=== PATIENT | male | born 1955 | race Caucasian/White ===

== ENCOUNTER 2018-01-20 01:32 | Inpatient (IN) | payer MEDICARE, OTHER ==
[2018-01-20 02:47] LABS: Basophils # (A) 0.1 k/uL (0-0.2); Basophils % (A) 1 %; Eosinophils # (A) 0.3 k/uL (0-0.7); Eosinophils % (A) 3 %; HCT 46.8 % (39.0-53.0); HGB 16.6 gm/dL (13.0-17.5); Lymphocytes # (A) 3.4 k/uL (1.0-4.8); Lymphocytes % (A) 37 %; MCH 31.5 pg (25.0-35.0); MCHC 35.4 g/dL (31.0-37.0); MCV 89.1 fL (80.0-100.0); Mean Platelet Volume 8.8; Monocytes # (A) 0.6 k/uL (0-1.0); Monocytes % (A) 6 %; Neutrophils # (A) 4.7 k/uL (1.3-7.7); Neutrophils % (A) 52 %; Platelet Count 170 k/uL (150-450); RBC 5.25 m/uL (4.30-5.90); RDW 13.1 % (11.5-15.5); WBC 9.1 k/uL (3.8-10.6)
[2018-01-20 02:55] LABS: D-Dimer 0.4 mg/L FEU (<0.60)
[2018-01-20 03:03] LABS: Partial Thromboplastin Time 25.6 sec (22.0-30.0); Prothrombin Time 10.3 sec (9.0-12.0)
[2018-01-20 03:05] LABS: Albumin 4.2 g/dL (3.5-5.0); Calcium 9.5 mg/dL (8.4-10.2); Total Bilirubin 0.8 mg/dL (0.2-1.3); Total Protein 7.7 g/dL (6.3-8.2)
[2018-01-20 03:12] LABS: Potassium 4.3 mmol/L (3.5-5.1)
[2018-01-20 03:23] LABS: Creatine Kinase MB 1.8 ng/mL (0.0-2.4)
[2018-01-20 03:27] LABS: Troponin I 0.04 ng/mL (0.000-0.034)
[2018-01-20] MEDS ORDERED: HEPARIN SODIUM,PORCINE 5,000 UNIT/ML 1 ML VIAL IV PRN (03:34)
[2018-01-20] MEDS ORDERED: HEPARIN SODIUM,PORCINE 5,000 UNIT/ML 1 ML VIAL IV ONE (03:34)
[2018-01-20] MEDS: HEPARIN SOD,PORK IN 0.45% NACL 25,000 UNIT in 0.45% NACL 1 500ML.BAG IV SCH ×2 (03:54→23:29)
[2018-01-20] MEDS ORDERED: NITROGLYCERIN SL TABS 0.4 MG TAB SUBLINGUAL PRN (05:33)
[2018-01-20] MEDS ORDERED: ERGOCALCIFEROL 50,000 UNIT CAP PO SCH (05:45)
[2018-01-20] MEDS ORDERED: HYDROcodone/APAP 10-325MG 1 EACH TAB PO ONE (06:32)
--- NOTE | 2018-01-20 07:23 | ED ---
Chest Pain HPI - General Chief Complaint: Shortness of Breath Stated Complaint: SOB Time Seen by Provider: 01/20/18 01:38 Source: patient, EMS Mode of arrival: EMS Limitations: no limitations - History of Present Illness Initial Comments: This patient is a 62-year-old man who is transferred here from [facility]. He had gone there tonight to be evaluated for chest pain. He indicates the pain had been going on for 2-3 days but did become worse tonight after some exertion. He indicates it across the bilateral upper chest, and it does radiate to his left arm. It is a tight or pressure feeling, constant, and earlier tonight it was moderate to severe, but currently the pain is gone. He had not noted relieving factors until he had some medication at the other hospital. The patient denied associated symptoms but he had been having some episodic shortness of breath for the past week or so. MD Complaint: chest pain Onset/Timin -: days(s) Onset: during rest Pain Location: left chest, right chest Pain Radiation: LUE Severity: moderate Quality: tightness Consistency: constant Improves With: nothing Worsens With: exertion Anginal Symptoms: dyspnea - Related Data Home Medications Medication Instructions Recorded Confirmed HYDROcodone/APAP 10-325MG [[place] 1 tab PO QID PRN 02/22/15 01/20/18 10-325] ALPRAZolam [Xanax] 2 mg PO TID PRN 02/23/15 01/20/18 Ergocalciferol (Vitamin D2) 50,000 unit PO Q30D 07/29/16 01/20/18 [Drisdol] Esomeprazole Magnesium [NexIUM] 20 mg PO DAILY 09/29/17 01/20/18 Gabapentin 600 mg PO BID 09/29/17 01/20/18 rOPINIRole HCL [Requip] 0.25 mg PO HS 09/29/17 01/20/18 Aspirin EC [Ecotrin] 325 mg PO DAILY 01/20/18 01/20/18 Metoprolol Tartrate [Lopressor] 25 mg PO BID 01/20/18 01/20/18 Naproxen [Naprosyn] 500 mg PO Q12HR 01/20/18 01/20/18 Previous Rx's Medication Instructions Recorded Clopidogrel [Plavix] 75 mg PO DAILY #30 tab 08/11/16 Allergies Allergy/AdvReac Type Severity Reaction Status Date / Time latex Allergy Swelling Verified 01/20/18 10:45 Review of Systems ROS Statement: Those systems with pertinent positive or pertinent negative responses have been documented in the HPI. ROS Other: All systems not noted in ROS Statement are negative. Constitutional: Denies: fever, chills Respiratory: Reports: as per HPI, dyspnea. Denies: cough, wheezes Cardiovascular: Reports: as per HPI, chest pain, dyspnea on exertion. Denies: palpitations, orthopnea, edema, syncope Gastrointestinal: Denies: abdominal pain, nausea, vomiting Genitourinary: Denies: dysuria, hematuria Musculoskeletal: Denies: back pain Skin: Denies: rash Neurological: Denies: headache, weakness, numbness Psychiatric: Reports: anxiety EKG Findings - EKG Results: EKG: interpreted by RYANNE, sinus rhythm (Rate proximally 63 bpm), normal axis - Blocks, [place], Hypertrophy, ST Abn: Repolarization changes or abnormalities: ST or T wave suggestive of ischemia (T inversions across the anterior leads V2 through V6, as well as lateral leads.) - MD, Pacemaker, Normal: Myocardial infarction: inferior MD (old age indeterminate) Past Medical History Past Medical History: Coronary Artery Disease (CAD), Chest Pain / Angina, COPD, GERD/Reflux, Hyperlipidemia, Hypertension, Musculoskeletal Disorder, Sleep Apnea /CPAP/BIPAP Additional Past Medical History / Comment(s): CHRONIC BACK PAIN, PAINFUL LT HIP W/ DROP FOOT. BRUISES EASILY. NO CPAP CURRENTLY. HEART STENTS X5, BUT NOT TAKING CV/HTN RX, RESUMED SMOKING - "IT LOWERS MY BLOOD PRESSURE." Last Myocardial Infarction Date:: UNKNOWN History of Any Multi-Drug Resistant Organisms: None Reported Past Surgical History: Back Surgery, Cholecystectomy, Coronary Bypass/CABG, Heart Catheterization With Stent, Orthopedic Surgery Additional Past Surgical History / Comment(s): Back surg x 2 with cage. Tennis elbow surg. HEART STENTS X5. Past Anesthesia/Blood Transfusion Reactions: No Reported Reaction Additional Past Anesthesia/Blood Transfusion Reaction / Comment(s): Pt received blood during CABG without reaction. Date of Last Stent Placement:: 02/24/15 Past Psychological History: Anxiety, Depression, PTSD Smoking Status: Current every day smoker Past Alcohol Use History: None Reported Past Drug Use History: None Reported - Past Family History Father Family Medical History: Coronary Artery Disease (CAD), Deep Vein Thrombosis (DVT ), GERD/Reflux, Hyperlipidemia Additional Family Medical History / Comment(s): Father of a MD in his 80's Mother Family Medical History: Coronary Artery Disease (CAD) Additional Family Medical History / Comment(s): Mother of a MD at the age of 76yrs. Sister(s) Family Medical History: Cancer General Exam Limitations: no limitations General appearance: alert, obese Head exam: Present: atraumatic, normocephalic Eye exam: Present: normal appearance. Absent: scleral icterus, conjunctival injection ENT exam: Present: normal oropharynx Neck exam: Present: normal inspection Respiratory exam: Present: normal lung sounds bilaterally. Absent: respiratory distress, wheezes, rales, rhonchi, stridor Cardiovascular Exam: Present: regular rate, normal rhythm, normal heart sounds. Absent: systolic murmur, diastolic murmur, rubs, gallop GI/Abdominal exam: Present: soft. Absent: distended, tenderness, guarding, rebound, mass Extremities exam: Present: normal inspection, normal capillary refill. Absent: pedal edema, calf tenderness Back exam: Present: normal inspection. Absent: CVA tenderness (R), CVA tenderness (L) Neurological exam: Present: alert Skin exam: Present: warm, dry, intact, normal color. Absent: rash Course Vital Signs 01/20/18 01/20/18 01/20/18 01:34 01:42 03:57 Temperature 97.0 F L Pulse Rate 66 65 Respiratory 16 18 16 Rate Blood Pressure 145/73 135/59 O2 Sat by Pulse 98 96 Oximetry 01/20/18 01/20/18 01/20/18 04:45 06:35 07:28 Temperature Pulse Rate 78 74 68 Respiratory 19 18 Rate Blood Pressure 148/82 135/74 O2 Sat by Pulse 97 98 97 Oximetry 01/20/18 01/20/18 01/20/18 10:09 12:53 15:30 Temperature 98.7 F Pulse Rate 69 80 80 Respiratory 18 16 Rate Blood Pressure 129/60 152/81 O2 Sat by Pulse 97 95 Oximetry 01/20/18 01/20/18 01/20/18 15:40 15:46 16:35 Temperature 97.1 F L Pulse Rate 85 84 97 Respiratory 18 16 Rate Blood Pressure 141/65 142/70 O2 Sat by Pulse 98 95 Oximetry Chest Pain MDM - MDM Patient is 62-year-old man transferred here for the etiology evaluation after he was seen at [facility]. The patient's repeat troponin is elevated at 0.4, and he started on heparin Critical Care Time Critical Care Time: Yes (30 minutes) Disposition Clinical Impression: Acute coronary syndrome Disposition: ADMITTED IP TO THIS HOSP Condition: Fair
[2018-01-20] MEDS: PANTOPRAZOLE 40 MG TABLET PO SCH (10:02)
[2018-01-20] MEDS: CLOPIDOGREL 75 MG TAB PO SCH (10:02)
[2018-01-20] MEDS: GABAPENTIN 300 MG CAP PO SCH ×3 (10:03→21:06)
[2018-01-20] MEDS: ASPIRIN 325 MG TAB PO SCH (10:03)
[2018-01-20] MEDS: ALPRAZolam 1 MG TAB PO PRN ×2 (10:03→21:05)
[2018-01-20] MEDS: ATORVASTATIN 80 MG TAB PO SCH ×2 (10:03→10:07)
[2018-01-20] MEDS: buPROPion SR 150 MG TABLET.ER PO SCH ×2 (10:03→20:57)
[2018-01-20] MEDS: FLUTICASONE 50MCG/SPRAY NASAL 16GM EA NOSTRIL SCH (10:04)
[2018-01-20] MEDS: NITROGLYCERIN OINT 1 INCH/GM PACKET TOPICAL SCH ×2 (10:04→21:05)
--- NOTE | 2018-01-20 10:15 | CONS ---
CONSULTATION CHIEF COMPLAINT: Chest pain. HISTORY OF PRESENT ILLNESS: Israel is a 62-year-old gentleman with history of coronary artery disease, status post CABG, status post multivessel angioplasty, who comes to the hospital complaining of interscapular discomfort that he describes it as a pressure-like sensation. The patient had a cardiac catheterization in the past that showed severe triple-vessel disease with moderate in-stent restenosis of the venous graft to LAD and occluded venous graft to the RCA and the patient went on to have venous graft thrombectomy with stent placement. This was in July of 2016. The patient was admitted to the hospital on October 15 with chest pain and ruled out for myocardial infarction and did not have any further stress test or anything. He had an echo done in 2016 that showed normal LV function. The patient at the time of my evaluation, appears chest pain-free and is hemodynamically stable. EKG shows T-wave inversions in the precordial leads. One set of troponin is slightly elevated at 0.04. PAST MEDICAL HISTORY: Significant for coronary artery disease, status post coronary artery bypass grafting. MEDICATIONS: At home include Thomas, Flonase, Nexium, Drisdol, Plavix, Lipitor Xanax, and aspirin. ALLERGIES: ALLERGIC TO LATEX. FAMILY HISTORY: Negative for premature coronary artery disease. SOCIAL HISTORY: Negative for current smoking and history of drug abuse. REVIEW OF SYSTEMS: HEENT is unremarkable. Cardiac as described above. Respiratory negative. GI negative. Genitourinary negative. Allergy/Immunology: Negative. Skin negative. Musculoskeletal negative. Derm negative. Endocrine: Negative. Constitutional: Negative. Oncological negative. Rest of the system review is not relevant. LABS: Show that the troponin is 0.04. PHYSICAL EXAM: Comfortable at rest. Vital signs are stable. There is no jugular venous distention. Carotid upstroke is normal. There is no bruit. Chest exam revealed good air entry bilaterally. Heart exam reveals first and second heart sounds. No gallop. Abdomen is soft, nontender. Exam extremities did not reveal any edema. Peripheral pulses are felt. LABORATORY DATA: Labs showed that the troponin is 0.04. Hemoglobin is 16.6. Potassium is 4.3, creatinine is 1.2. ASSESSMENT: 1. Non ST-segment elevation myocardial infarction. 2. Coronary artery disease status post coronary artery bypass grafting. 3. Status post multivessel angioplasty. 4. Hypertension. 5. Dyslipidemia. 6. Chronic back pain. PLAN: I will continue the patient on IV heparin, aspirin, statins, Plavix, nitrates. We will review his records to see why he is not on a beta dorinda and if there are no contraindications start him on a beta dorinda. The patient will undergo cardiac catheterization probably on Monday with Dr. Wiggins, his primary usability engineer unless there is change in his symptoms and if we have to do it over the weekend, we will. MMDEYANIRA / CALLI: [id number] /
[2018-01-20 10:30] LABS: Creatine Kinase MB 1.8 ng/mL (0.0-2.4); Troponin I 0.023 ng/mL (0.000-0.034)
--- NOTE | 2018-01-20 10:59 | HP ---
HISTORY AND PHYSICAL HISTORY OF PRESENT ILLNESS: This is another of many admissions for this 62-year-old white male with coronary artery disease. He developed substernal chest discomfort, but it was not associated with diaphoresis, shortness of breath, or nausea. He went to the emergency room in [facility] and was transferred here. Patient's troponin was slightly elevated. REVIEW OF SYSTEMS: He has had no syncope, palpitations, orthopnea, PND, fever, chills, cough, hemoptysis, etc. He has had no abdominal pain, nausea, vomiting, indigestion, reflux, melena, hematochezia, renal disease, etc. Past medical history, family history and personal and social histories reveal that he cannot take statins. PREVIOUS MEDICATIONS INCLUDE: 1. Naprosyn. 2. Cyclobenzaprine. 3. Vitamin D. 4. Lasix 40 once a day. 5. Plavix 75 once a day. 6. Nexium 20 mg once a day. 7. Ropinirole 0.25 at bedtime. 8. Ventolin HFA. 9. 81 mg of aspirin. 10.Fluticasone. 11.Vicodin 10 t.i.d. p.r.n. 12.Gabapentin 600 mg 4 times a day. 13.Toprol 25 mg twice a day. 14.Xanax 2 mg t.i.d. p.r.n. He has been treated in the past for hypertension, congestive heart failure, coronary artery disease, COPD and reflux. He has had a CABG and he has had 6 stents placed in July of 2016. He does continue to smoke. PHYSICAL EXAM: Blood pressure is 140/80. The pulse 60, respirations 16. He is afebrile. In general, he appeared to be well developed, well nourished, in no acute distress. Skin color is normal, skin is warm, dry. Lymph nodes are not enlarged. Head, ears, eyes, nose, mouth, and throat were normal. Neck veins are not distended. Thyroid is not enlarged. Chest is clear. Cardiac exam is normal in sinus rhythm and no murmurs or extra sounds. The abdomen is soft, nontender without any visceromegaly or masses and extremities normal. Neurologically he is intact. IMPRESSION: 1. Unstable angina pectoris. 2. History of coronary artery disease, status post coronary artery bypass grafting and numerous stents. 3. Nicotine abuse. 4. History of chronic obstructive pulmonary disease. 5. Hyperlipidemia. PLAN: 1. Bed rest. 2. IV fluids. 3. Serial EKGs and enzymes. 4. Cardiology consult. REYNALDO / CALLI: [id number] /
[2018-01-20] MEDS: HYDROcodone/APAP 10-325MG 1 EACH TAB PO SCH ×2 (11:32→18:44)
--- NOTE | 2018-01-20 13:38 | ECHOF ---
Referral Reason:ACS MEASUREMENTS -------- HEIGHT: 175.3 cm WEIGHT: 108.9 kg BP: 125/67 IVSd: 1.4 cm (0.6 - 1.1) LVIDd: 5.1 cm (3.9 - 5.3) LVPWd: 1.2 cm (0.6 - 1.1) IVSs: 1.7 cm LVIDs: 4.4 cm LVPWs: 1.2 cm LA Diam: 3.7 cm (2.7 - 3.8) LAESV Index (A-L): 31.17 ml/m Ao Diam: 3.9 cm (2.0 - 3.7) AV Cusp: 1.4 cm (1.5 - 2.6) LA Diam: 4.5 cm (2.7 - 3.8) MV EXCURSION: 13.644 mm (> 18.000) MV EF SLOPE: 45 mm/s (70 - 150) EPSS: 0.7 cm MV E Daniel: 0.44 m/s MV DecT: 208 ms MV A Daniel: 0.61 m/s MV E/A Ratio: 0.73 AR PHT: 462 ms RAP: 5.00 mmHg RVSP: 23.67 mmHg FINDINGS -------- Sinus rhythm. This was a technically adequate study. The left ventricular size is normal. There is moderate concentric left ventricular hypertrophy. O verall left ventricular systolic function is normal with, an EF between 55 - 60 %. The right ventricle is normal in size. The left atrial size is normal. LA is midly dilated 29-33ml/m2. The right atrial size is normal. The aortic valve is trileaflet, and appears structurally normal. No aortic stenosis or regurgitation. Mild mitral regurgitation is present. Mild tricuspid regurgitation present. There is no evidence of pulmonary hypertension. The right v entricular systolic pressure, as measured by Doppler, is 23.67mmHg. There is no pulmonic regurgitation present. The aortic root size is normal. There is no pericardial effusion. CONCLUSIONS -------- 1. The left ventricular size is normal. 2. There is moderate concentric left ventricular hypertrophy. 3. Overall left ventricular systolic function is normal with, an EF between 55 - 60 %. 4. LA is midly dilated 29-33ml/m2. 5. The aortic valve is trileaflet, and appears structurally normal. No aortic stenosis or regurgitati on. 6. Mild mitral regurgitation is present. 7. Mild tricuspid regurgitation present. 8. There is no evidence of pulmonary hypertension. 9. The right ventricular systolic pressure, as measured by Doppler, is 23.67mmHg. 10. There is no pulmonic regurgitation present. 11. The aortic root size is normal. 12. There is no pericardial effusion. SUPERVISOR AUDIT CLERKS: Maegan Kim RDCS
[2018-01-20 15:16] LABS: Creatine Kinase MB 1.6 ng/mL (0.0-2.4); Troponin I 0.019 ng/mL (0.000-0.034)
[2018-01-20] MEDS: ALBUTEROL NEBULIZED 2.5 MG/3 ML INHALATION PRN ×2 (15:30→21:20)
[2018-01-20] MEDS: KETOROLAC 30 MG/ML 1 ML VIAL IVP PRN (16:42)
[2018-01-20] MEDS: METOPROLOL TARTRATE 25 MG TAB PO SCH (20:58)
[2018-01-20] MEDS: NAPROXEN 250 MG TAB PO SCH (20:58)
[2018-01-20] MEDS ORDERED: NICOTINE 21MG/24HR PATCH TRANSDERM STA (21:09)
[2018-01-21] MEDS: HYDROcodone/APAP 10-325MG 1 EACH TAB PO SCH ×6 (03:13→21:20)
[2018-01-21] MEDS: NITROGLYCERIN OINT 1 INCH/GM PACKET TOPICAL SCH ×4 (03:13→23:59)
[2018-01-21] MEDS: ALBUTEROL NEBULIZED 2.5 MG/3 ML INHALATION PRN ×4 (06:14→20:03)
[2018-01-21 06:55] LABS: Basophils # (A) 0.1 k/uL (0-0.2); Basophils % (A) 1 %; Eosinophils # (A) 0.2 k/uL (0-0.7); Eosinophils % (A) 3 %; HGB 14.5 gm/dL (13.0-17.5); Lymphocytes # (A) 2.6 k/uL (1.0-4.8); Lymphocytes % (A) 39 %; MCH 29.4 pg (25.0-35.0); MCHC 32.2 g/dL (31.0-37.0); MCV 91.2 fL (80.0-100.0); Mean Platelet Volume 9.3; Monocytes # (A) 0.6 k/uL (0-1.0); Monocytes % (A) 9 %; Neutrophils # (A) 3.1 k/uL (1.3-7.7); Neutrophils % (A) 46 %; Platelet Count 149 k/uL (150-450); RBC 4.93 m/uL (4.30-5.90); RDW 13.2 % (11.5-15.5); WBC 6.8 k/uL (3.8-10.6)
[2018-01-21 07:12] LABS: Cholesterol 200 mg/dL (<200); HDL Cholesterol 33 mg/dL (40-60); Triglycerides 482 mg/dL (<150)
[2018-01-21] MEDS: KETOROLAC 30 MG/ML 1 ML VIAL IVP PRN ×2 (07:58→15:50)
[2018-01-21] MEDS: PANTOPRAZOLE 40 MG TABLET PO SCH (08:04)
[2018-01-21] MEDS: NAPROXEN 250 MG TAB PO SCH ×2 (08:04→21:21)
[2018-01-21] MEDS: METOPROLOL TARTRATE 25 MG TAB PO SCH ×2 (08:04→21:20)
[2018-01-21] MEDS: CLOPIDOGREL 75 MG TAB PO SCH (08:04)
[2018-01-21] MEDS: ATORVASTATIN 80 MG TAB PO SCH (08:05)
[2018-01-21] MEDS: buPROPion SR 150 MG TABLET.ER PO SCH ×2 (08:05→21:20)
[2018-01-21] MEDS: GABAPENTIN 300 MG CAP PO SCH ×4 (08:08→21:21)
[2018-01-21] MEDS: ALPRAZolam 1 MG TAB PO PRN ×2 (08:12→21:19)
[2018-01-21] MEDS: FLUTICASONE 50MCG/SPRAY NASAL 16GM EA NOSTRIL SCH (08:12)
[2018-01-21] MEDS ORDERED: NON-FORMULARY DRUG (Aspirin Ec 325 MG) PO SCH (09:00)
--- NOTE | 2018-01-21 13:31 | PN ---
PROGRESS NOTE 62-year-old gentleman with known CAD status post CABG is admitted to hospital with non ST-segment elevation WA and will undergo cardiac catheterization tomorrow with Dr. Wiggins. He is doing well, ambulating in the hallways without any problems. Denies chest pain or difficulty in breathing. On exam, vital signs are stable. There is no jugular venous distention. Carotid upstroke is normal. There is no bruit. Chest exam reveals good air entry bilaterally. Heart exam reveals first and second heart sounds. No gallop. No murmur. Abdomen is soft, nontender. Exam of the extremities did not reveal any edema. Peripheral pulses are felt. LABS: Show that the hemoglobin is 14.5. Potassium is 4.3, troponin is normal at 1. ASSESSMENT: Non ST-segment elevation myocardial infarction. PLAN: Patient is stable clinically. We will continue the aspirin, Lipitor, Plavix, heparin and Lopressor and cardiac cath tomorrow with Dr. Wiggins. MMODL / IJN: [id number] /
[2018-01-21] MEDS: HEPARIN SOD,PORK IN 0.45% NACL 25,000 UNIT in 0.45% NACL 1 500ML.BAG IV SCH (22:59)
[2018-01-22] MEDS: KETOROLAC 30 MG/ML 1 ML VIAL IVP PRN ×2 (04:00→15:17)
[2018-01-22] MEDS: ALPRAZolam 1 MG TAB PO PRN ×2 (05:48→18:40)
[2018-01-22] MEDS: ALBUTEROL NEBULIZED 2.5 MG/3 ML INHALATION PRN (06:08)
[2018-01-22 06:44] LABS: Basophils % (A) 1 %; Eosinophils # (A) 0.2 k/uL (0-0.7); Eosinophils % (A) 3 %; HCT 44.2 % (39.0-53.0); HGB 15.1 gm/dL (13.0-17.5); Lymphocytes # (A) 2.4 k/uL (1.0-4.8); Lymphocytes % (A) 33 %; MCHC 34.3 g/dL (31.0-37.0); MCV 90.4 fL (80.0-100.0); Mean Platelet Volume 9.2; Monocytes # (A) 0.4 k/uL (0-1.0); Monocytes % (A) 5 %; Neutrophils # (A) 4.3 k/uL (1.3-7.7); Neutrophils % (A) 57 %; Platelet Count 155 k/uL (150-450); RBC 4.89 m/uL (4.30-5.90); RDW 13.2 % (11.5-15.5); WBC 7.5 k/uL (3.8-10.6)
[2018-01-22] MEDS ORDERED: ATORVASTATIN 80 MG TAB PO STA ×2 (07:56→07:57)
[2018-01-22] MEDS ORDERED: SODIUM CHLORIDE 0.9% 1,000 ML in EMPTY BAG 1 BAG IV ONE ×2 (07:56→07:57)
[2018-01-22] MEDS ORDERED: NITROGLYCERIN SL TABS 0.4 MG TAB SUBLINGUAL PRN ×2 (07:56→07:57)
[2018-01-22] MEDS ORDERED: ASPIRIN 325 MG TAB PO STA ×2 (07:56→07:57)
[2018-01-22] MEDS ORDERED: ALPRAZolam 0.25 MG TAB PO PRN ×2 (07:56→07:57)
[2018-01-22] MEDS ORDERED: ALPRAZolam 0.5 MG TAB PO PRN ×2 (07:56→07:57)
[2018-01-22 08:43] LABS: Glucose,Whole Blood 105 mg/dL (75-99)
[2018-01-22] MEDS: NITROGLYCERIN OINT 1 INCH/GM PACKET TOPICAL SCH ×2 (08:48→21:19)
[2018-01-22] MEDS: GABAPENTIN 300 MG CAP PO SCH ×4 (09:25→21:37)
[2018-01-22] MEDS: CLOPIDOGREL 75 MG TAB PO SCH (09:25)
[2018-01-22] MEDS: buPROPion SR 150 MG TABLET.ER PO SCH ×2 (09:25→21:34)
[2018-01-22] MEDS: FLUTICASONE 50MCG/SPRAY NASAL 16GM EA NOSTRIL SCH (09:25)
[2018-01-22] MEDS: NAPROXEN 250 MG TAB PO SCH ×2 (09:26→21:34)
[2018-01-22] MEDS: METOPROLOL TARTRATE 25 MG TAB PO SCH ×2 (09:26→21:37)
[2018-01-22] MEDS: PANTOPRAZOLE 40 MG TABLET PO SCH (09:26)
[2018-01-22] MEDS: HYDROcodone/APAP 10-325MG 1 EACH TAB PO SCH ×4 (09:28→21:34)
[2018-01-22] MEDS ORDERED: LIDOCAINE 2% INJ 20 MG/ML (20 ML MDV) ONE (12:26)
[2018-01-22] MEDS ORDERED: MIDAZOLAM 2 MG/2 ML VIAL ONE (12:26)
[2018-01-22] MEDS ORDERED: IV FLUID CONTINUATION 1,000 ML IV ONE (12:33)
[2018-01-22] MEDS: MIDAZOLAM 2 MG/2 ML VIAL IV ONE ×2 (12:43→12:45)
[2018-01-22] MEDS ORDERED: LIDOCAINE 2% INJ 20 MG/ML SQ ONE (12:46)
[2018-01-22] MEDS ORDERED: fentaNYL (PF) 50 MCG/ML 2 ML AMP ONE (13:10)
[2018-01-22] MEDS: fentaNYL (PF) 50 MCG/ML 2 ML AMP IV ONE ×2 (13:12→13:41)
[2018-01-22] MEDS ORDERED: BIVALIRUDIN BOLUS 250 MG/50 ML IV ONE (13:16)
[2018-01-22] MEDS ORDERED: BIVALIRUDIN 250 MG in SODIUM CHLORIDE 0.9% 50 ML IV ONE ×2 (13:17→13:46)
[2018-01-22] MEDS ORDERED: niCARdipine 25 MG/10 ML VIAL ONE (13:24)
[2018-01-22] MEDS: NITROGLYCERIN 1000MCG/10ML SYRINGE INTRACORON ONE ×2 (13:26→13:39)
[2018-01-22] MEDS ORDERED: NITROGLYCERIN 1000MCG/10ML SYRINGE INTRAARTER ONE (13:26)
[2018-01-22] MEDS ORDERED: IOHEXOL 350 MG/ML 125ML BOTTLE INJ ONE (13:35)
[2018-01-22] MEDS ORDERED: CLOPIDOGREL 75 MG TAB ONE (13:37)
[2018-01-22] MEDS ORDERED: niCARdipine Syringe (1,000 mcg/10 mL) INTRACORON ONE (13:38)
[2018-01-22] MEDS ORDERED: ATROPINE SULFATE 0.1 MG/ML 10ML SYRINGE IV PRN (14:02)
[2018-01-22] MEDS ORDERED: RX INFO: IV CONTRAST WAS GIVEN 1 EACH MISC MISCELLANE PRN (14:02)
[2018-01-22] MEDS ORDERED: ZOLPIDEM 5 MG TAB PO PRN (14:02)
[2018-01-22] MEDS ORDERED: MAG HYDROX/AL HYDROX/SIMETH 30 ML CUP PO PRN (14:02)
[2018-01-22] MEDS ORDERED: IOPAMIDOL-370 100ML BTL INJ ONE (14:27)
[2018-01-22] MEDS ORDERED: CLOPIDOGREL 75 MG TAB PO ONE (14:27)
--- NOTE | 2018-01-22 16:56 | PN ---
PROGRESS NOTE DATE OF SERVICE: 01/21/2018. CHIEF COMPLAINT: Chest pain. HISTORY OF PRESENT ILLNESS: This gentleman is stable and awaits decision as to whether not he is to have a cardiac cath. PHYSICAL EXAM: CHEST: Clear. Cardiac exam is normal. Abdomen is soft, nontender. IMPRESSION: Chest pain with elevated troponin. PLAN: Await the recommendations from Cardiology. If he is to have a catheterization, it will be tomorrow. MMODL / IJN: [id number] /
--- NOTE | 2018-01-22 17:05 | PN ---
PROGRESS NOTE DATE OF SERVICE: 01/22/18 CHIEF COMPLAINT: Chest pain. HISTORY OF PRESENT ILLNESS: This gentleman is going today for cardiac cath and he has had no pain. PHYSICAL EXAM: CHEST: Clear. Cardiac exam is normal. The abdomen is soft, nontender. Extremities are normal. IMPRESSION: 1. Chest pain. 2. Coronary artery disease. PLAN: Cardiac cath today. MMODL / IJN: [id number] /
[2018-01-22] MEDS: ATORVASTATIN 80 MG TAB PO SCH (21:19)
[2018-01-22] MEDS: ASPIRIN 325 MG TAB PO SCH (21:19)
[2018-01-22] MEDS: SODIUM CHLORIDE 0.9% 1,000 ML IV SCH (21:19)
--- NOTE | 2018-01-23 00:11 | CC ---
CARDIAC CATHETERIZATION REPORT DATE OF SERVICE: January 22, 2018 PERFORMING PHYSICIAN: Frank Wiggins MD, intellectual property counsel. PROCEDURE PERFORMED: 1. Selective left and right coronary angiogram. 2. SVG to RCA angiogram. 3. SVG to LAD angiogram. 4. Successful stenting of the distal anastomosis of the SVG to LAD using 2.75 x 15 mm drug-eluting stent with good angiographic results. 5. Successful stenting of the mid SVG to LAD using the 3 x 5 x 15 mm Promus Premier drug-eluting stent with good angiographic results. INDICATION: This is a pleasant 62-year-old gentleman with known history of coronary artery disease and prior coronary artery bypass grafting as well as coronary artery stenting, presented to the hospital with chest discomfort and was ruled in for acute non ST elevation myocardial infarction. The last heart catheterization was performed about 3 years ago and at that point, he was found to have severe triple-vessel coronary artery disease with patent SVG to RCA and severe disease involving the SVG to LAD. At that point, the patient underwent successful stenting of the SVG to LAD with good angiographic results. He presented back to the hospital with chest discomfort and was ruled in for acute non ST elevation myocardial infarction. He was seen and evaluated by Dr. Flood, who recommended proceeding with a heart catheterization. APPROACH: Left common femoral artery. COMPLICATION: None. LEVEL OF SEDATION: Moderate with sedation length of 165 minutes. PROCEDURE DESCRIPTION: After obtaining an informed consent, the patient was brought to the cardiac laboratory scientist. The left common femoral artery was cannulated using micropuncture technique and a micropuncture wire passed easily, then I placed a 6-Uzbek sheath in the left common femoral artery. After that I did selective left and right coronary angiogram using JL4 and JR4 catheter. I did engage the SVG to RCA using multipurpose catheter. I did engage the SVG to LAD using the JR4 catheter. After that I did decide to intervene on the SVG to LAD. Please see a separate paragraph for that. SELECTIVE CORONARY ANGIOGRAM: 1. The left main is a large caliber vessel with mild disease only. 2. The left circumflex system appeared to have mild to moderate disease only. 3. The LAD is totally occluded in the proximal portion. 4. The RCA is also totally occluded in the proximal portion. CORONARY ARTERY BYPASS ANGIOGRAM: 1. The SVG to RCA is diffusely diseased up to about 80% to 90% in the proximal to midportion and then is 100% occluded in the mid to distal portion. 2. The SVG to LAD has intermediate disease in the proximal to midportion and then has a critical lesion at the distal anastomosis. 3. PCI of the SVG to LAD. Anticoagulation was initiated using Angiomax. Subsequently I did engage that 2 grafts using JR4 catheter. After using JR4 catheter. After that, I did wire the graft using a whisper wire. I did balloon angioplasty using 2.5 x 12 mm balloon and subsequently I was able to advance 2.75 x 15 mm drug- eluting stent where the stent was positioned under fluoroscopy guidance and then it was deployed under its nominal pressure was deployed under 14 atmospheres and the following angiogram showed good angiographic results. After that I did balloon angioplasty of the mid portion of the graft using 4.0 mm NC balloon. The following angiogram showed good angiographic results and after I pulled the wire down, I noticed there was haziness involving the midportion of the graft quite suspicious for dissection. I readvanced my Whisper wire across that area to the distal LAD. I tried to advance a 30 mm stent. I was unable. I was unable in spite of using a gloria wire and using a run-through wire. And also I tried to advance the stent over the gloria wire which was a run-through and I was unable. I changed the stent into a PROMUS Premier stent and in spite of that, I was unable. After that, I did re-wire the graft using a BMW wire and with a BMW wire, I was able to advance a small balloon which was 1 5 mm balloon subsequently 3 0 mm balloon. After that, I was able to deployed a 3.5 x 15 mm Promus Premier drug-eluting stent where the stent was positioned under fluoroscopy guidance and deployed under its nominal pressure with the following angiogram showing good angiographic results and the procedure was completed without any complication. CONCLUSION: 1. Severe 2 vessel coronary artery disease with occluded LAD and RCA and mild to moderate disease involving the left circumflex. 2. Subtotally occluded and diffuse disease involving the SVG to RCA. 3. Critical disease involving the SVG to LAD. 4. Successful stenting of the SVG to LAD as described above. POSTPROCEDURE MANAGEMENT: 1. Maximize medical treatment. 2. Follow up with the patient. MMODL / IJN: [id number] /
[2018-01-23] MEDS: NITROGLYCERIN OINT 1 INCH/GM PACKET TOPICAL SCH ×3 (02:14→15:48)
[2018-01-23] MEDS: SODIUM CHLORIDE 0.9% 1,000 ML IV SCH (03:57)
[2018-01-23] MEDS: HEPARIN SOD,PORK IN 0.45% NACL 25,000 UNIT in 0.45% NACL 1 500ML.BAG IV SCH (03:57)
[2018-01-23] MEDS: KETOROLAC 30 MG/ML 1 ML VIAL IVP PRN ×2 (04:19→15:49)
[2018-01-23] MEDS: ALBUTEROL NEBULIZED 2.5 MG/3 ML INHALATION PRN ×3 (04:55→13:06)
[2018-01-23 06:47] LABS: Calcium 9.2 mg/dL (8.4-10.2); Potassium 4.7 mmol/L (3.5-5.1)
[2018-01-23 07:05] LABS: Basophils % (A) 1 %; Eosinophils # (A) 0.2 k/uL (0-0.7); Eosinophils % (A) 3 %; HCT 40.8 % (39.0-53.0); HGB 13.8 gm/dL (13.0-17.5); Lymphocytes # (A) 2.4 k/uL (1.0-4.8); Lymphocytes % (A) 32 %; MCH 30.8 pg (25.0-35.0); MCHC 33.8 g/dL (31.0-37.0); MCV 91.1 fL (80.0-100.0); Mean Platelet Volume 8.6; Monocytes # (A) 0.5 k/uL (0-1.0); Monocytes % (A) 7 %; Neutrophils # (A) 4.1 k/uL (1.3-7.7); Neutrophils % (A) 54 %; Platelet Count 149 k/uL (150-450); RBC 4.48 m/uL (4.30-5.90); RDW 13.4 % (11.5-15.5); WBC 7.5 k/uL (3.8-10.6)
[2018-01-23 07:51] VITALS: RESP 16
[2018-01-23] MEDS: HYDROcodone/APAP 10-325MG 1 EACH TAB PO SCH ×2 (08:04→12:07)
[2018-01-23] MEDS: ASPIRIN 325 MG TAB PO SCH (08:06)
[2018-01-23] MEDS: FLUTICASONE 50MCG/SPRAY NASAL 16GM EA NOSTRIL SCH (08:06)
[2018-01-23] MEDS: buPROPion SR 150 MG TABLET.ER PO SCH (08:06)
[2018-01-23] MEDS: ATORVASTATIN 80 MG TAB PO SCH (08:06)
[2018-01-23] MEDS: GABAPENTIN 300 MG CAP PO SCH ×2 (08:07→12:06)
[2018-01-23] MEDS: CLOPIDOGREL 75 MG TAB PO SCH (08:07)
[2018-01-23] MEDS: METOPROLOL TARTRATE 25 MG TAB PO SCH (08:07)
[2018-01-23] MEDS: NAPROXEN 250 MG TAB PO SCH (08:07)
[2018-01-23] MEDS: PANTOPRAZOLE 40 MG TABLET PO SCH (08:08)
[2018-01-23 11:12] VITALS: BMI 38.5
[2018-01-23 15:25] VITALS: BP 126/68; PULSE 96; TEMP 97.6
--- NOTE | 2018-01-23 15:34 | P.PN ---
Subjective Progress Note Date: 01/23/18 This is a pleasant 62-year-old gentleman with known history of CAD, prior coronary artery bypass grafting as well as coronary artery stenting. Presented to the hospital with chest discomfort and was ruled in for an acute non-ST elevation FL. He subsequently underwent heart catheterization by Dr. Wiggins and was found to have totally occluded and diffuse disease involving the SVG to the R the CA as well as critical disease involving the SVG to the LAD. He subsequently underwent successful stenting of SVG to LAD 2. Upon examination, patient is resting comfortably in bed. He is feeling well. He denies complaints of chest discomfort, back discomfort, shortness of breath, dizziness or lightheadedness. His vital signs are stable and laboratory values show stable renal function. Objective - Vital Signs Vital signs: Vital Signs Temp 97.6 F 01/23/18 15:23 Pulse 96 01/23/18 15:23 Resp 16 01/23/18 15:23 BP 126/68 01/23/18 15:23 Pulse Ox 97 01/23/18 15:23 Intake & Output 01/22/18 01/23/18 01/23/18 18:59 06:59 18:59 Intake Total 343 480 480 Output Total 600 Balance 343 -120 480 Weight 118.2 kg 118.2 kg Intake: IV 343 Oral 480 480 Output: Urine 600 Other: Voiding Method Toilet Urinal # Voids 1 2 # Bowel Movements 0 - Exam PHYSICAL EXAMINATION: HEENT: Head is atraumatic, normocephalic. Pupils equal, round. Neck is supple. There is no elevated jugular venous pressure. HEART EXAMINATION: Heart sounds regular, S1 and S2 normal. No murmur or gallop heard. CHEST EXAMINATION: Lungs are clear to auscultation and precussion. No chest wall tenderness is noted on palpation or with deep breathing. ABDOMEN: Soft, nontender. Bowel sounds are heard. No organomegaly noted. EXTREMITIES: 2+ peripheral pulses with no evidence of peripheral edema and no calf tenderness noted. Left femoral puncture site soft without ecchymosis or hematoma. NEUROLOGIC patient is awake, alert and oriented x3. . - Labs CBC & Chem 7: 01/23/18 06:48 01/23/18 05:46 Labs: Abnormal Lab Results - Last 24 Hours (Table) 03/27/18 03/27/18 Range/Units 05:46 06:48 Plt Count 149 L (150-450) k/uL Sodium 135 L (137-145) mmol/L BUN 21 H (9-20) mg/dL Glucose 107 H (74-99) mg/dL Assessment and Plan Assessment: #1 non-ST segment elevation FL, status post stenting of the SVG to the LAD #2 known CAD with prior CABG #3 hypertension #4 dyslipidemia #5 chronic back pain Plan: From cardiology's perspective, patient may be discharged home and follow up with Dr. Ni in the office in about a week. Continue aspirin, Lipitor, Plavix and Lopressor. The above dictated assessment and findings were discussed with signing physician. The impression and plan of care have been directed as dictated. La Padron, Nurse Practitioner, acting as scribe for signing physician.
--- NOTE | 2018-01-23 19:40 | DS ---
DISCHARGE SUMMARY CHIEF COMPLAINT: Chest pain. HISTORY OF PRESENT ILLNESS AND PHYSICAL EXAMINATION: Details of this man's history and physical can be found in the initial workup. LABORATORY STUDIES: While he was in the hospital he had laboratory studies, details of which can be found in the laboratory section of his chart. COURSE IN THE HOSPITAL: After admission he was placed on bedrest, started on intravenous fluids and he was seen by Cardiology. He was ultimately taken for a cardiac catheterization, where 3 stents were placed. Postoperatively he did well. It was felt that he could go home, and he will follow up in the office in several days. FINAL DIAGNOSES: 1. Acute myocardial infarction. 2. Unstable angina pectoris. 3. Coronary artery disease. OPERATIONS: Cardiac catheterization and stent placement. CONSULTATION: Cardiology. He is improved. REYNALDO / NATHALYN: [id number] /
== END 2018-01-23 16:40 | disposition home or self-care (01) | DRG 247 ==
LOC: EC 01:32 → 6SEL 05:33
PROVIDERS: ADMIT Family Medicine; ATTEND Family Medicine
PROC: B2131ZZ Fluoroscopy of Multiple Coronary Artery Bypass Grafts using Low Osmolar Contrast (ICD-10-PCS; 2018-01-22)
PROC: 027035Z Dilation of Coronary Artery, One Artery with Two Drug-eluting Intraluminal Devices, Percutaneous Approach (ICD-10-PCS; principal; 2018-01-22 08:30)
PROC: B2111ZZ Fluoroscopy of Multiple Coronary Arteries using Low Osmolar Contrast (ICD-10-PCS; 2018-01-22 08:30)
DX: I21.4 Non-ST elevation (NSTEMI) myocardial infarction (principal); T82.855A Stenosis of coronary artery stent, initial encounter; I25.82 Chronic total occlusion of coronary artery; Z95.1 Presence of aortocoronary bypass graft; E78.5 Hyperlipidemia, unspecified; K21.9 Gastro-esophageal reflux disease without esophagitis; I25.110 Atherosclerotic heart disease of native coronary artery with unstable angina pectoris; I10 Essential (primary) hypertension; J44.9 Chronic obstructive pulmonary disease, unspecified; G47.30 Sleep apnea, unspecified; F17.200 Nicotine dependence, unspecified, uncomplicated; F41.9 Anxiety disorder, unspecified; F32.9 Major depressive disorder, single episode, unspecified; F43.10 Post-traumatic stress disorder, unspecified; G89.29 Other chronic pain; M21.372 Foot drop, left foot; M54.9 Dorsalgia, unspecified; M25.552 Pain in left hip; Z79.02 Long term (current) use of antithrombotics/antiplatelets; Z79.82 Long term (current) use of aspirin; Z79.899 Other long term (current) drug therapy; Z79.1 Long term (current) use of non-steroidal anti-inflammatories (NSAID); Z95.5 Presence of coronary angioplasty implant and graft; Z90.49 Acquired absence of other specified parts of digestive tract; Z98.1 Arthrodesis status; Z71.6 Tobacco abuse counseling; Z91.040 Latex allergy status; Z82.49 Family history of ischemic heart disease and other diseases of the circulatory system; Y84.0 Cardiac catheterization as the cause of abnormal reaction of the patient, or of later complication, without mention of misadventure at the time of the procedure
CPT/HCPCS: 36415; 80048; 80053; 80061; 82550; 82553; 83880; 84484; 85025; 85379; 85610; 85730; 93005; 93306; 93458; 94640; 96365; 96366; 96376; 99291

== ENCOUNTER 2018-06-10 23:47 | Observation (INO) | payer MEDICARE, OTHER ==
--- NOTE | 2018-06-10 23:50 | ED ---
General Adult HPI - General Stated complaint: Chest Pain Time Seen by Provider: 06/10/18 23:50 - History of Present Illness Initial comments: Israel Simmons is a 63-year-old male with a significant history of coronary artery disease with stenting 7 times in the past he presents the emergency department today as a transfer from an outside facility for evaluation of chest pain. Patient reports that he is having a stabbing right-sided chest pain that radiates to his right shoulder and down his right arm, he states that this pain is identical in nature to previous episodes of acute coronary syndrome. Does report that he underwent a chemical stress test last week, he states that during the stress test he was given medication which made his heart race and had caused some chest pain. He reports that he has not felt well since having the stress test. The patient denies any injury to the right shoulder or any recent heavy lifting or strenuous activity that would've precipitated any musculoskeletal chest pain. - Related Data Home Medications Medication Instructions Recorded Confirmed HYDROcodone/APAP 10-325MG [[place] 1 tab PO TID 02/22/15 06/11/18 10-325] ALPRAZolam [Xanax] 2 mg PO TID PRN 02/23/15 06/11/18 Ergocalciferol (Vitamin D2) 50,000 unit PO Q30D 07/29/16 06/11/18 [Drisdol] Esomeprazole Magnesium [NexIUM] 20 mg PO DAILY 09/29/17 06/11/18 Gabapentin 600 mg PO QID 09/29/17 06/11/18 rOPINIRole HCL [Requip] 0.25 mg PO HS 09/29/17 06/11/18 Aspirin EC [Ecotrin] 325 mg PO DAILY 01/20/18 06/11/18 Metoprolol Tartrate [Lopressor] 25 mg PO BID 01/20/18 06/11/18 Naproxen [Naprosyn] 500 mg PO Q12HR PRN 01/20/18 06/11/18 Albuterol Inhaler [Ventolin Hfa 90 mcg INHALATION QID PRN 06/11/18 06/11/18 Inhaler] Cyclobenzaprine HCl 10 mg PO TID 06/11/18 06/11/18 Diclofenac Sodium [Voltaren Gel] 2 gram TOPICAL DAILY PRN 08/13/18 08/13/18 Fenofibrate Nanocrystallized 48 mg PO DAILY 06/11/18 06/11/18 [Fenofibrate] Fluticasone Nasal [place] [Flonase 50 mcg NASAL DAILY 06/11/18 06/11/18 Nasal [place]] Fluticasone Nasal [place] [Flonase 50 mcg NASAL DAILY 06/11/18 06/11/18 Nasal [place]] Furosemide [Lasix] 40 mg PO DAILY 06/11/18 06/11/18 Pravastatin Sodium [Pravachol] 20 mg PO DAILY 06/11/18 06/11/18 Previous Rx's Medication Instructions Recorded Clopidogrel [Plavix] 75 mg PO DAILY #30 tab 08/11/16 Allergies Allergy/AdvReac Type Severity Reaction Status Date / Time latex Allergy Swelling Verified 01/20/18 10:45 Review of Systems ROS Statement: Those systems with pertinent positive or pertinent negative responses have been documented in the HPI. ROS Other: All systems not noted in ROS Statement are negative. Past Medical History Past Medical History: Coronary Artery Disease (CAD), Chest Pain / Angina, COPD, GERD/Reflux, Hyperlipidemia, Hypertension, Musculoskeletal Disorder, Sleep Apnea /CPAP/BIPAP Additional Past Medical History / Comment(s): CHRONIC BACK PAIN, PAINFUL LT HIP W/ DROP FOOT. BRUISES EASILY. NO CPAP CURRENTLY. HEART STENTS X5, BUT NOT TAKING CV/HTN RX, RESUMED SMOKING - "IT LOWERS MY BLOOD PRESSURE." Last Myocardial Infarction Date:: UNKNOWN History of Any Multi-Drug Resistant Organisms: None Reported Past Surgical History: Back Surgery, Cholecystectomy, Coronary Bypass/CABG, Heart Catheterization With Stent, Orthopedic Surgery Additional Past Surgical History / Comment(s): Back surg x 2 with cage. Tennis elbow surg. HEART STENTS X5. Past Anesthesia/Blood Transfusion Reactions: No Reported Reaction Additional Past Anesthesia/Blood Transfusion Reaction / Comment(s): Pt received blood during CABG without reaction. Date of Last Stent Placement:: 02/24/15 Past Psychological History: Anxiety, Depression, PTSD Smoking Status: Current every day smoker Past Alcohol Use History: None Reported Past Drug Use History: None Reported - Past Family History Father Family Medical History: Coronary Artery Disease (CAD), Deep Vein Thrombosis (DVT ), GERD/Reflux, Hyperlipidemia Additional Family Medical History / Comment(s): Father of a MN in his 80's Mother Family Medical History: Coronary Artery Disease (CAD) Additional Family Medical History / Comment(s): Mother of a MN at the age of 76yrs. Sister(s) Family Medical History: Cancer General Exam General appearance: alert, in no apparent distress Head exam: Present: atraumatic, normocephalic Eye exam: Present: normal appearance, PERRL ENT exam: Present: normal exam Neck exam: Present: normal inspection Respiratory exam: Absent: respiratory distress Cardiovascular Exam: Present: regular rate, normal rhythm GI/Abdominal exam: Present: soft. Absent: distended Rectal exam: Present: deferred Extremities exam: Present: full ROM. Absent: pedal edema Neurological exam: Present: alert, oriented X3 Psychiatric exam: Present: normal affect, normal mood Skin exam: Present: warm, dry, intact Course Vital Signs 06/10/18 23:49 Pulse Rate 64 Respiratory 16 Rate Blood Pressure 159/80 O2 Sat by Pulse 98 Oximetry Medical Decision Making - Medical Decision Making Patient was seen and evaluated, history was obtained from the patient and review of medical record from outside hospital With right-sided chest pain which she describes as similar to previous episodes of ACS Patient with significant coronary artery disease history Received aspirin prior to arrival Chest pain-free upon arrival Labs and EKG were ordered upon arrival Patient is sinus bradycardia with a rate of 56, normal axis, normal intervals, IA is 162, QRS is 94, QTC is 457 there are no acute ST elevations or depressions. Patient care was discussed with patient's primary care physician Dr. Gee who accepts the patient to his service with consult to cardiology for chest pain Orders were placed Disposition Clinical Impression: Chest pain Disposition: ADMITTED IP TO THIS HOSP Decision Time: 00:02
[2018-06-10 23:53] VITALS: RESP 16
[2018-06-11] MEDS ORDERED: NALOXONE 0.4 MG/ML 1 ML VIAL IV PRN (00:03)
[2018-06-11 00:33] LABS: Partial Thromboplastin Time 50.4 sec (22.0-30.0); Prothrombin Time 10.3 sec (9.0-12.0)
[2018-06-11] MEDS: METOPROLOL TARTRATE 25 MG TAB PO SCH ×2 (03:19→10:01)
[2018-06-11 08:15] VITALS: BP 118/56; PULSE 60; TEMP 97.9
--- NOTE | 2018-06-11 08:52 | P.CRDCN ---
History of Present Illness Consult date: 06/11/18 Chief complaint: Right back pain History of present illness: This is a pleasant 63 year old male patient was seen in the office as an outpatient with history of coronary artery disease and prior coronary artery that was grafting as well as coronary artery stenting presented to the hospital complaining of chest discomfort. The patient was in his usual state of health yesterday when he developed discomfort mainly on the right side of the back. No chest pain or chest discomfort. No shortness of breath. No dizziness or lightheadedness and no nausea or vomiting and no syncope. He presented initially to the emergency room at [facility] and he was transferred to [facility] emergency room. The patient continues to be pain-free. The cardiac enzymes were checked and came in to be unremarkable. The chest x-ray did not show any acute abnormalities. The patient expressed the feeling that he was to go home. I would get the patient up and around and if he is pain free he might be able to be discharged home and I'll follow-up on the office as an outpatient. Past Medical History Past Medical History: Coronary Artery Disease (CAD), Chest Pain / Angina, COPD, GERD/Reflux, Hyperlipidemia, Hypertension, Musculoskeletal Disorder, Sleep Apnea /CPAP/BIPAP Additional Past Medical History / Comment(s): CHRONIC BACK PAIN, PAINFUL LT HIP W/ DROP FOOT. BRUISES EASILY. NO CPAP CURRENTLY. HEART STENTS X5, BUT NOT TAKING CV/HTN RX, RESUMED SMOKING - "IT LOWERS MY BLOOD PRESSURE." Last Myocardial Infarction Date:: UNKNOWN History of Any Multi-Drug Resistant Organisms: None Reported Past Surgical History: Back Surgery, Cholecystectomy, Coronary Bypass/CABG, Heart Catheterization With Stent, Orthopedic Surgery Additional Past Surgical History / Comment(s): Back surg x 2 with cage. Tennis elbow surg. HEART STENTS X5. Past Anesthesia/Blood Transfusion Reactions: No Reported Reaction Additional Past Anesthesia/Blood Transfusion Reaction / Comment(s): Pt received blood during CABG without reaction. Date of Last Stent Placement:: 02/24/15 Past Psychological History: Anxiety, Depression, PTSD Smoking Status: Current every day smoker Past Alcohol Use History: None Reported Past Drug Use History: None Reported - Past Family History Father Family Medical History: Coronary Artery Disease (CAD), Deep Vein Thrombosis (DVT ), GERD/Reflux, Hyperlipidemia Additional Family Medical History / Comment(s): Father of a MS in his 80's Mother Family Medical History: Coronary Artery Disease (CAD) Additional Family Medical History / Comment(s): Mother of a MS at the age of 76yrs. Sister(s) Family Medical History: Cancer Medications and Allergies Home Medications Medication Instructions Recorded Confirmed Type HYDROcodone/APAP 10-325MG [[place] 1 tab PO TID PRN 02/22/15 06/11/18 History 10-325] ALPRAZolam [Xanax] 2 mg PO BID PRN 02/23/15 06/11/18 History Ergocalciferol (Vitamin D2) 50,000 unit PO Q30D 07/29/16 06/11/18 History [Drisdol] Clopidogrel [Plavix] 75 mg PO DAILY #30 tab 08/11/16 06/11/18 Rx Esomeprazole Magnesium [NexIUM] 20 mg PO DAILY 09/29/17 06/11/18 History Gabapentin 600 mg PO QID 09/29/17 06/11/18 History rOPINIRole HCL [Requip] 0.25 mg PO HS 09/29/17 06/11/18 History Aspirin EC [Ecotrin] 325 mg PO DAILY 01/20/18 06/11/18 History Metoprolol Tartrate [Lopressor] 25 mg PO BID 01/20/18 06/11/18 History Naproxen [Naprosyn] 500 mg PO Q12HR PRN 01/20/18 06/11/18 History ALPRAZolam [Xanax] 2 mg PO HS 06/11/18 06/11/18 History Albuterol Inhaler [Ventolin Hfa 1 - 2 puff INHALATION RT-QID PRN 06/11/18 History Inhaler] Cyclobenzaprine HCl 10 mg PO TID PRN 06/11/18 06/11/18 History Diclofenac Sodium [Voltaren Gel] 2 gram TOPICAL DAILY PRN 06/11/18 06/11/18 History Fenofibrate Nanocrystallized 48 mg PO DAILY 06/11/18 06/11/18 History [Fenofibrate] Fluticasone Nasal [place] [Flonase 1 spray EA NOSTRIL DAILY 06/11/18 06/11/18 History Nasal [place]] Furosemide [Lasix] 40 mg PO DAILY 06/11/18 06/11/18 History Pravastatin Sodium [Pravachol] 20 mg PO HS 06/11/18 06/11/18 History Allergies Allergy/AdvReac Type Severity Reaction Status Date / Time latex Allergy Swelling Verified 06/11/18 08:05 atorvastatin [From Lipitor] AdvReac JOINT PAIN Verified 06/11/18 08:05 Physical Exam Vitals: Vital Signs Temp Pulse Resp BP Pulse Ox 06/11/18 08:12 97.9 F 60 16 118/56 97 06/11/18 07:09 68 16 140/66 95 06/11/18 03:21 63 16 142/65 98 06/10/18 23:49 64 16 159/80 98 Intake and Output 06/10/18 06/11/18 06/11/18 22:59 06:59 14:59 Other: Weight 106.141 kg - Constitutional General appearance: no acute distress - Respiratory Respiratory: bilateral: CTA - Cardiovascular Rhythm: regular Heart sounds: normal: S1, S2 Results Cardiac Enzymes 06/11/18 Range/Units 00:06 Troponin I <0.012 (0.000-0.034) ng/mL Coagulation 06/11/18 Range/Units 00:06 PT 10.3 (9.0-12.0) sec APTT 50.4 H (22.0-30.0) sec Current Medications Generic Name Dose Route Start Last Admin Trade Name Freq PRN Reason Stop Dose Admin Clopidogrel Bisulfate 75 mg 06/11/18 09:00 Plavix PO DAILY ELIANA Metoprolol Tartrate 25 mg 06/11/18 01:17 06/11/18 03:19 Lopressor PO 25 mg BID ELIANA Administration Naloxone HCl 0.2 mg 06/11/18 00:03 Narcan IV Q2M PRN Opioid Reversal Intake and Output 06/10/18 06/11/18 06/11/18 22:59 06:59 14:59 Other: Weight 106.141 kg Assessment and Plan Assessment: Assessment #1 atypical chest discomfort #2 known CAD and prior CABG and stenting #3 hypertension #4 dyslipidemia Plan #1 the patient was ruled out for acute coronary event #2 he expressed the wishes he wants to go home. I feel that the patient can be discharged home. #3 I will follow-up with the patient as an outpatient. Thank you for allowing us participate in his care.
[2018-06-11] MEDS ORDERED: CLOPIDOGREL 75 MG TAB PO SCH (09:00)
[2018-06-11] MEDS ORDERED: HYDROcodone/APAP 10-325MG 1 EACH TAB PO ONE (10:15)
--- NOTE | 2018-06-11 18:57 | HP ---
HISTORY AND PHYSICAL CHIEF COMPLAINT: Chest pain. HISTORY OF PRESENT ILLNESS: This is another of many admissions for this 63-year-old white male with severe coronary artery disease, hypertension, nicotine abuse, who was transferred in from an outside hospital where he presented with angina. He came to the emergency room here with no EKG changes or elevation of his troponin. He was admitted for observation. REVIEW OF SYSTEMS: He had slight diaphoresis and shortness of breath. Review of systems was otherwise unremarkable, with no syncope, focal neurologic problems, cough, hemoptysis, orthopnea, PND, syncope, abdominal pain, nausea, vomiting, GI or complaints, etc. Past medical history, family history, and personal and social histories are otherwise unremarkable. He cannot take Pravachol or Lipitor. He is on aspirin, Flexeril, gabapentin, Voltaren, naproxen, Ventolin, fluticasone, fenofibrate, vitamin D, Lasix, Plavix, Nexium, Ropinirole, Glenvil, Toprol and Xanax. He has had a long history of atherosclerotic cardiovascular problems, including hypertension and congestive heart failure. He continues to smoke. PHYSICAL EXAMINATION: Blood pressure is 140/90 with pulse of 88, respirations of 16. He is afebrile. In general he appeared to be well developed, well nourished, in no acute distress. Skin color is normal. Skin is warm and dry. Lymph nodes are not enlarged. Head, ears, eyes, nose, mouth and throat are normal. Neck veins are not distended. Thyroid is not enlarged. Chest is clear. Cardiac exam is normal. The abdomen is soft, nontender. EXTREMITIES: Normal. Neurologically he is intact. IMPRESSION: 1. Unstable angina pectoris. 2. Coronary artery disease. 3. Hypertension. 4. Chronic obstructive pulmonary disease. 5. Atherosclerotic cardiovascular disease. PLAN: 1. Bed rest. 2. IV fluids. 3. Serial EKGs and enzymes. 4. MMODL / IJN: [id number] /
--- NOTE | 2018-06-11 20:24 | DS ---
DISCHARGE SUMMARY CHIEF COMPLAINT: Chest pain. HISTORY OF PRESENT ILLNESS AND PHYSICAL EXAM: Details of this man's history and physical can be found in the initial workup. LABORATORY STUDIES: Laboratories studies can be found in the laboratory section of his record. Cardiac enzymes and EKGs remained stable. COURSE IN HOSPITAL: After admission, he was placed in bedrest in the emergency room as an observation. Enzymes were normal and it was felt he could go home. He will go home on his usual diet and medication, activity and be seen in the office in 24 hours. FINAL DIAGNOSES: 1. Unstable angina pectoris. 2. Hypertension. 3. Coronary artery disease. 4. Chronic obstructive pulmonary disease. OPERATIONS: None. CONSULTATIONS: None. She is improved. MMODL / IJN: [id number] /
== END 2018-06-11 10:46 | disposition home or self-care (01) ==
LOC: EC 23:47 → 3OBS 06-11 00:02
PROVIDERS: ADMIT Family Medicine; ATTEND Family Medicine
DX: I25.110 Atherosclerotic heart disease of native coronary artery with unstable angina pectoris (principal); I11.0 Hypertensive heart disease with heart failure; I50.9 Heart failure, unspecified; J44.9 Chronic obstructive pulmonary disease, unspecified; K21.9 Gastro-esophageal reflux disease without esophagitis; G47.30 Sleep apnea, unspecified; Z99.89 Dependence on other enabling machines and devices; E78.5 Hyperlipidemia, unspecified; F17.200 Nicotine dependence, unspecified, uncomplicated; G89.29 Other chronic pain; M54.9 Dorsalgia, unspecified; M25.552 Pain in left hip; M21.379 Foot drop, unspecified foot; F43.10 Post-traumatic stress disorder, unspecified; F41.9 Anxiety disorder, unspecified; F32.9 Major depressive disorder, single episode, unspecified; Z79.82 Long term (current) use of aspirin; Z79.02 Long term (current) use of antithrombotics/antiplatelets; Z79.891 Long term (current) use of opiate analgesic; Z79.51 Long term (current) use of inhaled steroids; Z79.899 Other long term (current) drug therapy; Z91.040 Latex allergy status; Z88.8 Allergy status to other drugs, medicaments and biological substances; Z95.5 Presence of coronary angioplasty implant and graft; Z90.49 Acquired absence of other specified parts of digestive tract; Z95.1 Presence of aortocoronary bypass graft; Z82.49 Family history of ischemic heart disease and other diseases of the circulatory system; Z83.2 Family history of diseases of the blood and blood-forming organs and certain disorders involving the immune mechanism; Z83.79 Family history of other diseases of the digestive system; Z83.49 Family history of other endocrine, nutritional and metabolic diseases; Z80.9 Family history of malignant neoplasm, unspecified
CPT/HCPCS: 99285 ×2; 93005; 84484; 85610; 85730; G0378

== ENCOUNTER → 2018-12-18 | Day surgery (SDC) | payer MEDICARE, OTHER ==
[2018-12-14 15:20] VITALS: BMI 34.0
[~2018-12-18] MED LIST: ALPRAZolam 0.25 MG TAB PO PRN; ALPRAZolam 0.5 MG TAB PO PRN; ASPIRIN 325 MG TAB PO ONE; HYDROcodone/APAP 10-325MG 1 EACH TAB ONE; HYDROcodone/APAP 10-325MG 1 EACH TAB PO ONE; HYDROcodone/APAP 10-325MG 1 EACH TAB PO PRN; IOPAMIDOL-370 150ML BTL INJ ONE; LIDOCAINE 1% INJ 10MG/ML (20 ML MDV) SQ ONE; MIDAZOLAM 2 MG/2 ML VIAL IVP ONE; NITROGLYCERIN SL TABS 0.4 MG TAB SUBLINGUAL PRN; RX INFO: IV CONTRAST WAS GIVEN 1 EACH MISC MISCELLANE PRN; SODIUM CHLORIDE 0.9% 1,000 ML IV SCH; SODIUM CHLORIDE 0.9% 1,000 ML in EMPTY BAG 1 BAG IV ONE; fentaNYL (PF) 50 MCG/ML 2 ML AMP ONE
[2018-12-18 08:38] LABS: Basophils # (A) 0.1 k/uL (0-0.2); Basophils % (A) 1 %; Eosinophils # (A) 0.2 k/uL (0-0.7); Eosinophils % (A) 2 %; HCT 48.9 % (39.0-53.0); HGB 16.1 gm/dL (13.0-17.5); Lymphocytes # (A) 3.3 k/uL (1.0-4.8); Lymphocytes % (A) 44 %; MCH 30.5 pg (25.0-35.0); MCHC 32.9 g/dL (31.0-37.0); MCV 92.9 fL (80.0-100.0); Mean Platelet Volume 7.7; Monocytes # (A) 0.4 k/uL (0-1.0); Monocytes % (A) 5 %; Neutrophils # (A) 3.5 k/uL (1.3-7.7); Neutrophils % (A) 46 %; Platelet Count 206 k/uL (150-450); RBC 5.26 m/uL (4.30-5.90); RDW 13.5 % (11.5-15.5); WBC 7.6 k/uL (3.8-10.6)
[2018-12-18 08:44] LABS: Calcium 9.5 mg/dL (8.4-10.2)
[2018-12-18] MEDS: fentaNYL (PF) 50 MCG/ML 2 ML AMP IVP ONE ×3 (09:56→10:50)
--- NOTE | 2018-12-18 11:22 | CC ---
CARDIAC CATHETERIZATION REPORT DATE OF SERVICE: December 18, 2018. PERFORMING PHYSICIAN: Frank Wiggins MD, gas pump attendant. PROCEDURE PERFORMED: 1. Selective left and right coronary angiogram. 2. SVG to LAD angiogram. 3. SVG to RCA angiogram. 4. Left heart catheterization. INDICATION: This is a pleasant 63-year-old gentleman who I follow in the office as an outpatient with known history of coronary artery disease with the last heart catheterization was performed on December of 2017 in the setting of unstable angina. At that point, the patient was found to have severe triple-vessel coronary artery disease with severe disease involving the SVG to LAD, which was stented at that point, and diffuse disease involving the SVG to right coronary artery. At that point, the patient underwent stenting of the SVG to LAD with good angiographic results. Lately, he has been experiencing intermittent episodes of chest discomfort concerning for angina. A heart catheterization was advised. APPROACH: Left common femoral artery. COMPLICATION: None. LEVEL OF SEDATION: Moderate with sedation length of 22 minutes. PROCEDURE DESCRIPTION: After obtaining an informed consent, the patient was brought to the cardiac stores laborer. The left common femoral artery was cannulated using micropuncture technique, the micropuncture wire passed easily then I placed a 6-Portuguese sheath in the left common femoral artery. After that, I did selective left and right coronary angiogram using JL4 and JR4 catheters. The SVG to LAD angiogram was performed using the JR4 catheter. The SVG to RCA was performed using multipurpose catheter. Left heart catheterization was performed using 6-Portuguese pigtail catheter. The procedure was completed without any complication. SELECTIVE CORONARY ANGIOGRAM: 1. The left main appeared to be angiographically normal. It bifurcates into left circumflex, ramus intermedius, and left anterior descending artery. 2. The left circumflex is a large caliber vessel and it is a nondominant vessel. The ostial left circumflex appeared to have a tight lesion in the range of 70%. This is involving the first obtuse marginal branch which is a high OM branch which appeared to have an ostial lesion appeared to be in the range of 70% to 80%. 3. The ramus intermedius appeared to be a medium caliber vessel with an ostial lesion appeared to be in the range of 70% to 80%. 4. The LAD is 100% occluded by the ostium. 5. The right coronary artery is 100% occluded by the ostium as well. CORONARY BYPASSES ANGIOGRAM: 1. The SVG to LAD has lesion, which seems to be in-stent restenosis appeared to be in the range of 60% to 70%. 2. The SVG to right coronary artery is diffusely diseased up to 100% . HEMODYNAMICS: The left ventricular end-diastolic pressure was 27 mmHg without significant gradient across the aortic valve. CONCLUSION: 1. Severe triple-vessel coronary artery disease. 2. Intermediate to severe disease involving the SVG to LAD. The disease is in-stent restenosis with multiple layers of stent at that segment. 3. Occluded SVG to right coronary artery. 4. The left circumflex and ramus intermedius are unprotected. Both have severe disease. POSTPROCEDURE MANAGEMENT: 1. At this point, I did recommend maximized medical treatment and add oral nitrate as well as Ranexa to the current medical regimen. 2. If the patient continues to have chest discomfort, I am going to refer the patient for evaluation of coronary artery bypass grafting, which is going to be redo CABG. 3. If the patient turned to be high risk for the surgery and continues to be symptomatic I will consider doing a PCI of the patient. MMODL / IJN: [id number] /
[2018-12-18 14:31] VITALS: RESP 16
[2018-12-18 16:51] VITALS: BP 152/76; PULSE 69
== END ==
LOC: CATHCVL 07:24
PROVIDERS: ATTEND Internal Medicine Interventional Cardiology
DX: I25.110 Atherosclerotic heart disease of native coronary artery with unstable angina pectoris (principal); I25.700 Atherosclerosis of coronary artery bypass graft(s), unspecified, with unstable angina pectoris; I25.82 Chronic total occlusion of coronary artery; T82.855A Stenosis of coronary artery stent, initial encounter; Z95.5 Presence of coronary angioplasty implant and graft; Z95.1 Presence of aortocoronary bypass graft; I10 Essential (primary) hypertension; E78.5 Hyperlipidemia, unspecified; E78.1 Pure hyperglyceridemia; E78.00 Pure hypercholesterolemia, unspecified; I73.9 Peripheral vascular disease, unspecified; F17.210 Nicotine dependence, cigarettes, uncomplicated; Z82.49 Family history of ischemic heart disease and other diseases of the circulatory system; Z79.1 Long term (current) use of non-steroidal anti-inflammatories (NSAID); Z79.82 Long term (current) use of aspirin; Z79.899 Other long term (current) drug therapy
CPT/HCPCS: 93459; 80048; 85025; C1769 ×3; C1894; J2250; J2001; J3010; Q9967

== ENCOUNTER 2019-05-13 02:36 | Observation (INO) | payer MEDICARE, OTHER ==
[2019-05-13] MEDS ORDERED: HEPARIN SOD,PORK IN 0.45% NACL 25,000 UNIT in 0.45% NACL 1 250ML.BAG IV SCH (02:45)
[2019-05-13 03:07] LABS: Basophils % (A) 0 %; Eosinophils # (A) 0.1 k/uL (0-0.7); Eosinophils % (A) 1 %; HCT 42.5 % (39.0-53.0); Lymphocytes # (A) 2.7 k/uL (1.0-4.8); Lymphocytes % (A) 29 %; MCH 30.2 pg (25.0-35.0); MCV 91.6 fL (80.0-100.0); Monocytes # (A) 0.4 k/uL (0-1.0); Monocytes % (A) 4 %; Neutrophils # (A) 5.8 k/uL (1.3-7.7); Neutrophils % (A) 64 %; Platelet Count 147 k/uL (150-450); RBC 4.64 m/uL (4.30-5.90); RDW 13.4 % (11.5-15.5); WBC 9.1 k/uL (3.8-10.6)
[2019-05-13 03:14] LABS: Prothrombin Time 10.7 sec (9.0-12.0)
--- NOTE | 2019-05-13 03:27 | ED ---
Chest Pain HPI - General Stated Complaint: Chest Pain Time Seen by Provider: 05/13/19 02:41 Source: patient Mode of arrival: EMS Limitations: no limitations - History of Present Illness Initial Comments: Israel is a 64-year-old gentleman with a known history of coronary artery disease for which she has had 7 stents in the past. Patient reports that he was scheduled to have a cardiac catheterization 2-3 months ago with plan for nonemergent stenting however he decided to postpone it. Patient reports that today he was sitting in his chair when he developed sudden stabbing pain in his central chest. Patient reports that usually when he has cardiac pain it is in his left upper chest radiating to his collarbone. This pain was different. Patient reports he took a nitro home which improved his pain he then sought care in an outside facility where he was evaluated, due to the high risk nature of the patient's chest pain decision was made to transfer him to our facility for further evaluation by his station supervisor Dr. Ni. - Related Data Home Medications Medication Instructions Recorded Confirmed HYDROcodone/APAP 10-325MG [[place] 1 tab PO TID PRN 02/22/15 05/13/19 10-325] ALPRAZolam [Xanax] 2 mg PO BID PRN 02/23/15 05/13/19 Ergocalciferol (Vitamin D2) 50,000 unit PO Q30D 07/29/16 05/13/19 [Drisdol] Esomeprazole Magnesium [NexIUM] 20 mg PO DAILY 09/29/17 05/13/19 Gabapentin 600 mg PO QID PRN 09/29/17 05/13/19 rOPINIRole HCL [Requip] 0.25 mg PO HS 09/29/17 05/13/19 Aspirin EC [Ecotrin] 81 mg PO DAILY 01/20/18 05/13/19 Metoprolol Tartrate [Lopressor] 25 mg PO HS 01/20/18 05/13/19 Naproxen [Naprosyn] 500 mg PO Q12HR PRN 01/20/18 05/13/19 Albuterol Inhaler [Ventolin Hfa 1 - 2 puff INHALATION RT-QID PRN 06/11/18 05/13/19 Inhaler] Cyclobenzaprine HCl 10 mg PO TID PRN 06/11/18 05/13/19 Diclofenac Sodium [Voltaren Gel] 2 gram TOPICAL DAILY PRN 06/11/18 05/13/19 Fenofibrate Nanocrystallized 48 mg PO DAILY 06/11/18 05/13/19 [Fenofibrate] Fluticasone Nasal [place] [Flonase 1 spray EA NOSTRIL DAILY 06/11/18 05/13/19 Nasal [place]] Clopidogrel [Plavix] 75 mg PO HS 12/18/18 05/13/19 Previous Rx's Medication Instructions Recorded Isosorbide Mononitrate ER [Imdur] 30 mg PO DAILY #30 tab 12/18/18 Ranolazine [Ranexa] 500 mg PO BID #60 tab 12/18/18 Allergies Allergy/AdvReac Type Severity Reaction Status Date / Time latex Allergy Swelling Verified 12/18/18 07:40 atorvastatin [From Lipitor] AdvReac JOINT PAIN Verified 12/18/18 07:40 Review of Systems ROS Statement: Those systems with pertinent positive or pertinent negative responses have been documented in the HPI. ROS Other: All systems not noted in ROS Statement are negative. EKG Findings - EKG Comments: EKG Findings:: EKG was obtained due to complaint of chest pain, EKG was obtained at 2:43 AM, rate is 64 rhythm is sinus there is normal axis there is normal intervals, MT 160, QRS 114, QTC is 466 there are no acute ST elevations or depressions there is no evidence of acute ischemia or infarction. Past Medical History Past Medical History: Coronary Artery Disease (CAD), Chest Pain / Angina, COPD, GERD/Reflux, Hyperlipidemia, Hypertension, Myocardial Infarction (AR), Osteoarthritis (OA), Sleep Apnea/CPAP/BIPAP Additional Past Medical History / Comment(s): hiatal hernia, chronic back pain, L foot drop, numbness/tingling bilateral legs, HUSAM without device, CHF once per pt, pt denies ever having AR, had some chest pain 3-4 days ago, taken to [facility], left AMA Last Myocardial Infarction Date:: ?01/20/18 History of Any Multi-Drug Resistant Organisms: None Reported Past Surgical History: Back Surgery, Cholecystectomy, Coronary Bypass/CABG, Heart Catheterization With Stent, Orthopedic Surgery Additional Past Surgical History / Comment(s): Back surg x 2 with cage. L tennis elbow surg. HEART STENTS X7. Colonoscopy. Lasik eye surgery bilaterally. Past Anesthesia/Blood Transfusion Reactions: No Reported Reaction Additional Past Anesthesia/Blood Transfusion Reaction / Comment(s): Pt received blood during CABG without reaction. Date of Last Stent Placement:: May 2018 Past Psychological History: Anxiety, Depression, PTSD Smoking Status: Current every day smoker - Past Family History Father Family Medical History: Coronary Artery Disease (CAD), Deep Vein Thrombosis (DVT), GERD/Reflux, Hyperlipidemia Additional Family Medical History / Comment(s): Father of a AR in his 80's Mother Family Medical History: Coronary Artery Disease (CAD) Additional Family Medical History / Comment(s): Mother of a AR at the age of 76yrs. Sister(s) Family Medical History: Cancer Additional Family Medical History / Comment(s): Lung cancer. General Exam - General Exam Comments Initial Comments: Physical Exam GENERAL: Patient is well-developed and well-nourished. Patient is nontoxic and well- hydrated and is in no distress. HENT: Normocephalic, Atraumatic. EYES: PERRL, EOMI PULMONARY: Unlabored respirations. No audible rales rhonchi or wheezing was noted. CARDIOVASCULAR: There is a regular rate and rhythm without any murmurs gallops or rubs. ABDOMEN: Soft and nontender with normal bowel sounds. SKIN: Skin is clear with no lesions or rashes and otherwise unremarkable. : Deferred NEUROLOGIC: Patient is alert and oriented x3. Moving all extremities spontaneously MUSCULOSKELETAL: Normal extremities with adequate strength and full range of motion. No lower extremity swelling or edema. No calf tenderness. PSYCHIATRIC: Normal psychiatric evaluation Limitations: no limitations Course Vital Signs 05/13/19 05/13/19 05/13/19 02:38 02:57 03:16 Temperature 97.7 F 97.5 F L Pulse Rate 64 62 Respiratory 20 20 16 Rate Blood Pressure 122/67 O2 Sat by Pulse 97 98 Oximetry Chest Pain MDM - [facility] Patient care was discussed with transferring physician prior to patient arrival, this is a high risk cardiac patient presenting with chest pain Initial EKG was nonischemic outside facility Labs were obtained patient was started on heparin drip and Nitrol paste was applied Patient arrived to our emergency department hemodynamically stable he reported improvement in his chest pain after the nitro, he is currently chest pain-free, repeat EKG is nonischemic Patient was admitted to the hospital under the care of his primary care physician. Dr. Gee who agrees with plan for admission and consult cardiology. Disposition Clinical Impression: Unstable angina pectoris Disposition: ADMITTED IP TO THIS HOSP Condition: Serious Is patient prescribed a controlled substance at d/c from ED?: No Referrals: Alexx Gee MD [Primary Care Provider] - 1-2 days
[2019-05-13 03:28] LABS: Partial Thromboplastin Time 79.6 sec (22.0-30.0)
[2019-05-13 03:33] LABS: Albumin 4.4 g/dL (3.5-5.0); Calcium 9.7 mg/dL (8.4-10.2); Magnesium 1.9 mg/dL (1.6-2.3); Potassium 4.9 mmol/L (3.5-5.1); Total Bilirubin 0.7 mg/dL (0.2-1.3); Total Protein 7.5 g/dL (6.3-8.2)
[2019-05-13] MEDS: HYDROcodone/APAP 10-325MG 1 EACH TAB PO PRN ×2 (03:47→12:37)
[2019-05-13 07:12] VITALS: RESP 18
[2019-05-13] MEDS ORDERED: ALBUTEROL NEBULIZED 2.5 MG/3 ML INHALATION PRN (08:00)
[2019-05-13] MEDS ORDERED: ASPIRIN 81 MG PO SCH (09:00)
[2019-05-13] MEDS ORDERED: GABAPENTIN 300 MG CAP PO PRN (09:00)
[2019-05-13] MEDS ORDERED: RANOLAZINE 500 MG TAB.ER.12H PO SCH ×2 (09:00)
[2019-05-13] MEDS ORDERED: DICLOFENAC SODIUM GEL 100 GM TUBE TOPICAL PRN (09:00)
[2019-05-13] MEDS ORDERED: FLUTICASONE 50MCG/SPRAY NASAL 16GM EA NOSTRIL SCH (09:00)
[2019-05-13] MEDS ORDERED: PANTOPRAZOLE 40 MG TABLET PO SCH (09:00)
--- NOTE | 2019-05-13 10:46 | P.CRDCN ---
History of Present Illness History of present illness: This is a pleasant 64-year-old male past medical history significant for coronary artery disease s/p bypass grafting with progression of CAD and graft stenosis per recent cath from 11/2018. He also has COPD, hypertension, dyslipidemia, obstructive sleep apnea, chronic nicotine dependence and chronic back pain. He follows in the office with Dr. Ni. We have been asked to see him in consultation secondary to chest discomfort. He states yesterday sitting down watching a movie with his grandson he felt a sharp pain in mid-sternal region like a knife stabbing him. This was very brief lasting only a few seconds and subsiding on its own. Later in the evening when he laid down for the night he again had a pain similar in nature in the mid-sternal region. There was no radiation to the arm, back, neck or jaw. The second episode of chest discomfort was associated with mild nausea. He states this feels different from previous cardiac events. Typically in the past his symptoms of angina and left back and shoulder discomfort. At the time of my exam he is seen resting comfortably in bed in no acute distress. He has had no further episodes of chest discomfort. Cardiac catheterization from November revealed the left main was angiographically normal with no evidence of significant stenosis, ostial circumflex with a tight lesion in the range of 70%, ostial lesion of the first OM and range of 70-80%, ostial lesion of the ramus 70-80%, 100% occluded LAD at the ostium, 100% occluded RCA at the ostium. Previously stented SVG to LAD with in-stent restenosis in the range of 60-70%, SVG to RCA is diffusely diseased. At that time maximum medical therapy was recommended and ranexa was added to his daily regimen. Discussed with the patient of possible consultation with CT surgery if he had reoccurrence of chest pain. He states overall he has been chest pain free since that time until yesterday. He is compliant with his medications daily. EKG reveals sinus mechanism heart rate of 64, inferior Q waves noted, T-wave inversions anteriorly and nonspecific changes in the precordial leads. with no acute ST or T-wave abnormalities. Changes from previous. Laboratory data reviewed, WBC 9.1, hemoglobin 14, platelets 147, sodium 139, potassium 4.9, creatinine 1.22 with a GFR of 63, magnesium 1.9 and cardiac enzymes negative 1. Current cardiac medications include Ranexa 500 mg twice a day, Lopressor 25 mg at bedtime, Imdur 30 mg daily, enough I agree 40 mg daily, Plavix 75 mg daily and aspirin 81 mg daily. Most recent echocardiogram obtained December 2017 reveals preserved LV systolic function with ejection fraction 55-60%, mild MR and mild TR noted. At the time of my exam: CONSTITUTIONAL: Denies fever. Denies chills. EYES: Denies blurred vision. Denies vision changes. Denies eye pain. EARS, NOSE, MOUTH & THROAT: Denies headache. Denies sore throat. Denies ear pain. CARDIOVASCULAR: Denies chest pain. Denies shortness of breath. Denies orthopnea. Denies PND. Denies palpitations. RESPIRATORY: Denies cough. GASTROINTESTINAL: Denies abdominal pain. Denies diarrhea. Denies constipation. Denies nausea. Denies vomiting. MUSCULOSKELETAL: Denies myalgias. INTEGUMENTARY: Denies pruitis. Denies rash. NEUROLOGIC: Denies numbness. Denies tingling. Denies weakness. PSYCHIATRIC: Denies anxiety. Denies depression. ENDOCRINE: Denies fatigue. Denies weight change. Denies polydipsia. Denies polyurina. GENITOURINARY: Denies burning, hematuria or urgency with micturation. HEMATOLOGIC: Denies history of anemia. Denies bleeding. Blood pressure 116/61, heart rate 64 afebrile maintaining oxygen saturation on room air GENERAL: This is a 64-year-old male in no apparent distress at the time of my examination. HEENT: Head is atraumatic, normocephalic. Pupils are equal, round. Sclerae anicteric. Conjunctivae are clear. Mucous membranes of the mouth are moist. Neck is supple. There is no jugular venous distention. No carotid bruit is heard. LUNGS: Clear to auscultation no wheezes, rales or rhonchi. No chest wall tenderness is noted on palpation or with deep breathing. HEART: Regular rate and rhythm without murmurs, rubs or gallops. S1 and S2 hear d. ABDOMEN: Soft, nontender. Bowel sounds are heard. No organomegaly noted. EXTREMITIES: No evidence of peripheral edema and no calf tenderness noted. VASCULAR: Radial and dorsalis pedis pulses palpated, no evidence of clubbing. NEUROLOGIC: Patient is awake, alert and oriented x3. ASSESSMENT Chest pain, known coronary artery disease on maximum medical therapy status post bypass grafting and subsequent stent placement with occluded grafts. Hypertension Dyslipidemia COPD Obstructive sleep apnea Chronic nicotine dependence PLAN Continue to obtain serial cardiac enzymes to rule out an acute event. We'll request evaluation by cardiothoracic surgery for the possibility of redo bypass grafting. Repeat echocardiogram and doppler study to assess cardiac structure and function. Increase ranexa to 1,000 mg BID. Further recommendations to follow based on clinical course. Thank you kindly for this consultation. Nurse Practitioner note has been reviewed, I agree with a documented findings and plan of care. Patient was seen and examined. Past Medical History Past Medical History: Coronary Artery Disease (CAD), Chest Pain / Angina, COPD, GERD/Reflux, Hyperlipidemia, Hypertension, Myocardial Infarction (IA), Osteoarthritis (OA), Sleep Apnea/CPAP/BIPAP Additional Past Medical History / Comment(s): hiatal hernia, chronic back pain, L foot drop, numbness/tingling bilateral legs, HUSAM without device, CHF once per pt, pt denies ever having IA, had some chest pain 3-4 days ago, taken to [facility], left AMA Last Myocardial Infarction Date:: ?01/20/18 History of Any Multi-Drug Resistant Organisms: None Reported Past Surgical History: Back Surgery, Cholecystectomy, Coronary Bypass/CABG, Heart Catheterization With Stent, Orthopedic Surgery Additional Past Surgical History / Comment(s): Back surg x 2 with cage. L tennis elbow surg. HEART STENTS X7. Colonoscopy. Lasik eye surgery bilaterally. Past Anesthesia/Blood Transfusion Reactions: No Reported Reaction Additional Past Anesthesia/Blood Transfusion Reaction / Comment(s): Pt received blood during CABG without reaction. Date of Last Stent Placement:: May 2018 Past Psychological History: Anxiety, Depression, PTSD Additional Psychological History / Comment(s): Pt resides alone. He ambulates with a cane. He drives. Smoking Status: Former smoker Past Alcohol Use History: None Reported Past Drug Use History: Cocaine - Past Family History Father Family Medical History: Coronary Artery Disease (CAD), Deep Vein Thrombosis (DVT), GERD/Reflux, Hyperlipidemia Additional Family Medical History / Comment(s): Father of a IA in his 80's Mother Family Medical History: Coronary Artery Disease (CAD) Additional Family Medical History / Comment(s): Mother of a IA at the age of 76yrs. Sister(s) Family Medical History: Cancer Additional Family Medical History / Comment(s): Lung cancer. Medications and Allergies Home Medications Medication Instructions Recorded Confirmed Type HYDROcodone/APAP 10-325MG [[place] 1 tab PO TID PRN 02/22/15 05/13/19 History 10-325] ALPRAZolam [Xanax] 2 mg PO BID PRN 02/23/15 05/13/19 History Ergocalciferol (Vitamin D2) 50,000 unit PO Q30D 07/29/16 05/13/19 History [Drisdol] Esomeprazole Magnesium [NexIUM] 20 mg PO DAILY 09/29/17 05/13/19 History Gabapentin 600 mg PO QID PRN 09/29/17 05/13/19 History rOPINIRole HCL [Requip] 0.25 mg PO HS 09/29/17 05/13/19 History Aspirin EC [Ecotrin] 81 mg PO DAILY 01/20/18 05/13/19 History Metoprolol Tartrate [Lopressor] 25 mg PO HS 01/20/18 05/13/19 History Naproxen [Naprosyn] 500 mg PO Q12HR PRN 01/20/18 05/13/19 History Albuterol Inhaler [Ventolin Hfa 1 - 2 puff INHALATION RT-QID PRN 06/11/18 History Inhaler] Cyclobenzaprine HCl 10 mg PO TID PRN 06/11/18 05/13/19 History Diclofenac Sodium [Voltaren Gel] 2 gram TOPICAL DAILY PRN 06/11/18 05/13/19 History Fenofibrate Nanocrystallized 48 mg PO DAILY 06/11/18 05/13/19 History [Fenofibrate] Fluticasone Nasal [place] [Flonase 1 spray EA NOSTRIL DAILY 06/11/18 05/13/19 History Nasal [place]] Clopidogrel [Plavix] 75 mg PO HS 12/18/18 05/13/19 History Isosorbide Mononitrate ER [Imdur] 30 mg PO DAILY #30 tab 12/18/18 05/13/19 Rx Ranolazine [Ranexa] 500 mg PO BID #60 tab 12/18/18 05/13/19 Rx Allergies Allergy/AdvReac Type Severity Reaction Status Date / Time latex Allergy Swelling Verified 05/13/19 07:07 atorvastatin [From Lipitor] AdvReac JOINT PAIN Verified 05/13/19 07:07 Physical Exam Vitals: Vital Signs Temp Pulse Pulse Resp BP BP Pulse Ox 05/13/19 07:38 98 05/13/19 07:11 97.4 F L 64 18 116/61 98 05/13/19 04:45 97.9 F 61 16 120/69 97 05/13/19 04:16 97.7 F 62 18 102/64 96 05/13/19 03:16 97.5 F L 62 16 98 05/13/19 02:57 20 05/13/19 02:38 97.7 F 64 20 122/67 97 Intake and Output 05/12/19 05/13/19 05/13/19 22:59 06:59 14:59 Intake Total 4.671 Balance 4.671 Intake: Intake, IV Titration 4.671 Amount Heparin Sod,Pork in 0.45% 4.671 NaCl 25,000 unit In 0.45 % NaCl 1 250ml.bag @ 9.47 UNITS/KG/HR 10.009 mls/ hr IV .Q24H [facility] Rx#: [id number] Other: # Voids 1 Weight 105.687 kg Results 05/13/19 02:44 05/13/19 02:44 Cardiac Enzymes 05/13/19 05/13/19 Range/Units 02:44 02:44 AST 45 (17-59) U/L Troponin I <0.012 (0.000-0.034) ng/mL Coagulation 05/13/19 Range/Units 02:44 PT 10.7 (9.0-12.0) sec APTT 79.6 H (22.0-30.0) sec CBC 05/13/19 Range/Units 02:44 WBC 9.1 (3.8-10.6) k/uL RBC 4.64 (4.30-5.90) m/uL Hgb 14.0 (13.0-17.5) gm/dL Hct 42.5 (39.0-53.0) % Plt Count 147 L (150-450) k/uL Comprehensive Metabolic Panel 05/13/19 Range/Units 02:44 Sodium 139 (137-145) mmol/L Potassium 4.9 (3.5-5.1) mmol/L Chloride 105 (98-107) mmol/L Carbon Dioxide 24 (22-30) mmol/L BUN 24 H (9-20) mg/dL Creatinine 1.22 (0.66-1.25) mg/dL Glucose 117 H (74-99) mg/dL Calcium 9.7 (8.4-10.2) mg/dL AST 45 (17-59) U/L ALT 21 (21-72) U/L Alkaline Phosphatase 104 (38-126) U/L Total Protein 7.5 (6.3-8.2) g/dL Albumin 4.4 (3.5-5.0) g/dL Current Medications Generic Name Dose Route Start Last Admin Trade Name Freq PRN Reason Stop Dose Admin Hydrocodone Bitart/Acetaminophen 1 each 05/13/19 04:00 05/13/19 03:47 [place] 10 PO 1 each TID PRN Administration Pain Albuterol Sulfate 1 - 2 mg 05/13/19 08:00 Ventolin Nebulized INHALATION RT-QID PRN Shortness Of Breath Aspirin 325 mg 05/14/19 09:00 Aspirin PO DAILY ELIANA Aspirin 81 mg 05/13/19 09:00 Aspirin PO DAILY [facility] Diclofenac Sodium 2 gm 05/13/19 09:00 Voltaren Gel TOPICAL DAILY PRN Pain Fluticasone Propionate 1 spray 05/13/19 09:00 Flonase Nasal [place] EA NOSTRIL DAILY [facility] Gabapentin 600 mg 05/13/19 09:00 Neurontin PO QID PRN Pain Heparin Sodium/Sodium Chloride 250 mls @ 10.009 mls/hr 05/13/19 02:45 05/13/19 03:37 25,000 unit/ Sodium Chloride IV 7.47 units/kg/hr .Q24H ELIANA 7.895 mls/hr Titration Protocol 9.47 UNITS/KG/HR Metoprolol Tartrate 25 mg 05/13/19 21:00 Lopressor PO HS ELIANA Pantoprazole Sodium 40 mg 05/13/19 09:00 Protonix PO DAILY ELIANA Ranolazine 500 mg 05/13/19 09:00 Ranexa PO BID ELIANA Ropinirole HCl 0.25 mg 05/13/19 21:00 Requip PO HS ELIANA Intake and Output 05/12/19 05/13/19 05/13/19 22:59 06:59 14:59 Intake Total 4.671 Balance 4.671 Intake: Intake, IV Titration 4.671 Amount Heparin Sod,Pork in 0.45% 4.671 NaCl 25,000 unit In 0.45 % NaCl 1 250ml.bag @ 9.47 UNITS/KG/HR 10.009 mls/ hr IV .Q24H [facility] Rx#: [id number] Other: # Voids 1 Weight 105.687 kg 05/13/19 02:44 05/13/19 02:44
[2019-05-13 11:28] VITALS: BP 100/59; PULSE 60; TEMP 97.5
--- NOTE | 2019-05-13 12:55 | P.GSCN ---
History of Present Illness Consult date: 05/13/19 Reason for Consult: History of CABG, possible redo versus PCI Requesting physician: Reshma Wells History of present illness: This is an active 64-year-old gentleman who follows on an outpatient basis with Dr. Gee. In addition he follows with Dr. Wiggins for cardiology. He has a previous medical history of coronary artery disease with multiple stents, the last in December 2017, as well as coronary artery bypass graft surgery approximated 20 years ago, hypertension, hyperlipidemia, current E-cigarette use, COPD, obstructive sleep apnea, chronic back pain with history of back surgery, and family history of heart disease. He did have heart catheterization here at [facility] on December 18 of this year which demonstrated severe triple- vessel coronary artery disease with intermediate to severe disease involving the saphenous vein graft to the left anterior descending artery with re-in-stent stenosis and multiple layers of stent at that segment, occluded saphenous vein graft to the right coronary artery, and 70% lesion in the left circumflex, and 70-80% ostial stenosis in the ramus intermedius. The patient was recommended to maintain medical management at that time with addition of Ranexa and oral nitrates to his medication regimen. Apparently yesterday he was sitting watching TV when he developed a sharp stabbing pain in the center of his chest without radiation, it was associated with nausea but no shortness of breath or any other symptoms. He presented to [facility] where he was treated with sublingual nitro and IV heparin. The sublingual nitro did relieve his symptoms and the patient was transferred to [facility] for further evaluation and treatment. EKG demonstrated no ischemic changes, troponins were negative 2. He is currently chest pain free and resting comfortably in bed in no distress. Due to the history of his coronary artery disease consultation was placed to Dr. Martinez from cardiothoracic surgery for recommendations regarding redo coronary artery bypass graft surgery versus stenting. Review of Systems Review of systems was completed and was negative except as noted. - Cardiovascular Reports as per HPI, Reports chest pain - Gastrointestinal Reports as per HPI, Reports nausea Past Medical History Past Medical History: Coronary Artery Disease (CAD), Chest Pain / Angina, COPD, GERD/Reflux, Hyperlipidemia, Hypertension, Myocardial Infarction ([place]), Osteoarthritis ([place]), Sleep Apnea/CPAP/BIPAP Additional Past Medical History / Comment(s): hiatal hernia, chronic back pain, L foot drop, numbness/tingling bilateral legs, HUSAM without device, CHF once per pt, pt denies ever having [place], had some chest pain 3-4 days ago, taken to [facility], left AMA Last Myocardial Infarction Date:: ?01/20/18 History of Any Multi-Drug Resistant Organisms: None Reported Past Surgical History: Back Surgery, Cholecystectomy, Coronary Bypass/CABG, Heart Catheterization With Stent, Orthopedic Surgery Additional Past Surgical History / Comment(s): Back surg x 2 with cage. L tennis elbow surg. HEART STENTS X7. Colonoscopy. Lasik eye surgery bilaterally. Past Anesthesia/Blood Transfusion Reactions: No Reported Reaction Additional Past Anesthesia/Blood Transfusion Reaction / Comm: Pt received blood during CABG without reaction. Date of Last Stent Placement:: May 2018 Past Psychological History: Anxiety, Depression, PTSD Additional Psychological History / Comment(s): Pt resides alone. He ambulates with a cane. He drives. Smoking Status: Current every day smoker Past Alcohol Use History: None Reported Past Drug Use History: Cocaine - Past Family History Father Family Medical History: Coronary Artery Disease (CAD), Deep Vein Thrombosis (DVT), GERD/Reflux, Hyperlipidemia Additional Family Medical History / Comment(s): Father of a [place] in his 80's Mother Family Medical History: Coronary Artery Disease (CAD) Additional Family Medical History / Comment(s): Mother of a [place] at the age of 76yrs. Sister(s) Family Medical History: Cancer Additional Family Medical History / Comment(s): Lung cancer. Medications and Allergies Home Medications Medication Instructions Recorded Confirmed Type HYDROcodone/APAP 10-325MG [[place] 1 tab PO QID PRN 02/22/15 05/13/19 History 10-325] ALPRAZolam [Xanax] 2 mg PO BID PRN 02/23/15 05/13/19 History Ergocalciferol (Vitamin D2) 100,000 unit PO Q30D 07/29/16 05/13/19 History [Drisdol] Esomeprazole Magnesium [NexIUM] 20 mg PO DAILY 09/29/17 05/13/19 History rOPINIRole HCL [Requip] 0.25 mg PO HS 09/29/17 05/13/19 History Aspirin EC [Ecotrin] 325 mg PO DAILY 01/20/18 05/13/19 History Albuterol Inhaler [Ventolin Hfa 1 - 2 puff INHALATION RT-QID PRN 06/11/18 05/13/19 History Inhaler] Cyclobenzaprine HCl 10 mg PO TID PRN 06/11/18 05/13/19 History Diclofenac Sodium [Voltaren Gel] 2 gram TOPICAL QID PRN 06/11/18 05/13/19 History Fenofibrate Nanocrystallized 48 mg PO HS 06/11/18 05/13/19 History [Fenofibrate] Fluticasone Nasal [place] [Flonase 1 spray EA NOSTRIL DAILY 06/11/18 05/13/19 History Nasal [place]] Clopidogrel [Plavix] 75 mg PO HS 12/18/18 05/13/19 History Isosorbide Mononitrate ER [Imdur] 30 mg PO DAILY #30 tab 12/18/18 05/13/19 Rx Ranolazine [Ranexa] 500 mg PO BID #60 tab 12/18/18 05/13/19 Rx Furosemide [Lasix] 40 mg PO DAILY 05/13/19 05/13/19 History Lisinopril 40 mg PO DAILY 05/13/19 05/13/19 History Metoprolol Tartrate [Lopressor] 50 mg PO BID 05/13/19 05/13/19 History Nitroglycerin Sl Tabs [Nitrostat] 0.4 mg SUBLINGUAL Q5M PRN 05/13/19 05/13/19 History Pravastatin Sodium [Pravachol] 20 mg PO HS 05/13/19 05/13/19 History buPROPion SR [Wellbutrin Sr] 150 mg PO BID 05/13/19 05/13/19 History Allergies Allergy/AdvReac Type Severity Reaction Status Date / Time latex Allergy Swelling Verified 05/13/19 07:07 atorvastatin [From Lipitor] AdvReac JOINT PAIN Verified 05/13/19 07:07 Surgical - Exam Vital Signs Temp Pulse Resp BP Pulse Ox 97.7 F 64 20 122/67 97 05/13/19 02:38 05/13/19 02:38 05/13/19 02:38 05/13/19 02:38 05/13/19 02:38 - General well developed, well nourished, no distress, no pain, obese - Eyes PERRL, normal ocular movement - ENT no hearing loss - Neck no masses, no bruits, trachea midline - Respiratory Lungs sounds diminished bilaterally. Respirations even, nonlabored. Currently on room air with oxygen saturation 97%. Strong cough. - Cardiovascular S1, S2 present. Regular rate and rhythm, sinus rhythm on telemetry. Palpable peripheral pulses bilaterally. No edema present. No calf pain or tenderness noted. - Abdomen Abdomen: soft, non tender, bowel sounds - Genitourinary Deferred - Rectum Deferred - Integumentary Well-healed anterior chest wall surgical scar no rash, no growths - Neurologic normal coordination, normal sensation - Musculoskeletal normal posture - Psychiatric oriented to time, oriented to person, oriented to place, speech is normal, memory intact Results - Labs 05/13/19 02:44 05/13/19 02:44 Abnormal Lab Results - Last 24 Hours (Table) 05/13/19 05/13/19 05/13/19 Range/Units 02:44 02:44 02:44 Plt Count 147 L (150-450) k/uL APTT 79.6 H (22.0-30.0) sec BUN 24 H (9-20) mg/dL Glucose 117 H (74-99) mg/dL 05/13/19 Range/Units 09:33 Plt Count (150-450) k/uL APTT 32.9 H (22.0-30.0) sec BUN (9-20) mg/dL Glucose (74-99) mg/dL Diabetes panel 05/13/19 Range/Units 02:44 Sodium 139 (137-145) mmol/L Potassium 4.9 (3.5-5.1) mmol/L Chloride 105 (98-107) mmol/L Carbon Dioxide 24 (22-30) mmol/L BUN 24 H (9-20) mg/dL Creatinine 1.22 (0.66-1.25) mg/dL Glucose 117 H (74-99) mg/dL Calcium 9.7 (8.4-10.2) mg/dL AST 45 (17-59) U/L ALT 21 (21-72) U/L Alkaline Phosphatase 104 (38-126) U/L Total Protein 7.5 (6.3-8.2) g/dL Albumin 4.4 (3.5-5.0) g/dL Calcium panel 05/13/19 Range/Units 02:44 Calcium 9.7 (8.4-10.2) mg/dL Albumin 4.4 (3.5-5.0) g/dL Pituitary panel 05/13/19 Range/Units 02:44 Sodium 139 (137-145) mmol/L Potassium 4.9 (3.5-5.1) mmol/L Chloride 105 (98-107) mmol/L Carbon Dioxide 24 (22-30) mmol/L BUN 24 H (9-20) mg/dL Creatinine 1.22 (0.66-1.25) mg/dL Glucose 117 H (74-99) mg/dL Calcium 9.7 (8.4-10.2) mg/dL Adrenal panel 05/13/19 Range/Units 02:44 Sodium 139 (137-145) mmol/L Potassium 4.9 (3.5-5.1) mmol/L Chloride 105 (98-107) mmol/L Carbon Dioxide 24 (22-30) mmol/L BUN 24 H (9-20) mg/dL Creatinine 1.22 (0.66-1.25) mg/dL Glucose 117 H (74-99) mg/dL Calcium 9.7 (8.4-10.2) mg/dL Total Bilirubin 0.7 (0.2-1.3) mg/dL AST 45 (17-59) U/L ALT 21 (21-72) U/L Alkaline Phosphatase 104 (38-126) U/L Total Protein 7.5 (6.3-8.2) g/dL Albumin 4.4 (3.5-5.0) g/dL - Imaging EKG: image reviewed Assessment and Plan Assessment: 1. Coronary artery disease, status post multiple stents with most recent in December 2017, status post CABG 20 years ago, most recent heart cath in November 2018 demonstrating continued progression of coronary artery disease 2. Hypertension 3. Hyperlipidemia 4. Current e-cigarette use 5. COPD 6. Obstructive sleep apnea 7. Chronic back pain with history of back surgery 8. Family history of heart disease Plan: The patient was seen and examined at the bedside on the observation unit. Jonna rt/diagnostics were reviewed. The usual perioperative course of coronary artery bypass graft surgery was discussed with the patient. At this time the patient adamantly insists he does not want surgery even if it means his disease process will hasten his own mortality. He is well aware of the risks, appears fully competent make his own decisions, and is very clear on his decision. He states he has discussed this with Dr. Wiggins. Our recommendation would be to continue medical therapy plus/minus PCI if felt appropriate by Dr. Wiggins. If the patient changes his mind and decides he would like to explore the option of re-do open heart surgery, he may contact us at any time. Thank you Dr. Wells's for this consult. Please call us with any further questions. Time with Patient: Greater than 30
--- NOTE | 2019-05-13 15:59 | HP ---
HISTORY AND PHYSICAL CHIEF COMPLAINT: Chest pain. HISTORY OF PRESENT ILLNESS: This is another of many admissions for this 64-year-old white male with extensive history of coronary artery disease, hypertension, COPD, hyperlipidemia. He developed a series of sharp, aching anterior chest pain which persisted and grew worse, and he went to the emergency room at [place] and was transferred here. He had no associated nausea, diaphoresis, shortness of breath, etc. He has been seen by a savings teller here and apparently it was recommended that he undergo cardiac catheterization some time ago, but this has not been done. REVIEW OF SYSTEMS: He has had no syncope, neurologic deficits, change in vision or hearing, cough, hemoptysis, fever, chills, pleurisy, murmurs, orthopnea, PND, abdominal pain, vomiting, hematemesis, indigestion, dysphagia, melena, hematochezia, jaundice, hematuria, frequency, urgency, renal failure, etc. Past medical history, family history, and personal and social histories reveal that he is ALLERGIC TO ALL STATINS. He takes: 1. Ventolin HFA. 2. Aspirin once a day. 3. Fenofibrate 48 mg once a day. 4. Alprazolam 2 mg twice a day p.r.n. 5. Lisinopril 40 mg daily. 6. Clopidogrel 75 mg once a day. 7. Omeprazole 20 mg once a day. 8. Fluticasone nasal spray. 9. Furosemide 40 mg once a day. 10.Ropinirole 0.25 mg at bedtime for cramps. 11.Gabapentin 600 mg 4 times a day. 12.Bupropion 150 mg twice a day. 13.Vitamin D3 50,000 units a month. 14. mg twice a day. 15.Vicodin 10 q.4 p.r.n. Family history and personal and social histories are unremarkable and noncontributory. He used to smoke but he has currently stopped. PHYSICAL EXAMINATION: Blood pressure is 126/80 with a pulse 78 and regular, respiratory rate 16. He is afebrile. In general he appeared to be well developed, well nourished, in no acute distress. Skin color is normal. Skin is warm and dry. Lymph nodes are not enlarged. Head, ears, eyes, nose, mouth and throat were normal. Neck veins were not distended. Thyroid is not enlarged. Chest is clear. Cardiac exam is normal. No murmurs or extra sounds. Abdomen is soft and slightly protuberant. There are no masses or visceromegaly. There is no tenderness. Bowel sounds were present. Extremities are normal. Neurologically he is intact. IMPRESSION: 1. Atypical chest pain. 2. History of coronary artery disease. 3. Chronic obstructive pulmonary disease. 4. Hypertension. 5. Hyperlipidemia. PLAN: 1. Bed rest. 2. IV fluids. 3. Serial EKGs and enzymes. 4. Consult Cardiology. MMODL / IJN: [id number] /
[2019-05-13] MEDS ORDERED: METOPROLOL TARTRATE 25 MG TAB PO SCH (21:00)
[2019-05-14] MEDS ORDERED: ASPIRIN 325 MG TAB PO SCH (09:00)
--- NOTE | 2019-05-14 14:58 | DS ---
DISCHARGE SUMMARY CHIEF COMPLAINT: Chest pain. HISTORY OF PRESENT ILLNESS AND PHYSICAL EXAM: Details of this man's history and physical can be found in the initial workup. LABORATORY STUDIES: While he was in a hospital, he had laboratory studies, details of which can be found in the laboratory section of his chart. COURSE IN HOSPITAL: After admission, he was placed on bedrest, started on intravenous fluids and he had serial EKGs and enzymes. He was seen by Cardiology. They felt that he may be a candidate for another coronary artery bypass graft. He was referred to Vascular Surgery. They discussed this possible treatment option with him, and he refused steadfastly. It was felt he could be discharged. He will go home on his usual activity, diet, and medication and follow up in the office with us in several days. FINAL DIAGNOSES: 1. Unstable angina pectoris. 2. Coronary artery disease. 3. Chronic obstructive pulmonary disease. 4. Hypertension. OPERATIONS: None. CONSULTATION: Cardiology and Cardiovascular surgery. He is improved. MMODL / NATHALYN: [id number] /
== END 2019-05-13 16:01 | disposition home or self-care (01) ==
LOC: EC 02:36 → 1SOBS 03:29
PROVIDERS: ADMIT Family Medicine; ATTEND Family Medicine
DX: I25.710 Atherosclerosis of autologous vein coronary artery bypass graft(s) with unstable angina pectoris (principal); T82.855A Stenosis of coronary artery stent, initial encounter; J44.9 Chronic obstructive pulmonary disease, unspecified; I11.0 Hypertensive heart disease with heart failure; I50.9 Heart failure, unspecified; K21.9 Gastro-esophageal reflux disease without esophagitis; G47.33 Obstructive sleep apnea (adult) (pediatric); E78.5 Hyperlipidemia, unspecified; M19.90 Unspecified osteoarthritis, unspecified site; G89.29 Other chronic pain; M54.9 Dorsalgia, unspecified; M21.372 Foot drop, left foot; K44.9 Diaphragmatic hernia without obstruction or gangrene; Z99.89 Dependence on other enabling machines and devices; F43.10 Post-traumatic stress disorder, unspecified; F41.9 Anxiety disorder, unspecified; F32.9 Major depressive disorder, single episode, unspecified; F17.290 Nicotine dependence, other tobacco product, uncomplicated; R20.2 Paresthesia of skin; R20.0 Anesthesia of skin; Z79.82 Long term (current) use of aspirin; Z79.02 Long term (current) use of antithrombotics/antiplatelets; Z79.1 Long term (current) use of non-steroidal anti-inflammatories (NSAID); Z79.891 Long term (current) use of opiate analgesic; Z79.899 Other long term (current) drug therapy; Z88.8 Allergy status to other drugs, medicaments and biological substances; Z91.040 Latex allergy status; Z90.49 Acquired absence of other specified parts of digestive tract; Z95.1 Presence of aortocoronary bypass graft; I25.2 Old myocardial infarction; Z95.5 Presence of coronary angioplasty implant and graft; Z82.49 Family history of ischemic heart disease and other diseases of the circulatory system; Z83.49 Family history of other endocrine, nutritional and metabolic diseases; Z80.1 Family history of malignant neoplasm of trachea, bronchus and lung; Z83.79 Family history of other diseases of the digestive system
CPT/HCPCS: 96366 ×2; 96365; 99285; 36415; 94760; 93005; 80053; 83735; 84484; 85025; 85610; 85730; G0378; J1644

== ENCOUNTER → 2019-08-06 | Outpatient (CLI) | payer MEDICARE, OTHER ==
--- NOTE | 2019-08-07 02:16 | MR ---
EXAMINATION TYPE: MR lumbar spine wo/w con DATE OF EXAM: 08/06/2019 COMPARISON: 11/16/2015 HISTORY: Low back pain TECHNIQUE: Multiplanar, multisequence images of the lumbar spine were acquired utilizing 12 mL intravenous Gadav ist gadolinium contrast. Lumbar vertebra have normal alignment. There is degenerative disc space narrowing throughout the lumb ar spine. There is posterior fusion surgery at L5-S1 with posterior rods and screws. The neuroforamin a are fairly well-maintained. There is small posterior disc bulging at L2-3 L3-4. There is no signifi cant spinal stenosis. There is no lumbar paraspinal mass. There is no compression fracture. There is no pathologic enhancement. IMPRESSION: Posterior fusion surgery. Multilevel spondylotic changes. There are small posterior disc bulges and herniation at L2-3 and L3-4 that appear new compared to old exam. No significant narrowing of the spinal canal.
== END | disposition home or self-care (01) ==
LOC: RADMRIMAIN 14:40
PROVIDERS: ATTEND Orthopaedic Surgery Orthopaedic Surgery of the Spine
DX: M51.16 Intervertebral disc disorders with radiculopathy, lumbar region (principal); M47.26 Other spondylosis with radiculopathy, lumbar region; Z98.1 Arthrodesis status
CPT/HCPCS: 72158; A9585

== ENCOUNTER → 2019-12-12 | Outpatient (CLI) | payer MEDICARE, OTHER | END | disposition home or self-care (01) | LOC: CPPFTMAIN 13:49 | PROVIDERS: ATTEND Internal Medicine Interventional Cardiology | DX: Z01.818 Encounter for other preprocedural examination (principal); J84.9 Interstitial pulmonary disease, unspecified; R94.2 Abnormal results of pulmonary function studies | CPT/HCPCS: 94060; 94726; 94729 ==

== ENCOUNTER 2020-05-25 21:01 | Observation (INO) | payer MEDICARE, OTHER ==
[2020-05-25] MEDS ORDERED: NITROGLYCERIN SL TABS 0.4 MG TAB SUBLINGUAL STA (21:22)
[2020-05-25] MEDS ORDERED: ASPIRIN 81 MG PO STA (21:22)
[2020-05-25] MEDS ORDERED: SODIUM CHLORIDE 0.9% 1,000 ML IV STA ×2 (21:22)
--- NOTE | 2020-05-25 21:29 | ED ---
Chest Pain HPI - General Chief Complaint: Chest Pain Stated Complaint: Chest Pains Time Seen by Provider: 05/25/20 21:09 Source: patient, RN notes reviewed, old records reviewed Mode of arrival: ambulatory Limitations: no limitations - History of Present Illness Initial Comments: 65-year-old male presents emergency department today with complaints of chest pain for the past few days also complaining of labile blood pressures. He was seen in [facility] yesterday and was sent home. He is extensive cardiac history with coronary artery bypass and multiple stents. Patient states the pain seems to be deep in the chest not reproducible with movement. He denies any significant coughing. Patient is a smoker. He also complains of increased fatigue feeling lightheaded. Patient denies any recent fever, chills, abdominal pain, nausea vomiting, numbness or tingling, dysuria or hematuria, constipation or diarrhea, headaches or visual changes, or any other current symptoms - Related Data Home Medications Medication Instructions Recorded Confirmed HYDROcodone/APAP 10-325MG [[place] 1 tab PO QID PRN 02/22/15 05/13/19 10-325] ALPRAZolam [Xanax] 2 mg PO BID PRN 02/23/15 05/13/19 Ergocalciferol (Vitamin D2) 100,000 unit PO Q30D 07/29/16 05/13/19 [Drisdol] Esomeprazole Magnesium [NexIUM] 20 mg PO DAILY 09/29/17 05/13/19 rOPINIRole HCL [Requip] 0.25 mg PO HS 09/29/17 05/13/19 Aspirin EC [Ecotrin] 325 mg PO DAILY 01/20/18 05/13/19 Albuterol Inhaler (Mhu) [Ventolin 1 - 2 puff INHALATION RT-QID PRN 06/11/18 05/13/19 Hfa Inhaler (Mhu)] Cyclobenzaprine HCl 10 mg PO TID PRN 06/11/18 05/13/19 Diclofenac Sodium [Voltaren Gel] 2 gram TOPICAL QID PRN 06/11/18 05/13/19 Fenofibrate Nanocrystallized 48 mg PO HS 06/11/18 05/13/19 [Fenofibrate] Fluticasone Nasal [place] [Flonase 1 spray EA NOSTRIL DAILY 06/11/18 05/13/19 Nasal [place]] Clopidogrel [Plavix] 75 mg PO HS 12/18/18 05/13/19 Furosemide [Lasix] 40 mg PO DAILY 05/13/19 05/13/19 Metoprolol Tartrate [Lopressor] 50 mg PO BID 05/13/19 05/13/19 Nitroglycerin Sl Tabs [Nitrostat] 0.4 mg SUBLINGUAL Q5M PRN 05/13/19 05/13/19 Pravastatin Sodium [Pravachol] 20 mg PO HS 05/13/19 05/13/19 buPROPion SR [Wellbutrin SR] 150 mg PO BID 05/13/19 05/13/19 lisinopriL 40 mg PO DAILY 05/13/19 05/13/19 Previous Rx's Medication Instructions Recorded Isosorbide Mononitrate ER [Imdur] 30 mg PO DAILY #30 tab 12/18/18 Aspirin 325 mg PO DAILY #100 tab 05/13/19 Gabapentin [Neurontin] 600 mg PO QID PRN #60 cap 05/13/19 Ranolazine [Ranexa] 1,000 mg PO Q12HR #60 tab.er.12h 05/13/19 Allergies Allergy/AdvReac Type Severity Reaction Status Date / Time latex Allergy Swelling Verified 05/25/20 21:07 atorvastatin [From Lipitor] AdvReac JOINT PAIN Verified 05/25/20 21:07 Review of Systems ROS Statement: Those systems with pertinent positive or pertinent negative responses have been documented in the HPI. ROS Other: All systems not noted in ROS Statement are negative. EKG Findings - EKG Comments: EKG Findings:: EKG performed at 2114 shows normal sinus rhythm with sinus arrhythmia. At normal EKG. Ventricular rate of 61 beats were minute. Was 156 ms. QRS duration is 100 ms. QT QTc is 416/471. Past Medical History Past Medical History: Coronary Artery Disease (CAD), Chest Pain / Angina, COPD, GERD/Reflux, Hyperlipidemia, Hypertension, Myocardial Infarction ([place]), Osteoarthritis (OA), Sleep Apnea/CPAP/BIPAP Additional Past Medical History / Comment(s): hiatal hernia, chronic back pain, L foot drop, numbness/tingling bilateral legs, HUSAM without device, CHF once per pt, pt denies ever having [place], had some chest pain 3-4 days ago, taken to [facility], left AMA Last Myocardial Infarction Date:: ?01/20/18 History of Any Multi-Drug Resistant Organisms: None Reported Past Surgical History: Back Surgery, Cholecystectomy, Coronary Bypass/CABG, Heart Catheterization With Stent, Orthopedic Surgery Additional Past Surgical History / Comment(s): Back surg x 2 with cage. L tennis elbow surg. HEART STENTS X7. Colonoscopy. Lasik eye surgery bilaterally. Past Anesthesia/Blood Transfusion Reactions: No Reported Reaction Additional Past Anesthesia/Blood Transfusion Reaction / Comment(s): Pt received blood during CABG without reaction. Date of Last Stent Placement:: May 2018 Past Psychological History: Anxiety, Depression, PTSD Past Alcohol Use History: None Reported Past Drug Use History: Cocaine - Past Family History Father Family Medical History: Coronary Artery Disease (CAD), Deep Vein Thrombosis (DVT), GERD/Reflux, Hyperlipidemia Additional Family Medical History / Comment(s): Father of a [place] in his 80's Mother Family Medical History: Coronary Artery Disease (CAD) Additional Family Medical History / Comment(s): Mother of a [place] at the age of 76yrs. Sister(s) Family Medical History: Cancer Additional Family Medical History / Comment(s): Lung cancer. General Exam - General Exam Comments Initial Comments: 65-year-old male. Alert and oriented 3. No significant distress. Limitations: no limitations General appearance: alert, in no apparent distress Head exam: Present: atraumatic, normocephalic, normal inspection Eye exam: Present: normal appearance, PERRL, EOMI. Absent: scleral icterus, conjunctival injection, periorbital swelling ENT exam: Present: normal exam, mucous membranes moist Neck exam: Present: normal inspection. Absent: tenderness, meningismus, lymphadenopathy Respiratory exam: Present: normal lung sounds bilaterally, other (scar mid chest). Absent: respiratory distress, wheezes, rales, rhonchi, stridor Cardiovascular Exam: Present: regular rate, normal rhythm, normal heart sounds. Absent: systolic murmur, diastolic murmur, rubs, gallop, clicks GI/Abdominal exam: Present: soft, normal bowel sounds. Absent: distended, tenderness, guarding, rebound, rigid Extremities exam: Present: normal inspection, full ROM, normal capillary refill. Absent: tenderness, pedal edema, joint swelling, calf tenderness Back exam: Present: normal inspection Neurological exam: Present: alert, oriented X3, CN II-XII intact Course Vital Signs 05/25/20 21:02 Temperature 98.1 F Pulse Rate 118 H Respiratory 18 Rate Blood Pressure 156/68 O2 Sat by Pulse 98 Oximetry Chest Pain MDM - MDM 65-year-old male with extensive cardiac history presents emergency department today with increased fatigue, chest pain and labile blood pressures for the past few days.Patient reports that his chest pain felt better after receiving nitro tablet. Patient EKG was reviewed and shows no significant change. Troponin is negative. The patient's extensive cardiac history in reviewing patient's cardiac cath from last year I discussed with his risk factors concern for admission. Labs did show slightly elevated BUN and creatinine. I discussed the case with Dr. SUTTON whom discussed with Dr. Jenkins. We'll consult Dr. Wiggins his fire hose curer. Disposition Clinical Impression: Unstable angina Disposition: ADMITTED IP TO THIS HOSP Condition: Stable Is patient prescribed a controlled substance at d/c from ED?: No Referrals: Alexx Gee MD [Primary Care Provider] - 1-2 days Time of Disposition: 22:33
[2020-05-25 21:42] LABS: Basophils # (A) 0.1 k/uL (0-0.2); Basophils % (A) 1 %; Eosinophils # (A) 0.2 k/uL (0-0.7); Eosinophils % (A) 2 %; HCT 42.7 % (39.0-53.0); Lymphocytes # (A) 3.6 k/uL (1.0-4.8); Lymphocytes % (A) 42 %; MCH 31.8 pg (25.0-35.0); MCHC 32.7 g/dL (31.0-37.0); Mean Platelet Volume 9.5; Monocytes # (A) 0.4 k/uL (0-1.0); Monocytes % (A) 5 %; Neutrophils # (A) 4.3 k/uL (1.3-7.7); Neutrophils % (A) 50 %; Platelet Count 171 k/uL (150-450); RBC 4.41 m/uL (4.30-5.90); WBC 8.6 k/uL (3.8-10.6)
[2020-05-25 21:50] LABS: Albumin 4.3 g/dL (3.5-5.0); Magnesium 2.1 mg/dL (1.6-2.3); Potassium 4.7 mmol/L (3.5-5.1); Total Bilirubin 0.6 mg/dL (0.2-1.3); Total Protein 7.2 g/dL (6.3-8.2)
[2020-05-25 21:59] LABS: Partial Thromboplastin Time 23.9 sec (22.0-30.0); Prothrombin Time 10.2 sec (9.0-12.0)
--- NOTE | 2020-05-25 22:30 | XR ---
EXAM: XR Chest, 2 Views CLINICAL HISTORY: Chest Pain TECHNIQUE: Frontal and lateral views of the chest. COMPARISON: 08/09/16 FINDINGS: Lungs: No significant abnormality. No consolidation. Pleural space: No significant abnormality. No pneumothorax. Heart: Stable cardiomediastinal silhouette. Mediastinum: Stable postoperative mediastinum. Bones/joints: No acute osseous abnormality. Tubes, lines and devices: Telemetry leads overlie the patient. IMPRESSION: No acute cardiopulmonary process.
[2020-05-25] MEDS ORDERED: NITROGLYCERIN SL TABS 0.4 MG TAB SUBLINGUAL PRN (22:34)
[2020-05-25] MEDS ORDERED: CYCLOBENZAPRINE 10 MG TAB PO PRN (22:36)
[2020-05-25] MEDS ORDERED: ALPRAZolam 1 MG TAB PO PRN (22:36)
[2020-05-25] MEDS ORDERED: GABAPENTIN 300 MG CAP PO PRN (22:36)
[2020-05-25] MEDS: HYDROcodone/APAP 10-325MG 1 EACH TAB PO PRN (22:59)
[2020-05-26 04:13] LABS: Cholesterol 147 mg/dL (<200); HDL Cholesterol 25 mg/dL (40-60); LDL Cholesterol,Calculated 48 mg/dL (0-99); Triglycerides 370 mg/dL (<150)
[2020-05-26] MEDS ORDERED: METOPROLOL TARTRATE 50 MG TAB PO SCH (09:00)
[2020-05-26] MEDS ORDERED: ASPIRIN 325 MG TAB PO SCH (09:00)
[2020-05-26] MEDS ORDERED: lisinopriL 20 MG TAB PO SCH (09:00)
[2020-05-26 09:34] LABS: Calcium 8.7 mg/dL (8.4-10.2); Potassium 4.6 mmol/L (3.5-5.1)
--- NOTE | 2020-05-26 09:43 | US ---
EXAMINATION TYPE: US kidneys/renal and bladder DATE OF EXAM: 05/26/2020 COMPARISON: Ultrasound dated 03/03/2016 CLINICAL HISTORY: flank pain. Bilateral flank pain, back pain x years; microscopic hematuria per patient EXAM MEASUREMENTS: Right Kidney: 10.6 x 5.7 x 5.6 cm Left Kidney: 11.0 x 5.7 x 6.7 cm Post Void Residual Volume: not assessed on EC patient Right Kidney: No hydronephrosis or masses seen Left Kidney: No hydronephrosis or masses seen Bladder: wnl Bilateral Jets seen: not seen after 3 minute observation There is no evidence for hydronephrosis at this point in time. No nephrolithiasis is seen. No jackson s are identified. The urinary bladder is anechoic and contracted, kidneys show normal cortical medul celso differentiation. IMPRESSION: No evident hydronephrosis or renal calculus
[2020-05-26] MEDS: ISOSORBIDE MONONITRATE ER 30 MG TAB.ER.24H PO SCH (09:57)
[2020-05-26] MEDS: buPROPion SR 150 MG TABLET.ER PO SCH ×2 (09:57→21:01)
[2020-05-26] MEDS: ASPIRIN 81 MG PO SCH (09:57)
[2020-05-26] MEDS: HYDROcodone/APAP 10-325MG 1 EACH TAB PO PRN ×3 (09:58→23:49)
[2020-05-26] MEDS: FLUTICASONE 50MCG/SPRAY NASAL 16GM EA NOSTRIL SCH (09:58)
[2020-05-26] MEDS: SODIUM CHLORIDE 0.9% 1,000 ML IV SCH ×2 (09:59→12:09)
[2020-05-26] MEDS: METOPROLOL TARTRATE 25 MG TAB PO SCH ×2 (10:01→20:27)
--- NOTE | 2020-05-26 10:19 | P.CRDCN ---
History of Present Illness History of present illness: This is a pleasant 65-year-old male past medical history significant for coronary artery disease s/p bypass grafting with progression of CAD and graft stenosis per recent cath from 11/2018. He also has COPD, hypertension, dyslipidemia, obstructive sleep apnea, chronic nicotine dependence and chronic back pain. He follows in the office with Dr. Ni. We have been asked to see him in consultation secondary to chest discomfort. He states for the previous couple of days he has been experiencing problems with his blood pressure. He states it has been running on the high side at home. He also has having discomfort in the right flank region. Yesterday he had a discomfort in his chest that was described as a pressure-like sensation. There was no radiation to the arm, back, neck or jaw. Last year at this time he had a lengthy discussion and workup with Dr. Wiggins and cardiothoracic surgery and he declined having a redo bypass grafting. He opted for medical therapy. He states from a cardiac perspective for the previous one year he has been averaging quite well. He has had no chest pain, shortness of breath, dizziness or palpitations up until the last 2 days. He is seen and examined resting comfortably in no acute distress. He does have significant discomfort in the right flank region with movement. He denies burning with urination. EKG reveals sinus mechanism with sinus arrhythmia heart rate of 61 with inferior Q waves. Chest x-ray is negative for an acute cardiopulmonary process. Laboratory data reviewed, CBC unremarkable, sodium 138, potassium 4.6, creatinine on admission 1.82 and repeat this morning after some fluid hydration is 1.72, magnesium 2.1, cardiac enzymes negative 3, and Cipro BNP 1270, LDL 48, HDL 25 and triglycerides 370. Current cardiac medications include Ranexa 1000 mg twice a day, pravastatin 80 mg at bedtime, fenofibrate 48 mg at bedtime, Lopressor 50 mg twice a day, Lasix 40 mg daily, Plavix 75 mg daily, lisinopril 40 mg daily and aspirin 325 mg daily. Most recent echocardiogram obtained December 2017 reveals preserved LV systolic function with ejection fraction 55-60%, mild MR and mild TR noted. Cardiac catheterization from November revealed the left main was angiographically normal with no evidence of significant stenosis, ostial circumflex with a tight lesion in the range of 70%, ostial lesion of the first OM and range of 70-80%, ostial lesion of the ramus 70-80%, 100% occluded LAD at the ostium, 100% occluded RCA at the ostium. Previously stented SVG to LAD with in-stent restenosis in the range of 60-70%, SVG to RCA is diffusely diseased At the time of my exam: CONSTITUTIONAL: Denies fever. Denies chills. EYES: Denies blurred vision. Denies vision changes. Denies eye pain. EARS, NOSE, MOUTH & THROAT: Denies headache. Denies sore throat. Denies ear pain. CARDIOVASCULAR: Denies chest pain. Denies shortness of breath. Denies orthopnea. Denies PND. Denies palpitations. RESPIRATORY: Denies cough. GASTROINTESTINAL: Complains of right flank pain. Denies abdominal pain. Denies diarrhea. Denies constipation. Denies nausea. Denies vomiting. MUSCULOSKELETAL: Denies myalgias. INTEGUMENTARY: Denies pruitis. Denies rash. NEUROLOGIC: Denies numbness. Denies tingling. Denies weakness. PSYCHIATRIC: Denies anxiety. Denies depression. ENDOCRINE: Denies fatigue. Denies weight change. Denies polydipsia. Denies polyurina. GENITOURINARY: Denies burning, hematuria or urgency with micturation. HEMATOLOGIC: Denies history of anemia. Denies bleeding. Blood pressure 120/66 heart rate 48 afebrile maintaining oxygen saturation on room air. GENERAL: This is a 65-year-old male in no apparent distress at the time of my examination. HEENT: Head is atraumatic, normocephalic. Pupils are equal, round. Sclerae anicteric. Conjunctivae are clear. Mucous membranes of the mouth are moist. Neck is supple. There is no jugular venous distention. No carotid bruit is heard. LUNGS: Clear to auscultation no wheezes, rales or rhonchi. No chest wall tenderness is noted on palpation or with deep breathing. HEART: Regular rate and rhythm without murmurs, rubs or gallops. S1 and S2 heard. ABDOMEN: Soft, nontender. Bowel sounds are heard. No organomegaly noted. EXTREMITIES: No evidence of peripheral edema and no calf tenderness noted. VASCULAR: Radial and dorsalis pedis pulses palpated, no evidence of clubbing. NEUROLOGIC: Patient is awake, alert and oriented x3. ASSESSMENT Chest pain, known coronary artery disease on maximum medical therapy status post bypass grafting and subsequent stent placement with occluded grafts. An acute coronary event has been ruled out. Right flank pain Acute kidney injury Hypertension Dyslipidemia COPD Obstructive sleep apnea Chronic nicotine dependence PLAN Request an ultrasound of the kidneys. Obtain urinalysis. Request nephrology consultation. Repeat BMP in the morning. Cautiously hydrate with 0.9 normal saline at 100 mL per hour. Decrease Lopressor to 25 mg twice a day and aspirin to 81 mg daily. Repeat 2-D echocardiogram and Doppler study to assess cardiac structure and function. Further recommendations to follow based on clinical course. Thank you kindly for this consultation. Nurse Practitioner note has been reviewed, I agree with a documented findings and plan of care. Patient was seen and examined. Past Medical History Past Medical History: Coronary Artery Disease (CAD), Chest Pain / Angina, COPD, GERD/Reflux, Hyperlipidemia, Hypertension, Myocardial Infarction (HI), Osteoarthritis (OA), Sleep Apnea/CPAP/BIPAP Additional Past Medical History / Comment(s): hiatal hernia, chronic back pain, L foot drop, numbness/tingling bilateral legs, HUSAM without device, CHF once per pt, pt denies ever having HI, had some chest pain 3-4 days ago, taken to [facility], left AMA Last Myocardial Infarction Date:: ?01/20/18 History of Any Multi-Drug Resistant Organisms: None Reported Past Surgical History: Back Surgery, Cholecystectomy, Coronary Bypass/CABG, Heart Catheterization With Stent, Orthopedic Surgery Additional Past Surgical History / Comment(s): Back surg x 2 with cage. L tennis elbow surg. HEART STENTS X7. Colonoscopy. Lasik eye surgery bilaterally. Past Anesthesia/Blood Transfusion Reactions: No Reported Reaction Additional Past Anesthesia/Blood Transfusion Reaction / Comment(s): Pt received blood during CABG without reaction. Date of Last Stent Placement:: May 2018 Past Psychological History: Anxiety, Depression, PTSD Past Alcohol Use History: None Reported Past Drug Use History: Cocaine - Past Family History Father Family Medical History: Coronary Artery Disease (CAD), Deep Vein Thrombosis (DVT), GERD/Reflux, Hyperlipidemia Additional Family Medical History / Comment(s): Father of a HI in his 80's Mother Family Medical History: Coronary Artery Disease (CAD) Additional Family Medical History / Comment(s): Mother of a HI at the age of 76yrs. Sister(s) Family Medical History: Cancer Additional Family Medical History / Comment(s): Lung cancer. Medications and Allergies Home Medications Medication Instructions Recorded Confirmed Type HYDROcodone/APAP 10-325MG [[place] 1 tab PO QID PRN 02/22/15 05/25/20 History 10-325] ALPRAZolam [Xanax] 2 mg PO BID PRN 02/23/15 05/25/20 History Esomeprazole Magnesium [NexIUM] 20 mg PO DAILY 09/29/17 05/25/20 History rOPINIRole HCL [Requip] 0.25 mg PO HS 09/29/17 05/25/20 History Cyclobenzaprine HCl 10 mg PO TID PRN 06/11/18 05/25/20 History Fenofibrate Nanocrystallized 48 mg PO HS 06/11/18 05/25/20 History [Fenofibrate] Fluticasone Nasal [place] [Flonase 1 spray EA NOSTRIL DAILY 06/11/18 05/25/20 History Nasal [place]] Clopidogrel [Plavix] 75 mg PO HS 12/18/18 05/25/20 History Aspirin 325 mg PO DAILY #100 tab 05/13/19 05/25/20 Rx Furosemide [Lasix] 40 mg PO DAILY 05/13/19 05/25/20 History Metoprolol Tartrate [Lopressor] 50 mg PO BID 05/13/19 05/25/20 History Nitroglycerin Sl Tabs [Nitrostat] 0.4 mg SUBLINGUAL Q5M PRN 05/13/19 05/25/20 History Ranolazine [Ranexa] 1,000 mg PO Q12HR #60 tab.er.12h 05/13/19 05/25/20 Rx buPROPion SR [Wellbutrin SR] 150 mg PO BID 05/13/19 05/25/20 History lisinopriL 40 mg PO DAILY 05/13/19 05/25/20 History Albuterol Sulfate [Ventolin HFA] 2 puff INHALATION RT-Q4H PRN 05/25/20 05/25/20 History DULoxetine HCL [Cymbalta] 60 mg PO DAILY 05/25/20 05/25/20 History Pravastatin Sodium 80 mg PO HS 05/25/20 05/25/20 History traZODone HCL [Desyrel] 100 mg PO HS PRN 05/25/20 05/25/20 History Allergies Allergy/AdvReac Type Severity Reaction Status Date / Time latex Allergy Swelling Verified 05/25/20 22:47 atorvastatin [From Lipitor] AdvReac JOINT PAIN Verified 05/25/20 22:47 Physical Exam Vitals: Vital Signs Temp Pulse Pulse Resp BP Pulse Ox 05/26/20 09:52 48 L 18 120/66 99 05/26/20 08:41 51 L 05/26/20 08:29 50 L 18 117/68 99 05/26/20 05:56 51 L 16 108/54 97 05/26/20 01:56 52 L 18 105/82 98 05/25/20 22:57 55 L 16 107/55 96 05/25/20 21:02 98.1 F 118 H 18 156/68 98 Intake and Output 05/25/20 05/26/20 05/26/20 22:59 06:59 14:59 Other: Weight 114.759 kg Results 05/25/20 21:32 05/26/20 03:34 Cardiac Enzymes 05/25/20 05/25/20 05/26/20 Range/Units 21:32 21:32 00:57 AST 31 (17-59) U/L Troponin I <0.012 <0.012 (0.000-0.034) ng/mL 05/26/20 Range/Units 03:34 AST (17-59) U/L Troponin I <0.012 (0.000-0.034) ng/mL Coagulation 05/25/20 Range/Units 21:32 PT 10.2 (9.0-12.0) sec APTT 23.9 (22.0-30.0) sec Lipids 05/26/20 Range/Units 03:34 Triglycerides 370 H (<150) mg/dL Cholesterol 147 (<200) mg/dL HDL Cholesterol 25 L (40-60) mg/dL CBC 05/25/20 Range/Units 21:32 WBC 8.6 (3.8-10.6) k/uL RBC 4.41 (4.30-5.90) m/uL Hgb 14.0 (13.0-17.5) gm/dL Hct 42.7 (39.0-53.0) % Plt Count 171 (150-450) k/uL Comprehensive Metabolic Panel 05/25/20 05/26/20 Range/Units 21:32 03:34 Sodium 137 138 (137-145) mmol/L Potassium 4.7 4.6 (3.5-5.1) mmol/L Chloride 107 109 H (98-107) mmol/L Carbon Dioxide 22 22 (22-30) mmol/L BUN 27 H 27 H (9-20) mg/dL Creatinine 1.82 H 1.72 H (0.66-1.25) mg/dL Glucose 121 H 94 (74-99) mg/dL Calcium 9.0 8.7 (8.4-10.2) mg/dL AST 31 (17-59) U/L ALT 17 (4-49) U/L Alkaline Phosphatase 76 (38-126) U/L Total Protein 7.2 (6.3-8.2) g/dL Albumin 4.3 (3.5-5.0) g/dL Current Medications Generic Name Dose Route Start Last Admin Trade Name Freq PRN Reason Stop Dose Admin Hydrocodone Bitart/Acetaminophen 1 each 05/25/20 22:36 05/26/20 09:58 [place] 10 PO 1 each QID PRN Administration Pain Alprazolam 2 mg 05/25/20 22:36 Xanax PO BID PRN Anxiety Aspirin 81 mg 05/26/20 09:00 05/26/20 09:57 Aspirin PO 81 mg DAILY ELIANA Administration Bupropion HCl 150 mg 05/26/20 09:00 05/26/20 09:57 Wellbutrin Sr PO 150 mg BID ELIANA Administration Clopidogrel Bisulfate 75 mg 05/26/20 21:00 Plavix PO HS [facility] Cyclobenzaprine HCl 10 mg 05/25/20 22:36 Flexeril PO TID PRN Muscle Spasm Fenofibrate 54 mg 05/26/20 21:00 Lofibra PO HS [facility] Fluticasone Propionate 1 spray 05/26/20 09:00 05/26/20 09:58 Flonase Nasal [place] EA NOSTRIL 1 spray DAILY ELIANA Administration Gabapentin 600 mg 05/25/20 22:36 Neurontin PO QID PRN Pain Sodium Chloride 1,000 mls @ 100 mls/hr 05/26/20 09:00 05/26/20 09:59 Saline 0.9% IV 100 mls/hr .Q10H ELIANA Administration Isosorbide Mononitrate 30 mg 05/26/20 09:00 05/26/20 09:57 Imdur PO 30 mg DAILY ELIANA Administration Lisinopril 40 mg 05/26/20 09:00 05/26/20 09:57 Zestril PO 40 mg DAILY ELIANA Administration Metoprolol Tartrate 25 mg 05/26/20 09:00 05/26/20 10:01 Lopressor PO Not Given BID ELIANA Nitroglycerin 0.4 mg 05/25/20 22:34 Nitrostat SUBLINGUAL Q5M PRN Chest Pain Pravastatin Sodium 20 mg 05/26/20 21:00 Pravachol PO HS ELIANA Ranolazine 1,000 mg 05/26/20 09:00 Ranexa PO Q12HR ELIANA Ropinirole HCl 0.25 mg 05/26/20 21:00 Requip PO HS ELIANA Intake and Output 05/25/20 05/26/20 05/26/20 22:59 06:59 14:59 Other: Weight 114.759 kg 05/25/20 21:32 05/26/20 03:34
--- NOTE | 2020-05-26 10:40 | P.NPCON ---
History of Present Illness - Reason for Consult acute renal failure, chronic renal failure - History of Present Illness Reason for consultation: Acute kidney injury on chronic kidney disease History of present illness: Patient is a 65-year-old male seen in renal consultation for acute kidney injury on chronic kidney disease. Patient has chronic kidney disease stage III with creatinine near 1.2 in April 2019. This admission was 1.82 yesterday and is 1.72 today. He is maintained on normal saline at 100 mL an hour. Patient presented to the hospital with chest pain going on for about 3-4 days. He describes the pain as sharp on the left side of his chest. He also had pain in his left shoulder. Patient states it did improve with nitroglycerin which he got this morning. He denies any vomiting or diarrhea. Oral intake is good. He has been voiding. Denies gross hematuria or dysuria. Denies use of nonsteroidals. No history of diabetes. Denies family history of renal disease. He does have extensive cardiac history and states he's had CABG in the past and also has 6 stents. Chest x-ray was not suggestive of fluid overload. Denies edema in his lower extremities. No hydronephrosis noted on kidney ultrasound. Blood pressure stable. Vital signs are stable. General: The patient appeared well nourished and normally developed. HEENT: Head exam is unremarkable. Neck is without jugular venous distension. LUNGS: Breath sounds decreased. HEART: Rate and Rhythm are regular. ABDOMEN: Soft, nontender. EXTREMITITES: No clubbing, cyanosis, or edema. Past Medical History Past Medical History: Coronary Artery Disease (CAD), Chest Pain / Angina, COPD, GERD/Reflux, Hyperlipidemia, Hypertension, Myocardial Infarction (IA), Osteoarthritis (OA), Sleep Apnea/CPAP/BIPAP Additional Past Medical History / Comment(s): hiatal hernia, chronic back pain, L foot drop, numbness/tingling bilateral legs, HUSAM without device, CHF once per pt, pt denies ever having IA, had some chest pain 3-4 days ago, taken to [facility], left AMA Last Myocardial Infarction Date:: ?01/20/18 History of Any Multi-Drug Resistant Organisms: None Reported Past Surgical History: Back Surgery, Cholecystectomy, Coronary Bypass/CABG, Heart Catheterization With Stent, Orthopedic Surgery Additional Past Surgical History / Comment(s): Back surg x 2 with cage. L tennis elbow surg. HEART STENTS X7. Colonoscopy. Lasik eye surgery bilaterally. Past Anesthesia/Blood Transfusion Reactions: No Reported Reaction Additional Past Anesthesia/Blood Transfusion Reaction / Comment(s): Pt received blood during CABG without reaction. Date of Last Stent Placement:: May 2018 Past Psychological History: Anxiety, Depression, PTSD Past Alcohol Use History: None Reported Past Drug Use History: Cocaine - Past Family History Father Family Medical History: Coronary Artery Disease (CAD), Deep Vein Thrombosis (DVT), GERD/Reflux, Hyperlipidemia Additional Family Medical History / Comment(s): Father of a IA in his 80's Mother Family Medical History: Coronary Artery Disease (CAD) Additional Family Medical History / Comment(s): Mother of a IA at the age of 76yrs. Sister(s) Family Medical History: Cancer Additional Family Medical History / Comment(s): Lung cancer. Medications and Allergies Home Medications Medication Instructions Recorded Confirmed Type HYDROcodone/APAP 10-325MG [[place] 1 tab PO QID PRN 02/22/15 05/25/20 History 10-325] ALPRAZolam [Xanax] 2 mg PO BID PRN 02/23/15 05/25/20 History Esomeprazole Magnesium [NexIUM] 20 mg PO DAILY 09/29/17 05/25/20 History rOPINIRole HCL [Requip] 0.25 mg PO HS 09/29/17 05/25/20 History Cyclobenzaprine HCl 10 mg PO TID PRN 06/11/18 05/25/20 History Fenofibrate Nanocrystallized 48 mg PO HS 06/11/18 05/25/20 History [Fenofibrate] Fluticasone Nasal [place] [Flonase 1 spray EA NOSTRIL DAILY 06/11/18 05/25/20 History Nasal [place]] Clopidogrel [Plavix] 75 mg PO HS 12/18/18 05/25/20 History Aspirin 325 mg PO DAILY #100 tab 05/13/19 05/25/20 Rx Furosemide [Lasix] 40 mg PO DAILY 05/13/19 05/25/20 History Metoprolol Tartrate [Lopressor] 50 mg PO BID 05/13/19 05/25/20 History Nitroglycerin Sl Tabs [Nitrostat] 0.4 mg SUBLINGUAL Q5M PRN 05/13/19 05/25/20 History Ranolazine [Ranexa] 1,000 mg PO Q12HR #60 tab.er.12h 05/13/19 05/25/20 Rx buPROPion SR [Wellbutrin SR] 150 mg PO BID 05/13/19 05/25/20 History lisinopriL 40 mg PO DAILY 05/13/19 05/25/20 History Albuterol Sulfate [Ventolin HFA] 2 puff INHALATION RT-Q4H PRN 05/25/20 05/25/20 History DULoxetine HCL [Cymbalta] 60 mg PO DAILY 05/25/20 05/25/20 History Pravastatin Sodium 80 mg PO HS 05/25/20 05/25/20 History traZODone HCL [Desyrel] 100 mg PO HS PRN 05/25/20 05/25/20 History Allergies Allergy/AdvReac Type Severity Reaction Status Date / Time latex Allergy Swelling Verified 05/25/20 22:47 atorvastatin [From Lipitor] AdvReac JOINT PAIN Verified 05/25/20 22:47 Physical Exam Vitals: Vital Signs Temp Pulse Pulse Resp BP Pulse Ox 05/26/20 09:52 48 L 18 120/66 99 05/26/20 08:41 51 L 05/26/20 08:29 50 L 18 117/68 99 05/26/20 05:56 51 L 16 108/54 97 05/26/20 01:56 52 L 18 105/82 98 05/25/20 22:57 55 L 16 107/55 96 05/25/20 21:02 98.1 F 118 H 18 156/68 98 Intake and Output 05/25/20 05/26/20 05/26/20 22:59 06:59 14:59 Other: Weight 114.759 kg Results - Lab Results Most recent lab results Calcium 8.7 mg/dL (8.4-10.2) 05/26/20 03:34 Magnesium 2.1 mg/dL (1.6-2.3) 05/25/20 21:32 05/25/20 21:32 05/26/20 03:34 Assessment and Plan Plan: Assessment: 1. Acute kidney injury mostly prerenal improving with IV hydration. Creatinine 1.82 admission and is 1.72 today. No hydronephrosis noted on kidney ultrasound. 2. Chronic kidney disease stage III secondary to nephrosclerosis. Creatinine 1.2 in April 2019. 3. Chest pain. Troponins negative. Cardiology following. 4. History of coronary artery disease status post CABG and also has multiple stents. 5. Hypertension with chronic kidney disease. Controlled. Plan: Maintain IV fluids for now but I will decrease the rate. Check urinalysis. Decrease lisinopril to 20 mg daily. Avoid nephrotoxins. Follow-up echocardiogram. Thank you for the consultation. I will continue to follow the patient with you during his hospital stay.
[2020-05-26] MEDS: RANOLAZINE 500 MG TAB.ER.12H PO SCH ×2 (11:28→20:27)
--- NOTE | 2020-05-26 11:43 | ECHOF ---
Referral Reason:cp MEASUREMENTS -------- HEIGHT: 175.3 cm WEIGHT: 114.8 kg BP: 117/68 RVIDd: 3.3 cm (< 3.3) IVSd: 1.5 cm (0.6 - 1.1) LVIDd: 5.2 cm (3.9 - 5.3) LVPWd: 1.4 cm (0.6 - 1.1) IVSs: 1.9 cm LVIDs: 3.8 cm LVPWs: 1.6 cm LA Diam: 3.8 cm (2.7 - 3.8) LAESV Index (A-L): 27.23 ml/m Ao Diam: 3.7 cm (2.0 - 3.7) AV Cusp: 2.1 cm (1.5 - 2.6) MV EXCURSION: 18.069 mm (> 18.000) MV EF SLOPE: 75 mm/s (70 - 150) EPSS: 1.1 cm MV E Daniel: 1.05 m/s MV DecT: 155 ms MV A Daniel: 0.56 m/s MV E/A Ratio: 1.87 AR PHT: 1350 ms RAP: 5.00 mmHg RVSP: 25.55 mmHg FINDINGS -------- Sinus rhythm. This was a technically adequate study. The left ventricular size is normal. There is moderate concentric left ventricular hypertrophy. O verall left ventricular systolic function is normal with, an EF between 55 - 60 %. The right ventricle is mildly enlarged. Normal LA size by volume 22+/-6 ml/m2. The right atrium is normal in size. Interatrial and interventricular septum intact. There is mild aortic valve sclerosis. There is mild aortic regurgitation. The mitral valve is normal. Mild tricuspid regurgitation present. Right ventricular systolic pressure is normal at < 35 mmHg. Trace/mild (physiologic) pulmonic regurgitation. The aortic root size is normal. The inferior vena cava is mildly dilated. There is no pericardial effusion. CONCLUSIONS -------- 1. The left ventricular size is normal. 2. There is moderate concentric left ventricular hypertrophy. 3. The right ventricle is mildly enlarged. 4. There is mild aortic valve sclerosis. 5. There is mild aortic regurgitation. 6. Mild tricuspid regurgitation present. 7. Trace/mild (physiologic) pulmonic regurgitation. 8. The aortic root size is normal. 9. The inferior vena cava is mildly dilated. 10. There is no pericardial effusion. RELATIONSHIP SPECIALIST: Maria R Melo RDCS
[2020-05-26 14:29] LABS: Appearance,Urine Clear (Clear); Bilirubin,Urine Negative (Negative); Blood,Urine Negative (Negative); Color,Urine Yellow; Glucose,Urine (UA) Negative (Negative); Ketones,Urine Negative (Negative); Leukocyte Esterase,Urine Negative (Negative); Nitrite,Urine Negative (Negative); PH, Urine 5.5 (5.0-8.0); Protein,Urine Negative (Negative); Specific Gravity,Urine 1.021 (1.001-1.035); Urobilinogen,Urine <2.0 mg/dL (<2.0)
--- NOTE | 2020-05-26 18:11 | HP ---
HISTORY AND PHYSICAL CHIEF COMPLAINT: Weakness, lethargy, hypotension. HISTORY OF PRESENT ILLNESS: This is another admission for this 65-year-old white male who has severe and advanced coronary artery disease. He has been referred out to a [facility] hospital for a coronary artery bypass graft, but it is currently felt to be too risky. He has been doing fairly well but started to feel lightheaded and dizzy and was hypotensive. He went to [facility], where they treated him and then released him. He reports that his blood pressure was in the 80s, but the report from the hospital revealed that it was around 102 to 110. He denies any chest pain, diaphoresis, nausea, vomiting, fever, chills, myalgias, etc. Because of his symptoms, he was directed to the emergency room. Evaluation in the emergency room demonstrated no elevation of troponin. However, there was a question regarding his renal status and if it had deteriorated. He does have CKD. He apparently also demonstrated some hematuria. He denied any flank pain, dysuria, nocturia, incontinence, etc. REVIEW OF SYSTEMS: He has had no focal neurologic deficits, change in vision or hearing, cough, hemoptysis, pleurisy, palpitations, syncope, abdominal pain, nausea, vomiting, hematemesis, melena, hematochezia, jaundice, nocturia, dysuria, history of stones, etc. He is not diabetic. Past medical history, family history, and personal and social histories reveal that he has had a prior CABG. He was treated for hypertension and congestive heart failure. He has peripheral neuropathy affecting the lower extremities. He has issues also with peripheral vascular occlusive disease. He continues to smoke and states that he is a nondrinker. Laboratory studies when last obtained in the office were in September of 2019 where he had a cholesterol of 216, HDL of 32 and an LDL of 143. Triglycerides were 268. His BUN was 30 with a creatinine of 1.4, and his GFR was 52, making him in stage 2. PHYSICAL EXAMINATION: Blood pressure is 105/64 with a pulse of 69, respirations of 34, and he is afebrile. In general he appears to be overweight and in no acute distress. Skin is dry and lymph nodes are not enlarged. Head, ears, eyes, nose, mouth and throat are normal and neck veins are not distended. Carotids seem to be normal. Chest is clear to auscultation. Cardiac exam demonstrates sinus rhythm with no murmurs or extra sounds. The abdomen is protuberant, soft and nontender without any masses or visceromegaly. Bowel sounds are present. Extremities are normal. Neurologically he is intact. He is admitted to the hospital with the diagnoses: 1. Generalized weakness. 2. Episodes of hypotension. 3. Coronary artery disease, status post coronary artery bypass grafting. 4. History of congestive heart failure. 5. Peripheral vascular occlusive disease. 6. Chronic obstructive pulmonary disease. 7. Obesity. 8. Depression. 9. Hypotension. PLAN: 1. Bed rest. 2. IV fluids. 3. Serial EKGs and enzymes. 4. Cardiology consult. 5. Echocardiogram. 6. Watch renal function. 7. Evaluate for hematuria. MMODL / IJN: [id number] /
--- NOTE | 2020-05-26 18:16 | PN ---
PROGRESS NOTE DATE OF SERVICE: 05/26/2020. CHIEF COMPLAINT: Weakness, hypotension, coronary artery disease and CHF with renal failure and possible hematuria. HISTORY OF PRESENT ILLNESS: This gentleman is comfortable and does not have any chest pain or shortness of breath at this time. Vital signs are normal with the blood pressure running around 110 to115. PHYSICAL EXAMINATION: His chest is clear. Cardiac exam is normal sinus rhythm. The abdomen is protuberant, soft, nontender. Extremities are normal and flanks are nontender. IMPRESSION: 1. Weakness. 2. History of hypotension. 3. History of coronary artery disease, status post coronary artery bypass grafting. 4. Renal failure. 5. Hematuria. PLAN: Continue workup. He is being seen by Cardiology. MMODL / IJN: [id number] /
[2020-05-26] MEDS ORDERED: PRAVASTATIN SODIUM 20 MG TAB PO SCH (21:00)
[2020-05-26] MEDS ORDERED: CLOPIDOGREL 75 MG TAB PO SCH (21:00)
[2020-05-26] MEDS ORDERED: FENOFIBRATE 54 MG TAB PO SCH (21:00)
[2020-05-27 07:24] LABS: Basophils % (A) 1 %; Eosinophils # (A) 0.2 k/uL (0-0.7); Eosinophils % (A) 2 %; HCT 40.1 % (39.0-53.0); HGB 12.8 gm/dL (13.0-17.5); Lymphocytes # (A) 2.7 k/uL (1.0-4.8); Lymphocytes % (A) 39 %; MCH 31.4 pg (25.0-35.0); MCHC 31.9 g/dL (31.0-37.0); MCV 98.3 fL (80.0-100.0); Mean Platelet Volume 9.6; Monocytes # (A) 0.3 k/uL (0-1.0); Monocytes % (A) 5 %; Neutrophils # (A) 3.6 k/uL (1.3-7.7); Neutrophils % (A) 52 %; Platelet Count 123 k/uL (150-450); RBC 4.08 m/uL (4.30-5.90); RDW 13.2 % (11.5-15.5)
[2020-05-27 07:37] LABS: Calcium 8.8 mg/dL (8.4-10.2); Potassium 4.8 mmol/L (3.5-5.1)
[2020-05-27] MEDS: ISOSORBIDE MONONITRATE ER 30 MG TAB.ER.24H PO SCH (08:27)
[2020-05-27] MEDS: ASPIRIN 81 MG PO SCH (08:27)
[2020-05-27] MEDS: RANOLAZINE 500 MG TAB.ER.12H PO SCH (08:27)
[2020-05-27] MEDS: METOPROLOL TARTRATE 25 MG TAB PO SCH (08:28)
[2020-05-27] MEDS: buPROPion SR 150 MG TABLET.ER PO SCH (08:28)
[2020-05-27] MEDS: FLUTICASONE 50MCG/SPRAY NASAL 16GM EA NOSTRIL SCH (08:29)
[2020-05-27 08:43] VITALS: BP 106/63; PULSE 53; RESP 16; TEMP 98.1
[2020-05-27] MEDS ORDERED: lisinopriL 20 MG TAB PO SCH (09:00)
--- NOTE | 2020-05-27 09:07 | P.PN ---
Subjective Patient is seen in follow-up for acute kidney injury on chronic kidney disease. Patient has chronic kidney disease stage IIIB creatinine near 1.2 in April 2019. Creatinine was 1.82 on admission and is 1.58 today. He is maintained on normal saline. Denies chest pain or shortness of breath. Blood pressure on the lower side. Oral intake good. No edema. Vital signs are stable. General: The patient appeared well nourished and normally developed. HEENT: Head exam is unremarkable. Neck is without jugular venous distension. LUNGS: Lungs are clear to auscultation and percussion. Breath sounds decreased. HEART: Rate and Rhythm are regular. ABDOMEN: Soft, nontender. EXTREMITITES: No clubbing, cyanosis, or edema. Objective - Vital Signs Vital signs: Vital Signs Temp 98.1 F 05/27/20 08:41 Pulse 53 L 05/27/20 08:41 Resp 16 05/27/20 08:41 BP 106/63 05/27/20 08:41 Pulse Ox 97 05/27/20 08:41 Intake & Output 05/26/20 05/27/20 05/27/20 18:59 06:59 18:59 Intake Total 700 Output Total 550 Balance 150 Weight 114.759 kg Intake: IV 600 Sodium Chloride 0.9% 1, 200 000 ml @ 100 mls/hr IV . Q10H STA Rx#:[id number] Sodium Chloride 0.9% 1, 400 000 ml @ 50 mls/hr IV . Q20H ELIANA Rx#:[id number] Oral 100 Output: Urine 550 Other: # Voids 1 2 # Bowel Movements 1 - Labs CBC & Chem 7: 05/27/20 06:34 05/27/20 06:34 Labs: Abnormal Lab Results - Last 24 Hours (Table) 05/26/20 05/27/20 05/27/20 Range/Units 03:34 06:34 06:34 RBC 4.08 L (4.30-5.90) m/uL Hgb 12.8 L (13.0-17.5) gm/dL Plt Count 123 L (150-450) k/uL Sodium 136 L (137-145) mmol/L Chloride 109 H (98-107) mmol/L BUN 27 H 23 H (9-20) mg/dL Creatinine 1.72 H 1.58 H (0.66-1.25) mg/dL Assessment and Plan Plan: Assessment: 1. Acute kidney injury mostly prerenal improving with IV hydration. Creatinine 1.82 admission and is 1.58 today. No hydronephrosis noted on kidney ultrasound. UA benign. 2. Chronic kidney disease stage III secondary to nephrosclerosis. Creatinine 1.2 in April 2019. 3. Chest pain. Troponins negative. Cardiology following. 4. History of coronary artery disease status post CABG and also has multiple stents. 5. Hypertension with chronic kidney disease. Blood pressure on the lower side. Plan: Maintain normal saline. Decrease lisinopril to 5 mg once daily. Avoid hypotension. Continue to monitor renal function and urine output.
--- NOTE | 2020-05-27 09:39 | P.PN ---
Subjective This is a pleasant 65-year-old male past medical history significant for coronary artery disease s/p bypass grafting with progression of CAD and graft stenosis per recent cath from 11/2018. He also has COPD, hypertension, dyslipidemia, obstructive sleep apnea, chronic nicotine dependence and chronic back pain. He follows in the office with Dr. Wiggins. He is seen and examined sitting up in bed in no acute distress. He denies having any further symptoms of chest pain. Breathing is stable. No dizziness or palpitations. Blood pressure 106/63 heart rate 53 afebrile and maintaining oxygen saturation on room air. Laboratory data reviewed, WBC 7.0, hemoglobin 12.8, platelets 123, sodium 136, potassium 4.8, creatinine 1.5. Echocardiogram obtained reveals preserved LV systolic function with ejection fraction 55-60%, mild TR noted. He has been seen in consultation by nephrology and his lisinopril has been decreased to 5 mg daily. GENERAL: This is a 65-year-old male in no apparent distress at the time of my examination. HEENT: Head is atraumatic, normocephalic. Pupils are equal, round. Sclerae anicteric. Conjunctivae are clear. Mucous membranes of the mouth are moist. Neck is supple. There is no jugular venous distention. No carotid bruit is heard. LUNGS: Clear to auscultation no wheezes, rales or rhonchi. No chest wall tenderness is noted on palpation or with deep breathing. HEART: Regular rate and rhythm without murmurs, rubs or gallops. S1 and S2 heard. VASCULAR: Radial and dorsalis pedis pulses palpated, no evidence of clubbing. ASSESSMENT Chest pain, known coronary artery disease on maximum medical therapy status post bypass grafting and subsequent stent placement with occluded grafts. An acute coronary event has been ruled out. Right flank pain Acute kidney injury Hypertension Dyslipidemia COPD Obstructive sleep apnea Chronic nicotine dependence PLAN Stable from a cardiac perspective on current regimen. Following the office with Dr. Wiggins in one to 2 weeks. Nurse Practitioner note has been reviewed, I agree with a documented findings and plan of care. Patient was seen and examined. Objective - Vital Signs Vital signs: Vital Signs Temp 98.1 F 05/27/20 08:41 Pulse 53 L 05/27/20 08:41 Resp 16 05/27/20 08:41 BP 106/63 05/27/20 08:41 Pulse Ox 97 07/29/20 08:41 Intake & Output 05/26/20 05/27/20 05/27/20 18:59 06:59 18:59 Intake Total 700 Output Total 550 Balance 150 Weight 114.759 kg Intake: IV 600 Sodium Chloride 0.9% 1, 200 000 ml @ 100 mls/hr IV . Q10H STA Rx#:[id number] Sodium Chloride 0.9% 1, 400 000 ml @ 50 mls/hr IV . Q20H ELIANA Rx#:[id number] Oral 100 Output: Urine 550 Other: # Voids 1 2 # Bowel Movements 1 - Labs CBC & Chem 7: 05/27/20 06:34 05/27/20 06:34 Labs: Abnormal Lab Results - Last 24 Hours (Table) 05/27/20 05/27/20 Range/Units 06:34 06:34 RBC 4.08 L (4.30-5.90) m/uL Hgb 12.8 L (13.0-17.5) gm/dL Plt Count 123 L (150-450) k/uL Sodium 136 L (137-145) mmol/L BUN 23 H (9-20) mg/dL Creatinine 1.58 H (0.66-1.25) mg/dL
--- NOTE | 2020-05-27 17:47 | DS ---
DISCHARGE SUMMARY CHIEF COMPLAINT: Lightheadedness and hypotension. HISTORY OF PRESENT ILLNESS AND PHYSICAL EXAMINATION: Details of this man's history and physical can be found in the initial workup. LABORATORY STUDIES: While he was in the hospital he had laboratory studies, details of which can be found in the laboratory section of his chart. COURSE IN THE HOSPITAL: After admission he was placed on bedrest and started on intravenous fluids and seen by Cardiology. Cardiac enzymes remained normal. Renal function was not changed from what it has been. He had no neurologic episodes, chest pain or other abnormality to explain his weakness and hypotension. It was felt that he could go home on his usual usual activity, diet and medications, and he will be followed up in the office in a few days. FINAL DIAGNOSES: 1. Weakness, etiology unknown. 2. Hypotension, etiology unknown. 3. Coronary artery disease. 4. Congestive heart failure. 5. Renal failure. CONSULTATION: Cardiology. He is improved. MMODL / IJN: [id number] /
[2020-05-28] MEDS ORDERED: lisinopriL 5 MG TAB PO SCH (09:00)
== END 2020-05-27 14:27 | disposition home or self-care (01) ==
LOC: EC 21:01 → 3NCARDOBS 22:25 → INTOOBSV 05-27 10:01 → OBSVTOIN 05-27 10:01
PROVIDERS: ADMIT Family Medicine; ATTEND Family Medicine
DX: R07.89 Other chest pain (principal); I95.9 Hypotension, unspecified; R53.1 Weakness; N17.9 Acute kidney failure, unspecified; I25.810 Atherosclerosis of coronary artery bypass graft(s) without angina pectoris; I13.0 Hypertensive heart and chronic kidney disease with heart failure and stage 1 through stage 4 chronic kidney disease, or unspecified chronic kidney disease; N18.3 Chronic kidney disease, stage 3 (moderate); I50.9 Heart failure, unspecified; I49.8 Other specified cardiac arrhythmias; T82.855A Stenosis of coronary artery stent, initial encounter; I25.82 Chronic total occlusion of coronary artery; Z20.828 Contact with and (suspected) exposure to other viral communicable diseases; M19.90 Unspecified osteoarthritis, unspecified site; E78.5 Hyperlipidemia, unspecified; K21.9 Gastro-esophageal reflux disease without esophagitis; G47.33 Obstructive sleep apnea (adult) (pediatric); G89.29 Other chronic pain; M54.9 Dorsalgia, unspecified; J44.9 Chronic obstructive pulmonary disease, unspecified; M21.372 Foot drop, left foot; K44.9 Diaphragmatic hernia without obstruction or gangrene; F43.10 Post-traumatic stress disorder, unspecified; F41.9 Anxiety disorder, unspecified; F32.9 Major depressive disorder, single episode, unspecified; M25.512 Pain in left shoulder; R31.9 Hematuria, unspecified; G62.9 Polyneuropathy, unspecified; I99.8 Other disorder of circulatory system; E66.9 Obesity, unspecified; Z68.37 Body mass index [BMI] 37.0-37.9, adult; F17.200 Nicotine dependence, unspecified, uncomplicated; Z79.02 Long term (current) use of antithrombotics/antiplatelets; Z79.82 Long term (current) use of aspirin; Z79.891 Long term (current) use of opiate analgesic; Z79.899 Other long term (current) drug therapy; Z91.040 Latex allergy status; Z88.8 Allergy status to other drugs, medicaments and biological substances; I25.2 Old myocardial infarction; Z90.49 Acquired absence of other specified parts of digestive tract; Z95.1 Presence of aortocoronary bypass graft; Z99.89 Dependence on other enabling machines and devices; Z98.890 Other specified postprocedural states; Z95.5 Presence of coronary angioplasty implant and graft; Z82.49 Family history of ischemic heart disease and other diseases of the circulatory system; Z83.438 Family history of other disorder of lipoprotein metabolism and other lipidemia; Z83.79 Family history of other diseases of the digestive system; Z80.1 Family history of malignant neoplasm of trachea, bronchus and lung
CPT/HCPCS: 96361 ×3; 96360; 99285; 36415; 93005 ×2; 93306; 83880; 80061; 80053; 80048 ×2; 82150; 83690; 83735; 84484 ×2; 85025 ×2; 85610; 85730; 81003; 71046; 76770; G0378 ×3; U0003; S0106 ×2

== ENCOUNTER 2021-10-03 23:48 | Inpatient (IN) | payer MEDICARE, OTHER ==
[2021-10-04] MEDS ORDERED: SODIUM CHLORIDE 0.9% 1,000 ML IV STA (00:07)
--- NOTE | 2021-10-04 00:28 | ED ---
Chest Pain HPI - General Chief Complaint: Chest Pain Stated Complaint: Abnormal lab Time Seen by Provider: 10/04/21 00:01 Source: patient Mode of arrival: wheelchair Limitations: no limitations - Related Data Home Medications Medication Instructions Recorded Confirmed HYDROcodone/APAP 10-325MG [[place] 1 tab PO QID PRN 02/22/15 05/25/20 10-325] ALPRAZolam [Xanax] 2 mg PO BID PRN 02/23/15 05/25/20 Esomeprazole Magnesium [NexIUM] 20 mg PO DAILY 09/29/17 05/25/20 rOPINIRole HCL [Requip] 0.25 mg PO HS 09/29/17 05/25/20 Cyclobenzaprine HCl 10 mg PO TID PRN 06/11/18 05/25/20 Fenofibrate Nanocrystallized 48 mg PO HS 06/11/18 05/25/20 [Fenofibrate] Fluticasone Nasal [place] [Flonase 1 spray EA NOSTRIL DAILY 06/11/18 05/25/20 Nasal [place]] Clopidogrel [Plavix] 75 mg PO HS 12/18/18 05/25/20 Furosemide [Lasix] 40 mg PO DAILY 05/13/19 05/25/20 Metoprolol Tartrate [Lopressor] 50 mg PO BID 05/13/19 05/25/20 Nitroglycerin Sl Tabs [Nitrostat] 0.4 mg SUBLINGUAL Q5M PRN 05/13/19 05/25/20 buPROPion SR [Wellbutrin SR] 150 mg PO BID 05/13/19 05/25/20 lisinopriL 40 mg PO DAILY 05/13/19 05/25/20 Albuterol Sulfate [Ventolin HFA] 2 puff INHALATION RT-Q4H PRN 05/25/20 05/25/20 DULoxetine HCL [Cymbalta] 60 mg PO DAILY 05/25/20 05/25/20 Pravastatin Sodium 80 mg PO HS 05/25/20 05/25/20 traZODone HCL [Desyrel] 100 mg PO HS PRN 05/25/20 05/25/20 Previous Rx's Medication Instructions Recorded Aspirin 325 mg PO DAILY #100 tab 05/13/19 Ranolazine [Ranexa] 1,000 mg PO Q12HR #60 tab.er.12h 05/13/19 Allergies Allergy/AdvReac Type Severity Reaction Status Date / Time latex Allergy Swelling Verified 10/03/21 23:59 atorvastatin [From Lipitor] AdvReac JOINT PAIN Verified 10/03/21 23:59 Review of Systems ROS Statement: Those systems with pertinent positive or pertinent negative responses have been documented in the HPI. ROS Other: All systems not noted in ROS Statement are negative. EKG Findings - EKG Comments: EKG Findings:: EKG shows sinus rhythm 66 UT 132 QRS 98 QTc 457 Past Medical History Past Medical History: Coronary Artery Disease (CAD), Chest Pain / Angina, COPD, GERD/Reflux, Hyperlipidemia, Hypertension, Myocardial Infarction ([place]), Osteoarthritis (OA), Sleep Apnea/CPAP/BIPAP Additional Past Medical History / Comment(s): hiatal hernia, chronic back pain, L foot drop, numbness/tingling bilateral legs, HUSAM without device, CHF once per pt, pt denies ever having WA, states stents x7 Last Myocardial Infarction Date:: ?01/20/18 History of Any Multi-Drug Resistant Organisms: None Reported Past Surgical History: Back Surgery, Cholecystectomy, Coronary Bypass/CABG, Heart Catheterization With Stent, Orthopedic Surgery Additional Past Surgical History / Comment(s): Back surg x 2 with cage. L tennis elbow surg. HEART STENTS X7. Colonoscopy. Lasik eye surgery bilaterally. Emergency Cabg [facility] Past Anesthesia/Blood Transfusion Reactions: No Reported Reaction Additional Past Anesthesia/Blood Transfusion Reaction / Comment(s): Pt received blood during CABG without reaction. Date of Last Stent Placement:: May 2018 Past Psychological History: Anxiety, Depression, PTSD Smoking Status: Current every day smoker Past Alcohol Use History: None Reported Past Drug Use History: Cocaine - Past Family History Father Family Medical History: Coronary Artery Disease (CAD), Deep Vein Thrombosis (DVT), GERD/Reflux, Hyperlipidemia Additional Family Medical History / Comment(s): Father of a WA in his 80's Mother Family Medical History: Coronary Artery Disease (CAD) Additional Family Medical History / Comment(s): Mother of a WA at the age of 76yrs. Sister(s) Family Medical History: Cancer Additional Family Medical History / Comment(s): Lung cancer. General Exam Limitations: no limitations General appearance: alert, in no apparent distress Head exam: Present: atraumatic, normocephalic, normal inspection Eye exam: Present: normal appearance, PERRL, EOMI. Absent: scleral icterus, conjunctival injection, periorbital swelling ENT exam: Present: normal exam, mucous membranes moist Neck exam: Present: normal inspection. Absent: tenderness, meningismus, lymphadenopathy Respiratory exam: Present: normal lung sounds bilaterally. Absent: respiratory distress, wheezes, rales, rhonchi, stridor Cardiovascular Exam: Present: regular rate, normal rhythm, normal heart sounds. Absent: systolic murmur, diastolic murmur, rubs, gallop, clicks GI/Abdominal exam: Present: soft, normal bowel sounds. Absent: distended, tenderness, guarding, rebound, rigid Extremities exam: Present: normal inspection, full ROM, normal capillary refill. Absent: tenderness, pedal edema, joint swelling, calf tenderness Back exam: Present: normal inspection Neurological exam: Present: alert, oriented X3, CN II-XII intact Psychiatric exam: Present: normal affect, normal mood Skin exam: Present: warm, dry, intact, normal color. Absent: rash Course Vital Signs 10/03/21 23:55 Temperature 98.9 F Pulse Rate 72 Respiratory 22 Rate Blood Pressure 165/78 O2 Sat by Pulse 99 Oximetry Disposition Clinical Impression: Unstable angina pectoris, NSTEMI (non-ST elevated myocardial infarction), Acute coronary syndrome, Chest pain Disposition: ADMITTED IP TO THIS HOSP Condition: Fair Is patient prescribed a controlled substance at d/c from ED?: No Referrals: Alexx Gee MD [Primary Care Provider] - 1-2 days
[2021-10-04 00:31] LABS: Basophils % (A) 0 %; Eosinophils # (A) 0.1 k/uL (0-0.7); Eosinophils % (A) 0 %; HCT 45.3 % (39.0-53.0); HGB 15.4 gm/dL (13.0-17.5); Lymphocytes # (A) 2.9 k/uL (1.0-4.8); Lymphocytes % (A) 19 %; MCV 91.3 fL (80.0-100.0); Mean Platelet Volume 9.3; Monocytes # (A) 0.7 k/uL (0-1.0); Monocytes % (A) 4 %; Neutrophils # (A) 11.7 k/uL (1.3-7.7); Neutrophils % (A) 76 %; Platelet Count 183 k/uL (150-450); RBC 4.96 m/uL (4.30-5.90); RDW 13.2 % (11.5-15.5); WBC 15.5 k/uL (3.8-10.6)
[2021-10-04] MEDS ORDERED: NITROGLYCERIN SL TABS 0.4 MG TAB SUBLINGUAL PRN ×2 (00:32→11:00)
[2021-10-04] MEDS: HEPARIN SOD,PORK IN 0.45% NACL 25,000 UNIT in 0.45% NACL 1 250ML.BAG IV SCH ×2 (00:41→20:06)
[2021-10-04 00:43] LABS: Albumin 4.4 g/dL (3.5-5.0); Calcium 9.4 mg/dL (8.4-10.2); Magnesium 1.9 mg/dL (1.6-2.3); Potassium 4.5 mmol/L (3.5-5.1); Total Bilirubin 0.7 mg/dL (0.2-1.3); Total Protein 7.9 g/dL (6.3-8.2)
[2021-10-04 01:01] LABS: Partial Thromboplastin Time 29.9 sec (22.0-30.0); Prothrombin Time 10.9 sec (9.0-12.0)
--- NOTE | 2021-10-04 01:22 | XR ---
EXAMINATION TYPE: XR chest 2V DATE OF EXAM: 10/04/2021 COMPARISON: 05/25/2020 HISTORY: Chest pain TECHNIQUE: FINDINGS: Heart and mediastinum are normal. Lungs are clear of infiltrate. There is no heart failure. There are no hilar masses. There are sternal wires. There are chest leads. Costophrenic angles are c lear. IMPRESSION: No active cardiopulmonary disease. Normal heart. No change.
[2021-10-04] MEDS: MORPHINE SULFATE 4 MG/ML SYRINGE IV PRN ×2 (06:18→12:06)
[2021-10-04] MEDS ORDERED: METOPROLOL TARTRATE 25 MG TAB PO SCH (09:00)
[2021-10-04] MEDS ORDERED: ALPRAZolam 1 MG TAB PO PRN (11:00)
[2021-10-04] MEDS: HYDROcodone/APAP 10-325MG 1 EACH TAB PO PRN ×3 (12:05→23:26)
[2021-10-04] MEDS: RANOLAZINE 500 MG TAB.ER.12H PO SCH ×2 (12:07→20:06)
[2021-10-04] MEDS: amLODIPine 5 MG TAB PO SCH (12:07)
[2021-10-04] MEDS: SYMBICORT 160-4.5 MCG INHALER INHALATION SCH ×2 (13:49→19:35)
--- NOTE | 2021-10-04 14:22 | P.CRDCN ---
History of Present Illness Consult date: 10/04/21 History of present illness: HISTORY OF PRESENT ILLNESS: This is a 66-year-old male with a past medical history significant for coronary artery disease, hypertension, hyperlipidemia, peripheral vascular disease, and nicotine dependence. Patient follows in the office with Dr. Wiggins. We have been asked to see the patient in consultation for chest pain. Patient examined at the bedside. Patient states he was in a junk yard looking for a part to his car. He states he was leaning up against a cid of a car for about 30 minutes trying to remove a part from the vehicle. He states afterwards he began to have chest discomfort. He currently denies shortness of breath. She denies chest pain or pressure at rest. He does report having chest pain with palpation of his chest wall. EKG reveals sinus mechanism with no signs of acute ischemia Chest xray no active cardiac pulmonary disease Laboratory data: WBC 15.5. Hemoglobin 15.4. Platelet count 183. D-dimer 0.68. Sodium 134. Potassium 4.5. BUN 31. Creatinine 1.29. ProBNP 1960. Troponin 0.341. 0.346. 0.259. Most recent echocardiogram obtained in July 2020 revealed ejection fraction 55-60%, mild aortic regurgitation, mild tricuspid regurgitation Cardiac catheterization history: November 2018 revealing severe triple vessel coronary artery disease, intermediate to severe disease involving the SVG to LAD. The disease is in-stent restenosis with multiple layers of stent at that s egment. Occluded SVG to right coronary artery. The left circumflex and ramus intermedius are unprotected. Both have severe disease. REVIEW OF SYSTEMS: At the time of my exam: CONSTITUTIONAL: Denies fever or chills. HEENT: Denies blurred vision, vision changes, or eye pain. Denies hemoptysis CARDIOVASCULAR: Denies chest pain. Denies orthopnea. Denies PND. Denies palpitations RESPIRATORY: Denies shortness of breath. GASTROINTESTINAL: Denies abdominal pain. Denies nausea or vomiting. HEMATOLOGIC: Denies bleeding disorders. GENITOURINARY: Denies any blood in urine. SKIN: Denies pruitis. Denies rash. PHYSICAL EXAM: VITAL SIGNS: Reviewed. GENERAL: Well-developed in no acute distress. HEENT: Head is normocephalic. Pupils are equal, round. Sclerae anicteric. Mucous membranes of the mouth are moist. Neck supple. No JVD or thyromegaly LUNGS: Respirations even and unlabored. Lungs essentially clear to auscultation bilaterally. HEART: Regular rate and rhythm. S1 and S2 heard. ABDOMEN: Soft. Nondistended. Nontender. EXTREMITIES: Normal range of motion. No clubbing or cyanosis. Peripheral pulses intact. No lower extremity edema NEUROLOGIC: Awake and alert. Oriented x 3. ASSESSMENT: Chest pain, reproducible Coronary artery disease with previous CABG Acute kidney injury Abnormal troponins, may be secondary to CKD Hypertension Hyperlipidemia Peripheral vascular disease Nicotine dependence PLAN: Trend troponin levels Continue IV heparin Obtain 2-D echo to assess cardiac structure and function Add Imdur 30 mg daily Continue additional home cardiac medications Nothing by mouth at midnight Will reevaluate patient in the morning. Possible stress test tomorrow Further recommendations pending patient's course Nurse practitioner note has been reviewed by physician. Signing provider agrees with the documented findings, assessment, and plan of care. Past Medical History Past Medical History: Coronary Artery Disease (CAD), Chest Pain / Angina, COPD, GERD/Reflux, Hyperlipidemia, Hypertension, Myocardial Infarction ([place]), Osteoarthritis (OA), Sleep Apnea/CPAP/BIPAP Additional Past Medical History / Comment(s): hiatal hernia, chronic back pain, L foot drop, numbness/tingling bilateral legs, HUSAM without device, CHF once per pt, pt denies ever having PA, states stents x7 Last Myocardial Infarction Date:: ?01/20/18 History of Any Multi-Drug Resistant Organisms: None Reported Past Surgical History: Back Surgery, Cholecystectomy, Coronary Bypass/CABG, Heart Catheterization With Stent, Orthopedic Surgery Additional Past Surgical History / Comment(s): Back surg x 2 with cage. L tennis elbow surg. HEART STENTS X7. Colonoscopy. Lasik eye surgery bilaterally. Emergency Cabg [facility] Past Anesthesia/Blood Transfusion Reactions: No Reported Reaction Additional Past Anesthesia/Blood Transfusion Reaction / Comment(s): Pt received blood during CABG without reaction. Date of Last Stent Placement:: May 2018 Past Psychological History: Anxiety, Depression, PTSD Additional Psychological History / Comment(s): Pt takes care of sister living with him. He ambulates with a cane. He drives. Smoking Status: Current every day smoker Past Alcohol Use History: None Reported Additional Past Alcohol Use History / Comment(s): Pt states he started smoking in 1972 and used to smoke 3ppd down to maybe 6-8 cigarettes a day. Past Drug Use History: Cocaine Additional Drug Use History / Comment(s): states does not use cocaine anymore. - Past Family History Father Family Medical History: Coronary Artery Disease (CAD), Deep Vein Thrombosis (DVT), GERD/Reflux, Hyperlipidemia Additional Family Medical History / Comment(s): Father of a PA in his 80's Mother Family Medical History: Coronary Artery Disease (CAD) Additional Family Medical History / Comment(s): Mother of a PA at the age of 76yrs. Sister(s) Family Medical History: Cancer Additional Family Medical History / Comment(s): Lung cancer. Medications and Allergies Home Medications Medication Instructions Recorded Confirmed Type HYDROcodone/APAP 10-325MG [[place] 1 tab PO QID PRN 02/22/15 10/04/21 History 10-325] ALPRAZolam [Xanax] 2 mg PO BID PRN 02/23/15 10/04/21 History Esomeprazole Magnesium [NexIUM] 20 mg PO DAILY 09/29/17 10/04/21 History rOPINIRole HCL [Requip] 0.25 mg PO HS 09/29/17 10/04/21 History Cyclobenzaprine HCl 10 mg PO TID PRN 06/11/18 10/04/21 History Fenofibrate Nanocrystallized 48 mg PO HS 06/11/18 10/04/21 History [Fenofibrate] Fluticasone Nasal [place] [Flonase 1 spray EA NOSTRIL DAILY 06/11/18 10/04/21 History Nasal [place]] Clopidogrel [Plavix] 75 mg PO HS 12/18/18 10/04/21 History Aspirin 325 mg PO DAILY #100 tab 05/13/19 10/04/21 Rx Furosemide [Lasix] 40 mg PO DAILY 05/13/19 10/04/21 History Metoprolol Tartrate [Lopressor] 50 mg PO BID 05/13/19 10/04/21 History Nitroglycerin Sl Tabs [Nitrostat] 0.4 mg SUBLINGUAL Q5M PRN 05/13/19 10/04/21 History lisinopriL 40 mg PO DAILY 05/13/19 10/04/21 History Albuterol Sulfate [Ventolin HFA] 1 - 2 puff INHALATION RT-Q4H PRN 05/25/20 10/04/21 History DULoxetine HCL [Cymbalta] 60 mg PO DAILY 05/25/20 10/04/21 History Pravastatin Sodium 80 mg PO HS 05/25/20 10/04/21 History Budesonide-Formot 160-4.5 Mcg 2 puff INHALATION RT-BID 10/04/21 10/04/21 History [Symbicort 160-4.5 Mcg Inhaler] Diclofenac Sodium Gel [Voltaren 1 applic TOPICAL QID PRN 10/04/21 10/04/21 History Gel] Hydrocortisone Oint 1 applic TOPICAL QID PRN 10/04/21 10/04/21 History [Hydrocortisone 1% Oint] Lidocaine/Menthol 1 - 3 patch TOPICAL DAILY PRN 10/04/21 10/04/21 History [Lidocaine-Menthol 4%-1% Patch] Ranolazine [Ranexa] 500 mg PO BID 10/04/21 10/04/21 History amLODIPine [Norvasc] 5 mg PO DAILY 10/04/21 10/04/21 History predniSONE [Deltasone] 20 mg PO BID 10/04/21 10/04/21 History Allergies Allergy/AdvReac Type Severity Reaction Status Date / Time latex Allergy Swelling Verified 10/04/21 07:06 atorvastatin [From Lipitor] AdvReac JOINT PAIN Verified 10/04/21 07:06 Physical Exam Vitals: Vital Signs Temp Pulse Pulse Resp BP BP Pulse Ox 10/04/21 11:57 97.9 F 58 L 18 129/75 95 10/04/21 11:20 61 10/04/21 08:00 97.7 F 61 18 133/71 97 10/04/21 06:14 97.3 F L 51 L 18 117/52 97 10/04/21 04:31 54 L 18 114/59 96 10/04/21 02:25 57 L 18 112/67 96 10/04/21 00:54 56 L 18 132/69 96 10/04/21 00:10 62 10/03/21 23:55 98.9 F 72 22 165/78 99 Intake and Output 10/03/21 10/04/21 10/04/21 22:59 06:59 14:59 Other: Weight 113.398 kg 113.398 kg Results 10/04/21 00:19 10/04/21 00:19 Cardiac Enzymes 10/04/21 10/04/21 10/04/21 Range/Units 00:19 00:19 02:56 AST 37 (17-59) U/L Troponin I 0.341 H* 0.346 H* (0.000-0.034) ng/mL Coagulation 10/04/21 Range/Units 00:19 PT 10.9 (9.0-12.0) sec APTT 29.9 (22.0-30.0) sec CBC 10/04/21 Range/Units 00:19 WBC 15.5 H (3.8-10.6) k/uL RBC 4.96 (4.30-5.90) m/uL Hgb 15.4 (13.0-17.5) gm/dL Hct 45.3 (39.0-53.0) % Plt Count 183 (150-450) k/uL Comprehensive Metabolic Panel 10/04/21 Range/Units 00:19 Sodium 134 L (137-145) mmol/L Potassium 4.5 (3.5-5.1) mmol/L Chloride 105 (98-107) mmol/L Carbon Dioxide 18 L (22-30) mmol/L BUN 31 H (9-20) mg/dL Creatinine 1.29 H (0.66-1.25) mg/dL Glucose 141 H (74-99) mg/dL Calcium 9.4 (8.4-10.2) mg/dL AST 37 (17-59) U/L ALT 24 (4-49) U/L Alkaline Phosphatase 104 (38-126) U/L Total Protein 7.9 (6.3-8.2) g/dL Albumin 4.4 (3.5-5.0) g/dL Current Medications Generic Name Dose Route Start Last Admin Trade Name Freq PRN Reason Stop Dose Admin Hydrocodone Bitart/Acetaminophen 1 each 10/04/21 11:00 10/04/21 12:05 Hydrocodone/Apap 10-325mg 1 Each Tab PO 1 each QID PRN Administration Pain Alprazolam 2 mg 10/04/21 11:00 Alprazolam 1 Mg Tab PO BID PRN Anxiety Amlodipine Besylate 5 mg 10/04/21 11:00 10/04/21 12:07 Amlodipine 5 Mg Tab PO 5 mg DAILY ELIANA Administration Aspirin 325 mg 12/07/21 09:00 Aspirin 325 Mg Tab PO DAILY [facility] Aspirin 325 mg 10/05/21 09:00 Aspirin 325 Mg Tab PO DAILY [facility] Budesonide/Formoterol Fumarate 2 puff 10/04/21 11:00 Symbicort 160-4.5 Mcg Inhaler INHALATION RT-BID [facility] Clopidogrel Bisulfate 75 mg 10/04/21 21:00 Clopidogrel 75 Mg Tab PO HS [facility] Duloxetine HCl 60 mg 10/05/21 09:00 Duloxetine Hcl 60 Mg Capsule.Dr PO DAILY [facility] Fenofibrate 54 mg 10/04/21 21:00 Fenofibrate 54 Mg Tab PO HS [facility] Fluticasone Propionate 1 spray 10/05/21 09:00 Fluticasone 50mcg/[place] Nasal 16gm EA NOSTRIL DAILY [facility] Furosemide 40 mg 10/05/21 09:00 Furosemide 40 Mg Tab PO DAILY [facility] Sodium Chloride 1,000 mls @ 20 mls/hr 10/04/21 00:07 10/04/21 00:46 Saline 0.9% IV 10/05/21 00:06 20 mls/hr .Q24H STA Administration Heparin Sodium/Sodium Chloride 250 mls @ 10 mls/hr 10/04/21 00:45 10/04/21 00:41 25,000 unit/ Sodium Chloride IV 12 units/kg/hr .Q24H ELIANA 13.608 mls/hr Administration Protocol 8.8185 UNITS/KG/HR Lisinopril 40 mg 10/05/21 09:00 Lisinopril 20 Mg Tab PO DAILY [facility] Metoprolol Tartrate 25 mg 10/04/21 09:00 10/04/21 12:07 Metoprolol Tartrate 25 Mg Tab PO 25 mg BID [facility] Administration Metoprolol Tartrate 50 mg 10/04/21 21:00 Metoprolol Tartrate 50 Mg Tab PO BID [facility] Morphine Sulfate 4 mg 10/04/21 00:32 10/04/21 12:06 Morphine Sulfate 4 Mg/Ml Syringe IV 4 mg Q4HR PRN Administration Chest Pain Nitroglycerin 0.4 mg 10/04/21 00:32 Nitroglycerin Sl Tabs 0.4 Mg Tab SUBLINGUAL Q5M PRN Chest Pain Nitroglycerin 0.4 mg 10/04/21 11:00 Nitroglycerin Sl Tabs 0.4 Mg Tab SUBLINGUAL Q5M PRN Chest Pain Pantoprazole Sodium 40 mg 10/05/21 06:30 Pantoprazole 40 Mg Tablet PO DAILY@0630 [facility] Pravastatin Sodium 80 mg 10/04/21 21:00 Pravastatin Sodium 80 Mg Tab PO HS [facility] Prednisone 20 mg 10/04/21 21:00 Prednisone 20 Mg Tab PO BID [facility] Ranolazine 500 mg 10/04/21 11:00 10/04/21 12:07 Ranolazine 500 Mg Tab.Er.12h PO 500 mg BID [facility]IA[facility] Administration Ropinirole HCl 0.25 mg 10/04/21 21:00 Ropinirole Hcl 0.25 Mg Tab PO HS [facility] Intake and Output 10/03/21 10/04/21 10/04/21 22:59 06:59 14:59 Other: Weight 113.398 kg 113.398 kg Patient Weight 10/05/21 06:59 Weight 113.398 kg 10/04/21 00:19 10/04/21 00:19
[2021-10-04] MEDS: ISOSORBIDE MONONITRATE ER 30 MG TAB.ER.24H PO SCH (14:29)
--- NOTE | 2021-10-04 16:30 | ECHOF ---
Referral Reason:elevTrop MEASUREMENTS -------- HEIGHT: 175.3 cm WEIGHT: 113.4 kg BP: 117/52 IVSd: 1.6 cm (0.6 - 1.1) LVIDd: 4.7 cm (3.9 - 5.3) LVPWd: 1.5 cm (0.6 - 1.1) EDV(Teich): 101 ml IVSs: 2.3 cm LVIDs: 2.8 cm LVPWs: 1.9 cm %IVS Thck: 41 % ESV(Teich): 31 ml EF(Teich): 70 % %FS: 39 % SV(Teich): 70 ml RVIDd: 3.9 cm (< 3.3) LALs A4C: 5.5 cm LAAs A4C: 21.4 cm LAESV A-L A4C: 71 ml LAESV MOD A4C: 68 ml LALs A2C: 5.7 cm LAAs A2C: 20.1 cm LAESV A-L A2C: 60 ml LAESV MOD A2C: 58 ml LAESV(A-L): 66 ml LAESV Index (A-L): 29.25 ml/m Ao Diam: 3.0 cm (2.0 - 3.7) LA Diam: 4.9 cm (2.7 - 3.8) AV Cusp: 2.1 cm (1.5 - 2.6) EPSS: 0.6 cm LVOT Vmax: 0.80 m/s LVOT maxP.53 mmHg AV Vmax: 0.84 m/s AV maxP.83 mmHg AR Vmax: 3.16 m/s AR maxP.87 mmHg AR PHT: 417 ms AR Dec Time: 1439 ms AR Dec Bent: 2.2 m/s TR Vmax: 2.41 m/s TR maxP.20 mmHg RAP: 5.00 mmHg RVSP: 28.20 mmHg MV EF SLOPE: 71.76 mm/s (70 - 150) MV EXCURSION: 18.16 mm (> 18.000) FINDINGS -------- Sinus rhythm. This was a technically adequate study. The left ventricular size is normal. There is moderate concentric left ventricular hypertrophy. O verall left ventricular systolic function is low-normal with, an EF between 50 - 55 %. Septal wall motion is delayed and consistent with prior cardiac surgery. The right ventricle is mild to moderately enlarged. LA is midly dilated 29-33ml/m2. The right atrial size is normal. Interatrial and interventricular septum intact. There is mild aortic regurgitation. There is no evidence of aortic stenosis. Mild mitral regurgitation is present. Mild tricuspid regurgitation present. There is no evidence of pulmonary hypertension. The right v entricular systolic pressure, as measured by Doppler, is 28.20mmHg. There is no pulmonic regurgitation present. The aortic root size is normal. IVC Not well visulized. There is no pericardial effusion. CONCLUSIONS -------- 1. The left ventricular size is normal. 2. There is moderate concentric left ventricular hypertrophy. 3. Overall left ventricular systolic function is low-normal with, an EF between 50 - 55 %. 4. The right ventricle is mild to moderately enlarged. 5. LA is midly dilated 29-33ml/m2. 6. There is mild aortic regurgitation. 7. Mild mitral regurgitation is present. 8. Mild tricuspid regurgitation present. OBIEE ARCHITECT: Rafaela Vicente RDCS
--- NOTE | 2021-10-04 17:35 | HP ---
HISTORY AND PHYSICAL CHIEF COMPLAINT: Chest pain with elevated troponin. HISTORY OF PRESENT ILLNESS: This is another admission of many for this 66-year-old white male with a history of coronary artery disease. He continues to smoke. Apparently he developed some chest pain and went to a hospital in the [facility] area, where he had an elevated troponin and was told that he may have an IA. They wanted to transfer him by ambulance, but he drove himself down to the hospital. In the emergency room his EKG was normal, but troponin was elevated. He denies any diaphoresis or shortness of breath. REVIEW OF SYSTEMS: He has had no focal neurologic problems, cough, hemoptysis, chest pain, abdominal pain, nausea, vomiting, melena, hematochezia, diarrhea, dysuria, incontinence, hematuria, etc. Past medical history, family history, and personal and social histories reveal that he has numerous problems, including hypertension, COPD, CAD, sleep apnea, peripheral vascular occlusive disease, GERD and depression. Medications currently include Xanax, Flexeril, amlodipine, rosuvastatin, lisinopril, Symbicort, ranolazine, Lasix, metoprolol, Ropinirole, duloxetine, fenofibrate, vitamin D and clopidogrel. He is ALLERGIC TO LASIX. He has had numerous procedures in the past surgically. He continues to smoke. PHYSICAL EXAMINATION: Blood pressure 142/92 with a pulse of 89, respirations of 33 and he is afebrile. In general he appeared to be well developed, well nourished, in no acute distress. Skin color is normal. Skin is warm and dry. Lymph nodes are not enlarged. Head, ears, eyes, nose, mouth and throat are normal. Neck veins are not distended. Carotids are normal. Chest is clear. Cardiac exam demonstrates normal sinus rhythm and no murmurs or extra sounds. The abdomen is soft and non tender and slightly protuberant. Extremities are normal. Neurologically he is intact. IMPRESSION: 1. Chest pain with elevated troponin and normal EKG. 2. History of coronary artery disease. 3. History of hypertension. 4. Chronic obstructive pulmonary disease. PLAN: 1. Bedrest. 2. IV fluids. 3. Serial EKGs and enzymes. 4. Cardiology consult. MMODL / IJN: [id number] /
[2021-10-04] MEDS: predniSONE 20 MG TAB PO SCH (20:06)
[2021-10-04] MEDS: METOPROLOL TARTRATE 50 MG TAB PO SCH (20:21)
[2021-10-04] MEDS: NICOTINE 14MG/24HR PATCH TRANSDERM SCH (20:21)
[2021-10-04] MEDS ORDERED: CLOPIDOGREL 75 MG TAB PO SCH (21:00)
[2021-10-04] MEDS ORDERED: FENOFIBRATE 54 MG TAB PO SCH (21:00)
[2021-10-04] MEDS ORDERED: PRAVASTATIN SODIUM 80 MG TAB PO SCH (21:00)
[2021-10-05 00:22] VITALS: RESP 18
[2021-10-05 04:32] VITALS: PULSE 58
[2021-10-05] MEDS ORDERED: PANTOPRAZOLE 40 MG TABLET PO SCH (06:30)
[2021-10-05] MEDS ORDERED: DULoxetine HCL 60 MG CAPSULE.DR PO SCH (09:00)
[2021-10-05] MEDS ORDERED: lisinopriL 20 MG TAB PO SCH (09:00)
[2021-10-05] MEDS ORDERED: ASPIRIN 325 MG TAB PO SCH ×2 (09:00)
[2021-10-05] MEDS ORDERED: FUROSEMIDE 40 MG TAB PO SCH (09:00)
[2021-10-05] MEDS ORDERED: FLUTICASONE 50MCG/SPRAY NASAL 16GM EA NOSTRIL SCH (09:00)
[2021-10-05] MEDS ORDERED: ASPIRIN 81 MG PO SCH (09:00)
[2021-10-05] MEDS: SYMBICORT 160-4.5 MCG INHALER INHALATION SCH (09:30)
[2021-10-05] MEDS: HYDROcodone/APAP 10-325MG 1 EACH TAB PO PRN (09:33)
[2021-10-05] MEDS: METOPROLOL TARTRATE 50 MG TAB PO SCH (09:34)
[2021-10-05] MEDS: RANOLAZINE 500 MG TAB.ER.12H PO SCH (09:34)
[2021-10-05] MEDS: ISOSORBIDE MONONITRATE ER 30 MG TAB.ER.24H PO SCH (09:34)
[2021-10-05] MEDS: predniSONE 20 MG TAB PO SCH (09:34)
[2021-10-05] MEDS: amLODIPine 5 MG TAB PO SCH (09:34)
[2021-10-05] MEDS: NICOTINE 14MG/24HR PATCH TRANSDERM SCH (09:35)
[2021-10-05 10:39] VITALS: BP 135/78; TEMP 97.4
[2021-10-05 12:02] LABS: Chol/HDL Ratio 3.05 Ratio; LDL Cholesterol,Calculated 73.6 mg/dL (0.0-131.0)
--- NOTE | 2021-10-05 12:30 | P.PN ---
Subjective Progress Note Date: 10/05/21 HISTORY OF PRESENT ILLNESS: This is a 66-year-old male with a past medical history significant for coronary artery disease, hypertension, hyperlipidemia, peripheral vascular disease, and nicotine dependence. Patient follows in the office with Dr. Wiggins. We have been asked to see the patient in consultation for chest pain. Patient examined at the bedside. Patient states he was in a junk yard looking for a part to his car. He states he was leaning up against a cid of a car for about 30 minutes trying to remove a part from the vehicle. He states afterwards he began to have chest discomfort. He currently denies shortness of breath. She denies chest pain or pressure at rest. He does report having chest pain with palpation of his chest wall. EKG reveals sinus mechanism with no signs of acute ischemia Chest xray no active cardiac pulmonary disease Laboratory data: WBC 15.5. Hemoglobin 15.4. Platelet count 183. D-dimer 0.68. Sodium 134. Potassium 4.5. BUN 31. Creatinine 1.29. ProBNP 1960. Troponin 0.341. 0.346. 0.259. Most recent echocardiogram obtained in July 2020 revealed ejection fraction 55-60%, mild aortic regurgitation, mild tricuspid regurgitation Cardiac catheterization history: November 2018 revealing severe triple vessel coronary artery disease, intermediate to severe disease involving the SVG to LAD. The disease is in-stent restenosis with multiple layers of stent at that segment. Occluded SVG to right coronary artery. The left circumflex and ramus intermedius are unprotected. Both have severe disease. 10/05/2021 Patient examined this morning the bedside. Patient denies chest pain or pressure. He denies shortness of breath. He has been up ambulate in the hallway without difficulty. Vital signs remain stable. Echocardiogram completed revealing ejection fraction 50-55%, mild aortic regurgitation, mild mitral regurgitation, and mild tricuspid regurgitation. PHYSICAL EXAM: VITAL SIGNS: Reviewed. GENERAL: Well-developed in no acute distress. HEENT: Head is normocephalic. Pupils are equal, round. Sclerae anicteric. Mucous membranes of the mouth are moist. Neck supple. No JVD or thyromegaly LUNGS: Respirations even and unlabored. Lungs essentially clear to auscultation bilaterally. HEART: Regular rate and rhythm. S1 and S2 heard. ABDOMEN: Soft. Nondistended. Nontender. EXTREMITIES: Normal range of motion. No clubbing or cyanosis. Peripheral pulses intact. No lower extremity edema NEUROLOGIC: Awake and alert. Oriented x 3. ASSESSMENT: Chest pain, reproducible Coronary artery disease with previous CABG Acute kidney injury Abnormal troponins, may be secondary to CKD Hypertension Hyperlipidemia Peripheral vascular disease Nicotine dependence PLAN: Continue current cardiac medications Discontinue IV heparin Patient is anxious to be discharged home today. Patient may be discharged home today from a cardiac standpoint and follow up on an outpatient basis with Dr. Ni. Likely outpatient stress test to be performed. Nurse practitioner note has been reviewed by physician. Signing provider agrees with the documented findings, assessment, and plan of care. Objective - Vital Signs Vital signs: Vital Signs Temp 97.4 F L 10/05/21 08:00 Pulse 58 L 10/05/21 08:00 Resp 18 10/05/21 08:00 BP 135/78 10/05/21 08:00 Pulse Ox 97 10/05/21 08:00 Intake & Output 10/04/21 10/05/21 10/05/21 18:59 06:59 18:59 Intake Total 250.00 780 Balance 250.00 780 Weight 113.398 kg 114.4 kg Intake: Intake, IV Titration 250.00 Amount Heparin Sod,Pork in 0.45% 250.00 NaCl 25,000 unit In 0.45 % NaCl 1 250ml.bag @ 8. 8185 UNITS/KG/HR 10 mls/ hr IV .Q24H [facility] Rx#: [id number] Oral 780 Other: Voiding Method Toilet # Voids 1 - Labs CBC & Chem 7: 10/04/21 00:19 10/04/21 00:19 Labs: Abnormal Lab Results - Last 24 Hours (Table) 10/04/21 10/04/21 10/04/21 Range/Units 12:02 12:02 15:55 APTT 32.1 H (22.0-30.0) sec Troponin I 0.259 H* 0.263 H* (0.000-0.034) ng/mL 10/04/21 10/04/21 10/05/21 Range/Units 19:13 19:13 05:56 APTT 48.8 H 50.2 H (22.0-30.0) sec Troponin I 0.304 H* (0.000-0.034) ng/mL
--- NOTE | 2021-10-06 14:43 | DS ---
DISCHARGE SUMMARY CHIEF COMPLAINT: Chest pain. HISTORY OF PRESENT ILLNESS AND PHYSICAL EXAMINATION: Details of this man's history and physical can be found in the initial workup. LABORATORY STUDIES: While he was in the hospital, he had laboratory studies, details of which can be found in the laboratory section of his chart. COURSE IN THE HOSPITAL: After admission, he was placed on bedrest and started on intravenous fluids and had serial EKGs and enzymes. Troponins are up slightly, but he was seen by Cardiology and felt that he could be safely released and this likely was due to acute coronary syndrome. He will be followed up in the office in a day or 2. He will go home on his usual activity and medication. FINAL DIAGNOSES: 1. Chest pain. 2. History of coronary artery disease. 3. Chronic obstructive pulmonary disease. OPERATIONS: None. CONSULTATION: Cardiology. He is improved. MMDEYANIRA / CALLI: [id number] /
== END 2021-10-05 12:37 | disposition home or self-care (01) | DRG 303 ==
LOC: EC 23:48 → 3SCARD 10-04 00:32
PROVIDERS: ADMIT Family Medicine; ATTEND Family Medicine
DX: I25.110 Atherosclerotic heart disease of native coronary artery with unstable angina pectoris (principal); N17.9 Acute kidney failure, unspecified; R79.89 Other specified abnormal findings of blood chemistry; E78.5 Hyperlipidemia, unspecified; M21.372 Foot drop, left foot; I73.9 Peripheral vascular disease, unspecified; I10 Essential (primary) hypertension; F17.210 Nicotine dependence, cigarettes, uncomplicated; J44.9 Chronic obstructive pulmonary disease, unspecified; I08.2 Rheumatic disorders of both aortic and tricuspid valves; Z88.8 Allergy status to other drugs, medicaments and biological substances; F43.10 Post-traumatic stress disorder, unspecified; I25.2 Old myocardial infarction; Z79.51 Long term (current) use of inhaled steroids; Z79.82 Long term (current) use of aspirin; Z79.899 Other long term (current) drug therapy; Z95.1 Presence of aortocoronary bypass graft; Z95.5 Presence of coronary angioplasty implant and graft; Z91.040 Latex allergy status; Z87.19 Personal history of other diseases of the digestive system
CPT/HCPCS: 36415; 71046; 80053; 80061; 83690; 83735; 83880; 84484; 85025; 85379; 85610; 85730; 93005; 93306; 94640

== ENCOUNTER 2022-09-09 15:12 | Emergency (ER) | payer MEDICARE, OTHER ==
[2022-09-09 15:29] VITALS: TEMP 98.4
[2022-09-09] MEDS ORDERED: MORPHINE SULFATE 4 MG/ML SYRINGE IV STA (16:02)
[2022-09-09] MEDS ORDERED: SODIUM CHLORIDE 0.9% 1,000 ML IV STA (16:02)
[2022-09-09] MEDS ORDERED: MAG HYDROX/AL HYDROX/SIMETH 30 ML, HYOSCYAMINE ELIXIR 10 ML, LIDOCAINE VISCOUS 2% 10 ML PO STA ×3 (16:13)
--- NOTE | 2022-09-09 16:13 | ED ---
General Adult HPI - General Chief complaint: Chest Pain Stated complaint: Chest pain Time Seen by Provider: 09/09/22 15:31 Source: patient Mode of arrival: ambulatory Limitations: no limitations - History of Present Illness Initial comments: Dictation was produced using [employer] dictation software. please excuse any grammatical, word or spelling errors. Chief Complaint: 67-year-old male presents emergency department for epigastric abdominal pain and black stools History of Present Illness: 67-year-old male he has had black stools for the last several days. Today started having epigastric pain. Patient states that his pain is severe and rated as a 9 out of 10 on the severity scale. Patient states that he has associated nausea. No vomiting. He states his pain is worsened with oral intake. States that the pain occurs after several minutes as opposed to while eating. Denies any fever. No chills or night sweats. The ROS documented in this emergency department record has been reviewed and confirmed by me. Those systems with pertinent positive or negative responses have been documented in the HPI. All other systems are other negative and/or noncontributory. PHYSICAL EXAM: General Impression: Alert and oriented x3, not in acute distress HEENT: Normocephalic atraumatic, extra-ocular movements intact, pupils equal and reactive to light bilaterally, mucous membranes moist. Cardiovascular: Heart regular rate and rhythm Chest: Able to complete full sentences, no retractions, no tachypnea Abdomen: abdomen soft, palpatory tenderness to the epigastric area, not tympanitic to percussion, non-distended, no organomegaly Musculoskeletal: Pulses present and equal in all extremities, no peripheral edema Motor: no focal deficits noted Neurological: CN II-XII grossly intact, no focal motor or sensory deficits noted Skin: Intact with no visualized rashes Psych: Normal affect and mood ED course: 67-year-old male presents emergency department for epigastric pain and alleged black stools. Signs upon arrival shows heart rate of 105, rest of vital signs within acceptable limits. Laboratory evaluation obtained. Mild leukocytosis of 15.9 likely secondary to stress. Patient does not have any localizing symptoms. Metabolic panel is unremarkable. Lactic acid mildly elevated at 2.2. Rest of labs unremarkable. Hemoglobin stable. Lars blood is positive. Computed tomography scan abdomen and pelvis shows no acute processes. Patient observed in the emergency department for approximately 5 hours. Reevaluated at bedside at 8:15 PM found to be in stable medical condition. This point there is no obvious cause for his abdominal pain. Hemoglobin appears to be stable and he's been having GI bleed for several weeks that is being worked up by his primary care doctor. Disposition options were discussed. Patient's real for discharge with strict return precautions. - Related Data Home Medications Medication Instructions Recorded Confirmed HYDROcodone/APAP 10-325MG [[place] 1 tab PO QID PRN 02/22/15 09/09/22 10-325] ALPRAZolam [Xanax] 2 mg PO TID PRN 02/23/15 09/09/22 rOPINIRole HCL [Requip] 0.25 mg PO HS 09/29/17 09/09/22 Fenofibrate Nanocrystallized 48 mg PO HS 06/11/18 09/09/22 [Fenofibrate] Fluticasone Nasal Roundup [Flonase 1 spray EA NOSTRIL DAILY 06/11/18 09/09/22 Nasal Roundup] Clopidogrel [Plavix] 75 mg PO HS 12/18/18 09/09/22 Metoprolol Tartrate [Lopressor] 50 mg PO BID 05/13/19 09/09/22 Nitroglycerin Sl Tabs [Nitrostat] 0.4 mg SUBLINGUAL Q5M PRN 05/13/19 09/09/22 Albuterol Sulfate [Ventolin HFA] 1 - 2 puff INHALATION RT-Q4H PRN 05/25/20 09/09/22 DULoxetine HCL [Cymbalta] 60 mg PO DAILY 05/25/20 09/09/22 Budesonide-Formot 160-4.5 Mcg 2 puff INHALATION RT-BID 10/04/21 09/09/22 [Symbicort 160-4.5 Mcg Inhaler] amLODIPine [Norvasc] 5 mg PO HS 10/04/21 09/09/22 Ergocalciferol [Vitamin D2 (1250 1,250 mcg PO Q14D 09/09/22 09/09/22 Mcg = 13875 Iu)] Evolocumab [Repatha Sureclick] 140 mg SQ Q14D 09/09/22 09/09/22 Previous Rx's Medication Instructions Recorded Aspirin 325 mg PO DAILY #100 tab 05/13/19 Isosorbide Mononitrate ER [Imdur] 30 mg PO DAILY #90 tab 10/05/21 Allergies Allergy/AdvReac Type Severity Reaction Status Date / Time latex Allergy Swelling Verified 09/09/22 17:29 atorvastatin [From Lipitor] AdvReac JOINT PAIN Verified 09/09/22 17:29 Review of Systems ROS Statement: Those systems with pertinent positive or pertinent negative responses have been documented in the HPI. ROS Other: All systems not noted in ROS Statement are negative. Past Medical History Past Medical History: Coronary Artery Disease (CAD), Chest Pain / Angina, COPD, GERD/Reflux, Hyperlipidemia, Hypertension, Myocardial Infarction (MT), Osteoarthritis (OA), Sleep Apnea/CPAP/BIPAP Additional Past Medical History / Comment(s): hiatal hernia, chronic back pain, L foot drop, numbness/tingling bilateral legs, HUSAM without device, CHF once per pt, pt denies ever having MT, states stents x7 Last Myocardial Infarction Date:: ?01/20/18 History of Any Multi-Drug Resistant Organisms: None Reported Past Surgical History: Back Surgery, Cholecystectomy, Coronary Bypass/CABG, Heart Catheterization With Stent, Orthopedic Surgery Additional Past Surgical History / Comment(s): Back surg x 2 with cage. L tennis elbow surg. HEART STENTS X7. Colonoscopy. Lasik eye surgery bilaterally. Emergency Cabg [facility] Past Anesthesia/Blood Transfusion Reactions: No Reported Reaction Additional Past Anesthesia/Blood Transfusion Reaction / Comment(s): Pt received blood during CABG without reaction. Date of Last Stent Placement:: May 2018 Past Psychological History: Anxiety, Depression, PTSD Smoking Status: Vaper Past Alcohol Use History: None Reported Past Drug Use History: Cocaine - Past Family History Father Family Medical History: Coronary Artery Disease (CAD), Deep Vein Thrombosis (DVT), GERD/Reflux, Hyperlipidemia Additional Family Medical History / Comment(s): Father of a MT in his 80's Mother Family Medical History: Coronary Artery Disease (CAD) Additional Family Medical History / Comment(s): Mother of a MT at the age of 76yrs. Sister(s) Family Medical History: Cancer Additional Family Medical History / Comment(s): Lung cancer. General Exam Limitations: no limitations Course Vital Signs 09/09/22 09/09/22 09/09/22 15:26 16:00 16:30 Temperature 98.4 F Pulse Rate 105 H 93 84 Respiratory 20 20 20 Rate Blood Pressure 147/75 141/68 162/96 O2 Sat by Pulse 99 97 97 Oximetry 09/09/22 09/09/22 09/09/22 17:00 17:30 18:00 Temperature Pulse Rate 86 77 80 Respiratory 20 19 20 Rate Blood Pressure 139/74 137/64 139/72 O2 Sat by Pulse 96 97 97 Oximetry 09/09/22 09/09/22 09/09/22 18:30 19:00 19:30 Temperature Pulse Rate 86 86 82 Respiratory 18 18 21 Rate Blood Pressure 153/68 139/72 152/86 O2 Sat by Pulse 98 98 98 Oximetry Medical Decision Making - Lab Data Result diagrams: 09/09/22 16:20 09/09/22 16:20 Lab Results 09/09/22 09/09/22 09/09/22 Range/Units 16:20 16:20 16:20 WBC 15.9 H (3.8-10.6) k/uL RBC 4.94 (4.30-5.90) m/uL Hgb 15.5 (13.0-17.5) gm/dL Hct 46.4 (39.0-53.0) % MCV 94.0 (80.0-100.0) fL MCH 31.5 (25.0-35.0) pg MCHC 33.5 (31.0-37.0) g/dL RDW 13.0 (11.5-15.5) % Plt Count 184 (150-450) k/uL MPV 10.6 Neutrophils % 90 % Lymphocytes % 8 % Monocytes % 2 % Eosinophils % 0 % Basophils % 0 % Neutrophils # 14.4 H (1.3-7.7) k/uL Lymphocytes # 1.3 (1.0-4.8) k/uL Monocytes # 0.3 (0-1.0) k/uL Eosinophils # 0.0 (0-0.7) k/uL Basophils # 0.0 (0-0.2) k/uL Sodium 137 (137-145) mmol/L Potassium 4.5 (3.5-5.1) mmol/L Chloride 106 (98-107) mmol/L Carbon Dioxide 21 L (22-30) mmol/L Anion Gap 10 mmol/L BUN 27 H (9-20) mg/dL Creatinine 0.98 (0.66-1.25) mg/dL Est GFR (CKD-EPI)AfAm >90 (>60 ml/min/1.73 sqM) Est GFR (CKD-EPI)NonAf 81 (>60 ml/min/1.73 sqM) Glucose 138 H (74-99) mg/dL Lactic Ac Sepsis Rflx Plasma Lactic Acid Tomy (0.7-2.0) mmol/L Calcium 9.4 (8.4-10.2) mg/dL Magnesium 1.9 (1.6-2.3) mg/dL Total Bilirubin 0.6 (0.2-1.3) mg/dL AST 37 (17-59) U/L ALT 26 (4-49) U/L Alkaline Phosphatase 87 (38-126) U/L Total Protein 7.2 (6.3-8.2) g/dL Albumin 4.4 (3.5-5.0) g/dL Lipase 28 (23-300) U/L Stool Occult Blood Positive (Negative) 09/09/22 09/09/22 Range/Units 16:20 17:22 WBC (3.8-10.6) k/uL RBC (4.30-5.90) m/uL Hgb (13.0-17.5) gm/dL Hct (39.0-53.0) % MCV (80.0-100.0) fL MCH (25.0-35.0) pg MCHC (31.0-37.0) g/dL RDW (11.5-15.5) % Plt Count (150-450) k/uL MPV Neutrophils % % Lymphocytes % % Monocytes % % Eosinophils % % Basophils % % Neutrophils # (1.3-7.7) k/uL Lymphocytes # (1.0-4.8) k/uL Monocytes # (0-1.0) k/uL Eosinophils # (0-0.7) k/uL Basophils # (0-0.2) k/uL Sodium (137-145) mmol/L Potassium (3.5-5.1) mmol/L Chloride (98-107) mmol/L Carbon Dioxide (22-30) mmol/L Anion Gap mmol/L BUN (9-20) mg/dL Creatinine (0.66-1.25) mg/dL Est GFR (CKD-EPI)AfAm (>60 ml/min/1.73 sqM) Est GFR (CKD-EPI)NonAf (>60 ml/min/1.73 sqM) Glucose (74-99) mg/dL Lactic Ac Sepsis Rflx Y Plasma Lactic Acid Tomy 2.2 H* (0.7-2.0) mmol/L Calcium (8.4-10.2) mg/dL Magnesium (1.6-2.3) mg/dL Total Bilirubin (0.2-1.3) mg/dL AST (17-59) U/L ALT (4-49) U/L Alkaline Phosphatase (38-126) U/L Total Protein (6.3-8.2) g/dL Albumin (3.5-5.0) g/dL Lipase (23-300) U/L Stool Occult Blood (Negative) Disposition Clinical Impression: Abdominal pain Disposition: HOME SELF-CARE Condition: Fair Instructions (If sedation given, give patient instructions): Abdominal Pain (ED), Gastrointestinal Bleeding (ED) Is patient prescribed a controlled substance at d/c from ED?: No Referrals: Alexx Gee MD [Primary Care Provider] - 1-2 days Time of Disposition: 20:12
[2022-09-09 16:29] LABS: Basophils % (A) 0 %; Eosinophils % (A) 0 %; HCT 46.4 % (39.0-53.0); HGB 15.5 gm/dL (13.0-17.5); Lymphocytes # (A) 1.3 k/uL (1.0-4.8); Lymphocytes % (A) 8 %; MCH 31.5 pg (25.0-35.0); MCHC 33.5 g/dL (31.0-37.0); Mean Platelet Volume 10.6; Monocytes # (A) 0.3 k/uL (0-1.0); Monocytes % (A) 2 %; Neutrophils # (A) 14.4 k/uL (1.3-7.7); Neutrophils % (A) 90 %; Platelet Count 184 k/uL (150-450); RBC 4.94 m/uL (4.30-5.90); WBC 15.9 k/uL (3.8-10.6)
[2022-09-09 16:43] LABS: ALT 26 U/L (4-49); AST 37 U/L (17-59); African American GFR (CKD) >90 (>60 ml/min/1.73 sqM); Albumin 4.4 g/dL (3.5-5.0); Alkaline Phosphatase 87 U/L (38-126); Anion Gap 10 mmol/L; Blood Urea Nitrogen 27 mg/dL (9-20); Calcium 9.4 mg/dL (8.4-10.2); Carbon Dioxide 21 mmol/L (22-30); Chloride 106 mmol/L (98-107); Glucose 138 mg/dL (74-99); Lipase 28 U/L (23-300); Magnesium 1.9 mg/dL (1.6-2.3); Non-African American GFR(CKD) 81 (>60 ml/min/1.73 sqM); Sodium 137 mmol/L (137-145); Total Bilirubin 0.6 mg/dL (0.2-1.3); Total Protein 7.2 g/dL (6.3-8.2)
[2022-09-09 17:04] LABS: Potassium 4.5 mmol/L (3.5-5.1)
[2022-09-09] MEDS ORDERED: PANTOPRAZOLE 40 MG/10 ML VIAL IVP STA (18:12)
--- NOTE | 2022-09-09 19:00 | CT ---
EXAMINATION TYPE: CT abdomen pelvis w con DATE OF EXAM: 09/09/2022 COMPARISON: 05/14/2015 HISTORY: Severe epigastric pain CT DLP: 1457.9 mGycm Automated exposure control for dose reduction was used. CONTRAST: Performed with IV Contrast, patient injected with 100 mL of Isovue 300. Images obtained from the diaphragm to the floor the pelvis with the IV contrast. The lung bases are clear. No pleural effusion. Heart size is normal. No pericardial effusion. There are clips from cholecystectomy. Liver spleen and stomach pancreas appear intact. The bile ducts are not dilated. There is no adrenal mass. Kidneys show satisfactory contrast opacification. No hydronephrosis. Ureter s are not dilated. No retroperitoneal adenopathy. The bladder distends smoothly. No pelvic mass. No f ree fluid in the pelvis. No inguinal hernia. Appendix is posterior and appears normal.. There is no mesenteric edema. No ascites. No free air. No bowel obstruction. There is posterior fusion surgery at L5-S1 with metal artifact. The lumbar vertebrae have normal alig nment. There is some narrowing of the L3-4 and L5-S1 disc spaces. No compression fracture. The bony p garo is intact. The hip joints are intact. Delayed images show normal renal excretion. IMPRESSION: Negative CT scan of the abdomen pelvis. No adverse change.
[2022-09-09 19:55] VITALS: BP 152/86; PULSE 82; RESP 21
== END 2022-09-09 20:23 | disposition home or self-care (01) ==
LOC: EC 15:12
DX: K21.00 Gastro-esophageal reflux disease with esophagitis, without bleeding (principal); I25.10 Atherosclerotic heart disease of native coronary artery without angina pectoris; J44.9 Chronic obstructive pulmonary disease, unspecified; I10 Essential (primary) hypertension; I25.2 Old myocardial infarction; M19.90 Unspecified osteoarthritis, unspecified site; Z91.040 Latex allergy status; Z88.8 Allergy status to other drugs, medicaments and biological substances; Z79.82 Long term (current) use of aspirin; Z79.899 Other long term (current) drug therapy
CPT/HCPCS: 36415; 80053; 83605; 83690; 83735; 85025; 82272; 74177; 99285; 96374; 96361; J2270; Q9967

== ENCOUNTER 2022-11-11 11:01 | Inpatient (IN) | payer MEDICARE, OTHER ==
[~2022-11-11 11:01] MED LIST changes: -ALPRAZolam 0.25 MG TAB PO PRN; -ALPRAZolam 0.5 MG TAB PO PRN; -ASPIRIN 325 MG TAB PO ONE; -HYDROcodone/APAP 10-325MG 1 EACH TAB ONE; -HYDROcodone/APAP 10-325MG 1 EACH TAB PO ONE; -HYDROcodone/APAP 10-325MG 1 EACH TAB PO PRN; -IOPAMIDOL-370 150ML BTL INJ ONE; -LIDOCAINE 1% INJ 10MG/ML (20 ML MDV) SQ ONE; +MIDAZOLAM 2 MG/2 ML VIAL IV ONE; -MIDAZOLAM 2 MG/2 ML VIAL IVP ONE; -NITROGLYCERIN SL TABS 0.4 MG TAB SUBLINGUAL PRN; -RX INFO: IV CONTRAST WAS GIVEN 1 EACH MISC MISCELLANE PRN; -SODIUM CHLORIDE 0.9% 1,000 ML IV SCH; -SODIUM CHLORIDE 0.9% 1,000 ML in EMPTY BAG 1 BAG IV ONE; -fentaNYL (PF) 50 MCG/ML 2 ML AMP ONE
[2022-11-11] MEDS ORDERED: HYDROmorphone 1 MG/ML 1 ML SYRINGE IVP STA (11:11)
--- NOTE | 2022-11-11 11:14 | ED ---
Chest Pain HPI - General Stated Complaint: stemi Time Seen by Provider: 11/11/22 11:05 - History of Present Illness Initial Comments: 67-year-old male with past medical history of coronary artery disease status post CABG who presents to the emergency department from [facility]. Patient began having chest pain, nausea, vomiting this morning and took an ambulance into their facility. EKG was performed which demonstrated positive sgarbossa criteria with greater than [address] elevation in the anterior leads. He was given aspirin, tnkase and started on a heparin and nitro drip. Transferred to our facility as he is a patient of Dr. house. Reports that he thinks he does have 3 stents that were placed after his bypass surgery which was greater than 20 years ago. Patient arrives to us still complaining of crushing chest pressure. He states that the radiation is to bilateral arms into the back. Pain is unrelieved with nitro. He denies any abdominal pain. No numbness, tingle or weakness in his extremity. No alleviating, Perceptin or modifying factors MD Complaint: chest pain - Related Data Home Medications Medication Instructions Recorded Confirmed HYDROcodone/APAP 10-325MG [[place] 1 tab PO QID PRN 02/22/15 11/11/22 10-325] ALPRAZolam [Xanax] 2 mg PO TID PRN 02/23/15 11/11/22 rOPINIRole HCL [Requip] 0.25 mg PO HS 09/29/17 11/11/22 Fenofibrate Nanocrystallized 48 mg PO HS 06/11/18 11/11/22 [Fenofibrate] Fluticasone Nasal [place] [Flonase 1 spray EA NOSTRIL DAILY 06/11/18 11/11/22 Nasal [place]] Clopidogrel [Plavix] 75 mg PO HS 12/18/18 11/11/22 Metoprolol Tartrate [Lopressor] 50 mg PO BID 05/13/19 11/11/22 DULoxetine HCL [Cymbalta] 60 mg PO DAILY 05/25/20 11/11/22 Budesonide-Formot 160-4.5 Mcg 2 puff INHALATION RT-BID 10/04/21 11/11/22 [Symbicort 160-4.5 Mcg Inhaler] amLODIPine [Norvasc] 5 mg PO HS 10/04/21 11/11/22 Ergocalciferol [Vitamin D2 (1250 1,250 mcg PO Q14D 09/09/22 11/11/22 Mcg = 17643 Iu)] Evolocumab [Repatha Sureclick] 140 mg SQ Q14D 09/09/22 11/11/22 Diclofenac Sodium Gel [Voltaren 1 applic TOPICAL DAILY PRN 11/11/22 11/11/22 Gel] traZODone HCL [Desyrel] 50 - 100 mg PO HS 11/11/22 11/11/22 Previous Rx's Medication Instructions Recorded Aspirin 325 mg PO DAILY #100 tab 05/13/19 Isosorbide Mononitrate ER [Imdur] 30 mg PO DAILY #90 tab 10/05/21 Allergies Allergy/AdvReac Type Severity Reaction Status Date / Time latex Allergy Swelling Verified 11/11/22 14:50 atorvastatin [From Lipitor] AdvReac JOINT PAIN Verified 11/11/22 14:50 Review of Systems ROS Statement: Those systems with pertinent positive or pertinent negative responses have been documented in the HPI. ROS Other: All systems not noted in ROS Statement are negative. EKG Findings - EKG Comments: EKG Findings:: EKG done at 11 AM demonstrates heart rate of 69. VT interval 173. QRS 105. QTC of 439. There is a left bundle-branch block. ST elevation V2 through V4. Morphology appears improved from a previous EKG done at [facility] which did meet sgarbossa criteria Past Medical History Past Medical History: Coronary Artery Disease (CAD), Chest Pain / Angina, COPD, GERD/Reflux, Hyperlipidemia, Hypertension, Myocardial Infarction ([place]), Osteoarthritis (OA), Sleep Apnea/CPAP/BIPAP Additional Past Medical History / Comment(s): hiatal hernia, chronic back pain, L foot drop, numbness/tingling bilateral legs, HUSAM without device, CHF once per pt, pt denies ever having [place], states stents x7 Last Myocardial Infarction Date:: ?01/20/18 History of Any Multi-Drug Resistant Organisms: None Reported Past Surgical History: Back Surgery, Cholecystectomy, Coronary Bypass/CABG, Hear t Catheterization With Stent, Orthopedic Surgery Additional Past Surgical History / Comment(s): Back surg x 2 with cage. L tennis elbow surg. HEART STENTS X7. Colonoscopy. Lasik eye surgery bilaterally. Emergency Cabg [facility] Past Anesthesia/Blood Transfusion Reactions: No Reported Reaction Additional Past Anesthesia/Blood Transfusion Reaction / Comment(s): Pt received blood during CABG without reaction. Date of Last Stent Placement:: May 2018 Past Psychological History: Anxiety, Depression, PTSD Smoking Status: Vaper Past Alcohol Use History: None Reported Past Drug Use History: Cocaine - Past Family History Father Family Medical History: Coronary Artery Disease (CAD), Deep Vein Thrombosis (DVT), GERD/Reflux, Hyperlipidemia Additional Family Medical History / Comment(s): Father of a [place] in his 80's Mother Family Medical History: Coronary Artery Disease (CAD) Additional Family Medical History / Comment(s): Mother of a [place] at the age of 76yrs. Sister(s) Family Medical History: Cancer Additional Family Medical History / Comment(s): Lung cancer. General Exam General appearance: alert, in no apparent distress Head exam: Present: atraumatic, normocephalic, normal inspection Eye exam: Present: normal appearance, PERRL, EOMI. Absent: scleral icterus, conjunctival injection, periorbital swelling ENT exam: Present: normal exam, mucous membranes moist Neck exam: Present: normal inspection. Absent: tenderness, meningismus, lympha denopathy Respiratory exam: Present: normal lung sounds bilaterally. Absent: respiratory distress, wheezes, rales, rhonchi, stridor Cardiovascular Exam: Present: regular rate, normal rhythm, normal heart sounds. Absent: systolic murmur, diastolic murmur, rubs, gallop, clicks GI/Abdominal exam: Present: soft, normal bowel sounds. Absent: distended, tenderness, guarding, rebound, rigid Extremities exam: Present: normal inspection, full ROM, normal capillary refill. Absent: tenderness, pedal edema, joint swelling, calf tenderness Back exam: Present: normal inspection Neurological exam: Present: alert, oriented X3, CN II-XII intact Psychiatric exam: Present: normal affect, normal mood Skin exam: Present: warm, intact, normal color, diaphoretic. Absent: rash Course Vital Signs 11/11/22 11:03 Pulse Rate 76 Respiratory 18 Rate Blood Pressure 114/68 O2 Sat by Pulse 96 Oximetry Chest Pain MDM - MDM Was pt. sent in by a medical professional or institution? [facility]lette Did you speak to anyone other than the patient for history? no Did you review nursing and triage notes? yes and I agree Were old charts reviewed? bolt records Differential Diagnosis? STEMI, NSTEMI, dissection, PE, pleural effusion, heart failure, heart block EKG interpreted by me (3pts min.)? yes X-rays interpreted by me (1pt min.)? no CT interpreted by me (1pt min.)? no U/S interpreted by me (1pt. min.)? no What testing was considered but not performed? (CT, X-rays, U/S, labs)? Why? none What meds were considered but not given? Why? none Did you discuss the management of the patient with other professionals? dr encarnacion, Dr. Flood x 3 Did you reconcile home meds? yes Was smoking cessation discussed for >3mins.? no Was critical care preformed (if so, how long)? yes, 35 minutes Were there social determinants of health that impacted care today? How? (Homelessness, low income, unemployed, alcoholism, drug addiction, transportati on, low edu. Level, literacy, decrease access to med. care, group home, rehab)? no Was there de-escalation of care discussed even if they declined? (Discuss DNR or withdrawal of care, Hospice)? no What co-morbidities impacted this encounter? (DM, HTN, Smoking, COPD, CAD, Cancer, CVA, Hep., AIDS, mental health diagnosis, sleep apnea, morbid obesity)? htn, hld, CAD, GERD Was patient admitted / discharged? Upon arrival patient was probably placed in a trauma 2. I reviewed the transfer packet for [facility]. Patient continues to have 8 out of 10 crushing chest pain. EKG is improved however still does have some ST segment elevation. I discontinue the nitro drip. Continue heparin drip. 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 Spoke with Dr. Flood. Patient is taken to [facility] in stable condition with a guarded prognosis Undiagnosed new problem with uncertain prognosis? yes Drug Therapy requiring intensive monitoring for toxicity (Heparin, Nitro, Insulin, Cardizem)? herparin, nitro Were any procedures done? no Diagnosis/symptom? STEMI Acute, or Chronic, or Acute on Chronic? acute Uncomplicated (without systemic symptoms) or Complicated (systemic symptoms)? complicated Side effects of treatment? cardiac arrest Exacerbation, Progression, or Severe Exacerbation] no Poses a threat to life or bodily function? yes Critical Care Time Critical Care Time: Yes Critical Care Time: 35 minutes Disposition Clinical Impression: Chest pain, STEMI (ST elevation myocardial infarction) Disposition: ADMITTED IP TO THIS [facility] Condition: Serious Is patient prescribed a controlled substance at d/c from ED?: No Time of Disposition: 11:20 Decision to Admit Reason: Admit from EC Decision Date: 11/11/22 Decision Time: 11:19
[2022-11-11] MEDS ORDERED: NALOXONE 0.4 MG/ML 1 ML VIAL IV PRN (11:22)
[2022-11-11] MEDS ORDERED: LIDOCAINE 1% INJ 10MG/ML (30 ML VIAL-PF) SQ ONE (11:36)
[2022-11-11 11:37] LABS: Basophils # (A) 0.1 k/uL (0-0.2); Basophils % (A) 0 %; Eosinophils # (A) 0.1 k/uL (0-0.7); Eosinophils % (A) 1 %; Lymphocytes # (A) 2.3 k/uL (1.0-4.8); Lymphocytes % (A) 15 %; MCH 30.1 pg (25.0-35.0); MCV 93.8 fL (80.0-100.0); Mean Platelet Volume 10.7; Monocytes # (A) 0.5 k/uL (0-1.0); Monocytes % (A) 3 %; Neutrophils # (A) 11.7 k/uL (1.3-7.7); Neutrophils % (A) 79 %; Platelet Count 185 k/uL (150-450); RDW 13.3 % (11.5-15.5); WBC 14.8 k/uL (3.8-10.6)
--- NOTE | 2022-11-11 11:38 | P.CRDCN ---
History of Present Illness Consult date: 11/11/22 History of present illness: HISTORY OF PRESENT ILLNESS: This is a 67-year-old male with a past medical history significant for coronary artery disease with previous CABG and stenting, hypertension, and hyperlipidemia. Patient follows in the office with Dr. Wiggins. We have been asked to see the patient in consultation for STEMI. Patient examined at the bedside. Patient presented to [facility] with a chief complaint of chest pain. Patient was found to have ST elevation in leads V2-V4 and also ST elevation in inferolateral leads. Patient was given aspirin and thrombolytics. He was started on IV heparin and IV nitro and transferred to [facility] for further evaluation. Upon evaluation in the emergency room, the patient is continuing to have significant chest pain in the middle of his chest with radiation down both of his arms and into his back. He reports feeling short of breath as well. * Repeat EKG performed reveals continued ST elevation in V2-V4 with resolution of ST elevation in inferolateral leads. * Chest xray: not available at the time of this dictation * Laboratory data: not available at the time of this dictation * Current home cardiac medications include: not available at the time of this dictation * Most recent echocardiogram obtained in November 2019 revealed ejection fraction 55%, mild tricuspid regurgitation, mild atrial regurgitation, moderate aortic regurgitation * Cardiac catheterization history: November 2018 revealing severe triple vessel coronary artery disease, intermediate to severe disease involving the SVG to LAD. The disease is in-stent restenosis with multiple layers of stent that segment. Occluded SVG to right coronary artery. The left circumflex and ramus intermedius are unprotected. Both have severe disease. Maximal medical treatment was recommended. Possibility of redo CABG if patient continues to have discomfort versus PCI. REVIEW OF SYSTEMS: At the time of my exam: CONSTITUTIONAL: Denies fever or chills. HEENT: Denies blurred vision, vision changes, or eye pain. Denies hemoptysis CARDIOVASCULAR: + chest pain. Denies orthopnea. Denies PND. Denies palpitations RESPIRATORY: + shortness of breath. GASTROINTESTINAL: Denies abdominal pain. Denies nausea or vomiting. HEMATOLOGIC: Denies bleeding disorders. GENITOURINARY: Denies any blood in urine. SKIN: Denies pruitis. Denies rash. PHYSICAL EXAM: VITAL SIGNS: Reviewed. GENERAL: Well-developed in no acute distress. HEENT: Head is normocephalic. Pupils are equal, round. Sclerae anicteric. Mucous membranes of the mouth are moist. Neck supple. No JVD or thyromegaly LUNGS: Respirations even and unlabored. Lungs essentially clear to auscultation bilaterally. HEART: Regular rate and rhythm. S1 and S2 heard. ABDOMEN: Soft. Nondistended. Nontender. EXTREMITIES: Normal range of motion. No clubbing or cyanosis. Peripheral pulses intact. No lower extremity edema NEUROLOGIC: Awake and alert. Oriented x 3. ASSESSMENT: Chest pain STEMI Coronary artery disease with previous CABG and PCI Hypertension Hyperlipidemia, ALLERGIC to statins, on Repatha PLAN: Patient evaluated in the ER. Recommend urgent cardiac cath due to persistent chest pain. Patient agreeable. 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 Signing provider agrees with the documented findings, assessment, and plan of care. Past Medical History Past Medical History: Coronary Artery Disease (CAD), Chest Pain / Angina, COPD, GERD/Reflux, Hyperlipidemia, Hypertension, Myocardial Infarction ([place]), Osteoarthritis (OA), Sleep Apnea/CPAP/BIPAP Additional Past Medical History / Comment(s): hiatal hernia, chronic back pain, L foot drop, numbness/tingling bilateral legs, HUSAM without device, CHF once per pt, pt denies ever having [place], states stents x7 Last Myocardial Infarction Date:: ?01/20/18 History of Any Multi-Drug Resistant Organisms: None Reported Past Surgical History: Back Surgery, Cholecystectomy, Coronary Bypass/CABG, Heart Catheterization With Stent, Orthopedic Surgery Additional Past Surgical History / Comment(s): Back surg x 2 with cage. L tennis elbow surg. HEART STENTS X7. Colonoscopy. Lasik eye surgery bilaterally. Emergency Cabg [facility] Past Anesthesia/Blood Transfusion Reactions: No Reported Reaction Additional Past Anesthesia/Blood Transfusion Reaction / Comment(s): Pt received blood during CABG without reaction. Date of Last Stent Placement:: May 2018 Past Psychological History: Anxiety, Depression, PTSD Smoking Status: Vaper Past Alcohol Use History: None Reported Past Drug Use History: Cocaine - Past Family History Father Family Medical History: Coronary Artery Disease (CAD), Deep Vein Thrombosis (DVT), GERD/Reflux, Hyperlipidemia Additional Family Medical History / Comment(s): Father of a [place] in his 80's Mother Family Medical History: Coronary Artery Disease (CAD) Additional Family Medical History / Comment(s): Mother of a [place] at the age of 76yrs. Sister(s) Family Medical History: Cancer Additional Family Medical History / Comment(s): Lung cancer. Medications and Allergies Home Medications Medication Instructions Recorded Confirmed Type HYDROcodone/APAP 10-325MG [[place] 1 tab PO QID PRN 02/22/15 09/09/22 History 10-325] ALPRAZolam [Xanax] 2 mg PO TID PRN 02/23/15 09/09/22 History rOPINIRole HCL [Requip] 0.25 mg PO HS 09/29/17 09/09/22 History Fenofibrate Nanocrystallized 48 mg PO HS 06/11/18 09/09/22 History [Fenofibrate] Fluticasone Nasal [place] [Flonase 1 spray EA NOSTRIL DAILY 06/11/18 09/09/22 History Nasal [place]] Clopidogrel [Plavix] 75 mg PO HS 12/18/18 09/09/22 History Aspirin 325 mg PO DAILY #100 tab 05/13/19 09/09/22 Rx Metoprolol Tartrate [Lopressor] 50 mg PO BID 05/13/19 09/09/22 History Nitroglycerin Sl Tabs [Nitrostat] 0.4 mg SUBLINGUAL Q5M PRN 05/13/19 09/09/22 History Albuterol Sulfate [Ventolin HFA] 1 - 2 puff INHALATION RT-Q4H PRN 05/25/20 09/09/22 History DULoxetine HCL [Cymbalta] 60 mg PO DAILY 05/25/20 09/09/22 History Budesonide-Formot 160-4.5 Mcg 2 puff INHALATION RT-BID 10/04/21 09/09/22 History [Symbicort 160-4.5 Mcg Inhaler] amLODIPine [Norvasc] 5 mg PO HS 10/04/21 09/09/22 History Isosorbide Mononitrate ER [Imdur] 30 mg PO DAILY #90 tab 10/05/21 09/09/22 Rx Ergocalciferol [Vitamin D2 (1250 1,250 mcg PO Q14D 09/09/22 09/09/22 History Mcg = 58767 Iu)] Evolocumab [Repatha Sureclick] 140 mg SQ Q14D 09/09/22 09/09/22 History Allergies Allergy/AdvReac Type Severity Reaction Status Date / Time latex Allergy Swelling Verified 11/11/22 11:14 atorvastatin [From Lipitor] AdvReac JOINT PAIN Verified 11/11/22 11:14 Physical Exam Vitals: Vital Signs Pulse Pulse Resp BP Pulse Ox 11/11/22 11:18 74 11/11/22 11:03 76 18 114/68 96 Intake and Output 11/10/22 11/11/22 11/11/22 22:59 06:59 14:59 Other: Weight 102.512 kg Results 11/11/22 11:14 Current Medications Generic Name Dose Route Start Last Admin Trade Name Freq PRN Reason Stop Dose Admin Naloxone HCl 0.2 mg 11/11/22 11:22 Naloxone 0.4 Mg/Ml 1 Ml Vial IV Q2M PRN Opioid Reversal Intake and Output 11/10/22 11/11/22 11/11/22 22:59 06:59 14:59 Other: Weight 102.512 kg Patient Weight 11/12/22 06:59 Weight 102.512 kg
[2022-11-11] MEDS ORDERED: niCARdipine 25 MG/10 ML VIAL ONE (11:47)
[2022-11-11 11:48] LABS: Partial Thromboplastin Time 44.7 sec (22.0-30.0); Prothrombin Time 10.9 sec (9.0-12.0)
[2022-11-11 11:50] LABS: Albumin 4.3 g/dL (3.5-5.0); Calcium 8.6 mg/dL (8.4-10.2); Potassium 4.9 mmol/L (3.5-5.1); Total Bilirubin 0.6 mg/dL (0.2-1.3); Total Protein 7.6 g/dL (6.3-8.2)
[2022-11-11] MEDS: HEPARIN SODIUM 1,000 UN/ML (10ML VL) IV ONE ×3 (11:52→12:31)
[2022-11-11] MEDS ORDERED: fentaNYL (PF) 50 MCG/ML 2 ML AMP ONE (11:54)
[2022-11-11] MEDS ORDERED: fentaNYL (PF) 50 MCG/ML 2 ML AMP IV ONE ×2 (11:57)
[2022-11-11] MEDS ORDERED: SODIUM CHLORIDE 0.9% 1,000 ML IV ONE ×2 (11:58→13:08)
[2022-11-11] MEDS: niCARdipine Syringe (1,000 mcg/10 mL) INTRAARTER ONE ×4 (12:04→12:51)
[2022-11-11] MEDS ORDERED: HEPARIN SODIUM 1,000 UN/ML (10ML VL) ONE (12:48)
[2022-11-11] MEDS ORDERED: NITROGLYCERIN 1000MCG/10ML SYRINGE INTRACORON ONE (12:52)
[2022-11-11] MEDS ORDERED: PHENYLEPHRINE-0.9% NACL SYG 1,000 MCG/10 ML SYRINGE IV ONE (12:54)
[2022-11-11] MEDS ORDERED: LIDOCAINE 2% SYG (PF) 100 MG/5 ML IV ONE (13:03)
[2022-11-11] MEDS ORDERED: IOPAMIDOL-370 100ML BTL INJ ONE (13:06)
[2022-11-11] MEDS ORDERED: IOPAMIDOL-370 125ML BTL INJ ONE (13:06)
[2022-11-11] MEDS ORDERED: MAG HYDROX/AL HYDROX/SIMETH 30 ML CUP PO PRN (13:42)
[2022-11-11] MEDS ORDERED: ATROPINE SULFATE 0.1 MG/ML 10ML SYRINGE IV PRN (13:42)
[2022-11-11] MEDS ORDERED: ZOLPIDEM 5 MG TAB PO PRN (13:42)
[2022-11-11] MEDS ORDERED: NITROGLYCERIN SL TABS 0.4 MG TAB SUBLINGUAL PRN (13:42)
[2022-11-11] MEDS ORDERED: RX INFO: IV CONTRAST WAS GIVEN 1 EACH MISC MISCELLANE PRN (13:42)
[2022-11-11] MEDS ORDERED: SODIUM CHLORIDE 0.9% 1,000 ML in EMPTY BAG 1 BAG IV SCH (13:45)
[2022-11-11 13:55] LABS: Glucose,Whole Blood 133 mg/dL (70-110)
[2022-11-11 14:31] VITALS: BMI 33.3
[2022-11-11] MEDS: HYDROcodone/APAP 10-325MG 1 EACH TAB PO PRN ×2 (16:01→22:08)
[2022-11-11] MEDS: ALPRAZolam 1 MG TAB PO PRN ×2 (16:01→20:08)
[2022-11-11] MEDS ORDERED: FUROSEMIDE 10 MG/ML 4 ML VIAL IV STA (17:25)
--- NOTE | 2022-11-11 17:35 | XR ---
EXAMINATION TYPE: XR chest 1V portable DATE OF EXAM: 11/11/2022 COMPARISON: Today HISTORY: Short of breath TECHNIQUE: FINDINGS: There is pulmonary interstitial and airspace edema. There are sternal wires. There are ches t leads. Bony thorax is intact IMPRESSION: There is pulmonary edema which is slightly worse than earlier today and consistent with a cute heart failure or developing RDS.
[2022-11-11] MEDS: MAGNESIUM SULFATE-D5W PMX 1 GM in DEXTROSE/WATER 1 100ML.BAG IVPB SCH ×2 (18:24→19:47)
--- NOTE | 2022-11-11 18:36 | P.PCN ---
Date of Procedure: 11/11/22 Operative Findings: Heart catheterization and percutaneous coronary intervention Performing physician Frank Wiggins MD Procedure performed: 1. Selective left and right coronary angiogram 2. SVG to LAD angiogram 3. Manual and mechanical aspiration thrombectomy from the SVG to LAD 4. Successful stenting of the left anterior descending artery 5. Successful stenting of the SVG to LAD using 3.5 x 38 mm Xience HAYDEN 6. Left heart catheterization 7. Selective left common femoral artery angiogram 8. Ultrasound-guided access of the left common femoral artery Indication: This is a 67-year-old gentleman with CAD and prior revascularization internum of CABG and stenting with the last heart catheterization showing severe triple- vessel CAD with only graft was SVG to LAD which has in-stent restenosis as well as hypertension and dyslipidemia was a transfer from another hospital after he presented with chest discomfort and EKG showing an acute anterior ST elevation myocardial infarction. The decision was made toward an emergent heart catheterization. Approach: Left common femoral artery Complications: None Level of sedation: Moderate with sedation length of 90 minutes Procedure description: After obtaining an informed consent the patient was brought to the cardiac laboratory chemical assistant. The left common femoral artery was cannulated using micropuncture technique under ultrasound guidance, the micropuncture wire passed easily then I placed a 6 [place] feet at the left common femoral artery. I did go immediately and engaged the SVG to LAD using initially an LCB guide but the guide was not giving me any good support and for that reason I decided to change the guide into an AL-1. Please see the full report of the intervention on the SVG to LAD. Subsequently after the intervention was performed and after restoring flow to the LAD I did selective left and right coronary angiogram. Selective left coronary angiogram was performed using JL4 catheter and selective right coronary angiogram was performed using JR4 catheter. Depending doing left heart catheterization after the 035 wire across the aortic valve was performed but subsequently the patient went into ventricular fibrillation and we had to shock the patient to bring him back to normal sinus mechanism. After that I did selective left common femoral artery angiogram. The procedure was completed. Selective coronary angiogram: The left main: The left main is a large caliber vessel with distal disease at least appeared to be in the range of 50%. Bifurcates into an LCx and ramus intermedius and left anterior descending artery The LAD: Is occluded in the proximal portion The ramus intermedius: Has ostial lesion at least in the range of 70-80% The LCx: The ostial LCx has also an ostial lesion appeared to be at least in the range of 70-80% The RCA: Is occluded by the ostium. Left heart catheterization: Upon crossing the aortic valve and upon trying to obtain LVEDP the patient went into ventricular fibrillation and we shocked the patient will brought him back to normal sinus mechanism and he was started on lidocaine and also he was given magnesium. PCI of the SVG to LAD: Anticoagulation was initiated using heparin with continuous ACT monitoring throughout the procedure. Please note that before the patient was given any heparin we checked the ACT because the patient received streptokinase at the other hospital. After the ACT was checked and came in to be below 175 we did give the patient heparin IV with continuous ACT monitoring. Initially I engaged the SVG to LAD using an LCB guide. I did wired using a run-through wire. I cou ld not cross the distal part of the graft to the left anterior descending artery and the wire distally went into a branch. I did attempt doing balloon angioplasty of the SVG to LAD using 3.5 mm balloon but unfortunately the guide was not giving me any support and for that reason I decided to change my guide. I pulled the wire out and also I pulled the guide out. I did exchange my guide from LCB into an AL-1 guiding catheter. The AL-1 was more coaxial to the ostial of the graft than the LCB. I did wire the graft this time using a whisper wire. I advanced the wire distal to the distal anastomosis. The wire was advanced all the way to the apex of the LV. Balloon angioplasty was initially performed using 3.5 mm balloon and I was unable to restore any flow in the graft. I gave the patient intracoronary nicardipine and intracoronary nitroglycerin with no success in restoring the flow. Please note that during that time the patient was experiencing chest discomfort and significant ST segment changes. At that point I decided to do manual aspiration thrombectomy from the SVG to LAD. I performed that using an aspiration catheter but I was unsuccessful in restoring flow. At that point I decided to do balloon angioplasty of the distal anastomosis where the graft needs the LAD. That was performed using 2.5 mm balloon and also I did balloon angioplasty distal to the distal anastomosis. With that I was unable to restore the flow in the graft. At that point I decided to perform mechanical aspiration thrombectomy. That was performed overall is 0.14 wire. After that I gave the patient nicardipine again and nitroglycerin again. No flow was restored. At that point I decided to place a stent at the distal anastomosis and stent the rest of the graft. For the distal anastomosis I placed 2.5 x 18 mm stent. For the mid-portion of the graft I placed 3.5 x 38 and for the very proximal portion I placed 3.5 x 38 as well millimeters stents. The following angiogram showed that the proximal portion of the stent has in-stent restenosis appears to be in the range of 50-60%. Attempting doing balloon angioplasty again using 3.5 mm noncompliant balloon was performed but was unsuccessful in achieving 0% restenosis. There was KATE III flow and the patient's symptoms were improved as well as the EKG changes and for that reason we decided to stop Conclusion: 1. Acute anterior ST elevation myocardial infarction 2. Acute total occlusion of the SVG to LAD with a large thrombus burden 3. Status post PCI of the SVG to LAD with adjunctive use of aspiration thrombectomy 4. The procedure was complicated with ventricular fibrillation upon crossing the aortic Plan: ICU admission An echocardiogram with Doppler Lidocaine drip Dual antiplatelet therapy Possible anticoagulation as well in addition to dual antiplatelet therapy, triple therapy Follow-up with the
[2022-11-11] MEDS: METOPROLOL TARTRATE 50 MG TAB PO SCH (20:08)
[2022-11-11] MEDS: FENOFIBRATE 54 MG TAB PO SCH (20:09)
[2022-11-11] MEDS ORDERED: CLOPIDOGREL 75 MG TAB PO SCH (21:00)
[2022-11-11] MEDS: SYMBICORT 160-4.5 MCG INHALER INHALATION SCH (21:35)
[2022-11-11] MEDS: amLODIPine 5 MG TAB PO SCH (22:10)
[2022-11-12] MEDS: HYDROcodone/APAP 10-325MG 1 EACH TAB PO PRN ×3 (04:41→21:12)
[2022-11-12 06:20] LABS: Basophils # (A) 0.1 k/uL (0-0.2); Basophils % (A) 0 %; Eosinophils # (A) 0.1 k/uL (0-0.7); Eosinophils % (A) 0 %; HCT 50.8 % (39.0-53.0); HGB 16.2 gm/dL (13.0-17.5); Lymphocytes # (A) 2.7 k/uL (1.0-4.8); Lymphocytes % (A) 11 %; MCH 29.7 pg (25.0-35.0); MCV 92.8 fL (80.0-100.0); Mean Platelet Volume 10.4; Monocytes # (A) 1.1 k/uL (0-1.0); Monocytes % (A) 5 %; Neutrophils # (A) 19.3 k/uL (1.3-7.7); Neutrophils % (A) 83 %; Platelet Count 208 k/uL (150-450); RBC 5.48 m/uL (4.30-5.90); WBC 23.3 k/uL (3.8-10.6)
[2022-11-12 06:34] LABS: Potassium 4.8 mmol/L (3.5-5.1)
[2022-11-12 06:35] LABS: Calcium 8.8 mg/dL (8.4-10.2)
[2022-11-12] MEDS ORDERED: FUROSEMIDE 10 MG/ML 4 ML VIAL IV STA (08:20)
[2022-11-12] MEDS: SYMBICORT 160-4.5 MCG INHALER INHALATION SCH ×2 (08:22→20:33)
[2022-11-12] MEDS: METOPROLOL TARTRATE 50 MG TAB PO SCH ×2 (08:45→20:08)
[2022-11-12] MEDS: ISOSORBIDE MONONITRATE ER 30 MG TAB.ER.24H PO SCH (08:45)
[2022-11-12] MEDS: DULoxetine HCL 60 MG CAPSULE.DR PO SCH (08:45)
[2022-11-12] MEDS: ASPIRIN 81 MG PO SCH (08:45)
[2022-11-12] MEDS: ALPRAZolam 1 MG TAB PO PRN ×2 (08:45→20:08)
[2022-11-12] MEDS: FLUTICASONE 50MCG/SPRAY NASAL 16GM EA NOSTRIL SCH (08:47)
[2022-11-12] MEDS: PRASUGREL 10 MG TAB PO SCH (08:47)
[2022-11-12] MEDS ORDERED: ASPIRIN 325 MG TAB PO SCH (09:00)
--- NOTE | 2022-11-12 12:09 | PN ---
PROGRESS NOTE SUBJECTIVE: Mr. Simmons is a 67-year-old gentleman with history of coronary artery disease status post prior bypass surgery, who presented to hospital with acute anterior wall myocardial infarction, underwent cardiac catheterization by my associate, Dr. Wiggins, who regularly follows him in the office and had mechanical aspiration thrombectomy of the SVG to LAD, and successful stenting of the LAD and the SVG was also stented. The patient had ventricular fibrillation on the table and had to be resuscitated. This morning, the patient appears comfortable at rest. He is on aspirin, Norvasc, nebulizers, Imdur, Lopressor, and Effient. I have given Lasix and I am starting him on Lasix 40 b.i.d. he is short of breath, and white cell count was elevated. His troponins were high. Creatinine is 1.3. Potassium is 4.8. OBJECTIVE: VITAL SIGNS: Afebrile, heart rate is 88 beats per minute, blood pressure is 122/78, respiratory rate is 30, O2 saturation is 91% on 9 L of high-flow. NECK: There is no jugular venous distention. CHEST: Reveals bilateral crackles. HEART: Reveals first and second heart sounds. No gallop. Has a systolic murmur at the left lower sternal border. ABDOMEN: Soft. EXTREMITIES: Did not reveal any edema. ASSESSMENT: Acute anterior wall myocardial infarction, status post cath and angioplasty of the venous graft to the LAD. PLAN: The patient will continue current medications including aspirin, Norvasc, Lofibra, Imdur, Lopressor, and Effient. Obtain a 2D echo to evaluate his LV function. Give him IV Lasix. Continue the nebulizers. The patient has elevated white cell count. Management is per primary. MMODL / IJN: [id number] /
--- NOTE | 2022-11-12 13:29 | CA ---
Transthoracic Echo Report Name: Israel Simmons Age: 67 Gender: M : 1955 Exam Date: 11/12/2022 07:48 Exam Location: [facility] Ht (in): 69 Wt (lb): 236 Ordering Physician: Serina Card Attending/Referring Phys: [id number], [employer] Leticia Silva RDCS Procedure CPT: Indications: LV function, STEMI Cardiac Hx: Technical Quality: Contrast 1: Total Dose (mL): Contrast 2: Total Dose (mL): MEASUREMENTS (Male / Female) Normal Values 2D ECHO LV Diastolic Diameter PLAX 5.4 cm 4.2 - 5.9 / 3.9 - 5.3 cm LV Systolic Diameter PLAX 4.4 cm IVS Diastolic Thickness 1.2 cm 0.6 - 1.0 / 0.6 - 0.9 cm LVPW Diastolic Thickness 1.5 cm 0.6 - 1.0 / 0.6 - 0.9 cm LV Relative Wall Thickness 0.5 RV Internal Dim ED PLAX 4.0 cm LV Diastolic Volume MOD BP 100.9 cm??? 67 - 155 / 56 - 104 cm??? LV Systolic Volume MOD BP 80.1 cm??? 22 - 58 / 19 - 49 cm??? LV Ejection Fraction MOD BP 20.6 % >= 55 % LV Diastolic Volume MOD 4C 102.5 cm??? LV Systolic Volume MOD 4C 67.5 cm??? LV Ejection Fraction MOD 4C 34.1 % LV Diastolic Length 4C 7.9 cm LV Systolic Length 4C 8.2 cm LV Diastolic Volume MOD 2C 95.3 cm??? LV Systolic Volume MOD 2C 96.6 cm??? LV Ejection Fraction MOD 2C -1.3 % LV Diastolic Length 2C 7.6 cm LV Systolic Length 2C 8.2 cm LA Volume 64.3 cm??? 18 - 58 / 22 - 52 cm??? M-MODE Aortic Root Diameter MM 3.1 cm LA Systolic Diameter MM 3.9 cm LA Ao Ratio MM 1.2 MV E Point Septal Separation 2.1 cm AV Cusp Separation MM 1.6 cm DOPPLER MV Area PHT 5.8 cm??? Mitral E Point Velocity 41.7 cm/s Mitral A Point Velocity 51.5 cm/s Mitral E to A Ratio 0.8 MV Deceleration Time 129.9 ms MV E' Velocity 3.9 cm/s Mitral E to MV E' Ratio 10.7 FINDINGS Left Ventricle Mildly increased septal wall thickness. Moderately increased left ventricular systolic volume. Severely decreased left ventricular ejection fraction. Anterseptal, Apical, Inferior Hypokinesis. Left ventricular ejection fraction is estimated at 35%. Right Ventricle Normal right ventricular size and function. Right ventricular systolic pressure within normal limits. Right Atrium Normal right atrial size. Left Atrium Mildly increased left atrial volume. Normal left atrial size. Mitral Valve Structurally normal mitral valve. Aortic Valve Trileaflet aortic valve. Tricuspid Valve Structurally normal tricuspid valve. Mild tricuspid regurgitation. Pulmonic Valve Pulmonic valve not well visualized. Pericardium Normal pericardium. Aorta Normal size aortic root and proximal ascending aorta. CONCLUSIONS Ischemic cardiomyopathy with an ejection fraction of 35% with evidence of prior myocardial infarction in the involving anteroseptal apex and inferior wall Previewed by: Dr. Joao Flood MD (Electronically Signed) Final Date: 12 November 2022 13:29
[2022-11-12] MEDS: FUROSEMIDE 10 MG/ML 4 ML VIAL IV SCH ×2 (15:57→23:29)
--- NOTE | 2022-11-12 16:39 | HP ---
HISTORY AND PHYSICAL CHIEF COMPLAINT: Chest pain. HISTORY OF PRESENT ILLNESS: This is another of many admissions for this 67-year-old white male with an extensive history of coronary artery disease. He has had bypass surgery in the past and previous stenting as well. He has continued to smoke. He has had fairly good control of his blood pressure, but continues to be a high risk for disease. He came in with chest pain and was found to have an acute ST-segment elevation [place], and he ws taken to the [facility]. REVIEW OF SYSTEMS: Not obtained at this time. Past medical history, family history, and personal and social history reveal he is allergic to: 1. Pravachol. 2. Lipitor. 3. Latex. He takes: 1. Xanax. 2. Aspirin. 3. Nicotine patch. 4. Fenofibrate. 5. Metoprolol. 6. Ropinirole. 7. Duloxetine. 8. Repatha. 9. Symbicort. 10.Diclofenac. 11.Sildenafil. 12.Lisinopril. 13.Cyclobenzaprine. 14.Amlodipine. 15.Ranolazine. 16.Clopidogrel. 17.Lasix. History is otherwise unremarkable except he continues to smoke. PHYSICAL EXAMINATION: VITAL SIGNS: Blood pressure is 130/42 with a pulse of 80 and regular, respirations 18, he is afebrile. GENERAL: Appeared to be well developed and in some acute distress. SKIN: Dry. HEAD, EARS, EYES, NOSE, MOUTH, AND THROAT: Normal. NECK: Neck veins are not distended. Thyroid is not enlarged. CHEST: Clear. CARDIAC: Demonstrates normal sinus rhythm with no murmurs or extra sounds. ABDOMEN: Soft and nontender. There are no masses. EXTREMITIES: Normal. NEUROLOGIC: He is intact. IMPRESSION: He is admitted to the hospital with diagnoses of: 1. Acute ST-segment elevation myocardial infarction. 2. Longstanding history of coronary artery disease. 3. Atherosclerotic cardiovascular disease. 4. Chronic obstructive pulmonary disease. 5. Nicotine abuse. 6. Hyperlipidemia. PLAN: The patient is going to [facility] for angiogram. MMODL / IJN: [id number] /
--- NOTE | 2022-11-12 19:29 | PN ---
PROGRESS NOTE DATE OF SERVICE: 11/12/2022 CHIEF COMPLAINT: Status post OK. HISTORY OF PRESENT ILLNESS: This gentleman is doing fairly stable. Vital signs are normal. He is quite lethargic and seems a little bit confused. PHYSICAL EXAMINATION: CHEST: Clear. CARDIAC: Unremarkable. ABDOMEN: Soft, nontender. EXTREMITIES: Normal. IMPRESSION: 1. Status post myocardial infarction with stent placement. 2. Delirium. PLAN: Continue current ICU management and reassess his neurologic status in 24 hours. MMODL / IJN: [id number] /
[2022-11-12] MEDS: APIXABAN 2.5 MG TABLET PO SCH (20:08)
[2022-11-12] MEDS: FENOFIBRATE 54 MG TAB PO SCH (20:09)
[2022-11-12] MEDS: amLODIPine 5 MG TAB PO SCH (21:06)
[2022-11-13 06:11] LABS: Calcium 8.5 mg/dL (8.4-10.2); Potassium 3.8 mmol/L (3.5-5.1)
[2022-11-13] MEDS: SYMBICORT 160-4.5 MCG INHALER INHALATION SCH ×2 (08:06→19:44)
[2022-11-13] MEDS: ASPIRIN 81 MG PO SCH (09:49)
[2022-11-13] MEDS: METOPROLOL TARTRATE 50 MG TAB PO SCH ×2 (09:49→20:01)
[2022-11-13] MEDS: ISOSORBIDE MONONITRATE ER 30 MG TAB.ER.24H PO SCH (09:49)
[2022-11-13] MEDS: APIXABAN 2.5 MG TABLET PO SCH ×2 (09:49→20:01)
[2022-11-13] MEDS: DULoxetine HCL 60 MG CAPSULE.DR PO SCH (09:49)
[2022-11-13] MEDS: FUROSEMIDE 10 MG/ML 4 ML VIAL IV SCH ×2 (09:50→16:49)
[2022-11-13] MEDS: PRASUGREL 10 MG TAB PO SCH (09:50)
[2022-11-13] MEDS: FLUTICASONE 50MCG/SPRAY NASAL 16GM EA NOSTRIL SCH (09:55)
[2022-11-13] MEDS: HYDROcodone/APAP 10-325MG 1 EACH TAB PO PRN ×2 (10:02→17:52)
--- NOTE | 2022-11-13 10:13 | XR ---
EXAMINATION TYPE: XR chest 1V portable DATE OF EXAM: 11/13/2022 10:07 AM COMPARISON: Chest radiographs from 11/11/2022 TECHNIQUE: XR chest 1V portable Portable AP radiograph of the chest. CLINICAL INDICATION:Male, 67 years old with history of chf; FINDINGS: Lungs/Pleura: The right costophrenic angle There is no evidence of focal consolidation, or pneumothor ax. Pulmonary vascularity: Mild pulmonary vascular congestion. Heart/mediastinum: Cardiomediastinal silhouette is enlarged and stable. Musculoskeletal: No acute osseous pathology. Midline sternotomy wires are noted. IMPRESSION: Cardiomegaly, pulmonary vascular congestion and right pleural effusions.
--- NOTE | 2022-11-13 14:01 | PN ---
PROGRESS NOTE SUBJECTIVE: Israel is a 67-year-old gentleman, who presented to hospital with acute myocardial infarction. He was initially treated with thrombolytic because of lack of reperfusion, underwent cardiac catheterization and rescue angioplasty of the venous graft to the LAD. He was in respiratory failure yesterday that has been improved to some extent. OBJECTIVE: VITAL SIGNS: He is afebrile, heart rate is 84 beats per minute, blood pressure is 95/59. CHEST: Reveals good air entry bilaterally. I do not hear any crackles or rhonchi. HEART: Reveals first and second heart sounds. No gallop. No murmur. EXTREMITIES: Did not reveal any edema. MEDICATIONS: He is currently on: 1. Norvasc. 2. Aspirin. 3. Imdur. 4. Lopressor. 5. Lasix 40 q.8. 6. Effient. 7. I added Eliquis yesterday. LABORATORY DATA: Labs showed a potassium of 3.8, BUN is 30, creatinine is 1.2. An echocardiogram on this admission revealed ischemic cardiomyopathy with an ejection fraction of 35%. ASSESSMENT: 1. Anterior wall myocardial infarction, status post catheterization and rescue angioplasty. 2. Ischemic cardiomyopathy. 3. Acute onset systolic heart failure. PLAN: I will continue the intravenous diuretics, beta blockers, and nitrates. Continue the Effient. Continue the Eliquis at this time. MMODL / IJN: [id number] /
[2022-11-13] MEDS: FENOFIBRATE 54 MG TAB PO SCH (20:01)
[2022-11-13] MEDS: ALPRAZolam 1 MG TAB PO PRN (20:04)
[2022-11-13] MEDS: amLODIPine 5 MG TAB PO SCH (20:04)
[2022-11-14] MEDS: FUROSEMIDE 10 MG/ML 4 ML VIAL IV SCH ×4 (00:12→23:19)
[2022-11-14 06:26] LABS: Calcium 8.1 mg/dL (8.4-10.2); Potassium 3.3 mmol/L (3.5-5.1)
--- NOTE | 2022-11-14 07:55 | P.PN ---
Subjective Progress Note Date: 11/14/22 Principal diagnosis: Acute coronary syndrome The patient is a pleasant 67-year-old gentleman who was transferred from another facility after he presented with chest discomfort and was diagnosed with acute anterior C patient myocardial infarction. He underwent successful stenting of the SVG to LAD with extremely complex procedure. The echo showed impaired LV function was EF around 35% November 142022 He was seen this morning. He continues to have mid back pain but no chest pain. That is chronic pain. Hemodynamically he is stable. He continues to be in failure. Currently he is on Lasix IV. Objective - Vital Signs Vital signs: Vital Signs Temp 99.5 F 11/14/22 04:00 Pulse 75 11/14/22 04:00 Resp 29 H 11/14/22 04:00 BP 101/59 11/14/22 04:00 Pulse Ox 92 L 11/14/22 04:00 FiO2 Intake & Output 11/13/22 11/14/22 11/14/22 18:59 06:59 18:59 Intake Total 1070 480 Output Total 1150 500 Balance -80 -20 Weight 106.6 kg Intake: Oral 1070 480 Output: Urine 1150 500 Other: Voiding Method Urinal Urinal # Voids 2 1 ABP, PAP, CO, CI - Last Documented Arterial Blood Pressure 131/64 - Constitutional General appearance: Present: no acute distress - Respiratory Respiratory: bilateral: diminished - Cardiovascular Rhythm: regular - Labs CBC & Chem 7: 11/12/22 05:46 11/14/22 05:26 Labs: Abnormal Lab Results - Last 24 Hours (Table) 11/14/22 Range/Units 05:26 Sodium 132 L (137-145) mmol/L Potassium 3.3 L (3.5-5.1) mmol/L Chloride 96 L (98-107) mmol/L Carbon Dioxide 31 H (22-30) mmol/L BUN 34 H (9-20) mg/dL Creatinine 1.29 H (0.66-1.25) mg/dL Glucose 104 H (74-99) mg/dL Calcium 8.1 L (8.4-10.2) mg/dL Assessment and Plan Assessment: Assessment Acute anterior ST elevation myocardial infarction Severe ischemic cardiomyopathy Heart failure related to heart failure with reduced ejection fraction Plan Continue the current medical regimen Continue triple therapy Continue Lasix for additional 24 hours Continue monitor the kidney function and electrolytes
[2022-11-14] MEDS: ASPIRIN 81 MG PO SCH (08:36)
[2022-11-14] MEDS: METOPROLOL TARTRATE 50 MG TAB PO SCH ×2 (08:36→19:55)
[2022-11-14] MEDS: FLUTICASONE 50MCG/SPRAY NASAL 16GM EA NOSTRIL SCH (08:37)
[2022-11-14] MEDS: APIXABAN 2.5 MG TABLET PO SCH ×2 (08:37→19:55)
[2022-11-14] MEDS: DULoxetine HCL 60 MG CAPSULE.DR PO SCH (08:37)
[2022-11-14] MEDS: HYDROcodone/APAP 10-325MG 1 EACH TAB PO PRN ×3 (08:37→19:55)
[2022-11-14] MEDS: ISOSORBIDE MONONITRATE ER 30 MG TAB.ER.24H PO SCH (08:37)
[2022-11-14] MEDS: SYMBICORT 160-4.5 MCG INHALER INHALATION SCH ×2 (08:39→19:36)
[2022-11-14] MEDS: PRASUGREL 10 MG TAB PO SCH (09:34)
[2022-11-14] MEDS: POTASSIUM CHLORIDE ER 20 MEQ TAB.ER PO SCH (11:19)
[2022-11-14 11:25] LABS: Basophils # (A) 0.1 k/uL (0-0.2); Basophils % (A) 0 %; Eosinophils # (A) 0.1 k/uL (0-0.7); Eosinophils % (A) 0 %; HCT 42.7 % (39.0-53.0); Lymphocytes % (A) 17 %; MCH 29.5 pg (25.0-35.0); MCHC 32.7 g/dL (31.0-37.0); MCV 90.2 fL (80.0-100.0); Mean Platelet Volume 12.2; Monocytes % (A) 8 %; Neutrophils # (A) 8.3 k/uL (1.3-7.7); Neutrophils % (A) 72 %; Platelet Count 137 k/uL (150-450); RBC 4.73 m/uL (4.30-5.90); RDW 13.1 % (11.5-15.5); WBC 11.6 k/uL (3.8-10.6)
[2022-11-14 11:32] LABS: Glucose,Whole Blood 125 mg/dL (70-110)
[2022-11-14 11:54] LABS: Albumin 3.5 g/dL (3.5-5.0); Total Bilirubin 1.4 mg/dL (0.2-1.3); Total Protein 6.2 g/dL (6.3-8.2)
[2022-11-14 12:03] LABS: Appearance,Urine Clear (Clear); Bilirubin,Urine Negative (Negative); Blood,Urine Negative (Negative); Color,Urine Yellow; Glucose,Urine (UA) Negative (Negative); Ketones,Urine Negative (Negative); Leukocyte Esterase,Urine Negative (Negative); Nitrite,Urine Negative (Negative); Protein,Urine Negative (Negative); Specific Gravity,Urine 1.008 (1.001-1.035)
--- NOTE | 2022-11-14 14:11 | XR ---
EXAMINATION TYPE: XR chest 2V DATE OF EXAM: 11/14/2022 2:02 PM COMPARISON: Chest radiographs from 11/13/2022 TECHNIQUE: XR chest 2V Frontal and lateral views of the chest. CLINICAL INDICATION:Male, 67 years old with history of elev. WBC; FINDINGS: Lungs/Pleura: No pleural effusions or pneumothorax. Coarsened interstitial lung markings. Blunting of the right costophrenic angle. Heart/mediastinum: Cardiomediastinal silhouette is prominent stable in size. Musculoskeletal: No acute osseous pathology. Midline sternotomy wires are noted and stable. IMPRESSION: Coarsened interstitial lung markings with mild prominence of the heart, and small right pleural effus ion. This can be seen with CHF exacerbation or developing RDS.
[2022-11-14] MEDS: ALPRAZolam 1 MG TAB PO PRN (19:55)
[2022-11-14] MEDS: amLODIPine 5 MG TAB PO SCH (19:55)
[2022-11-14] MEDS: FENOFIBRATE 54 MG TAB PO SCH (19:56)
--- NOTE | 2022-11-14 22:01 | PN ---
PROGRESS NOTE DATE OF SERVICE: 11/14/2022 CHIEF COMPLAINT: Status post STEMI. HISTORY OF PRESENT ILLNESS: This gentleman remains quite weak and still. At times, he seems to be slightly confused. PHYSICAL EXAMINATION: VITAL SIGNS: Normal. CHEST: Demonstrates good breath sounds with no rales or rhonchi. CARDIAC: Seems normal sinus rhythm. ABDOMEN: Soft, nontender. IMPRESSION: 1. Status post ST-elevation myocardial infarction and stent placement. 2. History of atherosclerotic cardiomyopathy. 3. Chronic obstructive pulmonary disease. 4. Elevated WBC. PLAN: Continue to follow with Cardiology as he slowly begins to increase his activity. MMODL / IJN: [id number] /
[2022-11-15] MEDS ORDERED: IPRATROPIUM-ALBUTEROL 3 ML NEB INHALATION PRN (02:48)
[2022-11-15] MEDS ORDERED: FUROSEMIDE 10 MG/ML 4 ML VIAL IV STA (02:49)
[2022-11-15 07:34] LABS: Calcium 8.2 mg/dL (8.4-10.2)
[2022-11-15 07:40] LABS: Potassium 3.5 mmol/L (3.5-5.1)
[2022-11-15] MEDS: SYMBICORT 160-4.5 MCG INHALER INHALATION SCH ×2 (08:05→19:51)
[2022-11-15] MEDS: IPRATROPIUM-ALBUTEROL 3 ML NEB INHALATION SCH ×4 (08:05→19:51)
[2022-11-15] MEDS ORDERED: Potassium Replacement Protocol 1 EACH MISC MISCELLANE PRN (08:13)
[2022-11-15] MEDS: HYDROcodone/APAP 10-325MG 1 EACH TAB PO PRN ×3 (08:56→19:46)
[2022-11-15] MEDS: FUROSEMIDE 10 MG/ML 4 ML VIAL IV SCH ×3 (08:57→23:19)
[2022-11-15] MEDS: FLUTICASONE 50MCG/SPRAY NASAL 16GM EA NOSTRIL SCH (08:57)
[2022-11-15] MEDS: ASPIRIN 81 MG PO SCH (08:58)
[2022-11-15] MEDS: POTASSIUM CHLORIDE ER 20 MEQ TAB.ER PO SCH ×2 (08:58→11:34)
[2022-11-15] MEDS: APIXABAN 2.5 MG TABLET PO SCH ×2 (08:58→19:47)
[2022-11-15] MEDS: DULoxetine HCL 60 MG CAPSULE.DR PO SCH (08:58)
[2022-11-15] MEDS: ISOSORBIDE MONONITRATE ER 30 MG TAB.ER.24H PO SCH (08:59)
[2022-11-15] MEDS: METOPROLOL TARTRATE 50 MG TAB PO SCH ×2 (08:59→19:47)
[2022-11-15] MEDS: PRASUGREL 10 MG TAB PO SCH (09:00)
--- NOTE | 2022-11-15 12:00 | P.PN ---
Subjective Progress Note Date: 11/15/22 The patient is a pleasant 67-year-old gentleman who was transferred from another facility after he presented with chest discomfort and was diagnosed with acute anterior C patient myocardial infarction. He underwent successful stenting of the SVG to LAD with extremely complex procedure. The echo showed impaired LV function was EF around 35% November 142022 He was seen this morning. He continues to have mid back pain but no chest pain. That is chronic pain. Hemodynamically he is stable. He continues to be in failure. Currently he is on Lasix IV. 11/15 Patient's blood pressure is on the low side this morning. He is on 10 L nasal cannula with pulse ox is 94%. Repeat chest x-ray revealed coarsened interstitial lung markings with mild prominence of the heart and small right pleural effusion. This can be seen with CHF exacerbation or developing ARDS. Patient has been continued on IV Lasix 40 mg every 8 hours. Patient denies having any chest pain and feels that he is better from yesterday. He does complain of some back pain discomfort. PHYSICAL EXAM: VITAL SIGNS: Reviewed. GENERAL: Well-developed in no acute distress. HEENT: Head is normocephalic. Pupils are equal, round. Sclerae anicteric. Mucous membranes of the mouth are moist. Neck supple. No JVD LUNGS: Respirations even and unlabored. Lungs essentially clear to auscultation bilaterally. HEART: Regular rate and rhythm. S1 and S2 heard. ABDOMEN: Soft. Nondistended. Nontender. EXTREMITIES: Normal range of motion. No clubbing or cyanosis. Peripheral pulses intact. No lower extremity edema NEUROLOGIC: Awake and alert. Oriented x 3. Assessment Acute anterior ST elevation myocardial infarction Severe ischemic cardiomyopathy Heart failure related to heart failure with reduced ejection fraction Plan Continue the current medical regimen Continue triple therapy Continue Lasix for additional 24 hours Continue monitor the kidney function and electrolytes Increase activity. Nurse practitioner note has been reviewed by physician. Signing provider agrees with the documented findings, assessment, and plan of care. Objective - Vital Signs Vital signs: Vital Signs Temp 98.2 F 11/15/22 08:00 Pulse 72 11/15/22 08:00 Resp 20 11/15/22 08:00 BP 93/61 11/15/22 08:00 Pulse Ox 94 L 11/15/22 08:00 FiO2 Intake & Output 11/14/22 11/15/22 11/15/22 18:59 06:59 18:59 Intake Total 476 600 Output Total 200 1450 Balance 276 -850 Weight 105.5 kg Intake: Oral 476 600 Output: Urine 200 1450 Other: Voiding Method Urinal Urinal External Catheter External Catheter # Voids 1 ABP, PAP, CO, CI - Last Documented Arterial Blood Pressure 131/64 - Labs CBC & Chem 7: 11/14/22 05:26 11/15/22 06:53 Labs: Abnormal Lab Results - Last 24 Hours (Table) 11/14/22 11/14/22 11/14/22 Range/Units 05:26 05:26 11:28 WBC 11.6 H (3.8-10.6) k/uL Plt Count 137 L (150-450) k/uL Neutrophils # 8.3 H (1.3-7.7) k/uL D-Dimer (<0.60) mg/L FEU Sodium 132 L (137-145) mmol/L Potassium 3.3 L (3.5-5.1) mmol/L Chloride 96 L (98-107) mmol/L Carbon Dioxide 31 H (22-30) mmol/L BUN 34 H (9-20) mg/dL Creatinine 1.29 H (0.66-1.25) mg/dL Glucose 104 H (74-99) mg/dL POC Glucose (mg/dL) 125 H (70-110) mg/dL Calcium 8.1 L (8.4-10.2) mg/dL Total Bilirubin 1.4 H (0.2-1.3) mg/dL AST 174 H (17-59) U/L ALT 51 H (4-49) U/L Total Protein 6.2 L (6.3-8.2) g/dL 11/15/22 11/15/22 Range/Units 06:53 06:53 WBC (3.8-10.6) k/uL Plt Count (150-450) k/uL Neutrophils # (1.3-7.7) k/uL D-Dimer 1.19 H (<0.60) mg/L FEU Sodium 131 L (137-145) mmol/L Potassium (3.5-5.1) mmol/L Chloride 96 L (98-107) mmol/L Carbon Dioxide (22-30) mmol/L BUN 37 H (9-20) mg/dL Creatinine (0.66-1.25) mg/dL Glucose 166 H (74-99) mg/dL POC Glucose (mg/dL) (70-110) mg/dL Calcium 8.2 L (8.4-10.2) mg/dL Total Bilirubin (0.2-1.3) mg/dL AST (17-59) U/L ALT (4-49) U/L Total Protein (6.3-8.2) g/dL
[2022-11-15] MEDS: ALPRAZolam 1 MG TAB PO PRN ×2 (15:46→19:47)
[2022-11-15] MEDS: amLODIPine 5 MG TAB PO SCH (19:46)
[2022-11-15] MEDS: FENOFIBRATE 54 MG TAB PO SCH (19:47)
--- NOTE | 2022-11-15 20:49 | PN ---
PROGRESS NOTE CHIEF COMPLAINT: Status post STEMI with shortness of breath. HISTORY OF PRESENT ILLNESS: This gentleman is still having some difficulty. He is having some shortness of breath. He has had no fever or chills. During the night, he became quite short of breath and congested. Lasix was administered. D-dimer was obtained and it was normal. REVIEW OF SYSTEMS: He is doing a little bit better. He is less short of breath. He has had no chest pain. PHYSICAL EXAMINATION: CHEST: Breath sounds are diminished, but this has been more due to his COPD. There are only scattered rales. CARDIAC: Unchanged. ABDOMEN: Soft, nontender. IMPRESSION: 1. Status post ST elevation myocardial infarction. 2. Coronary artery disease. 3. Chronic obstructive pulmonary disease. 4. Exacerbation of chronic obstructive pulmonary disease. PLAN: Continue to follow with Cardiology. Once he is stable enough, he will be able to be discharged. MMODL / IJN: [id number] /
--- NOTE | 2022-11-16 00:01 | PN ---
PROGRESS NOTE DATE OF SERVICE: 11/13/2022 CHIEF COMPLAINT: Status post STEMI with stents. HISTORY OF PRESENT ILLNESS: This gentleman seems to be a little bit lethargic. He is quite weak. He denies chest pain or shortness of breath. PHYSICAL EXAMINATION: VITAL SIGNS: Normal. CHEST: Demonstrates occasional rales. Breath sounds are somewhat shallow. CARDIAC: Demonstrates sinus rhythm. ABDOMEN: Slightly protuberant, soft and nontender. EXTREMITIES: Normal. IMPRESSION: 1. Status post ST elevation myocardial infarction with stenting. 2. Chronic obstructive pulmonary disease. 3. Coronary artery disease. 4. Cardiomyopathy. 5. Congestive heart failure. PLAN: Slowly progress activity and diet. He seems to be recovering slowly so far. MMODL / IJN: [id number] /
[2022-11-16] MEDS: ALPRAZolam 1 MG TAB PO PRN ×3 (07:10→20:00)
[2022-11-16] MEDS: HYDROcodone/APAP 10-325MG 1 EACH TAB PO PRN ×3 (07:10→20:00)
[2022-11-16] MEDS: IPRATROPIUM-ALBUTEROL 3 ML NEB INHALATION SCH ×4 (08:24→21:13)
[2022-11-16] MEDS: SYMBICORT 160-4.5 MCG INHALER INHALATION SCH ×2 (08:24→21:13)
[2022-11-16] MEDS: ASPIRIN 81 MG PO SCH (08:39)
[2022-11-16] MEDS: ISOSORBIDE MONONITRATE ER 30 MG TAB.ER.24H PO SCH (08:40)
[2022-11-16] MEDS: FLUTICASONE 50MCG/SPRAY NASAL 16GM EA NOSTRIL SCH (08:40)
[2022-11-16] MEDS: METOPROLOL TARTRATE 50 MG TAB PO SCH ×2 (08:40→19:59)
[2022-11-16] MEDS: APIXABAN 2.5 MG TABLET PO SCH ×2 (08:40→19:59)
[2022-11-16] MEDS: DULoxetine HCL 60 MG CAPSULE.DR PO SCH (08:40)
[2022-11-16] MEDS: FUROSEMIDE 10 MG/ML 4 ML VIAL IV SCH ×2 (08:40→16:44)
[2022-11-16] MEDS: CLOPIDOGREL 75 MG TAB PO SCH (08:44)
[2022-11-16] MEDS: POTASSIUM CHLORIDE ER 20 MEQ TAB.ER PO SCH ×2 (10:41→13:06)
--- NOTE | 2022-11-16 13:45 | P.PN ---
Subjective Progress Note Date: 11/16/22 The patient is a pleasant 67-year-old gentleman who was transferred from another facility after he presented with chest discomfort and was diagnosed with acute anterior C patient myocardial infarction. He underwent successful stenting of the SVG to LAD with extremely complex procedure. The echo showed impaired LV function was EF around 35% November 142022 He was seen this morning. He continues to have mid back pain but no chest pain. That is chronic pain. Hemodynamically he is stable. He continues to be in failure. Currently he is on Lasix IV. 11/15 Patient's blood pressure is on the low side this morning. He is on 10 L nasal cannula with pulse ox is 94%. Repeat chest x-ray revealed coarsened interstitial lung markings with mild prominence of the heart and small right pleural effusion. This can be seen with CHF exacerbation or developing ARDS. Patient has been continued on IV Lasix 40 mg every 8 hours. Patient denies having any chest pain and feels that he is better from yesterday. He does complain of some back pain discomfort. 11/16 Patient is currently on O2 at 8 L nasal cannula. regional cra is a sinus rhythm. He is urinating significantly and continued on Lasix 40 mg IV every 8 hours. Heart rate is in the 70s and blood pressure 91/55. He feels his breathing is better. No lower extremity edema. PHYSICAL EXAM: VITAL SIGNS: Reviewed. GENERAL: Well-developed in no acute distress. HEENT: Head is normocephalic. Pupils are equal, round. Sclerae anicteric. Mucous membranes of the mouth are moist. Neck supple. No JVD LUNGS: Respirations even and unlabored. Lungs essentially clear to auscultation bilaterally. HEART: Regular rate and rhythm. S1 and S2 heard. ABDOMEN: Soft. Nondistended. Nontender. EXTREMITIES: Normal range of motion. No clubbing or cyanosis. Peripheral pulses intact. No lower extremity edema NEUROLOGIC: Awake and alert. Oriented x 3. Assessment Acute anterior ST elevation myocardial infarction status post aspiration thrombectomy of the CVG to LAD, stenting of the LAD, stenting of the SVG to LAD Severe ischemic cardiomyopathy Heart failure related to heart failure with reduced ejection fraction Plan Continue the current medical regimen Continue triple therapy Continue Lasix for additional 24 hours Continue monitor the kidney function and electrolytes Increase activity. Nurse practitioner note has been reviewed by physician. Signing provider agrees with the documented findings, assessment, and plan of care. Objective - Vital Signs Vital signs: Vital Signs Temp 97.8 F 11/16/22 08:00 Pulse 74 11/16/22 08:00 Resp 18 11/16/22 08:00 BP 109/67 11/16/22 08:00 Pulse Ox 99 11/16/22 08:00 FiO2 Intake & Output 11/15/22 11/16/22 11/16/22 18:59 06:59 18:59 Intake Total 1860 360 Output Total 750 Balance 1860 -390 Weight 103 kg Intake: Oral 1860 360 Output: Urine 750 Other: Voiding Method Urinal Urinal External Catheter External Catheter ABP, PAP, CO, CI - Last Documented Arterial Blood Pressure 131/64 - Labs CBC & Chem 7: 11/14/22 05:26 11/16/22 08:19 Labs: Microbiology - Last 24 Hours (Table) 11/14/22 11:25 Blood Culture - Preliminary Blood No Growth after 24 hours
[2022-11-16] MEDS: FENOFIBRATE 54 MG TAB PO SCH (19:59)
[2022-11-16] MEDS: amLODIPine 5 MG TAB PO SCH (19:59)
--- NOTE | 2022-11-16 23:35 | PN ---
PROGRESS NOTE DATE OF SERVICE: 11/16/2022 CHIEF COMPLAINT: Status post STEMI. HISTORY OF PRESENT ILLNESS: This gentleman seems to be doing well, but the patient does not seem to be quite normal. He denies headaches. He is very weak. PHYSICAL EXAMINATION: VITAL SIGNS: Normal. CHEST: Clear. CARDIAC: Normal. ABDOMEN: Soft, nontender. IMPRESSION: 1. Status post ST elevation myocardial infarction. 2. Coronary artery disease. 3. Chronic obstructive pulmonary disease. PLAN: Assess activity and rehab efforts. It is not clear if he will be going home or to rehab at this point. MMODL / IJN: [id number] /
[2022-11-17] MEDS: FUROSEMIDE 10 MG/ML 4 ML VIAL IV SCH ×5 (00:11→22:58)
[2022-11-17] MEDS: HYDROcodone/APAP 10-325MG 1 EACH TAB PO PRN ×4 (03:26→22:58)
[2022-11-17 07:30] LABS: Calcium 8.4 mg/dL (8.4-10.2); Potassium 3.3 mmol/L (3.5-5.1)
[2022-11-17] MEDS: DULoxetine HCL 60 MG CAPSULE.DR PO SCH (08:58)
[2022-11-17] MEDS: ASPIRIN 81 MG PO SCH (08:58)
[2022-11-17] MEDS: CLOPIDOGREL 75 MG TAB PO SCH (08:58)
[2022-11-17] MEDS: APIXABAN 2.5 MG TABLET PO SCH ×2 (08:58→20:19)
[2022-11-17] MEDS: METOPROLOL TARTRATE 50 MG TAB PO SCH ×2 (08:58→20:19)
[2022-11-17] MEDS: ISOSORBIDE MONONITRATE ER 30 MG TAB.ER.24H PO SCH (08:58)
[2022-11-17] MEDS: ALPRAZolam 1 MG TAB PO PRN ×2 (09:02→17:33)
[2022-11-17] MEDS: SYMBICORT 160-4.5 MCG INHALER INHALATION SCH ×2 (09:02→21:03)
[2022-11-17] MEDS: IPRATROPIUM-ALBUTEROL 3 ML NEB INHALATION SCH ×4 (09:02→21:02)
[2022-11-17] MEDS: FLUTICASONE 50MCG/SPRAY NASAL 16GM EA NOSTRIL SCH (09:36)
[2022-11-17] MEDS ORDERED: POTASSIUM CHLORIDE ER 20 MEQ TAB.ER PO STA (11:10)
--- NOTE | 2022-11-17 11:12 | P.PN ---
Subjective Progress Note Date: 11/17/22 The patient is a pleasant 67-year-old gentleman who was transferred from another facility after he presented with chest discomfort and was diagnosed with acute anterior C patient myocardial infarction. He underwent successful stenting of the SVG to LAD with extremely complex procedure. The echo showed impaired LV function was EF around 35% November 142022 He was seen this morning. He continues to have mid back pain but no chest pain. That is chronic pain. Hemodynamically he is stable. He continues to be in failure. Currently he is on Lasix IV. 11/15 Patient's blood pressure is on the low side this morning. He is on 10 L nasal cannula with pulse ox is 94%. Repeat chest x-ray revealed coarsened interstitial lung markings with mild prominence of the heart and small right pleural effusion. This can be seen with CHF exacerbation or developing ARDS. Patient has been continued on IV Lasix 40 mg every 8 hours. Patient denies having any chest pain and feels that he is better from yesterday. He does complain of some back pain discomfort. 11/16 Patient is currently on O2 at 8 L nasal cannula. 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 He is urinating significantly and continued on Lasix 40 mg IV every 8 hours. Heart rate is in the 70s and blood pressure 91/55. He feels his breathing is better. No lower extremity edema. 11/17 Patient states that he is feeling better today and really wants to go home. He also states he has been ambulating. He continues to have a cough. He is on IV Lasix 40 mg every 8 hours. Heart rate is running in the 70s and 80s, blood pressure 115/70, pulse ox 94% on 5 L nasal cannula. Sodium 131, potassium 3.3 and will be replaced, BUN 32 and creatinine 1.11. PHYSICAL EXAM: VITAL SIGNS: Reviewed. GENERAL: Well-developed in no acute distress. HEENT: Head is normocephalic. Pupils are equal, round. Sclerae anicteric. Mucous membranes of the mouth are moist. Neck supple. No JVD LUNGS: Respirations even and unlabored. Lungs essentially clear to auscultation bilaterally. HEART: Regular rate and rhythm. S1 and S2 heard. ABDOMEN: Soft. Nondistended. Nontender. EXTREMITIES: Normal range of motion. No clubbing or cyanosis. Peripheral pulses intact. No lower extremity edema NEUROLOGIC: Awake and alert. Oriented x 3. Assessment Acute anterior ST elevation myocardial infarction status post aspiration thrombectomy of the CVG to LAD, stenting of the LAD, stenting of the SVG to LAD Severe ischemic cardiomyopathy Heart failure related to heart failure with reduced ejection fraction Plan Continue the current medical regimen Continue triple therapy Brilinta discontinued and patient started on Plavix due to hemoptysis Continue Lasix for additional 24 hours Continue monitor the kidney function and electrolytes Increase activity. Nurse practitioner note has been reviewed by physician. Signing provider agrees with the documented findings, assessment, and plan of care. Objective - Vital Signs Vital signs: Vital Signs Temp 97.8 F 11/17/22 03:59 Pulse 80 11/17/22 03:59 Resp 18 11/17/22 03:59 BP 103/64 11/17/22 03:59 Pulse Ox 94 L 11/17/22 03:59 FiO2 Intake & Output 11/16/22 11/17/22 11/17/22 18:59 06:59 18:59 Intake Total 720 Output Total 200 400 Balance 520 -400 Weight 103 kg Intake: Oral 720 Output: Urine 200 400 Other: Voiding Method Urinal Toilet # Voids 1 ABP, PAP, CO, CI - Last Documented Arterial Blood Pressure 131/64 - Labs CBC & Chem 7: 11/14/22 05:26 11/17/22 06:52 Labs: Abnormal Lab Results - Last 24 Hours (Table) 11/16/22 11/17/22 Range/Units 08:19 06:52 Sodium 131 L (137-145) mmol/L Potassium 3.2 L 3.3 L (3.5-5.1) mmol/L Chloride 93 L (98-107) mmol/L BUN 32 H (9-20) mg/dL Glucose 111 H (74-99) mg/dL Microbiology - Last 24 Hours (Table) 11/14/22 11:25 Blood Culture - Preliminary Blood No Growth after 48 hours
[2022-11-17] MEDS: amLODIPine 5 MG TAB PO SCH (20:19)
[2022-11-17] MEDS: FENOFIBRATE 54 MG TAB PO SCH (20:19)
[2022-11-17 21:00] LABS: Glucose,Whole Blood 126 mg/dL (70-110)
--- NOTE | 2022-11-17 22:06 | PN ---
PROGRESS NOTE DATE OF SERVICE: 11/17/2022 CHIEF COMPLAINT: Status post STEMI and stent placement. HISTORY OF PRESENT ILLNESS: Hemodynamically, this patient is doing fairly well. Cardiology was going to send him home today, but his mentation is not normal. He does have delirium. He also fell in the bathroom tonight. REVIEW OF SYSTEMS: He denies chest pain, headache, confusion, neurologic deficits, visual changes, etc. PHYSICAL EXAMINATION: VITAL SIGNS: Normal. CHEST: Clear. CARDIAC: Normal. ABDOMEN: Soft, nontender. IMPRESSION: 1. Status post ST-segment myocardial infarction. 2. Delirium. 3. Chronic obstructive pulmonary disease. 4. History of low back pain. PLAN: He will not go home today. Rehab was discussed with him, but he refuses. He states he has somebody who will, "look in on him." MMODL / IJN: [id number] /
[2022-11-18 07:57] LABS: Calcium 8.5 mg/dL (8.4-10.2); Potassium 3.4 mmol/L (3.5-5.1)
[2022-11-18] MEDS: IPRATROPIUM-ALBUTEROL 3 ML NEB INHALATION SCH ×3 (08:15→16:26)
[2022-11-18] MEDS: SYMBICORT 160-4.5 MCG INHALER INHALATION SCH (08:16)
[2022-11-18] MEDS ORDERED: amLODIPine 2.5 MG TAB PO SCH (09:00)
[2022-11-18] MEDS: ASPIRIN 81 MG PO SCH (09:24)
[2022-11-18] MEDS: FUROSEMIDE 10 MG/ML 4 ML VIAL IV SCH (09:24)
[2022-11-18] MEDS: ISOSORBIDE MONONITRATE ER 30 MG TAB.ER.24H PO SCH (09:25)
[2022-11-18] MEDS: APIXABAN 2.5 MG TABLET PO SCH (09:25)
[2022-11-18] MEDS: METOPROLOL TARTRATE 50 MG TAB PO SCH (09:25)
[2022-11-18] MEDS: DULoxetine HCL 60 MG CAPSULE.DR PO SCH (09:25)
[2022-11-18] MEDS: CLOPIDOGREL 75 MG TAB PO SCH (09:25)
[2022-11-18] MEDS: FLUTICASONE 50MCG/SPRAY NASAL 16GM EA NOSTRIL SCH (09:26)
[2022-11-18] MEDS: HYDROcodone/APAP 10-325MG 1 EACH TAB PO PRN (09:33)
[2022-11-18] MEDS ORDERED: POTASSIUM CHLORIDE ER 20 MEQ TAB.ER PO STA (10:43)
--- NOTE | 2022-11-18 10:44 | P.PN ---
Subjective Progress Note Date: 11/18/22 The patient is a pleasant 67-year-old gentleman who was transferred from another facility after he presented with chest discomfort and was diagnosed with acute anterior C patient myocardial infarction. He underwent successful stenting of the SVG to LAD with extremely complex procedure. The echo showed impaired LV function was EF around 35% November 142022 He was seen this morning. He continues to have mid back pain but no chest pain. That is chronic pain. Hemodynamically he is stable. He continues to be in failure. Currently he is on Lasix IV. 11/15 Patient's blood pressure is on the low side this morning. He is on 10 L nasal cannula with pulse ox is 94%. Repeat chest x-ray revealed coarsened interstitial lung markings with mild prominence of the heart and small right pleural effusion. This can be seen with CHF exacerbation or developing ARDS. Patient has been continued on IV Lasix 40 mg every 8 hours. Patient denies having any chest pain and feels that he is better from yesterday. He does complain of some back pain discomfort. 11/16 Patient is currently on O2 at 8 L nasal cannula. 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 He is urinating significantly and continued on Lasix 40 mg IV every 8 hours. Heart rate is in the 70s and blood pressure 91/55. He feels his breathing is better. No lower extremity edema. 11/17 Patient states that he is feeling better today and really wants to go home. He also states he has been ambulating. He continues to have a cough. He is on IV Lasix 40 mg every 8 hours. Heart rate is running in the 70s and 80s, blood pressure 115/70, pulse ox 94% on 5 L nasal cannula. Sodium 131, potassium 3.3 and will be replaced, BUN 32 and creatinine 1.11. 11/18 Patient is currently off oxygen and denies chest pain or shortness of breath. Patient denies any hemoptysis. His blood pressure is marginal and amlodipine will be decreased to 0.5 mg. He has been on IV Lasix and was transitioned to o ral at 40 mg twice daily. Heart rate is in the 70s and 80s, blood pressure 102/58 and 96/59, pulse ox 94% on room air. Sodium 133, potassium 3.4, chloride 91, CO2 33, BUN 31 creatinine 1.2. PHYSICAL EXAM: VITAL SIGNS: Reviewed. GENERAL: Well-developed in no acute distress. HEENT: Head is normocephalic. Pupils are equal, round. Sclerae anicteric. Mucous membranes of the mouth are moist. Neck supple. No JVD LUNGS: Respirations even and unlabored. Lungs essentially clear to auscultation bilaterally. HEART: Regular rate and rhythm. S1 and S2 heard. ABDOMEN: Soft. Nondistended. Nontender. EXTREMITIES: Normal range of motion. No clubbing or cyanosis. Peripheral pulses intact. No lower extremity edema NEUROLOGIC: Awake and alert. Oriented x 3. Assessment Acute anterior ST elevation myocardial infarction status post aspiration thrombectomy of the CVG to LAD, stenting of the LAD, stenting of the SVG to LAD Severe ischemic cardiomyopathy Heart failure related to heart failure with reduced ejection fraction Plan Continue the current medical regimen Continue triple therapy Brilinta discontinued and patient started on Plavix due to hemoptysis Continue Lasix transitioned to oral Patient is cleared for discharge home by cardiology. Patient will follow-up in the office with Dr. Wiggins in one week. Nurse practitioner note has been reviewed by physician. Signing provider agrees with the documented findings, assessment, and plan of care. Objective - Vital Signs Vital signs: Vital Signs Temp 98.3 F 11/18/22 03:09 Pulse 80 11/18/22 08:31 Resp 20 11/18/22 03:09 BP 96/59 11/18/22 03:09 Pulse Ox 91 L 11/18/22 08:16 FiO2 21 11/17/22 15:02 Intake & Output 11/17/22 11/18/22 11/18/22 18:59 06:59 18:59 Intake Total 360 Output Total 600 Balance -240 Weight 100 kg Intake: Oral 360 Output: Urine 600 Other: Voiding Method Toilet Toilet ABP, PAP, CO, CI - Last Documented Arterial Blood Pressure 131/64 - Labs CBC & Chem 7: 11/14/22 05:26 11/18/22 06:56 Labs: Abnormal Lab Results - Last 24 Hours (Table) 11/17/22 11/18/22 Range/Units 20:48 06:56 Sodium 133 L (137-145) mmol/L Potassium 3.4 L (3.5-5.1) mmol/L Chloride 91 L (98-107) mmol/L Carbon Dioxide 33 H (22-30) mmol/L BUN 31 H (9-20) mg/dL Creatinine 1.27 H (0.66-1.25) mg/dL POC Glucose (mg/dL) 126 H (70-110) mg/dL Microbiology - Last 24 Hours (Table) 11/14/22 11:25 Blood Culture - Preliminary Blood No Growth after 72 hours
[2022-11-18] MEDS: ALPRAZolam 1 MG TAB PO PRN (10:50)
[2022-11-18 15:49] VITALS: BP 111/67; PULSE 70; RESP 18; TEMP 97.4
--- NOTE | 2022-11-18 21:55 | DS ---
DISCHARGE SUMMARY CHIEF COMPLAINT: Chest pain. HISTORY OF PRESENT ILLNESS AND PHYSICAL EXAMINATION: Details of this man's history and physical can be found in the initial workup. LABORATORY STUDIES: While he was in the hospital, he had laboratory studies including initial troponins which were elevated. COURSE IN THE HOSPITAL: He was taken to the cathead worker for cardiac cath, where several stents were placed with difficulty. Postoperatively, he had no cardiac issues. He had no significant arrhythmias, chest pain, etc. However, he seemed to have some diminution of cognitive function and delirium. He was slightly weakened and somewhat unsteady. He gradually improved and it was felt that he was able to be discharged on the . He will be at light activity at home. He will follow up in the office in a day or 2. FINAL DIAGNOSES: 1. Acute ST elevation myocardial infarction. 2. Longstanding history of coronary artery disease. 3. Chronic obstructive pulmonary disease. 4. Delirium. 5. L-spine arthritis. OPERATIONS: Cardiac cath with stenting. CONSULTATION: Cardiology. He is improved. MMODL / IJN: [id number] /
[2022-11-19] MEDS ORDERED: EZETIMIBE 10 MG TAB PO SCH (09:00)
== END 2022-11-18 16:38 | disposition home or self-care (01) | DRG 246 ==
LOC: EC 11:01 → 2SICU 11:22 → 3SCARD 11-14 08:20
PROVIDERS: ADMIT Family Medicine; ATTEND Family Medicine
PROC: B2111ZZ Fluoroscopy of Multiple Coronary Arteries using Low Osmolar Contrast (ICD-10-PCS; 2022-11-11)
PROC: B41G1ZZ Fluoroscopy of Left Lower Extremity Arteries using Low Osmolar Contrast (ICD-10-PCS; 2022-11-11)
PROC: 5A2204Z Restoration of Cardiac Rhythm, Single (ICD-10-PCS; 2022-11-11)
PROC: 027035Z Dilation of Coronary Artery, One Artery with Two Drug-eluting Intraluminal Devices, Percutaneous Approach (ICD-10-PCS; 2022-11-11)
PROC: 02C03ZZ Extirpation of Matter from Coronary Artery, One Artery, Percutaneous Approach (ICD-10-PCS; principal; 2022-11-11 11:22)
PROC: 4A023N7 Measurement of Cardiac Sampling and Pressure, Left Heart, Percutaneous Approach (ICD-10-PCS; 2022-11-11 11:22)
PROC: B2131ZZ Fluoroscopy of Multiple Coronary Artery Bypass Grafts using Low Osmolar Contrast (ICD-10-PCS; 2022-11-11 11:22)
DX: T82.855A Stenosis of coronary artery stent, initial encounter (principal); I21.09 ST elevation (STEMI) myocardial infarction involving other coronary artery of anterior wall; J96.90 Respiratory failure, unspecified, unspecified whether with hypoxia or hypercapnia; I49.01 Ventricular fibrillation; I50.23 Acute on chronic systolic (congestive) heart failure; F05 Delirium due to known physiological condition; I25.810 Atherosclerosis of coronary artery bypass graft(s) without angina pectoris; R04.2 Hemoptysis; I11.0 Hypertensive heart disease with heart failure; J44.9 Chronic obstructive pulmonary disease, unspecified; I07.1 Rheumatic tricuspid insufficiency; M47.816 Spondylosis without myelopathy or radiculopathy, lumbar region; I25.5 Ischemic cardiomyopathy; I25.10 Atherosclerotic heart disease of native coronary artery without angina pectoris; E78.5 Hyperlipidemia, unspecified; F17.210 Nicotine dependence, cigarettes, uncomplicated; G47.33 Obstructive sleep apnea (adult) (pediatric); G89.29 Other chronic pain; M21.372 Foot drop, left foot; I45.9 Conduction disorder, unspecified; M54.50 Low back pain, unspecified; W18.30XA Fall on same level, unspecified, initial encounter; Y92.230 Patient room in hospital as the place of occurrence of the external cause; Z82.49 Family history of ischemic heart disease and other diseases of the circulatory system; Z88.8 Allergy status to other drugs, medicaments and biological substances; Z91.040 Latex allergy status; Z79.899 Other long term (current) drug therapy; Z79.82 Long term (current) use of aspirin; Z79.51 Long term (current) use of inhaled steroids; Z95.1 Presence of aortocoronary bypass graft; I25.2 Old myocardial infarction
CPT/HCPCS: 71045; 71046; 80048; 80053; 81003; 84132; 84484; 85025; 85379; 85610; 85730; 87040; 92973; 93005; 93306; 93459; 94640; 94760; 96374; 96375; 99291

== ENCOUNTER 2023-01-10 00:31 | Inpatient (IN) | payer MEDICARE, OTHER ==
--- NOTE | 2023-01-10 00:57 | ED ---
General Adult HPI - General Chief complaint: Chest Pain Stated complaint: NSTEMI Time Seen by Provider: 01/10/23 00:40 Source: patient, EMS Mode of arrival: EMS - History of Present Illness Initial comments: This is a 67-year-old male with a past medical history including previous CABG, cardiac stenting as recently as 3 weeks ago, COPD, hypertension and CHF presents emergency Department as a transfer patient. The patient was initially seen at [facility] and was transferred here for further workup and evaluation for continued chest pain. The patient stated that his initial chest pain was on the right side of his chest and was on Monday. The patient stated continued pain as well as shortness of breath with exertion so he came to the emergency department. Workup at the outside facility was obtained that showed a steady troponin however the patient's blood pressure was mildly low so they started the patient on peripheral levophed intervention the patient for further workup and evaluation. On arrival, the patient stated that he had some mild shortness of breath denied any current chest pain. The patient was resting in bed comfortably. - Related Data Home Medications Medication Instructions Recorded Confirmed HYDROcodone/APAP 10-325MG [[place] 1 tab PO QID PRN 02/22/15 12/18/22 10-325] ALPRAZolam [Xanax] 2 mg PO TID PRN 02/23/15 12/18/22 rOPINIRole HCL [Requip] 0.25 mg PO HS 09/29/17 12/18/22 Fluticasone Nasal [place] [Flonase 1 spr EA NOSTRIL DAILY 06/11/18 12/18/22 Nasal [place]] DULoxetine HCL [Cymbalta] 60 mg PO DAILY 05/25/20 12/18/22 Budesonide-Formot 160-4.5 Mcg 2 puff INHALATION RT-BID 10/04/21 12/18/22 [Symbicort 160-4.5 Mcg Inhaler] Ergocalciferol [Vitamin D2 (1250 1,250 mcg PO Q14D 09/09/22 12/18/22 Mcg = [id number] Iu)] Evolocumab [Repatha Sureclick] 140 mg SQ Q14D 09/09/22 12/18/22 Diclofenac Sodium Gel [Voltaren 1 applic TOPICAL QID PRN 11/11/22 12/18/22 Gel] Potassium Chloride ER [K-Dur 20] 20 meq PO BID 12/18/22 12/18/22 Rosuvastatin [Crestor] 20 mg PO DAILY 12/18/22 12/18/22 amLODIPine [Norvasc] 2.5 mg PO DAILY 12/18/22 12/18/22 lisinopriL [Zestril] 2.5 mg PO DAILY 12/18/22 12/18/22 Previous Rx's Medication Instructions Recorded Isosorbide Mononitrate ER [Imdur] 30 mg PO DAILY #90 tab 10/05/21 Apixaban [Eliquis] 2.5 mg PO BID #60 tab 11/18/22 Aspirin 81 mg PO DAILY tab 11/18/22 Clopidogrel [Plavix] 75 mg PO HS #30 tab 11/18/22 Ezetimibe [Zetia] 10 mg PO DAILY #90 tab 11/18/22 Nitroglycerin Sl Tabs [Nitrostat] 0.4 mg SUBLINGUAL Q5M PRN #25 tab 11/18/22 Fenofibrate [Lofibra] 160 mg PO DAILY #30 tab 12/01/22 Furosemide [Lasix] 80 mg PO BID #180 tablet 12/01/22 Metoprolol Succinate (ER) [Toprol 50 mg PO DAILY #30 tab 12/01/22 XL] Allergies Allergy/AdvReac Type Severity Reaction Status Date / Time latex Allergy Swelling Verified 12/18/22 11:33 atorvastatin [From Lipitor] AdvReac JOINT PAIN Verified 12/18/22 11:33 Review of Systems ROS Statement: Those systems with pertinent positive or pertinent negative responses have been documented in the HPI. ROS Other: All systems not noted in ROS Statement are negative. Past Medical History Past Medical History: Coronary Artery Disease (CAD), Chest Pain / Angina, COPD, GERD/Reflux, Hyperlipidemia, Hypertension, Myocardial Infarction (LA), Osteoarthritis (OA), Sleep Apnea/CPAP/BIPAP Additional Past Medical History / Comment(s): hiatal hernia, chronic back pain, L foot drop, numbness/tingling bilateral legs, HUSAM without device, states stents x7 Last Myocardial Infarction Date:: 11/11/22 History of Any Multi-Drug Resistant Organisms: None Reported Past Surgical History: Back Surgery, Cholecystectomy, Coronary Bypass/CABG, Heart Catheterization With Stent, Orthopedic Surgery Additional Past Surgical History / Comment(s): Back surg x 2 with cage. L tennis elbow surg. HEART STENTS X7. Colonoscopy. Lasik eye surgery bilaterally. Emergency Cabg [facility] Past Anesthesia/Blood Transfusion Reactions: No Reported Reaction Additional Past Anesthesia/Blood Transfusion Reaction / Comment(s): Pt received blood during CABG without reaction. Date of Last Stent Placement:: Oct 2022 Past Psychological History: Anxiety, Depression, PTSD Smoking Status: Former smoker Past Alcohol Use History: None Reported Past Drug Use History: None Reported - Past Family History Father Family Medical History: Coronary Artery Disease (CAD), Deep Vein Thrombosis (DVT), GERD/Reflux, Hyperlipidemia Additional Family Medical History / Comment(s): Father of a LA in his 80's Mother Family Medical History: Coronary Artery Disease (CAD) Additional Family Medical History / Comment(s): Mother of a LA at the age of 76yrs. Sister(s) Family Medical History: Cancer Additional Family Medical History / Comment(s): Lung cancer. General Exam Limitations: no limitations General appearance: alert, in no apparent distress Head exam: Present: atraumatic, normocephalic, normal inspection Eye exam: Present: normal appearance, PERRL Pupils: Present: normal accommodation ENT exam: Present: normal exam, normal oropharynx, mucous membranes moist Neck exam: Present: normal inspection, full ROM Respiratory exam: Present: rhonchi (Mild rhonchi heard in the left lung field) Cardiovascular Exam: Present: regular rate, normal rhythm, normal heart sounds GI/Abdominal exam: Present: soft, normal bowel sounds Extremities exam: Present: normal inspection, full ROM Back exam: Present: normal inspection, full ROM Neurological exam: Present: alert, oriented X3, CN II-XII intact Psychiatric exam: Present: normal affect, normal mood Skin exam: Present: warm, dry Course Vital Signs 01/10/23 01/10/23 00:32 01:45 Temperature 98 F Pulse Rate 84 77 Respiratory 17 18 Rate Blood Pressure 104/67 94/51 O2 Sat by Pulse 97 94 L Oximetry EKG Findings - EKG Comments: EKG Findings:: An EKG was obtained and was interpreted by myself showing a rate of 82, NM interval 134, QRS duration of 98 and QTC of 430. This EKG showed a normal sinus rhythm with ST segment elevation noted in V2 and V3. Old EKG on 12/18/2022 was reviewed and the current EKG was significantly improved from that old EKG. Medical Decision Making - Medical Decision Making Was pt. sent in by a medical professional or institution (ROBERT Zelaya, INCLUSION SPECIAL EDUCATION TEACHER, urgent care, hospital, or long term...) When possible be specific @ -Yes, Clear ER Did you speak to anyone other than the patient for history (EMS, parent, family, police, friend...)? What history was obtained from this source @ -Yes, EMS Did you review nursing and triage notes (agree or disagree)? Why? @ -I reviewed and agree with nursing and triage notes Were old charts reviewed (outside hosp., previous admission, EMS record, old EKG, old radiological studies, urgent care reports/EKG's, long term records)? Report findings @ -No old charts were reviewed Differential Diagnosis (chest pain, altered mental status, abdominal pain women, abdominal pain men, vaginal bleeding, weakness, fever, dyspnea, syncope, headache, dizziness, GI bleed, back pain, seizure, CVA, palpatations, mental health)? @ -ACS, CHF exacerbation, pneumonia EKG interpreted by me (3pts min.). @ -As above X-rays interpreted by me (1pt min.). @ -Chest x-ray was obtained and was interpreted by myself showing evidence for congestive heart failure and right pleural effusion which is increased compared to yesterday. CT interpreted by me (1pt min.). @ -None done U/S interpreted by me (1pt. min.). @ -None done What testing was considered but not performed or refused? (CT, X-rays, U/S, la bs)? Why? @ -None What meds were considered but not given or refused? Why? @ -None Did you discuss the management of the patient with other professionals (professionals i.e. ROBERT Zelaya, INCLUSION SPECIAL EDUCATION TEACHER, lab, RT, psych nurse, social worker delinquency prevention, gas mask inspector, teacher, classification officer, pillowcase sewer)? Give summary @ -Yes, admitting physician Was smoking cessation discussed for >3mins.? @ -No Was critical care preformed (if so, how long)? @ -No Were there social determinants of health that impacted care today? How? (Homelessness, low income, unemployed, alcoholism, drug addiction, transportation, low edu. Level, literacy, decrease access to med. care, usp, rehab)? @ -No Was there de-escalation of care discussed even if they declined (Discuss DNR or withdrawal of care, Hospice)? DNR status @ -No What co-morbidities impacted this encounter? (DM, HTN, Smoking, COPD, CAD, Cancer, CVA, ARF, Chemo, Hep., AIDS, mental health diagnosis, sleep apnea, morbid obesity)? @ -Congestive heart failure, hypertension, previous CABG and previous cardiac stents Was patient admitted / discharged? Hospital course, mention meds given and route, prescriptions, significant lab abnormalities, going to OR and other pertinent info. @ -The patient was seen and evaluated emergency department. On evaluation, the patient was seen as a transfer patient where Levophed was initiated for the transfer as the patient had lower blood pressures. On arrival, the medication was stopped and the blood pressures remain stable. The patient himself stated that he denied of any worsening shortness of breath and was stable on evaluation with normal vital signs. Workup showed a CHF exacerbation and due to the patient's chest pain in the setting of congestive heart failure and significant cardiac history, the patient will be admitted for evaluation by cardiology. The patient will not receive Lasix at this time as the patient's blood pressure remained low were with a reading of 100 systolic. The patient was told of this plan and was agreeable. The patient was admitted to his primary care physician with cardiology on consult. Undiagnosed new problem with uncertain prognosis? @ -No Drug Therapy requiring intensive monitoring for toxicity (Heparin, Nitro, Ins ulin, Cardizem)? @ -No Were any procedures done? @ -No Diagnosis/symptom? @ -CHF exacerbation, chest pain Acute, or Chronic, or Acute on Chronic? @ -Acute on chronic Uncomplicated (without systemic symptoms) or Complicated (systemic symptoms)? @ -Complicated Side effects of treatment? @ -No Exacerbation, Progression, or Severe Exacerbation? @ -No Poses a threat to life or bodily function? How? (Chest pain, [place], LA, pneumonia, PE, COPD, DKA, ARF, appy, cholecystitis, CVA, Diverticulitis, Homicidal, Suicidal, threat to staff... and all critical care pts) @ -Yes, continued CHF exacerbation and shortness of breath as well as chest pain can lead to continued cardiac damage and possible . - Lab Data Result diagrams: 01/10/23 00:34 01/10/23 00:34 Lab Results 01/10/23 01/10/23 01/10/23 Range/Units 00:34 00:34 00:34 WBC 7.2 (3.8-10.6) k/uL RBC 3.31 L (4.30-5.90) m/uL Hgb 9.5 L (13.0-17.5) gm/dL Hct 29.1 L (39.0-53.0) % MCV 88.0 D (80.0-100.0) fL MCH 28.7 (25.0-35.0) pg MCHC 32.6 (31.0-37.0) g/dL RDW 14.5 (11.5-15.5) % Plt Count 147 L (150-450) k/uL MPV 10.1 Neutrophils % 64 % Lymphocytes % 28 % Monocytes % 6 % Eosinophils % 1 % Basophils % 1 % Neutrophils # 4.6 (1.3-7.7) k/uL Lymphocytes # 2.0 (1.0-4.8) k/uL Monocytes # 0.4 (0-1.0) k/uL Eosinophils # 0.1 (0-0.7) k/uL Basophils # 0.0 (0-0.2) k/uL PT 10.8 (9.0-12.0) sec INR 1.0 (<1.2) APTT 25.1 (22.0-30.0) sec Sodium 134 L (137-145) mmol/L Potassium 4.3 (3.5-5.1) mmol/L Chloride 99 (98-107) mmol/L Carbon Dioxide 24 (22-30) mmol/L Anion Gap 11 mmol/L BUN 24 H (9-20) mg/dL Creatinine 1.69 H (0.66-1.25) mg/dL Est GFR (CKD-EPI)AfAm 48 (>60 ml/min/1.73 sqM) Est GFR (CKD-EPI)NonAf 42 (>60 ml/min/1.73 sqM) Glucose 83 (74-99) mg/dL Calcium 8.9 (8.4-10.2) mg/dL Magnesium 2.1 (1.6-2.3) mg/dL Total Bilirubin 0.6 (0.2-1.3) mg/dL AST 33 (17-59) U/L ALT 18 (4-49) U/L Alkaline Phosphatase 64 (38-126) U/L Troponin I (0.000-0.034) ng/mL NT-Pro-B Natriuret Pep pg/mL Total Protein 7.4 (6.3-8.2) g/dL Albumin 4.3 (3.5-5.0) g/dL 01/10/23 01/10/23 Range/Units 00:34 00:34 WBC (3.8-10.6) k/uL RBC (4.30-5.90) m/uL Hgb (13.0-17.5) gm/dL Hct (39.0-53.0) % MCV (80.0-100.0) fL MCH (25.0-35.0) pg MCHC (31.0-37.0) g/dL RDW (11.5-15.5) % Plt Count (150-450) k/uL MPV Neutrophils % % Lymphocytes % % Monocytes % % Eosinophils % % Basophils % % Neutrophils # (1.3-7.7) k/uL Lymphocytes # (1.0-4.8) k/uL Monocytes # (0-1.0) k/uL Eosinophils # (0-0.7) k/uL Basophils # (0-0.2) k/uL PT (9.0-12.0) sec INR (<1.2) APTT (22.0-30.0) sec Sodium (137-145) mmol/L Potassium (3.5-5.1) mmol/L Chloride (98-107) mmol/L Carbon Dioxide (22-30) mmol/L Anion Gap mmol/L BUN (9-20) mg/dL Creatinine (0.66-1.25) mg/dL Est GFR (CKD-EPI)AfAm (>60 ml/min/1.73 sqM) Est GFR (CKD-EPI)NonAf (>60 ml/min/1.73 sqM) Glucose (74-99) mg/dL Calcium (8.4-10.2) mg/dL Magnesium (1.6-2.3) mg/dL Total Bilirubin (0.2-1.3) mg/dL AST (17-59) U/L ALT (4-49) U/L Alkaline Phosphatase (38-126) U/L Troponin I 0.193 H* (0.000-0.034) ng/mL NT-Pro-B Natriuret Pep 4960 pg/mL Total Protein (6.3-8.2) g/dL Albumin (3.5-5.0) g/dL Disposition Clinical Impression: CHF exacerbation, Chest pain Disposition: ADMITTED IP TO THIS HOSP Condition: Stable Is patient prescribed a controlled substance at d/c from ED?: No Referrals: Alexx Gee MD [Primary Care Provider] - 1-2 days Time of Disposition: 02:30 Decision to Admit Reason: Admit from EC Decision Date: 01/10/23 Decision Time: 02:30
[2023-01-10 01:07] LABS: Basophils % (A) 1 %; Eosinophils # (A) 0.1 k/uL (0-0.7); Eosinophils % (A) 1 %; HCT 29.1 % (39.0-53.0); HGB 9.5 gm/dL (13.0-17.5); Lymphocytes % (A) 28 %; MCH 28.7 pg (25.0-35.0); MCHC 32.6 g/dL (31.0-37.0); Mean Platelet Volume 10.1; Monocytes # (A) 0.4 k/uL (0-1.0); Monocytes % (A) 6 %; Neutrophils # (A) 4.6 k/uL (1.3-7.7); Neutrophils % (A) 64 %; Platelet Count 147 k/uL (150-450); RBC 3.31 m/uL (4.30-5.90); RDW 14.5 % (11.5-15.5); WBC 7.2 k/uL (3.8-10.6)
[2023-01-10 01:12] LABS: Partial Thromboplastin Time 25.1 sec (22.0-30.0); Prothrombin Time 10.8 sec (9.0-12.0)
[2023-01-10 01:13] LABS: Albumin 4.3 g/dL (3.5-5.0); Calcium 8.9 mg/dL (8.4-10.2); Magnesium 2.1 mg/dL (1.6-2.3); Potassium 4.3 mmol/L (3.5-5.1); Total Bilirubin 0.6 mg/dL (0.2-1.3); Total Protein 7.4 g/dL (6.3-8.2)
--- NOTE | 2023-01-10 01:20 | XR ---
EXAMINATION TYPE: XR chest 1V portable DATE OF EXAM: 01/10/2023 COMPARISON: Yesterday HISTORY: Short of breath TECHNIQUE: . FINDINGS: There is pulmonary interstitial edema. Heart is slightly enlarged. There are sternal wires. There is slight blunting right costophrenic angle. Bony thorax is intact. Trachea is midline. IMPRESSION: There is evidence for congestive heart failure and right pleural effusion which is increa sed compared to yesterday.
[2023-01-10] MEDS ORDERED: NALOXONE 0.4 MG/ML 1 ML VIAL IV PRN (02:58)
[2023-01-10] MEDS: HEPARIN SOD,PORK IN 0.45% NACL 25,000 UNIT in 0.45% NACL 1 250ML.BAG IV SCH (11:23)
[2023-01-10] MEDS: SODIUM CHLORIDE 0.9% 1,000 ML IV SCH (11:24)
[2023-01-10] MEDS: ASPIRIN 81 MG PO SCH (11:24)
[2023-01-10] MEDS: HYDROcodone/APAP 10-325MG 1 EACH TAB PO PRN ×2 (13:03→20:13)
[2023-01-10] MEDS: FUROSEMIDE 10 MG/ML 10 ML VIAL IV SCH ×2 (13:03→20:14)
--- NOTE | 2023-01-10 15:23 | CONS ---
CONSULTATION HISTORY OF PRESENT ILLNESS: Israel Smart is a 67-year-old gentleman with a known history of CAD, prior bypass surgery, and as recently as November 21, he presented with a [id number] FL and underwent a cardiac catheterization and PCI of a very complex SVG to LAD with mechanical and manual aspiration thrombectomy. This patient went to [facility] with 3 to 4 days of shortness of breath, but no clear-cut angina. His troponin was 0.2. Now, it is down to 0.193. He is complaining of shortness of breath, but no chest discomfort. EKG revealed mild precordial ST elevation, but compared to the previous EKG, these are not considered significant. He also had a chest x-ray, which reveals mild congestive heart failure and right pleural effusion. The patient's ejection fraction is in the 30% to 35% range. His creatinine is elevated. Clinical picture is that of more shortness of breath, probably related to ischemic cardiomyopathy. I am not sure if there is any significant additional myocardial injury. We will see how he does, and if he continues to have symptoms of chest pain, we will consider coronary angiography. Otherwise, we will optimize medical therapy. The patient is more comfortable now than when he arrived. PAST MEDICAL HISTORY: 1. CAD with a prior bypass surgery, and late October, he had stenting of SVG to LAD and within the unga LAD as well. 2. Ischemic cardiomyopathy. 3. The patient was started on Eliquis because of high thrombus burden. 4. Hyperlipidemia. 5. History of cholecystectomy and back surgeries and some orthopedic surgery in the past. MEDICATIONS AT HOME: Include: 1. Crestor 20 mg daily. 2. Plavix 75 mg daily. 3. Eliquis 2.5 mg b.i.d. 4. Zestril 2.5 mg daily. 5. Metoprolol succinate 50 mg daily. 6. Lasix 80 mg b.i.d. 7. Zetia 10 mg daily. PHYSICAL EXAMINATION: VITAL SIGNS: Blood pressure is about 100/60, pulse rate is about 70. HEENT: Unremarkable. Fundus was not examined by me. NECK: JVD is elevated. HEART: Reveals S1 and S2 with a short systolic murmur. LUNGS: Reveal fine basal rales bilaterally. ABDOMEN: Soft and nontender. EXTREMITIES: Lower extremities reveal diminished pulses. CENTRAL NERVOUS SYSTEM: Normal. IMPRESSION: 1. Exacerbation of congestive heart failure. 2. Ischemic cardiomyopathy. 3. History of prior bypass surgery and recent percutaneous coronary intervention of a vein graft to the left anterior descending and unga left anterior descending. 4. Hypertension. 5. Hyperlipidemia. RECOMMENDATIONS: I am recommending that we will resume his medications, put him on a combination of aspirin and Plavix at this time. We will discontinue Eliquis, place him on a low-dose IV heparin. He took his Eliquis yesterday evening. If he has any chest discomfort, we will consider cardiac catheterization, and I will cautiously diurese him. Discussed my thoughts in detail with the patient. Thank you very much for the consult. REYNALDO / CALLI: [id number] /
[2023-01-10] MEDS: METOPROLOL TARTRATE 12.5 MG TAB PO SCH ×2 (16:19→20:14)
[2023-01-10] MEDS: ALPRAZolam 1 MG TAB PO PRN (16:19)
[2023-01-10] MEDS: ATORVASTATIN 40 MG TAB PO SCH (20:13)
[2023-01-10] MEDS: CLOPIDOGREL 75 MG TAB PO SCH (20:14)
[2023-01-11] MEDS: ALPRAZolam 1 MG TAB PO PRN ×3 (00:18→20:55)
[2023-01-11] MEDS: HYDROcodone/APAP 10-325MG 1 EACH TAB PO PRN ×2 (04:45→13:04)
[2023-01-11 07:34] LABS: Basophils % (A) 1 %; Eosinophils # (A) 0.1 k/uL (0-0.7); Eosinophils % (A) 1 %; HCT 25.6 % (39.0-53.0); HGB 8.3 gm/dL (13.0-17.5); Lymphocytes # (A) 1.8 k/uL (1.0-4.8); Lymphocytes % (A) 34 %; MCH 28.4 pg (25.0-35.0); MCHC 32.2 g/dL (31.0-37.0); MCV 88.3 fL (80.0-100.0); Mean Platelet Volume 10.6; Monocytes # (A) 0.4 k/uL (0-1.0); Monocytes % (A) 7 %; Neutrophils % (A) 56 %; Platelet Count 116 k/uL (150-450); RDW 14.6 % (11.5-15.5); WBC 5.4 k/uL (3.8-10.6)
[2023-01-11] MEDS: SODIUM CHLORIDE 0.9% 1,000 ML IV SCH (08:40)
[2023-01-11] MEDS: ASPIRIN 81 MG PO SCH (08:48)
[2023-01-11] MEDS: METOPROLOL TARTRATE 12.5 MG TAB PO SCH ×3 (08:48→20:56)
[2023-01-11] MEDS: FUROSEMIDE 10 MG/ML 10 ML VIAL IV SCH ×2 (08:48→20:55)
[2023-01-11] MEDS: HEPARIN SOD,PORK IN 0.45% NACL 25,000 UNIT in 0.45% NACL 1 250ML.BAG IV SCH (08:49)
--- NOTE | 2023-01-11 11:57 | PN ---
PROGRESS NOTE SUBJECTIVE: Mr. Simmons had episode of shortness of breath, heart failure exacerbation with elevated troponin. He is more comfortable today, has no chest pain, breathing is easier. OBJECTIVE: VITALS: Stable. HEART: S1, S2 heard normally, short systolic murmur. LUNGS: Clear. ABDOMEN: Unchanged. LOWER EXTREMITIES: Unchanged. PLAN: To continue current medication. Discontinue IV heparin, place him on subcu heparin, increase activity, and possible discharge tomorrow and see Dr. Wiggins as an outpatient. MMODL / IJN: [id number] /
[2023-01-11 12:07] LABS: Calcium 8.7 mg/dL (8.4-10.2); Potassium 3.7 mmol/L (3.5-5.1)
[2023-01-11] MEDS: FERROUS SULFATE 325 MG TAB PO SCH (12:20)
--- NOTE | 2023-01-11 15:29 | CDI ---
Documentation Clarification Form Date: 01/12/2023 3:19:41 PM From: Sheryl Renee Phone: [phone] Admit Date: 01/10/2023 2:58:00 AM Patient Name: Israel Simmons Visit Number: [id number] Discharge Date: ATTENTION: The Clinical Documentation Specialists (CDI) and [facility] Coding Staff appreciate your assistance in clarifying documentation. Please respond to the clarification below the line at the bottom and electronically sign. The CDI & [facility] Coding staff will review the response and follow-up if needed. Please note: Queries are made part of the Legal Health Record. If you have any questions, please contact the author of this message via ITS. Dr. Denisha Edwards Your patient has troponin level(s) of: 0.193 & 0.187, 01/10. Please clarify if there is an additional diagnosis and/or clinical significance related to this value. Patient history/risk factors: 67 y/o male presents to the ED as a transfer from [place] for continued chest pain sob on exertion. 3 weeks ago cardiac stenting and previous CABG. Medical History: HTN, HLD, CABG and Recent stents. Cardiology consult, 01/10. Clinical indicators: CXR, 01/10: Sinus rhythm. Possible left Atrial enlargement. Right axis deviation. Moderate Twave abnormality, consider anterolateral ischemia. Moderate T wave abnormality, consider inferior ischemia Troponins, 01/10: 0.193; 0.187. P-BNP, 01/10: 4960 Cardiology note, 01/11: Mr. Simmons had episode of shortness of breath, heart failure exacerbation with elevated troponin. Treatment: 01/10 01/11 Heparin IV 12 units kg/ hr; 01/10 Lasix IV Q12H; 01/10 Lopressor PO TID; Is there an additional diagnosis and/or clinical significance related to the above lab result/information: [ ] NSTEMI type 1 [ ] Type 2 NJ due to Heart Failure [ ] Non-ischemic myocardial injury [ ] No additional diagnosis/Not clinically significant [ ] Other, please specify [ ] Unable to determine (Template Last Reviewed: July 2021) MTDD
--- NOTE | 2023-01-11 15:50 | CDI ---
Documentation Clarification Form Date: 01/11/2023 3:34:43 PM From: Sheryl Renee Phone: [phone] Admit Date: 01/10/2023 2:58:00 AM Patient Name: Israel Simmons Visit Number: [id number] Discharge Date: ATTENTION: The Clinical Documentation Specialists (CDI) and [facility] Coding Staff appreciate your assistance in clarifying documentation. Please respond to the clarification below the line at the bottom and electronically sign. The CDI & [facility] Coding staff will review the response and follow-up if needed. Please note: Queries are made part of the Legal Health Record. If you have any questions, please contact the author of this message via ITS. Dr. Denisha Edwards Your patient has the documented diagnosis of unspecified CHF 01/10, Cardiology consult. Additional information regarding the type, acuity of CHF is requested. Patient history/risk factors: 67 y/o male presents to the ED as a transfer from [place] for continued chest pain sob on exertion. 3 weeks ago cardiac stenting and previous CABG. Medical History: HTN, HLD, CABG and Recent stents. Cardiology consult, 01/10. Clinical Indicators: VS/Pulse OX, 01/10: B/P 104/67; HR 84; Temp 98 F Oral; RR 17; SpO2 97% ra BNP, 01/10: 4960 Echocardiogram Results, 12/19: Left Ventricular EF 30-35%, Mild mitral regurgitation, mild aortic regurgitation. Chest X Ray, 01/10: There is evidence for congestive heart failure and right pleural effusion which is increased compared to yesterday. Treatment: 01/10 Lasix 60mg IV Q12HR, 01/10 Lopressor PO TID. In your professional opinion, can you please clarify the acuity and type of CHF if known? [ ] Acute on Chronic Systolic Heart Failure (reduced EF) [ ] Other, please specify [ ] Unable to determine (Template Last Revised: November 2020) Answered in 01/11 Heart failure exacerbation. 01/12 progress note systolic heart failure. by Dr. Jesse Edwards MTDD
[2023-01-11] MEDS: ATORVASTATIN 40 MG TAB PO SCH (20:56)
[2023-01-11] MEDS: HEPARIN SODIUM,PORCINE/PF 5,000 UNIT/0.5 ML SYRINGE SQ SCH (20:56)
[2023-01-11] MEDS: CLOPIDOGREL 75 MG TAB PO SCH (20:56)
[2023-01-12] MEDS: HYDROcodone/APAP 10-325MG 1 EACH TAB PO PRN (04:15)
[2023-01-12] MEDS: SODIUM CHLORIDE 0.9% 1,000 ML IV SCH (05:17)
[2023-01-12] MEDS: FUROSEMIDE 10 MG/ML 10 ML VIAL IV SCH (08:49)
[2023-01-12] MEDS: HEPARIN SODIUM,PORCINE/PF 5,000 UNIT/0.5 ML SYRINGE SQ SCH (08:49)
[2023-01-12] MEDS: ASPIRIN 81 MG PO SCH (08:49)
[2023-01-12] MEDS: METOPROLOL TARTRATE 12.5 MG TAB PO SCH (08:49)
[2023-01-12 08:55] VITALS: TEMP 98.4
[2023-01-12 10:13] LABS: HCT 27.5 % (39.0-53.0); HGB 8.9 gm/dL (13.0-17.5); Hypochromasia Slight; MCH 29.1 pg (25.0-35.0); MCHC 32.5 g/dL (31.0-37.0); MCV 89.5 fL (80.0-100.0); Mean Platelet Volume 10.7; Platelet Count 132 k/uL (150-450); RBC 3.07 m/uL (4.30-5.90); RDW 14.7 % (11.5-15.5); WBC 5.6 k/uL (3.8-10.6)
[2023-01-12 10:33] LABS: Calcium 9.1 mg/dL (8.4-10.2); Potassium 3.8 mmol/L (3.5-5.1)
[2023-01-12] MEDS: FERROUS SULFATE 325 MG TAB PO SCH (12:10)
[2023-01-12 12:14] VITALS: BP 87/50; PULSE 73; RESP 17
[2023-01-12] MEDS ORDERED: APIXABAN 2.5 MG TABLET PO SCH (12:30)
--- NOTE | 2023-01-12 12:51 | P.PN ---
Subjective Progress Note Date: 01/12/23 HPI: Patient is a 67-year-old male with significant past medical history of CAD, CABG, cardiac stents 7 with most recent being in October 2022, ischemic cardiomyopathy, hyperlipidemia, Eliquis use for high thrombus burden who was admitted for worsening shortness of breath. He sees Dr. Wiggins in the office. His troponins were elevated at 0.193, 0.187. He was initially started on a heparin drip which was discontinued yesterday 01/11/23. BNP was 4960. Echo 12/19/22 with EF 3035 percent, mild mitral regurgitation, mild aortic regurgitation. 01/12/23: Patient sitting up at bedside, states that his breathing is better, improved when he has his oxygen on. He has been ambulatory in the hallway and states that he is ready to go home. He denies any chest pain. He does confirm that he was on aspirin, Plavix, Eliquis 2.5mg at home. Creatinine improved to 1.62. PHYSICAL EXAMINATION: no apparent distress at the time of my examination. HEENT: Head is atraumatic, normocephalic. Pupils are equal, round. Sclerae anicteric. Conjunctivae are clear. Mucous membranes of the mouth are moist. Neck is supple. There is no jugular venous distention. No carotid bruit is heard. CHEST EXAMINATION: Lungs are clear to auscultation. No chest wall tenderness is noted on palpation or with deep breathing. HEART EXAMINATION: Heart regular rate and rhythm. S1, S2 heard. Short systolic murmur. No gallops or rub. ABDOMEN: Soft, nontender. Bowel sounds are heard. No organomegaly noted. EXTREMITIES: 2+ peripheral pulses, trace peripheral edema BLE and no calf tenderness noted. NEUROLOGIC EXAMINATION: Patient is awake, alert and oriented x3. RESULTS: Hemoglobin 8.9 Creatinine 1.62 Echo results pending IMPRESSION AND PLAN: [Systolic heart failure Ischemic cardiomyopathy CAD status post stenting, recently October 2022 Hypertension Hyperlipidemia Shortness of breath ] PLAN: ECHO was completed, report is PENDING. Discussed avoiding salt in foods. Will continue home medications with aspirin, plavix, and Eliquis 2.5mg BID. Will change Lasix to 60mg PO daily, continue at discharge. OK to discharge home from cardiology standpoint. Follow up in clinic in [address] Wiggins. I am dictating on behalf of Dr. tK Smart's history/physical and assessment/plan. Objective - Vital Signs Vital signs: Vital Signs Temp 98.4 F 01/12/23 08:55 Pulse 73 01/12/23 12:14 Resp 17 01/12/23 12:14 BP 87/50 01/12/23 12:14 Pulse Ox 98 01/12/23 12:14 FiO2 Intake & Output 01/11/23 01/12/23 01/12/23 18:59 06:59 18:59 Intake Total 488.393 118 Output Total 700 900 Balance 488.393 -700 782 Weight 104.4 kg Intake: Intake, IV Titration 130.393 Amount Heparin Sod,Pork in 0.45% 130.393 NaCl 25,000 unit In 0.45 % NaCl 1 250ml.bag @ 12 UNITS/KG/HR 9.48 mls/hr IV .Q24H ELIANA Rx#: [id number] Oral 358 118 Output: Urine 700 900 Other: Voiding Method Urinal Urinal Urinal # Voids 2 1 - Labs CBC & Chem 7: 01/12/23 09:18 01/12/23 09:18 Labs: Abnormal Lab Results - Last 24 Hours (Table) 01/12/23 01/12/23 Range/Units 09:18 09:18 RBC 3.07 L (4.30-5.90) m/uL Hgb 8.9 L (13.0-17.5) gm/dL Hct 27.5 L (39.0-53.0) % Plt Count 132 L (150-450) k/uL Sodium 135 L (137-145) mmol/L BUN 26 H (9-20) mg/dL Creatinine 1.62 H (0.66-1.25) mg/dL
--- NOTE | 2023-01-12 21:48 | DS ---
DISCHARGE SUMMARY CHIEF COMPLAINT: Difficulty breathing. HISTORY OF PRESENT ILLNESS AND PHYSICAL EXAM: Details of this man's history and physical can be found in the initial workup. LABORATORY STUDIES: While he was in the hospital, he had laboratory studies, details of which can be found in the laboratory section of his chart. COURSE IN THE HOSPITAL: After admission, he was placed on bedrest and started on intravenous fluids and diuretic management. His breathing improved as his congestive heart failure was treated. He was seen and followed by Cardiology, and it was felt that he was able to be discharged on the . He will be seen in the office in several days. FINAL DIAGNOSES: 1. Acute congestive heart failure. 2. Chronic congestive heart failure. 3. Coronary artery disease. 4. Atherosclerotic cardiomyopathy. 5. Chronic obstructive pulmonary disease. 6. Hyperlipidemia. OPERATIONS: None. CONSULTATION: Cardiology. CONDITION: He is improved. REYNALDO / CALLI: [id number] /
--- NOTE | 2023-01-13 00:18 | PN ---
PROGRESS NOTE DATE OF SERVICE: 01/11/2023 CHIEF COMPLAINT: Acute congestive heart failure. HISTORY OF PRESENT ILLNESS: This gentleman is feeling better. He is not having any chest pain or lightheadedness. He has diuresed well. PHYSICAL EXAMINATION: VITAL SIGNS: Blood pressure is low at 98/59, pulse is 75, respirations are 30, and he is afebrile. GENERAL: Appeared to be slightly overweight and less short of breath than yesterday. CHEST: Quite clear. There are only occasional rales in the bases. CARDIAC: Normal. ABDOMEN: Protuberant, soft. IMPRESSION: 1. Acute congestive heart failure. 2. Chronic congestive heart failure. 3. Coronary artery disease. 4. Chronic obstructive pulmonary disease. 5. Hyperlipidemia. PLAN: Continue with diuresis for another day and then he will probably be able to be discharged. MMCECILL / NATHALYN: [id number] /
--- NOTE | 2023-01-13 00:51 | HP ---
HISTORY AND PHYSICAL CHIEF COMPLAINT: Shortness of breath. HISTORY OF PRESENT ILLNESS: Another recent admission for this 67-year-old white male who recently had myocardial infarction. He has a long history of coronary artery disease and has had CABG in the past. He has been doing fairly well at home and then he called on the day of admission, he was having trouble breathing. He was to have been sent straight to [facility], but apparently went to [place] and then was transferred here. He was in acute congestive heart failure. He was not having any pain. REVIEW OF SYSTEMS: Otherwise unremarkable. PHYSICAL EXAMINATION: VITAL SIGNS: Blood pressure is 142/90 with a pulse of 93 and regular, respirations were 44. GENERAL: He appeared to be acutely dyspneic. SKIN: Pale. HEENT: Head, ears, eyes, nose, mouth and throat were normal. NECK: Veins cannot be assessed. CHEST: Demonstrated decreased breath sounds with scattered rales throughout. CARDIAC: Demonstrated what sounded like sinus rhythm with an S4. ABDOMEN: Slightly protuberant, soft, and nontender without any visceromegaly or masses. Bowel sounds present. EXTREMITIES: Normal. NEUROLOGIC: Intact. DIAGNOSES: He is admitted to the hospital with diagnoses: 1. Acute congestive heart failure. 2. Coronary artery disease. 3. Recent myocardial infarction. 4. Atherosclerotic cardiomyopathy. 5. Chronic obstructive pulmonary disease. 6. Hyperlipidemia. PLAN: 1. Bedrest. 2. IV fluids. 3. Serial EKGs and enzymes. 4. Consult Cardiology. 5. Diuresis. MMODL / IJN: [id number] /
[2023-01-13] MEDS ORDERED: FUROSEMIDE 20 MG TAB PO SCH (09:00)
--- NOTE | 2023-01-13 10:33 | CA ---
Transthoracic Echo Report Name: Israel Simmons Age: 67 Gender: M : 1955 Exam Date: 01/12/2023 07:08 Exam Location: [place] Echo Ht (in): 70 Wt (lb): 230 Ordering Physician: Alexx Gee MD Attending/Referring Phys: Gerard LAYNE Tray Filler Schuyler Allen, RDCS Procedure CPT: Indications: chf, hx stemi, outpt scheduled monday Cardiac Hx: CABG x 20 yrs Technical Quality: Fair Contrast 1: Total Dose (mL): Contrast 2: Total Dose (mL): MEASUREMENTS (Male / Female) Normal Values 2D ECHO LV Diastolic Diameter PLAX 5.8 cm 4.2 - 5.9 / 3.9 - 5.3 cm LV Systolic Diameter PLAX 4.8 cm IVS Diastolic Thickness 1.1 cm 0.6 - 1.0 / 0.6 - 0.9 cm LVPW Diastolic Thickness 0.8 cm 0.6 - 1.0 / 0.6 - 0.9 cm LV Relative Wall Thickness 0.3 LV Diastolic Volume MOD 4C 71.7 cm??? LV Systolic Volume MOD 4C 50.5 cm??? LV Ejection Fraction MOD 4C 29.6 % LV Diastolic Length 4C 7.6 cm LV Systolic Length 4C 7.2 cm DOPPLER AV Peak Velocity 99.8 cm/s AV Peak Gradient 4.0 mmHg AI Peak Velocity 258.4 cm/s AI Peak Gradient 26.7 mmHg AI Pressure Half Time 312.8 ms MV Area PHT 6.6 cm??? Mitral E Point Velocity 95.1 cm/s Mitral A Point Velocity 35.5 cm/s Mitral E to A Ratio 2.7 MV Deceleration Time 114.3 ms TR Peak Velocity 317.9 cm/s TR Peak Gradient 40.4 mmHg FINDINGS Left Ventricle Left ventricular ejection fraction is estimated at 30-35 %. Severe diastolic dysfunction. Left ventricular wall thickness at upper limits of normal. Left ventricular cavity size at the upper limits of normal. Right Ventricle Right Atrium Left Atrium Mitral Valve Mitral valve thickened. Moderate mitral regurgitation. Aortic Valve Trileaflet aortic valve. Thickened aortic valve without stenosis. Moderate aortic regurgitation. Tricuspid Valve Moderate tricuspid regurgitation. Pulmonic Valve Pericardium Aorta CONCLUSIONS Limited echocardiogram The EF between 30-35% with mid ventricle and apical akinesia Moderate mitral regurgitation Moderate aortic insufficiency Previewed by: Dr. Frank Wiggins MD (Electronically Signed) Final Date: 13 January 2023 10:32
--- NOTE | 2023-01-16 11:32 | CDI ---
Documentation Clarification Form Date: 01/12/2023 3:19:00 PM From: Sheryl Renee Phone: [phone] Admit Date: 01/10/2023 2:58:00 AM Patient Name: Israel Simmons Visit Number: [id number] Discharge Date: 01/12/2023 4:13:00 PM ATTENTION: The Clinical Documentation Specialists (CDI) and [facility] Coding Staff appreciate your assistance in clarifying documentation. Please respond to the clarification below the line at the bottom and electronically sign. The CDI & [facility] Coding staff will review the response and follow-up if needed. Please note: Queries are made part of the Legal Health Record. If you have any questions, please contact the author of this message via ITS. Dr. Denisha Edwards Your patient has troponin level(s) of: 0.193 & 0.187, 01/10. Please clarify if there is an additional diagnosis and/or clinical significance related to this value. Patient history/risk factors: 67 y/o male presents to the ED as a transfer from [place] for continued chest pain sob on exertion. 3 weeks ago cardiac stenting and previous CABG. Medical History: HTN, HLD, CABG and Recent stents Clinical indicators: CXR, 01/10: Sinus rhythm. Possible left Atrial enlargement. Right axis deviation. Moderate Twave abnormality, consider anterolateral ischemia. Moderate T wave abnormality, consider inferior ischemia Troponins, 01/10: 0.193; 0.187. P-BNP, 01/10: [id number] Cardiology note, 01/11: Mr. Simmons had episode of shortness of breath, heart failure exacerbation with elevated troponin. Treatment: 01/10 01/11 Heparin IV 12 units kg/ hr; 01/10 Lasix IV Q12H; 01/10 Lopressor PO TID; Is there an additional diagnosis and/or clinical significance related to the above lab result/information: [ ] NSTEMI type 1 [ ] Type 2 MD due to Heart Failure [ ] Non-ischemic myocardial injury [ ] No additional diagnosis/Not clinically significant [ ] Other, please specify [ ] Unable to determine (Template Last Reviewed: July 2021) Type 2 MD due to Heart Failure MTDD
== END 2023-01-12 16:13 | disposition home health service (06) | DRG 280 ==
LOC: EC 00:31 → 3SCARD 02:58
PROVIDERS: ADMIT Family Medicine; ATTEND Family Medicine
DX: I11.0 Hypertensive heart disease with heart failure (principal); I50.23 Acute on chronic systolic (congestive) heart failure; I21.A1 Myocardial infarction type 2; I25.10 Atherosclerotic heart disease of native coronary artery without angina pectoris; Z28.311 Partially vaccinated for COVID-19; I42.8 Other cardiomyopathies; J44.9 Chronic obstructive pulmonary disease, unspecified; E78.5 Hyperlipidemia, unspecified; G47.33 Obstructive sleep apnea (adult) (pediatric); Z88.8 Allergy status to other drugs, medicaments and biological substances; Z91.040 Latex allergy status; G89.29 Other chronic pain; M54.9 Dorsalgia, unspecified; K21.9 Gastro-esophageal reflux disease without esophagitis; K44.9 Diaphragmatic hernia without obstruction or gangrene; M21.372 Foot drop, left foot; F43.10 Post-traumatic stress disorder, unspecified; F41.9 Anxiety disorder, unspecified; F32.A Depression, unspecified; I25.2 Old myocardial infarction; I25.5 Ischemic cardiomyopathy; Z95.1 Presence of aortocoronary bypass graft; Z79.01 Long term (current) use of anticoagulants; Z79.02 Long term (current) use of antithrombotics/antiplatelets; Z79.51 Long term (current) use of inhaled steroids; Z79.82 Long term (current) use of aspirin; Z79.899 Other long term (current) drug therapy; Z82.49 Family history of ischemic heart disease and other diseases of the circulatory system; Z95.5 Presence of coronary angioplasty implant and graft
CPT/HCPCS: 36415; 71045; 80048; 80053; 83735; 83880; 84484; 85025; 85027; 85610; 85730; 93005; 93308; 96374; 99285

== ENCOUNTER 2023-01-15 19:57 | Inpatient (IN) | payer MEDICARE, OTHER ==
--- NOTE | 2023-01-15 20:16 | ED ---
Weakness HPI - General Chief complaint: Weakness Stated complaint: Hypotension Time Seen by Provider: 01/15/23 20:15 Source: patient, EMS Mode of arrival: EMS - History of Present Illness Initial comments: 67-year-old male presents emergency room and as a transfer from [facility]. Had a syncopal episode at home and fell onto his left side. He was taken into room hospital where he was found to have hypotension. He was recently discharged from our facility. He has a history of congestive heart failure was placed on 80 mg of Lasix daily. He has been taking his medications as directed. [place] completed laboratory studies and found that the patient had a significant PARISH likely due to the Lasix. They gave him a liter of lactated Ringer's however he remained persistently hypotensive and therefore they transferred him on some peripheral Levophed. Patient sustained an abrasion to his left arm but denies any pain has full normal range of motion. No headaches or visual changes. No chest pain. Denies any shortness of breath. Has not urinated today. Rectal exam was performed which was negative. Chest x- ray demonstrates congestive heart failure. He was transferred to our facility for further evaluation - Related Data Home Medications Medication Instructions Recorded Confirmed HYDROcodone/APAP 10-325MG [[place] 1 tab PO QID PRN 02/22/15 01/15/23 10-325] ALPRAZolam [Xanax] 2 mg PO TID PRN 02/23/15 01/15/23 rOPINIRole HCL [Requip] 0.25 mg PO HS 09/29/17 01/15/23 Fluticasone Nasal [place] [Flonase 1 spr EA NOSTRIL DAILY 06/11/18 01/15/23 Nasal [place]] Budesonide-Formot 160-4.5 Mcg 2 puff INHALATION RT-BID 10/04/21 01/15/23 [Symbicort 160-4.5 Mcg Inhaler] Ergocalciferol [Vitamin D2 (1250 1,250 mcg PO QMONTHLY 09/09/22 01/15/23 Mcg = 47580 Iu)] Diclofenac Sodium Gel [Voltaren 1 applic TOPICAL QID PRN 11/11/22 01/15/23 Gel] Potassium Chloride ER [K-Dur 20] 20 meq PO BID 12/18/22 01/15/23 Rosuvastatin [Crestor] 20 mg PO HS 12/18/22 01/15/23 lisinopriL [Zestril] 2.5 mg PO DAILY 12/18/22 01/15/23 Previous Rx's Medication Instructions Recorded Isosorbide Mononitrate ER [Imdur] 30 mg PO DAILY #90 tab 10/05/21 Apixaban [Eliquis] 2.5 mg PO BID #60 tab 11/18/22 Aspirin 81 mg PO DAILY tab 11/18/22 Clopidogrel [Plavix] 75 mg PO HS #30 tab 11/18/22 Ezetimibe [Zetia] 10 mg PO DAILY #90 tab 11/18/22 Nitroglycerin Sl Tabs [Nitrostat] 0.4 mg SUBLINGUAL Q5M PRN #25 tab 11/18/22 Fenofibrate [Lofibra] 160 mg PO DAILY #30 tab 12/01/22 Metoprolol Succinate (ER) [Toprol 50 mg PO DAILY #30 tab 12/01/22 XL] Cephalexin [Keflex] 500 mg PO QID #30 cap 01/23/23 Furosemide [Lasix] 40 mg PO DAILY #180 tablet 01/23/23 Allergies Allergy/AdvReac Type Severity Reaction Status Date / Time latex Allergy Swelling Verified 01/15/23 20:25 atorvastatin [From Lipitor] AdvReac JOINT PAIN Verified 01/15/23 20:25 Review of Systems ROS Statement: Those systems with pertinent positive or pertinent negative responses have been documented in the HPI. ROS Other: All systems not noted in ROS Statement are negative. Past Medical History Past Medical History: Coronary Artery Disease (CAD), Chest Pain / Angina, COPD, GERD/Reflux, Hyperlipidemia, Hypertension, Myocardial Infarction (MO), Osteoarth ritis (OA), Sleep Apnea/CPAP/BIPAP Additional Past Medical History / Comment(s): hiatal hernia, chronic back pain, L foot drop, numbness/tingling bilateral legs, HUSAM without device, states stents x7 Last Myocardial Infarction Date:: 11/11/22 History of Any Multi-Drug Resistant Organisms: None Reported Past Surgical History: Back Surgery, Cholecystectomy, Coronary Bypass/CABG, Heart Catheterization With Stent, Orthopedic Surgery Additional Past Surgical History / Comment(s): Back surg x 2 with cage. L tennis elbow surg. HEART STENTS X7. Colonoscopy. Lasik eye surgery bilaterally. Emergency Cabg [facility] [place] Past Anesthesia/Blood Transfusion Reactions: No Reported Reaction Additional Past Anesthesia/Blood Transfusion Reaction / Comment(s): Pt received blood during CABG without reaction. Date of Last Stent Placement:: Oct 2022 Past Psychological History: Anxiety, Depression, PTSD Smoking Status: Former smoker Past Alcohol Use History: None Reported Past Drug Use History: None Reported - Past Family History Father Family Medical History: Coronary Artery Disease (CAD), Deep Vein Thrombosis (DVT), GERD/Reflux, Hyperlipidemia Additional Family Medical History / Comment(s): Father of a MO in his 80's Mother Family Medical History: Coronary Artery Disease (CAD) Additional Family Medical History / Comment(s): Mother of a MO at the age of 76yrs. Sister(s) Family Medical History: Cancer Additional Family Medical History / Comment(s): Lung cancer. General Exam General appearance: alert, in no apparent distress Head exam: Present: atraumatic, normocephalic, normal inspection Eye exam: Present: normal appearance, PERRL, EOMI. Absent: scleral icterus, conjunctival injection, periorbital swelling ENT exam: Present: normal exam, mucous membranes moist Neck exam: Present: normal inspection. Absent: tenderness, meningismus, lymphadenopathy Respiratory exam: Present: normal lung sounds bilaterally. Absent: respiratory distress, wheezes, rales, rhonchi, stridor Cardiovascular Exam: Present: regular rate, normal rhythm, normal heart sounds. Absent: systolic murmur, diastolic murmur, rubs, gallop, clicks GI/Abdominal exam: Present: soft, normal bowel sounds. Absent: distended, tenderness, guarding, rebound, rigid Extremities exam: Present: normal inspection, full ROM, normal capillary refill. Absent: tenderness, pedal edema, joint swelling, calf tenderness Back exam: Present: normal inspection Neurological exam: Present: alert, oriented X3, CN II-XII intact Psychiatric exam: Present: normal affect, normal mood Skin exam: Present: warm, dry, intact, normal color. Absent: rash Course Vital Signs 01/15/23 01/15/23 01/15/23 19:59 21:43 22:43 Temperature 97.9 F Pulse Rate 65 71 71 Respiratory 18 18 20 Rate Blood Pressure 88/46 88/61 93/76 O2 Sat by Pulse 95 97 96 Oximetry 01/15/23 01/16/23 01/16/23 22:55 00:20 01:04 Temperature Pulse Rate 68 65 63 Respiratory 20 16 22 Rate Blood Pressure 102/53 82/51 92/50 O2 Sat by Pulse 96 95 97 Oximetry 01/16/23 01/16/23 01/16/23 01:27 01:44 02:10 Temperature Pulse Rate 57 L 63 64 Respiratory 18 22 16 Rate Blood Pressure 71/38 80/46 87/40 O2 Sat by Pulse 96 95 96 Oximetry 01/16/23 01/16/23 01/16/23 02:20 02:30 03:05 Temperature Pulse Rate 65 63 69 Respiratory 19 20 15 Rate Blood Pressure 81/50 89/42 98/55 O2 Sat by Pulse 96 95 94 L Oximetry 01/16/23 01/16/23 01/16/23 03:45 04:03 05:06 Temperature Pulse Rate 71 70 71 Respiratory 16 19 15 Rate Blood Pressure 108/57 105/58 110/53 O2 Sat by Pulse 95 94 L 94 L Oximetry 01/16/23 01/16/23 01/16/23 05:54 06:09 06:25 Temperature Pulse Rate 70 73 71 Respiratory 15 17 15 Rate Blood Pressure 97/45 100/52 107/54 O2 Sat by Pulse 94 L 94 L 93 L Oximetry 01/16/23 01/16/23 01/16/23 07:42 08:57 10:13 Temperature Pulse Rate 71 80 Respiratory 16 16 18 Rate Blood Pressure 75/27 99/62 98/55 O2 Sat by Pulse 93 L 99 91 L Oximetry 01/16/23 01/16/23 01/16/23 10:49 12:03 12:29 Temperature Pulse Rate 73 77 76 Respiratory 18 18 16 Rate Blood Pressure 100/46 97/45 O2 Sat by Pulse 97 95 Oximetry 01/16/23 01/16/23 01/16/23 12:32 12:38 13:06 Temperature Pulse Rate 76 76 Respiratory 18 17 Rate Blood Pressure 104/55 O2 Sat by Pulse 99 95 Oximetry 01/16/23 01/16/23 01/16/23 14:10 15:01 15:34 Temperature Pulse Rate 78 84 79 Respiratory 18 18 15 Rate Blood Pressure 105/50 131/73 111/60 O2 Sat by Pulse 91 L 94 L 96 Oximetry 01/16/23 01/16/23 01/16/23 16:06 17:15 18:11 Temperature Pulse Rate 80 86 80 Respiratory 17 17 18 Rate Blood Pressure 108/53 103/51 114/64 O2 Sat by Pulse 95 94 L 93 L Oximetry 01/16/23 01/16/23 01/16/23 19:49 20:02 20:19 Temperature Pulse Rate 87 88 94 Respiratory 18 18 18 Rate Blood Pressure 122/73 O2 Sat by Pulse 95 Oximetry 01/16/23 01/16/23 01/16/23 21:02 22:06 22:37 Temperature Pulse Rate 86 89 Respiratory 15 18 Rate Blood Pressure 119/78 97/48 96/52 O2 Sat by Pulse 91 L 93 L Oximetry 01/16/23 01/16/23 01/17/23 23:14 23:45 00:53 Temperature Pulse Rate 87 90 86 Respiratory 18 18 24 Rate Blood Pressure 94/47 92/55 133/77 O2 Sat by Pulse 91 L 91 L 93 L Oximetry 01/17/23 01/17/23 01/17/23 01:11 02:47 03:47 Temperature Pulse Rate 86 84 78 Respiratory 23 24 24 Rate Blood Pressure 118/70 108/64 117/70 O2 Sat by Pulse 92 L 94 L 92 L Oximetry 01/17/23 01/17/23 01/17/23 04:43 05:25 05:42 Temperature Pulse Rate 78 76 80 Respiratory 22 20 26 H Rate Blood Pressure 106/67 80/40 96/68 O2 Sat by Pulse 94 L 93 L 92 L Oximetry 01/17/23 01/17/23 01/17/23 06:19 06:35 07:40 Temperature Pulse Rate 79 78 77 Respiratory 21 24 Rate Blood Pressure 93/49 98/51 O2 Sat by Pulse 95 92 L Oximetry 01/17/23 01/17/23 01/17/23 07:41 08:03 11:52 Temperature Pulse Rate 81 84 Respiratory Rate Blood Pressure O2 Sat by Pulse 99 Oximetry 01/17/23 01/17/23 01/17/23 12:13 13:03 13:32 Temperature Pulse Rate 86 82 85 Respiratory 18 19 Rate Blood Pressure 102/47 111/60 O2 Sat by Pulse 97 96 Oximetry 01/17/23 01/17/23 01/17/23 14:00 15:38 16:17 Temperature 98.2 F Pulse Rate 79 80 91 Respiratory 20 18 20 Rate Blood Pressure 106/60 105/60 103/63 O2 Sat by Pulse 96 94 L 94 L Oximetry 01/17/23 01/17/23 01/17/23 17:43 18:29 22:12 Temperature Pulse Rate 79 86 84 Respiratory 18 20 Rate Blood Pressure 79/30 106/79 O2 Sat by Pulse 94 L Oximetry 01/17/23 01/17/23 01/18/23 22:28 23:23 01:00 Temperature 97.8 F 97.3 F L Pulse Rate 86 86 83 Respiratory 18 20 Rate Blood Pressure 95/50 108/92 O2 Sat by Pulse 96 96 Oximetry 01/18/23 01:08 Temperature Pulse Rate 86 Respiratory 17 Rate Blood Pressure 113/52 O2 Sat by Pulse 96 Oximetry EKG Findings - EKG Comments: EKG Findings:: EKG demonstrates sinus rhythm with a rate of 68. DC interval 140. QRS 107. QTC 453. No acute ST segment elevations. Biphasic T-wave in lead 3 Procedures - Central Line Placement Right Femoral Consent Obtained: written consent Patient Placed on Monitor/Pulse Ox: Yes MD Prep: mask, gown, gloves Central Line Prep: Chlorhexidine scrub Local Anesthesia Used: Lidocaine 1% Amount of Anesthesia Used (mls): 5 Ultrasound Used for Placement: Yes Central Line Lumen Inserted: triple Bloods Obtained for Lab: Yes Central Line Position: good blood return, all ports aspirated, flushed, capped, sutured in place with nylon Dressing Applied: Tegaderm Patient Tolerated Procedure: well, no complications Medical Decision Making - Medical Decision Making Was pt. sent in by a medical professional or institution (, PA, OPERATIONS MANAGER/COORDINATOR, urgent care, hospital, or jail...) When possible be specific @ -[facility] Did you speak to anyone other than the patient for history (EMS, parent, family, police, friend...)? What history was obtained from this source @ -EMS, dr. cruz from [place] Did you review nursing and triage notes (agree or disagree)? Why? @ -I reviewed and agree with nursing and triage notes Were old charts reviewed (outside hosp., previous admission, EMS record, old EKG, old radiological studies, urgent care reports/EKG's, jail records)? Report findings @ -Records from [facility] as well as recent hospitalization reviewed Differential Diagnosis (chest pain, altered mental status, abdominal pain women, abdominal pain men, vaginal bleeding, weakness, fever, dyspnea, syncope, headache, dizziness, GI bleed, back pain, seizure, CVA, palpatations, mental health, musculoskeletal)? @ -COPD exacerbation, pulmonary fibrosis, chf exacerbation, pe, cardiogenic shock EKG interpreted by me (3pts min.). @ -yes X-rays interpreted by me (1pt min.). @ -None done CT interpreted by me (1pt min.). @ -None done U/S interpreted by me (1pt. min.). @ -None done What testing was considered but not performed or refused? (CT, X-rays, U/S, labs)? Why? @ -None What meds were considered but not given or refused? Why? @ -None Did you discuss the management of the patient with other professionals (professionals i.e. , PA, OPERATIONS MANAGER/COORDINATOR, lab, RT, psych nurse, marriage and family social worker, top lift trimmer, teacher, staff nuclear weapons officer, mental health case manager)? Give summary @ -Admitting physician Was smoking cessation discussed for >3mins.? @ -No Was critical care preformed (if so, how long)? @ -Yes, 35 minutes Were there social determinants of health that impacted care today? How? (Homelessness, low income, unemployed, alcoholism, drug addiction, transportation, low edu. Level, literacy, decrease access to med. care, senior living, rehab)? @ -No Was there de-escalation of care discussed even if they declined (Discuss DNR or withdrawal of care, Hospice)? DNR status @ -Yes What co-morbidities impacted this encounter? (DM, HTN, Smoking, COPD, CAD, Cancer, CVA, ARF, Chemo, Hep., AIDS, mental health diagnosis, sleep apnea, morbid obesity)? @ -chf Was patient admitted / discharged? Hospital course, mention meds given and route, prescriptions, significant lab abnormalities, going to OR and other pertinent info. @ -Upon arrival patient was placed in room 5. History and physical exam is performed. I did review his packet from outside facility. He remains hypotensive and on peripheral pressors. Did discuss placing a central line for which the patient was agreeable to one in his groin. Right femoral central line was placed without difficulty. Quad strength Levophed was ordered. He was given an additional 500 mL of normal saline however continues to have hypotension therefore Levophed was started. Patient will be admitted for nephrology and cardiology consultation. Spoke with Dr. Merritt and Dr. Gee for the admission. Undiagnosed new problem with uncertain prognosis? @ -yes Drug Therapy requiring intensive monitoring for toxicity (Heparin, Nitro, Insulin, Cardizem)? @ -No Were any procedures done? @ -Yes, central line placement Diagnosis/symptom? @ -acute/chronic resp insuff, hypotension, parish/ckd, chf exacerbation Acute, or Chronic, or Acute on Chronic? @ -acute on chronic Uncomplicated (without systemic symptoms) or Complicated (systemic symptoms)? @ -complicated Side effects of treatment? @ -No Exacerbation, Progression, or Severe Exacerbation? @ -yes Poses a threat to life or bodily function? How? (Chest pain, USA, MO, pneumonia, PE, COPD, DKA, ARF, appy, cholecystitis, CVA, Diverticulitis, Homicidal, Suicidal, threat to staff... and all critical care pts) @ -yes - Lab Data Result diagrams: 01/20/23 07:46 01/23/23 11:52 Lab Results 01/15/23 01/15/23 01/15/23 Range/Units 21:11 21:11 21:11 WBC 7.3 (3.8-10.6) k/uL RBC 2.99 L (4.30-5.90) m/uL Hgb 8.5 L (13.0-17.5) gm/dL Hct 26.6 L (39.0-53.0) % MCV 88.7 (80.0-100.0) fL MCH 28.4 (25.0-35.0) pg MCHC 32.1 (31.0-37.0) g/dL RDW 15.8 H (11.5-15.5) % Plt Count 160 (150-450) k/uL MPV 11.5 Neutrophils % 55 % Lymphocytes % 32 % Monocytes % 8 % Eosinophils % 1 % Basophils % 0 % Neutrophils # 4.0 (1.3-7.7) k/uL Lymphocytes # 2.3 (1.0-4.8) k/uL Monocytes # 0.6 (0-1.0) k/uL Eosinophils # 0.1 (0-0.7) k/uL Basophils # 0.0 (0-0.2) k/uL Sodium 131 L (137-145) mmol/L Potassium 4.9 (3.5-5.1) mmol/L Chloride 98 (98-107) mmol/L Carbon Dioxide 20 L (22-30) mmol/L Anion Gap 13 mmol/L BUN 40 H (9-20) mg/dL Creatinine 3.96 H (0.66-1.25) mg/dL Est GFR (CKD-EPI)AfAm 17 (>60 ml/min/1.73 sqM) Est GFR (CKD-EPI)NonAf 15 (>60 ml/min/1.73 sqM) Glucose 89 (74-99) mg/dL Calcium 8.7 (8.4-10.2) mg/dL Total Bilirubin 0.6 (0.2-1.3) mg/dL AST 26 (17-59) U/L ALT 13 (4-49) U/L Alkaline Phosphatase 55 (38-126) U/L Troponin I 1.060 H* (0.000-0.034) ng/mL NT-Pro-B Natriuret Pep pg/mL Total Protein 6.5 (6.3-8.2) g/dL Albumin 3.8 (3.5-5.0) g/dL 01/15/23 Range/Units 21:11 WBC (3.8-10.6) k/uL RBC (4.30-5.90) m/uL Hgb (13.0-17.5) gm/dL Hct (39.0-53.0) % MCV (80.0-100.0) fL MCH (25.0-35.0) pg MCHC (31.0-37.0) g/dL RDW (11.5-15.5) % Plt Count (150-450) k/uL MPV Neutrophils % % Lymphocytes % % Monocytes % % Eosinophils % % Basophils % % Neutrophils # (1.3-7.7) k/uL Lymphocytes # (1.0-4.8) k/uL Monocytes # (0-1.0) k/uL Eosinophils # (0-0.7) k/uL Basophils # (0-0.2) k/uL Sodium (137-145) mmol/L Potassium (3.5-5.1) mmol/L Chloride (98-107) mmol/L Carbon Dioxide (22-30) mmol/L Anion Gap mmol/L BUN (9-20) mg/dL Creatinine (0.66-1.25) mg/dL Est GFR (CKD-EPI)AfAm (>60 ml/min/1.73 sqM) Est GFR (CKD-EPI)NonAf (>60 ml/min/1.73 sqM) Glucose (74-99) mg/dL Calcium (8.4-10.2) mg/dL Total Bilirubin (0.2-1.3) mg/dL AST (17-59) U/L ALT (4-49) U/L Alkaline Phosphatase (38-126) U/L Troponin I (0.000-0.034) ng/mL NT-Pro-B Natriuret Pep 88615 pg/mL Total Protein (6.3-8.2) g/dL Albumin (3.5-5.0) g/dL Critical Care Time Critical Care Time: Yes Critical Care Time: 35 minutes Disposition Clinical Impression: CHF exacerbation, Hypotension, Syncope, PARISH (acute kidney injury) Disposition: ADMITTED IP TO [facility] Condition: Serious Is patient prescribed a controlled substance at d/c from ED?: No Time of Disposition: 22:33 Decision to Admit Reason: Admit from EC Decision Date: 01/15/23 Decision Time: 22:33
[2023-01-15] MEDS ORDERED: SODIUM CHLORIDE 0.9% 500 ML 500 ML IV ONE (20:40)
[2023-01-15] MEDS: NOREPINEPHRINE 32 MG in SODIUM CHLORIDE 0.9% 218 ML IV SCH (21:12)
[2023-01-15 21:33] LABS: Basophils % (A) 0 %; Eosinophils # (A) 0.1 k/uL (0-0.7); Eosinophils % (A) 1 %; HCT 26.6 % (39.0-53.0); HGB 8.5 gm/dL (13.0-17.5); Lymphocytes # (A) 2.3 k/uL (1.0-4.8); Lymphocytes % (A) 32 %; MCH 28.4 pg (25.0-35.0); MCHC 32.1 g/dL (31.0-37.0); MCV 88.7 fL (80.0-100.0); Mean Platelet Volume 11.5; Monocytes # (A) 0.6 k/uL (0-1.0); Monocytes % (A) 8 %; Neutrophils % (A) 55 %; Platelet Count 160 k/uL (150-450); RBC 2.99 m/uL (4.30-5.90); RDW 15.8 % (11.5-15.5); WBC 7.3 k/uL (3.8-10.6)
[2023-01-15] MEDS ORDERED: HYDROmorphone 1 MG/ML 1 ML SYRINGE IVP STA (21:33)
[2023-01-15 22:06] LABS: Albumin 3.8 g/dL (3.5-5.0); Calcium 8.7 mg/dL (8.4-10.2); Potassium 4.9 mmol/L (3.5-5.1); Total Bilirubin 0.6 mg/dL (0.2-1.3); Total Protein 6.5 g/dL (6.3-8.2)
[2023-01-15] MEDS ORDERED: NALOXONE 0.4 MG/ML 1 ML VIAL IV PRN (22:33)
[2023-01-16] MEDS: ATORVASTATIN 40 MG TAB PO SCH ×2 (00:22→20:17)
[2023-01-16] MEDS: APIXABAN 2.5 MG TABLET PO SCH ×3 (00:22→20:17)
[2023-01-16] MEDS: CLOPIDOGREL 75 MG TAB PO SCH ×2 (00:22→20:17)
[2023-01-16] MEDS: HYDROcodone/APAP 10-325MG 1 EACH TAB PO PRN ×5 (00:22→20:17)
[2023-01-16] MEDS: ALPRAZolam 1 MG TAB PO PRN (00:23)
[2023-01-16 01:45] LABS: INR 1.1 (<1.2); Partial Thromboplastin Time 24.5 sec (22.0-30.0); Prothrombin Time 11.1 sec (9.0-12.0)
[2023-01-16] MEDS: SODIUM CHLORIDE 0.9% 1,000 ML IV SCH ×2 (01:46→23:19)
[2023-01-16 06:23] LABS: Basophils % (A) 0 %; Eosinophils # (A) 0.2 k/uL (0-0.7); Eosinophils % (A) 2 %; HCT 27.9 % (39.0-53.0); HGB 8.9 gm/dL (13.0-17.5); Lymphocytes # (A) 3.3 k/uL (1.0-4.8); Lymphocytes % (A) 31 %; MCH 28.3 pg (25.0-35.0); MCV 88.3 fL (80.0-100.0); Monocytes # (A) 0.7 k/uL (0-1.0); Monocytes % (A) 7 %; Neutrophils # (A) 5.9 k/uL (1.3-7.7); Neutrophils % (A) 56 %; Platelet Count 232 k/uL (150-450); RBC 3.16 m/uL (4.30-5.90); RDW 15.9 % (11.5-15.5); WBC 10.5 k/uL (3.8-10.6)
[2023-01-16 07:46] LABS: Calcium 8.8 mg/dL (8.4-10.2); Potassium 4.3 mmol/L (3.5-5.1)
[2023-01-16] MEDS: EZETIMIBE 10 MG TAB PO SCH (08:35)
[2023-01-16] MEDS: ASPIRIN 81 MG PO SCH (08:36)
[2023-01-16] MEDS: SYMBICORT 160-4.5 MCG INHALER INHALATION SCH ×2 (08:42→19:49)
[2023-01-16] MEDS ORDERED: FENOFIBRATE 160 MG TAB PO SCH (09:00)
--- NOTE | 2023-01-16 10:12 | P.CNPUL ---
History of Present Illness Consult date: 01/16/23 Requesting physician: Alexx Gee Reason for consult: other Chief complaint: Hypotension, shortness of breath. History of present illness: Pulmonary/critical care consult dated 01/16/2023. 67-year-old male seen in the emergency room, room 5. The patient has been in the hospital now for the third time be getting from the first of the year. Hospitalized in October, had a PCI done with stent placements, he was hospitalized twice before in December. Currently, he's on 4 L of oxygen. Is getting saline at 50 mL an hour. He is getting norepinephrine at about 26 mcg/m. He came into the emergency room on January 15 complaining of weakness and a low blood pressure. He was transferred in from [facility]. The patient had been taking Lasix, from his prior admission, and apparently was found to have acute kidney injury as well. Currently, he is resting comfortably in the intensive care unit. His primary care physician is Dr. Luis Gee. White count 10.5, hemoglobin 8.9, hematocrit 27.9, within normal platelet count. Coagulation studies were normal. Sodium 134, potassium 4.3, chlorides 98, CO2 24, BUN 42, and creatinine 3.72. His anion gap is normal. His troponin was 1.060, and his N-terminal proBNP was 13,400. Review of Systems REVIEW OF SYSTEMS: CONSTITUTIONAL: Weakness. NEUROLOGIC: [ Negative.] HEENT: [ Negative.] CARDIAC: Hypotension. PULMONARY: Shortness of breath. GI: [Negative.] : [Negative.] RHEUMATOLOGIC: [ Negative.] IMMUNOLOGIC: [ Negative.] ENDOCRINE: [Negative. ] DERMATOLOGIC: [Negative.] Past Medical History Past Medical History: Coronary Artery Disease (CAD), Chest Pain / Angina, COPD, GERD/Reflux, Hyperlipidemia, Hypertension, Myocardial Infarction ([place]), Oste oarthritis (OA), Sleep Apnea/CPAP/BIPAP Additional Past Medical History / Comment(s): hiatal hernia, chronic back pain, L foot drop, numbness/tingling bilateral legs, HUSAM without device, states stents x7 Last Myocardial Infarction Date:: 11/11/22 History of Any Multi-Drug Resistant Organisms: None Reported Past Surgical History: Back Surgery, Cholecystectomy, Coronary Bypass/CABG, Heart Catheterization With Stent, Orthopedic Surgery Additional Past Surgical History / Comment(s): Back surg x 2 with cage. L tennis elbow surg. HEART STENTS X7. Colonoscopy. Lasik eye surgery bilaterally. Emergency Cabg [facility], [place] Past Anesthesia/Blood Transfusion Reactions: No Reported Reaction Additional Past Anesthesia/Blood Transfusion Reaction / Comment(s): Pt received blood during CABG without reaction. Date of Last Stent Placement:: Oct 2022 Past Psychological History: Anxiety, Depression, PTSD Smoking Status: Former smoker Past Alcohol Use History: None Reported Past Drug Use History: None Reported - Past Family History Father Family Medical History: Coronary Artery Disease (CAD), Deep Vein Thrombosis (DVT), GERD/Reflux, Hyperlipidemia Additional Family Medical History / Comment(s): Father of a AL in his 80's Mother Family Medical History: Coronary Artery Disease (CAD) Additional Family Medical History / Comment(s): Mother of a AL at the age of 76yrs. Sister(s) Family Medical History: Cancer Additional Family Medical History / Comment(s): Lung cancer. Medications and Allergies Home Medications Medication Instructions Recorded Confirmed Type HYDROcodone/APAP 10-325MG [[place] 1 tab PO QID PRN 02/22/15 01/15/23 History 10-325] ALPRAZolam [Xanax] 2 mg PO TID PRN 02/23/15 01/15/23 History rOPINIRole HCL [Requip] 0.25 mg PO HS 09/29/17 01/15/23 History Fluticasone Nasal [place] [Flonase 1 spr EA NOSTRIL DAILY 06/11/18 01/15/23 History Nasal [place]] Budesonide-Formot 160-4.5 Mcg 2 puff INHALATION RT-BID 10/04/21 01/15/23 History [Symbicort 160-4.5 Mcg Inhaler] Isosorbide Mononitrate ER [Imdur] 30 mg PO DAILY #90 tab 10/05/21 01/15/23 Rx Ergocalciferol [Vitamin D2 (1250 1,250 mcg PO QMONTHLY 09/09/22 01/15/23 History Mcg = 44719 Iu)] Diclofenac Sodium Gel [Voltaren 1 applic TOPICAL QID PRN 11/11/22 01/15/23 History Gel] Apixaban [Eliquis] 2.5 mg PO BID #60 tab 11/18/22 01/15/23 Rx Aspirin 81 mg PO DAILY tab 11/18/22 01/15/23 Rx Clopidogrel [Plavix] 75 mg PO HS #30 tab 11/18/22 01/15/23 Rx Ezetimibe [Zetia] 10 mg PO DAILY #90 tab 11/18/22 01/15/23 Rx Nitroglycerin Sl Tabs [Nitrostat] 0.4 mg SUBLINGUAL Q5M PRN #25 tab 11/18/22 01/15/23 Rx Fenofibrate [Lofibra] 160 mg PO DAILY #30 tab 12/01/22 01/15/23 Rx Furosemide [Lasix] 80 mg PO BID #180 tablet 12/01/22 01/15/23 Rx Metoprolol Succinate (ER) [Toprol 50 mg PO DAILY #30 tab 12/01/22 01/15/23 Rx XL] Potassium Chloride ER [K-Dur 20] 20 meq PO BID 12/18/22 01/15/23 History Rosuvastatin [Crestor] 20 mg PO HS 12/18/22 01/15/23 History amLODIPine [Norvasc] 2.5 mg PO DAILY 12/18/22 01/15/23 History lisinopriL [Zestril] 2.5 mg PO DAILY 12/18/22 01/15/23 History Allergies Allergy/AdvReac Type Severity Reaction Status Date / Time latex Allergy Swelling Verified 01/15/23 20:25 atorvastatin [From Lipitor] AdvReac JOINT PAIN Verified 01/15/23 20:25 Physical Exam Osteopathic Statement: *. No significant issues noted on an osteopathic structural exam other than those noted in the History and Physical/Consult. Vitals: Vital Signs Temp Pulse Resp BP Pulse Ox 01/16/23 08:57 80 16 99/62 99 01/16/23 07:42 71 16 75/27 93 L 01/16/23 06:25 71 15 107/54 93 L 01/16/23 06:09 73 17 100/52 94 L 01/16/23 05:54 70 15 97/45 94 L 01/16/23 05:06 71 15 110/53 94 L 01/16/23 04:03 70 19 105/58 94 L 01/16/23 03:45 71 16 108/57 95 01/16/23 03:05 69 15 98/55 94 L 01/16/23 02:30 63 20 89/42 95 01/16/23 02:20 65 19 81/50 96 01/16/23 02:10 64 16 87/40 96 01/16/23 01:44 63 22 80/46 95 01/16/23 01:27 57 L 18 71/38 96 01/16/23 01:04 63 22 92/50 97 01/16/23 00:20 65 16 82/51 95 01/15/23 22:55 68 20 102/53 96 01/15/23 22:43 71 20 93/76 96 01/15/23 21:43 71 18 88/61 97 01/15/23 19:59 97.9 F 65 18 88/46 95 Intake and Output 01/15/23 01/16/23 01/16/23 22:59 06:59 14:59 Intake Total 22.535 51.401 Output Total 475 Balance 22.535 -423.599 Intake: Intake, IV Titration 22.535 51.401 Amount Norepinephrine 32 mg In 22.535 51.401 Sodium Chloride 0.9% 218 ml @ 0.03 MCG/KG/MIN 1.34 mls/hr IV .Q24H [facility] Rx#: [id number] Output: Urine 475 Other: Weight 95.254 kg No acute distress, oriented 3. Currently on 4 L of oxygen. No audible wheezing, use of accessory muscles. HEENT examination is grossly unremarkable. Neck supple. Full range of motion. No adenopathy thyromegaly or neck vein distention. Cardiovascular examination reveals regular rhythm rate. S1-S2 normal. No S3 or S4. No discernible murmur noted. Heart rate 80 bpm. Lungs reveal scattered bilateral rhonchi. No wheezes. No crackles. Saturations 99% on 4 L. Abdomen soft bowel sounds are heard. No masses or tenderness. Extremities are intact. No cyanosis or clubbing. Trace edema. Skin is without rash or lesion. Neurologic examination is brief but nonfocal. Results - Laboratory Findings CBC and BMP: 01/16/23 06:06 01/16/23 06:06 PT/INR, D-dimer PT 11.1 sec (9.0-12.0) 01/15/23 23:18 INR 1.1 (<1.2) 01/15/23 23:18 Abnormal lab findings: Abnormal Labs 01/15/23 01/15/23 01/15/23 21:11 21:11 21:11 RBC 2.99 L Hgb 8.5 L Hct 26.6 L RDW 15.8 H Sodium 131 L Carbon Dioxide 20 L BUN 40 H Creatinine 3.96 H Glucose Troponin I 1.060 H* 01/16/23 01/16/23 06:06 06:06 RBC 3.16 L Hgb 8.9 L Hct 27.9 L RDW 15.9 H Sodium 134 L Carbon Dioxide BUN 42 H Creatinine 3.72 H Glucose 125 H Troponin I Assessment and Plan Assessment: Weakness, hypotension, and acute kidney injury, possibly related to Lasix administration. Recent admission to the hospital for congestive heart failure. October admission to the hospital for PCI/stent placement. History of CAD, S/P myocardial infarction. History of CABG. History of COPD. Gastroesophageal reflux disease. History of hyperlipidemia. History of hypertension. History of sleep apnea syndrome. Osteoarthritis. Prior history of tobacco use. History/depression, PTSD. Plan: Plan dated 01/16/2023. The patient is going to be transferred to the intensive care unit. There is no bed available as yet. Clinically, he appears stable. Labs, x-rays, and medications are reviewed. We will continue to follow make recommendations along the way. We will also add some updrafts to his regimen. Prognosis is guarded. Time with Patient: Greater than 30
--- NOTE | 2023-01-16 10:39 | P.NPCON ---
History of Present Illness - Reason for Consult acute renal failure, chronic renal failure - History of Present Illness Reason for consult patient: Acute kidney injury on chronic kidney disease History of present illness: Patient is a 67-year-old male seen in renal consultation for acute kidney injury on chronic kidney disease. Patient states he was recently discharged from this facility and at that time was placed on Lasix. Patient states he's been taking his medications as prescribed. Patient states he's been feeling weak and dizzy and had a syncopal episode. Patient states he lost consciousness when he got up from his bed to walk towards the door. He admits to feeling hot but denies checking his temperature at home. Denies nausea vomiting or diarrhea. No history of diabetes. He does have history of CABG as well as multiple cardiac stents. Most recent stents were placed last month. Denies family history of renal disease. Denies use of nonsteroidals. He does not follow with nephrology outpatient. Patient has chronic kidney disease stage IIIa with baseline creatinine in the range of 1.1-1.3. Creatinine this admission was 3.96 and is 3.72 today. Patient has received 1 L of normal saline bolus and is currently maintained on normal saline at 50 mL an hour. Patient has history of systolic CHF with ejection fraction of 30-35% and moderate mitral, tricuspid and aortic regurgitation. Denies edema. Denies hematuria. Currently on Levophed. Vital signs are stable. On vasopressor support. General: No acute distress. HEENT: Head exam is unremarkable. LUNGS: No audible rhonchi or wheezes. HEART: Rate and Rhythm are regular. ABDOMEN: Soft, no distention. Nontender. EXTREMITITES: No edema. Past Medical History Past Medical History: Coronary Artery Disease (CAD), Chest Pain / Angina, COPD, GERD/Reflux, Hyperlipidemia, Hypertension, Myocardial Infarction ([place]), Osteoarthritis (OA), Sleep Apnea/CPAP/BIPAP Additional Past Medical History / Comment(s): hiatal hernia, chronic back pain, L foot drop, numbness/tingling bilateral legs, HUSAM without device, states stents x7 Last Myocardial Infarction Date:: 11/11/22 History of Any Multi-Drug Resistant Organisms: None Reported Past Surgical History: Back Surgery, Cholecystectomy, Coronary Bypass/CABG, Heart Catheterization With Stent, Orthopedic Surgery Additional Past Surgical History / Comment(s): Back surg x 2 with cage. L tennis elbow surg. HEART STENTS X7. Colonoscopy. Lasik eye surgery bilaterally. Emergency Cabg [facility] Past Anesthesia/Blood Transfusion Reactions: No Reported Reaction Additional Past Anesthesia/Blood Transfusion Reaction / Comment(s): Pt received blood during CABG without reaction. Date of Last Stent Placement:: Oct 2022 Past Psychological History: Anxiety, Depression, PTSD Smoking Status: Former smoker Past Alcohol Use History: None Reported Past Drug Use History: None Reported - Past Family History Father Family Medical History: Coronary Artery Disease (CAD), Deep Vein Thrombosis (DVT), GERD/Reflux, Hyperlipidemia Additional Family Medical History / Comment(s): Father of a [place] in his 80's Mother Family Medical History: Coronary Artery Disease (CAD) Additional Family Medical History / Comment(s): Mother of a IL at the age of 76yrs. Sister(s) Family Medical History: Cancer Additional Family Medical History / Comment(s): Lung cancer. Medications and Allergies Home Medications Medication Instructions Recorded Confirmed Type HYDROcodone/APAP 10-325MG [[place] 1 tab PO QID PRN 02/22/15 01/15/23 History 10-325] ALPRAZolam [Xanax] 2 mg PO TID PRN 02/23/15 01/15/23 History rOPINIRole HCL [Requip] 0.25 mg PO HS 09/29/17 01/15/23 History Fluticasone Nasal [place] [Flonase 1 spr EA NOSTRIL DAILY 06/11/18 01/15/23 History Nasal [place]] Budesonide-Formot 160-4.5 Mcg 2 puff INHALATION RT-BID 10/04/21 01/15/23 History [Symbicort 160-4.5 Mcg Inhaler] Isosorbide Mononitrate ER [Imdur] 30 mg PO DAILY #90 tab 10/05/21 01/15/23 Rx Ergocalciferol [Vitamin D2 (1250 1,250 mcg PO QMONTHLY 09/09/22 01/15/23 History Mcg = 77075 Iu)] Diclofenac Sodium Gel [Voltaren 1 applic TOPICAL QID PRN 11/11/22 01/15/23 History Gel] Apixaban [Eliquis] 2.5 mg PO BID #60 tab 11/18/22 01/15/23 Rx Aspirin 81 mg PO DAILY tab 11/18/22 01/15/23 Rx Clopidogrel [Plavix] 75 mg PO HS #30 tab 11/18/22 01/15/23 Rx Ezetimibe [Zetia] 10 mg PO DAILY #90 tab 11/18/22 01/15/23 Rx Nitroglycerin Sl Tabs [Nitrostat] 0.4 mg SUBLINGUAL Q5M PRN #25 tab 11/18/22 01/15/23 Rx Fenofibrate [Lofibra] 160 mg PO DAILY #30 tab 12/01/22 01/15/23 Rx Furosemide [Lasix] 80 mg PO BID #180 tablet 12/01/22 01/15/23 Rx Metoprolol Succinate (ER) [Toprol 50 mg PO DAILY #30 tab 12/01/22 01/15/23 Rx XL] Potassium Chloride ER [K-Dur 20] 20 meq PO BID 12/18/22 01/15/23 History Rosuvastatin [Crestor] 20 mg PO HS 12/18/22 01/15/23 History amLODIPine [Norvasc] 2.5 mg PO DAILY 12/18/22 01/15/23 History lisinopriL [Zestril] 2.5 mg PO DAILY 12/18/22 01/15/23 History Allergies Allergy/AdvReac Type Severity Reaction Status Date / Time latex Allergy Swelling Verified 01/15/23 20:25 atorvastatin [From Lipitor] AdvReac JOINT PAIN Verified 01/15/23 20:25 Physical Exam Vitals: Vital Signs Temp Pulse Resp BP Pulse Ox 01/16/23 10:13 18 98/55 91 L 01/16/23 08:57 80 16 99/62 99 01/16/23 07:42 71 16 75/27 93 L 01/16/23 06:25 71 15 107/54 93 L 01/16/23 06:09 73 17 100/52 94 L 01/16/23 05:54 70 15 97/45 94 L 01/16/23 05:06 71 15 110/53 94 L 01/16/23 04:03 70 19 105/58 94 L 01/16/23 03:45 71 16 108/57 95 01/16/23 03:05 69 15 98/55 94 L 01/16/23 02:30 63 20 89/42 95 01/16/23 02:20 65 19 81/50 96 01/16/23 02:10 64 16 87/40 96 01/16/23 01:44 63 22 80/46 95 01/16/23 01:27 57 L 18 71/38 96 01/16/23 01:04 63 22 92/50 97 01/16/23 00:20 65 16 82/51 95 01/15/23 22:55 68 20 102/53 96 01/15/23 22:43 71 20 93/76 96 01/15/23 21:43 71 18 88/61 97 01/15/23 19:59 97.9 F 65 18 88/46 95 Intake and Output 01/15/23 01/16/23 01/16/23 22:59 06:59 14:59 Intake Total 22.535 51.401 Output Total 475 Balance 22.535 -423.599 Intake: Intake, IV Titration 22.535 51.401 Amount Norepinephrine 32 mg In 22.535 51.401 Sodium Chloride 0.9% 218 ml @ 0.03 MCG/KG/MIN 1.34 mls/hr IV .Q24H [facility] Rx#: [id number] Output: Urine 475 Other: Weight 95.254 kg Results - Lab Results Most recent lab results Calcium 8.8 mg/dL (8.4-10.2) 01/16/23 06:06 01/16/23 06:06 01/16/23 06:06 Assessment and Plan Plan: Assessment: 1. Acute kidney injury secondary to hemodynamic ATN. Creatinine was 3.96 on admission and is 3.72 today. Rule out urinary retention. 2. Chronic systolic CHF with ejection fraction of 30-35% and moderate mitral, tricuspid and aortic regurgitation. 3. Hypovolemic hyponatremia improved with IV hydration. 4. Metabolic acidosis secondary to acute kidney injury. Improved. 5. Chronic kidney disease stage IIIa with baseline creatinine 1.1-1.3 secondary to nephrosclerosis. 6. Anemia of chronic kidney disease. Rule out iron deficiency. 7. Hypotension secondary to antihypertensive meds and diuretics. Plan: Maintain gentle IV hydration. Wean Levophed. Continue to hold antihypertensives and diuretics. Encouraged oral intake. Check urinalysis. Check renal ultrasound. Check bladder scan to rule out urinary retention. Check iron studies. Check morning cortisol level. Continue to monitor renal function and urine output. Thank you for the consultation. I will continue to follow the patient with you during his hospital stay.
--- NOTE | 2023-01-16 11:26 | US ---
EXAMINATION TYPE: US kidneys/renal and bladder DATE OF EXAM: 01/16/2023 COMPARISON: CT a/p 09/09/2022. CLINICAL HISTORY: shayna. Abnormal labs. Inpatient. EXAM MEASUREMENTS: Right Kidney: 11.1 x 5.1 x 6.2 cm Left Kidney: 11.7 x 5.0 x 5.7 cm Right Kidney: No hydronephrosis or masses seen. Slightly echogenic. Limited visualization of lower po le due to bowel gas Left Kidney: No hydronephrosis or masses seen Bladder: distended, anechoic Bilateral Jets not seen Incidental finding: Ascites visualized adjacent to liver and pelvis adjacent to bladder Incidental finding: Right pleural effusion There is no evidence for hydronephrosis at this point in time. No nephrolithiasis is seen. No jackson s are identified. Cortical medullary differentiation is maintained. The urinary bladder is adequatel y distended. Bilateral ureteral jets are not seen. Small amount of Intraperitoneal ascites is presen t on current study in the pelvis and adjacent to liver. Visualized liver is heterogeneously hyperecho ic suggesting underlying hepatocellular disease. IMPRESSION: No hydronephrosis is seen bilaterally.
--- NOTE | 2023-01-16 12:13 | P.CRDCN ---
History of Present Illness Consult date: 01/16/23 History of present illness: HISTORY OF PRESENT ILLNESS: This is a 67 year old male with a past medical history significant for coronary artery disease with previous CABG and stenting, hypertension, and hyperlipidemia. Patient follows in the office with Dr. Wiggins. We have been asked to see the patient in consultation for syncope. Patient was admitted to the hospital in October 2022 secondary to STEMI and underwent SVG to LAD and aspiration thrombectomy. His procedure was complicated with ventricle fibrillation upon crossing the aortic valve. The patient was also recently hospitalized for exacerbation of congestive heart failure. The patient initially presented to [facility] after having a syncopal episode. He was found to have acute kidney injury and was transferred to [facility] for further evaluation. Patient was also hypotensive and given IV fluids and started on Levophed. Patient currently denies chest pain or pressure. Denies SOB. SBP currently 110s. * EKG reveals sinus mechanism with no signs of acute ischemia * Laboratory data: WBC 10.5. Hemoglobin 8.9. Platelet count 232. Sodium 134. Potassium 4.3. BUN 42. Creatinine 3.72. Troponin 1.060. ProBNP 13,400. * Current home cardiac medications include Eliquis 5mg BID, aspirin 81 mg daily, Plavix 75 mg at night, Zetia 10 mg daily, Lasix 80 mg twice a day, Imdur 30 mg daily, metoprolol succinate 50 mg daily, amlodipine 2.5 mg daily, lisinopril 2.5 mg daily, and Crestor 20 mg at night * Most recent echocardiogram obtained in October 2022 revealed Ejection fraction 35%, anterior septal, apical, and inferior hypokinesis. Mild tricuspid regurgitation. * limited echocardiogram obtained in December 2022 revealed ejection fraction 30- 35% with moderate mitral regurgitation and moderate aortic insufficiency * Cardiac catheterization: 11/11/2022 revealed acute total occlusion of the SVG to LAD with large thrombus burden, status post PCI of the SVG to LAD with aspiration thrombectomy. Procedure was complicated with ventricular fibrillation upon crossing the aortic valve. REVIEW OF SYSTEMS: At the time of my exam: CONSTITUTIONAL: Denies fever or chills. HEENT: Denies blurred vision, vision changes, or eye pain. Denies hemoptysis CARDIOVASCULAR: Denies chest pain. Denies orthopnea. Denies PND. Denies palpitations RESPIRATORY: Denies shortness of breath. GASTROINTESTINAL: Denies abdominal pain. Denies nausea or vomiting. HEMATOLOGIC: Denies bleeding disorders. GENITOURINARY: Denies any blood in urine. SKIN: Denies pruitis. Denies rash. PHYSICAL EXAM: VITAL SIGNS: Reviewed. GENERAL: Well-developed in no acute distress. HEENT: Head is normocephalic. Pupils are equal, round. Sclerae anicteric. Mucous membranes of the mouth are moist. Neck supple. No JVD or thyromegaly LUNGS: Respirations even and unlabored. Lungs essentially clear to auscultation bilaterally. HEART: Regular rate and rhythm. S1 and S2 heard. + systolic murmur. ABDOMEN: Soft. Nondistended. Nontender. EXTREMITIES: Normal range of motion. No clubbing or cyanosis. Peripheral pulses intact. No lower extremity edema NEUROLOGIC: Awake and alert. Oriented x 3. ASSESSMENT: Syncope Hypotension requiring vasopressor support Acute kidney injury Chronic kidney disease History of anterior STEMI status post PCI of the SVG to LAD and aspiration thrombectomy, complicated by ventricular fibrillation, October 2022 Coronary artery disease with previous CABG and PCI Chronic congestive heart failure with reduced EF, EF 30-35 Ischemic cardiomyopathy Hypertension Hyperlipidemia PLAN: No need to repeat echocardiogram as this was performed earlier this month Continue to monitor blood pressure Wean vasopressors as tolerated Continue IVF at 50cc/hr. Will defer fluid management to nephrology Hold antihypertensive medications Continue Eliquis, aspirin, plavix, and lipitor Further recommendations pending patient course Nurse practitioner note has been reviewed by physician. Signing provider agrees with the documented findings, assessment, and plan of care. Past Medical History Past Medical History: Coronary Artery Disease (CAD), Chest Pain / Angina, COPD, GERD/Reflux, Hyperlipidemia, Hypertension, Myocardial Infarction ([place]), Osteoarthritis (OA), Sleep Apnea/CPAP/BIPAP Additional Past Medical History / Comment(s): hiatal hernia, chronic back pain, L foot drop, numbness/tingling bilateral legs, HUSAM without device, states stents x7 Last Myocardial Infarction Date:: 11/11/22 History of Any Multi-Drug Resistant Organisms: None Reported Past Surgical History: Back Surgery, Cholecystectomy, Coronary Bypass/CABG, Heart Catheterization With Stent, Orthopedic Surgery Additional Past Surgical History / Comment(s): Back surg x 2 with cage. L tennis elbow surg. HEART STENTS X7. Colonoscopy. Lasik eye surgery bilaterally. Emergency Cabg [facility] Past Anesthesia/Blood Transfusion Reactions: No Reported Reaction Additional Past Anesthesia/Blood Transfusion Reaction / Comment(s): Pt received blood during CABG without reaction. Date of Last Stent Placement:: Oct 2022 Past Psychological History: Anxiety, Depression, PTSD Smoking Status: Former smoker Past Alcohol Use History: None Reported Past Drug Use History: None Reported - Past Family History Father Family Medical History: Coronary Artery Disease (CAD), Deep Vein Thrombosis (DVT), GERD/Reflux, Hyperlipidemia Additional Family Medical History / Comment(s): Father of a [place] in his 80's Mother Family Medical History: Coronary Artery Disease (CAD) Additional Family Medical History / Comment(s): Mother of a [place] at the age of 76yrs. Sister(s) Family Medical History: Cancer Additional Family Medical History / Comment(s): Lung cancer. Medications and Allergies Home Medications Medication Instructions Recorded Confirmed Type HYDROcodone/APAP 10-325MG [[place] 1 tab PO QID PRN 02/22/15 01/15/23 History 10-325] ALPRAZolam [Xanax] 2 mg PO TID PRN 02/23/15 01/15/23 History rOPINIRole HCL [Requip] 0.25 mg PO HS 09/29/17 01/15/23 History Fluticasone Nasal [place] [Flonase 1 spr EA NOSTRIL DAILY 06/11/18 01/15/23 History Nasal [place]] Budesonide-Formot 160-4.5 Mcg 2 puff INHALATION RT-BID 10/04/21 01/15/23 History [Symbicort 160-4.5 Mcg Inhaler] Isosorbide Mononitrate ER [Imdur] 30 mg PO DAILY #90 tab 10/05/21 01/15/23 Rx Ergocalciferol [Vitamin D2 (1250 1,250 mcg PO QMONTHLY 09/09/22 01/15/23 History Mcg = 68946 Iu)] Diclofenac Sodium Gel [Voltaren 1 applic TOPICAL QID PRN 11/11/22 01/15/23 History Gel] Apixaban [Eliquis] 2.5 mg PO BID #60 tab 11/18/22 01/15/23 Rx Aspirin 81 mg PO DAILY tab 11/18/22 01/15/23 Rx Clopidogrel [Plavix] 75 mg PO HS #30 tab 11/18/22 01/15/23 Rx Ezetimibe [Zetia] 10 mg PO DAILY #90 tab 11/18/22 01/15/23 Rx Nitroglycerin Sl Tabs [Nitrostat] 0.4 mg SUBLINGUAL Q5M PRN #25 tab 11/18/22 01/15/23 Rx Fenofibrate [Lofibra] 160 mg PO DAILY #30 tab 12/01/22 01/15/23 Rx Furosemide [Lasix] 80 mg PO BID #180 tablet 12/01/22 01/15/23 Rx Metoprolol Succinate (ER) [Toprol 50 mg PO DAILY #30 tab 12/01/22 01/15/23 Rx XL] Potassium Chloride ER [K-Dur 20] 20 meq PO BID 12/18/22 01/15/23 History Rosuvastatin [Crestor] 20 mg PO HS 12/18/22 01/15/23 History amLODIPine [Norvasc] 2.5 mg PO DAILY 12/18/22 01/15/23 History lisinopriL [Zestril] 2.5 mg PO DAILY 12/18/22 01/15/23 History Allergies Allergy/AdvReac Type Severity Reaction Status Date / Time latex Allergy Swelling Verified 01/15/23 20:25 atorvastatin [From Lipitor] AdvReac JOINT PAIN Verified 01/15/23 20:25 Physical Exam Vitals: Vital Signs Temp Pulse Resp BP Pulse Ox 01/16/23 10:49 73 18 100/46 97 01/16/23 10:13 18 98/55 91 L 01/16/23 08:57 80 16 99/62 99 01/16/23 07:42 71 16 75/27 93 L 01/16/23 06:25 71 15 107/54 93 L 01/16/23 06:09 73 17 100/52 94 L 01/16/23 05:54 70 15 97/45 94 L 01/16/23 05:06 71 15 110/53 94 L 01/16/23 04:03 70 19 105/58 94 L 01/16/23 03:45 71 16 108/57 95 01/16/23 03:05 69 15 98/55 94 L 01/16/23 02:30 63 20 89/42 95 01/16/23 02:20 65 19 81/50 96 01/16/23 02:10 64 16 87/40 96 01/16/23 01:44 63 22 80/46 95 01/16/23 01:27 57 L 18 71/38 96 01/16/23 01:04 63 22 92/50 97 01/16/23 00:20 65 16 82/51 95 01/15/23 22:55 68 20 102/53 96 01/15/23 22:43 71 20 93/76 96 01/15/23 21:43 71 18 88/61 97 01/15/23 19:59 97.9 F 65 18 88/46 95 Intake and Output 01/15/23 01/16/23 01/16/23 22:59 06:59 14:59 Intake Total 22.535 100.510 Output Total 475 Balance 22.535 -374.490 Intake: Intake, IV Titration 22.535 100.510 Amount Norepinephrine 32 mg In 22.535 100.510 Sodium Chloride 0.9% 218 ml @ 0.03 MCG/KG/MIN 1.34 mls/hr IV .Q24H [facility] Rx#: [id number] Output: Urine 475 Other: Weight 95.254 kg Results 01/16/23 06:06 01/16/23 06:06 Cardiac Enzymes 01/15/23 01/15/23 Range/Units 21:11 21:11 AST 26 (17-59) U/L Troponin I 1.060 H* (0.000-0.034) ng/mL Coagulation 01/15/23 Range/Units 23:18 PT 11.1 (9.0-12.0) sec APTT 24.5 (22.0-30.0) sec CBC 01/15/23 01/16/23 Range/Units 21:11 06:06 WBC 7.3 10.5 (3.8-10.6) k/uL RBC 2.99 L 3.16 L (4.30-5.90) m/uL Hgb 8.5 L 8.9 L (13.0-17.5) gm/dL Hct 26.6 L 27.9 L (39.0-53.0) % Plt Count 160 232 (150-450) k/uL Comprehensive Metabolic Panel 01/15/23 01/16/23 Range/Units 21:11 06:06 Sodium 131 L 134 L (137-145) mmol/L Potassium 4.9 4.3 (3.5-5.1) mmol/L Chloride 98 98 (98-107) mmol/L Carbon Dioxide 20 L 24 (22-30) mmol/L BUN 40 H 42 H (9-20) mg/dL Creatinine 3.96 H 3.72 H (0.66-1.25) mg/dL Glucose 89 125 H (74-99) mg/dL Calcium 8.7 8.8 (8.4-10.2) mg/dL AST 26 (17-59) U/L ALT 13 (4-49) U/L Alkaline Phosphatase 55 (38-126) U/L Total Protein 6.5 (6.3-8.2) g/dL Albumin 3.8 (3.5-5.0) g/dL Current Medications Generic Name Dose Route Start Last Admin Trade Name Freq PRN Reason Stop Dose Admin Hydrocodone Bitart/Acetaminophen 1 each 01/16/23 01:00 01/16/23 09:45 Hydrocodone/Apap 10-325mg 1 Each Tab PO 1 each QID PRN Administration Pain Albuterol Sulfate 2.5 mg 01/16/23 13:00 Albuterol Nebulized 2.5 Mg/3 Ml INHALATION RT-TID [facility]IANA Alprazolam 2 mg 01/16/23 01:00 01/16/23 00:23 Alprazolam 1 Mg Tab PO 2 mg TID PRN Administration Anxiety Apixaban 2.5 mg 01/16/23 01:00 01/16/23 08:36 Apixaban 2.5 Mg Tablet PO 2.5 mg BID ELIANA Administration Protocol Aspirin 81 mg 01/16/23 09:00 01/16/23 08:36 Aspirin 81 Mg PO 81 mg DAILY ELIANA Administration Atorvastatin Calcium 40 mg 01/16/23 01:00 01/16/23 00:22 Atorvastatin 40 Mg Tab PO 40 mg HS ELIANA Administration Budesonide/Formoterol Fumarate 2 puff 01/16/23 08:00 01/16/23 08:42 Symbicort 160-4.5 Mcg Inhaler INHALATION 2 puff RT-BID ELIANA Administration Clopidogrel Bisulfate 75 mg 01/16/23 00:00 01/16/23 00:22 Clopidogrel 75 Mg Tab PO 75 mg HS ELIANA Administration Ezetimibe 10 mg 01/16/23 09:00 01/16/23 08:35 Ezetimibe 10 Mg Tab PO 10 mg DAILY ELIANA Administration Norepinephrine Bitartrate 32 250 mls @ 1.34 mls/hr 01/15/23 21:15 01/16/23 11:55 mg/ Sodium Chloride IV 0.27 mcg/kg/min .Q24H [facility] 12.056 mls/hr Titration Protocol 0.03 MCG/KG/MIN Sodium Chloride 1,000 mls @ 50 mls/hr 01/16/23 01:45 01/16/23 01:46 Saline 0.9% IV 50 mls/hr .Q20H [facility] Administration Ipratropium [place] 0.5 mg 01/16/23 13:00 Ipratropium 0.5 Mg/2.5 Ml Nebu INHALATION RT-TID [facility]IANA Naloxone HCl 0.2 mg 01/15/23 22:33 Naloxone 0.4 Mg/Ml 1 Ml Vial IV Q2M PRN Opioid Reversal Ropinirole HCl 0.25 mg 01/16/23 01:00 01/16/23 00:22 Ropinirole Hcl 0.25 Mg Tab PO 0.25 mg HS ELIANA Administration Intake and Output 01/15/23 01/16/23 01/16/23 22:59 06:59 14:59 Intake Total 22.535 100.510 Output Total 475 Balance 22.535 -374.490 Intake: Intake, IV Titration 22.535 100.510 Amount Norepinephrine 32 mg In 22.535 100.510 Sodium Chloride 0.9% 218 ml @ 0.03 MCG/KG/MIN 1.34 mls/hr IV .Q24H [facility] Rx#: [id number] Output: Urine 475 Other: Weight 95.254 kg 01/16/23 06:06 01/16/23 06:06
[2023-01-16] MEDS: ALBUTEROL NEBULIZED 2.5 MG/3 ML INHALATION SCH ×2 (12:29→19:48)
[2023-01-16] MEDS: IPRATROPIUM 0.5 MG/2.5 ML NEBU INHALATION SCH ×2 (12:29→19:48)
[2023-01-16] MEDS ORDERED: IPRATROPIUM-ALBUTEROL 3 ML NEB INHALATION SCH (13:00)
[2023-01-16 13:36] LABS: Appearance,Urine Clear (Clear); Bilirubin,Urine Negative (Negative); Blood,Urine Negative (Negative); Color,Urine Yellow; Glucose,Urine (UA) Negative (Negative); Ketones,Urine Negative (Negative); Leukocyte Esterase,Urine Negative (Negative); Nitrite,Urine Negative (Negative); Protein,Urine Trace (Negative); Specific Gravity,Urine 1.012 (1.001-1.035); Urobilinogen,Urine <2.0 mg/dL (<2.0)
[2023-01-16] MEDS ORDERED: PANTOPRAZOLE 40 MG TABLET PO STA (17:17)
[2023-01-16 18:40] LABS: % Iron Saturation 5.9 (15.00-50.00); Ferritin 41.7 ng/mL (22.0-322.0)
[2023-01-16] MEDS: NOREPINEPHRINE 32 MG in SODIUM CHLORIDE 0.9% 218 ML IV SCH (21:08)
[2023-01-17] MEDS: ALPRAZolam 1 MG TAB PO PRN ×3 (00:23→21:16)
[2023-01-17] MEDS: HYDROcodone/APAP 10-325MG 1 EACH TAB PO PRN ×3 (02:12→18:16)
[2023-01-17] MEDS: ALBUTEROL NEBULIZED 2.5 MG/3 ML INHALATION SCH ×3 (07:38→22:10)
[2023-01-17] MEDS: IPRATROPIUM 0.5 MG/2.5 ML NEBU INHALATION SCH ×3 (07:38→22:10)
[2023-01-17] MEDS: SYMBICORT 160-4.5 MCG INHALER INHALATION SCH ×2 (07:40→22:10)
--- NOTE | 2023-01-17 09:42 | PN ---
PROGRESS NOTE SUBJECTIVE: Mr. Simmons is in a sinus rhythm. Breathing much better. Has no chest pain. His shortness of breath has improved. He feels stronger. His Levophed dose is lower. I am recommending that we wean off the Levophed hopefully today. Continue current medications, and check his renal function, which is still pending at this time. OBJECTIVE: VITAL SIGNS: Stable. Blood pressure is about 106/70, pulse rate is 70 per minute. HEART: S1, S2 with a short systolic murmur. LUNGS: Revealed decent air entry. ABDOMEN: Soft. EXTREMITIES: Lower extremities revealed diminished pulses. CENTRAL NERVOUS SYSTEM: Normal. PLAN: Continue current medications, increase oral intake. Check renal function. Same medical regimen. Prognosis remains guarded. MMODL / IJN: [id number] /
[2023-01-17] MEDS: EZETIMIBE 10 MG TAB PO SCH (09:51)
[2023-01-17] MEDS: ASPIRIN 81 MG PO SCH (09:51)
[2023-01-17] MEDS: APIXABAN 2.5 MG TABLET PO SCH ×2 (09:51→21:18)
[2023-01-17] MEDS: NOREPINEPHRINE 32 MG in SODIUM CHLORIDE 0.9% 218 ML IV SCH (09:57)
[2023-01-17] MEDS: HYDROCORTISONE SUCCINATE 100 MG/2 ML VIAL IV SCH ×4 (09:59→23:25)
--- NOTE | 2023-01-17 10:00 | P.PN ---
Subjective Patient is seen in follow-up for acute kidney injury on chronic kidney disease. Receiving IV fluids. Creatinine 3.72 today. Denies chest pain or shortness of breath. On 5 L nasal cannula. Blood pressure stable. Vital signs are stable. General: No acute distress. HEENT: Head exam is unremarkable. On nasal cannula. LUNGS: No audible rhonchi or wheezes. HEART: Rate and Rhythm are regular. ABDOMEN: Obese. No distention. EXTREMITITES: 1+ edema. Objective - Vital Signs Vital signs: Vital Signs Temp 97.9 F 01/15/23 19:59 Pulse 81 01/17/23 08:03 Resp 24 01/17/23 06:35 BP 98/51 01/17/23 06:35 Pulse Ox 99 01/17/23 07:41 FiO2 Intake & Output 01/16/23 01/17/23 01/17/23 18:59 06:59 18:59 Intake Total 644.510 328.351 152.765 Output Total 1225 850 550 Balance -580.490 -521.649 -397.235 Intake: Intake, IV Titration 100.510 208.351 152.765 Amount Norepinephrine 32 mg In 100.510 208.351 152.765 Sodium Chloride 0.9% 218 ml @ 0.03 MCG/KG/MIN 1.34 mls/hr IV .Q24H [facility] Rx#: [id number] Oral 544 120 Output: Urine 1225 850 550 - Labs CBC & Chem 7: 01/16/23 06:06 01/16/23 06:06 Labs: Abnormal Lab Results - Last 24 Hours (Table) 01/16/23 01/16/23 Range/Units 06:07 12:45 Iron 33 L (65-175) ug/dL TIBC 557 H (228-460) ug/dL % Saturation 5.90 L (15.00-50.00) Transferrin 398.0 H (204.0-354.0) mg/dL Urine Protein Trace H (Negative) Assessment and Plan Plan: Assessment: 1. Acute kidney injury secondary to hemodynamic ATN. Creatinine was 3.96 on admission and 3.72 yesterday. No evidence of urinary retention. No hydronephrosis noted on kidney ultrasound. UA fairly benign. 2. Chronic systolic CHF with ejection fraction of 30-35% and moderate mitral, tricuspid and aortic regurgitation. 3. Hypovolemic hyponatremia improved with IV hydration. Now hypervolemic. 4. Metabolic acidosis secondary to acute kidney injury. Improved. 5. Chronic kidney disease stage IIIa with baseline creatinine 1.1-1.3 secondary to nephrosclerosis. 6. Anemia of chronic kidney disease. Iron deficiency noted. 7. Hypotension secondary to antihypertensive meds and diuretics. Cortisol level in the low end of normal. Plan: Hep-Lock IV fluids. Wean Levophed. Add IV Lasix 40 mg once daily. Encouraged oral intake. Add IV iron. Continue to monitor renal function and urine output. Add midodrine. Check chest x-ray.
[2023-01-17 10:17] LABS: Calcium 8.8 mg/dL (8.4-10.2); Magnesium 2.2 mg/dL (1.6-2.3); Potassium 4.5 mmol/L (3.5-5.1)
--- NOTE | 2023-01-17 10:32 | XR ---
EXAMINATION TYPE: XR chest 1V DATE OF EXAM: 01/17/2023 COMPARISON: 01/10/2023 INDICATION: Short of breath TECHNIQUE: Single frontal view of the chest is obtained. FINDINGS: The heart size is upper limits of normal. The pulmonary vasculature is dominant. Mild increased central lung markings are present. Correlate for volume overload. A small right pleural effusion appears to be increasing. Sternotomy wires are in midline. IMPRESSION: 1. Clinical correlation recommended for volume overload. Follow-up is recommended. 2. Small right pleural effusion, increasing.
[2023-01-17] MEDS: FUROSEMIDE 10 MG/ML 4 ML VIAL IV SCH (10:39)
[2023-01-17] MEDS: SODIUM FERRIC GLUCONAT-SUCROSE 125 MG in SODIUM CHLORIDE 0.9% 100 ML IVPB SCH (11:03)
--- NOTE | 2023-01-17 12:43 | P.PN ---
Subjective Progress Note Date: 01/17/23 Principal diagnosis: Hypotension. Pulmonary/critical care consult dated 01/16/2023. 67-year-old male seen in the emergency room, room 5. The patient has been in the hospital now for the third time be getting from the first of the year. Hospitalized in October, had a PCI done with stent placements, he was hospitalized twice before in December. Currently, he's on 4 L of oxygen. Is getting saline at 50 mL an hour. He is getting norepinephrine at about 26 mcg/m. He came into the emergency room on January 15 complaining of weakness and a low blood pressure. He was transferred in from [facility]. The patient had been taking Lasix, from his prior admission, and apparently was found to have acute kidney injury as well. Currently, he is resting comfortably in the intensive care unit. His primary care physician is Dr. Luis Gee. White count 10.5, hemoglobin 8.9, hematocrit 27.9, within normal platelet count. Coagulation studies were normal. Sodium 134, potassium 4.3, chlorides 98, CO2 24, BUN 42, and creatinine 3.72. His anion gap is normal. His troponin was 1.060, and his N-terminal proBNP was 13,400. Pulmonary progress note dated 01/17/2023. The patient is seen today again in the emergency room, room 5. The patient is currently on 5 L nasal cannula. He is getting saline at 50 mL an hour. He does feel better today. He remains on norepinephrine. It's currently running at 0.15 mcg/kg/m which is right around 14.25 mcg/m. Yesterday, he was on a much higher dose. As mentioned before, he is feeling better. His cortisol level was only 6. He was started on hydrocortisone 50 mg IV push, every 6 hours. Labs today include a sodium 136, potassium 4.5, chlorides 101, CO2 22, anion gap 13, BUN 29, creatinine 2.13. His kidney functions a bit improved. Chest x-ray shows mild fluid overload. Objective - Vital Signs Vital signs: Vital Signs Temp 97.9 F 01/15/23 19:59 Pulse 86 01/17/23 12:13 Resp 24 01/17/23 06:35 BP 98/51 01/17/23 06:35 Pulse Ox 99 01/17/23 07:41 FiO2 Intake & Output 01/16/23 01/17/23 01/17/23 18:59 06:59 18:59 Intake Total 644.510 328.351 159.344 Output Total 1225 850 550 Balance -580.490 -521.649 -390.656 Intake: Intake, IV Titration 100.510 208.351 159.344 Amount Norepinephrine 32 mg In 100.510 208.351 152.765 Sodium Chloride 0.9% 218 ml @ 0.03 MCG/KG/MIN 1.34 mls/hr IV .Q24H [facility] Rx#: [id number] Norepinephrine 32 mg In 6.579 Sodium Chloride 0.9% 218 ml @ 0.03 MCG/KG/MIN 1.34 mls/hr IV .Q24H [facility] Rx#: [id number] Oral 544 120 Output: Urine 1225 850 550 - Exam No acute distress, oriented 3. Currently on 5 L of oxygen. No audible wheezi ng, use of accessory muscles. HEENT examination is grossly unremarkable. Neck supple. Full range of motion. No adenopathy thyromegaly or neck vein distention. Cardiovascular examination reveals regular rhythm rate. S1-S2 normal. No S3 or S4. No discernible murmur noted. Heart rate 86 bpm. Lungs reveal scattered bilateral rhonchi. No wheezes. No crackles. Saturations 99% on 5 L. Abdomen soft bowel sounds are heard. No masses or tenderness. Extremities are intact. No cyanosis or clubbing. Trace edema. Skin is without rash or lesion. Neurologic examination is brief but nonfocal. - Labs CBC & Chem 7: 01/16/23 06:06 01/17/23 08:57 Labs: Abnormal Lab Results - Last 24 Hours (Table) 01/16/23 01/16/23 01/17/23 Range/Units 06:07 12:45 08:57 Sodium 136 L (137-145) mmol/L BUN 29 H (9-20) mg/dL Creatinine 2.13 H (0.66-1.25) mg/dL Glucose 106 H (74-99) mg/dL Iron 33 L (65-175) ug/dL TIBC 557 H (228-460) ug/dL % Saturation 5.90 L (15.00-50.00) Transferrin 398.0 H (204.0-354.0) mg/dL Urine Protein Trace H (Negative) Assessment and Plan Assessment: Weakness, hypotension, and acute kidney injury, possibly related to Lasix administration. Possible relative adrenal insufficiency. Recent admission to the hospital for congestive heart failure. October admission to the hospital for PCI/stent placement. History of CAD, S/P myocardial infarction. History of CABG. History of COPD. Gastroesophageal reflux disease. History of hyperlipidemia. History of hypertension. History of sleep apnea syndrome. Osteoarthritis. Prior history of tobacco use. History/depression, PTSD. Plan: Plan dated 01/16/2023. The patient is going to be transferred to the intensive care unit. There is no bed available as yet. Clinically, he appears stable. Labs, x-rays, and medications are reviewed. We will continue to follow make recommendations along the way. We will also add some updrafts to his regimen. Prognosis is guarded. Plan dated 01/17/2023. The patient is again seen in the emergency department. His oxygen requirements are bit higher today. He is on 5 L by nasal cannula. He also norepinephrine requirement has come down significantly, but he still on 14.25 mcg/m. The patient's cortisol level was only 6. He was started on hydrocortisone 50 mg IV push, every 6 hours clinically, he feels much better. Labs, x-rays, and medications reviewed. Overall prognosis remains guarded. We will continue to follow make recommendations along the way. Time with Patient: Greater than 30
[2023-01-17] MEDS: MIDODRINE 5 MG TAB PO SCH ×2 (12:46→18:14)
[2023-01-17] MEDS: ATORVASTATIN 40 MG TAB PO SCH (21:16)
[2023-01-17] MEDS: CLOPIDOGREL 75 MG TAB PO SCH (21:16)
--- NOTE | 2023-01-17 23:11 | PN ---
PROGRESS NOTE DATE OF SERVICE: 01/17/2023 CHIEF COMPLAINT: Congestive heart failure. HISTORY OF PRESENT ILLNESS: This gentleman is doing a little bit better. Breathing is improved, and his blood pressure has come up some. PHYSICAL EXAMINATION: CHEST: Demonstrates occasional rales and rhonchi. CARDIAC: Unchanged with atrial fibrillation. ABDOMEN: Soft and nontender. IMPRESSION: 1. Hypotension. 2. Prerenal azotemia. 3. Coronary artery disease. 4. Chronic obstructive pulmonary disease. PLAN: Continue with IV fluids and rehydrating and monitoring his renal function. MMODL / IJN: [id number] /
--- NOTE | 2023-01-17 23:35 | PN ---
PROGRESS NOTE DATE OF SERVICE: 01/16/2023 CHIEF COMPLAINT: Hypotension. HISTORY OF PRESENT ILLNESS: This gentleman is feeling a little bit better since he has been rehydrated. He is having absolutely no chest pain. PHYSICAL EXAMINATION: CHEST: Clear. CARDIAC: Normal. ABDOMEN: Soft and nontender. IMPRESSION: 1. Hypotension. 2. Dehydration. 3. Prerenal azotemia. 4. Chronic obstructive pulmonary disease. 5. Coronary artery disease. PLAN: Continue with slow rehydration. MMODL / IJN: [id number] /
--- NOTE | 2023-01-17 23:41 | HP ---
HISTORY AND PHYSICAL CHIEF COMPLAINT: Weakness, shortness of breath, and hypotension. HISTORY OF PRESENT ILLNESS: This is another recent admission for this 67-year-old white male. He has had a longstanding history of coronary artery problems and it was recently in a week or 2 ago with some acute and unstable angina pectoris and while going to the catheterization lab and receiving 3 stents. He went home and then went into heart failure and had to come back into the hospital. He was sent home once again on an increased diuretic management program. He then apparently became weak, lightheaded, and fell and was taken to [facility], where he was found to be hypotensive and in renal failure. He was transferred here. REVIEW OF SYSTEMS: He is awake and alert. He denies any headaches, chest pain, cough, hemoptysis, shortness of breath, abdominal pain, melena, hematochezia, hematemesis, dysuria, frequency, urgency, incontinence, etc. Past medical history, family history, and personal and social histories are all otherwise unremarkable and unchanged from his recent admitting and discharge summaries. In the emergency room, his BUN and creatinine were elevated. It was clear that he was dehydrated and had developed prerenal azotemia. PHYSICAL EXAMINATION: VITAL SIGNS: Blood pressure is 92/64 with a pulse of 83 and irregularly irregular. Respirations were 40. He is afebrile. GENERAL: He appeared to be pale and weak. HEAD, EARS, EYES, NOSE, MOUTH, AND THROAT: Normal. CHEST: Clear with good breath sounds. CARDIAC: Demonstrated what sounds like atrial fibrillation. ABDOMEN: Soft and nontender without any masses or visceromegaly. EXTREMITIES: Normal. NEUROLOGIC: He is intact. DIAGNOSES: He is admitted to the hospital with diagnoses of: 1. Hypotension. 2. Dehydration. 3. Prerenal azotemia. 4. Congestive heart failure. 5. Coronary artery disease. 6. Atherosclerotic cardiomyopathy. 7. Chronic obstructive pulmonary disease. PLAN: 1. Bed rest. 2. IV fluids. 3. Withhold antihypertensives. 4. Rehydrate. 5. Consult with Cardiology and Nephrology. MMODL / NATHALYN: [id number] /
[2023-01-18] MEDS: HYDROcodone/APAP 10-325MG 1 EACH TAB PO PRN ×3 (01:10→18:11)
[2023-01-18 01:39] LABS: Glucose,Whole Blood 113 mg/dL (70-110)
[2023-01-18] MEDS ORDERED: SODIUM CHLORIDE 0.9% 1,000 ML IV SCH (02:30)
[2023-01-18] MEDS: ALPRAZolam 1 MG TAB PO PRN ×2 (02:38→21:03)
[2023-01-18 04:31] LABS: Basophils % (A) 0 %; Eosinophils % (A) 0 %; HGB 8.6 gm/dL (13.0-17.5); Hypochromasia Slight; Lymphocytes # (A) 1.1 k/uL (1.0-4.8); Lymphocytes % (A) 18 %; MCH 28.4 pg (25.0-35.0); MCHC 31.7 g/dL (31.0-37.0); MCV 89.8 fL (80.0-100.0); Mean Platelet Volume 10.1; Monocytes # (A) 0.2 k/uL (0-1.0); Monocytes % (A) 3 %; Neutrophils % (A) 78 %; Platelet Count 196 k/uL (150-450); RBC 3.01 m/uL (4.30-5.90); RDW 15.7 % (11.5-15.5); WBC 6.4 k/uL (3.8-10.6)
[2023-01-18 04:46] LABS: Calcium 9.1 mg/dL (8.4-10.2); Magnesium 2.2 mg/dL (1.6-2.3); Potassium 5.4 mmol/L (3.5-5.1)
[2023-01-18] MEDS: HYDROCORTISONE SUCCINATE 100 MG/2 ML VIAL IV SCH ×3 (07:00→17:47)
[2023-01-18] MEDS: MIDODRINE 5 MG TAB PO SCH ×3 (07:02→17:47)
[2023-01-18] MEDS: ALBUTEROL NEBULIZED 2.5 MG/3 ML INHALATION SCH ×3 (08:28→20:19)
[2023-01-18] MEDS: SYMBICORT 160-4.5 MCG INHALER INHALATION SCH ×2 (08:28→20:19)
[2023-01-18] MEDS: IPRATROPIUM 0.5 MG/2.5 ML NEBU INHALATION SCH ×3 (08:28→20:19)
[2023-01-18] MEDS: FUROSEMIDE 10 MG/ML 4 ML VIAL IV SCH (08:42)
[2023-01-18] MEDS: EZETIMIBE 10 MG TAB PO SCH (08:42)
[2023-01-18] MEDS: ASPIRIN 81 MG PO SCH (08:42)
[2023-01-18] MEDS: APIXABAN 2.5 MG TABLET PO SCH ×2 (08:42→21:04)
[2023-01-18] MEDS: SODIUM FERRIC GLUCONAT-SUCROSE 125 MG in SODIUM CHLORIDE 0.9% 100 ML IVPB SCH (08:43)
[2023-01-18] MEDS: NOREPINEPHRINE 32 MG in SODIUM CHLORIDE 0.9% 218 ML IV SCH (09:44)
--- NOTE | 2023-01-18 10:06 | PN ---
PROGRESS NOTE SUBJECTIVE: This gentleman has ischemic cardiomyopathy, previous bypass surgery, and PCI. He came with acute renal injury. He is doing much better. Creatinine is down to 1.83. He is eating better. He is on 40 mg of Lasix in the morning. I am recommending that we continue current medication, but once he is off the Levophed, we can start him on a small dose of beta dorinad as well. OBJECTIVE: VITAL SIGNS: Stable on a small dose of Levophed. NECK: JVD is not evident. HEART: S1, S2 heard normally. Short systolic murmur. LUNGS: Revealed decent air entry. ABDOMEN: Soft. EXTREMITIES: Lower extremity edema is very mild. We will continue current medical regimen and hopefully once he is off Levophed, resume beta dorinda. MMODL / IJN: [id number] /
--- NOTE | 2023-01-18 11:21 | P.PN ---
Subjective Progress Note Date: 01/18/23 Principal diagnosis: Hypotension. Pulmonary/critical care consult dated 01/16/2023. 67-year-old male seen in the emergency room, room 5. The patient has been in the hospital now for the third time be getting from the first of the year. Hospitalized in October, had a PCI done with stent placements, he was hospitalized twice before in December. Currently, he's on 4 L of oxygen. Is getting saline at 50 mL an hour. He is getting norepinephrine at about 26 mcg/m. He came into the emergency room on January 15 complaining of weakness and a low blood pressure. He was transferred in from [facility]. The patient had been taking Lasix, from his prior admission, and apparently was found to have acute kidney injury as well. Currently, he is resting comfortably in the intensive care unit. His primary care physician is Dr. Luis Gee. White count 10.5, hemoglobin 8.9, hematocrit 27.9, within normal platelet count. Coagulation studies were normal. Sodium 134, potassium 4.3, chlorides 98, CO2 24, BUN 42, and creatinine 3.72. His anion gap is normal. His troponin was 1.060, and his N-terminal proBNP was 13,400. Pulmonary progress note dated 01/17/2023. The patient is seen today again in the emergency room, room 5. The patient is currently on 5 L nasal cannula. He is getting saline at 50 mL an hour. He does feel better today. He remains on norepinephrine. It's currently running at 0.15 mcg/kg/m which is right around 14.25 mcg/m. Yesterday, he was on a much higher dose. As mentioned before, he is feeling better. His cortisol level was only 6. He was started on hydrocortisone 50 mg IV push, every 6 hours. Labs today include a sodium 136, potassium 4.5, chlorides 101, CO2 22, anion gap 13, BUN 29, creatinine 2.13. His kidney functions a bit improved. Chest x-ray shows mild fluid overload. Progress note dated 01/18/2023. 67-year-old male who seen today in room 261. Over the last couple of days, he was seen in the emergency department, as there were no beds available in the intensive care unit. The patient has been weaned off and norepinephrine. He is getting oxygen at 3 L. He is getting saline at 50 mL an hour. He feels much improved. He came in with hypotension, and congestive heart failure. White count 6.4, hemoglobin 8.6, hematocrit 27, platelet count 296,000. Sodium 136, potassium 5.4, chlorides 100, CO2 24, BUN 28, and creatinine 1.83. No chest x- ray today. Blood cultures are showing gram-positive bacilli, yet to be identified. Objective - Vital Signs Vital signs: Vital Signs Temp 97.5 F L 01/18/23 08:00 Pulse 67 01/18/23 11:13 Resp 15 01/18/23 11:13 BP 94/53 01/18/23 10:30 Pulse Ox 93 L 01/18/23 11:13 FiO2 Intake & Output 01/17/23 01/18/23 01/18/23 18:59 06:59 18:59 Intake Total 668.041 247.219 413.695 Output Total 1400 500 250 Balance -731.959 -252.781 163.695 Weight 112 kg Intake: IV 200 300 Sodium Chloride 0.9% 1, 200 200 000 ml @ 50 mls/hr IV . Q20H [facility] Rx#:[id number] Sodium Ferric Gluconat- 100 Sucrose 125 mg In Sodium Chloride 0.9% 100 ml @ 100 mls/hr IVPB DAILY [facility] Rx#:[id number] Intake, IV Titration 593.041 47.219 13.695 Amount Norepinephrine 32 mg In 152.765 Sodium Chloride 0.9% 218 ml @ 0.03 MCG/KG/MIN 1.34 mls/hr IV .Q24H [facility] Rx#: [id number] Norepinephrine 32 mg In 40.276 47.219 13.695 Sodium Chloride 0.9% 218 ml @ 0.03 MCG/KG/MIN 1.34 mls/hr IV .Q24H [facility] Rx#: [id number] Sodium Chloride 0.9% 1, 300 000 ml @ 50 mls/hr IV . Q20H [facility] Rx#:[id number] Sodium Ferric Gluconat- 100 Sucrose 125 mg In Sodium Chloride 0.9% 100 ml @ 100 mls/hr IVPB DAILY [facility] Rx#:[id number] Oral 75 100 Output: Urine 1400 500 250 Other: Voiding Method Bedside Commode # Voids 1 1 - Exam No acute distress, oriented 3. Currently on 3 L of oxygen. No audible wheezing, use of accessory muscles. HEENT examination is grossly unremarkable. Neck supple. Full range of motion. No adenopathy thyromegaly or neck vein distention. Cardiovascular examination reveals regular rhythm rate. S1-S2 normal. No S3 or S4. No discernible murmur noted. Heart rate 67 bpm. Lungs reveal scattered bilateral rhonchi. No wheezes. No crackles. Saturations 93 on 3 L. Abdomen soft bowel sounds are heard. No masses or tenderness. Extremities are intact. No cyanosis or clubbing. Trace edema. Skin is without rash or lesion. Neurologic examination is brief but nonfocal. - Labs CBC & Chem 7: 01/18/23 04:20 01/18/23 04:20 Labs: Abnormal Lab Results - Last 24 Hours (Table) 01/18/23 01/18/23 01/18/23 Range/Units 01:38 04:20 04:20 RBC 3.01 L (4.30-5.90) m/uL Hgb 8.6 L (13.0-17.5) gm/dL Hct 27.0 L (39.0-53.0) % RDW 15.7 H (11.5-15.5) % Sodium 136 L (137-145) mmol/L Potassium 5.4 H (3.5-5.1) mmol/L BUN 28 H (9-20) mg/dL Creatinine 1.83 H (0.66-1.25) mg/dL Glucose 138 H (74-99) mg/dL POC Glucose (mg/dL) 113 H (70-110) mg/dL Microbiology - Last 24 Hours (Table) 01/17/23 08:57 Blood Culture Gram Stain - Preliminary Blood 01/17/23 08:57 Blood Culture - Final Blood Assessment and Plan Assessment: Weakness, hypotension, and acute kidney injury, possibly related to Lasix administration. Possible relative adrenal insufficiency. Recent admission to the hospital for congestive heart failure. October admission to the hospital for PCI/stent placement. History of CAD, S/P myocardial infarction. History of CABG. History of COPD. Gastroesophageal reflux disease. History of hyperlipidemia. History of hypertension. History of sleep apnea syndrome. Osteoarthritis. Prior history of tobacco use. History/depression, PTSD. Plan: Plan dated 01/16/2023. The patient is going to be transferred to the intensive care unit. There is no bed available as yet. Clinically, he appears stable. Labs, x-rays, and m edications are reviewed. We will continue to follow make recommendations along the way. We will also add some updrafts to his regimen. Prognosis is guarded. Plan dated 01/17/2023. The patient is again seen in the emergency department. His oxygen requirements are bit higher today. He is on 5 L by nasal cannula. He also norepinephrine requirement has come down significantly, but he still on 14.25 mcg/m. The patient's cortisol level was only 6. He was started on hydrocortisone 50 mg IV push, every 6 hours clinically, he feels much better. Labs, x-rays, and medications reviewed. Overall prognosis remains guarded. We will continue to follow make recommendations along the way. Plan dated 01/18/2023. The patient appears to be doing much better. Between him off the norepinephrine for now. The patient will stay in the ICU no. He is on 3 L. He is getting saline at 50 mL an hour. Blood cultures were positive for gram-positive bacilli, which may be a contaminant. We will await identification. Labs, x- rays, and medications are reviewed. Clinically, he appears to be doing much better. Yesterday he was on 5 L, which is been weaned down to 3 L. 3 days ago, he was on epinephrine at 26 mcg/m, yesterday, at 14 mcg/m, and now he's been weaned off. Time with Patient: Greater than 30
--- NOTE | 2023-01-18 13:57 | P.PN ---
Subjective Patient is seen in follow-up for acute kidney injury on chronic kidney disease. Renal function improving. Nonoliguric. Denies chest pain or shortness of breath. On 3 L nasal cannula. Blood pressure stable. Currently eating lunch. Vital signs are stable. General: No acute distress. HEENT: Head exam is unremarkable. On nasal cannula. LUNGS: No audible rhonchi or wheezes. HEART: Rate and Rhythm are regular. ABDOMEN: Obese. No distention. EXTREMITITES: 1+ edema. Objective - Vital Signs Vital signs: Vital Signs Temp 97.5 F L 01/18/23 08:00 Pulse 67 01/18/23 11:33 Resp 15 01/18/23 11:33 BP 94/53 01/18/23 10:30 Pulse Ox 93 L 01/18/23 11:13 FiO2 Intake & Output 01/17/23 01/18/23 01/18/23 18:59 06:59 18:59 Intake Total 668.041 247.219 613.695 Output Total 1400 500 250 Balance -731.959 -252.781 363.695 Weight 112 kg Intake: IV 200 500 Sodium Chloride 0.9% 1, 200 200 000 ml @ 50 mls/hr IV . Q20H [facility] Rx#:[id number] Sodium Ferric Gluconat- 300 Sucrose 125 mg In Sodium Chloride 0.9% 100 ml @ 100 mls/hr IVPB DAILY [facility] Rx#:[id number] Intake, IV Titration 593.041 47.219 13.695 Amount Norepinephrine 32 mg In 152.765 Sodium Chloride 0.9% 218 ml @ 0.03 MCG/KG/MIN 1.34 mls/hr IV .Q24H [facility] Rx#: [id number] Norepinephrine 32 mg In 40.276 47.219 13.695 Sodium Chloride 0.9% 218 ml @ 0.03 MCG/KG/MIN 1.34 mls/hr IV .Q24H [facility] Rx#: [id number] Sodium Chloride 0.9% 1, 300 000 ml @ 50 mls/hr IV . Q20H [facility] Rx#:[id number] Sodium Ferric Gluconat- 100 Sucrose 125 mg In Sodium Chloride 0.9% 100 ml @ 100 mls/hr IVPB DAILY [facility] Rx#:[id number] Oral 75 100 Output: Urine 1400 500 250 Other: Voiding Method Bedside Commode # Voids 1 1 - Labs CBC & Chem 7: 01/18/23 04:20 01/18/23 04:20 Labs: Abnormal Lab Results - Last 24 Hours (Table) 01/18/23 01/18/23 01/18/23 Range/Units 01:38 04:20 04:20 RBC 3.01 L (4.30-5.90) m/uL Hgb 8.6 L (13.0-17.5) gm/dL Hct 27.0 L (39.0-53.0) % RDW 15.7 H (11.5-15.5) % Sodium 136 L (137-145) mmol/L Potassium 5.4 H (3.5-5.1) mmol/L BUN 28 H (9-20) mg/dL Creatinine 1.83 H (0.66-1.25) mg/dL Glucose 138 H (74-99) mg/dL POC Glucose (mg/dL) 113 H (70-110) mg/dL Microbiology - Last 24 Hours (Table) 01/17/23 08:57 Blood Culture Gram Stain - Preliminary Blood Blood Culture - Preliminary Streptococcus species 01/17/23 08:57 Blood Culture - Final Blood 01/17/23 08:57 Blood Culture - Preliminary Blood No Growth after 24 hours Assessment and Plan Plan: Assessment: 1. Acute kidney injury secondary to hemodynamic ATN. Creatinine was 3.96 on admission and is down to 1.83 today. No evidence of urinary retention. No hydronephrosis noted on kidney ultrasound. UA fairly benign. 2. Chronic systolic CHF with ejection fraction of 30-35% and moderate mitral, tricuspid and aortic regurgitation. 3. Hypovolemic hyponatremia improved with IV hydration. Now hypervolemic. 4. Metabolic acidosis secondary to acute kidney injury. Improved. 5. Chronic kidney disease stage IIIa with baseline creatinine 1.1-1.3 secondary to nephrosclerosis. 6. Anemia of chronic kidney disease. Iron deficiency noted. 7. Hypotension secondary to antihypertensive meds and diuretics. Cortisol level in the low end of normal. On IV steroids. 8. Strep bacteremia. On antibiotics. Plan: Maintain IV Lasix. Encouraged oral intake. Maintain IV iron. Continue to monitor renal function and urine output. Maintain midodrine. Hold for systolic blood pressure greater than 115. Avoid nephrotoxins.
[2023-01-18] MEDS: ATORVASTATIN 40 MG TAB PO SCH (21:03)
[2023-01-18] MEDS: CLOPIDOGREL 75 MG TAB PO SCH (21:04)
[2023-01-19] MEDS: HYDROcodone/APAP 10-325MG 1 EACH TAB PO PRN ×4 (00:01→18:34)
[2023-01-19] MEDS: HYDROCORTISONE SUCCINATE 100 MG/2 ML VIAL IV SCH ×3 (00:02→12:21)
[2023-01-19] MEDS: MIDODRINE 5 MG TAB PO SCH ×3 (06:34→15:56)
[2023-01-19] MEDS: APIXABAN 2.5 MG TABLET PO SCH ×2 (08:20→21:26)
[2023-01-19] MEDS: EZETIMIBE 10 MG TAB PO SCH (08:20)
[2023-01-19] MEDS: ASPIRIN 81 MG PO SCH (08:20)
[2023-01-19] MEDS: FUROSEMIDE 10 MG/ML 4 ML VIAL IV SCH (08:21)
[2023-01-19] MEDS: ALBUTEROL NEBULIZED 2.5 MG/3 ML INHALATION SCH ×3 (08:33→20:59)
[2023-01-19] MEDS: SYMBICORT 160-4.5 MCG INHALER INHALATION SCH ×2 (08:33→20:59)
[2023-01-19] MEDS: IPRATROPIUM 0.5 MG/2.5 ML NEBU INHALATION SCH ×3 (08:35→20:59)
[2023-01-19] MEDS: SODIUM FERRIC GLUCONAT-SUCROSE 125 MG in SODIUM CHLORIDE 0.9% 100 ML IVPB SCH (09:42)
[2023-01-19 11:46] LABS: Albumin 3.9 g/dL (3.5-5.0); Calcium 9.1 mg/dL (8.4-10.2); Potassium 5.5 mmol/L (3.5-5.1); Total Bilirubin 0.5 mg/dL (0.2-1.3); Total Protein 6.7 g/dL (6.3-8.2)
--- NOTE | 2023-01-19 12:22 | P.PN ---
Subjective Progress Note Date: 01/19/23 HISTORY OF PRESENT ILLNESS: This is a 67 year old male with a past medical history significant for coronary artery disease with previous CABG and stenting, hypertension, and hyperlip idemia. Patient follows in the office with Dr. Wiggins. We have been asked to see the patient in consultation for syncope. Patient was admitted to the hospital in October 2022 secondary to STEMI and underwent SVG to LAD and aspiration thrombectomy. His procedure was complicated with ventricle fibrillation upon crossing the aortic valve. The patient was also recently hospitalized for exacerbation of congestive heart failure. The patient initially presented to [facility] after having a syncopal episode. He was found to have acute kidney injury and was transferred to [facility] for further evaluation. Patient was also hypotensive and given IV fluids and started on Levophed. Patient currently denies chest pain or pressure. Denies SOB. SBP currently 110s. * EKG reveals sinus mechanism with no signs of acute ischemia * Laboratory data: WBC 10.5. Hemoglobin 8.9. Platelet count 232. Sodium 134. Potassium 4.3. BUN 42. Creatinine 3.72. Troponin 1.060. ProBNP 13,400. * Current home cardiac medications include Eliquis 5mg BID, aspirin 81 mg daily, Plavix 75 mg at night, Zetia 10 mg daily, Lasix 80 mg twice a day, Imdur 30 mg daily, metoprolol succinate 50 mg daily, amlodipine 2.5 mg daily, lisinopril 2.5 mg daily, and Crestor 20 mg at night * Most recent echocardiogram obtained in October 2022 revealed Ejection fraction 35%, anterior septal, apical, and inferior hypokinesis. Mild tricuspid regurgitation. * limited echocardiogram obtained in December 2022 revealed ejection fraction 30- 35% with moderate mitral regurgitation and moderate aortic insufficiency * Cardiac catheterization: 11/11/2022 revealed acute total occlusion of the SVG to LAD with large thrombus burden, status post PCI of the SVG to LAD with aspiration thrombectomy. Procedure was complicated with ventricular fibril lation upon crossing the aortic valve. 01/19/2023 Patient examined this morning at the bedside. Patient denies chest pain or pressure. He currently denies shortness of breath. He remains on IV Lasix 40 mg IV daily. Vital signs are stable. PHYSICAL EXAM: VITAL SIGNS: Reviewed. GENERAL: Well-developed in no acute distress. HEENT: Head is normocephalic. Pupils are equal, round. Sclerae anicteric. Mucous membranes of the mouth are moist. Neck supple. No JVD or thyromegaly LUNGS: Respirations even and unlabored. Lungs essentially clear to auscultation bilaterally. HEART: Regular rate and rhythm. S1 and S2 heard. + systolic murmur. ABDOMEN: Soft. Nondistended. Nontender. EXTREMITIES: Normal range of motion. No clubbing or cyanosis. Peripheral p ulses intact. No lower extremity edema NEUROLOGIC: Awake and alert. Oriented x 3. ASSESSMENT: Syncope Hypotension requiring vasopressor support Acute kidney injury Chronic kidney disease History of anterior STEMI status post PCI of the SVG to LAD and aspiration thrombectomy, complicated by ventricular fibrillation, October 2022 Coronary artery disease with previous CABG and PCI Chronic congestive heart failure with reduced EF, EF 30-35 Ischemic cardiomyopathy Hypertension Hyperlipidemia PLAN: Discontinue IV Lasix. Begin oral Lasix 40 mg daily Continue additional cardiac medications Continue to monitor blood pressure Further recommendations pending patient course Nurse practitioner note has been reviewed by physician. Signing provider agrees with the documented findings, assessment, and plan of care. Objective - Vital Signs Vital signs: Vital Signs Temp 97.3 F L 01/19/23 08:26 Pulse 76 01/19/23 08:26 Resp 18 01/19/23 08:26 BP 105/69 01/19/23 08:26 Pulse Ox 97 01/19/23 08:51 FiO2 Intake & Output 01/18/23 01/19/23 01/19/23 18:59 06:59 18:59 Intake Total 573.695 120 Output Total 720 350 100 Balance -146.305 -350 20 Weight 110.1 kg Intake: IV 460 0.9 160 Sodium Chloride 0.9% 1, 200 000 ml @ 50 mls/hr IV . Q20H [facility] Rx#:[id number] Sodium Ferric Gluconat- 100 Sucrose 125 mg In Sodium Chloride 0.9% 100 ml @ 100 mls/hr IVPB DAILY [facility] Rx#:[id number] Intake, IV Titration 13.695 Amount Norepinephrine 32 mg In 13.695 Sodium Chloride 0.9% 218 ml @ 0.03 MCG/KG/MIN 1.34 mls/hr IV .Q24H [facility] Rx#: [id number] Oral 100 120 Output: Urine 720 350 100 Stool 0 Urine/Stool Mix 0 Emesis 0 Other: Voiding Method Bedside Commode Bedside Commode Bedside Commode # Voids 1 0 # Bowel Movements 0 - Labs CBC & Chem 7: 01/18/23 04:20 01/19/23 10:46 Labs: Abnormal Lab Results - Last 24 Hours (Table) 01/18/23 01/19/23 Range/Units 04:20 10:46 Sodium 136 L (137-145) mmol/L Potassium 5.5 H (3.5-5.1) mmol/L BUN 38 H (9-20) mg/dL Creatinine 2.04 H (0.66-1.25) mg/dL Glucose 127 H (74-99) mg/dL Procalcitonin 0.19 H (0.02-0.09) ng/mL Microbiology - Last 24 Hours (Table) 01/17/23 08:57 Blood Culture - Preliminary Blood No Growth after 48 hours 01/17/23 08:57 Blood Culture Gram Stain - Preliminary Blood Blood Culture - Preliminary Alpha Hemolytic Streptococcus 01/17/23 08:57 Blood Culture - Final Blood
[2023-01-19] MEDS ORDERED: SODIUM ZIRCONIUM CYCLOSILICATE 10 GM PACKET PO ONE (12:43)
--- NOTE | 2023-01-19 12:44 | P.PN ---
Subjective Patient is seen in follow-up for acute kidney injury on chronic kidney disease. Renal function improved from admission. On oral Lasix. Nonoliguric. Denies chest pain or shortness of breath. On 3 L nasal cannula. Blood pressure stable. Vital signs are stable. General: No acute distress. HEENT: Head exam is unremarkable. On nasal cannula. LUNGS: No audible rhonchi or wheezes. HEART: Rate and Rhythm are regular. ABDOMEN: Obese. No distention. EXTREMITITES: 1+ edema. Objective - Vital Signs Vital signs: Vital Signs Temp 97.3 F L 01/19/23 08:26 Pulse 76 01/19/23 08:26 Resp 18 01/19/23 08:26 BP 105/69 01/19/23 08:26 Pulse Ox 97 01/19/23 08:51 FiO2 Intake & Output 01/18/23 01/19/23 01/19/23 18:59 06:59 18:59 Intake Total 573.695 120 Output Total 720 350 100 Balance -146.305 -350 20 Weight 110.1 kg Intake: IV 460 0.9 160 Sodium Chloride 0.9% 1, 200 000 ml @ 50 mls/hr IV . Q20H [facility] Rx#:[id number] Sodium Ferric Gluconat- 100 Sucrose 125 mg In Sodium Chloride 0.9% 100 ml @ 100 mls/hr IVPB DAILY [facility] Rx#:[id number] Intake, IV Titration 13.695 Amount Norepinephrine 32 mg In 13.695 Sodium Chloride 0.9% 218 ml @ 0.03 MCG/KG/MIN 1.34 mls/hr IV .Q24H [facility] Rx#: [id number] Oral 100 120 Output: Urine 720 350 100 Stool 0 Urine/Stool Mix 0 Emesis 0 Other: Voiding Method Bedside Commode Bedside Commode Bedside Commode # Voids 1 0 # Bowel Movements 0 - Labs CBC & Chem 7: 01/18/23 04:20 01/19/23 10:46 Labs: Abnormal Lab Results - Last 24 Hours (Table) 01/18/23 01/19/23 Range/Units 04:20 10:46 Sodium 136 L (137-145) mmol/L Potassium 5.5 H (3.5-5.1) mmol/L BUN 38 H (9-20) mg/dL Creatinine 2.04 H (0.66-1.25) mg/dL Glucose 127 H (74-99) mg/dL Procalcitonin 0.19 H (0.02-0.09) ng/mL Microbiology - Last 24 Hours (Table) 01/17/23 08:57 Blood Culture - Preliminary Blood No Growth after 48 hours 01/17/23 08:57 Blood Culture Gram Stain - Preliminary Blood Blood Culture - Preliminary Alpha Hemolytic Streptococcus 01/17/23 08:57 Blood Culture - Final Blood Assessment and Plan Plan: Assessment: 1. Acute kidney injury secondary to hemodynamic ATN. Creatinine was 3.96 on admission and is down to 2.04 today. No evidence of urinary retention. No hydronephrosis noted on kidney ultrasound. UA fairly benign. 2. Chronic systolic CHF with ejection fraction of 30-35% and moderate mitral, tricuspid and aortic regurgitation. 3. Hypovolemic hyponatremia improved with IV hydration. Now hypervolemic. 4. Metabolic acidosis secondary to acute kidney injury. Improved. 5. Chronic kidney disease stage IIIa with baseline creatinine 1.1-1.3 secondary to nephrosclerosis. 6. Anemia of chronic kidney disease. Iron deficiency noted. 7. Hypotension secondary to antihypertensive meds and diuretics. Cortisol level in the low end of normal. On IV steroids. 8. Strep bacteremia. On antibiotics. 9. Mild hyperkalemia secondary to acute kidney injury. Plan: Maintain Lasix. Encouraged oral intake. Maintain IV iron. Continue to monitor renal function and urine output. Maintain midodrine. Hold for systolic blood pressure greater than 115. Avoid nephrotoxins. Lokelma 10 g once today.
--- NOTE | 2023-01-19 13:50 | P.PN ---
Subjective Progress Note Date: 01/19/23 Principal diagnosis: Hypotension. Pulmonary/critical care consult dated 01/16/2023. 67-year-old male seen in the emergency room, room 5. The patient has been in the hospital now for the third time be getting from the first of the year. Hospitalized in October, had a PCI done with stent placements, he was hospitalized twice before in December. Currently, he's on 4 L of oxygen. Is getting saline at 50 mL an hour. He is getting norepinephrine at about 26 mcg/m. He came into the emergency room on January 15 complaining of weakness and a low blood pressure. He was transferred in from [facility]. The patient had been taking Lasix, from his prior admission, and apparently was found to have acute kidney injury as well. Currently, he is resting comfortably in the intensive care unit. His primary care physician is Dr. Luis Gee. White count 10.5, hemoglobin 8.9, hematocrit 27.9, within normal platelet count. Coagulation studies were normal. Sodium 134, potassium 4.3, chlorides 98, CO2 24, BUN 42, and creatinine 3.72. His anion gap is normal. His troponin was 1.060, and his N-terminal proBNP was 13,400. Pulmonary progress note dated 01/17/2023. The patient is seen today again in the emergency room, room 5. The patient is currently on 5 L nasal cannula. He is getting saline at 50 mL an hour. He does feel better today. He remains on norepinephrine. It's currently running at 0.15 mcg/kg/m which is right around 14.25 mcg/m. Yesterday, he was on a much higher dose. As mentioned before, he is feeling better. His cortisol level was only 6. He was started on hydrocortisone 50 mg IV push, every 6 hours. Labs today include a sodium 136, potassium 4.5, chlorides 101, CO2 22, anion gap 13, BUN 29, creatinine 2.13. His kidney functions a bit improved. Chest x-ray shows mild fluid overload. Progress note dated 01/18/2023. 67-year-old male who seen today in room 261. Over the last couple of days, he was seen in the emergency department, as there were no beds available in the intensive care unit. The patient has been weaned off and norepinephrine. He is getting oxygen at 3 L. He is getting saline at 50 mL an hour. He feels much improved. He came in with hypotension, and congestive heart failure. White count 6.4, hemoglobin 8.6, hematocrit 27, platelet count 296,000. Sodium 136, potassium 5.4, chlorides 100, CO2 24, BUN 28, and creatinine 1.83. No chest x- ray today. Blood cultures are showing gram-positive bacilli, yet to be identified. Progress note dated 01/19/2023. 67-year-old male, seen today in room 364. He's currently on 3 L of oxygen. He is getting saline at 10 mL an hour. The patient was in the intensive care unit, for a period of time, with hypotension, on norepinephrine. Clinically he is doing much better. Labs today include a sodium 136, potassium 5.5, chlorides 101, CO2 23, anion gap 12, BUN 38, and creatinine 2.04. Pro-calcitonin level is 0.19. Blood cultures were positive for alpha hemolytic streptococci. Currently, the patient is on Rocephin. Objective - Vital Signs Vital signs: Vital Signs Temp 97.3 F L 01/19/23 12:00 Pulse 66 01/19/23 12:00 Resp 17 01/19/23 12:00 BP 106/60 01/19/23 12:00 Pulse Ox 99 01/19/23 12:00 FiO2 Intake & Output 01/18/23 01/19/23 01/19/23 18:59 06:59 18:59 Intake Total 573.695 120 Output Total 720 350 325 Balance -146.305 -350 -205 Weight 110.1 kg Intake: IV 460 0.9 160 Sodium Chloride 0.9% 1, 200 000 ml @ 50 mls/hr IV . Q20H ELIANA Rx#:[id number] Sodium Ferric Gluconat- 100 Sucrose 125 mg In Sodium Chloride 0.9% 100 ml @ 100 mls/hr IVPB DAILY ELIANA Rx#:[id number] Intake, IV Titration 13.695 Amount Norepinephrine 32 mg In 13.695 Sodium Chloride 0.9% 218 ml @ 0.03 MCG/KG/MIN 1.34 mls/hr IV .Q24H ELIANA Rx#: [id number] Oral 100 120 Output: Urine 720 350 325 Stool 0 Urine/Stool Mix 0 Emesis 0 Other: Voiding Method Bedside Commode Bedside Commode Bedside Commode # Voids 1 0 # Bowel Movements 0 - Exam No acute distress, oriented 3. Currently on 3 L of oxygen. No audible wheezing, use of accessory muscles. HEENT examination is grossly unremarkable. Neck supple. Full range of motion. No adenopathy thyromegaly or neck vein distention. Cardiovascular examination reveals regular rhythm rate. S1-S2 normal. No S3 or S4. No discernible murmur noted. Heart rate 66 bpm. Lungs reveal scattered bilateral rhonchi. No wheezes. No crackles. Saturations are 99% on 3 L. Abdomen soft bowel sounds are heard. No masses or tenderness. Extremities are intact. No cyanosis or clubbing. Trace edema. Skin is without rash or lesion. Neurologic examination is brief but nonfocal. - Labs CBC & Chem 7: 01/18/23 04:20 01/19/23 10:46 Labs: Abnormal Lab Results - Last 24 Hours (Table) 01/18/23 01/19/23 Range/Units 04:20 10:46 Sodium 136 L (137-145) mmol/L Potassium 5.5 H (3.5-5.1) mmol/L BUN 38 H (9-20) mg/dL Creatinine 2.04 H (0.66-1.25) mg/dL Glucose 127 H (74-99) mg/dL Procalcitonin 0.19 H (0.02-0.09) ng/mL Microbiology - Last 24 Hours (Table) 01/17/23 08:57 Blood Culture - Preliminary Blood No Growth after 48 hours 01/17/23 08:57 Blood Culture Gram Stain - Preliminary Blood Blood Culture - Preliminary Alpha Hemolytic Streptococcus 01/17/23 08:57 Blood Culture - Final Blood Assessment and Plan Assessment: Weakness, hypotension, and acute kidney injury, possibly related to Lasix administration. Possible relative adrenal insufficiency. Recent admission to the hospital for congestive heart failure. October admission to the hospital for PCI/stent placement. History of CAD, S/P myocardial infarction. History of CABG. History of COPD. Gastroesophageal reflux disease. History of hyperlipidemia. History of hypertension. History of sleep apnea syndrome. Osteoarthritis. Prior history of tobacco use. History/depression, PTSD. Plan: Plan dated 01/16/2023. The patient is going to be transferred to the intensive care unit. There is no bed available as yet. Clinically, he appears stable. Labs, x-rays, and medi cations are reviewed. We will continue to follow make recommendations along the way. We will also add some updrafts to his regimen. Prognosis is guarded. Plan dated 01/17/2023. The patient is again seen in the emergency department. His oxygen requirements are bit higher today. He is on 5 L by nasal cannula. He also norepinephrine requirement has come down significantly, but he still on 14.25 mcg/m. The patient's cortisol level was only 6. He was started on hydrocortisone 50 mg IV push, every 6 hours clinically, he feels much better. Labs, x-rays, and medications reviewed. Overall prognosis remains guarded. We will continue to follow make recommendations along the way. Plan dated 01/18/2023. The patient appears to be doing much better. Between him off the norepinephrine for now. The patient will stay in the ICU no. He is on 3 L. He is getting saline at 50 mL an hour. Blood cultures were positive for gram-positive bacilli, which may be a contaminant. We will await identification. Labs, x- rays, and medications are reviewed. Clinically, he appears to be doing much better. Yesterday he was on 5 L, which is been weaned down to 3 L. 3 days ago, he was on epinephrine at 26 mcg/m, yesterday, at 14 mcg/m, and now he's been weaned off. Plan dated 01/19/2023. Currently, the patient is on Rocephin. Other medications appear to be appropriate. We are going to discontinue the hydrocortisone. We will continue to follow the patient and make recommendations along the way. Labs, x-rays, and medications are all reviewed. Prognosis is guarded. This is the patient's third admission in the last 2 and half to 3 months. Time with Patient: Less than 30
--- NOTE | 2023-01-19 14:58 | CDI ---
Documentation Clarification Form Date: 01/19/2023 2:49:50 PM From: Sheryl Renee RN CCDS Phone: [phone] Admit Date: 01/15/2023 10:33:00 PM Patient Name: Israel Simmons Visit Number: [id number] Discharge Date: ATTENTION: The Clinical Documentation Specialists (CDI) and [facility] Coding Staff appreciate your assistance in clarifying documentation. Please respond to the clarification below the line at the bottom and electronically sign. The CDI & [facility] Coding staff will review the response and follow-up if needed. Please note: Queries are made part of the Legal Health Record. If you have any questions, please contact the author of this message via ITS. Dr. Alexx Gee There is documentation of Strep bacteremia, 01/18, Nephrology note. Bacteremia is considered a lab finding. Additional clarification regarding bacteremia is requested. Patient history/risk factors: 67-year-old male presents to the ED from [place] with weakness, lightheaded and a fall. Medical History: CHF, Unstable angina pectoris, 3 stents, COPD and CAD. 01/17, H&P. Clinical Indicators: VSS: 01/17 B/P 88/46; HR 65; Temp 97.9 F Oral; RR 18; SpO2 95% room air Labs: 01/17 Wbc 7.3; Neutrophils 4.0; Blood Culture: 01/17 Alpha Hemolytic Streptococcus Treatment: 01/15 0.9ns 500cc IV Bolus x 1, 01/15 01/18 Norepinephrine IV Antibiotics: 01/18 Ceftriaxone IVPB Q24H. Please provide additional clarification regarding the etiology/cause and/or clinical significance of the bacteremia: [ ] Bacteremia is related to sepsis [ ] Bacteremia is due to infectious process, please specify: [ ] Bacteremia is not clinically significant [ ] Other, please specify [ ] Unable to determine (Template Last Revised: December 2020) MTDD
[2023-01-19] MEDS: ALPRAZolam 1 MG TAB PO PRN (21:25)
[2023-01-19] MEDS: CLOPIDOGREL 75 MG TAB PO SCH (21:26)
[2023-01-19] MEDS: ATORVASTATIN 40 MG TAB PO SCH (21:26)
[2023-01-20] MEDS: HYDROcodone/APAP 10-325MG 1 EACH TAB PO PRN ×4 (00:27→22:59)
--- NOTE | 2023-01-20 03:04 | PN ---
PROGRESS NOTE DATE OF SERVICE: 01/18/2023 CHIEF COMPLAINT: Syncope, hypotension, dehydration, CAD, and prerenal azotemia. HISTORY OF PRESENT ILLNESS: This gentleman is not having any pain. He is a little bit lethargic. His blood pressure has come up with rehydration. He is not short of breath. PHYSICAL EXAMINATION: GENERAL: He is slightly pale. He is still dehydrated. CHEST: Clear. CARDIAC: Normal. Blood pressure is 96/62. ABDOMEN: Soft and protuberant. IMPRESSION: 1. Syncope. 2. Dehydration. 3. Prerenal azotemia. 4. Coronary artery disease. 5. Congestive heart failure. PLAN: Continue with rehydration. MMODL / IJN: [id number] /
--- NOTE | 2023-01-20 04:13 | PN ---
PROGRESS NOTE DATE OF SERVICE: 01/19/2023 CHIEF COMPLAINT: Syncope and dehydration. HISTORY OF PRESENT ILLNESS: This gentleman is doing a little bit better. He is still very weak. He denies chest pain. PHYSICAL EXAMINATION: CHEST: Quite clear. There are no significant rales. CARDIAC: Unremarkable. ABDOMEN: Soft, nontender. IMPRESSION: 1. Syncope secondary to dehydration. 2. Congestive heart failure. 3. Coronary artery disease. 4. Cardiomyopathy. PLAN: Continue with gradual rehydration with increased activity. MMODL / IJN: [id number] /
--- NOTE | 2023-01-20 08:46 | CDI ---
Documentation Clarification Form Date: 01/20/2023 7:58:29 AM From: Sheryl Renee RN CCDS Phone: [phone] Admit Date: 01/15/2023 10:33:00 PM Patient Name: Israel Simmons Visit Number: [id number] Discharge Date: ATTENTION: The Clinical Documentation Specialists (CDI) and [facility] Coding Staff appreciate your assistance in clarifying documentation. Please respond to the clarification below the line at the bottom and electronically sign. The CDI & [facility] Coding staff will review the response and follow-up if needed. Please note: Queries are made part of the Legal Health Record. If you have any questions, please contact the author of this message via ITS. Dr. Alexx Gee Conflicting documentation has been found in the medical record. As attending physician, please provide clarification. Chronic systolic CHF, Nephrology consult, 01/16 He came in with hypotension, and congestive heart failure, pulmonary note 01/18. History/Risk Factors: 67-year-old male presents to the ED with weakness and a low blood pressure transferred from [facility] with low blood pressure and kidney injury. Medical History: Oct 2022 Anterior STEMI s/p PCI with stent placements, HTN, HLD and Ischemic cardiomyopathy. Clinical Indicators: VSS: Temp 97.9 F Oral; HR 65; RR 18, B/P 88/46; SpO2 95% room air Labs: 01/15 NT Pro B Natriuret Pep [id number] CXR: 01/17 Pulmonary vasculature is dominant. Mild increased 01/17, H&P: He is admitted to the hospital with diagnoses of: Congestive Heart Failure. ECHO: 11/12/22 Ischemic cardiomyopathy with an EF 35% with evidence of prior myocardial in the involving anteroseptal apex and inferior wall. Treatment: 01/15 0.9NS 500cc bolus x 1; 11/17 11/19 Norepinephrine IV; 01/17 01/19 Lasix 40mg IV daily; 01/20 Lasix 40mg po daily Please clarify which diagnosis is most appropriate: [ ] Acute on Chronic Systolic Heart Failure POA [ ] Acute on Chronic Systolic Heart Failure not POA [ ] Chronic Heart Failure [ ] Other (please specify) [ ] Unable to determine Documented 01/[address] Gee: Acute on Chronic congestive heart failure (Template Last Revised: December 2020) MTDD
[2023-01-20 08:58] LABS: Anisocytosis Slight; HCT 29.3 % (39.0-53.0); HGB 9.1 gm/dL (13.0-17.5); Hypochromasia Moderate; MCH 28.5 pg (25.0-35.0); MCHC 31.1 g/dL (31.0-37.0); MCV 91.9 fL (80.0-100.0); Mean Platelet Volume 10.2; Platelet Count 231 k/uL (150-450); RBC 3.19 m/uL (4.30-5.90); WBC 9.5 k/uL (3.8-10.6)
[2023-01-20] MEDS: APIXABAN 2.5 MG TABLET PO SCH ×2 (09:08→20:26)
[2023-01-20] MEDS: SODIUM FERRIC GLUCONAT-SUCROSE 125 MG in SODIUM CHLORIDE 0.9% 100 ML IVPB SCH (09:08)
[2023-01-20] MEDS: FUROSEMIDE 40 MG TAB PO SCH ×2 (09:08→10:49)
[2023-01-20] MEDS: ASPIRIN 81 MG PO SCH (09:08)
[2023-01-20] MEDS: MIDODRINE 5 MG TAB PO SCH ×3 (09:08→17:13)
[2023-01-20] MEDS: EZETIMIBE 10 MG TAB PO SCH (09:08)
[2023-01-20] MEDS ORDERED: hydroCHLOROthiazide 25 MG TAB PO SCH (09:15)
[2023-01-20 09:21] LABS: Calcium 9.2 mg/dL (8.4-10.2); Magnesium 2.4 mg/dL (1.6-2.3); Potassium 4.9 mmol/L (3.5-5.1)
[2023-01-20] MEDS: ALBUTEROL NEBULIZED 2.5 MG/3 ML INHALATION SCH ×3 (09:32→21:47)
[2023-01-20] MEDS: SYMBICORT 160-4.5 MCG INHALER INHALATION SCH ×2 (09:32→21:47)
[2023-01-20] MEDS: IPRATROPIUM 0.5 MG/2.5 ML NEBU INHALATION SCH ×3 (09:32→21:47)
--- NOTE | 2023-01-20 10:31 | P.PN ---
Subjective Progress Note Date: 01/20/23 HISTORY OF PRESENT ILLNESS: This is a 67 year old male with a past medical history significant for coronary artery disease with previous CABG and stenting, hypertension, and hyperlip idemia. Patient follows in the office with Dr. Wiggins. We have been asked to see the patient in consultation for syncope. Patient was admitted to the hospital in October 2022 secondary to STEMI and underwent SVG to LAD and aspiration thrombectomy. His procedure was complicated with ventricle fibrillation upon crossing the aortic valve. The patient was also recently hospitalized for exacerbation of congestive heart failure. The patient initially presented to [facility] after having a syncopal episode. He was found to have acute kidney injury and was transferred to [facility] for further evaluation. Patient was also hypotensive and given IV fluids and started on Levophed. Patient currently denies chest pain or pressure. Denies SOB. SBP currently 110s. * EKG reveals sinus mechanism with no signs of acute ischemia * Laboratory data: WBC 10.5. Hemoglobin 8.9. Platelet count 232. Sodium 134. Potassium 4.3. BUN 42. Creatinine 3.72. Troponin 1.060. ProBNP 13,400. * Current home cardiac medications include Eliquis 5mg BID, aspirin 81 mg daily, Plavix 75 mg at night, Zetia 10 mg daily, Lasix 80 mg twice a day, Imdur 30 mg daily, metoprolol succinate 50 mg daily, amlodipine 2.5 mg daily, lisinopril 2.5 mg daily, and Crestor 20 mg at night * Most recent echocardiogram obtained in October 2022 revealed Ejection fraction 35%, anterior septal, apical, and inferior hypokinesis. Mild tricuspid regurgitation. * limited echocardiogram obtained in December 2022 revealed ejection fraction 30- 35% with moderate mitral regurgitation and moderate aortic insufficiency * Cardiac catheterization: 11/11/2022 revealed acute total occlusion of the SVG to LAD with large thrombus burden, status post PCI of the SVG to LAD with aspiration thrombectomy. Procedure was complicated with ventricular fibril lation upon crossing the aortic valve. 01/19/2023 Patient examined this morning at the bedside. Patient denies chest pain or pressure. He currently denies shortness of breath. He remains on IV Lasix 40 mg IV daily. Vital signs are stable. 01/20/2023 Patient examined this morning. Patient denies chest pain or pressure. He currently denies shortness of breath. Patient currently is on Lasix 40 mg by mouth daily. Potassium 4.9. BUN 43. Creatinine 2.10. PHYSICAL EXAM: VITAL SIGNS: Reviewed. GENERAL: Well-developed in no acute distress. HEENT: Head is normocephalic. Pupils are equal, round. Sclerae anicteric. Mucous membranes of the mouth are moist. Neck supple. No JVD or thyromegaly LUNGS: Respirations even and unlabored. Lungs essentially clear to auscultation bilaterally. HEART: Regular rate and rhythm. S1 and S2 heard. + systolic murmur. ABDOMEN: Soft. Nondistended. Nontender. EXTREMITIES: Normal range of motion. No clubbing or cyanosis. Peripheral pulses intact. No lower extremity edema NEUROLOGIC: Awake and alert. Oriented x 3. ASSESSMENT: Syncope Hypotension requiring vasopressor support Acute kidney injury Chronic kidney disease History of anterior STEMI status post PCI of the SVG to LAD and aspiration thrombectomy, complicated by ventricular fibrillation, October 2022 Coronary artery disease with previous CABG and PCI Chronic congestive heart failure with reduced EF, EF 30-35 Ischemic cardiomyopathy Hypertension Hyperlipidemia PLAN: Decrease Lasix to 20 mg daily. Add hydrochlorothiazide 25 mg daily Continue to monitor kidney function Continue additional cardiac medications Continue to monitor blood pressure Further recommendations pending patient course Nurse practitioner note has been reviewed by physician. Signing provider agrees with the documented findings, assessment, and plan of care. Objective - Vital Signs Vital signs: Vital Signs Temp 98.1 F 01/20/23 09:01 Pulse 65 01/20/23 09:01 Resp 23 01/20/23 09:01 BP 121/80 01/20/23 09:01 Pulse Ox 95 01/20/23 09:34 FiO2 55 01/20/23 09:01 Intake & Output 01/19/23 01/20/23 01/20/23 18:59 06:59 18:59 Intake Total 360 480 Output Total 425 225 Balance -65 -225 480 Weight 116.5 kg Intake: Oral 360 480 Output: Urine 425 225 Stool 0 0 Urine/Stool Mix 0 Emesis 0 Other: Voiding Method Bedside Commode Bedside Commode Bedside Commode # Voids 0 100 # Bowel Movements 0 - Labs CBC & Chem 7: 01/20/23 07:46 01/20/23 07:46 Labs: Abnormal Lab Results - Last 24 Hours (Table) 03/01/20/23 01/20/23 Range/Units 10:46 07:46 07:46 RBC 3.19 L (4.30-5.90) m/uL Hgb 9.1 L (13.0-17.5) gm/dL Hct 29.3 L (39.0-53.0) % RDW 17.0 H (11.5-15.5) % Sodium 136 L 136 L (137-145) mmol/L Potassium 5.5 H (3.5-5.1) mmol/L BUN 38 H 43 H (9-20) mg/dL Creatinine 2.04 H 2.10 H (0.66-1.25) mg/dL Glucose 127 H (74-99) mg/dL Magnesium 2.4 H (1.6-2.3) mg/dL Microbiology - Last 24 Hours (Table) 01/17/23 08:57 Blood Culture - Preliminary Blood No Growth after 48 hours 01/17/23 08:57 Blood Culture Gram Stain - Preliminary Blood Blood Culture - Preliminary Alpha Hemolytic Streptococcus
--- NOTE | 2023-01-20 11:20 | P.PN ---
Subjective Progress Note Date: 01/20/23 Principal diagnosis: Hypotension. Pulmonary/critical care consult dated 01/16/2023. 67-year-old male seen in the emergency room, room 5. The patient has been in the hospital now for the third time be getting from the first of the year. Hospitalized in October, had a PCI done with stent placements, he was hospitalized twice before in December. Currently, he's on 4 L of oxygen. Is getting saline at 50 mL an hour. He is getting norepinephrine at about 26 mcg/m. He came into the emergency room on January 15 complaining of weakness and a low blood pressure. He was transferred in from [facility]. The patient had been taking Lasix, from his prior admission, and apparently was found to have acute kidney injury as well. Currently, he is resting comfortably in the intensive care unit. His primary care physician is Dr. Luis Gee. White count 10.5, hemoglobin 8.9, hematocrit 27.9, within normal platelet count. Coagulation studies were normal. Sodium 134, potassium 4.3, chlorides 98, CO2 24, BUN 42, and creatinine 3.72. His anion gap is normal. His troponin was 1.060, and his N-terminal proBNP was 13,400. Pulmonary progress note dated 01/17/2023. The patient is seen today again in the emergency room, room 5. The patient is currently on 5 L nasal cannula. He is getting saline at 50 mL an hour. He does feel better today. He remains on norepinephrine. It's currently running at 0.15 mcg/kg/m which is right around 14.25 mcg/m. Yesterday, he was on a much higher dose. As mentioned before, he is feeling better. His cortisol level was only 6. He was started on hydrocortisone 50 mg IV push, every 6 hours. Labs today include a sodium 136, potassium 4.5, chlorides 101, CO2 22, anion gap 13, BUN 29, creatinine 2.13. His kidney functions a bit improved. Chest x-ray shows mild fluid overload. Progress note dated 01/18/2023. 67-year-old male who seen today in room 261. Over the last couple of days, he was seen in the emergency department, as there were no beds available in the intensive care unit. The patient has been weaned off and norepinephrine. He is getting oxygen at 3 L. He is getting saline at 50 mL an hour. He feels much improved. He came in with hypotension, and congestive heart failure. White count 6.4, hemoglobin 8.6, hematocrit 27, platelet count 296,000. Sodium 136, potassium 5.4, chlorides 100, CO2 24, BUN 28, and creatinine 1.83. No chest x- ray today. Blood cultures are showing gram-positive bacilli, yet to be identified. Progress note dated 01/19/2023. 67-year-old male, seen today in room 364. He's currently on 3 L of oxygen. He is getting saline at 10 mL an hour. The patient was in the intensive care unit, for a period of time, with hypotension, on norepinephrine. Clinically he is doing much better. Labs today include a sodium 136, potassium 5.5, chlorides 101, CO2 23, anion gap 12, BUN 38, and creatinine 2.04. Pro-calcitonin level is 0.19. Blood cultures were positive for alpha hemolytic streptococci. Currently, the patient is on Rocephin. Progress note dated 01/20/2023. 67-year-old male, seen in room 364. He seems to be doing relatively well. He is on 3 L of oxygen. He's not receiving any IV fluids. He is receiving an infusion of iron. He states he had a pretty uneventful night. White count 9.5, hemoglobin 9.1, hematocrit 29.3, within a normal platelet count. Sodium 136, potassium 4.9, chlorides 101, CO2 22, anion gap 13, BUN 43, and creatinine 2.10. Blood cultures are positive for alpha hemolytic streptococci. Objective - Vital Signs Vital signs: Vital Signs Temp 98.4 F 01/20/23 09:01 Pulse 75 01/20/23 11:16 Resp 16 01/20/23 11:16 BP 123/70 01/20/23 11:16 Pulse Ox 98 01/20/23 11:16 FiO2 Intake & Output 01/19/23 01/20/23 01/20/23 18:59 06:59 18:59 Intake Total 360 480 Output Total 425 225 Balance -65 -225 480 Weight 116.5 kg Intake: Oral 360 480 Output: Urine 425 225 Stool 0 0 Urine/Stool Mix 0 Emesis 0 Other: Voiding Method Bedside Commode Bedside Commode Bedside Commode # Voids 0 100 # Bowel Movements 0 - Exam No acute distress, oriented 3. Currently on 3 L of oxygen. No audible wheezing, use of accessory muscles. HEENT examination is grossly unremarkable. Neck supple. Full range of motion. No adenopathy thyromegaly or neck vein distention. Cardiovascular examination reveals regular rhythm rate. S1-S2 normal. No S3 or S4. No discernible murmur noted. Heart rate 75 bpm. Lungs reveal scattered bilateral rhonchi. No wheezes. No crackles. Saturations are 99% on 3 L. Abdomen soft bowel sounds are heard. No masses or tenderness. Extremities are intact. No cyanosis or clubbing. Trace edema. Skin is without rash or lesion. Neurologic examination is brief but nonfocal. - Labs CBC & Chem 7: 01/20/23 07:46 01/20/23 07:46 Labs: Abnormal Lab Results - Last 24 Hours (Table) 01/19/23 01/20/23 01/20/23 Range/Units 10:46 07:46 07:46 RBC 3.19 L (4.30-5.90) m/uL Hgb 9.1 L (13.0-17.5) gm/dL Hct 29.3 L (39.0-53.0) % RDW 17.0 H (11.5-15.5) % Sodium 136 L 136 L (137-145) mmol/L Potassium 5.5 H (3.5-5.1) mmol/L BUN 38 H 43 H (9-20) mg/dL Creatinine 2.04 H 2.10 H (0.66-1.25) mg/dL Glucose 127 H (74-99) mg/dL Magnesium 2.4 H (1.6-2.3) mg/dL Microbiology - Last 24 Hours (Table) 01/17/23 08:57 Blood Culture - Preliminary Blood No Growth after 48 hours 01/17/23 08:57 Blood Culture Gram Stain - Preliminary Blood Blood Culture - Preliminary Alpha Hemolytic Streptococcus Assessment and Plan Assessment: Weakness, hypotension, and acute kidney injury, possibly related to Lasix administration. Bacteremia, secondary to alpha-hemolytic streptococcus infection. Possible relative adrenal insufficiency. Recent admission to the hospital for congestive heart failure. October admission to the hospital for PCI/stent placement. History of CAD, S/P myocardial infarction. History of CABG. History of COPD. Gastroesophageal reflux disease. History of hyperlipidemia. History of hypertension. History of sleep apnea syndrome. Osteoarthritis. Prior history of tobacco use. History/depression, PTSD. Plan: Plan dated 01/16/2023. The patient is going to be transferred to the intensive care unit. There is no bed available as yet. Clinically, he appears stable. Labs, x-rays, and medications are reviewed. We will continue to follow make recommendations along the way. We will also add some updrafts to his regimen. Prognosis is guarded. Plan dated 01/17/2023. The patient is again seen in the emergency department. His oxygen requirements are bit higher today. He is on 5 L by nasal cannula. He also norepinephrine requirement has come down significantly, but he still on 14.25 mcg/m. The patient's cortisol level was only 6. He was started on hydrocortisone 50 mg IV push, every 6 hours clinically, he feels much better. Labs, x-rays, and medications reviewed. Overall prognosis remains guarded. We will continue to follow make recommendations along the way. Plan dated 01/18/2023. The patient appears to be doing much better. Between him off the norepinephrine for now. The patient will stay in the ICU no. He is on 3 L. He is getting saline at 50 mL an hour. Blood cultures were positive for gram-positive bacilli, which may be a contaminant. We will await identification. Labs, x-ray s, and medications are reviewed. Clinically, he appears to be doing much better. Yesterday he was on 5 L, which is been weaned down to 3 L. 3 days ago, he was on epinephrine at 26 mcg/m, yesterday, at 14 mcg/m, and now he's been weaned off. Plan dated 01/19/2023. Currently, the patient is on Rocephin. Other medications appear to be appropriate. We are going to discontinue the hydrocortisone. We will continue to follow the patient and make recommendations along the way. Labs, x-rays, and medications are all reviewed. Prognosis is guarded. This is the patient's third admission in the last 2 and half to 3 months. Plan dated 01/20/2023. The patient appears to be doing well clinically. He's currently on 3 L, and is denying any significant respiratory issues. Labs, x-rays, and medications are all reviewed. Blood cultures were positive for alpha-hemolytic streptococci. He remains on Rocephin. We will continue to follow and make recommendations along the way. Prognosis is thought to be guarded. Time with Patient: Less than 30
--- NOTE | 2023-01-20 11:51 | P.PN ---
Subjective Patient is seen in follow-up for acute kidney injury on chronic kidney disease. Renal function fairly stable. Dose of Lasix decreased and hydrochlorothiazide added by cardiology. Patient still complaining of edema in lower extremities. Nonoliguric. Denies chest pain or shortness of breath. Vital signs are stable. General: No acute distress. HEENT: Head exam is unremarkable. On nasal cannula. LUNGS: No audible rhonchi or wheezes. HEART: Rate and Rhythm are regular. ABDOMEN: Obese. No distention. EXTREMITITES: 1+ edema. Objective - Vital Signs Vital signs: Vital Signs Temp 98.4 F 01/20/23 09:01 Pulse 75 01/20/23 11:16 Resp 16 01/20/23 11:16 BP 123/70 01/20/23 11:16 Pulse Ox 98 01/20/23 11:16 FiO2 Intake & Output 01/19/23 01/20/23 01/20/23 18:59 06:59 18:59 Intake Total 360 480 Output Total 425 225 Balance -65 -225 480 Weight 116.5 kg Intake: Oral 360 480 Output: Urine 425 225 Stool 0 0 Urine/Stool Mix 0 Emesis 0 Other: Voiding Method Bedside Commode Bedside Commode Bedside Commode # Voids 0 100 # Bowel Movements 0 - Labs CBC & Chem 7: 01/20/23 07:46 01/20/23 07:46 Labs: Abnormal Lab Results - Last 24 Hours (Table) 01/19/23 01/20/23 01/20/23 Range/Units 10:46 07:46 07:46 RBC 3.19 L (4.30-5.90) m/uL Hgb 9.1 L (13.0-17.5) gm/dL Hct 29.3 L (39.0-53.0) % RDW 17.0 H (11.5-15.5) % Sodium 136 L 136 L (137-145) mmol/L Potassium 5.5 H (3.5-5.1) mmol/L BUN 38 H 43 H (9-20) mg/dL Creatinine 2.04 H 2.10 H (0.66-1.25) mg/dL Glucose 127 H (74-99) mg/dL Magnesium 2.4 H (1.6-2.3) mg/dL Microbiology - Last 24 Hours (Table) 01/17/23 08:57 Blood Culture - Preliminary Blood No Growth after 72 hours 01/17/23 08:57 Blood Culture Gram Stain - Preliminary Blood Blood Culture - Preliminary Alpha Hemolytic Streptococcus Assessment and Plan Plan: Assessment: 1. Acute kidney injury secondary to hemodynamic ATN. Creatinine was 3.96 on admission and is stable at 2.1 today. No evidence of urinary retention. No hydronephrosis noted on kidney ultrasound. UA fairly benign. 2. Chronic systolic CHF with ejection fraction of 30-35% and moderate mitral, tricuspid and aortic regurgitation. 3. Hypovolemic hyponatremia improved with IV hydration. Now hypervolemic. 4. Metabolic acidosis secondary to acute kidney injury. Improved. 5. Chronic kidney disease stage IIIa with baseline creatinine 1.1-1.3 secondary to nephrosclerosis. 6. Anemia of chronic kidney disease. Iron deficiency noted. 7. Hypotension secondary to antihypertensive meds and diuretics. Cortisol level in the low end of normal. s/p IV steroids. 8. Strep bacteremia. On antibiotics. 9. Mild hyperkalemia secondary to acute kidney injury. Improved. Plan: Resume IV Lasix 40 mg once daily. Transition to oral Lasix 40 mg once daily upon discharge. Stop hctz. Encouraged oral intake. Maintain IV iron. Continue to monitor renal function and urine output. Maintain midodrine. Hold for systolic blood pressure greater than 115. Avoid nephrotoxins.
[2023-01-20 12:52] VITALS: BMI 37.9
[2023-01-20] MEDS ORDERED: FUROSEMIDE 10 MG/ML 4 ML VIAL IV ONE (16:00)
[2023-01-20] MEDS: CLOPIDOGREL 75 MG TAB PO SCH (20:26)
[2023-01-20] MEDS: ATORVASTATIN 40 MG TAB PO SCH (20:26)
[2023-01-20] MEDS: ALPRAZolam 1 MG TAB PO PRN (20:29)
[2023-01-21] MEDS: ALBUTEROL NEBULIZED 2.5 MG/3 ML INHALATION SCH ×4 (00:27→21:11)
[2023-01-21] MEDS: IPRATROPIUM 0.5 MG/2.5 ML NEBU INHALATION SCH ×4 (00:27→21:11)
[2023-01-21] MEDS: HYDROcodone/APAP 10-325MG 1 EACH TAB PO PRN ×4 (05:57→23:23)
[2023-01-21] MEDS: MIDODRINE 5 MG TAB PO SCH ×3 (05:58→17:24)
--- NOTE | 2023-01-21 06:21 | P.PN ---
Subjective Progress Note Date: 01/21/23 Principal diagnosis: CAD/ CHF The patient is a pleasant 67-year-old gentleman who is known to our service from before with CAD and status post angioplasty of the SVG to LAD in the setting of acute coronary syndrome as well as ischemic cardiomyopathy as well as hypertension and dyslipidemia and chronic kidney disease was admitted to the hospital with presyncope and he was found to be hypotensive. He also was diagnosed with acute renal failure. His cardio myopathy medications all are on hold at this point. He is on midodrine. He is on Lasix IV was started by the nephrology service. January [id number] He was seen and evaluated this morning. He continues to be maintaining normal sinus mechanism. No arrhythmia noted. He reports no pain in the chest and no shortness of breath. He does have 1+ bilateral pedal edema noted. The pressure remains within normal limits on the current medical regimen including midodrine. He is still on Lasix IV at this point. And that has been managed by the nephrology service. He is also on triple therapy. Assessment CAD Ischemic cardiomyopathy Presyncope Acute on chronic renal failure Multiple comorbid conditions Plan Continue the current medical regimen Consider switching the patient to Lasix by mouth, we will discuss with the nephrology service Restart the patient back on the cardiomyopathy medication once the pressure i mproved Consider discussed with the patient and AICD for primary prevention Follow-up with the patient Objective - Vital Signs Vital signs: Vital Signs Temp 97.9 F 01/21/23 04:00 Pulse 78 01/21/23 04:00 Resp 18 01/21/23 04:00 BP 106/60 01/21/23 05:56 Pulse Ox 97 01/21/23 04:00 FiO2 Intake & Output 01/20/23 01/20/23 01/21/23 06:59 18:59 06:59 Intake Total 716 Output Total 912 835 0013 Balance -225 116 -1450 Weight 116.5 kg 116.5 kg 113 kg Intake: Oral 716 Output: Urine 933 563 9923 Stool 0 Other: Voiding Method Bedside Commode Bedside Commode Bedside Commode # Voids 100 2 - Labs CBC & Chem 7: 01/20/23 07:46 01/20/23 07:46 Labs: Abnormal Lab Results - Last 24 Hours (Table) 01/20/23 01/20/23 Range/Units 07:46 07:46 RBC 3.19 L (4.30-5.90) m/uL Hgb 9.1 L (13.0-17.5) gm/dL Hct 29.3 L (39.0-53.0) % RDW 17.0 H (11.5-15.5) % Sodium 136 L (137-145) mmol/L BUN 43 H (9-20) mg/dL Creatinine 2.10 H (0.66-1.25) mg/dL Magnesium 2.4 H (1.6-2.3) mg/dL Microbiology - Last 24 Hours (Table) 01/17/23 08:57 Blood Culture Gram Stain - Final Blood Blood Culture - Final Alpha Hemolytic Streptococcus 01/17/23 08:57 Blood Culture - Preliminary Blood No Growth after 72 hours
[2023-01-21] MEDS: SYMBICORT 160-4.5 MCG INHALER INHALATION SCH ×2 (08:38→21:11)
[2023-01-21] MEDS: EZETIMIBE 10 MG TAB PO SCH (08:47)
[2023-01-21] MEDS: APIXABAN 2.5 MG TABLET PO SCH ×2 (08:47→20:36)
[2023-01-21] MEDS: ASPIRIN 81 MG PO SCH (08:47)
[2023-01-21] MEDS: FUROSEMIDE 10 MG/ML 4 ML VIAL IV SCH (08:47)
[2023-01-21] MEDS ORDERED: FUROSEMIDE 20 MG TAB PO SCH (09:00)
[2023-01-21 09:02] LABS: Calcium 8.7 mg/dL (8.4-10.2); Magnesium 2.1 mg/dL (1.6-2.3); Potassium 3.6 mmol/L (3.5-5.1)
--- NOTE | 2023-01-21 12:00 | P.PN ---
Subjective Progress Note Date: 01/21/23 Principal diagnosis: Hypotension. Pulmonary/critical care consult dated 01/16/2023. 67-year-old male seen in the emergency room, room 5. The patient has been in the hospital now for the third time be getting from the first of the year. Hospitalized in October, had a PCI done with stent placements, he was hospitalized twice before in December. Currently, he's on 4 L of oxygen. Is getting saline at 50 mL an hour. He is getting norepinephrine at about 26 mcg/m. He came into the emergency room on January 15 complaining of weakness and a low blood pressure. He was transferred in from [facility]. The patient had been taking Lasix, from his prior admission, and apparently was found to have acute kidney injury as well. Currently, he is resting comfortably in the intensive care unit. His primary care physician is Dr. Luis Gee. White count 10.5, hemoglobin 8.9, hematocrit 27.9, within normal platelet count. Coagulation studies were normal. Sodium 134, potassium 4.3, chlorides 98, CO2 24, BUN 42, and creatinine 3.72. His anion gap is normal. His troponin was 1.060, and his N-terminal proBNP was 13,400. Pulmonary progress note dated 01/17/2023. The patient is seen today again in the emergency room, room 5. The patient is currently on 5 L nasal cannula. He is getting saline at 50 mL an hour. He does feel better today. He remains on norepinephrine. It's currently running at 0.15 mcg/kg/m which is right around 14.25 mcg/m. Yesterday, he was on a much higher dose. As mentioned before, he is feeling better. His cortisol level was only 6. He was started on hydrocortisone 50 mg IV push, every 6 hours. Labs today include a sodium 136, potassium 4.5, chlorides 101, CO2 22, anion gap 13, BUN 29, creatinine 2.13. His kidney functions a bit improved. Chest x-ray shows mild fluid overload. Progress note dated 01/18/2023. 67-year-old male who seen today in room 261. Over the last couple of days, he was seen in the emergency department, as there were no beds available in the intensive care unit. The patient has been weaned off and norepinephrine. He is getting oxygen at 3 L. He is getting saline at 50 mL an hour. He feels much improved. He came in with hypotension, and congestive heart failure. White count 6.4, hemoglobin 8.6, hematocrit 27, platelet count 296,000. Sodium 136, potassium 5.4, chlorides 100, CO2 24, BUN 28, and creatinine 1.83. No chest x- ray today. Blood cultures are showing gram-positive bacilli, yet to be identified. Progress note dated 01/19/2023. 67-year-old male, seen today in room 364. He's currently on 3 L of oxygen. He is getting saline at 10 mL an hour. The patient was in the intensive care unit, for a period of time, with hypotension, on norepinephrine. Clinically he is doing much better. Labs today include a sodium 136, potassium 5.5, chlorides 101, CO2 23, anion gap 12, BUN 38, and creatinine 2.04. Pro-calcitonin level is 0.19. Blood cultures were positive for alpha hemolytic streptococci. Currently, the patient is on Rocephin. Progress note dated 01/20/2023. 67-year-old male, seen in room 364. He seems to be doing relatively well. He is on 3 L of oxygen. He's not receiving any IV fluids. He is receiving an infusion of iron. He states he had a pretty uneventful night. White count 9.5, hemoglobin 9.1, hematocrit 29.3, within a normal platelet count. Sodium 136, potassium 4.9, chlorides 101, CO2 22, anion gap 13, BUN 43, and creatinine 2.10. Blood cultures are positive for alpha hemolytic streptococci. Progress note dated 01/21/2023. 67-year-old male seen again in room 364. He is currently doing very well, and is currently on 3 L of oxygen. He is not receiving any IV fluids. His breathing is much improved. He denies any significant shortness of breath, cough, wheezing, phlegm production, chest pain, or phlegm production. No fever or chills. Labs today include a sodium 138, potassium 3.6, chlorides 99, CO2 27, anion gap 12, BUN 40, creatinine 1.82. His most recent pro-calcitonin level was 0.19, back on January 18. Objective - Vital Signs Vital signs: Vital Signs Temp 97.9 F 03/25/23 04:00 Pulse 83 01/21/23 11:41 Resp 17 01/21/23 11:41 BP 117/65 01/21/23 11:41 Pulse Ox 95 01/21/23 11:41 FiO2 21 01/21/23 08:38 Intake & Output 01/20/23 01/21/23 01/21/23 18:59 06:59 18:59 Intake Total 716 240 Output Total 600 1450 1050 Balance 116 -1450 -810 Weight 116.5 kg 113 kg Intake: Oral 716 240 Output: Urine 600 1450 1050 Other: Voiding Method Bedside Commode Bedside Commode Bedside Commode Urinal # Voids 2 2 - Exam No acute distress, oriented 3. Currently on 3 L of oxygen. No audible wheezing, use of accessory muscles. HEENT examination is grossly unremarkable. Neck supple. Full range of motion. No adenopathy thyromegaly or neck vein distention. Cardiovascular examination reveals regular rhythm rate. S1-S2 normal. No S3 or S4. No discernible murmur noted. Heart rate 83 bpm. Lungs reveal scattered bilateral rhonchi. No wheezes. No crackles. Saturations are 97 % on 3 L. Breath sounds are much improved. Abdomen soft bowel sounds are heard. No masses or tenderness. Extremities are intact. No cyanosis or clubbing. Trace edema. Skin is without rash or lesion. Neurologic examination is brief but nonfocal. - Labs CBC & Chem 7: 01/20/23 07:46 01/21/23 08:18 Labs: Abnormal Lab Results - Last 24 Hours (Table) 01/21/23 Range/Units 08:18 BUN 40 H (9-20) mg/dL Creatinine 1.82 H (0.66-1.25) mg/dL Glucose 130 H (74-99) mg/dL Microbiology - Last 24 Hours (Table) 01/17/23 08:57 Blood Culture - Preliminary Blood No Growth after 96 hours 01/17/23 08:57 Blood Culture Gram Stain - Final Blood Blood Culture - Final Alpha Hemolytic Streptococcus Assessment and Plan Assessment: Weakness, hypotension, and acute kidney injury, possibly related to Lasix administration. Bacteremia, secondary to alpha-hemolytic streptococcus infection. Possible relative adrenal insufficiency. Recent admission to the hospital for congestive heart failure. October admission to the hospital for PCI/stent placement. History of CAD, S/P myocardial infarction. History of CABG. History of COPD. Gastroesophageal reflux disease. History of hyperlipidemia. History of hypertension. History of sleep apnea syndrome. Osteoarthritis. Prior history of tobacco use. History/depression, PTSD. Plan: Plan dated 01/16/2023. The patient is going to be transferred to the intensive care unit. There is no bed available as yet. Clinically, he appears stable. Labs, x-rays, and medications are reviewed. We will continue to follow make recommendations along the way. We will also add some updrafts to his regimen. Prognosis is guarded. Plan dated 01/17/2023. The patient is again seen in the emergency department. His oxygen requirements are bit higher today. He is on 5 L by nasal cannula. He also norepinephrine requirement has come down significantly, but he still on 14.25 mcg/m. The pat ient's cortisol level was only 6. He was started on hydrocortisone 50 mg IV push, every 6 hours clinically, he feels much better. Labs, x-rays, and medications reviewed. Overall prognosis remains guarded. We will continue to follow make recommendations along the way. Plan dated 01/18/2023. The patient appears to be doing much better. Between him off the norepinephrine for now. The patient will stay in the ICU no. He is on 3 L. He is getting saline at 50 mL an hour. Blood cultures were positive for gram-positive bacilli, which may be a contaminant. We will await identification. Labs, x- rays, and medications are reviewed. Clinically, he appears to be doing much better. Yesterday he was on 5 L, which is been weaned down to 3 L. 3 days ago, he was on epinephrine at 26 mcg/m, yesterday, at 14 mcg/m, and now he's been weaned off. Plan dated 01/19/2023. Currently, the patient is on Rocephin. Other medications appear to be appropriate. We are going to discontinue the hydrocortisone. We will continue to follow the patient and make recommendations along the way. Labs, x-rays, and medications are all reviewed. Prognosis is guarded. This is the patient's third admission in the last 2 and half to 3 months. Plan dated 01/20/2023. The patient appears to be doing well clinically. He's currently on 3 L, and is denying any significant respiratory issues. Labs, x-rays, and medications are all reviewed. Blood cultures were positive for alpha-hemolytic streptococci. He remains on Rocephin. We will continue to follow and make recommendations along the way. Prognosis is thought to be guarded. Plan dated 01/21/2023. Patient appears to be doing relatively well. He's been weaned down to 3 L of oxygen. Clinically, he's feeling better. Labs, x-rays, and medications are reviewed. The patient is hoping to be discharged soon. Blood cultures were positive for alpha-hemolytic streptococci. He remains on ceftriaxone. We will continue to follow make recommendations along the way. Prognosis is guarded. Time with Patient: Less than 30
[2023-01-21 12:12] LABS: Glucose,Whole Blood 75 mg/dL (70-110)
--- NOTE | 2023-01-21 12:15 | P.PN ---
Subjective Patient is seen for follow-up for acute kidney injury and top of chronic kidney disease. No significant complaints today Lasix was restarted yesterday. No complaints of chest pains or shortness of breath. Serum creatinine 1.8 from 2.1 yesterday Objective - Vital Signs Vital signs: Vital Signs Temp 97.9 F 01/21/23 04:00 Pulse 83 01/21/23 11:41 Resp 17 01/21/23 11:41 BP 117/65 01/21/23 11:41 Pulse Ox 95 01/21/23 11:41 FiO2 21 01/21/23 08:38 Intake & Output 01/20/23 01/21/23 01/21/23 18:59 06:59 18:59 Intake Total 716 240 Output Total 600 1450 1050 Balance 116 -1450 -810 Weight 116.5 kg 113 kg Intake: Oral 716 240 Output: Urine 600 1450 1050 Other: Voiding Method Bedside Commode Bedside Commode Bedside Commode Urinal # Voids 2 2 - Exam Awake, comfortable, no acute distress Examination of the heart S1 and S2 Examination lungs bilateral breath sounds are heard Abdomen is soft nontender Examination lower extremities shows 1+ edema bilaterally 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 Acute kidney injury secondary to hemodynamic ATN. Creatinine was 3.96 on admission and is stable at 2.1 today. No evidence of urinary retention. No hydronephrosis noted on kidney ultrasound. UA fairly benign. 2. Chronic systolic CHF with ejection fraction of 30-35% and moderate mitral, tricuspid and aortic regurgitation. 3. Hypovolemic hyponatremia improved with IV hydration. Now hypervolemic. 4. Metabolic acidosis secondary to acute kidney injury. Improved. 5. Chronic kidney disease stage IIIa with baseline creatinine 1.1-1.3 secondary to nephrosclerosis. 6. Anemia of chronic kidney disease. Iron deficiency noted. 7. Hypotension secondary to antihypertensive meds and diuretics. Cortisol level in the low end of normal. s/p IV steroids. 8. Strep bacteremia. On antibiotics. 9. Mild hyperkalemia secondary to acute kidney injury. Improved Plan: May continue with the IV Lasix Repeat labs in a.m. Continue with midodrine Encourage increased oral intake
[2023-01-21] MEDS: ALPRAZolam 1 MG TAB PO PRN (17:27)
[2023-01-21] MEDS: ATORVASTATIN 40 MG TAB PO SCH (20:36)
[2023-01-21] MEDS: CLOPIDOGREL 75 MG TAB PO SCH (20:36)
--- NOTE | 2023-01-21 21:24 | PN ---
PROGRESS NOTE DATE OF SERVICE: 01/20/2023 CHIEF COMPLAINT: Congestive heart failure with hypotension due to dehydration. HISTORY OF PRESENT ILLNESS: This gentleman is doing fairly well, but when his oxygen is taken off, his PO2 drops into the 80s. He states that he feels fine. He has had no chest pain. PHYSICAL EXAMINATION: CHEST: Fairly clear. CARDIAC: Normal. ABDOMEN: Soft, nontender. IMPRESSION: 1. Acute on chronic congestive heart failure. 2. Dehydration with hypotension. 3. Coronary artery disease. 4. Atherosclerotic cardiomyopathy. 5. Hyperlipidemia. PLAN: Continue to try to increase his activity and, hopefully, wean him off oxygen. MMODL / IJN: [id number] /
--- NOTE | 2023-01-21 21:53 | PN ---
PROGRESS NOTE DATE OF SERVICE: 01/21/2023 CHIEF COMPLAINT: Syncope due to dehydration. HISTORY OF PRESENT ILLNESS: This gentleman states he is doing well. He still is requiring oxygen. When he takes his oxygen off, he drops down into the 80s and he gets quite dyspneic when he is up walking. REVIEW OF SYSTEMS: He denies any chest pain, focal neurologic issues, etc. PHYSICAL EXAMINATION: CHEST: Quite clear. CARDIAC: Normal. ABDOMEN: Soft and nontender. IMPRESSION: 1. Dehydration and syncope secondary to diuretic use. 2. Acute on chronic congestive heart failure. 3. Coronary artery disease. 4. COPD. 5. Hyperlipidemia. PLAN: Continue to try to increase activity and move about without oxygen as much as possible. MMODL / IJN: [id number] /
[2023-01-22] MEDS: HYDROcodone/APAP 10-325MG 1 EACH TAB PO PRN ×3 (06:27→21:36)
[2023-01-22] MEDS: MIDODRINE 5 MG TAB PO SCH ×3 (06:27→16:36)
--- NOTE | 2023-01-22 08:17 | P.PN ---
Subjective Progress Note Date: 01/22/23 Principal diagnosis: CAD/ CHF The patient is a pleasant 67-year-old gentleman who is known to our service from before with CAD and status post angioplasty of the SVG to LAD in the setting of acute coronary syndrome as well as ischemic cardiomyopathy as well as hypertension and dyslipidemia and chronic kidney disease was admitted to the hospital with presyncope and he was found to be hypotensive. He also was diagnosed with acute renal failure. His cardio myopathy medications all are on hold at this point. He is on midodrine. He is on Lasix IV was started by the nephrology service. January [id number] He was seen and evaluated this morning. He continues to be maintaining normal sinus mechanism. No arrhythmia noted. He reports no pain in the chest and no shortness of breath. He does have 1+ bilateral pedal edema noted. The pressure remains within normal limits on the current medical regimen including midodrine. He is still on Lasix IV at this point. And that has been managed by the nephrology service. He is also on triple therapy. January [id number]. The patient was seen and evaluated this morning. He stated that he is feeling better. His kidney function is improved compared to yesterday. Currently he is not on any medications for the cardiomyopathy because of the margin a low blood pressure but the pressure has been somewhat better. He is on triple therapy with antiplatelet and anticoagulation which we are going to continue. We will check with the nephrology service if his safe to start the patient on a small dose of beta dorinda for cardiomyopathy. The urine output has been good. He continues to be on Lasix IV. The creatinine is better this morning. On examination he does not look in any pain or distress with stable vital signs including soft blood pressure and regular rhythm was diminished breathing sounds bilaterally and mild bilateral lower extremities Assessment CAD, extensive with revascularization surgically and percutaneous Ischemic cardiomyopathy Presyncope related to low blood pressure Acute on chronic renal failure Congestive heart failure exacerbation secondary to heart failure with reduced ejection fraction Plan Continue the current medical regimen The IV Lasix to be managed by the nephrology service Consider starting the patient on small dose of beta dorinda for cardiomyopathy Continue triple therapy including anticoagulation and antiplatelet Continue monitor the kidney function and electrolytes and hemoglobin Follow-up with the patient Objective - Vital Signs Vital signs: Vital Signs Temp 97.8 F 01/22/23 07:47 Pulse 88 01/22/23 07:48 Resp 17 01/22/23 07:47 BP 109/54 01/22/23 07:47 Pulse Ox 97 01/22/23 07:47 FiO2 21 01/21/23 08:38 Intake & Output 01/21/23 01/22/23 01/22/23 18:59 06:59 18:59 Intake Total 477 540 Output Total 1600 750 Balance -1123 -210 Weight 113.5 kg Intake: Oral 477 540 Output: Urine 1600 750 Other: Voiding Method Bedside Commode Bedside Commode Bedside Commode Urinal Urinal Urinal # Voids 1 - Labs CBC & Chem 7: 01/20/23 07:46 01/21/23 08:18 Labs: Abnormal Lab Results - Last 24 Hours (Table) 01/21/23 Range/Units 08:18 BUN 40 H (9-20) mg/dL Creatinine 1.82 H (0.66-1.25) mg/dL Glucose 130 H (74-99) mg/dL Microbiology - Last 24 Hours (Table) 01/17/23 08:57 Blood Culture - Preliminary Blood No Growth after 96 hours
[2023-01-22] MEDS: IPRATROPIUM 0.5 MG/2.5 ML NEBU INHALATION SCH ×3 (08:24→20:09)
[2023-01-22] MEDS: SYMBICORT 160-4.5 MCG INHALER INHALATION SCH ×2 (08:24→20:08)
[2023-01-22] MEDS: ALBUTEROL NEBULIZED 2.5 MG/3 ML INHALATION SCH ×3 (08:24→20:08)
[2023-01-22] MEDS: APIXABAN 2.5 MG TABLET PO SCH ×2 (09:32→21:37)
[2023-01-22] MEDS: ASPIRIN 81 MG PO SCH (09:32)
[2023-01-22] MEDS: FUROSEMIDE 10 MG/ML 4 ML VIAL IV SCH (09:32)
[2023-01-22] MEDS: EZETIMIBE 10 MG TAB PO SCH (09:32)
--- NOTE | 2023-01-22 11:36 | P.PN ---
Subjective Progress Note Date: 01/22/23 Principal diagnosis: Hypotension. Pulmonary/critical care consult dated 01/16/2023. 67-year-old male seen in the emergency room, room 5. The patient has been in the hospital now for the third time be getting from the first of the year. Hospitalized in October, had a PCI done with stent placements, he was hospitalized twice before in December. Currently, he's on 4 L of oxygen. Is getting saline at 50 mL an hour. He is getting norepinephrine at about 26 mcg/m. He came into the emergency room on January 15 complaining of weakness and a low blood pressure. He was transferred in from [facility]. The patient had been taking Lasix, from his prior admission, and apparently was found to have acute kidney injury as well. Currently, he is resting comfortably in the intensive care unit. His primary care physician is Dr. Luis Gee. White count 10.5, hemoglobin 8.9, hematocrit 27.9, within normal platelet count. Coagulation studies were normal. Sodium 134, potassium 4.3, chlorides 98, CO2 24, BUN 42, and creatinine 3.72. His anion gap is normal. His troponin was 1.060, and his N-terminal proBNP was 13,400. Pulmonary progress note dated 01/17/2023. The patient is seen today again in the emergency room, room 5. The patient is currently on 5 L nasal cannula. He is getting saline at 50 mL an hour. He does feel better today. He remains on norepinephrine. It's currently running at 0.15 mcg/kg/m which is right around 14.25 mcg/m. Yesterday, he was on a much higher dose. As mentioned before, he is feeling better. His cortisol level was only 6. He was started on hydrocortisone 50 mg IV push, every 6 hours. Labs today include a sodium 136, potassium 4.5, chlorides 101, CO2 22, anion gap 13, BUN 29, creatinine 2.13. His kidney functions a bit improved. Chest x-ray shows mild fluid overload. Progress note dated 01/18/2023. 67-year-old male who seen today in room 261. Over the last couple of days, he was seen in the emergency department, as there were no beds available in the intensive care unit. The patient has been weaned off and norepinephrine. He is getting oxygen at 3 L. He is getting saline at 50 mL an hour. He feels much improved. He came in with hypotension, and congestive heart failure. White count 6.4, hemoglobin 8.6, hematocrit 27, platelet count 296,000. Sodium 136, potassium 5.4, chlorides 100, CO2 24, BUN 28, and creatinine 1.83. No chest x- ray today. Blood cultures are showing gram-positive bacilli, yet to be identified. Progress note dated 01/19/2023. 67-year-old male, seen today in room 364. He's currently on 3 L of oxygen. He is getting saline at 10 mL an hour. The patient was in the intensive care unit, for a period of time, with hypotension, on norepinephrine. Clinically he is doing much better. Labs today include a sodium 136, potassium 5.5, chlorides 101, CO2 23, anion gap 12, BUN 38, and creatinine 2.04. Pro-calcitonin level is 0.19. Blood cultures were positive for alpha hemolytic streptococci. Currently, the patient is on Rocephin. Progress note dated 01/20/2023. 67-year-old male, seen in room 364. He seems to be doing relatively well. He is on 3 L of oxygen. He's not receiving any IV fluids. He is receiving an infusion of iron. He states he had a pretty uneventful night. White count 9.5, hemoglobin 9.1, hematocrit 29.3, within a normal platelet count. Sodium 136, potassium 4.9, chlorides 101, CO2 22, anion gap 13, BUN 43, and creatinine 2.10. Blood cultures are positive for alpha hemolytic streptococci. Progress note dated 01/21/2023. 67-year-old male seen again in room 364. He is currently doing very well, and is currently on 3 L of oxygen. He is not receiving any IV fluids. His breathing is much improved. He denies any significant shortness of breath, cough, wheezing, phlegm production, chest pain, or phlegm production. No fever or chills. Labs today include a sodium 138, potassium 3.6, chlorides 99, CO2 27, anion gap 12, BUN 40, creatinine 1.82. His most recent pro-calcitonin level was 0.19, back on January 18. Progress note dated 01/22/2023. The patient is seen today in room 364. This is a 67-year-old male, who was admitted with a diagnosis of hypotension. The patient was initially in the emergency room, on norepinephrine for 2 days. Currently, he's not receiving any IV fluids. He remains on oxygen at 3 L. He is hoping to be discharged on Monday. There are no new labs today. Blood cultures from January 17 showed a lpha-hemolytic streptococcus. Objective - Vital Signs Vital signs: Vital Signs Temp 97.8 F 01/22/23 07:47 Pulse 88 01/22/23 08:40 Resp 17 01/22/23 07:47 BP 109/54 01/22/23 07:47 Pulse Ox 97 01/22/23 07:47 FiO2 01/21/23 08:38 Intake & Output 01/21/23 01/22/23 01/22/23 18:59 06:59 18:59 Intake Total 477 540 480 Output Total 1600 750 600 Balance -1123 -210 -120 Weight 113.5 kg Intake: Oral 477 540 480 Output: Urine 1600 750 600 Other: Voiding Method Bedside Commode Bedside Commode Bedside Commode Urinal Urinal Urinal # Voids 1 1 - Exam No acute distress, oriented 3. Currently on 3 L of oxygen. No audible wheezing, use of accessory muscles. HEENT examination is grossly unremarkable. Neck supple. Full range of motion. No adenopathy thyromegaly or neck vein distention. Cardiovascular examination reveals regular rhythm rate. S1-S2 normal. No S3 or S4. No discernible murmur noted. Heart rate 88 bpm. heart sounds are distant. Lungs reveal scattered bilateral rhonchi. No wheezes. No crackles. Saturations are 97 % on 3 L. Breath sounds are much improved. Abdomen soft bowel sounds are heard. No masses or tenderness. Extremities are intact. No cyanosis or clubbing. Trace edema. Skin is without rash or lesion. Neurologic examination is brief but nonfocal. - Labs CBC & Chem 7: 01/20/23 07:46 01/21/23 08:18 Labs: Microbiology - Last 24 Hours (Table) 01/17/23 08:57 Blood Culture - Preliminary Blood No Growth after 120 hours Assessment and Plan Assessment: Weakness, hypotension, and acute kidney injury, possibly related to Lasix administration. Bacteremia, secondary to alpha-hemolytic streptococcus infection. Possible relative adrenal insufficiency. Recent admission to the hospital for congestive heart failure. October admission to the hospital for PCI/stent placement. History of CAD, S/P myocardial infarction. History of CABG. History of COPD. Gastroesophageal reflux disease. History of hyperlipidemia. History of hypertension. History of sleep apnea syndrome. Osteoarthritis. Prior history of tobacco use. History/depression, PTSD. Plan: Plan dated 01/16/2023. The patient is going to be transferred to the intensive care unit. There is no bed available as yet. Clinically, he appears stable. Labs, x-rays, and medications are reviewed. We will continue to follow make recommendations along the way. We will also add some updrafts to his regimen. Prognosis is guarded. Plan dated 01/17/2023. The patient is again seen in the emergency department. His oxygen requirements are bit higher today. He is on 5 L by nasal cannula. He also norepinephrine requirement has come down significantly, but he still on 14.25 mcg/m. The patient's cortisol level was only 6. He was started on hydrocortisone 50 mg IV push, every 6 hours clinically, he feels much better. Labs, x-rays, and medications reviewed. Overall prognosis remains guarded. We will continue to follow make recommendations along the way. Plan dated 01/18/2023. The patient appears to be doing much better. Between him off the norepinephrine for now. The patient will stay in the ICU no. He is on 3 L. He is getting saline at 50 mL an hour. Blood cultures were positive for gram-positive bacilli, which may be a contaminant. We will await identification. Labs, x- rays, and medications are reviewed. Clinically, he appears to be doing much better. Yesterday he was on 5 L, which is been weaned down to 3 L. 3 days ago, he was on epinephrine at 26 mcg/m, yesterday, at 14 mcg/m, and now he's been weaned off. Plan dated 01/19/2023. Currently, the patient is on Rocephin. Other medications appear to be appropriate. We are going to discontinue the hydrocortisone. We will continue to follow the patient and make recommendations along the way. Labs, x-rays, and medications are all reviewed. Prognosis is guarded. This is the patient's third admission in the last 2 and half to 3 months. Plan dated 01/20/2023. The patient appears to be doing well clinically. He's currently on 3 L, and is denying any significant respiratory issues. Labs, x-rays, and medications are all reviewed. Blood cultures were positive for alpha-hemolytic streptococci. He remains on Rocephin. We will continue to follow and make recommendations along the way. Prognosis is thought to be guarded. Plan dated 01/21/2023. Patient appears to be doing relatively well. He's been weaned down to 3 L of oxygen. Clinically, he's feeling better. Labs, x-rays, and medications are reviewed. The patient is hoping to be discharged soon. Blood cultures were positive for alpha-hemolytic streptococci. He remains on ceftriaxone. We will continue to follow make recommendations along the way. Prognosis is guarded. Plan dated 01/22/2023. The patient appears to be doing relatively well. He's feeling much improved. He mentions today that he will likely be discharged in the morning. He remains on 3 L of oxygen. Saturations are between 97 and 98%. Labs, x-rays, and medications are all reviewed. The patient remains on Rocephin for his bacteremia, with alpha-hemolytic streptococci. We will continue to follow make recommendations along the way. Prognosis is guarded. Time with Patient: Less than 30
--- NOTE | 2023-01-22 12:06 | P.PN ---
Subjective Patient is seen for follow-up for acute kidney injury and top of chronic kidney disease. No significant complaints today Maintained on IV Lasix daily No complaints of chest pains or shortness of breath. Serum creatinine 1.8 from 2.1. No labs today Objective - Vital Signs Vital signs: Vital Signs Temp 97.8 F 01/22/23 07:47 Pulse 88 01/22/23 08:40 Resp 17 01/22/23 07:47 BP 109/54 01/22/23 07:47 Pulse Ox 97 01/22/23 07:47 FiO2 21 01/21/23 08:38 Intake & Output 01/21/23 01/22/23 01/22/23 18:59 06:59 18:59 Intake Total 477 540 480 Output Total 1600 750 600 Balance -1123 -210 -120 Weight 113.5 kg Intake: Oral 477 540 480 Output: Urine 1600 750 600 Other: Voiding Method Bedside Commode Bedside Commode Bedside Commode Urinal Urinal Urinal # Voids 1 1 - Exam Awake, comfortable, no acute distress Examination of the heart S1 and S2 Examination lungs bilateral breath sounds are heard Abdomen is soft nontender Examination lower extremities shows 2+ edema bilaterally 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 Acute kidney injury secondary to hemodynamic ATN. Creatinine was 3.96 on admission and decreased to 1.8. No evidence of urinary retention. No hydronephrosis noted on kidney ultrasound. UA fairly benign. 2. Chronic systolic CHF with ejection fraction of 30-35% and moderate mitral, tricuspid and aortic regurgitation. 3. Hypovolemic hyponatremia improved with IV hydration. Now hypervolemic. 4. Metabolic acidosis secondary to acute kidney injury. Improved. 5. Chronic kidney disease stage IIIa with baseline creatinine 1.1-1.3 secondary to nephrosclerosis. 6. Anemia of chronic kidney disease. Iron deficiency noted. 7. Hypotension secondary to antihypertensive meds and diuretics. Cortisol level in the low end of normal. s/p IV steroids. 8. Strep bacteremia. On antibiotics. 9. Mild hyperkalemia secondary to acute kidney injury. Improved Plan: May continue with the IV Lasix Repeat labs in a.m. Continue with midodrine Encourage increased oral intake
[2023-01-22] MEDS: ALPRAZolam 1 MG TAB PO PRN (16:01)
[2023-01-22] MEDS: CLOPIDOGREL 75 MG TAB PO SCH (21:36)
[2023-01-22] MEDS: ATORVASTATIN 40 MG TAB PO SCH (21:37)
[2023-01-23] MEDS: ALPRAZolam 1 MG TAB PO PRN ×2 (00:14→09:20)
--- NOTE | 2023-01-23 04:21 | PN ---
PROGRESS NOTE DATE OF SERVICE: 01/22/2023 CHIEF COMPLAINT: Coronary artery disease and congestive heart failure. HISTORY OF PRESENT ILLNESS: This gentleman is doing fairly well, but he is still reliant on oxygen. It turns out he does have oxygen at home, which I did not remember. PHYSICAL EXAMINATION: CHEST: Fairly clear. CARDIAC: Normal. ABDOMEN: Soft, nontender. He is able to move without oxygen. He drops down in the mid 80s. IMPRESSION: 1. Acute on chronic congestive heart failure. 2. Coronary artery disease. 3. Chronic obstructive pulmonary disease. PLAN: Try to see if the patient can be oxygen independent. If not, he can probably go home in the next day or 2. MMODL / IJN: [id number] /
[2023-01-23] MEDS: HYDROcodone/APAP 10-325MG 1 EACH TAB PO PRN (06:35)
[2023-01-23] MEDS: MIDODRINE 5 MG TAB PO SCH ×2 (06:36→12:23)
[2023-01-23] MEDS: ALBUTEROL NEBULIZED 2.5 MG/3 ML INHALATION SCH ×2 (08:16→11:50)
[2023-01-23] MEDS: SYMBICORT 160-4.5 MCG INHALER INHALATION SCH (08:16)
[2023-01-23] MEDS: IPRATROPIUM 0.5 MG/2.5 ML NEBU INHALATION SCH ×2 (08:16→12:10)
[2023-01-23] MEDS: EZETIMIBE 10 MG TAB PO SCH (09:18)
[2023-01-23] MEDS: ASPIRIN 81 MG PO SCH (09:18)
[2023-01-23] MEDS: FUROSEMIDE 10 MG/ML 4 ML VIAL IV SCH (09:18)
[2023-01-23] MEDS: APIXABAN 2.5 MG TABLET PO SCH (09:18)
[2023-01-23 11:17] VITALS: BP 110/64; PULSE 78; RESP 20; TEMP 98
[2023-01-23 12:28] LABS: Potassium 3.4 mmol/L (3.5-5.1)
--- NOTE | 2023-01-23 12:57 | XR ---
EXAMINATION TYPE: XR chest 1V DATE OF EXAM: 01/23/2023 HISTORY: Shortness of breath. COMPARISON: 01/17/2023 TECHNIQUE: Single view of the chest is submitted. FINDINGS: Demonstrated are scattered senescent parenchymal change. Cardiomegaly with pulmonary venous congestion and interstitial edema with a right-sided effusion. Ove rall stable chest. Hilar and mediastinal structures are within normal limits. Degenerative changes are seen of the dorsal spine. IMPRESSION: 1. Findings felt to reflect congestive failure. Infiltrates of other etiology not excluded. Correlat e clinically.
[2023-01-23] MEDS ORDERED: CEPHALEXIN 500 MG CAP PO SCH (13:00)
[2023-01-23] MEDS ORDERED: POTASSIUM CHLORIDE ER 20 MEQ TAB.ER PO STA (13:12)
--- NOTE | 2023-01-23 13:15 | P.PN ---
Subjective Progress Note Date: 01/23/23 CAD/ CHF The patient is a pleasant 67-year-old gentleman who is known to our service from before with CAD and status post angioplasty of the SVG to LAD in the setting of acute coronary syndrome as well as ischemic cardiomyopathy as well as hypertension and dyslipidemia and chronic kidney disease was admitted to the hospital with presyncope and he was found to be hypotensive. He also was diagnosed with acute renal failure. His cardio myopathy medications all are on hold at this point. He is on midodrine. He is on Lasix IV was started by the nephrology service. January [id number] He was seen and evaluated this morning. He continues to be maintaining normal sinus mechanism. No arrhythmia noted. He reports no pain in the chest and no shortness of breath. He does have 1+ bilateral pedal edema noted. The pressure remains within normal limits on the current medical regimen including midodrine. He is still on Lasix IV at this point. And that has been managed by the nephrology service. He is also on triple therapy. January [id number]. The patient was seen and evaluated this morning. He stated that he is feeling better. His kidney function is improved compared to yesterday. Currently he is not on any medications for the cardiomyopathy because of the margin a low blood pressure but the pressure has been somewhat better. He is on triple therapy with antiplatelet and anticoagulation which we are going to continue. We will check with the nephrology service if his safe to start the patient on a small dose of beta dorinda for cardiomyopathy. The urine output has been good. He c ontinues to be on Lasix IV. The creatinine is better this morning. On examination he does not look in any pain or distress with stable vital signs including soft blood pressure and regular rhythm was diminished breathing sounds bilaterally and mild bilateral lower extremities 01/23 Heart rate and blood pressure are stable. health care analyst is sinus rhythm. Repeat blood work reveals potassium of 3.4, BUN 25 creatinine 1.21. Potassium will be replaced. Physical Examination Gen: This is a 67-year-old obese male. He is resting comfortably in bed, no acute distress. HEENT: Head is atraumatic, normocephalic. Pupils equal, round. Sclerae is anicteric. NECK: Supple. No JVD. LUNGS: Diminished breath sounds bilaterally. No intercostal retractions. HEART: Regular rate and rhythm. No murmur. ABDOMEN: Soft. Bowel sounds are present. No masses. No tenderness. EXTREMITIES: Mild pedal edema. No calf tenderness. NEUROLOGICAL: Patient is awake, alert and oriented x3. Assessment CAD, extensive with revascularization surgically and percutaneous Ischemic cardiomyopathy Presyncope related to low blood pressure Acute on chronic renal failure Chronic systolic heart failure exacerbation secondary to heart failure with reduced ejection fraction Plan Continue the current medical regimen The IV Lasix to be managed by the nephrology service Continue triple therapy including anticoagulation and antiplatelet Cardiology will follow on an as-needed basis. Please reconsult for any new concerns. Nurse practitioner note has been reviewed, I agree with the documented findings and plan of care. Patient was seen and examined. Objective - Vital Signs Vital signs: Vital Signs Temp 98.1 F 01/23/23 04:00 Pulse 76 01/23/23 08:20 Resp 16 01/23/23 04:00 BP 106/59 01/23/23 04:00 Pulse Ox 96 01/23/23 08:20 FiO2 21 01/21/23 08:38 Intake & Output 01/22/23 01/23/23 01/23/23 18:59 06:59 18:59 Intake Total 600 480 Output Total 1470 200 Balance -870 -200 480 Weight 111.5 kg Intake: Oral 600 480 Output: Urine 1470 200 Other: Voiding Method Bedside Commode Urinal Urinal # Voids 1 - Labs CBC & Chem 7: 01/20/23 07:46 01/23/23 11:52 Labs: Microbiology - Last 24 Hours (Table) 01/17/23 08:57 Blood Culture - Preliminary Blood No Growth after 120 hours
--- NOTE | 2023-01-23 13:17 | P.PN ---
Subjective Progress Note Date: 01/23/23 67-year-old male seen in the emergency room, room 5. The patient has been in the hospital now for the third time be getting from the first of the year. Hospitalized in October, had a PCI done with stent placements, he was hospitalized twice before in December. Currently, he's on 4 L of oxygen. Is getting saline at 50 mL an hour. He is getting norepinephrine at about 26 mcg/m. He came into the emergency room on January 15 complaining of weakness and a low blood pressure. He was transferred in from [facility]. The patient had been taking Lasix, from his prior admission, and apparently was f ound to have acute kidney injury as well. Currently, he is resting comfortably in the intensive care unit. His primary care physician is Dr. Luis Gee. White count 10.5, hemoglobin 8.9, hematocrit 27.9, within normal platelet count. Coagulation studies were normal. Sodium 134, potassium 4.3, chlorides 98, CO2 24, BUN 42, and creatinine 3.72. His anion gap is normal. His troponin was 1.060, and his N-terminal proBNP was 13,400. Pulmonary progress note dated 01/17/2023. The patient is seen today again in the emergency room, room 5. The patient is currently on 5 L nasal cannula. He is getting saline at 50 mL an hour. He does feel better today. He remains on norepinephrine. It's currently running at 0.15 mcg/kg/m which is right around 14.25 mcg/m. Yesterday, he was on a much higher dose. As mentioned before, he is feeling better. His cortisol level was only 6. He was started on hydrocortisone 50 mg IV push, every 6 hours. Labs today include a sodium 136, potassium 4.5, chlorides 101, CO2 22, anion gap 13, BUN 29, creatinine 2.13. His kidney functions a bit improved. Chest x-ray shows mild fluid overload. Progress note dated 01/18/2023. 67-year-old male who seen today in room 261. Over the last couple of days, he was seen in the emergency department, as there were no beds available in the intensive care unit. The patient has been weaned off and norepinephrine. He is getting oxygen at 3 L. He is getting saline at 50 mL an hour. He feels much improved. He came in with hypotension, and congestive heart failure. White count 6.4, hemoglobin 8.6, hematocrit 27, platelet count 296,000. Sodium 136, potassium 5.4, chlorides 100, CO2 24, BUN 28, and creatinine 1.83. No chest x- ray today. Blood cultures are showing gram-positive bacilli, yet to be id entified. Progress note dated 01/19/2023. 67-year-old male, seen today in room 364. He's currently on 3 L of oxygen. He is getting saline at 10 mL an hour. The patient was in the intensive care unit, for a period of time, with hypotension, on norepinephrine. Clinically he is doing much better. Labs today include a sodium 136, potassium 5.5, chlorides 101, CO2 23, anion gap 12, BUN 38, and creatinine 2.04. Pro-calcitonin level is 0.19. Blood cultures were positive for alpha hemolytic streptococci. Currently, the patient is on Rocephin. Progress note dated 01/20/2023. 67-year-old male, seen in room 364. He seems to be doing relatively well. He is on 3 L of oxygen. He's not receiving any IV fluids. He is receiving an infusion of iron. He states he had a pretty uneventful night. White count 9.5, hemoglobin 9.1, hematocrit 29.3, within a normal platelet count. Sodium 136, p otassium 4.9, chlorides 101, CO2 22, anion gap 13, BUN 43, and creatinine 2.10. Blood cultures are positive for alpha hemolytic streptococci. Progress note dated 01/21/2023. 67-year-old male seen again in room 364. He is currently doing very well, and is currently on 3 L of oxygen. He is not receiving any IV fluids. His breathing is much improved. He denies any significant shortness of breath, cough, wheezing, phlegm production, chest pain, or phlegm production. No fever or chills. Labs today include a sodium 138, potassium 3.6, chlorides 99, CO2 27, anion gap 12, BUN 40, creatinine 1.82. His most recent pro-calcitonin level was 0.19, back on January 18. Progress note dated 01/22/2023. The patient is seen today in room 364. This is a 67-year-old male, who was admitted with a diagnosis of hypotension. The patient was initially in the emergency room, on norepinephrine for 2 days. Currently, he's not receiving any IV fluids. He remains on oxygen at 3 L. He is hoping to be discharged on Monday. There are no new labs today. Blood cultures from January 17 showed alpha-hemolytic streptococcus. On 01/23/2023, the patient is being seen for a follow-up. Patient is doing well . No specific complaints. The patient is ambulating. He is feeling well. He is 100 stable. His hypotension is recovered. The patient was found to be septic related alpha-hemolytic strep and the source is most likely an underlying pneumonia. Noted. The left lung pulmonary infiltrate time of admission the patient was profoundly weak and hypotensive at time of admission. He was also taking diuretics. He was investigated, placed on antibiotics and is much improved at this point in time. His, with conditions include CAD, bypass, COPD, hypertension hyperlipidemia and obstructive sleep apnea. He has also history of depression and PTSD. In terms of his labs, BUN is 25 with a creatinine of 1.21, and acute kidney injury is essentially recovered. The repeat chest x-ray shows some limited CHF findings. There is increased pulmonary vessel markings and a small right-sided pleural effusion. Overall findings are essentially stable. Objective - Vital Signs Vital signs: Vital Signs Temp 98.1 F 01/23/23 04:00 Pulse 84 01/23/23 08:30 Resp 16 01/23/23 04:00 BP 106/59 01/23/23 04:00 Pulse Ox 96 01/23/23 08:20 FiO2 21 01/21/23 08:38 Intake & Output 01/22/23 01/23/23 01/23/23 18:59 06:59 18:59 Intake Total 600 480 Output Total 1470 200 Balance -870 -200 480 Weight 111.5 kg Intake: Oral 600 480 Output: Urine 1470 200 Other: Voiding Method Bedside Commode Urinal Urinal # Voids 1 - Exam No acute distress, oriented 3. Currently on 3 L of oxygen. No audible wheezing, use of accessory muscles. Calm and comfortable and is able to communicate. No signs of any respiratory distress Head exam was generally normal. There was no scleral icterus or corneal arcus. Mucous membranes were moist. HEENT examination is grossly unremarkable. Neck supple. Full range of motion. No adenopathy thyromegaly or neck vein distention. Cardiovascular examination reveals regular rhythm rate. S1-S2 normal. No S3 or S4. No discernible murmur noted. . heart sounds are distant. Lungs reveal scattered bilateral rhonchi. No wheezes. No crackles. Abdomen soft bowel sounds are heard. No masses or tenderness. Extremities are intact. No cyanosis or clubbing. Trace edema. Skin is without rash or lesion. Neurologic examination is brief but nonfocal. - Labs CBC & Chem 7: 01/20/23 07:46 01/23/23 11:52 Labs: Microbiology - Last 24 Hours (Table) 01/17/23 08:57 Blood Culture - Preliminary Blood No Growth after 120 hours Assessment and Plan Plan: Sepsis secondary to alpha hemolytic strep, hoarseness being most likely a respiratory source/pneumonia. The patient was treated with IV antibiotics and the patient is currently on IV Rocephin every 24 hours. Hypotension, recovered and the patient has been adequately resuscitated Acute kidney injury, recovered Weakness, hypotension, and acute kidney injury, recovered Recent admission to the hospital for congestive heart failure. October admission to the hospital for PCI/stent placement. History of CAD, S/P myocardial infarction. History of CABG. History of COPD. Gastroesophageal reflux disease. History of hyperlipidemia. History of hypertension. History of sleep apnea syndrome. Osteoarthritis. Prior history of tobacco use. History/depression, PTSD. Plan: Patient is doing well. The patient has no specific complaints. The patient is to be discharged home. I think it's possible as long as the patient can be switched to oral antibiotics and the patient can be treated on outpatient basis to complete to complete a two-week course of antibiotics. Diuretics can be gradually resume. They have function is improving. Patient is alert and long- term and coagulation with Eliquis. Patient is on Symbicort as maintenance. Discharge planning is in progress. Should be able to switch to oral antibiotics and go home today to be followed up on outpatient basis and completed two-week course of antibiotics.
--- NOTE | 2023-01-23 13:29 | P.PN ---
Subjective Patient is seen for follow-up for acute kidney injury and top of chronic kidney disease. No significant complaints today Maintained on IV Lasix daily No complaints of chest pains or shortness of breath. Serum creatinine down to 1.2 Objective - Vital Signs Vital signs: Vital Signs Temp 98.0 F 01/23/23 08:00 Pulse 84 01/23/23 08:30 Resp 20 01/23/23 08:00 BP 110/64 01/23/23 08:00 Pulse Ox 96 01/23/23 08:20 FiO2 21 01/21/23 08:38 Intake & Output 01/22/23 01/23/23 01/23/23 18:59 06:59 18:59 Intake Total 600 480 Output Total 1470 200 0 Balance -870 -200 480 Weight 111.5 kg Intake: Oral 600 480 Output: Urine 1470 200 Stool 0 Other: Voiding Method Bedside Commode Urinal Urinal Urinal # Voids 1 - Exam Awake, comfortable, no acute distress Examination of the heart S1 and S2 Examination lungs bilateral breath sounds are heard Abdomen is soft nontender Examination lower extremities shows 2+ edema bilaterally VALET MANAGER exam grossly intact - Labs CBC & Chem 7: 01/20/23 07:46 01/23/23 11:52 Labs: Abnormal Lab Results - Last 24 Hours (Table) 01/23/23 Range/Units 11:52 Potassium 3.4 L (3.5-5.1) mmol/L Chloride 95 L (98-107) mmol/L Carbon Dioxide 34 H (22-30) mmol/L BUN 25 H (9-20) mg/dL Microbiology - Last 24 Hours (Table) 01/17/23 08:57 Blood Culture - Final Blood No Growth after 144 hours Assessment and Plan Assessment: 1. Acute kidney injury secondary to hemodynamic ATN. Creatinine was 3.96 on admission and decreased to 1.8. No evidence of urinary retention. No hyd ronephrosis noted on kidney ultrasound. UA fairly benign. 2. Chronic systolic CHF with ejection fraction of 30-35% and moderate mitral, tricuspid and aortic regurgitation. 3. Hypovolemic hyponatremia improved with IV hydration. Now hypervolemic. 4. Metabolic acidosis secondary to acute kidney injury. Improved. 5. Chronic kidney disease stage IIIa with baseline creatinine 1.1-1.3 secondary to nephrosclerosis. 6. Anemia of chronic kidney disease. Iron deficiency noted. 7. Hypotension secondary to antihypertensive meds and diuretics. Cortisol level in the low end of normal. s/p IV steroids. 8. Strep bacteremia. On antibiotics. 9. Mild hyperkalemia secondary to acute kidney injury. Improved Plan: Patient can be discharged from nephrology standpoint on oral Lasix 40 mg twice a day and potassium supplementation. Follow-up in the office in about 2 weeks
--- NOTE | 2023-01-24 07:06 | DS ---
DISCHARGE SUMMARY CHIEF COMPLAINT: Syncope and dehydration. HISTORY OF PRESENT ILLNESS AND PHYSICAL EXAMINATION: Details of this man's history and physical can be found in the initial workup. LABORATORY STUDIES: While he was in the hospital, he had laboratory studies, details of which can be found in the laboratory section of his chart. COURSE IN THE HOSPITAL: After admission, he was placed on bedrest, started on intravenous fluids, and he was rehydrated. He did not have any difficulty with heart failure. He did have trouble maintaining good pulse ox, but eventually this improved and it was felt that he could be discharged on the . He has oxygen available at home. He will go home on his usual activity, diet, and most of the same medications, but Lasix will be added back in again at a lower dose. FINAL DIAGNOSES: 1. Syncopal episode. 2. Dehydration. 3. Congestive heart failure. 4. Chronic kidney disease. 5. Chronic obstructive pulmonary disease. 6. Hyperlipidemia. OPERATIONS: None. CONSULTATIONS: Cardiology. He is improved. REYNALDO / CALLI: [id number] /
--- NOTE | 2023-02-01 06:45 | MISC ---
MISCELLANOUS REPORT Bacteremia, not clinically significant. MMODL / IJN: [id number] /
--- NOTE | 2023-02-01 09:56 | CDI ---
Documentation Clarification Form Date: 02/01/2023 9:29:47 AM From: Sheryl Renee RN CCDS Phone: [phone] Admit Date: 01/15/2023 10:33:00 PM Patient Name: Israel Simmons Visit Number: [id number] Discharge Date: 01/23/2023 1:59:00 PM ATTENTION: The Clinical Documentation Specialists (CDI) and [facility] Coding Staff appreciate your assistance in clarifying documentation. Please respond to the clarification below the line at the bottom and electronically sign. The CDI & [facility] Coding staff will review the response and follow-up if needed. Please note: Queries are made part of the Legal Health Record. If you have any questions, please contact the author of this message via ITS. Dr. Alexx Gee There is documentation of renal failure, 01/17, H&P. Additional clarification of the acuity of the condition is requested. History/Risk Factors: 67-year-old male presented to [facility] after feeling weak, dizzy and syncopal episode and transferred to [facility] for hypotension and renal failure. Medical History: CHF, CKD IIIa, CAD and HTN. 01/16, H&P. Clinical Indicators: 01/15, VVS: B/P 88/46; HR 65, Temp 97.9F Oral; RR 18, SpO2 95% room air Labs: 01/15 3.96; 01/16 3.72; 01/17 2.13; 01/18 1.83 01/17, H&P: He apparently became weak, lightheaded and fell and was taken to [facility], where he was found to be hypotensive and in renal failure. 01/16, Nephrology consult: Acute kidney injury secondary to hemodynamic ATN. Creatinine was 3.96 on admission and is 3.72 today. CKD stage IIIa with baseline creatinine in the range of 1.1-1.3. Treatment: maintain gentle IV hydration continue to hold antihypertensive and diuretics. 01/15 0.9 NS 500cc bolus x 1; 01/16 0.9ns 20cc/hr Nephrology consult above Can you please clarify the acuity of Kidney Injury? [ ] Acute Kidney Injury [ ] Other, please specify [ ] Unable to determine (Template Last Revised: December 2020) MTDD
--- NOTE | 2023-02-03 03:31 | MISC ---
MISCELLANOUS REPORT CKD due to cardiorenal syndrome. MMODL / IJN: [id number] /
== END 2023-01-23 13:59 | disposition home health service (06) | DRG 291 ==
LOC: EC 19:57 → 2SICU 22:33 → 3SCARD 01-18 18:43
PROVIDERS: ADMIT Family Medicine; ATTEND Family Medicine
PROC: 3E043XZ Introduction of Vasopressor into Central Vein, Percutaneous Approach (ICD-10-PCS; principal; 2023-01-15)
PROC: 06HM33Z Insertion of Infusion Device into Right Femoral Vein, Percutaneous Approach (ICD-10-PCS; 2023-01-15)
PROC: 05HC33Z Insertion of Infusion Device into Left Basilic Vein, Percutaneous Approach (ICD-10-PCS; 2023-01-19)
DX: I13.0 Hypertensive heart and chronic kidney disease with heart failure and stage 1 through stage 4 chronic kidney disease, or unspecified chronic kidney disease (principal); I50.23 Acute on chronic systolic (congestive) heart failure; N17.0 Acute kidney failure with tubular necrosis; J18.9 Pneumonia, unspecified organism; E87.1 Hypo-osmolality and hyponatremia; J44.0 Chronic obstructive pulmonary disease with (acute) lower respiratory infection; I95.2 Hypotension due to drugs; I25.110 Atherosclerotic heart disease of native coronary artery with unstable angina pectoris; Z99.81 Dependence on supplemental oxygen; D63.1 Anemia in chronic kidney disease; N18.31 Chronic kidney disease, stage 3a; I08.3 Combined rheumatic disorders of mitral, aortic and tricuspid valves; Z87.891 Personal history of nicotine dependence; D50.9 Iron deficiency anemia, unspecified; E78.5 Hyperlipidemia, unspecified; E86.0 Dehydration; E86.1 Hypovolemia; E87.5 Hyperkalemia; F43.10 Post-traumatic stress disorder, unspecified; G47.33 Obstructive sleep apnea (adult) (pediatric); I25.2 Old myocardial infarction; I25.5 Ischemic cardiomyopathy; K21.9 Gastro-esophageal reflux disease without esophagitis; M19.90 Unspecified osteoarthritis, unspecified site; T46.5X5A Adverse effect of other antihypertensive drugs, initial encounter; M21.372 Foot drop, left foot; S40.812A Abrasion of left upper arm, initial encounter; T50.2X5A Adverse effect of carbonic-anhydrase inhibitors, benzothiadiazides and other diuretics, initial encounter; W19.XXXA Unspecified fall, initial encounter; Y92.009 Unspecified place in unspecified non-institutional (private) residence as the place of occurrence of the external cause; Z28.311 Partially vaccinated for COVID-19; Z79.01 Long term (current) use of anticoagulants; Z79.51 Long term (current) use of inhaled steroids; Z79.82 Long term (current) use of aspirin; Z79.899 Other long term (current) drug therapy; Z82.49 Family history of ischemic heart disease and other diseases of the circulatory system; Z95.1 Presence of aortocoronary bypass graft; Z95.5 Presence of coronary angioplasty implant and graft; Z71.3 Dietary counseling and surveillance; Z88.5 Allergy status to narcotic agent; Z88.8 Allergy status to other drugs, medicaments and biological substances; Z91.040 Latex allergy status
CPT/HCPCS: 36410; 36415; 36556; 51798; 71045; 76770; 76937; 80048; 80053; 81003; 82533; 82728; 83540; 83550; 83735; 83880; 84145; 84443; 84484; 85025; 85027; 85610; 85730; 87040; 87077; 87186; 93005; 94640; 94760; 96361; 96365; 96366; 96367; 96375; 96376; 99291

== ENCOUNTER 2023-01-27 13:00 | Inpatient (IN) | payer MEDICARE, OTHER ==
[2023-01-27] MEDS ORDERED: NITROGLYCERIN OINT 1 INCH/GM PACKET TOPICAL STA (13:39)
[2023-01-27] MEDS ORDERED: ASPIRIN 81 MG PO STA (13:39)
[2023-01-27] MEDS ORDERED: FUROSEMIDE 10 MG/ML 4 ML VIAL IV STA (13:41)
--- NOTE | 2023-01-27 13:44 | ED ---
General Adult HPI - General Chief complaint: Chest Pain Stated complaint: CHF Time Seen by Provider: 01/27/23 13:30 Source: patient, RN notes reviewed, old records reviewed Mode of arrival: EMS Limitations: no limitations - History of Present Illness Initial comments: This a 67-year-old male who presents emergency Department complaining of difficulty breathing and some chest pain. Patient states he had a DE in October he's been back multiple times since with the last time having fluid on his lungs. Patient states shortness of breath starting it worse today and he also noticed left-sided chest pain with no radiation. Patient denies any nausea. Patient denies any diaphoretic episodes. Patient denies headache patient denies numbness weakness per patient denies any abdominal pain patient denies any vomiting or diarrhea. Patient denies any recent fever chills or cough per patient states he has noticed increased swelling to bilateral legs. - Related Data Home Medications Medication Instructions Recorded Confirmed HYDROcodone/APAP 10-325MG [[place] 1 tab PO QID PRN 02/22/15 01/27/23 10-325] rOPINIRole HCL [Requip] 0.25 mg PO HS 09/29/17 01/27/23 Potassium Chloride ER [K-Dur 20] 20 meq PO BID 12/18/22 01/27/23 Rosuvastatin [Crestor] 20 mg PO HS 12/18/22 01/27/23 ALPRAZolam [Xanax] 1 mg PO TID PRN 01/27/23 01/27/23 Fluticasone Nasal Apollo [Flonase 1 spray EA NOSTRIL BID 01/27/23 01/27/23 Nasal Apollo] Fluticasone Propionate 110 Mcg 2 puff INHALATION RT-BID 01/27/23 01/27/23 [Flovent 110 Mcg Inhaler] Sacubitril/Valsartan [Entresto 24 1 tab PO BID 01/27/23 01/27/23 mg-26 mg Tablet] Previous Rx's Medication Instructions Recorded Apixaban [Eliquis] 2.5 mg PO BID #60 tab 11/18/22 Aspirin 81 mg PO DAILY tab 11/18/22 Clopidogrel [Plavix] 75 mg PO HS #30 tab 11/18/22 Ezetimibe [Zetia] 10 mg PO DAILY #90 tab 11/18/22 Nitroglycerin Sl Tabs [Nitrostat] 0.4 mg SUBLINGUAL Q5M PRN #25 tab 11/18/22 Fenofibrate [Lofibra] 160 mg PO DAILY #30 tab 12/01/22 Metoprolol Succinate (ER) [Toprol 50 mg PO DAILY #30 tab 12/01/22 XL] Cephalexin [Keflex] 500 mg PO QID #30 cap 01/23/23 Furosemide [Lasix] 40 mg PO DAILY #180 tablet 01/23/23 Allergies Allergy/AdvReac Type Severity Reaction Status Date / Time latex Allergy Swelling Verified 01/27/23 15:38 atorvastatin [From Lipitor] AdvReac JOINT PAIN Verified 01/27/23 15:38 Review of Systems ROS Statement: Those systems with pertinent positive or pertinent negative responses have been documented in the HPI. ROS Other: All systems not noted in ROS Statement are negative. Past Medical History Past Medical History: Coronary Artery Disease (CAD), Chest Pain / Angina, COPD, GERD/Reflux, Hyperlipidemia, Hypertension, Myocardial Infarction (DE), Osteoarthritis (OA), Sleep Apnea/CPAP/BIPAP Additional Past Medical History / Comment(s): hiatal hernia, chronic back pain, L foot drop, numbness/tingling bilateral legs, HUSAM without device, states stents x7 Last Myocardial Infarction Date:: 11/11/22 History of Any Multi-Drug Resistant Organisms: None Reported Past Surgical History: Back Surgery, Cholecystectomy, Coronary Bypass/CABG, Heart Catheterization With Stent, Orthopedic Surgery Additional Past Surgical History / Comment(s): Back surg x 2 with cage. L tennis elbow surg. HEART STENTS X7. Colonoscopy. Lasik eye surgery bilaterally. Emergency Cabg [facility] Past Anesthesia/Blood Transfusion Reactions: No Reported Reaction Additional Past Anesthesia/Blood Transfusion Reaction / Comment(s): Pt received blood during CABG without reaction. Date of Last Stent Placement:: Oct 2022 Past Psychological History: Anxiety, Depression, PTSD Smoking Status: Former smoker Past Alcohol Use History: None Reported Past Drug Use History: None Reported - Past Family History Father Family Medical History: Coronary Artery Disease (CAD), Deep Vein Thrombosis (DVT), GERD/Reflux, Hyperlipidemia Additional Family Medical History / Comment(s): Father of a DE in his 80's Mother Family Medical History: Coronary Artery Disease (CAD) Additional Family Medical History / Comment(s): Mother of a DE at the age of 76yrs. Sister(s) Family Medical History: Cancer Additional Family Medical History / Comment(s): Lung cancer. General Exam - General Exam Comments Initial Comments: GENERAL: Patient is well-developed and well-nourished. Patient is nontoxic and well- hydrated and is in mild distress. ENT: Neck is soft and supple. No significant lymphadenopathy is noted. Oropharynx is clear. Moist mucous membranes. Neck has full range of motion without eliciting any pain. EYES: The sclera were anicteric and conjunctiva were pink and moist. Extraocular mo vements were intact and pupils were equal round and reactive to light. Eyelids were unremarkable. PULMONARY: Patient has diminished breath sounds on the right CARDIOVASCULAR: There is a regular rate and rhythm without any murmurs gallops or rubs. ABDOMEN: Soft and nontender with normal bowel sounds. SKIN: Skin is clear with no lesions or rashes and otherwise unremarkable. NEUROLOGIC: Patient is alert and oriented x3. Cranial nerves II through XII are grossly intact. Motor and sensory are also intact. Normal speech, volume and content. Symmetrical smile. MUSCULOSKELETAL: Normal extremities with adequate strength and full range of motion. 2+ edema bilateral LYMPHATICS: No significant lymphadenopathy is noted PSYCHIATRIC: Normal psychiatric evaluation. Limitations: no limitations Course Vital Signs 01/27/23 01/27/23 01/27/23 13:28 15:11 16:03 Temperature 98.2 F Pulse Rate 78 72 76 Respiratory 20 18 16 Rate Blood Pressure 116/55 98/62 115/83 O2 Sat by Pulse 97 100 95 Oximetry Medical Decision Making - Medical Decision Making EKG was interpreted by myself. EKG shows sinus rhythm at 72 bpm NJ interval 230 QRS is 100 QT interval 414 QTC is 438. Patient's EKG shows a little ST segment elevation V1 and V2 with T wave inversion in V3 through V6 which were also seen on previous EKGs. Was pt. sent in by a medical professional or institution (, PA, ECONOMIC DEVELOPMENT COORDINATOR, urgent care, hospital, or jail...) When possible be specific @ -Patient's visiting nurse saw him today and sent him to the hospital because he seemed to become more dyspneic Did you speak to anyone other than the patient for history (EMS, parent, family, police, friend...)? What history was obtained from this source @ -No Did you review nursing and triage notes (agree or disagree)? Why? @ -I reviewed and agree with nursing and triage notes Were old charts reviewed (outside hosp., previous admission, EMS record, old EKG, old radiological studies, urgent care reports/EKG's, jail records)? Report findings @ -I reviewed prior radiological studies prior lab work on this patient compared today's results. Differential Diagnosis (chest pain, altered mental status, abdominal pain women, abdominal pain men, vaginal bleeding, weakness, fever, dyspnea, syncope, headache, dizziness, GI bleed, back pain, seizure, CVA, palpatations, mental health, musculoskeletal)? @ -Differential Dyspnea: Coronary syndrome, arrhythmia, tamponade, asthma, COPD, pulmonary embolism, pneumonia, pneumothorax, pulmonary effusion, anaphylaxis, diabetic ketoacidosis, flailed chest, pulmonary contusion, diaphragmatic rupture, anemia, neuromuscular, this is not meant to be an all-inclusive list. EKG interpreted by me (3pts min.). @ -As above X-rays interpreted by me (1pt min.). @ -Chest x-ray was interpreted by myself it shows an increasing pleural effusion the right base. CT interpreted by me (1pt min.). @ -None done U/S interpreted by me (1pt. min.). @ -None done What testing was considered but not performed or refused? (CT, X-rays, U/S, labs)? Why? @ -None What meds were considered but not given or refused? Why? @ -None Did you discuss the management of the patient with other professionals (professionals i.e. , PA, ECONOMIC DEVELOPMENT COORDINATOR, lab, RT, psych nurse, social group worker, fine grader, teacher, commercial credit officer, watch caser)? Give summary @ -I discussed the case with [facility] hospitalist and they agreed to admit the patient Was smoking cessation discussed for >3mins.? @ -No Was critical care preformed (if so, how long)? @ -No Were there social determinants of health that impacted care today? How? (Home lessness, low income, unemployed, alcoholism, drug addiction, transportation, low edu. Level, literacy, decrease access to med. care, [place] [facility], rehab)? @ -No Was there de-escalation of care discussed even if they declined (Discuss DNR or withdrawal of care, Hospice)? DNR status @ -No What co-morbidities impacted this encounter? (DM, HTN, Smoking, COPD, CAD, Cancer, CVA, ARF, Chemo, Hep., AIDS, mental health diagnosis, sleep apnea, morbid obesity)? @ -Coronary artery disease Was patient admitted / discharged? Hospital course, mention meds given and route, prescriptions, significant lab abnormalities, going to OR and other pertinent info. @ -Patient came in complaining of difficulty breathing chest pain. Patient's chest x-ray showed increasing pleural effusion on the right troponin was still mildly elevated considerably lower than it was on his prior visit. I spoke with [facility] agreed to admit the patient admitted the patient I consult cardiology. Patient did receive Toradol for pain nitroglycerin for pain and morphine for pain. Undiagnosed new problem with uncertain prognosis? @ -No Drug Therapy requiring intensive monitoring for toxicity (Heparin, Nitro, Insulin, Cardizem)? @ -No Were any procedures done? @ -No Diagnosis/symptom? @ -Chest pain Acute, or Chronic, or Acute on Chronic? @ -Acute Uncomplicated (without systemic symptoms) or Complicated (systemic symptoms)? @ -Complicated Side effects of treatment? @ -No Exacerbation, Progression, or Severe Exacerbation? @ -No Poses a threat to life or bodily function? How? (Chest pain, [place], DE, pneumonia, PE, COPD, DKA, ARF, appy, cholecystitis, CVA, Diverticulitis, Homicidal, Suicidal, threat to staff... and all critical care pts) @ -Yes this could lead to potential DE in the superior end organ dysfunction Diagnosis/symptom? @ -Pleural effusion Acute, or Chronic, or Acute on Chronic? @ -Acute on chronic Uncomplicated (without systemic symptoms) or Complicated (systemic symptoms)? @ -Complicated Side effects of treatment? @ -none Exacerbation, Progression, or Severe Exacerbation] @ -no Poses a threat to life or bodily function? @ -no Diagnosis/symptom? @ -Elevated troponin Acute, or Chronic, or Acute on Chronic? @ -default Uncomplicated (without systemic symptoms) or Complicated (systemic symptoms)? @ -default Side effects of treatment? @ -none Exacerbation, Progression, or Severe Exacerbation] @ -no Poses a threat to life or bodily function? @ -no - Lab Data Result diagrams: 01/27/23 13:47 01/27/23 13:47 Lab Results 01/27/23 01/27/23 01/27/23 Range/Units 13:47 13:47 13:47 WBC 7.6 (3.8-10.6) k/uL RBC 3.34 L (4.30-5.90) m/uL Hgb 9.5 L (13.0-17.5) gm/dL Hct 30.2 L (39.0-53.0) % MCV 90.4 (80.0-100.0) fL MCH 28.6 (25.0-35.0) pg MCHC 31.6 (31.0-37.0) g/dL RDW 18.2 H (11.5-15.5) % Plt Count 149 L (150-450) k/uL MPV 10.7 Neutrophils % 70 % Lymphocytes % 23 % Monocytes % 5 % Eosinophils % 1 % Basophils % 0 % Neutrophils # 5.3 (1.3-7.7) k/uL Lymphocytes # 1.8 (1.0-4.8) k/uL Monocytes # 0.4 (0-1.0) k/uL Eosinophils # 0.1 (0-0.7) k/uL Basophils # 0.0 (0-0.2) k/uL Hypochromasia Slight Anisocytosis Slight PT 11.6 (9.0-12.0) sec INR 1.1 (<1.2) APTT 24.9 (22.0-30.0) sec Sodium 139 (137-145) mmol/L Potassium 3.9 (3.5-5.1) mmol/L Chloride 98 (98-107) mmol/L Carbon Dioxide 29 (22-30) mmol/L Anion Gap 12 mmol/L BUN 30 H (9-20) mg/dL Creatinine 1.68 H (0.66-1.25) mg/dL Est GFR (CKD-EPI)AfAm 49 (>60 ml/min/1.73 sqM) Est GFR (CKD-EPI)NonAf 42 (>60 ml/min/1.73 sqM) Glucose 109 H (74-99) mg/dL Calcium 8.9 (8.4-10.2) mg/dL Magnesium 1.9 (1.6-2.3) mg/dL Total Bilirubin 0.8 (0.2-1.3) mg/dL AST 29 (17-59) U/L ALT 17 (4-49) U/L Alkaline Phosphatase 76 (38-126) U/L Troponin I (0.000-0.034) ng/mL NT-Pro-B Natriuret Pep pg/mL Total Protein 7.1 (6.3-8.2) g/dL Albumin 4.0 (3.5-5.0) g/dL 01/27/23 01/27/23 Range/Units 13:47 13:47 WBC (3.8-10.6) k/uL RBC (4.30-5.90) m/uL Hgb (13.0-17.5) gm/dL Hct (39.0-53.0) % MCV (80.0-100.0) fL MCH (25.0-35.0) pg MCHC (31.0-37.0) g/dL RDW (11.5-15.5) % Plt Count (150-450) k/uL MPV Neutrophils % % Lymphocytes % % Monocytes % % Eosinophils % % Basophils % % Neutrophils # (1.3-7.7) k/uL Lymphocytes # (1.0-4.8) k/uL Monocytes # (0-1.0) k/uL Eosinophils # (0-0.7) k/uL Basophils # (0-0.2) k/uL Hypochromasia Anisocytosis PT (9.0-12.0) sec INR (<1.2) APTT (22.0-30.0) sec Sodium (137-145) mmol/L Potassium (3.5-5.1) mmol/L Chloride (98-107) mmol/L Carbon Dioxide (22-30) mmol/L Anion Gap mmol/L BUN (9-20) mg/dL Creatinine (0.66-1.25) mg/dL Est GFR (CKD-EPI)AfAm (>60 ml/min/1.73 sqM) Est GFR (CKD-EPI)NonAf (>60 ml/min/1.73 sqM) Glucose (74-99) mg/dL Calcium (8.4-10.2) mg/dL Magnesium (1.6-2.3) mg/dL Total Bilirubin (0.2-1.3) mg/dL AST (17-59) U/L ALT (4-49) U/L Alkaline Phosphatase (38-126) U/L Troponin I 0.115 H* (0.000-0.034) ng/mL NT-Pro-B Natriuret Pep 8770 pg/mL Total Protein (6.3-8.2) g/dL Albumin (3.5-5.0) g/dL Disposition Clinical Impression: Chest pain, Pleural effusion Disposition: ADMITTED IP TO THIS HOSP Referrals: Alexx Gee MD [Primary Care Provider] - 1-2 days Time of Disposition: 16:33
[2023-01-27 15:04] LABS: Anisocytosis Slight; Basophils % (A) 0 %; Eosinophils # (A) 0.1 k/uL (0-0.7); Eosinophils % (A) 1 %; HCT 30.2 % (39.0-53.0); HGB 9.5 gm/dL (13.0-17.5); Hypochromasia Slight; Lymphocytes # (A) 1.8 k/uL (1.0-4.8); Lymphocytes % (A) 23 %; MCH 28.6 pg (25.0-35.0); MCHC 31.6 g/dL (31.0-37.0); MCV 90.4 fL (80.0-100.0); Mean Platelet Volume 10.7; Monocytes # (A) 0.4 k/uL (0-1.0); Monocytes % (A) 5 %; Neutrophils # (A) 5.3 k/uL (1.3-7.7); Neutrophils % (A) 70 %; Platelet Count 149 k/uL (150-450); RBC 3.34 m/uL (4.30-5.90); RDW 18.2 % (11.5-15.5); WBC 7.6 k/uL (3.8-10.6)
[2023-01-27 15:10] LABS: Calcium 8.9 mg/dL (8.4-10.2); Magnesium 1.9 mg/dL (1.6-2.3); Potassium 3.9 mmol/L (3.5-5.1); Total Bilirubin 0.8 mg/dL (0.2-1.3); Total Protein 7.1 g/dL (6.3-8.2)
[2023-01-27 15:12] LABS: INR 1.1 (<1.2); Partial Thromboplastin Time 24.9 sec (22.0-30.0); Prothrombin Time 11.6 sec (9.0-12.0)
--- NOTE | 2023-01-27 15:21 | XR ---
EXAMINATION TYPE: XR chest 2V DATE OF EXAM: 01/27/2023 COMPARISON: 01/23/2023 HISTORY: Shortness of breath TECHNIQUE: Frontal and lateral views of the chest are obtained. FINDINGS: Scattered senescent parenchymal changes noted. Hyperinflation compatible with COPD. Increasing right basilar effusion and/or atelectasis with infiltrate difficult to exclude. Heart size is stable. Mediastinal structures are stable and grossly unremarkable. No evidence for hilar prominence. Degenerative changes dorsal spine. IMPRESSION: 1. Increasing right basilar effusion and/or atelectasis with infiltrate difficult to exclude.
[2023-01-27] MEDS ORDERED: KETOROLAC 15 MG/ML 1 ML VIAL IVP STA (15:43)
[2023-01-27] MEDS ORDERED: MORPHINE SULFATE 4 MG/ML SYRINGE IVP STA (16:25)
[2023-01-27] MEDS ORDERED: NITROGLYCERIN SL TABS 0.4 MG TAB SUBLINGUAL PRN (16:33)
[2023-01-27] MEDS: NITROGLYCERIN OINT 1 INCH/GM PACKET TOPICAL SCH ×2 (18:38→23:05)
[2023-01-27] MEDS: ALPRAZolam 1 MG TAB PO PRN (18:38)
[2023-01-27] MEDS ORDERED: HEPARIN SODIUM 1,000 UN/ML (10ML VL) IV ONE (22:21)
[2023-01-27] MEDS ORDERED: HEPARIN SODIUM 1,000 UN/ML (10ML VL) IV PRN (22:21)
[2023-01-27] MEDS: HEPARIN SOD,PORK IN 0.45% NACL 25,000 UNIT in 0.45% NACL 1 250ML.BAG IV SCH (22:41)
[2023-01-28] MEDS: HYDROcodone/APAP 10-325MG 1 EACH TAB PO PRN ×3 (00:58→21:42)
[2023-01-28] MEDS: ALPRAZolam 1 MG TAB PO PRN ×3 (00:58→21:43)
[2023-01-28] MEDS: NITROGLYCERIN OINT 1 INCH/GM PACKET TOPICAL SCH ×3 (05:37→17:06)
[2023-01-28 07:18] LABS: African American GFR (CKD) 47 (>60 ml/min/1.73 sqM); Anion Gap 10 mmol/L; Blood Urea Nitrogen 34 mg/dL (9-20); Calcium 8.7 mg/dL (8.4-10.2); Carbon Dioxide 28 mmol/L (22-30); Chloride 100 mmol/L (98-107); Glucose 81 mg/dL (74-99); Non-African American GFR(CKD) 41 (>60 ml/min/1.73 sqM); Potassium 3.8 mmol/L (3.5-5.1); Sodium 138 mmol/L (137-145)
[2023-01-28 07:23] LABS: INR 1.1 (<1.2); Partial Thromboplastin Time 32.8 sec (22.0-30.0); Prothrombin Time 11.7 sec (9.0-12.0)
[2023-01-28 07:36] LABS: Anisocytosis Slight; Basophils % (A) 1 %; Eosinophils # (A) 0.1 k/uL (0-0.7); Eosinophils % (A) 2 %; HCT 28.1 % (39.0-53.0); HGB 8.9 gm/dL (13.0-17.5); Hypochromasia Moderate; Lymphocytes # (A) 2.5 k/uL (1.0-4.8); Lymphocytes % (A) 38 %; MCH 28.8 pg (25.0-35.0); MCHC 31.7 g/dL (31.0-37.0); MCV 90.9 fL (80.0-100.0); Mean Platelet Volume 10.7; Monocytes # (A) 0.5 k/uL (0-1.0); Monocytes % (A) 8 %; Neutrophils # (A) 3.2 k/uL (1.3-7.7); Neutrophils % (A) 49 %; Platelet Count 125 k/uL (150-450); RBC 3.09 m/uL (4.30-5.90); RDW 17.8 % (11.5-15.5); WBC 6.6 k/uL (3.8-10.6)
[2023-01-28] MEDS: ASPIRIN 325 MG TAB PO SCH (07:50)
[2023-01-28] MEDS ORDERED: ALPRAZolam 1 MG TAB PO PRN (08:34)
[2023-01-28] MEDS ORDERED: NITROGLYCERIN SL TABS 0.4 MG TAB SUBLINGUAL PRN (08:34)
[2023-01-28] MEDS ORDERED: FUROSEMIDE 80 MG TAB PO SCH (09:00)
[2023-01-28] MEDS: FENOFIBRATE 160 MG TAB PO SCH (09:45)
[2023-01-28] MEDS: POTASSIUM CHLORIDE ER 20 MEQ TAB.ER PO SCH ×2 (09:45→21:43)
[2023-01-28] MEDS: EZETIMIBE 10 MG TAB PO SCH (09:45)
[2023-01-28] MEDS: METOPROLOL SUCCINATE (ER) 50 MG TAB.ER.24H PO SCH (09:45)
[2023-01-28] MEDS: ASPIRIN 81 MG PO SCH (09:46)
[2023-01-28] MEDS: FUROSEMIDE 10 MG/ML 4 ML VIAL IV SCH ×2 (09:46→21:43)
[2023-01-28] MEDS: SACUBITRIL/VALSARTAN 24 MG-26 MG TABLET PO SCH ×2 (09:46→22:19)
--- NOTE | 2023-01-28 11:15 | P.CRDCN ---
History of Present Illness Consult date: 01/28/23 Consult reason: chest pain (pleura effusion) History of present illness: HISTORY OF PRESENT ILLNESS: This is a 67-year-old male with a past medical history significant for coronary artery disease with previous CABG and stenting, hypertension, and hyperlipidemia, chronic hypoxic respiratory failure on home O2 at 4 L nasal cannula. Patient follows in the office with Dr. Wiggins. We have been asked to see the patient in consultation for chest pain, pleural effusion. Patient was admitted to the hospital in October 2022 secondary to STEMI and underwent SVG to LAD and aspiration thrombectomy. His procedure was complicated with ventricle fibrillation upon crossing the aortic valve. In addition, patient has had at least 3 hospitalizations since October treated for coronary artery disease, ischemic cardiomyopathy, presyncope with low blood pressures. Patient was just discharged from the hospital on January 23. He gives history that his home care nurse was at his home and his lips were purple. He states he's had shortness of breath ever since his ST elevated MD. He has noticed increased lower extremity edema. He states he is taking all of his medications asked her acted. His shortness of breath seemed to get worse while he was sitting in a chair yesterday but he had no chest pain. Because the nurse noted his lips were purple, she contacted EMS and patient was brought into the hospital. * EKG reveals sinus mechanism with ST abnormalities consistent with old MD * Laboratory data: WBC 6.6, hemoglobin 8.9, platelet count 125. INR 1.1. Troponin 0.115, 0.113, 0.141. ProBNP 7880. BUN 34 creatinine 1.72. * Current home cardiac medications include Eliquis 5mg BID, aspirin 81 mg daily, Plavix 75 mg at night, Zetia 10 mg daily, Lasix 40 mg daily, Imdur 30 mg daily, metoprolol succinate 50 mg daily, potassium chloride 20 mEq twice daily and Crestor 20 mg at night, Nitrostat as needed * limited echocardiogram obtained in December 2022 revealed ejection fraction 30- 35% with moderate mitral regurgitation and moderate aortic insufficiency * Cardiac catheterization: 11/11/2022 revealed acute total occlusion of the SVG to LAD with large thrombus burden, status post PCI of the SVG to LAD with aspiration thrombectomy. Procedure was complicated with ventricular fibrillation upon crossing the aortic valve. REVIEW OF SYSTEMS: At the time of my exam: CONSTITUTIONAL: Denies fever or chills. HEENT: Denies blurred vision, vision changes, or eye pain. Denies hemoptysis CARDIOVASCULAR: Denies chest pain. Denies orthopnea. Denies PND. Denies palpitations reports lower extremity edema RESPIRATORY: Reports shortness of breath. GASTROINTESTINAL: Denies abdominal pain. Denies nausea or vomiting. HEMATOLOGIC: Denies bleeding disorders. GENITOURINARY: Denies any blood in urine. SKIN: Denies pruitis. Denies rash. PHYSICAL EXAM: VITAL SIGNS: Reviewed. GENERAL: Well-developed in no acute distress. HEENT: Head is normocephalic. Pupils are equal, round. Sclerae anicteric. Mucous membranes of the mouth are moist. Neck supple. No JVD or thyromegaly LUNGS: Respirations even and unlabored. Lungs diminished bilaterally. HEART: Regular rate and rhythm. S1 and S2 heard. + systolic murmur. ABDOMEN: Soft. Nondistended. Nontender. EXTREMITIES: Normal range of motion. No clubbing or cyanosis. Peripheral pulses intact. 3+ lower extremity edema NEUROLOGIC: Awake and alert. Oriented x 3. ASSESSMENT: Acute on chronic systolic heart failure with EF of 30-35% Ischemic cardiomyopathy Chronic kidney disease History of anterior STEMI status post PCI of the SVG to LAD and aspiration thrombectomy, complicated by ventricular fibrillation, October 2022 Coronary artery disease with previous CABG and PCI Hypertension Hyperlipidemia PLAN: No need to repeat echocardiogram Resume patient's home cardiac medications Continue heparin drip for another 24 hours and hold eliquis Continue Lasix 40 mg IV every 12 hours, monitor I&O, daily weights, electrolytes and renal function Further recommendations pending patient course Nurse practitioner note has been reviewed by physician. Signing provider agrees with the documented findings, assessment, and plan of care. Past Medical History Past Medical History: Coronary Artery Disease (CAD), Chest Pain / Angina, COPD, GERD/Reflux, Hyperlipidemia, Hypertension, Myocardial Infarction (MD), Osteoarthritis (OA), Sleep Apnea/CPAP/BIPAP Additional Past Medical History / Comment(s): hiatal hernia, chronic back pain, L foot drop, numbness/tingling bilateral legs, HUSAM without device, states stents x7 Last Myocardial Infarction Date:: 11/11/22 History of Any Multi-Drug Resistant Organisms: None Reported Past Surgical History: Back Surgery, Cholecystectomy, Coronary Bypass/CABG, Heart Catheterization With Stent, Orthopedic Surgery Additional Past Surgical History / Comment(s): Back surg x 2 with cage. L tennis elbow surg. HEART STENTS X7. Colonoscopy. Lasik eye surgery bilaterally. Emergency Cabg [facility] Past Anesthesia/Blood Transfusion Reactions: No Reported Reaction Additional Past Anesthesia/Blood Transfusion Reaction / Comment(s): Pt received blood during CABG without reaction. Date of Last Stent Placement:: Oct 2022 Past Psychological History: Anxiety, Depression, PTSD Smoking Status: Former smoker Past Alcohol Use History: None Reported Past Drug Use History: None Reported - Past Family History Father Family Medical History: Coronary Artery Disease (CAD), Deep Vein Thrombosis (DVT), GERD/Reflux, Hyperlipidemia Additional Family Medical History / Comment(s): Father of a MD in his 80's Mother Family Medical History: Coronary Artery Disease (CAD) Additional Family Medical History / Comment(s): Mother of a MD at the age of 76yrs. Sister(s) Family Medical History: Cancer Additional Family Medical History / Comment(s): Lung cancer. Medications and Allergies Home Medications Medication Instructions Recorded Confirmed Type HYDROcodone/APAP 10-325MG [[place] 1 tab PO QID PRN 02/22/15 01/27/23 History 10-325] rOPINIRole HCL [Requip] 0.25 mg PO HS 09/29/17 01/27/23 History Apixaban [Eliquis] 2.5 mg PO BID #60 tab 11/18/22 01/27/23 Rx Aspirin 81 mg PO DAILY tab 11/18/22 01/27/23 Rx Clopidogrel [Plavix] 75 mg PO HS #30 tab 11/18/22 01/27/23 Rx Ezetimibe [Zetia] 10 mg PO DAILY #90 tab 11/18/22 01/27/23 Rx Nitroglycerin Sl Tabs [Nitrostat] 0.4 mg SUBLINGUAL Q5M PRN #25 tab 11/18/22 01/27/23 Rx Fenofibrate [Lofibra] 160 mg PO DAILY #30 tab 12/01/22 01/27/23 Rx Metoprolol Succinate (ER) [Toprol 50 mg PO DAILY #30 tab 12/01/22 01/27/23 Rx XL] Potassium Chloride ER [K-Dur 20] 20 meq PO BID 12/18/22 01/27/23 History Rosuvastatin [Crestor] 20 mg PO HS 12/18/22 01/27/23 History Cephalexin [Keflex] 500 mg PO QID #30 cap 01/23/23 01/27/23 Rx Furosemide [Lasix] 40 mg PO DAILY #180 tablet 01/23/23 01/27/23 Rx ALPRAZolam [Xanax] 1 mg PO TID PRN 01/27/23 01/27/23 History Fluticasone Nasal [place] [Flonase 1 spray EA NOSTRIL BID 01/27/23 01/27/23 History Nasal [place]] Fluticasone Propionate 110 Mcg 2 puff INHALATION RT-BID 01/27/23 01/27/23 History [Flovent 110 Mcg Inhaler] Sacubitril/Valsartan [Entresto 24 1 tab PO BID 01/27/23 01/27/23 History mg-26 mg Tablet] Allergies Allergy/AdvReac Type Severity Reaction Status Date / Time latex Allergy Swelling Verified 01/27/23 15:38 atorvastatin [From Lipitor] AdvReac JOINT PAIN Verified 01/27/23 15:38 Physical Exam Vitals: Vital Signs Temp Pulse Pulse Resp BP BP Pulse Ox 01/28/23 07:35 77 18 114/65 97 01/28/23 06:36 98 F 73 18 120/62 95 01/28/23 02:00 66 18 122/66 01/27/23 22:55 79 22 107/61 95 01/27/23 19:35 70 17 107/61 93 L 01/27/23 16:03 76 16 115/83 95 01/27/23 15:11 72 18 98/62 100 01/27/23 13:28 98.2 F 78 20 116/55 97 Intake and Output 01/27/23 01/28/23 01/28/23 22:59 06:59 14:59 Intake Total 90.009 Balance 90.009 Intake: Intake, IV Titration 90.009 Amount Heparin Sod,Pork in 0.45% 90.009 NaCl 25,000 unit In 0.45 % NaCl 1 250ml.bag @ 10. 45 UNITS/KG/HR 10.001 mls /hr IV .Q24H [facility] Rx#: [id number] Results 01/28/23 06:02 01/28/23 06:02 Cardiac Enzymes 01/27/23 01/27/23 01/27/23 Range/Units 13:47 13:47 16:58 AST 29 (17-59) U/L Troponin I 0.115 H* 0.133 H* (0.000-0.034) ng/mL 01/27/23 Range/Units 19:49 AST (17-59) U/L Troponin I 0.141 H* (0.000-0.034) ng/mL Coagulation 01/27/23 01/28/23 Range/Units 13:47 06:02 PT 11.6 11.7 (9.0-12.0) sec APTT 24.9 32.8 H (22.0-30.0) sec CBC 01/27/23 01/28/23 Range/Units 13:47 06:02 WBC 7.6 6.6 (3.8-10.6) k/uL RBC 3.34 L 3.09 L (4.30-5.90) m/uL Hgb 9.5 L 8.9 L (13.0-17.5) gm/dL Hct 30.2 L 28.1 L (39.0-53.0) % Plt Count 149 L 125 L (150-450) k/uL Comprehensive Metabolic Panel 01/27/23 01/28/23 Range/Units 13:47 06:02 Sodium 139 138 (137-145) mmol/L Potassium 3.9 3.8 (3.5-5.1) mmol/L Chloride 98 100 (98-107) mmol/L Carbon Dioxide 29 28 (22-30) mmol/L BUN 30 H 34 H (9-20) mg/dL Creatinine 1.68 H 1.72 H (0.66-1.25) mg/dL Glucose 109 H 81 (74-99) mg/dL Calcium 8.9 8.7 (8.4-10.2) mg/dL AST 29 (17-59) U/L ALT 17 (4-49) U/L Alkaline Phosphatase 76 (38-126) U/L Total Protein 7.1 (6.3-8.2) g/dL Albumin 4.0 (3.5-5.0) g/dL Current Medications Generic Name Dose Route Start Last Admin Trade Name Freq PRN Reason Stop Dose Admin Hydrocodone Bitart/Acetaminophen 1 each 04/01/23 00:47 01/28/23 07:50 Hydrocodone/Apap 10-325mg 1 Each Tab PO 1 each Q6HR PRN Administration Pain Alprazolam 1 mg 01/27/23 18:30 01/28/23 00:58 Alprazolam 1 Mg Tab PO 1 mg TID PRN Administration Anxiety Aspirin 325 mg 01/28/23 09:00 01/28/23 07:50 Aspirin 325 Mg Tab PO 325 mg DAILY ELIANA Administration Heparin Sodium (Porcine) 0 unit 01/27/23 22:21 01/28/23 07:51 Heparin Sodium 1,000 Un/Ml (10ml Vl) IV 4,000 unit PER PROTOCOL PRN Administration Low PTT Protocol Heparin Sodium/Sodium Chloride 250 mls @ 10.001 mls/hr 01/27/23 22:30 01/28/23 07:41 25,000 unit/ Sodium Chloride IV 13.45 units/kg/hr .Q24H ELIANA 12.873 mls/hr Titration Protocol 10.45 UNITS/KG/HR Nitroglycerin 0.4 mg 01/27/23 16:33 Nitroglycerin Sl Tabs 0.4 Mg Tab SUBLINGUAL Q5M PRN Chest Pain Nitroglycerin 1 inch 01/27/23 18:00 01/28/23 05:37 Nitroglycerin Oint 1 Inch/Gm Packet TOPICAL Not Given Q6HR [facility] Intake and Output 01/27/23 01/28/23 01/28/23 22:59 06:59 14:59 Intake Total 90.009 Balance 90.009 Intake: Intake, IV Titration 90.009 Amount Heparin Sod,Pork in 0.45% 90.009 NaCl 25,000 unit In 0.45 % NaCl 1 250ml.bag @ 10. 45 UNITS/KG/HR 10.001 mls /hr IV .Q24H [facility] Rx#: [id number] 01/28/23 06:02 01/28/23 06:02
[2023-01-28 11:24] LABS: Chol/HDL Ratio 2.57 Ratio; LDL Cholesterol,Calculated 29.6 mg/dL (0.0-131.0)
[2023-01-28 11:24] LABS: Appearance,Urine Clear (Clear); Bilirubin,Urine Negative (Negative); Blood,Urine Negative (Negative); Color,Urine Yellow; Glucose,Urine (UA) Negative (Negative); Hyaline Casts,Urine 11 /lpf (0-2); Ketones,Urine Negative (Negative); Leukocyte Esterase,Urine Negative (Negative); Mucus,Urine Rare /hpf; Nitrite,Urine Negative (Negative); Protein,Urine 1+ (Negative); RBC,Urine <1 /hpf (0-5); Specific Gravity,Urine 1.017 (1.001-1.035); Urobilinogen,Urine <2.0 mg/dL (<2.0); WBC,Urine 1 /hpf (0-5)
--- NOTE | 2023-01-28 13:54 | P.HPIM ---
History of Present Illness H&P Date: 01/27/23 Chief Complaint: Chest pain/shortness of breath 67-year-old male who presents emergency Department complaining of difficulty breathing and some chest pain. Patient states he had a AK in October he's been back multiple times since with the last time having fluid on his lungs. Patient states shortness of breath starting it worse today and he also noticed left- sided chest pain with no radiation. Patient denies any nausea. Patient denies any diaphoretic episodes. Patient denies headache patient denies numbness weakness per patient denies any abdominal pain patient denies any vomiting or diarrhea. Patient denies any recent fever chills or cough per patient states he has noticed increased swelling to bilateral legs. Workup completed in ED including a chest x-ray reveals increasing pleural effusion; mild elevation of troponin which is in fact lower than agents levels on the last visit, at 0.115, BNP is elevated at 8770, sodium of 139, potassium 3.9, BUN/creatinine of 30/1.68; WBC of 7.6, hemoglobin 8.5 and platelet count of 149 Review of Systems REVIEW OF SYSTEMS: CONSTITUTIONAL: No fever, no malaise, no fatigue. HEENT: No recent visual problems or hearing problems. Denied any sore throat. CARDIOVASCULAR: No chest pain, orthopnea, PND, no palpitations, no syncope. PULMONARY: No shortness of breath, no cough, no hemoptysis. GASTROINTESTINAL: No diarrhea, no nausea, no vomiting, no abdominal pain. NEUROLOGICAL: No headaches, no weakness, no numbness. HEMATOLOGICAL: Denies any bleeding or petechiae. GENITOURINARY: Denies any burning micturition, frequency, or urgency. MUSCULOSKELETAL/RHEUMATOLOGICAL: Denies any joint pain, swelling, or any muscle pain. ENDOCRINE: Denies any polyuria or polydipsia. The rest of the 14-point review of systems is negative. Past Medical History Past Medical History: Coronary Artery Disease (CAD), Chest Pain / Angina, COPD, GERD/Reflux, Hyperlipidemia, Hypertension, Myocardial Infarction (AK), Osteoarthritis (OA), Sleep Apnea/CPAP/BIPAP Additional Past Medical History / Comment(s): hiatal hernia, chronic back pain, L foot drop, numbness/tingling bilateral legs, HUSAM without device, states stents x7 Last Myocardial Infarction Date:: 11/11/22 History of Any Multi-Drug Resistant Organisms: None Reported Past Surgical History: Back Surgery, Cholecystectomy, Coronary Bypass/CABG, Heart Catheterization With Stent, Orthopedic Surgery Additional Past Surgical History / Comment(s): Back surg x 2 with cage. L tennis elbow surg. HEART STENTS X7. Colonoscopy. Lasik eye surgery bilaterally. Emergency Cabg [facility] [place] Past Anesthesia/Blood Transfusion Reactions: No Reported Reaction Additional Past Anesthesia/Blood Transfusion Reaction / Comment(s): Pt received blood during CABG without reaction. Date of Last Stent Placement:: Oct 2022 Past Psychological History: Anxiety, Depression, PTSD Smoking Status: Former smoker Past Alcohol Use History: None Reported Past Drug Use History: None Reported - Past Family History Father Family Medical History: Coronary Artery Disease (CAD), Deep Vein Thrombosis (DVT), GERD/Reflux, Hyperlipidemia Additional Family Medical History / Comment(s): Father of a AK in his 80's Mother Family Medical History: Coronary Artery Disease (CAD) Additional Family Medical History / Comment(s): Mother of a AK at the age o f 76yrs. Sister(s) Family Medical History: Cancer Additional Family Medical History / Comment(s): Lung cancer. Medications and Allergies Home Medications Medication Instructions Recorded Confirmed Type HYDROcodone/APAP 10-325MG [[place] 1 tab PO QID PRN 02/22/15 01/27/23 History 10-325] rOPINIRole HCL [Requip] 0.25 mg PO HS 09/29/17 01/27/23 History Apixaban [Eliquis] 2.5 mg PO BID #60 tab 11/18/22 01/27/23 Rx Aspirin 81 mg PO DAILY tab 11/18/22 01/27/23 Rx Clopidogrel [Plavix] 75 mg PO HS #30 tab 11/18/22 01/27/23 Rx Ezetimibe [Zetia] 10 mg PO DAILY #90 tab 11/18/22 01/27/23 Rx Nitroglycerin Sl Tabs [Nitrostat] 0.4 mg SUBLINGUAL Q5M PRN #25 tab 11/18/22 01/27/23 Rx Fenofibrate [Lofibra] 160 mg PO DAILY #30 tab 12/01/22 01/27/23 Rx Metoprolol Succinate (ER) [Toprol 50 mg PO DAILY #30 tab 12/01/22 01/27/23 Rx XL] Potassium Chloride ER [K-Dur 20] 20 meq PO BID 12/18/22 01/27/23 History Rosuvastatin [Crestor] 20 mg PO HS 12/18/22 01/27/23 History Cephalexin [Keflex] 500 mg PO QID #30 cap 01/23/23 01/27/23 Rx Furosemide [Lasix] 40 mg PO DAILY #180 tablet 01/23/23 01/27/23 Rx ALPRAZolam [Xanax] 1 mg PO TID PRN 01/27/23 01/27/23 History Fluticasone Nasal [place] [Flonase 1 spray EA NOSTRIL BID 01/27/23 01/27/23 History Nasal [place]] Fluticasone Propionate 110 Mcg 2 puff INHALATION RT-BID 01/27/23 01/27/23 History [Flovent 110 Mcg Inhaler] Sacubitril/Valsartan [Entresto 24 1 tab PO BID 01/27/23 01/27/23 History mg-26 mg Tablet] Allergies Allergy/AdvReac Type Severity Reaction Status Date / Time latex Allergy Swelling Verified 01/27/23 15:38 atorvastatin [From Lipitor] AdvReac JOINT PAIN Verified 01/27/23 15:38 Physical Exam Vitals: Vital Signs Temp Pulse Resp BP Pulse Ox 01/27/23 16:03 76 16 115/83 95 01/27/23 15:11 72 18 98/62 100 01/27/23 13:28 98.2 F 78 20 116/55 97 Intake and Output 01/27/23 01/27/23 01/27/23 06:59 14:59 22:59 Other: Weight 95.708 kg CONSTITUTIONAL: Denies fever or chills. HEENT: Denies blurred vision, vision changes, or eye pain. Denies hemoptysis CARDIOVASCULAR: Denies chest pain. Denies orthopnea. Denies PND. Denies palpitations reports lower extremity edema RESPIRATORY: Reports shortness of breath. GASTROINTESTINAL: Denies abdominal pain. Denies nausea or vomiting. HEMATOLOGIC: Denies bleeding disorders. GENITOURINARY: Denies any blood in urine. SKIN: Denies pruitis. Denies rash. Results CBC & Chem 7: 01/28/23 06:02 01/28/23 06:02 Labs: Abnormal Lab Results - Last 24 Hours (Table) 01/27/23 01/27/23 01/27/23 Range/Units 13:47 13:47 13:47 RBC 3.34 L (4.30-5.90) m/uL Hgb 9.5 L (13.0-17.5) gm/dL Hct 30.2 L (39.0-53.0) % RDW 18.2 H (11.5-15.5) % Plt Count 149 L (150-450) k/uL BUN 30 H (9-20) mg/dL Creatinine 1.68 H (0.66-1.25) mg/dL Glucose 109 H (74-99) mg/dL Troponin I 0.115 H* (0.000-0.034) ng/mL Assessment and Plan Assessment: 1. Acute on chronic systolic CHF; patient had an echocardiogram completed December 2022 which revealed an EF of 30-35% with moderate mitral regurgitation and moderate aortic insufficiency - Patient is currently placed on Lasix 40 mg IV every 12 hours; we will monitor strict HANS's, daily weights, low salt and fluid restricted diet - Cardiology is consulted for further recommendations 2. Elevated troponin, ischemic cardiomyopathy; patient has history of recent anterior STEMI and is status post PCI of SVG to LAD and aspiration thrombectomy in October 2022 - Patient is currently on IV heparin per protocol; we will monitor EKG and trend troponin -We will resume home medications in form of Eliquis 5 mg twice a day, aspirin 81 mg daily, Plavix 75 mg daily and Zetia 10 mg daily along with Crestor 20 mg daily at bedtime and metoprolol 50 mg daily and Imdur 30 mg daily - Cardiology to evaluate patient and make recommendations 3. Hypertension; metoprolol 50 mg daily, Imdur 30 mg daily 4. Hyperlipidemia; Crestor 20 mg by mouth daily at bedtime along with Zetia 10 mg daily 5. Chronic kidney disease stage III; seems to be at baseline; we will monitor strict HANS's, daily weights, renal function and electrolytes; avoid nephrotoxins and hypotension 6. End-stage COPD/chronic hypoxic respiratory failure; patient uses 4 L O2 per nasal cannula; currently at baseline; we will continue with home inhaler therapy DVT prophylaxis; SCDs/systemic anticoagulation CODE STATUS; full code
[2023-01-28] MEDS: CLOPIDOGREL 75 MG TAB PO SCH (21:43)
[2023-01-28] MEDS: NON FORMULARY DRUG (Rosuvastatin 20 MG Tablet) PO SCH (22:19)
[2023-01-28] MEDS: HEPARIN SOD,PORK IN 0.45% NACL 25,000 UNIT in 0.45% NACL 1 250ML.BAG IV SCH (22:19)
[2023-01-29] MEDS: NITROGLYCERIN OINT 1 INCH/GM PACKET TOPICAL SCH ×3 (02:17→12:59)
[2023-01-29] MEDS: HYDROcodone/APAP 10-325MG 1 EACH TAB PO PRN ×3 (04:38→20:29)
[2023-01-29 09:31] LABS: Calcium 8.4 mg/dL (8.4-10.2)
[2023-01-29] MEDS: ASPIRIN 81 MG PO SCH (09:46)
[2023-01-29] MEDS: SACUBITRIL/VALSARTAN 24 MG-26 MG TABLET PO SCH (09:46)
[2023-01-29] MEDS: POTASSIUM CHLORIDE ER 20 MEQ TAB.ER PO SCH ×2 (09:47→20:29)
[2023-01-29] MEDS: METOPROLOL SUCCINATE (ER) 50 MG TAB.ER.24H PO SCH (09:47)
[2023-01-29] MEDS: FENOFIBRATE 160 MG TAB PO SCH (09:47)
[2023-01-29] MEDS: EZETIMIBE 10 MG TAB PO SCH (09:47)
[2023-01-29] MEDS: FUROSEMIDE 10 MG/ML 4 ML VIAL IV SCH (09:47)
[2023-01-29] MEDS: ASPIRIN 325 MG TAB PO SCH (10:13)
--- NOTE | 2023-01-29 10:42 | XR ---
EXAMINATION TYPE: XR chest 2V DATE OF EXAM: 01/29/2023 COMPARISON: Chest x-ray 2 days ago HISTORY: Pleural effusion. TECHNIQUE: Frontal and lateral views of the chest are obtained. FINDINGS: There is persistent cardiomegaly with mild central vascular congestion and small to modera te-sized right pleural effusion and associated right basilar opacity favoring compressive atelectasis . Left lung remains clear. Overlying sternal wires and mediastinal clips are redemonstrated. The oss eous structures are intact. IMPRESSION: Cardiomegaly with mild central vascular congestion and small to moderate-sized right ple ural effusion redemonstrated. No significant change from most recent x-ray.
--- NOTE | 2023-01-29 10:46 | P.PN ---
Subjective Progress Note Date: 01/28/23 67-year-old male who presents emergency Department complaining of difficulty breathing and some chest pain. Patient states he had a CO in October he's been back multiple times since with the last time having fluid on his lungs. Patient states shortness of breath starting it worse today and he also noticed left- sided chest pain with no radiation. Patient denies any nausea. Patient denies any diaphoretic episodes. Patient denies headache patient denies numbness weakness per patient denies any abdominal pain patient denies any vomiting or diarrhea. Patient denies any recent fever chills or cough per patient states he has noticed increased swelling to bilateral legs. Workup completed in ED including a chest x-ray reveals increasing pleural effusion; mild elevation of troponin which is in fact lower than agents levels on the last visit, at 0.115, BNP is elevated at 8770, sodium of 139, potassium 3.9, BUN/creatinine of 30/1.68; WBC of 7.6, hemoglobin 8.5 and platelet count of 149 -- Patient with recent history of anterior STEMI with PCI of the SVG to LAD and aspiration thrombectomy - Patient has been evaluated by cardiology and is recommended to continue the IV heparin infusion for another 24 hours and hold oral anticoagulation therapy - Patient will remain on Lasix 40 mg IV every 12 hours Objective - Vital Signs Vital signs: Vital Signs Temp 98 F 01/28/23 06:36 Pulse 68 01/28/23 12:47 Resp 16 01/28/23 12:47 BP 100/62 01/28/23 12:47 Pulse Ox 98 01/28/23 12:47 FiO2 Intake & Output 01/27/23 01/28/23 01/28/23 18:59 06:59 18:59 Intake Total 570.009 Balance 570.009 Weight 95.708 kg Intake: Intake, IV Titration 90.009 Amount Heparin Sod,Pork in 0.45% 90.009 NaCl 25,000 unit In 0.45 % NaCl 1 250ml.bag @ 10. 45 UNITS/KG/HR 10.001 mls /hr IV .Q24H [facility] Rx#: [id number] Oral 480 - Exam PHYSICAL EXAMINATION: GENERAL: The patient is alert and oriented x3, not in any acute distress. Well developed, well nourished. HEENT: Pupils are round and equally reacting to light. EOMI. No scleral icterus. No conjunctival pallor. Normocephalic, atraumatic. No pharyngeal erythema. No thyromegaly. CARDIOVASCULAR: S1 and S2 present. No murmurs, rubs, or gallops. PULMONARY: Chest is clear to auscultation, no wheezing or crackles. ABDOMEN: Soft, nontender, nondistended, normoactive bowel sounds. No palpable organomegaly. MUSCULOSKELETAL: No joint swelling or deformity. EXTREMITIES: No cyanosis, clubbing, or pedal edema. NEUROLOGICAL: Gross neurological examination did not reveal any focal deficits. SKIN: No rashes. - Labs CBC & Chem 7: 01/28/23 06:02 01/29/23 08:37 Labs: Abnormal Lab Results - Last 24 Hours (Table) 01/27/23 01/27/23 01/27/23 Range/Units 13:47 13:47 13:47 RBC 3.34 L (4.30-5.90) m/uL Hgb 9.5 L (13.0-17.5) gm/dL Hct 30.2 L (39.0-53.0) % RDW 18.2 H (11.5-15.5) % Plt Count 149 L (150-450) k/uL APTT (22.0-30.0) sec BUN 30 H (9-20) mg/dL Creatinine 1.68 H (0.66-1.25) mg/dL Glucose 109 H (74-99) mg/dL Troponin I 0.115 H* (0.000-0.034) ng/mL HDL Cholesterol (40.00-60.00) mg/dL Procalcitonin (0.02-0.09) ng/mL Urine Protein (Negative) Hyaline Casts (0-2) /lpf Urine Mucus (None) /hpf 01/27/23 01/27/23 01/28/23 Range/Units 16:58 19:49 06:02 RBC (4.30-5.90) m/uL Hgb (13.0-17.5) gm/dL Hct (39.0-53.0) % RDW (11.5-15.5) % Plt Count (150-450) k/uL APTT (22.0-30.0) sec BUN 34 H (9-20) mg/dL Creatinine 1.72 H (0.66-1.25) mg/dL Glucose (74-99) mg/dL Troponin I 0.133 H* 0.141 H* (0.000-0.034) ng/mL HDL Cholesterol 28.00 L (40.00-60.00) mg/dL Procalcitonin (0.02-0.09) ng/mL Urine Protein (Negative) Hyaline Casts (0-2) /lpf Urine Mucus (None) /hpf 01/28/23 01/28/23 01/28/23 Range/Units 06:02 06:02 06:02 RBC 3.09 L (4.30-5.90) m/uL Hgb 8.9 L (13.0-17.5) gm/dL Hct 28.1 L (39.0-53.0) % RDW 17.8 H (11.5-15.5) % Plt Count 125 L (150-450) k/uL APTT 32.8 H (22.0-30.0) sec BUN (9-20) mg/dL Creatinine (0.66-1.25) mg/dL Glucose (74-99) mg/dL Troponin I (0.000-0.034) ng/mL HDL Cholesterol (40.00-60.00) mg/dL Procalcitonin 0.10 H (0.02-0.09) ng/mL Urine Protein (Negative) Hyaline Casts (0-2) /lpf Urine Mucus (None) /hpf 01/28/23 Range/Units 08:58 RBC (4.30-5.90) m/uL Hgb (13.0-17.5) gm/dL Hct (39.0-53.0) % RDW (11.5-15.5) % Plt Count (150-450) k/uL APTT (22.0-30.0) sec BUN (9-20) mg/dL Creatinine (0.66-1.25) mg/dL Glucose (74-99) mg/dL Troponin I (0.000-0.034) ng/mL HDL Cholesterol (40.00-60.00) mg/dL Procalcitonin (0.02-0.09) ng/mL Urine Protein 1+ H (Negative) Hyaline Casts 11 H (0-2) /lpf Urine Mucus Rare H (None) /hpf Assessment and Plan Assessment: 1. Acute on chronic systolic CHF; patient had an echocardiogram completed December 2022 which revealed an EF of 30-35% with moderate mitral regurgitation and moderate aortic insufficiency - Patient is currently placed on Lasix 40 mg IV every 12 hours; we will monitor strict HANS's, daily weights, low salt and fluid restricted diet - Cardiology is consulted for further recommendations 2. Elevated troponin, ischemic cardiomyopathy; patient has history of recent anterior STEMI and is status post PCI of SVG to LAD and aspiration thrombectomy in October 2022 - Patient is currently on IV heparin per protocol; we will monitor EKG and trend troponin -We will resume home medications in form of Eliquis 5 mg twice a day, aspirin 81 mg daily, Plavix 75 mg daily and Zetia 10 mg daily along with Crestor 20 mg daily at bedtime and metoprolol 50 mg daily and Imdur 30 mg daily - Cardiology to evaluate patient and make recommendations 3. Hypertension; metoprolol 50 mg daily, Imdur 30 mg daily 4. Hyperlipidemia; Crestor 20 mg by mouth daily at bedtime along with Zetia 10 mg daily 5. Chronic kidney disease stage III; seems to be at baseline; we will monitor strict HANS's, daily weights, renal function and electrolytes; avoid nephrotoxins and hypotension 6. End-stage COPD/chronic hypoxic respiratory failure; patient uses 4 L O2 per nasal cannula; currently at baseline; we will continue with home inhaler therapy DVT prophylaxis; SCDs/systemic anticoagulation CODE STATUS; full code
--- NOTE | 2023-01-29 12:06 | P.PN ---
Subjective Progress Note Date: 01/29/23 The patient's 67-year-old male who is admitted to the hospital with worsening shortness of breath. He has a known ejection fraction of 30-35% and congestive heart failure. On arrival he had increased oxygen requirements as well as vascular congestion and pleural effusion noted on chest x-ray. He's been diuresed with IV furosemide over the last 24 hours, which we'll transition to oral tomorrow. Kidney function has been climbing. Consideration for third spacing with his right-sided pleural effusion as well as significant lower extremity edema. GENERAL: Well-appearing, well-nourished and in no acute distress. NECK: Supple without JVD or thyromegaly. LUNGS: Breath sounds severely diminished to auscultation in the right lower lobe. Respiration equal and unlabored. No wheezes, rales or rhonchi. HEART: Regular rate and rhythm without murmurs, rubs or gallops. S1 and S2 heard. EXTREMITIES: Normal range of motion, +3 to +4 pitting edema. No clubbing or cyanosis. TELEMETRY: Sinus rhythm overnight LABS: Sodium 135, potassium 4.0, BUN 36, creatinine 2.34 IMPRESSION: Acute on chronic systolic heart failure, EF 30-35% Mild to moderate sized right pleural effusion Ischemic cardiomyopathy Chronic kidney disease, worsening renal function History of anterior wall ST elevated myocardial infarction History of V. fib arrest Hypertension Hyperlipidemia PLAN: Switch to oral furosemide tomorrow Encourage aggressive pulmonary hygiene If creatinine remains high or elevates further, hold Entresto temporarily Discontinue heparin drip and resume novel anticoagulation Further recommendations based on clinical course I am dictating on behalf of Dr Andrew Chacon's history/physical and assessment/ plan. Objective - Vital Signs Vital signs: Vital Signs Temp 98 F 01/29/23 04:00 Pulse 78 01/29/23 07:44 Resp 18 01/29/23 07:44 BP 102/55 01/29/23 09:39 Pulse Ox 94 L 01/29/23 09:49 FiO2 Intake & Output 01/28/23 01/29/23 01/29/23 18:59 06:59 18:59 Intake Total 1024.986 63.014 628.898 Output Total 175 400 Balance 849.986 -336.986 628.898 Weight 116.5 kg Intake: Intake, IV Titration 186.986 63.014 148.898 Amount Heparin Sod,Pork in 0.45% 186.986 63.014 148.898 NaCl 25,000 unit In 0.45 % NaCl 1 250ml.bag @ 10. 45 UNITS/KG/HR 10.001 mls /hr IV .Q24H [facility] Rx#: [id number] Oral 838 480 Output: Urine 175 400 Other: Voiding Method Urinal - Labs CBC & Chem 7: 01/28/23 06:02 01/29/23 08:37 Labs: Abnormal Lab Results - Last 24 Hours (Table) 01/28/23 01/29/23 01/29/23 Range/Units 14:08 08:37 08:37 APTT 50.6 H 31.2 H (22.0-30.0) sec Sodium 135 L (137-145) mmol/L BUN 36 H (9-20) mg/dL Creatinine 2.34 H (0.66-1.25) mg/dL Glucose 100 H (74-99) mg/dL
--- NOTE | 2023-01-29 16:00 | P.NPCON ---
History of Present Illness - Reason for Consult Consult date: 01/29/23 acute renal failure - Chief Complaint Hypoxia - History of Present Illness 67-year-old gentleman coming to the hospital with the above complaints. He normally wears 4 L of oxygen at home. When the home care nurse arrived, he was hypoxic appearing blue. He was shipped to the hospital. History of CHF with systolic dysfunction, takes Lasix and entresto. BNP was 8770. While in the hospital hypotensive episodes. Baseline creatinine 1.2 MG per DL. Multiple episodes of AK I's in the past. Chest x-ray showed pleural effusion. He was started on Lasix 80 mg IV daily. Review of Systems Constitutional: Reports as per HPI Past Medical History Past Medical History: Coronary Artery Disease (CAD), Chest Pain / Angina, COPD, GERD/Reflux, Hyperlipidemia, Hypertension, Myocardial Infarction (LA), Osteoarthritis (OA), Sleep Apnea/CPAP/BIPAP Additional Past Medical History / Comment(s): hiatal hernia, chronic back pain, L foot drop, numbness/tingling bilateral legs, HUSAM without device, states stents x7 Last Myocardial Infarction Date:: 11/11/22 History of Any Multi-Drug Resistant Organisms: None Reported Past Surgical History: Back Surgery, Cholecystectomy, Coronary Bypass/CABG, Heart Catheterization With Stent, Orthopedic Surgery Additional Past Surgical History / Comment(s): Back surg x 2 with cage. L tennis elbow surg. HEART STENTS X7. Colonoscopy. Lasik eye surgery bilaterally. Emergency Cabg [facility] Past Anesthesia/Blood Transfusion Reactions: No Reported Reaction Additional Past Anesthesia/Blood Transfusion Reaction / Comment(s): Pt received blood during CABG without reaction. Date of Last Stent Placement:: Oct 2022 Past Psychological History: Anxiety, Depression, PTSD Smoking Status: Former smoker Past Alcohol Use History: None Reported Past Drug Use History: None Reported - Past Family History Father Family Medical History: Coronary Artery Disease (CAD), Deep Vein Thrombosis (DVT), GERD/Reflux, Hyperlipidemia Additional Family Medical History / Comment(s): Father of a LA in his 80's Mother Family Medical History: Coronary Artery Disease (CAD) Additional Family Medical History / Comment(s): Mother of a LA at the age of 76yrs. Sister(s) Family Medical History: Cancer Additional Family Medical History / Comment(s): Lung cancer. Medications and Allergies Home Medications Medication Instructions Recorded Confirmed Type HYDROcodone/APAP 10-325MG [[place] 1 tab PO QID PRN 02/22/15 01/27/23 History 10-325] rOPINIRole HCL [Requip] 0.25 mg PO HS 09/29/17 01/27/23 History Apixaban [Eliquis] 2.5 mg PO BID #60 tab 11/18/22 01/27/23 Rx Aspirin 81 mg PO DAILY tab 11/18/22 01/27/23 Rx Clopidogrel [Plavix] 75 mg PO HS #30 tab 11/18/22 01/27/23 Rx Ezetimibe [Zetia] 10 mg PO DAILY #90 tab 11/18/22 01/27/23 Rx Nitroglycerin Sl Tabs [Nitrostat] 0.4 mg SUBLINGUAL Q5M PRN #25 tab 11/18/22 01/27/23 Rx Fenofibrate [Lofibra] 160 mg PO DAILY #30 tab 12/01/22 01/27/23 Rx Metoprolol Succinate (ER) [Toprol 50 mg PO DAILY #30 tab 12/01/22 01/27/23 Rx XL] Potassium Chloride ER [K-Dur 20] 20 meq PO BID 12/18/22 01/27/23 History Rosuvastatin [Crestor] 20 mg PO HS 12/18/22 01/27/23 History Cephalexin [Keflex] 500 mg PO QID #30 cap 01/23/23 01/27/23 Rx Furosemide [Lasix] 40 mg PO DAILY #180 tablet 01/23/23 01/27/23 Rx ALPRAZolam [Xanax] 1 mg PO TID PRN 01/27/23 01/27/23 History Fluticasone Nasal [place] [Flonase 1 spray EA NOSTRIL BID 01/27/23 01/27/23 History Nasal [place]] Fluticasone Propionate 110 Mcg 2 puff INHALATION RT-BID 01/27/23 01/27/23 History [Flovent 110 Mcg Inhaler] Sacubitril/Valsartan [Entresto 24 1 tab PO BID 01/27/23 01/27/23 History mg-26 mg Tablet] Allergies Allergy/AdvReac Type Severity Reaction Status Date / Time latex Allergy Swelling Verified 01/27/23 15:38 atorvastatin [From Lipitor] AdvReac JOINT PAIN Verified 01/27/23 15:38 Physical Exam Vitals: Vital Signs Temp Pulse Resp BP BP Pulse Ox 01/29/23 12:57 74 20 100/62 91 L 01/29/23 09:49 94 L 01/29/23 09:39 102/55 01/29/23 07:44 78 18 90/60 97 01/29/23 04:00 98 F 74 20 100/66 95 01/29/23 00:00 110/62 01/28/23 20:00 98.2 F 70 20 100/58 95 01/28/23 17:05 74 22 84/54 96 Intake and Output 01/29/23 01/29/23 01/29/23 06:59 14:59 22:59 Intake Total 1168.898 Output Total 400 Balance -400 1168.898 Intake: Intake, IV Titration 148.898 Amount Heparin Sod,Pork in 0.45% 148.898 NaCl 25,000 unit In 0.45 % NaCl 1 250ml.bag @ 10. 45 UNITS/KG/HR 10.001 mls /hr IV .Q24H [facility] Rx#: [id number] Oral 1020 Output: Urine 400 Other: Voiding Method Urinal Weight 116.5 kg No acute distress S1-S2 heard Decreased breath sounds Abdomen distended Edema Results - Lab Results Most recent lab results Calcium 8.4 mg/dL (8.4-10.2) 01/29/23 08:37 Magnesium 1.9 mg/dL (1.6-2.3) 01/27/23 13:47 01/28/23 06:02 01/29/23 08:37 Assessment and Plan Assessment: #1 acute kidney injury multifactorial. -Cardiorenal syndrome with volume overload -Hemodynamic ATN with low blood pressures. -Baseline creatinine 1.2 MG per DL. #2 CKD3a suspected nephrosclerosis #3 CHF with systolic dysfunction #4 volume overload #5 hypotensive episodes Plan: #1 increase Lasix to 80 mg IV twice a day #2 discontinue entresto, with acute kidney injury and hypotensive episodes #3 admitted to drain for hemodynamic support #4 labs in the morning
[2023-01-29] MEDS: FUROSEMIDE 80 MG TAB PO SCH (16:14)
--- NOTE | 2023-01-29 16:44 | P.PN ---
Subjective Progress Note Date: 01/29/23 Principal diagnosis: Acute on chronic systolic CHF Mild to moderate right-sided pleural effusion Ischemic cardiomyopathy Acute on chronic kidney disease 67-year-old male who presents emergency Department complaining of difficulty breathing and some chest pain. Patient states he had a [place] in October he's been back multiple times since with the last time having fluid on his lungs. Patient states shortness of breath starting it worse today and he also noticed left- sided chest pain with no radiation. Patient denies any nausea. Patient denies any diaphoretic episodes. Patient denies headache patient denies numbness weakness per patient denies any abdominal pain patient denies any vomiting or diarrhea. Patient denies any recent fever chills or cough per patient states he has noticed increased swelling to bilateral legs. Workup completed in ED including a chest x-ray reveals increasing pleural effusion; mild elevation of troponin which is in fact lower than agents levels on the last visit, at 0.115, BNP is elevated at 8770, sodium of 139, potassium 3.9, BUN/creatinine of 30/1.68; WBC of 7.6, hemoglobin 8.5 and platelet count of 149 -- Patient with recent history of anterior STEMI with PCI of the SVG to LAD and aspiration thrombectomy - Patient has been evaluated by cardiology and is recommended to continue the IV heparin infusion for another 24 hours and hold oral anticoagulation therapy - Patient will remain on Lasix 40 mg IV every 12 hours 01/29/2023 Patient is seen and evaluated in room at bedside; denies any complaints of chest pain or shortness of breath Vital signs are reviewed and remained stable Blood work reveals worsening renal function; patient has been evaluated by nephrology and is recommended to increase Lasix up to 80 mg IV every 12 hours; cardiology recommending to make switch to oral Lasix tomorrow morning -- IV heparin is discontinued and patient is to resume oral anticoagulation Objective - Vital Signs Vital signs: Vital Signs Temp 98 F 01/29/23 04:00 Pulse 78 01/29/23 07:44 Resp 18 01/29/23 07:44 BP 102/55 01/29/23 09:39 Pulse Ox 94 L 01/29/23 09:49 FiO2 Intake & Output 01/28/23 01/29/23 01/29/23 18:59 06:59 18:59 Intake Total 1024.986 63.014 628.898 Output Total 175 400 Balance 849.986 -336.986 628.898 Weight 116.5 kg Intake: Intake, IV Titration 186.986 63.014 148.898 Amount Heparin Sod,Pork in 0.45% 186.986 63.014 148.898 NaCl 25,000 unit In 0.45 % NaCl 1 250ml.bag @ 10. 45 UNITS/KG/HR 10.001 mls /hr IV .Q24H [facility] Rx#: [id number] Oral 838 480 Output: Urine 175 400 Other: Voiding Method Urinal - Exam PHYSICAL EXAMINATION: GENERAL: The patient is alert and oriented x3, not in any acute distress. Well developed, well nourished. HEENT: Pupils are round and equally reacting to light. EOMI. No scleral icterus. No conjunctival pallor. Normocephalic, atraumatic. No pharyngeal erythema. No thyromegaly. CARDIOVASCULAR: S1 and S2 present. No murmurs, rubs, or gallops. PULMONARY: Chest is clear to auscultation, no wheezing or crackles. ABDOMEN: Soft, nontender, nondistended, normoactive bowel sounds. No palpable organomegaly. MUSCULOSKELETAL: No joint swelling or deformity. EXTREMITIES: No cyanosis, clubbing, or pedal edema. NEUROLOGICAL: Gross neurological examination did not reveal any focal deficits. SKIN: No rashes. - Labs CBC & Chem 7: 01/28/23 06:02 01/29/23 08:37 Labs: Abnormal Lab Results - Last 24 Hours (Table) 01/28/23 01/28/23 01/28/23 Range/Units 06:02 06:02 08:58 APTT (22.0-30.0) sec Sodium (137-145) mmol/L BUN (9-20) mg/dL Creatinine (0.66-1.25) mg/dL Glucose (74-99) mg/dL HDL Cholesterol 28.00 L (40.00-60.00) mg/dL Procalcitonin 0.10 H (0.02-0.09) ng/mL Urine Protein 1+ H (Negative) Hyaline Casts 11 H (0-2) /lpf Urine Mucus Rare H (None) /hpf 01/28/23 01/29/23 01/29/23 Range/Units 14:08 08:37 08:37 APTT 50.6 H 31.2 H (22.0-30.0) sec Sodium 135 L (137-145) mmol/L BUN 36 H (9-20) mg/dL Creatinine 2.34 H (0.66-1.25) mg/dL Glucose 100 H (74-99) mg/dL HDL Cholesterol (40.00-60.00) mg/dL Procalcitonin (0.02-0.09) ng/mL Urine Protein (Negative) Hyaline Casts (0-2) /lpf Urine Mucus (None) /hpf Assessment and Plan Assessment: 1. Acute on chronic systolic CHF; patient had an echocardiogram completed December 2022 which revealed an EF of 30-35% with moderate mitral regurgitation and moderate aortic insufficiency - Patient is currently placed on Lasix 40 mg IV every 12 hours; we will monitor strict HANS's, daily weights, low salt and fluid restricted diet - Cardiology is consulted for further recommendations 2. Elevated troponin, ischemic cardiomyopathy; patient has history of recent anterior STEMI and is status post PCI of SVG to LAD and aspiration thrombectomy in October 2022 - Patient is currently on IV heparin per protocol; we will monitor EKG and trend troponin -We will resume home medications in form of Eliquis 5 mg twice a day, aspirin 81 mg daily, Plavix 75 mg daily and Zetia 10 mg daily along with Crestor 20 mg daily at bedtime and metoprolol 50 mg daily and Imdur 30 mg daily - Cardiology to evaluate patient and make recommendations 3. Hypertension; metoprolol 50 mg daily, Imdur 30 mg daily 4. Hyperlipidemia; Crestor 20 mg by mouth daily at bedtime along with Zetia 10 mg daily 5. Chronic kidney disease stage III; seems to be at baseline; we will monitor strict HANS's, daily weights, renal function and electrolytes; avoid nephrotoxins and hypotension 6. End-stage COPD/chronic hypoxic respiratory failure; patient uses 4 L O2 per nasal cannula; currently at baseline; we will continue with home inhaler therapy DVT prophylaxis; SCDs/systemic anticoagulation CODE STATUS; full code
[2023-01-29] MEDS: MIDODRINE 5 MG TAB PO SCH (17:44)
[2023-01-29] MEDS: NON FORMULARY DRUG (Rosuvastatin 20 MG Tablet) PO SCH (20:12)
[2023-01-29] MEDS: CLOPIDOGREL 75 MG TAB PO SCH (20:29)
[2023-01-29] MEDS: APIXABAN 5 MG TAB PO SCH (20:30)
[2023-01-29] MEDS: ALPRAZolam 1 MG TAB PO PRN (20:33)
[2023-01-30] MEDS: HYDROcodone/APAP 10-325MG 1 EACH TAB PO PRN ×3 (03:56→16:27)
[2023-01-30] MEDS: MIDODRINE 5 MG TAB PO SCH ×3 (06:43→16:26)
[2023-01-30] MEDS ORDERED: FUROSEMIDE 80 MG TAB PO SCH (09:00)
[2023-01-30 09:15] LABS: Calcium 8.9 mg/dL (8.4-10.2); Potassium 4.5 mmol/L (3.5-5.1)
[2023-01-30] MEDS: POTASSIUM CHLORIDE ER 20 MEQ TAB.ER PO SCH ×2 (09:48→19:47)
[2023-01-30] MEDS: FENOFIBRATE 160 MG TAB PO SCH (09:48)
[2023-01-30] MEDS: EZETIMIBE 10 MG TAB PO SCH (09:48)
[2023-01-30] MEDS: METOPROLOL SUCCINATE (ER) 50 MG TAB.ER.24H PO SCH (09:48)
[2023-01-30] MEDS: ASPIRIN 81 MG PO SCH (09:48)
[2023-01-30] MEDS: FUROSEMIDE 80 MG TAB PO SCH ×2 (09:48→16:26)
[2023-01-30] MEDS: APIXABAN 5 MG TAB PO SCH ×2 (09:48→19:47)
[2023-01-30] MEDS: ALPRAZolam 1 MG TAB PO PRN ×2 (09:59→19:47)
--- NOTE | 2023-01-30 10:55 | P.PN ---
Subjective Patient is seen in follow-up for acute kidney injury on chronic kidney disease. Renal function stable. Now on oral Lasix. Edema improved. Nonoliguric. Denies chest pain or shortness of breath. Vital signs are stable. General: No acute distress. HEENT: Head exam is unremarkable. LUNGS: No audible rhonchi or wheezes. HEART: Rate and Rhythm are regular. ABDOMEN: Nontender, obese. EXTREMITITES: 1+ edema. Objective - Vital Signs Vital signs: Vital Signs Temp 98 F 01/30/23 09:45 Pulse 81 01/30/23 09:45 Resp 18 01/30/23 09:45 BP 94/59 01/30/23 09:45 Pulse Ox 96 01/30/23 09:45 FiO2 Intake & Output 01/29/23 01/30/23 01/30/23 18:59 06:59 18:59 Intake Total 1168.898 480 118 Output Total 500 Balance 1168.898 -20 118 Intake: Intake, IV Titration 148.898 Amount Heparin Sod,Pork in 0.45% 148.898 NaCl 25,000 unit In 0.45 % NaCl 1 250ml.bag @ 10. 45 UNITS/KG/HR 10.001 mls /hr IV .Q24H [facility] Rx#: [id number] Oral 1020 480 118 Output: Urine 500 Other: Voiding Method Urinal Urinal # Voids 1 - Labs CBC & Chem 7: 01/28/23 06:02 01/30/23 08:27 Labs: Abnormal Lab Results - Last 24 Hours (Table) 01/30/23 Range/Units 08:27 Sodium 135 L (137-145) mmol/L Chloride 97 L (98-107) mmol/L BUN 37 H (9-20) mg/dL Creatinine 2.29 H (0.66-1.25) mg/dL Assessment and Plan Plan: Assessment: 1. Acute kidney injury secondary to ATN secondary to cardiorenal syndrome. Renal function stable. Creatinine 2.26 today. No hydronephrosis noted on recent ultrasound. 2. Chronic kidney disease stage IIIa baseline creatinine near 1.2. Suspect nephrosclerosis. 3. Volume overload. 4. Acute on chronic systolic CHF with ejection fraction of 35%. Plan: Maintain Lasix. Repeat BMP and magnesium level 2-3 days postdischarge. Follow up outpatient in 1 week. Advised patient to follow low salt diet and to maintain fluid restriction of less than 40-45 ounces per day. He was also advised to monitor his weight closely at home and to notify physician if develops worsening edema or gains more than 3 pounds in 1 week duration.
--- NOTE | 2023-01-30 12:51 | P.PN ---
Subjective Progress Note Date: 01/30/23 HISTORY OF PRESENT ILLNESS: This is a 67-year-old male with a past medical history significant for coronary artery disease with previous CABG and stenting, hypertension, and hyperli pidemia, chronic hypoxic respiratory failure on home O2 at 4 L nasal cannula. Patient follows in the office with Dr. Wiggins. We have been asked to see the patient in consultation for chest pain, pleural effusion. Patient was admitted to the hospital in October 2022 secondary to STEMI and underwent SVG to LAD and aspiration thrombectomy. His procedure was complicated with ventricle fibrillation upon crossing the aortic valve. In addition, patient has had at least 3 hospitalizations since October treated for coronary artery disease, ischemic cardiomyopathy, presyncope with low blood pressures. Patient was just discharged from the hospital on January 23. He gives history that his home care nurse was at his home and his lips were purple. He states he's had shortness of breath ever since his ST elevated [place]. He has noticed increased lower extremity edema. He states he is taking all of his medications asked her acted. His shortness of breath seemed to get worse while he was sitting in a chair yesterday but he had no chest pain. Because the nurse noted his lips were purple, she contacted EMS and patient was brought into the hospital. * EKG reveals sinus mechanism with ST abnormalities consistent with old [place] * Laboratory data: WBC 6.6, hemoglobin 8.9, platelet count 125. INR 1.1. T roponin 0.115, 0.113, 0.141. ProBNP 7880. BUN 34 creatinine 1.72. * Current home cardiac medications include Eliquis 5mg BID, aspirin 81 mg daily, Plavix 75 mg at night, Zetia 10 mg daily, Lasix 40 mg daily, Imdur 30 mg daily, metoprolol succinate 50 mg daily, potassium chloride 20 mEq twice daily and Crestor 20 mg at night, Nitrostat as needed * limited echocardiogram obtained in December 2022 revealed ejection fraction 30- 35% with moderate mitral regurgitation and moderate aortic insufficiency * Cardiac catheterization: 11/11/2022 revealed acute total occlusion of the SVG to LAD with large thrombus burden, status post PCI of the SVG to LAD with aspiration thrombectomy. Procedure was complicated with ventricular fibrillation upon crossing the aortic valve. 01/29/2023 The patient's 67-year-old male who is admitted to the hospital with worsening shortness of breath. He has a known ejection fraction of 30-35% and congestive heart failure. On arrival he had increased oxygen requirements as well as vascular congestion and pleural effusion noted on chest x-ray. He's been diuresed with IV furosemide over the last 24 hours, which we'll transition to oral tomorrow. Kidney function has been climbing. Consideration for third spacing with his right-sided pleural effusion as well as significant lower extremity edema. 01/30/2023 Patient examined this morning at the bedside. Patient denies chest pain or pressure. He currently denies shortness of breath. The patient continues to have lower extremity edema although he states it is improved. He has been transitioned to oral Lasix 80 mg twice a day. He is hoping to be discharged home today. PHYSICAL EXAM: VITAL SIGNS: Reviewed. GENERAL: Well-developed in no acute distress. NECK: Supple. No JVD or thyromegaly LUNGS: Respirations even and unlabored. Lungs essentially clear to auscultation bilaterally. HEART: Regular rate and rhythm. S1 and S2 heard. EXTREMITIES: Normal range of motion. No clubbing or cyanosis. Peripheral pulses intact. 1-2+ bilateral lower extremity edema ASSESSMENT: Acute on chronic systolic heart failure with EF of 30-35% Ischemic cardiomyopathy Chronic kidney disease History of anterior STEMI status post PCI of the SVG to LAD and aspiration thrombectomy, complicated by ventricular fibrillation, October 2022 Coronary artery disease with previous CABG and PCI Hypertension Hyperlipidemia PLAN: Continue current cardiac medications Continue oral lasix 80mg BID Patient instructed on low sodium diet Patient may be discharged home today from a cardiac standpoint Entresto remains on hold secondary to kidney function He is to follow up on an outpatient basis with Dr. Wiggins Nurse practitioner note has been reviewed by physician. Signing provider agrees with the documented findings, assessment, and plan of care. Objective - Vital Signs Vital signs: Vital Signs Temp 98 F 01/30/23 09:45 Pulse 81 01/30/23 09:45 Resp 18 01/30/23 09:45 BP 94/59 01/30/23 09:45 Pulse Ox 96 01/30/23 09:45 FiO2 Intake & Output 01/29/23 01/30/23 01/30/23 18:59 06:59 18:59 Intake Total 1168.898 480 118 Output Total 500 Balance 1168.898 -20 118 Intake: Intake, IV Titration 148.898 Amount Heparin Sod,Pork in 0.45% 148.898 NaCl 25,000 unit In 0.45 % NaCl 1 250ml.bag @ 10. 45 UNITS/KG/HR 10.001 mls /hr IV .Q24H [facility] Rx#: [id number] Oral 1020 480 118 Output: Urine 500 Other: Voiding Method Urinal Urinal # Voids 1 - Labs CBC & Chem 7: 01/28/23 06:02 01/30/23 08:27 Labs: Abnormal Lab Results - Last 24 Hours (Table) 01/30/23 Range/Units 08:27 Sodium 135 L (137-145) mmol/L Chloride 97 L (98-107) mmol/L BUN 37 H (9-20) mg/dL Creatinine 2.29 H (0.66-1.25) mg/dL
--- NOTE | 2023-01-30 15:44 | P.PN ---
Progress Note - Text Progress Note Date: 01/30/23 Patient sleeping and requested I return later to talk. Palliative care pamphlet left on table. Will return to see patient tomorrow. Paulette Voss [facility] Palliative Care/Urology [place] [id number] Email: [email or web address]
[2023-01-30] MEDS: NON FORMULARY DRUG (Rosuvastatin 20 MG Tablet) PO SCH (19:47)
[2023-01-30] MEDS: CLOPIDOGREL 75 MG TAB PO SCH (19:47)
[2023-01-31] MEDS: HYDROcodone/APAP 10-325MG 1 EACH TAB PO PRN ×3 (03:53→21:14)
[2023-01-31] MEDS: ALPRAZolam 1 MG TAB PO PRN ×2 (03:53→21:14)
[2023-01-31] MEDS: MIDODRINE 5 MG TAB PO SCH ×3 (06:37→16:47)
--- NOTE | 2023-01-31 11:36 | P.PN ---
Subjective Progress Note Date: 01/31/23 HISTORY OF PRESENT ILLNESS: This is a 67-year-old male with a past medical history significant for coronary artery disease with previous CABG and stenting, hypertension, and hyperli pidemia, chronic hypoxic respiratory failure on home O2 at 4 L nasal cannula. Patient follows in the office with Dr. Wiggins. We have been asked to see the patient in consultation for chest pain, pleural effusion. Patient was admitted to the hospital in October 2022 secondary to STEMI and underwent SVG to LAD and aspiration thrombectomy. His procedure was complicated with ventricle fibrillation upon crossing the aortic valve. In addition, patient has had at least 3 hospitalizations since October treated for coronary artery disease, ischemic cardiomyopathy, presyncope with low blood pressures. Patient was just discharged from the hospital on January 23. He gives history that his home care nurse was at his home and his lips were purple. He states he's had shortness of breath ever since his ST elevated [place]. He has noticed increased lower extremity edema. He states he is taking all of his medications asked her acted. His shortness of breath seemed to get worse while he was sitting in a chair yesterday but he had no chest pain. Because the nurse noted his lips were purple, she contacted EMS and patient was brought into the hospital. * EKG reveals sinus mechanism with ST abnormalities consistent with old [place] * Laboratory data: WBC 6.6, hemoglobin 8.9, platelet count 125. INR 1.1. T roponin 0.115, 0.113, 0.141. ProBNP 7880. BUN 34 creatinine 1.72. * Current home cardiac medications include Eliquis 5mg BID, aspirin 81 mg daily, Plavix 75 mg at night, Zetia 10 mg daily, Lasix 40 mg daily, Imdur 30 mg daily, metoprolol succinate 50 mg daily, potassium chloride 20 mEq twice daily and Crestor 20 mg at night, Nitrostat as needed * limited echocardiogram obtained in December 2022 revealed ejection fraction 30- 35% with moderate mitral regurgitation and moderate aortic insufficiency * Cardiac catheterization: 11/11/2022 revealed acute total occlusion of the SVG to LAD with large thrombus burden, status post PCI of the SVG to LAD with aspiration thrombectomy. Procedure was complicated with ventricular fibrillation upon crossing the aortic valve. 01/29/2023 The patient's 67-year-old male who is admitted to the hospital with worsening shortness of breath. He has a known ejection fraction of 30-35% and congestive heart failure. On arrival he had increased oxygen requirements as well as vascular congestion and pleural effusion noted on chest x-ray. He's been diuresed with IV furosemide over the last 24 hours, which we'll transition to oral tomorrow. Kidney function has been climbing. Consideration for third spacing with his right-sided pleural effusion as well as significant lower extremity edema. 01/30/2023 Patient examined this morning at the bedside. Patient denies chest pain or pressure. He currently denies shortness of breath. The patient continues to have lower extremity edema although he states it is improved. He has been transitioned to oral Lasix 80 mg twice a day. He is hoping to be discharged home today. 01/31/2023 Patient examined this morning at the bedside. No complain of chest pain or pressure. No complaints of shortness of breath. Vital signs are stable. PHYSICAL EXAM: VITAL SIGNS: Reviewed. GENERAL: Well-developed in no acute distress. NECK: Supple. No JVD or thyromegaly LUNGS: Respirations even and unlabored. Lungs essentially clear to auscultation bilaterally. HEART: Regular rate and rhythm. S1 and S2 heard. EXTREMITIES: Normal range of motion. No clubbing or cyanosis. Peripheral pu lses intact. 1-2+ bilateral lower extremity edema ASSESSMENT: Acute on chronic systolic heart failure with EF of 30-35% Ischemic cardiomyopathy Chronic kidney disease History of anterior STEMI status post PCI of the SVG to LAD and aspiration thrombectomy, complicated by ventricular fibrillation, October 2022 Coronary artery disease with previous CABG and PCI Hypertension Hyperlipidemia PLAN: Continue current cardiac medications Continue oral lasix 80mg BID Patient may be discharged home today from a cardiac standpoint Entresto remains on hold secondary to kidney function He is to follow up on an outpatient basis with Dr. Wiggins Nurse practitioner note has been reviewed by physician. Signing provider agrees with the documented findings, assessment, and plan of care. Objective - Vital Signs Vital signs: Vital Signs Temp 98.3 F 01/31/23 08:00 Pulse 70 01/31/23 08:00 Resp 20 01/31/23 08:00 BP 95/53 01/31/23 08:00 Pulse Ox 96 01/31/23 08:00 FiO2 Intake & Output 01/30/23 01/31/23 01/31/23 18:59 06:59 18:59 Intake Total 476 0 Output Total 450 825 Balance 26 -825 0 Weight 115.8 kg Intake: Oral 476 0 Output: Urine 450 825 Other: Voiding Method Urinal Urinal Urinal # Voids 1 - Labs CBC & Chem 7: 01/28/23 06:02 01/30/23 08:27
--- NOTE | 2023-01-31 12:01 | P.CONS ---
History of Present Illness - Reason for Consult Consult date: 01/31/23 Goals of care Requesting physician: Kristian Cornejo - Chief Complaint Shortness of breath - History of Present Illness The patient is a 67-year-old male with a past medical history of systolic heart failure EF 30-35%, chronic kidney disease stage III, COPD on 4 L home O2, ischemic cardiomyopathy, recent STEMI in 10/2022 s/p PCI. HE presented emergency department on 01/27/23 with complaints of of difficulty breathing and some chest pain. Patient states his shortness of breath was worsening and he also noticed left-sided chest pain with no radiation. Patient denied any nausea. Patient denied any diaphoretic episodes. Patient denied headache, numbness,or weakness. He denied any abdominal pain, nausea, vomiting, or diarrhea. No recent fever, chills, or cough per patient. He reports some increased swelling to bilateral legs. Workup completed in ED including a chest x-ray reveals increasing pleural effusion; mild elevation of troponin which is in fact lower than agents levels on the last visit, at 0.115, BNP is elevated at 8770, sodium of 139, potassium 3.9, BUN/creatinine of 30/1.68; WBC of 7.6, hemoglobin 8.5 and platelet count of 149. Cardiology was consulted. The patient was diuresed and started on heparin. The patient then developed an PARISH for which nephrology was consulted. Entresto put on hold. Review of Systems Constitutional: Reports as per HPI Past Medical History Past Medical History: Coronary Artery Disease (CAD), Chest Pain / Angina, COPD, GERD/Reflux, Hyperlipidemia, Hypertension, Myocardial Infarction (NV), Osteoarthritis (OA), Sleep Apnea/CPAP/BIPAP Additional Past Medical History / Comment(s): hiatal hernia, chronic back pain, L foot drop, numbness/tingling bilateral legs, HUSAM without device, states stents x7 Last Myocardial Infarction Date:: 11/11/22 History of Any Multi-Drug Resistant Organisms: None Reported Past Surgical History: Back Surgery, Cholecystectomy, Coronary Bypass/CABG, Heart Catheterization With Stent, Orthopedic Surgery Additional Past Surgical History / Comment(s): Back surg x 2 with cage. L tennis elbow surg. HEART STENTS X7. Colonoscopy. Lasik eye surgery bilaterally. Emergency Cabg [facility] Past Anesthesia/Blood Transfusion Reactions: No Reported Reaction Additional Past Anesthesia/Blood Transfusion Reaction / Comm: Pt received blood during CABG without reaction. Date of Last Stent Placement:: Oct 2022 Past Psychological History: Anxiety, Depression, PTSD Smoking Status: Former smoker Past Alcohol Use History: None Reported Past Drug Use History: None Reported - Past Family History Father Family Medical History: Coronary Artery Disease (CAD), Deep Vein Thrombosis (DVT), GERD/Reflux, Hyperlipidemia Additional Family Medical History / Comment(s): Father of a NV in his 80's Mother Family Medical History: Coronary Artery Disease (CAD) Additional Family Medical History / Comment(s): Mother of a NV at the age of 76yrs. Sister(s) Family Medical History: Cancer Additional Family Medical History / Comment(s): Lung cancer. Medications and Allergies Home Medications Medication Instructions Recorded Confirmed Type HYDROcodone/APAP 10-325MG [[place] 1 tab PO QID PRN 02/22/15 01/27/23 History 10-325] rOPINIRole HCL [Requip] 0.25 mg PO HS 09/29/17 01/27/23 History Apixaban [Eliquis] 2.5 mg PO BID #60 tab 11/18/22 01/27/23 Rx Aspirin 81 mg PO DAILY tab 11/18/22 01/27/23 Rx Clopidogrel [Plavix] 75 mg PO HS #30 tab 11/18/22 01/27/23 Rx Ezetimibe [Zetia] 10 mg PO DAILY #90 tab 11/18/22 01/27/23 Rx Nitroglycerin Sl Tabs [Nitrostat] 0.4 mg SUBLINGUAL Q5M PRN #25 tab 11/18/22 01/27/23 Rx Fenofibrate [Lofibra] 160 mg PO DAILY #30 tab 12/01/22 01/27/23 Rx Metoprolol Succinate (ER) [Toprol 50 mg PO DAILY #30 tab 12/01/22 01/27/23 Rx XL] Potassium Chloride ER [K-Dur 20] 20 meq PO BID 12/18/22 01/27/23 History Rosuvastatin [Crestor] 20 mg PO HS 12/18/22 01/27/23 History Cephalexin [Keflex] 500 mg PO QID #30 cap 01/23/23 01/27/23 Rx Furosemide [Lasix] 40 mg PO DAILY #180 tablet 01/23/23 01/27/23 Rx ALPRAZolam [Xanax] 1 mg PO TID PRN 01/27/23 01/27/23 History Fluticasone Nasal Gomer [Flonase 1 spray EA NOSTRIL BID 01/27/23 01/27/23 History Nasal Gomer] Fluticasone Propionate 110 Mcg 2 puff INHALATION RT-BID 01/27/23 01/27/23 History [Flovent 110 Mcg Inhaler] Sacubitril/Valsartan [Entresto 24 1 tab PO BID 01/27/23 01/27/23 History mg-26 mg Tablet] Allergies Allergy/AdvReac Type Severity Reaction Status Date / Time latex Allergy Swelling Verified 01/27/23 15:38 atorvastatin [From Lipitor] AdvReac JOINT PAIN Verified 01/27/23 15:38 Physical Exam Vitals: Vital Signs Temp Pulse Resp BP BP Pulse Ox 01/31/23 08:00 98.3 F 70 20 95/53 96 01/31/23 03:50 97.5 F L 69 18 94/58 95 01/30/23 23:04 97.8 F 80 18 106/73 95 01/30/23 21:03 96 01/30/23 19:46 97.9 F 76 20 93/57 98 01/30/23 16:25 67 16 91/54 94 L 01/30/23 12:40 98.1 F 72 18 96/55 99 Intake and Output 01/30/23 01/31/23 01/31/23 22:59 06:59 14:59 Intake Total 0 Output Total 250 575 Balance -250 -575 0 Intake: Oral 0 Output: Urine 250 575 Other: Voiding Method Urinal Urinal Urinal # Voids 1 Weight 115.8 kg General: Well developed, well nourished. No acute distress. Chronically ill appearing HEENT: Head is atraumatic, normocephalic. CV: Heart regular in rate and rhythm. + 1 lower extremity edema Lungs: Respirations even and nonlabored. On 5L NC. Abdomen/GI: Soft, obese, nondistended, nontender. Musculoskeletal/ Extremities: No joint deformity or swelling. No contractures or gross atrophy. + generalized weakness Skin: Warm and dry Neurologic: Awake, alert and oriented times 3. CN II-XII grossly intact. No focal deficits. Results CBC & Chem 7: 01/28/23 06:02 01/30/23 08:27 Chest x-ray: report reviewed Assessment and Plan Plan: Summary/Goals - The patient is resting in bed with his eye closed. Approached the patient and asked if I could speak with him today. He agreed. Information regarding palliative care philosophies and services provided. The patient kept closing his eyes, but stated he was awake when asked. He was fully dressed and stated he was anxious to go home. Dr. Gee entered the room and assessed the patient. He seemed to get upset stating that Dr. Gee killed his sister by p utting her in hospice. It was again clarified that I am with palliative care and not hospice and explained the difference between the two. He was informed that i am just an extra layer of support for him and can help determine his goals of care and manage his symptoms. The patient clearly made up answers to any of my questions and did not want to continue the conversation. Therefore, I stopped the assessment and asked him if he wanted a palliative care CLERICAL ADJUDICATOR to come visit him at home to help manage his symptoms. He agreed. Recommendations - Home with palliative care when medically stable Advanced Directives - None on file Code Status - Full code Thank you for this consultation Paulette Voss [facility] Palliative Care [facility] [id number] Email: [email or web address]
[2023-01-31] MEDS: FUROSEMIDE 80 MG TAB PO SCH ×2 (12:36→16:47)
[2023-01-31] MEDS: ASPIRIN 81 MG PO SCH (12:37)
[2023-01-31] MEDS: APIXABAN 5 MG TAB PO SCH ×2 (12:37→21:14)
[2023-01-31] MEDS: FENOFIBRATE 160 MG TAB PO SCH (12:37)
[2023-01-31] MEDS: POTASSIUM CHLORIDE ER 20 MEQ TAB.ER PO SCH ×2 (12:37→21:14)
[2023-01-31] MEDS: EZETIMIBE 10 MG TAB PO SCH (12:37)
[2023-01-31] MEDS: METOPROLOL SUCCINATE (ER) 50 MG TAB.ER.24H PO SCH (12:38)
--- NOTE | 2023-01-31 15:12 | P.PN ---
Subjective Patient is seen in follow-up for acute kidney injury on chronic kidney disease. Renal function stable as of yesterday. On oral Lasix. Edema improved. Nonoliguric. Denies chest pain or shortness of breath. Vital signs are stable. General: No acute distress. HEENT: Head exam is unremarkable. LUNGS: No audible rhonchi or wheezes. HEART: Rate and Rhythm are regular. ABDOMEN: Nontender, obese. EXTREMITITES: 1+ edema. Objective - Vital Signs Vital signs: Vital Signs Temp 97.6 F 01/31/23 12:35 Pulse 74 01/31/23 12:35 Resp 20 01/31/23 12:35 BP 91/50 01/31/23 12:35 Pulse Ox 97 01/31/23 12:35 FiO2 Intake & Output 01/30/23 01/31/23 01/31/23 18:59 06:59 18:59 Intake Total 476 118 Output Total 450 825 Balance 26 -825 118 Weight 115.8 kg Intake: Oral 476 118 Output: Urine 450 825 Other: Voiding Method Urinal Urinal Urinal # Voids 1 - Labs CBC & Chem 7: 01/28/23 06:02 01/30/23 08:27 Assessment and Plan Plan: Assessment: 1. Acute kidney injury secondary to ATN secondary to cardiorenal syndrome. Renal function stable. Creatinine 2.29 yesterday. No hydronephrosis noted on recent ultrasound. 2. Chronic kidney disease stage IIIa baseline creatinine near 1.2. Suspect nephrosclerosis. 3. Volume overload. Improved with diuresis. 4. Acute on chronic systolic CHF with ejection fraction of 35%. Plan: Maintain Lasix. Repeat BMP and magnesium level 2-3 days postdischarge. Follow up outpatient in 1 week. Advised patient to follow low salt diet and to maintain fluid restriction of less than 40-45 ounces per day. He was also advised to monitor his weight closely at home and to notify physi stevenson if develops worsening edema or gains more than 3 pounds in 1 week duration.
[2023-01-31 16:52] VITALS: RESP 18
[2023-01-31] MEDS: NON FORMULARY DRUG (Rosuvastatin 20 MG Tablet) PO SCH (20:59)
[2023-01-31] MEDS: CLOPIDOGREL 75 MG TAB PO SCH (21:14)
[2023-02-01] MEDS: HYDROcodone/APAP 10-325MG 1 EACH TAB PO PRN ×3 (02:22→15:17)
[2023-02-01] MEDS: MIDODRINE 5 MG TAB PO SCH ×2 (06:40→12:30)
[2023-02-01 08:16] LABS: Calcium 9.2 mg/dL (8.4-10.2); Potassium 4.6 mmol/L (3.5-5.1)
[2023-02-01] MEDS: METOPROLOL SUCCINATE (ER) 50 MG TAB.ER.24H PO SCH (09:22)
[2023-02-01] MEDS: FENOFIBRATE 160 MG TAB PO SCH (09:22)
[2023-02-01] MEDS: APIXABAN 5 MG TAB PO SCH (09:22)
[2023-02-01] MEDS: EZETIMIBE 10 MG TAB PO SCH (09:22)
[2023-02-01] MEDS: POTASSIUM CHLORIDE ER 20 MEQ TAB.ER PO SCH (09:22)
[2023-02-01] MEDS: FUROSEMIDE 80 MG TAB PO SCH ×2 (09:22→15:16)
[2023-02-01] MEDS: ASPIRIN 81 MG PO SCH (09:22)
--- NOTE | 2023-02-01 10:54 | P.PN ---
Subjective Patient is seen in follow-up for acute kidney injury on chronic kidney disease. Renal function is fairly stable. On oral Lasix. Edema improved. Nonoliguric. Denies chest pain or shortness of breath. Wants to go home. Vital signs are stable. General: No acute distress. HEENT: Head exam is unremarkable. LUNGS: No audible rhonchi or wheezes. HEART: Rate and Rhythm are regular. ABDOMEN: Nontender, obese. EXTREMITITES: 1+ edema. Objective - Vital Signs Vital signs: Vital Signs Temp 98.0 F 02/01/23 08:00 Pulse 77 02/01/23 08:00 Resp 18 02/01/23 08:00 BP 104/65 02/01/23 08:00 Pulse Ox 97 02/01/23 08:00 FiO2 Intake & Output 01/31/23 02/01/23 02/01/23 18:59 06:59 18:59 Intake Total 838 240 Output Total 525 Balance 838 -525 240 Intake: Oral 838 240 Output: Urine 525 Other: Voiding Method Urinal Urinal # Voids 2 - Labs CBC & Chem 7: 01/28/23 06:02 02/01/23 06:46 Labs: Abnormal Lab Results - Last 24 Hours (Table) 02/01/23 Range/Units 06:46 BUN 41 H (9-20) mg/dL Creatinine 2.59 H (0.66-1.25) mg/dL Assessment and Plan Plan: Assessment: 1. Acute kidney injury secondary to ATN secondary to cardiorenal syndrome. Renal function stable. Creatinine 2.59 today. No hydronephrosis noted on recent ultrasound. 2. Chronic kidney disease stage IIIa baseline creatinine near 1.2. Suspect nephrosclerosis. 3. Volume overload. Improved with diuresis. 4. Acute on chronic systolic CHF with ejection fraction of 35%. Plan: Maintain Lasix. Repeat BMP and magnesium level 2-3 days postdischarge. Follow up outpatient in 1 week. Advised patient to follow low salt diet and to maintain fluid restriction of less than 40-45 ounces per day. He was also advised to monitor his weight closely at home and to notify physician if develops worsening edema or gains more than 3 pounds in 1 week duration.
--- NOTE | 2023-02-01 12:09 | P.PN ---
Subjective Progress Note Date: 02/01/23 HISTORY OF PRESENT ILLNESS: This is a 67-year-old male with a past medical history significant for coronary artery disease with previous CABG and stenting, hypertension, and hyperli pidemia, chronic hypoxic respiratory failure on home O2 at 4 L nasal cannula. Patient follows in the office with Dr. Wiggins. We have been asked to see the patient in consultation for chest pain, pleural effusion. Patient was admitted to the hospital in October 2022 secondary to STEMI and underwent SVG to LAD and aspiration thrombectomy. His procedure was complicated with ventricle fibrillation upon crossing the aortic valve. In addition, patient has had at least 3 hospitalizations since October treated for coronary artery disease, ischemic cardiomyopathy, presyncope with low blood pressures. Patient was just discharged from the hospital on January 23. He gives history that his home care nurse was at his home and his lips were purple. He states he's had shortness of breath ever since his ST elevated OK. He has noticed increased lower extremity edema. He states he is taking all of his medications asked her acted. His shortness of breath seemed to get worse while he was sitting in a chair yesterday but he had no chest pain. Because the nurse noted his lips were purple, she contacted EMS and patient was brought into the hospital. * EKG reveals sinus mechanism with ST abnormalities consistent with old OK * Laboratory data: WBC 6.6, hemoglobin 8.9, platelet count 125. INR 1.1. T roponin 0.115, 0.113, 0.141. ProBNP 7880. BUN 34 creatinine 1.72. * Current home cardiac medications include Eliquis 5mg BID, aspirin 81 mg daily, Plavix 75 mg at night, Zetia 10 mg daily, Lasix 40 mg daily, Imdur 30 mg daily, metoprolol succinate 50 mg daily, potassium chloride 20 mEq twice daily and Crestor 20 mg at night, Nitrostat as needed * limited echocardiogram obtained in December 2022 revealed ejection fraction 30- 35% with moderate mitral regurgitation and moderate aortic insufficiency * Cardiac catheterization: 11/11/2022 revealed acute total occlusion of the SVG to LAD with large thrombus burden, status post PCI of the SVG to LAD with aspiration thrombectomy. Procedure was complicated with ventricular fibrillation upon crossing the aortic valve. 01/29/2023 The patient's 67-year-old male who is admitted to the hospital with worsening shortness of breath. He has a known ejection fraction of 30-35% and congestive heart failure. On arrival he had increased oxygen requirements as well as vascular congestion and pleural effusion noted on chest x-ray. He's been diuresed with IV furosemide over the last 24 hours, which we'll transition to oral tomorrow. Kidney function has been climbing. Consideration for third spacing with his right-sided pleural effusion as well as significant lower extremity edema. 01/30/2023 Patient examined this morning at the bedside. Patient denies chest pain or pressure. He currently denies shortness of breath. The patient continues to have lower extremity edema although he states it is improved. He has been transitioned to oral Lasix 80 mg twice a day. He is hoping to be discharged home today. 01/31/2023 Patient examined this morning at the bedside. No complain of chest pain or pressure. No complaints of shortness of breath. Vital signs are stable. 02/01/2023 Patient examined this morning at the bedside. No complain of chest pain or pressure. No complaints of shortness of breath. Vital signs are stable. PHYSICAL EXAM: VITAL SIGNS: Reviewed. GENERAL: Well-developed in no acute distress. NECK: Supple. No JVD or thyromegaly LUNGS: Respirations even and unlabored. Lungs essentially clear to auscultation bilaterally. HEART: Regular rate and rhythm. S1 and S2 heard. EXTREMITIES: Normal range of motion. No clubbing or cyanosis. Peripheral pulses intact. 1-2+ bilateral lower extremity edema ASSESSMENT: Acute on chronic systolic heart failure with EF of 30-35% Ischemic cardiomyopathy Chronic kidney disease History of anterior STEMI status post PCI of the SVG to LAD and aspiration thrombectomy, complicated by ventricular fibrillation, October 2022 Coronary artery disease with previous CABG and PCI Hypertension Hyperlipidemia PLAN: Continue current cardiac medications Continue oral lasix 80mg BID Patient may be discharged home today from a cardiac standpoint Entresto remains on hold secondary to kidney function He is to follow up on an outpatient basis with Dr. Wiggins Nurse practitioner note has been reviewed by physician. Signing provider agrees with the documented findings, assessment, and plan of care. Objective - Vital Signs Vital signs: Vital Signs Temp 98.0 F 02/01/23 08:00 Pulse 77 02/01/23 08:00 Resp 18 02/01/23 08:00 BP 104/65 02/01/23 08:00 Pulse Ox 97 02/01/23 08:00 FiO2 Intake & Output 01/31/23 02/01/23 02/01/23 18:59 06:59 18:59 Intake Total 838 240 Output Total 525 Balance 838 -525 240 Intake: Oral 838 240 Output: Urine 525 Other: Voiding Method Urinal Urinal # Voids 2 - Labs CBC & Chem 7: 01/28/23 06:02 02/01/23 06:46 Labs: Abnormal Lab Results - Last 24 Hours (Table) 02/01/23 Range/Units 06:46 BUN 41 H (9-20) mg/dL Creatinine 2.59 H (0.66-1.25) mg/dL
--- NOTE | 2023-02-01 13:50 | P.CN ---
Psychiatric Consult - . Consult date: 02/01/23 Consult:: 02/01/23 13:48 IDENTIFYING DATA: This patient is a single, on disability 67 year old male with a significant history of CAD, [place], Sleep apnea on CPAP/BIPAP who presented to our hospital on 01/27/2023 with a chief complaint of chest pain and SOB. HISTORY OF PRESENT ILLNESS: The patient presented to the hospital on 01/27/2023 with a chief complaint of chest pain and SOB. Patient was seen and evaluated by medical, cardiology, and nephrology. Psychiatry was consulted for depression. No reported depression in chart review. As per discussion with patient nurse, the patient did not endorse any significant symptoms of depression however this provider was informed that the patient had to be seen by psychiatry in order for discharge to go forward. Upon evaluation by this psychiatrist, the patient is not endorsing any significant signs or symptoms of depression. He does report that he is upset with Dr. Gee in regards to the previous care of his family, however he vehemently denies any suicidal or homicidal ideation, intention, and/or plan. He reports no access to firearms or other weapons. He reports no auditory or visual hallucinations. He denies any paranoia or other delusions. The patient denies any access to firearms or weapons. He reports strong desire to live for himself and for his family. He does report a history of suicide attempts in the past however states he last attempted suicide more than 20 years ago. He reports no issues regarding his sleep or his appetite. He denies any feelings of hopelessness, helplessness, or anhedonia. PAST PSYCHIATRIC HISTORY: Patient reports a history of depression. Patient is prescribed Xanax. He reports 1 previous psychiatric hospitals patient more than 20 years ago. Patient denies any psychiatric outpatient follow-up. Reports one prior suicide attempt more than 20 years ago. PAST MEDICAL HISTORY: Past Medical History: Coronary Artery Disease (CAD), Chest Pain / Angina, COPD, GERD/Reflux, Hyperlipidemia, Hypertension, Myocardial Infarction ([place]), Osteoarthritis (OA), Sleep Apnea/CPAP/BIPAP Additional Past Medical History / Comment(s): hiatal hernia, chronic back pain, L foot drop, numbness/tingling bilateral legs, HUSAM without device, states stents x7 Last Myocardial Infarction Date:: 1/13/23 History of Any Multi-Drug Resistant Organisms: None Reported Past Surgical History: Back Surgery, Cholecystectomy, Coronary Bypass/CABG, Heart Catheterization With Stent, Orthopedic Surgery Additional Past Surgical History / Comment(s): Back surg x 2 with cage. L tennis elbow surg. HEART STENTS X7. Colonoscopy. Lasik eye surgery bilaterally. Emergency Cabg [facility] Past Anesthesia/Blood Transfusion Reactions: No Reported Reaction Additional Past Anesthesia/Blood Transfusion Reaction / Comment(s): Pt received blood during CABG without reaction. Date of Last Stent Placement:: Oct 2022 Past Psychological History: Anxiety, Depression, PTSD Smoking Status: Former smoker Past Alcohol Use History: None Reported Past Drug Use History: None Reported ALLERGIES: Latex, atorvastatin CHEMICAL DEPENDENCY HISTORY: Patient denies any tobacco, alcohol, marijuana, or illicit drug use FAMILY PSYCHIATRIC/SUBSTANCE USE HISTORY: No reported family psychiatric history SOCIAL HISTORY: Patient reports that he is single, has a daughter. MENTAL STATUS EXAM: General Appearance: Patient appears to be stated age is alert, pleasant, and cooperative. Patient appears to have fair hygiene and grooming wearing hospital gown with fair eye contact. Behavior: Patient is calmly lying in bed without any agitated behavior. Speech: Patient's speech is fluent and nonpressured. Mood/Affect: Patient reports their mood is "ready to get out of here", affect is congruent and mildly irritable Suicidality/Homicidality: Patient denies having any suicidal or homicidal ideation intent or plan. Perceptions: Patient denies any visual hallucinations and denies any auditory hallucinations Though content/process: There is no evidence of any delusional thought content and thought process is linear and goal-directed. Memory and concentration: AOX3, grossly intact for the purposes of this session. Can spell "WORLD" backwards Judgment and insight: Fair IMPRESSIONS: Acute on chronic systolic heart failure with EF of 30-35% Ischemic cardiomyopathy Chronic kidney disease History of anterior STEMI status post PCI of the SVG to LAD and aspiration thrombectomy, complicated by ventricular fibrillation, October 2022 Coronary artery disease with previous CABG and PCI Hypertension Hyperlipidemia As per history - depression, anxiety, PTSD PLAN: -At this time patient DOES NOT meet criteria for inpatient psychiatric admission. The patient is not presenting with any imminent risk of harm to self or others. He is not overtly psychotic or manic. -Would recommend the following medication changes/additions: No medication recommendations made at this time -Recommend outpatient follow-up for mental health and for primary care. -Psychiatry will sign off at this point, please contact with any questions. 02/01/23 13:48
[2023-02-01 17:13] VITALS: BP 112/60; PULSE 72; TEMP 98.6
--- NOTE | 2023-02-01 20:52 | PN ---
PROGRESS NOTE DATE OF SERVICE: 01/31/2023 CHIEF COMPLAINT: Acute and chronic congestive heart failure. HISTORY OF PRESENT ILLNESS: This gentleman is still having difficulty. He is still short of breath. He is on 5 L of nasal O2. He denies chest pain at this time. PHYSICAL EXAMINATION: CHEST: Breath sounds are diminished and he has scattered rales. CARDIAC: Unremarkable. ABDOMEN: Soft. IMPRESSION: 1. Acute on chronic congestive heart failure. 2. Chronic congestive heart failure with reduced ejection fraction. 3. Atherosclerotic cardiomyopathy. 4. Chronic obstructive pulmonary disease. 5. Hyperlipidemia. PLAN: The patient's situation is deteriorating. Palliative care has been suggested and with which I concurs, but he refuses. Start to look for a reliable discharge plan. MMDEYANIRA / IJN: [id number] /
[2023-02-01] MEDS ORDERED: SACUBITRIL/VALSARTAN 24 MG-26 MG TABLET PO SCH (21:00)
--- NOTE | 2023-02-04 11:56 | DS ---
DISCHARGE SUMMARY CHIEF COMPLAINT: Shortness of breath. HISTORY OF PRESENT ILLNESS AND PHYSICAL EXAMINATION: Details of this man's history and physical can be found in the initial workup. LABORATORY STUDIES: While he was in the hospital, he had laboratory studies, details of which can be found in the laboratory section of his chart. COURSE IN THE HOSPITAL: After admission, he was placed on bedrest, started on intravenous fluids. He was seen by Cardiology. Medications were adjusted. While in the hospital, he remained very short of breath and on as much as 5 L of nasal O2 chronically to keep his pulse ox above 90%. He had no chest pain. There was concern about him going home and palliative care was discussed, but he refused. I then talked to him about hospice and he refused that. He understood his situation and that his prognosis was extremely poor, and he wanted go home anyway. He will be discharged and followed up as an outpatient. He does have home care at home. FINAL DIAGNOSES: 1. Acute on chronic congestive heart failure. 2. Recent myocardial infarction. 3. Coronary artery disease. 4. Previous coronary artery bypass graft. 5. Cardiorenal syndrome. 6. Atherosclerotic cardiomyopathy. 7. Hyperlipidemia. 8. Chronic obstructive pulmonary disease. OPERATIONS: None. CONSULTATIONS: Cardiology. CONDITION ON DISCHARGE: He is improved, but very little. MMODL / IJN: [id number] /
== END 2023-02-01 17:00 | disposition home health service (06) | DRG 291 ==
LOC: EC 13:00 → OBSVTOIN 16:38 → 3SCARD 16:38
PROVIDERS: ADMIT Family Medicine; ATTEND Family Medicine
DX: I13.0 Hypertensive heart and chronic kidney disease with heart failure and stage 1 through stage 4 chronic kidney disease, or unspecified chronic kidney disease (principal); I50.23 Acute on chronic systolic (congestive) heart failure; N17.0 Acute kidney failure with tubular necrosis; J96.11 Chronic respiratory failure with hypoxia; I95.9 Hypotension, unspecified; E78.5 Hyperlipidemia, unspecified; I25.10 Atherosclerotic heart disease of native coronary artery without angina pectoris; I25.5 Ischemic cardiomyopathy; I25.2 Old myocardial infarction; J44.9 Chronic obstructive pulmonary disease, unspecified; N18.31 Chronic kidney disease, stage 3a; F32.A Depression, unspecified; F43.10 Post-traumatic stress disorder, unspecified; I08.0 Rheumatic disorders of both mitral and aortic valves; D64.9 Anemia, unspecified; G47.33 Obstructive sleep apnea (adult) (pediatric); K21.9 Gastro-esophageal reflux disease without esophagitis; K44.9 Diaphragmatic hernia without obstruction or gangrene; M19.90 Unspecified osteoarthritis, unspecified site; G89.29 Other chronic pain; M54.9 Dorsalgia, unspecified; M21.372 Foot drop, left foot; Z99.81 Dependence on supplemental oxygen; Z51.5 Encounter for palliative care; Z79.01 Long term (current) use of anticoagulants; Z79.82 Long term (current) use of aspirin; Z79.02 Long term (current) use of antithrombotics/antiplatelets; Z79.899 Other long term (current) drug therapy; Z86.74 Personal history of sudden cardiac arrest; Z95.1 Presence of aortocoronary bypass graft; Z95.5 Presence of coronary angioplasty implant and graft; Z87.891 Personal history of nicotine dependence; Z91.51 Personal history of suicidal behavior; Z88.8 Allergy status to other drugs, medicaments and biological substances; Z91.040 Latex allergy status; Z82.49 Family history of ischemic heart disease and other diseases of the circulatory system
CPT/HCPCS: 36415; 71046; 80048; 80053; 80061; 81001; 83735; 83880; 84145; 84484; 85025; 85610; 85730; 93005; 94760; 96365; 96366; 96375; 99285

== ENCOUNTER 2023-03-15 19:00 | Inpatient (IN) | payer MEDICARE, OTHER ==
[2023-03-15 19:47] LABS: Anisocytosis Slight; Basophils % (A) 0 %; Eosinophils # (A) 0.1 k/uL (0-0.7); Eosinophils % (A) 1 %; HCT 25.5 % (39.0-53.0); HGB 8.2 gm/dL (13.0-17.5); Hypochromasia Slight; Lymphocytes # (A) 1.4 k/uL (1.0-4.8); Lymphocytes % (A) 24 %; MCH 27.9 pg (25.0-35.0); MCHC 32.2 g/dL (31.0-37.0); MCV 86.6 fL (80.0-100.0); Mean Platelet Volume 11.4; Monocytes # (A) 0.5 k/uL (0-1.0); Monocytes % (A) 9 %; Neutrophils # (A) 3.6 k/uL (1.3-7.7); Neutrophils % (A) 63 %; Platelet Count 174 k/uL (150-450); RBC 2.94 m/uL (4.30-5.90); WBC 5.7 k/uL (3.8-10.6)
[2023-03-15 19:53] LABS: INR 1.2 (<1.2); Partial Thromboplastin Time 26.4 sec (22.0-30.0); Prothrombin Time 11.9 sec (9.0-12.0)
[2023-03-15] MEDS ORDERED: SODIUM CHLORIDE 0.9% 500 ML 500 ML IV STA (20:01)
--- NOTE | 2023-03-15 20:01 | XR ---
EXAMINATION TYPE: XR chest 2V DATE OF EXAM: 03/15/2023 COMPARISON: Chest x-ray January 29, 2023 HISTORY: Chest pain. TECHNIQUE: Frontal and lateral views of the chest are obtained. FINDINGS: There is cardiomegaly with small right pleural effusion redemonstrated. Mild to moderate central vascular congestion redemonstrated. Overlying sternal wires again seen along with mediastinal clips and suspected coronary stent or significant calcification The osseous structures are intact. IMPRESSION: Chronic changes and cardiomegaly with small right pleural effusion and mild to moderate central vascular congestion redemonstrated. Correlate for CHF exacerbation. No significant change fro m prior.
[2023-03-15 20:06] LABS: Albumin 3.7 g/dL (3.5-5.0); Calcium 8.8 mg/dL (8.4-10.2); Magnesium 2.5 mg/dL (1.6-2.3); Potassium 5.7 mmol/L (3.5-5.1); Total Bilirubin 0.6 mg/dL (0.2-1.3); Total Protein 6.9 g/dL (6.3-8.2)
[2023-03-15] MEDS ORDERED: MORPHINE SULFATE 4 MG/ML SYRINGE IV STA (22:29)
[2023-03-15] MEDS: NOREPINEPHRINE 32 MG in SODIUM CHLORIDE 0.9% 218 ML IV SCH (22:46)
[2023-03-15] MEDS ORDERED: Magnesium Replacement Protocol 1 EACH MISC MISCELLANE PRN (22:55)
[2023-03-15] MEDS ORDERED: NALOXONE 0.4 MG/ML 1 ML VIAL IV PRN (22:55)
[2023-03-15] MEDS ORDERED: Phosphorus Replacement Protoco 1 EACH MISC MISCELLANE PRN (22:55)
[2023-03-15] MEDS ORDERED: LORazepam 2 MG/ML INJ IV PRN (22:55)
[2023-03-15] MEDS ORDERED: Potassium Replacement Protocol 1 EACH MISC MISCELLANE PRN (22:55)
[2023-03-15 23:55] LABS: Glucose,Whole Blood 80 mg/dL (70-110)
[2023-03-16] MEDS: SODIUM CHLORIDE 0.9% 1,000 ML IV SCH ×3 (00:40→14:31)
--- NOTE | 2023-03-16 02:27 | ED ---
Dizziness HPI - General Chief Complaint: Dizziness Stated Complaint: cardiac issues Time Seen by Provider: 03/15/23 19:05 Source: EMS Mode of arrival: ambulatory - History of Present Illness Initial Comments: This patient is a 67-year-old man who presents with complaint that he is feeling lightheaded and very weak when he stands. He is finding it difficult to walk and has had recent fall. Patient had gone to [facility] after a fall yesterday. The patient reportedly left before having all the imaging done that they had suggested. The patient here is denying pain other than some chronic back pain. No headache or neck pain. No chest pain or dyspnea. Patient was noted to be hypotensive when EMS picked him up. MD Complaint: dizziness, lightheadedness -: days(s) Timing: gradual onset Description: lightheadedness, off-balance, difficulty walking History of Same: Yes History of Trauma: No Severity: moderate Improves With: rest Worsens With: movement Associated Symptoms: shortness of breath - Related Data Home Medications Medication Instructions Recorded Confirmed HYDROcodone/APAP 10-325MG [[place] 1 tab PO QID PRN 02/22/15 03/15/23 10-325] rOPINIRole HCL [Requip] 0.25 mg PO HS 09/29/17 03/15/23 Potassium Chloride ER [K-Dur 20] 20 meq PO BID 12/18/22 03/15/23 Rosuvastatin [Crestor] 20 mg PO HS 12/18/22 03/15/23 Fluticasone Nasal [place] [Flonase 1 spray EA NOSTRIL BID 01/27/23 03/15/23 Nasal [place]] Fluticasone Propionate 110 Mcg 2 puff INHALATION RT-BID 01/27/23 03/15/23 [Flovent 110 Mcg Inhaler] ALPRAZolam [Xanax] 2 mg PO DAILY PRN 03/15/23 03/15/23 Previous Rx's Medication Instructions Recorded Apixaban [Eliquis] 2.5 mg PO BID #60 tab 11/18/22 Aspirin 81 mg PO DAILY tab 11/18/22 Clopidogrel [Plavix] 75 mg PO HS #30 tab 11/18/22 Ezetimibe [Zetia] 10 mg PO DAILY #90 tab 11/18/22 Nitroglycerin Sl Tabs [Nitrostat] 0.4 mg SUBLINGUAL Q5M PRN #25 tab 11/18/22 Fenofibrate [Lofibra] 160 mg PO DAILY #30 tab 12/01/22 Metoprolol Succinate (ER) [Toprol 50 mg PO DAILY #30 tab 02/01/23 XL] Midodrine [ProAmatine] 5 mg PO AC-TID #30 tab 02/01/23 Furosemide [Lasix] 20 mg PO DAILY #20 tab 03/20/23 Allergies Allergy/AdvReac Type Severity Reaction Status Date / Time latex Allergy Swelling Verified 03/15/23 19:13 atorvastatin [From Lipitor] AdvReac JOINT PAIN Verified 03/15/23 19:13 Review of Systems ROS Statement: Those systems with pertinent positive or pertinent negative responses have been documented in the HPI. ROS Other: All systems not noted in ROS Statement are negative. Constitutional: Denies: fever, chills Respiratory: Denies: cough, dyspnea, wheezes Cardiovascular: Reports: dyspnea on exertion, syncope (Near-syncope). Denies: chest pain, palpitations, orthopnea, edema Gastrointestinal: Denies: abdominal pain, vomiting, diarrhea, melena, hematochezia Genitourinary: Denies: dysuria, hematuria Musculoskeletal: Denies: back pain Skin: Denies: rash Neurological: Denies: headache, weakness, numbness Past Medical History Past Medical History: Coronary Artery Disease (CAD), Chest Pain / Angina, COPD, GERD/Reflux, Hyperlipidemia, Hypertension, Myocardial Infarction (PA), Osteoarthritis (OA), Sleep Apnea/CPAP/BIPAP Additional Past Medical History / Comment(s): hiatal hernia, chronic back pain, L foot drop, numbness/tingling bilateral legs, HUSAM without device, states stents x7 Last Myocardial Infarction Date:: 11/11/22 History of Any Multi-Drug Resistant Organisms: None Reported Past Surgical History: Back Surgery, Cholecystectomy, Coronary Bypass/CABG, Heart Catheterization With Stent, Orthopedic Surgery Additional Past Surgical History / Comment(s): Back surg x 2 with cage. L tennis elbow surg. HEART STENTS X7. Colonoscopy. Lasik eye surgery bilaterally. Emergency Cabg [facility] Past Anesthesia/Blood Transfusion Reactions: No Reported Reaction Additional Past Anesthesia/Blood Transfusion Reaction / Comment(s): Pt received blood during CABG without reaction. Date of Last Stent Placement:: Oct 2022 Past Psychological History: Anxiety, Depression, PTSD Additional Psychological History / Comment(s): He ambulates with a cane. He drives. Smoking Status: Former smoker Past Alcohol Use History: None Reported Additional Past Alcohol Use History / Comment(s): Pt states he started smoking in 1967 and used to smoke 3ppd down to maybe 6-8 cigarettes a day. quit smoking 01/28/2022 Past Drug Use History: None Reported Additional Drug Use History / Comment(s): states does not use cocaine anymore. - Past Family History Father Family Medical History: Coronary Artery Disease (CAD), Deep Vein Thrombosis (DVT), GERD/Reflux, Hyperlipidemia Additional Family Medical History / Comment(s): Father of a PA in his 80's Mother Family Medical History: Coronary Artery Disease (CAD) Additional Family Medical History / Comment(s): Mother of a PA at the age of 76yrs. Sister(s) Family Medical History: Cancer Additional Family Medical History / Comment(s): Lung cancer. General Exam General appearance: alert, in no apparent distress Head exam: Present: atraumatic, normocephalic Eye exam: Present: normal appearance. Absent: scleral icterus, conjunctival injection Neck exam: Present: normal inspection Respiratory exam: Present: normal lung sounds bilaterally. Absent: respiratory distress, wheezes, rales, rhonchi, stridor, accessory muscle use Cardiovascular Exam: Present: regular rate, normal rhythm, normal heart sounds. Absent: systolic murmur, diastolic murmur, rubs, gallop GI/Abdominal exam: Present: soft. Absent: distended, tenderness, guarding, rebound, rigid, mass Extremities exam: Present: normal inspection, normal capillary refill. Absent: pedal edema, calf tenderness Back exam: Present: normal inspection. Absent: CVA tenderness (R), CVA tenderness (L) Neurological exam: Present: alert Skin exam: Present: warm, dry, intact, normal color. Absent: rash Course Vital Signs 03/15/23 03/15/23 03/15/23 19:09 19:16 19:34 Temperature 97.4 F L Pulse Rate 64 62 61 Respiratory 16 18 18 Rate Blood Pressure 90/49 72/60 70/48 O2 Sat by Pulse 97 99 100 Oximetry 03/15/23 03/15/23 03/15/23 19:53 20:08 20:27 Temperature Pulse Rate 60 59 L 59 L Respiratory 18 18 18 Rate Blood Pressure 86/52 76/59 78/54 O2 Sat by Pulse 100 Oximetry 03/15/23 03/15/23 03/15/23 20:45 22:03 22:26 Temperature Pulse Rate 58 L 67 67 Respiratory 18 18 18 Rate Blood Pressure 72/37 83/44 86/61 O2 Sat by Pulse 90 L 94 L Oximetry 03/15/23 03/15/23 03/15/23 22:41 22:47 23:00 Temperature 98.8 F Pulse Rate 67 65 Respiratory 18 18 Rate Blood Pressure 78/53 87/73 80/51 O2 Sat by Pulse 94 L 93 L Oximetry EKG Findings - EKG Comments: EKG Findings:: Possible old inferior infarct. - EKG Results: EKG: interpreted by ERMD, sinus rhythm (Rate 61 bpm) - Blocks, [place], Hypertrophy, ST Abn: Repolarization changes or abnormalities: ST or T wave suggestive of ischemia Procedures - [place] Protocol (Time Out) Procedure Performed:: insertion of triple lumen central line Performing Provider: Israel Leblanc Nurse: Radha Beal Patient Identification (2 identifiers required): Chart, Verbal, Arm Band, Name, Birthdate, Medical Record Number Patient/Legal Fashion Consultant Selling has Confirmed: Identity, Site, Procedure, Consent Medical Decision Making - Medical Decision Making This patient is 67-year-old man presenting with complaints suggestive of hypovolemia and found to be hypotensive. The patient does have history of previous PA and previous congestive heart failure. The patient has ejection fraction 30-35%. From the physical exam he does appear to be mildly hypovolemic. The workup includes chest x-ray which I interpreted as showing cardiomegaly but no pulmonary edema. No infiltrate or pneumothorax. The lab studies do show a BNP which is the highest that we had on record, however the patient's creatinine is also higher than his baseline. Suspect that the patient does need a small amount of fluid and he is given 500 mL bolus and then continued on IV fluid. The pressure only marginally improved. Patient also has elevated troponin but this appears to be chronic finding for him. Patient is given antibiotics as empiric treatment for possible sepsis though no infection identified at this point. Case is discussed with cardiology, Dr. Smart is on-call. As the patient has now had approximately 1 L of IV fluids total and blood pressure not improving and given his previous congestive heart failure will add levo fed at this point the case is also discussed with Dr. Merritt. Was pt. sent in by a medical professional or institution (ROBERT Zelaya, CHAIN SAW OPERATOR, urgent care, hospital, or group home...) When possible be specific @ -[No] Did you speak to anyone other than the patient for history (EMS, parent, family, police, friend...)? What history was obtained from this source @ -[No] Did you review nursing and triage notes (agree or disagree)? Why? @ -[I reviewed and agree with nursing and triage notes] Were old charts reviewed (outside hosp., previous admission, EMS record, old EKG, old radiological studies, urgent care reports/EKG's, group home records)? Report findings @ -[old charts were reviewed Differential Diagnosis (chest pain, altered mental status, abdominal pain women, abdominal pain men, vaginal bleeding, weakness, fever, dyspnea, syncope, headache, dizziness, GI bleed, back pain, seizure, CVA, palpatations, mental he alth, musculoskeletal)? @ -[not applicable] EKG interpreted by me (3pts min.). @ -[As above, interpreted by me X-rays interpreted by me (1pt min.). @ -[Chest x-ray interpreted by me as above CT interpreted by me (1pt min.). @ -[None done] U/S interpreted by me (1pt. min.). @ -[None done] What testing was considered but not performed or refused? (CT, X-rays, U/S, labs)? Why? @ -[None] What meds were considered but not given or refused? Why? @ -[None] Did you discuss the management of the patient with other professionals (carolin serrano i.e. ROBERT Zelaya, CHAIN SAW OPERATOR, lab, RT, psych nurse, social service assistant, access services assistant, teacher, chief accounting officer, rehabilitation case coordinator)? Give summary @ -[The case is discussed with the admitting physician, with the child care cook and with core inserter. Their treatment recommendations are incorporated Was smoking cessation discussed for >3mins.? @ -[No] Was critical care preformed (if so, how long)? @ -[yes, 30 minutes Were there social determinants of health that impacted care today? How? (Homelessness, low income, unemployed, alcoholism, drug addiction, transportation, low edu. Level, literacy, decrease access to med. care, [place] [facility], rehab)? @ -[No] Was there de-escalation of care discussed even if they declined (Discuss DNR or withdrawal of care, Hospice)? DNR status @ -[No] What co-morbidities impacted this encounter? (DM, HTN, Smoking, COPD, CAD, Cancer, CVA, ARF, Chemo, Hep., AIDS, mental health diagnosis, sleep apnea, mor bid obesity)? @ -[CAD/cardiomyopathy Was patient admitted / discharged? Hospital course, mention meds given and route, prescriptions, significant lab abnormalities, going to OR and other pertinent info. @ -[Patient is admitted Undiagnosed new problem with uncertain prognosis? @ -[No] Drug Therapy requiring intensive monitoring for toxicity (Heparin, Nitro, Insulin, Cardizem)? @ -[No] Were any procedures done? @ -[No] Diagnosis/symptom? @ -[Acute hypotension Acute kidney injury Acute hyperkalemia Anemia Acute, or Chronic, or Acute on Chronic? @ -[default] Uncomplicated (without systemic symptoms) or Complicated (systemic symptoms)? @ -[Complicated Side effects of treatment? @ -[No] Exacerbation, Progression, or Severe Exacerbation? @ -[No] Poses a threat to life or bodily function? How? (Chest pain, [place], PA, pneumonia, PE, COPD, DKA, ARF, appy, cholecystitis, CVA, Diverticulitis, Homicidal, Suicidal, threat to staff... and all critical care pts) @ -[Yes, hypotension may lead to hypoperfusion of multiple organ cyber systems engineer to organ system failure and . - Lab Data Result diagrams: 03/18/23 05:57 03/20/23 05:12 Lab Results 03/15/23 03/15/23 03/15/23 Range/Units 19:28 19:28 19:28 WBC 5.7 (3.8-10.6) k/uL RBC 2.94 L (4.30-5.90) m/uL Hgb 8.2 L (13.0-17.5) gm/dL Hct 25.5 L (39.0-53.0) % MCV 86.6 (80.0-100.0) fL MCH 27.9 (25.0-35.0) pg MCHC 32.2 (31.0-37.0) g/dL RDW 18.0 H (11.5-15.5) % Plt Count 174 (150-450) k/uL MPV 11.4 Neutrophils % 63 % Lymphocytes % 24 % Monocytes % 9 % Eosinophils % 1 % Basophils % 0 % Neutrophils # 3.6 (1.3-7.7) k/uL Lymphocytes # 1.4 (1.0-4.8) k/uL Monocytes # 0.5 (0-1.0) k/uL Eosinophils # 0.1 (0-0.7) k/uL Basophils # 0.0 (0-0.2) k/uL Hypochromasia Slight Anisocytosis Slight PT 11.9 (9.0-12.0) sec INR 1.2 H (<1.2) APTT 26.4 (22.0-30.0) sec Sodium 132 L (137-145) mmol/L Potassium 5.7 H (3.5-5.1) mmol/L Chloride 98 (98-107) mmol/L Carbon Dioxide 21 L (22-30) mmol/L Anion Gap 13 mmol/L BUN 58 H (9-20) mg/dL Creatinine 4.07 H (0.66-1.25) mg/dL Est GFR (CKD-EPI)AfAm 17 (>60 ml/min/1.73 sqM) Est GFR (CKD-EPI)NonAf 14 (>60 ml/min/1.73 sqM) Glucose 105 H (74-99) mg/dL Plasma Lactic Acid Tomy (0.7-2.0) mmol/L Calcium 8.8 (8.4-10.2) mg/dL Magnesium 2.5 H (1.6-2.3) mg/dL Total Bilirubin 0.6 (0.2-1.3) mg/dL AST 29 (17-59) U/L ALT 15 (4-49) U/L Alkaline Phosphatase 48 (38-126) U/L Troponin I (0.000-0.034) ng/mL NT-Pro-B Natriuret Pep pg/mL Total Protein 6.9 (6.3-8.2) g/dL Albumin 3.7 (3.5-5.0) g/dL 03/15/23 03/15/23 03/15/23 Range/Units 19:28 19:28 22:22 WBC (3.8-10.6) k/uL RBC (4.30-5.90) m/uL Hgb (13.0-17.5) gm/dL Hct (39.0-53.0) % MCV (80.0-100.0) fL MCH (25.0-35.0) pg MCHC (31.0-37.0) g/dL RDW (11.5-15.5) % Plt Count (150-450) k/uL MPV Neutrophils % % Lymphocytes % % Monocytes % % Eosinophils % % Basophils % % Neutrophils # (1.3-7.7) k/uL Lymphocytes # (1.0-4.8) k/uL Monocytes # (0-1.0) k/uL Eosinophils # (0-0.7) k/uL Basophils # (0-0.2) k/uL Hypochromasia Anisocytosis PT (9.0-12.0) sec INR (<1.2) APTT (22.0-30.0) sec Sodium (137-145) mmol/L Potassium (3.5-5.1) mmol/L Chloride (98-107) mmol/L Carbon Dioxide (22-30) mmol/L Anion Gap mmol/L BUN (9-20) mg/dL Creatinine (0.66-1.25) mg/dL Est GFR (CKD-EPI)AfAm (>60 ml/min/1.73 sqM) Est GFR (CKD-EPI)NonAf (>60 ml/min/1.73 sqM) Glucose (74-99) mg/dL Plasma Lactic Acid Tomy 1.0 (0.7-2.0) mmol/L Calcium (8.4-10.2) mg/dL Magnesium (1.6-2.3) mg/dL Total Bilirubin (0.2-1.3) mg/dL AST (17-59) U/L ALT (4-49) U/L Alkaline Phosphatase (38-126) U/L Troponin I 0.102 H* (0.000-0.034) ng/mL NT-Pro-B Natriuret Pep 69603 pg/mL Total Protein (6.3-8.2) g/dL Albumin (3.5-5.0) g/dL 03/15/23 Range/Units 22:22 WBC (3.8-10.6) k/uL RBC (4.30-5.90) m/uL Hgb (13.0-17.5) gm/dL Hct (39.0-53.0) % MCV (80.0-100.0) fL MCH (25.0-35.0) pg MCHC (31.0-37.0) g/dL RDW (11.5-15.5) % Plt Count (150-450) k/uL MPV Neutrophils % % Lymphocytes % % Monocytes % % Eosinophils % % Basophils % % Neutrophils # (1.3-7.7) k/uL Lymphocytes # (1.0-4.8) k/uL Monocytes # (0-1.0) k/uL Eosinophils # (0-0.7) k/uL Basophils # (0-0.2) k/uL Hypochromasia Anisocytosis PT (9.0-12.0) sec INR (<1.2) APTT (22.0-30.0) sec Sodium (137-145) mmol/L Potassium (3.5-5.1) mmol/L Chloride (98-107) mmol/L Carbon Dioxide (22-30) mmol/L Anion Gap mmol/L BUN (9-20) mg/dL Creatinine (0.66-1.25) mg/dL Est GFR (CKD-EPI)AfAm (>60 ml/min/1.73 sqM) Est GFR (CKD-EPI)NonAf (>60 ml/min/1.73 sqM) Glucose (74-99) mg/dL Plasma Lactic Acid Tomy (0.7-2.0) mmol/L Calcium (8.4-10.2) mg/dL Magnesium (1.6-2.3) mg/dL Total Bilirubin (0.2-1.3) mg/dL AST (17-59) U/L ALT (4-49) U/L Alkaline Phosphatase (38-126) U/L Troponin I 0.087 H* (0.000-0.034) ng/mL NT-Pro-B Natriuret Pep pg/mL Total Protein (6.3-8.2) g/dL Albumin (3.5-5.0) g/dL Critical Care Time Critical Care Time: Yes (30 minutes) Disposition Clinical Impression: Hypotension, [place] (acute kidney injury), Hyperkalemia, Anemia Disposition: ADMITTED IP TO THIS HOSP Condition: Fair
[2023-03-16] MEDS ORDERED: IPRATROPIUM-ALBUTEROL 3 ML NEB INHALATION PRN (02:52)
--- NOTE | 2023-03-16 03:02 | P.CNPUL ---
History of Present Illness Consult date: 03/16/23 Requesting physician: Israel Leblanc Reason for consult: other (ICU management) Chief complaint: Dizziness History of present illness: I am seeing this patient in new consultation today 03/16/2023 in the intensive care unit for hypotension. Patient is a 67-year-old white male with past medical history significant for coronary artery disease with past coronary artery bypass graft and subsequent PCI, ischemic cardiomyopathy with a baseline ejection fraction of 30-35%, hypertension, hyperlipidemia, osteoarthritis, mild COPD, obstructive sleep apnea without device, and is an ex-smoker. The patient is a poor historian despite being fully oriented. He has had multiple hospital readmissions since his most recent cardiac catheterization in October,. Apparently, the patient went to [facility] 2 days ago with symptoms of dizziness. He did reportedly have a syncopal event while in the emergency room, and left AGAINST MEDICAL ADVICE. He does not have an obvious signs of head t rauma. He then came to [facility]'s emergency room yesterday evening. He was found to be hypotensive and was fluid resuscitated with 1 L normal saline bolus and started on norepinephrine currently at 0.04 mics per kilogram per minute. Chest x-ray on arrival showed cardiomegaly, with mild to moderate pulmonary vascular congestion, and a small right pleural effusion. He was initially placed on 4 L nasal cannula in the emergency room. He is currently resting in bed, on 2L nasal cannula, in no acute distress. He denies any chest pain, heart palpitations, weight gain, lower extremity edema, orthopnea. He reports dizziness especially when standing. He has been taking multiple antihype rtensives and Lasix on an outpatient basis. Denies any infectious symptoms. There is component of acute kidney injury on patient's BMP showing a creatinine of 4.07 and a BUN of 58. Normal saline is infusing at 100 ML's per hour. NT proBNP was elevated at 12,700. Troponins were also elevated and are trending down at 0.1 and 0.087 respectively. EKG on arrival shows no obvious acute ischemic changes. CBC on arrival showed a WBC count of 5.7, hemoglobin 8.2, hematocrit 25.5, platelets 174. BMP shows sodium 132, potassium 5.7, chloride 90, serum CO2 21, he went 58, creatinine 4.07, glucose 105. Patient will be monitored in the intensive care unit at least overnight. Review of Systems REVIEW OF SYSTEMS: CONSTITUTIONAL: Denies any recent significant weight loss or weight gain. EYES: Denies change in vision. EARS, NOSE, MOUTH, THROAT: Denies headaches, denies sore throat. CARDIOVASCULAR: Denies chest pain, palpitations or syncopal episodes. RESPIRATORY: Denies shortness of breath, cough, congestion or hemoptysis. GASTROINTESTINAL: Denies change in appetite, abdominal pain, nausea and vomiting, or diarrhea GENITOURINARY: Denies hematuria, denies infections. MUSKULOSKELETAL: Denies pain, denies swelling. INTEGUMENTARY: Denies rash, denies eczema. NEUROLOGICAL: Denies recent memory loss, no recent seizure activity. PSYCHIATRIC: Denies anxiety, denies depression. HEMATOLOGIC/LYMPHATIC: Denies anemia, denies enlarged lymph node Past Medical History Past Medical History: Coronary Artery Disease (CAD), Chest Pain / Angina, COPD, GERD/Reflux, Hyperlipidemia, Hypertension, Myocardial Infarction ([place]), Osteoarthritis (OA), Sleep Apnea/CPAP/BIPAP Additional Past Medical History / Comment(s): hiatal hernia, chronic back pain, L foot drop, numbness/tingling bilateral legs, HUSAM without device, states stents x7 Last Myocardial Infarction Date:: 11/11/22 History of Any Multi-Drug Resistant Organisms: None Reported Past Surgical History: Back Surgery, Cholecystectomy, Coronary Bypass/CABG, Heart Catheterization With Stent, Orthopedic Surgery Additional Past Surgical History / Comment(s): Back surg x 2 with cage. L tennis elbow surg. HEART STENTS X7. Colonoscopy. Lasik eye surgery bilaterally. Emergency Cabg [facility] Past Anesthesia/Blood Transfusion Reactions: No Reported Reaction Additional Past Anesthesia/Blood Transfusion Reaction / Comment(s): Pt received blood during CABG without reaction. Date of Last Stent Placement:: Oct 2022 Past Psychological History: Anxiety, Depression, PTSD Additional Psychological History / Comment(s): He ambulates with a cane. He drives. Smoking Status: Former smoker Past Alcohol Use History: None Reported Additional Past Alcohol Use History / Comment(s): Pt states he started smoking in 1967 and used to smoke 3ppd down to maybe 6-8 cigarettes a day. quit smoking 01/28/2022 Past Drug Use History: None Reported Additional Drug Use History / Comment(s): states does not use cocaine anymore. - Past Family History Father Family Medical History: Coronary Artery Disease (CAD), Deep Vein Thrombosis (DVT), GERD/Reflux, Hyperlipidemia Additional Family Medical History / Comment(s): Father of a [place] in his 80's Mother Family Medical History: Coronary Artery Disease (CAD) Additional Family Medical History / Comment(s): Mother of a [place] at the age of 76yrs. Sister(s) Family Medical History: Cancer Additional Family Medical History / Comment(s): Lung cancer. Medications and Allergies Home Medications Medication Instructions Recorded Confirmed Type HYDROcodone/APAP 10-325MG [[place] 1 tab PO QID PRN 02/22/15 03/15/23 History 10-325] rOPINIRole HCL [Requip] 0.25 mg PO HS 09/29/17 03/15/23 History Apixaban [Eliquis] 2.5 mg PO BID #60 tab 11/18/22 03/15/23 Rx Aspirin 81 mg PO DAILY tab 11/18/22 03/15/23 Rx Clopidogrel [Plavix] 75 mg PO HS #30 tab 11/18/22 03/15/23 Rx Ezetimibe [Zetia] 10 mg PO DAILY #90 tab 11/18/22 03/15/23 Rx Nitroglycerin Sl Tabs [Nitrostat] 0.4 mg SUBLINGUAL Q5M PRN #25 tab 11/18/22 03/15/23 Rx Fenofibrate [Lofibra] 160 mg PO DAILY #30 tab 12/01/22 03/15/23 Rx Potassium Chloride ER [K-Dur 20] 20 meq PO BID 12/18/22 03/15/23 History Rosuvastatin [Crestor] 20 mg PO HS 12/18/22 03/15/23 History Fluticasone Nasal [place] [Flonase 1 spray EA NOSTRIL BID 01/27/23 03/15/23 History Nasal [place]] Fluticasone Propionate 110 Mcg 2 puff INHALATION RT-BID 01/27/23 03/15/23 History [Flovent 110 Mcg Inhaler] Furosemide [Lasix] 80 mg PO BID@0900,1600 #60 tab 02/01/23 03/15/23 Rx Metoprolol Succinate (ER) [Toprol 50 mg PO DAILY #30 tab 02/01/23 03/15/23 Rx XL] Midodrine [ProAmatine] 5 mg PO AC-TID #30 tab 02/01/23 03/15/23 Rx ALPRAZolam [Xanax] 2 mg PO DAILY PRN 03/15/23 03/15/23 History Allergies Allergy/AdvReac Type Severity Reaction Status Date / Time latex Allergy Swelling Verified 03/15/23 19:13 atorvastatin [From Lipitor] AdvReac JOINT PAIN Verified 03/15/23 19:13 Physical Exam Vitals: Vital Signs Temp Pulse Resp BP Pulse Ox 03/16/23 01:30 67 4 L 93/53 99 03/16/23 01:20 70 15 93/53 96 03/16/23 01:10 71 25 H 95/52 96 03/16/23 01:00 67 22 101/56 96 03/16/23 00:50 69 12 101/56 100 03/16/23 00:40 68 13 91/50 99 03/16/23 00:30 67 21 107/59 97 03/16/23 00:20 68 23 107/59 99 03/16/23 00:10 67 14 98/53 100 03/16/23 00:00 70 23 106/67 99 03/15/23 23:53 27 H 94 L 03/15/23 23:00 98.8 F 65 18 80/51 93 L 03/15/23 22:47 87/73 03/15/23 22:41 67 18 78/53 94 L 03/15/23 22:26 67 18 86/61 94 L 03/15/23 22:03 67 18 83/44 03/15/23 20:45 58 L 18 72/37 90 L 03/15/23 20:27 59 L 18 78/54 03/15/23 20:08 59 L 18 76/59 03/15/23 19:53 60 18 86/52 100 03/15/23 19:34 61 18 70/48 100 03/15/23 19:16 62 18 72/60 99 03/15/23 19:09 97.4 F L 64 16 90/49 97 Intake and Output 03/15/23 03/15/23 03/16/23 14:59 22:59 06:59 Intake Total 200.585 Output Total 335 Balance -134.415 Intake: IV 200 Sodium Chloride 0.9% 1, 200 000 ml @ 100 mls/hr IV . Q10H ELIANA Rx#:[id number] Intake, IV Titration 0.585 Amount Norepinephrine 32 mg In 0.585 Sodium Chloride 0.9% 218 ml @ 0.03 MCG/KG/MIN 1. 403 mls/hr IV .Q24H ELIANA Rx#:[id number] Output: Urine 335 Other: Weight 99.79 kg 100 kg GENERAL EXAM: Alert, 67-year-old white male, comfortable in no apparent distress. HEAD: Normocephalic and atraumatic EYES: Normal reaction of pupils, equal size. NOSE: Clear with pink turbinates. THROAT: No erythema or exudates. NECK: No masses, no JVD. CHEST: No chest wall deformity. There is old sternotomy incisional scar LUNGS: Equal air entry with no crackles, wheeze, rhonchi or dullness. On room air. No conversational dyspnea or accessory muscle use.. CVS: S1 and S2 normal with no audible murmur, regular rhythm. No extra heart sounds ABDOMEN: No hepatosplenomegaly, active bowel sounds, no guarding or rigidity. SPINE: No scoliosis or deformity SKIN: No rashes CENTRAL NERVOUS SYSTEM: No focal deficits, tone is normal in all 4 extremities. EXTREMITIES: There is no peripheral edema, clubbing, or cyanosis. Peripheral pulses are intact. Results - Laboratory Findings CBC and BMP: 03/15/23 19:28 03/15/23 19:28 PT/INR, D-dimer PT 11.9 sec (9.0-12.0) 03/15/23 19:28 INR 1.2 (<1.2) H 03/15/23 19:28 Abnormal lab findings: Abnormal Labs 03/15/23 03/15/23 03/15/23 19:28 19:28 19:28 RBC 2.94 L Hgb 8.2 L Hct 25.5 L RDW 18.0 H INR 1.2 H Sodium 132 L Potassium 5.7 H Carbon Dioxide 21 L BUN 58 H Creatinine 4.07 H Glucose 105 H Magnesium 2.5 H Troponin I 03/15/23 03/15/23 19:28 22:22 RBC Hgb Hct RDW INR Sodium Potassium Carbon Dioxide BUN Creatinine Glucose Magnesium Troponin I 0.102 H* 0.087 H* - Diagnostic Findings Chest x-ray: image reviewed Assessment and Plan Assessment: Acute on chronic hypoxemic respiratory failure likely related to a mild exacerbation of the patient's known congestive heart failure with reduced ejection fraction. Currently, on 2 L nasal cannula. Chest x-ray on arrival shows cardiomegaly with mild to moderate pulmonary vascular congestion. NT proBNP was elevated at 12,700 Hypotension, requiring vasopressors, probably related to hypovolemia. Patient has been on Lasix 80 mg twice a day on an outpatient basis. dizziness Acute on chronic kidney injury with a creatinine of 4.07 Elevated troponins, ECG on arrival showed no obvious evidence of acute ischemic event Chronic anemia Ischemic cardiomyopathy with a baseline ejection fraction of 30-35% Coronary artery disease status post coronary artery bypass graft and subsequent PCI in October 2022. Hyperlipidemia Osteoarthritis Chronic obstructive pulmonary disease, stable Obstructive sleep apnea Ex-smoker Plan: Patient's medications, labs, chest x-ray reviewed Continue supplemental oxygen to maintain oxygen saturation 92% or greater continue norepinephrine infusion continue gentle hydration with normal saline at 100 ML's per hour Trend troponins Cardiology was consulted Nephrology was consulted We will continue monitoring the patient in the intensive care unit at least overnight. I have personally seen and examined the patient, performed the documentation and the assessment and plan as written. Number of minutes spent on the visit:20 Time with Patient: Greater than 30
[2023-03-16] MEDS ORDERED: ALPRAZolam 0.25 MG TAB PO STA (03:14)
[2023-03-16 06:31] LABS: Anisocytosis Slight; Basophils % (A) 1 %; Eosinophils # (A) 0.1 k/uL (0-0.7); Eosinophils % (A) 2 %; HCT 27.6 % (39.0-53.0); HGB 8.7 gm/dL (13.0-17.5); Hypochromasia Moderate; Lymphocytes # (A) 2.4 k/uL (1.0-4.8); Lymphocytes % (A) 30 %; MCH 27.9 pg (25.0-35.0); MCHC 31.5 g/dL (31.0-37.0); MCV 88.4 fL (80.0-100.0); Mean Platelet Volume 10.5; Monocytes # (A) 0.5 k/uL (0-1.0); Monocytes % (A) 7 %; Neutrophils # (A) 4.6 k/uL (1.3-7.7); Neutrophils % (A) 58 %; Platelet Count 208 k/uL (150-450); RBC 3.12 m/uL (4.30-5.90); WBC 7.9 k/uL (3.8-10.6)
[2023-03-16 06:41] LABS: Albumin 3.9 g/dL (3.5-5.0); Magnesium 2.5 mg/dL (1.6-2.3); Potassium 4.8 mmol/L (3.5-5.1); Total Bilirubin 0.7 mg/dL (0.2-1.3); Total Protein 7.1 g/dL (6.3-8.2)
[2023-03-16] MEDS: MORPHINE SULFATE 4 MG/ML SYRINGE IV PRN ×2 (09:13→12:52)
[2023-03-16] MEDS: FAMOTIDINE 20 MG TAB PO SCH (09:15)
[2023-03-16] MEDS: FLUTICASONE 110 MCG INHALER INHALATION SCH ×3 (09:23→20:55)
[2023-03-16] MEDS ORDERED: NITROGLYCERIN SL TABS 0.4 MG TAB SUBLINGUAL PRN (10:38)
[2023-03-16] MEDS: HYDROcodone/APAP 10-325MG 1 EACH TAB PO PRN ×3 (11:12→23:42)
[2023-03-16] MEDS: MIDODRINE 5 MG TAB PO SCH ×2 (11:13→17:01)
--- NOTE | 2023-03-16 11:42 | P.NPCON ---
History of Present Illness - Reason for Consult acute renal failure, chronic renal failure - History of Present Illness Reason for consultation: Acute kidney injury on chronic kidney disease History of present illness: Patient is a 67-year-old male seen in consultation for acute kidney injury on chronic kidney disease. Patient's had multiple episodes of acute kidney injury in the past. Creatinine is low as 1.2 one dated 01/23/2023. Creatinine this admission was 4.07 is 3.73 today. Patient came to the hospital due to dizziness. Patient states initially came to the hospital on Monday but left AMA . He didn't feel well and returned to the hospital. He did fall and hit his head. He admits to good urine output. No vomiting or diarrhea. No abdominal pain. No fever or chills. He denies use of nonsteroidals. Denies history of diabetes. He does have history of coronary artery disease with history of CABG and multiple cardiac stents. Patient states he's been on diuretics and has lost over 50 pounds in the last month or so. He is currently receiving normal saline at 50 mL an hour. Patient has a history of CHF with ejection fraction of 30- 35%. Blood pressure is in the lower side in the systolic 80s and 90s. He is currently on Levophed. Vital signs are stable. On Levophed. General: No acute distress. HEENT: Head exam is unremarkable. LUNGS: No audible rhonchi or wheezes. HEART: Rate and Rhythm are regular. ABDOMEN: Nontender. Obese. EXTREMITITES: No edema. Past Medical History Past Medical History: Coronary Artery Disease (CAD), Chest Pain / Angina, COPD, GERD/Reflux, Hyperlipidemia, Hypertension, Myocardial Infarction ([place]), Osteo arthritis (OA), Sleep Apnea/CPAP/BIPAP Additional Past Medical History / Comment(s): hiatal hernia, chronic back pain, L foot drop, numbness/tingling bilateral legs, HUSAM without device, states stents x7 Last Myocardial Infarction Date:: 11/11/22 History of Any Multi-Drug Resistant Organisms: None Reported Past Surgical History: Back Surgery, Cholecystectomy, Coronary Bypass/CABG, Heart Catheterization With Stent, Orthopedic Surgery Additional Past Surgical History / Comment(s): Back surg x 2 with cage. L tennis elbow surg. HEART STENTS X7. Colonoscopy. Lasik eye surgery bilaterally. Emergency Cabg [facility] Past Anesthesia/Blood Transfusion Reactions: No Reported Reaction Additional Past Anesthesia/Blood Transfusion Reaction / Comment(s): Pt received blood during CABG without reaction. Date of Last Stent Placement:: Oct 2022 Past Psychological History: Anxiety, Depression, PTSD Additional Psychological History / Comment(s): He ambulates with a cane. He drives. Smoking Status: Former smoker Past Alcohol Use History: None Reported Additional Past Alcohol Use History / Comment(s): Pt states he started smoking in 1967 and used to smoke 3ppd down to maybe 6-8 cigarettes a day. quit smoking 01/28/2022 Past Drug Use History: None Reported Additional Drug Use History / Comment(s): states does not use cocaine anymore. - Past Family History Father Family Medical History: Coronary Artery Disease (CAD), Deep Vein Thrombosis (DVT), GERD/Reflux, Hyperlipidemia Additional Family Medical History / Comment(s): Father of a [place] in his 80's Mother Family Medical History: Coronary Artery Disease (CAD) Additional Family Medical History / Comment(s): Mother of a [place] at the age of 76yrs. Sister(s) Family Medical History: Cancer Additional Family Medical History / Comment(s): Lung cancer. Medications and Allergies Home Medications Medication Instructions Recorded Confirmed Type HYDROcodone/APAP 10-325MG [[place] 1 tab PO QID PRN 02/22/15 03/15/23 History 10-325] rOPINIRole HCL [Requip] 0.25 mg PO HS 09/29/17 03/15/23 History Apixaban [Eliquis] 2.5 mg PO BID #60 tab 11/18/22 03/15/23 Rx Aspirin 81 mg PO DAILY tab 11/18/22 03/15/23 Rx Clopidogrel [Plavix] 75 mg PO HS #30 tab 11/18/22 03/15/23 Rx Ezetimibe [Zetia] 10 mg PO DAILY #90 tab 11/18/22 03/15/23 Rx Nitroglycerin Sl Tabs [Nitrostat] 0.4 mg SUBLINGUAL Q5M PRN #25 tab 11/18/22 03/15/23 Rx Fenofibrate [Lofibra] 160 mg PO DAILY #30 tab 12/01/22 03/15/23 Rx Potassium Chloride ER [K-Dur 20] 20 meq PO BID 12/18/22 03/15/23 History Rosuvastatin [Crestor] 20 mg PO HS 12/18/22 03/15/23 History Fluticasone Nasal [place] [Flonase 1 spray EA NOSTRIL BID 01/27/23 03/15/23 Histo ry Nasal [place]] Fluticasone Propionate 110 Mcg 2 puff INHALATION RT-BID 01/27/23 03/15/23 His tory [Flovent 110 Mcg Inhaler] Furosemide [Lasix] 80 mg PO BID@0900,1600 #60 tab 02/01/23 03/15/23 Rx Metoprolol Succinate (ER) [Toprol 50 mg PO DAILY #30 tab 02/01/23 03/15/23 Rx XL] Midodrine [ProAmatine] 5 mg PO AC-TID #30 tab 02/01/23 03/15/23 Rx ALPRAZolam [Xanax] 2 mg PO DAILY PRN 03/15/23 03/15/23 History Allergies Allergy/AdvReac Type Severity Reaction Status Date / Time latex Allergy Swelling Verified 03/15/23 19:13 atorvastatin [From Lipitor] AdvReac JOINT PAIN Verified 03/15/23 19:13 Physical Exam Vitals: Vital Signs Temp Pulse Resp BP Pulse Ox 03/16/23 11:00 80 10 L 87/53 95 03/16/23 10:50 80 12 87/53 95 03/16/23 10:40 78 22 87/53 89 L 03/16/23 10:30 79 14 95/55 88 L 03/16/23 10:20 81 0 L 95/55 89 L 03/16/23 10:10 79 23 95/55 93 L 03/16/23 10:00 80 13 107/54 95 03/16/23 09:50 80 33 H 107/54 93 L 03/16/23 09:40 82 28 H 90/49 96 03/16/23 09:30 80 22 87/55 93 L 03/16/23 09:20 80 23 87/55 94 L 03/16/23 09:10 79 14 99/57 85 L 03/16/23 09:00 75 23 93/52 92 L 03/16/23 08:50 75 23 93/52 92 L 03/16/23 08:40 76 25 H 78/49 95 03/16/23 08:30 73 12 82/45 93 L 03/16/23 08:20 73 15 82/45 91 L 03/16/23 08:10 70 7 L 87/49 92 L 03/16/23 08:00 99 F 73 12 89/51 88 L 03/16/23 07:50 74 24 89/51 03/16/23 07:40 74 21 96/53 89 L 03/16/23 07:30 72 0 L 90/51 95 03/16/23 07:20 73 23 90/51 90 L 03/16/23 07:10 71 8 L 90/52 91 L 03/16/23 07:00 71 12 84/50 92 L 03/16/23 06:50 70 9 L 84/50 92 L 03/16/23 06:40 71 12 87/54 90 L 03/16/23 06:30 71 9 L 101/57 89 L 03/16/23 06:20 73 9 L 101/57 91 L 03/16/23 06:10 73 5 L 114/69 97 03/16/23 06:00 79 29 H 81/51 97 03/16/23 05:50 70 19 81/51 03/16/23 05:40 70 19 75/41 94 L 03/16/23 05:30 69 17 75/48 93 L 03/16/23 05:20 68 18 75/48 93 L 03/16/23 05:10 67 16 82/45 93 L 03/16/23 05:00 68 20 67/34 96 03/16/23 04:50 66 24 67/34 91 L 03/16/23 04:40 66 21 64/38 94 L 03/16/23 04:30 67 21 82/55 88 L 03/16/23 04:20 69 21 82/55 93 L 03/16/23 04:10 68 22 82/45 94 L 03/16/23 04:00 98.2 F 70 12 82/45 92 L 03/16/23 03:50 70 22 82/45 94 L 03/16/23 03:40 69 15 88/49 93 L 03/16/23 03:30 70 10 L 99/60 94 L 03/16/23 03:20 71 18 70/38 90 L 03/16/23 03:10 70 18 91 L 03/16/23 03:00 70 20 74/40 89 L 03/16/23 02:50 70 22 91 L 03/16/23 02:40 71 24 89 L 03/16/23 02:30 70 21 90/49 85 L 03/16/23 02:23 71 23 90/49 90 L 03/16/23 02:00 70 23 106/56 89 L 03/16/23 01:50 72 21 106/56 92 L 03/16/23 01:40 71 14 75/44 98 03/16/23 01:30 67 4 L 93/53 99 03/16/23 01:20 70 15 93/53 96 03/16/23 01:10 71 25 H 95/52 96 03/16/23 01:00 67 22 101/56 96 03/16/23 00:50 69 12 101/56 100 03/16/23 00:40 68 13 91/50 99 03/16/23 00:30 67 21 107/59 97 03/16/23 00:20 68 23 107/59 99 03/16/23 00:10 67 14 98/53 100 03/16/23 00:00 98.4 F 70 23 106/67 99 03/15/23 23:53 27 H 94 L 03/15/23 23:00 98.8 F 65 18 80/51 93 L 03/15/23 22:47 87/73 03/15/23 22:41 67 18 78/53 94 L 03/15/23 22:26 67 18 86/61 94 L 03/15/23 22:03 67 18 83/44 03/15/23 20:45 58 L 18 72/37 90 L 03/15/23 20:27 59 L 18 78/54 03/15/23 20:08 59 L 18 76/59 03/15/23 19:53 60 18 86/52 100 03/15/23 19:34 61 18 70/48 100 03/15/23 19:16 62 18 72/60 99 03/15/23 19:09 97.4 F L 64 16 90/49 97 Intake and Output 03/15/23 03/16/23 03/16/23 22:59 06:59 14:59 Intake Total 700.585 600 Output Total 455 500 Balance 245.585 100 Intake: IV 700 100 Sodium Chloride 0.9% 1, 700 100 000 ml @ 50 mls/hr IV . Q20H [facility] Rx#:[id number] Intake, IV Titration 0.585 200 Amount Norepinephrine 32 mg In 0.585 Sodium Chloride 0.9% 218 ml @ 0.03 MCG/KG/MIN 1. 403 mls/hr IV .Q24H [facility]IANA Rx#:[id number] Sodium Chloride 0.9% 1, 200 000 ml @ 50 mls/hr IV . Q20H [facility]IANA Rx#:[id number] Oral 300 Output: Urine 455 500 Other: Voiding Method Indwelling Catheter # Voids 1 0 Weight 99.79 kg 100 kg Results - Lab Results Most recent lab results Calcium 9.0 mg/dL (8.4-10.2) 03/16/23 06:01 Magnesium 2.5 mg/dL (1.6-2.3) H 03/16/23 06:01 03/16/23 06:01 03/16/23 06:01 Assessment and Plan Plan: Assessment: 1. Acute kidney injury secondary to ATN secondary to hypotension. Creatinine 4.07 on admission and is 3.73 today. Kidney ultrasound from December 2022 showed no evidence of hydronephrosis. 2. Chronic kidney disease stage IIIa with creatinine as low as 1.2 one dated 01/23/2023. 3. Dizziness and fall possibly related to hypotension. 4. Chronic systolic CHF with ejection fraction of 30-35% with moderate mitral a nd tricuspid regurgitation. 5. Hyperkalemia secondary to acute kidney injury and potassium supplementation. Improved. 6. Hypovolemic hyponatremia. Hydration. 7. Anemia of chronic kidney disease. Rule out iron deficiency. Plan: Maintain gentle IV hydration. Check a.m. cortisol level. Continue to hold diuretics. Check UA. Avoid nephrotoxins. Continue to monitor renal function and urine output. Wean Levophed. Thank you for the consultation. I will continue to follow the patient with you during his hospital stay.
--- NOTE | 2023-03-16 13:29 | NM ---
EXAMINATION TYPE: NM pul vent and perfuse DATE OF EXAM: 03/16/2023 CLINICAL INDICATION: Male, 67 years old with history of R/O PE; TECHNIQUE: Utilizing inhalation of 65.5 mCi Tc 99m DTPA aerosol and intravenous injection of 4.5 mCi of Tc 99m MAA, ventilation and perfusion images are acquired post injection in multiple projections. FINDINGS: Normal radiotracer distribution is noted in the lungs. No mismatch perfusion defects. There is some c lumping of tracer within the central airways that may be seen with COPD. IMPRESSION: 1. Very low probability for pulmonary embolus. 2. Some clumping of tracer within the central airways may be seen in the setting of COPD.
[2023-03-16] MEDS: ALPRAZolam 1 MG TAB PO PRN (14:31)
[2023-03-16] MEDS: APIXABAN 2.5 MG TABLET PO SCH (20:08)
[2023-03-16] MEDS: ACETAMINOPHEN TAB 325 MG TAB PO PRN (20:08)
[2023-03-16] MEDS: CLOPIDOGREL 75 MG TAB PO SCH (20:08)
[2023-03-16] MEDS: ALPRAZolam 0.25 MG TAB PO SCH (20:08)
[2023-03-16] MEDS: FLUTICASONE 50MCG/SPRAY NASAL 16GM EA NOSTRIL SCH (20:09)
[2023-03-16] MEDS: PATIENT'S OWN (Rosuvastatin 20 MG Tablet) PO SCH (20:09)
--- NOTE | 2023-03-16 22:08 | CONS ---
CONSULTATION HISTORY OF PRESENT ILLNESS: This is a 67-year-old gentleman with complex and multiple cardiac problems including coronary artery disease, status post bypass surgery, status post acute occlusion of the venous graft to the LAD, CAD, and aspiration thrombectomy complicated by ventricular fibrillation in October, ischemic cardiomyopathy with severe LV dysfunction, chronic systolic heart failure with intravascular volume depletion and worsening renal failure, presented to hospital secondary to hypotension with dizziness, lightheadedness, and fall. He was found to be severely hypotensive and is currently in ICU, receiving Levophed. The patient denies chest pain or difficulty in breathing. He has leg edema. Labs showed that the hemoglobin is 8.7, BUN is 52, creatinine is 3.7, which has improved compared to what it was at initial hospitalization. His Lasix is currently on hold. PAST MEDICAL HISTORY: Significant for coronary artery disease, ischemic cardiomyopathy, chronic systolic heart failure, chronic renal failure. MEDICATIONS AT HOME: 1. Plavix 75 mg daily. 2. Crestor 20 mg daily. 3. Toprol-XL 50 mg daily. 4. Lasix 80 b.i.d. 5. Lofibra. 6. Zetia. 7. Aspirin. 8. Eliquis. 9. Xanax. ALLERGIES: To Lipitor and latex. FAMILY HISTORY: Negative for premature coronary artery disease. SOCIAL HISTORY: Negative for current smoking, EtOH abuse or drug abuse. REVIEW OF SYSTEMS: A review of systems has been performed, pertinence are as documented. PHYSICAL EXAMINATION: VITAL SIGNS: Heart rate is 80 beats per minute, blood pressure is 87/50, respiratory rate is 12, and O2 saturation is 95%. NECK: There is no jugular venous distention. Carotid upstroke is normal. There is no bruit. CHEST: Reveals good air entry bilaterally. HEART: First and second heart sounds. No gallop, no murmur. ABDOMEN: Soft. EXTREMITIES: Reveals 1+ pitting edema bilaterally. Troponins are mildly elevated at 0.1 and 0.8[place] [address]. ASSESSMENT: 1. Ischemic cardiomyopathy. 2. Elevated troponin secondary to renal failure. 3. Severe symptomatic hypotension secondary to volume depletion. 4. Chronic systolic heart failure. PLAN: Continue the Levophed. Supportive care. MMODL / IJN: [id number] /
[2023-03-16 22:29] LABS: % Iron Saturation 5.88 (15.00-50.00); Ferritin 32.9 ng/mL (22.0-322.0)
[2023-03-16] MEDS: NOREPINEPHRINE 32 MG in SODIUM CHLORIDE 0.9% 218 ML IV SCH (23:43)
[2023-03-17] MEDS: ACETAMINOPHEN TAB 325 MG TAB PO PRN ×2 (02:30→20:10)
--- NOTE | 2023-03-17 04:05 | HP ---
HISTORY AND PHYSICAL CHIEF COMPLAINT: Dizziness and hypotension. HISTORY OF PRESENT ILLNESS: This is another admission for this 67-year-old white male with coronary artery disease. He had a CABG many years ago. More recently, he has been having increasing difficulty with infarctions, atherosclerotic cardiomyopathy, congestive heart failure, and hypotension. He has been home for a few weeks and doing fairly well and then he became quite dizzy and lightheaded and presented to the emergency room with a blood pressure in the 70s. He denied chest pain. In the emergency room, his troponin was elevated and he had a marked elevation of his BNP. REVIEW OF SYSTEMS: He has had no confusion, focal neurologic deficits, difficulty with vision or hearing, cough, hemoptysis, fever, chills, abdominal pain, nausea, vomiting, diarrhea, or urinary complaints, etc. PAST MEDICAL HISTORY, FAMILY HISTORY, PERSONAL AND SOCIAL HISTORIES: Unchanged from his recent admitting discharge summaries. ALLERGIES: He is allergic to latex, Pravachol, Lipitor. MEDICATIONS: He is on, 1. Xanax. 2. Flexeril. 3. Omeprazole. 4. Lisinopril. 5. Metoprolol. 6. Lasix. 7. Aspirin. 8. [place]. 9. Ezetimibe. 10.Potassium. 11.Crestor. 12.Fenofibrate. 13.Clopidogrel. 14.Eliquis. 15.Ropinirole. 16.Symbicort. 17.Isosorbide dinitrate. He has been on Repatha in the past. Remainder of his history is unremarkable. SOCIAL HISTORY: He used to smoke, but states he does not any longer. States he is not drinking. PHYSICAL EXAMINATION: VITAL SIGNS: Blood pressure is 70/40 with a pulse of 63, respirations of 40, and he is afebrile. GENERAL: He appeared to be slightly pale. HEENT: Head, ears, eyes, nose, mouth, and throat were otherwise normal. NECK: Veins were not distended. CHEST: Demonstrated decreased breath sounds throughout. CARDIAC: Demonstrated what sounded like sinus rhythm. ABDOMEN: Soft and nontender. EXTREMITIES: Normal. NEUROLOGICAL: He is intact. DIAGNOSES: He is admitted to the hospital with diagnoses: 1. Hypotension. 2. Advanced coronary artery disease. 3. Recent myocardial infarction. 4. Acute on chronic congestive heart failure (HFrEF). 5. Chronic obstructive pulmonary disease. 6. Chronic kidney disease. PLAN: 1. Bedrest. 2. IV fluids. 3. Serial EKGs and enzymes. 4. Cardiology consult. 5. Work up his anemia with a hemoglobin of 8.2. 6. Follow GFR of 17. REYNALDO / NATHALYN: [id number] /
--- NOTE | 2023-03-17 04:19 | PN ---
PROGRESS NOTE DATE OF SERVICE: 03/16/2023 CHIEF COMPLAINT: Hypotension, congestive heart failure, and elevated troponin. HISTORY OF PRESENT ILLNESS: This gentleman is feeling well. He denies any shortness of breath or chest pain. PHYSICAL EXAMINATION: CHEST: Demonstrates decreased breath sounds posteriorly. CARDIAC: Sounds slightly irregular. ABDOMEN: Soft and nontender. IMPRESSION: 1. Hypotension. 2. Coronary artery disease. 3. HFrEF. 4. Chronic obstructive pulmonary disease. 5. Arthritis of LS spine. PLAN: Continue to follow with Cardiology. His condition is concerning considering his hypotension, elevated troponin, hemoglobin of 8.2, and GFR of 17. MMODL / IJN: [id number] /
[2023-03-17] MEDS: HYDROcodone/APAP 10-325MG 1 EACH TAB PO PRN ×4 (05:22→23:19)
--- NOTE | 2023-03-17 06:14 | XR ---
EXAMINATION TYPE: XR chest 1V portable DATE OF EXAM: 03/17/2023 CLINICAL HISTORY: Difficulty breathing progress study. TECHNIQUE: Single AP portable semiupright view of the chest is obtained. COMPARISON: Chest x-ray from 2 days earlier FINDINGS: Overlying sternal wires and mediastinal clips are redemonstrated. Persistent cardiomegaly with small right pleural effusion. Coronary artery stents are redemonstrated. Mild interstitial edema again seen. Osseous structures are intact. IMPRESSION: Cardiomegaly with small right pleural effusion and mild central vascular congestion redem onstrated. No significant change from most recent x-ray.
[2023-03-17 06:35] LABS: Anisocytosis Slight; Hypochromasia Moderate; MCH 27.9 pg (25.0-35.0); MCHC 31.9 g/dL (31.0-37.0); MCV 87.6 fL (80.0-100.0); Platelet Count 176 k/uL (150-450); RBC 2.85 m/uL (4.30-5.90); WBC 5.9 k/uL (3.8-10.6)
[2023-03-17] MEDS: MIDODRINE 5 MG TAB PO SCH ×3 (06:56→17:09)
[2023-03-17 06:58] LABS: Calcium 8.6 mg/dL (8.4-10.2); Potassium 4.3 mmol/L (3.5-5.1)
[2023-03-17 07:39] LABS: Appearance,Urine Clear (Clear); Bilirubin,Urine Negative (Negative); Blood,Urine Negative (Negative); Color,Urine Yellow; Glucose,Urine (UA) Negative (Negative); Ketones,Urine Negative (Negative); Leukocyte Esterase,Urine Negative (Negative); Nitrite,Urine Negative (Negative); Protein,Urine Negative (Negative); Specific Gravity,Urine 1.012 (1.001-1.035); Urobilinogen,Urine <2.0 mg/dL (<2.0)
[2023-03-17] MEDS: FENOFIBRATE 160 MG TAB PO SCH (08:22)
[2023-03-17] MEDS: ALPRAZolam 1 MG TAB PO PRN (08:22)
[2023-03-17] MEDS: EZETIMIBE 10 MG TAB PO SCH (08:22)
[2023-03-17] MEDS: ASPIRIN 81 MG PO SCH (08:22)
[2023-03-17] MEDS: POTASSIUM CHLORIDE ER 20 MEQ TAB.ER PO SCH ×2 (08:23→20:10)
[2023-03-17] MEDS: FLUTICASONE 50MCG/SPRAY NASAL 16GM EA NOSTRIL SCH ×2 (08:23→20:09)
[2023-03-17] MEDS: FAMOTIDINE 20 MG TAB PO SCH (08:23)
[2023-03-17] MEDS: APIXABAN 2.5 MG TABLET PO SCH ×2 (08:23→20:10)
[2023-03-17] MEDS: FLUTICASONE 110 MCG INHALER INHALATION SCH ×3 (08:24→20:52)
[2023-03-17] MEDS ORDERED: FUROSEMIDE 10 MG/ML 2 ML VIAL IV STA (09:52)
--- NOTE | 2023-03-17 11:28 | P.PN ---
Subjective Patient is seen in follow-up for acute kidney injury. Renal function improving. Creatinine 2.23 today. Nonoliguric. Denies chest pain or shortness of breath. Blood pressure stable. Off vasopressors. Vital signs are stable. General: No acute distress. HEENT: Head exam is unremarkable. LUNGS: No audible rhonchi or wheezes. HEART: Rate and Rhythm are regular. ABDOMEN: Nontender, obese. EXTREMITITES: 1+ edema. Objective - Vital Signs Vital signs: Vital Signs Temp 98.4 F 03/17/23 08:00 Pulse 84 03/17/23 10:00 Resp 20 03/17/23 10:00 BP 102/84 03/17/23 10:00 Pulse Ox 89 L 03/17/23 10:00 FiO2 Intake & Output 03/16/23 03/17/23 03/17/23 18:59 06:59 18:59 Intake Total 2150 834.751 200 Output Total 2250 750 0 Balance -100 84.751 200 Weight 106.7 kg Intake: IV 100 550 200 Sodium Chloride 0.9% 1, 100 550 200 000 ml @ 50 mls/hr IV . Q20H [facility] Rx#:[id number] Intake, IV Titration 600 44.751 Amount Norepinephrine 32 mg In 44.751 Sodium Chloride 0.9% 218 ml @ 0.03 MCG/KG/MIN 1. 403 mls/hr IV .Q24H [facility] Rx#:[id number] Sodium Chloride 0.9% 1, 600 000 ml @ 50 mls/hr IV . Q20H [facility] Rx#:[id number] Oral 1450 120 Blood Product 120 Output: Urine 2250 750 0 Other: Voiding Method Urinal # Voids 0 1 - Labs CBC & Chem 7: 03/17/23 06:15 03/17/23 06:15 Labs: Abnormal Lab Results - Last 24 Hours (Table) 03/16/23 03/17/23 03/17/23 Range/Units 06:01 06:15 06:15 RBC 2.85 L (4.30-5.90) m/uL Hgb 8.0 L (13.0-17.5) gm/dL Hct 25.0 L (39.0-53.0) % RDW 18.0 H (11.5-15.5) % Sodium 136 L (137-145) mmol/L Carbon Dioxide 21 L (22-30) mmol/L BUN 33 H (9-20) mg/dL Creatinine 2.23 H (0.66-1.25) mg/dL Glucose 111 H (74-99) mg/dL Iron 35 L (65-175) ug/dL TIBC 601 H (228-460) ug/dL % Saturation 5.88 L (15.00-50.00) Transferrin 429.0 H (204.0-354.0) mg/dL Microbiology - Last 24 Hours (Table) 03/15/23 22:05 Blood Culture - Preliminary Blood 03/15/23 22:20 Blood Culture - Preliminary Blood Assessment and Plan Plan: Assessment: 1. Acute kidney injury secondary to ATN secondary to hypotension. Creatinine 4.07 on admission and is 2.23 today. Kidney ultrasound from December 2022 showed no evidence of hydronephrosis. UA benign. 2. Chronic kidney disease stage IIIa with creatinine as low as 1.2 one dated 01/23/2023. Etiology is nephrosclerosis. 3. Dizziness and fall possibly related to hypotension. 4. Chronic systolic CHF with ejection fraction of 30-35% with moderate mitral and tricuspid regurgitation. 5. Hyperkalemia secondary to acute kidney injury and potassium supplementation. Improved. 6. Hypovolemic hyponatremia, improved with IV hydration. 7. Anemia of chronic kidney disease. Iron deficiency noted. 8. Volume overload. Plan: Hep-Lock IV fluids. Lasix 20 mg IV once today. Cortisol level not low. Avoid nephrotoxins. Continue to monitor renal function and urine output. 1500 mL fluid restriction. Add IV iron. Maintain midodrine. Hold for systolic blood pressure greater than 110.
[2023-03-17] MEDS: SODIUM FERRIC GLUCONAT-SUCROSE 125 MG in SODIUM CHLORIDE 0.9% 100 ML IVPB SCH (12:16)
--- NOTE | 2023-03-17 12:55 | P.PN ---
Subjective Progress Note Date: 03/17/23 Principal diagnosis: Acute on chronic hypoxic respiratory failure secondary to acute systolic congestive heart failure, ejection fraction of 30-35 per I am seeing this patient in new consultation today 03/16/2023 in the intensive care unit for hypotension. Patient is a 67-year-old white male with past medical history significant for coronary artery disease with past coronary artery bypass graft and subsequent PCI, ischemic cardiomyopathy with a baseline ejection fraction of 30-35%, hypertension, hyperlipidemia, osteoarthritis, mild COPD, obstructive sleep apnea without device, and is an ex-smoker. The patient is a poor historian despite being fully oriented. He has had multiple hospital readmissions since his most recent cardiac catheterization in October,. Ap parently, the patient went to [facility] 2 days ago with symptoms of dizziness. He did reportedly have a syncopal event while in the emergency room, and left AGAINST MEDICAL ADVICE. He does not have an obvious signs of head trauma. He then came to [facility]'s emergency room yesterday evening. He was found to be hypotensive and was fluid resuscitated with 1 L normal saline bolus and started on norepinephrine currently at 0.04 mics per kilogram per minute. Chest x-ray on arrival showed cardiomegaly, with mild to moderate pulmonary vascular congestion, and a small right pleural effusion. He was initially placed on 4 L nasal cannula in the emergency room. He is currently resting in bed, on 2L nasal cannula, in no acute distress. He denies any chest pain, heart palpitations, weight gain, lower extremity edema, orthopnea. He reports dizziness especially when standing. He has been taking multiple antihypertensives and Lasix on an outpatient basis. Denies any infectious symptoms. There is component of acute kidney injury on patient's BMP showing a creatinine of 4.07 and a BUN of 58. Normal saline is infusing at 100 ML's per hour. NT proBNP was elevated at 12,700. Troponins were also elevated and are trending down at 0.1 and 0.087 respectively. EKG on arrival shows no obvious acute ischemic changes. CBC on arrival showed a WBC count of 5.7, hemoglobin 8.2, hematocrit 25.5, platelets 174. BMP shows sodium 132, potassium 5.7, chloride 90, serum CO2 21, he went 58, creatinine 4.07, glucose 105. Patient will be monitored in the intensive care unit at least overnight. Reevaluated today on 03/17/2023, patient is feeling much better today, he is on 3 L nasal cannula, his renal functioning is improving, creatinine is down to 2.23 from 3.73 yesterday. Continues to have fair urine output, patient clinically feeling better his WBC count is 5.9 hemoglobin is 8 hematocrit is 25. Serum cortisol was 9 troponins 0.087, chest x-ray is showing small right-sided pleural effusion and mild congestive changes. Patient will receive 1 dose of Lasix 20 mg IV push 1, remains on fluid restriction at 1500 mL in 24 hours IV iron was added for his low hemoglobin and iron deficiency anemia Objective - Vital Signs Vital signs: Vital Signs Temp 98.4 F 03/17/23 12:00 Pulse 77 03/17/23 12:00 Resp 21 03/17/23 12:00 BP 100/60 03/17/23 12:00 Pulse Ox 89 L 03/17/23 10:00 FiO2 Intake & Output 03/16/23 03/17/23 03/17/23 18:59 06:59 18:59 Intake Total 2150 834.751 220 Output Total 2250 750 350 Balance -100 84.751 -130 Weight 106.7 kg Intake: IV 100 550 220 Sodium Chloride 0.9% 1, 100 550 220 000 ml @ 50 mls/hr IV . Q20H [facility] Rx#:[id number] Intake, IV Titration 600 44.751 Amount Norepinephrine 32 mg In 44.751 Sodium Chloride 0.9% 218 ml @ 0.03 MCG/KG/MIN 1. 403 mls/hr IV .Q24H [facility] Rx#:[id number] Sodium Chloride 0.9% 1, 600 000 ml @ 50 mls/hr IV . Q20H [facility] Rx#:[id number] Oral 1450 120 Blood Product 120 Output: Urine 2250 750 350 Other: Voiding Method Urinal # Voids 0 1 - Exam Physical Exam: Revealed a 67-year-old white male pleasant in no distress on 3 L nasal cannula. Head: Atraumatic normocephalic. HEENT:: [No neck masses.] [No thyromegaly.] [No JVD.] Chest: Slightly diminished breath sounds at the right base with dullness. Left side is clear] Cardiac Exam: [Normal S1 and S2, no S3 gallop, no murmur.] Abdomen: [Soft, nontender, no megaly, no rebound, no guarding, normal bowel sounds.] Extremities: [No clubbing, 1+ bipedal edema, no cyanosis.] Neurological Exam: [No focal neurologic deficit.] Alert and oriented 3. Psychiatric: Normal mood affect and normal mental status examination. Skin: No rashes. - Labs CBC & Chem 7: 03/17/23 06:15 03/17/23 06:15 Labs: Abnormal Lab Results - Last 24 Hours (Table) 03/16/23 03/17/23 03/17/23 Range/Units 06:01 06:15 06:15 RBC 2.85 L (4.30-5.90) m/uL Hgb 8.0 L (13.0-17.5) gm/dL Hct 25.0 L (39.0-53.0) % RDW 18.0 H (11.5-15.5) % Sodium 136 L (137-145) mmol/L Carbon Dioxide 21 L (22-30) mmol/L BUN 33 H (9-20) mg/dL Creatinine 2.23 H (0.66-1.25) mg/dL Glucose 111 H (74-99) mg/dL Iron 35 L (65-175) ug/dL TIBC 601 H (228-460) ug/dL % Saturation 5.88 L (15.00-50.00) Transferrin 429.0 H (204.0-354.0) mg/dL Microbiology - Last 24 Hours (Table) 03/15/23 22:05 Blood Culture - Preliminary Blood 03/15/23 22:20 Blood Culture - Preliminary Blood Assessment and Plan Assessment: Impression: Acute on chronic hypoxic respiratory failure secondary to acute systolic conge stive heart failure, ejection fraction 30-35%. Right-sided pleural effusion, cardiogenic in nature. Hypotension, requiring pressors upon presentation felt to be cardiogenic in nature possible hypovolemia/intravascular depletion, patient has been receiving Lasix prior to admission at 80 mg twice a day and his Lasix was placed on hold up on his initial admission hence his blood pressure responded well and pressors were discontinued and the patient remains off pressors today Acute on chronic kidney injury, improving with improvement in blood pressure. This was felt to be acute tubular necrosis related. Secondary to hypotension Chronic anemia, suspect chronic iron deficiency anemia patient will receive iron infusions 6 ischemic cardiomyopathy and LV dysfunction with ejection fraction of 50-55% Underlying coronary artery disease and previous CABG with subsequent PCI in October 31 023 History of underlying COPD presently inactive Obstructive sleep apnea syndrome, on CPAP Ex-smoker. Recommendation: Continue present supportive care measures Will give the patient a small dose of Lasix 20 mg IV push 1 today. Continue oxygen and titrate accordingly Resume cardiac meds, including eliquis, and Plavix. Continue bronchodilators Transfer patient out of the ICU to a monitor bed on selective today. Continue to monitor renal status We'll continue to follow Time with Patient: Less than 30
--- NOTE | 2023-03-17 13:49 | P.PN ---
Subjective Progress Note Date: 03/17/23 History of present illness: This is a 67 year old male with past medical history of coronary artery disease status post bypass surgery, status post acute occlusion of the venous graft to the LAD, and aspiration thrombectomy, complicated by ventricular fibrillation in October, ischemic cardiomyopathy with severe LV dysfunction, chronic systolic heart failure with intravascular volume depletion and worsening renal failure. Patient presented due to hypotension dizziness lightheadedness and a fall. Josiane ent was found to be severely hypotensive. He is currently in the intensive care unit he is now off the Levophed and blood pressure is stable. He complains that he does not have any appetite. Lasix is on hold. Chest x-ray reveals scarring mainly with small right pleural effusion and mild central vascular congestion redemonstrated. Hemoglobin is 8, BUN 33 creatinine 2.23, sodium 136 and potassi um 4.3. Cortisol level IX. Blood pressure 100/60, heart rate in the 70s to 90s. Telemetry is sinus rhythm. Physical examination: Gen: This is a 67-year-old male. He is resting in ICU and appears to be comfortable and in no acute distress VS: reviewed HEENT: Head is atraumatic, normocephalic. Pupils equal, round. Sclerae is anicteric. LUNGS: Good air entry bilaterally. No intercostal retractions. HEART: Regular rate and rhythm. No murmur. ABDOMEN: Soft No tenderness. EXTREMITIES: 1+ pedal edema. NEUROLOGICAL: Patient is awake, alert and oriented x3. Assessment: Ischemic cardiomyopathy Elevated troponin secondary to renal failure Severe symptomatic hypotension secondary to volume depletion Chronic systolic heart failure Plan: Patient is off the Levophed, continue to monitor blood pressure closely Continue current medications Further recommendations to follow based upon clinical course Nurse practitioner note has been reviewed, I agree with documented findings and plan of care. Patient was seen and examined. Objective - Vital Signs Vital signs: Vital Signs Temp 98.4 F 03/17/23 12:00 Pulse 77 03/17/23 12:00 Resp 21 03/17/23 12:00 BP 100/60 03/17/23 12:00 Pulse Ox 89 L 03/17/23 10:00 FiO2 Intake & Output 03/16/23 03/17/23 03/17/23 18:59 06:59 18:59 Intake Total 2150 834.751 220 Output Total 2250 750 350 Balance -100 84.751 -130 Weight 106.7 kg Intake: IV 100 550 220 Sodium Chloride 0.9% 1, 100 550 220 000 ml @ 50 mls/hr IV . Q20H [facility] Rx#:[id number] Intake, IV Titration 600 44.751 Amount Norepinephrine 32 mg In 44.751 Sodium Chloride 0.9% 218 ml @ 0.03 MCG/KG/MIN 1. 403 mls/hr IV .Q24H [facility] Rx#:[id number] Sodium Chloride 0.9% 1, 600 000 ml @ 50 mls/hr IV . Q20H [facility] Rx#:[id number] Oral 1450 120 Blood Product 120 Output: Urine 2250 750 350 Other: Voiding Method Urinal # Voids 0 1 - Labs CBC & Chem 7: 03/17/23 06:15 03/17/23 06:15 Labs: Abnormal Lab Results - Last 24 Hours (Table) 03/16/23 03/17/23 03/17/23 Range/Units 06:01 06:15 06:15 RBC 2.85 L (4.30-5.90) m/uL Hgb 8.0 L (13.0-17.5) gm/dL Hct 25.0 L (39.0-53.0) % RDW 18.0 H (11.5-15.5) % Sodium 136 L (137-145) mmol/L Carbon Dioxide 21 L (22-30) mmol/L BUN 33 H (9-20) mg/dL Creatinine 2.23 H (0.66-1.25) mg/dL Glucose 111 H (74-99) mg/dL Iron 35 L (65-175) ug/dL TIBC 601 H (228-460) ug/dL % Saturation 5.88 L (15.00-50.00) Transferrin 429.0 H (204.0-354.0) mg/dL Microbiology - Last 24 Hours (Table) 03/15/23 22:05 Blood Culture - Preliminary Blood 03/15/23 22:20 Blood Culture - Preliminary Blood
[2023-03-17] MEDS: MORPHINE SULFATE 4 MG/ML SYRINGE IV PRN (15:01)
[2023-03-17] MEDS: NOREPINEPHRINE 32 MG in SODIUM CHLORIDE 0.9% 218 ML IV SCH (20:10)
[2023-03-17] MEDS: PATIENT'S OWN (Rosuvastatin 20 MG Tablet) PO SCH (20:10)
[2023-03-17] MEDS: CLOPIDOGREL 75 MG TAB PO SCH (20:10)
[2023-03-17] MEDS: ALPRAZolam 0.25 MG TAB PO SCH (20:10)
[2023-03-18 06:05] LABS: Anisocytosis Slight; HCT 26.7 % (39.0-53.0); HGB 8.4 gm/dL (13.0-17.5); Hypochromasia Marked; MCHC 31.5 g/dL (31.0-37.0); MCV 89.1 fL (80.0-100.0); Mean Platelet Volume 9.4; Platelet Count 180 k/uL (150-450); RBC 2.99 m/uL (4.30-5.90); WBC 6.5 k/uL (3.8-10.6)
[2023-03-18] MEDS: MORPHINE SULFATE 4 MG/ML SYRINGE IV PRN (06:10)
[2023-03-18 06:14] LABS: Calcium 9.2 mg/dL (8.4-10.2); Potassium 4.5 mmol/L (3.5-5.1)
[2023-03-18] MEDS: MIDODRINE 5 MG TAB PO SCH ×3 (06:40→16:28)
[2023-03-18] MEDS: FLUTICASONE 110 MCG INHALER INHALATION SCH ×2 (07:57→19:55)
[2023-03-18] MEDS: POTASSIUM CHLORIDE ER 20 MEQ TAB.ER PO SCH ×2 (08:47→20:13)
[2023-03-18] MEDS: SODIUM FERRIC GLUCONAT-SUCROSE 125 MG in SODIUM CHLORIDE 0.9% 100 ML IVPB SCH (08:51)
[2023-03-18] MEDS: APIXABAN 2.5 MG TABLET PO SCH ×2 (08:52→20:11)
[2023-03-18] MEDS: FAMOTIDINE 20 MG TAB PO SCH (08:52)
[2023-03-18] MEDS: EZETIMIBE 10 MG TAB PO SCH (08:52)
[2023-03-18] MEDS: ASPIRIN 81 MG PO SCH (08:52)
[2023-03-18] MEDS: FENOFIBRATE 160 MG TAB PO SCH (08:53)
[2023-03-18] MEDS: HYDROcodone/APAP 10-325MG 1 EACH TAB PO PRN ×3 (09:00→20:11)
[2023-03-18] MEDS: FLUTICASONE 50MCG/SPRAY NASAL 16GM EA NOSTRIL SCH ×2 (09:01→21:47)
[2023-03-18] MEDS ORDERED: FUROSEMIDE 10 MG/ML 2 ML VIAL IV STA (10:09)
--- NOTE | 2023-03-18 10:12 | P.PN ---
Subjective Patient is seen in follow-up for acute kidney injury. Renal function improving. Creatinine 1.54 today. Nonoliguric. Denies chest pain or shortness of breath. Blood pressure stable. Off vasopressors. Vital signs are stable. General: No acute distress. HEENT: Head exam is unremarkable. LUNGS: No audible rhonchi or wheezes. HEART: Rate and Rhythm are regular. ABDOMEN: Nontender, obese. EXTREMITITES: Trace edema. Objective - Vital Signs Vital signs: Vital Signs Temp 98.2 F 03/18/23 00:00 Pulse 98 03/18/23 08:00 Resp 28 H 03/18/23 08:00 BP 129/82 03/18/23 08:00 Pulse Ox 89 L 03/18/23 08:00 FiO2 Intake & Output 03/17/23 03/18/23 03/18/23 18:59 06:59 18:59 Intake Total 390 590 Output Total 1175 500 Balance -785 90 Weight 108 kg Intake: IV 390 0 Sodium Chloride 0.9% 1, 290 0 000 ml @ 50 mls/hr IV . Q20H [facility] Rx#:[id number] Sodium Ferric Gluconat- 100 Sucrose 125 mg In Sodium Chloride 0.9% 100 ml @ 100 mls/hr IVPB DAILY [facility] Rx#:[id number] Oral 590 Output: Urine 1175 500 Other: Voiding Method Urinal Bedside Commode Urinal # Voids 1 - Labs CBC & Chem 7: 03/18/23 05:57 03/18/23 05:57 Labs: Abnormal Lab Results - Last 24 Hours (Table) 03/18/23 03/18/23 Range/Units 05:57 05:57 RBC 2.99 L (4.30-5.90) m/uL Hgb 8.4 L (13.0-17.5) gm/dL Hct 26.7 L (39.0-53.0) % RDW 18.0 H (11.5-15.5) % BUN 21 H (9-20) mg/dL Creatinine 1.54 H (0.66-1.25) mg/dL Glucose 101 H (74-99) mg/dL Microbiology - Last 24 Hours (Table) 03/15/23 22:05 Blood Culture - Preliminary Blood 03/15/23 22:20 Blood Culture - Preliminary Blood Assessment and Plan Plan: Assessment: 1. Acute kidney injury secondary to ATN secondary to hypotension. Creatinine 4.07 on admission and is 1.54 today. Kidney ultrasound from December 2022 showed no evidence of hydronephrosis. UA benign. 2. Chronic kidney disease stage IIIa with creatinine as low as 1.2 one dated 01/23/2023. Etiology is nephrosclerosis. 3. Dizziness and fall possibly related to hypotension. 4. Chronic systolic CHF with ejection fraction of 30-35% with moderate mitral and tricuspid regurgitation. 5. Hyperkalemia secondary to acute kidney injury and potassium supplementation. Improved. 6. Hypovolemic hyponatremia, improved with IV hydration. 7. Anemia of chronic kidney disease. Iron deficiency noted. 8. Volume overload. Improved with lasix. Plan: Encourage oral intake. Received another dose of IV Lasix this morning. Cortisol level not low. Avoid nephrotoxins. Continue to monitor renal function and urine output. 1500 mL fluid restriction. Maintain IV iron. Maintain midodrine. Hold for systolic blood pressure greater than 110.
--- NOTE | 2023-03-18 11:13 | PN ---
PROGRESS NOTE SUBJECTIVE: Israel is a 67-year-old gentleman that is admitted to the hospital secondary to severe hypotension. He has multiple cardiac issues including CAD status post CABG, ventricular fibrillation and ischemic cardiomyopathy. He is feeling much better, hypertension had resolved, free of cardiac symptoms. OBJECTIVE: VITAL SIGNS: Heart rate is 90 beats per minute, blood pressure is 130/82, respiratory rate is 20, O2 saturation is 96% on 3 L. CHEST: Reveals good air entry bilaterally. HEART: Reveals first and second heart sounds. No gallop. ABDOMEN: Soft. MUSCULOSKELETAL: Exam of extremities reveals mild edema. Peripheral pulses are felt. LABORATORY DATA: Labs show a hemoglobin of 8.4, platelet count is 180, potassium is 4.5, creatinine is 1.5 that has improved compared to where we were on admission at 4. CURRENT MEDICATIONS: Include Eliquis 2.5 b.i.d., aspirin, Plavix 75 mg daily, Lofibra, Zetia and midodrine. I will restart the Toprol if the blood pressure remains stable. MMODL / IJN: [id number] /
--- NOTE | 2023-03-18 12:20 | P.PN ---
Subjective Progress Note Date: 03/18/23 Principal diagnosis: Acute on chronic hypoxic respiratory failure secondary to acute systolic congestive heart failure, ejection fraction of 30-35 per I am seeing this patient in new consultation today 03/16/2023 in the intensive care unit for hypotension. Patient is a 67-year-old white male with past medical history significant for coronary artery disease with past coronary artery bypass graft and subsequent PCI, ischemic cardiomyopathy with a baseline ejection fraction of 30-35%, hypertension, hyperlipidemia, osteoarthritis, mild COPD, obstructive sleep apnea without device, and is an ex-smoker. The patient is a poor historian despite being fully oriented. He has had multiple hospital readmissions since his most recent cardiac catheterization in October,. Ap parently, the patient went to [facility] 2 days ago with symptoms of dizziness. He did reportedly have a syncopal event while in the emergency room, and left AGAINST MEDICAL ADVICE. He does not have an obvious signs of head trauma. He then came to [facility]'s emergency room yesterday evening. He was found to be hypotensive and was fluid resuscitated with 1 L normal saline bolus and started on norepinephrine currently at 0.04 mics per kilogram per minute. Chest x-ray on arrival showed cardiomegaly, with mild to moderate pulmonary vascular congestion, and a small right pleural effusion. He was initially placed on 4 L nasal cannula in the emergency room. He is currently resting in bed, on 2L nasal cannula, in no acute distress. He denies any chest pain, heart palpitations, weight gain, lower extremity edema, orthopnea. He reports dizziness especially when standing. He has been taking multiple antihypertensives and Lasix on an outpatient basis. Denies any infectious symptoms. There is component of acute kidney injury on patient's BMP showing a creatinine of 4.07 and a BUN of 58. Normal saline is infusing at 100 ML's per hour. NT proBNP was elevated at 12,700. Troponins were also elevated and are trending down at 0.1 and 0.087 respectively. EKG on arrival shows no obvious acute ischemic changes. CBC on arrival showed a WBC count of 5.7, hemoglobin 8.2, hematocrit 25.5, platelets 174. BMP shows sodium 132, potassium 5.7, chloride 90, serum CO2 21, he went 58, creatinine 4.07, glucose 105. Patient will be monitored in the intensive care unit at least overnight. Reevaluated today on 03/17/2023, patient is feeling much better today, he is on 3 L nasal cannula, his renal functioning is improving, creatinine is down to 2.23 from 3.73 yesterday. Continues to have fair urine output, patient clinically feeling better his WBC count is 5.9 hemoglobin is 8 hematocrit is 25. Serum cortisol was 9 troponins 0.087, chest x-ray is showing small right-sided pleural effusion and mild congestive changes. Patient will receive 1 dose of Lasix 20 mg IV push 1, remains on fluid restriction at 1500 mL in 24 hours IV iron was added for his low hemoglobin and iron deficiency anemia Reevaluated today on 03/18/2023, patient is doing much better today, hardly any pulmonary symptoms still requiring few liters nasal cannula to maintain adequate O2 saturation creatinine is down to 1.54 today, patient is improving and not requiring any pressors blood pressure is stable urine output seems to be borderline, patient will be given a dose of Lasix today. WBC count is 6.5 hemoglobin is 8.4 electrolytes are normal BUN is 21 creatinine 1.54 Objective - Vital Signs Vital signs: Vital Signs Temp 98.4 F 03/18/23 11:18 Pulse 88 03/18/23 11:18 Resp 18 03/18/23 11:18 BP 111/56 03/18/23 11:18 Pulse Ox 93 L 03/18/23 11:18 FiO2 Intake & Output 03/17/23 03/18/23 03/18/23 18:59 06:59 18:59 Intake Total 390 590 Output Total 1175 500 775 Balance -785 90 -775 Weight 108 kg Intake: IV 390 0 Sodium Chloride 0.9% 1, 290 0 000 ml @ 50 mls/hr IV . Q20H ELIANA Rx#:[id number] Sodium Ferric Gluconat- 100 Sucrose 125 mg In Sodium Chloride 0.9% 100 ml @ 100 mls/hr IVPB DAILY ELIANA Rx#:[id number] Oral 590 Output: Urine 1175 500 775 Other: Voiding Method Urinal Bedside Commode Bedside Commode Urinal Urinal # Voids 1 - Exam Physical Exam: Revealed a 67-year-old white male pleasant in no distress on 4 L nasal cannula. Head: Atraumatic normocephalic. HEENT:: [No neck masses.] [No thyromegaly.] [No JVD.] Chest: Slightly diminished breath sounds at the right base with dullness. Left side is clear] Cardiac Exam: [Normal S1 and S2, no S3 gallop, no murmur.] Abdomen: [Soft, nontender, no megaly, no rebound, no guarding, normal bowel sounds.] Extremities: [No clubbing, 1+ bipedal edema, no cyanosis.] Neurological Exam: [No focal neurologic deficit.] Alert and oriented 3. Psychiatric: Normal mood affect and normal mental status examination. Skin: No rashes. - Labs CBC & Chem 7: 03/18/23 05:57 03/18/23 05:57 Labs: Abnormal Lab Results - Last 24 Hours (Table) 03/18/23 03/18/23 Range/Units 05:57 05:57 RBC 2.99 L (4.30-5.90) m/uL Hgb 8.4 L (13.0-17.5) gm/dL Hct 26.7 L (39.0-53.0) % RDW 18.0 H (11.5-15.5) % BUN 21 H (9-20) mg/dL Creatinine 1.54 H (0.66-1.25) mg/dL Glucose 101 H (74-99) mg/dL Microbiology - Last 24 Hours (Table) 03/15/23 22:05 Blood Culture - Preliminary Blood 03/15/23 22:20 Blood Culture - Preliminary Blood Assessment and Plan Assessment: Impression: Acute on chronic hypoxic respiratory failure secondary to acute systolic congestive heart failure, ejection fraction 30-35%. Right-sided pleural effusion, cardiogenic in nature. Hypotension, requiring pressors upon presentation felt to be cardiogenic in nature possible hypovolemia/intravascular depletion, patient has been receiving Lasix prior to admission at 80 mg twice a day and his Lasix was placed on hold up on his initial admission hence his blood pressure responded well and pressors were discontinued and the patient remains off pressors today Acute on chronic kidney injury, improving with improvement in blood pressure. T his was felt to be acute tubular necrosis related. Secondary to hypotension Chronic anemia, suspect chronic iron deficiency anemia patient will receive iron infusions 6 ischemic cardiomyopathy and LV dysfunction with ejection fraction of 50-55% Underlying coronary artery disease and previous CABG with subsequent PCI in October 31 023 History of underlying COPD presently inactive Obstructive sleep apnea syndrome, on CPAP Ex-smoker. Recommendation: Will transfer patient out of the ICU to a monitor bed on the floor. Continue present supportive care measures Another dose of Lasix 20 mg IV push will be given today. Continue oxygen and titrate accordingly Resume cardiac meds, including eliquis, and Plavix. Continue bronchodilators Continue to monitor renal status We'll continue to follow Time with Patient: Less than 30
[2023-03-18] MEDS: ALPRAZolam 0.25 MG TAB PO SCH (20:11)
[2023-03-18] MEDS: CLOPIDOGREL 75 MG TAB PO SCH (20:11)
[2023-03-18] MEDS: PATIENT'S OWN (Rosuvastatin 20 MG Tablet) PO SCH (20:13)
[2023-03-19] MEDS: HYDROcodone/APAP 10-325MG 1 EACH TAB PO PRN ×4 (05:16→21:47)
[2023-03-19] MEDS: ALPRAZolam 1 MG TAB PO PRN (06:54)
[2023-03-19] MEDS: FAMOTIDINE 20 MG TAB PO SCH (07:58)
[2023-03-19] MEDS: APIXABAN 2.5 MG TABLET PO SCH ×2 (07:58→20:22)
[2023-03-19] MEDS: FENOFIBRATE 160 MG TAB PO SCH (07:58)
[2023-03-19] MEDS: ASPIRIN 81 MG PO SCH (07:58)
[2023-03-19] MEDS: EZETIMIBE 10 MG TAB PO SCH (07:58)
[2023-03-19] MEDS: MIDODRINE 5 MG TAB PO SCH ×3 (08:00→16:35)
[2023-03-19] MEDS: FLUTICASONE 50MCG/SPRAY NASAL 16GM EA NOSTRIL SCH ×2 (08:01→20:22)
[2023-03-19] MEDS: SODIUM FERRIC GLUCONAT-SUCROSE 125 MG in SODIUM CHLORIDE 0.9% 100 ML IVPB SCH (08:59)
[2023-03-19] MEDS: FLUTICASONE 110 MCG INHALER INHALATION SCH ×2 (09:04→20:38)
--- NOTE | 2023-03-19 11:02 | P.PN ---
Subjective Progress Note Date: 03/19/23 I am seeing this patient in new consultation today 03/16/2023 in the intensive care unit for hypotension. Patient is a 67-year-old white male with past medical history significant for coronary artery disease with past coronary artery bypass graft and subsequent PCI, ischemic cardiomyopathy with a baseline ejection fraction of 30-35%, hypertension, hyperlipidemia, osteoarthritis, mild COPD, obstructive sleep apnea without device, and is an ex-smoker. The patient is a poor historian despite being fully oriented. He has had multiple hospital readmissions since his most recent cardiac catheterization in October,. Apparently, the patient went to [facility] [place] 2 days ago with symptoms of di zziness. He did reportedly have a syncopal event while in the emergency room, and left AGAINST MEDICAL ADVICE. He does not have an obvious signs of head trauma. He then came to [facility]'s emergency room yesterday evening. He was found to be hypotensive and was fluid resuscitated with 1 L normal saline bolus and started on norepinephrine currently at 0.04 mics per kilogram per minute. Chest x-ray on arrival showed cardiomegaly, with mild to moderate pulmonary vascular congestion, and a small right pleural effusion. He was initially placed on 4 L nasal cannula in the emergency room. He is currently resting in bed, on 2L nasal cannula, in no acute distress. He denies any chest pain, heart palpitations, weight gain, lower extremity edema, orthopnea. He reports dizziness especially when standing. He has been taking multiple antihypertensives and Lasix on an outpatient basis. Denies any infectious symptoms. There is component of acute kidney injury on patient's BMP showing a creatinine of 4.07 and a BUN of 58. Normal saline is infusing at 100 ML's per hour. NT proBNP was elevated at 12,700. Troponins were also elevated and are trending down at 0.1 and 0.087 respectively. EKG on arrival shows no obvious acute ischemic changes. CBC on arrival showed a WBC count of 5.7, hemoglobin 8.2, hematocrit 25.5, platelets 174. BMP shows sodium 132, potassium 5.7, chloride 90, serum CO2 21, he went 58, creatinine 4.07, glucose 105. Patient will be monitored in the intensive care unit at least overnight. Reevaluated today on 03/17/2023, patient is feeling much better today, he is on 3 L nasal cannula, his renal functioning is improving, creatinine is down to 2.23 from 3.73 yesterday. Continues to have fair urine output, patient clinically feeling better his WBC count is 5.9 hemoglobin is 8 hematocrit is 25. Serum cortisol was 9 troponins 0.087, chest x-ray is showing small right-sided pleural effusion and mild congestive changes. Patient will receive 1 dose of Lasix 20 mg IV push 1, remains on fluid restriction at 1500 mL in 24 hours IV iron was added for his low hemoglobin and iron deficiency anemia Reevaluated today on 03/18/2023, patient is doing much better today, hardly any pulmonary symptoms still requiring few liters nasal cannula to maintain adequate O2 saturation creatinine is down to 1.54 today, patient is improving and not requiring any pressors blood pressure is stable urine output seems to be borderline, patient will be given a dose of Lasix today. WBC count is 6.5 hemoglobin is 8.4 electrolytes are normal BUN is 21 creatinine 1.54. The patient is seen today 03/19/2023 in follow-up on the regular medical floor. He is currently resting quite comfortably in bed. Awake and alert in no acute distress. Denies any worsening shortness of breath, cough or congestion. Maintaining good O2 saturations in the mid 90s on 4 L nasal cannula which is his home level. He is afebrile. Hemodynamically stable. Blood cultures revealed no growth. No new labs today. He remains on DuoNeb inhalations, Flovent. Objective - Vital Signs Vital signs: Vital Signs Temp 98.1 F 03/19/23 01:48 Pulse 90 03/19/23 07:13 Resp 18 03/19/23 07:13 BP 92/55 03/19/23 07:13 Pulse Ox 96 03/19/23 09:02 FiO2 Intake & Output 03/18/23 03/19/23 03/19/23 18:59 06:59 18:59 Intake Total 240 Output Total 1075 400 Balance -1075 -160 Intake: Oral 240 Output: Urine 1075 400 Other: Voiding Method Bedside Commode Bedside Commode Urinal Urinal - Exam GENERAL EXAM: Alert, active 67-year-old male patient, on 4 L nasal cannula, comfortable in no apparent distress. HEAD: Normocephalic. EYES: Normal reaction of pupils, equal size. NOSE: Clear with pink turbinates. THROAT: No erythema or exudates. NECK: No masses, no JVD. CHEST: No chest wall deformity. LUNGS: Equal air entry with crackles in the right lung base. CVS: S1 and S2 normal with no audible murmur, regular rhythm. ABDOMEN: No hepatosplenomegaly, normal bowel sounds, no guarding or rigidity. SPINE: No scoliosis or deformity SKIN: No rashes CENTRAL NERVOUS SYSTEM: No focal deficits, tone is normal in all 4 extremities. EXTREMITIES: There is 1+ peripheral edema. No clubbing, no cyanosis. Peripheral pulses are intact. - Labs CBC & Chem 7: 03/18/23 05:57 03/18/23 05:57 Labs: Microbiology - Last 24 Hours (Table) 03/15/23 22:20 Blood Culture - Preliminary Blood 03/15/23 22:05 Blood Culture - Preliminary Blood Assessment and Plan Assessment: Acute on chronic hypoxic respiratory failure secondary to acute systolic congestive heart failure, ejection fraction 30-35%. Right-sided pleural effusion, cardiogenic in nature. Hypotension, requiring pressors upon presentation felt to be cardiogenic in nature possible hypovolemia/intravascular depletion, patient has been receiving Lasix prior to admission at 80 mg twice a day and his Lasix was placed on hold up on his initial admission hence his blood pressure responded well and pressors were discontinued and the patient remains off pressors Acute on chronic kidney injury, improving with improvement in blood pressure. This was felt to be acute tubular necrosis related. Secondary to hypotension Chronic anemia, suspect chronic iron deficiency anemia patient will receive iron infusions Ischemic cardiomyopathy and LV dysfunction with ejection fraction of 50-55% Underlying coronary artery disease and previous CABG with subsequent PCI in October 2022 History of underlying COPD presently inactive Obstructive sleep apnea syndrome, on CPAP Former smoker Thank you: The patient was seen and evaluated Medications are reviewed Stable from the pulmonary standpoint Home once cleared by cardiology Continue his home pulmonary medications Continue his home oxygen Follow-up in the office in 1 week I have personally seen and examined the patient, performed the documentation and the assessment and plan as written. Number of minutes spent on the visit: 10.
[2023-03-19] MEDS: POTASSIUM CHLORIDE ER 20 MEQ TAB.ER PO SCH ×2 (11:37→20:25)
--- NOTE | 2023-03-19 12:04 | P.PN ---
Subjective Patient is seen in follow-up for acute kidney injury. Renal function improving. Creatinine 1.54 yesterday. Nonoliguric. Denies chest pain or shortness of breath. Blood pressure stable. No active complaints. Vital signs are stable. General: No acute distress. HEENT: Head exam is unremarkable. LUNGS: No audible rhonchi or wheezes. HEART: Rate and Rhythm are regular. ABDOMEN: Nontender, obese. EXTREMITITES: Trace edema. Objective - Vital Signs Vital signs: Vital Signs Temp 98.1 F 03/19/23 01:48 Pulse 90 03/19/23 07:13 Resp 18 03/19/23 07:13 BP 92/55 03/19/23 07:13 Pulse Ox 96 03/19/23 09:02 FiO2 Intake & Output 03/18/23 03/19/23 03/19/23 18:59 06:59 18:59 Intake Total 240 Output Total 1075 400 Balance -1075 -160 Intake: Oral 240 Output: Urine 1075 400 Other: Voiding Method Bedside Commode Bedside Commode Urinal Urinal - Labs CBC & Chem 7: 03/18/23 05:57 03/18/23 05:57 Labs: Microbiology - Last 24 Hours (Table) 03/15/23 22:20 Blood Culture - Preliminary Blood 03/15/23 22:05 Blood Culture - Preliminary Blood Assessment and Plan Plan: Assessment: 1. Acute kidney injury secondary to ATN secondary to hypotension. Creatinine 4.07 on admission - 1.54 yesterday. Kidney ultrasound from December 2022 showed no evidence of hydronephrosis. UA benign. 2. Chronic kidney disease stage IIIa with creatinine as low as 1.2 one dated 01/23/2023. Etiology is nephrosclerosis. 3. Dizziness and fall possibly related to hypotension. 4. Chronic systolic CHF with ejection fraction of 30-35% with moderate mitral and tricuspid regurgitation. 5. Hyperkalemia secondary to acute kidney injury and potassium supplementation. Improved. 6. Hypovolemic hyponatremia, improved with IV hydration. 7. Anemia of chronic kidney disease. Iron deficiency noted. 8. Volume overload. Improved with lasix. Plan: Encourage oral intake. Add oral Lasix 20 mg once daily. Cortisol level not low. Avoid nephrotoxins. Continue to monitor renal function and urine output. Maintain IV iron. Maintain midodrine. Hold for systolic blood pressure greater than 110. I advised patient to maintain fluid restriction of less than 50 ounces per day.
[2023-03-19] MEDS: FUROSEMIDE 20 MG TAB PO SCH (13:09)
--- NOTE | 2023-03-19 13:34 | PN ---
PROGRESS NOTE SUBJECTIVE: [place] is a 67-year-old gentleman who has admitted to hospital with symptomatic hypotension and has complex cardiac history including coronary artery disease, ischemic cardiomyopathy, and bypass surgery. He is doing much better now. OBJECTIVE: VITAL SIGNS: Hypotension had resolved. Blood pressures are around 90 to 110 mmHg over 55 to 69. NECK: There is no jugular venous distention. CHEST: Reveals good air entry bilaterally. HEART: Reveals first and second heart sounds. No gallop. MUSCULOSKELETAL: Exam of extremities reveals mild edema. LABORATORY DATA: The patient's hemoglobin is 8.4, platelet count is 180. BUN is 21 and creatinine is 1.5. There is an improvement from 52 and 3.7 three days ago. ASSESSMENT: Ischemic cardiomyopathy, coronary artery disease status post coronary artery bypass grafting, symptomatic hypotension with renal insufficiency. PLAN: From cardiac standpoint, the patient is stable for discharge. Continue the midodrine. Continue rest of his medications. Resume Lasix after the patient is re-evaluated in the outpatient setting over the next several days. MMODL / IJN: [id number] /
[2023-03-19 14:03] LABS: African American GFR (CKD) 63 (>60 ml/min/1.73 sqM); Anion Gap 10 mmol/L; Blood Urea Nitrogen 14 mg/dL (9-20); Calcium 9.2 mg/dL (8.4-10.2); Carbon Dioxide 24 mmol/L (22-30); Chloride 104 mmol/L (98-107); Glucose 95 mg/dL (74-99); Magnesium 2.1 mg/dL (1.6-2.3); Non-African American GFR(CKD) 55 (>60 ml/min/1.73 sqM); Potassium 4.2 mmol/L (3.5-5.1); Sodium 138 mmol/L (137-145)
[2023-03-19] MEDS: CLOPIDOGREL 75 MG TAB PO SCH (20:22)
[2023-03-19] MEDS: ALPRAZolam 0.25 MG TAB PO SCH (20:22)
[2023-03-19] MEDS: PATIENT'S OWN (Rosuvastatin 20 MG Tablet) PO SCH (20:26)
[2023-03-20] MEDS: HYDROcodone/APAP 10-325MG 1 EACH TAB PO PRN ×2 (03:17→12:25)
[2023-03-20] MEDS: ALPRAZolam 1 MG TAB PO PRN (03:19)
[2023-03-20] MEDS: MIDODRINE 5 MG TAB PO SCH ×2 (08:09→12:26)
[2023-03-20] MEDS: APIXABAN 2.5 MG TABLET PO SCH (08:09)
[2023-03-20] MEDS: FENOFIBRATE 160 MG TAB PO SCH (08:10)
[2023-03-20] MEDS: POTASSIUM CHLORIDE ER 20 MEQ TAB.ER PO SCH (08:10)
[2023-03-20] MEDS: ASPIRIN 81 MG PO SCH (08:10)
[2023-03-20] MEDS: EZETIMIBE 10 MG TAB PO SCH (08:10)
[2023-03-20] MEDS: SODIUM FERRIC GLUCONAT-SUCROSE 125 MG in SODIUM CHLORIDE 0.9% 100 ML IVPB SCH (08:10)
[2023-03-20] MEDS: FUROSEMIDE 20 MG TAB PO SCH (08:10)
[2023-03-20] MEDS: FAMOTIDINE 20 MG TAB PO SCH (08:10)
[2023-03-20] MEDS: FLUTICASONE 50MCG/SPRAY NASAL 16GM EA NOSTRIL SCH (08:11)
[2023-03-20] MEDS: FLUTICASONE 110 MCG INHALER INHALATION SCH (09:05)
[2023-03-20 09:15] LABS: African American GFR (CKD) 60.7 (60.0-200.0); Anion Gap 12.3 mmol/L (10.00-18.00); BUN/Creat Ratio 9.5 Ratio (12.00-20.00); Blood Urea Nitrogen 13.3 mg/dL (9.0-27.0); Calcium 9.4 mg/dL (8.7-10.3); Carbon Dioxide 21.7 mmol/L (20.0-27.5); Magnesium 2.1 mg/dL (1.5-2.4); Non-African American GFR(CKD) 52.4 (60.0-200.0); Potassium 4.1 mmol/L (3.5-5.5)
--- NOTE | 2023-03-20 11:56 | P.PN ---
Subjective Progress Note Date: 03/20/23 I am seeing this patient in new consultation today 03/16/2023 in the intensive care unit for hypotension. Patient is a 67-year-old white male with past medical history significant for coronary artery disease with past coronary artery bypass graft and subsequent PCI, ischemic cardiomyopathy with a baseline ejection fraction of 30-35%, hypertension, hyperlipidemia, osteoarthritis, mild COPD, obstructive sleep apnea without device, and is an ex-smoker. The patient is a poor historian despite being fully oriented. He has had multiple hospital readmissions since his most recent cardiac catheterization in October,. Apparently, the patient went to [facility] 2 days ago with symptoms of di zziness. He did reportedly have a syncopal event while in the emergency room, and left AGAINST MEDICAL ADVICE. He does not have an obvious signs of head trauma. He then came to [facility]'s emergency room yesterday evening. He was found to be hypotensive and was fluid resuscitated with 1 L normal saline bolus and started on norepinephrine currently at 0.04 mics per kilogram per minute. Chest x-ray on arrival showed cardiomegaly, with mild to moderate pulmonary vascular congestion, and a small right pleural effusion. He was initially placed on 4 L nasal cannula in the emergency room. He is currently resting in bed, on 2L nasal cannula, in no acute distress. He denies any chest pain, heart palpitations, weight gain, lower extremity edema, orthopnea. He reports dizziness especially when standing. He has been taking multiple antihypertensives and Lasix on an outpatient basis. Denies any infectious symptoms. There is component of acute kidney injury on patient's BMP showing a creatinine of 4.07 and a BUN of 58. Normal saline is infusing at 100 ML's per hour. NT proBNP was elevated at 12,700. Troponins were also elevated and are trending down at 0.1 and 0.087 respectively. EKG on arrival shows no obvious acute ischemic changes. CBC on arrival showed a WBC count of 5.7, hemoglobin 8.2, hematocrit 25.5, platelets 174. BMP shows sodium 132, potassium 5.7, chloride 90, serum CO2 21, he went 58, creatinine 4.07, glucose 105. Patient will be monitored in the intensive care unit at least overnight. Reevaluated today on 03/17/2023, patient is feeling much better today, he is on 3 L nasal cannula, his renal functioning is improving, creatinine is down to 2.23 from 3.73 yesterday. Continues to have fair urine output, patient clinically feeling better his WBC count is 5.9 hemoglobin is 8 hematocrit is 25. Serum cortisol was 9 troponins 0.087, chest x-ray is showing small right-sided pleural effusion and mild congestive changes. Patient will receive 1 dose of Lasix 20 mg IV push 1, remains on fluid restriction at 1500 mL in 24 hours IV iron was added for his low hemoglobin and iron deficiency anemia Reevaluated today on 03/18/2023, patient is doing much better today, hardly any pulmonary symptoms still requiring few liters nasal cannula to maintain adequate O2 saturation creatinine is down to 1.54 today, patient is improving and not requiring any pressors blood pressure is stable urine output seems to be borderline, patient will be given a dose of Lasix today. WBC count is 6.5 hemoglobin is 8.4 electrolytes are normal BUN is 21 creatinine 1.54. The patient is seen today 03/19/2023 in follow-up on the regular medical floor. He is currently resting quite comfortably in bed. Awake and alert in no acute distress. Denies any worsening shortness of breath, cough or congestion. Maintaining good O2 saturations in the mid 90s on 4 L nasal cannula which is his home level. He is afebrile. Hemodynamically stable. Blood cultures revealed no growth. No new labs today. He remains on DuoNeb inhalations, Flovent. The patient is seen today 03/20/2023 in follow-up on the regular medical floor. He is currently resting comfortably in bed. No acute distress. Maintaining O2 saturations in the mid 90s on 3 L/m per nasal cannula. Afebrile. H emodynamically stable. Blood cultures revealed no growth. Sodium 136. Potassium 4.1. Bicarb 22. BUN 13. Creatinine 1.4. Glucose 84. He remains anticoagulated with Eliquis. Continued on bronchodilators. Objective - Vital Signs Vital signs: Vital Signs Temp 98.0 F 03/20/23 07:35 Pulse 82 03/20/23 07:35 Resp 19 03/20/23 07:35 BP 96/55 03/20/23 07:35 Pulse Ox 95 03/20/23 08:52 FiO2 Intake & Output 03/19/23 03/20/23 03/20/23 18:59 06:59 18:59 Intake Total 1260 Balance 1260 Weight 104.5 kg Intake: Oral 1260 Other: Voiding Method Toilet Toilet Urinal Urinal # Voids 6 1 - Exam GENERAL EXAM: Alert, pleasant 67-year-old male patient, on 3 L nasal cannula, comfortable in no apparent distress. HEAD: Normocephalic. EYES: Normal reaction of pupils, equal size. NOSE: Clear with pink turbinates. THROAT: No erythema or exudates. NECK: No masses, no JVD. CHEST: No chest wall deformity. LUNGS: Equal air entry with crackles in the right lung base. CVS: S1 and S2 normal with no audible murmur, regular rhythm. ABDOMEN: No hepatosplenomegaly, normal bowel sounds, no guarding or rigidity. SPINE: No scoliosis or deformity SKIN: No rashes CENTRAL NERVOUS SYSTEM: No focal deficits, tone is normal in all 4 extremities. EXTREMITIES: There is 1+ peripheral edema. No clubbing, no cyanosis. Peripheral pulses are intact. - Labs CBC & Chem 7: 03/18/23 05:57 03/20/23 05:12 Labs: Abnormal Lab Results - Last 24 Hours (Table) 03/19/23 03/20/23 Range/Units 13:24 05:12 Creatinine 1.35 H (0.66-1.25) mg/dL Est GFR (CKD-EPI)NonAf 52.4 L (60.0-200.0) BUN/Creatinine Ratio 9.50 L (12.00-20.00) Ratio Microbiology - Last 24 Hours (Table) 03/15/23 22:20 Blood Culture - Preliminary Blood 03/15/23 22:05 Blood Culture - Preliminary Blood Assessment and Plan Assessment: Acute on chronic hypoxic respiratory failure secondary to acute systolic c ongestive heart failure, ejection fraction 30-35%. Stable and on 3 L nasal cannula. Remains in a negative balance Right-sided pleural effusion, cardiogenic in nature. Small, no need for thoracentesis Hypotension, requiring pressors upon presentation felt to be cardiogenic in nature possible hypovolemia/intravascular depletion, patient has been receiving Lasix prior to admission at 80 mg twice a day and his Lasix was placed on hold up on his initial admission hence his blood pressure responded well and pressors were discontinued and the patient remains off pressors Acute on chronic kidney injury, improving with improvement in blood pressure. This was felt to be acute tubular necrosis related. Secondary to hypotension Chronic anemia, suspect chronic iron deficiency anemia patient will receive iron infusions Ischemic cardiomyopathy and LV dysfunction with ejection fraction of 50-55% Underlying coronary artery disease and previous CABG with subsequent PCI in October 2022 History of underlying COPD presently inactive Obstructive sleep apnea syndrome, on CPAP Former smoker Plan: The patient was seen and evaluated Medications and labs are reviewed Stable from the pulmonary standpoint Continue his home pulmonary medications Continue his home oxygen Follow-up in the office in 1 week I have personally seen and examined the patient, performed the documentation and the assessment and plan as written. Number of minutes spent on the visit: 10.
--- NOTE | 2023-03-20 12:40 | P.PN ---
Subjective Patient is seen in follow-up for acute kidney injury. Renal function improving. Creatinine 1.4 today. Nonoliguric. Denies chest pain or shortness of breath. Blood pressure stable. No active complaints. Maintained on low-dose oral loop diuretics Objective - Vital Signs Vital signs: Vital Signs Temp 98.0 F 03/20/23 07:35 Pulse 82 03/20/23 07:35 Resp 19 03/20/23 07:35 BP 96/55 03/20/23 07:35 Pulse Ox 95 03/20/23 08:52 FiO2 Intake & Output 03/19/23 03/20/23 03/20/23 18:59 06:59 18:59 Intake Total 1260 Balance 1260 Weight 104.5 kg Intake: Oral 1260 Other: Voiding Method Toilet Toilet Urinal Urinal # Voids 6 1 - Exam Patient is awake, comfortable, no acute distress Examination of the heart S1 and S2 Examination of the lungs bilateral breath sounds are heard Abdomen is soft nontender Examination of the lower extremities shows 1+ edema bilaterally MENTAL HEALTH SPECIALIST exam grossly intact - Labs CBC & Chem 7: 03/18/23 05:57 03/20/23 05:12 Labs: Abnormal Lab Results - Last 24 Hours (Table) 03/19/23 03/20/23 Range/Units 13:24 05:12 Creatinine 1.35 H (0.66-1.25) mg/dL Est GFR (CKD-EPI)NonAf 52.4 L (60.0-200.0) BUN/Creatinine Ratio 9.50 L (12.00-20.00) Ratio Microbiology - Last 24 Hours (Table) 03/15/23 22:20 Blood Culture - Preliminary Blood 03/15/23 22:05 Blood Culture - Preliminary Blood Assessment and Plan Assessment: 1. Acute kidney injury secondary to ATN secondary to hypotension. Creatinine 4.07 on admission - 1.4 today. Kidney ultrasound from December 2022 showed no evidence of hydronephrosis. UA benign. 2. Chronic kidney disease stage IIIa with creatinine as low as 1.2 one dated 01/23/2023. Etiology is nephrosclerosis. 3. Dizziness and fall possibly related to hypotension. 4. Chronic systolic CHF with ejection fraction of 30-35% with moderate mitral and tricuspid regurgitation. 5. Hyperkalemia secondary to acute kidney injury and potassium supplementation. Improved. 6. Hypovolemic hyponatremia, improved with IV hydration. 7. Anemia of chronic kidney disease. Iron deficiency noted. 8. Volume overload. Improved, maintained on lasix. Plan: Continue with low-dose loop diuretics To monitor labs as outpatient Maintain salt and fluid restriction
[2023-03-20 15:55] VITALS: BP 117/72; PULSE 85; RESP 18; TEMP 97.9
--- NOTE | 2023-03-20 20:50 | DS ---
DISCHARGE SUMMARY CHIEF COMPLAINT: Hypotension. HISTORY OF PRESENT ILLNESS AND PHYSICAL EXAM: Details of this man's history and physical can be found in the initial workup. LABORATORY STUDIES: While he was in the hospital, he had laboratory studies, details of which can be found in the laboratory section of his chart. COURSE IN THE HOSPITAL: After admission, he was placed on bedrest, started on intravenous fluids and he was rehydrated. He was seen by Cardiology. No further intervention was indicated. He had no further problems with angina or symptoms of heart failure. His medications were adjusted and it was felt he could go home on the and he will be followed up in several days. FINAL DIAGNOSES: 1. Hypotension. 2. Advanced coronary artery disease. 3. Atherosclerotic cardiomyopathy. 4. Heart failure with reduced ejection fraction. 5. Chronic kidney disease. 6. Dehydration. 7. Chronic obstructive pulmonary disease. 8. Hyperlipidemia. OPERATIONS: None. CONSULTATIONS: Cardiology. He is improved. MMDEYANIRA / NATHALYN: [id number] /
--- NOTE | 2023-03-20 22:53 | PN ---
PROGRESS NOTE DATE OF SERVICE: 03/18/2023 CHIEF COMPLAINT: Hypotension and heart failure. HISTORY OF PRESENT ILLNESS: This gentleman is feeling a little bit better. He is not having any shortness of breath or chest pain. Renal function has deteriorated with a BUN of 52 and a creatinine of 3.73. PHYSICAL EXAMINATION: VITAL SIGNS: Normal. CHEST: Clear. CARDIAC: Normal. ABDOMEN: Soft and nontender. IMPRESSION: 1. Hypotension. 2. Coronary artery disease. 3. Congestive heart failure. 4. Chronic kidney disease with prerenal component. PLAN: Continue with IV fluids and increase activity. MMODL / IJN: [id number] /
--- NOTE | 2023-03-21 06:29 | PN ---
PROGRESS NOTE DATE OF SERVICE: 03/19/2023 CHIEF COMPLAINT: Hypotension, congestive heart failure, CAD and cardiomyopathy. HISTORY OF PRESENT ILLNESS: This gentleman seems to be doing a little bit better. His blood pressure is improved. He has been having no further problems with chest pain or shortness of breath. PHYSICAL EXAMINATION: CHEST: Demonstrates rales at the bases posteriorly. CARDIAC: Normal. ABDOMEN: Soft and nontender. IMPRESSION: 1. Congestive heart failure, acute and chronic. 2. Cardiomyopathy. 3. Hypotension. 4. Chronic obstructive pulmonary disease. PLAN: Increase activity. He can probably go home in the next day or 2 if he remains stable. MMODL / IJN: [id number] /
--- NOTE | 2023-03-21 07:22 | PN ---
PROGRESS NOTE DATE OF SERVICE: 03/17/2023 CHIEF COMPLAINT: Dizziness, hypotension, congestive heart failure and CAD. HISTORY OF PRESENT ILLNESS: This gentleman's blood pressure has improved. He is not nearly as dizzy and he has not experienced any chest pain. He has had no shortness of breath. PHYSICAL EXAMINATION: GENERAL: Color is good. VITAL SIGNS: Normal. His systolic blood pressure is over 100. CHEST: Demonstrates scattered rales. CARDIAC: Unchanged with an S3 and S4. ABDOMEN: Soft, nontender. IMPRESSION: 1. Hypotension. 2. Dehydration. 3. HFpEF. 4. Atherosclerotic cardiomyopathy. 5. Chronic obstructive pulmonary disease. PLAN: Continue with IV fluids and rehydration. MMODL / IJN: [id number] /
== END 2023-03-20 16:25 | disposition home health service (06) | DRG 314 ==
LOC: EC 19:00 → 2SICU 23:00 → 4SSUR 03-18 11:48
PROVIDERS: ADMIT Family Medicine; ATTEND Family Medicine
PROC: 3E043XZ Introduction of Vasopressor into Central Vein, Percutaneous Approach (ICD-10-PCS; principal; 2023-03-15)
PROC: 02HV33Z Insertion of Infusion Device into Superior Vena Cava, Percutaneous Approach (ICD-10-PCS; principal; 2023-03-15)
DX: I95.9 Hypotension, unspecified (principal); I50.23 Acute on chronic systolic (congestive) heart failure; N17.0 Acute kidney failure with tubular necrosis; J96.21 Acute and chronic respiratory failure with hypoxia; I13.0 Hypertensive heart and chronic kidney disease with heart failure and stage 1 through stage 4 chronic kidney disease, or unspecified chronic kidney disease; E87.1 Hypo-osmolality and hyponatremia; D63.1 Anemia in chronic kidney disease; N18.31 Chronic kidney disease, stage 3a; J44.9 Chronic obstructive pulmonary disease, unspecified; M19.90 Unspecified osteoarthritis, unspecified site; I25.5 Ischemic cardiomyopathy; E87.5 Hyperkalemia; E86.1 Hypovolemia; E86.0 Dehydration; E78.5 Hyperlipidemia, unspecified; D50.9 Iron deficiency anemia, unspecified; I25.10 Atherosclerotic heart disease of native coronary artery without angina pectoris; G89.29 Other chronic pain; M54.9 Dorsalgia, unspecified; I25.2 Old myocardial infarction; I08.1 Rheumatic disorders of both mitral and tricuspid valves; G47.33 Obstructive sleep apnea (adult) (pediatric); F41.9 Anxiety disorder, unspecified; F32.A Depression, unspecified; K21.9 Gastro-esophageal reflux disease without esophagitis; K44.9 Diaphragmatic hernia without obstruction or gangrene; M21.372 Foot drop, left foot; R26.2 Difficulty in walking, not elsewhere classified; F43.10 Post-traumatic stress disorder, unspecified; R77.8 Other specified abnormalities of plasma proteins; Z79.01 Long term (current) use of anticoagulants; Z79.02 Long term (current) use of antithrombotics/antiplatelets; Z79.82 Long term (current) use of aspirin; Z79.899 Other long term (current) drug therapy; Z87.891 Personal history of nicotine dependence; Z95.1 Presence of aortocoronary bypass graft; Z95.5 Presence of coronary angioplasty implant and graft; W19.XXXA Unspecified fall, initial encounter; Z88.8 Allergy status to other drugs, medicaments and biological substances; Z91.040 Latex allergy status; Z82.49 Family history of ischemic heart disease and other diseases of the circulatory system
CPT/HCPCS: 36415; 71045; 71046; 78582; 80048; 80053; 81003; 82533; 82728; 83540; 83550; 83605; 83735; 83880; 84484; 85025; 85027; 85610; 85730; 87040; 93005; 94640; 94760; 96361; 96365; 96368; 99285

== ENCOUNTER 2023-05-11 16:13 | Emergency (ER) | payer MEDICARE, OTHER ==
[2023-05-11 16:31] VITALS: PULSE 86; RESP 18
--- NOTE | 2023-05-11 17:45 | ED ---
General Adult HPI - General Chief complaint: Extremity Injury, Lower Stated complaint: Lt knee pain Time Seen by Provider: 05/11/23 17:05 Source: patient, RN notes reviewed Mode of arrival: ambulatory Limitations: no limitations - History of Present Illness Initial comments: 68-year-old male presents emergency department chief complaint of left knee pain and swelling x2 days. The pain is above his left kneecap according to the patient. Patient states that the pain is worse with movement but he is able to walk on it. He states that he has had bursitis in the past which needed to be drained by Dr. Hoff his orthopedist. He had a scope of his knee about 3 months ago and states that his orthopedic physician who recommends replacement but he is not able to at this time. Patient denies fever, chills, nausea, vomiting, redness to the knee. - Related Data Home Medications Medication Instructions Recorded Confirmed HYDROcodone/APAP 10-325MG [[place] 1 tab PO QID PRN 02/22/15 03/15/23 10-325] rOPINIRole HCL [Requip] 0.25 mg PO HS 09/29/17 03/15/23 Potassium Chloride ER [K-Dur 20] 20 meq PO BID 12/18/22 03/15/23 Rosuvastatin [Crestor] 20 mg PO HS 12/18/22 03/15/23 Fluticasone Nasal [place] [Flonase 1 spray EA NOSTRIL BID 01/27/23 03/15/23 Nasal [place]] Fluticasone Propionate 110 Mcg 2 puff INHALATION RT-BID 01/27/23 03/15/23 [Flovent 110 Mcg Inhaler] ALPRAZolam [Xanax] 2 mg PO DAILY PRN 03/15/23 03/15/23 Previous Rx's Medication Instructions Recorded Apixaban [Eliquis] 2.5 mg PO BID #60 tab 11/18/22 Aspirin 81 mg PO DAILY tab 11/18/22 Clopidogrel [Plavix] 75 mg PO HS #30 tab 11/18/22 Ezetimibe [Zetia] 10 mg PO DAILY #90 tab 11/18/22 Nitroglycerin Sl Tabs [Nitrostat] 0.4 mg SUBLINGUAL Q5M PRN #25 tab 11/18/22 Fenofibrate [Lofibra] 160 mg PO DAILY #30 tab 12/01/22 Metoprolol Succinate (ER) [Toprol 50 mg PO DAILY #30 tab 02/01/23 XL] Midodrine [ProAmatine] 5 mg PO AC-TID #30 tab 02/01/23 Furosemide [Lasix] 20 mg PO DAILY #20 tab 03/20/23 Allergies Allergy/AdvReac Type Severity Reaction Status Date / Time latex Allergy Swelling Verified 05/11/23 16:31 atorvastatin [From Lipitor] AdvReac JOINT PAIN Verified 05/11/23 16:31 Review of Systems ROS Statement: Those systems with pertinent positive or pertinent negative responses have been documented in the HPI. ROS Other: All systems not noted in ROS Statement are negative. Past Medical History Past Medical History: Coronary Artery Disease (CAD), Chest Pain / Angina, COPD, GERD/Reflux, Hyperlipidemia, Hypertension, Myocardial Infarction ([place]), Osteoarthritis (OA), Sleep Apnea/CPAP/BIPAP Additional Past Medical History / Comment(s): hiatal hernia, chronic back pain, L foot drop, numbness/tingling bilateral legs, HUSAM without device, states stents x7 Last Myocardial Infarction Date:: 11/11/22 History of Any Multi-Drug Resistant Organisms: None Reported Past Surgical History: Back Surgery, Cholecystectomy, Coronary Bypass/CABG, Heart Catheterization With Stent, Orthopedic Surgery Additional Past Surgical History / Comment(s): Back surg x 2 with cage. L tennis elbow surg. HEART STENTS X7. Colonoscopy. Lasik eye surgery bilaterally. Emergency Cabg [facility] Past Anesthesia/Blood Transfusion Reactions: No Reported Reaction Additional Past Anesthesia/Blood Transfusion Reaction / Comment(s): Pt received blood during CABG without reaction. Date of Last Stent Placement:: Oct 2022 Past Psychological History: Anxiety, Depression, PTSD Smoking Status: Former smoker Past Alcohol Use History: None Reported Past Drug Use History: None Reported - Past Family History Father Family Medical History: Coronary Artery Disease (CAD), Deep Vein Thrombosis (DV T), GERD/Reflux, Hyperlipidemia Additional Family Medical History / Comment(s): Father of a [place] in his 80's Mother Family Medical History: Coronary Artery Disease (CAD) Additional Family Medical History / Comment(s): Mother of a [place] at the age of 76yrs. Sister(s) Family Medical History: Cancer Additional Family Medical History / Comment(s): Lung cancer. General Exam Limitations: no limitations General appearance: alert, in no apparent distress Head exam: Present: atraumatic, normocephalic, normal inspection Eye exam: Present: normal appearance ENT exam: Present: normal exam, mucous membranes moist Neck exam: Present: normal inspection. Absent: tenderness, meningismus, lymphadenopathy Respiratory exam: Present: normal lung sounds bilaterally. Absent: respiratory distress, wheezes, rales, rhonchi, stridor Cardiovascular Exam: Present: regular rate, normal rhythm, normal heart sounds. Absent: systolic murmur, diastolic murmur, rubs, gallop, clicks GI/Abdominal exam: Present: soft, normal bowel sounds. Absent: distended, tenderness, guarding, rebound, rigid Extremities exam: Present: tenderness (Left knee), normal capillary refill, joint swelling (Swelling to the left knee above the patella), other (DP, PT pulses 2+). Absent: full ROM (Decreased range of motion due to pain w/ flexion), calf tenderness Back exam: Present: normal inspection Neurological exam: Present: alert, oriented X3 Psychiatric exam: Present: normal affect, normal mood Skin exam: Present: warm, dry, intact, normal color. Absent: rash Course Vital Signs 05/11/23 05/11/23 16:30 19:50 Temperature 98 F 98.3 F Pulse Rate 86 86 Respiratory 18 18 Rate Blood Pressure 100/60 111/66 O2 Sat by Pulse 98 98 Oximetry Medical Decision Making - Medical Decision Making Was pt. sent in by a medical professional or institution (ROBERT Zelaya, C UNIX DEVELOPER, urgent care, hospital, or fpc...) When possible be specific @ -No Did you speak to anyone other than the patient for history (EMS, parent, family, police, friend...)? What history was obtained from this source @ -No Did you review nursing and triage notes (agree or disagree)? Why? @ -I reviewed and agree with nursing and triage notes Were old charts reviewed (outside hosp., previous admission, EMS record, old EKG, old radiological studies, urgent care reports/EKG's, fpc records)? Report findings @ -Prior laboratory studies reviewed including hemoglobin and creatinine Differential Diagnosis (chest pain, altered mental status, abdominal pain women, abdominal pain men, vaginal bleeding, weakness, fever, dyspnea, syncope, headache, dizziness, GI bleed, back pain, seizure, CVA, palpatations, mental health, musculoskeletal)? @ -Differential Musculoskeletal Muscular strain, contusion, ligament sprain, fracture, arthritis, septic arthritis, bursitis, cellulitis, muscle spasm, nerve compression, DVT, arterial occlusion, herpes zoster, electrolyte abnormality, tumor.... This is not meant to be in all inclusive list EKG interpreted by me (3pts min.). @ -none X-rays interpreted by me (1pt min.). @ -X-ray left knee showed joint effusion and soft tissue swelling, degenerative joint changes CT interpreted by me (1pt min.). @ -None done U/S interpreted by me (1pt. min.). @ -None done What testing was considered but not performed or refused? (CT, X-rays, U/S, labs)? Why? @ -None What meds were considered but not given or refused? Why? @ -None Did you discuss the management of the patient with other professionals (professionals i.e. , PA, C UNIX DEVELOPER, lab, RT, psych nurse, social media analyst, customer service assistant, teacher, project control officer, case maker)? Give summary @ -No Was smoking cessation discussed for >3mins.? @ -No Was critical care preformed (if so, how long)? @ -No Were there social determinants of health that impacted care today? How? (Homelessness, low income, unemployed, alcoholism, drug addiction, transportation, low edu. Level, literacy, decrease access to med. care, retirement, rehab)? @ -No Was there de-escalation of care discussed even if they declined (Discuss DNR or withdrawal of care, Hospice)? DNR status @ -No What co-morbidities impacted this encounter? (DM, HTN, Smoking, COPD, CAD, Cancer, CVA, ARF, Chemo, Hep., AIDS, mental health diagnosis, sleep apnea, morbid obesity)? @ -None Was patient admitted / discharged? Hospital course, mention meds given and route, prescriptions, significant lab abnormalities, going to OR and other pertinent info. @ -Discharged. Patient presented to emergency department chief complaint of left knee pain and swelling 2 days. Chest x-ray obtained which showed joint effusion and swelling. CBC obtained which showed normal white count, CRP 4.0. Patient given dose of morphine and lidocaine patch which he states improved his pain and he felt he would be able to walk better following this. Patient instructed to follow up with his orthopedic provider tomorrow or next week. Patient agreeable with plan. Patient discharged in stable condition. Case discussed my attending, Dr. Valero Undiagnosed new problem with uncertain prognosis? @ -No Drug Therapy requiring intensive monitoring for toxicity (Heparin, Nitro, Insulin, Cardizem)? @ -No Were any procedures done? @ -No Diagnosis/symptom? @ -Left knee pain and swelling Acute, or Chronic, or Acute on Chronic? @ -Acute Uncomplicated (without systemic symptoms) or Complicated (systemic symptoms)? @ -Uncomplicated Side effects of treatment? @ -No Exacerbation, Progression, or Severe Exacerbation? @ -No Poses a threat to life or bodily function? How? (Chest pain, [place], [place], pneumonia, PE, COPD, DKA, ARF, appy, cholecystitis, CVA, Diverticulitis, Homicidal, Suicidal, threat to staff... and all critical care pts) @ -No - Lab Data Result diagrams: 05/11/23 18:31 05/11/23 18:31 Lab Results 05/11/23 05/11/23 Range/Units 18:31 18:31 WBC 7.3 (3.8-10.6) k/uL RBC 3.48 L (4.30-5.90) m/uL Hgb 9.9 L D (13.0-17.5) gm/dL Hct 30.4 L (39.0-53.0) % MCV 87.3 (80.0-100.0) fL MCH 28.6 (25.0-35.0) pg MCHC 32.7 (31.0-37.0) g/dL RDW 17.3 H (11.5-15.5) % Plt Count 173 (150-450) k/uL MPV 9.8 Neutrophils % 58 % Lymphocytes % 26 % Monocytes % 12 % Eosinophils % 0 % Basophils % 1 % Neutrophils # 4.3 (1.3-7.7) k/uL Lymphocytes # 1.9 (1.0-4.8) k/uL Monocytes # 0.9 (0-1.0) k/uL Eosinophils # 0.0 (0-0.7) k/uL Basophils # 0.0 (0-0.2) k/uL Anisocytosis Slight Sodium 133 L (137-145) mmol/L Potassium 3.8 (3.5-5.1) mmol/L Chloride 96 L (98-107) mmol/L Carbon Dioxide 25 (22-30) mmol/L Anion Gap 12 mmol/L BUN 24 H (9-20) mg/dL Creatinine 1.63 H (0.66-1.25) mg/dL Est GFR (CKD-EPI)AfAm 50 (>60 ml/min/1.73 sqM) Est GFR (CKD-EPI)NonAf 43 (>60 ml/min/1.73 sqM) Glucose 89 (74-99) mg/dL Calcium 9.0 (8.4-10.2) mg/dL C-Reactive Protein 4.0 H (<1.0) mg/dL Disposition Clinical Impression: Pain and swelling of left knee Disposition: HOME SELF-CARE Condition: Stable Instructions (If sedation given, give patient instructions): Knee Pain (ED) Additional Instructions: Follow up with Dr. Luis Eduardo kennedy. Please return to the emergency department for new or worsening symptoms. Is patient prescribed a controlled substance at d/c from ED?: No Referrals: Alexx Gee MD [Primary Care Provider] - 1-2 days Time of Disposition: 19:28
[2023-05-11] MEDS ORDERED: MORPHINE SULFATE 4 MG/ML SYRINGE IVP STA (17:47)
[2023-05-11] MEDS ORDERED: LIDOCAINE 5% PATCH TOPICAL STA (17:54)
--- NOTE | 2023-05-11 18:43 | XR ---
PROCEDURE: XR knee complete LT - 3V DATE AND TIME: 05/11/2023 6:16 PM CLINICAL INDICATION: PHH; pain TECHNIQUE: Department protocol COMPARISON: None FINDINGS: There is no fracture or malalignment. No focal skeletal lesions. There are advanced anterior compartm ent osteoarthrosis changes, moderate lateral compartment osteoarthrosis changes, and at least mild me dial compartment osteoarthrosis changes. There is a joint effusion present. There is also prominent soft tissue swelling, particularly medially IMPRESSION: Joint effusion and soft tissue swelling. Tricompartmental degenerative joint changes.
[2023-05-11 18:51] LABS: Anisocytosis Slight; Basophils % (A) 1 %; Eosinophils % (A) 0 %; HCT 30.4 % (39.0-53.0); Lymphocytes # (A) 1.9 k/uL (1.0-4.8); Lymphocytes % (A) 26 %; MCH 28.6 pg (25.0-35.0); MCHC 32.7 g/dL (31.0-37.0); MCV 87.3 fL (80.0-100.0); Mean Platelet Volume 9.8; Monocytes # (A) 0.9 k/uL (0-1.0); Monocytes % (A) 12 %; Neutrophils # (A) 4.3 k/uL (1.3-7.7); Neutrophils % (A) 58 %; Platelet Count 173 k/uL (150-450); RBC 3.48 m/uL (4.30-5.90); RDW 17.3 % (11.5-15.5); WBC 7.3 k/uL (3.8-10.6)
[2023-05-11 18:57] LABS: HGB 9.9 gm/dL (13.0-17.5)
[2023-05-11 19:08] LABS: African American GFR (CKD) 50 (>60 ml/min/1.73 sqM); Anion Gap 12 mmol/L; Blood Urea Nitrogen 24 mg/dL (9-20); Carbon Dioxide 25 mmol/L (22-30); Chloride 96 mmol/L (98-107); Glucose 89 mg/dL (74-99); Non-African American GFR(CKD) 43 (>60 ml/min/1.73 sqM); Potassium 3.8 mmol/L (3.5-5.1); Sodium 133 mmol/L (137-145)
[2023-05-11 19:51] VITALS: BP 111/66; TEMP 98.3
== END 2023-05-11 19:51 | disposition home or self-care (01) ==
LOC: EC 16:13
DX: M25.562 Pain in left knee (principal); I25.10 Atherosclerotic heart disease of native coronary artery without angina pectoris; J44.9 Chronic obstructive pulmonary disease, unspecified; I10 Essential (primary) hypertension; I25.2 Old myocardial infarction; G47.30 Sleep apnea, unspecified; E78.5 Hyperlipidemia, unspecified; F41.9 Anxiety disorder, unspecified; F32.A Depression, unspecified; Z79.899 Other long term (current) drug therapy; Z87.891 Personal history of nicotine dependence; Z88.8 Allergy status to other drugs, medicaments and biological substances; Z91.040 Latex allergy status
CPT/HCPCS: 36415; 80048; 85025; 86140; 73562; 99284; 96374; J2270

== ENCOUNTER 2023-08-21 01:30 | Observation (INO) | payer MEDICARE, OTHER ==
--- NOTE | 2023-08-21 02:03 | ED ---
Chest Pain HPI - General Chief Complaint: Chest Pain Stated Complaint: chest pain Time Seen by Provider: 08/21/23 01:35 Source: patient, EMS Mode of arrival: EMS Limitations: no limitations - History of Present Illness Initial Comments: Patient is a 68-year-old male who presents to the emergency department from [facility]. Patient transferred for cardiac evaluation. He went and [facility] with report of chest pain associated with 2 episodes of syncope yesterday. The episode was witnessed by a friend who helped him onto the couch. He denies any injuries. He has associated shortness of breath. Patient recently admitted to [facility] on August 12 for congestive heart failure. Echo was completed which demonstrated an EF of 20-30%. He has been using nitro at home which has temporarily improved his symptoms. He does have chronic respiratory insufficiency and wears 2 L of oxygen. Patient had an EKG performed which was unchanged. He was given Nitropaste and morphine. Patient is on Eliquis. Troponin was negative. Chest x-ray demonstrates small right pleural effusion. Due to persistent chest pain is recommended the patient be transferred for cardiac evaluation. - Related Data Home Medications Medication Instructions Recorded Confirmed HYDROcodone/APAP 10-325MG [[place] 1 tab PO QID PRN 02/22/15 03/15/23 10-325] rOPINIRole HCL [Requip] 0.25 mg PO HS 09/29/17 03/15/23 Potassium Chloride ER [K-Dur 20] 20 meq PO BID 12/18/22 03/15/23 Rosuvastatin [Crestor] 20 mg PO HS 12/18/22 03/15/23 Fluticasone Nasal [place] [Flonase 1 spray EA NOSTRIL BID 01/27/23 03/15/23 Nasal [place]] Fluticasone Propionate 110 Mcg 2 puff INHALATION RT-BID 01/27/23 03/15/23 [Flovent 110 Mcg Inhaler] ALPRAZolam [Xanax] 2 mg PO DAILY PRN 03/15/23 03/15/23 Previous Rx's Medication Instructions Recorded Apixaban [Eliquis] 2.5 mg PO BID #60 tab 11/18/22 Aspirin 81 mg PO DAILY tab 11/18/22 Clopidogrel [Plavix] 75 mg PO HS #30 tab 11/18/22 Ezetimibe [Zetia] 10 mg PO DAILY #90 tab 11/18/22 Nitroglycerin Sl Tabs [Nitrostat] 0.4 mg SUBLINGUAL Q5M PRN #25 tab 11/18/22 Fenofibrate [Lofibra] 160 mg PO DAILY #30 tab 12/01/22 Metoprolol Succinate (ER) [Toprol 50 mg PO DAILY #30 tab 02/01/23 XL] Midodrine [ProAmatine] 5 mg PO AC-TID #30 tab 02/01/23 Furosemide [Lasix] 20 mg PO DAILY #20 tab 03/20/23 Allergies Allergy/AdvReac Type Severity Reaction Status Date / Time latex Allergy Swelling Verified 08/21/23 01:34 atorvastatin [From Lipitor] AdvReac JOINT PAIN Verified 08/21/23 01:34 Review of Systems ROS Statement: Those systems with pertinent positive or pertinent negative responses have been documented in the HPI. ROS Other: All systems not noted in ROS Statement are negative. Past Medical History Past Medical History: Coronary Artery Disease (CAD), Chest Pain / Angina, COPD, GERD/Reflux, Hyperlipidemia, Hypertension, Myocardial Infarction ([place]), Osteoarthritis (OA), Sleep Apnea/CPAP/BIPAP Additional Past Medical History / Comment(s): hiatal hernia, chronic back pain, L foot drop, numbness/tingling bilateral legs, HUSAM without device, states stents x7 Last Myocardial Infarction Date:: 11/11/22 History of Any Multi-Drug Resistant Organisms: None Reported Past Surgical History: Back Surgery, Cholecystectomy, Coronary Bypass/CABG, Heart Catheterization With Stent, Orthopedic Surgery Additional Past Surgical History / Comment(s): Back surg x 2 with cage. L tennis elbow surg. HEART STENTS X7. Colonoscopy. Lasik eye surgery bilaterally. Emergency Cabg [facility] Past Anesthesia/Blood Transfusion Reactions: No Reported Reaction Additional Past Anesthesia/Blood Transfusion Reaction / Comment(s): Pt received blood during CABG without reaction. Date of Last Stent Placement:: Oct 2022 Past Psychological History: Anxiety, Depression, PTSD Smoking Status: Current every day smoker Past Alcohol Use History: None Reported Past Drug Use History: None Reported - Past Family History Father Family Medical History: Coronary Artery Disease (CAD), Deep Vein Thrombosis (DVT), GERD/Reflux, Hyperlipidemia Additional Family Medical History / Comment(s): Father of a OK in his 80's Mother Family Medical History: Coronary Artery Disease (CAD) Additional Family Medical History / Comment(s): Mother of a OK at the age of 76yrs. Sister(s) Family Medical History: Cancer Additional Family Medical History / Comment(s): Lung cancer. General Exam Limitations: no limitations General appearance: alert, in no apparent distress Head exam: Present: atraumatic, normocephalic, normal inspection Eye exam: Present: normal appearance, PERRL, EOMI. Absent: scleral icterus, conjunctival injection, periorbital swelling ENT exam: Present: normal exam, mucous membranes moist Neck exam: Present: normal inspection. Absent: tenderness, meningismus, lymphadenopathy Respiratory exam: Present: normal lung sounds bilaterally. Absent: respiratory distress, wheezes, rales, rhonchi, stridor Cardiovascular Exam: Present: regular rate, normal rhythm, normal heart sounds. Absent: systolic murmur, diastolic murmur, rubs, gallop, clicks GI/Abdominal exam: Present: soft, normal bowel sounds. Absent: distended, tenderness, guarding, rebound, rigid Extremities exam: Present: normal inspection, full ROM, normal capillary refill. Absent: tenderness, pedal edema, joint swelling, calf tenderness Back exam: Present: normal inspection Neurological exam: Present: alert, oriented X3, CN II-XII intact Psychiatric exam: Present: normal affect, normal mood Skin exam: Present: warm, dry, intact, normal color. Absent: rash Course Vital Signs 08/21/23 08/21/23 08/21/23 01:31 03:20 04:23 Temperature 97.6 F Pulse Rate 84 82 78 Respiratory 18 18 16 Rate Blood Pressure 119/65 103/62 108/70 O2 Sat by Pulse 98 94 L 98 Oximetry 08/21/23 05:27 Temperature 97.8 F Pulse Rate 84 Respiratory 18 Rate Blood Pressure 107/65 O2 Sat by Pulse 95 Oximetry Chest Pain MDM - MDM Was pt. sent in by a medical professional or institution (, PA, PEDIATRICS PHYSICIAN, urgent care, hospital, or jail...) When possible be specific @ -Patient was sent by [facility] Did you speak to anyone other than the patient for history (EMS, parent, family, police, friend...)? What history was obtained from this source @ -I spoke with Dr. Alexis at [facility] Did you review nursing and triage notes (agree or disagree)? Why? @ -I reviewed and agree with nursing and triage notes Were old charts reviewed (outside hosp., previous admission, EMS record, old EKG, old radiological studies, urgent care reports/EKG's, jail records)? Report findings @ -I reviewed patient's chart from [place] Differential Diagnosis (chest pain, altered mental status, abdominal pain women, abdominal pain men, vaginal bleeding, weakness, fever, dyspnea, syncope, headache, dizziness, GI bleed, back pain, seizure, CVA, palpatations, mental health, musculoskeletal)? @ -Differential Chest Pain: Stable Angina, Unstable Angina, STEMI, NSTEMI Aortic Dissection, Pneumothorax, Musculoskeletal, Esophageal Spasm GERD, Cholecystitis, Pancreatitis, Zoster, this is not meant to be an all-inclusive list. EKG interpreted by me (3pts min.). @ -EKG demonstrates sinus rhythm rate of 80. GA 135. QRS 102. QTC 441. There is biphasic T-wave in lead 3. Morphology is similar to old. No acute ST segment elevation Repeat EKG is performed which demonstrates sinus rhythm with rate of 86. GA interval 144. QRS 102. QTC of 436. He does have some ST depression in V4 thro ugh V6 X-rays interpreted by me (1pt min.). @ -None done CT interpreted by me (1pt min.). @ -None done U/S interpreted by me (1pt. min.). @ -None done What testing was considered but not performed or refused? (CT, X-rays, U/S, labs)? Why? @ -None What meds were considered but not given or refused? Why? @ -None Did you discuss the management of the patient with other professionals (snow dodson i.e. , PA, PEDIATRICS PHYSICIAN, lab, RT, psych nurse, social services director, workers' compensation claims supervisor, teacher, jailer/training officer, rn case manager)? Give summary @ -Spoke with Dr. Gee for admission Was smoking cessation discussed for >3mins.? @ -No Was critical care preformed (if so, how long)? @ -No Were there social determinants of health that impacted care today? How? (Homelessness, low income, unemployed, alcoholism, drug addiction, transportation, low edu. Level, literacy, decrease access to med. care, senior living, rehab)? @ -No Was there de-escalation of care discussed even if they declined (Discuss DNR or withdrawal of care, Hospice)? DNR status @ -No What co-morbidities impacted this encounter? (DM, HTN, Smoking, COPD, CAD, Cancer, CVA, ARF, Chemo, Hep., AIDS, mental health diagnosis, sleep apnea, morbid obesity)? @ -Atherosclerotic coronary artery disease, heart failure with reduced ejection fraction Was patient admitted / discharged? Hospital course, mention meds given and route, prescriptions, significant lab abnormalities, going to OR and other pertinent info. @ -Upon arrival patient was placed into room 3. Thorough history and physical exam was performed. I did review the transfer packet. I did repeat laboratory studies. Patient will be admitted to Dr. Gee with cardiology to consult Undiagnosed new problem with uncertain prognosis? @ -No Drug Therapy requiring intensive monitoring for toxicity (Heparin, Nitro, Insulin, Cardizem)? @ -No Were any procedures done? @ -No Diagnosis/symptom? @ -Acute chest pain, possible ACS, history of atherosclerotic coronary artery disease status post bypass Acute, or Chronic, or Acute on Chronic? @ -Acute Uncomplicated (without systemic symptoms) or Complicated (systemic symptoms)? @ -Complicated Side effects of treatment? @ -No Exacerbation, Progression, or Severe Exacerbation? @ -No Poses a threat to life or bodily function? How? (Chest pain, [place], [place], pneumonia, PE, COPD, DKA, ARF, appy, cholecystitis, CVA, Diverticulitis, Homicidal, Suicidal, threat to staff... and all critical care pts) @ -No Disposition Clinical Impression: Chest pain Disposition: ADMITTED IP TO THIS HOSP Condition: Stable Is patient prescribed a controlled substance at d/c from ED?: No Time of Disposition: 02:40 Decision to Admit Reason: Admit from EC Decision Date: 08/21/23 Decision Time: 02:40
[2023-08-21 02:18] LABS: Basophils % (A) 0 %; Eosinophils # (A) 0.1 k/uL (0-0.7); Eosinophils % (A) 1 %; HCT 37.4 % (39.0-53.0); HGB 11.6 gm/dL (13.0-17.5); Hypochromasia Moderate; Lymphocytes # (A) 1.7 k/uL (1.0-4.8); Lymphocytes % (A) 29 %; MCV 90.6 fL (80.0-100.0); Mean Platelet Volume 10.2; Monocytes # (A) 0.3 k/uL (0-1.0); Monocytes % (A) 6 %; Neutrophils # (A) 3.6 k/uL (1.3-7.7); Neutrophils % (A) 62 %; Platelet Count 126 k/uL (150-450); RBC 4.13 m/uL (4.30-5.90); RDW 15.2 % (11.5-15.5); WBC 5.8 k/uL (3.8-10.6)
[2023-08-21 02:21] LABS: ALT 15 U/L (4-49); AST 39 U/L (17-59); African American GFR (CKD) 84 (>60 ml/min/1.73 sqM); Albumin 3.9 g/dL (3.5-5.0); Alkaline Phosphatase 107 U/L (38-126); Anion Gap 11 mmol/L; Blood Urea Nitrogen 22 mg/dL (9-20); Calcium 9.1 mg/dL (8.4-10.2); Carbon Dioxide 26 mmol/L (22-30); Chloride 104 mmol/L (98-107); Glucose 93 mg/dL (74-99); Magnesium 1.8 mg/dL (1.6-2.3); Non-African American GFR(CKD) 73 (>60 ml/min/1.73 sqM); Potassium 3.8 mmol/L (3.5-5.1); Sodium 141 mmol/L (137-145); Total Bilirubin 0.6 mg/dL (0.2-1.3); Total Protein 7.1 g/dL (6.3-8.2)
[2023-08-21] MEDS ORDERED: NALOXONE 0.4 MG/ML 1 ML VIAL IV PRN (02:40)
[2023-08-21] MEDS ORDERED: HYDROmorphone 1 MG/ML 1 ML SYRINGE IVP PRN (02:40)
[2023-08-21] MEDS ORDERED: CYCLOBENZAPRINE 10 MG TAB PO PRN (08:38)
[2023-08-21] MEDS ORDERED: HYDROcodone/APAP 10-325MG 1 EACH TAB PO PRN (08:38)
[2023-08-21] MEDS ORDERED: ALPRAZolam 1 MG TAB PO PRN (08:38)
[2023-08-21] MEDS ORDERED: NITROGLYCERIN SL TABS 0.4 MG TAB SUBLINGUAL PRN (08:38)
[2023-08-21] MEDS ORDERED: FLUTICASONE 50MCG/SPRAY NASAL 16GM EA NOSTRIL PRN (08:38)
[2023-08-21] MEDS ORDERED: amLODIPine 2.5 MG TAB PO SCH (09:00)
[2023-08-21] MEDS ORDERED: EZETIMIBE 10 MG TAB PO SCH (09:00)
[2023-08-21] MEDS ORDERED: APIXABAN 2.5 MG TABLET PO SCH (09:00)
[2023-08-21] MEDS ORDERED: allopurinoL 100 MG TAB PO SCH (09:00)
[2023-08-21] MEDS ORDERED: METOPROLOL SUCCINATE (ER) 50 MG TAB.ER.24H PO SCH (09:00)
[2023-08-21] MEDS ORDERED: POTASSIUM CHLORIDE ER 20 MEQ TAB.ER PO SCH (09:00)
[2023-08-21] MEDS ORDERED: CLOPIDOGREL 75 MG TAB PO SCH (09:00)
[2023-08-21] MEDS ORDERED: FENOFIBRATE 160 MG TAB PO SCH (09:00)
[2023-08-21] MEDS ORDERED: FUROSEMIDE 80 MG TAB PO SCH (09:00)
[2023-08-21] MEDS ORDERED: AMINOPHYLLINE 500 MG/20 ML VIAL IV PRN (09:27)
[2023-08-21] MEDS ORDERED: REGADENOSON 0.4 MG/5 ML SYRINGE IV PRN (09:27)
[2023-08-21] MEDS ORDERED: CAFFEINE CITRATE 60 MG/3 ML VIAL IV PRN (09:27)
[2023-08-21] MEDS ORDERED: RANOLAZINE 500 MG TAB.ER.12H PO SCH (09:30)
[2023-08-21] MEDS ORDERED: DAPAGLIFLOZIN PROPANEDIOL 5 MG TABLET PO SCH (09:30)
--- NOTE | 2023-08-21 10:04 | P.CRDCN ---
History of Present Illness History of present illness: HISTORY OF PRESENT ILLNESS: This is a 68-year-old male with a past medical history significant for coronary artery disease with previous CABG and stenting, severe ischemic cardiomyopathy, hypertension, hyperlipidemia, chronic kidney disease, and valvular heart disea se. Patient follows in the office with Dr. Wiggins. We have been asked to see the patient in consultation for chest pain. Patient examined at the bedside. patient states he began having chest pain yesterday when he was watching TV. He states that his neighbor made him some goulash which he ate and then approximately one hour later he began to have chest discomfort. The patient does point to his epi gastric region when describing where the pain was located. He also reports having some mild shortness of breath. He states that he took 2 nitro with relief of his chest pain. He states that he has had no further episodes of chest pain or pressure since coming to the hospital. The patient does report having some chest pain and shortness of breath with exertion which has been unchanged over the past couple months. * EKG reveals sinus mechanism with no signs of acute ischemia. Q waves inferiorl y and T-wave inversions in lateral leads, seen on previous EKG in February 2023 * Laboratory data: WBC 5.8. Hemoglobin 11.6. Platelet count 126. Sodium 141. Potassium 3.8. BUN 22. Creatinine 1.07. Magnesium 1.8. Troponin negative 2. * Current home cardiac medications include Eliquis 2.5mg BID, lisinopril 2.5 mg daily, Zetia 10 mg daily, Lasix 80 mg daily, fenofibrate 160 mg daily, Imdur 30 mg daily, metoprolol succinate 50 mg daily, amlodipine 2.5 mg daily, Plavix 75 mg daily, rosuvastatin 20 mg at night * Most recent echocardiogram obtained in April 2023 revealing ejection fraction 35%, moderate MR, and moderate AR * Cardiac catheterization history: October 2022 with thrombectomy of the SVG to LAD and stenting of the SVG to LAD REVIEW OF SYSTEMS: At the time of my exam: CONSTITUTIONAL: Denies fever or chills. HEENT: Denies blurred vision, vision changes, or eye pain. Denies hemoptysis CARDIOVASCULAR: Denies chest pain. Denies orthopnea. Denies PND. Denies palpitations RESPIRATORY: Denies shortness of breath. GASTROINTESTINAL: Denies abdominal pain. Denies nausea or vomiting. HEMATOLOGIC: Denies bleeding disorders. GENITOURINARY: Denies any blood in urine. SKIN: Denies pruitis. Denies rash. PHYSICAL EXAM: VITAL SIGNS: Reviewed. GENERAL: Well-developed in no acute distress. HEENT: Head is normocephalic. Pupils are equal, round. Sclerae anicteric. Mucous membranes of the mouth are moist. Neck supple. positive JVD LUNGS: Respirations even and unlabored. Lungs essentially clear to auscultation bilaterally. HEART: Regular rate and rhythm. S1 and S2 heard. + systolic murmur noted. ABDOMEN: Soft. Nondistended. Nontender. EXTREMITIES: Normal range of motion. No clubbing or cyanosis. Peripheral pulses intact. No lower extremity edema NEUROLOGIC: Awake and alert. Oriented x 3. ASSESSMENT: Chest pain Coronary artery disease with previous CABG and PCI, most recently SVG to LAD in October 2022 History of thrombectomy of SVG to LAD, October 2022-recommended to be on anticoagulation per Dr. Wiggins at that time History of ventricular fibrillation; during cardiac catheterization October 2022 Ischemic cardiomyopathy Chronic heart failure with reduced ejection fraction Chronic kidney disease Hypertension Hyperlipidemia Valvular heart disease including moderate MR and moderate AR PLAN: An acute coronary event has been ruled out Resume home cardiac medications Continue Eliquis and Plavix. Discontinue aspirin. Discontinue amlodipine secondary to soft blood pressures Add Ranexa 500 mg twice a day Add Farxiga 5 mg daily Patient to undergo Lexiscan stress test today If negative, the patient may be discharged home from a cardiac standpoint Nurse practitioner note has been reviewed by physician. Signing provider agrees with the documented findings, assessment, and plan of care. Past Medical History Past Medical History: Coronary Artery Disease (CAD), Chest Pain / Angina, COPD, GERD/Reflux, Hyperlipidemia, Hypertension, Myocardial Infarction (NM), Osteoarthritis (OA), Sleep Apnea/CPAP/BIPAP Additional Past Medical History / Comment(s): hiatal hernia, chronic back pain, L foot drop, numbness/tingling bilateral legs, HUSAM without device, states stents x7 Last Myocardial Infarction Date:: 11/11/22 History of Any Multi-Drug Resistant Organisms: None Reported Past Surgical History: Back Surgery, Cholecystectomy, Coronary Bypass/CABG, Heart Catheterization With Stent, Orthopedic Surgery Additional Past Surgical History / Comment(s): Back surg x 2 with cage. Emily byers elbow surg. HEART STENTS X7. Colonoscopy. Lasik eye surgery bilaterally. Emergency Cabg [facility] Past Anesthesia/Blood Transfusion Reactions: No Reported Reaction Additional Past Anesthesia/Blood Transfusion Reaction / Comment(s): Pt received blood during CABG without reaction. Date of Last Stent Placement:: Oct 2022 Past Psychological History: Anxiety, Depression, PTSD Smoking Status: Current every day smoker Past Alcohol Use History: None Reported Past Drug Use History: None Reported - Past Family History Father Family Medical History: Coronary Artery Disease (CAD), Deep Vein Thrombosis (DVT), GERD/Reflux, Hyperlipidemia Additional Family Medical History / Comment(s): Father of a [place] in his 80's Mother Family Medical History: Coronary Artery Disease (CAD) Additional Family Medical History / Comment(s): Mother of a NM at the age of 76yrs. Sister(s) Family Medical History: Cancer Additional Family Medical History / Comment(s): Lung cancer. Medications and Allergies Home Medications Medication Instructions Recorded Confirmed Type HYDROcodone/APAP 10-325MG [[place] 1 tab PO TID PRN 02/22/15 08/21/23 History 10-325] rOPINIRole HCL [Requip] 0.25 mg PO HS 09/29/17 08/21/23 History Apixaban [Eliquis] 2.5 mg PO BID #60 tab 11/18/22 08/21/23 Rx Ezetimibe [Zetia] 10 mg PO DAILY #90 tab 11/18/22 08/21/23 Rx Nitroglycerin Sl Tabs [Nitrostat] 0.4 mg SUBLINGUAL Q5M PRN #25 tab 11/18/22 08/21/23 Rx Fenofibrate [Lofibra] 160 mg PO DAILY #30 tab 12/01/22 08/21/23 Rx Potassium Chloride ER [K-Dur 20] 20 meq PO BID 12/18/22 08/21/23 History Rosuvastatin [Crestor] 20 mg PO HS 12/18/22 08/21/23 History Fluticasone Nasal [place] [Flonase 1 spray EA NOSTRIL BID PRN 01/27/23 08/21/23 History Nasal [place]] Metoprolol Succinate (ER) [Toprol 50 mg PO DAILY #30 tab 02/01/23 08/21/23 Rx XL] ALPRAZolam [Xanax] 2 mg PO TID PRN 03/15/23 08/21/23 History Clopidogrel [Plavix] 75 mg PO DAILY 08/21/23 08/21/23 History Cyclobenzaprine [Flexeril] 10 mg PO TID PRN 08/21/23 08/21/23 History Diclofenac Sodium Gel [Voltaren 1% 1 applic TOPICAL QID PRN 08/21/23 08/21/23 History Gel] Furosemide [Lasix] 80 mg PO DAILY 08/21/23 08/21/23 History Isosorbide Mononitrate ER [Imdur] 30 mg PO DAILY 08/21/23 08/21/23 History Omeprazole [PriLOSEC] 20 mg PO AC-BID 08/21/23 08/21/23 History allopurinoL [Zyloprim] 100 mg PO DAILY 08/21/23 08/21/23 History amLODIPine [Norvasc] 2.5 mg PO DAILY 08/21/23 08/21/23 History lisinopriL [Zestril] 2.5 mg PO DAILY 08/21/23 08/21/23 History Allergies Allergy/AdvReac Type Severity Reaction Status Date / Time latex Allergy Swelling Verified 08/21/23 01:34 atorvastatin [From Lipitor] AdvReac JOINT PAIN Verified 08/21/23 01:34 Physical Exam Vitals: Vital Signs Temp Pulse Resp BP Pulse Ox 08/21/23 06:18 76 16 96 08/21/23 05:27 97.8 F 84 18 107/65 95 08/21/23 04:23 78 16 108/70 98 08/21/23 03:20 82 18 103/62 94 L 08/21/23 01:31 97.6 F 84 18 119/65 98 Intake and Output 08/20/23 08/21/23 08/21/23 22:59 06:59 14:59 Other: Weight 92.986 kg Results 08/21/23 01:37 08/21/23 01:37 Cardiac Enzymes 08/21/23 08/21/23 08/21/23 Range/Units 01:37 01:37 04:50 AST 39 (17-59) U/L Troponin I 0.026 0.023 (0.000-0.034) ng/mL CBC 08/21/23 Range/Units 01:37 WBC 5.8 (3.8-10.6) k/uL RBC 4.13 L (4.30-5.90) m/uL Hgb 11.6 L (13.0-17.5) gm/dL Hct 37.4 L (39.0-53.0) % Plt Count 126 L (150-450) k/uL Comprehensive Metabolic Panel 08/21/23 Range/Units 01:37 Sodium 141 (137-145) mmol/L Potassium 3.8 (3.5-5.1) mmol/L Chloride 104 (98-107) mmol/L Carbon Dioxide 26 (22-30) mmol/L BUN 22 H (9-20) mg/dL Creatinine 1.07 (0.66-1.25) mg/dL Glucose 93 (74-99) mg/dL Calcium 9.1 (8.4-10.2) mg/dL AST 39 (17-59) U/L ALT 15 (4-49) U/L Alkaline Phosphatase 107 (38-126) U/L Total Protein 7.1 (6.3-8.2) g/dL Albumin 3.9 (3.5-5.0) g/dL Current Medications Generic Name Dose Route Start Last Admin Trade Name Freq PRN Reason Stop Dose Admin Hydromorphone HCl 1 mg 08/21/23 02:40 08/21/23 05:30 Hydromorphone 1 Mg/Ml 1 Ml Syringe IVP 1 mg Q3HR PRN Administration Severe Pain (Scale 7 to 10) Naloxone HCl 0.2 mg 08/21/23 02:40 Naloxone 0.4 Mg/Ml 1 Ml Vial IV Q2M PRN Opioid Reversal Intake and Output 08/20/23 08/21/23 08/21/23 22:59 06:59 14:59 Other: Weight 92.986 kg 08/21/23 01:37 08/21/23 01:37
--- NOTE | 2023-08-21 14:12 | CA ---
Lexiscan Nuclear Stress Test Report Name: Israel Simmons Exam Date: 08/21/2023 12:54 Exam Location: [facility] Ht (in): 69 Wt (lb): 205 BSA: 2.09 Ordering Phys: Serina Card Referring Phys: Beto,, Technologist: David Cuevas Age: 68 Gender: M : 1955 Procedure CPT: Indications: Reflex order-Stress test ICD-10 Codes: Patient History: CP, MICKIE, PALP, ANGINA, HTN, FAMILY HX, TOB, CATH, PTCA X8, CABG Medications: Meds past 24 hrs: ATORVASTATIN, LATEX Pretest Chest Pain: STRESS TEST Lexiscan Protocol Exercise Duration (min:sec): 01:[address] Depressions (mm): Angina Score: Acevedo Score: Resting HR (bpm): 85 Peak HR (bpm): 96 Resting BP (mmHg): 117 / 78 Peak BP (mmHg): 123 / 64 MPHR: 154 Target HR: 131 % MPHR: 62 METS: 1.0 Total Dose: Peak Dose: Atropine: Double Product: 57331 BP Response: Stress Termination: DOSAGE COMPLETED Stress Symptoms: No chest pain or symptoms Stress Summary: ECG ANALYSIS Resting ECG: Stress ECG: CONCLUSIONS RESTING EKG: [Normal sinus rhythm, nonspecific T-wave inversions in lateral leads, Q waves in inferior leads] , Heart rate 85 BPM Patient recieved IV infusion of Lexiscan 0.4mg and at peak infusion STRESS EKG showed: No significant ST-T wave changes with Lexiscan infusion that are diagnostic for ischemia ARRYTHMIAS: Occasional monomorphic PVCs noticed. No sustained arrhythmias CONCLUSION: 1. Normal hemodynamic and heart response to Lexiscan infusion. 2. Non-ischemic EKG response to lexiscan infusion 3. Nuclear perfusion imaging is reported separately by the radiology team. Please refer to that report for complete interpretation of this study. Dr Jose J Pérez (Electronically Signed) Final Date: 21 August 2023 14:11
[2023-08-21] MEDS: ISOSORBIDE MONONITRATE ER 30 MG TAB.ER.24H PO SCH ×2 (14:35→14:39)
[2023-08-21 14:41] VITALS: BP 111/71; PULSE 86
--- NOTE | 2023-08-21 15:49 | NM ---
EXAMINATION TYPE: NM stress lexiscan cardiolite DATE OF EXAM: 08/21/2023 COMPARISON: NONE HISTORY: Chest pain TECHNIQUE: After the intravenous administration of 10.2 mCi Tc 99m Sestamibi - Cardiolite resting SP ECT images acquired 44 minutes post injection. At peak stress 25 mCi Tc 99m Sestamibi - Stress images obtained 30 minutes post injection The patient was stressed with 0.4mg Lexiscan. FINDINGS: There are large anterior wall defects on both resting and stress images. This appears fixed. There is a large defect along the posterior wall on both resting and stress images that appears fixed. There is loss of radiotracer at the cardiac apex and appears match between resting and stress images. Polar maps correlate with the findings. Ejection fraction is low at 28%. There is global hypokinesia. IMPRESSION: 1. Large fixed defects along the anterior posterior wall and at the cardiac apex compatible with prio r infarcts. 2. Global hypokinesia with a low ejection fraction of 28%.
[2023-08-21 16:01] VITALS: RESP 16; TEMP 97.7
[2023-08-21] MEDS ORDERED: PANTOPRAZOLE 40 MG TABLET PO SCH (17:30)
[2023-08-21] MEDS ORDERED: NON FORMULARY DRUG (Rosuvastatin 20 MG Tablet) PO SCH (21:00)
--- NOTE | 2023-08-24 07:02 | HP ---
HISTORY AND PHYSICAL CHIEF COMPLAINT: Chest pain and shortness of breath. HISTORY OF PRESENT ILLNESS: Another admission for this 68-year-old white male. He has advanced coronary artery disease and has had open-heart surgery as well as stenting in the past. He has been a heavy smoker and states that he has quit. He has congestive heart failure with reduced ejection fraction and he has been having difficulty over the last several months standing out of the hospital, started develops chest pain, shortness of breath and went to [facility] and then was transferred here. REVIEW OF SYSTEMS: He denies any syncope, cough, hemoptysis, abdominal pain, nausea, vomiting, diarrhea, etc. PAST MEDICAL HISTORY, FAMILY HISTORY AND PERSONAL AND SOCIAL HISTORIES: All otherwise unremarkable and unchanged from his recent admitting and discharge summaries. PHYSICAL EXAMINATION: VITAL SIGNS: Blood pressure is 104/55 with pulse of 94 and irregularly irregular. Respirations were 38. GENERAL: He appeared to be slightly pale. SKIN: Dry. HEAD, EARS, EYES, NOSE, MOUTH AND THROAT: Normal. NECK: Neck veins not distended. CHEST: Demonstrated decreased breath sounds throughout with scattered rales. CARDIAC: Demonstrated a rapid rate and it was a rate ABDOMEN: Soft, nontender. EXTREMITIES: Normal. NEUROLOGIC: Intact. DIAGNOSES: He is admitted to the hospital with diagnoses: 1. Acute coronary syndrome. 2. Advanced coronary artery disease. 3. Heart failure with reduced ejection fraction. 4. Acute congestive heart failure. 5. Chronic obstructive pulmonary disease. PLAN: 1. Bedrest. 2. IV fluids. 3. Serial EKGs and enzymes. 4. Cardiology consult. MMODL / IJN: [id number] /
--- NOTE | 2023-08-24 09:05 | DS ---
DISCHARGE SUMMARY CHIEF COMPLAINT: Chest pain and shortness of breath. HISTORY OF PRESENT ILLNESS AND PHYSICAL EXAMINATION: Details of this man's history and physical can be found in the initial workup. LABORATORY STUDIES: While he was in the hospital, he had laboratory studies, details of which can be found in the laboratory section of his chart. COURSE IN THE HOSPITAL: After admission, he was placed on bedrest, started on intravenous fluids, and we treated his acute coronary syndrome. Seen by Cardiology. They wanted to perform another cardiac cath, but the patient refused and signed out against medical advice. FINAL DIAGNOSES: 1. Acute coronary syndrome. 2. Advanced coronary artery disease with unstable angina and congestive heart failure with reduced ejection fraction. 3. Chronic obstructive pulmonary disease. 4. Depression. OPERATIONS: None. CONSULTATIONS: Cardiology. REYNALDO / CALLI: [id number] /
== END 2023-08-21 17:54 | disposition left against medical advice (07) ==
LOC: EC 01:30 → 6NMEDSUR 02:40
PROVIDERS: ADMIT Family Medicine; ATTEND Family Medicine
DX: I24.9 Acute ischemic heart disease, unspecified (principal); I25.110 Atherosclerotic heart disease of native coronary artery with unstable angina pectoris; I13.0 Hypertensive heart and chronic kidney disease with heart failure and stage 1 through stage 4 chronic kidney disease, or unspecified chronic kidney disease; I50.22 Chronic systolic (congestive) heart failure; N18.9 Chronic kidney disease, unspecified; J44.9 Chronic obstructive pulmonary disease, unspecified; F32.A Depression, unspecified; R06.89 Other abnormalities of breathing; K21.9 Gastro-esophageal reflux disease without esophagitis; E78.5 Hyperlipidemia, unspecified; F43.10 Post-traumatic stress disorder, unspecified; G89.29 Other chronic pain; M54.9 Dorsalgia, unspecified; G47.33 Obstructive sleep apnea (adult) (pediatric); I25.5 Ischemic cardiomyopathy; I25.2 Old myocardial infarction; F17.200 Nicotine dependence, unspecified, uncomplicated; Z95.5 Presence of coronary angioplasty implant and graft; Z79.01 Long term (current) use of anticoagulants; Z99.81 Dependence on supplemental oxygen; Z79.899 Other long term (current) drug therapy; Z79.82 Long term (current) use of aspirin; Z91.040 Latex allergy status; Z82.49 Family history of ischemic heart disease and other diseases of the circulatory system; Z53.20 Procedure and treatment not carried out because of patient's decision for unspecified reasons
CPT/HCPCS: 96374; 99285; 36415; 93005; 93017; 80053; 83735; 84484; 85025; 78452; G0378; A9500; J1170; J2785

== ENCOUNTER 2023-09-14 11:03 | Emergency (ER) | payer MEDICARE, OTHER ==
[2023-09-14 11:21] VITALS: TEMP 98
[2023-09-14] MEDS ORDERED: ONDANSETRON 4 MG/2 ML VIAL IVP STA (11:34)
[2023-09-14] MEDS ORDERED: SODIUM CHLORIDE 0.9% 1,000 ML IV STA (11:34)
[2023-09-14] MEDS ORDERED: MORPHINE SULFATE 4 MG/ML SYRINGE IVP STA (11:35)
--- NOTE | 2023-09-14 12:18 | ED ---
Abdominal Pain HPI - General Chief Complaint: GI Bleed Stated Complaint: MICKIE, blood in stool Time Seen by Provider: 09/14/23 11:13 Source: patient, RN notes reviewed Mode of arrival: ambulatory Limitations: no limitations - History of Present Illness Initial Comments: This is a 68-year-old male who presents to the emergency department for abdominal pain and blood in his stool. States that for the last 2 days he has had pain in his right lower back with radiation into the abdomen. He has also started to develop bright red blood mixed in with the stool. He is on Eliquis. Also reports nausea and vomiting. He does report that he has chronic back pain and arthritis, and states that he may have just moved wrong, causing the back pain. Additionally, he did have blood in his stool a few months ago and this resolved on its own. Denies any chest pain or shortness of breath. MD Complaint: abdominal pain - Related Data Home Medications Medication Instructions Recorded Confirmed HYDROcodone/APAP 10-325MG [[place] 1 tab PO TID PRN 02/22/15 09/14/23 10-325] rOPINIRole HCL [Requip] 0.25 mg PO HS 09/29/17 09/14/23 Potassium Chloride ER [K-Dur 20] 20 meq PO BID 12/18/22 09/14/23 Rosuvastatin [Crestor] 20 mg PO HS 12/18/22 09/14/23 Fluticasone Nasal [place] [Flonase 1 spray EA NOSTRIL BID PRN 01/27/23 09/14/23 Nasal [place]] ALPRAZolam [Xanax] 2 mg PO TID PRN 03/15/23 09/14/23 Clopidogrel [Plavix] 75 mg PO DAILY 08/21/23 09/14/23 Cyclobenzaprine [Flexeril] 10 mg PO TID PRN 08/21/23 09/14/23 Diclofenac Sodium Gel [Voltaren 1% 1 applic TOPICAL QID PRN 08/21/23 09/14/23 Gel] Furosemide [Lasix] 80 mg PO DAILY 08/21/23 09/14/23 Isosorbide Mononitrate ER [Imdur] 30 mg PO DAILY 08/21/23 09/14/23 Omeprazole [PriLOSEC] 20 mg PO AC-BID 08/21/23 09/14/23 allopurinoL [Zyloprim] 100 mg PO DAILY 08/21/23 09/14/23 amLODIPine [Norvasc] 2.5 mg PO DAILY 08/21/23 09/14/23 lisinopriL [Zestril] 2.5 mg PO DAILY 08/21/23 09/14/23 Previous Rx's Medication Instructions Recorded Apixaban [Eliquis] 2.5 mg PO BID #60 tab 11/18/22 Ezetimibe [Zetia] 10 mg PO DAILY #90 tab 11/18/22 Nitroglycerin Sl Tabs [Nitrostat] 0.4 mg SUBLINGUAL Q5M PRN #25 tab 11/18/22 Fenofibrate [Lofibra] 160 mg PO DAILY #30 tab 12/01/22 Metoprolol Succinate (ER) [Toprol 50 mg PO DAILY #30 tab 02/01/23 XL] Allergies Allergy/AdvReac Type Severity Reaction Status Date / Time latex Allergy Swelling Verified 09/14/23 11:11 atorvastatin [From Lipitor] AdvReac JOINT PAIN Verified 09/14/23 11:11 Review of Systems ROS Statement: Those systems with pertinent positive or pertinent negative responses have been documented in the HPI. ROS Other: All systems not noted in ROS Statement are negative. Past Medical History Past Medical History: Coronary Artery Disease (CAD), Chest Pain / Angina, COPD, GERD/Reflux, Hyperlipidemia, Hypertension, Myocardial Infarction ([place]), Osteoarthritis (OA), Sleep Apnea/CPAP/BIPAP Additional Past Medical History / Comment(s): hiatal hernia, chronic back pain, L foot drop, numbness/tingling bilateral legs, HUSAM without device, states stents x7 Last Myocardial Infarction Date:: 11/11/22 History of Any Multi-Drug Resistant Organisms: None Reported Past Surgical History: Back Surgery, Cholecystectomy, Coronary Bypass/CABG, Heart Catheterization With Stent, Orthopedic Surgery Additional Past Surgical History / Comment(s): Back surg x 2 with cage. L tennis elbow surg. HEART STENTS X7. Colonoscopy. Lasik eye surgery bilaterally. Emergency [facility] Past Anesthesia/Blood Transfusion Reactions: No Reported Reaction Additional Past Anesthesia/Blood Transfusion Reaction / Comment(s): Pt received blood during CABG without reaction. Date of Last Stent Placement:: Oct 2022 Past Psychological History: Anxiety, Depression, PTSD Smoking Status: Current every day smoker Past Alcohol Use History: None Reported Past Drug Use History: None Reported - Past Family History Father Family Medical History: Coronary Artery Disease (CAD), Deep Vein Thrombosis (DVT), GERD/Reflux, Hyperlipidemia Additional Family Medical History / Comment(s): Father of a [place] in his 80's Mother Family Medical History: Coronary Artery Disease (CAD) Additional Family Medical History / Comment(s): Mother of a [place] at the age of 76yrs. Sister(s) Family Medical History: Cancer Additional Family Medical History / Comment(s): Lung cancer. General Exam Limitations: no limitations General appearance: alert, in no apparent distress Head exam: Present: atraumatic, normocephalic, normal inspection Respiratory exam: Present: normal lung sounds bilaterally. Absent: respiratory distress, wheezes, rales, rhonchi, stridor Cardiovascular Exam: Present: regular rate, normal rhythm, normal heart sounds. Absent: systolic murmur, diastolic murmur, rubs, gallop, clicks GI/Abdominal exam: Present: soft, tenderness (RLQ and periumbilical), normal bowel sounds. Absent: distended Rectal exam: Present: normal inspection, other (No active bleeding) Back exam: Present: CVA tenderness (R) Neurological exam: Present: alert, oriented X3, CN II-XII intact Psychiatric exam: Present: normal affect, normal mood Skin exam: Present: warm, dry, intact, normal color. Absent: rash Course Vital Signs 09/14/23 09/14/23 09/14/23 11:08 11:11 12:11 Temperature 98 F Pulse Rate 82 75 80 Respiratory 18 20 20 Rate Blood Pressure 110/71 130/60 110/60 O2 Sat by Pulse 98 98 98 Oximetry 09/14/23 09/14/23 14:11 16:16 Temperature Pulse Rate 79 65 Respiratory 20 16 Rate Blood Pressure 96/47 130/65 O2 Sat by Pulse 98 98 Oximetry Medical Decision Making - Medical Decision Making This is a 68-year-old male who presents to the emergency department for abdominal pain and blood in his stool. Was pt. sent in by a medical professional or institution? @ -No Did you speak to anyone other than the patient for history? @ -No Did you review nursing and triage notes? @ -Yes, and I agree, it is accurate with regards to the patient's symptoms. Were old charts reviewed? @ -No Differential Diagnosis? @ -Differential Abdominal Pain Men: Appendicitis, cholecystitis, diverticulosis, ischemic bowel, pancreatitis, hepatitis, UTI, gastroenteritis, AAA, incarcerated hernia, bowel obstruction, constipation, inflammatory bowel, hepatitis, peptic ulcer disease, splenic infarction, perforated viscus, testicular torsion, this is not meant to be an all-inclusive list EKG interpreted by me (3pts min.)? @ -EKG interpreted by me demonstrating the following: Sinus rhythm. Ventricular rate 72 beats per minute, MO interval 138 ms, QRS duration 108 ms, QTC 501 ms. X-rays interpreted by me (1pt min.)? @ -Not obtained CT interpreted by me (1pt min.)? @ -Computed tomography scan of the abdomen and pelvis obtained. My interpretation identifies no evidence of bowel wall thickening or free air. U/S interpreted by me (1pt. min.)? @ -Not obtained What testing was considered but not performed? (CT, X-rays, U/S, labs)? Why? @ -None What meds were considered but not given? Why? @ -None Did you discuss the management of the patient with other professionals? @ -No Did you reconcile home meds? @ -No Was smoking cessation discussed for >3mins.? @ -No Was critical care preformed (if so, how long)? @ -No Were there social determinants of health that impacted care today? How? (Homelessness, low income, unemployed, alcoholism, drug addiction, transportation, low edu. Level, literacy, decrease access to med. care, [facility], rehab)? @ -No Was there de-escalation of care discussed even if they declined? (Discuss DNR or withdrawal of care, Hospice)? @ -No What co-morbidities impacted this encounter? (DM, HTN, Smoking, COPD, CAD, Cancer, CVA, Hep., AIDS, mental health diagnosis, sleep apnea, morbid obesity)? @ -CAD, osteoarthritis Was patient admitted / discharged? @ -Discharged. Lab work obtained and found to be unremarkable. Hemoglobin stable when compared with prior values. Urinalysis negative for signs of infection. Computed tomography scan of the abdomen and pelvis obtained revealing small bilateral pleural effusions without any other acute process to account for his symptoms. He did not have any active bleeding on exam and he did not exhibit any blood in his stool while in the emergency department. He did continue to have back pain which was eventually controlled. His nausea however was easily controlled with Zofran. I did offer admission for the GI bleed and intractable back pain, however the patient declined and states that he would rather go home and follow up with Dr. Gee in the office. States that he forgot that he had Zofran, Flexeril, and lidocaine patches at home and will plan on using those. He felt that the lidocaine patches in particular were very helpful. Patient discharged home in stable condition with strict return parameters and instructions to have close follow-up with his primary care provider. Undiagnosed new problem with uncertain prognosis? @ -None Drug Therapy requiring intensive monitoring for toxicity (Heparin, Nitro, Insulin, Cardizem)? @ -None Were any procedures done? @ -None Diagnosis/symptom? @ -GI bleed, abdominal pain, back pain Acute, or Chronic, or Acute on Chronic? @ -Acute Uncomplicated (without systemic symptoms) or Complicated (systemic symptoms)? @ -Uncomplicated Side effects of treatment? @ -None Exacerbation, Progression, or Severe Exacerbation] @ -Not applicable Poses a threat to life or bodily function? @ -This will depend on the progression of his symptoms. Return precautions reviewed in depth, the patient is instructed to return to the emergency department with any new, worsening, or concerning symptoms. Patient verbalized understanding. This case was discussed in detail with the attending ED physician, Dr. Corral. Presentation, findings, and treatment plan discussed in detail as well. - Lab Data Result diagrams: 09/14/23 11:34 09/14/23 11:34 Lab Results 09/14/23 09/14/23 09/14/23 Range/Units 11:34 11:34 11:34 WBC 5.4 (3.8-10.6) k/uL RBC 4.00 L (4.30-5.90) m/uL Hgb 11.5 L (13.0-17.5) gm/dL Hct 34.9 L (39.0-53.0) % MCV 87.2 (80.0-100.0) fL MCH 28.8 (25.0-35.0) pg MCHC 33.0 (31.0-37.0) g/dL RDW 15.7 H (11.5-15.5) % Plt Count 143 L (150-450) k/uL MPV 10.3 Neutrophils % 60 % Lymphocytes % 29 % Monocytes % 7 % Eosinophils % 1 % Basophils % 1 % Neutrophils # 3.2 (1.3-7.7) k/uL Lymphocytes # 1.5 (1.0-4.8) k/uL Monocytes # 0.4 (0-1.0) k/uL Eosinophils # 0.1 (0-0.7) k/uL Basophils # 0.0 (0-0.2) k/uL Hypochromasia Slight PT (10.0-12.5) sec INR (<1.2) APTT (22.0-30.0) sec Sodium 138 (137-145) mmol/L Potassium 4.2 (3.5-5.1) mmol/L Chloride 102 (98-107) mmol/L Carbon Dioxide 24 (22-30) mmol/L Anion Gap 12 mmol/L BUN 20 (9-20) mg/dL Creatinine 1.28 H (0.66-1.25) mg/dL Est GFR (CKD-EPI)AfAm 67 (>60 ml/min/1.73 sqM) Est GFR (CKD-EPI)NonAf 58 (>60 ml/min/1.73 sqM) Glucose 91 (74-99) mg/dL Plasma Lactic Acid Tomy 1.4 (0.7-2.0) mmol/L Calcium 9.3 (8.4-10.2) mg/dL Total Bilirubin 1.2 (0.2-1.3) mg/dL AST 39 (17-59) U/L ALT 18 (4-49) U/L Alkaline Phosphatase 125 (38-126) U/L Troponin I (0.000-0.034) ng/mL Total Protein 7.4 (6.3-8.2) g/dL Albumin 4.1 (3.5-5.0) g/dL Amylase 38 (30-110) U/L Lipase 69 (23-300) U/L Urine Color Urine Appearance (Clear) Urine pH (5.0-8.0) Ur Specific [place] (1.001-1.035) Urine Protein (Negative) Urine Glucose (UA) (Negative) Urine Ketones (Negative) Urine Blood (Negative) Urine Nitrite (Negative) Urine Bilirubin (Negative) Urine Urobilinogen (<2.0) mg/dL Ur Leukocyte Esterase (Negative) 09/14/23 09/14/23 09/14/23 Range/Units 11:34 11:35 11:35 WBC (3.8-10.6) k/uL RBC (4.30-5.90) m/uL Hgb (13.0-17.5) gm/dL Hct (39.0-53.0) % MCV (80.0-100.0) fL MCH (25.0-35.0) pg MCHC (31.0-37.0) g/dL RDW (11.5-15.5) % Plt Count (150-450) k/uL MPV Neutrophils % % Lymphocytes % % Monocytes % % Eosinophils % % Basophils % % Neutrophils # (1.3-7.7) k/uL Lymphocytes # (1.0-4.8) k/uL Monocytes # (0-1.0) k/uL Eosinophils # (0-0.7) k/uL Basophils # (0-0.2) k/uL Hypochromasia PT 11.1 (10.0-12.5) sec INR 1.0 (<1.2) APTT 27.1 (22.0-30.0) sec Sodium (137-145) mmol/L Potassium (3.5-5.1) mmol/L Chloride (98-107) mmol/L Carbon Dioxide (22-30) mmol/L Anion Gap mmol/L BUN (9-20) mg/dL Creatinine (0.66-1.25) mg/dL Est GFR (CKD-EPI)AfAm (>60 ml/min/1.73 sqM) Est GFR (CKD-EPI)NonAf (>60 ml/min/1.73 sqM) Glucose (74-99) mg/dL Plasma Lactic Acid Tomy (0.7-2.0) mmol/L Calcium (8.4-10.2) mg/dL Total Bilirubin (0.2-1.3) mg/dL AST (17-59) U/L ALT (4-49) U/L Alkaline Phosphatase (38-126) U/L Troponin I 0.012 (0.000-0.034) ng/mL Total Protein (6.3-8.2) g/dL Albumin (3.5-5.0) g/dL Amylase (30-110) U/L Lipase (23-300) U/L Urine Color Colorless Urine Appearance Clear (Clear) Urine pH 7.0 (5.0-8.0) Ur Specific [place] 1.006 (1.001-1.035) Urine Protein Negative (Negative) Urine Glucose (UA) Negative (Negative) Urine Ketones Negative (Negative) Urine Blood Negative (Negative) Urine Nitrite Negative (Negative) Urine Bilirubin Negative (Negative) Urine Urobilinogen <2.0 (<2.0) mg/dL Ur Leukocyte Esterase Negative (Negative) - Radiology Data Radiology results: report reviewed, image reviewed Disposition Clinical Impression: Blood in stool, Abdominal pain, Back pain Disposition: HOME SELF-CARE Instructions (If sedation given, give patient instructions): Gastrointestinal Bleeding (ED), Abdominal Pain (ED), Flank Pain (ED), Back Pain (ED) Additional Instructions: Return to the emergency department with any new, worsening, or concerning symptoms. Continue taking your [place] at home. Make sure you are taking the baclofen and Zofran as well for further management. You can also apply the li docaine patches daily. Follow up with your primary care provider in 1-2 days. Is patient prescribed a controlled substance at d/c from ED?: No Referrals: Alexx Gee MD [Primary Care Provider] - 1-2 days
[2023-09-14 12:32] LABS: Partial Thromboplastin Time 27.1 sec (22.0-30.0); Prothrombin Time 11.1 sec (10.0-12.5)
[2023-09-14 12:36] LABS: Appearance,Urine Clear (Clear); Bilirubin,Urine Negative (Negative); Blood,Urine Negative (Negative); Color,Urine Colorless; Glucose,Urine (UA) Negative (Negative); Ketones,Urine Negative (Negative); Leukocyte Esterase,Urine Negative (Negative); Nitrite,Urine Negative (Negative); Protein,Urine Negative (Negative); Specific Gravity,Urine 1.006 (1.001-1.035); Urobilinogen,Urine <2.0 mg/dL (<2.0)
[2023-09-14 12:37] LABS: ALT 18 U/L (4-49); AST 39 U/L (17-59); African American GFR (CKD) 67 (>60 ml/min/1.73 sqM); Albumin 4.1 g/dL (3.5-5.0); Alkaline Phosphatase 125 U/L (38-126); Amylase 38 U/L (30-110); Anion Gap 12 mmol/L; Blood Urea Nitrogen 20 mg/dL (9-20); Calcium 9.3 mg/dL (8.4-10.2); Carbon Dioxide 24 mmol/L (22-30); Chloride 102 mmol/L (98-107); Glucose 91 mg/dL (74-99); Lipase 69 U/L (23-300); Non-African American GFR(CKD) 58 (>60 ml/min/1.73 sqM); Potassium 4.2 mmol/L (3.5-5.1); Sodium 138 mmol/L (137-145); Total Bilirubin 1.2 mg/dL (0.2-1.3); Total Protein 7.4 g/dL (6.3-8.2)
[2023-09-14 12:53] LABS: Basophils % (A) 1 %; Eosinophils # (A) 0.1 k/uL (0-0.7); Eosinophils % (A) 1 %; HCT 34.9 % (39.0-53.0); HGB 11.5 gm/dL (13.0-17.5); Hypochromasia Slight; Lymphocytes # (A) 1.5 k/uL (1.0-4.8); Lymphocytes % (A) 29 %; MCH 28.8 pg (25.0-35.0); MCV 87.2 fL (80.0-100.0); Mean Platelet Volume 10.3; Monocytes # (A) 0.4 k/uL (0-1.0); Monocytes % (A) 7 %; Neutrophils # (A) 3.2 k/uL (1.3-7.7); Neutrophils % (A) 60 %; Platelet Count 143 k/uL (150-450); RDW 15.7 % (11.5-15.5); WBC 5.4 k/uL (3.8-10.6)
[2023-09-14] MEDS ORDERED: HYDROmorphone 1 MG/ML 1 ML SYRINGE IVP STA ×2 (12:53→14:31)
--- NOTE | 2023-09-14 13:22 | CT ---
EXAMINATION TYPE: CT abdomen pelvis w con DATE OF EXAM: 09/14/2023 COMPARISON: 06/25/2023 HISTORY: Back pain CT DLP: 1391.3 mGycm CONTRAST: CT scan of the abdomen and pelvis is performed without Oral Contrast and with IV Contrast, patient in jected with 100 mL of Isovue 300. FINDINGS: LUNG BASES-: No visible nodule. No infiltrate. Right basilar effusion with maximal AP dimension of 5 .3 cm. Trace left-sided pleural effusion seen. LIVER/GB: The gallbladder is surgically absent. No space occupying hepatic lesion. Biliary tree is of normal caliber. PANCREAS: No inflammation. No distinct mass. SPLEEN: No splenic enlargement. No lesion seen. ADRENALS: No nodule. No thickening. KIDNEYS/BLADDER: No hydronephrosis. No nephrolithiasis. No distinct renal mass. Urinary bladder g rossly unremarkable. BOWEL: Normal appendix. Normal bowel caliber. No inflammation. GENITAL ORGANS: No gross abnormality. LYMPH NODES: No greater than 1cm abdominal or pelvic lymph nodes are appreciated. AORTA: No significant abnormality. OSSEOUS STRUCTURES: Degenerative postoperative changes lumbar spine. OTHER: No significant additional abnormality is seen. IMPRESSION: 1. Bilateral pleural effusions right greater than left. 2. No acute intra-abdominal process seen with certainty.
[2023-09-14] MEDS ORDERED: LIDOCAINE 5% PATCH TOPICAL ONE (14:31)
[2023-09-14] MEDS ORDERED: KETOROLAC 15 MG/ML 1 ML VIAL IVP STA (14:31)
[2023-09-14 16:31] VITALS: BP 130/65; PULSE 65; RESP 16
== END 2023-09-14 16:18 | disposition home or self-care (01) ==
LOC: EC 11:03
DX: K92.1 Melena (principal); R10.9 Unspecified abdominal pain; M54.9 Dorsalgia, unspecified; I25.2 Old myocardial infarction; J90 Pleural effusion, not elsewhere classified; I25.10 Atherosclerotic heart disease of native coronary artery without angina pectoris; J44.9 Chronic obstructive pulmonary disease, unspecified; K21.9 Gastro-esophageal reflux disease without esophagitis; I10 Essential (primary) hypertension; G47.30 Sleep apnea, unspecified; M19.90 Unspecified osteoarthritis, unspecified site; E78.5 Hyperlipidemia, unspecified; F41.9 Anxiety disorder, unspecified; F32.A Depression, unspecified; F17.200 Nicotine dependence, unspecified, uncomplicated; Z79.1 Long term (current) use of non-steroidal anti-inflammatories (NSAID); Z79.51 Long term (current) use of inhaled steroids; Z79.01 Long term (current) use of anticoagulants; Z79.899 Other long term (current) drug therapy; Z91.040 Latex allergy status; Z88.6 Allergy status to analgesic agent; Z79.02 Long term (current) use of antithrombotics/antiplatelets; Z90.49 Acquired absence of other specified parts of digestive tract; Z95.5 Presence of coronary angioplasty implant and graft
CPT/HCPCS: 36415; 93005; 80053; 82150; 83605; 83690; 84484; 85025; 85610; 85730; 81003; 74177; 99285; 96374; 96375 ×3; 96376; 96361; J2270; J2405; J1170; J1885; Q9967

== ENCOUNTER 2023-11-23 23:30 | Observation (INO) | payer MEDICARE, OTHER ==
[2023-11-24] MEDS ORDERED: NITROGLYCERIN SL TABS 0.4 MG TAB SUBLINGUAL STA ×3 (00:11)
[2023-11-24] MEDS ORDERED: ASPIRIN 81 MG PO STA (00:11)
[2023-11-24] MEDS ORDERED: HEPARIN SODIUM 1,000 UN/ML (10ML VL) IV ONE (00:36)
[2023-11-24] MEDS ORDERED: HEPARIN SODIUM 1,000 UN/ML (10ML VL) IV PRN (00:36)
[2023-11-24 00:37] LABS: Anisocytosis Slight; Basophils % (A) 1 %; Eosinophils # (A) 0.1 k/uL (0-0.7); Eosinophils % (A) 1 %; HCT 30.9 % (39.0-53.0); Hypochromasia Marked; Lymphocytes # (A) 1.4 k/uL (1.0-4.8); Lymphocytes % (A) 27 %; MCH 26.4 pg (25.0-35.0); MCHC 32.3 g/dL (31.0-37.0); MCV 81.6 fL (80.0-100.0); Mean Platelet Volume 9.6; Monocytes # (A) 0.4 k/uL (0-1.0); Monocytes % (A) 8 %; Neutrophils % (A) 60 %; Platelet Count 156 k/uL (150-450); RBC 3.79 m/uL (4.30-5.90); RDW 16.1 % (11.5-15.5); WBC 5.1 k/uL (3.8-10.6)
[2023-11-24] MEDS ORDERED: HEPARIN SOD,PORK IN 0.45% NACL 25,000 UNIT in 0.45% NACL 1 250ML.BAG IV SCH (00:45)
[2023-11-24 00:46] LABS: ALT 12 U/L (4-49); AST 26 U/L (17-59); African American GFR (CKD) 48 (>60 ml/min/1.73 sqM); Albumin 4.3 g/dL (3.5-5.0); Alkaline Phosphatase 103 U/L (38-126); Anion Gap 12 mmol/L; Blood Urea Nitrogen 23 mg/dL (9-20); Calcium 9.3 mg/dL (8.4-10.2); Carbon Dioxide 24 mmol/L (22-30); Chloride 103 mmol/L (98-107); Glucose 101 mg/dL (74-99); Magnesium 1.9 mg/dL (1.6-2.3); Non-African American GFR(CKD) 42 (>60 ml/min/1.73 sqM); Potassium 3.5 mmol/L (3.5-5.1); Sodium 139 mmol/L (137-145); Total Bilirubin 1.1 mg/dL (0.2-1.3); Total Protein 7.6 g/dL (6.3-8.2)
--- NOTE | 2023-11-24 00:46 | ED ---
General Adult HPI - General Source: patient Mode of arrival: ambulatory Limitations: no limitations <Warren Rivera - Last Filed: 11/24/23 16:40> <Ava Field - Last Filed: 11/26/23 10:51> - General Chief complaint: Shortness of Breath Stated complaint: SOB Time Seen by Provider: 11/23/23 23:56 - History of Present Illness Initial comments: 68-year-old male with history of CAD, CABG, PCI, COPD, hyperlipidemia, hypertension, NV presenting with chief complaint of chest pain and difficulty breathing. This started around 7 PM tonight. Patient states that he could not find his nitro pills at home so he did not use them. This is a pressure-like pain in the center of the chest that radiates to the left shoulder and back. He admits to nausea. He admits to pleuritic chest pain. He states that he had some lower extremity swelling. No fever, cough, congestion, sore throat, abdominal pain. (Warren Rivera) - Related Data Home Medications Medication Instructions Recorded Confirmed HYDROcodone/APAP 10-325MG [Kinde 1 tab PO QID PRN 02/22/15 11/24/23 10-325] rOPINIRole HCL [Requip] 0.25 mg PO HS 09/29/17 11/24/23 Potassium Chloride ER [K-Dur 20] 20 meq PO BID 12/18/22 11/24/23 Fluticasone Nasal [place] [Flonase 1 spray EA NOSTRIL BID PRN 01/27/23 11/24/23 Nasal [place]] ALPRAZolam [Xanax] 2 mg PO TID PRN 03/15/23 11/24/23 Clopidogrel [Plavix] 75 mg PO DAILY 08/21/23 11/24/23 Cyclobenzaprine [Flexeril] 10 mg PO TID PRN 08/21/23 11/24/23 Diclofenac Sodium Gel [Voltaren 1% 1 applic TOPICAL QID PRN 08/21/23 11/24/23 Gel] Furosemide [Lasix] 80 mg PO DAILY 08/21/23 11/24/23 Isosorbide Mononitrate ER [Imdur] 30 mg PO DAILY 08/21/23 11/24/23 Omeprazole [PriLOSEC] 20 mg PO AC-BID 08/21/23 11/24/23 allopurinoL [Zyloprim] 100 mg PO DAILY 08/21/23 11/24/23 amLODIPine [Norvasc] 2.5 mg PO DAILY 08/21/23 11/24/23 lisinopriL [Zestril] 2.5 mg PO DAILY 08/21/23 11/24/23 Indomethacin [Indocin] 25 mg PO TID 11/24/23 11/24/23 Lidocaine 5% Patch [Lidoderm] 1 patch TOPICAL DAILY 11/24/23 11/24/23 Previous Rx's Medication Instructions Recorded Apixaban [Eliquis] 2.5 mg PO BID #60 tab 11/18/22 Ezetimibe [Zetia] 10 mg PO DAILY #90 tab 11/18/22 Nitroglycerin Sl Tabs [Nitrostat] 0.4 mg SUBLINGUAL Q5M PRN #25 tab 11/18/22 Fenofibrate [Lofibra] 160 mg PO DAILY #30 tab 12/01/22 Metoprolol Succinate (ER) [Toprol 50 mg PO DAILY #30 tab 02/01/23 XL] Allergies Allergy/AdvReac Type Severity Reaction Status Date / Time latex Allergy Swelling Verified 11/24/23 07:12 atorvastatin [From Lipitor] AdvReac JOINT PAIN Verified 11/24/23 07:12 Review of Systems ROS Other: All systems not noted in ROS Statement are negative. <Warren Rivera - Last Filed: 11/24/23 16:40> ROS Other: All systems not noted in ROS Statement are negative. <Ava Field - Last Filed: 11/26/23 10:51> ROS Statement: Those systems with pertinent positive or pertinent negative responses have been documented in the HPI. Past Medical History Past Medical History: Coronary Artery Disease (CAD), Chest Pain / Angina, COPD, GERD/Reflux, Hyperlipidemia, Hypertension, Myocardial Infarction (NV), O steoarthritis (OA), Sleep Apnea/CPAP/BIPAP Additional Past Medical History / Comment(s): hiatal hernia, chronic back pain, L foot drop, numbness/tingling bilateral legs, HUSAM without device, states stents x7 Last Myocardial Infarction Date:: 11/11/22 History of Any Multi-Drug Resistant Organisms: None Reported Past Surgical History: Back Surgery, Cholecystectomy, Coronary Bypass/CABG, Heart Catheterization With Stent, Orthopedic Surgery Additional Past Surgical History / Comment(s): Back surg x 2 with cage. L tennis elbow surg. HEART STENTS X7. Colonoscopy. Lasik eye surgery bilaterally. Emergency Cabg [facility] Past Anesthesia/Blood Transfusion Reactions: No Reported Reaction Additional Past Anesthesia/Blood Transfusion Reaction / Comment(s): Pt received blood during CABG without reaction. Date of Last Stent Placement:: Oct 2022 Past Psychological History: Anxiety, Depression, PTSD Smoking Status: Current every day smoker Past Alcohol Use History: None Reported Past Drug Use History: None Reported - Past Family History Father Family Medical History: Coronary Artery Disease (CAD), Deep Vein Thrombosis (DVT), GERD/Reflux, Hyperlipidemia Additional Family Medical History / Comment(s): Father of a NV in his 80's Mother Family Medical History: Coronary Artery Disease (CAD) Additional Family Medical History / Comment(s): Mother of a NV at the age of 76yrs. Sister(s) Family Medical History: Cancer Additional Family Medical History / Comment(s): Lung cancer. <Warren Rivera - Last Filed: 11/24/23 16:40> General Exam Limitations: no limitations General appearance: alert, in distress (in pain) Head exam: Present: atraumatic, normocephalic Eye exam: Present: normal appearance, EOMI Neck exam: Present: normal inspection Respiratory exam: Present: normal lung sounds bilaterally. Absent: respiratory distress, wheezes, rales, rhonchi, stridor Cardiovascular Exam: Present: normal rhythm, tachycardia, normal heart sounds. Absent: systolic murmur, diastolic murmur, rubs, gallop, clicks Extremities exam: Present: normal inspection Neurological exam: Present: alert, oriented X3 Psychiatric exam: Present: normal affect, normal mood Skin exam: Present: warm, dry <Warren Rivera - Last Filed: 11/24/23 16:40> Course Vital Signs 11/23/23 11/23/23 11/24/23 23:36 23:42 00:12 Temperature 97.8 F Pulse Rate 118 H Respiratory 20 Rate Blood Pressure 118/64 O2 Sat by Pulse 98 Oximetry 11/24/23 11/24/23 11/24/23 00:23 00:30 00:41 Temperature Pulse Rate 74 73 Respiratory 17 20 Rate Blood Pressure 104/62 99/69 O2 Sat by Pulse 96 97 98 Oximetry 11/24/23 11/24/23 11/24/23 01:00 01:30 02:00 Temperature Pulse Rate 73 71 73 Respiratory 20 18 16 Rate Blood Pressure 98/60 100/54 103/57 O2 Sat by Pulse 98 Oximetry 11/24/23 11/24/23 11/24/23 02:30 03:00 03:30 Temperature Pulse Rate 74 67 69 Respiratory 22 18 16 Rate Blood Pressure 91/49 105/66 102/59 O2 Sat by Pulse Oximetry 11/24/23 11/24/23 11/24/23 04:00 04:30 05:00 Temperature Pulse Rate 77 71 72 Respiratory 16 18 15 Rate Blood Pressure 100/59 112/62 100/66 O2 Sat by Pulse 93 L 92 L Oximetry 11/24/23 11/24/23 11/24/23 05:30 08:24 10:15 Temperature 98.3 F Pulse Rate 70 75 75 Respiratory 18 18 20 Rate Blood Pressure 105/65 111/66 109/64 O2 Sat by Pulse 95 97 Oximetry 11/24/23 12:22 Temperature 97.9 F Pulse Rate 70 Respiratory 20 Rate Blood Pressure 113/69 O2 Sat by Pulse 98 Oximetry Medical Decision Making - Lab Data Result diagrams: 11/24/23 00:11 11/24/23 00:11 <Warren Rivera - Last Filed: 11/24/23 16:40> - Lab Data Result diagrams: 11/24/23 00:11 11/24/23 00:11 <Ava Field - Last Filed: 11/26/23 10:51> - Medical Decision Making Was pt. sent in by a medical professional or institution (, PA, MUD GRINDER, urgent care, hospital, or half-way...) When possible be specific @ -No Did you speak to anyone other than the patient for history (EMS, parent, family, police, friend...)? What history was obtained from this source @ -No Did you review nursing and triage notes (agree or disagree)? Why? @ -I reviewed and agree with nursing and triage notes Were old charts reviewed (outside hosp., previous admission, EMS record, old EKG, old radiological studies, urgent care reports/EKG's, half-way records)? Report findings @ -Previous admissions are reviewed Differential Diagnosis (chest pain, altered mental status, abdominal pain women, abdominal pain men, vaginal bleeding, weakness, fever, dyspnea, syncope, headache, dizziness, GI bleed, back pain, seizure, CVA, palpatations, mental h ealth, musculoskeletal)? @ -MDM Differential Chest Pain: Stable Angina, Unstable Angina, STEMI, NSTEMI Aortic Dissection, Pneumothorax, Musculoskeletal, Esophageal Spasm GERD, Cholecystitis, Pancreatitis, Zoster This is not meant to be an all-inclusive list. EKG interpreted by me (3pts min.). @ -EKG shows sinus rhythm with marked sinus arrhythmia. Ventricular rate 78. AL interval 143. QRS 111. QT 409. QTc 442. Biphasic T waves present in leads V1, V2. X-rays interpreted by me (1pt min.). @ -Chest x-ray shows cardiomegaly with mild right pleural effusion CT interpreted by me (1pt min.). @ -None done U/S interpreted by me (1pt. min.). @ -None done What testing was considered but not performed or refused? (CT, X-rays, U/S, labs)? Why? @ -None What meds were considered but not given or refused? Why? @ -None Did you discuss the management of the patient with other professionals (professionals i.e. , PA, MUD GRINDER, lab, RT, psych nurse, high school social studies tutor, photographic artist, teacher, community services officer, disability case manager)? Give summary @ -My attending spoke with Dr. Gee for admission Was smoking cessation discussed for >3mins.? @ -No Was critical care preformed (if so, how long)? @ -No Were there social determinants of health that impacted care today? How? (Homelessness, low income, unemployed, alcoholism, drug addiction, transportation, low edu. Level, literacy, decrease access to med. care, care home, rehab)? @ -No Was there de-escalation of care discussed even if they declined (Discuss DNR or withdrawal of care, Hospice)? DNR status @ -No What co-morbidities impacted this encounter? (DM, HTN, Smoking, COPD, CAD, Cancer, CVA, ARF, Chemo, Hep., AIDS, mental health diagnosis, sleep apnea, morbid obesity)? @ -CAD, history of NV, CABG and PCI Was patient admitted / discharged? Hospital course, mention meds given and route, prescriptions, significant lab abnormalities, going to OR and other pertinent info. @ -68-year-old male presenting with chief complaint of chest pain. Radiation to the back. History and physical exam were conducted. Patient is given 1 nitro which she states did not relieve the pain, however he became somewhat hypotensive following this dose of nitro so second and third doses were not administered. Troponin is 0.029. BNP 3880, which is somewhat improved compared to his previous values. Chest x-ray shows cardiomegaly with right pleural effus ion. Patient was given Dilaudid which he states significantly improved his pain. The patient has positive Wellens criteria on EKG. Given the character of his pain and his medical history, my attending and I discussed treatment options. It was decided that the patient will be started on heparin after consulting with my attending Dr. Field. D-dimer 0.81. Results of CT angio are pending. Patient is signed out to my attending Dr. Field for any further management required pending CT results. Patient nonetheless requires admission. He is agreeable with this plan. I discussed this case in detail with my attending Dr. Wiley Undiagnosed new problem with uncertain prognosis? @ -No Drug Therapy requiring intensive monitoring for toxicity (Heparin, Nitro, Insulin, Cardizem)? @ -Heparin Were any procedures done? @ -No Diagnosis/symptom? @ -Chest pain Acute, or Chronic, or Acute on Chronic? @ -Acute Uncomplicated (without systemic symptoms) or Complicated (systemic symptoms)? @ -Complicated Side effects of treatment? @ -No Exacerbation, Progression, or Severe Exacerbation? @ -No Poses a threat to life or bodily function? How? (Chest pain, USA, NV, pneumonia, PE, COPD, DKA, ARF, appy, cholecystitis, CVA, Diverticulitis, Homicidal, Suicidal, threat to staff... and all critical care pts) @ -Yes (Warren Rivera) CT is negative for any PE. Patient is heparinized due to elevated troponin level. Critical care time of 35 minutes for heparinization. I did speak with Dr. Gee in regards to the admission. He was agreeable to the admission with cardiology to consult (Ava Field) - Lab Data Lab Results 11/24/23 11/24/23 11/24/23 Range/Units 00:11 00:11 00:11 WBC 5.1 (3.8-10.6) k/uL RBC 3.79 L (4.30-5.90) m/uL Hgb 10.0 L (13.0-17.5) gm/dL Hct 30.9 L (39.0-53.0) % MCV 81.6 (80.0-100.0) fL MCH 26.4 (25.0-35.0) pg MCHC 32.3 (31.0-37.0) g/dL RDW 16.1 H (11.5-15.5) % Plt Count 156 (150-450) k/uL MPV 9.6 Neutrophils % 60 % Lymphocytes % 27 % Monocytes % 8 % Eosinophils % 1 % Basophils % 1 % Neutrophils # 3.0 (1.3-7.7) k/uL Lymphocytes # 1.4 (1.0-4.8) k/uL Monocytes # 0.4 (0-1.0) k/uL Eosinophils # 0.1 (0-0.7) k/uL Basophils # 0.0 (0-0.2) k/uL Hypochromasia Marked Anisocytosis Slight PT 11.4 (10.0-12.5) sec INR 1.0 (<1.2) APTT 26.8 (22.0-30.0) sec D-Dimer 0.81 H (<0.60) mg/L FEU Sodium 139 (137-145) mmol/L Potassium 3.5 (3.5-5.1) mmol/L Chloride 103 (98-107) mmol/L Carbon Dioxide 24 (22-30) mmol/L Anion Gap 12 mmol/L BUN 23 H (9-20) mg/dL Creatinine 1.68 H (0.66-1.25) mg/dL Est GFR (CKD-EPI)AfAm 48 (>60 ml/min/1.73 sqM) Est GFR (CKD-EPI)NonAf 42 (>60 ml/min/1.73 sqM) Glucose 101 H (74-99) mg/dL Calcium 9.3 (8.4-10.2) mg/dL Magnesium 1.9 (1.6-2.3) mg/dL Total Bilirubin 1.1 (0.2-1.3) mg/dL AST 26 (17-59) U/L ALT 12 (4-49) U/L Alkaline Phosphatase 103 (38-126) U/L Troponin I (0.000-0.034) ng/mL NT-Pro-B Natriuret Pep 3880 pg/mL Total Protein 7.6 (6.3-8.2) g/dL Albumin 4.3 (3.5-5.0) g/dL 11/24/23 Range/Units 00:11 WBC (3.8-10.6) k/uL RBC (4.30-5.90) m/uL Hgb (13.0-17.5) gm/dL Hct (39.0-53.0) % MCV (80.0-100.0) fL MCH (25.0-35.0) pg MCHC (31.0-37.0) g/dL RDW (11.5-15.5) % Plt Count (150-450) k/uL MPV Neutrophils % % Lymphocytes % % Monocytes % % Eosinophils % % Basophils % % Neutrophils # (1.3-7.7) k/uL Lymphocytes # (1.0-4.8) k/uL Monocytes # (0-1.0) k/uL Eosinophils # (0-0.7) k/uL Basophils # (0-0.2) k/uL Hypochromasia Anisocytosis PT (10.0-12.5) sec INR (<1.2) APTT (22.0-30.0) sec D-Dimer (<0.60) mg/L FEU Sodium (137-145) mmol/L Potassium (3.5-5.1) mmol/L Chloride (98-107) mmol/L Carbon Dioxide (22-30) mmol/L Anion Gap mmol/L BUN (9-20) mg/dL Creatinine (0.66-1.25) mg/dL Est GFR (CKD-EPI)AfAm (>60 ml/min/1.73 sqM) Est GFR (CKD-EPI)NonAf (>60 ml/min/1.73 sqM) Glucose (74-99) mg/dL Calcium (8.4-10.2) mg/dL Magnesium (1.6-2.3) mg/dL Total Bilirubin (0.2-1.3) mg/dL AST (17-59) U/L ALT (4-49) U/L Alkaline Phosphatase (38-126) U/L Troponin I 0.029 (0.000-0.034) ng/mL NT-Pro-B Natriuret Pep pg/mL Total Protein (6.3-8.2) g/dL Albumin (3.5-5.0) g/dL Disposition Time of Disposition: 03:46 <Warren Rivera - Last Filed: 11/24/23 16:40> <Ava Field - Last Filed: 11/26/23 10:51> Clinical Impression: Chest pain Disposition: ADMITTED IP TO THIS HOSP Condition: Poor
[2023-11-24 00:53] LABS: Partial Thromboplastin Time 26.8 sec (22.0-30.0); Prothrombin Time 11.4 sec (10.0-12.5)
[2023-11-24 00:55] LABS: NT-Pro-B-Type Natriuretic Pept 3880 pg/mL
[2023-11-24] MEDS ORDERED: HYDROmorphone 0.5 MG/0.5 ML SYRINGE IVP STA (00:57)
[2023-11-24] MEDS ORDERED: SODIUM CHLORIDE 0.9% 500 ML 500 ML IV ONE (01:47)
--- NOTE | 2023-11-24 02:16 | XR ---
EXAM: XR Chest, 2 Views CLINICAL HISTORY: ITS.REASON XR Reason: Chest Pain TECHNIQUE: Frontal and lateral views of the chest. COMPARISON: No relevant prior studies available. IMPRESSION: Cardiomegaly. Mild right pleural effusion.
[2023-11-24] MEDS ORDERED: NALOXONE 0.4 MG/ML 1 ML VIAL IV PRN (03:29)
[2023-11-24] MEDS: MORPHINE SULFATE 4 MG/ML SYRINGE IV PRN ×4 (04:40→17:15)
--- NOTE | 2023-11-24 04:57 | CT ---
EXAM: CT Angiography Chest With Intravenous Contrast CLINICAL HISTORY: ITS.REASON CT Reason: chest pain, SOB TECHNIQUE: Axial computed tomographic angiography images of the chest with intravenous contrast. CTDI is 30.77 mGy and DLP is 661.4 mGy-cm. This CT exam was performed using one or more of the following dose reduction techniques: automated exposure control, adjustment of the mA and/or kV according to patient size, and/or use of iterative reconstruction technique. MIP reconstructed images were created and reviewed. COMPARISON: No relevant prior studies available. FINDINGS: Pulmonary arteries: Unremarkable. No pulmonary embolism. Aorta: Atherosclerotic disease. No thoracic aortic aneurysm. Lungs: See below. Pleural space: Moderate right pleural effusion with adjacent compressive atelectasis. No pneumothorax. Heart: Unremarkable. No cardiomegaly. No significant pericardial effusion. No evidence of RV dysfunction. Bones/joints: Degenerative changes in the spine. Sternotomy changes. No acute fracture. No dislocation. Soft tissues: Gynecomastia. Lymph nodes: Enlarged right hilar lymph nodes measure up to 1.5 cm in short axis. Findings may be infectious or inflammatory nature. Liver: Cirrhotic morphology of the liver. Gallbladder and bile ducts: Cholecystectomy changes. Other findings: Organomegaly. IMPRESSION: 1. No pulmonary was not detected. 2. Enlarged right hilar lymph nodes measure up to 1.5 cm in short axis. Findings may be infectious or inflammatory nature.
[2023-11-24] MEDS ORDERED: NITROGLYCERIN SL TABS 0.4 MG TAB SUBLINGUAL PRN (07:58)
[2023-11-24] MEDS: ASPIRIN 81 MG PO SCH (08:24)
[2023-11-24] MEDS: CLOPIDOGREL 75 MG TAB PO SCH (08:25)
[2023-11-24] MEDS: FUROSEMIDE 80 MG TAB PO SCH (08:25)
[2023-11-24] MEDS: METOPROLOL SUCCINATE (ER) 50 MG TAB.ER.24H PO SCH (08:25)
[2023-11-24] MEDS: FENOFIBRATE 160 MG TAB PO SCH (08:25)
[2023-11-24] MEDS: EZETIMIBE 10 MG TAB PO SCH (08:25)
[2023-11-24] MEDS: amLODIPine 2.5 MG TAB PO SCH (08:25)
[2023-11-24] MEDS: POTASSIUM CHLORIDE ER 20 MEQ TAB.ER PO SCH ×2 (08:26→20:27)
[2023-11-24] MEDS ORDERED: ISOSORBIDE MONONITRATE ER 30 MG TAB.ER.24H PO SCH (09:00)
--- NOTE | 2023-11-24 10:27 | P.CRDCN ---
History of Present Illness Consult date: 11/24/23 Consult reason: chest pain History of present illness: History of present illness: This is a 68-year-old male patient of Dr. Wiggins with past medical history of coronary artery disease status post PCI of the SVG to LAD as well as severe ischemic cardiomyopathy, hypertension, dyslipidemia, chronic kidney disease, valvular heart disease with aortic and mitral regurgitation. We have been asked to evaluate the patient for chest pain. Patient is seen today in the emergency center waiting for floor bed on the observation unit. Patient states that he was sitting on the side of his bed and getting his pajamas on when he developed shortness of breath he laid back on the pillow and he also had pain in the left side of his chest and went down his arm. He was feeling fine before this episode. He also had some lightheadedness when he gets up. He states he has been taking all of his medications as directed. He states he has gained 10 pounds since [place] time. He has minimal edema in the lower extremities. He states at the time of this evaluation that his breathing is better. No chest pain. Patient has been started on a heparin drip and Eliquis is on hold. Patient has an appointment with Dr. Chacon on December 13 to discuss AICD implantation. EKG sinus tachycardia with changes in V2 V3 compared to August is unchanged Chest x-ray: Cardiomegaly CTA of the chest revealed no pulmonary embolism. Enlarged right hilar lymph n ode up to 1.5 cm in short axis. WBC 5.1, hemoglobin 10, platelet count 156. D-dimer 0.81. Electrolytes are normal. BUN 23 creatinine 1.68. Troponin negative x 3. Home cardiac medications: Amlodipine 2.5 mg daily, Eliquis 2.5 mg twice daily, Plavix 75 mg daily, Zetia 10 mg daily, Lasix 80 mg daily, Imdur 30 mg daily, lisinopril 2.5 mg daily, Toprol-XL 50 mg daily, Nitrostat as needed, potassium chloride 20 mill equivalents twice daily. Cardiac catheterization history in October 2022 with thrombectomy of the SVG to LAD and stenting of the SVG to LAD. Lexiscan stress test performed 08/21/2023 revealed large fixed defects along the anterior posterior wall and at the cardiac apex compatible with prior infarcts. Global hypokinesia with low EF of 28%. Echocardiogram performed 05/09/2023 revealed EF of 35%, moderate MR, moderate AR. Review Of Systems: At the time of my evaluation: Constitutional: No fever, no chills. No weakness, fatigue or lethargy. EENT: No headache. No dizziness. Lungs: No shortness of breath, cough, no sputum production. No wheezing. Cardiovascular: No chest pain, no lower extremity edema. No palpitations. No paroxysmal nocturnal dyspnea. No orthopnea. No lightheadedness or dizziness. No syncopal episodes. Abdominal: No abdominal pain. No nausea, vomiting. No diarrhea. No constipation. No bloody or tarry stools. Musculoskeletal: No myalgias. No muscle weakness, no frequent falls. Integumentary: No wounds. No rash. No unusual bruising. Neurologic: No aphasia. No facial droop. No change in mentation. Physical examination: Gen: This is a 68-year-old male in no acute distress VS: reviewed HEENT: Head is atraumatic, normocephalic. Pupils equal, round. Sclerae is anicteric. NECK: Supple. No JVD. . LUNGS: Clear to auscultation. No wheezes or rhonchi. No intercostal retractions. HEART: Regular rate and rhythm. Systolic murmur at the right upper sternal border. ABDOMEN: Soft No tenderness. EXTREMITIES: No pedal edema. No calf tenderness. NEUROLOGICAL: Patient is awake, alert and oriented x3. Assessment: Chest pain, acute coronary syndrome ruled out by negative troponins Possible flash pulmonary edema resolved Hypotension History of coronary artery disease Severe ischemic cardiomyopathy Hypertension Dyslipidemia Chronic kidney disease Valvular heart disease with moderate MR and moderate AR Plan: Continue patient's home cardiac medications Discontinue heparin drip and resume patient on Eliquis Hold Imdur due to hypotension Obtain 2-D echocardiogram and Doppler study to assess cardiac structure and function Patient to follow-up as scheduled on December [address] Chacon regarding AICD Further recommendations to follow based upon clinical course Thank you kindly for this consultation. Nurse practitioner note has been reviewed, I agree with documented findings and plan of care. Patient was seen and examined. Past Medical History Past Medical History: Coronary Artery Disease (CAD), Chest Pain / Angina, COPD, GERD/Reflux, Hyperlipidemia, Hypertension, Myocardial Infarction (VA), Osteoarthritis (OA), Sleep Apnea/CPAP/BIPAP Additional Past Medical History / Comment(s): hiatal hernia, chronic back pain, L foot drop, numbness/tingling bilateral legs, HUSAM without device, states stents x7 Last Myocardial Infarction Date:: 11/11/22 History of Any Multi-Drug Resistant Organisms: None Reported Past Surgical History: Back Surgery, Cholecystectomy, Coronary Bypass/CABG, Heart Catheterization With Stent, Orthopedic Surgery Additional Past Surgical History / Comment(s): Back surg x 2 with cage. L tennis elbow surg. HEART STENTS X7. Colonoscopy. Lasik eye surgery bilaterally. Emergency Cabg [facility] Past Anesthesia/Blood Transfusion Reactions: No Reported Reaction Additional Past Anesthesia/Blood Transfusion Reaction / Comment(s): Pt received blood during CABG without reaction. Date of Last Stent Placement:: Oct 2022 Past Psychological History: Anxiety, Depression, PTSD Smoking Status: Current every day smoker Past Alcohol Use History: None Reported Past Drug Use History: None Reported - Past Family History Father Family Medical History: Coronary Artery Disease (CAD), Deep Vein Thrombosis ( DVT), GERD/Reflux, Hyperlipidemia Additional Family Medical History / Comment(s): Father of a VA in his 80's Mother Family Medical History: Coronary Artery Disease (CAD) Additional Family Medical History / Comment(s): Mother of a VA at the age of 76yrs. Sister(s) Family Medical History: Cancer Additional Family Medical History / Comment(s): Lung cancer. Medications and Allergies Home Medications Medication Instructions Recorded Confirmed Type HYDROcodone/APAP 10-325MG [[place] 1 tab PO QID PRN 02/22/15 11/24/23 History 10-325] rOPINIRole HCL [Requip] 0.25 mg PO HS 09/29/17 11/24/23 History Apixaban [Eliquis] 2.5 mg PO BID #60 tab 11/18/22 11/24/23 Rx Ezetimibe [Zetia] 10 mg PO DAILY #90 tab 11/18/22 11/24/23 Rx Nitroglycerin Sl Tabs [Nitrostat] 0.4 mg SUBLINGUAL Q5M PRN #25 tab 11/18/22 11/24/23 Rx Fenofibrate [Lofibra] 160 mg PO DAILY #30 tab 12/01/22 11/24/23 Rx Potassium Chloride ER [K-Dur 20] 20 meq PO BID 12/18/22 11/24/23 History Fluticasone Nasal [place] [Flonase 1 spray EA NOSTRIL BID PRN 01/27/23 11/24/23 History Nasal [place]] Metoprolol Succinate (ER) [Toprol 50 mg PO DAILY #30 tab 02/01/23 11/24/23 Rx XL] ALPRAZolam [Xanax] 2 mg PO TID PRN 03/15/23 11/24/23 History Clopidogrel [Plavix] 75 mg PO DAILY 08/21/23 11/24/23 History Cyclobenzaprine [Flexeril] 10 mg PO TID PRN 08/21/23 11/24/23 History Diclofenac Sodium Gel [Voltaren 1% 1 applic TOPICAL QID PRN 08/21/23 11/24/23 History Gel] Furosemide [Lasix] 80 mg PO DAILY 08/21/23 11/24/23 History Isosorbide Mononitrate ER [Imdur] 30 mg PO DAILY 08/21/23 11/24/23 History Omeprazole [PriLOSEC] 20 mg PO AC-BID 08/21/23 11/24/23 History allopurinoL [Zyloprim] 100 mg PO DAILY 08/21/23 11/24/23 History amLODIPine [Norvasc] 2.5 mg PO DAILY 08/21/23 11/24/23 History lisinopriL [Zestril] 2.5 mg PO DAILY 08/21/23 11/24/23 History Indomethacin [Indocin] 25 mg PO TID 11/24/23 11/24/23 History Lidocaine 5% Patch [Lidoderm] 1 patch TOPICAL DAILY 11/24/23 11/24/23 History Allergies Allergy/AdvReac Type Severity Reaction Status Date / Time latex Allergy Swelling Verified 11/24/23 07:12 atorvastatin [From Lipitor] AdvReac JOINT PAIN Verified 11/24/23 07:12 Physical Exam Vitals: Vital Signs Temp Pulse Resp BP Pulse Ox 11/24/23 05:30 70 18 105/65 11/24/23 05:00 72 15 100/66 11/24/23 04:30 71 18 112/62 92 L 11/24/23 04:00 77 16 100/59 93 L 11/24/23 03:30 69 16 102/59 11/24/23 03:00 67 18 105/66 11/24/23 02:30 74 22 91/49 11/24/23 02:00 73 16 103/57 11/24/23 01:30 71 18 100/54 11/24/23 01:00 73 20 98/60 98 11/24/23 00:41 98 11/24/23 00:30 73 20 99/69 97 11/24/23 00:23 74 17 104/62 96 11/24/23 00:12 20 11/23/23 23:42 98 11/23/23 23:36 97.8 F 118 H 118/64 Intake and Output 11/23/23 11/24/23 11/24/23 22:59 06:59 14:59 Other: Weight 102.058 kg Results 11/24/23 00:11 11/24/23 00:11 Cardiac Enzymes 11/24/23 11/24/23 Range/Units 00:11 00:11 AST 26 (17-59) U/L Troponin I 0.029 (0.000-0.034) ng/mL Coagulation 11/24/23 Range/Units 00:11 PT 11.4 (10.0-12.5) sec APTT 26.8 (22.0-30.0) sec CBC 11/24/23 Range/Units 00:11 WBC 5.1 (3.8-10.6) k/uL RBC 3.79 L (4.30-5.90) m/uL Hgb 10.0 L (13.0-17.5) gm/dL Hct 30.9 L (39.0-53.0) % Plt Count 156 (150-450) k/uL Comprehensive Metabolic Panel 11/24/23 Range/Units 00:11 Sodium 139 (137-145) mmol/L Potassium 3.5 (3.5-5.1) mmol/L Chloride 103 (98-107) mmol/L Carbon Dioxide 24 (22-30) mmol/L BUN 23 H (9-20) mg/dL Creatinine 1.68 H (0.66-1.25) mg/dL Glucose 101 H (74-99) mg/dL Calcium 9.3 (8.4-10.2) mg/dL AST 26 (17-59) U/L ALT 12 (4-49) U/L Alkaline Phosphatase 103 (38-126) U/L Total Protein 7.6 (6.3-8.2) g/dL Albumin 4.3 (3.5-5.0) g/dL Current Medications Generic Name Dose Route Start Last Admin Trade Name Freq PRN Reason Stop Dose Admin Heparin Sodium (Porcine) 0 unit 11/24/23 00:36 Heparin Sodium 1,000 Un/Ml (10ml Vl) IV PER PROTOCOL PRN Low PTT Protocol Heparin Sodium/Sodium Chloride 250 mls @ 10 mls/hr 11/24/23 00:45 11/24/23 01:11 25,000 unit/ Sodium Chloride IV 9.7983 units/kg/hr .Q24H ELIANA 10 mls/hr Administration Protocol 9.7983 UNITS/KG/HR Morphine Sulfate 4 mg 11/24/23 03:29 11/24/23 04:40 Morphine Sulfate 4 Mg/Ml Syringe IV 4 mg Q4HR PRN Administration Severe Pain (Scale 7 to 10) Naloxone HCl 0.2 mg 11/24/23 03:29 Naloxone 0.4 Mg/Ml 1 Ml Vial IV Q2M PRN Opioid Reversal Intake and Output 11/23/23 11/24/23 11/24/23 22:59 06:59 14:59 Other: Weight 102.058 kg 11/24/23 00:11 11/24/23 00:11
[2023-11-24] MEDS: APIXABAN 2.5 MG TABLET PO SCH ×2 (10:37→20:27)
--- NOTE | 2023-11-24 12:35 | CA ---
Transthoracic Echo Report Name: Israel Simmons Age: 68 Gender: M : 1955 Exam Date: 11/24/2023 09:56 Exam Location: [place] [facility] Ht (in): 69 Wt (lb): 225 Ordering Physician: Nati Bird Attending/Referring Phys: [id number], [employer] Instructor Tiffany Montero RD Procedure CPT: Indications: LVF Cardiac Hx: Technical Quality: Technically difficult study Contrast 1: Definity Total Dose (mL): 2 Contrast 2: Total Dose (mL): MEASUREMENTS (Male / Female) Normal Values 2D ECHO LV Diastolic Diameter PLAX 5.5 cm 4.2 - 5.9 / 3.9 - 5.3 cm LV Systolic Diameter PLAX 3.6 cm IVS Diastolic Thickness 1.3 cm 0.6 - 1.0 / 0.6 - 0.9 cm LVPW Diastolic Thickness 1.3 cm 0.6 - 1.0 / 0.6 - 0.9 cm LV Relative Wall Thickness 0.5 RV Internal Dim ED PLAX 3.0 cm LVOT Diameter 1.9 cm Aortic Root Diameter 2.9 cm LA Systolic Diameter LX 2.2 cm 3.0 - 4.0 / 2.7 - 3.8 cm LV Diastolic Volume MOD BP 40.4 cm??? 67 - 155 / 56 - 104 cm??? LV Systolic Volume MOD BP 24.1 cm??? 22 - 58 / 19 - 49 cm??? LV Ejection Fraction MOD BP 40.5 % >= 55 % LV Cardiac Index MOD BP 549.1 cm???/min???m??? LV Diastolic Volume MOD 4C 59.3 cm??? LV Systolic Volume MOD 4C 35.2 cm??? LV Ejection Fraction MOD 4C 40.8 % LV Cardiac Index MOD 4C 812.1 cm???/min???m??? LV Diastolic Length 4C 6.6 cm LV Systolic Length 4C 6.0 cm LV Diastolic Volume MOD 2C 25.8 cm??? LV Systolic Volume MOD 2C 16.2 cm??? LV Ejection Fraction MOD 2C 37.2 % LV Cardiac Index MOD 2C 322.0 cm???/min???m??? LV Diastolic Length 2C 6.1 cm LV Systolic Length 2C 6.1 cm LA Volume 45.3 cm??? 18 - 58 / 22 - 52 cm??? LA Volume Index 20.0 cm???/m??? 16 - 28 cm???/m??? DOPPLER AV Peak Velocity 96.1 cm/s AV Peak Gradient 3.7 mmHg AI Peak Velocity 311.9 cm/s AI Peak Gradient 38.9 mmHg AI Pressure Half Time 308.3 ms LVOT Peak Velocity 89.6 cm/s LVOT Peak Gradient 3.2 mmHg LVOT Velocity Time Integral 18.5 cm LVOT Stroke Volume 53.7 cm??? LVOT Stroke Volume Index 24.7 ml/m??? LVOT Cardiac Index 1803.5 cm???/min???m??? AV Area Cont Eq pk 2.7 cm??? MR Peak Velocity 408.6 cm/s MR Peak Gradient 66.8 mmHg Mitral E Point Velocity 123.8 cm/s Mitral A Point Velocity 54.7 cm/s Mitral E to A Ratio 2.3 MV Deceleration Time 169.8 ms TR Peak Velocity 272.6 cm/s TR Peak Gradient 29.7 mmHg Right Ventricular Systolic Press 34.7 mmHg PV Peak Velocity 68.0 cm/s PV Peak Gradient 1.8 mmHg FINDINGS Left Ventricle LV diameter is at upper limits of normal. Mild concentric LVH. Left ventricular ejection fraction is estimated at 30-35 %. Apical Akinesis. Septal hypokenesis. Right Ventricle Normal right ventricular size. RVSP= 35mmHg. Right Atrium Normal right atrial size. Left Atrium Normal left atrial size. Mitral Valve Structurally normal mitral valve. Aortic Valve Mild AV calcification. Moderate AI. No aortic stenosis. Tricuspid Valve Tricuspid valve not well visualized. Mild TR. Pulmonic Valve Pulmonic valve not well visualized. No pulmonic regurgitation. Pericardium Not well visualized. Aorta Normal size aortic root. CONCLUSIONS Dilated LV. Impaired LV systolic function. The EF is 3035% Moderate aortic insufficiency Technically difficult study for interpretation Previewed by: Dr. Frank Wiggins MD (Electronically Signed) Final Date: 24 November 2023 12:35
[2023-11-24 20:00] VITALS: RESP 16
[2023-11-24] MEDS: HYDROcodone/APAP 10-325MG 1 EACH TAB PO PRN (20:34)
[2023-11-24] MEDS: ALPRAZolam 1 MG TAB PO PRN (21:45)
[2023-11-25] MEDS: FUROSEMIDE 80 MG TAB PO SCH (08:08)
[2023-11-25] MEDS: FENOFIBRATE 160 MG TAB PO SCH (08:08)
[2023-11-25] MEDS: amLODIPine 2.5 MG TAB PO SCH (08:09)
[2023-11-25] MEDS: ASPIRIN 81 MG PO SCH (08:09)
[2023-11-25] MEDS: CLOPIDOGREL 75 MG TAB PO SCH (08:09)
[2023-11-25] MEDS: POTASSIUM CHLORIDE ER 20 MEQ TAB.ER PO SCH (08:09)
[2023-11-25] MEDS: METOPROLOL SUCCINATE (ER) 50 MG TAB.ER.24H PO SCH (08:10)
[2023-11-25] MEDS: EZETIMIBE 10 MG TAB PO SCH (08:10)
[2023-11-25] MEDS: HYDROcodone/APAP 10-325MG 1 EACH TAB PO PRN ×2 (08:10→14:33)
[2023-11-25 08:36] VITALS: BP 123/71; PULSE 73; TEMP 98.2
[2023-11-25] MEDS ORDERED: LIDOCAINE 4% PATCH TOPICAL SCH (09:00)
[2023-11-25] MEDS: ALPRAZolam 1 MG TAB PO PRN (10:40)
[2023-11-25] MEDS: APIXABAN 2.5 MG TABLET PO SCH (10:41)
--- NOTE | 2023-11-25 11:16 | P.PN ---
Subjective Progress Note Date: 11/25/23 Consult reason: chest pain History of present illness: History of present illness: This is a 68-year-old male patient of Dr. Wiggins with past medical history of coronary artery disease status post PCI of the SVG to LAD as well as severe ischemic cardiomyopathy, hypertension, dyslipidemia, chronic kidney disease, valvular heart disease with aortic and mitral regurgitation. We have been asked to evaluate the patient for chest pain. Patient is seen today in the emergency center waiting for floor bed on the observation unit. Patient states that he was sitting on the side of his bed and getting his pajamas on when he developed shortness of breath he laid back on the pillow and he also had pain in the left side of his chest and went down his arm. He was feeling fine before this episode. He also had some lightheadedness when he gets up. He states he has been taking all of his medications as directed. He states he has gained 10 pounds since [place] time. He has minimal edema in the lower extremities. He states at the time of this evaluation that his breathing is better. No chest pain. Patient has been started on a heparin drip and Eliquis is on hold. Patient has an appointment with Dr. Chacon on December 13 to discuss AICD implantation. EKG sinus tachycardia with changes in V2 V3 compared to August is unchanged Chest x-ray: Cardiomegaly CTA of the chest revealed no pulmonary embolism. Enlarged right hilar lymph node up to 1.5 cm in short axis. WBC 5.1, hemoglobin 10, platelet count 156. D-dimer 0.81. Electrolytes are normal. BUN 23 creatinine 1.68. Troponin negative x 3. Home cardiac medications: Amlodipine 2.5 mg daily, Eliquis 2.5 mg twice daily, Plavix 75 mg daily, Zetia 10 mg daily, Lasix 80 mg daily, Imdur 30 mg daily, lisinopril 2.5 mg daily, Toprol-XL 50 mg daily, Nitrostat as needed, potassium chloride 20 mill equivalents twice daily. Cardiac catheterization history in October 2022 with thrombectomy of the SVG to LAD and stenting of the SVG to LAD. Lexiscan stress test performed 08/21/2023 revealed large fixed defects along the anterior posterior wall and at the cardiac apex compatible with prior infarcts. Global hypokinesia with low EF of 28%. Echocardiogram performed 05/09/2023 revealed EF of 35%, moderate MR, moderate AR. 11/25 Patient states that he is feeling very well this morning. Blood pressure 123/71, heart rate in the 70s. Yesterday, Imdur was held due to low blood pressure readings which seem to be improved. Echocardiogram reveals EF of 30 to 35%, moderate aortic insufficiency, technically difficult study for interpretation. Physical examination: Gen: This is a 68-year-old male in no acute distress VS: reviewed HEENT: Head is atraumatic, normocephalic. Pupils equal, round. Sclerae is anicteric. LUNGS: Clear to auscultation. No wheezes or rhonchi. No intercostal ret ractions. HEART: Regular rate and rhythm. Systolic murmur at the right upper sternal border. Hide standing 362 follow-up CAT scan of the right till she is on that side yes EXTREMITIES: No pedal edema. No calf tenderness. NEUROLOGICAL: Patient is awake, alert and oriented x3. Assessment: Chest pain, acute coronary syndrome ruled out by negative troponins Possible flash pulmonary edema resolved Hypotension History of coronary artery disease Severe ischemic cardiomyopathy Hypertension Dyslipidemia Chronic kidney disease Valvular heart disease with moderate MR and moderate AR Plan: Continue patient's home cardiac medications Hold Imdur due to hypotension Patient is cleared for discharge and may follow-up with Dr. Wiggins in 1 week. Patient to follow-up as scheduled on December [address] Chacon regarding AICD Nurse practitioner note has been reviewed, I agree with documented findings and plan of care. Patient was seen and examined. Objective - Vital Signs Vital signs: Vital Signs Temp 98.2 F 11/25/23 07:00 Pulse 73 11/25/23 07:00 Resp 16 11/25/23 07:00 BP 123/71 11/25/23 07:00 Pulse Ox 95 11/25/23 07:00 FiO2 Intake & Output 11/24/23 11/25/23 11/25/23 18:59 06:59 18:59 Intake Total 90.167 Balance 90.167 Weight 106.2 kg Intake: Intake, IV Titration 90.167 Amount Heparin Sod,Pork in 0.45% 90.167 NaCl 25,000 unit In 0.45 % NaCl 1 250ml.bag @ 9. 7983 UNITS/KG/HR 10 mls/ hr IV .Q24H ELIANA Rx#: [id number] Oral 0 Other: # Voids 2 - Labs CBC & Chem 7: 11/24/23 00:11 11/24/23 00:11
--- NOTE | 2023-11-28 22:22 | HP ---
HISTORY AND PHYSICAL CHIEF COMPLAINT: Chest pain. HISTORY OF PRESENT ILLNESS: This is another admission for this 68-year-old white male with severe triple-vessel coronary artery disease and congestive heart failure. He is barely able to maintain at home. He developed chest pain, he came in to the emergency room. Vital signs were normal as were his troponins. REVIEW OF SYSTEMS: He denies syncope, current chest pain, palpitations, orthopnea, PND, etc. PAST MEDICAL HISTORY, FAMILY HISTORY AND PERSONAL AND SOCIAL HISTORY: All otherwise unchanged and unremarkable. MEDICATIONS: He is on numerous medications. PHYSICAL EXAMINATION: VITAL SIGNS: Blood pressure is 114/74 with a pulse of 79, respirations of 32, and he is afebrile. GENERAL: Appeared to be in no acute distress. SKIN: Dry and lymph nodes not enlarged. HEENT: Head, ears, eyes, nose, mouth, and throat were normal. NECK: Veins are not distended. Thyroid is not enlarged. CHEST: Clear. CARDIAC: Normal except for atrial fibrillation. ABDOMEN: Soft, nontender. EXTREMITIES: Normal. NEUROLOGICAL: He is intact. IMPRESSION: 1. Chest pain. 2. Unstable angina. 3. Coronary artery disease. 4. COPD. 5. Chronic congestive heart failure. PLAN: 1. Bed rest. 2. IV fluids. 3. Serial EKGs and enzymes. 4. Cardiology consult. MMODL / IJN: [id number] /
== END 2023-11-25 15:08 | disposition home or self-care (01) ==
LOC: EC 23:30 → 6NMEDSUR 11-24 03:24
PROVIDERS: ADMIT Family Medicine; ATTEND Family Medicine
DX: R07.9 Chest pain, unspecified (principal); I95.9 Hypotension, unspecified; I25.10 Atherosclerotic heart disease of native coronary artery without angina pectoris; J44.9 Chronic obstructive pulmonary disease, unspecified; E78.5 Hyperlipidemia, unspecified; K21.9 Gastro-esophageal reflux disease without esophagitis; G47.33 Obstructive sleep apnea (adult) (pediatric); F32.A Depression, unspecified; F41.9 Anxiety disorder, unspecified; I25.5 Ischemic cardiomyopathy; I12.9 Hypertensive chronic kidney disease with stage 1 through stage 4 chronic kidney disease, or unspecified chronic kidney disease; N18.9 Chronic kidney disease, unspecified; I08.0 Rheumatic disorders of both mitral and aortic valves; I25.2 Old myocardial infarction; F17.200 Nicotine dependence, unspecified, uncomplicated; Z95.5 Presence of coronary angioplasty implant and graft; Z79.01 Long term (current) use of anticoagulants; Z79.02 Long term (current) use of antithrombotics/antiplatelets; Z79.899 Other long term (current) drug therapy; Z91.040 Latex allergy status; Z82.49 Family history of ischemic heart disease and other diseases of the circulatory system
CPT/HCPCS: 96376 ×2; 96365; 96366; 96375; 99291; 36415; 93005; 85379; 83880; 80053; 83735; 84484; 85025; 85610; 85730; 71046; 71275; G0378 ×2; C8929; J2270; J1644 ×2; J1170; Q9967; 93306

== ENCOUNTER 2023-12-22 15:43 | Inpatient (IN) | payer MEDICARE, OTHER ==
[2023-12-22 16:33] LABS: Anisocytosis Slight; Basophils # (A) 0.1 k/uL (0-0.2); Basophils % (A) 1 %; Eosinophils # (A) 0.1 k/uL (0-0.7); Eosinophils % (A) 1 %; HCT 30.5 % (39.0-53.0); HGB 9.4 gm/dL (13.0-17.5); Hypochromasia Marked; Lymphocytes # (A) 1.6 k/uL (1.0-4.8); Lymphocytes % (A) 23 %; MCH 25.6 pg (25.0-35.0); MCHC 30.9 g/dL (31.0-37.0); MCV 82.9 fL (80.0-100.0); Mean Platelet Volume 10.1; Monocytes # (A) 0.5 k/uL (0-1.0); Monocytes % (A) 7 %; Neutrophils # (A) 4.6 k/uL (1.3-7.7); Neutrophils % (A) 65 %; Platelet Count 176 k/uL (150-450); RBC 3.68 m/uL (4.30-5.90); RDW 17.7 % (11.5-15.5)
[2023-12-22] MEDS ORDERED: MORPHINE SULFATE 4 MG/ML SYRINGE IV STA (16:40)
[2023-12-22 16:43] LABS: ALT 12 U/L (4-49); AST 33 U/L (17-59); African American GFR (CKD) 43 (>60 ml/min/1.73 sqM); Albumin 4.5 g/dL (3.5-5.0); Alkaline Phosphatase 121 U/L (38-126); Anion Gap 12 mmol/L; Blood Urea Nitrogen 27 mg/dL (9-20); Calcium 9.1 mg/dL (8.4-10.2); Carbon Dioxide 25 mmol/L (22-30); Chloride 102 mmol/L (98-107); Glucose 89 mg/dL (74-99); Non-African American GFR(CKD) 37 (>60 ml/min/1.73 sqM); Potassium 3.9 mmol/L (3.5-5.1); Sodium 139 mmol/L (137-145); Total Protein 7.9 g/dL (6.3-8.2)
[2023-12-22 16:51] LABS: NT-Pro-B-Type Natriuretic Pept 6310 pg/mL
[2023-12-22 16:54] LABS: INR 1.1 (<1.2); Partial Thromboplastin Time 25.9 sec (22.0-30.0); Prothrombin Time 11.4 sec (10.0-12.5)
--- NOTE | 2023-12-22 16:57 | XR ---
EXAMINATION TYPE: XR chest 2V DATE OF EXAM: 12/22/2023 4:18 PM CLINICAL INDICATION:Male, 68 years old with history of Chest Pain; [facility] COMPARISON: Chest radiographs from 11/24/2023 TECHNIQUE: XR chest 2V Frontal and lateral views of the chest. FINDINGS: Lungs/Pleura: Blunting of the right costophrenic angle. There is no evidence of pleural effusion, foc al consolidation, or pneumothorax. Pulmonary vascularity: Pulmonary vascular congestion. Heart/mediastinum: Cardiomediastinal silhouette is enlarged and stable. Musculoskeletal: Degenerative changes of the shoulder joints. IMPRESSION: Cardiomegaly, pulmonary vascular congestion and right pleural effusions. Correlate with BNP for conge stive heart failure.
[2023-12-22] MEDS: MORPHINE SULFATE 4 MG/ML SYRINGE IV STA ×2 (17:10→20:58)
[2023-12-22] MEDS: FUROSEMIDE 10 MG/ML 4 ML VIAL IV STA (17:15)
--- NOTE | 2023-12-22 17:18 | ED ---
Chest Pain HPI - General Chief Complaint: Chest Pain Stated Complaint: SOB,Chest Pain-hx of Heart Attack Time Seen by Provider: 12/22/23 16:14 Source: patient Mode of arrival: wheelchair Limitations: no limitations - History of Present Illness Initial Comments: Patient is a 68-year-old man with history of CAD, status post CABG and multiple stents. He states that he is getting pain similar to previous coronary pains. Patient states last night he developed pain around his left scapula which is where he often has pain related to his heart. The pain has been constant since that time. He has had associated dyspnea. He states that he gets that when he is developing congestive heart failure. When he was not improving by today he comes to have evaluation. MD Complaint: chest pain Onset/Timin -: hour(s) Onset: during rest Pain Location: other Pain Radiation: none Severity: moderate Quality: aching Consistency: constant Improves With: nothing Worsens With: nothing Anginal Symptoms: nausea, dyspnea Treatments Prior to Arrival: aspirin - Related Data Home Medications Medication Instructions Recorded Confirmed HYDROcodone/APAP 10-325MG [[place] 1 tab PO QID PRN 02/22/15 12/22/23 10-325] rOPINIRole HCL [Requip] 0.25 mg PO HS 09/29/17 12/22/23 Potassium Chloride ER [K-Dur 20] 20 meq PO BID 12/18/22 12/22/23 Fluticasone Nasal [place] [Flonase 1 spray EA NOSTRIL BID PRN 01/27/23 12/22/23 Nasal [place]] ALPRAZolam [Xanax] 2 mg PO TID PRN 03/15/23 12/22/23 Clopidogrel [Plavix] 75 mg PO DAILY 08/21/23 12/22/23 Cyclobenzaprine [Flexeril] 10 mg PO TID PRN 08/21/23 12/22/23 Diclofenac Sodium Gel [Voltaren 1% 1 applic TOPICAL QID PRN 08/21/23 12/22/23 Gel] Furosemide [Lasix] 80 mg PO DAILY 08/21/23 12/22/23 Isosorbide Mononitrate ER [Imdur] 30 mg PO DAILY 08/21/23 12/22/23 Omeprazole [PriLOSEC] 20 mg PO AC-BID 08/21/23 12/22/23 allopurinoL [Zyloprim] 100 mg PO DAILY 08/21/23 12/22/23 amLODIPine [Norvasc] 2.5 mg PO DAILY 08/21/23 12/22/23 lisinopriL [Zestril] 2.5 mg PO DAILY 08/21/23 12/22/23 Indomethacin [Indocin] 25 mg PO TID 11/24/23 12/22/23 Lidocaine 5% Patch [Lidoderm 5% 1 patch TOPICAL DAILY 11/24/23 12/22/23 Patch] Albuterol Inhaler [Ventolin Hfa 1 - 2 puff INHALATION RT-Q6H PRN 12/22/23 12/22/23 Inhaler] Previous Rx's Medication Instructions Recorded Apixaban [Eliquis] 2.5 mg PO BID #60 tab 11/18/22 Ezetimibe [Zetia] 10 mg PO DAILY #90 tab 11/18/22 Nitroglycerin Sl Tabs [Nitrostat] 0.4 mg SUBLINGUAL Q5M PRN #25 tab 11/18/22 Fenofibrate [Lofibra] 160 mg PO DAILY #30 tab 12/01/22 Metoprolol Succinate (ER) [Toprol 50 mg PO DAILY #30 tab 02/01/23 XL] Aspirin 81 mg PO DAILY #100 tab 12/24/23 Dapagliflozin Propanediol [Farxiga] 5 mg PO DAILY #30 tab 12/24/23 Spironolactone [Aldactone] 50 mg PO DAILY #30 tab 12/24/23 Allergies Allergy/AdvReac Type Severity Reaction Status Date / Time latex Allergy Swelling Verified 12/22/23 18:34 atorvastatin [From Lipitor] AdvReac JOINT PAIN Verified 12/22/23 18:34 Review of Systems ROS Statement: Those systems with pertinent positive or pertinent negative responses have been documented in the HPI. ROS Other: All systems not noted in ROS Statement are negative. Constitutional: Denies: fever, chills Respiratory: Reports: dyspnea. Denies: cough, wheezes, hemoptysis Cardiovascular: Reports: chest pain, orthopnea. Denies: palpitations, edema, syncope Gastrointestinal: Reports: nausea. Denies: abdominal pain, vomiting, diarrhea Genitourinary: Denies: dysuria, hematuria Musculoskeletal: Denies: back pain Skin: Denies: rash Neurological: Denies: headache, weakness, numbness EKG Findings - EKG Results: EKG: interpreted by ERMD, sinus rhythm (Rate 75 bpm) - Blocks, Lee, Hypertrophy, ST Abn: QRS axis and voltage: right axis deviation (+90 to +180) Repolarization changes or abnormalities: ST or T wave suggestive of ischemia - DC, Pacemaker, Normal: Myocardial infarction: lateral DC (old age or indeterminate) Past Medical History Past Medical History: Coronary Artery Disease (CAD), Chest Pain / Angina, COPD, GERD/Reflux, Hyperlipidemia, Hypertension, Myocardial Infarction (DC), Osteoarthritis (OA), Sleep Apnea/CPAP/BIPAP Additional Past Medical History / Comment(s): hiatal hernia, chronic back pain, L foot drop, numbness/tingling bilateral legs, HUSAM without device, states stents x7 Last Myocardial Infarction Date:: 11/11/22 History of Any Multi-Drug Resistant Organisms: None Reported Past Surgical History: Back Surgery, Cholecystectomy, Coronary Bypass/CABG, Heart Catheterization With Stent, Orthopedic Surgery Additional Past Surgical History / Comment(s): Back surg x 2 with cage. L tennis elbow surg. HEART STENTS X7. Colonoscopy. Lasik eye surgery bilaterally. Emergency Cabg [facility] Past Anesthesia/Blood Transfusion Reactions: No Reported Reaction Additional Past Anesthesia/Blood Transfusion Reaction / Comment(s): Pt received blood during CABG without reaction. Date of Last Stent Placement:: Oct 2022 Past Psychological History: Anxiety, Depression, PTSD Smoking Status: Current every day smoker Past Alcohol Use History: None Reported Past Drug Use History: None Reported - Past Family History Father Family Medical History: Coronary Artery Disease (CAD), Deep Vein Thrombosis (DVT), GERD/Reflux, Hyperlipidemia Additional Family Medical History / Comment(s): Father of a DC in his 80's Mother Family Medical History: Coronary Artery Disease (CAD) Additional Family Medical History / Comment(s): Mother of a DC at the age of 76yrs. Sister(s) Family Medical History: Cancer Additional Family Medical History / Comment(s): Lung cancer. General Exam Limitations: no limitations General appearance: alert, in no apparent distress Head exam: Present: atraumatic, normocephalic Eye exam: Present: normal appearance. Absent: scleral icterus, conjunctival injection ENT exam: Present: normal oropharynx Neck exam: Present: normal inspection Respiratory exam: Present: normal lung sounds bilaterally, rales (Bilateral bases). Absent: respiratory distress, wheezes, rhonchi, stridor, chest wall tenderness, accessory muscle use Cardiovascular Exam: Present: regular rate, normal rhythm, normal heart sounds. Absent: systolic murmur, diastolic murmur, rubs, gallop GI/Abdominal exam: Present: soft. Absent: distended, tenderness, guarding, rebound, rigid, mass Extremities exam: Present: normal inspection, normal capillary refill. Absent: pedal edema, calf tenderness Back exam: Present: normal inspection. Absent: CVA tenderness (R), CVA tenderness (L) Neurological exam: Present: alert Skin exam: Present: warm, dry, intact, normal color. Absent: rash Course Vital Signs 12/22/23 12/22/23 12/22/23 15:44 18:01 19:38 Temperature 98.7 F 97.8 F Pulse Rate 79 72 73 Respiratory 18 18 18 Rate Blood Pressure 120/73 114/82 106/77 O2 Sat by Pulse 96 94 L 97 Oximetry 12/22/23 12/22/23 12/22/23 20:00 21:03 22:00 Temperature Pulse Rate 70 78 81 Respiratory 23 24 16 Rate Blood Pressure 106/77 134/63 109/57 O2 Sat by Pulse 97 95 97 Oximetry Chest Pain MDM - MDM The patient had chest x-ray that I interpreted as negative for acute infiltrate or pneumothorax. There is vascular congestion consistent with CHF Was pt. sent in by a medical professional or institution (, PA, SR. DIRECTOR, urgent care, hospital, or fpc...) When possible be specific @ -[No] Did you speak to anyone other than the patient for history (EMS, parent, family, police, friend...)? What history was obtained from this source @ -[No] Did you review nursing and triage notes (agree or disagree)? Why? @ -[I reviewed and agree with nursing and triage notes] Were old charts reviewed (outside hosp., previous admission, EMS record, old EKG, old radiological studies, urgent care reports/EKG's, fpc records)? Report findings @ -[No old charts were reviewed] Differential Diagnosis (chest pain, altered mental status, abdominal pain women, abdominal pain men, vaginal bleeding, weakness, fever, dyspnea, syncope, headache, dizziness, GI bleed, back pain, seizure, CVA, palpatations, mental health, musculoskeletal)? @ -[Differential Chest Pain: Stable Angina, Unstable Angina, STEMI, NSTEMI Aortic Dissection, Pneumothorax, Musculoskeletal, Esophageal Spasm GERD, Cholecystitis, Pancreatitis, Zoster, this is not meant to be an all-inclusive list. EKG interpreted by me (3pts min.). @ -[I interpreted as above] X-rays interpreted by me (1pt min.). @ -I interpreted as above CT interpreted by me (1pt min.). @ -[None done] U/S interpreted by me (1pt. min.). @ -[None done] What testing was considered but not performed or refused? (CT, X-rays, U/S, labs)? Why? @ -[None] What meds were considered but not given or refused? Why? @ -[None] Did you discuss the management of the patient with other professionals (professionals i.e. , PA, SR. DIRECTOR, lab, RT, psych nurse, social science analyst, ball worker, teacher, recreation officer, case making machine operator)? Give summary @ -[Case discussed with Dr. Gee will admit the patient to have further treatment for exacerbation of CHF. Was smoking cessation discussed for >3mins.? @ -[No] Was critical care preformed (if so, how long)? @ -[No] Were there social determinants of health that impacted care today? How? (Homelessness, low income, unemployed, alcoholism, drug addiction, transportation, low edu. Level, literacy, decrease access to med. care, nursing home, rehab)? @ -[No] Was there de-escalation of care discussed even if they declined (Discuss DNR or withdrawal of care, Hospice)? DNR status @ -[No] What co-morbidities impacted this encounter? (DM, HTN, Smoking, COPD, CAD, Cancer, CVA, ARF, Chemo, Hep., AIDS, mental health diagnosis, sleep apnea, morbid obesity)? @ -[Hypertension, coronary artery disease, underlying congestive heart failure Was patient admitted / discharged? Hospital course, mention meds given and route, prescriptions, significant lab abnormalities, going to OR and other pertinent info. @ -[Patient is admitted the patient has medical treatment with nitrates, antihypertensives, diuretics, will have serial cardiac enzymes and telemetry monitoring with cardiology consultation Undiagnosed new problem with uncertain prognosis? @ -[No] Drug Therapy requiring intensive monitoring for toxicity (Heparin, Nitro, Insulin, Cardizem)? @ -[No] Were any procedures done? @ -[No] Diagnosis/symptom? @ -[Acute exacerbation of congestive heart failure Acute chest pain Acute, or Chronic, or Acute on Chronic? @ -[acute Uncomplicated (without systemic symptoms) or Complicated (systemic symptoms)? @ -[uncomplicated Side effects of treatment? @ -[No] Exacerbation, Progression, or Severe Exacerbation? @ -[No] Poses a threat to life or bodily function? How? (Chest pain, [place], DC, pneumonia, PE, COPD, DKA, ARF, appy, cholecystitis, CVA, Diverticulitis, Homicidal, Suicidal, threat to staff... and all critical care pts) @ -[Yes untreated congestive heart failure may progress to respiratory failure Disposition Clinical Impression: CHF exacerbation, Chest pain Disposition: ADMITTED IP TO THIS HOSP Condition: Fair Is patient prescribed a controlled substance at d/c from ED?: No
[2023-12-22] MEDS: HYDROcodone/APAP 10-325MG 1 EACH TAB PO ONE (19:52)
[2023-12-22] MEDS ORDERED: NITROGLYCERIN SL TABS 0.4 MG TAB SUBLINGUAL PRN (20:08)
[2023-12-22] MEDS: APIXABAN 2.5 MG TABLET PO SCH (20:56)
[2023-12-22] MEDS: POTASSIUM CHLORIDE ER 20 MEQ TAB.ER PO SCH (20:57)
[2023-12-22 22:28] VITALS: RESP 16
[2023-12-22] MEDS: ALPRAZolam 1 MG TAB PO PRN (23:24)
[2023-12-23] MEDS: HYDROcodone/APAP 10-325MG 1 EACH TAB PO PRN (02:19)
[2023-12-23] MEDS: PANTOPRAZOLE 40 MG TABLET PO SCH (06:21)
[2023-12-23] MEDS ORDERED: ASPIRIN 325 MG TAB PO SCH (09:00)
[2023-12-23] MEDS ORDERED: amLODIPine 2.5 MG TAB PO SCH (09:00)
[2023-12-23] MEDS: FUROSEMIDE 10 MG/ML 10 ML VIAL IV SCH (09:57)
[2023-12-23] MEDS: ISOSORBIDE MONONITRATE ER 30 MG TAB.ER.24H PO SCH (09:58)
[2023-12-23] MEDS: FENOFIBRATE 160 MG TAB PO SCH (09:58)
[2023-12-23] MEDS: CLOPIDOGREL 75 MG TAB PO SCH (09:58)
[2023-12-23] MEDS: SPIRONOLACTONE 25 MG TAB PO SCH (09:58)
[2023-12-23] MEDS: ASPIRIN 81 MG PO SCH (09:58)
[2023-12-23] MEDS: METOPROLOL SUCCINATE (ER) 50 MG TAB.ER.24H PO SCH (09:58)
[2023-12-23] MEDS: EZETIMIBE 10 MG TAB PO SCH (09:58)
--- NOTE | 2023-12-23 11:15 | HP ---
HISTORY AND PHYSICAL HISTORY OF PRESENT ILLNESS: This is another admission for this 68-year-old white male with severe and advanced coronary artery disease and chronic congestive heart failure. He goes in and out of heart failure. He started to become short of breath once again and started to drive to [facility] and had to stop. He called an ambulance and they would not take him to the hospital. He then drove himself here. In the emergency room, he was diagnosed with recurrent acute congestive heart failure. REVIEW OF SYSTEMS: He denies any fever or chills, hemoptysis, etc. Past medical history, family history, personal and social histories are all otherwise unremarkable or unchanged from all of his other recent admitting and discharge summaries. PHYSICAL EXAMINATION: VITAL SIGNS: Normal. HEENT: Head, ears, eyes, nose, mouth and throat are normal. CHEST: Demonstrated demonstrates poor breath sounds with scattered rales. CARDIAC: Demonstrates what sounds like a normal sinus rhythm. ABDOMEN: Soft, nontender. EXTREMITIES: Normal. NEUROLOGICAL: Intact. DIAGNOSES: Admitted to the hospital with diagnoses, 1. Acute on chronic congestive heart failure. 2. Coronary artery disease artery disease. 3. History of chronic obstructive pulmonary disease. 4. History of hypertension. PLAN: 1. Bedrest. 2. IV fluids. 3. Serial EKGs and enzymes. 4. Cardiology consult. MMODL / IJN: [id number] /
[2023-12-23 11:16] LABS: Chol/HDL Ratio 4.19 Ratio; LDL Cholesterol,Calculated 62.2 mg/dL (0.0-131.0)
--- NOTE | 2023-12-23 12:51 | PN ---
PROGRESS NOTE DATE OF SERVICE: 12/23/2023 CHIEF COMPLAINT: Acute on chronic congestive heart failure. HISTORY OF PRESENT ILLNESS: This gentleman is feeling a little bit better and less short of breath. He has been seen by Cardiology and he indicates that they are planning a procedure. REVIEW OF SYSTEMS: He is not as short of breath and he has had no chest pain. PHYSICAL EXAMINATION: CHEST: Quite clear now. There are only occasional rales. CARDIAC: Normal. ABDOMEN: Soft, nontender. IMPRESSION: Acute on chronic congestive heart failure. PLAN: 1. Continue with diuresis. 2. Await further guidelines from Cardiology. MMODL / IJN: [id number] /
--- NOTE | 2023-12-23 14:21 | P.CRDCN ---
History of Present Illness Consult date: 12/23/23 Consult reason: chest pain History of present illness: This is Sergo Olivares NP, I'm dictating on behalf of Dr. Chacon's H&P and A&P The patient was interviewed and examined. HPI: Patient is a pleasant 68-year-old male with a past medical history that includes CAD, COPD, GERD, hyperlipidemia, hypertension, HI, osteoarthritis, sleep apnea, and congestive heart failure who presents to the hospital with complaints of shortness of breath and chest discomfort yesterday. Patient reports that he had onset of pain and shortness of breath yesterday afternoon, and presented to the hospital because it felt similar to previous HI that the patient has had in the past. In the emergency department the patient had an EKG done which was negative for any obvious ST elevation, depression, or T wave changes. Patient's troponins have been negative, however chest x-ray was indicative of possible congestive heart failure. A BNP was checked and found to be greater than 6000. Patient was subsequently admitted for further evaluation from cardiology and treatment of congestive heart failure. Patient this morning reports that he is improved and his overall work of breathing, and states that his shortness of breath is better. Patient does not demonstrate any swelling in his bilateral lower extremities. Patient does have obvious JVD. ROS: [No fever, chills, or rigors] [no cough, phlegm, or expectoration] [no nausea, vomiting, or diarrhea] [no hematuria, dysuria] [no musculoskelatal complaints] [no strokes or seizures] [no skin lesions] EXAMINATION: GENERAL: Well-appearing, well-nourished and in no acute distress. NECK: Supple, JVD noted, no thyromegaly. LUNGS: Breath sounds clear to auscultation bilaterally. Respiration equal and unlabored. No wheezes, rales or rhonchi. HEART: Regular rate and rhythm without murmurs, rubs or gallops. S1 and S2 heard. EXTREMITIES: Normal range of motion, no edema. No clubbing or cyanosis. P eripheral pulses intact and strong. REVIEW OF LABS, ECG & MEDICAL DATA: LABS: White count 7, hemoglobin 9.4, platelets 176, sodium 139, potassium 3.9, BUN 27, creatinine 1.87, calcium 9.1, magnesium 2, troponin x 3-0.025, 0.027, 0.021, BNP 6310, triglycerides 119, cholesterol 113, LDL 62.2, HDL 27 EKG: Normal sinus rhythm with right axis deviation IMAGING: Chest x-ray dated 12/22/2023 shows cardiomegaly, pulmonary vascular congestion and right pleural effusions, correlate with BNP for congestive heart failure. VITALS: Temp 98.2, pulse 75, respirations 16, blood pressure 93/52, O2 saturation 95% on room air IMPRESSION: 1. Acute exacerbation congestive heart failure 2. Hypertension 3. Hyperlipidemia 4. COPD PLAN: Discontinue amlodipine. Discontinue potassium. Start spironolactone 50 mg daily. Start aspirin 81 mg daily. Will consider Jardiance starting tomorrow, will monitor patient's response to current medication changes. Continue metoprolol 50 mg daily, lisinopril 2.5 mg daily, Imdur 30 mg daily, Lasix 80 mg twice daily IV. Further recommendations based on patient's clinical course. Thank you for the consult and allowing us to participate in the care of this patient. Past Medical History Past Medical History: Coronary Artery Disease (CAD), Chest Pain / Angina, COPD, GERD/Reflux, Hyperlipidemia, Hypertension, Myocardial Infarction (HI), Osteoarthritis (OA), Sleep Apnea/CPAP/BIPAP Additional Past Medical History / Comment(s): hiatal hernia, chronic back pain, L foot drop, numbness/tingling bilateral legs, HUSAM without device, states stents x7 Last Myocardial Infarction Date:: 11/11/22 History of Any Multi-Drug Resistant Organisms: None Reported Past Surgical History: Back Surgery, Cholecystectomy, Coronary Bypass/CABG, Heart Catheterization With Stent, Orthopedic Surgery Additional Past Surgical History / Comment(s): Back surg x 2 with cage. L tennis elbow surg. HEART STENTS X7. Colonoscopy. Lasik eye surgery bilaterally. Emergency Cabg [facility] Past Anesthesia/Blood Transfusion Reactions: No Reported Reaction Additional Past Anesthesia/Blood Transfusion Reaction / Comment(s): Pt received blood during CABG without reaction. Date of Last Stent Placement:: Oct 2022 Past Psychological History: Anxiety, Depression, PTSD Smoking Status: Current every day smoker Past Alcohol Use History: None Reported Past Drug Use History: None Reported - Past Family History Father Family Medical History: Coronary Artery Disease (CAD), Deep Vein Thrombosis (DVT), GERD/Reflux, Hyperlipidemia Additional Family Medical History / Comment(s): Father of a HI in his 80's Mother Family Medical History: Coronary Artery Disease (CAD) Additional Family Medical History / Comment(s): Mother of a HI at the age of 76yrs. Sister(s) Family Medical History: Cancer Additional Family Medical History / Comment(s): Lung cancer. Medications and Allergies Home Medications Medication Instructions Recorded Confirmed Type HYDROcodone/APAP 10-325MG [[place] 1 tab PO QID PRN 02/22/15 12/22/23 History 10-325] rOPINIRole HCL [Requip] 0.25 mg PO HS 09/29/17 12/22/23 History Apixaban [Eliquis] 2.5 mg PO BID #60 tab 11/18/22 12/22/23 Rx Ezetimibe [Zetia] 10 mg PO DAILY #90 tab 11/18/22 12/22/23 Rx Nitroglycerin Sl Tabs [Nitrostat] 0.4 mg SUBLINGUAL Q5M PRN #25 tab 11/18/22 12/22/23 Rx Fenofibrate [Lofibra] 160 mg PO DAILY #30 tab 12/01/22 12/22/23 Rx Potassium Chloride ER [K-Dur 20] 20 meq PO BID 12/18/22 12/22/23 History Fluticasone Nasal [place] [Flonase 1 spray EA NOSTRIL BID PRN 01/27/23 12/22/23 History Nasal [place]] Metoprolol Succinate (ER) [Toprol 50 mg PO DAILY #30 tab 02/01/23 12/22/23 Rx XL] ALPRAZolam [Xanax] 2 mg PO TID PRN 03/15/23 12/22/23 History Clopidogrel [Plavix] 75 mg PO DAILY 08/21/23 12/22/23 History Cyclobenzaprine [Flexeril] 10 mg PO TID PRN 08/21/23 12/22/23 History Diclofenac Sodium Gel [Voltaren 1% 1 applic TOPICAL QID PRN 08/21/23 12/22/23 History Gel] Furosemide [Lasix] 80 mg PO DAILY 08/21/23 12/22/23 History Isosorbide Mononitrate ER [Imdur] 30 mg PO DAILY 08/21/23 12/22/23 History Omeprazole [PriLOSEC] 20 mg PO AC-BID 08/21/23 12/22/23 History allopurinoL [Zyloprim] 100 mg PO DAILY 08/21/23 12/22/23 History amLODIPine [Norvasc] 2.5 mg PO DAILY 08/21/23 12/22/23 History lisinopriL [Zestril] 2.5 mg PO DAILY 08/21/23 12/22/23 History Indomethacin [Indocin] 25 mg PO TID 11/24/23 12/22/23 History Lidocaine 5% Patch [Lidoderm] 1 patch TOPICAL DAILY 11/24/23 12/22/23 History Albuterol Inhaler [Ventolin Hfa 1 - 2 puff INHALATION RT-Q6H PRN 12/22/23 12/22/23 History Inhaler] Allergies Allergy/AdvReac Type Severity Reaction Status Date / Time latex Allergy Swelling Verified 12/22/23 18:34 atorvastatin [From Lipitor] AdvReac JOINT PAIN Verified 12/22/23 18:34 Physical Exam Vitals: Vital Signs Temp Pulse Pulse Resp BP BP BP 12/23/23 09:36 12/23/23 08:38 98.2 F 75 16 93/52 12/23/23 08:31 92/55 12/23/23 01:56 98.1 F 73 16 109/67 12/22/23 22:30 98.7 F 72 16 105/59 12/22/23 22:00 81 16 109/57 12/22/23 21:03 78 24 134/63 12/22/23 20:00 70 23 106/77 12/22/23 19:38 73 18 106/77 12/22/23 18:01 97.8 F 72 18 114/82 12/22/23 15:44 98.7 F 79 18 120/73 Pulse Ox 12/23/23 09:36 95 12/23/23 08:38 95 12/23/23 08:31 12/23/23 01:56 92 L 12/22/23 22:30 93 L 12/22/23 22:00 97 12/22/23 21:03 95 12/22/23 20:00 97 12/22/23 19:38 97 12/22/23 18:01 94 L 12/22/23 15:44 96 Intake and Output 12/22/23 12/23/23 12/23/23 22:59 06:59 14:59 Intake Total 240 Balance 240 Intake: Oral 240 Other: # Voids 3 Weight 99.79 kg 98.7 kg Results 12/22/23 16:23 12/22/23 16:23 Cardiac Enzymes 12/22/23 12/22/23 12/22/23 Range/Units 16:23 16:23 20:21 AST 33 (17-59) U/L Troponin I 0.025 0.027 (0.000-0.034) ng/mL 12/22/23 Range/Units 23:12 AST (17-59) U/L Troponin I 0.021 (0.000-0.034) ng/mL Coagulation 12/22/23 Range/Units 16:23 PT 11.4 (10.0-12.5) sec APTT 25.9 (22.0-30.0) sec Lipids 12/22/23 Range/Units 16:43 Triglycerides 119.00 (0.00-149.00) mg/dL Cholesterol 113.00 (0.00-200.00) mg/dL HDL Cholesterol 27.00 L (40.00-60.00) mg/dL Cholesterol/HDL Ratio 4.19 Ratio CBC 12/22/23 Range/Units 16:23 WBC 7.0 (3.8-10.6) k/uL RBC 3.68 L (4.30-5.90) m/uL Hgb 9.4 L (13.0-17.5) gm/dL Hct 30.5 L (39.0-53.0) % Plt Count 176 (150-450) k/uL Comprehensive Metabolic Panel 12/22/23 Range/Units 16:23 Sodium 139 (137-145) mmol/L Potassium 3.9 (3.5-5.1) mmol/L Chloride 102 (98-107) mmol/L Carbon Dioxide 25 (22-30) mmol/L BUN 27 H (9-20) mg/dL Creatinine 1.87 H (0.66-1.25) mg/dL Glucose 89 (74-99) mg/dL Calcium 9.1 (8.4-10.2) mg/dL AST 33 (17-59) U/L ALT 12 (4-49) U/L Alkaline Phosphatase 121 (38-126) U/L Total Protein 7.9 (6.3-8.2) g/dL Albumin 4.5 (3.5-5.0) g/dL Current Medications Generic Name Dose Route Start Last Admin Trade Name Freq PRN Reason Stop Dose Admin Hydrocodone Bitart/Acetaminophen 1 each 12/22/23 22:10 12/23/23 09:17 Hydrocodone/Apap 10-325mg 1 Each Tab PO 1 each Q6HR PRN Administration Pain Alprazolam 2 mg 12/22/23 20:35 12/23/23 09:59 Alprazolam 1 Mg Tab PO 2 mg TID PRN Administration Anxiety Apixaban 2.5 mg 12/22/23 21:00 12/23/23 09:58 Apixaban 2.5 Mg Tablet PO 2.5 mg BID ELIANA Administration Protocol Aspirin 81 mg 12/23/23 09:00 12/23/23 09:58 Aspirin 81 Mg PO 81 mg DAILY ELIANA Administration Clopidogrel Bisulfate 75 mg 12/23/23 09:00 12/23/23 09:58 Clopidogrel 75 Mg Tab PO 75 mg DAILY ELIANA Administration Ezetimibe 10 mg 12/23/23 09:00 12/23/23 09:58 Ezetimibe 10 Mg Tab PO 10 mg DAILY ELIANA Administration Fenofibrate 160 mg 12/23/23 09:00 12/23/23 09:58 Fenofibrate 160 Mg Tab PO 160 mg DAILY ELIANA Administration Furosemide 80 mg 12/23/23 09:00 12/23/23 09:57 Furosemide 10 Mg/Ml 10 Ml Vial IV 80 mg BID ELIANA Administration Isosorbide Mononitrate 30 mg 12/23/23 09:00 12/23/23 09:58 Isosorbide Mononitrate Er 30 Mg Tab.Er.24h PO 30 mg DAILY [facility] Administration Lidocaine 1 patch 12/23/23 09:00 Lidocaine 4% Patch TOPICAL DAILY [facility] Lisinopril 2.5 mg 12/23/23 09:00 12/23/23 09:58 Lisinopril 2.5 Mg Tab PO 2.5 mg DAILY ELIANA Administration Metoprolol Succinate 50 mg 12/23/23 09:00 12/23/23 09:58 Metoprolol Succinate (Er) 50 Mg Tab.Er.24h PO 50 mg DAILY ELIANA Administration Nitroglycerin 0.4 mg 12/22/23 20:08 Nitroglycerin Sl Tabs 0.4 Mg Tab SUBLINGUAL Q5M PRN Chest Pain Pantoprazole Sodium 40 mg 12/23/23 07:30 12/23/23 06:21 Pantoprazole 40 Mg Tablet PO 40 mg AC-[id number] ELIANA Administration Ropinirole HCl 0.25 mg 12/22/23 21:00 12/22/23 20:56 Ropinirole Hcl 0.25 Mg Tab PO 0.25 mg HS ELIANA Administration Spironolactone 50 mg 12/23/23 09:00 12/23/23 09:58 Spironolactone 25 Mg Tab PO 50 mg DAILY ELIANA Administration Intake and Output 12/22/23 12/23/23 12/23/23 22:59 06:59 14:59 Intake Total 240 Balance 240 Intake: Oral 240 Other: # Voids 3 Weight 99.79 kg 98.7 kg 12/22/23 16:23 12/22/23 16:23
[2023-12-23] MEDS: LIDOCAINE 4% PATCH TOPICAL SCH (15:48)
[2023-12-23] MEDS ORDERED: ONDANSETRON 4 MG/2 ML VIAL IVP PRN (18:33)
[2023-12-24 08:09] VITALS: BP 104/69; PULSE 78; TEMP 98.2
--- NOTE | 2023-12-24 08:26 | P.PN ---
Subjective Progress Note Date: 12/24/23 This is Sergo Olivares NP, I'm dictating on behalf of Dr. Chacon's H&P and A&P. Patient was interviewed and examined. Patient is a pleasant 68-year-old male who presented to the hospital with congestive heart failure exacerbation. Patient is morning states that he is feeling much better. He states he is not having any further chest pain, and is not feeling short of breath anymore. Patient is examined sitting up at the bedside eating breakfast. Nursing reports the patient had a good night and has tolerated the addition of spironolactone to his current medication regimen. GENERAL: Well-appearing, well-nourished and in no acute distress. NECK: Supple without JVD or thyromegaly. LUNGS: Breath sounds clear to auscultation bilaterally. Respiration equal and unlabored. No wheezes, rales or rhonchi. HEART: Regular rate and rhythm without murmurs, rubs or gallops. S1 and S2 heard. EXTREMITIES: Normal range of motion, no edema. No clubbing or cyanosis. Peripheral pulses intact and strong. VITALS: Temp 98.2, pulse 78, respirations 16, blood pressure 104/69, O2 saturation 98% on room air TELEMETRY: Normal sinus rhythm LABS: No new labs since 12/22/2023 IMPRESSION: 1. Acute exacerbation congestive heart failure 2. Hypertension 3. Hyperlipidemia 4. COPD PLAN: Discontinue IV Lasix. Start Lasix 80 mg p.o. daily. Start Jardiance 5 mg daily. Monitor patient through the morning, if he continues to do well by lunchtime, may be discharged from a cardiology standpoint. Thank you for allowing us to participate in the care of this patient. Objective - Vital Signs Vital signs: Vital Signs Temp 98.2 F 12/24/23 07:48 Pulse 78 12/24/23 07:48 Resp 16 12/24/23 07:48 BP 104/69 12/24/23 07:48 Pulse Ox 98 12/24/23 07:48 FiO2 Intake & Output 12/23/23 12/24/23 12/24/23 18:59 06:59 18:59 Intake Total 740 Balance 740 Weight 102 kg Intake: Oral 740 Other: # Voids 1 1 - Labs CBC & Chem 7: 12/22/23 16:23 12/22/23 16:23 Labs: Abnormal Lab Results - Last 24 Hours (Table) 12/22/23 Range/Units 16:43 HDL Cholesterol 27.00 L (40.00-60.00) mg/dL
[2023-12-24] MEDS ORDERED: HYDROcodone/APAP 10-325MG 1 EACH TAB PO PRN (09:49)
[2023-12-24] MEDS: DAPAGLIFLOZIN PROPANEDIOL 5 MG TABLET PO SCH (11:17)
[2023-12-24] MEDS: FUROSEMIDE 80 MG TAB PO SCH (11:17)
[2023-12-24 12:02] LABS: Anisocytosis Slight; Basophils # (A) 0.1 k/uL (0-0.2); Basophils % (A) 1 %; Eosinophils # (A) 0.1 k/uL (0-0.7); Eosinophils % (A) 1 %; HCT 31.2 % (39.0-53.0); HGB 9.4 gm/dL (13.0-17.5); Hypochromasia Marked; Lymphocytes # (A) 1.5 k/uL (1.0-4.8); Lymphocytes % (A) 25 %; MCH 25.2 pg (25.0-35.0); MCHC 30.1 g/dL (31.0-37.0); MCV 83.6 fL (80.0-100.0); Mean Platelet Volume 10.1; Monocytes # (A) 0.4 k/uL (0-1.0); Monocytes % (A) 7 %; Neutrophils # (A) 3.8 k/uL (1.3-7.7); Neutrophils % (A) 63 %; Platelet Count 168 k/uL (150-450); RBC 3.73 m/uL (4.30-5.90); RDW 17.8 % (11.5-15.5); WBC 6.1 k/uL (3.8-10.6)
[2023-12-24 12:21] LABS: ALT 11 U/L (4-49); AST 31 U/L (17-59); African American GFR (CKD) 45 (>60 ml/min/1.73 sqM); Albumin 4.4 g/dL (3.5-5.0); Albumin/Globulin Ratio 1.3; Alkaline Phosphatase 96 U/L (38-126); Anion Gap 10 mmol/L; Blood Urea Nitrogen 34 mg/dL (9-20); Calcium 9.3 mg/dL (8.4-10.2); Carbon Dioxide 27 mmol/L (22-30); Chloride 100 mmol/L (98-107); Globulin 3.4 g/dL; Glucose 100 mg/dL (74-99); Non-African American GFR(CKD) 39 (>60 ml/min/1.73 sqM); Potassium 4.2 mmol/L (3.5-5.1); Sodium 137 mmol/L (137-145); Total Bilirubin 1.5 mg/dL (0.2-1.3); Total Protein 7.8 g/dL (6.3-8.2)
--- NOTE | 2023-12-25 07:48 | DS ---
DISCHARGE SUMMARY CHIEF COMPLAINT: Acute congestive heart failure. HISTORY OF PRESENT ILLNESS AND PHYSICAL EXAM: Details of this man's history and physical can be found in the initial workup. LABORATORY STUDIES: While he is in the hospital, he had laboratory studies, details of which can be found in the laboratory section of his chart. COURSE IN THE HOSPITAL: After admission, he was placed on bedrest and started on intravenous fluids and diuresis. He was seen by Cardiology. They felt that they had nothing further to offer. It was noted the patient's hemoglobin was low at 9.4, and his GFR was down to 37, and it was planned that he would undergo further evaluation, but he requested to be discharged due to a personal family matter. FINAL DIAGNOSES: 1. Acute congestive heart failure. 2. Chronic congestive heart failure. 3. Chronic obstructive pulmonary disease. 4. Coronary artery disease. 5. Anemia. 6. Renal failure. OPERATIONS: None. CONSULTATION: Cardiology. He is improved. MMDEYANIRA / CALLI: [id number] /
[2023-12-25] MEDS ORDERED: FUROSEMIDE 80 MG TAB PO SCH (09:00)
[2023-12-25] MEDS ORDERED: allopurinoL 100 MG TAB PO SCH (09:00)
== END 2023-12-24 11:25 | disposition home or self-care (01) | DRG 293 ==
LOC: EC 15:43 → 6NMEDSUR 20:10
PROVIDERS: ADMIT Family Medicine; ATTEND Family Medicine
DX: I11.0 Hypertensive heart disease with heart failure (principal); I25.10 Atherosclerotic heart disease of native coronary artery without angina pectoris; F43.10 Post-traumatic stress disorder, unspecified; I50.9 Heart failure, unspecified; F17.210 Nicotine dependence, cigarettes, uncomplicated; D64.9 Anemia, unspecified; E78.5 Hyperlipidemia, unspecified; I25.2 Old myocardial infarction; G89.29 Other chronic pain; G47.33 Obstructive sleep apnea (adult) (pediatric); M21.372 Foot drop, left foot; N19 Unspecified kidney failure; J44.9 Chronic obstructive pulmonary disease, unspecified; Z79.01 Long term (current) use of anticoagulants; Z79.02 Long term (current) use of antithrombotics/antiplatelets; Z79.899 Other long term (current) drug therapy; Z82.49 Family history of ischemic heart disease and other diseases of the circulatory system; Z95.1 Presence of aortocoronary bypass graft; Z95.5 Presence of coronary angioplasty implant and graft; Z91.040 Latex allergy status; Z88.8 Allergy status to other drugs, medicaments and biological substances; I25.110 Atherosclerotic heart disease of native coronary artery with unstable angina pectoris; K21.9 Gastro-esophageal reflux disease without esophagitis; G47.30 Sleep apnea, unspecified; Z79.82 Long term (current) use of aspirin; Z79.84 Long term (current) use of oral hypoglycemic drugs; K44.9 Diaphragmatic hernia without obstruction or gangrene; Z90.49 Acquired absence of other specified parts of digestive tract; M54.9 Dorsalgia, unspecified
CPT/HCPCS: 36415; 71046; 80053; 80061; 83735; 83880; 84484; 85025; 85610; 85730; 93005; 94760; 96374; 96375; 96376; 99285

== ENCOUNTER 2024-01-13 05:09 | Inpatient (IN) | payer MEDICARE, OTHER ==
--- NOTE | 2024-01-13 05:48 | ED ---
Chest Pain HPI - General Chief Complaint: Chest Pain Stated Complaint: Difficulty Breathing, Chest Pain Time Seen by Provider: 01/13/24 05:15 Source: patient Mode of arrival: wheelchair Limitations: no limitations - History of Present Illness Initial Comments: This patient is a 68-year-old male with history of CHF and CAD who states he has been having symptoms similar to his previous anginal pains. He indicates the chest and pain radiating to the back into the neck. I states pain has been going on for 2 days, has been intermittent, and has been associated with dyspnea. MD Complaint: chest pain Onset/Timin -: hour(s) Onset: during rest Pain Location: left chest Pain Radiation: back, neck Severity scale (1-10): 7 Quality: aching Consistency: constant Improves With: nothing Worsens With: nothing Anginal Symptoms: dyspnea Treatments Prior to Arrival: none - Related Data Home Medications Medication Instructions Recorded Confirmed HYDROcodone/APAP 10-325MG [[place] 1 tab PO QID PRN 02/22/15 01/13/24 10-325] rOPINIRole HCL [Requip] 0.25 mg PO HS 09/29/17 01/13/24 Potassium Chloride ER [K-Dur 20] 20 meq PO BID 12/18/22 01/13/24 Fluticasone Nasal [place] [Flonase 1 spray EA NOSTRIL BID PRN 01/27/23 01/13/24 Nasal [place]] ALPRAZolam [Xanax] 2 mg PO TID PRN 03/15/23 01/13/24 Clopidogrel [Plavix] 75 mg PO DAILY 08/21/23 01/13/24 Cyclobenzaprine [Flexeril] 10 mg PO TID PRN 08/21/23 01/13/24 Diclofenac Sodium Gel [Voltaren 1% 1 applic TOPICAL QID PRN 08/21/23 01/13/24 Gel] Furosemide [Lasix] 80 mg PO DAILY 08/21/23 01/13/24 Isosorbide Mononitrate ER [Imdur] 30 mg PO DAILY 08/21/23 01/13/24 Omeprazole [PriLOSEC] 20 mg PO AC-BID 08/21/23 01/13/24 allopurinoL [Zyloprim] 100 mg PO DAILY 08/21/23 01/13/24 amLODIPine [Norvasc] 2.5 mg PO DAILY 08/21/23 01/13/24 lisinopriL [Zestril] 2.5 mg PO DAILY 08/21/23 01/13/24 Lidocaine 5% Patch [Lidoderm 5% 1 patch TRANSDERM DAILY 11/24/23 01/13/24 Patch] Albuterol Inhaler [Ventolin Hfa 1 - 2 puff INHALATION RT-Q6H PRN 12/22/23 01/13/24 Inhaler] Nitroglycerin Sl Tabs [Nitrostat] 0.4 mg SL Q5M PRN 01/13/24 01/13/24 Previous Rx's Medication Instructions Recorded Apixaban [Eliquis] 2.5 mg PO BID #60 tab 11/18/22 Ezetimibe [Zetia] 10 mg PO DAILY #90 tab 11/18/22 Fenofibrate [Lofibra] 160 mg PO DAILY #30 tab 12/01/22 Metoprolol Succinate (ER) [Toprol 50 mg PO DAILY #30 tab 02/01/23 XL] Aspirin 81 mg PO DAILY #100 tab 12/24/23 Dapagliflozin Propanediol [Farxiga] 5 mg PO DAILY #30 tab 12/24/23 Spironolactone [Aldactone] 50 mg PO DAILY #30 tab 12/24/23 Allergies Allergy/AdvReac Type Severity Reaction Status Date / Time latex Allergy Swelling Verified 12/22/23 18:34 atorvastatin [From Lipitor] AdvReac JOINT PAIN Verified 12/22/23 18:34 Review of Systems ROS Statement: Those systems with pertinent positive or pertinent negative responses have been documented in the HPI. ROS Other: All systems not noted in ROS Statement are negative. Constitutional: Denies: fever, chills Respiratory: Denies: cough, dyspnea Cardiovascular: Reports: chest pain. Denies: palpitations Gastrointestinal: Denies: abdominal pain, nausea, vomiting, diarrhea Musculoskeletal: Denies: back pain Skin: Denies: rash Neurological: Denies: headache, weakness EKG Findings - EKG Results: EKG: interpreted by RYANNE, sinus rhythm (Rate 82 bpm) - OK, Pacemaker, Normal: Myocardial infarction: inferior OK (old age indeterminate), anterior OK (old age or indeterminate) Past Medical History Past Medical History: Coronary Artery Disease (CAD), Chest Pain / Angina, COPD, GERD/Reflux, Hyperlipidemia, Hypertension, Myocardial Infarction (OK), Osteoarthritis (OA), Sleep Apnea/CPAP/BIPAP Additional Past Medical History / Comment(s): hiatal hernia, chronic back pain, L foot drop, numbness/tingling bilateral legs, HUSAM without device, states stents x7 Last Myocardial Infarction Date:: 11/11/22 History of Any Multi-Drug Resistant Organisms: None Reported Past Surgical History: Back Surgery, Cholecystectomy, Coronary Bypass/CABG, Heart Catheterization With Stent, Orthopedic Surgery Additional Past Surgical History / Comment(s): Back surg x 2 with cage. L tennis elbow surg. HEART STENTS X7. Colonoscopy. Lasik eye surgery bilaterally. Emergency Cabg [facility] Past Anesthesia/Blood Transfusion Reactions: No Reported Reaction Additional Past Anesthesia/Blood Transfusion Reaction / Comment(s): Pt received blood during CABG without reaction. Date of Last Stent Placement:: Oct 2022 Past Psychological History: Anxiety, Depression, PTSD Smoking Status: Current every day smoker Past Alcohol Use History: None Reported Past Drug Use History: None Reported - Past Family History Father Family Medical History: Coronary Artery Disease (CAD), Deep Vein Thrombosis (DVT), GERD/Reflux, Hyperlipidemia Additional Family Medical History / Comment(s): Father of a OK in his 80's Mother Family Medical History: Coronary Artery Disease (CAD) Additional Family Medical History / Comment(s): Mother of a OK at the age of 76yrs. Sister(s) Family Medical History: Cancer Additional Family Medical History / Comment(s): Lung cancer. General Exam Limitations: no limitations General appearance: alert, in no apparent distress Head exam: Present: atraumatic, normocephalic Eye exam: Present: normal appearance. Absent: scleral icterus, conjunctival injection Neck exam: Present: normal inspection Respiratory exam: Present: normal lung sounds bilaterally. Absent: respiratory distress, wheezes, rales, rhonchi, stridor, accessory muscle use Cardiovascular Exam: Present: regular rate, normal rhythm, normal heart sounds. Absent: systolic murmur, diastolic murmur, rubs, gallop GI/Abdominal exam: Present: soft. Absent: distended, tenderness, guarding, rebound, rigid, mass Extremities exam: Present: normal inspection, normal capillary refill. Absent: pedal edema, calf tenderness Back exam: Present: normal inspection. Absent: CVA tenderness (R), CVA tenderness (L) Neurological exam: Present: alert Skin exam: Present: warm, dry, intact, normal color. Absent: rash Course Vital Signs 01/13/24 01/13/24 01/13/24 05:10 06:26 08:00 Temperature 98 F 97.9 F Pulse Rate 91 72 74 Respiratory 20 19 18 Rate Blood Pressure 127/77 116/72 113/72 O2 Sat by Pulse 94 L 98 99 Oximetry Chest Pain MDM - MDM The patient had chest x-ray that I interpreted as showing cardiomegaly without overt congestive heart failure, no pneumothorax, no infiltrate Was pt. sent in by a medical professional or institution (, PA, [employer]CTOR, urgent care, hospital, or intermediate...) When possible be specific @ -[No] Did you speak to anyone other than the patient for history (EMS, parent, family, police, friend...)? What history was obtained from this source @ -[No] Did you review nursing and triage notes (agree or disagree)? Why? @ -[I reviewed and agree with nursing and triage notes] Were old charts reviewed (outside hosp., previous admission, EMS record, old EKG, old radiological studies, urgent care reports/EKG's, intermediate records)? Report findings @ -' Yes, old charts were reviewed] Differential Diagnosis (chest pain, altered mental status, abdominal pain women, abdominal pain men, vaginal bleeding, weakness, fever, dyspnea, syncope, headache, dizziness, GI bleed, back pain, seizure, CVA, palpatations, mental health, musculoskeletal)? @ -[Differential Chest Pain: Stable Angina, Unstable Angina, STEMI, NSTEMI Aortic Dissection, Pneumothorax, Musculoskeletal, Esophageal Spasm GERD, Cholecystitis, Pancreatitis, Zoster, this is not meant to be an all-inclusive list. EKG interpreted by me (3pts min.). @ -[I interpreted as above] X-rays interpreted by me (1pt min.). @ -[I interpreted as above CT interpreted by me (1pt min.). @ -[None done] U/S interpreted by me (1pt. min.). @ -[None done] What testing was considered but not performed or refused? (CT, X-rays, U/S, labs)? Why? @ -[None] What meds were considered but not given or refused? Why? @ -[None] Did you discuss the management of the patient with other professionals (professionals i.e. , PA, [employer], lab, RT, psych nurse, social services coordinator, bill checker, teacher, senior administrative services officer, correctional counselor/case manager)? Give summary @ -[Case discussed with admitting physician and treatment recommendations incorporated Was smoking cessation discussed for >3mins.? @ -[No] Was critical care preformed (if so, how long)? @ -[No] Were there social determinants of health that impacted care today? How? (Homelessness, low income, unemployed, alcoholism, drug addiction, transportation, low edu. Level, literacy, decrease access to med. care, senior care, rehab)? @ -[No] Was there de-escalation of care discussed even if they declined (Discuss DNR or withdrawal of care, Hospice)? DNR status @ -[No] What co-morbidities impacted this encounter? (DM, HTN, Smoking, COPD, CAD, Cancer, CVA, ARF, Chemo, Hep., AIDS, mental health diagnosis, sleep apnea, morbid obesity)? @ -[Underlying coronary artery disease, hypertension, previous bypass surgery Was patient admitted / discharged? Hospital course, mention meds given and route, prescriptions, significant lab abnormalities, going to OR and other pertinent info. @ -[The patient is admitted to have further telemetry monitoring, cardiac enzymes, cardiology consultation Undiagnosed new problem with uncertain prognosis? @ -[No] Drug Therapy requiring intensive monitoring for toxicity (Heparin, Nitro, Insulin, Cardizem)? @ -[No] Were any procedures done? @ -[No] Diagnosis/symptom? @ -[Acute chest pain Acute exacerbation of congestive heart failure Acute, or Chronic, or Acute on Chronic? @ -[As above Uncomplicated (without systemic symptoms) or Complicated (systemic symptoms)? @ -[Uncomplicated Side effects of treatment? @ -[No] Exacerbation, Progression, or Severe Exacerbation? @ -[Exacerbation Poses a threat to life or bodily function? How? (Chest pain, [place], OK, pneumonia, PE, COPD, DKA, ARF, appy, cholecystitis, CVA, Diverticulitis, Homicidal, Suicidal, threat to staff... and all critical care pts) @ -[Yes Disposition Clinical Impression: NSTEMI (non-ST elevated myocardial infarction), CHF exacerbation, Chest pain Disposition: ADMITTED IP TO THIS HOSP Condition: Fair Is patient prescribed a controlled substance at d/c from ED?: No
[2024-01-13] MEDS: ASPIRIN 81 MG PO STA (05:51)
[2024-01-13] MEDS: MORPHINE SULFATE 4 MG/ML SYRINGE IV STA (05:52)
[2024-01-13] MEDS: NITROGLYCERIN SL TABS 0.4 MG TAB SUBLINGUAL STA (05:52)
[2024-01-13 06:09] LABS: Anisocytosis Slight; Basophils % (A) 1 %; Eosinophils # (A) 0.1 k/uL (0-0.7); Eosinophils % (A) 1 %; HCT 28.2 % (39.0-53.0); HGB 8.6 gm/dL (13.0-17.5); Hypochromasia Marked; INR 1.1 (<1.2); Lymphocytes # (A) 1.2 k/uL (1.0-4.8); Lymphocytes % (A) 23 %; MCH 24.6 pg (25.0-35.0); MCHC 30.4 g/dL (31.0-37.0); MCV 81.1 fL (80.0-100.0); Microcytosis Slight; Monocytes # (A) 0.4 k/uL (0-1.0); Monocytes % (A) 9 %; Neutrophils # (A) 3.3 k/uL (1.3-7.7); Neutrophils % (A) 64 %; Partial Thromboplastin Time 24.8 sec (22.0-30.0); Platelet Count 145 k/uL (150-450); Prothrombin Time 11.6 sec (10.0-12.5); RBC 3.48 m/uL (4.30-5.90); RDW 18.1 % (11.5-15.5); WBC 5.1 k/uL (3.8-10.6)
[2024-01-13 06:10] LABS: ALT 15 U/L (4-49); AST 36 U/L (17-59); African American GFR (CKD) 50 (>60 ml/min/1.73 sqM); Albumin 4.5 g/dL (3.5-5.0); Alkaline Phosphatase 117 U/L (38-126); Anion Gap 12 mmol/L; Blood Urea Nitrogen 19 mg/dL (9-20); Calcium 9.4 mg/dL (8.4-10.2); Carbon Dioxide 23 mmol/L (22-30); Chloride 100 mmol/L (98-107); Glucose 104 mg/dL (74-99); Magnesium 2.1 mg/dL (1.6-2.3); Non-African American GFR(CKD) 43 (>60 ml/min/1.73 sqM); Potassium 3.4 mmol/L (3.5-5.1); Sodium 135 mmol/L (137-145); Total Bilirubin 1.4 mg/dL (0.2-1.3)
[2024-01-13] MEDS: FUROSEMIDE 10 MG/ML 4 ML VIAL IV STA (06:24)
[2024-01-13] MEDS ORDERED: NITROGLYCERIN SL TABS 0.4 MG TAB SUBLINGUAL PRN ×2 (07:17→16:58)
[2024-01-13] MEDS: HEPARIN SODIUM 1,000 UN/ML (10ML VL) IV ONE (07:50)
[2024-01-13] MEDS: HEPARIN SOD,PORK IN 0.45% NACL 25,000 UNIT in 0.45% NACL 1 250ML.BAG IV SCH (07:55)
[2024-01-13] MEDS: FUROSEMIDE 10 MG/ML 10 ML VIAL IV SCH ×2 (08:05→20:03)
--- NOTE | 2024-01-13 08:15 | XR ---
EXAMINATION TYPE: XR chest 2V DATE OF EXAM: 01/13/2024 5:46 AM CLINICAL INDICATION:Male, 68 years old with history of Chest Pain; [facility] COMPARISON: 12/22/2023 TECHNIQUE: XR chest 2V. Frontal and lateral views of the chest.. FINDINGS: Exam is limited by patient body habitus. Lines/Tubes/Devices: No indwelling lines are seen. Monitor leads. Heart/mediastinum: Cardiac silhouette appears mildly to moderately enlarged. Mildly tortuous aorta. Mediastinal contours appear normal. Hilar regions grossly stable. Pulmonary vascularity: Not increased, Lungs/Pleura: Small to moderate right pleural effusion persists, perhaps slightly increased. Likely a telectasis adjacent to the effusion, lungs otherwise appear stable. Left costophrenic angle is sharp. No visible pneumothorax. Musculoskeletal: No acute osseous abnormality demonstrated in the limits of the exam. Degenerative c hanges. Sternal wires and mediastinal clips redemonstrated suggesting CABG. Other findings: None. IMPRESSION: 1. Cardiomegaly with postoperative changes, likely from CABG. 2. Small to moderate right pleural effusion, similar to slightly increased from previous.
--- NOTE | 2024-01-13 11:19 | P.CRDCN ---
History of Present Illness Consult date: 01/13/24 History of present illness: History of Present Illness: The patient is a 68-year-old male with a known history of CAD, status post CABG over 20 years ago, severe ischemic cardiomyopathy with only 1 open graft who underwent stenting of the SVG to the LAD in October 2022, followed by Dr. Wiggins who presented with progressive dyspnea and chest discomfort. He has been compl aining of discomfort with physical activity, worse yesterday at rest associated with worsening dyspnea. He had peripheral edema. He has symptoms of orthopnea. He did not have any dizziness or palpitations, no syncope. His activity is limited because of his back discomfort. After underwent cardiac catheterization in 2018 at that time recommendations were made regarding redo surgery but the patient declined at that time. He underwent a nuclear scan in July 2023 that showed a fixed anterior and posterior as well as apical defect with an ejection fraction of 28%, there was no reported inducible ischemia. His echocardiogram in October of this year showed an ejection fraction of 30 to 35% with moderate aortic regurgitation. On presentation he had mild troponin elevation. There was no acute ST segment changes. The patient has a known history of chronic kidney disease. He has stopped smoking 6 to 8 months ago and according to him he has been compliant with his medications. Medications: Zestril 2.5 mg daily, Norvasc 2.5 mg daily, spironolactone 50 mg daily, metoprolol succinate 50 mg daily, isosorbide 30 mg daily, Lasix 80 mg daily, ezetimibe 10 mg daily, fenofibrate, Plavix 75 mg daily, aspirin, Eliquis 2.5 mg twice a day, record, Farxiga 5 mg daily, Flexeril Review of Systems: Respiratory: He has chronic dyspnea on exertion with cough GI: No nausea or vomiting . No history of peptic ulcer disease. No recent GI bleed. : No hematuria or dysuria. Nervous System: No stroke or seizure. Physical Examination: 68-year-old male, alert oriented no apparent distress,Blood pressure 120/80, Heart rate 70 Head: Normocephalic. Eyes: Sclerae nonicteric. Neck: Good carotid upstroke, no bruit, no jugular venous distention. Lungs: Bibasilar rales Heart: Regular rate and rhythm, S1-S2, no S3, no rub. Systolic ejection murmur. Abdomen: Soft nontender, positive bowel sounds no organomegaly. Extremities: +1 edema, intact distal pulses. Labs: Hemoglobin 8.6, platelets 145, potassium 3.4, BUN 19, creatinine 1.64. Troponin 0.15 and 0.178. Chest x-ray with right pleural effusion, noted in the past EKG: Sinus mechanism with evidence of inferior wall myocardial infarction and nonspecific T wave inversion anteriorly Impression: 1. Non-STEMI 2. CHF with a history of severe cardiomyopathy 3. Status post CABG and prior stenting with single patent graft 4. History of hyperlipidemia 5. History of hypertension 6. Chronic kidney disease 7. Chronic anemia 8. History of smoking Plan: 1. Continue aspirin and Plavix 2. Continue beta-dorinda and add Zestril 3. IV diuretics 4. The patient will require repeat cardiac catheterization, we will await until his lung status and heart failure improve unless he has further symptoms of chest discomfort 5. Depending on his progress further recommendations will be made. The prognosis is guarded 6. Thank you for this consult we will follow with you. Past Medical History Past Medical History: Coronary Artery Disease (CAD), Chest Pain / Angina, COPD, GERD/Reflux, Hyperlipidemia, Hypertension, Myocardial Infarction (HI), Osteoarthritis (OA), Sleep Apnea/CPAP/BIPAP Additional Past Medical History / Comment(s): hiatal hernia, chronic back pain, L foot drop, numbness/tingling bilateral legs, HUSAM without device, states stents x7 Last Myocardial Infarction Date:: 11/11/22 History of Any Multi-Drug Resistant Organisms: None Reported Past Surgical History: Back Surgery, Cholecystectomy, Coronary Bypass/CABG, Heart Catheterization With Stent, Orthopedic Surgery Additional Past Surgical History / Comment(s): Back surg x 2 with cage. L tennis elbow surg. HEART STENTS X7. Colonoscopy. Lasik eye surgery bilaterally. Emergency Cabg [facility] Past Anesthesia/Blood Transfusion Reactions: No Reported Reaction Additional Past Anesthesia/Blood Transfusion Reaction / Comment(s): Pt received blood during CABG without reaction. Date of Last Stent Placement:: Oct 2022 Past Psychological History: Anxiety, Depression, PTSD Additional Psychological History / Comment(s): He ambulates with a cane. He drives. Smoking Status: Current every day smoker Past Alcohol Use History: None Reported Additional Past Alcohol Use History / Comment(s): Pt states he started smoking in 1967 and used to smoke 3ppd down to maybe less than 1 pack every 4-5 days Past Drug Use History: None Reported Additional Drug Use History / Comment(s): states does not use cocaine anymore. - Past Family History Father Family Medical History: Coronary Artery Disease (CAD), Deep Vein Thrombosis (DVT), GERD/Reflux, Hyperlipidemia Additional Family Medical History / Comment(s): Father of a HI in his 80's Mother Family Medical History: Coronary Artery Disease (CAD) Additional Family Medical History / Comment(s): Mother of a HI at the age of 76yrs. Sister(s) Family Medical History: Cancer Additional Family Medical History / Comment(s): Lung cancer. Medications and Allergies Home Medications Medication Instructions Recorded Confirmed Type HYDROcodone/APAP 10-325MG [[place] 1 tab PO QID PRN 02/22/15 12/22/23 History 10-325] rOPINIRole HCL [Requip] 0.25 mg PO HS 09/29/17 12/22/23 History Apixaban [Eliquis] 2.5 mg PO BID #60 tab 11/18/22 12/22/23 Rx Ezetimibe [Zetia] 10 mg PO DAILY #90 tab 11/18/22 12/22/23 Rx Nitroglycerin Sl Tabs [Nitrostat] 0.4 mg SUBLINGUAL Q5M PRN #25 tab 11/18/22 12/22/23 Rx Fenofibrate [Lofibra] 160 mg PO DAILY #30 tab 12/01/22 12/22/23 Rx Potassium Chloride ER [K-Dur 20] 20 meq PO BID 12/18/22 12/22/23 History Fluticasone Nasal [place] [Flonase 1 spray EA NOSTRIL BID PRN 01/27/23 12/22/23 History Nasal [place]] Metoprolol Succinate (ER) [Toprol 50 mg PO DAILY #30 tab 02/01/23 12/22/23 Rx XL] ALPRAZolam [Xanax] 2 mg PO TID PRN 03/15/23 12/22/23 History Clopidogrel [Plavix] 75 mg PO DAILY 08/21/23 12/22/23 History Cyclobenzaprine [Flexeril] 10 mg PO TID PRN 08/21/23 12/22/23 History Diclofenac Sodium Gel [Voltaren 1% 1 applic TOPICAL QID PRN 08/21/23 12/22/23 History Gel] Furosemide [Lasix] 80 mg PO DAILY 08/21/23 12/22/23 History Isosorbide Mononitrate ER [Imdur] 30 mg PO DAILY 08/21/23 12/22/23 History Omeprazole [PriLOSEC] 20 mg PO AC-BID 08/21/23 12/22/23 History allopurinoL [Zyloprim] 100 mg PO DAILY 08/21/23 12/22/23 History amLODIPine [Norvasc] 2.5 mg PO DAILY 08/21/23 12/22/23 History lisinopriL [Zestril] 2.5 mg PO DAILY 08/21/23 12/22/23 History Indomethacin [Indocin] 25 mg PO TID 11/24/23 12/22/23 History Lidocaine 5% Patch [Lidoderm 5% 1 patch TOPICAL DAILY 11/24/23 12/22/23 History Patch] Albuterol Inhaler [Ventolin Hfa 1 - 2 puff INHALATION RT-Q6H PRN 12/22/23 12/22/23 History Inhaler] Aspirin 81 mg PO DAILY #100 tab 12/24/23 Rx Dapagliflozin Propanediol [Farxiga] 5 mg PO DAILY #30 tab 12/24/23 Rx Spironolactone [Aldactone] 50 mg PO DAILY #30 tab 12/24/23 Rx Allergies Allergy/AdvReac Type Severity Reaction Status Date / Time latex Allergy Swelling Verified 12/22/23 18:34 atorvastatin [From Lipitor] AdvReac JOINT PAIN Verified 12/22/23 18:34 Physical Exam Vitals: Vital Signs Temp Pulse Pulse Resp BP BP Pulse Ox 01/13/24 09:43 97.6 F 72 17 120/81 100 01/13/24 08:37 100 01/13/24 08:30 18 01/13/24 08:21 97.6 F 72 17 120/81 100 01/13/24 08:00 97.9 F 74 18 113/72 99 01/13/24 06:26 72 19 116/72 98 01/13/24 05:10 98 F 91 20 127/77 94 L Intake and Output 01/12/24 01/13/24 01/13/24 22:59 06:59 14:59 Output Total 300 Balance -300 Output: Urine 300 Other: Voiding Method Urinal # Voids 1 Weight 104.326 kg 105.5 kg Results 01/13/24 05:41 01/13/24 05:41 Cardiac Enzymes 01/13/24 01/13/24 01/13/24 Range/Units 05:41 05:41 08:29 AST 36 (17-59) U/L Troponin I 0.150 H* 0.178 H* (0.000-0.034) ng/mL Coagulation 01/13/24 Range/Units 05:41 PT 11.6 (10.0-12.5) sec APTT 24.8 (22.0-30.0) sec CBC 01/13/24 Range/Units 05:41 WBC 5.1 (3.8-10.6) k/uL RBC 3.48 L (4.30-5.90) m/uL Hgb 8.6 L (13.0-17.5) gm/dL Hct 28.2 L (39.0-53.0) % Plt Count 145 L (150-450) k/uL Comprehensive Metabolic Panel 01/13/24 Range/Units 05:41 Sodium 135 L (137-145) mmol/L Potassium 3.4 L (3.5-5.1) mmol/L Chloride 100 (98-107) mmol/L Carbon Dioxide 23 (22-30) mmol/L BUN 19 (9-20) mg/dL Creatinine 1.64 H (0.66-1.25) mg/dL Glucose 104 H (74-99) mg/dL Calcium 9.4 (8.4-10.2) mg/dL AST 36 (17-59) U/L ALT 15 (4-49) U/L Alkaline Phosphatase 117 (38-126) U/L Total Protein 8.0 (6.3-8.2) g/dL Albumin 4.5 (3.5-5.0) g/dL Current Medications Generic Name Dose Route Start Last Admin Trade Name Freq PRN Reason Stop Dose Admin Aspirin 81 mg 01/14/24 09:00 Aspirin 81 Mg PO DAILY ELIANA Furosemide 80 mg 01/13/24 09:00 01/13/24 08:05 Furosemide 10 Mg/Ml 10 Ml Vial IV Not Given BID ELIANA Heparin Sodium/Sodium Chloride 250 mls @ 12.519 mls/hr 01/13/24 07:30 01/13/24 07:55 25,000 unit/ Sodium Chloride IV 9.59 units/kg/hr .[id number] ELIANA 10 mls/hr Administration Protocol 12 UNITS/KG/HR Nitroglycerin 0.4 mg 01/13/24 07:17 Nitroglycerin Sl Tabs 0.4 Mg Tab SUBLINGUAL Q5M PRN Chest Pain Sodium Chloride 10 ml 01/13/24 09:00 01/13/24 08:05 Sodium Chloride 0.9% Flush 10 Ml Syringe IV Not Given BID ELIANA Intake and Output 01/12/24 01/13/24 01/13/24 22:59 06:59 14:59 Output Total 300 Balance -300 Output: Urine 300 Other: Voiding Method Urinal # Voids 1 Weight 104.326 kg 105.5 kg Patient Weight 01/14/24 06:59 Weight 105.5 kg 01/13/24 05:41 01/13/24 05:41
[2024-01-13] MEDS: METOPROLOL TARTRATE 25 MG TAB PO SCH (11:49)
[2024-01-13] MEDS: DAPAGLIFLOZIN PROPANEDIOL 10 MG TABLET PO SCH (11:49)
[2024-01-13] MEDS: NITROGLYCERIN OINT 1 INCH/GM PACKET TOPICAL SCH (11:49)
[2024-01-13] MEDS: SPIRONOLACTONE 25 MG TAB PO SCH (11:49)
[2024-01-13] MEDS: ATORVASTATIN 40 MG TAB PO SCH (11:50)
[2024-01-13] MEDS: HYDROcodone/APAP 10-325MG 1 EACH TAB PO PRN (17:27)
[2024-01-13] MEDS: PANTOPRAZOLE 40 MG TABLET PO SCH (17:28)
[2024-01-13] MEDS: CYCLOBENZAPRINE 10 MG TAB PO PRN (20:03)
[2024-01-13] MEDS: POTASSIUM CHLORIDE ER 20 MEQ TAB.ER PO SCH (20:03)
[2024-01-13] MEDS: ALPRAZolam 1 MG TAB PO PRN (20:03)
[2024-01-13] MEDS: MORPHINE SULFATE 2 MG/ML SYRINGE IVP STA (20:37)
[2024-01-13] MEDS ORDERED: POTASSIUM CHLORIDE ER 20 MEQ TAB.ER PO SCH (21:00)
[2024-01-13] MEDS ORDERED: APIXABAN 2.5 MG TABLET PO SCH (21:00)
[2024-01-14 05:53] LABS: African American GFR (CKD) 49 (>60 ml/min/1.73 sqM); Anion Gap 9 mmol/L; Blood Urea Nitrogen 22 mg/dL (9-20); Calcium 8.7 mg/dL (8.4-10.2); Carbon Dioxide 24 mmol/L (22-30); Chloride 101 mmol/L (98-107); Glucose 98 mg/dL (74-99); Non-African American GFR(CKD) 42 (>60 ml/min/1.73 sqM); Potassium 3.9 mmol/L (3.5-5.1); Sodium 134 mmol/L (137-145)
[2024-01-14] MEDS: ASPIRIN 81 MG PO SCH (08:59)
[2024-01-14] MEDS ORDERED: METOPROLOL SUCCINATE (ER) 50 MG TAB.ER.24H PO SCH (09:00)
[2024-01-14] MEDS ORDERED: DAPAGLIFLOZIN PROPANEDIOL 5 MG TABLET PO SCH (09:00)
[2024-01-14] MEDS: ISOSORBIDE MONONITRATE ER 30 MG TAB.ER.24H PO SCH (09:00)
[2024-01-14] MEDS ORDERED: SPIRONOLACTONE 25 MG TAB PO SCH (09:00)
[2024-01-14] MEDS ORDERED: ASPIRIN 325 MG TAB PO SCH (09:00)
[2024-01-14] MEDS: EZETIMIBE 10 MG TAB PO SCH (09:00)
[2024-01-14] MEDS: FENOFIBRATE 160 MG TAB PO SCH (09:00)
[2024-01-14] MEDS: allopurinoL 100 MG TAB PO SCH (09:00)
[2024-01-14] MEDS ORDERED: FUROSEMIDE 80 MG TAB PO SCH (09:00)
[2024-01-14] MEDS ORDERED: ASPIRIN 81 MG PO SCH (09:00)
[2024-01-14] MEDS: CLOPIDOGREL 75 MG TAB PO SCH (09:00)
[2024-01-14] MEDS: amLODIPine 2.5 MG TAB PO SCH (09:03)
[2024-01-14 10:22] LABS: Chol/HDL Ratio 5.14 Ratio; LDL Cholesterol,Calculated 84.5 mg/dL (0.0-131.0)
[2024-01-14] MEDS ORDERED: ALPRAZolam 0.5 MG TAB PO PRN (11:03)
[2024-01-14] MEDS ORDERED: ALPRAZolam 0.25 MG TAB PO PRN (11:03)
[2024-01-14] MEDS ORDERED: NITROGLYCERIN SL TABS 0.4 MG TAB SUBLINGUAL PRN (11:03)
[2024-01-14 11:20] LABS: Anisocytosis Slight; HCT 26.8 % (39.0-53.0); Hypochromasia Marked; MCH 24.8 pg (25.0-35.0); MCHC 29.7 g/dL (31.0-37.0); MCV 83.4 fL (80.0-100.0); Mean Platelet Volume 8.8; Platelet Count 128 k/uL (150-450); RBC 3.21 m/uL (4.30-5.90); RDW 18.1 % (11.5-15.5); WBC 5.7 k/uL (3.8-10.6)
--- NOTE | 2024-01-14 12:43 | P.PN ---
Subjective Progress Note Date: 01/14/24 The patient is a 68-year-old male with a known history of CAD, status post CABG over 20 years ago, severe ischemic cardiomyopathy with only 1 open graft who underwent stenting of the SVG to the LAD in October 2022, followed by Dr. Wiggins who presented with progressive dyspnea and chest discomfort. He has been complaining of discomfort with physical activity, worse yesterday at rest associated with worsening dyspnea. He had peripheral edema. He has symptoms of orthopnea. He did not have any dizziness or palpitations, no syncope. His activity is limited because of his back discomfort. After underwent cardiac catheterization in 2018 at that time recommendations were made regarding redo surgery but the patient declined at that time. He underwent a nuclear scan in July 2023 that showed a fixed anterior and posterior as well as apical defect with an ejection fraction of 28%, there was no reported inducible ischemia. His echocardiogram in October of this year showed an ejection fraction of 30 to 35% with moderate aortic regurgitation. On presentation he had mild troponin elevation. There was no acute ST segment changes. The patient has a known history of chronic kidney disease. He has stopped smoking 6 to 8 months ago and according to him he has been compliant with his medications. 01/14/2024 The patient was seen and examined resting comfortably in bed. He does not feel his breathing or chest feel much different. He has improvement in his edema. Renal function is stable. Hemoglobin 8.0, previously 8.6. Objective - Vital Signs Vital signs: Vital Signs Temp 97.6 F 01/14/24 08:57 Pulse 60 01/14/24 11:22 Resp 17 01/14/24 11:22 BP 92/52 01/14/24 11:22 Pulse Ox 95 01/14/24 11:22 FiO2 Intake & Output 01/13/24 01/14/24 01/14/24 18:59 06:59 18:59 Intake Total 622.5 167.500 240 Output Total 1050 900 250 Balance -427.5 -732.500 -10 Weight 105.5 kg Intake: Intake, IV Titration 82.5 167.500 Amount Heparin Sod,Pork in 0.45% 82.5 167.500 NaCl 25,000 unit In 0.45 % NaCl 1 250ml.bag @ 12 UNITS/KG/HR 12.519 mls/hr IV .[id number] [facility] Rx#: [id number] Oral 540 240 Output: Urine 1050 900 250 Other: Voiding Method Urinal Urinal Urinal # Voids 2 1 - Exam Head: Normocephalic. Eyes: Sclerae nonicteric. Neck: Good carotid upstroke, no bruit, no jugular venous distention. Lungs: Bibasilar rales Heart: Regular rate and rhythm, S1-S2, no S3, no rub. Systolic ejection murmur. Abdomen: Soft nontender, positive bowel sounds no organomegaly. Extremities: +1 edema, intact distal pulses. - Labs CBC & Chem 7: 01/14/24 10:52 01/14/24 05:06 Labs: Abnormal Lab Results - Last 24 Hours (Table) 01/13/24 01/13/24 01/14/24 Range/Units 14:31 21:25 05:06 RBC (4.30-5.90) m/uL Hgb (13.0-17.5) gm/dL Hct (39.0-53.0) % MCH (25.0-35.0) pg MCHC (31.0-37.0) g/dL RDW (11.5-15.5) % Plt Count (150-450) k/uL APTT 33.9 H 37.9 H (22.0-30.0) sec Sodium 134 L (137-145) mmol/L BUN 22 H (9-20) mg/dL Creatinine 1.67 H (0.66-1.25) mg/dL HDL Cholesterol 25.70 L (40.00-60.00) mg/dL 01/14/24 01/14/24 Range/Units 05:06 10:52 RBC 3.21 L (4.30-5.90) m/uL Hgb 8.0 L (13.0-17.5) gm/dL Hct 26.8 L (39.0-53.0) % MCH 24.8 L (25.0-35.0) pg MCHC 29.7 L (31.0-37.0) g/dL RDW 18.1 H (11.5-15.5) % Plt Count 128 L (150-450) k/uL APTT 47.7 H (22.0-30.0) sec Sodium (137-145) mmol/L BUN (9-20) mg/dL Creatinine (0.66-1.25) mg/dL HDL Cholesterol (40.00-60.00) mg/dL Assessment and Plan Assessment: 1. Non-STEMI 2. CHF with a history of severe cardiomyopathy 3. Status post CABG and prior stenting with single patent graft 4. History of hyperlipidemia 5. History of hypertension 6. Chronic kidney disease 7. Chronic anemia 8. History of smoking Plan: At this time we will discontinue IV Lasix and switch to oral Lasix 40 mg p.o. twice daily. We will check renal function and hemoglobin in the morning. Patient will be tentatively scheduled to undergo cardiac catheterization with Dr. Ni tomorrow. Further recommendations to follow DOCKETING SPECIALIST note has been reviewed, I agree with a documented findings and plan of care. Patient was seen and examined.
[2024-01-14] MEDS: FUROSEMIDE 40 MG TAB PO SCH (15:36)
--- NOTE | 2024-01-14 23:04 | HP ---
HISTORY AND PHYSICAL CHIEF COMPLAINT: Chest pain and shortness of breath. HISTORY OF PRESENT ILLNESS: Another admission for this 68-year-old white male with advanced coronary artery disease. He has had a CABG and multiple stentings. He has been extremely noncompliant in the past and not taking his medications and continue to smoke. Over the last year or so, he has become more of a "believer" and has been taking better care of himself. Unfortunately, he continues to have difficulty coming in and out with episodes of unstable angina and congestive heart failure. He has started to have chest pain and shortness of breath again and drove himself to the hospital. Troponins are elevated. REVIEW OF SYSTEMS: Otherwise unremarkable. He has had no fever, chills, abdominal pain, etc. Past medical history, family history, and personal and social histories are all otherwise unchanged from his recent admitting and discharge summaries. PHYSICAL EXAMINATION: VITAL SIGNS: Normal. HEAD, EYES, NOSE, MOUTH, AND THROAT: Normal. CHEST: Clear. CARDIAC: Normal with sinus rhythm. ASSESSMENT: 1. Acute [id number] myocardial infarction. 2. Extensive history of coronary artery disease. 3. Status post coronary artery bypass graft. 4. Status post multiple stentings. 5. History of hypertension. 6. Atherosclerotic cardiovascular disease. 7. Hyperlipidemia. PLAN: 1. Bed rest. 2. Cardiology consult. 3. Manage chest pain. MMODL / IJN: [id number] /
[2024-01-15] MEDS: MORPHINE SULFATE 2 MG/ML SYRINGE IVP PRN (00:18)
--- NOTE | 2024-01-15 06:04 | PN ---
PROGRESS NOTE DATE OF SERVICE: 01/14/2024 CHIEF COMPLAINT: NSTEMI and congestive heart failure. HISTORY OF PRESENT ILLNESS: This gentleman is stable and there has been no change. He is going for cardiac cath tomorrow. PHYSICAL EXAMINATION: VITAL SIGNS: Normal. CHEST: Clear. CARDIAC: Unremarkable. IMPRESSION: 1. Non ST elevation myocardial infarction. 2. Coronary artery disease. 3. Congestive heart failure. 4. Chronic obstructive pulmonary disease. 5. Hyperlipidemia. PLAN: Cardiac cath tomorrow. MMODL / IJN: [id number] /
[2024-01-15] MEDS: ASPIRIN 325 MG TAB PO ONE (06:21)
[2024-01-15] MEDS: ATORVASTATIN 80 MG TAB PO ONE (06:23)
[2024-01-15] MEDS ORDERED: HEPARIN SODIUM,PORCINE 10,000 UNIT in SODIUM CHLORIDE 0.9% 1,000 ML IRRIGATION PRN (07:00)
[2024-01-15] MEDS ORDERED: HEPARIN SODIUM,PORCINE (1 ML) 2,500 UNIT in SODIUM CHLORIDE 0.9% 250 ML IRRIGATION PRN (07:00)
[2024-01-15 08:03] LABS: Anisocytosis Slight; HCT 25.6 % (39.0-53.0); HGB 7.6 gm/dL (13.0-17.5); Hypochromasia Marked; MCH 24.8 pg (25.0-35.0); MCHC 29.9 g/dL (31.0-37.0); MCV 82.9 fL (80.0-100.0); Mean Platelet Volume 10.9; Platelet Count 129 k/uL (150-450); RBC 3.09 m/uL (4.30-5.90); WBC 5.8 k/uL (3.8-10.6)
[2024-01-15 08:25] LABS: African American GFR (CKD) 46 (>60 ml/min/1.73 sqM); Anion Gap 10 mmol/L; Blood Urea Nitrogen 27 mg/dL (9-20); Calcium 8.8 mg/dL (8.4-10.2); Carbon Dioxide 23 mmol/L (22-30); Chloride 101 mmol/L (98-107); Glucose 100 mg/dL (74-99); Non-African American GFR(CKD) 40 (>60 ml/min/1.73 sqM); Potassium 4.1 mmol/L (3.5-5.1); Sodium 134 mmol/L (137-145)
--- NOTE | 2024-01-15 11:59 | P.PN ---
Subjective HISTORY OF PRESENT ILLNESS: The patient is a 68-year-old male with a known history of CAD, status post CABG over 20 years ago, severe ischemic cardiomyopathy with only 1 open graft who underwent stenting of the SVG to the LAD in October 2022, followed by Dr. Wiggins who presented with progressive dyspnea and chest discomfort. He has been complaining of discomfort with physical activity, worse yesterday at rest associated with worsening dyspnea. He had peripheral edema. He has symptoms of orthopnea. He did not have any dizziness or palpitations, no syncope. His activity is limited because of his back discomfort. After underwent cardiac catheterization in 2018 at that time recommendations were made regarding redo surgery but the patient declined at that time. He underwent a nuclear scan in July 2023 that showed a fixed anterior and posterior as well as apical defect with an ejection fraction of 28%, there was no reported inducible ischemia. His echocardiogram in October of this year showed an ejection fraction of 30 to 35% with moderate aortic regurgitation. On presentation he had mild troponin elevation. There was no acute ST segment changes. The patient has a known history of chronic kidney disease. He has stopped smoking 6 to 8 months ago and according to him he has been compliant with his medications. Medications: Zestril 2.5 mg daily, Norvasc 2.5 mg daily, spironolactone 50 mg daily, metoprolol succinate 50 mg daily, isosorbide 30 mg daily, Lasix 80 mg daily, ezetimibe 10 mg daily, fenofibrate, Plavix 75 mg daily, aspirin, Eliquis 2.5 mg twice a day, record, Farxiga 5 mg daily, Flexeril 01/14/2024 The patient was seen and examined resting comfortably in bed. He does not feel his breathing or chest feel much different. He has improvement in his edema. Renal function is stable. Hemoglobin 8.0, previously 8.6. 01/15/2024 Patient examined this morning at the bedside. Patient currently denies any c hest pain or pressure. He denies any shortness of breath. Vital signs are stable. PHYSICAL EXAM: VITAL SIGNS: Reviewed. GENERAL: Well-developed in no acute distress. NECK: Supple. No JVD or thyromegaly LUNGS: Respirations even and unlabored. Lungs essentially clear to auscultation bilaterally. HEART: Regular rate and rhythm. S1 and S2 heard. Systolic murmur noted EXTREMITIES: Normal range of motion. No clubbing or cyanosis. Peripheral pulses intact. No lower extremity edema ASSESSMENT: Non-STEMI Coronary artery disease with previous CABG and PCI, most recently SVG to LAD, October 2022 History of thrombectomy of SVG to LAD, TAVR 2022, recommended to be on anticoagulation for Dr. Wiggins at that time History of ventricular fibrillation, during cardiac catheterization, 10/2022 Ischemic cardiomyopathy, 30 to 35% Moderate aortic regurgitation Chronic heart failure with reduced EF, currently euvolemic Hypertension Hyperlipidemia Chronic kidney disease Chronic anemia History of nicotine dependence PLAN: Continue IV heparin. Eliquis remains on hold. Will resume post cardiac kimbelree terization Continue current cardiac medications Patient to undergo cardiac catheterization today with Dr. Wiggins Further recommendations pending patient course Nurse practitioner note has been reviewed by physician. Signing provider agrees with the documented findings, assessment, and plan of care documented by TOOL OR DIE DRAWING CHECKER as a scribe. Objective - Vital Signs Vital signs: Vital Signs Temp 97.9 F 01/15/24 08:40 Pulse 60 01/15/24 08:40 Resp 18 01/15/24 08:40 BP 103/60 01/15/24 08:40 Pulse Ox 95 01/15/24 08:40 FiO2 Intake & Output 01/14/24 01/15/24 01/15/24 18:59 06:59 18:59 Intake Total 358 250 Output Total 550 200 220 Balance -192 -200 30 Weight 102.5 kg Intake: Intake, IV Titration 250 Amount Heparin Sod,Pork in 0.45% 250 NaCl 25,000 unit In 0.45 % NaCl 1 250ml.bag @ 12 UNITS/KG/HR 12.519 mls/hr IV .[id number] [facility] Rx#: [id number] Oral 358 Output: Urine 550 200 220 Other: Voiding Method Urinal Urinal Urinal # Voids 1 - Labs CBC & Chem 7: 01/15/24 07:25 01/15/24 07:25 Labs: Abnormal Lab Results - Last 24 Hours (Table) 01/15/24 01/15/24 01/15/24 Range/Units 07:25 07:25 07:25 RBC 3.09 L (4.30-5.90) m/uL Hgb 7.6 L (13.0-17.5) gm/dL Hct 25.6 L (39.0-53.0) % MCH 24.8 L (25.0-35.0) pg MCHC 29.9 L (31.0-37.0) g/dL RDW 18.0 H (11.5-15.5) % Plt Count 129 L (150-450) k/uL APTT 40.1 H (22.0-30.0) sec Sodium 134 L (137-145) mmol/L BUN 27 H (9-20) mg/dL Creatinine 1.76 H (0.66-1.25) mg/dL Glucose 100 H (74-99) mg/dL
[2024-01-15] MEDS ORDERED: LIDOCAINE 1% INJ 10MG/ML (20 ML MDV) ONE (12:28)
[2024-01-15] MEDS ORDERED: VERAPAMIL 2.5 MG/ML 2 ML AMP ONE (12:36)
[2024-01-15] MEDS ORDERED: fentaNYL (PF) 50 MCG/ML 2 ML AMP ONE (12:36)
[2024-01-15] MEDS ORDERED: HEPARIN SODIUM 1,000 UN/ML (10ML VL) ONE (12:37)
[2024-01-15] MEDS: VERAPAMIL SYRINGE (5 MG/10 ML) INTRAARTER ONE (12:44)
[2024-01-15] MEDS: MIDAZOLAM 2 MG/2 ML VIAL IVP ONE (12:44)
[2024-01-15] MEDS: LIDOCAINE 1% INJ 10MG/ML (10 ML MDV) SQ ONE (12:44)
[2024-01-15] MEDS: SODIUM CHLORIDE 0.9% 1,000 ML IV ONE (12:45)
[2024-01-15] MEDS: fentaNYL (PF) 50 MCG/1 ML VIAL IVP ONE (12:45)
[2024-01-15] MEDS ORDERED: MORPHINE SULFATE 4 MG/ML SYRINGE ONE (12:46)
[2024-01-15] MEDS: MORPHINE SULFATE 4 MG/ML SYRINGE IVP ONE (12:52)
[2024-01-15] MEDS: HEPARIN SODIUM 1,000 UN/ML (10ML VL) IVP ONE (12:55)
[2024-01-15] MEDS: IOPAMIDOL-370 100ML BTL INJ ONE (13:01)
[2024-01-15] MEDS ORDERED: RX INFO: IV CONTRAST WAS GIVEN 1 EACH MISC MISCELLANE PRN (13:02)
--- NOTE | 2024-01-15 13:07 | P.PCN ---
Date of Procedure: 01/15/24 Operative Findings: CARDIAC CATHETERIZATION PERFORMING PHYSICIAN: Frank Wiggins MD, RPVI PROCEDURE PERFORMED: 1. Selective right and left coronary angiogram 2. Left heart catheterization 3. SVG to LAD angiogram 4. Ultrasound-guided access of the right radial artery INDICATION: Acute non-ST elevation myocardial infarction COMPLICATION: None APPROACH: Right radial artery LEVEL OF SEDATION: Moderate with a sedation length of 20 minutes minutes PROCEDURE DESCRIPTION: After obtaining an informed consent, the patient was brought to cardiac terrazzo laborer. Local anesthesia was performed using lidocaine subcutaneously. The right radial artery was cannulated using Seldinger technique, the guidewire passed easily, following that we advanced a 5-Arabic sheath dilator assembly, the wire and dilator were removed and sheath was flushed. Following that, 2 mg of verapamil along with 3000 unit heparin were given. Selective right and left coronary angiogram using a 6-Arabic JR4 and JL 3.5 catheters. The SVG to LAD angiogram was performed using the JL 3.5 catheter. Following that we did left heart catheterization using 6-Arabic pigtail catheter. The procedure was completed there was no complication. SELECTIVE CORONARY ANGIOGRAM: The right coronary artery: Is occluded chronically and this is known from before Left main: Calcified with mild to moderate disease The left circumflex: Large-caliber vessel nondominant vessel. Gives rise into OM1 which works as a ramus intermedius which has an ostial lesion appears to be in the range of 50% The ramus intermedius: Moderate caliber vessel with also ostial disease appears to be in the range of 50 to 60% The left anterior descending artery: Is chronically occluded The SVG to LAD has intermediate in-stent restenosis appears to be the same as before HEMODYNAMICS: LVEDP was 25 mmHg with no significant gradient across aortic valve CONCLUSION: 1. Patent SVG to LAD with intermediate in-stent restenosis with multiple layers of stents. 2. Intermediate to severe disease involving the first obtuse marginal branch and ramus intermedius 3. Chronically occluded right coronary artery POSTPROCEDURE MANAGEMENT: Continue maximize medical treatment Consider surgical evaluation Follow-up with the patient
--- NOTE | 2024-01-15 14:43 | P.GSCN ---
History of Present Illness Consult date: 01/15/24 Reason for Consult: Coronary artery disease Requesting physician: Frank Wiggins History of present illness: This is a 68-year-old gentleman who follows outpatient with Dr. Gee for primary care and Dr. Wiggins for cardiology. He has a previous medical history of coronary artery disease with multiple stents as well as thrombectomy, most recent PCI was to the SVG in 10/2022, as well as coronary artery bypass graft surgery approximated 20 years ago, ischemic cardiomyopathy, chronic heart failure with reduced EF, hypertension, hyperlipidemia, chronic kidney disease, current tobacco use, COPD, obstructive sleep apnea, chronic back pain with history of back surgery, and family history of heart disease. He presented to [facility] with complaints of significant chest pain which woke him from sleep associated with shortness of breath and diaphoresis. Labs completed in the ER revealed, WBC 5.1, hemoglobin 8.6, platelet count 1 45,000, creatinine 1.64, BNP 5640, troponin 0.15 which did elevate to 0.178. EKG demonstrated sinus rhythm with inferior wall myocardial infarction although possibly old, nonspecific T wave inversion anteriorly. Chest x-ray revealed cardiomegaly. The patient was ruled in for non-STEMI and was admitted for evaluation and treatment with consultation placed to cardiology. The gentleman underwent heart catheterization today by Dr. Ni which revealed patent SVG to the LAD with intermediate in-stent restenosis with multiple layers of stents, intermediate to severe disease involving the first obtuse marginal branch and ramus intermedius, as well as chronically occluded right coronary artery. Due to these findings consultation was placed to cardiothoracic surgery for recommendations regarding surgical revascularization. The most recent echocardiogram completed in this hospital was done November 24, 2023 which revealed impaired LV systolic function with EF 30-35% and moderate aortic insufficiency. Review of Systems Review of systems was completed and was negative except as noted - Cardiovascular Reports as per HPI, Reports chest pain, Reports dyspnea on exertion, Reports shortness of breath Past Medical History Past Medical History: Coronary Artery Disease (CAD), Chest Pain / Angina, COPD, GERD/Reflux, Hyperlipidemia, Hypertension, Myocardial Infarction ([place]), Oste oarthritis (OA), Sleep Apnea/CPAP/BIPAP Additional Past Medical History / Comment(s): hiatal hernia, chronic back pain, L foot drop, numbness/tingling bilateral legs, HUSAM without device, states stents x7 Last Myocardial Infarction Date:: 11/11/22 History of Any Multi-Drug Resistant Organisms: None Reported Past Surgical History: Back Surgery, Cholecystectomy, Coronary Bypass/CABG, Heart Catheterization With Stent, Orthopedic Surgery Additional Past Surgical History / Comment(s): Back surg x 2 with cage. L tennis elbow surg. HEART STENTS X7. Colonoscopy. Lasik eye surgery bilaterally. Emergency Cabg [facility] Past Anesthesia/Blood Transfusion Reactions: No Reported Reaction Additional Past Anesthesia/Blood Transfusion Reaction / Comm: Pt received blood during CABG without reaction. Date of Last Stent Placement:: Oct 2022 Past Psychological History: Anxiety, Depression, PTSD Additional Psychological History / Comment(s): He ambulates with a cane. He drives. Smoking Status: Current every day smoker Past Alcohol Use History: None Reported Additional Past Alcohol Use History / Comment(s): Pt states he started smoking in 1967 and used to smoke 3ppd down to maybe less than 1 pack every 4-5 days Past Drug Use History: None Reported Additional Drug Use History / Comment(s): states does not use cocaine anymore. - Past Family History Father Family Medical History: Coronary Artery Disease (CAD), Deep Vein Thrombosis (DVT), GERD/Reflux, Hyperlipidemia Additional Family Medical History / Comment(s): Father of a [facility] in his 80's Mother Family Medical History: Coronary Artery Disease (CAD) Additional Family Medical History / Comment(s): Mother of a [facility] at the age of 76yrs. Sister(s) Family Medical History: Cancer Additional Family Medical History / Comment(s): Lung cancer. Medications and Allergies Home Medications Medication Instructions Recorded Confirmed Type HYDROcodone/APAP 10-325MG [Le[place]ring 1 tab PO QID PRN 02/22/15 01/13/24 History 10-325] rOPINIRole HCL [Requip] 0.25 mg PO HS 09/29/17 01/13/24 History Apixaban [Eliquis] 2.5 mg PO BID #60 tab 11/18/22 01/13/24 Rx Ezetimibe [Zetia] 10 mg PO DAILY #90 tab 11/18/22 01/13/24 Rx Fenofibrate [Lofibra] 160 mg PO DAILY #30 tab 12/01/22 01/13/24 Rx Potassium Chloride ER [K-Dur 20] 20 meq PO BID 12/18/22 01/13/24 History Fluticasone Nasal [place] [Flonase 1 spray EA NOSTRIL BID PRN 01/27/23 01/13/24 History Nasal [place]] Metoprolol Succinate (ER) [Toprol 50 mg PO DAILY #30 tab 02/01/23 01/13/24 Rx XL] ALPRAZolam [Xanax] 2 mg PO TID PRN 03/15/23 01/13/24 History Clopidogrel [Plavix] 75 mg PO DAILY 08/21/23 01/13/24 History Cyclobenzaprine [Flexeril] 10 mg PO TID PRN 08/21/23 01/13/24 History Diclofenac Sodium Gel [Voltaren 1% 1 applic TOPICAL QID PRN 08/21/23 01/13/24 History Gel] Furosemide [Lasix] 80 mg PO DAILY 08/21/23 01/13/24 History Isosorbide Mononitrate ER [Imdur] 30 mg PO DAILY 08/21/23 01/13/24 History Omeprazole [PriLOSEC] 20 mg PO AC-BID 08/21/23 01/13/24 History allopurinoL [Zyloprim] 100 mg PO DAILY 08/21/23 01/13/24 History amLODIPine [Norvasc] 2.5 mg PO DAILY 08/21/23 01/13/24 History lisinopriL [Zestril] 2.5 mg PO DAILY 08/21/23 01/13/24 History Lidocaine 5% Patch [Lidoderm 5% 1 patch TRANSDERM DAILY 11/24/23 01/13/24 History Patch] Albuterol Inhaler [Ventolin Hfa 1 - 2 puff INHALATION RT-Q6H PRN 12/22/23 01/13/24 History Inhaler] Aspirin 81 mg PO DAILY #100 tab 12/24/23 01/13/24 Rx Dapagliflozin Propanediol [Farxiga] 5 mg PO DAILY #30 tab 12/24/23 01/13/24 Rx Spironolactone [Aldactone] 50 mg PO DAILY #30 tab 12/24/23 01/13/24 Rx Nitroglycerin Sl Tabs [Nitrostat] 0.4 mg SL Q5M PRN 01/13/24 01/13/24 History Allergies Allergy/AdvReac Type Severity Reaction Status Date / Time latex Allergy Swelling Verified 12/22/23 18:34 atorvastatin [From Lipitor] AdvReac JOINT PAIN Verified 12/22/23 18:34 Surgical - Exam Vital Signs Temp Pulse Resp BP Pulse Ox 98 F 91 20 127/77 94 L 01/13/24 05:10 01/13/24 05:10 01/13/24 05:10 01/13/24 05:10 01/13/24 05:10 CONSTITUTIONAL: Awake and alert, appears comfortable, cooperative, well- developed, well-nourished, no pain, no acute distress EYES: Pupils equal, round, reactive to light, normal ocular movement ENT: Moist mucous membranes without oral lesions present NECK: No masses, no bruits, trachea midline RESPIRATORY: Lungs sounds clear to auscultation bilaterally. Respirations even, nonlabored. Currently on 3 L nasal cannula with oxygen saturation 99%. Strong cough. No clubbing or cyanosis present CARDIOVASCULAR: S1, S2 present. Regular rate and rhythm, sinus rhythm on telemetry. Sternum stable. Palpable peripheral pulses bilaterally. Right lower extremity edema present. No calf pain or tenderness noted. No sig nificant lower extremity varicosities noted. Left radial Gulshan's test less than 8 seconds. GASTROINTESTINAL: Abdomen soft, nontender, nondistended without masses or organomegaly noted. There is no rebound or guarding present. Active bowel sounds present 4 quadrants. GENITOURINARY: Deferred INTEGUMENTARY: Skin is warm and dry with evidence of good perfusion. Well- healed open heart surgery scar present NEUROLOGIC: Cranial nerves II through XII intact, normal coordination, no obvious motor or sensory deficits, speech is normal MUSKULOSKELETAL: Able to move all extremities, strength equal bilaterally, normal posture PSYCHIATRIC: Alert and oriented to person place and time, appropriate affect, intact judgment and insight Results - Labs 01/15/24 07:25 01/17/24 09:12 Abnormal Lab Results - Last 24 Hours (Table) 01/15/24 01/15/24 01/15/24 Range/Units 07:25 07:25 07:25 RBC 3.09 L (4.30-5.90) m/uL Hgb 7.6 L (13.0-17.5) gm/dL Hct 25.6 L (39.0-53.0) % MCH 24.8 L (25.0-35.0) pg MCHC 29.9 L (31.0-37.0) g/dL RDW 18.0 H (11.5-15.5) % Plt Count 129 L (150-450) k/uL APTT 40.1 H (22.0-30.0) sec Sodium 134 L (137-145) mmol/L BUN 27 H (9-20) mg/dL Creatinine 1.76 H (0.66-1.25) mg/dL Glucose 100 H (74-99) mg/dL Diabetes panel 01/15/24 Range/Units 07:25 Sodium 134 L (137-145) mmol/L Potassium 4.1 (3.5-5.1) mmol/L Chloride 101 (98-107) mmol/L Carbon Dioxide 23 (22-30) mmol/L BUN 27 H (9-20) mg/dL Creatinine 1.76 H (0.66-1.25) mg/dL Glucose 100 H (74-99) mg/dL Calcium 8.8 (8.4-10.2) mg/dL Calcium panel 01/15/24 Range/Units 07:25 Calcium 8.8 (8.4-10.2) mg/dL Pituitary panel 01/15/24 Range/Units 07:25 Sodium 134 L (137-145) mmol/L Potassium 4.1 (3.5-5.1) mmol/L Chloride 101 (98-107) mmol/L Carbon Dioxide 23 (22-30) mmol/L BUN 27 H (9-20) mg/dL Creatinine 1.76 H (0.66-1.25) mg/dL Glucose 100 H (74-99) mg/dL Calcium 8.8 (8.4-10.2) mg/dL Adrenal panel 01/15/24 Range/Units 07:25 Sodium 134 L (137-145) mmol/L Potassium 4.1 (3.5-5.1) mmol/L Chloride 101 (98-107) mmol/L Carbon Dioxide 23 (22-30) mmol/L BUN 27 H (9-20) mg/dL Creatinine 1.76 H (0.66-1.25) mg/dL Glucose 100 H (74-99) mg/dL Calcium 8.8 (8.4-10.2) mg/dL - Imaging Chest x-ray: report reviewed, image reviewed EKG: image reviewed Additional studies: Heart catheterization and echocardiogram films reviewed Assessment and Plan Assessment: Coronary artery disease with multiple stents as well as thrombectomy, most recent PCI was to the SVG in 10/2022, as well as coronary artery bypass graft surgery approximated 20 years ago, NSTEMI this admission Ischemic cardiomyopathy, EF 30-35% Acute on chronic heart failure with reduced EF Moderate aortic insuffiency Chest pain, SOB secondary to above Hypertension Hyperlipidemia, treated, cholesterol 132, LDL 84.5 Chronic kidney disease Current tobacco use COPD Obstructive sleep apnea Chronic back pain with history of back surgery Family history of heart disease Plan: The patient was seen and examined laying in bed on the cardiac stepdown unit in no acute distress. Does complain of back pain for which he just received pain pill, denies chest pain or shortness of breath at this time. The usual perioperative course of redo open-heart surgery has been discussed with the patient, risks and benefits reviewed, all questions were answered, and the patient is willing to consider redo open heart surgery. Preoperative testing was initiated. Once completed we will calculate STS risk score and discuss with the patient. He did receive Plavix this morning, would need to be off of Plavix for 7 days prior to any surgical intervention. Smoking cessation counseling and education provided, patient is strongly encouraged to quit smoking completely. Recommend continuing to maximize medical therapy with aspirin, statin, beta- dorinda, diuretics. Increase activity as tolerated. Wean O2 as tolerated. More recommendations to follow once preoperative testing completed and surgeon has had the opportunity to review the patient's case. Thank you Dr. Wiggins for this consult. I have personally seen and examined the patient, performed the documentation and the assessment and plan as written. Number of minutes spent on the visit: 30. TASHA Ibrahim Attending Addendum: Pt seen and evaluated with ACTIVITIES MANAGER above. Agree with her assessment and plan. This is a 68 year-old M s/p previous cardiac surgery who presents with progression of disease. He is potentially a surgical candidate for a redo. I spent 35 minutes reviewing the data and discussing care with team. Time with Patient: Greater than 30
--- NOTE | 2024-01-15 14:59 | P.CN ---
Psychiatric Consult - . Consult date: 01/15/24 Consult:: 01/15/24 13:20 IDENTIFYING DATA: This patient is a 68-year-old male, , currently lives alone in apartment, is , he allegedly has 17 kids REASON FOR REFERRAL: Psychiatry was consulted for "threatening staff" HISTORY OF PRESENT ILLNESS: The patient presented to the hospital complaining of chest pain intermittent, patient has a history of CHF, coronary artery disease. Patient was found to have an NSTEMI, was seen by cardiology, taken to cardiac [place]. Patient apparently was making threatening statements to staff members including doctors. Nurse informed police who came to speak with patient at the bedside and did a report and also a verbal warning. Patient was seen today laying in bed watching television. He was initially cooperative however was fairly vague and evasive. He claims that the cardiac cath went "all right" and states that he had an incident with the nurse earlier. He was fairly vague about his comments and states that "I was not going to shoot her or anybody". He states that he does not have access to guns or weapons. States that he understand that it is wrong however believes that it was a joke and wanted to move on from the conversation. He claims that it was not a threat and he states that he is willing to apologize to the nurse. States that he does not have any depression or anxiety, denies any problems with sleep or appetite at this time. At this time patient denies any suicidal or homical ideations, intent or plan. Patient denies any auditory, visual hallucinations and denies any paranoia or delusions. Patients admits to using cigarettes, denies any other recreational drug use PAST PSYCHIATRIC HISTORY: Patient has a a history of apparently going to the [facility] in [place] for mental health services and also was admitted there when he was 17 years old however did not share why he was admitted. He claims that he is not on any psychiatric medications and does not need any. Patient denies any psychiatric outpatient follow-up. Patient denies any history of suicide attempts in the past. Past Medical History: Coronary Artery Disease (CAD), Chest Pain / Angina, COPD, GERD/Reflux, Hyperlipidemia, Hypertension, Myocardial Infarction ([place]), Osteoarthritis (OA), Sleep Apnea/CPAP/BIPAP Additional Past Medical History / Comment(s): hiatal hernia, chronic back pain, L foot drop, numbness/tingling bilateral legs, HUSAM without device, states stents x7 Last Myocardial Infarction Date:: 11/11/22 History of Any Multi-Drug Resistant Organisms: None Reported Past Surgical History: Back Surgery, Cholecystectomy, Coronary Bypass/CABG, Heart Catheterization With Stent, Orthopedic Surgery Additional Past Surgical History / Comment(s): Back surg x 2 with cage. L tennis elbow surg. HEART STENTS X7. Colonoscopy. Lasik eye surgery bilaterally. Emergency Cabg [facility] Past Anesthesia/Blood Transfusion Reactions: No Reported Reaction Additional Past Anesthesia/Blood Transfusion Reaction / Comment(s): Pt received blood during CABG without reaction. Date of Last Stent Placement:: Oct 2022 Past Psychological History: Anxiety, Depression, PTSD Smoking Status: Current every day smoker Past Alcohol Use History: None Reported Past Drug Use History: None Reported ALLERGIES: as per EMR. CHEMICAL DEPENDENCY HISTORY: as per HPI. FAMILY PSYCHIATRIC/SUBSTANCE USE HISTORY: Denies SOCIAL HISTORY: Patient was born and raised in [facility]. 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 He currently lives alone in apartment, he is . He allegedly has 17 kids. He claims that he did go to [facility] in the [facility] due to 2 counts of "attempted murder".. MENTAL STATUS EXAM: General Appearance: Patient appears to be overweight, callaway/white hair, stated age is alert, manipulative at times, evasive. Patient appears to have fair hygiene and grooming wearing hospital gown with fair eye contact. Behavior: Patient is calmly lying in bed without any agitated behavior. Manipulative. Speech: Patient's speech is fluent and nonpressured. Mood/Affect: Patient reports their mood is "ok", affect is congruent Suicidality/Homicidality: Patient denies having any suicidal or homicidal ideation intent or plan. Perceptions: Patient denies any visual hallucinations and denies any auditory hallucinations Though content/process: There is no evidence of any delusional thought content and thought process is linear and goal-directed. Apologetic. Memory and concentration: AOX3, grossly intact for the purposes of this session. Can spell "WORLD" backwards Judgment and insight: Poor IMPRESSIONS: Adjustment disorder with disturbances and conduct antisocial personality disorder Nicotine dependence PLAN: -At this time patient DOES NOT meet criteria for inpatient psychiatric admission. -Would recommend the following medication changes/additions: Fly Tier attempted to offer patient medication to help with irritability/impulsivity or depression/anxiety however patient adamantly refused. -day worker to provide patient with outpatient mental health/psychiatry resources for appropriate follow up upon discharge -Fly Tier spoke with patient's nurse who states that she informed the 2 physicians involved of the threat of harm to them. She also called police to make them aware of the threat, police spoke with patient at the bedside earlier, unsure if charges will be brought on. -Patient is adamantly denying any access to guns or weapons and is apologizing for making those threats and claims that he did not mean them. -Communicated plan to patient's nurse -Psychiatry will sign off at this time -Please contact with any questions. 01/15/24 14:51
[2024-01-15] MEDS: SODIUM CHLORIDE 0.9% 1,000 ML IV SCH (15:58)
--- NOTE | 2024-01-15 16:08 | US ---
EXAMINATION TYPE: US carotid duplex BILAT DATE OF EXAM: 01/15/2024 COMPARISON: NONE CLINICAL INDICATION: Male, 68 years old with history of preop cardiac surgery; open heart TECHNIQUE: Carotid duplex ultrasound examination. Indirect Doppler criteria was utilized. FINDINGS: EXAM MEASUREMENTS: RIGHT: Peak Systolic Velocity (PSV) cm/sec ----- Right CCA: 93.8 ----- Right ICA: 119.4 ----- Right ECA: 161.4 ICA/CCA ratio: 1.3 RIGHT: End Diastole cm/sec ----- Right CCA: 12.9 ----- Right ICA: 17.6 ----- Right ECA: 7.7 LEFT: Peak Systolic Velocity (PSV) cm/sec ----- Left CCA: 108.1 ----- Left ICA: 162.4 ----- Left ECA: 109 ICA/CCA ratio: 1.5 LEFT: End Diastole cm/sec ----- Left CCA: 9.6 ----- Left ICA: 25.3 ----- Left ECA: 9.1 VERTEBRALS (direction of flow): Right Vertebral: Antegrade Left Vertebral: Antegrade Rhythm: Normal TOP SPOTTER NOTES: Bilateral plaque visualized. IMPRESSION: 1. 50-69% stenosis of the left carotid bifurcation. 2. Less than 50% stenosis of the right carotid bifurcation. Criteria for Assigning % of Stenosis / Diameter reduction (Estimation based on the indirect measurements of the internal carotid artery velocities (ICA PSV). 1. Normal (no stenosis)=ICA PSV < 125 cm/s: ratio < 2.0: ICA EDV<40 cm/s. 2. Less than 50% stenosis=ICA PSV < 125 cm/s: ratio < 2.0: ICA EDV<40 cm/s. 3. 50 to 69% stenosis=ICA PSV of 125 to 230 cm/s: ration 2.0 ? 4.0: ICA EDV 40-100 cm/s. 4. Greater than 70% stenosis to near occlusion= ICA PSV > 230 cm/s: ratio > 4.0: ICA EDV > 100 cm/s. 5. Near occlusion= ICA PSV velocities may be low or undetectable: variable ratio and ICA EDV. 6. Total occlusion=unable to detect flow.
--- NOTE | 2024-01-15 16:09 | US ---
EXAMINATION TYPE: US vein mapping BILAT DATE OF EXAM: 01/15/2024 3:48 PM COMPARISON: NONE CLINICAL INDICATION: Male, 68 years old with history of preop cardiac surgery; open heart left leg st ripped when he was 42 per patient. SIDE PERFORMED: Bilateral TECHNIQUE: Lower extremity saphenous vein is examined and measured utilizing real time linear array sonography. Patient History: Smoker: Yes Heart Disease: yes Previous DVT: no Vascular Surgery: yes Discoloration: no Hypertension: no Diabetes: no Paralysis: no Varicosities: no Edema: no DUPLEX FINDINGS: Greater Saphenous: Color flow seen Lesser Saphenous: Color flow seen Measurements in mm: Right Greater Saphenous: Groin: 7.8 x 6.6 mm High Thigh: 6.2 x 4.0 mm Mid Thigh: 3.8 x 3.5 mm Above Knee: 4.0 x 2.5 mm Knee: 4.2 x 2.8 mm Below Knee: 4.1 x 2.4 mm Mid Calf: 3.5 x 2.0 mm At Ankle: 3.9 x 2.5 mm Left Greater Saphenous: Groin: 8.9 x 9.1 mm IMPRESSION: 1. Bilateral GSV measurements listed above. 2. Performing surgeon to determine viability as conduit.
--- NOTE | 2024-01-15 16:10 | US ---
EXAMINATION TYPE: Pre-Operative Non-Invasive Evaluation of the hand for Potential Radial Artery [place] , Measurements only DATE OF EXAM: 01/15/2024 3:44 PM CLINICAL INDICATION: Male, 68 years old with history of measurements only; Left measurements only SIDE PERFORMED: Left TECHNIQUE: Radial artery is measured utilizing real time linear array sonography. Dominant hand: right Duplex Findings: Radial Artery: Color flow seen Measurements in mm, transverse view: Left Radial: Proximal: 5.7 x 4.7 mm Mid: 4.5 x 3.9 mm Distal: 3.2 x 3.2 mm IMPRESSION: 1. Left radial artery measurements listed above. 2. Performing surgeon to determine viability as conduit.
[2024-01-15 21:41] LABS: Hepatitis A Antibody IgM Nonreactive; Hepatitis B Core IgM Nonreactive; Hepatitis B Surface Antigen Nonreactive; Hepatitis C IgG Antibody Nonreactive
--- NOTE | 2024-01-16 00:25 | PN ---
PROGRESS NOTE CHIEF COMPLAINT: Acute NSTEMI. HISTORY OF PRESENT ILLNESS: This gentleman is doing fairly well and it is planned that he is going to go for cardiac cath today. Unfortunately, this morning, he made a comment to a nurse that he would shoot somebody if his cardiac cath did not go well today. This was reported to me and I recommended that his room be searched for weapons, which he denies he has. They also requested a psych consult and made the administration aware of this. When I confronted the patient, he said "joke." He was explained that was not funny. PHYSICAL EXAMINATION: LUNGS: He has occasional rales at the bases. CARDIAC: Normal. ABDOMEN: Soft, nontender. IMPRESSION: 1. Acute non ST segment elevation myocardial infarction. 2. Previous coronary artery bypass grafting. 3. Previous stenting. 4. Chronic obstructive pulmonary disease. 5. Depression. 6. Hyperlipidemia. PLAN: Await for results of cardiac cath. MMODL / IJN: [id number] /
[2024-01-16] MEDS: ATORVASTATIN 40 MG TAB PO SCH (08:37)
[2024-01-16] MEDS: ASPIRIN 81 MG PO SCH (08:37)
[2024-01-16 10:32] LABS: African American GFR (CKD) 33 (>60 ml/min/1.73 sqM); Anion Gap 10 mmol/L; Blood Urea Nitrogen 31 mg/dL (9-20); Calcium 9.3 mg/dL (8.4-10.2); Carbon Dioxide 23 mmol/L (22-30); Chloride 99 mmol/L (98-107); Glucose 115 mg/dL (74-99); Non-African American GFR(CKD) 28 (>60 ml/min/1.73 sqM); Potassium 5.1 mmol/L (3.5-5.1); Sodium 132 mmol/L (137-145)
--- NOTE | 2024-01-16 13:20 | P.PN ---
Subjective HISTORY OF PRESENT ILLNESS: The patient is a 68-year-old male with a known history of CAD, status post CABG over 20 years ago, severe ischemic cardiomyopathy with only 1 open graft who underwent stenting of the SVG to the LAD in October 2022, followed by Dr. Wiggins who presented with progressive dyspnea and chest discomfort. He has been complaining of discomfort with physical activity, worse yesterday at rest associated with worsening dyspnea. He had peripheral edema. He has symptoms of orthopnea. He did not have any dizziness or palpitations, no syncope. His activity is limited because of his back discomfort. After underwent cardiac catheterization in 2018 at that time recommendations were made regarding redo surgery but the patient declined at that time. He underwent a nuclear scan in July 2023 that showed a fixed anterior and posterior as well as apical defect with an ejection fraction of 28%, there was no reported inducible ischemia. His echocardiogram in October of this year showed an ejection fraction of 30 to 35% with moderate aortic regurgitation. On presentation he had mild troponin elevation. There was no acute ST segment changes. The patient has a known history of chronic kidney disease. He has stopped smoking 6 to 8 months ago and according to him he has been compliant with his medications. Medications: Zestril 2.5 mg daily, Norvasc 2.5 mg daily, spironolactone 50 mg daily, metoprolol succinate 50 mg daily, isosorbide 30 mg daily, Lasix 80 mg daily, ezetimibe 10 mg daily, fenofibrate, Plavix 75 mg daily, aspirin, Eliquis 2.5 mg twice a day, record, Farxiga 5 mg daily, Flexeril 01/14/2024 The patient was seen and examined resting comfortably in bed. He does not feel his breathing or chest feel much different. He has improvement in his edema. Renal function is stable. Hemoglobin 8.0, previously 8.6. 01/15/2024 Patient examined this morning at the bedside. Patient currently denies any c hest pain or pressure. He denies any shortness of breath. Vital signs are stable. 01/16/2024 Patient is s/p cardiac cath with Dr. Wiggins revealing patent SVG to LAD with intermediate in-stent restenosis with multiple layers of stents, intermediate to severe disease involving the first obtuse marginal branch and ramus intermedius, and chronically occluded RCA. CT surgery was consulted for evaluation for possible CABG. Patient remains on IV heparin. Patient denies any chest pain or pressure. He denies any shortness of breath. Vital signs are stable. Patient's hemoglobin is 7.6 today, down from 8.0 yesterday. Patient's kidney function is also worsened today with a creatinine of 2.31, up from 1.76 yesterday. PHYSICAL EXAM: VITAL SIGNS: Reviewed. GENERAL: Well-developed in no acute distress. NECK: Supple. No JVD or thyromegaly LUNGS: Respirations even and unlabored. Lungs essentially clear to auscultation bilaterally. HEART: Regular rate and rhythm. S1 and S2 heard. Systolic murmur noted EXTREMITIES: Normal range of motion. No clubbing or cyanosis. Peripheral pulses intact. No lower extremity edema ASSESSMENT: Non-STEMI Coronary artery disease with previous CABG and PCI, most recently SVG to LAD, October 2022 History of thrombectomy of SVG to LAD, TAVR 2022, recommended to be on anticoagulation for Dr. Wiggins at that time History of ventricular fibrillation, during cardiac catheterization, 10/2022 Ischemic cardiomyopathy, 30 to 35% Moderate aortic regurgitation Chronic heart failure with reduced EF, currently euvolemic Hypertension Hyperlipidemia Acute kidney injury Chronic kidney disease Acute on chronic anemia History of nicotine dependence PLAN: Continue IV heparin. Eliquis remains on hold. Will resume when cleared by CT surgery Continue additional current cardiac medications Await further recommendations from CT surgery Check Ferritin levels. If less than 50, will start ferous sulfate 325 TID Recheck kidney function in AM Further recommendations pending patient course Nurse practitioner note has been reviewed by physician. Signing provider agrees with the documented findings, assessment, and plan of care documented by [employer] as a scribe. Objective - Vital Signs Vital signs: Vital Signs Temp 98.2 F 01/16/24 03:06 Pulse 58 L 01/16/24 03:06 Resp 22 01/16/24 03:06 BP 92/54 01/16/24 03:06 Pulse Ox 98 01/16/24 03:06 FiO2 Intake & Output 01/15/24 01/16/24 01/16/24 18:59 06:59 18:59 Intake Total 510 225 Output Total 580 300 Balance -70 -300 225 Intake: IV 150 Intake, IV Titration 250 Amount Heparin Sod,Pork in 0.45% 250 NaCl 25,000 unit In 0.45 % NaCl 1 250ml.bag @ 12 UNITS/KG/HR 12.519 mls/hr IV .[id number] [facility] Rx#: [id number] Oral 110 225 Output: Urine 580 300 Other: Voiding Method Urinal Toilet Urinal - Labs CBC & Chem 7: 01/15/24 07:25 01/16/24 09:31 Labs: Abnormal Lab Results - Last 24 Hours (Table) 01/15/24 01/16/24 Range/Units 07:25 00:30 APTT 40.1 H 59.6 H (22.0-30.0) sec
--- NOTE | 2024-01-16 17:05 | P.PN ---
Subjective Progress Note Date: 01/16/24 Principal diagnosis: This is a 68-year-old gentleman who follows outpatient with Dr. Gee for primary care and Dr. Wiggins for cardiology. He has a past medical history significant for coronary artery disease with multiple stents as well as thrombectomy, most recent PCI was to the SVG in 10/2022, as well as coronary artery bypass graft surgery approximated 20 years ago, ischemic cardiomyopathy, chronic heart failure with reduced EF, hypertension, hyperlipidemia, chronic kidney disease, current tobacco use, COPD, obstructive sleep apnea, chronic back pain with history of back surgery, and family history of heart disease. He presented to [facility] with complaints of significant chest pain which woke him from sleep associated with shortness of breath and diaphoresis. Labs completed in the ER revealed, WBC 5.1, hemoglobin 8.6, platelet count 1 45,000, creatinine 1.64, BNP 5640, troponin 0.15 which did elevate to 0.178. EKG demonstrated sinus rhythm with inferior wall myocardial infarction although possibly old, nonspecific T wave inversion anteriorly. Chest x-ray revealed cardiomegaly. The patient was ruled in for non-STEMI and was admitted for evaluation and treatment with consultation placed to cardiology. The gentleman underwent heart catheterization today by Dr. Ni which revealed patent SVG to the LAD with intermediate in-stent restenosis with multiple layers of stents, intermediate to severe disease involving the first obtuse marginal branch and ramus intermedius, as well as chronically occluded right coronary artery. Due to these findings consultation was placed to cardiothoracic surgery for recommendations regarding surgical revascularization. The most recent echocardiogram completed in this hospital was done November 24, 2023 which revealed impaired LV systolic function with EF 30-35% and moderate aortic insufficiency. Patient was seen and examined in follow-up today January 16, 2024 at his bedside on the third floor cardiac stepdown unit. The patient is laying in bed, is awake, alert, oriented x 3 and is in no acute apparent distress. Heparin drip remains infusing per protocol. The patient denies any further complaints of shortness of breath chest pain, or chest pressure. Remote telemetry is showing normal sinus rhythm heart rate 64 bpm. Oxygen saturations are 98% on 2 L nasal cannula and he is achieving 2000 mL on his incentive spirometry with encouragement. As part of his preoperative testing a 5 m walk test was completed with the patient today, he tolerated the 5 m walk test without complaints with time 1: 5.83 seconds, time 2: 6.28 seconds, time 3: 8.45 seconds. The patient has a walker present at his bedside, although denies use of needing a walker. As part of his preoperative workup a carotid Doppler study was completed yesterday January 15, 2024 which demonstrated a 50 to 69% stenosis of the left carotid bifurcation and a less than 50% stenosis of the right carotid bifurcation. A bedside FEV1 was completed which showed a predicted value of 43% with a base volume of 1.41 L. Laboratory results were reviewed. Objective - Vital Signs Vital signs: Vital Signs Temp 97.7 F 01/16/24 08:40 Pulse 67 01/16/24 11:30 Resp 19 01/16/24 11:30 BP 86/51 01/16/24 11:30 Pulse Ox 97 01/16/24 11:30 FiO2 Intake & Output 01/15/24 01/16/24 01/16/24 18:59 06:59 18:59 Intake Total 510 475 Output Total 580 300 240 Balance -70 -300 235 Intake: IV 150 Intake, IV Titration 250 250 Amount Heparin Sod,Pork in 0.45% 250 250 NaCl 25,000 unit In 0.45 % NaCl 1 250ml.bag @ 12 UNITS/KG/HR 12.519 mls/hr IV .[id number] [facility] Rx#: [id number] Oral 110 225 Output: Urine 580 300 240 Other: Voiding Method Urinal Toilet Toilet Urinal Urinal - Exam CONSTITUTIONAL: Laying in bed on the cardiac stepdown unit, appears comfortable, cooperative, no apparent acute distress. HEENT: Neck is supple, no JVD, no lymphadenopathy. RESPIRATORY: Lungs sounds essentially clear throughout, diminished to his bilateral bases. Respirations are symmetrical and nonlabored. Currently on 2 L nasal cannula with oxygen saturations 98%. Able to achieve 2000 mL on his incentive spirometry. Strong cough. CARDIOVASCULAR: Regular rhythm and rate. S1 and S2 present, negative for S3, or gallop with soft systolic murmur. GASTROINTESTINAL: Abdomen soft, nontender, nondistended. Active bowel sounds present 4 quadrants. Tolerating diet. Passing flatus. No guarding or rigidity. GENITOURINARY: Continues to void. INTEGUMENTARY: Skin is warm and dry with no evidence of clubbing or cyanosis. NEUROLOGIC: Cranial nerves II through XII intact. No focal deficits. MUSKULOSKELETAL: Able to move all extremities, strength equal bilaterally, generalized weakness. PSYCHIATRIC: Alert and oriented to person place and time, appropriate affect, intact judgment and insight. - Allied health notes Allied health notes reviewed: nursing - Labs CBC & Chem 7: 01/15/24 07:25 01/16/24 09:31 Labs: Abnormal Lab Results - Last 24 Hours (Table) 01/16/24 01/16/24 Range/Units 00:30 09:31 APTT 59.6 H (22.0-30.0) sec Sodium 132 L (137-145) mmol/L BUN 31 H (9-20) mg/dL Creatinine 2.31 H (0.66-1.25) mg/dL Glucose 115 H (74-99) mg/dL Assessment and Plan Assessment: Coronary artery disease with multiple stents as well as thrombectomy, most recent PCI was to the SVG in 10/2022, as well as coronary artery bypass graft surgery approximated 20 years ago, NSTEMI this admission Ischemic cardiomyopathy, EF 30-35% Acute on chronic heart failure with reduced EF Moderate aortic insuffiency Chest pain, SOB secondary to above Hypertension Hyperlipidemia, treated, cholesterol 132, LDL 84.5 Chronic kidney disease Current tobacco use COPD Obstructive sleep apnea Chronic back pain with history of back surgery Family history of heart disease Plan: Preoperative testing remains in progress, once preoperative testing has been obtained further recommendations to follow regarding treatment recommendations. A 5 m walk test was completed with the patient, tolerated well. Will need to be off Plavix for at least 7 days prior to any surgical intervention. Heparin drip management recommendations per cardiology service. Consult pulmonary/critical care medicine, FEV1 43% of predicted value with a ba se volume of 1.41 liters. Medical management other comorbidities per primary care service. Continue to maximize medical management with aspirin, statin and beta-dorinda. Reinforced the importance of smoking cessation. A clinical frailty score score was calculated with the result of 5 mildly frail. More recommendations to follow based on patient's clinical course and as his preoperative testing has been obtained. Time with Patient: Greater than 30
[2024-01-16 19:54] LABS: Glucose,Whole Blood 91 mg/dL (70-110)
--- NOTE | 2024-01-16 21:37 | PN ---
PROGRESS NOTE DATE OF SERVICE: 01/16/2024 CHIEF COMPLAINT: NSTEMI and coronary artery disease. HISTORY OF PRESENT ILLNESS: This gentleman is doing fairly well and he is not having any pain. He is being evaluated by Cardiac Surgery for possible repeat CABG. PHYSICAL EXAMINATION: CHEST: Clear. CARDIAC: Normal. ABDOMEN: Soft, nontender. IMPRESSION: 1. Acute non ST segment elevation myocardial infarction. 2. Chronic atherosclerotic heart disease. 3. Atherosclerotic cardiomyopathy. 4. Chronic obstructive pulmonary disease. PLAN: He is being worked up to see if he is a candidate for another coronary artery bypass graft. MMODL / IJN: [id number] /
[2024-01-17 03:45] VITALS: TEMP 98.4
[2024-01-17] MEDS: SYMBICORT 160-4.5 MCG INHALER INHALATION SCH (08:03)
[2024-01-17] MEDS: IPRATROPIUM-ALBUTEROL 3 ML NEB INHALATION SCH (08:03)
--- NOTE | 2024-01-17 08:44 | P.CNPUL ---
History of Present Illness Consult date: 01/17/24 Requesting physician: Phillip Anthony Reason for consult: COPD Chief complaint: Chest pain History of present illness: I am seeing this patient in new consultation today 01/17/2024 for pulmonary cl earance and routine postoperative pulmonary management for tentative cardiac surgical revascularization. Patient is a 68-year-old white male with past medical history significant for coronary artery disease status post CABG over 20 years ago in [place] followed by subsequent PCI/stenting, ischemic cardiomyopathy, hyperlipidemia, hypertension, chronic kidney disease, chronic ongoing tobacco dependence, COPD, obstructive sleep apnea, among other things. Patient presented to [facility] emergency department on 01/13/2024 complaining of significant chest pain and associated shortness of breath/diaphoresis, and he was admitted with a non-ST elevation IN. He states that he first noticed this chest pain after locking his keys in his car, and attempting to open the door 3 days prior to admission. Following this event, he was still having intermittent chest pain and associated dyspnea. On 01/15/2024, he underwent heart catheterization which indicated a patent SVG to LAD with intermediate in-stent restenosis, intermediate to severe disease involving the first OM branch and ramus intermedius, and a chronically occluded RCA. The cardiothoracic team was then asked to evaluate this patient. He is in the process of a preoperative workup. We are asked to see this patient for preop erative pulmonary clearance and postoperative pulmonary management. A bedside FEV1 was performed which was 43% of predicted or 1.41 L indicating a severe degree of obstruction. Patient does continue to smoke approximately 4 cigarettes/day. He does wear home oxygen, 3 L/min, as needed at home. 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 Chest x-ray shows cardiomegaly, prior surgical changes, and a small to moderate size right-sided pleural effusion, which appears chronic. He is currently sitting up in bed, on 3 L/min nasal cannula, in no acute distress. He is on a heparin infusion per protocol, which is currently therapeutic. Apparently, earlier in the patient's admission he expressed some homicidal ideation towards physicians, currently denies any homicidal or suicidal ideation. He states that this was a misunderstanding. CBC includes a WBC count of 5.8, hemoglobin 7.6, hematocrit 25.6, platelets 129. BMP from yesterday includes a sodium 132, potassium 5.1, chloride 99, serum bicarb 23, BUN 31, creatinine 2.31, glucose 115. Patient's creatinine is on the rise, likely a component of contrast-induced nephropathy. Vital signs are stable. Review of Systems REVIEW OF SYSTEMS: CONSTITUTIONAL: Denies any recent significant weight loss or weight gain. EYES: Denies change in vision. EARS, NOSE, MOUTH, THROAT: Denies headaches, denies sore throat. CARDIOVASCULAR: Denies palpitations or syncopal episodes. Admits intermittent, substernal, chest pain starting 2 to 3 days prior to admission. Currently no chest pain. Denies any lower extremity swelling. Denies any heart palpitations, lightheadedness, or syncopal events. RESPIRATORY: Admits associated shortness of breath. Denies cough, wheezing, chest congestion. GASTROINTESTINAL: Denies change in appetite, abdominal pain, nausea and vomitin g, or diarrhea GENITOURINARY: Denies hematuria, denies infections. MUSKULOSKELETAL: Denies pain, denies swelling. INTEGUMENTARY: Denies rash, denies eczema. NEUROLOGICAL: Denies recent memory loss, no recent seizure activity. PSYCHIATRIC: Denies anxiety, denies depression. Denies any further homicidal ideations. No suicidal ideations. HEMATOLOGIC/LYMPHATIC: Denies anemia, denies enlarged lymph node Past Medical History Past Medical History: Coronary Artery Disease (CAD), Chest Pain / Angina, COPD, GERD/Reflux, Hyperlipidemia, Hypertension, Myocardial Infarction (IN), Osteoarthritis (OA), Sleep Apnea/CPAP/BIPAP Additional Past Medical History / Comment(s): hiatal hernia, chronic back pain, L foot drop, numbness/tingling bilateral legs, HUSAM without device, states stents x7 Last Myocardial Infarction Date:: 11/11/22 History of Any Multi-Drug Resistant Organisms: None Reported Past Surgical History: Back Surgery, Cholecystectomy, Coronary Bypass/CABG, Heart Catheterization With Stent, Orthopedic Surgery Additional Past Surgical History / Comment(s): Back surg x 2 with cage. L tennis elbow surg. HEART STENTS X7. Colonoscopy. Lasik eye surgery bilaterally. Emergency Cabg [facility] Past Anesthesia/Blood Transfusion Reactions: No Reported Reaction Additional Past Anesthesia/Blood Transfusion Reaction / Comment(s): Pt received blood during CABG without reaction. Date of Last Stent Placement:: Oct 2022 Past Psychological History: Anxiety, Depression, PTSD Additional Psychological History / Comment(s): He ambulates with a cane. He drives. Smoking Status: Current every day smoker Past Alcohol Use History: None Reported Additional Past Alcohol Use History / Comment(s): Pt states he started smoking in 1967 and used to smoke 3ppd down to maybe less than 1 pack every 4-5 days Past Drug Use History: None Reported Additional Drug Use History / Comment(s): states does not use cocaine anymore. - Past Family History Father Family Medical History: Coronary Artery Disease (CAD), Deep Vein Thrombosis (DV T), GERD/Reflux, Hyperlipidemia Additional Family Medical History / Comment(s): Father of a IN in his 80's Mother Family Medical History: Coronary Artery Disease (CAD) Additional Family Medical History / Comment(s): Mother of a IN at the age of 76yrs. Sister(s) Family Medical History: Cancer Additional Family Medical History / Comment(s): Lung cancer. Medications and Allergies Home Medications Medication Instructions Recorded Confirmed Type HYDROcodone/APAP 10-325MG [[place] 1 tab PO QID PRN 02/22/15 01/13/24 History 10-325] rOPINIRole HCL [Requip] 0.25 mg PO HS 09/29/17 01/13/24 History Apixaban [Eliquis] 2.5 mg PO BID #60 tab 11/18/22 01/13/24 Rx Ezetimibe [Zetia] 10 mg PO DAILY #90 tab 11/18/22 01/13/24 Rx Fenofibrate [Lofibra] 160 mg PO DAILY #30 tab 12/01/22 01/13/24 Rx Potassium Chloride ER [K-Dur 20] 20 meq PO BID 12/18/22 01/13/24 History Fluticasone Nasal [place] [Flonase 1 spray EA NOSTRIL BID PRN 01/27/23 01/13/24 History Nasal [place]] Metoprolol Succinate (ER) [Toprol 50 mg PO DAILY #30 tab 02/01/23 01/13/24 Rx XL] ALPRAZolam [Xanax] 2 mg PO TID PRN 03/15/23 01/13/24 History Clopidogrel [Plavix] 75 mg PO DAILY 08/21/23 01/13/24 History Cyclobenzaprine [Flexeril] 10 mg PO TID PRN 08/21/23 01/13/24 History Diclofenac Sodium Gel [Voltaren 1% 1 applic TOPICAL QID PRN 08/21/23 01/13/24 History Gel] Furosemide [Lasix] 80 mg PO DAILY 08/21/23 01/13/24 History Isosorbide Mononitrate ER [Imdur] 30 mg PO DAILY 08/21/23 01/13/24 History Omeprazole [PriLOSEC] 20 mg PO AC-BID 08/21/23 01/13/24 History allopurinoL [Zyloprim] 100 mg PO DAILY 08/21/23 01/13/24 History amLODIPine [Norvasc] 2.5 mg PO DAILY 08/21/23 01/13/24 History lisinopriL [Zestril] 2.5 mg PO DAILY 08/21/23 01/13/24 History Lidocaine 5% Patch [Lidoderm 5% 1 patch TRANSDERM DAILY 11/24/23 01/13/24 History Patch] Albuterol Inhaler [Ventolin Hfa 1 - 2 puff INHALATION RT-Q6H PRN 12/22/23 01/13/24 History Inhaler] Aspirin 81 mg PO DAILY #100 tab 12/24/23 01/13/24 Rx Dapagliflozin Propanediol [Farxiga] 5 mg PO DAILY #30 tab 12/24/23 01/13/24 Rx Spironolactone [Aldactone] 50 mg PO DAILY #30 tab 12/24/23 01/13/24 Rx Nitroglycerin Sl Tabs [Nitrostat] 0.4 mg SL Q5M PRN 01/13/24 01/13/24 History Allergies Allergy/AdvReac Type Severity Reaction Status Date / Time latex Allergy Swelling Verified 12/22/23 18:34 atorvastatin [From Lipitor] AdvReac JOINT PAIN Verified 12/22/23 18:34 Physical Exam Vitals: Vital Signs Temp Pulse Resp BP Pulse Ox 01/17/24 00:00 52 L 16 96/58 96 01/16/24 20:00 98.2 F 70 18 104/60 97 01/16/24 16:05 63 17 99/59 98 01/16/24 11:30 67 19 86/51 97 01/16/24 08:40 97.7 F 61 20 104/64 100 01/16/24 03:06 98.2 F 58 L 22 92/54 98 01/16/24 03:00 58 L 22 Intake and Output 01/16/24 01/16/24 01/17/24 14:59 22:59 06:59 Intake Total 475 480 227.815 Output Total 240 350 Balance 235 130 227.815 Intake: Intake, IV Titration 250 227.815 Amount Heparin Sod,Pork in 0.45% 250 227.815 NaCl 25,000 unit In 0.45 % NaCl 1 250ml.bag @ 12 UNITS/KG/HR 12.519 mls/hr IV .[id number] [facility] Rx#: [id number] Oral 225 480 Output: Urine 240 350 Other: Voiding Method Toilet Toilet Urinal Urinal GENERAL EXAM: Alert, 68-year-old white male, sitting at the edge of the bed, comfortable in no apparent distress. HEAD: Normocephalic and atraumatic EYES: Normal reaction of pupils, equal size. NOSE: Clear with pink turbinates. THROAT: No erythema or exudates. NECK: No masses, no JVD. CHEST: No chest wall deformity. LUNGS: Equal air entry with no crackles, wheeze, rhonchi or dullness. On 3 L/min nasal cannula. No conversational dyspnea or accessory muscle use.. CVS: S1 and S2 normal with no audible murmur, regular rhythm. No extra heart sounds ABDOMEN: No hepatosplenomegaly, active bowel sounds, no guarding or rigidity. SPINE: No scoliosis or deformity SKIN: No rashes CENTRAL NERVOUS SYSTEM: No focal deficits, tone is normal in all 4 extremities. EXTREMITIES: There is no peripheral edema, clubbing, or cyanosis. Peripheral pulses are intact. Results - Laboratory Findings CBC and BMP: 01/15/24 07:25 01/17/24 09:12 PT/INR, D-dimer PT 11.6 sec (10.0-12.5) 01/13/24 05:41 INR 1.1 (<1.2) 01/13/24 05:41 Abnormal lab findings: Abnormal Labs 01/13/24 01/13/24 01/13/24 05:41 05:41 05:41 RBC 3.48 L Hgb 8.6 L Hct 28.2 L MCH 24.6 L MCHC 30.4 L RDW 18.1 H Plt Count 145 L APTT Sodium 135 L Potassium 3.4 L BUN Creatinine 1.64 H Glucose 104 H Ferritin Total Bilirubin 1.4 H Troponin I 0.150 H* HDL Cholesterol 01/13/24 01/13/24 01/13/24 08:29 10:28 14:31 RBC Hgb Hct MCH MCHC RDW Plt Count APTT 33.9 H Sodium Potassium BUN Creatinine Glucose Ferritin Total Bilirubin Troponin I 0.178 H* 0.161 H* HDL Cholesterol 01/13/24 01/14/24 01/14/24 21:25 05:06 05:06 RBC Hgb Hct MCH MCHC RDW Plt Count APTT 37.9 H 47.7 H Sodium 134 L Potassium BUN 22 H Creatinine 1.67 H Glucose Ferritin Total Bilirubin Troponin I HDL Cholesterol 25.70 L 01/14/24 01/15/24 01/15/24 10:52 07:25 07:25 RBC 3.21 L Hgb 8.0 L Hct 26.8 L MCH 24.8 L MCHC 29.7 L RDW 18.1 H Plt Count 128 L APTT 40.1 H Sodium 134 L Potassium BUN 27 H Creatinine 1.76 H Glucose 100 H Ferritin Total Bilirubin Troponin I HDL Cholesterol 01/15/24 01/16/24 01/16/24 07:25 00:30 09:31 RBC 3.09 L Hgb 7.6 L Hct 25.6 L MCH 24.8 L MCHC 29.9 L RDW 18.0 H Plt Count 129 L APTT 59.6 H Sodium 132 L Potassium BUN 31 H Creatinine 2.31 H Glucose 115 H Ferritin Total Bilirubin Troponin I HDL Cholesterol 01/16/24 01/17/24 09:31 00:21 RBC Hgb Hct MCH MCHC RDW Plt Count APTT 80.2 H Sodium Potassium BUN Creatinine Glucose Ferritin 20.7 L Total Bilirubin Troponin I HDL Cholesterol - Diagnostic Findings Chest x-ray: image reviewed Assessment and Plan Assessment: Acute non-ST elevation IN Coronary artery disease, with history of previous CABG and subsequent PCI/stents. Most recent PCI/stent was of the SVG to LAD on 11/11/2022. Follow- up heart catheterization this admission demonstrated a patent SVG to LAD with intermediate in-stent restenosis, intermediate to severe disease involving the first OM branch and ramus intermedius, and a chronically occluded RCA. Surgical revascularization is being proposed Ischemic cardiomyopathy, with an ejection fraction of 30 to 35% Moderate aortic insufficiency Left-sided carotid artery stenosis, carotid artery Doppler estimates 50 to 69% stenosis of the left carotid bifurcation Hyperlipidemia Hypertension Chronic obstructive pulmonary disease, stable Chronic hypoxemic respiratory failure, utilizes 3 L/min as needed at home Current ongoing tobacco dependence Obstructive sleep apnea Chronic right-sided pleural effusion History of asbestos exposure Acute on chronic kidney disease Chronic anemia Plan: Patient's medications, labs, chest x-ray reviewed Bedside FEV1 indicates an FEV1 43% of predicted or 1.41 L Technically, the patient is at high risk for postoperative pulmonary compli cations including prolonged ventilation/respiratory failure, pulmonary infections, atelectasis, exacerbation of his COPD, etc. Would like to optimize the patient's respiratory status with a combination of bronchodilators and Symbicort inhaler Patient currently on a heparin infusion per protocol. Denies any further chest pain. Plan is for tentative surgical revascularization redo. Currently, co ntinuing his preoperative workup. STS score being calculated. We will continue to follow this patient during his postoperative recovery and assist him in liberation from the mechanical ventilator. I have personally seen and examined the patient, performed the documentation and the assessment and plan as written. Number of minutes spent on the visit:20 This is a joint with the nurse practitioner. I met the patient for a preoperative pulmonary evaluation. The patient's has extensive history of coronary artery disease and the patient has undergone previous coronary artery bypass surgery and previous PCI and stenting of the SVG to LAD and follow-up cardiac catheterization that was done during this current admission showed patent SVG to LAD and intermediate in-stent restenosis and intermediate to severe disease involving the first OM branch and ramus intermedius and chronically occluded RCA. The patient is being considered for redo bypass surgery. Noted the patient has ischemic cardiomyopathy with impaired LV function. Patient also has small bilateral pleural effusion right more than left and is currently in hypoxic respiratory failure at 3 L and the patient lives at home O2 on a as needed basis. He has hypertension, hyperlipidemia and history of obstructive sleep apnea and is lateralizing CPAP therapy. He also has a component of an acute kidney injury and the creatinine is at the rise of 3.25. Based on the overall picture, this patient obviously carries a higher risk of developing postoperative pulmonary complications. This will include increased risk of prolonged respiratory failure, pneumonias, atelectasis, prolonged intubation mechanical ventilation. Would like to discuss this further with the cardiac team. His baseline FEV1 has measured during this current hospitalization is in order of 1.4 L which is 43% of predicted. The priority for now is to optimize his overall cardiac condition, monitor renal function as the patient has sustained acute kidney injury postcardiac catheterization. He remains on IV heparin. Remains on Symbicort as maintenance and DuoNeb updrafts and he was also provided incentive spirometer. Remains on Lasix 40 mg p.o. twice a day and is also on EDER inhibitor's. Recommend nephrology consultation. Will calculate his postoperative respiratory risk. Based on my opinion, the patient has and carries an increased risk of developing postoperative pulmonary complications based on the current condition and comorbidities. This evaluation was done more than 30 minutes. Time with Patient: Greater than 30
[2024-01-17 09:53] LABS: African American GFR (CKD) 22 (>60 ml/min/1.73 sqM); Anion Gap 13 mmol/L; Blood Urea Nitrogen 43 mg/dL (9-20); Calcium 8.8 mg/dL (8.4-10.2); Carbon Dioxide 19 mmol/L (22-30); Chloride 98 mmol/L (98-107); Glucose 103 mg/dL (74-99); Non-African American GFR(CKD) 19 (>60 ml/min/1.73 sqM); Potassium 5.2 mmol/L (3.5-5.1); Sodium 130 mmol/L (137-145)
[2024-01-17 11:38] VITALS: BP 89/46; RESP 16
[2024-01-17 11:39] VITALS: PULSE 60
[2024-01-17] MEDS ORDERED: SODIUM CHLORIDE 0.9% 1,000 ML IV SCH (12:30)
[2024-01-17] MEDS ORDERED: FERROUS SULFATE 325 MG TAB PO SCH (12:30)
--- NOTE | 2024-01-17 12:57 | P.PN ---
Progress Note - Text Patient left AMA prior to being seen by cardiology today
--- NOTE | 2024-01-17 23:25 | DS ---
DISCHARGE SUMMARY CHIEF COMPLAINT: Chest pain, shortness of breath. HISTORY OF PRESENT ILLNESS AND PHYSICAL EXAMINATION: Details of this man's history and physical can be found in the initial workup. LABORATORY STUDIES: While he was in the hospital, he had laboratory studies, details of which can be found in the laboratory section of his chart. COURSE IN THE HOSPITAL: After admission, he was placed on bedrest, started on intravenous fluids, and was found to have elevated troponins. It was determined that he would have an NSTEMI. [facility] was taken to [facility], where after his procedure, it was felt that he may best benefit from a repeat coronary artery bypass graft. He was being evaluated by Cardiac Surgery for the procedure when he suddenly signed out against medical advice on the . FINAL DIAGNOSES: 1. Acute non ST elevation myocardial infarction. 2. Advanced coronary artery disease, status post coronary artery bypass graft and multiple stents. 3. Hyperlipidemia. 4. Chronic obstructive pulmonary disease. 5. Congestive heart failure. OPERATIONS: Cardiac cath. CONSULTATIONS: Cardiology and Cardiac Surgery. He is improved. MMDEYANIRA / CALLI: [id number] /
--- NOTE | 2024-01-18 19:12 | CDI ---
Documentation Clarification Form Date: 01/18/2024 06:42:57 PM From: Ewa Black Phone: Admit Date: 01/13/2024 07:20:00 AM Patient Name: Israel Simmons Visit Number: [id number] Discharge Date: 01/17/2024 12:57:00 PM ATTENTION: The Clinical Documentation Specialists (CDI) and [facility] Coding Staff appreciate your assistance in clarifying documentation. Please respond to the clarification below the line at the bottom and electronically sign. The CDI & [facility] Coding staff will review the response and follow-up if needed. Please note: Queries are made part of the Legal Health Record. If you have any questions, please contact the author of this message via ITS. Dr. Alexx Gee Hypoxic respiratory failure per Consult 01/16. Based on this information and the findings below, is there an additional diagnosis that is clinically appropriate for this patient? History/Risk Factors: 68yo M, NSTEMI, CAD sp stent/CABG, ICM, COPD, PARISH on CKD, HTN w ACSHF, CHRF, HUSAM, Jean carotid artery stenosis Tobacco use: yes Home oxygen: utilizes 3 L/min as needed at home Clinical Indicators: Vital signs: 01/16/24 T 97.7 P 67 R 19BP 86/51 POx 97 Treatment: Bedside FEV1 indicates an FEV1 43% of predicted or 1.41 L. Technically, the patient is at high risk forpostoperativepulmonary complications includingprolongedventilation/respiratory failure, pulmonary infections,atelectasis,exacerbation of his COPD, etc. Would like to optimize the patient's respiratory status with a combination of bronchodilators and Symbicort inhaler. Pt left AMA Is there an additional diagnosis that is clinically appropriate for this patient? [ ] Acute on Chronic Hypoxic Respiratory Failure [ ] Chronic Hypoxic Respiratory Failure [ ] Other Diagnosis, please specify [ ] Unable to determine (Template Last Revised: October 2023) MTDD
--- NOTE | 2024-01-18 19:18 | CDI ---
Documentation Clarification Form Date: 01/18/2024 07:12:00 PM From: Ewa Black Phone: Admit Date: 01/13/2024 07:20:00 AM Patient Name: Israel Simmons Visit Number: [id number] Discharge Date: 01/17/2024 12:57:00 PM ATTENTION: The Clinical Documentation Specialists (CDI) and [facility] Coding Staff appreciate your assistance in clarifying documentation. Please respond to the clarification below the line at the bottom and electronically sign. The CDI & [facility] Coding staff will review the response and follow-up if needed. Please note: Queries are made part of the Legal Health Record. If you have any questions, please contact the author of this message via ITS. Dr. Alexx Gee Unspecified CKD is documented Consult 01/12 and following Progress Notes. Additional clarification regarding the stage of CKD is requested. History/Risk Factors: 68yo M, NSTEMI, CAD sp stent/CABG, ICM, COPD, PARISH w contrast-induced nephropathy, CKD, HTN w ACSHF, CHRF, HUSAM, Jean carotid artery stenosis Clinical Indicators: BUN: 19 Cr: 1.64 GFR: 19-49 Treatment: monitored Please clarify the stage of the CKD, if known: [ ] CKD Stage 3a [ ] CKD Stage 3b [ ] CKD Stage 4 [ ] Other, please specify [ ] Unable to determine Reference: National Kid[employer] Stage 1 eGFR = 90 and kidney damage for =3 months Stage 2 eGFR 60-89 and kidney damage for =3 months Stage 3a eGFR 45-59 and kidney damage for =3 months Stage 3b eGFR 30-44 and kidney damage for =3 months Stage 4 eGFR 15-29 r and kidney damage for =3 months Stage 5 eGFR <15 and kidney damage for =3 months (Template last revised: October 2023) MTDD
--- NOTE | 2024-01-27 05:35 | MISC ---
MISCELLANOUS REPORT Asked about his GFR, unable to answer. Brother believed he was stage IV. MMODL / IJN: [id number] /
== END 2024-01-17 12:57 | disposition left against medical advice (07) | DRG 280 ==
LOC: EC 05:09 → 3SCARD 07:20
PROVIDERS: ADMIT Family Medicine; ATTEND Family Medicine
PROC: B2111ZZ Fluoroscopy of Multiple Coronary Arteries using Low Osmolar Contrast (ICD-10-PCS; 2024-01-15)
PROC: B2121ZZ Fluoroscopy of Single Coronary Artery Bypass Graft using Low Osmolar Contrast (ICD-10-PCS; 2024-01-15)
PROC: 4A023N7 Measurement of Cardiac Sampling and Pressure, Left Heart, Percutaneous Approach (ICD-10-PCS; principal; 2024-01-15 10:40)
DX: T82.855A Stenosis of coronary artery stent, initial encounter (principal); I21.4 Non-ST elevation (NSTEMI) myocardial infarction; I50.23 Acute on chronic systolic (congestive) heart failure; N17.9 Acute kidney failure, unspecified; I13.0 Hypertensive heart and chronic kidney disease with heart failure and stage 1 through stage 4 chronic kidney disease, or unspecified chronic kidney disease; J96.11 Chronic respiratory failure with hypoxia; I25.110 Atherosclerotic heart disease of native coronary artery with unstable angina pectoris; N18.4 Chronic kidney disease, stage 4 (severe); J44.9 Chronic obstructive pulmonary disease, unspecified; F60.2 Antisocial personality disorder; I35.1 Nonrheumatic aortic (valve) insufficiency; D63.1 Anemia in chronic kidney disease; Z99.81 Dependence on supplemental oxygen; N14.11 Contrast-induced nephropathy; I65.23 Occlusion and stenosis of bilateral carotid arteries; R45.850 Homicidal ideations; F32.A Depression, unspecified; E78.5 Hyperlipidemia, unspecified; G47.33 Obstructive sleep apnea (adult) (pediatric); G89.29 Other chronic pain; M21.372 Foot drop, left foot; F43.25 Adjustment disorder with mixed disturbance of emotions and conduct; T50.916A Underdosing of multiple unspecified drugs, medicaments and biological substances, initial encounter; Z53.29 Procedure and treatment not carried out because of patient's decision for other reasons; I25.2 Old myocardial infarction; I25.5 Ischemic cardiomyopathy; Z77.090 Contact with and (suspected) exposure to asbestos; T50.8X5A Adverse effect of diagnostic agents, initial encounter; Y83.1 Surgical operation with implant of artificial internal device as the cause of abnormal reaction of the patient, or of later complication, without mention of misadventure at the time of the procedure; Z79.02 Long term (current) use of antithrombotics/antiplatelets; Z79.899 Other long term (current) drug therapy; Z79.01 Long term (current) use of anticoagulants; Z79.82 Long term (current) use of aspirin; Z79.84 Long term (current) use of oral hypoglycemic drugs; Z91.040 Latex allergy status; Z95.1 Presence of aortocoronary bypass graft; Z82.49 Family history of ischemic heart disease and other diseases of the circulatory system; Z86.79 Personal history of other diseases of the circulatory system; Z87.891 Personal history of nicotine dependence
CPT/HCPCS: 36415; 71046; 80048; 80053; 80061; 80074; 82728; 83036; 83735; 83880; 84443; 84484; 85025; 85027; 85610; 85730; 87070; 93005; 93459; 93880; 93970; 94150; 94640; 94760; 96374; 96375; 99285

== ENCOUNTER 2024-01-17 22:54 | Inpatient (IN) | payer MEDICARE, OTHER ==
[2024-01-17 23:59] LABS: Anisocytosis Slight; Basophils % (A) 1 %; Eosinophils % (A) 1 %; HCT 26.9 % (39.0-53.0); HGB 8.2 gm/dL (13.0-17.5); Hypochromasia Marked; Lymphocytes % (A) 13 %; MCH 24.9 pg (25.0-35.0); MCHC 30.4 g/dL (31.0-37.0); Mean Platelet Volume 9.1; Monocytes # (A) 0.5 k/uL (0-1.0); Monocytes % (A) 7 %; Neutrophils # (A) 5.7 k/uL (1.3-7.7); Neutrophils % (A) 76 %; Platelet Count 139 k/uL (150-450); Poikilocytosis Slight; RBC 3.28 m/uL (4.30-5.90); RDW 18.4 % (11.5-15.5); WBC 7.5 k/uL (3.8-10.6)
[2024-01-18] MEDS ORDERED: NALOXONE 0.4 MG/ML 1 ML VIAL IV PRN (00:27)
--- NOTE | 2024-01-18 00:27 | ED ---
General Adult HPI - General Chief complaint: Shortness of Breath Stated complaint: MICKIE Time Seen by Provider: 01/17/24 23:09 Source: EMS Mode of arrival: EMS - History of Present Illness Initial comments: Israel is a 68 yo M with extensive past medical history and recent admission to the hospital for intractable chest pain with known CAD status post CABG and a cardiac cath that had evidence of severe CAD in the bypassed vessels. Patient was undergoing workup for need for possible repeat CABG however patient states that he got confused because he felt like 1 doctor told him he needed another surgery and another doctor told him he might not be having it patient became for frustrated with not knowing the plan and decided to leave AMA. Patient states he went home tonight took his normal nighttime meds including his Plavix got ready for bed but continued to have chest pain decided to come back to the hospital. - Related Data Home Medications Medication Instructions Recorded Confirmed HYDROcodone/APAP 10-325MG [[place] 1 tab PO QID PRN 02/22/15 01/13/24 10-325] rOPINIRole HCL [Requip] 0.25 mg PO HS 09/29/17 01/13/24 Potassium Chloride ER [K-Dur 20] 20 meq PO BID 12/18/22 01/13/24 Fluticasone Nasal [place] [Flonase 1 spray EA NOSTRIL BID PRN 01/27/23 01/13/24 Nasal [place]] ALPRAZolam [Xanax] 2 mg PO TID PRN 03/15/23 01/13/24 Clopidogrel [Plavix] 75 mg PO DAILY 08/21/23 01/13/24 Cyclobenzaprine [Flexeril] 10 mg PO TID PRN 08/21/23 01/13/24 Diclofenac Sodium Gel [Voltaren 1% 1 applic TOPICAL QID PRN 08/21/23 01/13/24 Gel] Furosemide [Lasix] 80 mg PO DAILY 08/21/23 01/13/24 Isosorbide Mononitrate ER [Imdur] 30 mg PO DAILY 08/21/23 01/13/24 Omeprazole [PriLOSEC] 20 mg PO AC-BID 08/21/23 01/13/24 allopurinoL [Zyloprim] 100 mg PO DAILY 08/21/23 01/13/24 amLODIPine [Norvasc] 2.5 mg PO DAILY 08/21/23 01/13/24 lisinopriL [Zestril] 2.5 mg PO DAILY 08/21/23 01/13/24 Lidocaine 5% Patch [Lidoderm 5% 1 patch TRANSDERM DAILY 11/24/23 01/13/24 Patch] Albuterol Inhaler [Ventolin Hfa 1 - 2 puff INHALATION RT-Q6H PRN 12/22/23 01/13/24 Inhaler] Nitroglycerin Sl Tabs [Nitrostat] 0.4 mg SL Q5M PRN 01/13/24 01/13/24 Previous Rx's Medication Instructions Recorded Apixaban [Eliquis] 2.5 mg PO BID #60 tab 11/18/22 Ezetimibe [Zetia] 10 mg PO DAILY #90 tab 11/18/22 Fenofibrate [Lofibra] 160 mg PO DAILY #30 tab 12/01/22 Metoprolol Succinate (ER) [Toprol 50 mg PO DAILY #30 tab 02/01/23 XL] Aspirin 81 mg PO DAILY #100 tab 12/24/23 Dapagliflozin Propanediol [Farxiga] 5 mg PO DAILY #30 tab 12/24/23 Spironolactone [Aldactone] 50 mg PO DAILY #30 tab 12/24/23 Allergies Allergy/AdvReac Type Severity Reaction Status Date / Time latex Allergy Swelling Verified 01/17/24 23:06 atorvastatin [From Lipitor] AdvReac JOINT PAIN Verified 01/17/24 23:06 Review of Systems ROS Statement: Those systems with pertinent positive or pertinent negative responses have been documented in the HPI. ROS Other: All systems not noted in ROS Statement are negative. Past Medical History Past Medical History: Coronary Artery Disease (CAD), Chest Pain / Angina, COPD, GERD/Reflux, Hyperlipidemia, Hypertension, Myocardial Infarction ([place]), Osteoarthritis (OA), Sleep Apnea/CPAP/BIPAP Additional Past Medical History / Comment(s): hiatal hernia, chronic back pain, L foot drop, numbness/tingling bilateral legs, HUSAM without device, states stents x7 Last Myocardial Infarction Date:: 11/11/22 History of Any Multi-Drug Resistant Organisms: None Reported Past Surgical History: Back Surgery, Cholecystectomy, Coronary Bypass/CABG, Heart Catheterization With Stent, Orthopedic Surgery Additional Past Surgical History / Comment(s): Back surg x 2 with cage. L tennis elbow surg. HEART STENTS X7. Colonoscopy. Lasik eye surgery bilaterally. Emergency Cabg [facility] Past Anesthesia/Blood Transfusion Reactions: No Reported Reaction Additional Past Anesthesia/Blood Transfusion Reaction / Comment(s): Pt received blood during CABG without reaction. Date of Last Stent Placement:: Oct 2022 Past Psychological History: Anxiety, Depression, PTSD Smoking Status: Current every day smoker Past Alcohol Use History: None Reported Past Drug Use History: None Reported - Past Family History Father Family Medical History: Coronary Artery Disease (CAD), Deep Vein Thrombosis (DVT), GERD/Reflux, Hyperlipidemia Additional Family Medical History / Comment(s): Father of a [place] in his 80's Mother Family Medical History: Coronary Artery Disease (CAD) Additional Family Medical History / Comment(s): Mother of a [place] at the age of 76yrs. Sister(s) Family Medical History: Cancer Additional Family Medical History / Comment(s): Lung cancer. Course Vital Signs 01/17/24 01/17/24 01/18/24 22:59 23:51 00:06 Pulse Rate 77 72 Respiratory 22 22 18 Rate Blood Pressure 110/51 104/50 O2 Sat by Pulse 96 98 Oximetry 01/18/24 01/18/24 03:30 05:04 Pulse Rate 68 71 Respiratory 18 20 Rate Blood Pressure 92/54 98/52 O2 Sat by Pulse 95 95 Oximetry EKG Findings - EKG Comments: EKG Findings:: EKG interpreted by me EKG obtained due to patient's complaint of chest pain EKG obtained at 12:44 AM, rate is 71 rhythm is sinus with diffuse Q waves. No acute ST elevations no evidence of acute ischemia or infarction. Medical Decision Making - Medical Decision Making Was pt. sent in by a medical professional or institution (, PA, LANDS RESOURCE MANAGER, urgent care, hospital, or shelter...) When possible be specific @ -No Did you speak to anyone other than the patient for history (EMS, parent, family, police, friend...)? What history was obtained from this source @ -EMS Did you review nursing and triage notes (agree or disagree)? Why? @ -I reviewed and agree with nursing and triage notes Were old charts reviewed (outside hosp., previous admission, EMS record, old EKG, old radiological studies, urgent care reports/EKG's, shelter records)? Report findings @ -Previous admission notes and consult notes were reviewed Differential Diagnosis (chest pain, altered mental status, abdominal pain women, abdominal pain men, vaginal bleeding, weakness, fever, dyspnea, syncope, headache, dizziness, GI bleed, back pain, seizure, CVA, palpatations, mental health)? @ -Differential Chest Pain: Stable Angina, Unstable Angina, STEMI, NSTEMI Aortic Dissection, Pneumothorax, Musculoskeletal, Esophageal Spasm GERD, Cholecystitis, Pancreatitis, Zoster, this is not meant to be an all-inclusive list. EKG interpreted by me (3pts min.). @ -As above X-rays interpreted by me (1pt min.). @ -None done CT interpreted by me (1pt min.). @ -None done U/S interpreted by me (1pt. min.). @ -None done What testing was considered but not performed or refused? (CT, X-rays, U/S, labs)? Why? @ -None What meds were considered but not given or refused? Why? @ -IV narcotics were considered but held due to hypotension Did you discuss the management of the patient with other professionals (professionals i.e. , PA, LANDS RESOURCE MANAGER, lab, RT, psych nurse, medical social worker, black oxide coating equipment tender, teacher, electrical engineering drafting officer, case repairer)? Give summary @ -No Was smoking cessation discussed for >3mins.? @ -No Was critical care preformed (if so, how long)? @ -No Were there social determinants of health that impacted care today? How? (Homelessness, low income, unemployed, alcoholism, drug addiction, transportation, low edu. Level, literacy, decrease access to med. care, [facility], rehab)? @ -No Was there de-escalation of care discussed even if they declined (Discuss DNR or withdrawal of care, Hospice)? DNR status @ -No What co-morbidities impacted this encounter? (DM, HTN, Smoking, COPD, CAD, Cancer, CVA, ARF, Chemo, Hep., AIDS, mental health diagnosis, sleep apnea, morbid obesity)? @ -Hypertension, smoking, COPD, CAD, CKD Was patient admitted / discharged? Hospital course, mention meds given and route, prescriptions, significant lab abnormalities, going to OR and other pertinent info. @ -Admit The patient was seen and evaluated. Patient with persistent left-sided chest pain. Previous admission notes were reviewed. Patient was admitted for chest pain had a cardiac cath with concerning occlusions and was being evaluated for a possible repeat CABG. Patient was on heparin during hospitalization Plavix was held in anticipation of surgery. Patient took his Plavix tonight. Repeat labs, heparin were ordered. Patient is readmitted to Dr. Gee with cardiothoracic and cardiology on consult. Undiagnosed new problem with uncertain prognosis? @ -No Drug Therapy requiring intensive monitoring for toxicity (Heparin, Nitro, Insulin, Cardizem)? @ -Heparin Were any procedures done? @ -No Diagnosis/symptom? @ -Unstable angina Acute, or Chronic, or Acute on Chronic? @ -Chronic Uncomplicated (without systemic symptoms) or Complicated (systemic symptoms)? @ -Placated Side effects of treatment? @ -No Exacerbation, Progression, or Severe Exacerbation? @ -No Poses a threat to life or bodily function? How? (Chest pain, [place], [place], pneumonia, PE, COPD, DKA, ARF, appy, cholecystitis, CVA, Diverticulitis, Homicidal, Suicidal, threat to staff... and all critical care pts) @ -Yes, high risk of myocardial infarction, arrhythmia and sudden cardiac - Lab Data Result diagrams: 01/17/24 23:18 01/17/24 23:18 Lab Results 01/17/24 01/17/24 01/17/24 Range/Units 23:18 23:18 23:18 WBC 7.5 (3.8-10.6) k/uL RBC 3.28 L (4.30-5.90) m/uL Hgb 8.2 L (13.0-17.5) gm/dL Hct 26.9 L (39.0-53.0) % MCV 82.0 (80.0-100.0) fL MCH 24.9 L (25.0-35.0) pg MCHC 30.4 L (31.0-37.0) g/dL RDW 18.4 H (11.5-15.5) % Plt Count 139 L (150-450) k/uL MPV 9.1 Neutrophils % 76 % Lymphocytes % 13 % Monocytes % 7 % Eosinophils % 1 % Basophils % 1 % Neutrophils # 5.7 (1.3-7.7) k/uL Lymphocytes # 1.0 (1.0-4.8) k/uL Monocytes # 0.5 (0-1.0) k/uL Eosinophils # 0.0 (0-0.7) k/uL Basophils # 0.0 (0-0.2) k/uL Hypochromasia Marked Poikilocytosis Slight Anisocytosis Slight Sodium 132 L (137-145) mmol/L Potassium 4.7 (3.5-5.1) mmol/L Chloride 100 (98-107) mmol/L Carbon Dioxide 17 L (22-30) mmol/L Anion Gap 15 mmol/L BUN 45 H (9-20) mg/dL Creatinine 3.27 H (0.66-1.25) mg/dL Est GFR (CKD-EPI)AfAm 22 (>60 ml/min/1.73 sqM) Est GFR (CKD-EPI)NonAf 19 (>60 ml/min/1.73 sqM) Glucose 93 (74-99) mg/dL Calcium 9.1 (8.4-10.2) mg/dL Total Bilirubin 1.4 H (0.2-1.3) mg/dL AST 31 (17-59) U/L ALT 14 (4-49) U/L Alkaline Phosphatase 113 (38-126) U/L Troponin I 0.098 H* (0.000-0.034) ng/mL NT-Pro-B Natriuret Pep 6180 pg/mL Total Protein 7.5 (6.3-8.2) g/dL Albumin 4.2 (3.5-5.0) g/dL Disposition Clinical Impression: CAD (coronary artery disease) of bypass graft, Unstable angina pectoris, CHF exacerbation, Anemia, Tobacco abuse Disposition: ADMITTED IP TO THIS HOSP Condition: Serious Is patient prescribed a controlled substance at d/c from ED?: No
[2024-01-18 00:30] LABS: ALT 14 U/L (4-49); AST 31 U/L (17-59); African American GFR (CKD) 22 (>60 ml/min/1.73 sqM); Albumin 4.2 g/dL (3.5-5.0); Alkaline Phosphatase 113 U/L (38-126); Anion Gap 15 mmol/L; Blood Urea Nitrogen 45 mg/dL (9-20); Calcium 9.1 mg/dL (8.4-10.2); Carbon Dioxide 17 mmol/L (22-30); Chloride 100 mmol/L (98-107); Glucose 93 mg/dL (74-99); Non-African American GFR(CKD) 19 (>60 ml/min/1.73 sqM); Potassium 4.7 mmol/L (3.5-5.1); Sodium 132 mmol/L (137-145); Total Bilirubin 1.4 mg/dL (0.2-1.3); Total Protein 7.5 g/dL (6.3-8.2)
[2024-01-18] MEDS ORDERED: ALBUTEROL NEBULIZED 2.5 MG/3 ML INHALATION PRN (00:31)
[2024-01-18 00:39] LABS: NT-Pro-B-Type Natriuretic Pept 6180 pg/mL
[2024-01-18] MEDS: HEPARIN SOD,PORK IN 0.45% NACL 25,000 UNIT in 0.45% NACL 1 250ML.BAG IV SCH (01:11)
[2024-01-18] MEDS: MORPHINE SULFATE 4 MG/ML SYRINGE IVP STA (01:13)
[2024-01-18 01:49] LABS: INR 1.1 (<1.2); Partial Thromboplastin Time 27.1 sec (22.0-30.0); Prothrombin Time 11.6 sec (10.0-12.5)
[2024-01-18] MEDS: HYDROcodone/APAP 10-325MG 1 EACH TAB PO PRN (06:08)
[2024-01-18] MEDS: PANTOPRAZOLE 40 MG TABLET PO SCH (06:08)
[2024-01-18] MEDS: SODIUM CHLORIDE 0.9% 1,000 ML IV SCH (08:57)
[2024-01-18] MEDS: METOPROLOL SUCCINATE (ER) 50 MG TAB.ER.24H PO SCH (08:57)
[2024-01-18] MEDS: POTASSIUM CHLORIDE ER 20 MEQ TAB.ER PO SCH (08:57)
[2024-01-18] MEDS: LIDOCAINE 4% PATCH TOPICAL SCH (08:57)
[2024-01-18] MEDS ORDERED: SPIRONOLACTONE 25 MG TAB PO SCH (09:00)
[2024-01-18] MEDS ORDERED: amLODIPine 2.5 MG TAB PO SCH (09:00)
[2024-01-18] MEDS: HEPARIN SODIUM 1,000 UN/ML (10ML VL) IV PRN (09:17)
[2024-01-18] MEDS ORDERED: NITROGLYCERIN SL TABS 0.4 MG TAB SUBLINGUAL PRN (10:28)
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
--- NOTE | 2024-01-18 13:01 | HP ---
HISTORY AND PHYSICAL CHIEF COMPLAINT: Chest pain. HISTORY OF PRESENT ILLNESS: This is another admission for this 68-year-old white male. He left AMA yesterday. He is being evaluated for a CABG. He developed chest pain. He came back to the emergency room. REVIEW OF SYSTEMS: He has been short of breath. He has had no nausea or vomiting. He has had no neurologic changes. Past medical history, family history, and personal and social histories are all otherwise unremarkable or unchanged. PHYSICAL EXAMINATION: VITAL SIGNS: Blood pressure is 126/90 with a pulse of 78. CHEST: Demonstrated scattered rales. CARDIAC: Demonstrated S4. ABDOMEN: Soft. Nontender. EXTREMITIES: Normal. IMPRESSION: 1. Advanced coronary artery disease. 2. Acute [id number] myocardial infarction. 3. Chronic obstructive pulmonary disease. 4. Hyperlipidemia. PLAN: Place back in bedrest with intravenous fluids and reconsult Cardiology and Vascular Surgery. MMODL / IJN: [id number] /
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
[2024-01-18] MEDS: ALPRAZolam 1 MG TAB PO PRN (15:54)
[2024-01-19 08:56] LABS: INR 1.1 (<1.2); Prothrombin Time 12.2 sec (10.0-12.5)
[2024-01-19 09:00] LABS: Anisocytosis Slight; Basophils % (A) 1 %; Eosinophils # (A) 0.1 k/uL (0-0.7); Eosinophils % (A) 1 %; HCT 25.8 % (39.0-53.0); HGB 7.7 gm/dL (13.0-17.5); Hypochromasia Marked; Lymphocytes # (A) 1.5 k/uL (1.0-4.8); Lymphocytes % (A) 25 %; MCH 24.8 pg (25.0-35.0); MCHC 29.8 g/dL (31.0-37.0); MCV 83.4 fL (80.0-100.0); Mean Platelet Volume 10.3; Monocytes # (A) 0.4 k/uL (0-1.0); Monocytes % (A) 7 %; Neutrophils # (A) 3.7 k/uL (1.3-7.7); Neutrophils % (A) 63 %; Platelet Count 145 k/uL (150-450); RBC 3.09 m/uL (4.30-5.90); RDW 18.1 % (11.5-15.5); WBC 5.9 k/uL (3.8-10.6)
[2024-01-19] MEDS ORDERED: ISOSORBIDE MONONITRATE ER 30 MG TAB.ER.24H PO SCH (09:00)
[2024-01-19] MEDS ORDERED: DAPAGLIFLOZIN PROPANEDIOL 5 MG TABLET PO SCH (09:00)
[2024-01-19] MEDS ORDERED: FUROSEMIDE 80 MG TAB PO SCH (09:00)
[2024-01-19] MEDS: EZETIMIBE 10 MG TAB PO SCH (09:26)
[2024-01-19] MEDS: FENOFIBRATE 160 MG TAB PO SCH (09:26)
[2024-01-19] MEDS: allopurinoL 100 MG TAB PO SCH (09:26)
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
--- NOTE | 2024-01-19 10:29 | P.CONS ---
History of Present Illness - Reason for Consult Consult date: 01/19/24 anemia, rule out GI bleed for cardiac clearance Requesting physician: Serina Card - Chief Complaint Chest pain - History of Present Illness This is a pleasant 68-year-old old male who came in with chest pain and elevated troponins. He has a significant history of coronary artery disease status post 7 stents and coronary artery bypass graft surgery. Past medical history also includes chronic systolic heart failure with reduced EF 30 to 35%, hypertension, hyperlipidemia, chronic kidney disease, chronic anemia, chronic ongoing tobacco use, COPD, obstructive sleep apnea, chronic back pain, and difficulty with urination and constipation. Patient was recently hospitalized and left AGAINST MEDICAL ADVICE and returned 2 days ago with continued chest pa in. Noted to have elevated troponin. Patient is been on aspirin 81 mg daily, Plavix 75 mg daily and Eliquis 5 mg twice daily. Those medications are currently on hold and he is on a heparin drip. Cardiothoracic surgery was consulted for possible myocardial revascularization surgery. Patient is noted to be anemic and has not had previous endoscopic evaluation including EGD or colonoscopy. Cardiothoracic surgery is requesting anemia workup including endoscopic evaluation. Gastroenterology was consulted for the above. Patient currently denies any abdominal pain, no nausea or vomiting. States he has some bladder discomfort difficulty with urination and chronic back pain. States he came in for chest pain. He denies any blood in his stool or black stool. States he has been started on Eliquis 16 months ago. He denies any history of peptic ulcer disease does state that he gets constipation. Patient has noted to be anemic since October 2022. Today's labs WBC 5.9 hemoglobin 7.7 hematocrit 25 platelet count 145,000 Review of Systems REVIEW OF SYSTEMS: CARDIOPULMONARY: No chest reports chest pain. No shortness of breath. Gastrointestinal: No abdominal pain. No nausea or vomiting. No hematemesis, coffee-ground emesis. No rectal bleeding, or melena. GENITOURINARY: No dysuria or hematuria. Patient states he has urinary hesitancy and difficulty with urination. MUSCULOSKELETAL: Reports normal range of motion. Reports chronic back pain, lower. SKIN: No rashes. No jaundice. ENDOCRINE: No chills, fevers. No excessive weight gain or loss. No polydipsia or polyuria. PSYCHIATRIC: Unremarkable. NEUROLOGY: No change in mental status. Denies dizziness, headache. ENT: Vision unremarkable. CONSTITUTIONAL: No recent weight loss. No fever, chills, night sweats. Past Medical History Past Medical History: Coronary Artery Disease (CAD), Chest Pain / Angina, COPD, GERD/Reflux, Hyperlipidemia, Hypertension, Myocardial Infarction (CT), Osteoarthritis (OA), Sleep Apnea/CPAP/BIPAP Additional Past Medical History / Comment(s): hiatal hernia, chronic back pain, L foot drop, numbness/tingling bilateral legs, HUSAM without device, states stents x7 Last Myocardial Infarction Date:: 11/11/22 History of Any Multi-Drug Resistant Organisms: None Reported Past Surgical History: Back Surgery, Cholecystectomy, Coronary Bypass/CABG, Heart Catheterization With Stent, Orthopedic Surgery Additional Past Surgical History / Comment(s): Back surg x 2 with cage. L tennis elbow surg. HEART STENTS X7. Colonoscopy. Lasik eye surgery bilaterally. Emergency Cabg [facility] Past Anesthesia/Blood Transfusion Reactions: No Reported Reaction Additional Past Anesthesia/Blood Transfusion Reaction / Comm: Pt received blood during CABG without reaction. Date of Last Stent Placement:: Oct 2022 Past Psychological History: Anxiety, Depression, PTSD Smoking Status: Current every day smoker Past Alcohol Use History: None Reported Past Drug Use History: None Reported - Past Family History Father Family Medical History: Coronary Artery Disease (CAD), Deep Vein Thrombosis (DVT), GERD/Reflux, Hyperlipidemia Additional Family Medical History / Comment(s): Father of a CT in his 80's Mother Family Medical History: Coronary Artery Disease (CAD) Additional Family Medical History / Comment(s): Mother of a CT at the age of 76yrs. Sister(s) Family Medical History: Cancer Additional Family Medical History / Comment(s): Lung cancer. Medications and Allergies Home Medications Medication Instructions Recorded Confirmed Type HYDROcodone/APAP 10-325MG [[place] 1 tab PO QID PRN 02/22/15 01/18/24 History 10-325] rOPINIRole HCL [Requip] 0.25 mg PO HS 09/29/17 01/18/24 History Apixaban [Eliquis] 2.5 mg PO BID #60 tab 11/18/22 01/18/24 Rx Ezetimibe [Zetia] 10 mg PO DAILY #90 tab 11/18/22 01/18/24 Rx Fenofibrate [Lofibra] 160 mg PO DAILY #30 tab 12/01/22 01/18/24 Rx Potassium Chloride ER [K-Dur 20] 20 meq PO BID 12/18/22 01/18/24 History Fluticasone Nasal [place] [Flonase 1 spray EA NOSTRIL BID PRN 01/27/23 01/18/24 History Nasal [place]] Metoprolol Succinate (ER) [Toprol 50 mg PO DAILY #30 tab 02/01/23 01/18/24 Rx XL] ALPRAZolam [Xanax] 2 mg PO TID PRN 03/15/23 01/18/24 History Clopidogrel [Plavix] 75 mg PO DAILY 08/21/23 01/18/24 History Cyclobenzaprine [Flexeril] 10 mg PO TID PRN 08/21/23 01/18/24 History Diclofenac Sodium Gel [Voltaren 1% 1 applic TOPICAL QID PRN 08/21/23 01/18/24 History Gel] Furosemide [Lasix] 80 mg PO DAILY 08/21/23 01/18/24 History Isosorbide Mononitrate ER [Imdur] 30 mg PO DAILY 08/21/23 01/18/24 History Omeprazole [PriLOSEC] 20 mg PO AC-BID 08/21/23 01/18/24 History allopurinoL [Zyloprim] 100 mg PO DAILY 08/21/23 01/18/24 History amLODIPine [Norvasc] 2.5 mg PO DAILY 08/21/23 01/18/24 History lisinopriL [Zestril] 2.5 mg PO DAILY 08/21/23 01/18/24 History Lidocaine 5% Patch [Lidoderm 5% 1 patch TRANSDERM DAILY 11/24/23 01/18/24 History Patch] Albuterol Inhaler [Ventolin Hfa 1 - 2 puff INHALATION RT-Q6H PRN 12/22/23 01/18/24 History Inhaler] Aspirin 81 mg PO DAILY #100 tab 12/24/23 01/18/24 Rx Dapagliflozin Propanediol [Farxiga] 5 mg PO DAILY #30 tab 12/24/23 01/18/24 Rx Spironolactone [Aldactone] 50 mg PO DAILY #30 tab 12/24/23 01/18/24 Rx Nitroglycerin Sl Tabs [Nitrostat] 0.4 mg SL Q5M PRN 01/13/24 01/18/24 History Allergies Allergy/AdvReac Type Severity Reaction Status Date / Time latex Allergy Swelling Verified 01/17/24 23:06 atorvastatin [From Lipitor] AdvReac JOINT PAIN Verified 01/17/24 23:06 Physical Exam Vitals: Vital Signs Temp Pulse Resp BP Pulse Ox 01/19/24 05:12 97.4 F L 62 20 104/63 92 L 01/19/24 02:20 59 L 18 94/51 98 01/18/24 23:30 58 L 20 88/49 98 01/18/24 22:02 58 L 20 96/58 98 01/18/24 20:30 60 20 74/42 98 01/18/24 15:52 98.1 F 59 L 20 103/48 98 01/18/24 13:06 67 01/18/24 11:12 67 22 117/68 100 01/18/24 08:46 97.9 F 74 20 106/70 95 Intake and Output 01/18/24 01/18/24 01/19/24 14:59 22:59 06:59 Intake Total 545.333 155.068 16.923 Output Total 650 Balance 545.333 155.068 -633.077 Intake: Intake, IV Titration 80.333 155.068 16.923 Amount Heparin Sod,Pork in 0.45% 80.333 155.068 16.923 NaCl 25,000 unit In 0.45 % NaCl 1 250ml.bag @ 10. 7543 UNITS/KG/HR 10 mls/ hr IV .Q24H [facility] Rx#: [id number] Oral 465 0 Output: Urine 650 Other: Voiding Method Toilet Toilet Toilet # Voids 1 General appearance: The patient is alert, oriented, appears in no acute distress. HET: Head is normocephalic and atraumatic. Conjunctiva pink. Sclera anicteric. Neck: Supple without lymphadenopathy. Trachea midline. Heart: Regular. Lungs: Equal expansion, normal respiratory effort. Abdomen: Soft, nontender, nondistended with bowel sounds. No guarding or rigidity. Skin: No rashes. No jaundice. Extremities: Normal skin color and turgor. No pedal edema. Neurological: No focal deficits. Alert and oriented x3. Results CBC & Chem 7: 01/19/24 07:34 01/17/24 23:18 Labs: Abnormal Lab Results - Last 24 Hours (Table) 01/18/24 01/18/24 01/18/24 Range/Units 07:42 14:56 22:17 APTT 37.0 H 39.9 H 33.1 H (22.0-30.0) sec Assessment and Plan (1) Anemia Current Visit: Yes Status: Acute Code(s): D64.9 - ANEMIA, UNSPECIFIED SNOMED Code(s): 389482418 (2) CAD (coronary artery disease) of bypass graft Current Visit: Yes Status: Acute Code(s): I25.810 - ATHEROSCLEROSIS OF CABG W/O ANGINA PECTORIS SNOMED Code(s): 961642819 (3) Tobacco abuse Current Visit: Yes Status: Acute Code(s): Z72.0 - TOBACCO USE SNOMED Code(s): 215603790 (4) [place] (acute kidney injury) Current Visit: No Status: Acute Code(s): N17.9 - ACUTE KIDNEY FAILURE, UNSPECIFIED SNOMED Code(s): 37858578 (5) Elevated troponin Current Visit: No Status: Acute Code(s): R77.8 - OTHER SPECIFIED ABNORM ALITIES OF PLASMA PROTEINS SNOMED Code(s): 227959931 Plan: 1. Continue symptomatic and supportive care 2. Continue recommendations from cardiology 3. Continue workup from cardiothoracic surgery 4. Continue with recommendations from nephrology 5. Obviously from a GI standpoint would recommend holding anticoagulation however due to patient's cardiac risk we will leave that to the discretion of cardiology 6. Avoid NSAIDs 7. Protonix 40 mg daily for GI prophylaxis 8. Daily CBC, transfuse for hemoglobin less than 7 9. Anemia profile ordered 10. Further recommendations forthcoming based on iron studies. Consider possible endoscopic evaluation next week. Thank you for this consultation, we will sign off at this time as there will be no further GI coverage through the weekend or next week in the hospital. Dr. Stoney Flood I agree with the dictator's note, documented as a scribe by Tonya Paz.
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
[2024-01-19 11:56] LABS: Appearance,Urine Clear (Clear); Bilirubin,Urine Negative (Negative); Blood,Urine Negative (Negative); Color,Urine Light Yellow; Glucose,Urine (UA) Negative (Negative); Ketones,Urine Negative (Negative); Leukocyte Esterase,Urine Negative (Negative); Nitrite,Urine Negative (Negative); Protein,Urine Negative (Negative); Specific Gravity,Urine 1.014 (1.001-1.035); Urobilinogen,Urine <2.0 mg/dL (<2.0)
[2024-01-19] MEDS: MIDODRINE 5 MG TAB PO SCH (12:00)
[2024-01-19 12:27] LABS: % Iron Saturation 4.37 (15.00-50.00)
--- NOTE | 2024-01-19 12:33 | US ---
EXAMINATION TYPE: US kidneys/renal and bladder DATE OF EXAM: 01/19/2024 COMPARISON: 09/14/2023. CLINICAL INDICATION: Male, 68 years old with history of shayna; Abnormal labs. EXAM MEASUREMENTS: Right Kidney: 10.8 x 4.3 x 5.1 cm Left Kidney: 11.4 x 4.7 x 6.2 cm Right Kidney: No hydronephrosis or masses seen Left Kidney: Lateral isoechoic lesion seen, possible masslike area measuring = 3.4 x 3.4 x 3.2 cm Bladder: distended, anechoic Bilateral Jets not seen Incidental finding: Free fluid seen adjacent to liver, spleen and bladder. Right pleural effusion IMPRESSION: Isoechoic masslike area in the lateral left kidney. Given this is new from prior a lobulated contour/ technique is favored. Further evaluation MRI renal mass protocol would help clarify.
[2024-01-19 12:52] LABS: Ferritin 26.4 ng/mL (22.0-322.0)
[2024-01-19 17:16] LABS: African American GFR (CKD) 24 (>60 ml/min/1.73 sqM); Anion Gap 16 mmol/L; Blood Urea Nitrogen 51 mg/dL (9-20); Calcium 9.3 mg/dL (8.4-10.2); Carbon Dioxide 18 mmol/L (22-30); Chloride 100 mmol/L (98-107); Glucose 113 mg/dL (74-99); Magnesium 2.5 mg/dL (1.6-2.3); Non-African American GFR(CKD) 21 (>60 ml/min/1.73 sqM); Potassium 4.8 mmol/L (3.5-5.1); Sodium 134 mmol/L (137-145)
[2024-01-20] MEDS ORDERED: FERROUS SULFATE 325 MG TAB PO SCH (09:45)
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
[2024-01-20 10:21] LABS: African American GFR (CKD) 26 (>60 ml/min/1.73 sqM); Anion Gap 12 mmol/L; Blood Urea Nitrogen 51 mg/dL (9-20); Calcium 9.2 mg/dL (8.4-10.2); Carbon Dioxide 20 mmol/L (22-30); Chloride 101 mmol/L (98-107); Glucose 103 mg/dL (74-99); Non-African American GFR(CKD) 22 (>60 ml/min/1.73 sqM); Potassium 5.2 mmol/L (3.5-5.1); Sodium 133 mmol/L (137-145)
--- NOTE | 2024-01-20 10:23 | P.PN ---
Subjective Patient is seen in follow-up for acute kidney injury on chronic kidney disease. Renal function little better. Has been voiding. Blood pressure stable. On midodrine. Vital signs are stable. General: No acute distress. HEENT: Head exam is unremarkable. On nasal cannula. LUNGS: No audible rhonchi or wheezes. HEART: Rate and Rhythm are regular. ABDOMEN: Nontender. EXTREMITITES: 1+ edema. Objective - Vital Signs Vital signs: Vital Signs Temp 97.5 F L 01/20/24 08:27 Pulse 64 01/20/24 08:27 Resp 18 01/20/24 08:27 BP 116/73 01/20/24 08:27 Pulse Ox 96 01/20/24 08:27 FiO2 Intake & Output 01/19/24 01/20/24 01/20/24 18:59 06:59 18:59 Intake Total 1193.077 540 Output Total 580 200 200 Balance 613.077 340 -200 Intake: Intake, IV Titration 233.077 Amount Heparin Sod,Pork in 0.45% 233.077 NaCl 25,000 unit In 0.45 % NaCl 1 250ml.bag @ 10. 7543 UNITS/KG/HR 10 mls/ hr IV .Q24H [facility] Rx#: [id number] Oral 960 540 Output: Urine 450 200 200 Post Void Residual 130 Other: Voiding Method Urinal Urinal Urinal - Labs CBC & Chem 7: 01/19/24 07:34 01/19/24 15:03 Labs: Abnormal Lab Results - Last 24 Hours (Table) 01/19/24 01/19/24 01/19/24 Range/Units 07:34 07:34 15:03 APTT 51.7 H (22.0-30.0) sec Sodium (137-145) mmol/L Carbon Dioxide (22-30) mmol/L BUN (9-20) mg/dL Creatinine (0.66-1.25) mg/dL Glucose (74-99) mg/dL Magnesium (1.6-2.3) mg/dL Iron 26 L (65-175) UG/DL TIBC 595 H (228-460) UG/DL % Saturation 4.37 L (15.00-50.00) Transferrin 425.0 H (204.0-354.0) mg/dL Folate 35.90 H (4.40-31.00) ng/mL 01/19/24 Range/Units 15:03 APTT (22.0-30.0) sec Sodium 134 L (137-145) mmol/L Carbon Dioxide 18 L (22-30) mmol/L BUN 51 H (9-20) mg/dL Creatinine 2.96 H (0.66-1.25) mg/dL Glucose 113 H (74-99) mg/dL Magnesium 2.5 H (1.6-2.3) mg/dL Iron (65-175) UG/DL TIBC (228-460) UG/DL % Saturation (15.00-50.00) Transferrin (204.0-354.0) mg/dL Folate (4.40-31.00) ng/mL Assessment and Plan Plan: Assessment: 1. Acute kidney injury secondary to ATN secondary to hypotension and contrast associated acute kidney injury. Creatinine 3.27 this admission and 2.96 yesterday. No hydronephrosis noted on kidney ultrasound. UA benign. 2. Chronic kidney disease stage IIIb with baseline creatinine 1.6-1.7. 3. Left kidney mass noted on ultrasound. 4. Acute on chronic systolic CHF with ejection fraction of 30 to 35%. 5. Coronary disease with history of CABG and PCI. Cardiology and cardiothoracic surgery following. 6. Anemia of chronic kidney disease. Scheduled for EGD next week. Iron deficiency noted. 7. Volume overload. 8. Metabolic acidosis secondary to acute kidney injury. Plan: Check bladder scan to rule out urinary retention. Add IV iron. Consult urology due to kidney mass. Lasix 40 mg IV once today. Avoid nephrotoxins. Continue to monitor renal function and urine output. Maintain midodrine. Add oral bicarb.
[2024-01-20] MEDS: SODIUM BICARBONATE TAB 650 MG TAB PO SCH (11:15)
[2024-01-20] MEDS: FUROSEMIDE 10 MG/ML 4 ML VIAL IV STA (11:15)
[2024-01-20] MEDS: SODIUM FERRIC GLUCONAT-SUCROSE 125 MG in SODIUM CHLORIDE 0.9% 100 ML IVPB ONE (11:15)
[2024-01-20] MEDS: FERROUS SULFATE 325 MG TAB PO SCH (11:15)
[2024-01-20] MEDS: SODIUM FERRIC GLUCONAT-SUCROSE 125 MG in SODIUM CHLORIDE 0.9% 100 ML IVPB SCH (11:16)
[2024-01-20 17:56] LABS: Anisocytosis Slight; Basophils % (A) 1 %; Eosinophils % (A) 1 %; HGB 7.9 gm/dL (13.0-17.5); Hypochromasia Marked; Lymphocytes # (A) 1.3 k/uL (1.0-4.8); Lymphocytes % (A) 23 %; MCH 25.1 pg (25.0-35.0); MCHC 29.2 g/dL (31.0-37.0); MCV 86.2 fL (80.0-100.0); Mean Platelet Volume 12.9; Monocytes # (A) 0.5 k/uL (0-1.0); Monocytes % (A) 9 %; Neutrophils # (A) 3.6 k/uL (1.3-7.7); Neutrophils % (A) 64 %; Platelet Count 150 k/uL (150-450); RBC 3.13 m/uL (4.30-5.90); RDW 17.8 % (11.5-15.5); WBC 5.5 k/uL (3.8-10.6)
[2024-01-20 19:49] LABS: Large Platelets Present
--- NOTE | 2024-01-20 20:28 | PN ---
PROGRESS NOTE DATE OF SERVICE: 01/19/2024 CHIEF COMPLAINT: Coronary artery disease, NSTEMI, and heart failure. HISTORY OF PRESENT ILLNESS: This gentleman is stable. He does have renal failure and this is being followed by Nephrology. Some of those could be related to his cardiac cath. He is also anemic and that has been investigated. The stool for occult blood has been ordered. PHYSICAL EXAMINATION: VITAL SIGNS: Normal. CHEST: Clear. CARDIAC: Normal. ABDOMEN: Soft. Nontender. IMPRESSION: 1. Advanced coronary artery disease. 2. Recent hpi-NM-[id number] myocardial infarction. 3. Congestive heart failure. 4. Hyperlipidemia. 5. Chronic kidney disease. 6. Anemia. PLAN: Continue workup. Looking forward to see if he will be a candidate for CABG. REYNALDO / CALLI: [phone] /
[2024-01-21 10:59] LABS: African American GFR (CKD) 27 (>60 ml/min/1.73 sqM); Anion Gap 17 mmol/L; Blood Urea Nitrogen 54 mg/dL (9-20); Calcium 9.2 mg/dL (8.4-10.2); Carbon Dioxide 14 mmol/L (22-30); Chloride 102 mmol/L (98-107); Glucose 96 mg/dL (74-99); Magnesium 2.6 mg/dL (1.6-2.3); Non-African American GFR(CKD) 23 (>60 ml/min/1.73 sqM); Potassium 5.3 mmol/L (3.5-5.1); Sodium 133 mmol/L (137-145)
--- NOTE | 2024-01-21 11:09 | P.PN ---
Subjective Patient is seen in follow-up for acute kidney injury on chronic kidney disease. Renal function fairly stable. Has been voiding. Blood pressure stable. On midodrine. Denies chest pain or shortness of breath. Vital signs are stable. General: No acute distress. HEENT: Head exam is unremarkable. On nasal cannula. LUNGS: No audible rhonchi or wheezes. HEART: Rate and Rhythm are regular. ABDOMEN: Nontender. EXTREMITITES: 1+ edema. Objective - Vital Signs Vital signs: Vital Signs Temp 97.8 F 01/21/24 08:09 Pulse 66 01/21/24 08:09 Resp 18 01/21/24 08:09 BP 113/64 01/21/24 08:09 Pulse Ox 98 01/21/24 08:09 FiO2 Intake & Output 01/20/24 01/21/24 01/21/24 18:59 06:59 18:59 Intake Total 480 787.809 Output Total 350 Balance 130 787.809 Intake: IV 20 Invasive Line 2 20 Intake, IV Titration 247.809 Amount Heparin Sod,Pork in 0.45% 247.809 NaCl 25,000 unit In 0.45 % NaCl 1 250ml.bag @ 10. 7543 UNITS/KG/HR 10 mls/ hr IV .Q24H [facility] Rx#: [id number] Oral 460 540 Output: Urine 350 Other: Voiding Method Urinal Urinal Toilet Bedside Commode Urinal # Voids 2 - Labs CBC & Chem 7: 01/20/24 07:34 01/21/24 10:13 Labs: Abnormal Lab Results - Last 24 Hours (Table) 01/20/24 01/21/24 Range/Units 07:34 10:13 RBC 3.13 L (4.30-5.90) m/uL Hgb 7.9 L (13.0-17.5) gm/dL Hct 27.0 L (39.0-53.0) % MCHC 29.2 L (31.0-37.0) g/dL RDW 17.8 H (11.5-15.5) % Sodium 133 L (137-145) mmol/L Potassium 5.3 H (3.5-5.1) mmol/L Carbon Dioxide 14 L (22-30) mmol/L BUN 54 H (9-20) mg/dL Creatinine 2.74 H (0.66-1.25) mg/dL Magnesium 2.6 H (1.6-2.3) mg/dL Microbiology - Last 24 Hours (Table) 01/19/24 15:10 Blood Culture - Preliminary Blood Assessment and Plan Plan: Assessment: 1. Acute kidney injury secondary to ATN secondary to hypotension and contrast associated acute kidney injury. Creatinine 3.27 this admission and is 2.74 today. No hydronephrosis noted on kidney ultrasound. UA benign. 2. Chronic kidney disease stage IIIb with baseline creatinine 1.6-1.7. 3. Left kidney mass noted on ultrasound. Urology consulted. 4. Acute on chronic systolic CHF with ejection fraction of 30 to 35%. 5. Coronary disease with history of CABG and PCI. Cardiology and cardiothoracic surgery following. 6. Anemia of chronic kidney disease. Scheduled for EGD next week. Iron deficiency noted. 7. Volume overload. 8. Metabolic acidosis secondary to acute kidney injury. Plan: Maintain IV iron. Repeat IV Lasix. Avoid nephrotoxins. Continue to monitor renal function and urine output. Maintain midodrine. Will give bicarb IV push. Also increase frequency of oral bicarb.
[2024-01-21] MEDS: SODIUM BICARB 8.4% 50 ML SYR (1 MEQ/ML) IV STA (11:47)
[2024-01-21] MEDS: FUROSEMIDE 10 MG/ML 4 ML VIAL IV STA (11:47)
[2024-01-21] MEDS: SODIUM ZIRCONIUM CYCLOSILICATE 10 GM PACKET PO ONE (11:48)
--- NOTE | 2024-01-21 12:30 | P.GSCN ---
History of Present Illness Consult date: 01/21/24 History of present illness: 68-year-old male in the hospital with chest pain. He has cardiac issues. He had an ultrasound of the abdomen identifying a possible mass in the left kidney. For this reason I was asked to see the patient. The chart is been reviewed. Old x-rays have been reviewed. The patient has been interviewed. The patient does not have any history of urinary tract problems. There is no history of hematuria stones or kidney disease. The patient did have a computed tomography scan of the abdomen with contrast 09/24/2023 that showed perfectly normal kidneys. The patient's urinalysis is clear. Review of Systems All systems: negative - Constitutional Denies fever, Denies weight loss - EENT Eyes: denies blurred vision Ears, nose, mouth and throat: Denies dysphagia - Cardiovascular Denies chest pain, Denies shortness of breath - Respiratory Denies cough, Denies 7 - Gastrointestinal Reports as per HPI - Genitourinary Denies dysuria, Denies hematuria - Integumentary Denies rash, Denies unusual bruising - Neurological Denies headaches, Denies syncope - Hematologic/Lymphatic Denies easy bleeding, Denies easy bruising Past Medical History Past Medical History: Coronary Artery Disease (CAD), Chest Pain / Angina, COPD, GERD/Reflux, Hyperlipidemia, Hypertension, Myocardial Infarction (RI), Osteoarthritis (OA), Sleep Apnea/CPAP/BIPAP Additional Past Medical History / Comment(s): hiatal hernia, chronic back pain, L foot drop, numbness/tingling bilateral legs, HUSAM without device, states stents x7 Last Myocardial Infarction Date:: 11/11/22 History of Any Multi-Drug Resistant Organisms: None Reported Past Surgical History: Back Surgery, Cholecystectomy, Coronary Bypass/CABG, Heart Catheterization With Stent, Orthopedic Surgery Additional Past Surgical History / Comment(s): Back surg x 2 with cage. L tennis elbow surg. HEART STENTS X7. Colonoscopy. Lasik eye surgery bilaterally. Emergency Cabg [facility] Past Anesthesia/Blood Transfusion Reactions: No Reported Reaction Additional Past Anesthesia/Blood Transfusion Reaction / Comm: Pt received blood during CABG without reaction. Date of Last Stent Placement:: Oct 2022 Past Psychological History: Anxiety, Depression, PTSD Smoking Status: Current every day smoker Past Alcohol Use History: None Reported Past Drug Use History: None Reported - Past Family History Father Family Medical History: Coronary Artery Disease (CAD), Deep Vein Thrombosis (DVT), GERD/Reflux, Hyperlipidemia Additional Family Medical History / Comment(s): Father of a RI in his 80's Mother Family Medical History: Coronary Artery Disease (CAD) Additional Family Medical History / Comment(s): Mother of a RI at the age of 76yrs. Sister(s) Family Medical History: Cancer Additional Family Medical History / Comment(s): Lung cancer. Medications and Allergies Home Medications Medication Instructions Recorded Confirmed Type HYDROcodone/APAP 10-325MG [Poyntelle 1 tab PO QID PRN 02/22/15 01/18/24 History 10-325] rOPINIRole HCL [Requip] 0.25 mg PO HS 09/29/17 01/18/24 History Apixaban [Eliquis] 2.5 mg PO BID #60 tab 11/18/22 01/18/24 Rx Ezetimibe [Zetia] 10 mg PO DAILY #90 tab 11/18/22 01/18/24 Rx Fenofibrate [Lofibra] 160 mg PO DAILY #30 tab 12/01/22 01/18/24 Rx Potassium Chloride ER [K-Dur 20] 20 meq PO BID 12/18/22 01/18/24 History Fluticasone Nasal [place] [Flonase 1 spray EA NOSTRIL BID PRN 01/27/23 01/18/24 History Nasal [place]] Metoprolol Succinate (ER) [Toprol 50 mg PO DAILY #30 tab 02/01/23 01/18/24 Rx XL] ALPRAZolam [Xanax] 2 mg PO TID PRN 03/15/23 01/18/24 History Clopidogrel [Plavix] 75 mg PO DAILY 08/21/23 01/18/24 History Cyclobenzaprine [Flexeril] 10 mg PO TID PRN 08/21/23 01/18/24 History Diclofenac Sodium Gel [Voltaren 1% 1 applic TOPICAL QID PRN 08/21/23 01/18/24 History Gel] Furosemide [Lasix] 80 mg PO DAILY 08/21/23 01/18/24 History Isosorbide Mononitrate ER [Imdur] 30 mg PO DAILY 08/21/23 01/18/24 History Omeprazole [PriLOSEC] 20 mg PO AC-BID 10/23/23 03/21/24 History allopurinoL [Zyloprim] 100 mg PO DAILY 08/21/23 01/18/24 History amLODIPine [Norvasc] 2.5 mg PO DAILY 08/21/23 01/18/24 History lisinopriL [Zestril] 2.5 mg PO DAILY 08/21/23 01/18/24 History Lidocaine 5% Patch [Lidoderm 5% 1 patch TRANSDERM DAILY 11/24/23 01/18/24 History Patch] Albuterol Inhaler [Ventolin Hfa 1 - 2 puff INHALATION RT-Q6H PRN 12/22/23 01/18/24 History Inhaler] Aspirin 81 mg PO DAILY #100 tab 12/24/23 01/18/24 Rx Dapagliflozin Propanediol [Farxiga] 5 mg PO DAILY #30 tab 12/24/23 01/18/24 Rx Spironolactone [Aldactone] 50 mg PO DAILY #30 tab 12/24/23 01/18/24 Rx Nitroglycerin Sl Tabs [Nitrostat] 0.4 mg SL Q5M PRN 01/13/24 01/18/24 History Allergies Allergy/AdvReac Type Severity Reaction Status Date / Time latex Allergy Swelling Verified 01/17/24 23:06 atorvastatin [From Lipitor] AdvReac JOINT PAIN Verified 01/17/24 23:06 Surgical - Exam Vital Signs Pulse Resp BP Pulse Ox 77 22 110/51 96 01/17/24 22:59 01/17/24 22:59 01/17/24 22:59 01/17/24 22:59 - General well developed, well nourished, no distress, obese - Eyes normal ocular movement, no icteric - ENT no hearing loss, no congestion - Neck no masses, trachea midline - Respiratory normal respiratory effort, clear to auscultation - Abdomen Abdomen: soft, non tender, no guarding, no rigid, no rebound - Integumentary no rash, no abnormal pigmentation - Neurologic no disoriented, no combative - Psychiatric oriented to time, oriented to person, oriented to place, speech is normal, memory intact Results - Labs 01/20/24 07:34 01/21/24 10:13 Abnormal Lab Results - Last 24 Hours (Table) 01/20/24 01/21/2424 Range/Units 07:34 10:13 10:13 RBC 3.13 L (4.30-5.90) m/uL Hgb 7.9 L (13.0-17.5) gm/dL Hct 27.0 L (39.0-53.0) % MCHC 29.2 L (31.0-37.0) g/dL RDW 17.8 H (11.5-15.5) % APTT 117.2 H* (22.0-30.0) sec Sodium 133 L (137-145) mmol/L Potassium 5.3 H (3.5-5.1) mmol/L Carbon Dioxide 14 L (22-30) mmol/L BUN 54 H (9-20) mg/dL Creatinine 2.74 H (0.66-1.25) mg/dL Magnesium 2.6 H (1.6-2.3) mg/dL Microbiology - Last 24 Hours (Table) 01/19/24 15:10 Blood Culture - Preliminary Blood Diabetes panel 01/21/24 Range/Units 10:13 Sodium 133 L (137-145) mmol/L Potassium 5.3 H (3.5-5.1) mmol/L Chloride 102 (98-107) mmol/L Carbon Dioxide 14 L (22-30) mmol/L BUN 54 H (9-20) mg/dL Creatinine 2.74 H (0.66-1.25) mg/dL Glucose 96 (74-99) mg/dL Calcium 9.2 (8.4-10.2) mg/dL Calcium panel 01/21/24 Range/Units 10:13 Calcium 9.2 (8.4-10.2) mg/dL Pituitary panel 01/21/24 Range/Units 10:13 Sodium 133 L (137-145) mmol/L Potassium 5.3 H (3.5-5.1) mmol/L Chloride 102 (98-107) mmol/L Carbon Dioxide 14 L (22-30) mmol/L BUN 54 H (9-20) mg/dL Creatinine 2.74 H (0.66-1.25) mg/dL Glucose 96 (74-99) mg/dL Calcium 9.2 (8.4-10.2) mg/dL Adrenal panel 01/21/24 Range/Units 10:13 Sodium 133 L (137-145) mmol/L Potassium 5.3 H (3.5-5.1) mmol/L Chloride 102 (98-107) mmol/L Carbon Dioxide 14 L (22-30) mmol/L BUN 54 H (9-20) mg/dL Creatinine 2.74 H (0.66-1.25) mg/dL Glucose 96 (74-99) mg/dL Calcium 9.2 (8.4-10.2) mg/dL - Imaging CT scan - abdomen: report reviewed, image reviewed CT scan - pelvis: report reviewed, image reviewed US - kidney/bladder: report reviewed, image reviewed Assessment and Plan Assessment: Impression: Cardiac issues being addressed by the medical service. Abnormal ultrasound by report. Normal computed tomography scan by report Recommendations: The CAT scan done in August 2023 was with contrast and showed a completely normal kidney. I reviewed the ultrasound myself and the abnormality seen is questionable. I do not think an MRI is necessary as the computed tomography scan was completely normal in 2022 eliminating malignant lesion growing in that period of time. On top of that the ultrasound truly is marginal as far as whether there is any significant abnormalities. That and with a clear urine I do not think further urologic intervention or x-ray as ne cessary.
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
[2024-01-21] MEDS: SODIUM BICARBONATE TAB 650 MG TAB PO SCH (16:47)
[2024-01-21 19:54] LABS: Glucose,Whole Blood 115 mg/dL (70-110)
--- NOTE | 2024-01-21 21:01 | PN ---
PROGRESS NOTE DATE OF SERVICE: 01/20/2024 CHIEF COMPLAINT: Coronary artery disease, renal failure, and anemia. HISTORY OF PRESENT ILLNESS: This gentleman is being worked up and his renal failure is being managed. He has anemia and this is also being looked into. The concern is whether or not he will be able to be a candidate for a CABG, for which he is already at an extremely high risk. PHYSICAL EXAMINATION: VITAL SIGNS: Normal. GENERAL: He seems a little bit lethargic. He is arousable and oriented. CHEST: Demonstrates rales at the bases. CARDIAC: Unchanged. ABDOMEN: Protuberant, soft. IMPRESSION: 1. Non-ST segment elevation myocardial infarction. 2. Severe coronary artery disease. 3. Chronic kidney disease. 4. Anemia. PLAN: 1. Stool occult blood. 2. Continue to follow his renal function with Nephrology. MMODL / IJN: [id number] /
[2024-01-21] MEDS: DEXTROSE 5%-0.45% NACL 1,000 ML IV SCH (21:04)
--- NOTE | 2024-01-21 21:25 | PN ---
PROGRESS NOTE DATE OF SERVICE: 01/21/2024 CHIEF COMPLAINT: CAD, renal failure, and anemia. HISTORY OF PRESENT ILLNESS: This gentleman seems more lethargic. He remains in renal failure. Anemia is also unexplained illnesses related to his renal failure. PHYSICAL EXAMINATION: VITAL SIGNS: Normal. CHEST: Quite clear. CARDIAC: Normal. ABDOMEN: Soft, nontender. IMPRESSION: 1. Acute non-ST segment elevation myocardial infarction. 2. Advanced coronary artery disease. 3. Chronic kidney disease. 4. Anemia. PLAN: Continued evaluation of his general medical state, pending the possible repeat CABG. This would seem very unlikely at this point. MMODL / IJN: [id number] /
[2024-01-22 09:59] LABS: Anisocytosis Slight; HCT 25.2 % (39.0-53.0); HGB 7.6 gm/dL (13.0-17.5); Hypochromasia Marked; MCH 24.8 pg (25.0-35.0); MCV 82.8 fL (80.0-100.0); Platelet Count 171 k/uL (150-450); Poikilocytosis Slight; RBC 3.04 m/uL (4.30-5.90); RDW 18.6 % (11.5-15.5); WBC 6.6 k/uL (3.8-10.6)
[2024-01-22 10:08] LABS: African American GFR (CKD) 28 (>60 ml/min/1.73 sqM); Anion Gap 13 mmol/L; Blood Urea Nitrogen 50 mg/dL (9-20); Calcium 9.4 mg/dL (8.4-10.2); Carbon Dioxide 22 mmol/L (22-30); Chloride 100 mmol/L (98-107); Glucose 117 mg/dL (74-99); Magnesium 2.5 mg/dL (1.6-2.3); Non-African American GFR(CKD) 24 (>60 ml/min/1.73 sqM); Potassium 4.2 mmol/L (3.5-5.1); Sodium 135 mmol/L (137-145)
--- NOTE | 2024-01-22 11:56 | P.PN ---
Subjective Patient is seen in follow-up for acute kidney injury on chronic kidney disease. Renal function fairly stable. Has been voiding. Blood pressure stable. On midodrine. Currently has a sitter at bedside. Vital signs are stable. General: No acute distress. HEENT: Head exam is unremarkable. On nasal cannula. LUNGS: No audible rhonchi or wheezes. HEART: Rate and Rhythm are regular. ABDOMEN: Nontender. EXTREMITITES: 1+ edema. Objective - Vital Signs Vital signs: Vital Signs Temp 97.6 F 01/22/24 08:00 Pulse 67 01/22/24 08:00 Resp 20 01/22/24 08:00 BP 106/58 01/22/24 08:00 Pulse Ox 95 01/22/24 08:00 FiO2 Intake & Output 01/21/24 01/22/24 01/22/24 18:59 06:59 18:59 Intake Total 1287.312 340 360 Output Total 600 600 Balance 687.312 -260 360 Intake: Intake, IV Titration 207.312 100 Amount Dextrose 5%-0.45% NaCl 1, 100 000 ml @ 100 mls/hr IV . Q10H [facility] Rx#:[id number] Heparin Sod,Pork in 0.45% 207.312 NaCl 25,000 unit In 0.45 % NaCl 1 250ml.bag @ 10. 7543 UNITS/KG/HR 10 mls/ hr IV .Q24H [facility] Rx#: [id number] Oral 1080 240 360 Output: Urine 600 600 Other: Voiding Method Toilet Toilet Toilet Bedside Commode Bedside Commode Bedside Commode Urinal Urinal Urinal # Voids 2 - Labs CBC & Chem 7: 01/22/24 09:14 01/22/24 09:14 Labs: Abnormal Lab Results - Last 24 Hours (Table) 01/21/24 01/21/24 01/22/24 Range/Units 19:04 19:52 09:14 RBC (4.30-5.90) m/uL Hgb (13.0-17.5) gm/dL Hct (39.0-53.0) % MCH (25.0-35.0) pg MCHC (31.0-37.0) g/dL RDW (11.5-15.5) % APTT 54.9 H (22.0-30.0) sec Sodium 135 L (137-145) mmol/L BUN 50 H (9-20) mg/dL Creatinine 2.61 H (0.66-1.25) mg/dL Glucose 117 H (74-99) mg/dL POC Glucose (mg/dL) 115 H (70-110) mg/dL Magnesium 2.5 H (1.6-2.3) mg/dL 01/22/24 01/22/24 Range/Units 09:14 09:14 RBC 3.04 L (4.30-5.90) m/uL Hgb 7.6 L (13.0-17.5) gm/dL Hct 25.2 L (39.0-53.0) % MCH 24.8 L (25.0-35.0) pg MCHC 30.0 L (31.0-37.0) g/dL RDW 18.6 H (11.5-15.5) % APTT 59.5 H (22.0-30.0) sec Sodium (137-145) mmol/L BUN (9-20) mg/dL Creatinine (0.66-1.25) mg/dL Glucose (74-99) mg/dL POC Glucose (mg/dL) (70-110) mg/dL Magnesium (1.6-2.3) mg/dL Microbiology - Last 24 Hours (Table) 01/19/24 15:10 Blood Culture - Preliminary Blood Assessment and Plan Plan: Assessment: 1. Acute kidney injury secondary to ATN secondary to hypotension and contrast associated acute kidney injury. Creatinine 3.27 this admission and is stable at 2.61 today. No hydronephrosis noted on kidney ultrasound. UA benign. 2. Chronic kidney disease stage IIIb with baseline creatinine 1.6-1.7. 3. Left kidney mass noted on ultrasound. Seen by urology. Prior CAT scan normal. No further interventions planned. 4. Acute on chronic systolic CHF with ejection fraction of 30 to 35%. 5. Coronary disease with history of CABG and PCI. Cardiology and cardiothoracic surgery following. 6. Anemia of chronic kidney disease. Scheduled for EGD this week. Iron deficiency noted. 7. Volume overload. 8. Metabolic acidosis secondary to acute kidney injury. Better. Plan: Maintain IV iron. Repeat IV Lasix today. Avoid nephrotoxins. Continue to monitor renal function and urine output. Maintain midodrine.
[2024-01-22] MEDS: FUROSEMIDE 10 MG/ML 4 ML VIAL IV STA (12:45)
[2024-01-22] MEDS: HALOPERIDOL LACTATE 5 MG/ML 1 ML VIAL IVP PRN (13:37)
[2024-01-22] MEDS ORDERED: LORazepam 2 MG/ML INJ IM PRN (13:39)
[2024-01-22] MEDS: LORazepam 2 MG/ML INJ IV PRN (17:59)
--- NOTE | 2024-01-22 20:13 | PN ---
PROGRESS NOTE DATE OF SERVICE: 01/22/2024 CHIEF COMPLAINT: Advanced coronary artery disease. HISTORY OF PRESENT ILLNESS: This gentleman is not doing well. He has become confused, delirious, and at times lethargic. There are definitely mental status problems at this point. PHYSICAL EXAMINATION: GENERAL: He is lethargic and confused. VITAL SIGNS: Unremarkable. CHEST: Clear. CARDIAC: Normal. IMPRESSION: 1. Coronary artery disease. 2. Recent non ST segment elevation myocardial infarction. 3. Renal failure. 4. Anemia. 5. Hyperlipidemia. 6. Chronic obstructive pulmonary disease. 7. Delirium. PLAN: Continue to follow and monitor. He is going to have to be sedated again. His prognosis is poor at this time and it is likely that he is undergoing some cerebrovascular insufficiency issues. MMODL / IJN: [id number] /
[2024-01-22] MEDS: PEG 3350 (236 GM/BTL) + LYTES 4,000 ML BOTTLE PO ONE (20:16)
--- NOTE | 2024-01-22 22:58 | PN ---
PROGRESS NOTE SUBJECTIVE: This is a 68-year-old gentleman with a history of prior bypass surgery and also had a recent cardiac cath, which revealed that he had only patent graft and this graft has moderate disease with multiple layers of stent and was advised aortocoronary bypass surgery. However, he has multiple issues in the form of anxiety, bipolar disorder, also seems to have some kind of irrational behavior. He has anemia, receiving iron transfusion and going for endoscopy. However, he is in sinus rhythm, hemodynamically stable. Denies any chest discomfort. His agitation seems to have worsened this morning. He has an SVG to LAD with an in-stent restenosis and multiple layers of stents. OBJECTIVE: VITAL SIGNS: Stable. CARDIAC: S1, S2 heard normally. Short systolic murmur noted. LUNGS: Revealed decent air entry. ABDOMEN: Soft. LOWER EXTREMITIES: Revealed diminished pulses. PLAN: Continue current medications and proceed with endoscopy tomorrow and same medical regimen. Prognosis remains guarded. MMODL / IJN: [id number] /
[2024-01-22] MEDS: DARBEPOETIN ALFA 40 MCG/0.4 ML SYRINGE SQ SCH (23:17)
[2024-01-23 08:38] LABS: African American GFR (CKD) 33 (>60 ml/min/1.73 sqM); Anion Gap 15 mmol/L; Blood Urea Nitrogen 42 mg/dL (9-20); Calcium 9.4 mg/dL (8.4-10.2); Carbon Dioxide 21 mmol/L (22-30); Chloride 99 mmol/L (98-107); Glucose 97 mg/dL (74-99); Magnesium 2.3 mg/dL (1.6-2.3); Non-African American GFR(CKD) 29 (>60 ml/min/1.73 sqM); Potassium 4.2 mmol/L (3.5-5.1); Sodium 135 mmol/L (137-145)
--- NOTE | 2024-01-23 09:31 | P.PN ---
Progress Note - Text Progress Note Date: 01/23/24 Patient was scheduled to undergo EGD and colonoscopy as part of the workup for iron deficiency anemia and plans for possible bypass surgery. Patient had refused drinking any of his bowel prep therefore refusing to procedd with procdures. Discussed with patient he may follow-up with gastroenterology as an outpatient and perhaps schedule upper endoscopy and colonoscopy at that time. This was also discussed with Johnny Anthony NP with cardiothoracic surgery. Dr. Stoney Flood I agree with the dictator's note, documented as a scribe by Tonya Paz.
--- NOTE | 2024-01-23 10:52 | P.PN ---
Subjective Patient is seen in follow-up for acute kidney injury on chronic kidney disease. Renal function better. Has been voiding. Blood pressure stable. On midodrine. Daughter present at bedside. Vital signs are stable. General: No acute distress. HEENT: Head exam is unremarkable. On nasal cannula. LUNGS: No audible rhonchi or wheezes. HEART: Rate and Rhythm are regular. ABDOMEN: Nontender. EXTREMITITES: 1+ edema. Objective - Vital Signs Vital signs: Vital Signs Temp 98 F 01/23/24 04:00 Pulse 62 01/23/24 08:00 Resp 16 01/23/24 08:00 BP 115/65 01/23/24 08:00 Pulse Ox 97 01/23/24 08:00 FiO2 Intake & Output 01/22/24 01/23/24 01/23/24 18:59 06:59 18:59 Intake Total 670 240 Output Total 1250 400 Balance -580 -160 Intake: Intake, IV Titration 310 Amount Dextrose 5%-0.45% NaCl 1, 60 000 ml @ 100 mls/hr IV . Q10H [facility] Rx#:[id number] Heparin Sod,Pork in 0.45% 250 NaCl 25,000 unit In 0.45 % NaCl 1 250ml.bag @ 10. 7543 UNITS/KG/HR 10 mls/ hr IV .Q24H [facility] Rx#: [id number] Oral 360 240 Output: Urine 1250 400 Other: Voiding Method Toilet Toilet Toilet Bedside Commode Bedside Commode Bedside Commode Urinal Urinal Urinal # Voids 4 - Labs CBC & Chem 7: 01/22/24 09:14 01/23/24 07:06 Labs: Abnormal Lab Results - Last 24 Hours (Table) 01/23/24 Range/Units 07:06 Sodium 135 L (137-145) mmol/L Carbon Dioxide 21 L (22-30) mmol/L BUN 42 H (9-20) mg/dL Creatinine 2.29 H (0.66-1.25) mg/dL Microbiology - Last 24 Hours (Table) 01/19/24 15:10 Blood Culture - Preliminary Blood Assessment and Plan Plan: Assessment: 1. Acute kidney injury secondary to ATN secondary to hypotension and contrast associated acute kidney injury. Creatinine 3.27 this admission and is stable at 2.29 today. No hydronephrosis noted on kidney ultrasound. UA benign. 2. Chronic kidney disease stage IIIb with baseline creatinine 1.6-1.7. 3. Left kidney mass noted on ultrasound. Seen by urology. Prior CAT scan normal. No further interventions planned. 4. Acute on chronic systolic CHF with ejection fraction of 30 to 35%. 5. Coronary disease with history of CABG and PCI. Cardiology and cardiothoracic surgery following. Unable to take prep for endoscopy. 6. Anemia of chronic kidney disease. Iron deficiency noted -status post IV iron. On Aranesp. 7. Volume overload. 8. Metabolic acidosis secondary to acute kidney injury. Improved. Plan: Add IV Lasix 40 mg twice daily. Avoid nephrotoxins. Continue to monitor renal function and urine output. Maintain midodrine.
[2024-01-23] MEDS: FUROSEMIDE 10 MG/ML 4 ML VIAL IV SCH (11:46)
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
[2024-01-23] MEDS: APIXABAN 2.5 MG TABLET PO SCH (19:35)
[2024-01-24] MEDS: LORazepam 1 MG TAB PO PRN (02:41)
--- NOTE | 2024-01-24 03:38 | PN ---
PROGRESS NOTE DATE OF SERVICE: 01/23/2024 CHIEF COMPLAINT: Delirium and agitation. HISTORY OF PRESENT ILLNESS: This gentleman has been quite belligerent and agitated. This is not appropriate behavior for him. He denies chest pain or abdominal pain. PHYSICAL EXAMINATION: VITAL SIGNS: Normal. His physical exam is unchanged and normal. IMPRESSION: 1. Delirium and agitation, etiology unknown. 2. Coronary artery disease. 3. Renal failure. 4. Anemia. PLAN: It is clear that he is not going to be a candidate for coronary artery bypass graft soon and we will start to look for a discharge plan. MMCECILL / IJN: [id number] /
[2024-01-24] MEDS: CLOPIDOGREL 75 MG TAB PO SCH (09:03)
[2024-01-24 09:57] LABS: African American GFR (CKD) 35 (>60 ml/min/1.73 sqM); Anion Gap 15 mmol/L; Blood Urea Nitrogen 37 mg/dL (9-20); Calcium 9.8 mg/dL (8.4-10.2); Carbon Dioxide 20 mmol/L (22-30); Chloride 100 mmol/L (98-107); Glucose 135 mg/dL (74-99); Magnesium 2.2 mg/dL (1.6-2.3); Non-African American GFR(CKD) 30 (>60 ml/min/1.73 sqM); Potassium 3.9 mmol/L (3.5-5.1); Sodium 135 mmol/L (137-145)
--- NOTE | 2024-01-24 11:02 | P.PN ---
Subjective Patient is seen in follow-up for acute kidney injury on chronic kidney disease. Renal function fairly stable. Has been voiding. Blood pressure stable. On midodrine. On IV Lasix. Vital signs are stable. General: No acute distress. HEENT: Head exam is unremarkable. On nasal cannula. LUNGS: No audible rhonchi or wheezes. HEART: Rate and Rhythm are regular. ABDOMEN: Nontender. EXTREMITITES: 1+ edema. Objective - Vital Signs Vital signs: Vital Signs Temp 97.9 F 01/24/24 08:00 Pulse 79 01/24/24 08:00 Resp 16 01/24/24 08:00 BP 115/66 01/24/24 08:00 Pulse Ox 92 L 01/24/24 08:00 FiO2 Intake & Output 01/23/24 01/24/24 01/24/24 18:59 06:59 18:59 Intake Total 100 120 Output Total 450 300 Balance -350 -180 Intake: Intake, IV Titration 100 Amount Sodium Ferric Gluconat- 100 Sucrose 125 mg In Sodium Chloride 0.9% 100 ml @ 100 mls/hr IVPB DAILY [facility] Rx#:[id number] Oral 120 Output: Urine 450 300 Other: Voiding Method Toilet Toilet Bedside Commode Bedside Commode Urinal Urinal - Labs CBC & Chem 7: 01/22/24 09:14 01/24/24 08:59 Labs: Abnormal Lab Results - Last 24 Hours (Table) 01/24/24 Range/Units 08:59 Sodium 135 L (137-145) mmol/L Carbon Dioxide 20 L (22-30) mmol/L BUN 37 H (9-20) mg/dL Creatinine 2.19 H (0.66-1.25) mg/dL Glucose 135 H (74-99) mg/dL Assessment and Plan Plan: Assessment: 1. Acute kidney injury secondary to ATN secondary to hypotension and contrast associated acute kidney injury. Creatinine 3.27 this admission and is stable at 2.19 today. No hydronephrosis noted on kidney ultrasound. UA benign. 2. Chronic kidney disease stage IIIb with baseline creatinine 1.6-1.7. 3. Left kidney mass noted on ultrasound. Seen by urology. Prior CAT scan normal. No further interventions planned. 4. Acute on chronic systolic CHF with ejection fraction of 30 to 35%. 5. Coronary disease with history of CABG and PCI. Cardiology and cardiothoracic surgery following. Unable to take prep for endoscopy. 6. Anemia of chronic kidney disease. Iron deficiency noted -status post IV iron. On Aranesp. 7. Volume overload. 8. Metabolic acidosis secondary to acute kidney injury. On oral bicarb. Plan: Maintain IV Lasix 40 mg twice daily. Avoid nephrotoxins. Continue to monitor renal function and urine output. Maintain midodrine.
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
[2024-01-24] MEDS: DICLOFENAC SODIUM GEL 100 GM TUBE TOPICAL PRN (20:57)
--- NOTE | 2024-01-25 01:27 | PN ---
PROGRESS NOTE DATE OF SERVICE: 01/24/2024 CHIEF COMPLAINT: Coronary artery disease, renal failure, anemia, and COPD. HISTORY OF PRESENT ILLNESS: This gentleman is unchanged. He is slightly lethargic, but fairly well oriented. Apparently, he is refusing to go to rehab. His renal function is basically stabilized. It is now time for him to go home. He will not be able to manage at home alone. Apparently, there is a daughter (Cherie), who is planning on taking him home to live with her. Nobody has been able to reach her, however. It is unknown if she is willing to handle this situation and/or whether or not she has necessary capabilities, [employer], aide, etc. to do it. He has been aggressive and combative and it is not likely he will be taken into a custodial. I had a discussion with him regarding hospice and end of life issues. He wants to be resuscitated even though he remains being put on a ventilator and he does not want hospice. PHYSICAL EXAMINATION: Unchanged. IMPRESSION: 1. Recent non ST elevation myocardial infarction. 2. Advanced coronary artery disease. 3. Atherosclerotic cardiomyopathy. 4. Chronic obstructive pulmonary disease. 5. Hyperlipidemia. 6. Chronic kidney disease. 7. Anemia. PLAN: Continue to work on a discharge plan with the family, hopefully, getting involved. REYNALDO / CALLI: [phone] /
[2024-01-25 04:29] VITALS: TEMP 98.1
[2024-01-25 09:19] VITALS: RESP 16
[2024-01-25 10:35] LABS: African American GFR (CKD) 35 (>60 ml/min/1.73 sqM); Anion Gap 13 mmol/L; Blood Urea Nitrogen 35 mg/dL (9-20); Calcium 9.6 mg/dL (8.4-10.2); Carbon Dioxide 23 mmol/L (22-30); Chloride 101 mmol/L (98-107); Glucose 96 mg/dL (74-99); Magnesium 2.1 mg/dL (1.6-2.3); Non-African American GFR(CKD) 30 (>60 ml/min/1.73 sqM); Potassium 3.9 mmol/L (3.5-5.1); Sodium 137 mmol/L (137-145)
--- NOTE | 2024-01-25 10:48 | P.PN ---
Subjective Patient is seen in follow-up for acute kidney injury on chronic kidney disease. Renal function fairly stable. Has been voiding. Blood pressure stable. On midodrine. On IV Lasix. Confused. Vital signs are stable. General: No acute distress. HEENT: Head exam is unremarkable. On nasal cannula. LUNGS: No audible rhonchi or wheezes. HEART: Rate and Rhythm are regular. ABDOMEN: Nontender. EXTREMITITES: 1+ edema. Objective - Vital Signs Vital signs: Vital Signs Temp 98.1 F 01/25/24 04:00 Pulse 71 01/25/24 08:00 Resp 16 01/25/24 08:00 BP 115/65 01/25/24 08:00 Pulse Ox 94 L 01/25/24 08:31 FiO2 Intake & Output 01/24/24 01/25/24 01/25/24 18:59 06:59 18:59 Intake Total 740 240 120 Output Total 1000 Balance 740 -760 120 Weight 92.986 kg 108 kg Intake: IV 500 0.9 500 Oral 240 240 120 Output: Urine 1000 Other: Voiding Method Toilet Toilet Bedside Commode Bedside Commode Urinal Urinal # Voids 1 # Bowel Movements 1 - Labs CBC & Chem 7: 01/22/24 09:14 01/25/24 09:13 Labs: Abnormal Lab Results - Last 24 Hours (Table) 01/25/24 Range/Units 09:13 BUN 35 H (9-20) mg/dL Creatinine 2.22 H (0.66-1.25) mg/dL Microbiology - Last 24 Hours (Table) 01/19/24 15:10 Blood Culture - Final Blood Assessment and Plan Plan: Assessment: 1. Acute kidney injury secondary to ATN secondary to hypotension and contrast associated acute kidney injury. Creatinine 3.27 this admission and is stable at 2.22 today. No hydronephrosis noted on kidney ultrasound. UA benign. 2. Chronic kidney disease stage IIIb with baseline creatinine 1.6-1.7. 3. Left kidney mass noted on ultrasound. Seen by urology. Prior CAT scan normal. No further interventions planned. 4. Acute on chronic systolic CHF with ejection fraction of 30 to 35%. 5. Coronary disease with history of CABG and PCI. Cardiology and cardiot horacic surgery following. Unable to take prep for endoscopy. 6. Anemia of chronic kidney disease. Iron deficiency noted - status post IV iron. On Aranesp. 7. Volume overload. On IV Lasix. 8. Metabolic acidosis secondary to acute kidney injury. On oral bicarb. Better. Plan: Maintain IV Lasix 40 mg twice daily. Avoid nephrotoxins. Continue to monitor renal function and urine output. Maintain midodrine. Hold for systolic blood pressure greater than 115.
[2024-01-25] MEDS: metOLazone 5 MG TAB PO ONE (12:45)
[2024-01-25 13:02] VITALS: BP 117/70; PULSE 77
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
[2024-01-25 14:52] VITALS: BMI 35.2
--- NOTE | 2024-01-26 02:54 | DS ---
DISCHARGE SUMMARY CHIEF COMPLAINT: Chest pain and shortness of breath. HISTORY OF PRESENT ILLNESS AND PHYSICAL EXAMINATION: Details of this man's history and physical can be found in the initial workup. LABORATORY STUDIES: While he was in the hospital, he had laboratory studies, details of which can be found in the laboratory section of his chart. COURSE IN THE HOSPITAL: After admission, he was placed on bedrest and treated for his acute NSTEMI. He was seen by Cardiology and taken for cardiac cath. After that, it was determined that the best plan of action was to have him evaluated for a repeat CABG. He was seen by Vascular Surgery and his workup continued. However, he then went into acute renal failure with secondary anemia. He was seen by Nephrology. His GFR dropped down into the 30s or high 20s and chandan only slightly. In addition to that, the patient became a little bit more lethargic and delirious. He also started to threaten staff and acted out aggressively. Because of his renal function and general deterioration in his overall health, it was decided that he was not a candidate for the surgery. After that, consideration had to be made as to where he could go, and it was finally decided that he would go home with a brother. He will be followed by [facility] and we will continue to manage his care. Prognosis is poor. FINAL DIAGNOSES: 1. Acute non ST elevation myocardial infarction. 2. Advanced coronary artery disease. 3. Atherosclerotic cardiomyopathy. 4. Chronic congestive heart failure. 5. Chronic obstructive pulmonary disease. 6. Hyperlipidemia. 7. Delirium. 8. Aggressive personality. OPERATIONS: Cardiac cath. CONSULTATIONS: Cardiology, Cardiac Surgery, and Nephrology. MMODL / NATHALYN: [id number] /
== END 2024-01-25 14:35 | disposition home health service (06) | DRG 280 ==
LOC: EC 22:54 → 3SCARD 01-18 00:27
PROVIDERS: ADMIT Family Medicine; ATTEND Family Medicine
DX: I25.700 Atherosclerosis of coronary artery bypass graft(s), unspecified, with unstable angina pectoris (principal); I50.23 Acute on chronic systolic (congestive) heart failure; I21.3 ST elevation (STEMI) myocardial infarction of unspecified site; N17.0 Acute kidney failure with tubular necrosis; I13.0 Hypertensive heart and chronic kidney disease with heart failure and stage 1 through stage 4 chronic kidney disease, or unspecified chronic kidney disease; J96.11 Chronic respiratory failure with hypoxia; T82.855A Stenosis of coronary artery stent, initial encounter; E87.1 Hypo-osmolality and hyponatremia; F05 Delirium due to known physiological condition; F43.10 Post-traumatic stress disorder, unspecified; F43.20 Adjustment disorder, unspecified; G47.33 Obstructive sleep apnea (adult) (pediatric); I25.5 Ischemic cardiomyopathy; D63.1 Anemia in chronic kidney disease; E61.1 Iron deficiency; F31.9 Bipolar disorder, unspecified; E11.22 Type 2 diabetes mellitus with diabetic chronic kidney disease; N18.32 Chronic kidney disease, stage 3b; Y84.8 Other medical procedures as the cause of abnormal reaction of the patient, or of later complication, without mention of misadventure at the time of the procedure; Z90.49 Acquired absence of other specified parts of digestive tract; I08.2 Rheumatic disorders of both aortic and tricuspid valves; G89.29 Other chronic pain; M54.9 Dorsalgia, unspecified; M19.90 Unspecified osteoarthritis, unspecified site; M21.372 Foot drop, left foot
CPT/HCPCS: 36415; 76770; 80048; 80053; 81003; 82607; 82728; 82746; 83540; 83550; 83735; 83880; 84484; 85025; 85027; 85610; 85730; 87040; 93005; 94760; 99285

== ENCOUNTER 2024-02-07 13:37 | Emergency (ER) | payer MEDICARE, OTHER ==
[2024-02-07 13:53] VITALS: TEMP 97.7
--- NOTE | 2024-02-07 14:02 | ED ---
General Adult HPI - General Source: patient, RN notes reviewed Mode of arrival: ambulatory Limitations: no limitations <Serena Burnham - Last Filed: 02/07/24 14:01> <Kristian Cornejo - Last Filed: 02/07/24 19:01> - General Chief complaint: Nausea/Vomiting/Diarrhea Stated complaint: L shoulder pain, Nausea Time Seen by Provider: 02/07/24 13:50 - History of Present Illness Initial comments: Quick Note- 68-year-old male presents the ED with chief complaint of chest pressure that radiates to his back associated with left-sided shoulder pain. Additional symptoms of nausea, vomiting, headache. Patient has history CABG. (Serena Burnham) This is a 68-year-old male who presents to the emergency department with a past medical history significant for open heart surgery. Patient states he also has kidney failure and he is being prepped to have dialysis as well as have open heart surgery again. Patient states over the last 3 days has been coughing quite a bit and he has been having some sharp pain in his shoulder blade area he states it radiates a little bit to the chest. Patient denies any fevers or chills. Patient denies any sputum production when he coughs. Patient has any palpitation. Patient denies any shortness of breath or difficulty breathing worse than normal. Patient denies any abdominal pain patient has nausea vomiting. Patient has any other symptoms at this time (Kristian Cornejo) - Related Data Home Medications Medication Instructions Recorded Confirmed HYDROcodone/APAP 10-325MG [Eastern 1 tab PO QID PRN 02/22/15 01/18/24 10-325] rOPINIRole HCL [Requip] 0.25 mg PO HS 09/29/17 01/18/24 Fluticasone Nasal [place] [Flonase 1 spray EA NOSTRIL BID PRN 01/27/23 01/18/24 Nasal [place]] ALPRAZolam [Xanax] 2 mg PO TID PRN 03/15/23 01/18/24 Clopidogrel [Plavix] 75 mg PO DAILY 08/21/23 01/18/24 Cyclobenzaprine [Flexeril] 10 mg PO TID PRN 08/21/23 01/18/24 Isosorbide Mononitrate ER [Imdur] 30 mg PO DAILY 08/21/23 01/18/24 Omeprazole [PriLOSEC] 20 mg PO AC-BID 08/21/23 01/18/24 allopurinoL [Zyloprim] 100 mg PO DAILY 08/21/23 01/18/24 amLODIPine [Norvasc] 2.5 mg PO DAILY 08/21/23 01/18/24 lisinopriL [Zestril] 2.5 mg PO DAILY 08/21/23 01/18/24 Lidocaine 5% Patch [Lidoderm 5% 1 patch TRANSDERM DAILY 11/24/23 01/18/24 Patch] Albuterol Inhaler [Ventolin Hfa 1 - 2 puff INHALATION RT-Q6H PRN 12/22/23 01/18/24 Inhaler] Nitroglycerin Sl Tabs [Nitrostat] 0.4 mg SL Q5M PRN 01/13/24 01/18/24 Previous Rx's Medication Instructions Recorded Apixaban [Eliquis] 2.5 mg PO BID #60 tab 11/18/22 Ezetimibe [Zetia] 10 mg PO DAILY #90 tab 11/18/22 Fenofibrate [Lofibra] 160 mg PO DAILY #30 tab 12/01/22 Metoprolol Succinate (ER) [Toprol 50 mg PO DAILY #30 tab 02/01/23 XL] Aspirin 81 mg PO DAILY #100 tab 12/24/23 Dapagliflozin Propanediol [Farxiga] 5 mg PO DAILY #30 tab 12/24/23 Epoetin [place] [Procrit] 4,000 unit SUBDERMAL WEEKLY #10 01/25/24 each Ferrous Sulfate [Iron (65 MG 325 mg PO TID-W/MEALS #100 tab 01/25/24 Elemental)] Furosemide [Lasix] 40 mg PO DAILY #100 tab 01/25/24 Sodium Bicarbonate Tab 650 mg PO TID #100 tab 01/25/24 Allergies Allergy/AdvReac Type Severity Reaction Status Date / Time latex Allergy Swelling Verified 02/07/24 13:50 atorvastatin [From Lipitor] AdvReac JOINT PAIN Verified 02/07/24 13:50 Review of Systems ROS Other: All systems not noted in ROS Statement are negative. <Serena Burnham - Last Filed: 02/07/24 14:01> ROS Other: All systems not noted in ROS Statement are negative. <Kristian Cornejo - Last Filed: 02/07/24 19:01> ROS Statement: Those systems with pertinent positive or pertinent negative responses have been documented in the HPI. Past Medical History Past Medical History: Coronary Artery Disease (CAD), Chest Pain / Angina, Heart Failure, COPD, GERD/Reflux, Hyperlipidemia, Hypertension, Myocardial Infarction ([place]), Osteoarthritis (OA), Sleep Apnea/CPAP/BIPAP Additional Past Medical History / Comment(s): hiatal hernia, chronic back pain, L foot drop, numbness/tingling bilateral legs, HUSAM without device, states stents x7 Last Myocardial Infarction Date:: 11/11/22 History of Any Multi-Drug Resistant Organisms: None Reported Past Surgical History: Back Surgery, Cholecystectomy, Coronary Bypass/CABG, Heart Catheterization With Stent, Orthopedic Surgery Additional Past Surgical History / Comment(s): Back surg x 2 with cage. L tennis elbow surg. HEART STENTS X7. Colonoscopy. Lasik eye surgery bilaterally. Emergency Cabg [facility] Past Anesthesia/Blood Transfusion Reactions: No Reported Reaction Additional Past Anesthesia/Blood Transfusion Reaction / Comment(s): Pt received blood during CABG without reaction. Date of Last Stent Placement:: Oct 2022 Past Psychological History: Anxiety, Depression, PTSD Smoking Status: Current every day smoker Past Alcohol Use History: None Reported Past Drug Use History: None Reported - Past Family History Father Family Medical History: Coronary Artery Disease (CAD), Deep Vein Thrombosis (DVT), GERD/Reflux, Hyperlipidemia Additional Family Medical History / Comment(s): Father of a [place] in his 80's Mother Family Medical History: Coronary Artery Disease (CAD) Additional Family Medical History / Comment(s): Mother of a [place] at the age of 76yrs. Sister(s) Family Medical History: Cancer Additional Family Medical History / Comment(s): Lung cancer. <Serena Burnham - Last Filed: 02/07/24 14:01> General Exam Limitations: no limitations <Serena Burnham - Last Filed: 02/07/24 14:01> <Kristian Cornejo - Last Filed: 02/07/24 19:01> - General Exam Comments Initial Comments: Visual Physical Exam Vital signs reviewed General: Well-appearing, nontoxic, no acute distress. Head: Normocephalic, atraumatic Eyes: PERRLA, EOMI ENT: Airway patent Chest: Nonlabored breathing Skin: No visual rash, normal skin tone Neuro: Alert and oriented 3 Musculoskeletal: No gross abnormalities (Serena Burnham) GENERAL: Patient is well-developed and well-nourished. Patient is nontoxic and well- hydrated and is in mild distress. ENT: Neck is soft and supple. No significant lymphadenopathy is noted. Oropharynx is clear. Moist mucous membranes. Neck has full range of motion without eliciting any pain. EYES: The sclera were anicteric and conjunctiva were pink and moist. Extraocular movements were intact and pupils were equal round and reactive to light. Eyel ids were unremarkable. PULMONARY: Unlabored respirations. Good breath sounds bilaterally. No audible rales rhonchi or wheezing was noted. CARDIOVASCULAR: There is a regular rate and rhythm without any murmurs gallops or rubs. Femoral pulses are equal bilaterally ABDOMEN: Soft and nontender with normal bowel sounds. SKIN: Skin is clear with no lesions or rashes and otherwise unremarkable. NEUROLOGIC: Patient is alert and oriented x3. Cranial nerves II through XII are grossly intact. Motor and sensory are also intact. Normal speech, volume and content. Symmetrical smile. MUSCULOSKELETAL: Normal extremities with adequate strength and full range of motion. No lower extremity swelling or edema. No calf tenderness. Pain over the shoulder blade was reproducible on palpation LYMPHATICS: No significant lymphadenopathy is noted PSYCHIATRIC: Normal psychiatric evaluation. (Kristian Cornejo) Course Vital Signs 02/07/24 02/07/24 13:46 17:19 Temperature 97.7 F Pulse Rate 76 73 Respiratory 18 18 Rate Blood Pressure 120/72 92/54 O2 Sat by Pulse 96 96 Oximetry Medical Decision Making <Serena Burnham - Last Filed: 02/07/24 14:01> - Lab Data Result diagrams: 02/07/24 15:05 02/07/24 15:05 <Kristian Cornejo - Last Filed: 02/07/24 19:01> - Medical Decision Making I completed the quick note portion of this chart signed Serena Burnham PA-C (Serena Burnham) EKG was interpreted by myself. EKG shows a sinus rhythm at 74 bpm parables 149 QRS is 110 QT interval is 430 QTc is 457. Patient's EKG shows Q waves in leads II, III and aVF there is no obvious ST segment elevation Was pt. sent in by a medical professional or institution (, ROBERT, ORGANIC CHEMISTRY PROFESSOR, urgent care, hospital, or care home...) When possible be specific @ -No Did you speak to anyone other than the patient for history (EMS, parent, family, police, friend...)? What history was obtained from this source @ -No Did you review nursing and triage notes (agree or disagree)? Why? @ -I reviewed and agree with nursing and triage notes Were old charts reviewed (outside hosp., previous admission, EMS record, old EKG, old radiological studies, urgent care reports/EKG's, care home records)? Report findings @ -I compared x-ray today from previous x-rays. I also compared today's lab work from previous lab work patient's creatinine got considerably better. Differential Diagnosis (chest pain, altered mental status, abdominal pain women, abdominal pain men, vaginal bleeding, weakness, fever, dyspnea, syncope, headache, dizziness, GI bleed, back pain, seizure, CVA, palpatations, mental health, musculoskeletal)? @ -Differential Back Pain: Strain, zoster, cauda equina syndrome, epidural abscess, vertebral osteomyelitis, discitis, fracture, subluxation, disc herniation, DJD, spinal stenosis, dissection, AAA, pancreatitis, peptic ulcer disease, pyelonephritis, k idney stone, this is not meant to be an all-inclusive list. Differential Chest Pain: Stable Angina, Unstable Angina, STEMI, NSTEMI Aortic Dissection, Pneumothorax, Musculoskeletal, Esophageal Spasm GERD, Cholecystitis, Pancreatitis, Zoster, this is not meant to be an all-inclusive list. EKG interpreted by me (3pts min.). @ -As above X-rays interpreted by me (1pt min.). @ -Chest x-ray shows no acute abnormality CT interpreted by me (1pt min.). @ -None done U/S interpreted by me (1pt. min.). @ -None done What testing was considered but not performed or refused? (CT, X-rays, U/S, labs)? Why? @ -None What meds were considered but not given or refused? Why? @ -None Did you discuss the management of the patient with other professionals (professionals i.e. , PA, ORGANIC CHEMISTRY PROFESSOR, lab, RT, psych nurse, social work professor, truss puller helper, teacher, state patrol officer, comp field case manager)? Give summary @ -I spoke with Dr. Yu and he agreed to admit the patient Was smoking cessation discussed for >3mins.? @ -No Was critical care preformed (if so, how long)? @ -No Were there social determinants of health that impacted care today? How? (Homelessness, low income, unemployed, alcoholism, drug addiction, transportation, low edu. Level, literacy, decrease access to med. care, skilled nursing, rehab)? @ -No Was there de-escalation of care discussed even if they declined (Discuss DNR or withdrawal of care, Hospice)? DNR status @ -No What co-morbidities impacted this encounter? (DM, HTN, Smoking, COPD, CAD, Cancer, CVA, ARF, Chemo, Hep., AIDS, mental health diagnosis, sleep apnea, morbid obesity)? @ -None Was patient admitted / discharged? Hospital course, mention meds given and route, prescriptions, significant lab abnormalities, going to OR and other pertinent info. @ -Patient's potassium was 2.6 I replaced that with IV and p.o. Patient's magnesium 1.5 to give the patient 1 g of magnesium sulfate. Patient's chest pain was much improved and went back into reevaluate the patient. Because of the patient's history I wanted to admit the patient I spoke with Dr. Yu and he was in agreement with admission. Patient did receive multiple shots for pain medication for his back and he did feel better. At a later time patient told the nurse he did not want to stay even though it risks were explained to him he decided to leave AMA Undiagnosed new problem with uncertain prognosis? @ -No Drug Therapy requiring intensive monitoring for toxicity (Heparin, Nitro, Insulin, Cardizem)? @ -No Were any procedures done? @ -No Diagnosis/symptom? @ -Default Acute, or Chronic, or Acute on Chronic? @ -Chest pain acute Uncomplicated (without systemic symptoms) or Complicated (systemic symptoms)? @ -Complicated Side effects of treatment? @ -No Exacerbation, Progression, or Severe Exacerbation? @ -No Poses a threat to life or bodily function? How? (Chest pain, [place], [place], pneumonia, PE, COPD, DKA, ARF, appy, cholecystitis, CVA, Diverticulitis, Homicidal, Suicidal, threat to staff... and all critical care pts) @ -Yes this could lead to an [place] and endorgan dysfunction Diagnosis/symptom? @ -Hypokalemia Acute, or Chronic, or Acute on Chronic? @ -Acute Uncomplicated (without systemic symptoms) or Complicated (systemic symptoms)? @ -Complicated Side effects of treatment? @ -None Exacerbation, Progression, or Severe Exacerbation] @ -No Poses a threat to life or bodily function? @ -No Diagnosis/symptom? @ -Hypomagnesemia Acute, or Chronic, or Acute on Chronic? @ -Acute Uncomplicated (without systemic symptoms) or Complicated (systemic symptoms)? @ -Uncomplicated Side effects of treatment? @ -None Exacerbation, Progression, or Severe Exacerbation] @ -No Poses a threat to life or bodily function? @ -No (Kristian Cornejo) - Lab Data Lab Results 02/07/24 02/07/24 02/07/24 Range/Units 15:05 15:05 15:05 WBC 6.7 (3.8-10.6) k/uL RBC 3.85 L (4.30-5.90) m/uL Hgb 10.2 L (13.0-17.5) gm/dL Hct 33.6 L (39.0-53.0) % MCV 87.3 (80.0-100.0) fL MCH 26.4 (25.0-35.0) pg MCHC 30.3 L (31.0-37.0) g/dL RDW 22.5 H (11.5-15.5) % Plt Count 159 (150-450) k/uL MPV 9.8 Neutrophils % 78 % Lymphocytes % 12 % Monocytes % 6 % Eosinophils % 1 % Basophils % 0 % Neutrophils # 5.3 (1.3-7.7) k/uL Lymphocytes # 0.8 L (1.0-4.8) k/uL Monocytes # 0.4 (0-1.0) k/uL Eosinophils # 0.1 (0-0.7) k/uL Basophils # 0.0 (0-0.2) k/uL Hypochromasia Marked Anisocytosis Moderate Microcytosis Slight PT 11.7 (10.0-12.5) sec INR 1.1 (<1.2) APTT 26.7 (22.0-30.0) sec Sodium 140 (137-145) mmol/L Potassium 2.6 L* (3.5-5.1) mmol/L Chloride 98 (98-107) mmol/L Carbon Dioxide 32 H (22-30) mmol/L Anion Gap 10 mmol/L BUN 19 (9-20) mg/dL Creatinine 1.56 H (0.66-1.25) mg/dL Est GFR (CKD-EPI)AfAm 53 (>60 ml/min/1.73 sqM) Est GFR (CKD-EPI)NonAf 46 (>60 ml/min/1.73 sqM) Glucose 106 H (74-99) mg/dL Calcium 9.3 (8.4-10.2) mg/dL Magnesium 1.5 L (1.6-2.3) mg/dL Total Bilirubin 1.8 H (0.2-1.3) mg/dL AST 36 (17-59) U/L ALT 14 (4-49) U/L Alkaline Phosphatase 127 H (38-126) U/L Troponin I (0.000-0.034) ng/mL NT-Pro-B Natriuret Pep 6170 pg/mL Total Protein 7.5 (6.3-8.2) g/dL Albumin 4.2 (3.5-5.0) g/dL Amylase 46 (30-110) U/L Lipase 65 (23-300) U/L Urine Color Urine Appearance (Clear) Urine pH (5.0-8.0) Ur Specific [place] (1.001-1.035) Urine Protein (Negative) Urine Glucose (UA) (Negative) Urine Ketones (Negative) Urine Blood (Negative) Urine Nitrite (Negative) Urine Bilirubin (Negative) Urine Urobilinogen (<2.0) mg/dL Ur Leukocyte Esterase (Negative) 02/07/24 02/07/24 Range/Units 15:05 16:29 WBC (3.8-10.6) k/uL RBC (4.30-5.90) m/uL Hgb (13.0-17.5) gm/dL Hct (39.0-53.0) % MCV (80.0-100.0) fL MCH (25.0-35.0) pg MCHC (31.0-37.0) g/dL RDW (11.5-15.5) % Plt Count (150-450) k/uL MPV Neutrophils % % Lymphocytes % % Monocytes % % Eosinophils % % Basophils % % Neutrophils # (1.3-7.7) k/uL Lymphocytes # (1.0-4.8) k/uL Monocytes # (0-1.0) k/uL Eosinophils # (0-0.7) k/uL Basophils # (0-0.2) k/uL Hypochromasia Anisocytosis Microcytosis PT (10.0-12.5) sec INR (<1.2) APTT (22.0-30.0) sec Sodium (137-145) mmol/L Potassium (3.5-5.1) mmol/L Chloride (98-107) mmol/L Carbon Dioxide (22-30) mmol/L Anion Gap mmol/L BUN (9-20) mg/dL Creatinine (0.66-1.25) mg/dL Est GFR (CKD-EPI)AfAm (>60 ml/min/1.73 sqM) Est GFR (CKD-EPI)NonAf (>60 ml/min/1.73 sqM) Glucose (74-99) mg/dL Calcium (8.4-10.2) mg/dL Magnesium (1.6-2.3) mg/dL Total Bilirubin (0.2-1.3) mg/dL AST (17-59) U/L ALT (4-49) U/L Alkaline Phosphatase (38-126) U/L Troponin I 0.030 (0.000-0.034) ng/mL NT-Pro-B Natriuret Pep pg/mL Total Protein (6.3-8.2) g/dL Albumin (3.5-5.0) g/dL Amylase (30-110) U/L Lipase (23-300) U/L Urine Color Yellow Urine Appearance Clear (Clear) Urine pH 6.0 (5.0-8.0) Ur Specific [place] 1.015 (1.001-1.035) Urine Protein Trace H (Negative) Urine Glucose (UA) Negative (Negative) Urine Ketones Negative (Negative) Urine Blood Negative (Negative) Urine Nitrite Negative (Negative) Urine Bilirubin Negative (Negative) Urine Urobilinogen 8.0 (<2.0) mg/dL Ur Leukocyte Esterase Negative (Negative) Disposition <Serena Burnham - Last Filed: 02/07/24 14:01> Time of Disposition: 18:58 <Kristian Cornejo - Last Filed: 02/07/24 19:01> Clinical Impression: Chest pain, Back pain Disposition: LEFT AGAINST MEDICAL ADVICE Referrals: Alexx Gee MD [Primary Care Provider] - 1-2 days
--- NOTE | 2024-02-07 14:20 | XR ---
EXAMINATION TYPE: XR chest 2V DATE OF EXAM: 02/07/2024 COMPARISON: 01/13/2024 HISTORY: Shortness of breath TECHNIQUE: Frontal and lateral views of the chest are obtained. FINDINGS: Scattered senescent parenchymal changes noted. Hyperinflation compatible with COPD. Right basilar pleural effusion is unchanged. Associated atelectasis or infiltrate is not excluded. Heart size is stable. Mediastinal structures are stable and grossly unremarkable. No evidence for hilar prominence. Degenerative changes dorsal spine. IMPRESSION: 1. Right basilar pleural effusion is unchanged. Associated atelectasis or infiltrate is not excluded.
[2024-02-07] MEDS: ONDANSETRON 4 MG/2 ML VIAL IVP STA (14:59)
[2024-02-07] MEDS: KETOROLAC 15 MG/ML 1 ML VIAL IVP STA (15:00)
[2024-02-07 15:40] LABS: INR 1.1 (<1.2); Partial Thromboplastin Time 26.7 sec (22.0-30.0); Prothrombin Time 11.7 sec (10.0-12.5)
[2024-02-07 15:54] LABS: Anisocytosis Moderate; Basophils % (A) 0 %; Eosinophils # (A) 0.1 k/uL (0-0.7); Eosinophils % (A) 1 %; HCT 33.6 % (39.0-53.0); HGB 10.2 gm/dL (13.0-17.5); Hypochromasia Marked; Lymphocytes # (A) 0.8 k/uL (1.0-4.8); Lymphocytes % (A) 12 %; MCH 26.4 pg (25.0-35.0); MCHC 30.3 g/dL (31.0-37.0); MCV 87.3 fL (80.0-100.0); Mean Platelet Volume 9.8; Microcytosis Slight; Monocytes # (A) 0.4 k/uL (0-1.0); Monocytes % (A) 6 %; Neutrophils # (A) 5.3 k/uL (1.3-7.7); Neutrophils % (A) 78 %; Platelet Count 159 k/uL (150-450); RBC 3.85 m/uL (4.30-5.90); RDW 22.5 % (11.5-15.5); WBC 6.7 k/uL (3.8-10.6)
[2024-02-07] MEDS: HYDROmorphone 0.5 MG/0.5 ML SYRINGE IVP STA ×2 (16:35→18:58)
[2024-02-07 17:34] LABS: Appearance,Urine Clear (Clear); Bilirubin,Urine Negative (Negative); Blood,Urine Negative (Negative); Color,Urine Yellow; Glucose,Urine (UA) Negative (Negative); Ketones,Urine Negative (Negative); Leukocyte Esterase,Urine Negative (Negative); Nitrite,Urine Negative (Negative); Protein,Urine Trace (Negative); Specific Gravity,Urine 1.015 (1.001-1.035)
[2024-02-07 17:34] LABS: ALT 14 U/L (4-49); AST 36 U/L (17-59); African American GFR (CKD) 53 (>60 ml/min/1.73 sqM); Albumin 4.2 g/dL (3.5-5.0); Alkaline Phosphatase 127 U/L (38-126); Amylase 46 U/L (30-110); Anion Gap 10 mmol/L; Blood Urea Nitrogen 19 mg/dL (9-20); Calcium 9.3 mg/dL (8.4-10.2); Carbon Dioxide 32 mmol/L (22-30); Chloride 98 mmol/L (98-107); Glucose 106 mg/dL (74-99); Lipase 65 U/L (23-300); Magnesium 1.5 mg/dL (1.6-2.3); Non-African American GFR(CKD) 46 (>60 ml/min/1.73 sqM); Sodium 140 mmol/L (137-145); Total Bilirubin 1.8 mg/dL (0.2-1.3); Total Protein 7.5 g/dL (6.3-8.2)
[2024-02-07 17:38] LABS: Potassium 2.6 mmol/L (3.5-5.1)
[2024-02-07 17:49] LABS: NT-Pro-B-Type Natriuretic Pept 6170 pg/mL
[2024-02-07] MEDS ORDERED: POTASSIUM CHLORIDE ER 20 MEQ TAB.ER PO STA (17:59)
[2024-02-07] MEDS ORDERED: MAGNESIUM SULFATE-D5W PMX 1 GM in DEXTROSE/WATER 1 100ML.BAG IVPB ONE (17:59)
[2024-02-07] MEDS ORDERED: POTASSIUM CHLORIDE 20 MEQ in WATER FOR INJECTION 1 100ML.BAG IVPB STA (18:00)
[2024-02-07 19:44] VITALS: BP 109/87; PULSE 75; RESP 16
--- NOTE | 2024-02-08 23:54 | HP ---
HISTORY AND PHYSICAL He was in the emergency room. CHIEF COMPLAINT: Back pain, CAD, CHF, and renal failure. HISTORY OF PRESENT ILLNESS: This is another visit for this gentleman, who has been in and out of the hospital lately with coronary artery disease, congestive heart failure, CKD, hyperlipidemia, and low back pain. He presented back to emergency room complaining largely of low back pain. He also stated that he was having some trouble with shortness of breath and chest discomfort. Renal function was about the same. It was planned that he would be admitted for further assessment of his back pain in addition to re-evaluating his renal function and congestive heart failure. REVIEW OF SYSTEMS: He denied diaphoresis, focal neurologic deficits, etc. Past medical history, family history, and personal and social histories were all otherwise unremarkable and noncontributory and unchanged from his recent visit to the hospital. PHYSICAL EXAMINATION: VITAL SIGNS: Blood pressure is 112/64 with a pulse of 89, respirations of 36, and he is afebrile. GENERAL: He appeared to be slightly pale. He is chronically ill in appearance. HEAD, EARS, EYES, NOSE, MOUTH AND THROAT: Normal. NECK: Neck veins were slightly distended. There were spontaneous venous pulsations. CHEST: Demonstrated scattered rales. CARDIAC: Demonstrated sinus tachycardia. ABDOMEN: Soft and nontender. EXTREMITIES: Normal. IMPRESSION: 1. Low back pain. 2. Shortness of breath. 3. Acute on chronic CHF. 4. Advanced coronary artery disease. 5. Atherosclerotic cardiomyopathy. 6. Hyperlipidemia. 7. Chronic obstructive pulmonary disease. 8. LS spine arthritis. PLAN: 1. Bedrest. 2. IV fluids. 3. Troponins and BNP. 4. Possible physical therapy. MMODL / IJN: [id number] /
--- NOTE | 2024-02-09 00:30 | DS ---
DISCHARGE SUMMARY CHIEF COMPLAINT: Back pain and shortness of breath. HISTORY OF PRESENT ILLNESS AND PHYSICAL EXAMINATION: Details of this man's history and physical can be found in the initial workup. COURSE IN THE HOSPITAL: After admission, he was placed on bedrest in the emergency room and was being prepared to be admitted for further assessment of his back pain, CHF, and renal failure. He then decided to sign himself out against medical advice. He left the hospital on his usual activity, diet, medications and will be followed up in the office. FINAL DIAGNOSES: 1. Low back pain. 2. Acute on chronic congestive heart failure. 3. Atherosclerotic cardiomyopathy. 4. Congestive heart failure. 5. Chronic kidney disease. 6. Chronic obstructive pulmonary disease. 7. Major depression. OPERATIONS: None. CONSULTATIONS: None. REYNALDO / CALLI: [id number] /
== END 2024-02-07 19:30 | disposition left against medical advice (07) ==
LOC: EC 13:37
DX: J90 Pleural effusion, not elsewhere classified (principal); M54.9 Dorsalgia, unspecified; F17.200 Nicotine dependence, unspecified, uncomplicated; Z91.040 Latex allergy status; Z88.8 Allergy status to other drugs, medicaments and biological substances; Z53.29 Procedure and treatment not carried out because of patient's decision for other reasons
CPT/HCPCS: 36415; 93005; 83880; 80053; 82150; 83690; 83735; 84484; 85025; 85610; 85730; 81003; 71046; 99285; 96374; 96375 ×2; 96376; J2405; J1885; J1170

== ENCOUNTER 2024-02-26 22:12 | Emergency (ER) | payer MEDICARE, OTHER ==
--- NOTE | 2024-02-26 22:26 | ED ---
Chest Pain HPI - General Source: patient, RN notes reviewed Mode of arrival: ambulatory Limitations: no limitations <Adams Luis - Last Filed: 02/26/24 22:26> <Ava Field - Last Filed: 03/01/24 23:33> - General Chief Complaint: Chest Pain Stated Complaint: Chest Pain,Sob Time Seen by Provider: 02/26/24 22:20 - History of Present Illness Initial Comments: 68-year-old male with a past medical history significant for coronary artery disease status post CABG and stenting presented to the ED with chief complaint of chest pain. Reports onset of right-sided chest pain a few hours ago on the right side of his chest going across his entire chest seeming to radiate to the left arm with some associated nausea and shortness of breath. (Adams Luis) 68-year-old man with past medical history of coronary artery disease status post CABG who presents emergency department reporting chest pain. States that the pain is located over the left side of his chest. It started a couple hours prior to hospital arrival. He did not take anything at home for his pain before coming into the hospital. The pain radiated to his left arm. He had associated nausea, diaphoresis and shortness of breath. Pain has subsided mostly and is graded as a 6 out of 10 at this time. He denies any fevers, chills or cough. No ripping or tearing station to his back. No other alleviating, precipitating or modifying factors (Ava Field) - Related Data Home Medications Medication Instructions Recorded Confirmed HYDROcodone/APAP 10-325MG [[place] 1 tab PO QID PRN 02/22/15 02/27/24 10-325] rOPINIRole HCL [Requip] 0.25 mg PO HS 09/29/17 02/27/24 Fluticasone Nasal [place] [Flonase 1 spray EA NOSTRIL BID PRN 01/27/23 02/27/24 Nasal [place]] ALPRAZolam [Xanax] 2 mg PO TID PRN 03/15/23 02/27/24 Clopidogrel [Plavix] 75 mg PO DAILY 08/21/23 02/27/24 Cyclobenzaprine [Flexeril] 10 mg PO TID PRN 08/21/23 02/27/24 Isosorbide Mononitrate ER [Imdur] 30 mg PO DAILY 08/21/23 02/27/24 Omeprazole [PriLOSEC] 20 mg PO AC-BID 08/21/23 02/27/24 allopurinoL [Zyloprim] 100 mg PO DAILY 08/21/23 02/27/24 amLODIPine [Norvasc] 2.5 mg PO DAILY 08/21/23 02/27/24 lisinopriL [Zestril] 2.5 mg PO DAILY 08/21/23 02/27/24 Lidocaine 5% Patch [Lidoderm 5% 1 patch TRANSDERM DAILY 11/24/23 02/27/24 Patch] Albuterol Inhaler [Ventolin Hfa 1 - 2 puff INHALATION RT-Q6H PRN 12/22/23 02/27/24 Inhaler] Nitroglycerin Sl Tabs [Nitrostat] 0.4 mg SL Q5M PRN 01/13/24 02/27/24 Potassium Chloride [Klor-Con M20] 20 meq PO DAILY 02/27/24 02/27/24 Previous Rx's Medication Instructions Recorded Apixaban [Eliquis] 2.5 mg PO BID #60 tab 11/18/22 Ezetimibe [Zetia] 10 mg PO DAILY #90 tab 11/18/22 Fenofibrate [Lofibra] 160 mg PO DAILY #30 tab 12/01/22 Metoprolol Succinate (ER) [Toprol 50 mg PO DAILY #30 tab 02/01/23 XL] Aspirin 81 mg PO DAILY #100 tab 12/24/23 Dapagliflozin Propanediol [Farxiga] 5 mg PO DAILY #30 tab 12/24/23 Epoetin [place] [Procrit] 4,000 unit SUBDERMAL WEEKLY #10 01/25/24 each Ferrous Sulfate [Iron (65 MG 325 mg PO TID-W/MEALS #100 tab 01/25/24 Elemental)] Furosemide [Lasix] 40 mg PO DAILY #100 tab 01/25/24 Sodium Bicarbonate Tab 650 mg PO TID #100 tab 01/25/24 Allergies Allergy/AdvReac Type Severity Reaction Status Date / Time latex Allergy Swelling Verified 02/27/24 08:05 atorvastatin [From Lipitor] AdvReac JOINT PAIN Verified 02/27/24 08:05 Review of Systems ROS Other: All systems not noted in ROS Statement are negative. <Adams Luis - Last Filed: 02/26/24 22:26> ROS Other: All systems not noted in ROS Statement are negative. <Ava Field Kavitha - Last Filed: 03/01/24 23:33> ROS Statement: Those systems with pertinent positive or pertinent negative responses have been documented in the HPI. Past Medical History Past Medical History: Coronary Artery Disease (CAD), Chest Pain / Angina, Heart Failure, COPD, GERD/Reflux, Hyperlipidemia, Hypertension, Myocardial Infarction (TX), Osteoarthritis (OA), Sleep Apnea/CPAP/BIPAP Additional Past Medical History / Comment(s): hiatal hernia, chronic back pain, L foot drop, numbness/tingling bilateral legs, HUSAM without device, states stents x7 Last Myocardial Infarction Date:: 11/11/22 History of Any Multi-Drug Resistant Organisms: None Reported Past Surgical History: Back Surgery, Cholecystectomy, Coronary Bypass/CABG, Heart Catheterization With Stent, Orthopedic Surgery Additional Past Surgical History / Comment(s): Back surg x 2 with cage. L tennis elbow surg. HEART STENTS X7. Colonoscopy. Lasik eye surgery bilaterally. Emergency Cabg [facility] Past Anesthesia/Blood Transfusion Reactions: No Reported Reaction Additional Past Anesthesia/Blood Transfusion Reaction / Comment(s): Pt received blood during CABG without reaction. Date of Last Stent Placement:: Oct 2022 Past Psychological History: Anxiety, Depression, PTSD Smoking Status: Current every day smoker Past Alcohol Use History: None Reported Past Drug Use History: None Reported - Past Family History Father Family Medical History: Coronary Artery Disease (CAD), Deep Vein Thrombosis (DVT), GERD/Reflux, Hyperlipidemia Additional Family Medical History / Comment(s): Father of a [place] in his 80's Mother Family Medical History: Coronary Artery Disease (CAD) Additional Family Medical History / Comment(s): Mother of a [place] at the age of 76yrs. Sister(s) Family Medical History: Cancer Additional Family Medical History / Comment(s): Lung cancer. <Adams Luis - Last Filed: 02/26/24 22:26> General Exam Limitations: no limitations <Adams Luis - Last Filed: 02/26/24 22:26> General appearance: alert, in no apparent distress Head exam: Present: atraumatic, normocephalic, normal inspection Eye exam: Present: normal appearance, PERRL, EOMI. Absent: scleral icterus, conjunctival injection, periorbital swelling ENT exam: Present: normal exam, mucous membranes moist Neck exam: Present: normal inspection. Absent: tenderness, meningismus, lymphadenopathy Respiratory exam: Present: normal lung sounds bilaterally. Absent: respiratory distress, wheezes, rales, rhonchi, stridor Cardiovascular Exam: Present: regular rate, normal rhythm, normal heart sounds. Absent: systolic murmur, diastolic murmur, rubs, gallop, clicks GI/Abdominal exam: Present: soft, normal bowel sounds. Absent: distended, tenderness, guarding, rebound, rigid Extremities exam: Present: normal inspection, full ROM, normal capillary refill. Absent: tenderness, pedal edema, joint swelling, calf tenderness Back exam: Present: normal inspection Neurological exam: Present: alert, oriented X3, CN II-XII intact Psychiatric exam: Present: normal affect, normal mood Skin exam: Present: warm, dry, intact, normal color. Absent: rash <Ava Field - Last Filed: 03/01/24 23:33> - General Exam Comments Initial Comments: Visual Physical Exam Vital signs reviewed General: Well-appearing, nontoxic, no acute distress. Head: Normocephalic, atraumatic Eyes: PERRLA, EOMI ENT: Airway patent Chest: Nonlabored breathing Skin: No visual rash, normal skin tone Neuro: Alert and oriented 3 Musculoskeletal: No gross abnormalities (Adams Luis) Course Vital Signs 02/26/24 02/27/24 02/27/24 22:17 01:30 02:29 Temperature 97.9 F Pulse Rate 92 78 87 Respiratory 18 18 18 Rate Blood Pressure 120/72 108/64 123/78 O2 Sat by Pulse 98 98 96 Oximetry 02/27/24 03:59 Temperature 98 F Pulse Rate 71 Respiratory 20 Rate Blood Pressure 126/76 O2 Sat by Pulse 98 Oximetry Chest Pain MDM <Adams Luis - Last Filed: 02/26/24 22:26> <Ava Field - Last Filed: 03/01/24 23:33> - MDM Quicknote portion performed. Signed Adams Luis Adams Dugan) Was pt. sent in by a medical professional or institution (ROBERT Zelaya, [employer]S [employer], urgent care, hospital, or senior living...) When possible be specific @ -No Did you speak to anyone other than the patient for history (EMS, parent, family, police, friend...)? What history was obtained from this source @ -No Did you review nursing and triage notes (agree or disagree)? Why? @ -I reviewed and agree with nursing and triage notes Were old charts reviewed (outside hosp., previous admission, EMS record, old EKG, old radiological studies, urgent care reports/EKG's, senior living records)? Report findings @ -I reviewed patient's discharge summary from January 24, 2014 Differential Diagnosis (chest pain, altered mental status, abdominal pain women, abdominal pain men, vaginal bleeding, weakness, fever, dyspnea, syncope, headache, dizziness, GI bleed, back pain, seizure, CVA, palpatations, mental health, musculoskeletal)? @ -Differential Chest Pain: Stable Angina, Unstable Angina, STEMI, NSTEMI Aortic Dissection, Pneumothorax, Musculoskeletal, Esophageal Spasm GERD, Cholecystitis, Pancreatitis, Zoster, this is not meant to be an all-inclusive list. EKG interpreted by me (3pts min.). @ -Yes and demonstrates sinus tachycardia with a rate of 100. OK interval 172. QRS 104. QTc of 431. Q waves in the inferior leads. No acute ST segment elevation X-rays interpreted by me (1pt min.). @ -Yes and demonstrates no acute process CT interpreted by me (1pt min.). @ -None done U/S interpreted by me (1pt. min.). @ -None done What testing was considered but not performed or refused? (CT, X-rays, U/S, labs)? Why? @ -None What meds were considered but not given or refused? Why? @ -None Did you discuss the management of the patient with other professionals (professionals i.e. ROBERT Zelaya, [employer], lab, RT, psych nurse, social service coordinator, diesel engineer, teacher, consumer loan officer, caseworker protective services)? Give summary @ -Spoke with Dr. Gee Was smoking cessation discussed for >3mins.? @ -No Was critical care preformed (if so, how long)? @ -No Were there social determinants of health that impacted care today? How? (Homelessness, low income, unemployed, alcoholism, drug addiction, transportation, low edu. Level, literacy, decrease access to med. care, [facility], rehab)? @ -No Was there de-escalation of care discussed even if they declined (Discuss DNR or withdrawal of care, Hospice)? DNR status @ -No What co-morbidities impacted this encounter? (DM, HTN, Smoking, COPD, CAD, Cancer, CVA, ARF, Chemo, Hep., AIDS, mental health diagnosis, sleep apnea, morbid obesity)? @ -Coronary artery disease with CABG Was patient admitted / discharged? Hospital course, mention meds given and route, prescriptions, significant lab abnormalities, going to OR and other pertinent info. @ -On arrival patient was seen and evaluated in room 15. Thorough history and physical exam was performed. IV was established. Laboratory studies are conducted. Chest x-ray was performed. Patient does have an elevated Trop. Recommended admission in order to trend his troponins for which the patient was agreeable to. I will continue the patient's Eliquis. Patient agreeable this plan and admitted to the floor in stable condition Undiagnosed new problem with uncertain prognosis? @ -No Drug Therapy requiring intensive monitoring for toxicity (Heparin, Nitro, Insulin, Cardizem)? @ -No Were any procedures done? @ -No Diagnosis/symptom? @ -Acute chest pain, elevated troponin, history of CABG Acute, or Chronic, or Acute on Chronic? @ -Acute on chronic Uncomplicated (without systemic symptoms) or Complicated (systemic symptoms)? @ -Complicated Side effects of treatment? @ -No Exacerbation, Progression, or Severe Exacerbation? @ -Yes Poses a threat to life or bodily function? How? (Chest pain, [place], [place], pneumonia, PE, COPD, DKA, ARF, appy, cholecystitis, CVA, Diverticulitis, Homicidal, Suicidal, threat to staff... and all critical care pts) @ -Yes as patient does have an elevated troponin (Ava Field) Disposition <Adams Luis - Last Filed: 02/26/24 22:26> Is patient prescribed a controlled substance at d/c from ED?: No Time of Disposition: 02:11 Decision to Admit Reason: Admit from EC Decision Date: 02/27/24 Decision Time: 02:11 <Ava Field - Last Filed: 03/01/24 23:33> Clinical Impression: Elevated troponin, Chest pain Disposition: LEFT AGAINST MEDICAL ADVICE Condition: Stable Referrals: Alexx Gee MD [Primary Care Provider] - 1-2 days
[2024-02-26 22:39] LABS: Anisocytosis Slight; Basophils # (A) 0.1 k/uL (0-0.2); Basophils % (A) 1 %; Eosinophils # (A) 0.1 k/uL (0-0.7); Eosinophils % (A) 1 %; HCT 40.1 % (39.0-53.0); HGB 12.4 gm/dL (13.0-17.5); Hypochromasia Slight; Lymphocytes # (A) 1.6 k/uL (1.0-4.8); Lymphocytes % (A) 25 %; MCH 26.4 pg (25.0-35.0); MCHC 30.8 g/dL (31.0-37.0); MCV 85.7 fL (80.0-100.0); Mean Platelet Volume 9.8; Microcytosis Slight; Monocytes # (A) 0.6 k/uL (0-1.0); Monocytes % (A) 9 %; Neutrophils # (A) 3.9 k/uL (1.3-7.7); Neutrophils % (A) 61 %; Platelet Count 149 k/uL (150-450); RBC 4.68 m/uL (4.30-5.90); WBC 6.4 k/uL (3.8-10.6)
[2024-02-26 22:48] LABS: ALT 15 U/L (4-49); AST 72 U/L (17-59); African American GFR (CKD) 85 (>60 ml/min/1.73 sqM); Albumin 4.9 g/dL (3.5-5.0); Alkaline Phosphatase 126 U/L (38-126); Anion Gap 11 mmol/L; Blood Urea Nitrogen 18 mg/dL (9-20); Calcium 9.1 mg/dL (8.4-10.2); Carbon Dioxide 26 mmol/L (22-30); Chloride 100 mmol/L (98-107); Glucose 114 mg/dL (74-99); Magnesium 1.9 mg/dL (1.6-2.3); Non-African American GFR(CKD) 73 (>60 ml/min/1.73 sqM); Sodium 137 mmol/L (137-145); Total Bilirubin 1.8 mg/dL (0.2-1.3); Total Protein 9.3 g/dL (6.3-8.2)
[2024-02-26 23:14] LABS: Partial Thromboplastin Time 27.4 sec (22.0-30.0); Prothrombin Time 10.9 sec (10.0-12.5)
--- NOTE | 2024-02-26 23:24 | XR ---
EXAM: XR Chest, 2 Views CLINICAL HISTORY: ITS.REASON XR Reason: Chest Pain TECHNIQUE: Frontal and lateral views of the chest. COMPARISON: 02/07/24 FINDINGS: Lungs: Right basilar airspace disease, atelectasis or infiltrate. Left lung appears clear. Pleural space: Small right pleural effusion, similar to prior. Trace left pleural effusion. Heart: Stable heart size. Bones/joints: No acute fracture. No dislocation. IMPRESSION: 1. Right basilar airspace disease, atelectasis or infiltrate. 2. Small right pleural effusion, similar to prior. 3. Trace left pleural effusion.
[2024-02-26 23:29] LABS: Potassium 5.7 mmol/L (3.5-5.1)
[2024-02-27] MEDS: ASPIRIN 81 MG PO STA (01:39)
[2024-02-27] MEDS ORDERED: NALOXONE 0.4 MG/ML 1 ML VIAL IV PRN (02:11)
[2024-02-27] MEDS: APIXABAN 5 MG TAB PO STA (02:29)
[2024-02-27] MEDS: MORPHINE SULFATE 4 MG/ML SYRINGE IVP STA ×2 (02:30→04:14)
[2024-02-27 04:24] VITALS: BP 126/76; PULSE 71; RESP 20; TEMP 98
[2024-02-27] MEDS ORDERED: APIXABAN 2.5 MG TABLET PO SCH (09:00)
--- NOTE | 2024-02-27 23:54 | DS ---
DISCHARGE SUMMARY CHIEF COMPLAINT: Chest pain. HISTORY OF PRESENT ILLNESS AND PHYSICAL EXAM: Details of this man's history and physical can be found in the initial workup. LABORATORY STUDIES: While he was in the hospital, he had laboratory studies, details of which can be found in the laboratory section of his chart. COURSE IN THE HOSPITAL: After admission, he was placed on bedrest, started on intravenous fluids and heparin and he was to be seen by Cardiology. Serial enzymes and EKGs were planned. Shortly after admission, he signed out AMA. FINAL DIAGNOSES: 1. Non ST segment elevation myocardial infarction. 2. Advanced coronary artery disease, status post coronary artery bypass graft. 3. Recent myocardial infarction and heart disease. 4. Chronic congestive heart failure. 5. Atherosclerotic cardiomyopathy. 6. Cardiac arrhythmia. 7. Chronic obstructive pulmonary disease. 8. Chronic kidney disease. OPERATIONS: None. CONSULTATIONS: None. He left AMA. MMDEYANIRA / NATHALYN: [id number] /
--- NOTE | 2024-02-28 06:18 | HP ---
HISTORY AND PHYSICAL CHIEF COMPLAINT: Chest pain. HISTORY OF PRESENT ILLNESS: Another admission for this 68-year-old white male with severe coronary artery disease. He has had a prior CABG. He has had numerous admissions to the hospital for chest pain, congestive heart failure, and renal failure. He recently was considered as a possible candidate for another CABG and was being evaluated by Cardiac Surgery when he signed out against medical advice. Since then, he has had intermittent problems with unstable angina and heart failure. He came to the emergency room at this time with chest pain once again and elevated troponin. REVIEW OF SYSTEMS: He has had no other new symptoms. He still get short of breath with exertion. He has had no syncope or palpitations. He has had no nausea or vomiting. Past medical history, family history, personal and social history are all otherwise unchanged from his recent admitting and discharge summaries. It is never certain that he is taking all of the medicines that he should be on. PHYSICAL EXAMINATION: VITAL SIGNS: Blood pressure is 126/75 with a pulse of 83, respirations of 29. He is afebrile. GENERAL: Appeared to be well developed, well nourished, and in no acute distress. Skin color is normal. Skin is warm, dry. LYMPHATICS: Lymph nodes are not enlarged. HEENT: Head, ears, eyes, nose, mouth and throat were normal. NECK: Veins not distended. Thyroid not enlarged. CHEST: Demonstrates scattered rales and occasional wheezing. CARDIAC: Demonstrates what sounds like atrial fibrillation. ABDOMEN: Soft and nontender. EXTREMITIES: Normal. IMPRESSION: 1. Acute coronary syndrome. 2. Possible recurrence non-ST elevated myocardial infarction. 3. Coronary artery disease. 4. Status post coronary artery bypass graft. 5. Atherosclerotic cardiomyopathy. 6. Chronic congestive heart failure. 7. Chronic kidney disease. 8. Chronic obstructive pulmonary disease. PLAN: 1. Bed rest. 2. IV fluids. 3. Serial EKGs and enzymes. 4. Consult Cardiology. MMODL / IJN: [id number] /
== END 2024-02-27 07:30 | disposition left against medical advice (07) ==
LOC: EC 22:12 → 2CATHESU 02-27 02:13 → UNDOADMOB 02-27 02:13 → 2CATHESU 02-27 02:32 → 1SOBS 02-27 02:32 → 3NCARDOBS 02-27 03:04 → 1SOBS 02-27 03:04 → 3SCARD 02-27 05:33 → 3NCARDOBS 02-27 05:33 → EC 02-27 07:30 → UNDODISOB 02-27 07:31
DX: R07.89 Other chest pain (principal); R79.89 Other specified abnormal findings of blood chemistry; Z53.29 Procedure and treatment not carried out because of patient's decision for other reasons; I49.9 Cardiac arrhythmia, unspecified; I25.10 Atherosclerotic heart disease of native coronary artery without angina pectoris; N18.9 Chronic kidney disease, unspecified; I50.9 Heart failure, unspecified; Z79.02 Long term (current) use of antithrombotics/antiplatelets; Z79.84 Long term (current) use of oral hypoglycemic drugs; Z79.82 Long term (current) use of aspirin; Z79.01 Long term (current) use of anticoagulants; Z79.899 Other long term (current) drug therapy; Z98.890 Other specified postprocedural states; Z88.8 Allergy status to other drugs, medicaments and biological substances; Z91.040 Latex allergy status; I25.2 Old myocardial infarction; Z95.1 Presence of aortocoronary bypass graft; Z95.5 Presence of coronary angioplasty implant and graft
CPT/HCPCS: 96376; 96374; 99285; 36415 ×2; 93005; 80053; 83735; 84484 ×2; 85025; 85610; 85730; 71046; G0378; J2270

== ENCOUNTER 2024-04-06 19:09 | Emergency (ER) | payer MEDICARE, OTHER ==
[2024-04-06 19:20] VITALS: TEMP 98.3
[2024-04-06] MEDS: NITROGLYCERIN SL TABS 0.4 MG TAB SUBLINGUAL PRN (19:43)
[2024-04-06 19:49] LABS: Anisocytosis Slight; Basophils % (A) 1 %; Eosinophils # (A) 0.1 k/uL (0-0.7); Eosinophils % (A) 3 %; HGB 12.4 gm/dL (13.0-17.5); Hypochromasia Moderate; Lymphocytes # (A) 1.6 k/uL (1.0-4.8); Lymphocytes % (A) 33 %; MCH 27.1 pg (25.0-35.0); MCHC 30.1 g/dL (31.0-37.0); MCV 89.9 fL (80.0-100.0); Mean Platelet Volume 11.3; Monocytes # (A) 0.4 k/uL (0-1.0); Monocytes % (A) 8 %; Neutrophils # (A) 2.7 k/uL (1.3-7.7); Neutrophils % (A) 54 %; Platelet Count 115 k/uL (150-450); RBC 4.56 m/uL (4.30-5.90); RDW 18.5 % (11.5-15.5)
[2024-04-06 19:59] LABS: ALT 14 U/L (4-49); AST 40 U/L (17-59); African American GFR (CKD) 88 (>60 ml/min/1.73 sqM); Albumin 4.3 g/dL (3.5-5.0); Alkaline Phosphatase 149 U/L (38-126); Anion Gap 6 mmol/L; Blood Urea Nitrogen 14 mg/dL (9-20); Calcium 8.7 mg/dL (8.4-10.2); Carbon Dioxide 20 mmol/L (22-30); Chloride 111 mmol/L (98-107); Glucose 80 mg/dL (74-99); Lipase 91 U/L (23-300); Magnesium 1.8 mg/dL (1.6-2.3); Non-African American GFR(CKD) 76 (>60 ml/min/1.73 sqM); Sodium 137 mmol/L (137-145); Total Bilirubin 1.3 mg/dL (0.2-1.3)
[2024-04-06] MEDS: MORPHINE SULFATE 4 MG/ML SYRINGE IVP STA (20:02)
[2024-04-06 20:03] VITALS: RESP 19
[2024-04-06 20:08] LABS: NT-Pro-B-Type Natriuretic Pept 5170 pg/mL
[2024-04-06 20:18] LABS: Potassium 4.9 mmol/L (3.5-5.1)
[2024-04-06 20:23] LABS: Partial Thromboplastin Time 22.2 sec (22.0-30.0); Prothrombin Time 10.8 sec (10.0-12.5)
[2024-04-06 20:35] VITALS: BP 110/66; PULSE 84
[2024-04-06] MEDS: NITROGLYCERIN OINT 1 INCH/GM PACKET TOPICAL STA (20:59)
[2024-04-06] MEDS ORDERED: ASPIRIN 81 MG PO STA (21:01)
[2024-04-06] MEDS ORDERED: HEPARIN SODIUM 1,000 UN/ML (10ML VL) IV ONE (21:07)
[2024-04-06] MEDS ORDERED: HEPARIN SODIUM 1,000 UN/ML (10ML VL) IV PRN (21:07)
--- NOTE | 2024-04-06 21:09 | ED ---
Chest Pain HPI - General Chief Complaint: Chest Pain Stated Complaint: Chest Pain, MICKIE Time Seen by Provider: 04/06/24 19:22 Source: patient Mode of arrival: ambulatory Limitations: no limitations - History of Present Illness Initial Comments: 69-year-old male with history of CAD, COPD, heart failure, hyperlipidemia, hypertension presenting with chief complaint of chest pain. This pain is a pressure like sensation in the center of his chest. Started at around 1 PM. He took 2 aspirin at home which did not alleviate the pain. He admits to shortness of breath and lower extremity swelling. He denies nausea, vomiting, diarrhea. No cough or fever. He also admits to back pain. - Related Data Home Medications Medication Instructions Recorded Confirmed HYDROcodone/APAP 10-325MG [[place] 1 tab PO QID PRN 02/22/15 02/27/24 10-325] rOPINIRole HCL [Requip] 0.25 mg PO HS 09/29/17 02/27/24 Fluticasone Nas[place] [Flonase 1 spray EA NOSTRIL BID PRN 01/27/23 02/27/24 Nasal [place]] ALPRAZolam [Xanax] 2 mg PO TID PRN 03/15/23 02/27/24 Clopidogrel [Plavix] 75 mg PO DAILY 08/21/23 02/27/24 Cyclobenzaprine [Flexeril] 10 mg PO TID PRN 08/21/23 02/27/24 Isosorbide Mononitrate ER [Imdur] 30 mg PO DAILY 08/21/23 02/27/24 Omeprazole [PriLOSEC] 20 mg PO AC-BID 08/21/23 02/27/24 allopurinoL [Zyloprim] 100 mg PO DAILY 08/21/23 02/27/24 amLODIPine [Norvasc] 2.5 mg PO DAILY 08/21/23 02/27/24 lisinopriL [Zestril] 2.5 mg PO DAILY 08/21/23 02/27/24 Lidocaine 5% Patch [Lidoderm 5% 1 patch TRANSDERM DAILY 11/24/23 02/27/24 Patch] Albuterol Inhaler [Ventolin Hfa 1 - 2 puff INHALATION RT-Q6H PRN 12/22/23 02/27/24 Inhaler] Nitroglycerin Sl Tabs [Nitrostat] 0.4 mg SL Q5M PRN 01/13/24 02/27/24 Potassium Chloride [Klor-Con M20] 20 meq PO DAILY 02/27/24 02/27/24 Previous Rx's Medication Instructions Recorded Apixaban [Eliquis] 2.5 mg PO BID #60 tab 11/18/22 Ezetimibe [Zetia] 10 mg PO DAILY #90 tab 11/18/22 Fenofibrate [Lofibra] 160 mg PO DAILY #30 tab 12/01/22 Metoprolol Succinate (ER) [Toprol 50 mg PO DAILY #30 tab 02/01/23 XL] Aspirin 81 mg PO DAILY #100 tab 12/24/23 Dapagliflozin Propanediol [Farxiga] 5 mg PO DAILY #30 tab 12/24/23 Epoetin [place] [Procrit] 4,000 unit SUBDERMAL WEEKLY #10 01/25/24 each Ferrous Sulfate [Iron (65 MG 325 mg PO TID-W/MEALS #100 tab 01/25/24 Elemental)] Furosemide [Lasix] 40 mg PO DAILY #100 tab 01/25/24 Sodium Bicarbonate Tab 650 mg PO TID #100 tab 01/25/24 Allergies Allergy/AdvReac Type Severity Reaction Status Date / Time latex Allergy Swelling Verified 04/06/24 19:15 atorvastatin [From Lipitor] AdvReac JOINT PAIN Verified 04/06/24 19:15 Review of Systems ROS Statement: Those systems with pertinent positive or pertinent negative responses have been documented in the HPI. ROS Other: All systems not noted in ROS Statement are negative. Past Medical History Past Medical History: Coronary Artery Disease (CAD), Chest Pain / Angina, Heart Failure, COPD, GERD/Reflux, Hyperlipidemia, Hypertension, Myocardial Infarction (NC), Osteoarthritis (OA), Sleep Apnea/CPAP/BIPAP Additional Past Medical History / Comment(s): hiatal hernia, chronic back pain, L foot drop, numbness/tingling bilateral legs, HUSAM without device, states stents x7 Last Myocardial Infarction Date:: 11/11/22 History of Any Multi-Drug Resistant Organisms: None Reported Past Surgical History: Back Surgery, Cholecystectomy, Coronary Bypass/CABG, Hea rt Catheterization With Stent, Orthopedic Surgery Additional Past Surgical History / Comment(s): Back surg x 2 with cage. L tennis elbow surg. HEART STENTS X7. Colonoscopy. Lasik eye surgery bilaterally. Emergency Cabg [facility] Past Anesthesia/Blood Transfusion Reactions: No Reported Reaction Additional Past Anesthesia/Blood Transfusion Reaction / Comment(s): Pt received blood during CABG without reaction. Date of Last Stent Placement:: Oct 2022 Past Psychological History: Anxiety, Depression, PTSD Smoking Status: Current every day smoker Past Alcohol Use History: None Reported Past Drug Use History: None Reported - Past Family History Father Family Medical History: Coronary Artery Disease (CAD), Deep Vein Thrombosis (DVT), GERD/Reflux, Hyperlipidemia Additional Family Medical History / Comment(s): Father of a NC in his 80's Mother Family Medical History: Coronary Artery Disease (CAD) Additional Family Medical History / Comment(s): Mother of a NC at the age of 76yrs. Sister(s) Family Medical History: Cancer Additional Family Medical History / Comment(s): Lung cancer. General Exam Limitations: no limitations General appearance: alert, in no apparent distress Head exam: Present: atraumatic, normocephalic Eye exam: Present: normal appearance, EOMI Neck exam: Present: normal inspection Respiratory exam: Present: normal lung sounds bilaterally. Absent: respiratory distress, wheezes, rales, rhonchi, stridor Cardiovascular Exam: Present: regular rate, normal rhythm, normal heart sounds. Absent: systolic murmur, diastolic murmur, rubs, gallop, clicks Extremities exam: Present: pedal edema Neurological exam: Present: alert, oriented X3 Psychiatric exam: Present: normal affect, normal mood Skin exam: Present: normal color Course Vital Signs 04/06/24 04/06/24 04/06/24 19:15 19:45 20:33 Temperature 98.3 F Pulse Rate 92 86 84 Respiratory 20 19 19 Rate Blood Pressure 126/72 117/72 110/66 O2 Sat by Pulse 97 97 Oximetry Chest Pain [facility] E[facility] shows sinus rhythm ventricular rate 91. RI interval 135. QRS 106. QT 371. QTc 420. Was pt. sent in by a medical professional or institution (, PA, INTEGRATION PROJECT MANAGER, urgent care, hospital, or senior care...) When possible be specific @ -No Did you speak to anyone other than the patient for history (EMS, parent, family, police, friend...)? What history was obtained from this source @ -No Did you review nursing and triage notes (agree or disagree)? Why? @ -I reviewed and agree with nursing and triage notes Were old charts reviewed (outside hosp., previous admission, EMS record, old EKG, old radiological studies, urgent care reports/EKG's, senior care records)? Report findings @ -Reviewed previous visits Differential Diagnosis (chest pain, altered mental status, abdominal pain women, abdominal pain men, vaginal bleeding, weakness, fever, dyspnea, syncope, headache, dizziness, GI bleed, back pain, seizure, CVA, palpatations, mental health, musculoskeletal)? @ -[facility] Differential Chest Pain: Stable Angina, Unstable Angina, STEMI, NSTEMI Aortic Dissection, Pneumothorax, Musculoskeletal, Esophageal Spasm GERD, Cholecystitis, Pancreatitis, Zoster This is not meant to be an all-inclusive list. EKG interpreted by me (3pts min.). @ -As above X-rays interpreted by me (1pt min.). @ -Chest x-ray shows cardiomegaly with postoperative changes. Mildly increased central vascular congestion. Larger right pleural effusion, now moderate in size. Adjacent opacities could represent atelectasis and/or infiltrate. Correlate for CHF versus pneumonia. CT interpreted by me (1pt min.). @ -None done U/S interpreted by me (1pt. min.). @ -None done What testing was considered but not performed or refused? (CT, X-rays, U/S, labs)? Why? @ -None What meds were considered but not given or refused? Why? @ -Heparin was ordered, however the patient signed out AGAINST MEDICAL ADVICE Did you discuss the management of the patient with other professionals (professionals i.e. , PA, INTEGRATION PROJECT MANAGER, lab, RT, psych nurse, outreach and education social worker, battery assembler, teacher, supply officer, transplant case manager)? Give summary @ -No Was smoking cessation discussed for >3mins.? @ -No Was critical care preformed (if so, how long)? @ -No Were there social determinants of health that impacted care today? How? (Homelessness, low income, unemployed, alcoholism, drug addiction, transportation, low edu. Level, literacy, decrease access to med. care, snf, rehab)? @ -No Was there de-escalation of care discussed even if they declined (Discuss DNR or withdrawal of care, Hospice)? DNR status @ -No What co-morbidities impacted this encounter? (DM, HTN, Smoking, COPD, CAD, Cancer, CVA, ARF, Chemo, Hep., AIDS, mental health diagnosis, sleep apnea, morbid obesity)? @ -CAD, hypertension, hyperlipidemia Was patient admitted / discharged? Hospital course, mention meds given and route, prescriptions, significant lab abnormalities, going to OR and other pertinent info. @ -69-year-old male presenting with chief complaint of chest pain. Pain started this afternoon. History and physical exam are conducted. EKG showed no significant change from previous. patient is found to have a troponin of 0.136, he has had previous elevated troponins however this is higher than his previous value of 0.045. Patient was given nitroglycerin sublingual tablets and an inch of Nitropaste for his pain as well as 4 mg of morphine. Patient was to be started on heparin and admitted. Patient refused stating "I just do not like hospitals". Myself as well as the nursing staff had multiple conversations with the patient regarding this matter and urging him to stay for further treatment and evaluation. His results and prognosis were explained to him. I emphasized that by leaving AGAINST MEDICAL ADVICE he may or suffer from permanent injury. Patient conveys his verbal understanding. Continues to refuse admission and signed out AGAINST MEDICAL ADVICE. He is of sound mind and able to make his own decisions. My attending is Dr. Moon Undiagnosed new problem with uncertain prognosis? @ -No Drug Therapy requiring intensive monitoring for toxicity (Heparin, Nitro, Insulin, Cardizem)? @ -No Were any procedures done? @ -No Diagnosis/symptom? @ -Chest pain Acute, or Chronic, or Acute on Chronic? @ -Acute Uncomplicated (without systemic symptoms) or Complicated (systemic symptoms)? @ -Complicated Side effects of treatment? @ -No Exacerbation, Progression, or Severe Exacerbation? @ -No Poses a threat to life or bodily function? How? (Chest pain, [place], NC, pneumonia, PE, COPD, DKA, ARF, appy, cholecystitis, CVA, Diverticulitis, Homicidal, Suicidal, threat to staff... and all critical care pts) @ -Yes Disposition Clinical Impression: NSTEMI (non-ST elevated myocardial infarction) Disposition: LEFT AGAINST MEDICAL ADVICE Condition: Serious Instructions (If sedation given, give patient instructions): Chest Pain (ED) Is patient prescribed a controlled substance at d/c from ED?: No Referrals: Alexx Gee MD [Primary Care Provider] - 1-2 days Time of Disposition: 21:20
[2024-04-06] MEDS ORDERED: HEPARIN SOD,PORK IN 0.45% NACL 25,000 UNIT in 0.45% NACL 1 250ML.BAG IV SCH (21:15)
--- NOTE | 2024-04-06 21:58 | XR ---
EXAMINATION TYPE: XR chest 2V DATE OF EXAM: 04/06/2024 8:20 PM CLINICAL INDICATION:Male, 69 years old with history of Chest Pain; [facility] COMPARISON: 02/26/2024 TECHNIQUE: XR chest 2V. Frontal and lateral views of the chest.. FINDINGS: EKG leads overlie the chest. No indwelling lines are seen. Likely post-CABG changes. Tubular cylindrical-appearing structure projecting over the left upper medi astinal shadow of uncertain etiology, possibly extrinsic Cardiomediastinal silhouette is unchanged. Heart appears mildly enlarged. Interval increase in size of right basilar pleural/parenchymal opacity. There is mildly increased carloz tral vascular congestion. No sizable left effusion. No pneumothorax is evident. Osseous structures are grossly unchanged. IMPRESSION: 1. Cardiomegaly with postoperative changes. 2. Mildly increased central vascular congestion. 3. Larger right pleural effusion, now moderate in size. Adjacent opacities could represent atelectas is and/or infiltrate. Correlate for CHF versus pneumonia.
== END 2024-04-06 21:28 | disposition left against medical advice (07) ==
LOC: EC 19:09
DX: I21.4 Non-ST elevation (NSTEMI) myocardial infarction (principal); I25.10 Atherosclerotic heart disease of native coronary artery without angina pectoris; I10 Essential (primary) hypertension; E78.5 Hyperlipidemia, unspecified; F17.200 Nicotine dependence, unspecified, uncomplicated; Z53.29 Procedure and treatment not carried out because of patient's decision for other reasons; Z79.02 Long term (current) use of antithrombotics/antiplatelets; Z79.899 Other long term (current) drug therapy; Z91.040 Latex allergy status; Z88.8 Allergy status to other drugs, medicaments and biological substances
CPT/HCPCS: 99285; 96374; 36415; 93005; 83880; 80053; 83690; 83735; 84484; 85025; 85610; 85730; 71046; J2270

== ENCOUNTER 2024-04-24 22:31 | Inpatient (IN) | payer MEDICARE, OTHER ==
[2024-04-24] MEDS: NITROGLYCERIN SL TABS 0.4 MG TAB SUBLINGUAL STA (23:02)
[2024-04-24] MEDS: ASPIRIN 81 MG PO STA (23:02)
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
[2024-04-24 23:26] LABS: Anisocytosis Slight; Basophils % (A) 0 %; Eosinophils # (A) 0.1 k/uL (0-0.7); Eosinophils % (A) 1 %; HCT 33.5 % (39.0-53.0); HGB 10.3 gm/dL (13.0-17.5); Hypochromasia Marked; Lymphocytes # (A) 0.8 k/uL (1.0-4.8); Lymphocytes % (A) 16 %; MCH 27.2 pg (25.0-35.0); MCHC 30.9 g/dL (31.0-37.0); MCV 88.2 fL (80.0-100.0); Mean Platelet Volume 11.1; Monocytes # (A) 0.4 k/uL (0-1.0); Monocytes % (A) 8 %; Neutrophils # (A) 3.7 k/uL (1.3-7.7); Neutrophils % (A) 73 %; Platelet Count 134 k/uL (150-450); RDW 16.7 % (11.5-15.5); WBC 5.1 k/uL (3.8-10.6)
[2024-04-24 23:36] LABS: ALT 10 U/L (4-49); AST 20 U/L (17-59); African American GFR (CKD) >90 (>60 ml/min/1.73 sqM); Albumin 3.8 g/dL (3.5-5.0); Alkaline Phosphatase 113 U/L (38-126); Anion Gap 9 mmol/L; Blood Urea Nitrogen 11 mg/dL (9-20); Calcium 9.1 mg/dL (8.4-10.2); Carbon Dioxide 19 mmol/L (22-30); Chloride 106 mmol/L (98-107); Glucose 103 mg/dL (74-99); Magnesium 1.8 mg/dL (1.6-2.3); Non-African American GFR(CKD) 80 (>60 ml/min/1.73 sqM); Potassium 4.1 mmol/L (3.5-5.1); Sodium 134 mmol/L (137-145); Total Bilirubin 1.5 mg/dL (0.2-1.3); Total Protein 7.1 g/dL (6.3-8.2)
[2024-04-24 23:45] LABS: NT-Pro-B-Type Natriuretic Pept 5260 pg/mL
[2024-04-24] MEDS: IPRATROPIUM-ALBUTEROL 3 ML NEB INHALATION STA (23:53)
[2024-04-25] MEDS: HYDROcodone/APAP 10-325MG 1 EACH TAB PO PRN (00:19)
[2024-04-25] MEDS ORDERED: NALOXONE 0.4 MG/ML 1 ML VIAL IV PRN (00:57)
[2024-04-25] MEDS ORDERED: ONDANSETRON 4 MG/2 ML VIAL IVP PRN (00:57)
[2024-04-25 01:09] LABS: Appearance,Urine Clear (Clear); Bilirubin,Urine Negative (Negative); Blood,Urine Negative (Negative); Color,Urine Light Yellow; Glucose,Urine (UA) Negative (Negative); Ketones,Urine Negative (Negative); Leukocyte Esterase,Urine Negative (Negative); Nitrite,Urine Negative (Negative); Protein,Urine Negative (Negative); Specific Gravity,Urine 1.014 (1.001-1.035)
[2024-04-25] MEDS: MORPHINE SULFATE 4 MG/ML SYRINGE IVP STA (01:15)
[2024-04-25] MEDS: NITROGLYCERIN OINT 1 INCH/GM PACKET TOPICAL SCH (01:15)
[2024-04-25 01:20] LABS: INR 1.1 (<1.2); Partial Thromboplastin Time 27.3 sec (22.0-30.0); Prothrombin Time 12.1 sec (10.0-12.5)
[2024-04-25] MEDS: FUROSEMIDE 10 MG/ML 4 ML VIAL IV STA (01:23)
[2024-04-25] MEDS: HEPARIN SODIUM 1,000 UN/ML (10ML VL) IV ONE (01:25)
[2024-04-25] MEDS: HEPARIN SOD,PORK IN 0.45% NACL 25,000 UNIT in 0.45% NACL 1 250ML.BAG IV SCH (01:26)
--- NOTE | 2024-04-25 01:58 | XR ---
EXAM: XR Chest, 2 Views CLINICAL HISTORY: ITS.REASON XR Reason: Chest Pain TECHNIQUE: Frontal and lateral views of the chest. COMPARISON: 04/06/2020 FINDINGS: Patient's body habitus and technical factors limits the exam. Cardiomegaly with postoperative changes. Interval increase in size of right pleural/parenchymal opacity. There is also increased in central vascular congestion. No sizable left pleural effusion. No acute osseous findings.. IMPRESSION: Moderately severe cardiomegaly, interval increase in mild/moderate pulmonary vascular congestion. Moderately large volume right pleural effusion with adjacent opacity, Correlate for a somewhat worsened CHF versus pneumonia. .
[2024-04-25] MEDS: MORPHINE SULFATE 2 MG/ML SYRINGE IVP STA (05:23)
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
[2024-04-25] MEDS: FUROSEMIDE 10 MG/ML 4 ML VIAL IV SCH (09:01)
[2024-04-25] MEDS ORDERED: NITROGLYCERIN SL TABS 0.4 MG TAB SUBLINGUAL PRN (13:13)
[2024-04-25] MEDS ORDERED: HYDROcodone/APAP 10-325MG 1 EACH TAB PO PRN (13:13)
[2024-04-25] MEDS: GABAPENTIN 100 MG CAP PO SCH (14:07)
[2024-04-25] MEDS: NICOTINE 21MG/24HR PATCH TRANSDERM SCH (16:04)
[2024-04-25] MEDS: SODIUM BICARBONATE TAB 650 MG TAB PO SCH (16:04)
[2024-04-25] MEDS: FERROUS SULFATE 325 MG TAB PO SCH (16:05)
[2024-04-25] MEDS: PANTOPRAZOLE 40 MG TABLET PO SCH (16:05)
[2024-04-25] MEDS: MORPHINE SULFATE 2 MG/ML SYRINGE IVP PRN (16:05)
[2024-04-25] MEDS: APIXABAN 5 MG TAB PO SCH (17:37)
--- NOTE | 2024-04-25 17:54 | CA ---
Transthoracic Echo Report Name: Israel Simmons Age: 69 Gender: M : 1955 Exam Date: 04/25/2024 15:58 Exam Location: [place] [facility] Ht (in): 69 Wt (lb): 220 Ordering Physician: Roberto Iniguez MD Attending/Referring Phys: Track Broom Operator Emilie Stuart RDCS Procedure CPT: Indications: nstemi, chf Cardiac Hx: Technical Quality: Technically difficult study Contrast 1: Definity Total Dose (mL): 2 Contrast 2: Total Dose (mL): MEASUREMENTS (Male / Female) Normal Values 2D ECHO LV Diastolic Volume MOD BP 226.0 cm??? 67 - 155 / 56 - 104 cm??? LV Systolic Volume MOD BP 160.0 cm??? 22 - 58 / 19 - 49 cm??? LV Ejection Fraction MOD BP 29.2 % >= 55 % LV Cardiac Index MOD BP 2243.3 cm???/min???m??? LV Diastolic Volume MOD 4C 215.0 cm??? LV Systolic Volume MOD 4C 164.0 cm??? LV Ejection Fraction MOD 4C 23.7 % LV Cardiac Index MOD 4C 1733.4 cm???/min???m??? LV Diastolic Length 4C 9.5 cm LV Systolic Length 4C 8.9 cm LV Cardiac Index 4C AL 1704.1 cm???/min???m??? LV Diastolic Volume MOD 2C 231.0 cm??? LV Systolic Volume MOD 2C 155.0 cm??? LV Ejection Fraction MOD 2C 32.9 % LV Cardiac Index MOD 2C 2583.1 cm???/min???m??? LV Diastolic Length 2C 9.7 cm LV Systolic Length 2C 8.9 cm LV Cardiac Index 2C AL 2576.8 cm???/min???m??? FINDINGS Left Ventricle Left ventricular ejection fraction is estimated at 20-25 %. Severely increased left ventricular diastolic volume. Severely increased left ventricular systolic volume. Severely decreased left ventricular ejection fraction. No evidence of LV thrombus on contrast image Right Ventricle Right ventricular dilatation with mild to moderately reduced function. Right Atrium Right atrial dilatation. Left Atrium Left atrial dilatation. Mitral Valve Mitral valve thickened. No evidence for mitral valve prolapse. No mitral stenosis. Moderate mitral regurgitation. Aortic Valve Trileaflet aortic valve. Aortic valve sclerosis. No aortic stenosis. No aortic regurgitation. Tricuspid Valve Structurally normal tricuspid valve. No tricuspid stenosis. Mild to moderate tricuspid regurgitation. Pulmonic Valve Pulmonic valve not well visualized. Pericardium No pericardial effusion. Aorta Aortic root and proximal ascending aorta not well visualized. CONCLUSIONS LVEF 20 to 25% Severely dilated LV cavity size Severely reduced global LV systolic function. Apical, periapical hypokinesia RV appears dilated with moderately reduced systolic function Moderate mitral regurgitation. Mild to moderate tricuspid regurgitation. Previewed by: Dr Jose J Pérez (Electronically Signed) Final Date: 25 April 2024 17:53
[2024-04-25] MEDS: ALPRAZolam 1 MG TAB PO PRN (23:15)
[2024-04-26 00:31] LABS: Glucose,Whole Blood 118 mg/dL (70-110)
[2024-04-26] MEDS: METOPROLOL SUCCINATE (ER) 50 MG TAB.ER.24H PO SCH (08:27)
[2024-04-26] MEDS: POTASSIUM CHLORIDE ER 20 MEQ TAB.ER PO SCH (08:27)
[2024-04-26] MEDS: ASPIRIN 81 MG PO SCH (08:27)
[2024-04-26] MEDS: allopurinoL 100 MG TAB PO SCH (08:27)
[2024-04-26] MEDS: FENOFIBRATE 160 MG TAB PO SCH (08:27)
[2024-04-26] MEDS: DAPAGLIFLOZIN PROPANEDIOL 5 MG TABLET PO SCH (08:27)
[2024-04-26] MEDS: CYCLOBENZAPRINE 10 MG TAB PO PRN (08:27)
[2024-04-26] MEDS: ISOSORBIDE DINITRATE 10 MG TAB PO SCH (08:27)
[2024-04-26] MEDS: CLOPIDOGREL 75 MG TAB PO SCH (08:27)
[2024-04-26] MEDS: EZETIMIBE 10 MG TAB PO SCH (08:28)
[2024-04-26] MEDS: FUROSEMIDE 40 MG TAB PO SCH (08:32)
[2024-04-26 08:51] LABS: ALT 8 U/L (4-49); AST 20 U/L (17-59); African American GFR (CKD) 78 (>60 ml/min/1.73 sqM); Albumin 3.7 g/dL (3.5-5.0); Alkaline Phosphatase 118 U/L (38-126); Anion Gap 6 mmol/L; Blood Urea Nitrogen 13 mg/dL (9-20); Calcium 8.9 mg/dL (8.4-10.2); Carbon Dioxide 29 mmol/L (22-30); Chloride 101 mmol/L (98-107); Glucose 96 mg/dL (74-99); Non-African American GFR(CKD) 68 (>60 ml/min/1.73 sqM); Potassium 3.7 mmol/L (3.5-5.1); Sodium 136 mmol/L (137-145); Total Bilirubin 1.9 mg/dL (0.2-1.3)
[2024-04-26 09:02] LABS: INR 1.1 (<1.2); Partial Thromboplastin Time 39.1 sec (22.0-30.0); Prothrombin Time 12.1 sec (10.0-12.5)
[2024-04-26 09:03] LABS: Anisocytosis Slight; Basophils % (A) 0 %; Eosinophils # (A) 0.1 k/uL (0-0.7); Eosinophils % (A) 1 %; HGB 10.8 gm/dL (13.0-17.5); Hypochromasia Marked; Lymphocytes # (A) 1.3 k/uL (1.0-4.8); Lymphocytes % (A) 20 %; MCH 27.3 pg (25.0-35.0); MCHC 30.8 g/dL (31.0-37.0); MCV 88.8 fL (80.0-100.0); Mean Platelet Volume 10.1; Monocytes # (A) 0.5 k/uL (0-1.0); Monocytes % (A) 8 %; Neutrophils # (A) 4.4 k/uL (1.3-7.7); Neutrophils % (A) 69 %; Platelet Count 146 k/uL (150-450); RBC 3.94 m/uL (4.30-5.90); RDW 16.8 % (11.5-15.5); WBC 6.5 k/uL (3.8-10.6)
[2024-04-26] MEDS: BENZOCAINE SPRAY 1 CAN TOPICAL ONE (10:09)
[2024-04-26] MEDS: MIDAZOLAM 2 MG/2 ML VIAL IVP ONE (10:15)
[2024-04-26] MEDS: fentaNYL (PF) 50 MCG/ML 2 ML AMP IVP ONE (10:15)
[2024-04-26] MEDS: fentaNYL (PF) 50 MCG/ML 2 ML AMP ONE (10:58)
[2024-04-26] MEDS: HEPARIN SODIUM 1,000 UN/ML (10ML VL) IV PRN (17:38)
--- NOTE | 2024-04-26 20:54 | P.TEE ---
Description of Procedure(s): Procedure performed: Transesophageal Echocardiogram with color flow doppler, pulsed wave doppler and continuous wave doppler, moderate conscious sedation Moderate conscious sedation: Moderate conscious sedation was supplied with direct supervision of myself using Versed and Fentanyl. Complications: none Indications: need for bypass and further valvular assessment PROCEDURE: After the risks, benefits and alternatives of the above mentioned procedure was explained in detail with the patient, informed consent was obtained. Patient was brought to the lab in a fasting state. Patient was given IV Versed and Fentanyl for sedation. The throat was sprayed with Hurricane to anesthetize the throat. A lubricated Omni probe was then introduced into the esophagus and stomach and multiple views were obtained. 2D echo with color flow doppler, pulsed wave doppler and continuous wave doppler was utilized. Agitated saline bubbles were injected to assess for any intra-atrial shunt. The probe was then removed. Patient tolerated the procedure well. Patient was transferred to the post procedure area in stable and satisfactory condition. FINDINGS: 1. The aortic valve is tricuspid and normal function with no aortic stenosis and mild aortic regurgitation 2. The mitral valve appears be normal with mild regurgitation. 3. Tricuspid valve appears to be normal with mild to moderate tricuspid regurgitation. 4. The interatrial septum is intact. No evidence of PFO. 5. Left atrial appendage is free of clot. 6. Left ventricular ejection fraction 25-30%
[2024-04-26] MEDS: ALPRAZolam 1 MG TAB PO PRN (21:10)
[2024-04-27 13:26] VITALS: BP 88/51; TEMP 98.4
[2024-04-27 13:31] VITALS: RESP 16
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
[2024-04-27 15:22] VITALS: PULSE 68
--- NOTE | 2024-04-27 23:12 | HP ---
HISTORY AND PHYSICAL CHIEF COMPLAINT: Chest pain. HISTORY OF PRESENT ILLNESS: This is another admission for this 69-year-old white male, who has an extensive and chcf history of cardiovascular disease. He has had a previous CABG and he has been in and out of the hospital over the last several years with myocardial infarctions, acute coronary syndrome, acute on chronic congestive heart failure, etc. He also continued to be a smoker. He has been very noncompliant and at times has been aggressive toward staff and caregivers. He came back into the emergency room this time with chest pain once again and elevated troponin. He is being considered for 2nd CABG. He is in congestive heart failure with ejection fraction of around 20-25%. REVIEW OF SYSTEMS: At present time, he is pain-free and not short of breath. Past medical history, family history, and personal and social histories can all be found in detail in his previous hospitalization reports in admitting and MAR. PHYSICAL EXAMINATION: VITAL SIGNS: Normal. HEAD, EARS, EYES, NOSE, MOUTH, AND THROAT: Normal. Neck veins are not distended. CHEST: Demonstrates rales at the bases. CARDIAC: Demonstrates an S4. ABDOMEN: Soft and slightly protuberant. He is nontender and there is no visceromegaly. Bowel sounds present. EXTREMITIES: Normal. IMPRESSION: 1. Acute coronary syndrome. 2. NSTEMI. 3. Advanced coronary artery disease. 4. Previous CABG. 5. Reduced ejection fraction. 6. Chronic obstructive pulmonary disease. 7. Chronic kidney disease. 8. Depression. PLAN: 1. Bedrest. 2. IV fluids. 3. Serial EKGs and enzymes. 4. Refer back to Cardiology. MMODL / IJN: [id number] /
--- NOTE | 2024-04-28 02:43 | PN ---
PROGRESS NOTE DATE OF SERVICE: 04/26/2024 CHIEF COMPLAINT: NSTEMI and congestive heart failure. HISTORY OF PRESENT ILLNESS: This gentleman is doing well and he has not had any chest pain or shortness of breath. He awaits a decision from Cardiology and Cardiac Surgery as to whether or not he will be a candidate for CABG for the 2nd time. REVIEW OF SYSTEMS: He is comfortable and has no complaints. PHYSICAL EXAMINATION: CHEST: Clear. CARDIAC: Normal except for an S4. ABDOMEN: Soft, nontender. IMPRESSION: 1. Acute [id number] myocardial infarction. 2. Coronary artery disease. 3. Heart failure with reduced ejection fraction (20% to 25%). 4. Chronic obstructive pulmonary disease. 5. Chronic kidney disease. 6. Depression. PLAN: Await Cardiology's recommendation. MMODL / NATHALYN: [id number] /
--- NOTE | 2024-04-28 03:04 | DS ---
DISCHARGE SUMMARY CHIEF COMPLAINT: Chest pain, shortness of breath. HISTORY OF PRESENT ILLNESS AND PHYSICAL EXAMINATION: Details of this man's History and Physical can be found in the initial workup. LABORATORY STUDIES: While he is in the hospital, he had laboratory studies, details of which can be found in the laboratory section of his chart. COURSE IN THE HOSPITAL: After admission, he was placed on bedrest and started on intravenous fluids. He was seen by Cardiology. He underwent a KATJA once again, determination had to be made as to whether or not he would be a candidate for a second coronary artery bypass graft procedure. Cardiology indicated that he was not a candidate, and he could be discharged home on his usual activity, medications, and diet. He will be seen in several days. FINAL DIAGNOSES: 1. [id number] myocardial infarction. 2. Acute coronary syndrome. 3. Severe coronary artery disease. 4. Heart failure with reduced ejection fraction. 5. Chronic kidney disease. 6. Chronic obstructive pulmonary disease. 7. Depression. OPERATIONS: None. CONSULTATION: Cardiology. MMDEYANIRA / NATHALYN: [id number] /
== END 2024-04-27 15:22 | disposition home or self-care (01) | DRG 280 ==
LOC: EC 22:31 → 3SCARD 04-25 00:57
PROVIDERS: ADMIT Family Medicine; ATTEND Family Medicine
PROC: B24BZZ4 Ultrasonography of Heart with Aorta, Transesophageal (ICD-10-PCS; principal; 2024-04-26 10:15)
DX: I21.4 Non-ST elevation (NSTEMI) myocardial infarction (principal); I50.23 Acute on chronic systolic (congestive) heart failure; J96.21 Acute and chronic respiratory failure with hypoxia; I13.0 Hypertensive heart and chronic kidney disease with heart failure and stage 1 through stage 4 chronic kidney disease, or unspecified chronic kidney disease; T82.855A Stenosis of coronary artery stent, initial encounter; N18.9 Chronic kidney disease, unspecified; I25.10 Atherosclerotic heart disease of native coronary artery without angina pectoris; F32.A Depression, unspecified; K21.9 Gastro-esophageal reflux disease without esophagitis; E78.5 Hyperlipidemia, unspecified; G47.30 Sleep apnea, unspecified; M19.90 Unspecified osteoarthritis, unspecified site; I25.5 Ischemic cardiomyopathy; I35.1 Nonrheumatic aortic (valve) insufficiency; D63.1 Anemia in chronic kidney disease; J44.89 Other specified chronic obstructive pulmonary disease; F43.24 Adjustment disorder with disturbance of conduct; F43.10 Post-traumatic stress disorder, unspecified; F41.9 Anxiety disorder, unspecified; F17.200 Nicotine dependence, unspecified, uncomplicated; I25.2 Old myocardial infarction; Z99.81 Dependence on supplemental oxygen; Z95.1 Presence of aortocoronary bypass graft; Z91.199 Patient's noncompliance with other medical treatment and regimen due to unspecified reason; Z82.49 Family history of ischemic heart disease and other diseases of the circulatory system; Z79.899 Other long term (current) drug therapy; Z79.84 Long term (current) use of oral hypoglycemic drugs; Z79.82 Long term (current) use of aspirin; Z79.02 Long term (current) use of antithrombotics/antiplatelets; Z79.01 Long term (current) use of anticoagulants; Z91.040 Latex allergy status; Z88.8 Allergy status to other drugs, medicaments and biological substances
CPT/HCPCS: 36415; 71046; 80053; 81003; 83735; 83880; 84484; 85025; 85610; 85730; 87636; 93005; 93308; 93312; 93320; 93325; 94640; 96365; 96366; 96375; 96376; 99291

== ENCOUNTER → 2024-05-13 | Outpatient (CLI) | payer MEDICARE, OTHER ==
[2024-05-13 11:55] LABS: INR 1.1 (<1.2); Partial Thromboplastin Time 30.5 sec (22.0-30.0); Prothrombin Time 11.6 sec (10.0-12.5)
[2024-05-13 15:42] LABS: BUN/Creat Ratio 12.07 Ratio (12.00-20.00); Blood Urea Nitrogen 16.9 mg/dL (9.0-27.0); Chol/HDL Ratio 3.71 Ratio; Glucose 83 mg/dL (70-110); Hepatitis A Antibody IgM Nonreactive (Nonreactive); Hepatitis B Core IgM Nonreactive (Nonreactive); Hepatitis B Surface Antigen Nonreactive (Nonreactive); Hepatitis C IgG Antibody Nonreactive (Nonreactive); LDL Cholesterol,Calculated 52.4 mg/dL (0.0-131.0)
[2024-05-13 15:43] LABS: ALT 9 U/L (10-49); AST 24 U/L (14-35); Albumin 4.3 g/dL (3.8-4.9); Alkaline Phosphatase 145 U/L (41-126); Calcium 9.4 mg/dL (8.7-10.3); Carbon Dioxide 24.9 mmol/L (21.6-31.8); Chloride 100 mmol/L (96-109); Globulin 3.9 g/dL (1.6-3.3); Potassium 3.9 mmol/L (3.5-5.5); Sodium 139 mmol/L (135-145); Total Bilirubin 1.1 mg/dL (0.3-1.2); Total Protein 8.2 g/dL (6.2-8.2)
[2024-05-13 16:08] LABS: Appearance,Urine Clear (Clear); Bilirubin,Urine Negative (Negative); Blood,Urine Negative (Negative); Color,Urine Yellow (Yellow); Ketones,Urine Negative (Negative); Nitrite,Urine Negative (Negative); PH, Urine 7.5
[2024-05-13 16:58] LABS: HCT 39.6 % (39.6-50.0); HGB 11.7 g/dL (13.0-17.0); MCH 25.8 pg (27.0-32.0); MCHC 29.5 g/dL (32.0-37.0); MCV 87.2 FL (80.0-97.0); Mean Platelet Volume 12.5 FL (9.5-12.2); NRBC Per 100 WBC 0 X 10*3/uL (0.00-0.01); Platelet Count 208 X 10*3/uL (140-440); RBC 4.54 X 10*6/uL (4.40-5.60); RDW 16.7 % (11.5-14.5); WBC 5.36 X 10*3/uL (4.50-10.00)
== END ==
LOC: LABPAT 11:15
PROVIDERS: ATTEND Thoracic Surgery (Cardiothoracic Vascular Surgery)
DX: Z01.810 Encounter for preprocedural cardiovascular examination (principal)
CPT/HCPCS: 36415; 80053; 80061; 80074; 81003; 83036; 83735; 84443; 85027; 85610; 85730; 86850; 86900; 86901; 86920; 87070; 87086

== ENCOUNTER 2024-05-15 06:27 | Inpatient (IN) | payer MEDICARE, OTHER ==
[2024-05-15] MEDS: ATORVASTATIN 10 MG TAB PO ONE (07:24)
[2024-05-15] MEDS: ASPIRIN 325 MG TAB PO ONE (07:24)
[2024-05-15] MEDS: METOPROLOL TARTRATE 12.5 MG TAB PO ONE (07:25)
[2024-05-15] MEDS: IV FLUID CONTINUATION 1,000 ML IV ONE (07:57)
[2024-05-15] MEDS ORDERED: CALCIUM CHLORIDE 100 MG/ML 10 ML SYRINGE ONE (08:05)
[2024-05-15] MEDS ORDERED: PHENYLEPHRINE 10 MG/ML VIAL ONE (08:05)
[2024-05-15] MEDS ORDERED: GLYCOPYRROLATE 0.2 MG/ML 2 ML VIAL ONE (08:05)
[2024-05-15] MEDS ORDERED: ALBUMIN HUMAN 5% (25gm) 500 ML VIAL IVPB ONE (08:05)
[2024-05-15] MEDS ORDERED: SODIUM BICARB 8.4% 50 ML SYR (1 MEQ/ML) ONE (08:05)
[2024-05-15] MEDS ORDERED: HEPARIN SODIUM,PORCINE 5,000 UNIT/ML 1 ML VIAL ONE (08:05)
[2024-05-15] MEDS ORDERED: WATER FOR INJECTION, STERILE 10 ML VIAL IV ONE (08:05)
[2024-05-15] MEDS ORDERED: PROTAMINE SULFATE 10 MG/ML 25 ML VIAL IV ONE (08:05)
[2024-05-15] MEDS ORDERED: MIDAZOLAM HCL 10 MG/10 ML VIAL ONE (08:05)
[2024-05-15] MEDS ORDERED: ROCURONIUM 10 MG/ML (5 ML VIAL) IV ONE (08:05)
[2024-05-15] MEDS ORDERED: VECURONIUM 10 MG VIAL IV ONE (08:05)
[2024-05-15] MEDS ORDERED: ALBUTEROL HFA INHALER INHALATION ONE (08:05)
[2024-05-15] MEDS ORDERED: INSULIN REGULAR 100 UNIT/ML VIAL (IV) ONE (08:05)
[2024-05-15] MEDS ORDERED: fentaNYL (PF) 50 MCG/ML 50 ML VIAL ONE (08:05)
[2024-05-15] MEDS ORDERED: PROPOFOL 10 MG/ML 20 ML VIAL IV ONE (08:05)
[2024-05-15] MEDS ORDERED: HEPARIN SODIUM,PORCINE 10,000 UNIT/ML 1 ML VIAL ONE (08:05)
[2024-05-15] MEDS ORDERED: LIDOCAINE 2% SYG (PF) 100 MG/5 ML ONE (08:05)
[2024-05-15] MEDS ORDERED: ETOMIDATE 2 MG/ML 10 ML VIAL ONE (08:05)
[2024-05-15 09:25] LABS: ABG Base Excess -2.4 mmol/L; ABG Glucose Whole Blood 109 mg/dL (75-99); ABG HCO3 23 mmol/L (21-25); ABG Hematocrit 34 % (34.0-46.0); ABG Ionized Calcium 4.8 mg/dL (4.5-5.3); ABG Lactic Acid Whole Blood 1.5 mmol/L (0.5-1.6); ABG Oxygen Saturation 99.1 % (94-97); ABG PCO2 44 mmHg (35-45); ABG PH 7.34 (7.35-7.45); ABG PO2 296 mmHg (83-108); ABG Potassium Whole Blood 4.3 mmol/L (3.4-4.5); ABG Sodium Whole Blood 136 mmol/L (135-146); ABG TCO2 22 mmol/L (19-24)
[2024-05-15] MEDS: DILTIAZEM 125 MG in SODIUM CHLORIDE 0.9% 100 ML IV ONE (10:07)
[2024-05-15] MEDS: ceFAZolin 1,000 MG in SODIUM CHLORIDE 0.9% 1,000 ML IRRIGATION ONE (10:08)
[2024-05-15] MEDS: SODIUM CHLORIDE 0.9% 500 ML 500 ML with HEPARIN SODIUM,PORCINE (1 ML) 5,000 UNIT IV ONE (10:08)
[2024-05-15 10:15] LABS: ABG Base Excess -3.5 mmol/L; ABG Glucose Whole Blood 119 mg/dL (75-99); ABG HCO3 24 mmol/L (21-25); ABG Hematocrit 33 % (34.0-46.0); ABG Lactic Acid Whole Blood 1.8 mmol/L (0.5-1.6); ABG Oxygen Saturation 86.7 % (94-97); ABG PCO2 54 mmHg (35-45); ABG PH 7.26 (7.35-7.45); ABG PO2 63 mmHg (83-108); ABG Potassium Whole Blood 4.7 mmol/L (3.4-4.5); ABG Sodium Whole Blood 136 mmol/L (135-146); ABG TCO2 23 mmol/L (19-24)
[2024-05-15 11:36] LABS: ABG Base Excess -0.8 mmol/L; ABG Glucose Whole Blood 118 mg/dL (75-99); ABG HCO3 26 mmol/L (21-25); ABG Hematocrit 30 % (34.0-46.0); ABG Ionized Calcium 4.7 mg/dL (4.5-5.3); ABG Lactic Acid Whole Blood 1.4 mmol/L (0.5-1.6); ABG Oxygen Saturation 92.9 % (94-97); ABG PCO2 50 mmHg (35-45); ABG PH 7.32 (7.35-7.45); ABG PO2 74 mmHg (83-108); ABG Potassium Whole Blood 4.3 mmol/L (3.4-4.5); ABG Sodium Whole Blood 137 mmol/L (135-146); ABG TCO2 24 mmol/L (19-24)
[2024-05-15 12:27] LABS: ABG Base Excess -1.6 mmol/L; ABG Glucose Whole Blood 123 mg/dL (75-99); ABG HCO3 25 mmol/L (21-25); ABG Hematocrit 27 % (34.0-46.0); ABG Ionized Calcium 4.6 mg/dL (4.5-5.3); ABG Lactic Acid Whole Blood 1.6 mmol/L (0.5-1.6); ABG Oxygen Saturation 97.5 % (94-97); ABG PCO2 52 mmHg (35-45); ABG PH 7.29 (7.35-7.45); ABG PO2 99 mmHg (83-108); ABG Potassium Whole Blood 4.4 mmol/L (3.4-4.5); ABG Sodium Whole Blood 137 mmol/L (135-146); ABG TCO2 24 mmol/L (19-24); Allen Test Performed? Yes
[2024-05-15 12:56] LABS: ABG Base Excess -1.7 mmol/L; ABG Glucose Whole Blood 134 mg/dL (75-99); ABG HCO3 25 mmol/L (21-25); ABG Hematocrit 27 % (34.0-46.0); ABG Ionized Calcium 4.5 mg/dL (4.5-5.3); ABG Lactic Acid Whole Blood 1.5 mmol/L (0.5-1.6); ABG Oxygen Saturation 96.3 % (94-97); ABG PCO2 48 mmHg (35-45); ABG PH 7.32 (7.35-7.45); ABG PO2 91 mmHg (83-108); ABG Potassium Whole Blood 4.3 mmol/L (3.4-4.5); ABG Sodium Whole Blood 137 mmol/L (135-146); ABG TCO2 24 mmol/L (19-24)
[2024-05-15] MEDS ORDERED: Potassium Replacement Protocol 1 EACH MISC MISCELLANE PRN (14:38)
[2024-05-15] MEDS ORDERED: Magnesium Replacement Protocol 1 EACH MISC MISCELLANE PRN ×2 (14:38→17:39)
[2024-05-15] MEDS ORDERED: DEXTROSE 5% IN WATER 100 ML with AMIODARONE 150 MG IV PRN (14:38)
[2024-05-15] MEDS ORDERED: AMIODARONE 450 MG in DEXTROSE 5% IN WATER 250 ML IV PRN (14:38)
[2024-05-15] MEDS ORDERED: hydrALAZINE HCL 20 MG/ML 1 ML VIAL IVP PRN (14:38)
[2024-05-15] MEDS ORDERED: IPRATROPIUM-ALBUTEROL 3 ML NEB INHALATION PRN (14:38)
[2024-05-15] MEDS ORDERED: FLUTICASONE NASAL 50MCG/SPRAY 16GM BTL EA NOSTRIL PRN (14:38)
[2024-05-15] MEDS ORDERED: METOCLOPRAMIDE 5 MG/ML 2 ML VIAL IVP PRN (14:38)
[2024-05-15] MEDS ORDERED: ONDANSETRON 4 MG/2 ML VIAL IVP PRN (14:38)
[2024-05-15] MEDS ORDERED: DEXTROSE 50% SYRINGE 50 ML IVP PRN ×2 (14:38)
[2024-05-15] MEDS ORDERED: AMIODARONE 360 MG in DEXTROSE 5% IN WATER 200 ML IV PRN (14:38)
[2024-05-15 14:41] LABS: ABG Base Excess -3.8 mmol/L; ABG Glucose Whole Blood 132 mg/dL (75-99); ABG HCO3 23 mmol/L (21-25); ABG Hematocrit 27 % (34.0-46.0); ABG Ionized Calcium 4.2 mg/dL (4.5-5.3); ABG Oxygen Saturation 94.5 % (94-97); ABG PCO2 46 mmHg (35-45); ABG PO2 76 mmHg (83-108); ABG Potassium Whole Blood 4.3 mmol/L (3.4-4.5); ABG Sodium Whole Blood 137 mmol/L (135-146); ABG TCO2 22 mmol/L (19-24); Allen Test Performed? Yes
[2024-05-15 14:50] LABS: ABG Lactic Acid Whole Blood 3.5 mmol/L (0.5-1.6)
[2024-05-15 14:50] LABS: Anisocytosis Slight; HCT 28.2 % (39.0-53.0); Hypochromasia Marked; MCH 27.6 pg (25.0-35.0); MCHC 31.6 g/dL (31.0-37.0); MCV 87.3 fL (80.0-100.0); Mean Platelet Volume 10.5; Platelet Count 121 k/uL (150-450); RBC 3.23 m/uL (4.30-5.90); RDW 16.5 % (11.5-15.5); WBC 15.9 k/uL (3.8-10.6)
[2024-05-15 14:58] LABS: INR 1.5 (<1.2); Prothrombin Time 15.6 sec (10.0-12.5)
[2024-05-15 14:59] LABS: Partial Thromboplastin Time 31.9 sec (22.0-30.0)
[2024-05-15 15:02] LABS: HGB 8.9 gm/dL (13.0-17.5)
--- NOTE | 2024-05-15 15:44 | XR ---
EXAMINATION TYPE: XR chest 1V portable DATE OF EXAM: 05/15/2024 COMPARISON: Preoperative study 04/24/2024 HISTORY: bad count; missing raytec sponge TECHNIQUE: Single lateral view of the chest is submitted. FINDINGS: Postoperative changes of cardiac surgery noted. No radiopaque foreign body identified to suggest a sp onge over this lateral projection. IMPRESSION: 1. As above
[2024-05-15] MEDS: MILRINONE-D5W PMX 20 MG in DEXTROSE/WATER 1 100ML.BAG IV SCH (16:30)
[2024-05-15] MEDS: SODIUM CHLORIDE 0.9% 1,000 ML IV SCH (16:30)
[2024-05-15] MEDS: NOREPINEPHRINE 4 MG in SODIUM CHLORIDE 0.9% 250 ML IV SCH (16:30)
--- NOTE | 2024-05-15 16:30 | P.OP ---
Date of Procedure: 05/15/24 Preoperative Diagnosis: Unstable Angina, 3v CAD s/p CABG CHF with EF 25% HTN HLD CKD COPD Postoperative Diagnosis: Same Procedure(s) Performed: 1. Redo Off Pump Coronary Artery Bypass Grafting x 2 - Left Thoracotomy Approach 2. Endoscopic right radial and right greater saphenous vein harvest 3. Graft flow measurements using the Medi-Stim flow meter system 4. Cryo-ablation of intercostal nerves 6-9 5. Trans-esophageal echo Anesthesia: GETA Surgeon: Mega Pool Emergency Dispatcher #1: Alli Lee Estimated Blood Loss (ml): 2,000 Pathology: none sent Condition: critical Disposition: ICU Indications for Procedure: This patient is a 69 year-old M with a hx of coronary artery disease who underwent CABG x 2 many years ago with svg-rca and svg-lad. He presented back in december with anginal symptoms and congestive heart failure. Coronary angiography revealed multiple stents in the svg graft to LAD with in stent stenosis and completed occluded graft to the RCA. He then developed recurrent unstable angina. His STS risk of morbidity and mortality which approaches nearly 20% was discussed with him and redo CABG was recommended. He was in agreement to proceed. Operative Findings: Intra-myocardial OM - 1.5mm good target. Right radial artery 2.5mm good conduit. RA-OM Flow 19ml/min, P.I. 2.8 LAD 1.5mm good target. SVG 2.25mm good conduit. SVG-LAD Flow 20ml/min, P.I. 10.4 Description of Procedure: The patient underwent central line and left radial arterial line placement in the pre-operative suite. He was brought back to the operating room and placed in the supine position. He was intubated with a double lumen tube and general anesthesia was induced. He was then positioned partially in the right lateral decubitus position. He was prepped from the chin to the ankles. Antibiotics were given. Bronchoscopy was performed to check placement of double lumen tube and for diagnostic purposes. The left lung was isolated and a large postero-lateral thoracotomy incision was made. This was carried down through the latissmus dorsi muscle using electrocautery. The 7th intercostal space was entered and thoracotomy was extended. The patient initially struggled on single lung ventilation but after some recruitment maneuvers and breathing treatment, we had good lung isolation. Malleable retractor was placed to retract the lung out of the way after the inferior pulmonary ligament was taken down using electrocautery. Next the pericardium was incised above the below the phernic nerve and pericardial stay sutures were placed as adhesions were taken down. The LAD was idenfitied anteriorly. Simultaneously two assistants harvested the right radial and right greater saphenous vein endoscopically. We did have some trouble identifying the obtuse marginal artery which was completely intra-myocardial. We then used epicardial ultrasound to identify the artery and were eventually able to find it 1cm below the surface. It was completely intra-myocardial. Next the conduits were prepared and systemic heparin was given. Once ACT > 250 the obtuse marginal artery was stabilized, opened and 1.5mm flow through inserted. An end to side anastomosis between the radial artery and obtuse marginal was sewn using a running 7-0 prolene. The shunt was removed prior to tieing down the suture. Next, the left anterior descending artery was stabilized, opened and flow through inserted. It was a good target. An end to side between the saphenous vein and LAD was performed using a running 7-0 prolene suture. Next a side biting aortic clamp was placed on the distal descending aorta near the diaphragm. An arteriotomy was made and 4.0mm hole punch used to create the hole for the proixmal. At this point, the clamp was removed and bulldogs were placed on vein graft and the radial was sewn to the saphenous vein in an end to side fashion using a running 7-0 prolene. Graft flows were checked which were good. There was competitive flow in the LAD which is expected. Protamine was given to reverse heparin and hemostasis was achieved. Two 32F chest tubes were placed and the right chest was washed out. #2 kurtis- costal sutures were used to re-approximate the ribs and the wound was closed in layers of PDS and vicryl. Glue was applied. The patient did receive multiple units of transfusion including pRBC, FFP, Cryoprecipitate and Platelets. He was transported to the CVICU in critical condition on milrinone to support his heart function.
[2024-05-15 16:33] LABS: Glucose,Whole Blood 117 mg/dL (70-110)
[2024-05-15 16:44] LABS: ABG HCO3 23 mmol/L (21-25); ABG Oxygen Saturation 100.7 % (94-97); ABG PCO2 37 mmHg (35-45); ABG PH 7.41 (7.35-7.45); ABG PO2 281 mmHg (83-108); ABG TCO2 24 mmol/L (19-24); Allen Test Performed? Yes
[2024-05-15 16:44] LABS: Anisocytosis Slight; Basophils % (A) 0 %; Eosinophils % (A) 0 %; HCT 29.4 % (39.0-53.0); HGB 9.6 gm/dL (13.0-17.5); Hypochromasia Marked; Lymphocytes # (A) 0.9 k/uL (1.0-4.8); Lymphocytes % (A) 12 %; MCH 28.1 pg (25.0-35.0); MCHC 32.5 g/dL (31.0-37.0); MCV 86.6 fL (80.0-100.0); Mean Platelet Volume 10.6; Monocytes # (A) 0.3 k/uL (0-1.0); Monocytes % (A) 5 %; Neutrophils # (A) 5.8 k/uL (1.3-7.7); Neutrophils % (A) 81 %; Poikilocytosis Slight; RDW 16.6 % (11.5-15.5); WBC 7.2 k/uL (3.8-10.6)
[2024-05-15 16:57] LABS: INR 1.3 (<1.2); Partial Thromboplastin Time 27.8 sec (22.0-30.0); Prothrombin Time 13.9 sec (10.0-12.5)
--- NOTE | 2024-05-15 17:11 | XR ---
EXAMINATION TYPE: XR chest 1V portable DATE OF EXAM: 05/15/2024 5:05 PM CLINICAL INDICATION:Male, 69 years old with history of post op cardiac surgery; [facility] COMPARISON: 05/13/2024. TECHNIQUE: XR chest 1V portable Frontal view of the chest. FINDINGS: Lungs/Pleura: There is no evidence of pleural effusion, focal consolidation, or pneumothorax. Pulmonary vascularity: Unremarkable. Heart/mediastinum: Cardiomediastinal silhouette is enlarged and stable. Musculoskeletal: No acute osseous pathology. Other findings: None Lines/Tubes: Endotracheal tube with distal tip 4.2 cm above the flor. Nasogastric tube with its distal tip and side-port projecting under the diaphragm. Right internal jugular central venous catheter with distal tip at the cavoatrial junction. Left thoracotomy tube is present without evidence of pneumothorax. IMPRESSION: Pulmonary vascular congestion with right pleural effusion.
[2024-05-15 17:12] LABS: Platelet Count 81 k/uL (150-450)
[2024-05-15] MEDS: IPRATROPIUM-ALBUTEROL 3 ML NEB INHALATION SCH ×2 (17:14→20:40)
[2024-05-15 17:24] LABS: Glucose,Whole Blood 113 mg/dL (70-110)
[2024-05-15] MEDS: CLEVIDIPINE BUTYRATE 25 MG in EMPTY BAG 1 BAG IV SCH (17:28)
[2024-05-15] MEDS: NITROGLYCERIN-D5W PMX 50 MG in DEXTROSE/WATER 1 250ML.BAG IV SCH (17:29)
[2024-05-15 17:30] LABS: Ionized Calcium 4.9 mg/dL (4.5-5.3)
[2024-05-15 17:38] LABS: ALT 10 U/L (4-49); AST 36 U/L (17-59); African American GFR (CKD) >90 (>60 ml/min/1.73 sqM); Albumin 2.8 g/dL (3.5-5.0); Alkaline Phosphatase 61 U/L (38-126); Anion Gap 10 mmol/L; Blood Urea Nitrogen 15 mg/dL (9-20); Calcium 9.4 mg/dL (8.4-10.2); Carbon Dioxide 19 mmol/L (22-30); Chloride 108 mmol/L (98-107); Glucose 108 mg/dL (74-99); Magnesium 1.7 mg/dL (1.6-2.3); Non-African American GFR(CKD) >90 (>60 ml/min/1.73 sqM); Sodium 137 mmol/L (137-145); Total Bilirubin 2.4 mg/dL (0.2-1.3); Total Protein 4.8 g/dL (6.3-8.2)
[2024-05-15] MEDS: CYCLOBENZAPRINE 10 MG TAB PO SCH (17:58)
[2024-05-15] MEDS: GABAPENTIN 100 MG CAP PO SCH (17:59)
[2024-05-15] MEDS: SODIUM BICARBONATE TAB 650 MG TAB PO SCH (18:02)
[2024-05-15] MEDS: HEPARIN SODIUM,PORCINE 5,000 UNIT/ML 1 ML VIAL SQ SCH (18:02)
[2024-05-15] MEDS: ACETAMINOPHEN IV (For NPO) 1,000 MG in EMPTY BAG 1 BAG IVPB SCH (18:02)
[2024-05-15] MEDS: MAGNESIUM SULFATE-D5W PMX 1 GM in DEXTROSE/WATER 1 100ML.BAG IVPB ONE (18:02)
[2024-05-15 18:26] LABS: Glucose,Whole Blood 126 mg/dL (70-110)
--- NOTE | 2024-05-15 19:13 | P.ANPRN ---
Procedure Note - Anesthesia - Invasive Line Left Arterial Line Time Out Performed: Yes Date of Procedure: 05/15/24 Time of Procedure: 07:30 Location of Patient: PreOp Preparation: Sterile Prep Arterial Line Location: Radial Ultrasound Used: No Needle Guage: 20 Narrative: Left radial line placed by SRNA w/ STUDENT AMBASSADOR assistance. Right Central Line Time Out Performed: Yes Date of Procedure: 05/15/24 Time of Procedure: 07:40 Location of Patient: PreOp Preparation: Sterile Prep, Sterile Dressing Central Line Location: Internal Jugular Ultrasound Used: Yes Purpose - Visualization and Identification of Vasculature: Yes Needle Guage: 18 Image Stored and Saved: Yes Narrative: Invasive line placement per sterile protocol utilized. Seldinger technique w/ u/s guidance
--- NOTE | 2024-05-15 19:17 | P.ANPRN ---
Procedure Note - Anesthesia - KATJA Intraop Pre Bypass KATJA Intraop - Anesthesia Indication: CHF, CAD, MR, AI, TR Date of Procedure: 05/15/24 Pre-operative Diagnosis: CAD Post-operative Diagnosis: Same Surgeon: Mega Pool Left Ventricle: EF 25%, severe hypokinesis most pronounced in inferior and inferoseptal craig Ejection Fraction: Other Regional Wall Motion Abnormalities: Other Left Ventricle Hypertrophy: Yes R. Ventricle Function: Hypokinesis Moderate Anatomy: Trileaflet Aortic Stenosis: None Aortic Regurgitation: Moderate Mitral Stenosis: None Mitral Regurgitation: Moderate Tricuspid Stenosis: None Tricuspid Regurgitation: Moderate Pulmonic Regurgitation: None R. Atrial Dilation: No R. Atrial PFO: No L. Atrial Dilation: Yes Aortic Dissection: No Aortic Calcification: None - KATJA Intraop Post Bypass KATJA Intraop Post Bypass Procedure Performed: OP CABG thoracic approach Left Ventricle: EF 25% w/ severe hypokinesis most pronounced inferior and inferoseptal craig Ejection Fraction: Other Regional Wall Motion Abnormalities: Other R. Ventricle Function: Hypokinesis Moderate Aortic Valve: Unchanged Mitral Valve: Unchanged Tricuspid: Unchanged Pulmonic: Unchanged Aortic Dissection: No (Large left pleural effusion)
[2024-05-15 19:41] LABS: Glucose,Whole Blood 119 mg/dL (70-110)
[2024-05-15 19:55] LABS: Anisocytosis Slight; Basophils % (A) 0 %; Eosinophils % (A) 1 %; HCT 30.5 % (39.0-53.0); HGB 9.7 gm/dL (13.0-17.5); Hypochromasia Moderate; Lymphocytes # (A) 0.8 k/uL (1.0-4.8); Lymphocytes % (A) 14 %; MCH 27.7 pg (25.0-35.0); MCHC 31.8 g/dL (31.0-37.0); MCV 87.1 fL (80.0-100.0); Mean Platelet Volume 10.1; Monocytes # (A) 0.4 k/uL (0-1.0); Monocytes % (A) 7 %; Neutrophils # (A) 4.5 k/uL (1.3-7.7); Neutrophils % (A) 77 %; Poikilocytosis Slight; RDW 16.8 % (11.5-15.5); WBC 5.9 k/uL (3.8-10.6)
[2024-05-15 20:04] LABS: Platelet Count 78 k/uL (150-450)
[2024-05-15 20:54] LABS: Glucose,Whole Blood 118 mg/dL (70-110)
[2024-05-15] MEDS: SENNOSIDES-DOCUSATE SODIUM 1 EACH TAB PO SCH (21:06)
[2024-05-15] MEDS: FUROSEMIDE 10 MG/ML 2 ML VIAL IV STA (21:42)
[2024-05-15 22:20] LABS: Glucose,Whole Blood 127 mg/dL (70-110)
[2024-05-15] MEDS: INSULIN REGULAR 100 UNIT in SODIUM CHLORIDE 0.9% 100 ML IV SCH (22:27)
[2024-05-15 22:52] LABS: ABG Base Excess 2.3 mmol/L; ABG HCO3 26 mmol/L (21-25); ABG Oxygen Saturation 98.4 % (94-97); ABG PCO2 38 mmHg (35-45); ABG PH 7.45 (7.35-7.45); ABG PO2 94 mmHg (83-108); ABG TCO2 28 mmol/L (19-24)
[2024-05-15 23:05] LABS: Glucose,Whole Blood 122 mg/dL (70-110)
[2024-05-15] MEDS: DEXMEDETOMIDINE/0.9% NACL(PMX) 400 MCG in EMPTY BAG 1 BAG IV SCH (23:14)
[2024-05-15 23:50] LABS: VBG PH 7.41 (7.31-7.41)
[2024-05-15 23:56] LABS: Glucose,Whole Blood 112 mg/dL (70-110)
[2024-05-16 01:18] LABS: Glucose,Whole Blood 110 mg/dL (70-110)
[2024-05-16] MEDS: ALBUMIN HUMAN 5% 250 ML in EMPTY BAG 1 BAG IVPB PRN (01:25)
[2024-05-16] MEDS: VASOPRESSIN 20 UNIT in SODIUM CHLORIDE 0.9% 50 ML IV SCH (01:42)
[2024-05-16 02:56] LABS: Anisocytosis Slight; Basophils % (A) 1 %; Eosinophils # (A) 0.1 k/uL (0-0.7); Eosinophils % (A) 1 %; HCT 30.5 % (39.0-53.0); HGB 9.7 gm/dL (13.0-17.5); Hypochromasia Moderate; Lymphocytes # (A) 1.1 k/uL (1.0-4.8); Lymphocytes % (A) 13 %; MCH 27.4 pg (25.0-35.0); MCHC 31.9 g/dL (31.0-37.0); Mean Platelet Volume 10.4; Monocytes # (A) 0.5 k/uL (0-1.0); Monocytes % (A) 6 %; Neutrophils # (A) 6.5 k/uL (1.3-7.7); Neutrophils % (A) 78 %; Poikilocytosis Slight; RBC 3.55 m/uL (4.30-5.90); RDW 17.1 % (11.5-15.5); WBC 8.3 k/uL (3.8-10.6)
[2024-05-16 03:00] LABS: Platelet Count 118 k/uL (150-450)
--- NOTE | 2024-05-16 03:00 | HP ---
HISTORY AND PHYSICAL CHIEF COMPLAINT: Chest pain and shortness of breath. HISTORY OF PRESENT ILLNESS: This is another recent admission for this 69-year-old white male with advanced coronary artery disease. He was just discharged in the hospital recently. He had another NSTEMI and was being followed by Cardiology and Cardiac Surgery, did an assessment as to whether or not he was a candidate for a CABG. It was decided that the risk was too great for his discharge. At home, he has been doing fairly well, but feeling quite tired. He was in the office recently and was not in heart failure and was not having any pain. He came back in on the morning of admission with chest pain and shortness of breath. In the emergency room, he had a lactic acid of 3.5 and his pH was down to 7.26. His CO2 was 54 and his O2 was 63. He was taken directly to the operating room. Past medical history, family history, personal and social histories are all otherwise unchanged. PHYSICAL EXAMINATION: Physical exam is deferred. IMPRESSION: 1. Acute congestive heart failure. 2. Chronic congestive heart failure. 3. Non ST elevation myocardial infarction. 4. Advanced coronary artery disease. 5. Atherosclerotic cardiomyopathy. 6. Chronic obstructive pulmonary disease. 7. Chronic renal failure. PLAN: The patient was seen by Cardiology and Cardiac Surgery and was taken to the operating room. MMDEYANIRA / CALLI: [id number] /
[2024-05-16 03:09] LABS: Glucose,Whole Blood 111 mg/dL (70-110)
[2024-05-16 03:35] LABS: ALT 11 U/L (4-49); AST 42 U/L (17-59); African American GFR (CKD) >90 (>60 ml/min/1.73 sqM); Albumin 2.9 g/dL (3.5-5.0); Alkaline Phosphatase 54 U/L (38-126); Anion Gap 7 mmol/L; Blood Urea Nitrogen 16 mg/dL (9-20); Calcium 8.3 mg/dL (8.4-10.2); Carbon Dioxide 22 mmol/L (22-30); Chloride 106 mmol/L (98-107); Glucose 99 mg/dL (74-99); Non-African American GFR(CKD) 89 (>60 ml/min/1.73 sqM); Potassium 4.2 mmol/L (3.5-5.1); Sodium 135 mmol/L (137-145); Total Bilirubin 2.1 mg/dL (0.2-1.3)
--- NOTE | 2024-05-16 04:08 | P.CNPUL ---
History of Present Illness Consult date: 05/16/24 Requesting physician: Leticia Rascon Reason for consult: other (ICU management; post open heart surgery) Chief complaint: Elective CABG History of present illness: Patient is a 69-year-old white male brought in yesterday for an elective CABG x 2 redo. Past medical history significant for coronary artery disease status post CABG over 20 years ago in [place] followed by subsequent PCI/stenting, ischemic cardiomyopathy, hyperlipidemia, hypertension, chronic kidney disease, chronic ongoing tobacco dependence, COPD, obstructive sleep apnea, among other things. We were asked to see this patient for preoperative pulmonary clearance back in December,. A bedside FEV1 was performed which was 43% of predicted or 1.41 L indicating a severe degree of obstruction. At that time, we felt the patient to be at high risk for pulmonary complications perioperatively. Yesterday, patient underwent a redo off-pump coronary artery bypass grafting x 2 with a left thoracotomy approach. There was a right radial graft to the OM and a SVG graft to the LAD. Intraoperatively, the patient reportedly did have significant EBL of almost 4 L. He received multiple blood products so far including 3 units PRBCs, 2 FFP, 1 pack platelets, and 1 pooled cryoprecipitate. Also, has recieved 1.75 L of 5% albumin. 3 L crystalloid fluid. Patient was then transported to the intensive care unit in critical condition. He remains intubated to the mechanical ventilator. Current ventilator settings of assist-control, respiratory rate 12, tidal volume 550, FiO2 40%, and PEEP of 10. He is breathing above set rate. Peak pressures 26. No significant airway secretions. Propofol is infusing at 10 mcg/kg/min. ABGs done on the settings but an FiO2 of 100%, show a PaO2 of 281, pCO2 of 37, pH of 7.41. Postoperative chest x-ray shows postoperative changes, a chronic right pleural effusion with pulmonary vascular congestion. 2 left-sided chest tubes in place, no sizable pneumothoraces appreciated. Hemodynamics are marginal. He is on milrinone, which is currently infusing at 0.25 mcg/kg/min. Also, requiring norepinephrine for blood pressure support currently infusing at 0.1 mcg/kg/min. Normal saline infusing at 50 MLS per hour. There is no pulmonary artery catheter. CVP reading 12. He has 2 left-sided chest tubes divided anteriorly and posteriorly. Anterior chest tube has a total of 140 mL of serosanguineous output and the left posterior chest tube has a total of 430 mL of serosanguineous output. No significant air leaks. Most recent postoperative CBC: WBC count 8.3, hemoglobin 9.7, hematocrit 30.5, platelets 118. CMP: Sodium 137, potassium 4, chloride 108, serum bicarb 19, BUN 15, creatinine 0.72, glucose 108. He does have an indewelling urinary catheter. Received a dose of Lasix 20 mg earlier. He initially diuressed copiously. Urine output is currently in the order of 50-100 ml/hr. Earlier, patient's PEEP was dropped to 8, follow-up ABG, was satisfactory with a PaO2 of 94, pCO2 of 38, pH of 7.45. Reportedly, weaning trial was attempted earlier, per the rapid exudation protocol. Patient was unable to tolerate pressure support, he was reportedly anxious, tachypneic, and had high minute ventilation. He was transitioned to Precedex, but this did not help. On my follow-up evaluation, patient has had increasing vasopressor requirements. Vasopressin was added by CT surgery, which is infusing at physiological dose. In light of patient's hemodynamic instability and increasing vasopressor requirements. Will hold off on any further weaning attempts at this point. Review of Systems ROS unobtainable: due to endotracheal tube Past Medical History Past Medical History: Coronary Artery Disease (CAD), Chest Pain / Angina, Heart Failure, COPD, GERD/Reflux, Hyperlipidemia, Hypertension, Myocardial Infarction (MS), Osteoarthritis (OA), Sleep Apnea/CPAP/BIPAP Additional Past Medical History / Comment(s): Chronic back pain, left leg weakness. No device use for Sleep Apnea, states uses O2 at night only. Recent SOB, edema lower extremitries. States unsure about having had a heart attack. Last Myocardial Infarction Date:: 11/11/22 History of Any Multi-Drug Resistant Organisms: None Reported Past Surgical History: Back Surgery, Cholecystectomy, Coronary Bypass/CABG, Heart Catheterization With Stent, Orthopedic Surgery Additional Past Surgical History / Comment(s): Back surgery X2 with cage, left tennis elbow surgery, heart stents X7, colonoscopy, lasik eye surgery jacob villatoro,. emergency CABG [facility] [place], thrombectomy. Past Anesthesia/Blood Transfusion Reactions: No Reported Reaction Additional Past Anesthesia/Blood Transfusion Reaction / Comment(s): Pt received blood during CABG without reaction. Date of Last Stent Placement:: Oct 2022 Past Psychological History: Anxiety, Depression, PTSD Additional Psychological History / Comment(s): He ambulates with a cane. He drives. Smoking Status: Current every day smoker Past Alcohol Use History: Abuse Additional Past Alcohol Use History / Comment(s): Started smoking in 1967, used to smoke 3ppd, down to 3-4 cigarettes per day now. No alcohol in 30+ yrs. Past Drug Use History: Cocaine Additional Drug Use History / Comment(s): States no cocaine use for 30+ yrs. - Past Family History Father Family Medical History: Coronary Artery Disease (CAD), Deep Vein Thrombosis (DVT), GERD/Reflux, Hyperlipidemia, Myocardial Infarction (MS) Additional Family Medical History / Comment(s): Father of a MS in his 80's. Mother Family Medical History: Coronary Artery Disease (CAD), Myocardial Infarction (MS) Additional Family Medical History / Comment(s): Mother of a MS. Brother(s) Family Medical History: Myocardial Infarction (MS) Additional Family Medical History / Comment(s): . Sister(s) Family Medical History: Cancer, Diabetes Mellitus Additional Family Medical History / Comment(s): Lung cancer. Other sister had Diabetes. Medications and Allergies Home Medications Medication Instructions Recorded Confirmed Type HYDROcodone/APAP 10-325MG [[place] 1 tab PO TID 02/22/15 05/15/24 History 10-325] Apixaban [Eliquis] 2.5 mg PO BID #60 tab 11/18/22 05/15/24 Rx Ezetimibe [Zetia] 10 mg PO DAILY #90 tab 11/18/22 05/15/24 Rx Fluticasone Nasal [place] [Flonase 1 spray EA NOSTRIL BID PRN 01/27/23 05/15/24 History Nasal [place]] Metoprolol Succinate (ER) [Toprol 50 mg PO DAILY #30 tab 02/01/23 05/15/24 Rx XL] ALPRAZolam [Xanax] 2 mg PO TID PRN 03/15/23 05/15/24 History Clopidogrel [Plavix] 75 mg PO HS 08/21/23 05/15/24 History Cyclobenzaprine [Flexeril] 10 mg PO TID 08/21/23 05/15/24 History Omeprazole [PriLOSEC] 20 mg PO AC-BID 08/21/23 05/15/24 History lisinopriL [Zestril] 2.5 mg PO DAILY 08/21/23 05/15/24 History Albuterol Inhaler [Ventolin Hfa 1 - 2 puff INHALATION RT-Q6H PRN 12/22/23 05/15/24 History Inhaler] Dapagliflozin Propanediol [Farxiga] 5 mg PO DAILY #30 tab 12/24/23 05/15/24 Rx Nitroglycerin Sl Tabs [Nitrostat] 0.4 mg SL Q5M PRN 01/13/24 05/15/24 History Furosemide [Lasix] 40 mg PO DAILY #100 tab 01/25/24 05/15/24 Rx Sodium Bicarbonate Tab 650 mg PO TID #100 tab 01/25/24 05/15/24 Rx Ergocalciferol [Vitamin D2 (1250 1,250 mcg PO Q30D 05/10/24 05/15/24 History Mcg = 63826 Iu)] Ferrous Sulfate [Iron (65 MG 650 mg PO Q30D 05/10/24 05/15/24 History Elemental)] Gabapentin [Neurontin] 100 mg PO TID 05/10/24 05/15/24 History Allergies Allergy/AdvReac Type Severity Reaction Status Date / Time latex Allergy Swelling Verified 05/15/24 06:54 atorvastatin [From Lipitor] AdvReac JOINT PAIN Verified 05/15/24 06:54 Physical Exam Vitals: Vital Signs Temp Pulse Pulse Resp BP BP BP 05/16/24 02:15 73 18 86/48 05/16/24 02:00 74 19 84/42 05/16/24 01:45 75 19 05/16/24 01:30 76 22 05/16/24 01:15 77 23 05/16/24 01:11 05/16/24 01:03 05/16/24 01:00 77 27 H 05/16/24 00:45 78 22 111/56 05/16/24 00:30 78 26 H 05/16/24 00:15 78 27 H 05/16/24 00:04 77 22 05/16/24 00:00 100.0 F H 77 23 05/15/24 23:45 78 20 88/50 05/15/24 23:30 84 22 102/57 05/15/24 23:20 05/15/24 23:15 87 30 H 05/15/24 23:00 84 24 102/57 05/15/24 22:45 86 20 05/15/24 22:30 86 20 05/15/24 22:15 98.8 F 87 19 05/15/24 22:00 98.4 F 85 20 05/15/24 21:45 84 22 05/15/24 21:30 85 20 05/15/24 21:15 86 19 05/15/24 21:00 97.7 F 84 19 05/15/24 20:51 84 05/15/24 20:45 82 12 05/15/24 20:41 82 05/15/24 20:35 05/15/24 20:30 82 21 05/15/24 20:15 80 16 05/15/24 20:00 96.8 F L 78 20 05/15/24 19:45 85 18 05/15/24 19:30 77 18 05/15/24 19:15 76 16 05/15/24 19:00 76 19 05/15/24 18:53 05/15/24 18:45 77 19 05/15/24 18:30 76 19 05/15/24 18:15 77 18 05/15/24 18:00 95.9 F L 76 15 05/15/24 17:45 75 14 05/15/24 17:30 73 12 05/15/24 17:24 76 05/15/24 17:17 74 05/15/24 17:15 74 12 05/15/24 17:14 05/15/24 17:00 94.8 F L 77 16 05/15/24 16:45 78 17 05/15/24 16:35 94.6 F L 76 13 05/15/24 16:30 12 05/15/24 07:03 120/67 05/15/24 07:00 97.8 F 77 18 115/63 Pulse Ox FiO2 05/16/24 02:15 97 05/16/24 02:00 98 05/16/24 01:45 98 05/16/24 01:30 98 05/16/24 01:15 99 07/18/24 01:11 40 05/16/24 01:03 40 05/16/24 01:00 99 05/16/24 00:45 100 05/16/24 00:30 100 05/16/24 00:15 100 05/16/24 00:04 98 05/16/24 00:00 97 40 05/15/24 23:45 97 05/15/24 23:30 95 05/15/24 23:20 40 05/15/24 23:15 100 05/15/24 23:00 97 05/15/24 22:45 99 05/15/24 22:30 99 05/15/24 22:15 99 05/15/24 22:00 99 40 05/15/24 21:45 99 05/15/24 21:30 100 05/15/24 21:15 100 05/15/24 21:00 100 40 05/15/24 20:51 05/15/24 20:45 100 05/15/24 20:41 05/15/24 20:35 50 05/15/24 20:30 100 05/15/24 20:15 100 05/15/24 20:00 100 50 05/15/24 19:45 100 05/15/24 19:30 100 05/15/24 19:15 05/15/24 19:00 05/15/24 18:53 50 05/15/24 18:45 100 05/15/24 18:30 100 05/15/24 18:15 100 05/15/24 18:00 100 60 05/15/24 17:45 100 05/15/24 17:30 100 05/15/24 17:24 05/15/24 17:17 05/15/24 17:15 100 60 05/15/24 17:14 60 05/15/24 17:00 100 05/15/24 16:45 100 05/15/24 16:35 100 100 05/15/24 16:30 100 05/15/24 07:03 05/15/24 07:00 96 Intake and Output 05/15/24 05/15/24 05/16/24 14:59 22:59 06:59 Intake Total 1659 1216.249 480.747 Output Total 4384 1411 1496 Balance -841 -194.751 -1015.253 Intake: IV 103 641.570 318 ACETAMINOPHEN IV (For NPO 100 100 ) 1,000 mg In Empty Bag 1 bag @ 400 mls/hr IVPB Q6HR ELIANA Rx#:[id number] Magnesium Sulfate-D5w Pmx 100 1 gm In Dextrose/Water 1 100ml.bag @ 100 mls/hr IVPB ONCE ONE Rx#: [id number] Milrinone-D5w Pmx 20 mg 27.570 In Dextrose/Water 1 100ml .bag @ 0.375 MCG/KG/MIN 11.025 mls/hr IV .Q9H5M ELIANA Rx#:[id number] Pressure Bag (0.9 sodium 39 18 chloride) Sodium Chloride 0.9% 1, 325 150 000 ml @ 50 mls/hr IV . Q20H ELIANA Rx#:[id number] ceFAZolin 2 gm In Sodium 50 50 Chloride 0.9% 50 ml @ Per Protocol 100 mls/hr IVPB ONCE ONE Rx#:[id number] Intake, IV Titration 177.679 162.747 Amount Dexmedetomidine/0.9% NaCl 60.598 (Pmx) 400 mcg In Empty Bag 1 bag @ Titrate IV . Q0M ELIANA Rx#:[id number] Insulin Regular 100 unit 1.582 In Sodium Chloride 0.9% 100 ml @ Per Protocol IV .Q0M [facility]IANA Rx#:[id number] Milrinone-D5w Pmx 20 mg 53.287 In Dextrose/Water 1 100ml .bag @ 0.375 MCG/KG/MIN 11.025 mls/hr IV .Q9H5M [facility]NA Rx#:[id number] Norepinephrine 4 mg In 36.094 88.865 Sodium Chloride 0.9% 250 ml @ 0.03 MCG/KG/MIN 11. 201 mls/hr IV .[id number] [facility]NA Rx#:[id number] propofoL 1,000 mg In 88.298 11.702 Empty Bag 1 bag @ Titrate IV .Q0M ELIANA Rx#: [id number] Blood Product 1556 397 Ffp 24 Cpd Unit 334 [id number] Ffp 24 Cpd Unit 302 [id number] Platelet Pheresis Pas 292 Psoralen Unit [id number] Pooled Cryoprecipitate 95 Unit [id number] Rc As-1 Unit 310 [id number] As-1 Unit 310 [id number] As-1 Unit 310 [id number] Output: Chest Tube Drainage 466 156 Left Anterior Chest 154 26 Left Posterior Chest 312 130 Drainage 70 Right Arm 35 Right Calf 35 Urine 448 258 9508 Estimated Blood Loss 1999 Other: Voiding Method Indwelling Catheter Indwelling Catheter Weight 98 kg ABP, PAP, CO, CI - Last 8 Hours Arterial Blood Pressure 79/41 Arterial Blood Pressure 70/37 Arterial Blood Pressure 76/40 Arterial Blood Pressure 93/44 Arterial Blood Pressure 93/41 Arterial Blood Pressure 119/47 Arterial Blood Pressure 124/48 Arterial Blood Pressure 113/47 Arterial Blood Pressure 96/42 Arterial Blood Pressure 94/42 Arterial Blood Pressure 97/41 Arterial Blood Pressure 102/42 Arterial Blood Pressure 148/55 Arterial Blood Pressure 143/53 Arterial Blood Pressure 116/45 Arterial Blood Pressure 113/47 Arterial Blood Pressure 114/47 Arterial Blood Pressure 112/46 Arterial Blood Pressure 118/47 Arterial Blood Pressure 114/46 Arterial Blood Pressure 108/45 Arterial Blood Pressure 106/44 Arterial Blood Pressure 136/54 Arterial Blood Pressure 160/59 Arterial Blood Pressure 114/47 Arterial Blood Pressure 128/49 Arterial Blood Pressure 129/51 Arterial Blood Pressure 110/45 Arterial Blood Pressure 101/42 Arterial Blood Pressure 133/51 GENERAL EXAM: Sedated on propofol, breathing above set rate, asynchronous with mechanical ventilator. HEAD: Normocephalic and atraumatic EYES: Normal reaction of pupils, equal size. NOSE: Clear with pink turbinates. THROAT: No erythema or exudates. NECK: No masses, no JVD. Right IJ catheter. CHEST: Old sternal thoracotomy noted. Left thoracotomy incision with postoperative incisional dressing clean, dry, intact. 2 left-sided chest tubes noted. LUNGS: Equal air entry with no crackles, wheeze, rhonchi. Diminished right posterior basilar lung sounds. Intubated mechanical ventilator. Peak pressures 26. No significant airway secretions. CVS: S1 and S2 normal with no audible murmur, regular rhythm. No extra heart sounds ABDOMEN: No hepatosplenomegaly, active bowel sounds, no guarding or rigidity. SPINE: No scoliosis or deformity SKIN: No rashes CENTRAL NERVOUS SYSTEM: Patient appears anxious. Does follow simple commands. Moves all 4 extremities. No obvious focal deficits. EXTREMITIES: There is no peripheral edema, clubbing, or cyanosis. Peripheral pulses are intact. Legs are wrapped with Joon bandages. Right arm wrapped with Joon bandage and DEEPTI drain compressed. SCDs in place. Results - Laboratory Findings CBC and BMP: 05/16/24 02:25 05/16/24 02:25 ABG ABG pH 7.45 (7.35-7.45) 05/15/24 22:46 ABG pCO2 38 mmHg (35-45) 05/15/24 22:46 ABG pO2 94 mmHg (83-108) 05/15/24 22:46 ABG O2 Saturation 98.4 % (94-97) H 05/15/24 22:46 PT/INR, D-dimer PT 13.9 sec (10.0-12.5) H 05/15/24 16:29 INR 1.3 (<1.2) H 05/15/24 16:29 Abnormal lab findings: Abnormal Labs 05/13/24 05/15/24 05/15/24 11:23 09:27 10:18 WBC RBC Hgb Hct RDW Plt Count Lymphocytes # PT INR APTT Fibrinogen ABG pH 7.34 L 7.26 L ABG pCO2 54 H ABG pO2 296 H 63 L ABG HCO3 ABG Total CO2 ABG O2 Saturation 99.1 H 86.7 L ABG Hematocrit 33 L ABG Potassium 4.7 H ABG Ionized Calcium ABG Glucose 109 H 119 H ABG Lactic Acid 1.8 H Hemoglobin 10.9 L 10.8 L Chloride Carbon Dioxide Glucose POC Glucose (mg/dL) Total Bilirubin Total Protein Albumin Arterial Blood Potassium 4.7 H Arterial Blood Glucose 109 H 119 H Crossmatch See Detail 05/15/24 05/15/24 05/15/24 11:38 12:29 12:59 WBC RBC Hgb Hct RDW Plt Count Lymphocytes # PT INR APTT Fibrinogen ABG pH 7.32 L 7.29 L 7.32 L ABG pCO2 50 H 52 H 48 H ABG pO2 74 L ABG HCO3 26 H ABG Total CO2 ABG O2 Saturation 92.9 L 97.5 H ABG Hematocrit 30 L 27 L 27 L ABG Potassium ABG Ionized Calcium ABG Glucose 118 H 123 H 134 H ABG Lactic Acid Hemoglobin 9.6 L 8.9 L 8.7 L Chloride Carbon Dioxide Glucose POC Glucose (mg/dL) Total Bilirubin Total Protein Albumin Arterial Blood Potassium Arterial Blood Glucose 118 H 123 H 134 H Crossmatch 05/15/24 05/15/24 05/15/24 13:58 14:47 14:47 WBC 15.9 H RBC 3.23 L Hgb 8.9 L D Hct 28.2 L RDW 16.5 H Plt Count 121 L Lymphocytes # PT 15.6 H INR 1.5 H APTT 31.9 H Fibrinogen 124 L ABG pH 7.30 L ABG pCO2 46 H ABG pO2 76 L ABG HCO3 ABG Total CO2 ABG O2 Saturation ABG Hematocrit 27 L ABG Potassium ABG Ionized Calcium 4.2 L ABG Glucose 132 H ABG Lactic Acid 3.5 H* Hemoglobin 8.7 L Chloride Carbon Dioxide Glucose POC Glucose (mg/dL) Total Bilirubin Total Protein Albumin Arterial Blood Potassium Arterial Blood Glucose 132 H Crossmatch 05/15/24 05/15/24 05/15/24 16:29 16:29 16:29 WBC RBC 3.40 L Hgb 9.6 L Hct 29.4 L RDW 16.6 H Plt Count 81 L Lymphocytes # 0.9 L PT 13.9 H INR 1.3 H APTT Fibrinogen ABG pH ABG pCO2 ABG pO2 ABG HCO3 ABG Total CO2 ABG O2 Saturation ABG Hematocrit ABG Potassium ABG Ionized Calcium ABG Glucose ABG Lactic Acid Hemoglobin Chloride 108 H Carbon Dioxide 19 L Glucose 108 H POC Glucose (mg/dL) Total Bilirubin 2.4 H Total Protein 4.8 L Albumin 2.8 L Arterial Blood Potassium Arterial Blood Glucose Crossmatch 05/15/24 05/15/24 05/15/24 16:29 16:31 16:40 WBC RBC Hgb Hct RDW Plt Count Lymphocytes # PT INR APTT Fibrinogen 189 L ABG pH ABG pCO2 ABG pO2 281 H ABG HCO3 ABG Total CO2 ABG O2 Saturation 100.7 H ABG Hematocrit ABG Potassium ABG Ionized Calcium ABG Glucose ABG Lactic Acid Hemoglobin Chloride Carbon Dioxide Glucose POC Glucose (mg/dL) 117 H Total Bilirubin Total Protein Albumin Arterial Blood Potassium Arterial Blood Glucose Crossmatch 05/15/24 05/15/24 05/15/24 17:23 18:24 19:40 WBC RBC Hgb Hct RDW Plt Count Lymphocytes # PT INR APTT Fibrinogen ABG pH ABG pCO2 ABG pO2 ABG HCO3 ABG Total CO2 ABG O2 Saturation ABG Hematocrit ABG Potassium ABG Ionized Calcium ABG Glucose ABG Lactic Acid Hemoglobin Chloride Carbon Dioxide Glucose POC Glucose (mg/dL) 113 H 126 H 119 H Total Bilirubin Total Protein Albumin Arterial Blood Potassium Arterial Blood Glucose Crossmatch 05/15/24 05/15/24 05/15/24 19:40 20:52 22:19 WBC RBC 3.50 L Hgb 9.7 L Hct 30.5 L RDW 16.8 H Plt Count 78 L Lymphocytes # 0.8 L PT INR APTT Fibrinogen ABG pH ABG pCO2 ABG pO2 ABG HCO3 ABG Total CO2 ABG O2 Saturation ABG Hematocrit ABG Potassium ABG Ionized Calcium ABG Glucose ABG Lactic Acid Hemoglobin Chloride Carbon Dioxide Glucose POC Glucose (mg/dL) 118 H 127 H Total Bilirubin Total Protein Albumin Arterial Blood Potassium Arterial Blood Glucose Crossmatch 05/15/24 05/15/24 05/15/24 22:46 23:03 23:55 WBC RBC Hgb Hct RDW Plt Count Lymphocytes # PT INR APTT Fibrinogen ABG pH ABG pCO2 ABG pO2 ABG HCO3 26 H ABG Total CO2 28 H ABG O2 Saturation 98.4 H ABG Hematocrit ABG Potassium ABG Ionized Calcium ABG Glucose ABG Lactic Acid Hemoglobin Chloride Carbon Dioxide Glucose POC Glucose (mg/dL) 122 H 112 H Total Bilirubin Total Protein Albumin Arterial Blood Potassium Arterial Blood Glucose Crossmatch - Diagnostic Findings Chest x-ray: image reviewed Assessment and Plan Assessment: Postoperative day #1 following an off-pump redo, coronary artery bypass grafting x 2 with left thoracotomy approach, including right radial graft to the OM and SVG graft to the LAD. Intraoperatively, patient had significant EBL of 4 L. Has received multiple blood product so far including 3 units PRBCs, 2 FFP, 1 pack platelets, 1 pooled cryoprecipitate, 1.75 L 5% albumin. Also received 3 L crystalloids. Acute blood loss anemia, expected outcome of surgery, most recent hemoglobin 9.7 g/dL Routine postoperative mechanical ventilator management, postoperative chest x- ray shows the endotracheal tube in satisfactory position approximately 4.2 cm above the flor, orogastric tube coursing below the diaphragm, right IJ central venous catheter with distal tip at the cavoatrial junction, left thoracotomy tubes in place without evidence of pneumothoraces. There is a chronic right pleural effusion. Pulmonary vascular congestion. Coronary artery disease, with previous history of CABG over 20 years ago followed by subsequent PCI/stenting Ischemic cardiomyopathy, recent echocardiogram 04/25/2024 estimates a severely reduced left ventricular ejection fraction of 20 to 25%, as well as, moderate mitral and tricuspid regurgitation History of hypertension History of hyperlipidemia History of tobacco dependence Chronic obstructive pulmonary disease, bedside FEV1 was performed which was 43% of predicted or 1.41 L indicating a severe degree of obstruction History of obstructive sleep apnea Chronic hypoxemic respiratory failure, utilizes 3 L/min nasal cannula at home as needed Chronic right-sided pleural effusion History of asbestos exposure Plan: Patient's medications, labs, chest x-ray reviewed patient is currently recovering in the intensive care unit Remains intubated to the mechanical ventilator. Most recent ABG noted. PEEP was dropped down to 8. An attempt was made to wean patient per rapid extubation protocol earlier. He did not tolerate weaning attempt. He was transitioned to Precedex. Subsequently, patient has required increasing vasopressor requirements. In light of patient's hemodynamic instability and increasing vasopressor requirements, will hold off on further weaning attempts at this point. Will switch the patient back to previous ventilator settings. Hemodynamics are currently marginal. Currently, requiring a combination of milrinone, norepinephrine, and vasopressin. Pulmonary artery catheter absent CVP 12 He did receive significant amount of blood products intraoperatively Monitor chest tube output Monitor H&H SCDs in place Protonix for GI prophylaxis We will continue to follow and make recommendations along the way I have personally seen and examined the patient, performed the documentation and the assessment and plan as written. Number of minutes spent on the visit:20 Time with Patient: Greater than 30
[2024-05-16 04:24] LABS: Glucose,Whole Blood 112 mg/dL (70-110)
[2024-05-16 05:24] LABS: Glucose,Whole Blood 113 mg/dL (70-110)
[2024-05-16 06:04] LABS: Glucose,Whole Blood 111 mg/dL (70-110)
[2024-05-16 06:07] LABS: ABG Base Excess 1.1 mmol/L; ABG HCO3 25 mmol/L (21-25); ABG Oxygen Saturation 98.8 % (94-97); ABG PCO2 36 mmHg (35-45); ABG PH 7.45 (7.35-7.45); ABG PO2 99 mmHg (83-108); ABG TCO2 26 mmol/L (19-24)
[2024-05-16 06:11] LABS: VBG PH 7.39 (7.31-7.41)
[2024-05-16 06:12] LABS: Anisocytosis Slight; Basophils % (A) 1 %; Eosinophils # (A) 0.1 k/uL (0-0.7); Eosinophils % (A) 1 %; HCT 29.9 % (39.0-53.0); Hypochromasia Moderate; Lymphocytes # (A) 1.2 k/uL (1.0-4.8); Lymphocytes % (A) 13 %; MCH 28.1 pg (25.0-35.0); MCHC 33.3 g/dL (31.0-37.0); MCV 84.5 fL (80.0-100.0); Mean Platelet Volume 10.9; Monocytes # (A) 0.6 k/uL (0-1.0); Monocytes % (A) 7 %; Neutrophils % (A) 78 %; Platelet Count 105 k/uL (150-450); Poikilocytosis Moderate; RBC 3.54 m/uL (4.30-5.90); RDW 17.2 % (11.5-15.5)
[2024-05-16 06:29] LABS: Ionized Calcium 4.6 mg/dL (4.5-5.3)
[2024-05-16 06:39] LABS: ALT 11 U/L (4-49); AST 47 U/L (17-59); African American GFR (CKD) >90 (>60 ml/min/1.73 sqM); Alkaline Phosphatase 57 U/L (38-126); Anion Gap 6 mmol/L; Blood Urea Nitrogen 16 mg/dL (9-20); Calcium 8.6 mg/dL (8.4-10.2); Carbon Dioxide 24 mmol/L (22-30); Chloride 106 mmol/L (98-107); Glucose 102 mg/dL (74-99); Magnesium 1.7 mg/dL (1.6-2.3); Non-African American GFR(CKD) 84 (>60 ml/min/1.73 sqM); Potassium 4.2 mmol/L (3.5-5.1); Sodium 136 mmol/L (137-145); Total Bilirubin 1.8 mg/dL (0.2-1.3); Total Protein 5.2 g/dL (6.3-8.2)
--- NOTE | 2024-05-16 06:50 | XR ---
EXAMINATION TYPE: XR chest 1V portable DATE OF EXAM: 05/16/2024 COMPARISON: 05/15/2024 INDICATION: Postop cardiac surgery TECHNIQUE: Single frontal view of the chest is obtained. FINDINGS: The heart size is mildly prominent. The pulmonary vasculature is normal. There is a right lower lobe infiltrate with a small right pleural effusion. Mild linear opacities at the left base. Correlate for atelectasis. 2 left-sided chest tubes are present. No pneumothorax is ev ident. Right central venous catheter tip is within the distal superior vena cava region. Endotracheal tube tip is above. Nasogastric tube is present, the distal tip is not clearly identified IMPRESSION: 1. Right lower lobe infiltrate with a small right pleural effusion. 2. Infiltrate at the left base more suggestive for atelectasis. Pneumonia wouldn't remain within the differential. 3. Multiple lines and catheters discussed above.
[2024-05-16] MEDS: MAGNESIUM SULFATE-D5W PMX 1 GM in DEXTROSE/WATER 1 100ML.BAG IVPB ONE (06:56)
[2024-05-16 08:01] LABS: Glucose,Whole Blood 119 mg/dL (70-110)
[2024-05-16] MEDS: CLOPIDOGREL 75 MG TAB PO SCH (08:09)
[2024-05-16] MEDS: EZETIMIBE 10 MG TAB PO SCH (08:09)
[2024-05-16] MEDS: ASPIRIN 81 MG PO SCH (08:09)
[2024-05-16] MEDS: ATORVASTATIN 40 MG TAB PO SCH (08:09)
[2024-05-16] MEDS: PANTOPRAZOLE 40 MG/10 ML VIAL IVP SCH (08:10)
[2024-05-16] MEDS: IPRATROPIUM-ALBUTEROL 3 ML NEB INHALATION SCH (08:48)
[2024-05-16] MEDS: BUDESONIDE 1 MG/2 ML NEBU INHALATION SCH (08:48)
[2024-05-16] MEDS: FORMOTEROL FUMARATE 20 MCG/2 ML NEBU INHALATION SCH (08:48)
--- NOTE | 2024-05-16 08:58 | P.PN ---
Subjective Progress Note Date: 05/16/24 Principal diagnosis: Triple-vessel coronary artery disease, unstable Angina. History of coronary artery disease with previous myocardial infarction and multiple stents as well as thrombectomy on Eliquis for anticoagulation, most recent PCI was to the [facility] in 10/2022, as well as coronary artery bypass graft surgery approximately 20 years ago, ischemic cardiomyopathy, chronic systolic heart failure with reduced ejection fraction, hypertension, hyperlipidemia, left internal carotid artery stenosis, chronic kidney disease, chronic anemia, chronic ongoing tobacco use, severe COPD on home oxygen 2 L/min, obstructive sleep apnea, chronic back pain with history of back surgery, and family history of heart disease. POD #1 redo off pump coronary artery bypass grafting x 2 - left thoracotomy approach, endoscopic right radial and right greater saphenous vein harvest, graft flow measurements using the Medi-Stim flow meter system, cryo-ablation of intercostal nerves 6-9, trans-esophageal echo Intra and postoperative acute blood loss anemia and thrombocytopenia, expected given hemodilution as well as preoperative use of Plavix and Eliquis Hypotension requiring IV pressor use, expected given blood loss The patient was seen and examined this morning with Dr. Lee. He was laying in bed in the intensive care unit in no acute distress. Remains sedated on mechanical ventilation. Attempt was made last night to wake patient up to wean to extubate, however patient became hypotensive as well as tachypneic so he was placed back on full ventilatory support. This morning he is in sinus rhythm, systolic blood pressure marginal in the 90s but mean arterial pressure suffic ient in the 60-70 range. Currently on IV levo, vaso, Primacor, propofol. Chest x-ray, labs reviewed. Right internal jugular Cordis, left radial arterial line, left-sided anterior and posterior chest tubes present. Objective - Vital Signs Vital signs: Vital Signs Temp 100.9 F H 05/16/24 08:00 Pulse 84 05/16/24 08:00 Resp 22 05/16/24 08:00 BP 96/49 05/16/24 08:00 Pulse Ox 98 05/16/24 08:00 FiO2 40 05/16/24 08:00 Intake & Output 05/15/24 05/16/24 05/16/24 18:59 06:59 18:59 Intake Total 2546.045 1523.818 302.162 Output Total 3295 2813 180 Balance -748.955 -1289.182 122.162 Weight 98 kg 102 kg Intake: IV 520.570 972 162 ACETAMINOPHEN IV (For NPO 100 100 ) 1,000 mg In Empty Bag 1 bag @ 400 mls/hr IVPB Q6HR [facility] Rx#:[id number] Albumin Human 5% 250 ml 250 In Empty Bag 1 bag @ 250 mls/hr IVPB Q1HR PRN Rx#: [id number] Magnesium Sulfate-D5w Pmx 100 1 gm In Dextrose/Water 1 100ml.bag @ 100 mls/hr IVPB ONCE ONE Rx#: [id number] Milrinone-D5w Pmx 20 mg 27.570 In Dextrose/Water 1 100ml .bag @ 0.25 MCG/KG/MIN 7. 35 mls/hr IV .[id number] [facility] Rx#:[id number] Pressure Bag (0.9 sodium 15 72 12 chloride) Sodium Chloride 0.9% 1, 125 500 100 000 ml @ 50 mls/hr IV . Q20H [facility] Rx#:[id number] ceFAZolin 2 gm In Sodium 50 50 50 Chloride 0.9% 50 ml @ Per Protocol 100 mls/hr IVPB ONCE ONE Rx#:[id number] Intake, IV Titration 72.475 551.818 50.162 Amount Dexmedetomidine/0.9% NaCl 60.598 (Pmx) 400 mcg In Empty Bag 1 bag @ Titrate IV . Q0M [facility] Rx#:[id number] Insulin Regular 100 unit 1.582 In Sodium Chloride 0.9% 100 ml @ Per Protocol IV .Q0M [facility] Rx#:[id number] Milrinone-D5w Pmx 20 mg 100.000 In Dextrose/Water 1 100ml .bag @ 0.25 MCG/KG/MIN 7. 35 mls/hr IV .[id number] [facility] Rx#:[id number] Norepinephrine 4 mg In 12.695 291.549 14.686 Sodium Chloride 0.9% 250 ml @ 0.03 MCG/KG/MIN 11. 201 mls/hr IV .[id number] [facility] Rx#:[id number] propofoL 1,000 mg In 59.78 98.089 35.476 Empty Bag 1 bag @ Titrate IV .Q0M [facility] Rx#: [id number] Oral 90 Blood Product 1953 Ffp 24 Cpd Unit 334 [id number] Ffp 24 Cpd Unit 302 [id number] Platelet Pheresis Pas 292 Psoralen Unit [id number] Pooled Cryoprecipitate 95 Unit [id number] Rc As-1 Unit 310 [id number] Rc As-1 Unit 310 [id number] Rc As-1 Unit 310 [id number] Output: Chest Tube Drainage 330 438 40 Left Anterior Chest 120 96 0 Left Posterior Chest 210 342 40 Gastric Drainage 250 Drainage 70 Right Arm 35 Right Calf 35 Urine 965 2055 140 Estimated Blood Loss 1999 Other: Voiding Method Indwelling Catheter Indwelling Catheter ABP, PAP, CO, CI - Last Documented Arterial Blood Pressure 104/44 - Exam CONSTITUTIONAL: Remains in no acute distress, sedated on mechanical ventilation RESPIRATORY: Lungs sounds diminished in the bases bilaterally. Respirations even, nonlabored on mechanical ventilation. Current ventilator settings assist-control, FiO2 40%, PEEP 8, tidal volume 550, respiratory rate 12. 9.0 ET tube present, 24 at the lip. CARDIOVASCULAR: S1, S2 present. Regular rate and rhythm, sinus rhythm on telemetry. Palpable peripheral pulses bilaterally. Generalized edema present. No calf pain or tenderness noted. Heart hugger, antiembolism stockings, SCDs present. GASTROINTESTINAL: Abdomen soft, nontender, nondistended, obese. Hypoactive bowel sounds present 4 quadrants. OG tube present to low intermittent suction, 250 mL brownish output since surgery GENITOURINARY: Mcneill present draining clear, yellow urine. Output overnight 60-180 mL per hour INTEGUMENTARY: Skin is warm and dry with evidence of good perfusion. Left lateral chest incision well approximated and covered with dry intact dressing. Right radial artery harvest and right lower extremity EVH site well approximated, DEEPTI drains present to both with minimal output PSYCHIATRIC: Sedated with propofol INVASIVE LINES AND TUBES: Left anterior and posterior pleural chest tubes present and connected to wall suction, no air leaks present. Left anterior chest tube with 60 to mL serosanguineous drainage overnight, 190 mL since surgery. Left posterior pleural chest tube with 240 mL serosanguineous drainage overnight, 640 mL since surgery. Right internal jugular cordis, left radial arterial line present. Last CVP 12 - Allied health notes Allied health notes reviewed: nursing - Labs CBC & Chem 7: 05/16/24 05:56 05/16/24 05:56 Labs: Abnormal Lab Results - Last 24 Hours (Table) 05/13/24 05/15/24 05/15/24 Range/Units 11:23 09:27 10:18 WBC (3.8-10.6) k/uL RBC (4.30-5.90) m/uL Hgb (13.0-17.5) gm/dL Hct (39.0-53.0) % RDW (11.5-15.5) % Plt Count (150-450) k/uL Lymphocytes # (1.0-4.8) k/uL PT (10.0-12.5) sec INR (<1.2) APTT (22.0-30.0) sec Fibrinogen (200-500) mg/dL ABG pH 7.34 L 7.26 L (7.35-7.45) ABG pCO2 54 H (35-45) mmHg ABG pO2 296 H 63 L (83-108) mmHg ABG HCO3 (21-25) mmol/L ABG Total CO2 (19-24) mmol/L ABG O2 Saturation 99.1 H 86.7 L (94-97) % ABG Hematocrit 33 L (34.0-46.0) % ABG Potassium 4.7 H (3.4-4.5) mmol/L ABG Ionized Calcium (4.5-5.3) mg/dL ABG Glucose 109 H 119 H (75-99) mg/dL ABG Lactic Acid 1.8 H (0.5-1.6) mmol/L Hemoglobin 10.9 L 10.8 L (13.0-17.5) gm/dL Sodium (137-145) mmol/L Chloride (98-107) mmol/L Carbon Dioxide (22-30) mmol/L Glucose (74-99) mg/dL POC Glucose (mg/dL) (70-110) mg/dL Plasma Lactic Acid Tomy (0.7-2.0) mmol/L Calcium (8.4-10.2) mg/dL Total Bilirubin (0.2-1.3) mg/dL Total Protein (6.3-8.2) g/dL Albumin (3.5-5.0) g/dL Arterial Blood Potassium 4.7 H (3.4-4.5) mmol/L Arterial Blood Glucose 109 H 119 H (75-99) mg/dL Crossmatch See Detail 05/15/24 05/15/24 05/15/24 Range/Units 11:38 12:29 12:59 WBC (3.8-10.6) k/uL RBC (4.30-5.90) m/uL Hgb (13.0-17.5) gm/dL Hct (39.0-53.0) % RDW (11.5-15.5) % Plt Count (150-450) k/uL Lymphocytes # (1.0-4.8) k/uL PT (10.0-12.5) sec INR (<1.2) APTT (22.0-30.0) sec Fibrinogen (200-500) mg/dL ABG pH 7.32 L 7.29 L 7.32 L (7.35-7.45) ABG pCO2 50 H 52 H 48 H (35-45) mmHg ABG pO2 74 L (83-108) mmHg ABG HCO3 26 H (21-25) mmol/L ABG Total CO2 (19-24) mmol/L ABG O2 Saturation 92.9 L 97.5 H (94-97) % ABG Hematocrit 30 L 27 L 27 L (34.0-46.0) % ABG Potassium (3.4-4.5) mmol/L ABG Ionized Calcium (4.5-5.3) mg/dL ABG Glucose 118 H 123 H 134 H (75-99) mg/dL ABG Lactic Acid (0.5-1.6) mmol/L Hemoglobin 9.6 L 8.9 L 8.7 L (13.0-17.5) gm/dL Sodium (137-145) mmol/L Chloride (98-107) mmol/L Carbon Dioxide (22-30) mmol/L Glucose (74-99) mg/dL POC Glucose (mg/dL) (70-110) mg/dL Plasma Lactic Acid Tomy (0.7-2.0) mmol/L Calcium (8.4-10.2) mg/dL Total Bilirubin (0.2-1.3) mg/dL Total Protein (6.3-8.2) g/dL Albumin (3.5-5.0) g/dL Arterial Blood Potassium (3.4-4.5) mmol/L Arterial Blood Glucose 118 H 123 H 134 H (75-99) mg/dL Crossmatch 05/15/24 05/15/24 05/15/24 Range/Units 13:58 14:47 14:47 WBC 15.9 H (3.8-10.6) k/uL RBC 3.23 L (4.30-5.90) m/uL Hgb 8.9 L D (13.0-17.5) gm/dL Hct 28.2 L (39.0-53.0) % RDW 16.5 H (11.5-15.5) % Plt Count 121 L (150-450) k/uL Lymphocytes # (1.0-4.8) k/uL PT 15.6 H (10.0-12.5) sec INR 1.5 H (<1.2) APTT 31.9 H (22.0-30.0) sec Fibrinogen 124 L (200-500) mg/dL ABG pH 7.30 L (7.35-7.45) ABG pCO2 46 H (35-45) mmHg ABG pO2 76 L (83-108) mmHg ABG HCO3 (21-25) mmol/L ABG Total CO2 (19-24) mmol/L ABG O2 Saturation (94-97) % ABG Hematocrit 27 L (34.0-46.0) % ABG Potassium (3.4-4.5) mmol/L ABG Ionized Calcium 4.2 L (4.5-5.3) mg/dL ABG Glucose 132 H (75-99) mg/dL ABG Lactic Acid 3.5 H* (0.5-1.6) mmol/L Hemoglobin 8.7 L (13.0-17.5) gm/dL Sodium (137-145) mmol/L Chloride (98-107) mmol/L Carbon Dioxide (22-30) mmol/L Glucose (74-99) mg/dL POC Glucose (mg/dL) (70-110) mg/dL Plasma Lactic Acid Tomy (0.7-2.0) mmol/L Calcium (8.4-10.2) mg/dL Total Bilirubin (0.2-1.3) mg/dL Total Protein (6.3-8.2) g/dL Albumin (3.5-5.0) g/dL Arterial Blood Potassium (3.4-4.5) mmol/L Arterial Blood Glucose 132 H (75-99) mg/dL Crossmatch 05/15/24 05/15/24 05/15/24 Range/Units 16:29 16:29 16:29 WBC (3.8-10.6) k/uL RBC 3.40 L (4.30-5.90) m/uL Hgb 9.6 L (13.0-17.5) gm/dL Hct 29.4 L (39.0-53.0) % RDW 16.6 H (11.5-15.5) % Plt Count 81 L (150-450) k/uL Lymphocytes # 0.9 L (1.0-4.8) k/uL PT 13.9 H (10.0-12.5) sec INR 1.3 H (<1.2) APTT (22.0-30.0) sec Fibrinogen (200-500) mg/dL ABG pH (7.35-7.45) ABG pCO2 (35-45) mmHg ABG pO2 (83-108) mmHg ABG HCO3 (21-25) mmol/L ABG Total CO2 (19-24) mmol/L ABG O2 Saturation (94-97) % ABG Hematocrit (34.0-46.0) % ABG Potassium (3.4-4.5) mmol/L ABG Ionized Calcium (4.5-5.3) mg/dL ABG Glucose (75-99) mg/dL ABG Lactic Acid (0.5-1.6) mmol/L Hemoglobin (13.0-17.5) gm/dL Sodium (137-145) mmol/L Chloride 108 H (98-107) mmol/L Carbon Dioxide 19 L (22-30) mmol/L Glucose 108 H (74-99) mg/dL POC Glucose (mg/dL) (70-110) mg/dL Plasma Lactic Acid Tomy (0.7-2.0) mmol/L Calcium (8.4-10.2) mg/dL Total Bilirubin 2.4 H (0.2-1.3) mg/dL Total Protein 4.8 L (6.3-8.2) g/dL Albumin 2.8 L (3.5-5.0) g/dL Arterial Blood Potassium (3.4-4.5) mmol/L Arterial Blood Glucose (75-99) mg/dL Crossmatch 05/15/24 05/15/24 05/15/24 Range/Units 16:29 16:31 16:40 WBC (3.8-10.6) k/uL RBC (4.30-5.90) m/uL Hgb (13.0-17.5) gm/dL Hct (39.0-53.0) % RDW (11.5-15.5) % Plt Count (150-450) k/uL Lymphocytes # (1.0-4.8) k/uL PT (10.0-12.5) sec INR (<1.2) APTT (22.0-30.0) sec Fibrinogen 189 L (200-500) mg/dL ABG pH (7.35-7.45) ABG pCO2 (35-45) mmHg ABG pO2 281 H (83-108) mmHg ABG HCO3 (21-25) mmol/L ABG Total CO2 (19-24) mmol/L ABG O2 Saturation 100.7 H (94-97) % ABG Hematocrit (34.0-46.0) % ABG Potassium (3.4-4.5) mmol/L ABG Ionized Calcium (4.5-5.3) mg/dL ABG Glucose (75-99) mg/dL ABG Lactic Acid (0.5-1.6) mmol/L Hemoglobin (13.0-17.5) gm/dL Sodium (137-145) mmol/L Chloride (98-107) mmol/L Carbon Dioxide (22-30) mmol/L Glucose (74-99) mg/dL POC Glucose (mg/dL) 117 H (70-110) mg/dL Plasma Lactic Acid Tomy (0.7-2.0) mmol/L Calcium (8.4-10.2) mg/dL Total Bilirubin (0.2-1.3) mg/dL Total Protein (6.3-8.2) g/dL Albumin (3.5-5.0) g/dL Arterial Blood Potassium (3.4-4.5) mmol/L Arterial Blood Glucose (75-99) mg/dL Crossmatch 05/15/24 05/15/24 05/15/24 Range/Units 17:23 18:24 19:40 WBC (3.8-10.6) k/uL RBC (4.30-5.90) m/uL Hgb (13.0-17.5) gm/dL Hct (39.0-53.0) % RDW (11.5-15.5) % Plt Count (150-450) k/uL Lymphocytes # (1.0-4.8) k/uL PT (10.0-12.5) sec INR (<1.2) APTT (22.0-30.0) sec Fibrinogen (200-500) mg/dL ABG pH (7.35-7.45) ABG pCO2 (35-45) mmHg ABG pO2 (83-108) mmHg ABG HCO3 (21-25) mmol/L ABG Total CO2 (19-24) mmol/L ABG O2 Saturation (94-97) % ABG Hematocrit (34.0-46.0) % ABG Potassium (3.4-4.5) mmol/L ABG Ionized Calcium (4.5-5.3) mg/dL ABG Glucose (75-99) mg/dL ABG Lactic Acid (0.5-1.6) mmol/L Hemoglobin (13.0-17.5) gm/dL Sodium (137-145) mmol/L Chloride (98-107) mmol/L Carbon Dioxide (22-30) mmol/L Glucose (74-99) mg/dL POC Glucose (mg/dL) 113 H 126 H 119 H (70-110) mg/dL Plasma Lactic Acid Tomy (0.7-2.0) mmol/L Calcium (8.4-10.2) mg/dL Total Bilirubin (0.2-1.3) mg/dL Total Protein (6.3-8.2) g/dL Albumin (3.5-5.0) g/dL Arterial Blood Potassium (3.4-4.5) mmol/L Arterial Blood Glucose (75-99) mg/dL Crossmatch 05/15/24 05/15/24 05/15/24 Range/Units 19:40 20:52 22:19 WBC (3.8-10.6) k/uL RBC 3.50 L (4.30-5.90) m/uL Hgb 9.7 L (13.0-17.5) gm/dL Hct 30.5 L (39.0-53.0) % RDW 16.8 H (11.5-15.5) % Plt Count 78 L (150-450) k/uL Lymphocytes # 0.8 L (1.0-4.8) k/uL PT (10.0-12.5) sec INR (<1.2) APTT (22.0-30.0) sec Fibrinogen (200-500) mg/dL ABG pH (7.35-7.45) ABG pCO2 (35-45) mmHg ABG pO2 (83-108) mmHg ABG HCO3 (21-25) mmol/L ABG Total CO2 (19-24) mmol/L ABG O2 Saturation (94-97) % ABG Hematocrit (34.0-46.0) % ABG Potassium (3.4-4.5) mmol/L ABG Ionized Calcium (4.5-5.3) mg/dL ABG Glucose (75-99) mg/dL ABG Lactic Acid (0.5-1.6) mmol/L Hemoglobin (13.0-17.5) gm/dL Sodium (137-145) mmol/L Chloride (98-107) mmol/L Carbon Dioxide (22-30) mmol/L Glucose (74-99) mg/dL POC Glucose (mg/dL) 118 H 127 H (70-110) mg/dL Plasma Lactic Acid Tomy (0.7-2.0) mmol/L Calcium (8.4-10.2) mg/dL Total Bilirubin (0.2-1.3) mg/dL Total Protein (6.3-8.2) g/dL Albumin (3.5-5.0) g/dL Arterial Blood Potassium (3.4-4.5) mmol/L Arterial Blood Glucose (75-99) mg/dL Crossmatch 05/15/24 05/15/24 05/15/24 Range/Units 22:46 23:03 23:55 WBC (3.8-10.6) k/uL RBC (4.30-5.90) m/uL Hgb (13.0-17.5) gm/dL Hct (39.0-53.0) % RDW (11.5-15.5) % Plt Count (150-450) k/uL Lymphocytes # (1.0-4.8) k/uL PT (10.0-12.5) sec INR (<1.2) APTT (22.0-30.0) sec Fibrinogen (200-500) mg/dL ABG pH (7.35-7.45) ABG pCO2 (35-45) mmHg ABG pO2 (83-108) mmHg ABG HCO3 26 H (21-25) mmol/L ABG Total CO2 28 H (19-24) mmol/L ABG O2 Saturation 98.4 H (94-97) % ABG Hematocrit (34.0-46.0) % ABG Potassium (3.4-4.5) mmol/L ABG Ionized Calcium (4.5-5.3) mg/dL ABG Glucose (75-99) mg/dL ABG Lactic Acid (0.5-1.6) mmol/L Hemoglobin (13.0-17.5) gm/dL Sodium (137-145) mmol/L Chloride (98-107) mmol/L Carbon Dioxide (22-30) mmol/L Glucose (74-99) mg/dL POC Glucose (mg/dL) 122 H 112 H (70-110) mg/dL Plasma Lactic Acid Tomy (0.7-2.0) mmol/L Calcium (8.4-10.2) mg/dL Total Bilirubin (0.2-1.3) mg/dL Total Protein (6.3-8.2) g/dL Albumin (3.5-5.0) g/dL Arterial Blood Potassium (3.4-4.5) mmol/L Arterial Blood Glucose (75-99) mg/dL Crossmatch 05/16/24 05/16/24 05/16/24 Range/Units 01:40 02:25 02:25 WBC (3.8-10.6) k/uL RBC 3.55 L (4.30-5.90) m/uL Hgb 9.7 L (13.0-17.5) gm/dL Hct 30.5 L (39.0-53.0) % RDW 17.1 H (11.5-15.5) % Plt Count 118 L D (150-450) k/uL Lymphocytes # (1.0-4.8) k/uL PT (10.0-12.5) sec INR (<1.2) APTT (22.0-30.0) sec Fibrinogen (200-500) mg/dL ABG pH (7.35-7.45) ABG pCO2 (35-45) mmHg ABG pO2 (83-108) mmHg ABG HCO3 (21-25) mmol/L ABG Total CO2 (19-24) mmol/L ABG O2 Saturation (94-97) % ABG Hematocrit (34.0-46.0) % ABG Potassium (3.4-4.5) mmol/L ABG Ionized Calcium (4.5-5.3) mg/dL ABG Glucose (75-99) mg/dL ABG Lactic Acid 2.3 H* (0.5-1.6) mmol/L Hemoglobin (13.0-17.5) gm/dL Sodium 135 L (137-145) mmol/L Chloride (98-107) mmol/L Carbon Dioxide (22-30) mmol/L Glucose (74-99) mg/dL POC Glucose (mg/dL) (70-110) mg/dL Plasma Lactic Acid Tomy (0.7-2.0) mmol/L Calcium 8.3 L (8.4-10.2) mg/dL Total Bilirubin 2.1 H (0.2-1.3) mg/dL Total Protein 5.0 L (6.3-8.2) g/dL Albumin 2.9 L (3.5-5.0) g/dL Arterial Blood Potassium (3.4-4.5) mmol/L Arterial Blood Glucose (75-99) mg/dL Crossmatch 05/16/24 05/16/24 05/16/24 Range/Units 03:07 04:23 04:54 WBC (3.8-10.6) k/uL RBC (4.30-5.90) m/uL Hgb (13.0-17.5) gm/dL Hct (39.0-53.0) % RDW (11.5-15.5) % Plt Count (150-450) k/uL Lymphocytes # (1.0-4.8) k/uL PT (10.0-12.5) sec INR (<1.2) APTT (22.0-30.0) sec Fibrinogen (200-500) mg/dL ABG pH (7.35-7.45) ABG pCO2 (35-45) mmHg ABG pO2 (83-108) mmHg ABG HCO3 (21-25) mmol/L ABG Total CO2 26 H (19-24) mmol/L ABG O2 Saturation 98.8 H (94-97) % ABG Hematocrit (34.0-46.0) % ABG Potassium (3.4-4.5) mmol/L ABG Ionized Calcium (4.5-5.3) mg/dL ABG Glucose (75-99) mg/dL ABG Lactic Acid (0.5-1.6) mmol/L Hemoglobin (13.0-17.5) gm/dL Sodium (137-145) mmol/L Chloride (98-107) mmol/L Carbon Dioxide (22-30) mmol/L Glucose (74-99) mg/dL POC Glucose (mg/dL) 111 H 112 H (70-110) mg/dL Plasma Lactic Acid Tomy (0.7-2.0) mmol/L Calcium (8.4-10.2) mg/dL Total Bilirubin (0.2-1.3) mg/dL Total Protein (6.3-8.2) g/dL Albumin (3.5-5.0) g/dL Arterial Blood Potassium (3.4-4.5) mmol/L Arterial Blood Glucose (75-99) mg/dL Crossmatch 05/16/24 05/16/24 05/16/24 Range/Units 05:21 05:56 05:56 WBC (3.8-10.6) k/uL RBC 3.54 L (4.30-5.90) m/uL Hgb 10.0 L (13.0-17.5) gm/dL Hct 29.9 L (39.0-53.0) % RDW 17.2 H (11.5-15.5) % Plt Count 105 L (150-450) k/uL Lymphocytes # (1.0-4.8) k/uL PT (10.0-12.5) sec INR (<1.2) APTT (22.0-30.0) sec Fibrinogen (200-500) mg/dL ABG pH (7.35-7.45) ABG pCO2 (35-45) mmHg ABG pO2 (83-108) mmHg ABG HCO3 (21-25) mmol/L ABG Total CO2 (19-24) mmol/L ABG O2 Saturation (94-97) % ABG Hematocrit (34.0-46.0) % ABG Potassium (3.4-4.5) mmol/L ABG Ionized Calcium (4.5-5.3) mg/dL ABG Glucose (75-99) mg/dL ABG Lactic Acid (0.5-1.6) mmol/L Hemoglobin (13.0-17.5) gm/dL Sodium 136 L (137-145) mmol/L Chloride (98-107) mmol/L Carbon Dioxide (22-30) mmol/L Glucose 102 H (74-99) mg/dL POC Glucose (mg/dL) 113 H (70-110) mg/dL Plasma Lactic Acid Tomy (0.7-2.0) mmol/L Calcium (8.4-10.2) mg/dL Total Bilirubin 1.8 H (0.2-1.3) mg/dL Total Protein 5.2 L (6.3-8.2) g/dL Albumin 3.0 L (3.5-5.0) g/dL Arterial Blood Potassium (3.4-4.5) mmol/L Arterial Blood Glucose (75-99) mg/dL Crossmatch 05/16/24 05/16/24 05/16/24 Range/Units 05:56 06:03 07:59 WBC (3.8-10.6) k/uL RBC (4.30-5.90) m/uL Hgb (13.0-17.5) gm/dL Hct (39.0-53.0) % RDW (11.5-15.5) % Plt Count (150-450) k/uL Lymphocytes # (1.0-4.8) k/uL PT (10.0-12.5) sec INR (<1.2) APTT (22.0-30.0) sec Fibrinogen (200-500) mg/dL ABG pH (7.35-7.45) ABG pCO2 (35-45) mmHg ABG pO2 (83-108) mmHg ABG HCO3 (21-25) mmol/L ABG Total CO2 (19-24) mmol/L ABG O2 Saturation (94-97) % ABG Hematocrit (34.0-46.0) % ABG Potassium (3.4-4.5) mmol/L ABG Ionized Calcium (4.5-5.3) mg/dL ABG Glucose (75-99) mg/dL ABG Lactic Acid (0.5-1.6) mmol/L Hemoglobin (13.0-17.5) gm/dL Sodium (137-145) mmol/L Chloride (98-107) mmol/L Carbon Dioxide (22-30) mmol/L Glucose (74-99) mg/dL POC Glucose (mg/dL) 111 H 119 H (70-110) mg/dL Plasma Lactic Acid Tomy 2.5 H* (0.7-2.0) mmol/L Calcium (8.4-10.2) mg/dL Total Bilirubin (0.2-1.3) mg/dL Total Protein (6.3-8.2) g/dL Albumin (3.5-5.0) g/dL Arterial Blood Potassium (3.4-4.5) mmol/L Arterial Blood Glucose (75-99) mg/dL Crossmatch - Imaging and Cardiology Chest x-ray: report reviewed, image reviewed Assessment and Plan Assessment: Triple-vessel coronary artery disease, unstable angina with history of coronary artery disease/previous myocardial infarction/multiple stents/thrombectomy on Eliquis for anticoagulation/CABG 20 years ago, status post two-vessel redo off- pump CABG Ischemic cardiomyopathy/chronic systolic heart failure with reduced ejection fraction, EF 25-30% History of hypertension, currently hypotensive on pressors Hyperlipidemia, treated with Zetia, patient has muscle pain with statins, cholesterol 121, LDL 52, triglycerides 180 Left internal carotid artery stenosis, 50-79% Chronic kidney disease, stage IIIb, baseline creatinine 1.6-1.7 Chronic anemia Chronic ongoing tobacco use Severe COPD on home oxygen 2 L/min, preoperative FEV1 43% of predicted Obstructive sleep apnea Chronic back pain with history of back surgery Family history of heart disease. Intra and postoperative acute blood loss anemia and thrombocytopenia, expected given hemodilution as well as preoperative use of Plavix and Eliquis Plan: Continue to maximize medical therapy with low-dose aspirin, Plavix, statin, Zetia. Will introduce beta-dorinda once off pressors. Will reinitiate Eliquis at discharge Wean from levo, vaso as tolerated Continue Primacor for another 24 hours Wean from mechanical ventilation as tolerated, management per pulmonology Once extubated increase activity as tolerated. PT/OT/cardiac rehab consulted Once extubated encourage incentive spirometry use 10 times every hour while awake Will ultrasound right chest for effusion, possible chest tube placement Will monitor daily labs and x-rays, electrolyte replacement per protocol. No further blood transfusion at this point GI/DVT prophylaxis Insulin management per internal medicine, patient should remain on continuous IV insulin for 24 hours then may transition to subcutaneous per protocol. Patient is not diabetic, preoperative hemoglobin A1c 5.5% Pain control per current medication regimen Continue chest tubes for another 24 hours, monitor output Will discontinue DEEPTI drains Continue Mcneill catheter for another 24 hours, continue to monitor and record strict accurate intake and output Daily weights Continue home medications of sodium bicarb, Neurontin, iron, vitamin D, Flexeril More recommendations to follow as patient progresses
[2024-05-16] MEDS ORDERED: ASPIRIN 325 MG TAB PO SCH (09:00)
[2024-05-16] MEDS ORDERED: METOPROLOL TARTRATE 12.5 MG TAB PO SCH (09:00)
[2024-05-16] MEDS ORDERED: bisacodyL 10 MG SUPP RECTAL PRN (09:00)
[2024-05-16] MEDS ORDERED: MAGNESIUM HYDROXIDE 2,400 MG/30 ML CUP PO PRN (09:00)
--- NOTE | 2024-05-16 09:06 | US ---
EXAMINATION TYPE: US chest DATE OF EXAM: 05/16/2024 COMPARISON: NONE CLINICAL INDICATION: Male, 69 years old with history of right chest for effusion; right pleural effus ion TECHNIQUE: Targeted ultrasound of the posterior lower EXAM MEASUREMENTS: Technical limitations, ICU patient, unable to sit upright on own, needed assistance Right Pleural Effusion pocket size: 4.4 cm Right skin surface to fluid distance: 5.2 cm Right side marked for possible thoracentesis outside the dept. Left side NOT marked for possible thoracentesis outside the dept. Pulmonologists are able to review the images in the patient?s EMR. IMPRESSIONS: Right pleural effusion
--- NOTE | 2024-05-16 09:47 | P.CRDCN ---
History of Present Illness Consult date: 05/16/24 Consult reason: known to you History of present illness: The patient is a 69-year-old male who follows in the office with Dr. Wiggins. He was referred for redo coronary bypass as he has undergone multiple stents to his SVG to LAD as well as having a chronically occluded RCA. The patient underwent redo off-pump coronary bypass yesterday with Dr. Pool. Postoperatively he remains ventilated and is still on vasopressor support. He also remains on milrinone as he has an ejection fraction of 25%. Ultrasound of the chest was being performed at the time of my examination for chronic right pleural effusion. DIAGNOSTICS: Chest x-ray shows pulmonary vascular congestion with right pleural effusion. Stable lines consistent with post CV surgery. Ultrasound of the chest shows right pleural effusion pocket at 4.4 cm Lab data: WBC 9.0, hemoglobin 10.0, Acosta crit 29.9, platelet 105, sodium 136, potassium 4.2, BUN 16, creatinine 0.94, AST 47, ALT 11, magnesium 1.7 PHYSICAL EXAMINATION: This is a 69-year-old male. Currently sedated on venti lator. HEENT: Head is atraumatic, normocephalic. Pupils are equal, round. There is no jugular venous distention. No carotid bruit is heard. CHEST EXAMINATION: Lungs are diminished to auscultation. No wheezes or rhonchi. HEART EXAMINATION: Heart regular rate and rhythm. S1, S2 heard. No murmurs, ga llops or rub. ABDOMEN: Soft, nontender. Bowel sounds are heard. No organomegaly noted. EXTREMITIES: 2+ peripheral pulses with no evidence of peripheral edema and no calf tenderness noted. FINAL ASSESSMENT AND PLAN: Multivessel coronary artery disease with prior CABG Redo CABG x 2 Ischemic cardiomyopathy, EF 25% Moderate aortic regurgitation Hypertension Hyperlipidemia History of hypoxic respiratory failure on home oxygen History of ventricular fibrillation during cardiac catheterization History of chronic congestive heart failure, systolic PLAN: Continue supportive treatment as recommended by CV surgery Wean from ventilator as tolerated Further recommendations to be based upon clinical course I am dictating on behalf of Dr Andrew Chacon's history/physical and assessment/plan. Past Medical History Past Medical History: Coronary Artery Disease (CAD), Chest Pain / Angina, Heart Failure, COPD, GERD/Reflux, Hyperlipidemia, Hypertension, Myocardial Infarction (CT), Osteoarthritis (OA), Sleep Apnea/CPAP/BIPAP Additional Past Medical History / Comment(s): Chronic back pain, left leg weakness. No device use for Sleep Apnea, states uses O2 at night only. Recent SOB, edema lower extremitries. States unsure about having had a heart attack. Last Myocardial Infarction Date:: 11/11/22 History of Any Multi-Drug Resistant Organisms: None Reported Past Surgical History: Back Surgery, Cholecystectomy, Coronary Bypass/CABG, Heart Catheterization With Stent, Orthopedic Surgery Additional Past Surgical History / Comment(s): Back surgery X2 with cage, left tennis elbow surgery, heart stents X7, colonoscopy, lasik eye surgery bilaterally,. emergency CABG [facility], thrombectomy. Past Anesthesia/Blood Transfusion Reactions: No Reported Reaction Additional Past Anesthesia/Blood Transfusion Reaction / Comment(s): Pt received blood during CABG without reaction. Date of Last Stent Placement:: Oct 2022 Past Psychological History: Anxiety, Depression, PTSD Additional Psychological History / Comment(s): He ambulates with a cane. He drives. Smoking Status: Current every day smoker Past Alcohol Use History: Abuse Additional Past Alcohol Use History / Comment(s): Started smoking in 1967, used to smoke 3ppd, down to 3-4 cigarettes per day now. No alcohol in 30+ yrs. Past Drug Use History: Cocaine Additional Drug Use History / Comment(s): States no cocaine use for 30+ yrs. - Past Family History Father Family Medical History: Coronary Artery Disease (CAD), Deep Vein Thrombosis (DVT), GERD/Reflux, Hyperlipidemia, Myocardial Infarction (CT) Additional Family Medical History / Comment(s): Father of a CT in his 80's. Mother Family Medical History: Coronary Artery Disease (CAD), Myocardial Infarction (CT) Additional Family Medical History / Comment(s): Mother of a CT. Brother(s) Family Medical History: Myocardial Infarction (CT) Additional Family Medical History / Comment(s): . Sister(s) Family Medical History: Cancer, Diabetes Mellitus Additional Family Medical History / Comment(s): Lung cancer. Other sister had Diabetes. Medications and Allergies Home Medications Medication Instructions Recorded Confirmed Type HYDROcodone/APAP 10-325MG [Woodman 1 tab PO TID 02/22/15 05/15/24 History 10-325] Apixaban [Eliquis] 2.5 mg PO BID #60 tab 11/18/22 05/15/24 Rx Ezetimibe [Zetia] 10 mg PO DAILY #90 tab 11/18/22 05/15/24 Rx Fluticasone Nasal Thor [Flonase 1 spray EA NOSTRIL BID PRN 01/27/23 05/15/24 History Nasal Thor] Metoprolol Succinate (ER) [Toprol 50 mg PO DAILY #30 tab 02/01/23 05/15/24 Rx XL] ALPRAZolam [Xanax] 2 mg PO TID PRN 03/15/23 05/15/24 History Clopidogrel [Plavix] 75 mg PO HS 08/21/23 05/15/24 History Cyclobenzaprine [Flexeril] 10 mg PO TID 08/21/23 05/15/24 History Omeprazole [PriLOSEC] 20 mg PO AC-BID 08/21/23 05/15/24 History lisinopriL [Zestril] 2.5 mg PO DAILY 08/21/23 05/15/24 History Albuterol Inhaler [Ventolin Hfa 1 - 2 puff INHALATION RT-Q6H PRN 12/22/23 05/15/24 History Inhaler] Dapagliflozin Propanediol [Farxiga] 5 mg PO DAILY #30 tab 12/24/23 05/15/24 Rx Nitroglycerin Sl Tabs [Nitrostat] 0.4 mg SL Q5M PRN 01/13/24 05/15/24 History Furosemide [Lasix] 40 mg PO DAILY #100 tab 01/25/24 05/15/24 Rx Sodium Bicarbonate Tab 650 mg PO TID #100 tab 01/25/24 05/15/24 Rx Ergocalciferol [Vitamin D2 (1250 1,250 mcg PO Q30D 05/10/24 05/15/24 History Mcg = 78430 Iu)] Ferrous Sulfate [Iron (65 MG 650 mg PO Q30D 05/10/24 05/15/24 History Elemental)] Gabapentin [Neurontin] 100 mg PO TID 05/10/24 05/15/24 History Allergies Allergy/AdvReac Type Severity Reaction Status Date / Time latex Allergy Swelling Verified 05/15/24 06:54 atorvastatin [From Lipitor] AdvReac JOINT PAIN Verified 05/15/24 06:54 Physical Exam Vitals: Vital Signs Temp Pulse Resp BP Pulse Ox FiO2 05/16/24 09:26 88 05/16/24 09:15 89 18 104/57 98 05/16/24 09:07 90 05/16/24 09:00 90 26 H 111/91 95 05/16/24 08:59 91 05/16/24 08:48 40 05/16/24 08:45 85 45 H 95/50 96 05/16/24 08:30 86 19 94/47 99 05/16/24 08:15 86 22 94/44 98 05/16/24 08:00 100.9 F H 84 22 96/49 98 40 05/16/24 07:45 84 24 107/57 98 05/16/24 07:30 85 28 H 91/53 100 05/16/24 07:15 87 22 94/47 100 05/16/24 07:00 86 22 93/52 100 05/16/24 06:45 86 17 95/49 100 05/16/24 06:30 85 21 94/47 100 05/16/24 06:15 83 18 102/46 100 05/16/24 06:00 100.9 F H 82 17 99/45 99 05/16/24 05:45 80 22 100 05/16/24 05:30 80 23 120/59 100 05/16/24 05:26 40 05/16/24 05:15 101.1 F H 80 27 H 95 05/16/24 05:00 83 24 87/44 100 05/16/24 04:45 76 23 99 05/16/24 04:30 77 20 88/50 98 05/16/24 04:15 77 18 97 05/16/24 04:00 100.8 F H 75 19 101/50 97 40 05/16/24 03:45 75 19 97 05/16/24 03:30 77 21 97 05/16/24 03:15 75 21 95/50 100 05/16/24 03:00 73 18 91/50 99 05/16/24 02:45 73 19 99 05/16/24 02:30 72 18 86/48 97 05/16/24 02:15 73 18 86/48 97 05/16/24 02:00 74 19 84/42 98 05/16/24 01:45 75 19 98 05/16/24 01:30 76 22 98 05/16/24 01:15 77 23 99 05/16/24 01:11 40 05/16/24 01:03 40 05/16/24 01:00 77 27 H 99 05/16/24 00:45 78 22 111/56 100 05/16/24 00:30 78 26 H 100 05/16/24 00:15 78 27 H 100 05/16/24 00:04 77 22 98 05/16/24 00:00 100.0 F H 77 23 97 40 05/15/24 23:45 78 20 88/50 97 05/15/24 23:30 84 22 102/57 95 05/15/24 23:20 40 05/15/24 23:15 87 30 H 100 05/15/24 23:00 84 24 102/57 97 05/15/24 22:45 86 20 99 05/15/24 22:30 86 20 99 05/15/24 22:15 98.8 F 87 19 99 05/15/24 22:00 98.4 F 85 20 99 40 05/15/24 21:45 84 22 99 05/15/24 21:30 85 20 100 05/15/24 21:15 86 19 100 05/15/24 21:00 97.7 F 84 19 100 40 05/15/24 20:51 84 05/15/24 20:45 82 12 100 05/15/24 20:41 82 05/15/24 20:35 50 05/15/24 20:30 82 21 100 05/15/24 20:15 80 16 100 05/15/24 20:00 96.8 F L 78 20 100 50 05/15/24 19:45 85 18 100 05/15/24 19:30 77 18 100 05/15/24 19:15 76 16 05/15/24 19:00 76 19 05/15/24 18:53 50 05/15/24 18:45 77 19 100 05/15/24 18:30 76 19 100 05/15/24 18:15 77 18 100 05/15/24 18:00 95.9 F L 76 15 100 60 05/15/24 17:45 75 14 100 05/15/24 17:30 73 12 100 05/15/24 17:24 76 05/15/24 17:17 74 07/17/24 17:15 74 12 100 60 05/15/24 17:14 60 05/15/24 17:00 94.8 F L 77 16 100 05/15/24 16:45 78 17 100 05/15/24 16:35 94.6 F L 76 13 100 100 05/15/24 16:30 12 100 Intake and Output 05/15/24 05/16/24 05/16/24 22:59 06:59 14:59 Intake Total 3134.977 9661.614 423.523 Output Total 1411 2197 275 Balance -194.751 -1002.386 148.523 Intake: IV 641.570 748 218 ACETAMINOPHEN IV (For NPO 100 100 ) 1,000 mg In Empty Bag 1 bag @ 400 mls/hr IVPB Q6HR [facility] Rx#:[id number] Albumin Human 5% 250 ml 250 In Empty Bag 1 bag @ 250 mls/hr IVPB Q1HR PRN Rx#: [id number] Magnesium Sulfate-D5w Pmx 100 1 gm In Dextrose/Water 1 100ml.bag @ 100 mls/hr IVPB ONCE ONE Rx#: [id number] Milrinone-D5w Pmx 20 mg 27.570 In Dextrose/Water 1 100ml .bag @ 0.25 MCG/KG/MIN 7. 35 mls/hr IV .[id number] [facility] Rx#:[id number] Pressure Bag (0.9 sodium 39 48 18 chloride) Sodium Chloride 0.9% 1, 325 300 150 000 ml @ 50 mls/hr IV . Q20H [facility] Rx#:[id number] ceFAZolin 2 gm In Sodium 50 50 50 Chloride 0.9% 50 ml @ Per Protocol 100 mls/hr IVPB ONCE ONE Rx#:[id number] Intake, IV Titration 177.679 446.614 55.523 Amount Dexmedetomidine/0.9% NaCl 60.598 3.43 (Pmx) 400 mcg In Empty Bag 1 bag @ Titrate IV . Q0M [facility] Rx#:[id number] Insulin Regular 100 unit 1.582 In Sodium Chloride 0.9% 100 ml @ Per Protocol IV .Q0M [facility] Rx#:[id number] Milrinone-D5w Pmx 20 mg 53.287 46.713 In Dextrose/Water 1 100ml .bag @ 0.25 MCG/KG/MIN 7. 35 mls/hr IV .[id number] [facility] Rx#:[id number] Norepinephrine 4 mg In 36.094 268.150 15.931 Sodium Chloride 0.9% 250 ml @ 0.03 MCG/KG/MIN 11. 201 mls/hr IV .[id number] [facility] Rx#:[id number] propofoL 1,000 mg In 88.298 69.571 36.162 Empty Bag 1 bag @ Titrate IV .Q0M [facility] Rx#: [id number] Oral 90 Blood Product 397 Ffp 24 Cpd Unit 302 [id number] Pooled Cryoprecipitate 95 Unit [id number] Other 60 Output: Chest Tube Drainage 466 302 60 Left Anterior Chest 154 62 0 Left Posterior Chest 312 240 60 Gastric Drainage 250 Drainage 70 Right Arm 35 Right Calf 35 Urine 875 1645 215 Other: Voiding Method Indwelling Catheter Indwelling Catheter Weight 102 kg ABP, PAP, CO, CI - Last 8 Hours Arterial Blood Pressure 100/45 Arterial Blood Pressure 133/58 Arterial Blood Pressure 111/48 Arterial Blood Pressure 102/45 Arterial Blood Pressure 104/44 Arterial Blood Pressure 105/43 Arterial Blood Pressure 121/52 Arterial Blood Pressure 96/41 Arterial Blood Pressure 98/42 Arterial Blood Pressure 95/41 Arterial Blood Pressure 38/36 Arterial Blood Pressure 103/42 Arterial Blood Pressure 96/41 Arterial Blood Pressure 105/43 Arterial Blood Pressure 107/43 Arterial Blood Pressure 118/53 Arterial Blood Pressure 120/65 Arterial Blood Pressure 65/54 Arterial Blood Pressure 80/37 Arterial Blood Pressure 85/38 Arterial Blood Pressure 91/40 Arterial Blood Pressure 97/41 Arterial Blood Pressure 92/39 Arterial Blood Pressure 92/40 Arterial Blood Pressure 75/36 Arterial Blood Pressure 79/41 Arterial Blood Pressure 70/37 Results 05/16/24 05:56 05/16/24 05:56 Cardiac Enzymes 05/15/24 05/16/24 05/16/24 Range/Units 16:29 02:25 05:56 AST 36 42 47 (17-59) U/L Coagulation 05/15/24 05/15/24 Range/Units 14:47 16:29 PT 15.6 H 13.9 H (10.0-12.5) sec APTT 31.9 H 27.8 (22.0-30.0) sec CBC 05/15/24 05/15/24 05/15/24 Range/Units 14:47 16:29 19:40 WBC 15.9 H 7.2 5.9 (3.8-10.6) k/uL RBC 3.23 L 3.40 L 3.50 L (4.30-5.90) m/uL Hgb 8.9 L D 9.6 L 9.7 L (13.0-17.5) gm/dL Hct 28.2 L 29.4 L 30.5 L (39.0-53.0) % Plt Count 121 L 81 L 78 L (150-450) k/uL 05/16/24 05/16/24 Range/Units 02:25 05:56 WBC 8.3 9.0 (3.8-10.6) k/uL RBC 3.55 L 3.54 L (4.30-5.90) m/uL Hgb 9.7 L 10.0 L (13.0-17.5) gm/dL Hct 30.5 L 29.9 L (39.0-53.0) % Plt Count 118 L D 105 L (150-450) k/uL Comprehensive Metabolic Panel 05/15/24 05/16/24 05/16/24 Range/Units 16:29 02:25 05:56 Sodium 137 135 L 136 L (137-145) mmol/L Potassium 4.0 4.2 4.2 (3.5-5.1) mmol/L Chloride 108 H 106 106 (98-107) mmol/L Carbon Dioxide 19 L 22 24 (22-30) mmol/L BUN 15 16 16 (9-20) mg/dL Creatinine 0.72 0.88 0.94 (0.66-1.25) mg/dL Glucose 108 H 99 102 H (74-99) mg/dL Calcium 9.4 8.3 L 8.6 (8.4-10.2) mg/dL AST 36 42 47 (17-59) U/L ALT 10 11 11 (4-49) U/L Alkaline Phosphatase 61 54 57 (38-126) U/L Total Protein 4.8 L 5.0 L 5.2 L (6.3-8.2) g/dL Albumin 2.8 L 2.9 L 3.0 L (3.5-5.0) g/dL Current Medications Generic Name Dose Route Start Last Admin Trade Name Freq PRN Reason Stop Dose Admin Albuterol/Ipratropium 3 ml 05/15/24 14:38 Ipratropium-Albuterol 3 Ml Neb INHALATION RT-Q2H PRN Shortness Of Breath Or Wheezing Albuterol/Ipratropium 3 ml 05/16/24 08:00 05/16/24 08:48 Ipratropium-Albuterol 3 Ml Neb INHALATION 3 ml RT-Q4H [facility] Administration Aspirin 81 mg 05/16/24 09:00 05/16/24 08:09 Aspirin 81 Mg PO 81 mg DAILY [facility] Administration Atorvastatin Calcium 40 mg 05/16/24 09:00 05/16/24 08:09 Atorvastatin 40 Mg Tab PO 40 mg DAILY [facility] Administration Benzocaine/Menthol 1 each 05/15/24 14:38 Benzocaine/Menthol Lozeng 1 Each Lozenge MUCOUS MEM Q2H PRN Sore Throat Bisacodyl 10 mg 05/16/24 09:00 Bisacodyl 10 Mg Supp RECTAL DAILY PRN Constipation Budesonide 1 mg 05/16/24 08:00 05/16/24 08:48 Budesonide 1 Mg/2 Ml Nebu INHALATION 1 mg RT-BID [facility] Administration Clopidogrel Bisulfate 75 mg 05/16/24 09:00 05/16/24 08:09 Clopidogrel 75 Mg Tab PO 75 mg DAILY [facility] Administration Cyclobenzaprine HCl 10 mg 05/15/24 16:00 05/16/24 08:09 Cyclobenzaprine 10 Mg Tab PO 10 mg TID [facility] Administration Dextrose/Water 25 ml 05/15/24 14:38 Dextrose 50% Syringe 50 Ml IVP PER PROTOCOL PRN Hypoglycemia Protocol Dextrose/Water 50 ml 05/15/24 14:38 Dextrose 50% Syringe 50 Ml IVP PER PROTOCOL PRN Hypoglycemia Protocol Ezetimibe 10 mg 05/16/24 09:00 05/16/24 08:09 Ezetimibe 10 Mg Tab PO 10 mg DAILY [facility] Administration Ergocalciferol 1,250 mcg 06/14/24 09:00 Ergocalciferol 1,250 Mcg (50,000 Iu) Capsule PO Q30D [facility] Fluticasone Propionate 1 spray 05/15/24 14:38 Fluticasone Nasal 50mcg/Thor 16gm Btl EA NOSTRIL BID PRN Allergy Symptoms Formoterol Fumarate 20 mcg 05/16/24 08:00 05/16/24 08:48 Formoterol Fumarate 20 Mcg/2 Ml Nebu INHALATION 20 mcg RT-BID [facility] Administration Gabapentin 100 mg 05/15/24 16:00 05/16/24 07:52 Gabapentin 100 Mg Cap PO Not Given TID [facility] Heparin Sodium (Porcine) 5,000 unit 05/15/24 16:00 05/16/24 07:50 Heparin Sodium,Porcine 5,000 Unit/Ml 1 Ml Vial SQ 5,000 unit Q8HR [facility] Administration Hydralazine HCl 10 mg 05/15/24 14:38 Hydralazine Hcl 20 Mg/Ml 1 Ml Vial IVP Q1H PRN Blood Pressure - High Amiodarone HCl 150 mg/ 103 mls @ 618 mls/hr 05/15/24 14:38 Dextrose/Water IV .Q10M PRN A.FIB/FLUTTER Protocol Amiodarone HCl 360 mg/ 207.2 mls @ 34.533 mls/hr 05/15/24 14:38 Dextrose/Water IV .Q6H PRN A.FIB/FLUTTER Protocol 1 MG/MIN Amiodarone HCl 450 mg/ 250 mls @ 16.667 mls/hr 05/15/24 14:38 Dextrose/Water IV .Q15H PRN A.FIB/FLUTTER Protocol 0.5 MG/MIN Albumin Human 250 ml/ IV 250 mls @ 250 mls/hr 05/15/24 14:38 05/16/24 01:25 Solution IVPB 05/17/24 14:37 250 mls/hr Q1HR PRN Administration For Volume Protocol Dexmedetomidine HCl 400 mcg/ 100 mls @ 0 mls/hr 05/15/24 14:38 05/16/24 09:30 IV Solution IV 05/16/24 14:39 0.5 mcg/kg/hr .Q0M [facility] 12.25 mls/hr Titration Protocol Titrate Propofol 1,000 mg/ IV Solution 100 mls @ 0 mls/hr 05/15/24 14:38 05/16/24 08:30 IV 0 mcg/kg/min .Q0M [facility] 0 mls/hr Titration Protocol Titrate Insulin Human Regular 100 unit 101 mls @ 0 mls/hr 05/15/24 16:45 05/16/24 00:01 / Sodium Chloride IV 0 units/hr .Q0M [facility] 0 mls/hr Titration Protocol Per Protocol Sodium Chloride 1,000 mls @ 50 mls/hr 05/15/24 14:38 05/15/24 16:30 Saline 0.9% IV 50 mls/hr .Q20H [facility] Administration Milrinone Lactate/Dextrose 20 100 mls @ 7.35 mls/hr 05/15/24 16:15 05/16/24 05:49 mg/ IV Solution IV Not Given .[id number] [facility] 0.25 MCG/KG/MIN Norepinephrine Bitartrate 4 mg 254 mls @ 11.201 mls/hr 05/15/24 16:45 4 07:35 / Sodium Chloride IV 0.03 mcg/kg/min .[id number] [facility] 11.201 mls/hr Titration Protocol 0.03 MCG/KG/MIN Vasopressin 20 unit/ Sodium 51 mls @ 6.12 mls/hr 05/16/24 01:30 05/16/24 01:42 Chloride IV 0.04 units/min .[id number] [facility] 6.12 mls/hr Administration Protocol 0.04 UNITS/MIN Magnesium Hydroxide 2,400 mg 05/16/24 09:00 Magnesium Hydroxide 2,400 Mg/30 Ml Cup PO BID PRN Constipation Metoclopramide HCl 10 mg 05/15/24 14:38 Metoclopramide 5 Mg/Ml 2 Ml Vial IVP Q4H PRN Nausea And Vomiting Miscellaneous Information 1 each 05/15/24 14:38 Potassium Replacement Protocol 1 Each Misc MISCELLANE DAILY PRN Per Protocol Protocol Miscellaneous Information 1 each 05/15/24 17:39 Magnesium Replacement Protocol 1 Each Misc MISCELLANE DAILY PRN Per Protocol Protocol Ondansetron HCl 4 mg 05/15/24 14:38 Ondansetron 4 Mg/2 Ml Vial IVP Q6HR PRN Nausea And Vomiting Oxycodone HCl 5 mg 05/15/24 14:38 05/15/24 21:08 Oxycodone Hcl 5 Mg Tab PO 5 mg Q4HR PRN Administration Moderate Pain (Scale 4 to 6) Oxycodone HCl 10 mg 05/15/24 14:38 05/16/24 08:38 Oxycodone Hcl 5 Mg Tab PO 10 mg Q4HR PRN Administration Severe Pain (Scale 7 to 10) Pantoprazole Sodium 40 mg 05/16/24 09:00 05/16/24 08:10 Pantoprazole 40 Mg/10 Ml Vial IVP 40 mg DAILY [facility] Administration Senna/Docusate Sodium 2 each 05/15/24 21:00 05/15/24 21:06 Sennosides-Docusate Sodium 1 Each Tab PO 2 each HS [facility] Administration Sodium Bicarbonate 650 mg 05/15/24 16:00 05/16/24 08:09 Sodium Bicarbonate Tab 650 Mg Tab PO 650 mg TID [facility] Administration Sodium Chloride 10 ml 05/15/24 21:00 05/16/24 08:11 Sodium Chloride 0.9% Flush 10 Ml Syringe IV 10 ml BID [facility] Administration Intake and Output 05/15/24 05/16/24 05/16/24 22:59 06:59 14:59 Intake Total 9021.862 9363.614 423.523 Output Total 1411 2197 275 Balance -194.751 -1002.386 148.523 Intake: IV 641.570 748 218 ACETAMINOPHEN IV (For NPO 100 100 ) 1,000 mg In Empty Bag 1 bag @ 400 mls/hr IVPB Q6HR [facility] Rx#:[id number] Albumin Human 5% 250 ml 250 In Empty Bag 1 bag @ 250 mls/hr IVPB Q1HR [facility]N Rx#: [id number] Magnesium Sulfate-D5w Pmx 100 1 gm In Dextrose/Water 1 100ml.bag @ 100 mls/hr IVPB ONCE ONE Rx#: [id number] Milrinone-D5w Pmx 20 mg 27.570 In Dextrose/Water 1 100ml .bag @ 0.25 MCG/KG/MIN 7. 35 mls/hr IV .[id number] [facility] Rx#:[id number] Pressure Bag (0.9 sodium 39 48 18 chloride) Sodium Chloride 0.9% 1, 325 300 150 000 ml @ 50 mls/hr IV . Q20H [facility] Rx#:[id number] ceFAZolin 2 gm In Sodium 50 50 50 Chloride 0.9% 50 ml @ Per Protocol 100 mls/hr IVPB ONCE ONE Rx#:[id number] Intake, IV Titration 177.679 446.614 55.523 Amount Dexmedetomidine/0.9% NaCl 60.598 3.43 (Pmx) 400 mcg In Empty Bag 1 bag @ Titrate IV . Q0M [facility] Rx#:[id number] Insulin Regular 100 unit 1.582 In Sodium Chloride 0.9% 100 ml @ Per Protocol IV .Q0M [facility] Rx#:[id number] Milrinone-D5w Pmx 20 mg 53.287 46.713 In Dextrose/Water 1 100ml .bag @ 0.25 MCG/KG/MIN 7. 35 mls/hr IV .[id number] [facility] Rx#:[id number] Norepinephrine 4 mg In 36.094 268.150 15.931 Sodium Chloride 0.9% 250 ml @ 0.03 MCG/KG/MIN 11. 201 mls/hr IV .[id number] [facility] Rx#:[id number] propofoL 1,000 mg In 88.298 69.571 36.162 Empty Bag 1 bag @ Titrate IV .Q0M [facility] Rx#: [id number] Oral 90 Blood Product 397 Ffp 24 Cpd Unit 302 [id number] Pooled Cryoprecipitate 95 Unit [id number] Other 60 Output: Chest Tube Drainage 466 302 60 Left Anterior Chest 154 62 0 Left Posterior Chest 312 240 60 Gastric Drainage 250 Drainage 70 Right Arm 35 Right Calf 35 Urine 875 1645 215 Other: Voiding Method Indwelling Catheter Indwelling Catheter Weight 102 kg 05/16/24 05:56 05/16/24 05:56
[2024-05-16 10:22] LABS: Glucose,Whole Blood 117 mg/dL (70-110)
--- NOTE | 2024-05-16 12:42 | CDI ---
Documentation Clarification Form Date: 05/16/2024 12:15:05 PM From: Sheryl Renee RN CCDS Phone: [phone] Admit Date: 05/15/2024 06:27:00 AM Patient Name: Israel Simmons Visit Number: [id number] Discharge Date: ATTENTION: The Clinical Documentation Specialists (CDI) and [facility] Coding Staff appreciate your assistance in clarifying documentation. Please respond to the clarification below the line at the bottom and electronically sign. The CDI & [facility] Coding staff will review the response and follow-up if needed. Please note: Queries are made part of the Legal Health Record. If you have any questions, please contact the author of this message via ITS. Leticia Rascon NPC, There is documentation of CHF with EF25%, 05/15 in Surgical note. Additional clarification of the acuity of the condition is requested. History/Risk Factors: 69 year old male presents to [facility] for elective Redo of Coronary Artery Bypass Grafting x 2. Medical History: CHF, Ischemic cardiomyopathy EF 25%. HTN, HLD, chronic hypoxic respiratory failure on home oxygen, atrial fib. 05/16 Cardiology consult. Clinical Indicators: VSS: 05/15; B/P 102/57 HR 84 rr 22 sPo2 95% fIo2 40 Mechanical ventilator ECHO, 05/25: lvef 20 25%. Severely dilated LV cavity size Severely reduced global LV systolic function. Apical, periapical hypokinesia. RV appears diluted with moderately reduced systolic function. Moderate mitral regurgitation. Mild to moderate tricuspid regurgitation HP,05/15: Acute congestive heart failure, chronic congestive heart failure. Treatment:05/15 Lopressor 12.5mg PO x 1; Lasix 20mg IV x 1, 05/16 Vasopressin 51ml@ 6.12 ml/hr IV. Can you please clarify the acuity of the Systolic Heart Failure? [x ] Chronic Systolic Heart Failure [ ] Acute and Chronic Systolic Heart Failure [ ] Other, please specify [ ] Unable to determine As documented in the [facility] progress note patient has chronic systolic heart failure. MTDD
[2024-05-16 12:48] LABS: Glucose,Whole Blood 125 mg/dL (70-110)
[2024-05-16 15:19] LABS: Glucose,Whole Blood 122 mg/dL (70-110)
[2024-05-16 15:24] LABS: ABG Base Excess -0.5 mmol/L; ABG HCO3 24 mmol/L (21-25); ABG Oxygen Saturation 97.8 % (94-97); ABG PCO2 37 mmHg (35-45); ABG PH 7.42 (7.35-7.45); ABG PO2 88 mmHg (83-108); ABG TCO2 25 mmol/L (19-24); Allen Test Performed? Yes
[2024-05-16] MEDS ORDERED: DEXTROSE 50% SYRINGE 50 ML IVP PRN ×2 (16:58)
[2024-05-16] MEDS: INSULIN ASPART (NovoLOG) 100 UNIT/ML VIAL SQ SCH (18:08)
[2024-05-16 18:09] LABS: Glucose,Whole Blood 119 mg/dL (70-110)
[2024-05-16 20:31] LABS: Glucose,Whole Blood 117 mg/dL (70-110)
[2024-05-16] MEDS: LORazepam 2 MG/ML INJ IV PRN (22:40)
[2024-05-16] MEDS: BENZOCAINE/MENTHOL LOZENG 1 EACH LOZENGE MUCOUS MEM PRN (22:43)
[2024-05-17 04:39] LABS: Anisocytosis Slight; Basophils % (A) 0 %; Eosinophils % (A) 0 %; HCT 29.4 % (39.0-53.0); HGB 9.2 gm/dL (13.0-17.5); Hypochromasia Marked; Lymphocytes # (A) 0.9 k/uL (1.0-4.8); Lymphocytes % (A) 9 %; MCHC 31.1 g/dL (31.0-37.0); MCV 86.8 fL (80.0-100.0); Mean Platelet Volume 10.5; Monocytes # (A) 0.7 k/uL (0-1.0); Monocytes % (A) 7 %; Neutrophils # (A) 8.6 k/uL (1.3-7.7); Neutrophils % (A) 82 %; Poikilocytosis Slight; RBC 3.39 m/uL (4.30-5.90); RDW 16.5 % (11.5-15.5); WBC 10.5 k/uL (3.8-10.6)
[2024-05-17 04:50] LABS: Ionized Calcium 4.7 mg/dL (4.5-5.3)
[2024-05-17 05:00] LABS: ALT 11 U/L (4-49); AST 44 U/L (17-59); African American GFR (CKD) >90 (>60 ml/min/1.73 sqM); Albumin 3.2 g/dL (3.5-5.0); Alkaline Phosphatase 55 U/L (38-126); Anion Gap 9 mmol/L; Blood Urea Nitrogen 17 mg/dL (9-20); Calcium 8.3 mg/dL (8.4-10.2); Carbon Dioxide 21 mmol/L (22-30); Chloride 103 mmol/L (98-107); Glucose 118 mg/dL (74-99); Magnesium 1.9 mg/dL (1.6-2.3); Non-African American GFR(CKD) >90 (>60 ml/min/1.73 sqM); Potassium 4.2 mmol/L (3.5-5.1); Sodium 133 mmol/L (137-145); Total Protein 5.6 g/dL (6.3-8.2)
[2024-05-17] MEDS ORDERED: Magnesium Replacement Protocol 1 EACH MISC MISCELLANE PRN (07:04)
[2024-05-17 07:05] LABS: Platelet Count 88 k/uL (150-450)
[2024-05-17] MEDS: MAGNESIUM SULFATE-D5W PMX 1 GM in DEXTROSE/WATER 1 100ML.BAG IVPB ONE (07:08)
[2024-05-17] MEDS ORDERED: ACETAMINOPHEN TAB 500 MG TAB PO PRN (07:42)
--- NOTE | 2024-05-17 07:48 | XR ---
EXAMINATION TYPE: XR chest 1V portable DATE OF EXAM: 05/17/2024 Comparison: 05/16/2024 Clinical History: 69-year-old male Post Operative Cardiac Surgery Findings: Right IJ CVC tip in the right atrium. There are 2 left-sided chest tubes in place. No appreciable pne umothorax. Worsening bilateral lung opacities, right greater than left. Median sternotomy wires. Impression: 1. 2 left-sided chest tubes. No appreciable pneumothorax. 2. Worsening bilateral lung opacities, right greater than left. Suspect combination of worsening airs pace disease and pleural effusion.
--- NOTE | 2024-05-17 09:45 | P.PN ---
Subjective Progress Note Date: 05/17/24 The patient is a 69-year-old male who follows in the office with Dr. Wiggins. He was referred for redo coronary bypass as he has undergone multiple stents to his SVG to LAD as well as having a chronically occluded RCA. The patient underwent redo off-pump coronary bypass yesterday with Dr. Pool.over the last 24 hours patient has been weaned from vasopressors, however remains on milrinone. He has been successfully extubated and is now up to the recliner chair. He does report having pain this morning and appears quite uncomfortable. He denies any shortness of breath or difficulty breathing. GENERAL: Well-appearing, well-nourished and in no acute distress. NECK: Supple without JVD or thyromegaly. LUNGS: Breath sounds diminished to auscultation bilaterally. Respiration equal and unlabored, shallow breathing. No wheezes, rales or rhonchi. HEART: Regular rate and rhythm without murmurs, rubs or gallops. S1 and S2 heard. heart hugger in place. EXTREMITIES: Normal range of motion, no edema. No clubbing or cyanosis. Peripheral pulses intact and strong. bilateral compression socks TELEMETRY: sinus rhythm overnight. No arrhythmias LABS: WBC 10.5, hemoglobin 9.2, hematocrit 29.4, platelet 88, sodium 133, potassium 4.2, BUN 17, creatinine 0.83, AST 44, ALT 11 IMPRESSION: Multivessel coronary artery disease with prior CABG Redo CABG x 2 Ischemic cardiomyopathy, EF 25% Moderate aortic regurgitation Hypertension Hyperlipidemia History of hypoxic respiratory failure on home oxygen History of ventricular fibrillation during cardiac catheterization History of chronic congestive heart failure, systolic PLAN: continue supportive treatment Discussed the importance of pain control in order to complete deep breathing exercises Further recommendations to be based upon clinical course I am dictating on behalf of Dr Andrew Chacon's history/physical and assessment/plan. Objective - Vital Signs Vital signs: Vital Signs Temp 99.0 F 05/17/24 04:00 Pulse 95 05/17/24 08:00 Resp 30 H 05/17/24 08:00 BP 118/57 05/17/24 07:00 Pulse Ox 99 05/17/24 08:00 FiO2 30 05/16/24 18:30 Intake & Output 05/16/24 05/17/24 05/17/24 18:59 06:59 18:59 Intake Total 6494.391 6113.486 46 Output Total 905 750 70 Balance 755.312 358.486 -24 Weight 102 kg 102.4 kg Intake: IV 832 598 46 Albumin Human 5% 250 ml 250 In Empty Bag 1 bag @ 250 mls/hr IVPB Q1HR PRN Rx#: [id number] Pressure Bag (0.9 sodium 72 78 6 chloride) Sodium Chloride 0.9% 1, 460 520 40 000 ml @ 20 mls/hr IV . Q24H [facility] Rx#:[id number] ceFAZolin 2 gm In Sodium 50 Chloride 0.9% 50 ml @ Per Protocol 100 mls/hr IVPB ONCE ONE Rx#:[id number] Intake, IV Titration 468.312 60.486 Amount Dexmedetomidine/0.9% NaCl 40.18 (Pmx) 400 mcg In Empty Bag 1 bag @ Titrate IV . Q0M [facility] Rx#:[id number] Milrinone-D5w Pmx 20 mg 91.875 In Dextrose/Water 1 100ml .bag @ 0.25 MCG/KG/MIN 7. 35 mls/hr IV .[id number] [facility] Rx#:[id number] Norepinephrine 4 mg In 188.908 Sodium Chloride 0.9% 250 ml @ 0.03 MCG/KG/MIN 11. 201 mls/hr IV .[id number] [facility] Rx#:[id number] Vasopressin 20 unit In 77.622 60.486 Sodium Chloride 0.9% 50 ml @ 0.04 UNITS/MIN 6.12 mls/hr IV .Q8H20M [facility] Rx# :[id number] propofoL 1,000 mg In 69.727 Empty Bag 1 bag @ Titrate IV .Q0M [facility] Rx#: [id number] Oral 240 450 Other 120 Output: Chest Tube Drainage 175 320 20 Left Anterior Chest 5 120 0 Left Posterior Chest 170 200 20 Gastric Drainage 150 Urine 580 430 50 Other: Voiding Method Indwelling Catheter Indwelling Catheter ABP, PAP, CO, CI - Last Documented Arterial Blood Pressure 109/42 - Labs CBC & Chem 7: 05/17/24 04:20 05/17/24 04:20 Labs: Abnormal Lab Results - Last 24 Hours (Table) 05/16/24 05/16/24 05/16/24 Range/Units 10:20 12:47 15:16 RBC (4.30-5.90) m/uL Hgb (13.0-17.5) gm/dL Hct (39.0-53.0) % RDW (11.5-15.5) % Plt Count (150-450) k/uL Neutrophils # (1.3-7.7) k/uL Lymphocytes # (1.0-4.8) k/uL ABG Total CO2 (19-24) mmol/L ABG O2 Saturation (94-97) % ABG Lactic Acid (0.5-1.6) mmol/L Sodium (137-145) mmol/L Carbon Dioxide (22-30) mmol/L Glucose (74-99) mg/dL POC Glucose (mg/dL) 117 H 125 H 122 H (70-110) mg/dL Calcium (8.4-10.2) mg/dL Total Bilirubin (0.2-1.3) mg/dL Total Protein (6.3-8.2) g/dL Albumin (3.5-5.0) g/dL 05/16/24 05/16/24 05/16/24 Range/Units 15:18 15:21 18:05 RBC (4.30-5.90) m/uL Hgb (13.0-17.5) gm/dL Hct (39.0-53.0) % RDW (11.5-15.5) % Plt Count (150-450) k/uL Neutrophils # (1.3-7.7) k/uL Lymphocytes # (1.0-4.8) k/uL ABG Total CO2 25 H (19-24) mmol/L ABG O2 Saturation 97.8 H (94-97) % ABG Lactic Acid 1.8 H (0.5-1.6) mmol/L Sodium (137-145) mmol/L Carbon Dioxide (22-30) mmol/L Glucose (74-99) mg/dL POC Glucose (mg/dL) 119 H (70-110) mg/dL Calcium (8.4-10.2) mg/dL Total Bilirubin (0.2-1.3) mg/dL Total Protein (6.3-8.2) g/dL Albumin (3.5-5.0) g/dL 05/16/24 05/17/24 05/17/24 Range/Units 20:29 04:20 04:20 RBC 3.39 L (4.30-5.90) m/uL Hgb 9.2 L (13.0-17.5) gm/dL Hct 29.4 L (39.0-53.0) % RDW 16.5 H (11.5-15.5) % Plt Count 88 L (150-450) k/uL Neutrophils # 8.6 H (1.3-7.7) k/uL Lymphocytes # 0.9 L (1.0-4.8) k/uL ABG Total CO2 (19-24) mmol/L ABG O2 Saturation (94-97) % ABG Lactic Acid (0.5-1.6) mmol/L Sodium 133 L (137-145) mmol/L Carbon Dioxide 21 L (22-30) mmol/L Glucose 118 H (74-99) mg/dL POC Glucose (mg/dL) 117 H (70-110) mg/dL Calcium 8.3 L (8.4-10.2) mg/dL Total Bilirubin 2.0 H (0.2-1.3) mg/dL Total Protein 5.6 L (6.3-8.2) g/dL Albumin 3.2 L (3.5-5.0) g/dL
--- NOTE | 2024-05-17 10:00 | P.PN ---
Subjective Progress Note Date: 05/17/24 Principal diagnosis: Triple-vessel coronary artery disease, unstable Angina. History of coronary artery disease with previous myocardial infarction and multiple stents as well as thrombectomy on Eliquis for anticoagulation, most recent PCI was to the SVG in 10/2022, as well as coronary artery bypass graft surgery approximately 20 years ago, ischemic cardiomyopathy, chronic systolic heart failure with reduced ejection fraction, hypertension, hyperlipidemia, left internal carotid artery stenosis, chronic kidney disease, chronic anemia, chronic ongoing tobacco use, severe COPD on home oxygen 2 L/min, obstructive sleep apnea, chronic back pain with history of back surgery, and family history of heart disease. POD #2 redo off pump coronary artery bypass grafting x 2 - left thoracotomy approach, endoscopic right radial and right greater saphenous vein harvest, graft flow measurements using the Medi-Stim flow meter system, cryo-ablation of intercostal nerves 6-9, trans-esophageal echo Intra and postoperative acute blood loss anemia and thrombocytopenia, expected given hemodilution as well as preoperative use of Plavix and Eliquis Hypotension requiring IV pressor use, expected given blood loss The patient was seen and examined this morning sitting up in a recliner in the intensive care unit in no acute distress but is not taking very deep breaths. He was extubated to bipap yesterday at 15:49. Currently on 2 LPM NC with oxygen saturations in the mid 90s. Remains in sinus rhythm, hemodynamically stable off levo since last evening, currently off vaso, remains on primacor at low dose. Chest x-ray, labs reviewed. Right internal jugular Cordis, left radial arterial line, left-sided anterior and posterior chest tubes present. Patient underwent right sided thoracentesis by Dr. Nugent this morning with removal of 2 L straw colored fluid. Objective - Vital Signs Vital signs: Vital Signs Temp 99.0 F 05/17/24 04:00 Pulse 95 05/17/24 08:00 Resp 30 H 05/17/24 08:00 BP 118/57 05/17/24 07:00 Pulse Ox 99 05/17/24 08:00 FiO2 30 05/16/24 18:30 Intake & Output 05/16/24 05/17/24 05/17/24 18:59 06:59 18:59 Intake Total 0130.326 9033.486 46 Output Total 905 750 70 Balance 755.312 358.486 -24 Weight 102 kg 102.4 kg Intake: IV 832 598 46 Albumin Human 5% 250 ml 250 In Empty Bag 1 bag @ 250 mls/hr IVPB Q1HR PRN Rx#: [id number] Pressure Bag (0.9 sodium 72 78 6 chloride) Sodium Chloride 0.9% 1, 460 520 40 000 ml @ 20 mls/hr IV . Q24H [facility] Rx#:[id number] ceFAZolin 2 gm In Sodium 50 Chloride 0.9% 50 ml @ Per Protocol 100 mls/hr IVPB ONCE ONE Rx#:[id number] Intake, IV Titration 468.312 60.486 Amount Dexmedetomidine/0.9% NaCl 40.18 (Pmx) 400 mcg In Empty Bag 1 bag @ Titrate IV . Q0M [facility] Rx#:[id number] Milrinone-D5w Pmx 20 mg 91.875 In Dextrose/Water 1 100ml .bag @ 0.25 MCG/KG/MIN 7. 35 mls/hr IV .[id number] [facility] Rx#:[id number] Norepinephrine 4 mg In 188.908 Sodium Chloride 0.9% 250 ml @ 0.03 MCG/KG/MIN 11. 201 mls/hr IV .[id number] [facility] Rx#:[id number] Vasopressin 20 unit In 77.622 60.486 Sodium Chloride 0.9% 50 ml @ 0.04 UNITS/MIN 6.12 mls/hr IV .Q8H20M [facility] Rx# :[id number] propofoL 1,000 mg In 69.727 Empty Bag 1 bag @ Titrate IV .Q0M [facility] Rx#: [id number] Oral 240 450 Other 120 Output: Chest Tube Drainage 175 320 20 Left Anterior Chest 5 120 0 Left Posterior Chest 170 200 20 Gastric Drainage 150 Urine 580 430 50 Other: Voiding Method Indwelling Catheter Indwelling Catheter ABP, PAP, CO, CI - Last Documented Arterial Blood Pressure 109/42 - Exam CONSTITUTIONAL: Appears somewhat comfortable, cooperative, no acute distress RESPIRATORY: Lungs sounds diminished in the bases bilaterally, right greater than left. Respirations even, slightly labored. Currently on 4 L nasal cannu la with oxygen saturation 99 %. Able to achieve 500 mL on incentive spirometry. Weak cough. CARDIOVASCULAR: S1, S2 present. Regular rate and rhythm, sinus rhythm to sinus tach on telemetry. Sternum stable. Palpable peripheral pulses bilaterally. Trace generalized edema present. No calf pain or tenderness noted. Heart hugger in place with patient occasionally demonstrating appropriate use. Antiembolism stockings, SCDs present. GASTROINTESTINAL: Abdomen soft, nontender, nondistended. Active bowel sounds present 4 quadrants. Tolerating minimal clear liquids. Denies flatus GENITOURINARY: Mcneill present draining clear yellow urine. Output 35-50 mL/hr overnight, 1050 mL in the last 24 hours INTEGUMENTARY: Skin is warm and dry. Anterior chest incision well approximated and covered with dry intact dressing. Right radial artery as well as right lower extremity EVH site well approximated without redness or drainage. Few small tape calvillo present to left back NEUROLOGIC: Cranial nerves II through XII intact MUSKULOSKELETAL: Able to move all extremities, strength equal bilaterally PSYCHIATRIC: Alert and oriented to person place and time, appropriate affect, intact judgment and insight INVASIVE LINES AND TUBES: Left anterior and posterior pleural chest tubes present and connected to wall suction, no air leaks present. Left anterior chest tube with 70 mL serosanguineous drainage overnight, 110 mL in the last 24 hours. Left posterior pleural chest tube with 130 mL serosanguineous drainage overnight, 340 mL in the last 24 hours. Right internal jugular cordis, left radial arterial line present. Last CVP 8 - Allied health notes Allied health notes reviewed: nursing - Labs CBC & Chem 7: 05/17/24 04:20 05/17/24 04:20 Labs: Abnormal Lab Results - Last 24 Hours (Table) 05/16/24 05/16/24 05/16/24 Range/Units 09:00 10:20 12:47 RBC (4.30-5.90) m/uL Hgb (13.0-17.5) gm/dL Hct (39.0-53.0) % RDW (11.5-15.5) % Plt Count (150-450) k/uL Neutrophils # (1.3-7.7) k/uL Lymphocytes # (1.0-4.8) k/uL ABG Total CO2 (19-24) mmol/L ABG O2 Saturation (94-97) % ABG Lactic Acid (0.5-1.6) mmol/L Sodium (137-145) mmol/L Carbon Dioxide (22-30) mmol/L Glucose (74-99) mg/dL POC Glucose (mg/dL) 117 H 125 H (70-110) mg/dL Plasma Lactic Acid Tomy 2.5 H* (0.7-2.0) mmol/L Calcium (8.4-10.2) mg/dL Total Bilirubin (0.2-1.3) mg/dL Total Protein (6.3-8.2) g/dL Albumin (3.5-5.0) g/dL 05/16/24 05/16/24 05/16/24 Range/Units 15:16 15:18 15:21 RBC (4.30-5.90) m/uL Hgb (13.0-17.5) gm/dL Hct (39.0-53.0) % RDW (11.5-15.5) % Plt Count (150-450) k/uL Neutrophils # (1.3-7.7) k/uL Lymphocytes # (1.0-4.8) k/uL ABG Total CO2 25 H (19-24) mmol/L ABG O2 Saturation 97.8 H (94-97) % ABG Lactic Acid 1.8 H (0.5-1.6) mmol/L Sodium (137-145) mmol/L Carbon Dioxide (22-30) mmol/L Glucose (74-99) mg/dL POC Glucose (mg/dL) 122 H (70-110) mg/dL Plasma Lactic Acid Tomy (0.7-2.0) mmol/L Calcium (8.4-10.2) mg/dL Total Bilirubin (0.2-1.3) mg/dL Total Protein (6.3-8.2) g/dL Albumin (3.5-5.0) g/dL 05/16/24 05/16/24 05/17/24 Range/Units 18:05 20:29 04:20 RBC 3.39 L (4.30-5.90) m/uL Hgb 9.2 L (13.0-17.5) gm/dL Hct 29.4 L (39.0-53.0) % RDW 16.5 H (11.5-15.5) % Plt Count 88 L (150-450) k/uL Neutrophils # 8.6 H (1.3-7.7) k/uL Lymphocytes # 0.9 L (1.0-4.8) k/uL ABG Total CO2 (19-24) mmol/L ABG O2 Saturation (94-97) % ABG Lactic Acid (0.5-1.6) mmol/L Sodium (137-145) mmol/L Carbon Dioxide (22-30) mmol/L Glucose (74-99) mg/dL POC Glucose (mg/dL) 119 H 117 H (70-110) mg/dL Plasma Lactic Acid Tomy (0.7-2.0) mmol/L Calcium (8.4-10.2) mg/dL Total Bilirubin (0.2-1.3) mg/dL Total Protein (6.3-8.2) g/dL Albumin (3.5-5.0) g/dL 05/17/24 Range/Units 04:20 RBC (4.30-5.90) m/uL Hgb (13.0-17.5) gm/dL Hct (39.0-53.0) % RDW (11.5-15.5) % Plt Count (150-450) k/uL Neutrophils # (1.3-7.7) k/uL Lymphocytes # (1.0-4.8) k/uL ABG Total CO2 (19-24) mmol/L ABG O2 Saturation (94-97) % ABG Lactic Acid (0.5-1.6) mmol/L Sodium 133 L (137-145) mmol/L Carbon Dioxide 21 L (22-30) mmol/L Glucose 118 H (74-99) mg/dL POC Glucose (mg/dL) (70-110) mg/dL Plasma Lactic Acid Tomy (0.7-2.0) mmol/L Calcium 8.3 L (8.4-10.2) mg/dL Total Bilirubin 2.0 H (0.2-1.3) mg/dL Total Protein 5.6 L (6.3-8.2) g/dL Albumin 3.2 L (3.5-5.0) g/dL - Imaging and Cardiology Chest x-ray: image reviewed Assessment and Plan Assessment: Triple-vessel coronary artery disease, unstable angina with history of coronary artery disease/previous myocardial infarction/multiple stents/thrombectomy on Eliquis for anticoagulation/CABG 20 years ago, status post two-vessel redo off- pump CABG Right sided chronic effusion, status post thoracentesis by Dr. Nugent with removal of 2L straw colored fluid Ischemic cardiomyopathy/chronic systolic heart failure with reduced ejection fraction, EF 25-30% History of hypertension, currently off pressors Hyperlipidemia, treated with Zetia, patient has muscle pain with statins, cholesterol 121, LDL 52, triglycerides 180 Left internal carotid artery stenosis, 50-79% Chronic kidney disease, stage IIIb, baseline creatinine 1.6-1.7 Chronic anemia Chronic ongoing tobacco use Severe COPD on home oxygen 2 L/min, preoperative FEV1 43% of predicted Obstructive sleep apnea Chronic back pain with history of back surgery Family history of heart disease. Intra and postoperative acute blood loss anemia and thrombocytopenia, expected given hemodilution as well as preoperative use of Plavix and Eliquis Plan: Continue to maximize medical therapy with low-dose aspirin, Plavix, statin, Zetia. Will introduce low dose beta-dorinda and uptitrate as able. Will reinitiate Eliquis at discharge Continue Primacor for another 24 hours, rate decreased Increase activity, ambulate as tolerated. PT/OT/cardiac rehab consulted Wean oxygen as tolerated, encourage incentive spirometry use 10 times every hour while awake, bronchodilators per pulmonology Will monitor daily labs and x-rays, electrolyte replacement per protocol. No further blood transfusion at this point GI/DVT prophylaxis Insulin management per internal medicine. Patient is not diabetic, preoperative hemoglobin A1c 5.5% Pain control per current medication regimen Will discontinue anterior chest tube, continue posterior chest tube for another 24 hours, monitor output Continue Mcneill catheter for another 24 hours, continue to monitor and record strict accurate intake and output Daily weights Continue home medications of sodium bicarb, Neurontin, iron, vitamin D, Flexeril More recommendations to follow as patient progresses
--- NOTE | 2024-05-17 10:36 | XR ---
EXAMINATION TYPE: XR chest 1V portable DATE OF EXAM: 05/17/2024 Comparison: 05/17/2024 Clinical History: 69-year-old male post R. throa Findings: Heart mildly enlarged. 2 left-sided chest tubes. No appreciable pneumothorax. Right IJ CVC tip at the upper right atrium. Median sternotomy wires. Residual small bilateral pleural effusions remain. Patc hy bibasilar opacities remaining as well. Impression: 1. Interval right-sided thoracentesis with residual small bilateral pleural effusions with adjacent a telectasis and/or consolidation. No appreciable pneumothorax. 2. Cardiomegaly with ongoing pulmonary vascular congestion. 3. 2 left-sided chest tubes remain in place.
--- NOTE | 2024-05-17 11:11 | US ---
05/17/2024 EXAMINATION TYPE: US chest DATE OF EXAM: 05/17/2024 COMPARISON: 05/16/2024 and radiograph CLINICAL INDICATION: Male, 69 years old with history of right for pleural effusion measurement; Remar k; yesterdays does not correlate TECHNIQUE: Targeted ultrasound of the posterior lower right EXAM MEASUREMENTS: Right Pleural Effusion pocket size: 6.6 cm Right skin surface to fluid distance: 4.0 cm Right side marked for possible thoracentesis outside the dept. Dr. Nugent Pulmonologists are able to review the images in the patient?s EMR. IMPRESSIONS: Moderate right pleural effusion with marking performed.
[2024-05-17 11:15] LABS: Glucose,Whole Blood 100 mg/dL (70-110)
--- NOTE | 2024-05-17 12:18 | P.PN ---
Subjective Progress Note Date: 05/17/24 Patient is a 69-year-old white male brought in yesterday for an elective CABG x 2 redo. Past medical history significant for coronary artery disease status post CABG over 20 years ago in [place] followed by subsequent PCI/stenting, ischemic cardiomyopathy, hyperlipidemia, hypertension, chronic kidney disease, chronic ongoing tobacco dependence, COPD, obstructive sleep apnea, among other things. We were asked to see this patient for preoperative pulmonary clearance back in December,. A bedside FEV1 was performed which was 43% of predicted or 1.41 L indicating a severe degree of obstruction. At that time, we felt the patient to be at high risk for pulmonary complications perioperatively. Yesterday, patient underwent a redo off-pump coronary artery bypass grafting x 2 with a left thoracotomy approach. There was a right radial graft to the OM and a SVG graft to the LAD. Intraoperatively, the patient reportedly did have significant EBL of almost 4 L. He received multiple blood products so far including 3 units PRBCs, 2 FFP, 1 pack platelets, and 1 pooled cryoprecipitate. Also, has recieved 1.75 L of 5% albumin. 3 L crystalloid fluid. Patient was then transported to the intensive care unit in critical condition. He remains intubated to the mechanical ventilator. Current ventilator settings of assist- control, respiratory rate 12, tidal volume 550, FiO2 40%, and PEEP of 10. He is breathing above set rate. Peak pressures 26. No significant airway secretions. Propofol is infusing at 10 mcg/kg/min. ABGs done on the settings but an FiO2 of 100%, show a PaO2 of 281, pCO2 of 37, pH of 7.41. Postoperative chest x-ray shows postoperative changes, a chronic right pleural effusion with pulmonary vascular congestion. 2 left-sided chest tubes in place, no sizable pneumothoraces appreciated. Hemodynamics are marginal. He is on milrinone, which is currently infusing at 0.25 mcg/kg/min. Also, requiring norepinephrine for blood pressure support currently infusing at 0.1 mcg/kg/min. Normal saline infusing at 50 MLS per hour. There is no pulmonary artery catheter. CVP read ing 12. He has 2 left-sided chest tubes divided anteriorly and posteriorly. Anterior chest tube has a total of 140 mL of serosanguineous output and the left posterior chest tube has a total of 430 mL of serosanguineous output. No significant air leaks. Most recent postoperative CBC: WBC count 8.3, hemoglobin 9.7, hematocrit 30.5, platelets 118. CMP: Sodium 137, potassium 4, chloride 108, serum bicarb 19, BUN 15, creatinine 0.72, glucose 108. He does have an indewelling urinary catheter. Received a dose of Lasix 20 mg earlier. He initially diuressed copiously. Urine output is currently in the order of 50-100 ml/hr. Earlier, patient's PEEP was dropped to 8, follow-up ABG, was satisfactory with a PaO2 of 94, pCO2 of 38, pH of 7.45. Reportedly, weaning trial was attempted earlier, per the rapid exudation protocol. Patient was unable to tolerate pressure support, he was reportedly anxious, tachypneic, and had high minute ventilation. He was transitioned to Precedex, but this did not help. On my follow-up evaluation, patient has had increasing vasopressor requirements. Vasopressin was added by CT surgery, which is infusing at physiological dose. In light of patient's hemodynamic instability and increasing vasopressor requirements. Will hold off on any further weaning attempts at this point. The patient is seen today 05/17/2024 in follow-up in the intensive care unit. He is currently sitting up in a chair awake and alert in no acute distress.O2 saturations in the 90s on room air. Chest x-ray does reveal increasing bilateral pleural effusions right greater than left. Follow-up ultrasound revealed a 6.6 cm pocket. He did undergo a right-sided thoracentesis with 2 L of cloudy yellow fluid removed. He tolerated the procedure well. Follow-up chest x-ray did not reveal evidence of pneumothorax. White count 10.5. Hemoglobin 9.2. Platelets 88,000. Sodium 133. Potassium 4.2. Bicarb 21. BUN 17. Creatinine 0.83. Glucose 118. he remains on bronchodilators. Continued with the incentive spirometer. Heparin for DVT prophylaxis. Objective - Vital Signs Vital signs: Vital Signs Temp 99.0 F 05/17/24 04:00 Pulse 98 05/17/24 11:30 Resp 28 H 05/17/24 11:30 BP 114/64 05/17/24 11:30 Pulse Ox 97 05/17/24 11:30 FiO2 30 05/16/24 18:30 Intake & Output 05/16/24 05/17/24 05/17/24 18:59 06:59 18:59 Intake Total 9534.725 6670.486 296.185 Output Total 905 750 210 Balance 755.312 358.486 86.185 Weight 102 kg 102.4 kg 102.4 kg Intake: IV 832 598 154 Albumin Human 5% 250 ml 250 In Empty Bag 1 bag @ 250 mls/hr IVPB Q1HR PRN Rx#: [id number] Pressure Bag (0.9 sodium 72 78 24 chloride) Sodium Chloride 0.9% 1, 460 520 130 000 ml @ 20 mls/hr IV . Q24H [facility] Rx#:[id number] ceFAZolin 2 gm In Sodium 50 Chloride 0.9% 50 ml @ Per Protocol 100 mls/hr IVPB ONCE ONE Rx#:[id number] Intake, IV Titration 468.312 60.486 22.185 Amount Dexmedetomidine/0.9% NaCl 40.18 (Pmx) 400 mcg In Empty Bag 1 bag @ Titrate IV . Q0M [facility] Rx#:[id number] Milrinone-D5w Pmx 20 mg 91.875 In Dextrose/Water 1 100ml .bag @ 0.125 MCG/KG/MIN 3 .675 mls/hr IV .Q24H [facility] Rx#:[id number] Norepinephrine 4 mg In 188.908 Sodium Chloride 0.9% 250 ml @ 0.03 MCG/KG/MIN 11. 201 mls/hr IV .[id number] [facility] Rx#:[id number] Vasopressin 20 unit In 77.622 60.486 22.185 Sodium Chloride 0.9% 50 ml @ 0.04 UNITS/MIN 6.12 mls/hr IV .Q8H20M [facility] Rx# :[id number] propofoL 1,000 mg In 69.727 Empty Bag 1 bag @ Titrate IV .Q0M [facility] Rx#: [id number] Oral 240 450 120 Other 120 Output: Chest Tube Drainage 175 320 50 Left Anterior Chest 5 120 10 Left Posterior Chest 170 200 40 Gastric Drainage 150 Urine 580 430 160 Other: Voiding Method Indwelling Catheter Indwelling Catheter Indwelling Catheter ABP, PAP, CO, CI - Last Documented Arterial Blood Pressure 117/39 - Exam GENERAL EXAM: awake, alert 69-year-old male, up in a chair, on room air. HEAD: Normocephalic and atraumatic EYES: Normal reaction of pupils, equal size. NOSE: Clear with pink turbinates. THROAT: No erythema or exudates. NECK: No masses, no JVD. Right IJ catheter. CHEST: Old sternal thoracotomy noted. Left thoracotomy incision with postoperative incisional dressing clean, dry, intact. 2 left-sided chest tubes noted. LUNGS: Equal air entry with no crackles, wheeze, rhonchi. Diminished right posterior basilar lung sounds. Intubated mechanical ventilator. Peak pressures 26. No significant airway secretions. CVS: S1 and S2 normal with no audible murmur, regular rhythm. No extra heart edgardo nds ABDOMEN: No hepatosplenomegaly, active bowel sounds, no guarding or rigidity. SPINE: No scoliosis or deformity SKIN: No rashes CENTRAL NERVOUS SYSTEM: Moves all 4 extremities. No obvious focal deficits. EXTREMITIES: There is no peripheral edema, clubbing, or cyanosis. Peripheral pulses are intact. Legs are wrapped with Joon bandages. Right arm wrapped with Joon bandage and DEEPTI drain compressed. SCDs in place. - Labs CBC & Chem 7: 05/17/24 04:20 05/17/24 04:20 Labs: Abnormal Lab Results - Last 24 Hours (Table) 05/16/24 05/16/24 05/16/24 Range/Units 12:47 15:16 15:18 RBC (4.30-5.90) m/uL Hgb (13.0-17.5) gm/dL Hct (39.0-53.0) % RDW (11.5-15.5) % Plt Count (150-450) k/uL Neutrophils # (1.3-7.7) k/uL Lymphocytes # (1.0-4.8) k/uL ABG Total CO2 (19-24) mmol/L ABG O2 Saturation (94-97) % ABG Lactic Acid 1.8 H (0.5-1.6) mmol/L Sodium (137-145) mmol/L Carbon Dioxide (22-30) mmol/L Glucose (74-99) mg/dL POC Glucose (mg/dL) 125 H 122 H (70-110) mg/dL Calcium (8.4-10.2) mg/dL Total Bilirubin (0.2-1.3) mg/dL Total Protein (6.3-8.2) g/dL Albumin (3.5-5.0) g/dL 05/16/24 05/16/24 05/16/24 Range/Units 15:21 18:05 20:29 RBC (4.30-5.90) m/uL Hgb (13.0-17.5) gm/dL Hct (39.0-53.0) % RDW (11.5-15.5) % Plt Count (150-450) k/uL Neutrophils # (1.3-7.7) k/uL Lymphocytes # (1.0-4.8) k/uL ABG Total CO2 25 H (19-24) mmol/L ABG O2 Saturation 97.8 H (94-97) % ABG Lactic Acid (0.5-1.6) mmol/L Sodium (137-145) mmol/L Carbon Dioxide (22-30) mmol/L Glucose (74-99) mg/dL POC Glucose (mg/dL) 119 H 117 H (70-110) mg/dL Calcium (8.4-10.2) mg/dL Total Bilirubin (0.2-1.3) mg/dL Total Protein (6.3-8.2) g/dL Albumin (3.5-5.0) g/dL 05/17/24 05/17/24 Range/Units 04:20 04:20 RBC 3.39 L (4.30-5.90) m/uL Hgb 9.2 L (13.0-17.5) gm/dL Hct 29.4 L (39.0-53.0) % RDW 16.5 H (11.5-15.5) % Plt Count 88 L (150-450) k/uL Neutrophils # 8.6 H (1.3-7.7) k/uL Lymphocytes # 0.9 L (1.0-4.8) k/uL ABG Total CO2 (19-24) mmol/L ABG O2 Saturation (94-97) % ABG Lactic Acid (0.5-1.6) mmol/L Sodium 133 L (137-145) mmol/L Carbon Dioxide 21 L (22-30) mmol/L Glucose 118 H (74-99) mg/dL POC Glucose (mg/dL) (70-110) mg/dL Calcium 8.3 L (8.4-10.2) mg/dL Total Bilirubin 2.0 H (0.2-1.3) mg/dL Total Protein 5.6 L (6.3-8.2) g/dL Albumin 3.2 L (3.5-5.0) g/dL Assessment and Plan Assessment: Postoperative day #2 following an off-pump redo, coronary artery bypass grafting x 2 with left thoracotomy approach, including right radial graft to the OM and SVG graft to the LAD. Intraoperatively, patient had significant EBL of 4 L. Velasco s received multiple blood product so far including 3 units PRBCs, 2 FFP, 1 pack platelets, 1 pooled cryoprecipitate, 1.75 L 5% albumin. Also received 3 L crystalloids. Acute blood loss anemia, expected outcome of surgery, most recent hemoglobin 9.7 g/dL Routine postoperative mechanical ventilator management, postoperative chest x- ray shows the endotracheal tube in satisfactory position approximately 4.2 cm above the flor, orogastric tube coursing below the diaphragm, right IJ central venous catheter with distal tip at the cavoatrial junction, left thoracotomy tubes in place without evidence of pneumothoraces. There is a chronic right pleural effusion. Pulmonary vascular congestion. Coronary artery disease, with previous history of CABG over 20 years ago followed by subsequent PCI/stenting Ischemic cardiomyopathy, recent echocardiogram 04/25/2024 estimates a severely reduced left ventricular ejection fraction of 20 to 25%, as well as, moderate mitral and tricuspid regurgitation History of hypertension History of hyperlipidemia History of tobacco dependence Chronic obstructive pulmonary disease, bedside FEV1 was performed which was 43% of predicted or 1.41 L indicating a severe degree of obstruction History of obstructive sleep apnea Chronic hypoxemic respiratory failure, utilizes 3 L/min nasal cannula at home as needed Chronic right-sided pleural effusion History of asbestos exposure plan: The patient was seen and evaluated Chest x-ray, labs and medications reviewed He did undergo a right-sided thoracentesis 2 L of cloudy yellow fluid were removed Cultures and cytology pending Follow-up chest x-ray showed no pneumothorax Continue bronchodilators Continue incentive spirometer Increase his activity as tolerated We will continue to follow I have personally seen and examined the patient, performed the documentation and the assessment and plan as written. Number of minutes spent on the visit: 10.
[2024-05-17] MEDS: HYDROcodone/APAP 10-325MG 1 EACH TAB PO PRN (13:15)
[2024-05-17] MEDS: METOPROLOL TARTRATE 12.5 MG TAB PO SCH (13:19)
[2024-05-17 16:32] LABS: Glucose,Whole Blood 93 mg/dL (70-110)
[2024-05-17] MEDS: fentaNYL (PF) 50 MCG/ML 2 ML AMP IVP PRN (17:38)
--- NOTE | 2024-05-17 18:31 | PCN ---
PROCEDURE NOTE PROCEDURE: Right-sided thoracentesis. PREOPERATIVE DIAGNOSIS: Postoperative right-sided pleural effusion. POSTOPERATIVE DIAGNOSIS: Postoperative right-sided pleural effusion. [employer]: Asha Johnson. DESCRIPTION OF PROCEDURE: We did a bedside thoracentesis in room 265. The posterior chest was marked by vibration technician. There was informed consent and universal timeout. The fluid color was dark yellow, the quantity was 2 L. There was no immediate complication. Chest x-ray was ordered by our staff. There was no immediate complication. The fluid will be sent for analysis including cytology, microbiology, and chemistry. MMODL / IJN: [id number] /
[2024-05-17 20:24] LABS: Glucose,Whole Blood 88 mg/dL (70-110)
[2024-05-18 02:15] LABS: Glucose, BF Source Pleural Fluid; Glucose, Body Fluid 124 mg/dL; LDH, Body Fluid Source Pleural Fluid; T. Protein, Body Fluid Source Pleural Fluid; Total Protein, Body Fluid 2680 mg/dL
[2024-05-18 03:18] LABS: Appearance,BF Clear (Clear)
[2024-05-18 04:39] LABS: Anisocytosis Slight; Basophils % (A) 0 %; Eosinophils # (A) 0.1 k/uL (0-0.7); Eosinophils % (A) 1 %; HCT 26.5 % (39.0-53.0); HGB 8.7 gm/dL (13.0-17.5); Hypochromasia Moderate; Lymphocytes % (A) 11 %; MCH 28.7 pg (25.0-35.0); MCHC 32.6 g/dL (31.0-37.0); MCV 87.9 fL (80.0-100.0); Monocytes # (A) 0.7 k/uL (0-1.0); Monocytes % (A) 8 %; Neutrophils # (A) 7.2 k/uL (1.3-7.7); Neutrophils % (A) 79 %; Poikilocytosis Slight; RBC 3.02 m/uL (4.30-5.90); RDW 16.8 % (11.5-15.5); WBC 9.2 k/uL (3.8-10.6)
[2024-05-18 04:44] LABS: Platelet Count 90 k/uL (150-450)
[2024-05-18 05:28] LABS: ALT 10 U/L (4-49); AST 40 U/L (17-59); African American GFR (CKD) >90 (>60 ml/min/1.73 sqM); Albumin 2.9 g/dL (3.5-5.0); Alkaline Phosphatase 59 U/L (38-126); Anion Gap 4 mmol/L; Blood Urea Nitrogen 21 mg/dL (9-20); Calcium 8.4 mg/dL (8.4-10.2); Carbon Dioxide 23 mmol/L (22-30); Chloride 102 mmol/L (98-107); Glucose 93 mg/dL (74-99); Non-African American GFR(CKD) >90 (>60 ml/min/1.73 sqM); Potassium 4.3 mmol/L (3.5-5.1); Sodium 129 mmol/L (137-145); Total Protein 5.5 g/dL (6.3-8.2)
[2024-05-18] MEDS: PANTOPRAZOLE 40 MG TABLET PO SCH (07:09)
--- NOTE | 2024-05-18 07:28 | XR ---
EXAMINATION TYPE: XR chest 1V portable DATE OF EXAM: 05/18/2024 5:23 AM CLINICAL INDICATION:Male, 69 years old with history of post cardiac surgery; [facility] COMPARISON: Chest radiographs from 05/17/2024 TECHNIQUE: XR chest 1V portable Frontal view of the chest. FINDINGS: Lungs/Pleura: No evidence of focal consolidation or pneumothorax. Blunting of the costophrenic angles is present. Pulmonary vascularity: Unremarkable. Heart/mediastinum: Cardiomediastinal silhouette is enlarged and stable. Musculoskeletal: No acute osseous pathology. Midline sternotomy wires are noted. Other findings: None Lines/Tubes: Right internal jugular central venous catheter with distal tip at the cavoatrial junctio n. Left thoracotomy tube is present without evidence of pneumothorax. IMPRESSION: Worsening aeration of lungs possibly due to phase of inspiration attention follow-up imaging. There r emains pulmonary vascular congestion bilateral pleural effusions suggested.
--- NOTE | 2024-05-18 08:44 | P.PN ---
Subjective Progress Note Date: 05/18/24 Principal diagnosis: Triple-vessel coronary artery disease, unstable Angina. History of coronary artery disease with previous myocardial infarction and multiple stents as well as thrombectomy on Eliquis for anticoagulation, most recent PCI was to the SVG in 10/2022, as well as coronary artery bypass graft surgery approximately 20 years ago, ischemic cardiomyopathy, chronic systolic heart failure with reduced ejection fraction, hypertension, hyperlipidemia, left internal carotid artery stenosis, chronic kidney disease, chronic anemia, chronic ongoing tobacco use, severe COPD on home oxygen 2 L/min, obstructive sleep apnea, chronic back pain with history of back surgery, and family history of heart disease. POD #3 redo off pump coronary artery bypass grafting x 2 - left thoracotomy approach, endoscopic right radial and right greater saphenous vein harvest, graft flow measurements using the [employer] flow meter system, cryo-ablation of intercostal nerves 6-9, trans-esophageal echo Intra and postoperative acute blood loss anemia and thrombocytopenia, expected given hemodilution as well as preoperative use of Plavix and Eliquis Hypotension requiring IV pressor use, expected given blood loss The patient was seen and examined this morning sitting up in a recliner in the intensive care unit in no acute distress but is not taking very deep breaths. Currently on room air with oxygen saturations in the mid 90s. Remains in sinus rhythm, hemodynamically stable, Primacor discontinued this morning. Chest x- ray, labs reviewed. Right internal jugular Cordis, left radial arterial line, left-sided posterior chest tubes present. Patient underwent right sided thor acentesis by Dr. Nugent yesterday with removal of 2 L straw colored fluid. Patient does complain of pain to his sacrum from previous cage, states it is hard for him to sit up straight, requesting to be back in bed so he can lay on his right side for better pain control. States he has not slept well due to this pain. Does state postsurgical pain is better controlled. Not able to ambulate very far. Objective - Vital Signs Vital signs: Vital Signs Temp 98.9 F 05/18/24 08:00 Pulse 93 05/18/24 08:00 Resp 32 H 05/18/24 08:00 BP 112/62 05/18/24 07:00 Pulse Ox 97 05/18/24 08:00 FiO2 30 05/16/24 18:30 Intake & Output 05/17/24 05/18/24 05/18/24 18:59 06:59 18:59 Intake Total 548.185 932 36 Output Total 425 475 40 Balance 123.185 457 -4 Weight 102.4 kg 104.7 kg Intake: IV 406 432 36 Pressure Bag (0.9 sodium 66 72 6 chloride) Sodium Chloride 0.9% 1, 340 360 30 000 ml @ 20 mls/hr IV . Q24H [facility] Rx#:[id number] Intake, IV Titration 22.185 Amount Vasopressin 20 unit In 22.185 Sodium Chloride 0.9% 50 ml @ 0.04 UNITS/MIN 6.12 mls/hr IV .Q8H20M [facility] Rx# :[id number] Oral 120 500 Output: Chest Tube Drainage 60 0 0 Left Anterior Chest 10 Left Posterior Chest 50 0 0 Urine 365 475 40 Other: Voiding Method Indwelling Catheter Indwelling Catheter ABP, PAP, CO, CI - Last Documented Arterial Blood Pressure 99/45 - Exam CONSTITUTIONAL: Appears somewhat comfortable, cooperative, no acute distress RESPIRATORY: Lungs sounds diminished in the bases bilaterally. Respirations even, nonlabored. Currently on room air with oxygen saturation 96%. Able to achieve 500 mL on incentive spirometry. Weak cough. CARDIOVASCULAR: S1, S2 present. Regular rate and rhythm, sinus rhythm on telemetry. Sternum stable. Palpable peripheral pulses bilaterally. Trace generalized edema present. No calf pain or tenderness noted. Heart hugger in place with patient occasionally demonstrating appropriate use. Antiembolism stockings, SCDs present. GASTROINTESTINAL: Abdomen soft, nontender, nondistended. Active bowel sounds present 4 quadrants. Tolerating minimal diet. Positive flatus GENITOURINARY: Mcneill present draining clear yellow urine. Output 35-40 mL/hr overnight, 840 mL in the last 24 hours INTEGUMENTARY: Skin is warm and dry. Anterior chest incision well approximated and covered with dry intact dressing. Right radial artery as well as right lower extremity EVH site well approximated without redness or drainage. Few smal l tape calvillo present to left back NEUROLOGIC: Cranial nerves II through XII intact MUSKULOSKELETAL: Able to move all extremities, strength equal bilaterally, generalized weakness present PSYCHIATRIC: Alert and oriented to person place and time, appropriate affect, intact judgment and insight INVASIVE LINES AND TUBES: Left posterior pleural chest tubes present and connected to wall suction, no air leaks present. Left posterior pleural chest tube with no drainage overnight, 50 mL in the last 24 hours. Right internal jugular cordis, left radial arterial line present. Last CVP 14 - Allied health notes Allied health notes reviewed: nursing - Labs CBC & Chem 7: 05/18/24 04:20 05/18/24 04:20 Labs: Abnormal Lab Results - Last 24 Hours (Table) 05/18/24 05/18/24 Range/Units 04:20 04:20 RBC 3.02 L (4.30-5.90) m/uL Hgb 8.7 L (13.0-17.5) gm/dL Hct 26.5 L (39.0-53.0) % RDW 16.8 H (11.5-15.5) % Plt Count 90 L (150-450) k/uL Sodium 129 L (137-145) mmol/L BUN 21 H (9-20) mg/dL Total Bilirubin 2.0 H (0.2-1.3) mg/dL Total Protein 5.5 L (6.3-8.2) g/dL Albumin 2.9 L (3.5-5.0) g/dL Microbiology - Last 24 Hours (Table) 05/17/24 09:45 Gram Stain - Preliminary Pleural Fluid - Imaging and Cardiology Chest x-ray: report reviewed, image reviewed Assessment and Plan Assessment: Triple-vessel coronary artery disease, unstable angina with history of coronary artery disease/previous myocardial infarction/multiple stents/thrombectomy on Eliquis for anticoagulation/CABG 20 years ago, status post two-vessel redo off- pump CABG Right sided chronic effusion, status post thoracentesis by Dr. Nugent with rem oval of 2L straw colored fluid Ischemic cardiomyopathy/chronic systolic heart failure with reduced ejection fraction, EF 25-30% History of hypertension, currently off pressors Hyperlipidemia, treated with Zetia, patient has muscle pain with statins, cholesterol 121, LDL 52, triglycerides 180 Left internal carotid artery stenosis, 50-79% Chronic kidney disease, stage IIIb, baseline creatinine 1.6-1.7 Chronic anemia Chronic ongoing tobacco use Severe COPD on home oxygen 2 L/min, preoperative FEV1 43% of predicted Obstructive sleep apnea Chronic back pain with history of back surgery Family history of heart disease. Intra and postoperative acute blood loss anemia and thrombocytopenia, expected given hemodilution as well as preoperative use of Plavix and Eliquis Medical debility Plan: Continue to maximize medical therapy with low-dose aspirin, Plavix, statin, Zet ia. Continue low dose beta-dorinda with hold parameters and uptitrate as able. Will reinitiate Eliquis at discharge Primacor discontinued Increase activity, ambulate as tolerated. PT/OT/cardiac rehab consulted Encourage incentive spirometry use 10 times every hour while awake, bronchodilators per pulmonology Will monitor daily labs and x-rays, electrolyte replacement per protocol. No further blood transfusion at this point. Will give IV Lasix today GI/DVT prophylaxis Insulin management per internal medicine. Patient is not diabetic, preoperative hemoglobin A1c 5.5% Pain control per current medication regimen Will discontinue posterior chest tube Discontinue Mcneill catheter after diuresis from Lasix, may bladder scan and straight cath for greater than 300 mL residual Continue to monitor and record strict accurate intake and output Daily weights Discontinue Cordis, arterial line Continue home medications of sodium bicarb, Neurontin, iron, vitamin D, Flexeril Patient will likely need rehab at discharge, will place consult for IPR physicians once all his tubes and wires have been discontinued More recommendations to follow as patient progresses
[2024-05-18] MEDS ORDERED: ZINC OXIDE PASTE (Z-GUARD) 1 APPLIC TOPICAL PRN (09:04)
[2024-05-18] MEDS: FUROSEMIDE 10 MG/ML 2 ML VIAL IV SCH (09:37)
--- NOTE | 2024-05-18 11:22 | P.PN ---
Subjective Progress Note Date: 05/18/24 Principal diagnosis: Coronary artery disease. Patient is a 69-year-old white male brought in yesterday for an elective CABG x 2 redo. Past medical history significant for coronary artery disease status post CABG over 20 years ago in [place] followed by subsequent PCI/stenting, ischemic cardiomyopathy, hyperlipidemia, hypertension, chronic kidney disease, chronic ongoing tobacco dependence, COPD, obstructive sleep apnea, among other things. We were asked to see this patient for preoperative pulmonary clearance back in December,. A bedside FEV1 was performed which was 43% of predicted or 1.41 L indicating a severe degree of obstruction. At that time, we felt the patient to be at high risk for pulmonary complications perioperatively. Yesterday, patient underwent a redo off-pump coronary artery bypass grafting x 2 with a left thoracotomy approach. There was a right radial graft to the OM and a SVG graft to the LAD. Intraoperatively, the patient reportedly did have significant EBL of almost 4 L. He received multiple blood products so far including 3 units PRBCs, 2 FFP, 1 pack platelets, and 1 pooled cryoprecipitate. Also, has recieved 1.75 L of 5% albumin. 3 L crystalloid fluid. Patient was then transported to the intensive care unit in critical condition. He remains intubated to the mechanical ventilator. Current ventilator settings of assist-control, respiratory rate 12, tidal volume 550, FiO2 40%, and PEEP of 10. He is breathing above set rate. Peak pressures 26. No significant airway secretions. Propofol is infusing at 10 mcg/kg/min. ABGs done on the settings but an FiO2 of 100%, show a PaO2 of 281, pCO2 of 37, pH of 7.41. Postoperative chest x-ray shows postoperative changes, a chronic right pleural effusion with pulmonary vascular congestion. 2 left-sided chest tubes in place, no sizable pneumothoraces appreciated. Hemodynamics are marginal. He is on milrinone, which is currently infusing at 0.25 mcg/kg/min. Also, requiring norepinephrine for blood pressure support currently infusing at 0.1 mcg/kg/min. Normal saline infusing at 50 MLS per hour. There is no pulmonary artery catheter. CVP reading 12. He has 2 left-sided chest tubes divided anteriorly and posteriorly. Anterior chest tube has a total of 140 mL of serosanguineous output and the left posterior chest tube has a total of 430 mL of serosanguineous output. No significant air leaks. Most recent postoperative CBC: WBC count 8.3, hemoglobin 9.7, hematocrit 30.5, platelets 118. CMP: Sodium 137, potassium 4, chloride 108, serum bicarb 19, BUN 15, creatinine 0.72, glucose 108. He does have an indewelling urinary catheter. Received a dose of Lasix 20 mg earlier. He initially diuressed copiously. Urine output is currently in the order of 50-100 ml/hr. Earlier, patient's PEEP was dropped to 8, follow-up ABG, was satisfactory with a PaO2 of 94, pCO2 of 38, pH of 7.45. Reportedly, weaning trial was attempted earlier, per the rapid exudation protocol. Patient was unable to tolerate pressure support, he was reportedly anxious, tachypneic, and had high minute ventilation. He was transitioned to Precedex, but this did not help. On my follow-up evaluation, patient has had increasing vasopressor requirements. Vasopressin was added by CT surgery, which is infusing at physiological dose. In light of patient's hemodynamic instability and increasing vasopressor requirements. Will hold off on any further weaning attempts at this point. The patient is seen today 05/17/2024 in follow-up in the intensive care unit. He is currently sitting up in a chair awake and alert in no acute distress.O2 saturations in the 90s on room air. Chest x-ray does reveal increasing bilateral pleural effusions right greater than left. Follow-up ultrasound revealed a 6.6 cm pocket. He did undergo a right-sided thoracentesis with 2 L of cloudy yellow fluid removed. He tolerated the procedure well. Follow-up chest x-ray did not reveal evidence of pneumothorax. White count 10.5. Hemoglobin 9.2. Platelets 88,000. Sodium 133. Potassium 4.2. Bicarb 21. BUN 17. Creatinine 0.83. Glucose 118. he remains on bronchodilators. Continued with the incentive sagrario horne. Heparin for DVT prophylaxis. Progress note dated May 18, 2024. 69-year-old male seen today room to 265. The patient is on room air. He is getting saline at 30 cc an hour. The patient is postop day #3. It was a three- vessel bypass grafting. Clinically, the patient looks like he is doing relatively well. He has no specific complaints today. He denies any shortness of breath, cough, wheezing, chest tightness, or phlegm production. Current labs include a white count 9.2, hemoglobin 8.7, hematocrit 26.5, and a platelet count of 90,000. Sodium 129, potassium 4.3, chlorides 102, CO2 23, BUN 21, and creatinine 0.82. The patient had a thoracentesis done on the right side. It ap pears to be 8 transudate. The total protein is less than 3 g. The LDH is less than 200. Chest x-ray shows diffuse bilateral infiltrates, and mild pulmonary vascular congestion. Objective - Vital Signs Vital signs: Vital Signs Temp 98.9 F 05/18/24 08:00 Pulse 92 05/18/24 09:00 Resp 36 H 05/18/24 09:00 BP 112/62 05/18/24 07:00 Pulse Ox 94 L 05/18/24 09:00 FiO2 30 05/16/24 18:30 Intake & Output 05/17/24 05/18/24 05/18/24 18:59 06:59 18:59 Intake Total 548.185 932 154 Output Total 425 475 420 Balance 123.185 457 -266 Weight 102.4 kg 104.7 kg Intake: IV 406 432 154 Pressure Bag (0.9 sodium 66 72 24 chloride) Sodium Chloride 0.9% 1, 340 360 130 000 ml @ 20 mls/hr IV . Q24H [facility] Rx#:[id number] Intake, IV Titration 22.185 Amount Vasopressin 20 unit In 22.185 Sodium Chloride 0.9% 50 ml @ 0.04 UNITS/MIN 6.12 mls/hr IV .Q8H20M [facility] Rx# :[id number] Oral 120 500 Output: Chest Tube Drainage 60 0 0 Left Anterior Chest 10 Left Posterior Chest 50 0 0 Urine 365 475 420 Other: Voiding Method Indwelling Catheter Indwelling Catheter ABP, PAP, CO, CI - Last Documented Arterial Blood Pressure 114/45 - Exam No acute distress, oriented 3. Currently, the patient is on room air. Saturations are in the mid 90s. HEENT examination is grossly unremarkable. Mucous membranes are moist. No oral lesions. Neck supple. Full range of motion. No adenopathy thyromegaly or neck vein distention. Cardiovascular examination reveals regular rhythm rate. S1-S2 normal. No S3 or S4. No discernible murmur noted. Lungs reveal mild scattered rhonchi. No wheezes. No crackles. Breath sounds equal bilaterally. Abdomen soft bowel sounds are heard. No masses or tenderness. Extremities are intact. No cyanosis clubbing or edema. Skin is without rash or lesion. Neurologic examination is brief but nonfocal. - Labs CBC & Chem 7: 05/18/24 04:20 05/18/24 04:20 Labs: Abnormal Lab Results - Last 24 Hours (Table) 05/18/24 05/18/24 Range/Units 04:20 04:20 RBC 3.02 L (4.30-5.90) m/uL Hgb 8.7 L (13.0-17.5) gm/dL Hct 26.5 L (39.0-53.0) % RDW 16.8 H (11.5-15.5) % Plt Count 90 L (150-450) k/uL Sodium 129 L (137-145) mmol/L BUN 21 H (9-20) mg/dL Total Bilirubin 2.0 H (0.2-1.3) mg/dL Total Protein 5.5 L (6.3-8.2) g/dL Albumin 2.9 L (3.5-5.0) g/dL Microbiology - Last 24 Hours (Table) 05/17/24 09:45 Gram Stain - Preliminary Pleural Fluid Assessment and Plan Assessment: Postoperative day #3 following an off-pump redo, coronary artery bypass grafting x 2 with left thoracotomy approach, including right radial graft to the OM and SVG graft to the LAD. Intraoperatively, patient had significant EBL of 4 L. Has received multiple blood product so far including 3 units PRBCs, 2 FFP, 1 pa ck platelets, 1 pooled cryoprecipitate, 1.75 L 5% albumin. Also received 3 L crystalloids. Routine postoperative ventilator management. Acute blood loss anemia, expected outcome of surgery, most recent hemoglobin 9.7 g/dL. Routine postoperative mechanical ventilator management, postoperative chest x- ray shows the endotracheal tube in satisfactory position approximately 4.2 cm above the flor, orogastric tube coursing below the diaphragm, right IJ central venous catheter with distal tip at the cavoatrial junction, left thoracotomy tubes in place without evidence of pneumothoraces. There is a chronic right pleural effusion. Pulmonary vascular congestion. Coronary artery disease, with previous history of CABG over 20 years ago followed by subsequent PCI/stenting. Ischemic cardiomyopathy, recent echocardiogram 04/25/2024 estimates a severely reduced left ventricular ejection fraction of 20 to 25%, as well as, moderate mitral and tricuspid regurgitation. History of hypertension. History of hyperlipidemia. History of tobacco dependence. Chronic obstructive pulmonary disease, bedside FEV1 was performed which was 43% of predicted or 1.41 L indicating a severe degree of obstruction. History of obstructive sleep apnea. Chronic hypoxemic respiratory failure, utilizes 3 L/min nasal cannula at home. Chronic right-sided pleural effusion, S/P thoracentesis, with 2 L removed. Fluid appears to be a transudate. History of asbestos exposure. Plan: Plan dated May 18 2024. The patient appears to be doing much better. The patient is currently on room air. He is getting saline at 30 cc an hour. Today is postoperative day #3. The patient had a three-vessel bypass surgery. Labs, x-rays, medications are reviewed. The patient had a thoracentesis performed, which revealed 2 L of transudative fluid. The LDH and protein were both in the transudative range. We will continue to follow make recommendations along the way. No additional recommendations at this time. We do encourage deep breathing, coughing, clearing of secretions, and hourly use of the incentive spirometer. Time with Patient: Less than 30
[2024-05-18 11:34] LABS: Glucose,Whole Blood 94 mg/dL (70-110)
[2024-05-18 12:00] LABS: Glucose,Whole Blood 91 mg/dL (70-110)
--- NOTE | 2024-05-18 12:20 | P.PN ---
Subjective Progress Note Date: 05/18/24 The patient is a 69-year-old male who follows in the office with Dr. Wiggins. He was referred for redo coronary bypass as he has undergone multiple stents to his SVG to LAD as well as having a chronically occluded RCA. The patient underwent redo off-pump coronary bypass with Dr. Pool.yesterday the patient underwent thoracentesis for 2 L of sanguinous fluid was removed. he continues to suffer from back pain. She again is quite uncomfortable this morning. GENERAL: Well-appearing, well-nourished and in no acute distress. NECK: Supple without JVD or thyromegaly. LUNGS: Breath sounds diminished to auscultation bilaterally. Respiration equal and unlabored, shallow breathing. No wheezes, rales or rhonchi. HEART: Regular rate and rhythm without murmurs, rubs or gallops. S1 and S2 heard. heart hugger in place. EXTREMITIES: Normal range of motion, no edema. No clubbing or cyanosis. Peripheral pulses intact and strong. bilateral compression socks TELEMETRY: Sinus rhythm overnight. No arrhythmias IMPRESSION: Multivessel coronary artery disease with prior CABG Redo CABG x 2 Ischemic cardiomyopathy, EF 25% Moderate aortic regurgitation Hypertension Hyperlipidemia History of hypoxic respiratory failure on home oxygen History of ventricular fibrillation during cardiac catheterization History of chronic congestive heart failure, systolic PLAN: Continue supportive treatment Incentive spirometry and ambulation encouraged Further recommendations to be based upon clinical course I am dictating on behalf of Dr Andrew Chacon's history/physical and assessment/plan. Objective - Vital Signs Vital signs: Vital Signs Temp 98.9 F 05/18/24 08:00 Pulse 89 05/18/24 11:00 Resp 28 H 05/18/24 11:00 BP 101/60 05/18/24 11:00 Pulse Ox 96 05/18/24 11:00 FiO2 30 05/16/24 18:30 Intake & Output 05/17/24 05/18/24 05/18/24 18:59 06:59 18:59 Intake Total 548.185 932 154 Output Total 425 475 420 Balance 123.185 457 -266 Weight 102.4 kg 104.7 kg Intake: IV 406 432 154 Pressure Bag (0.9 sodium 66 72 24 chloride) Sodium Chloride 0.9% 1, 340 360 130 000 ml @ 20 mls/hr IV . Q24H [facility] Rx#:[id number] Intake, IV Titration 22.185 Amount Vasopressin 20 unit In 22.185 Sodium Chloride 0.9% 50 ml @ 0.04 UNITS/MIN 6.12 mls/hr IV .Q8H20M [facility] Rx# :[id number] Oral 120 500 Output: Chest Tube Drainage 60 0 0 Left Anterior Chest 10 Left Posterior Chest 50 0 0 Urine 365 475 420 Other: Voiding Method Indwelling Catheter Indwelling Catheter ABP, PAP, CO, CI - Last Documented Arterial Blood Pressure 113/45 - Labs CBC & Chem 7: 05/18/24 04:20 05/18/24 04:20 Labs: Abnormal Lab Results - Last 24 Hours (Table) 05/18/24 05/18/24 Range/Units 04:20 04:20 RBC 3.02 L (4.30-5.90) m/uL Hgb 8.7 L (13.0-17.5) gm/dL Hct 26.5 L (39.0-53.0) % RDW 16.8 H (11.5-15.5) % Plt Count 90 L (150-450) k/uL Sodium 129 L (137-145) mmol/L BUN 21 H (9-20) mg/dL Total Bilirubin 2.0 H (0.2-1.3) mg/dL Total Protein 5.5 L (6.3-8.2) g/dL Albumin 2.9 L (3.5-5.0) g/dL Microbiology - Last 24 Hours (Table) 05/17/24 09:45 Gram Stain - Preliminary Pleural Fluid
[2024-05-18] MEDS: METOPROLOL TARTRATE 12.5 MG TAB PO STA (13:59)
[2024-05-18 16:37] LABS: Glucose,Whole Blood 112 mg/dL (70-110)
[2024-05-18 20:11] LABS: Glucose,Whole Blood 99 mg/dL (70-110)
[2024-05-18] MEDS: ALPRAZolam 1 MG TAB PO PRN (22:42)
[2024-05-19 06:13] LABS: Glucose,Whole Blood 109 mg/dL (70-110)
[2024-05-19 06:31] LABS: Anisocytosis Slight; HCT 27.7 % (39.0-53.0); HGB 8.8 gm/dL (13.0-17.5); Hypochromasia Marked; MCH 27.9 pg (25.0-35.0); MCHC 31.9 g/dL (31.0-37.0); MCV 87.5 fL (80.0-100.0); Mean Platelet Volume 9.7; Platelet Count 115 k/uL (150-450); RBC 3.16 m/uL (4.30-5.90); RDW 16.9 % (11.5-15.5); WBC 7.4 k/uL (3.8-10.6)
[2024-05-19 06:40] LABS: African American GFR (CKD) >90 (>60 ml/min/1.73 sqM); Anion Gap 7 mmol/L; Blood Urea Nitrogen 26 mg/dL (9-20); Calcium 8.4 mg/dL (8.4-10.2); Carbon Dioxide 22 mmol/L (22-30); Chloride 102 mmol/L (98-107); Glucose 100 mg/dL (74-99); Magnesium 2.1 mg/dL (1.6-2.3); Non-African American GFR(CKD) >90 (>60 ml/min/1.73 sqM); Potassium 3.6 mmol/L (3.5-5.1); Sodium 131 mmol/L (137-145)
[2024-05-19] MEDS ORDERED: Potassium Replacement Protocol 1 EACH MISC MISCELLANE PRN (07:10)
--- NOTE | 2024-05-19 07:13 | XR ---
EXAMINATION TYPE: XR chest 1V portable DATE OF EXAM: 05/19/2024 5:02 AM CLINICAL INDICATION:Male, 69 years old with history of post cardiac surgery; [facility] COMPARISON: Chest radiograph from one day prior. TECHNIQUE: XR chest 1V portable Frontal view of the chest. FINDINGS: Lungs/Pleura: There is no evidence of pleural effusion, focal consolidation, or pneumothorax. Pulmonary vascularity: Mild pulmonary vascular congestion. Heart/mediastinum: Cardiomediastinal silhouette is unremarkable. Musculoskeletal: No acute osseous pathology. Other findings: None IMPRESSION: Cardiomegaly with pulmonary vascular congestion ..
[2024-05-19] MEDS: POTASSIUM CHLORIDE ER 20 MEQ TAB.ER PO SCH (07:15)
--- NOTE | 2024-05-19 07:25 | P.PN ---
Subjective Progress Note Date: 05/19/24 Principal diagnosis: Triple-vessel coronary artery disease, unstable Angina. History of coronary artery disease with previous myocardial infarction and multiple stents as well as thrombectomy on Eliquis for anticoagulation, most recent PCI was to the SVG in 10/2022, as well as coronary artery bypass graft surgery approximately 20 years ago, ischemic cardiomyopathy, chronic systolic heart failure with reduced ejection fraction, hypertension, hyperlipidemia, left internal carotid artery stenosis, chronic kidney disease, chronic anemia, chronic ongoing tobacco use, severe COPD on home oxygen 2 L/min, obstructive sleep apnea, chronic back pain with history of back surgery, and family history of heart disease. POD #4 redo off pump coronary artery bypass grafting x 2 - left thoracotomy approach, endoscopic right radial and right greater saphenous vein harvest, graft flow measurements using the Medi-Stim flow meter system, cryo-ablation of intercostal nerves 6-9, trans-esophageal echo Intra and postoperative acute blood loss anemia and thrombocytopenia, expected given hemodilution as well as preoperative use of Plavix and Eliquis Hypotension requiring IV pressor use, expected given blood loss The patient was seen and examined this morning sitting up in a recliner in the intensive care unit in no acute distress. Currently on room air with oxygen saturations in the mid 90s. Remains in sinus rhythm, hemodynamically stable. Chest x-ray, labs reviewed. Patient does complain of pain to his sacrum from previous cage, states it is hard for him to sit up straight. Does state postsurgical pain is better controlled. Was able to ambulate out to the hallway this morning with assistance. All lines and tubes discontinued yesterday. Patient continues to make slow progress. Objective - Vital Signs Vital signs: Vital Signs Temp 98.7 F 05/19/24 04:00 Pulse 85 05/19/24 07:00 Resp 22 05/19/24 07:00 BP 126/77 05/19/24 07:00 Pulse Ox 97 05/19/24 07:00 FiO2 30 05/16/24 18:30 Intake & Output 05/18/24 05/19/24 05/19/24 18:59 06:59 18:59 Intake Total 154 300 200 Output Total 420 800 Balance -266 -500 200 Weight 103.9 kg Intake: IV 154 Pressure Bag (0.9 sodium 24 chloride) Sodium Chloride 0.9% 1, 130 000 ml @ 20 mls/hr IV . Q24H [facility] Rx#:[id number] Oral 300 200 Output: Chest Tube Drainage 0 Left Posterior Chest 0 Urine 420 800 Other: Voiding Method Indwelling Catheter ABP, PAP, CO, CI - Last Documented Arterial Blood Pressure 113/45 - Exam CONSTITUTIONAL: Appears somewhat comfortable, cooperative, no acute distress RESPIRATORY: Lungs sounds diminished in the bases bilaterally. Respirations even, nonlabored. Currently on room air with oxygen saturation 97%. Able to achieve 1000 mL on incentive spirometry. Weak but productive cough with brown sputum. CARDIOVASCULAR: S1, S2 present. Regular rate and rhythm, sinus rhythm on telemetry. Sternum stable. Palpable peripheral pulses bilaterally. Generalized edema present. No calf pain or tenderness noted. Heart hugger in place with patient occasionally demonstrating appropriate use. Antiembolism stockings, SCDs present. GASTROINTESTINAL: Abdomen soft, nontender, nondistended. Active bowel sounds present 4 quadrants. Tolerating minimal diet. Positive flatus GENITOURINARY: Continues to void clear yellow urine. Output 920 mL in the last 24 hours INTEGUMENTARY: Skin is warm and dry. Anterior chest incision well approximated and covered with dry intact dressing. Right radial artery as well as right lower extremity EVH site well approximated without redness or drainage. Few small tape calvillo present to left back NEUROLOGIC: Cranial nerves II through XII intact MUSKULOSKELETAL: Able to move all extremities, strength equal bilaterally, generalized weakness present PSYCHIATRIC: Alert and oriented to person place and time, appropriate affect, intact judgment and insight - Allied health notes Allied health notes reviewed: nursing - Labs CBC & Chem 7: 05/19/24 05:50 05/19/24 05:50 Labs: Abnormal Lab Results - Last 24 Hours (Table) 05/18/24 05/19/24 05/19/24 Range/Units 16:36 05:50 05:50 RBC 3.16 L (4.30-5.90) m/uL Hgb 8.8 L (13.0-17.5) gm/dL Hct 27.7 L (39.0-53.0) % RDW 16.9 H (11.5-15.5) % Plt Count 115 L (150-450) k/uL Sodium 131 L (137-145) mmol/L BUN 26 H (9-20) mg/dL Glucose 100 H (74-99) mg/dL POC Glucose (mg/dL) 112 H (70-110) mg/dL Microbiology - Last 24 Hours (Table) 05/17/24 09:45 Acid Fast Bacilli Smear - Preliminary Pleural Fluid 05/17/24 09:45 Gram Stain - Preliminary Pleural Fluid Body Fluid Culture - Preliminary - Imaging and Cardiology Chest x-ray: report reviewed, image reviewed Assessment and Plan Assessment: Triple-vessel coronary artery disease, unstable angina with history of coronary artery disease/previous myocardial infarction/multiple stents/thrombectomy on Eliquis for anticoagulation/CABG 20 years ago, status post two-vessel redo off- pump CABG Right sided chronic effusion, status post thoracentesis by Dr. Nugent with removal of 2L straw colored fluid Ischemic cardiomyopathy/chronic systolic heart failure with reduced ejection fraction, EF 25-30% History of hypertension, currently off pressors Hyperlipidemia, treated with Zetia, patient has muscle pain with statins, cholesterol 121, LDL 52, triglycerides 180 Left internal carotid artery stenosis, 50-79% Chronic kidney disease, stage IIIb, baseline creatinine 1.6-1.7 Chronic anemia Chronic ongoing tobacco use Severe COPD on home oxygen 2 L/min, preoperative FEV1 43% of predicted Obstructive sleep apnea Chronic back pain with history of back surgery Family history of heart disease. Intra and postoperative acute blood loss anemia and thrombocytopenia, expected given hemodilution as well as preoperative use of Plavix and Eliquis Medical debility Plan: Continue to maximize medical therapy with low-dose aspirin, Plavix, statin, Zetia. Continue low dose beta-dorinda with hold parameters and uptitrate as able. Will reinitiate Eliquis at discharge Increase activity, ambulate as tolerated. PT/OT/cardiac rehab consulted Encourage incentive spirometry use 10 times every hour while awake, bronchodilators per pulmonology Will monitor daily labs and x-rays, electrolyte replacement per protocol. No further blood transfusion at this point. Will give IV Lasix today GI/DVT prophylaxis Insulin management per internal medicine. Patient is not diabetic, preoperative hemoglobin A1c 5.5% Pain control per current medication regimen Continue to monitor and record strict accurate intake and output Daily weights Continue home medications of sodium bicarb, Neurontin, iron, vitamin D, Flexeril Patient will likely need rehab at discharge, will place consult for IPR physicians Will place transfer orders for 3 S. cardiac stepdown unit, may transfer when bed available More recommendations to follow as patient progresses
[2024-05-19] MEDS: POTASSIUM BICARBONATE/CIT AC 20 MEQ TABLET.EFF PO ONE (08:47)
--- NOTE | 2024-05-19 10:23 | P.PN ---
Subjective Progress Note Date: 05/19/24 Principal diagnosis: Coronary artery disease. Patient is a 69-year-old white male brought in yesterday for an elective CABG x 2 redo. Past medical history significant for coronary artery disease status post CABG over 20 years ago in [place] followed by subsequent PCI/stenting, ischemic cardiomyopathy, hyperlipidemia, hypertension, chronic kidney disease, chronic ongoing tobacco dependence, COPD, obstructive sleep apnea, among other things. We were asked to see this patient for preoperative pulmonary clearance back in December,. A bedside FEV1 was performed which was 43% of predicted or 1.41 L indicating a severe degree of obstruction. At that time, we felt the patient to be at high risk for pulmonary complications perioperatively. Yesterday, patient underwent a redo off-pump coronary artery bypass grafting x 2 with a left thoracotomy approach. There was a right radial graft to the OM and a SVG graft to the LAD. Intraoperatively, the patient reportedly did have significant EBL of almost 4 L. He received multiple blood products so far including 3 units PRBCs, 2 FFP, 1 pack platelets, and 1 pooled cryoprecipitate. Also, has recieved 1.75 L of 5% albumin. 3 L crystalloid fluid. Patient was then transported to the intensive care unit in critical condition. He remains intubated to the mechanical ventilator. Current ventilator settings of assist-control, respiratory rate 12, tidal volume 550, FiO2 40%, and PEEP of 10. He is breathing above set rate. Peak pressures 26. No significant airway secretions. Propofol is infusing at 10 mcg/kg/min. ABGs done on the settings but an FiO2 of 100%, show a PaO2 of 281, pCO2 of 37, pH of 7.41. Postoperative chest x-ray shows postoperative changes, a chronic right pleural effusion with pulmonary vascular congestion. 2 left-sided chest tubes in place, no sizable pneumothoraces appreciated. Hemodynamics are marginal. He is on milrinone, which is currently infusing at 0.25 mcg/kg/min. Also, requiring norepinephrine for blood pressure support currently infusing at 0.1 mcg/kg/min. Normal saline infusing at 50 MLS per hour. There is no pulmonary artery catheter. CVP reading 12. He has 2 left-sided chest tubes divided anteriorly and posteriorly. Anterior chest tube has a total of 140 mL of serosanguineous output and the left posterior chest tube has a total of 430 mL of serosanguineous output. No significant air leaks. Most recent postoperative CBC: WBC count 8.3, hemoglobin 9.7, hematocrit 30.5, platelets 118. CMP: Sodium 137, potassium 4, chloride 108, serum bicarb 19, BUN 15, creatinine 0.72, glucose 108. He does have an indewelling urinary catheter. Received a dose of Lasix 20 mg earlier. He initially diuressed copiously. Urine output is currently in the order of 50-100 ml/hr. Earlier, patient's PEEP was dropped to 8, follow-up ABG, was satisfactory with a PaO2 of 94, pCO2 of 38, pH of 7.45. Reportedly, weaning trial was attempted earlier, per the rapid exudation protocol. Patient was unable to tolerate pressure support, he was reportedly anxious, tachypneic, and had high minute ventilation. He was transitioned to Precedex, but this did not help. On my follow-up evaluation, patient has had increasing vasopressor requirements. Vasopressin was added by CT surgery, which is infusing at physiological dose. In light of patient's hemodynamic instability and increasing vasopressor requirements. Will hold off on any further weaning attempts at this point. The patient is seen today 05/17/2024 in follow-up in the intensive care unit. He is currently sitting up in a chair awake and alert in no acute distress.O2 saturations in the 90s on room air. Chest x-ray does reveal increasing bilateral pleural effusions right greater than left. Follow-up ultrasound revealed a 6.6 cm pocket. He did undergo a right-sided thoracentesis with 2 L of cloudy yellow fluid removed. He tolerated the procedure well. Follow-up chest x-ray did not reveal evidence of pneumothorax. White count 10.5. Hemoglobin 9.2. Platelets 88,000. Sodium 133. Potassium 4.2. Bicarb 21. BUN 17. Creatinine 0.83. Glucose 118. he remains on bronchodilators. Continued with the incentive sagrario horne. Heparin for DVT prophylaxis. Progress note dated May 18, 2024. 69-year-old male seen today room to 265. The patient is on room air. He is getting saline at 30 cc an hour. The patient is postop day #3. It was a three- vessel bypass grafting. Clinically, the patient looks like he is doing relatively well. He has no specific complaints today. He denies any shortness of breath, cough, wheezing, chest tightness, or phlegm production. Current labs include a white count 9.2, hemoglobin 8.7, hematocrit 26.5, and a platelet count of 90,000. Sodium 129, potassium 4.3, chlorides 102, CO2 23, BUN 21, and creatinine 0.82. The patient had a thoracentesis done on the right side. It ap pears to be 8 transudate. The total protein is less than 3 g. The LDH is less than 200. Chest x-ray shows diffuse bilateral infiltrates, and mild pulmonary vascular congestion. Progress note dated May 19, 2024. 69-year-old male seen in room 265. The patient is doing relatively well. He is on room air. He is not getting any fluids. He is postop day #4. He likely will be discharged before and in the next day or 2. He had an uneventful night according to the nurse. Labs include a white count 7.4, hemoglobin 8.8, hematocrit 27.7, and a platelet count of 115,000. Sodium 131, potassium 3.6, chlorides 102, CO2 22, BUN 26, creatinine 0.82. Glucose is 109. Calcium 8.4, magnesium 2.1. Chest x-ray shows some mild fluid overload. Objective - Vital Signs Vital signs: Vital Signs Temp 98 F 05/19/24 08:00 Pulse 81 05/19/24 08:00 Resp 21 05/19/24 08:00 BP 104/77 05/19/24 08:00 Pulse Ox 97 05/19/24 08:00 FiO2 30 05/16/24 18:30 Intake & Output 05/18/24 05/19/24 05/19/24 18:59 06:59 18:59 Intake Total 154 300 200 Output Total 420 800 0 Balance -266 -500 200 Weight 103.9 kg Intake: IV 154 Pressure Bag (0.9 sodium 24 chloride) Sodium Chloride 0.9% 1, 130 000 ml @ 20 mls/hr IV . Q24H [facility] Rx#:[id number] Oral 300 200 Output: Chest Tube Drainage 0 Left Posterior Chest 0 Urine 420 800 0 Other: Voiding Method Indwelling Catheter Urinal ABP, PAP, CO, CI - Last Documented Arterial Blood Pressure 113/45 - Exam No acute distress, oriented 3. Currently, the patient is on room air. Saturation is 97%. HEENT examination is grossly unremarkable. Mucous membranes are moist. No oral lesions. Neck supple. Full range of motion. No adenopathy thyromegaly or neck vein distention. Cardiovascular examination reveals regular rhythm rate. S1-S2 normal. No S3 or S4. No discernible murmur noted. Lungs reveal mild scattered rhonchi. No wheezes. No crackles. Breath sounds equal bilaterally. Abdomen soft bowel sounds are heard. No masses or tenderness. Extremities are intact. No cyanosis clubbing or edema. Skin is without rash or lesion. Neurologic examination is brief but nonfocal. - Labs CBC & Chem 7: 05/19/24 05:50 05/19/24 05:50 Labs: Abnormal Lab Results - Last 24 Hours (Table) 05/18/24 05/19/24 05/19/24 Range/Units 16:36 05:50 05:50 RBC 3.16 L (4.30-5.90) m/uL Hgb 8.8 L (13.0-17.5) gm/dL Hct 27.7 L (39.0-53.0) % RDW 16.9 H (11.5-15.5) % Plt Count 115 L (150-450) k/uL Sodium 131 L (137-145) mmol/L BUN 26 H (9-20) mg/dL Glucose 100 H (74-99) mg/dL POC Glucose (mg/dL) 112 H (70-110) mg/dL Microbiology - Last 24 Hours (Table) 05/17/24 09:45 Acid Fast Bacilli Smear - Preliminary Pleural Fluid 05/17/24 09:45 Gram Stain - Preliminary Pleural Fluid Body Fluid Culture - Preliminary Assessment and Plan Assessment: Postoperative day #4 following an off-pump redo, coronary artery bypass grafting x 2 with left thoracotomy approach, including right radial graft to the OM and SVG graft to the LAD. Intraoperatively, patient had significant EBL of 4 L. Has received multiple blood product so far including 3 units PRBCs, 2 FFP, 1 pack platelets, 1 pooled cryoprecipitate, 1.75 L 5% albumin. Also received 3 L crystalloids. Routine postoperative ventilator management. Acute blood loss anemia, expected outcome of surgery, most recent hemoglobin 9.7 g/dL. Routine postoperative mechanical ventilator management, postoperative chest x- ray shows the endotracheal tube in satisfactory position approximately 4.2 cm above the flor, orogastric tube coursing below the diaphragm, right IJ central venous catheter with distal tip at the cavoatrial junction, left thoracotomy tubes in place without evidence of pneumothoraces. There is a chronic right pleural effusion. Pulmonary vascular congestion. Coronary artery disease, with previous history of CABG over 20 years ago followe d by subsequent PCI/stenting. Ischemic cardiomyopathy, recent echocardiogram 04/25/2024 estimates a severely reduced left ventricular ejection fraction of 20 to 25%, as well as, moderate mitral and tricuspid regurgitation. History of hypertension. History of hyperlipidemia. History of tobacco dependence. Chronic obstructive pulmonary disease, bedside FEV1 was performed which was 43% of predicted or 1.41 L indicating a severe degree of obstruction. History of obstructive sleep apnea. Chronic hypoxemic respiratory failure, utilizes 3 L/min nasal cannula at home. Chronic right-sided pleural effusion, S/P thoracentesis, with 2 L removed. Fluid appears to be a transudate. History of asbestos exposure. Plan: Plan dated May 18 2024. The patient appears to be doing much better. The patient is currently on room air. He is getting saline at 30 cc an hour. Today is postoperative day #3. The patient had a three-vessel bypass surgery. Labs, x-rays, medications are reviewed. The patient had a thoracentesis performed, which revealed 2 L of transudative fluid. The LDH and protein were both in the transudative range. We will continue to follow make recommendations along the way. No additional recommendations at this time. We do encourage deep breathing, coughing, clearing of secretions, and hourly use of the incentive spirometer. Plan dated May 19, 2024. The patient appears to be doing relatively well. He is currently on room air. He is not receiving any IV fluids. He is postop day #4. The patient has no complaints. He denies any shortness of breath, cough, wheezing, chest tightness, or phlegm production. He also denies any chest pain or pressure. Labs, x-rays, medications are reviewed. We will continue to follow and make recommendations along the way. Time with Patient: Less than 30
--- NOTE | 2024-05-19 10:51 | P.PN ---
Subjective Progress Note Date: 05/19/24 The patient is a 69-year-old male who follows in the office with Dr. Wiggins. He was referred for redo coronary bypass as he has undergone multiple stents to his SVG to LAD as well as having a chronically occluded RCA. The patient underwent redo off-pump coronary bypass with Dr. Coy well as a thoracentesis with Dr. Nugent. patient appears much more comfortable this morning. He is resting in the recli ner chair. He has been up ambulating throughout the unit. GENERAL: Well-appearing, well-nourished and in no acute distress. NECK: Supple without JVD or thyromegaly. LUNGS: Breath sounds diminished to auscultation bilaterally. Respiration equal and unlabored. No wheezes, rales or rhonchi. HEART: Regular rate and rhythm without murmurs, rubs or gallops. S1 and S2 heard. heart hugger in place. EXTREMITIES: Normal range of motion, mild edema. No clubbing or cyanosis. Peripheral pulses intact and strong. bilateral compression socks TELEMETRY: Sinus rhythm overnight. No arrhythmias LABS: WBC 7.4, hemoglobin 8.8, hematocrit 27.7, platelet 1:15, sodium 131, potassium 3.6, BUN 26, creatinine 0.82, magnesium 2.1 IMPRESSION: Multivessel coronary artery disease with prior CABG Redo CABG x 2 Ischemic cardiomyopathy, EF 25% Moderate aortic regurgitation Hypertension Hyperlipidemia History of hypoxic respiratory failure on home oxygen History of ventricular fibrillation during cardiac catheterization History of chronic congestive heart failure, systolic PLAN: Continue supportive treatment Incentive spirometry and ambulation encouraged Further recommendations to be based upon clinical course I am dictating on behalf of Dr Andrew Chacon's history/physical and assessment/plan. Objective - Vital Signs Vital signs: Vital Signs Temp 98 F 05/19/24 08:00 Pulse 81 05/19/24 08:00 Resp 21 05/19/24 08:00 BP 104/77 05/19/24 08:00 Pulse Ox 97 05/19/24 08:00 FiO2 30 05/16/24 18:30 Intake & Output 05/18/24 05/19/24 05/19/24 18:59 06:59 18:59 Intake Total 154 300 200 Output Total 420 800 0 Balance -266 -500 200 Weight 103.9 kg Intake: IV 154 Pressure Bag (0.9 sodium 24 chloride) Sodium Chloride 0.9% 1, 130 000 ml @ 20 mls/hr IV . Q24H [facility] Rx#:[id number] Oral 300 200 Output: Chest Tube Drainage 0 Left Posterior Chest 0 Urine 420 800 0 Other: Voiding Method Indwelling Catheter Urinal ABP, PAP, CO, CI - Last Documented Arterial Blood Pressure 113/45 - Labs CBC & Chem 7: 05/19/24 05:50 05/19/24 05:50 Labs: Abnormal Lab Results - Last 24 Hours (Table) 05/18/24 05/19/24 05/19/24 Range/Units 16:36 05:50 05:50 RBC 3.16 L (4.30-5.90) m/uL Hgb 8.8 L (13.0-17.5) gm/dL Hct 27.7 L (39.0-53.0) % RDW 16.9 H (11.5-15.5) % Plt Count 115 L (150-450) k/uL Sodium 131 L (137-145) mmol/L BUN 26 H (9-20) mg/dL Glucose 100 H (74-99) mg/dL POC Glucose (mg/dL) 112 H (70-110) mg/dL Microbiology - Last 24 Hours (Table) 05/17/24 09:45 Acid Fast Bacilli Smear - Preliminary Pleural Fluid 05/17/24 09:45 Gram Stain - Preliminary Pleural Fluid Body Fluid Culture - Preliminary
[2024-05-19 11:19] LABS: Glucose,Whole Blood 88 mg/dL (70-110)
[2024-05-19] MEDS: ALBUMIN HUMAN 5% 500 ML IVPB ONE (15:58)
[2024-05-19] MEDS: ALBUMIN HUMAN 25% 50 ML IV ONE (15:58)
[2024-05-19] MEDS: CHLORHEXIDINE GLUCONATE 15 ML CUP MUCOUS MEM ONE (15:59)
[2024-05-19] MEDS: CALCIUM CHLORIDE 100 MG/ML 10 ML SYRINGE IV ONE (15:59)
[2024-05-19] MEDS: CLEVIDIPINE BUTYRATE 25 MG in EMPTY BAG 1 BAG IV ONE (15:59)
[2024-05-19] MEDS: ceFAZolin 1,000 MG in SODIUM CHLORIDE 0.9% IRRIGATIO 1,000 ML IRRIGATION ONE (15:59)
[2024-05-19] MEDS: ELECTROLYTE-A SOLUTION 1,000 ML with POTASSIUM CHLORIDE 100 MEQ, MAGNESIUM SULFATE 16 M... IV ONE (15:59)
[2024-05-19] MEDS: MAGNESIUM SULFATE 16.24 MEQ in EMPTY SYRINGE 1 SYR IV ONE (16:00)
[2024-05-19] MEDS: ELECTROLYTE-A SOLUTION 1,000 ML with POTASSIUM CHLORIDE 40 MEQ, MAGNESIUM SULFATE 16 ME... IV ONE (16:00)
[2024-05-19] MEDS: HEPARIN SODIUM 1,000 UN/ML (10ML VL) IV ONE (16:00)
[2024-05-19] MEDS: INSULIN REGULAR 100 UNIT in SODIUM CHLORIDE 0.9% 100 ML IV ONE (16:00)
[2024-05-19] MEDS: HEPARIN SODIUM,PORCINE (1 ML) 5,000 UNIT in SODIUM CHLORIDE 0.9% 500 ML 500 ML IV ONE (16:01)
[2024-05-19] MEDS: MANNITOL 25% 12.5 GM/50 ML VIAL IV ONE (16:02)
[2024-05-19] MEDS: LACTATED RINGERS 1,000 ML IV ONE (16:02)
[2024-05-19] MEDS: NITROGLYCERIN-D5W PMX 25 MG/250 ML BTL IV ONE (16:02)
[2024-05-19] MEDS: NITROGLYCERIN SL TABS 0.4 MG TAB SUBLINGUAL ONE (16:02)
[2024-05-19] MEDS: NITROGLYCERIN-D5W PMX 50 MG in DEXTROSE/WATER 1 250ML.BAG IV ONE (16:03)
[2024-05-19] MEDS: PAPAVERINE 360 MG in SODIUM CHLORIDE 0.9% 90 ML IV ONE (16:03)
[2024-05-19] MEDS: NOREPINEPHRINE 4 MG in SODIUM CHLORIDE 0.9% 250 ML IV ONE (16:03)
[2024-05-19] MEDS: PHENYLEPHRINE 10 MG/ML VIAL IV ONE (16:03)
[2024-05-19] MEDS: propofoL 1,000 MG/100 ML VIAL IV ONE (16:03)
[2024-05-19] MEDS: PROTAMINE SULFATE 10 MG/ML 25 ML VIAL IV ONE (16:03)
[2024-05-19] MEDS: PHENYLEPHRINE 40 MG in SODIUM CHLORIDE 0.9% 250 ML IV ONE (16:03)
[2024-05-19] MEDS: DILTIAZEM 125 MG in SODIUM CHLORIDE 0.9% 100 ML IV SCH (16:04)
[2024-05-19] MEDS: TRANEXAMIC ACID 2,000 MG in SODIUM CHLORIDE 0.9% 80 ML IV ONE (16:04)
[2024-05-19] MEDS: SODIUM BICARB 8.4% 50 ML SYR (1 MEQ/ML) IV ONE (16:04)
[2024-05-19] MEDS: SODIUM CHLORIDE 0.9% 1,000 ML IV ONE (16:04)
[2024-05-19] MEDS: PROTAMINE SULFATE 250 MG in EMPTY BAG 1 BAG IV ONE (16:04)
[2024-05-19 16:22] LABS: Glucose,Whole Blood 77 mg/dL (70-110)
[2024-05-19] MEDS: HYDROcodone/APAP 10-325MG 1 EACH TAB PO ONE (16:23)
[2024-05-19 19:58] LABS: Glucose,Whole Blood 80 mg/dL (70-110)
--- NOTE | 2024-05-19 21:25 | PN ---
PROGRESS NOTE DATE OF SERVICE: 05/16/2024 CHIEF COMPLAINT: CAD, status post CABG. HISTORY OF PRESENT ILLNESS: This gentleman seems to be stable. He is on pressors. He is still on ventilator support. PHYSICAL EXAMINATION: CARDIAC: He has good peripheral perfusion. Blood pressure is just under 100. CHEST: Breath sounds are heard bilaterally. IMPRESSION: 1. Status post coronary artery bypass graft. 2. Coronary artery disease. 3. Chronic obstructive pulmonary disease. PLAN: No change in program and follow with Cardiology and Cardiac Surgery. MMODL / IJN: [id number] /
--- NOTE | 2024-05-19 22:19 | PN ---
PROGRESS NOTE DATE OF SERVICE: 05/17/2024 CHIEF COMPLAINT: Coronary artery disease. HISTORY OF PRESENT ILLNESS: This gentleman remains fairly stable. He is doing surprisingly well considering the condition of his myocardium and lungs. PHYSICAL EXAMINATION: VITAL SIGNS: On the ventilator, his blood pressure 106/36. CHEST: Breath sounds are heard bilaterally. History of port in that he has fluid in the right chest cavity. CARDIAC: Seems to be normal. IMPRESSION: 1. Status post coronary artery bypass graft. 2. Coronary artery disease. 3. Cardiomyopathy. 4. Right pleural effusion. PLAN: I believe it is planned that the infusion will be addressed today. MMODL / IJN: [id number] /
--- NOTE | 2024-05-19 22:43 | PN ---
PROGRESS NOTE DATE OF SERVICE: 05/18/2024 CHIEF COMPLAINT: Status post CABG. HISTORY OF PRESENT ILLNESS: This gentleman is doing well. He has been extubated. Blood pressures are holding around 100 to 105 systolic. PHYSICAL EXAMINATION: GENERAL: Perfusion is good. CHEST: Clear. CARDIAC: Normal. Dressing is dry. IMPRESSION: 1. Status post coronary artery bypass graft. 2. Chronic obstructive pulmonary disease. PLAN: No change in his management and continue to follow with Cardiology and Cardiac Surgery. MMODL / IJN: [id number] /
--- NOTE | 2024-05-19 23:10 | PN ---
PROGRESS NOTE DATE OF SERVICE: 05/19/2024 CHIEF COMPLAINT: Status post CABG. HISTORY OF PRESENT ILLNESS: This gentleman continues to do surprisingly well. He is not having any shortness of breath, arrhythmias, etc. PHYSICAL EXAMINATION: CHEST: He has good breath sounds bilaterally. CARDIAC: Normal. VITAL SIGNS: Blood pressure is stable at around 110. IMPRESSION: 1. Status post coronary artery bypass graft. 2. Coronary artery disease. 3. Atherosclerotic cardiomyopathy. 4. Chronic obstructive pulmonary disease. PLAN: Continue to follow while he is in ICU. MMODL / IJN: [id number] /
[2024-05-20 06:21] LABS: Glucose,Whole Blood 135 mg/dL (70-110)
[2024-05-20] MEDS ORDERED: SENNOSIDES-DOCUSATE SODIUM 1 EACH TAB PO PRN (07:00)
--- NOTE | 2024-05-20 07:57 | XR ---
EXAMINATION TYPE: XR chest 2V DATE OF EXAM: 05/20/2024 COMPARISON: 05/19/2024 HISTORY: Shortness of breath TECHNIQUE: Frontal and lateral views of the chest are obtained. FINDINGS: Scattered senescent parenchymal changes noted. Hyperinflation compatible with COPD. Improvement of pulmonary venous congestion and perihilar infiltrates with small effusions. Heart size is stable. Mediastinal structures are stable and grossly unremarkable. No evidence for hilar prominence. Degenerative changes dorsal spine. IMPRESSION: 1. Acute left congestive failure although interval improvement noted.
[2024-05-20] MEDS ORDERED: METOPROLOL TARTRATE 12.5 MG TAB PO SCH (08:00)
--- NOTE | 2024-05-20 08:09 | P.PN ---
Subjective Progress Note Date: 05/20/24 Principal diagnosis: Triple-vessel coronary artery disease, unstable Angina. History of coronary artery disease with previous myocardial infarction and multiple stents as well as thrombectomy on Eliquis for anticoagulation, most recent PCI was to the SVG in 10/2022, as well as coronary artery bypass graft surgery approximately 20 years ago, ischemic cardiomyopathy, chronic systolic heart failure with reduced ejection fraction, hypertension, hyperlipidemia, left internal carotid artery stenosis, chronic kidney disease, chronic anemia, chronic ongoing tobacco use, severe COPD on home oxygen 2 L/min, obstructive sleep apnea, chronic back pain with history of back surgery, and family history of heart disease. POD #5 redo off pump coronary artery bypass grafting x 2 - left thoracotomy approach, endoscopic right radial and right greater saphenous vein harvest, graft flow measurements using the Medi-Stim flow meter system, cryo-ablation of intercostal nerves 6-9, trans-esophageal echo Intra and postoperative acute blood loss anemia and thrombocytopenia, expected given hemodilution as well as preoperative use of Plavix and Eliquis Hypotension requiring IV pressor use, expected given blood loss The patient was seen and examined this morning laying in bed sleeping on the cardiac stepdown unit in no acute distress. Currently on room air with oxygen saturations in the mid 90s. Remains in sinus rhythm, hemodynamically stable. Chest x-ray reviewed, labs pending. Per nursing patient has been refusing to participate in his care this morning, they were able to get a CXR, but patient wants to be left alone otherwise. Will allow some sleep but then will have di scussion with patient about the need to participate in his care to avoid complications. Patient will need rehab at discharge but need PT/OT eval first, patient needs to be compliant with therapy. He did shower yesterday. Objective - Vital Signs Vital signs: Vital Signs Temp 97.6 F 05/20/24 04:00 Pulse 94 05/20/24 04:00 Resp 18 05/20/24 04:00 BP 117/57 05/20/24 04:00 Pulse Ox 96 05/20/24 04:00 FiO2 30 05/16/24 18:30 Intake & Output 05/19/24 05/20/24 05/20/24 18:59 06:59 18:59 Intake Total 700 140 Output Total 450 400 Balance 250 -260 Weight 88.5 kg Intake: IV 20 Invasive Line 1 20 Oral 700 120 Output: Urine 450 400 Other: Voiding Method Urinal Urinal # Voids 1 # Bowel Movements 2 ABP, PAP, CO, CI - Last Documented Arterial Blood Pressure 113/45 - Exam CONSTITUTIONAL: Appears comfortable while sleeping, uncooperative per nursing, no acute distress RESPIRATORY: Lungs sounds diminished in the bases bilaterally. Respirations even, nonlabored. Currently on room air with oxygen saturation 96%. CARDIOVASCULAR: S1, S2 present. Regular rate and rhythm, sinus rhythm on telemetry. Sternum stable. Palpable peripheral pulses bilaterally. Generalized edema present. No calf pain or tenderness noted. Heart hugger in place with patient occasionally demonstrating appropriate use. Antiembolism stockings, SCDs present. GASTROINTESTINAL: Abdomen soft, nontender, nondistended. Active bowel sounds present 4 quadrants. Tolerating minimal diet. Positive bowel movement x 2 05/19 GENITOURINARY: Continues to void clear yellow urine INTEGUMENTARY: Skin is warm and dry. Anterior chest incision well approximated. Right radial artery as well as right lower extremity EVH site well approximated without redness or drainage. Few small tape calvillo present to left back NEUROLOGIC: Cranial nerves II through XII intact MUSKULOSKELETAL: Able to move all extremities, strength equal bilaterally, generalized weakness present PSYCHIATRIC: Alert and oriented to person place and time - Allied health notes Allied health notes reviewed: nursing - Labs CBC & Chem 7: 05/19/24 05:50 05/19/24 05:50 Labs: Abnormal Lab Results - Last 24 Hours (Table) 05/20/24 Range/Units 06:08 POC Glucose (mg/dL) 135 H (70-110) mg/dL Microbiology - Last 24 Hours (Table) 05/17/24 09:45 Gram Stain - Preliminary Pleural Fluid Body Fluid Culture - Preliminary - Imaging and Cardiology Chest x-ray: report reviewed, image reviewed Assessment and Plan Assessment: Triple-vessel coronary artery disease, unstable angina with history of coronary artery disease/previous myocardial infarction/multiple stents/thrombectomy on Eliquis for anticoagulation/CABG 20 years ago, status post two-vessel redo off- pump CABG Right sided chronic effusion, status post thoracentesis by Dr. Nugent with removal of 2L straw colored fluid Ischemic cardiomyopathy/chronic systolic heart failure with reduced ejection fraction, EF 25-30% History of hypertension, currently off pressors Hyperlipidemia, treated with Zetia, patient has muscle pain with statins, cholesterol 121, LDL 52, triglycerides 180 Left internal carotid artery stenosis, 50-79% Chronic kidney disease, stage IIIb, baseline creatinine 1.6-1.7 Chronic anemia Chronic ongoing tobacco use Severe COPD on home oxygen 2 L/min, preoperative FEV1 43% of predicted Obstructive sleep apnea Chronic back pain with history of back surgery Family history of heart disease. Intra and postoperative acute blood loss anemia and thrombocytopenia, expected given hemodilution as well as preoperative use of Plavix and Eliquis Medical debility Noncompliance Plan: Continue to maximize medical therapy with low-dose aspirin, Plavix, statin, Zetia. Continue low dose beta-dorinda with hold parameters and uptitrate as able. Low dose EDER added due to low EF, hold parameters placed. Will reinitiate Eliquis at discharge Increase activity, ambulate as tolerated. PT/OT/cardiac rehab consulted Encourage incentive spirometry use 10 times every hour while awake, bronchodilators per pulmonology Will monitor daily labs and x-rays, electrolyte replacement per protocol. No further blood transfusion at this point. Will give IV Lasix today GI/DVT prophylaxis Insulin management per internal medicine. Patient is not diabetic, preoperative hemoglobin A1c 5.5% Pain control per current medication regimen Continue to monitor and record strict accurate intake and output Daily weights Continue home medications of sodium bicarb, Neurontin, iron, vitamin D, Flexeril Patient will need rehab at discharge, consult placed for IPR physicians however patient needs to be compliant with therapy in order for IPR physician evaluation More recommendations to follow as patient progresses
[2024-05-20 08:14] LABS: Anisocytosis Slight; HCT 28.6 % (39.0-53.0); Hypochromasia Marked; MCH 27.4 pg (25.0-35.0); MCHC 31.6 g/dL (31.0-37.0); MCV 86.9 fL (80.0-100.0); Mean Platelet Volume 10.4; Platelet Count 160 k/uL (150-450); RDW 17.6 % (11.5-15.5); WBC 6.1 k/uL (3.8-10.6)
[2024-05-20] MEDS: IPRATROPIUM-ALBUTEROL 3 ML NEB INHALATION SCH (08:20)
--- NOTE | 2024-05-20 08:24 | P.PN ---
Subjective Progress Note Date: 05/20/24 The patient is a pleasant 69-year-old gentleman who is known to our service from before with CAD with prior surgical and percutaneous revascularization as well as severe cardiomyopathy and heart failure as well as multiple comorbid conditions who was admitted to the hospital and underwent redo CABG x 2. May 20, 2024 The patient was seen and evaluated this morning. He is doing overall well. The chest x-ray was reviewed and appears to be wet. Currently he is on Lasix IV. No pain in the chest. Overall he is having reasonable recovery for the second open heart surgery. His blood work continues to be stable. Urine output has been adequate as well. Examination is remarkable for regular rhythm with diminished breathing sounds bilaterally and no edema was noted in the lower extremities Assessment CAD status post redo CABG x 2 Severe ischemic cardiomyopathy Multiple comorbid conditions Plan Continue current medical regimen Continue dual antiplatelet therapy and anti-ischemic medications Consider maximize medical treatment for cardiomyopathy down the line Continue monitor the kidney function and electrolytes Follow-up with the patient Objective - Vital Signs Vital signs: Vital Signs Temp 97.6 F 05/20/24 04:00 Pulse 94 05/20/24 04:00 Resp 18 05/20/24 04:00 BP 117/57 05/20/24 04:00 Pulse Ox 96 05/20/24 04:00 FiO2 30 05/16/24 18:30 Intake & Output 05/19/24 05/20/24 05/20/24 18:59 06:59 18:59 Intake Total 700 140 Output Total 450 400 Balance 250 -260 Weight 88.5 kg Intake: IV 20 Invasive Line 1 20 Oral 700 120 Output: Urine 450 400 Other: Voiding Method Urinal Urinal # Voids 1 # Bowel Movements 2 ABP, PAP, CO, CI - Last Documented Arterial Blood Pressure 113/45 - Labs CBC & Chem 7: 05/20/24 07:51 05/19/24 05:50 Labs: Abnormal Lab Results - Last 24 Hours (Table) 05/20/24 05/20/24 Range/Units 06:08 07:51 RBC 3.30 L (4.30-5.90) m/uL Hgb 9.0 L (13.0-17.5) gm/dL Hct 28.6 L (39.0-53.0) % RDW 17.6 H (11.5-15.5) % POC Glucose (mg/dL) 135 H (70-110) mg/dL Microbiology - Last 24 Hours (Table) 05/17/24 09:45 Gram Stain - Preliminary Pleural Fluid Body Fluid Culture - Preliminary
[2024-05-20 08:27] LABS: African American GFR (CKD) >90 (>60 ml/min/1.73 sqM); Anion Gap 8 mmol/L; Blood Urea Nitrogen 23 mg/dL (9-20); Calcium 8.5 mg/dL (8.4-10.2); Carbon Dioxide 25 mmol/L (22-30); Chloride 100 mmol/L (98-107); Glucose 93 mg/dL (74-99); Non-African American GFR(CKD) 88 (>60 ml/min/1.73 sqM); Potassium 3.2 mmol/L (3.5-5.1); Sodium 133 mmol/L (137-145)
[2024-05-20] MEDS: FUROSEMIDE 10 MG/ML 2 ML VIAL IV SCH (09:36)
[2024-05-20] MEDS: METOPROLOL TARTRATE 12.5 MG TAB PO SCH (09:36)
[2024-05-20] MEDS: POTASSIUM BICARBONATE/CIT AC 20 MEQ TABLET.EFF PO ONE ×2 (09:49→16:54)
--- NOTE | 2024-05-20 10:38 | P.CONS ---
History of Present Illness - Reason for Consult Consult date: 05/20/24 rehab recommendations - Chief Complaint s/p CABG x 2 redo - History of Present Illness Mr Simmons is a 69 y/o , right handed, male who lives alone, though his fiance "basically lives there," in a home 3-4 PAUL. Prior to admission, patient was independent with mobility and ADLs. He used a cane for ambulation. He has support from his fiance. Also has two daughters Patient is a 69-year-old white male presented to the hospital on 05/15/24 for an elective CABG x 2 redo. Past medical history significant for coronary artery disease status post CABG over 20 years ago in [place] followed by subsequent PCI/stenting, ischemic cardiomyopathy, hyperlipidemia, hypertension, chronic kidney disease, chronic ongoing tobacco dependence, COPD, obstructive sleep apnea, among other things. Patient underwent a redo off-pump coronary artery bypass grafting x 2 with a left thoracotomy approach. There was a right radial graft to the OM and a SVG graft to the LAD. Intraoperatively, the patient reportedly did have significant EBL of almost 4 L. He received multiple blood products so far including 3 units PRBCs, 2 FFP, 1 pack platelets, and 1 pooled cryoprecipitate. Also, has recieved 1.75 L of 5% albumin. 3 L crystalloid fluid. Patient was then transported to the intensive care unit in critical condition. He was on mechanical ventilator. Also, requiring norepinephrine for blood pressure support currently infusing at 0.1 mcg/kg/min. Normal saline infusing at 50 MLS per hour. He does have an indewelling urinary catheter. Received a dose of Lasix 20 mg earlier. He was reportedly anxious, tachypneic, and had high minute ventilation. He was transitioned to Precedex, but this did not help. On my follow-up evaluation, patient has had increasing vasopressor requirements. Vasopressin was added by CT surgery, which is infusing at physiological dose. Intra and postoperative acute blood loss anemia and thrombocytopenia, expected given hemodilution as well as preoperative use of Plavix and Eliquis. Hypotension requiring IV pressor use, expected given blood loss. PM&R consulted for rehab recommendations. Patient is pending therapy evaluations. Doing ok at this time. Denies any issues, denies WOODY, CP, SOB, abdominal pain, or other pain complaints. Last BM this am. When talking about therapy, he says "I don't think I need them", but acknowledges he needs help getting up. Review of Systems reviewed, negative unless stated otherwise Past Medical History Past Medical History: Coronary Artery Disease (CAD), Chest Pain / Angina, Heart Failure, COPD, GERD/Reflux, Hyperlipidemia, Hypertension, Myocardial Infarction (ID), Osteoarthritis (OA), Sleep Apnea/CPAP/BIPAP Additional Past Medical History / Comment(s): Chronic back pain, left leg weakness. No device use for Sleep Apnea, states uses O2 at night only. Recent SOB, edema lower extremitries. States unsure about having had a heart attack. Last Myocardial Infarction Date:: 11/11/22 History of Any Multi-Drug Resistant Organisms: None Reported Past Surgical History: Back Surgery, Cholecystectomy, Coronary Bypass/CABG, Heart Catheterization With Stent, Orthopedic Surgery Additional Past Surgical History / Comment(s): Back surgery X2 with cage, left tennis elbow surgery, heart stents X7, colonoscopy, lasik eye surgery bilaterally,. emergency CABG [facility] [place], thrombectomy. Past Anesthesia/Blood Transfusion Reactions: No Reported Reaction Additional Past Anesthesia/Blood Transfusion Reaction / Comm: Pt received blood during CABG without reaction. Date of Last Stent Placement:: Oct 2022 Past Psychological History: Anxiety, Depression, PTSD Additional Psychological History / Comment(s): He ambulates with a cane. He drives. Smoking Status: Current every day smoker Past Alcohol Use History: Abuse Additional Past Alcohol Use History / Comment(s): Started smoking in 1967, used to smoke 3ppd, down to 3-4 cigarettes per day now. No alcohol in 30+ yrs. Past Drug Use History: Cocaine Additional Drug Use History / Comment(s): States no cocaine use for 30+ yrs. - Past Family History Father Family Medical History: Coronary Artery Disease (CAD), Deep Vein Thrombosis (DVT), GERD/Reflux, Hyperlipidemia, Myocardial Infarction (ID) Additional Family Medical History / Comment(s): Father of a ID in his 80's. Mother Family Medical History: Coronary Artery Disease (CAD), Myocardial Infarction (ID) Additional Family Medical History / Comment(s): Mother of a ID. Brother(s) Family Medical History: Myocardial Infarction (ID) Additional Family Medical History / Comment(s): . Sister(s) Family Medical History: Cancer, Diabetes Mellitus Additional Family Medical History / Comment(s): Lung cancer. Other sister had Diabetes. Medications and Allergies Home Medications Medication Instructions Recorded Confirmed Type HYDROcodone/APAP 10-325MG [[place] 1 tab PO TID 02/22/15 05/15/24 History 10-325] Apixaban [Eliquis] 2.5 mg PO BID #60 tab 11/18/22 05/15/24 Rx Ezetimibe [Zetia] 10 mg PO DAILY #90 tab 11/18/22 05/15/24 Rx Fluticasone Nasal [place] [Flonase 1 spray EA NOSTRIL BID PRN 01/27/23 05/15/24 History Nasal [place]] Metoprolol Succinate (ER) [Toprol 50 mg PO DAILY #30 tab 02/01/23 05/15/24 Rx XL] ALPRAZolam [Xanax] 2 mg PO TID PRN 03/15/23 05/15/24 History Clopidogrel [Plavix] 75 mg PO HS 08/21/23 05/15/24 History Cyclobenzaprine [Flexeril] 10 mg PO TID 08/21/23 05/15/24 History Omeprazole [PriLOSEC] 20 mg PO AC-BID 08/21/23 05/15/24 History lisinopriL [Zestril] 2.5 mg PO DAILY 08/21/23 05/15/24 History Albuterol Inhaler [Ventolin Hfa 1 - 2 puff INHALATION RT-Q6H PRN 12/22/23 05/15/24 History Inhaler] Dapagliflozin Propanediol [Farxiga] 5 mg PO DAILY #30 tab 12/24/23 05/15/24 Rx Nitroglycerin Sl Tabs [Nitrostat] 0.4 mg SL Q5M PRN 01/13/24 05/15/24 History Furosemide [Lasix] 40 mg PO DAILY #100 tab 01/25/24 05/15/24 Rx Sodium Bicarbonate Tab 650 mg PO TID #100 tab 01/25/24 05/15/24 Rx Ergocalciferol [Vitamin D2 (1250 1,250 mcg PO Q30D 05/10/24 05/15/24 History Mcg = 04629 Iu)] Ferrous Sulfate [Iron (65 MG 650 mg PO Q30D 05/10/24 05/15/24 History Elemental)] Gabapentin [Neurontin] 100 mg PO TID 05/10/24 05/15/24 History Allergies Allergy/AdvReac Type Severity Reaction Status Date / Time latex Allergy Swelling Verified 05/15/24 06:54 atorvastatin [From Lipitor] AdvReac JOINT PAIN Verified 05/15/24 06:54 Physical Exam Vitals: Vital Signs Temp Pulse Pulse Resp BP Pulse Ox 05/20/24 08:41 88 05/20/24 08:31 90 05/20/24 08:20 88 92 L 05/20/24 08:00 98 F 99 18 134/64 95 05/20/24 04:00 97.6 F 94 18 117/57 96 05/20/24 02:00 86 20 05/20/24 00:00 98.2 F 86 20 93/57 92 L 05/19/24 20:28 88 05/19/24 20:21 88 05/19/24 20:08 89 05/19/24 20:00 97.9 F 92 18 96/58 92 L 05/19/24 16:00 98.0 F 89 21 112/61 98 05/19/24 12:00 97.8 F 83 19 129/63 98 05/19/24 11:35 79 05/19/24 11:24 81 Intake and Output 05/19/24 05/20/24 05/20/24 22:59 06:59 14:59 Intake Total 130 10 Output Total 400 Balance 130 -390 Intake: IV 10 10 Invasive Line 1 10 10 Oral 120 Output: Urine 400 Other: Voiding Method Urinal Urinal Weight 88.5 kg General: WDWN male HEENT: NCAT, hearing intact, mouth clear Cardio: regular rate Pulmonary: even and unlabored respirations on RA Abdomen: Soft, non tender : no suprapupic tenderness Msk: functional ROM of arms and legs with sternal precautions Neuro: A & O x 4 Speech is clear and fluent. Follows 3 step commands MMT: B/L UE >3 EF/EE, 5/5 director packaging, WE B/L LE 4/5 bilaterally Reflexes: 2+ UE, 1+ LE bilaterally Sensation light touch intact UE/LE Skin: sternal incision Ext: Bilateral LE edema, no calf TTP, negative Homans; wound right medial calf. Psych: calm, cooperative Results CBC & Chem 7: 05/20/24 07:51 05/20/24 07:51 Labs: Abnormal Lab Results - Last 24 Hours (Table) 05/20/24 05/20/24 05/20/24 Range/Units 06:08 07:51 07:51 RBC 3.30 L (4.30-5.90) m/uL Hgb 9.0 L (13.0-17.5) gm/dL Hct 28.6 L (39.0-53.0) % RDW 17.6 H (11.5-15.5) % Sodium 133 L (137-145) mmol/L Potassium 3.2 L (3.5-5.1) mmol/L BUN 23 H (9-20) mg/dL POC Glucose (mg/dL) 135 H (70-110) mg/dL Microbiology - Last 24 Hours (Table) 05/17/24 09:45 Gram Stain - Preliminary Pleural Fluid Body Fluid Culture - Preliminary Assessment and Plan Assessment: # Cardiac Debility secondary to redo, coronary artery bypass grafting x 2 with left thoracotomy approach, including right radial graft to the OM and SVG graft to the LAD # Acute Blood loss anemia intraoperative and postoperative s/p multiple blood product # postoperative mechanical ventilator -now on room air # chronic right pleural effusion. # Pain Management -Tylenol prn, Flexeril TID, Gabapentin 100 mg TID # Bowel/Bladder -nursing to manage # DVT Proph - Heparin SQ # Comorbidities: Coronary artery disease, with previous history of CABG over 20 years ago followed by subsequent PCI/stentingIschemic cardiomyopathy, recent echocardiogram 04/25/2024 estimates a severely reduced left ventricular ejection fraction of 20 to 25%, as well as, moderate mitral and tricuspid regurgitationHistory of hypertension, History of hyperlipidemia, History of tobacco dependence, Chronic obstructive pulmonary disease, History of obstructive sleep apnea, Chronic hypoxemic respiratory failure, History of asbestos exposure # Your medical dx and management Dispo: Patient is pending therapy evaluations, likely will need rehab given his current condition if can tolerate 3 hours/day of therapies. Will follow and make recommendations as appropriate. Patient will need insurance authorization. Patient seen and examined by Dr Martinez, note prepped by Chika Sheehan PA-C
[2024-05-20 11:40] LABS: Glucose,Whole Blood 98 mg/dL (70-110)
--- NOTE | 2024-05-20 11:43 | P.PN ---
Subjective Progress Note Date: 05/20/24 Principal diagnosis: Coronary artery disease. Patient is a 69-year-old white male brought in yesterday for an elective CABG x 2 redo. Past medical history significant for coronary artery disease status post CABG over 20 years ago in [place] followed by subsequent PCI/stenting, ischemic cardiomyopathy, hyperlipidemia, hypertension, chronic kidney disease, chronic ongoing tobacco dependence, COPD, obstructive sleep apnea, among other things. We were asked to see this patient for preoperative pulmonary clearance back in December,. A bedside FEV1 was performed which was 43% of predicted or 1.41 L indicating a severe degree of obstruction. At that time, we felt the patient to be at high risk for pulmonary complications perioperatively. Yesterday, patient underwent a redo off-pump coronary artery bypass grafting x 2 with a left thoracotomy approach. There was a right radial graft to the OM and a SVG graft to the LAD. Intraoperatively, the patient reportedly did have significant EBL of almost 4 L. He received multiple blood products so far including 3 units PRBCs, 2 FFP, 1 pack platelets, and 1 pooled cryoprecipitate. Also, has recieved 1.75 L of 5% albumin. 3 L crystalloid fluid. Patient was then transported to the intensive care unit in critical condition. He remains intubated to the mechanical ventilator. Current ventilator settings of assist-control, respiratory rate 12, tidal volume 550, FiO2 40%, and PEEP of 10. He is breathing above set rate. Peak pressures 26. No significant airway secretions. Propofol is infusing at 10 mcg/kg/min. ABGs done on the settings but an FiO2 of 100%, show a PaO2 of 281, pCO2 of 37, pH of 7.41. Postoperative chest x-ray shows postoperative changes, a chronic right pleural effusion with pulmonary vascular congestion. 2 left-sided chest tubes in place, no sizable pneumothoraces appreciated. Hemodynamics are marginal. He is on milrinone, which is currently infusing at 0.25 mcg/kg/min. Also, requiring norepinephrine for blood pressure support currently infusing at 0.1 mcg/kg/min. Normal saline infusing at 50 MLS per hour. There is no pulmonary artery catheter. CVP reading 12. He has 2 left-sided chest tubes divided anteriorly and posteriorly. Anterior chest tube has a total of 140 mL of serosanguineous output and the left posterior chest tube has a total of 430 mL of serosanguineous output. No significant air leaks. Most recent postoperative CBC: WBC count 8.3, hemoglobin 9.7, hematocrit 30.5, platelets 118. CMP: Sodium 137, potassium 4, chloride 108, serum bicarb 19, BUN 15, creatinine 0.72, glucose 108. He does have an indewelling urinary catheter. Received a dose of Lasix 20 mg earlier. He initially diuressed copiously. Urine output is currently in the order of 50-100 ml/hr. Earlier, patient's PEEP was dropped to 8, follow-up ABG, was satisfactory with a PaO2 of 94, pCO2 of 38, pH of 7.45. Reportedly, weaning trial was attempted earlier, per the rapid exudation protocol. Patient was unable to tolerate pressure support, he was reportedly anxious, tachypneic, and had high minute ventilation. He was transitioned to Precedex, but this did not help. On my follow-up evaluation, patient has had increasing vasopressor requirements. Vasopressin was added by CT surgery, which is infusing at physiological dose. In light of patient's hemodynamic instability and increasing vasopressor requirements. Will hold off on any further weaning attempts at this point. The patient is seen today 05/17/2024 in follow-up in the intensive care unit. He is currently sitting up in a chair awake and alert in no acute distress.O2 saturations in the 90s on room air. Chest x-ray does reveal increasing bilateral pleural effusions right greater than left. Follow-up ultrasound revealed a 6.6 cm pocket. He did undergo a right-sided thoracentesis with 2 L of cloudy yellow fluid removed. He tolerated the procedure well. Follow-up chest x-ray did not reveal evidence of pneumothorax. White count 10.5. Hemoglobin 9.2. Platelets 88,000. Sodium 133. Potassium 4.2. Bicarb 21. BUN 17. Creatinine 0.83. Glucose 118. he remains on bronchodilators. Continued with the incentive sagrario horne. Heparin for DVT prophylaxis. Progress note dated May 18, 2024. 69-year-old male seen today room to 265. The patient is on room air. He is getting saline at 30 cc an hour. The patient is postop day #3. It was a three- vessel bypass grafting. Clinically, the patient looks like he is doing relatively well. He has no specific complaints today. He denies any shortness of breath, cough, wheezing, chest tightness, or phlegm production. Current labs include a white count 9.2, hemoglobin 8.7, hematocrit 26.5, and a platelet count of 90,000. Sodium 129, potassium 4.3, chlorides 102, CO2 23, BUN 21, and creatinine 0.82. The patient had a thoracentesis done on the right side. It ap pears to be 8 transudate. The total protein is less than 3 g. The LDH is less than 200. Chest x-ray shows diffuse bilateral infiltrates, and mild pulmonary vascular congestion. Progress note dated May 19, 2024. 69-year-old male seen in room 265. The patient is doing relatively well. He is on room air. He is not getting any fluids. He is postop day #4. He likely will be discharged before and in the next day or 2. He had an uneventful night according to the nurse. Labs include a white count 7.4, hemoglobin 8.8, hematocrit 27.7, and a platelet count of 115,000. Sodium 131, potassium 3.6, chlorides 102, CO2 22, BUN 26, creatinine 0.82. Glucose is 109. Calcium 8.4, magnesium 2.1. Chest x-ray shows some mild fluid overload. Progress note dated May 20, 2024. 69-year-old male seen today in room 366. The patient is doing relatively well. He is on room air. No IV fluids. He has no specific complaints today. Labs include a white count 6.1, hemoglobin 9, hematocrit 28.6, platelet count normal. Sodium 133, potassium 3.2, chlorides 100, CO2 25, BUN 23, and creatinine 0.9. Glucose 98. Calcium 8.5. Magnesium 2.0. Chest x-ray is consistent with mild fluid overload, but is improved. Objective - Vital Signs Vital signs: Vital Signs Temp 98 F 05/20/24 08:00 Pulse 84 05/20/24 11:33 Resp 18 05/20/24 08:00 BP 134/64 05/20/24 08:00 Pulse Ox 92 L 05/20/24 08:20 FiO2 30 05/16/24 18:30 Intake & Output 05/19/24 05/20/24 05/20/24 18:59 06:59 18:59 Intake Total 700 140 128 Output Total 450 400 Balance 250 -260 128 Weight 88.5 kg Intake: IV 20 10 Invasive Line 1 20 10 Oral 700 120 118 Output: Urine 450 400 Other: Voiding Method Urinal Urinal # Voids 1 # Bowel Movements 2 ABP, PAP, CO, CI - Last Documented Arterial Blood Pressure 113/45 - Exam No acute distress, oriented 3. Currently, the patient is on room air. Saturation is 98 %. HEENT examination is grossly unremarkable. Mucous membranes are moist. No oral lesions. Neck supple. Full range of motion. No adenopathy thyromegaly or neck vein distention. Cardiovascular examination reveals regular rhythm rate. S1-S2 normal. No S3 or S4. No discernible murmur noted. Lungs reveal mild scattered rhonchi. No wheezes. No crackles. Breath sounds equal bilaterally. Abdomen soft bowel sounds are heard. No masses or tenderness. Extremities are intact. No cyanosis clubbing or edema. Skin is without rash or lesion. Neurologic examination is brief but nonfocal. - Labs CBC & Chem 7: 05/20/24 07:51 05/20/24 07:51 Labs: Abnormal Lab Results - Last 24 Hours (Table) 05/20/24 05/20/24 05/20/24 Range/Units 06:08 07:51 07:51 RBC 3.30 L (4.30-5.90) m/uL Hgb 9.0 L (13.0-17.5) gm/dL Hct 28.6 L (39.0-53.0) % RDW 17.6 H (11.5-15.5) % Sodium 133 L (137-145) mmol/L Potassium 3.2 L (3.5-5.1) mmol/L BUN 23 H (9-20) mg/dL POC Glucose (mg/dL) 135 H (70-110) mg/dL Microbiology - Last 24 Hours (Table) 05/17/24 09:45 Gram Stain - Preliminary Pleural Fluid Body Fluid Culture - Preliminary Assessment and Plan Assessment: Postoperative day #5 following an off-pump redo, coronary artery bypass grafting x 2 with left thoracotomy approach, including right radial graft to the OM and SVG graft to the LAD. Intraoperatively, patient had significant EBL of 4 L. Has received multiple blood product so far including 3 units PRBCs, 2 FFP, 1 pack platelets, 1 pooled cryoprecipitate, 1.75 L 5% albumin. Also received 3 L crystalloids. Routine postoperative ventilator management. Acute blood loss anemia, expected outcome of surgery, most recent hemoglobin 9.7 g/dL. Routine postoperative mechanical ventilator management, postoperative chest x- ray shows the endotracheal tube in satisfactory position approximately 4.2 cm above the flor, orogastric tube coursing below the diaphragm, right IJ central venous catheter with distal tip at the cavoatrial junction, left thoracotomy tubes in place without evidence of pneumothoraces. There is a chronic right pleural effusion. Pulmonary vascular congestion. Coronary artery disease, with previous history of CABG over 20 years ago followed by subsequent PCI/stenting. Ischemic cardiomyopathy, recent echocardiogram 04/25/2024 estimates a severely reduced left ventricular ejection fraction of 20 to 25%, as well as, moderate m itral and tricuspid regurgitation. History of hypertension. History of hyperlipidemia. History of tobacco dependence. Chronic obstructive pulmonary disease, bedside FEV1 was performed which was 43% of predicted or 1.41 L indicating a severe degree of obstruction. History of obstructive sleep apnea. Chronic hypoxemic respiratory failure, utilizes 3 L/min nasal cannula at home. Chronic right-sided pleural effusion, S/P thoracentesis, with 2 L removed. Fluid appears to be a transudate. History of asbestos exposure. Plan: Plan dated May 18 2024. The patient appears to be doing much better. The patient is currently on room air. He is getting saline at 30 cc an hour. Today is postoperative day #3. The patient had a three-vessel bypass surgery. Labs, x-rays, medications are reviewed. The patient had a thoracentesis performed, which revealed 2 L of transudative fluid. The LDH and protein were both in the transudative range. We will continue to follow make recommendations along the way. No additional recommendations at this time. We do encourage deep breathing, coughing, clearing of secretions, and hourly use of the incentive spirometer. Plan dated May 19, 2024. The patient appears to be doing relatively well. He is currently on room air. He is not receiving any IV fluids. He is postop day #4. The patient has no complaints. He denies any shortness of breath, cough, wheezing, chest tightness, or phlegm production. He also denies any chest pain or pressure. Labs, x-rays, medications are reviewed. We will continue to follow and make recommendations along the way. Plan dated May 20, 2024. The patient is seen today in room 366. He is on room air. No IV fluids. Labs, x-rays, medications are all reviewed. Clinically, the patient is doing better. We will continue to follow the patient. No additional recommendations at this time. We encourage deep breathing, coughing, clearing of secretions. We also recommend hourly use of the incentive spirometer. Time with Patient: Less than 30
[2024-05-20 13:50] LABS: Allen Test Performed? Yes
[2024-05-20 13:51] LABS: ABG Base Excess -1.7 mmol/L; ABG HCO3 24 mmol/L (21-25); ABG PCO2 46 mmHg (35-45); ABG PH 7.33 (7.35-7.45); ABG PO2 98 mmHg (83-108); ABG TCO2 23 mmol/L (19-24)
[2024-05-20 13:52] LABS: ABG Oxygen Saturation 96.9 % (94-97); ABG Potassium Whole Blood 4.2 mmol/L (3.4-4.5); ABG Sodium Whole Blood 136 mmol/L (135-146)
[2024-05-20 13:53] LABS: ABG Glucose Whole Blood 127 mg/dL (75-99); ABG Hematocrit 25 % (34.0-46.0)
[2024-05-20 13:54] LABS: ABG Ionized Calcium 4.4 mg/dL (4.5-5.3)
[2024-05-20 13:55] LABS: Allen Test Performed? Yes
[2024-05-20 13:56] LABS: Allen Test Performed? Yes
[2024-05-20 13:57] LABS: ABG HCO3 24 mmol/L (21-25); ABG PCO2 33 mmHg (35-45); ABG PH 7.46 (7.35-7.45); ABG PO2 331 mmHg (83-108); ABG TCO2 22 mmol/L (19-24); Allen Test Performed? Yes
[2024-05-20 13:58] LABS: ABG Glucose Whole Blood 117 mg/dL (75-99); ABG Hematocrit 29 % (34.0-46.0); ABG Lactic Acid Whole Blood 3.6 mmol/L (0.5-1.6); ABG Oxygen Saturation 99.4 % (94-97); ABG Potassium Whole Blood 4.1 mmol/L (3.4-4.5); ABG Sodium Whole Blood 139 mmol/L (135-146)
[2024-05-20 13:59] LABS: ABG Ionized Calcium 4.2 mg/dL (4.5-5.3)
[2024-05-20 14:02] LABS: ABG Base Excess -3.8 mmol/L; ABG Glucose Whole Blood 132 mg/dL (75-99); ABG HCO3 23 mmol/L (21-25); ABG Oxygen Saturation 94.5 % (94-97); ABG PCO2 46 mmHg (35-45); ABG PO2 76 mmHg (83-108); ABG Potassium Whole Blood 4.3 mmol/L (3.4-4.5); ABG Sodium Whole Blood 137 mmol/L (135-146); ABG TCO2 22 mmol/L (19-24)
[2024-05-20 14:03] LABS: ABG Hematocrit 27 % (34.0-46.0); ABG Ionized Calcium 4.2 mg/dL (4.5-5.3); ABG Lactic Acid Whole Blood 3.5 mmol/L (0.5-1.6)
[2024-05-20 14:05] LABS: ABG Base Excess -2.9 mmol/L; ABG HCO3 23 mmol/L (21-25); ABG Oxygen Saturation 98.2 % (94-97); ABG PCO2 46 mmHg (35-45); ABG PH 7.31 (7.35-7.45); ABG PO2 121 mmHg (83-108); ABG Sodium Whole Blood 137 mmol/L (135-146); ABG TCO2 23 mmol/L (19-24)
[2024-05-20 14:06] LABS: ABG Glucose Whole Blood 121 mg/dL (75-99); ABG Lactic Acid Whole Blood 2.2 mmol/L (0.5-1.6); ABG Potassium Whole Blood 4.1 mmol/L (3.4-4.5)
[2024-05-20 14:07] LABS: ABG Hematocrit 24 % (34.0-46.0); ABG Ionized Calcium 4.8 mg/dL (4.5-5.3)
[2024-05-20 14:19] VITALS: BMI 29.6
[2024-05-20 16:29] LABS: Glucose,Whole Blood 98 mg/dL (70-110)
[2024-05-20 19:50] LABS: Glucose,Whole Blood 99 mg/dL (70-110)
--- NOTE | 2024-05-20 20:02 | P.PN ---
Subjective Progress Note Date: 05/20/24 Patient is evaluated today on the medical floor evaluated today post operative day #5 re-do CABG x 2 vessel. Patient has no chest tubes noted. Patient continues to report significant incisional pain to the left chest surgical incision site. Chest xray today reveals acute left congestive failure although interval improvement noted. Patient received a dose of IV lasix yesterday and has been started on daily IV lasix today. Needs encouragement to be up out of bed for meals. Patients blood work today reveals white blood cell count 6.1, hgb 9.0, sodium 133, potassium 3.2, BUN 23, creatinine 0.90. Blood glucose remains controlled. review of Systems Constitutional: Denied any fatigue denied any fever. Cardio vascular: denied any chest pain, palpitations Gastrointestinal: denied any nausea, vomiting, diarrhea Pulmonary: Denied any shortness of breath cough Neurologic denied any new focal deficits All inpatient medications were reviewed and appropriate changes in these medications as dictated in the interval history and assessment and plan PHYSICAL EXAMINATION: GENERAL: The patient is alert and oriented x3, not in any acute distress. Well developed, well nourished. HEENT: Pupils are round and equally reacting to light. EOMI. No scleral icterus. No conjunctival pallor. Normocephalic, atraumatic. No pharyngeal erythema. No thyromegaly. CARDIOVASCULAR: S1 and S2 present. No murmurs, rubs, or gallops. PULMONARY: Chest is clear to auscultation, no wheezing or crackles. ABDOMEN: Soft, nontender, nondistended, normoactive bowel sounds. No palpable organomegaly. Patient has left chest wall incision clean dry intact. Chest tube site x 2 . Left chest tube site with serous drainage. MUSCULOSKELETAL: No joint swelling or deformity. EXTREMITIES: No cyanosis, clubbing, or pedal edema. NEUROLOGICAL: Gross neurological examination did not reveal any focal deficits. SKIN: No rashes. Assessment and Plan Coronary artery bypass grafting x 2 with left thoracotomy approach, off pump re- do Postoperative day #5 including right radial graft to the OM and SVG graft to the LAD. Acute blood loss anemia, expected outcome of surgery. Has received multiple blood products. Coronary artery disease, with previous history of CABG over 20 years ago followed by subsequent PCI/stenting. Ischemic cardiomyopathy, recent echocardiogram 04/25/2024 estimates a severely reduced left ventricular ejection fraction of 20 to 25%, moderate mitral and tricuspid regurgitation. History of hypertension. History of hyperlipidemia. Chronic hypoxemic respiratory failure, utilizes 3 L/min nasal cannula at home. History of COPD, oxygen dependent with no acute exacerbation Histor of obstructive sleep apnea. Chronic right-sided pleural effusion, S/P thoracentesis, with 2 L removed History of asbestos exposure. Smoking history GI prophylaxis DVT prophylaxis Full Code Plan Patient evaluated today in follow up on the cardiac stepdown unit Needs encouragement to get up out of bed Continue to encourage incentive spirometer 10 x an hour while awake. Potassium has been replaced Patient has been started on IV lasix daily by CT services Repeat blood work in the AM The impression and plan of care has been dictated by Nydia Sandoval Nurse Practitioner as directed. Dr. Hudson MD I have performed a history and physical examination and medical decision making of this patient, discussed the same with the dictator, and agree with the dictators assessment and plan as written, documented as a scribe. Based on total visit time, I have performed more than 50% of this visit. Objective - Vital Signs Vital signs: Vital Signs Temp 97.7 F 05/20/24 16:00 Pulse 91 05/20/24 16:00 Resp 18 05/20/24 16:00 BP 123/58 05/20/24 16:00 Pulse Ox 97 05/20/24 16:00 FiO2 30 05/16/24 18:30 Intake & Output 05/19/24 05/20/24 05/20/24 18:59 06:59 18:59 Intake Total 700 140 484 Output Total 450 400 650 Balance 250 -260 -166 Weight 88.5 kg 88.5 kg Intake: IV 20 10 Invasive Line 1 20 10 Oral 700 120 474 Output: Urine 450 400 650 Other: Voiding Method Urinal Urinal # Voids 1 # Bowel Movements 2 ABP, PAP, CO, CI - Last Documented Arterial Blood Pressure 113/45 - Labs CBC & Chem 7: 05/20/24 07:51 05/20/24 07:51 Labs: Abnormal Lab Results - Last 24 Hours (Table) 05/15/24 05/15/24 05/15/24 Range/Units 13:28 13:58 14:43 RBC (4.30-5.90) m/uL Hgb (13.0-17.5) gm/dL Hct (39.0-53.0) % RDW (11.5-15.5) % ABG pH 7.33 L 7.31 L 7.30 L (7.35-7.45) ABG pCO2 46 H 46 H 46 H (35-45) mmHg ABG pO2 121 H 76 L (83-108) mmHg ABG O2 Saturation 98.2 H (94-97) % ABG Hematocrit 25 L 24 L 27 L (34.0-46.0) % ABG Ionized Calcium 4.4 L 4.2 L (4.5-5.3) mg/dL ABG Glucose 127 H 121 H 132 H (75-99) mg/dL ABG Lactic Acid 2.0 H 2.2 H* 3.5 H* (0.5-1.6) mmol/L Hemoglobin 8.3 L 7.7 L 8.7 L (13.0-17.5) gm/dL Sodium (137-145) mmol/L Potassium (3.5-5.1) mmol/L BUN (9-20) mg/dL POC Glucose (mg/dL) (70-110) mg/dL Arterial Blood Glucose 127 H 121 H 132 H (75-99) mg/dL 05/15/24 05/20/24 05/20/24 Range/Units 15:15 06:08 07:51 RBC 3.30 L (4.30-5.90) m/uL Hgb 9.0 L (13.0-17.5) gm/dL Hct 28.6 L (39.0-53.0) % RDW 17.6 H (11.5-15.5) % ABG pH 7.46 H (7.35-7.45) ABG pCO2 33 L (35-45) mmHg ABG pO2 331 H (83-108) mmHg ABG O2 Saturation 99.4 H (94-97) % ABG Hematocrit 29 L (34.0-46.0) % ABG Ionized Calcium 4.2 L (4.5-5.3) mg/dL ABG Glucose 117 H (75-99) mg/dL ABG Lactic Acid 3.6 H* (0.5-1.6) mmol/L Hemoglobin 9.6 L (13.0-17.5) gm/dL Sodium (137-145) mmol/L Potassium (3.5-5.1) mmol/L BUN (9-20) mg/dL POC Glucose (mg/dL) 135 H (70-110) mg/dL Arterial Blood Glucose 117 H (75-99) mg/dL 05/20/24 Range/Units 07:51 RBC (4.30-5.90) m/uL Hgb (13.0-17.5) gm/dL Hct (39.0-53.0) % RDW (11.5-15.5) % ABG pH (7.35-7.45) ABG pCO2 (35-45) mmHg ABG pO2 (83-108) mmHg ABG O2 Saturation (94-97) % ABG Hematocrit (34.0-46.0) % ABG Ionized Calcium (4.5-5.3) mg/dL ABG Glucose (75-99) mg/dL ABG Lactic Acid (0.5-1.6) mmol/L Hemoglobin (13.0-17.5) gm/dL Sodium 133 L (137-145) mmol/L Potassium 3.2 L (3.5-5.1) mmol/L BUN 23 H (9-20) mg/dL POC Glucose (mg/dL) (70-110) mg/dL Arterial Blood Glucose (75-99) mg/dL Microbiology - Last 24 Hours (Table) 05/17/24 09:45 Gram Stain - Preliminary Pleural Fluid Body Fluid Culture - Preliminary Assessment and Plan Time with Patient: Less than 30
[2024-05-21 05:47] LABS: Glucose,Whole Blood 93 mg/dL (70-110)
[2024-05-21 06:20] LABS: Anisocytosis Slight; HCT 27.8 % (39.0-53.0); HGB 8.6 gm/dL (13.0-17.5); Hypochromasia Marked; MCH 27.2 pg (25.0-35.0); MCHC 31.1 g/dL (31.0-37.0); MCV 87.3 fL (80.0-100.0); Mean Platelet Volume 10.1; Platelet Count 172 k/uL (150-450); RBC 3.18 m/uL (4.30-5.90)
[2024-05-21 06:37] LABS: African American GFR (CKD) >90 (>60 ml/min/1.73 sqM); Anion Gap 7 mmol/L; Blood Urea Nitrogen 23 mg/dL (9-20); Calcium 8.3 mg/dL (8.4-10.2); Carbon Dioxide 26 mmol/L (22-30); Chloride 100 mmol/L (98-107); Glucose 84 mg/dL (74-99); Non-African American GFR(CKD) 81 (>60 ml/min/1.73 sqM); Potassium 3.7 mmol/L (3.5-5.1); Sodium 133 mmol/L (137-145)
--- NOTE | 2024-05-21 07:52 | P.PN ---
Subjective Progress Note Date: 05/21/24 Principal diagnosis: Triple-vessel coronary artery disease, unstable Angina. History of coronary artery disease with previous myocardial infarction and multiple stents as well as thrombectomy on Eliquis for anticoagulation, most recent PCI was to the SVG in 10/2022, as well as coronary artery bypass graft surgery approximately 20 years ago, ischemic cardiomyopathy, chronic systolic heart failure with reduced ejection fraction, hypertension, hyperlipidemia, left internal carotid artery stenosis, chronic kidney disease, chronic anemia, chronic ongoing tobacco use, severe COPD on home oxygen 2 L/min, obstructive sleep apnea, chronic back pain with history of back surgery, and family history of heart disease. POD #6 redo off pump coronary artery bypass grafting x 2 - left thoracotomy approach, endoscopic right radial and right greater saphenous vein harvest, graft flow measurements using the Medi-Stim flow meter system, cryo-ablation of intercostal nerves 6-9, trans-esophageal echo Intra and postoperative acute blood loss anemia and thrombocytopenia, expected given hemodilution as well as preoperative use of Plavix and Eliquis Hypotension requiring IV pressor use, expected given blood loss The patient was seen and examined this morning sitting up in bed on the cardiac stepdown unit in no acute distress. Currently on room air with oxygen saturations in the mid 90s. Remains in sinus rhythm, hemodynamically stable, SBP soft but MAPs have been stable. Chest x-ray, labs reviewed. Patient will need rehab at discharge, IPR physicians consulted, await decision for IPR vs [facility]. He did shower yesterday. States he did walk in the hallway yesterday with walker. No other new concerns. Does continue to complain of chronic pain, denies shortness of breath. Objective - Vital Signs Vital signs: Vital Signs Temp 97.8 F 05/21/24 04:00 Pulse 80 05/21/24 04:00 Resp 20 05/21/24 04:00 BP 96/61 05/21/24 04:00 Pulse Ox 93 L 05/21/24 04:00 FiO2 30 05/16/24 18:30 Intake & Output 05/20/24 05/21/24 05/21/24 18:59 06:59 18:59 Intake Total 484 10 Output Total 650 Balance -166 10 Weight 88.5 kg 102.3 kg Intake: IV 10 10 Invasive Line 1 10 Invasive Line 5 10 Oral 474 Output: Urine 650 Other: Voiding Method Urinal ABP, PAP, CO, CI - Last Documented Arterial Blood Pressure 113/45 - Exam CONSTITUTIONAL: Appears comfortable, cooperative this morning, no acute distress RESPIRATORY: Lungs sounds diminished in the bases bilaterally. Respirations even, nonlabored. Currently on room air with oxygen saturation 93%. CARDIOVASCULAR: S1, S2 present. Regular rate and rhythm, sinus rhythm on telemetry. Sternum stable. Palpable peripheral pulses bilaterally. Generalized edema present. No calf pain or tenderness noted. Heart hugger in place with patient occasionally demonstrating appropriate use. Antiembolism stockings, SCDs present. GASTROINTESTINAL: Abdomen soft, nontender, nondistended. Active bowel sounds present 4 quadrants. Tolerating minimal diet. Positive bowel movement 05/19 GENITOURINARY: Continues to void clear yellow urine INTEGUMENTARY: Skin is warm and dry. Anterior chest incision well approximated. Right radial artery as well as right lower extremity EVH site well approximated without redness or drainage. Few small tape calvillo present to left back NEUROLOGIC: Cranial nerves II through XII intact MUSKULOSKELETAL: Able to move all extremities, strength equal bilaterally, generalized weakness present, ambulating with walker PSYCHIATRIC: Alert and oriented to person place and time - Allied health notes Allied health notes reviewed: nursing - Labs CBC & Chem 7: 05/21/24 05:44 05/21/24 05:44 Labs: Abnormal Lab Results - Last 24 Hours (Table) 05/15/24 05/15/24 05/15/24 Range/Units 13:28 13:58 14:43 RBC (4.30-5.90) m/uL Hgb (13.0-17.5) gm/dL Hct (39.0-53.0) % RDW (11.5-15.5) % ABG pH 7.33 L 7.31 L 7.30 L (7.35-7.45) ABG pCO2 46 H 46 H 46 H (35-45) mmHg ABG pO2 121 H 76 L (83-108) mmHg ABG O2 Saturation 98.2 H (94-97) % ABG Hematocrit 25 L 24 L 27 L (34.0-46.0) % ABG Ionized Calcium 4.4 L 4.2 L (4.5-5.3) mg/dL ABG Glucose 127 H 121 H 132 H (75-99) mg/dL ABG Lactic Acid 2.0 H 2.2 H* 3.5 H* (0.5-1.6) mmol/L Hemoglobin 8.3 L 7.7 L 8.7 L (13.0-17.5) gm/dL Sodium (137-145) mmol/L Potassium (3.5-5.1) mmol/L BUN (9-20) mg/dL Calcium (8.4-10.2) mg/dL Arterial Blood Glucose 127 H 121 H 132 H (75-99) mg/dL 05/15/24 05/20/24 05/20/24 Range/Units 15:15 07:51 07:51 RBC 3.30 L (4.30-5.90) m/uL Hgb 9.0 L (13.0-17.5) gm/dL Hct 28.6 L (39.0-53.0) % RDW 17.6 H (11.5-15.5) % ABG pH 7.46 H (7.35-7.45) ABG pCO2 33 L (35-45) mmHg ABG pO2 331 H (83-108) mmHg ABG O2 Saturation 99.4 H (94-97) % ABG Hematocrit 29 L (34.0-46.0) % ABG Ionized Calcium 4.2 L (4.5-5.3) mg/dL ABG Glucose 117 H (75-99) mg/dL ABG Lactic Acid 3.6 H* (0.5-1.6) mmol/L Hemoglobin 9.6 L (13.0-17.5) gm/dL Sodium 133 L (137-145) mmol/L Potassium 3.2 L (3.5-5.1) mmol/L BUN 23 H (9-20) mg/dL Calcium (8.4-10.2) mg/dL Arterial Blood Glucose 117 H (75-99) mg/dL 05/21/24 05/21/24 Range/Units 05:44 05:44 RBC 3.18 L (4.30-5.90) m/uL Hgb 8.6 L (13.0-17.5) gm/dL Hct 27.8 L (39.0-53.0) % RDW 18.0 H (11.5-15.5) % ABG pH (7.35-7.45) ABG pCO2 (35-45) mmHg ABG pO2 (83-108) mmHg ABG O2 Saturation (94-97) % ABG Hematocrit (34.0-46.0) % ABG Ionized Calcium (4.5-5.3) mg/dL ABG Glucose (75-99) mg/dL ABG Lactic Acid (0.5-1.6) mmol/L Hemoglobin (13.0-17.5) gm/dL Sodium 133 L (137-145) mmol/L Potassium (3.5-5.1) mmol/L BUN 23 H (9-20) mg/dL Calcium 8.3 L (8.4-10.2) mg/dL Arterial Blood Glucose (75-99) mg/dL Microbiology - Last 24 Hours (Table) 05/17/24 09:45 Gram Stain - Preliminary Pleural Fluid Body Fluid Culture - Preliminary - Imaging and Cardiology Chest x-ray: image reviewed Assessment and Plan Assessment: Triple-vessel coronary artery disease, unstable angina with history of coronary artery disease/previous myocardial infarction/multiple stents/thrombectomy on Eliquis for anticoagulation/CABG 20 years ago, status post two-vessel redo off- pump CABG Right sided chronic effusion, status post thoracentesis by Dr. Nugent with removal of 2L straw colored fluid Ischemic cardiomyopathy/chronic systolic heart failure with reduced ejection fraction, EF 25-30% History of hypertension, currently off pressors Hyperlipidemia, treated with Zetia, patient has muscle pain with statins, cholesterol 121, LDL 52, triglycerides 180 Left internal carotid artery stenosis, 50-79% Chronic kidney disease, stage IIIb, baseline creatinine 1.6-1.7 Chronic anemia Chronic ongoing tobacco use Severe COPD on home oxygen 2 L/min, preoperative FEV1 43% of predicted Obstructive sleep apnea Chronic back pain with history of back surgery Family history of heart disease. Intra and postoperative acute blood loss anemia and thrombocytopenia, expected given hemodilution as well as preoperative use of Plavix and Eliquis Medical debility Noncompliance Plan: Continue to maximize medical therapy with low-dose aspirin, Plavix, statin, Zetia. Continue low dose beta-dorinda with hold parameters and uptitrate as able. Low dose EDER added yesterday due to low EF, hold parameters placed. Will reinitiate Eliquis at discharge Increase activity, ambulate as tolerated. PT/OT/cardiac rehab consulted Encourage incentive spirometry use 10 times every hour while awake, bronchodilators per pulmonology Will monitor daily labs and x-rays, electrolyte replacement per protocol. No further blood transfusion at this point. Continue IV Lasix GI/DVT prophylaxis Insulin management per internal medicine. Patient is not diabetic, preoperative hemoglobin A1c 5.5% Pain control per current medication regimen Continue to monitor and record strict accurate intake and output Daily weights Continue home medications of sodium bicarb, Neurontin, iron, vitamin D, Flexeril Patient will need rehab at discharge, consult placed for IPR physicians, await decision/insurance auth for IPR vs. [facility] More recommendations to follow as patient progresses
--- NOTE | 2024-05-21 08:15 | XR ---
EXAMINATION TYPE: XR chest 1V portable DATE OF EXAM: 05/21/2024 HISTORY: Shortness of breath. COMPARISON: 05/20/2024 TECHNIQUE: Single view of the chest is submitted. FINDINGS: Demonstrated are scattered senescent parenchymal change. Post CABG changes redemonstrated. There is c ontinued pulmonary venous congestion with scattered infiltrates, cardiomegaly and pleural effusions w ithout significant change. Hilar and mediastinal structures are within normal limits. Degenerative changes are seen of the dorsal spine. IMPRESSION: 1. . Post CABG changes redemonstrated. There is continued pulmonary venous congestion with scattered infiltrates, cardiomegaly and pleural effusions without significant change.
[2024-05-21] MEDS ORDERED: POTASSIUM BICARBONATE/CIT AC 20 MEQ TABLET.EFF PO SCH (09:00)
[2024-05-21] MEDS: FUROSEMIDE 10 MG/ML 2 ML VIAL IV SCH (09:14)
[2024-05-21] MEDS: POTASSIUM BICARBONATE/CIT AC 20 MEQ TABLET.EFF PO SCH (09:15)
--- NOTE | 2024-05-21 10:54 | P.PN ---
Subjective Progress Note Date: 05/21/24 Principal diagnosis: Coronary artery disease. Patient is a 69-year-old white male brought in yesterday for an elective CABG x 2 redo. Past medical history significant for coronary artery disease status post CABG over 20 years ago in [place] followed by subsequent PCI/stenting, ischemic cardiomyopathy, hyperlipidemia, hypertension, chronic kidney disease, chronic ongoing tobacco dependence, COPD, obstructive sleep apnea, among other things. We were asked to see this patient for preoperative pulmonary clearance back in December,. A bedside FEV1 was performed which was 43% of predicted or 1.41 L indicating a severe degree of obstruction. At that time, we felt the patient to be at high risk for pulmonary complications perioperatively. Yesterday, patient underwent a redo off-pump coronary artery bypass grafting x 2 with a left thoracotomy approach. There was a right radial graft to the OM and a SVG graft to the LAD. Intraoperatively, the patient reportedly did have significant EBL of almost 4 L. He received multiple blood products so far including 3 units PRBCs, 2 FFP, 1 pack platelets, and 1 pooled cryoprecipitate. Also, has recieved 1.75 L of 5% albumin. 3 L crystalloid fluid. Patient was then transported to the intensive care unit in critical condition. He remains intubated to the mechanical ventilator. Current ventilator settings of assist-control, respiratory rate 12, tidal volume 550, FiO2 40%, and PEEP of 10. He is breathing above set rate. Peak pressures 26. No significant airway secretions. Propofol is infusing at 10 mcg/kg/min. ABGs done on the settings but an FiO2 of 100%, show a PaO2 of 281, pCO2 of 37, pH of 7.41. Postoperative chest x-ray shows postoperative changes, a chronic right pleural effusion with pulmonary vascular congestion. 2 left-sided chest tubes in place, no sizable pneumothoraces appreciated. Hemodynamics are marginal. He is on milrinone, which is currently infusing at 0.25 mcg/kg/min. Also, requiring norepinephrine for blood pressure support currently infusing at 0.1 mcg/kg/min. Normal saline infusing at 50 MLS per hour. There is no pulmonary artery catheter. CVP reading 12. He has 2 left-sided chest tubes divided anteriorly and posteriorly. Anterior chest tube has a total of 140 mL of serosanguineous output and the left posterior chest tube has a total of 430 mL of serosanguineous output. No significant air leaks. Most recent postoperative CBC: WBC count 8.3, hemoglobin 9.7, hematocrit 30.5, platelets 118. CMP: Sodium 137, potassium 4, chloride 108, serum bicarb 19, BUN 15, creatinine 0.72, glucose 108. He does have an indewelling urinary catheter. Received a dose of Lasix 20 mg earlier. He initially diuressed copiously. Urine output is currently in the order of 50-100 ml/hr. Earlier, patient's PEEP was dropped to 8, follow-up ABG, was satisfactory with a PaO2 of 94, pCO2 of 38, pH of 7.45. Reportedly, weaning trial was attempted earlier, per the rapid exudation protocol. Patient was unable to tolerate pressure support, he was reportedly anxious, tachypneic, and had high minute ventilation. He was transitioned to Precedex, but this did not help. On my follow-up evaluation, patient has had increasing vasopressor requirements. Vasopressin was added by CT surgery, which is infusing at physiological dose. In light of patient's hemodynamic instability and increasing vasopressor requirements. Will hold off on any further weaning attempts at this point. The patient is seen today 05/17/2024 in follow-up in the intensive care unit. He is currently sitting up in a chair awake and alert in no acute distress.O2 saturations in the 90s on room air. Chest x-ray does reveal increasing bilateral pleural effusions right greater than left. Follow-up ultrasound revealed a 6.6 cm pocket. He did undergo a right-sided thoracentesis with 2 L of cloudy yellow fluid removed. He tolerated the procedure well. Follow-up chest x-ray did not reveal evidence of pneumothorax. White count 10.5. Hemoglobin 9.2. Platelets 88,000. Sodium 133. Potassium 4.2. Bicarb 21. BUN 17. Creatinine 0.83. Glucose 118. he remains on bronchodilators. Continued with the incentive sagrario horne. Heparin for DVT prophylaxis. Progress note dated May 18, 2024. 69-year-old male seen today room to 265. The patient is on room air. He is getting saline at 30 cc an hour. The patient is postop day #3. It was a three- vessel bypass grafting. Clinically, the patient looks like he is doing relatively well. He has no specific complaints today. He denies any shortness of breath, cough, wheezing, chest tightness, or phlegm production. Current labs include a white count 9.2, hemoglobin 8.7, hematocrit 26.5, and a platelet count of 90,000. Sodium 129, potassium 4.3, chlorides 102, CO2 23, BUN 21, and creatinine 0.82. The patient had a thoracentesis done on the right side. It ap pears to be 8 transudate. The total protein is less than 3 g. The LDH is less than 200. Chest x-ray shows diffuse bilateral infiltrates, and mild pulmonary vascular congestion. Progress note dated May 19, 2024. 69-year-old male seen in room 265. The patient is doing relatively well. He is on room air. He is not getting any fluids. He is postop day #4. He likely will be discharged before and in the next day or 2. He had an uneventful night according to the nurse. Labs include a white count 7.4, hemoglobin 8.8, hematocrit 27.7, and a platelet count of 115,000. Sodium 131, potassium 3.6, chlorides 102, CO2 22, BUN 26, creatinine 0.82. Glucose is 109. Calcium 8.4, magnesium 2.1. Chest x-ray shows some mild fluid overload. Progress note dated May 20, 2024. 69-year-old male seen today in room 366. The patient is doing relatively well. He is on room air. No IV fluids. He has no specific complaints today. Labs include a white count 6.1, hemoglobin 9, hematocrit 28.6, platelet count normal. Sodium 133, potassium 3.2, chlorides 100, CO2 25, BUN 23, and creatinine 0.9. Glucose 98. Calcium 8.5. Magnesium 2.0. Chest x-ray is consistent with mild fluid overload, but is improved. Progress note dated May 21, 2024. 69-year-old male seen today in room 366. Currently, he is on room air. No IV fluids. The Patient Is Being Evaluated for Possible Inpatient Rehabilitation. Current labs include a white count 5, hemoglobin 8.6, hematocrit 27.8, and a normal platelet count. Sodium 133, potassium 3.7, chlorides 100, CO2 26, BUN 23, creatinine 0.97. Glucose is 93. Calcium is 8.3. Magnesium is 2.0. Chest x-ray shows some very mild pulmonary venous congestion, as well as cardiomegaly. Objective - Vital Signs Vital signs: Vital Signs Temp 97.8 F 05/21/24 04:00 Pulse 80 05/21/24 08:41 Resp 20 05/21/24 04:00 BP 96/61 05/21/24 04:00 Pulse Ox 93 L 05/21/24 08:16 FiO2 30 05/16/24 18:30 Intake & Output 05/20/24 05/21/24 05/21/24 18:59 06:59 18:59 Intake Total 484 10 Output Total 650 400 Balance -166 10 -400 Weight 88.5 kg 102.3 kg Intake: IV 10 10 Invasive Line 1 10 Invasive Line 5 10 Oral 474 Output: Urine 650 400 Other: Voiding Method Urinal ABP, PAP, CO, CI - Last Documented Arterial Blood Pressure 113/45 - Exam No acute distress, oriented 3. Currently, the patient is on room air. Saturation is 95 %. HEENT examination is grossly unremarkable. Mucous membranes are moist. No oral lesions. Neck supple. Full range of motion. No adenopathy thyromegaly or neck vein distention. Cardiovascular examination reveals regular rhythm rate. S1-S2 normal. No S3 or S4. No discernible murmur noted. Heart rate is 80 bpm. Heart sounds are distant. Lungs reveal mild scattered rhonchi. No wheezes. No crackles. Breath sounds equal bilaterally. Saturations are 95% on room air. Abdomen soft bowel sounds are heard. No masses or tenderness. Extremities are intact. No cyanosis clubbing or edema. Skin is without rash or lesion. Neurologic examination is brief but nonfocal. - Labs CBC & Chem 7: 05/21/24 05:44 05/21/24 05:44 Labs: Abnormal Lab Results - Last 24 Hours (Table) 05/15/24 05/15/24 05/15/24 Range/Units 13:28 13:58 14:43 RBC (4.30-5.90) m/uL Hgb (13.0-17.5) gm/dL Hct (39.0-53.0) % RDW (11.5-15.5) % ABG pH 7.33 L 7.31 L 7.30 L (7.35-7.45) ABG pCO2 46 H 46 H 46 H (35-45) mmHg ABG pO2 121 H 76 L (83-108) mmHg ABG O2 Saturation 98.2 H (94-97) % ABG Hematocrit 25 L 24 L 27 L (34.0-46.0) % ABG Ionized Calcium 4.4 L 4.2 L (4.5-5.3) mg/dL ABG Glucose 127 H 121 H 132 H (75-99) mg/dL ABG Lactic Acid 2.0 H 2.2 H* 3.5 H* (0.5-1.6) mmol/L Hemoglobin 8.3 L 7.7 L 8.7 L (13.0-17.5) gm/dL Sodium (137-145) mmol/L BUN (9-20) mg/dL Calcium (8.4-10.2) mg/dL Arterial Blood Glucose 127 H 121 H 132 H (75-99) mg/dL 05/15/24 05/21/24 05/21/24 Range/Units 15:15 05:44 05:44 RBC 3.18 L (4.30-5.90) m/uL Hgb 8.6 L (13.0-17.5) gm/dL Hct 27.8 L (39.0-53.0) % RDW 18.0 H (11.5-15.5) % ABG pH 7.46 H (7.35-7.45) ABG pCO2 33 L (35-45) mmHg ABG pO2 331 H (83-108) mmHg ABG O2 Saturation 99.4 H (94-97) % ABG Hematocrit 29 L (34.0-46.0) % ABG Ionized Calcium 4.2 L (4.5-5.3) mg/dL ABG Glucose 117 H (75-99) mg/dL ABG Lactic Acid 3.6 H* (0.5-1.6) mmol/L Hemoglobin 9.6 L (13.0-17.5) gm/dL Sodium 133 L (137-145) mmol/L BUN 23 H (9-20) mg/dL Calcium 8.3 L (8.4-10.2) mg/dL Arterial Blood Glucose 117 H (75-99) mg/dL Microbiology - Last 24 Hours (Table) 05/17/24 09:45 Gram Stain - Preliminary Pleural Fluid Body Fluid Culture - Preliminary Assessment and Plan Assessment: Postoperative day #6 following an off-pump redo, coronary artery bypass grafting x 2 with left thoracotomy approach, including right radial graft to the OM and SVG graft to the LAD. Intraoperatively, patient had significant EBL of 4 L. Has received multiple blood product so far including 3 units PRBCs, 2 FFP, 1 pack platelets, 1 pooled cryoprecipitate, 1.75 L 5% albumin. Also received 3 L crystalloids. Routine postoperative ventilator management. Acute blood loss anemia, expected outcome of surgery, most recent hemoglobin 9.7 g/dL. Routine postoperative mechanical ventilator management, postoperative chest x- ray shows the endotracheal tube in satisfactory position approximately 4.2 cm above the flor, orogastric tube coursing below the diaphragm, right IJ central venous catheter with distal tip at the cavoatrial junction, left thoracotomy tubes in place without evidence of pneumothoraces. There is a chronic right pleural effusion. Pulmonary vascular congestion. Coronary artery disease, with previous history of CABG over 20 years ago followed by subsequent PCI/stenting. Ischemic cardiomyopathy, recent echocardiogram 04/25/2024 estimates a severely reduced left ventricular ejection fraction of 20 to 25%, as well as, moderate mitral and tricuspid regurgitation. History of hypertension. History of hyperlipidemia. History of tobacco dependence. Chronic obstructive pulmonary disease, bedside FEV1 was performed which was 43% of predicted or 1.41 L indicating a severe degree of obstruction. History of obstructive sleep apnea. Chronic hypoxemic respiratory failure, utilizes 3 L/min nasal cannula at home. Chronic right-sided pleural effusion, S/P thoracentesis, with 2 L removed. Fluid appears to be a transudate. History of asbestos exposure. Plan: Plan dated May 18 2024. The patient appears to be doing much better. The patient is currently on room air. He is getting saline at 30 cc an hour. Today is postoperative day #3. The patient had a three-vessel bypass surgery. Labs, x-rays, medications are reviewed. The patient had a thoracentesis performed, which revealed 2 L of transudative fluid. The LDH and protein were both in the transudative range. We will continue to follow make recommendations along the way. No additional recommendations at this time. We do encourage deep breathing, coughing, clearing of secretions, and hourly use of the incentive spirometer. Plan dated May 19, 2024. The patient appears to be doing relatively well. He is currently on room air. He is not receiving any IV fluids. He is postop day #4. The patient has no c omplaints. He denies any shortness of breath, cough, wheezing, chest tightness, or phlegm production. He also denies any chest pain or pressure. Labs, x-rays, medications are reviewed. We will continue to follow and make recommendations along the way. Plan dated May 20, 2024. The patient is seen today in room 366. He is on room air. No IV fluids. Labs, x-rays, medications are all reviewed. Clinically, the patient is doing better. We will continue to follow the patient. No additional recommendations at this time. We encourage deep breathing, coughing, clearing of secretions. We also recommend hourly use of the incentive spirometer. Plan dated May 21, 2024. The patient is seen today in room 366. He is on room air. He is not receiving any IV fluids. His respiratory status is stable. He denies any shortness of breath, cough, wheezing, chest tightness, or phlegm production. Labs, x-rays, medications are reviewed. We will continue to follow the patient. He is currently being evaluated for possible inpatient rehabilitation. Prognosis is guarded. Time with Patient: Less than 30
--- NOTE | 2024-05-21 11:38 | P.PN ---
Subjective HISTORY OF PRESENT ILLNESS: Patient examined this morning. Patient is sitting on the side of the bed. Patient currently denies chest pain or pressure. He reports mild shortness of breath. He remains on IV Lasix. Vital signs are stable. PHYSICAL EXAM: VITAL SIGNS: Reviewed. GENERAL: Well-developed in no acute distress. NECK: Supple. No JVD or thyromegaly LUNGS: Respirations even and unlabored. Lungs diminished with bibasilar crackles HEART: Regular rate and rhythm. S1 and S2 heard. EXTREMITIES: Normal range of motion. No clubbing or cyanosis. Peripheral pulses intact. Trace bilateral lower extremity edema ASSESSMENT: Status post redo off-pump CABG, x 2 vessels, History of coronary artery disease with previous stenting and CABG Right-sided pleural effusion, status postthoracentesis Ischemic cardiomyopathy Acute on chronic heart failure with reduced EF Hypertension Hyperlipidemia Chronic kidney disease COPD with home oxygen use History of obstructive sleep apnea PLAN: Continue postoperative management per CT surgery Continue IV Lasix Daily weights, accurate intake and output, and monitoring of kidney function Consider addition of Jardiance When patient's blood pressure is able to tolerate, recommend adding Aldactone Increase activity as tolerated Encourage use of incentive spirometer Further recommendations pending patient course Patient to follow-up postdischarge with Dr. Wiggins Nurse practitioner note has been reviewed by physician. Signing provider agrees with the documented findings, assessment, and plan of care documented by DATA CLERK as a scribe. Objective - Vital Signs Vital signs: Vital Signs Temp 97.8 F 05/21/24 04:00 Pulse 80 05/21/24 08:41 Resp 20 05/21/24 04:00 BP 96/61 05/21/24 04:00 Pulse Ox 93 L 05/21/24 08:16 FiO2 30 05/16/24 18:30 Intake & Output 05/20/24 05/21/24 05/21/24 18:59 06:59 18:59 Intake Total 484 10 Output Total 650 400 Balance -166 10 -400 Weight 88.5 kg 102.3 kg Intake: IV 10 10 Invasive Line 1 10 Invasive Line 5 10 Oral 474 Output: Urine 650 400 Other: Voiding Method Urinal ABP, PAP, CO, CI - Last Documented Arterial Blood Pressure 113/45 - Labs CBC & Chem 7: 05/21/24 05:44 05/21/24 05:44 Labs: Abnormal Lab Results - Last 24 Hours (Table) 05/15/24 05/15/24 05/15/24 Range/Units 13:28 13:58 14:43 RBC (4.30-5.90) m/uL Hgb (13.0-17.5) gm/dL Hct (39.0-53.0) % RDW (11.5-15.5) % ABG pH 7.33 L 7.31 L 7.30 L (7.35-7.45) ABG pCO2 46 H 46 H 46 H (35-45) mmHg ABG pO2 121 H 76 L (83-108) mmHg ABG O2 Saturation 98.2 H (94-97) % ABG Hematocrit 25 L 24 L 27 L (34.0-46.0) % ABG Ionized Calcium 4.4 L 4.2 L (4.5-5.3) mg/dL ABG Glucose 127 H 121 H 132 H (75-99) mg/dL ABG Lactic Acid 2.0 H 2.2 H* 3.5 H* (0.5-1.6) mmol/L Hemoglobin 8.3 L 7.7 L 8.7 L (13.0-17.5) gm/dL Sodium (137-145) mmol/L BUN (9-20) mg/dL Calcium (8.4-10.2) mg/dL Arterial Blood Glucose 127 H 121 H 132 H (75-99) mg/dL 05/15/24 05/21/24 05/21/24 Range/Units 15:15 05:44 05:44 RBC 3.18 L (4.30-5.90) m/uL Hgb 8.6 L (13.0-17.5) gm/dL Hct 27.8 L (39.0-53.0) % RDW 18.0 H (11.5-15.5) % ABG pH 7.46 H (7.35-7.45) ABG pCO2 33 L (35-45) mmHg ABG pO2 331 H (83-108) mmHg ABG O2 Saturation 99.4 H (94-97) % ABG Hematocrit 29 L (34.0-46.0) % ABG Ionized Calcium 4.2 L (4.5-5.3) mg/dL ABG Glucose 117 H (75-99) mg/dL ABG Lactic Acid 3.6 H* (0.5-1.6) mmol/L Hemoglobin 9.6 L (13.0-17.5) gm/dL Sodium 133 L (137-145) mmol/L BUN 23 H (9-20) mg/dL Calcium 8.3 L (8.4-10.2) mg/dL Arterial Blood Glucose 117 H (75-99) mg/dL Microbiology - Last 24 Hours (Table) 05/17/24 09:45 Gram Stain - Preliminary Pleural Fluid Body Fluid Culture - Preliminary
[2024-05-21 11:40] LABS: Glucose,Whole Blood 92 mg/dL (70-110)
--- NOTE | 2024-05-21 14:40 | P.PN ---
Subjective Progress Note Date: 05/21/24 Patient is evaluated today on the medical floor evaluated today post operative day #5 re-do CABG x 2 vessel. Patient has no chest tubes noted. Patient continues to report significant incisional pain to the left chest surgical incision site. Chest xray today reveals acute left congestive failure although interval improvement noted. Patient received a dose of IV lasix yesterday and has been started on daily IV lasix today. Needs encouragement to be up out of bed for meals. Patients blood work today reveals white blood cell count 6.1, hgb 9.0, sodium 133, potassium 3.2, BUN 23, creatinine 0.90. Blood glucose remains controlled. 05/21/2024 Patient is eval today in the medical floor in follow-up. Patient is postoperative day #6 redo coronary artery bypass grafting with a 2 vessels. Patient has no chest tubes in place he is continued on Tylenol for pain management encouraged using the incentive spirometer 10 times an hour while awake. Patient needs encouragement to be up out of the bed. He is continued on IV Lasix twice a day. Blood work today reveals a sodium level of 133, potassium 3.7 by BUN of 23 creatinine of 0.97. He is 93% on room air today. review of Systems Constitutional: Denied any fatigue denied any fever. Cardio vascular: denied any chest pain, palpitations Gastrointestinal: denied any nausea, vomiting, diarrhea Pulmonary: Denied any shortness of breath cough Neurologic denied any new focal deficits All inpatient medications were reviewed and appropriate changes in these medications as dictated in the interval history and assessment and plan PHYSICAL EXAMINATION: GENERAL: The patient is alert and oriented x3, not in any acute distress. Well developed, well nourished. HEENT: Pupils are round and equally reacting to light. EOMI. No scleral icterus. No conjunctival pallor. Normocephalic, atraumatic. No pharyngeal erythema. No thyromegaly. CARDIOVASCULAR: S1 and S2 present. No murmurs, rubs, or gallops. PULMONARY: Chest is clear to auscultation, no wheezing or crackles. ABDOMEN: Soft, nontender, nondistended, normoactive bowel sounds. No palpable or ganomegaly. Patient has left chest wall incision clean dry intact. Chest tube site x 2 . Left chest tube site with serous drainage. MUSCULOSKELETAL: No joint swelling or deformity. EXTREMITIES: No cyanosis, clubbing, or pedal edema. NEUROLOGICAL: Gross neurological examination did not reveal any focal deficits. SKIN: No rashes. Assessment and Plan Coronary artery bypass grafting x 2 with left thoracotomy approach, off pump re- do Postoperative day #5 including right radial graft to the OM and SVG graft to the LAD. Acute blood loss anemia, expected outcome of surgery. Has received multiple blood products. Coronary artery disease, with previous history of CABG over 20 years ago followed by subsequent PCI/stenting. Ischemic cardiomyopathy, recent echocardiogram 04/25/2024 estimates a severely reduced left ventricular ejection fraction of 20 to 25%, moderate mitral and tricuspid regurgitation. History of hypertension. History of hyperlipidemia. Chronic hypoxemic respiratory failure, utilizes 3 L/min nasal cannula at home. History of COPD, oxygen dependent with no acute exacerbation Histor of obstructive sleep apnea. Chronic right-sided pleural effusion, S/P thoracentesis, with 2 L removed History of asbestos exposure. Smoking history GI prophylaxis DVT prophylaxis Full Code Plan Patient evaluated today in follow up on the cardiac stepdown unit Needs encouragement to get up out of bed Continue to encourage incentive spirometer 10 x an hour while awake. Potassium has been replaced Patient has been started on IV lasix daily by CT services Repeat blood work in the AM The impression and plan of care has been dictated by Nydia Sandoval Nurse Practitioner as directed. Dr. Hudson MD I have performed a history and physical examination and medical decision making of this patient, discussed the same with the dictator, and agree with the dictators assessment and plan as written, documented as a scribe. Based on total visit time, I have performed more than 50% of this visit. Objective - Vital Signs Vital signs: Vital Signs Temp 97.8 F 05/21/24 04:00 Pulse 80 05/21/24 08:41 Resp 20 05/21/24 04:00 BP 96/61 05/21/24 04:00 Pulse Ox 93 L 05/21/24 08:16 FiO2 30 05/16/24 18:30 Intake & Output 05/20/24 05/21/24 05/21/24 18:59 06:59 18:59 Intake Total 484 10 Output Total 650 400 Balance -166 10 -400 Weight 88.5 kg 102.3 kg Intake: IV 10 10 Invasive Line 1 10 Invasive Line 5 10 Oral 474 Output: Urine 650 400 Other: Voiding Method Urinal ABP, PAP, CO, CI - Last Documented Arterial Blood Pressure 113/45 - Labs CBC & Chem 7: 05/21/24 05:44 05/21/24 05:44 Labs: Abnormal Lab Results - Last 24 Hours (Table) 05/15/24 05/15/24 05/15/24 Range/Units 13:28 13:58 14:43 RBC (4.30-5.90) m/uL Hgb (13.0-17.5) gm/dL Hct (39.0-53.0) % RDW (11.5-15.5) % ABG pH 7.33 L 7.31 L 7.30 L (7.35-7.45) ABG pCO2 46 H 46 H 46 H (35-45) mmHg ABG pO2 121 H 76 L (83-108) mmHg ABG O2 Saturation 98.2 H (94-97) % ABG Hematocrit 25 L 24 L 27 L (34.0-46.0) % ABG Ionized Calcium 4.4 L 4.2 L (4.5-5.3) mg/dL ABG Glucose 127 H 121 H 132 H (75-99) mg/dL ABG Lactic Acid 2.0 H 2.2 H* 3.5 H* (0.5-1.6) mmol/L Hemoglobin 8.3 L 7.7 L 8.7 L (13.0-17.5) gm/dL Sodium (137-145) mmol/L BUN (9-20) mg/dL Calcium (8.4-10.2) mg/dL Arterial Blood Glucose 127 H 121 H 132 H (75-99) mg/dL 05/15/24 05/21/24 05/21/24 Range/Units 15:15 05:44 05:44 RBC 3.18 L (4.30-5.90) m/uL Hgb 8.6 L (13.0-17.5) gm/dL Hct 27.8 L (39.0-53.0) % RDW 18.0 H (11.5-15.5) % ABG pH 7.46 H (7.35-7.45) ABG pCO2 33 L (35-45) mmHg ABG pO2 331 H (83-108) mmHg ABG O2 Saturation 99.4 H (94-97) % ABG Hematocrit 29 L (34.0-46.0) % ABG Ionized Calcium 4.2 L (4.5-5.3) mg/dL ABG Glucose 117 H (75-99) mg/dL ABG Lactic Acid 3.6 H* (0.5-1.6) mmol/L Hemoglobin 9.6 L (13.0-17.5) gm/dL Sodium 133 L (137-145) mmol/L BUN 23 H (9-20) mg/dL Calcium 8.3 L (8.4-10.2) mg/dL Arterial Blood Glucose 117 H (75-99) mg/dL Microbiology - Last 24 Hours (Table) 05/17/24 09:45 Gram Stain - Preliminary Pleural Fluid Body Fluid Culture - Preliminary Assessment and Plan Time with Patient: Less than 30
[2024-05-21] MEDS ORDERED: ALPRAZolam 1 MG TAB PO PRN (16:26)
[2024-05-21 16:39] LABS: Glucose,Whole Blood 90 mg/dL (70-110)
[2024-05-21 19:51] LABS: Glucose,Whole Blood 113 mg/dL (70-110)
[2024-05-21] MEDS: ALPRAZolam 1 MG TAB PO SCH (21:45)
[2024-05-22 06:26] LABS: Glucose,Whole Blood 81 mg/dL (70-110)
--- NOTE | 2024-05-22 07:02 | P.PN ---
Subjective Progress Note Date: 05/22/24 Principal diagnosis: Triple-vessel coronary artery disease, unstable Angina. History of coronary artery disease with previous myocardial infarction and multiple stents as well as thrombectomy on Eliquis for anticoagulation, most recent PCI was to the SVG in 10/2022, as well as coronary artery bypass graft surgery approximately 20 years ago, ischemic cardiomyopathy, chronic systolic heart failure with reduced ejection fraction, hypertension, hyperlipidemia, left internal carotid artery stenosis, chronic kidney disease, chronic anemia, chronic ongoing tobacco use, severe COPD on home oxygen 2 L/min, obstructive sleep apnea, chronic back pain with history of back surgery, and family history of heart disease. POD #7 redo off pump coronary artery bypass grafting x 2 - left thoracotomy approach, endoscopic right radial and right greater saphenous vein harvest, graft flow measurements using the Medi-Stim flow meter system, cryo-ablation of intercostal nerves 6-9, trans-esophageal echo Intra and postoperative acute blood loss anemia and thrombocytopenia, expected given hemodilution as well as preoperative use of Plavix and Eliquis Hypotension requiring IV pressor use, expected given blood loss The patient was seen and examined this morning sitting up in bed on the cardiac stepdown unit in no acute distress. Currently on room air with oxygen saturations in the mid 90s, does drop into the low 90s at night when sleeping. Remains in sinus rhythm, hemodynamically stable, SBP soft but MAPs have been stable. Chest x-ray, labs reviewed. Patient will need rehab at discharge, IPR physicians consulted, await decision for [facility]PR vs [facility], await bed availability and insurance auth. He has showered daily. States he did walk in the hallway yesterday with walker, getting farther every day. No other new concerns. Does continue to complain of chronic pain, denies shortness of breath. Objective - Vital Signs Vital signs: Vital Signs Temp 98 F 05/22/24 04:00 Pulse 68 05/22/24 04:00 Resp 18 05/22/24 04:00 BP 121/58 05/22/24 04:00 Pulse Ox 95 05/22/24 04:00 FiO2 30 05/16/24 18:30 Intake & Output 05/21/24 05/21/24 05/22/24 06:59 18:59 06:59 Intake Total 10 240 Output Total 1050 400 Balance 10 -810 -400 Weight 102.3 kg 102 kg Intake: IV 10 Invasive Line 5 10 Oral 240 Output: Urine 1050 200 Post Void Residual 200 Other: Voiding Method Urinal Urinal Urinal # Voids 1 # Bowel Movements 1 ABP, PAP, CO, CI - Last Documented Arterial Blood Pressure 113/45 - Exam CONSTITUTIONAL: Appears comfortable, cooperative this morning, no acute distress RESPIRATORY: Lungs sounds diminished in the bases bilaterally. Respirations even, nonlabored. Currently on room air with oxygen saturation 95%. Able to achieve 1500 mL on his incentive spirometry. CARDIOVASCULAR: S1, S2 present. Regular rate and rhythm, sinus rhythm on telemetry. Sternum stable. Palpable peripheral pulses bilaterally. Bilateral lower extremity edema present. No calf pain or tenderness noted. Heart hugger in place with patient occasionally demonstrating appropriate use. Antiembolism stockings, SCDs present. GASTROINTESTINAL: Abdomen soft, nontender, nondistended. Active bowel sounds present 4 quadrants. Tolerating minimal diet. Positive bowel movement 05/21 GENITOURINARY: Continues to void clear yellow urine, measured output 1250 mL in the last 24 hours INTEGUMENTARY: Skin is warm and dry. Anterior chest incision well approximated. Right radial artery as well as right lower extremity EVH site well approximated without redness or drainage. Few small tape calvillo present to left back NEUROLOGIC: Cranial nerves II through XII intact MUSKULOSKELETAL: Able to move all extremities, strength equal bilaterally, generalized weakness present, ambulating with walker PSYCHIATRIC: Alert and oriented to person place and time - Allied health notes Allied health notes reviewed: nursing - Labs CBC & Chem 7: 05/22/24 07:38 05/22/24 07:38 Labs: Abnormal Lab Results - Last 24 Hours (Table) 05/21/24 Range/Units 19:50 POC Glucose (mg/dL) 113 H (70-110) mg/dL Microbiology - Last 24 Hours (Table) 05/17/24 09:45 Gram Stain - Final Pleural Fluid Body Fluid Culture - Final - Imaging and Cardiology Chest x-ray: image reviewed Assessment and Plan Assessment: Triple-vessel coronary artery disease, unstable angina with history of coronary artery disease/previous myocardial infarction/multiple stents/thrombectomy on Eliquis for anticoagulation/CABG 20 years ago, status post two-vessel redo off- pump CABG Right sided chronic effusion, status post thoracentesis by Dr. Nugent with removal of 2L straw colored fluid Ischemic cardiomyopathy/chronic systolic heart failure with reduced ejection fraction, EF 25-30% History of hypertension, currently off pressors Hyperlipidemia, treated with Zetia, patient has muscle pain with statins, cholesterol 121, LDL 52, triglycerides 180 Left internal carotid artery stenosis, 50-79% Chronic kidney disease, stage IIIb, baseline creatinine 1.6-1.7 Chronic anemia Chronic ongoing tobacco use Severe COPD on home oxygen 2 L/min, preoperative FEV1 43% of predicted Obstructive sleep apnea Chronic back pain with history of back surgery Family history of heart disease. Intra and postoperative acute blood loss anemia and thrombocytopenia, expected given hemodilution as well as preoperative use of Plavix and Eliquis Medical debility Noncompliance Plan: Continue to maximize medical therapy with low-dose aspirin, Plavix, statin, Zetia. Continue low dose beta-dorinda with hold parameters and uptitrate as able. Low dose EDER added due to low EF, hold parameters placed, patient hasn't received last 2 days due to SBP<100. Will reinitiate Eliquis at discharge Increase activity, ambulate as tolerated. PT/OT/cardiac rehab consulted Encourage incentive spirometry use 10 times every hour while awake, bronchodilators per pulmonology Will monitor daily labs and x-rays, electrolyte replacement per protocol. No further blood transfusion at this point. Continue IV Lasix GI/DVT prophylaxis Insulin management per internal medicine. Patient is not diabetic, preoperative hemoglobin A1c 5.5% Pain control per current medication regimen Continue to monitor and record strict accurate intake and output Daily weights Continue home medications of sodium bicarb, Neurontin, iron, vitamin D, Flexeril Patient will need rehab at discharge, await decision/bed availability/insurance auth for [facility] vs. [facility] More recommendations to follow as patient progresses
--- NOTE | 2024-05-22 08:00 | XR ---
EXAMINATION TYPE: XR chest 2V DATE OF EXAM: 05/22/2024 COMPARISON: 05/21/2024 HISTORY: Shortness of breath TECHNIQUE: Frontal and lateral views of the chest are obtained. FINDINGS: Scattered senescent parenchymal changes noted. Hyperinflation compatible with COPD. Again noted are changes of median sternotomy and CABG. Persistent pulmonary venous congestion with sm all effusions and scattered interstitial and alveolar infiltrates. Mediastinal structures are stable and grossly unremarkable. No evidence for hilar prominence. Degenerative changes dorsal spine. IMPRESSION: 1. No significant interval change appreciated.
[2024-05-22 08:38] LABS: Anisocytosis Slight; HCT 28.7 % (39.0-53.0); HGB 8.9 gm/dL (13.0-17.5); Hypochromasia Marked; MCH 27.6 pg (25.0-35.0); MCV 88.9 fL (80.0-100.0); Mean Platelet Volume 9.8; Platelet Count 222 k/uL (150-450); RBC 3.23 m/uL (4.30-5.90); RDW 18.2 % (11.5-15.5); WBC 5.8 k/uL (3.8-10.6)
[2024-05-22 08:40] LABS: Anion Gap 9 mmol/L; Blood Urea Nitrogen 21 mg/dL (9-20); Calcium 8.4 mg/dL (8.4-10.2); Carbon Dioxide 27 mmol/L (22-30); Chloride 98 mmol/L (98-107); Glucose 100 mg/dL (74-99); Potassium 3.7 mmol/L (3.5-5.1); Sodium 134 mmol/L (137-145)
[2024-05-22 08:41] LABS: African American GFR (CKD) 88 (>60 ml/min/1.73 sqM); Non-African American GFR(CKD) 76 (>60 ml/min/1.73 sqM)
--- NOTE | 2024-05-22 11:25 | P.PN ---
Subjective Progress Note Date: 05/22/24 Principal diagnosis: Coronary artery disease. Patient is a 69-year-old white male brought in yesterday for an elective CABG x 2 redo. Past medical history significant for coronary artery disease status post CABG over 20 years ago in [place] followed by subsequent PCI/stenting, ischemic cardiomyopathy, hyperlipidemia, hypertension, chronic kidney disease, chronic ongoing tobacco dependence, COPD, obstructive sleep apnea, among other things. We were asked to see this patient for preoperative pulmonary clearance back in December,. A bedside FEV1 was performed which was 43% of predicted or 1.41 L indicating a severe degree of obstruction. At that time, we felt the patient to be at high risk for pulmonary complications perioperatively. Yesterday, patient underwent a redo off-pump coronary artery bypass grafting x 2 with a left thoracotomy approach. There was a right radial graft to the OM and a SVG graft to the LAD. Intraoperatively, the patient reportedly did have significant EBL of almost 4 L. He received multiple blood products so far including 3 units PRBCs, 2 FFP, 1 pack platelets, and 1 pooled cryoprecipitate. Also, has recieved 1.75 L of 5% albumin. 3 L crystalloid fluid. Patient was then transported to the intensive care unit in critical condition. He remains intubated to the mechanical ventilator. Current ventilator settings of assist-control, respiratory rate 12, tidal volume 550, FiO2 40%, and PEEP of 10. He is breathing above set rate. Peak pressures 26. No significant airway secretions. Propofol is infusing at 10 mcg/kg/min. ABGs done on the settings but an FiO2 of 100%, show a PaO2 of 281, pCO2 of 37, pH of 7.41. Postoperative chest x-ray shows postoperative changes, a chronic right pleural effusion with pulmonary vascular congestion. 2 left-sided chest tubes in place, no sizable pneumothoraces appreciated. Hemodynamics are marginal. He is on milrinone, which is currently infusing at 0.25 mcg/kg/min. Also, requiring norepinephrine for blood pressure support currently infusing at 0.1 mcg/kg/min. Normal saline infusing at 50 MLS per hour. There is no pulmonary artery catheter. CVP reading 12. He has 2 left-sided chest tubes divided anteriorly and posteriorly. Anterior chest tube has a total of 140 mL of serosanguineous output and the left posterior chest tube has a total of 430 mL of serosanguineous output. No significant air leaks. Most recent postoperative CBC: WBC count 8.3, hemoglobin 9.7, hematocrit 30.5, platelets 118. CMP: Sodium 137, potassium 4, chloride 108, serum bicarb 19, BUN 15, creatinine 0.72, glucose 108. He does have an indewelling urinary catheter. Received a dose of Lasix 20 mg earlier. He initially diuressed copiously. Urine output is currently in the order of 50-100 ml/hr. Earlier, patient's PEEP was dropped to 8, follow-up ABG, was satisfactory with a PaO2 of 94, pCO2 of 38, pH of 7.45. Reportedly, weaning trial was attempted earlier, per the rapid exudation protocol. Patient was unable to tolerate pressure support, he was reportedly anxious, tachypneic, and had high minute ventilation. He was transitioned to Precedex, but this did not help. On my follow-up evaluation, patient has had increasing vasopressor requirements. Vasopressin was added by CT surgery, which is infusing at physiological dose. In light of patient's hemodynamic instability and increasing vasopressor requirements. Will hold off on any further weaning attempts at this point. The patient is seen today 05/17/2024 in follow-up in the intensive care unit. He is currently sitting up in a chair awake and alert in no acute distress.O2 saturations in the 90s on room air. Chest x-ray does reveal increasing bilateral pleural effusions right greater than left. Follow-up ultrasound revealed a 6.6 cm pocket. He did undergo a right-sided thoracentesis with 2 L of cloudy yellow fluid removed. He tolerated the procedure well. Follow-up chest x-ray did not reveal evidence of pneumothorax. White count 10.5. Hemoglobin 9.2. Platelets 88,000. Sodium 133. Potassium 4.2. Bicarb 21. BUN 17. Creatinine 0.83. Glucose 118. he remains on bronchodilators. Continued with the incentive sagrario horne. Heparin for DVT prophylaxis. Progress note dated May 18, 2024. 69-year-old male seen today room to 265. The patient is on room air. He is getting saline at 30 cc an hour. The patient is postop day #3. It was a three- vessel bypass grafting. Clinically, the patient looks like he is doing relatively well. He has no specific complaints today. He denies any shortness of breath, cough, wheezing, chest tightness, or phlegm production. Current labs include a white count 9.2, hemoglobin 8.7, hematocrit 26.5, and a platelet count of 90,000. Sodium 129, potassium 4.3, chlorides 102, CO2 23, BUN 21, and creatinine 0.82. The patient had a thoracentesis done on the right side. It ap pears to be 8 transudate. The total protein is less than 3 g. The LDH is less than 200. Chest x-ray shows diffuse bilateral infiltrates, and mild pulmonary vascular congestion. Progress note dated May 19, 2024. 69-year-old male seen in room 265. The patient is doing relatively well. He is on room air. He is not getting any fluids. He is postop day #4. He likely will be discharged before and in the next day or 2. He had an uneventful night according to the nurse. Labs include a white count 7.4, hemoglobin 8.8, hematocrit 27.7, and a platelet count of 115,000. Sodium 131, potassium 3.6, chlorides 102, CO2 22, BUN 26, creatinine 0.82. Glucose is 109. Calcium 8.4, magnesium 2.1. Chest x-ray shows some mild fluid overload. Progress note dated May 20, 2024. 69-year-old male seen today in room 366. The patient is doing relatively well. He is on room air. No IV fluids. He has no specific complaints today. Labs include a white count 6.1, hemoglobin 9, hematocrit 28.6, platelet count normal. Sodium 133, potassium 3.2, chlorides 100, CO2 25, BUN 23, and creatinine 0.9. Glucose 98. Calcium 8.5. Magnesium 2.0. Chest x-ray is consistent with mild fluid overload, but is improved. Progress note dated May 21, 2024. 69-year-old male seen today in room 366. Currently, he is on room air. No IV fluids. The Patient Is Being Evaluated for Possible Inpatient Rehabilitation. Current labs include a white count 5, hemoglobin 8.6, hematocrit 27.8, and a normal platelet count. Sodium 133, potassium 3.7, chlorides 100, CO2 26, BUN 23, creatinine 0.97. Glucose is 93. Calcium is 8.3. Magnesium is 2.0. Chest x-ray shows some very mild pulmonary venous congestion, as well as cardiomegaly. Progress note dated May 22, 2024. The patient is seen today in room 366. He is on room air. He is not receiving any IV fluids. He has no specific complaints. Specifically, he denies any shortness of breath, cough, wheezing, chest tightness, or phlegm production. He also denies any chest pain or pressure. Current labs include white count 5.8, hemoglobin 8.9, hematocrit 28.7, and a normal platelet count. Sodium 134, potassium 3.7, chlorides 98, CO2 27, BUN 21, creatinine 1.02. Glucose is 88. Calcium 8.4, and magnesium is 2. Chest x-ray is essentially unchanged. Objective - Vital Signs Vital signs: Vital Signs Temp 97.5 F L 05/22/24 08:00 Pulse 88 05/22/24 08:38 Resp 18 05/22/24 08:00 BP 96/57 05/22/24 08:00 Pulse Ox 92 L 05/22/24 08:00 FiO2 30 05/16/24 18:30 Intake & Output 05/21/24 05/22/24 05/22/24 18:59 06:59 18:59 Intake Total 240 Output Total 1050 400 Balance -810 -400 Weight 102 kg Intake: Oral 240 Output: Urine 1050 200 Post Void Residual 200 Other: Voiding Method Urinal Urinal Urinal # Voids 1 # Bowel Movements 1 ABP, PAP, CO, CI - Last Documented Arterial Blood Pressure 113/45 - Exam No acute distress, oriented 3. Currently, the patient is on room air. Saturation is 97 %. HEENT examination is grossly unremarkable. Mucous membranes are moist. No oral lesions. Neck supple. Full range of motion. No adenopathy thyromegaly or neck vein distention. Cardiovascular examination reveals regular rhythm rate. S1-S2 normal. No S3 or S4. No discernible murmur noted. Heart rate is 84 bpm. Heart sounds are distant. Lungs reveal mild scattered rhonchi. No wheezes. No crackles. Breath sounds equal bilaterally. Saturations are 95% on room air. Abdomen soft bowel sounds are heard. No masses or tenderness. Extremities are intact. No cyanosis clubbing or edema. Skin is without rash or lesion. Neurologic examination is brief but nonfocal. - Labs CBC & Chem 7: 05/22/24 07:38 05/22/24 07:38 Labs: Abnormal Lab Results - Last 24 Hours (Table) 05/21/24 05/22/24 05/22/24 Range/Units 19:50 07:38 07:38 RBC 3.23 L (4.30-5.90) m/uL Hgb 8.9 L (13.0-17.5) gm/dL Hct 28.7 L (39.0-53.0) % RDW 18.2 H (11.5-15.5) % Sodium 134 L (137-145) mmol/L BUN 21 H (9-20) mg/dL Glucose 100 H (74-99) mg/dL POC Glucose (mg/dL) 113 H (70-110) mg/dL Microbiology - Last 24 Hours (Table) 05/17/24 09:45 Gram Stain - Final Pleural Fluid Body Fluid Culture - Final Assessment and Plan Assessment: Postoperative day #7 following an off-pump redo, coronary artery bypass grafting x 2 with left thoracotomy approach, including right radial graft to the OM and SVG graft to the LAD. Intraoperatively, patient had significant EBL of 4 L. Has received multiple blood product so far including 3 units PRBCs, 2 FFP, 1 p ack platelets, 1 pooled cryoprecipitate, 1.75 L 5% albumin. Also received 3 L crystalloids. Routine postoperative ventilator management. Acute blood loss anemia, expected outcome of surgery, most recent hemoglobin 9.7 g/dL. Routine postoperative mechanical ventilator management, postoperative chest x- ray shows the endotracheal tube in satisfactory position approximately 4.2 cm above the flor, orogastric tube coursing below the diaphragm, right IJ central venous catheter with distal tip at the cavoatrial junction, left thoracotomy tubes in place without evidence of pneumothoraces. There is a chronic right pleural effusion. Pulmonary vascular congestion. Coronary artery disease, with previous history of CABG over 20 years ago followed by subsequent PCI/stenting. Ischemic cardiomyopathy, recent echocardiogram 04/25/2024 estimates a severely reduced left ventricular ejection fraction of 20 to 25%, as well as, moderate mitral and tricuspid regurgitation. History of hypertension. History of hyperlipidemia. History of tobacco dependence. Chronic obstructive pulmonary disease, bedside FEV1 was performed which was 43% of predicted or 1.41 L indicating a severe degree of obstruction. History of obstructive sleep apnea. Chronic hypoxemic respiratory failure, utilizes 3 L/min nasal cannula at home. Chronic right-sided pleural effusion, S/P thoracentesis, with 2 L removed. Fluid appears to be a transudate. History of asbestos exposure. Plan: Plan dated May 18 2024. The patient appears to be doing much better. The patient is currently on room air. He is getting saline at 30 cc an hour. Today is postoperative day #3. Th e patient had a three-vessel bypass surgery. Labs, x-rays, medications are reviewed. The patient had a thoracentesis performed, which revealed 2 L of transudative fluid. The LDH and protein were both in the transudative range. We will continue to follow make recommendations along the way. No additional recommendations at this time. We do encourage deep breathing, coughing, clearing of secretions, and hourly use of the incentive spirometer. Plan dated May 19, 2024. The patient appears to be doing relatively well. He is currently on room air. He is not receiving any IV fluids. He is postop day #4. The patient has no complaints. He denies any shortness of breath, cough, wheezing, chest tightness, or phlegm production. He also denies any chest pain or pressure. Labs, x-rays, medications are reviewed. We will continue to follow and make recommendations along the way. Plan dated May 20, 2024. The patient is seen today in room 366. He is on room air. No IV fluids. Labs, x-rays, medications are all reviewed. Clinically, the patient is doing better. We will continue to follow the patient. No additional recommendations at this time. We encourage deep breathing, coughing, clearing of secretions. We also recommend hourly use of the incentive spirometer. Plan dated May 21, 2024. The patient is seen today in room 366. He is on room air. He is not receiving any IV fluids. His respiratory status is stable. He denies any shortness of breath, cough, wheezing, chest tightness, or phlegm production. Labs, x-rays, medications are reviewed. We will continue to follow the patient. He is currently being evaluated for possible inpatient rehabilitation. Prognosis is guarded. Plan dated May 22, 2024. The patient is doing about the same. He has no specific complaints. He denies any shortness of breath, cough, wheezing, chest tightness, or phlegm production. He also denies any chest pain or pressure. He is on room air. Is not receiving any IV fluids. Labs, x-rays, and medications are all reviewed. Prognosis is guarded. Hopeful discharge soon. We recommend that he continue using the incentive spirometer, as frequently as possible. Time with Patient: Less than 30
[2024-05-22 11:57] LABS: Glucose,Whole Blood 85 mg/dL (70-110)
--- NOTE | 2024-05-22 12:36 | P.PN ---
Subjective Progress Note Date: 05/22/24 Patient is evaluated today on the medical floor evaluated today post operative day #5 re-do CABG x 2 vessel. Patient has no chest tubes noted. Patient continues to report significant incisional pain to the left chest surgical incision site. Chest xray today reveals acute left congestive failure although interval improvement noted. Patient received a dose of IV lasix yesterday and has been started on daily IV lasix today. Needs encouragement to be up out of bed for meals. Patients blood work today reveals white blood cell count 6.1, hgb 9.0, sodium 133, potassium 3.2, BUN 23, creatinine 0.90. Blood glucose remains controlled. 05/21/2024 Patient is eval today in the medical floor in follow-up. Patient is postoperative day #6 redo coronary artery bypass grafting with a 2 vessels. Patient has no chest tubes in place he is continued on Tylenol for pain management encouraged using the incentive spirometer 10 times an hour while awake. Patient needs encouragement to be up out of the bed. He is continued on IV Lasix twice a day. Blood work today reveals a sodium level of 133, potassium 3.7 by BUN of 23 creatinine of 0.97. He is 93% on room air today. 05/22/2024 Patient seen and evaluated in follow-up today and per nursing staff has not been getting up much although patient reports he was sitting up in the chair. Patient with poor inspiration and diminished breath sounds with faint crackles noted at the bases is being maintained on IV Lasix daily per CT surgery services. Patient to be evaluated by physical therapy and work with them daily and will likely need ECF on discharge. Patient reports to tolerating diet although reports not much of an appetite. Continue monitoring Accu-Cheks before meals and at bedtime and will titrate medications accordingly. Review of Systems Constitutional: Denied any fatigue denied any fever. Cardio vascular: denied any chest pain, palpitations Gastrointestinal: denied any nausea, vomiting, diarrhea Pulmonary: Denied any shortness of breath cough Neurologic denied any new focal deficits, reports feeling weak All inpatient medications were reviewed and appropriate changes in these medications as dictated in the interval history and assessment and plan PHYSICAL EXAMINATION: GENERAL: The patient is alert and oriented x3, not in any acute distress. Well developed, well nourished. Elderly appearing, obese HEENT: Pupils are round and equally reacting to light. EOMI. No scleral icterus. No conjunctival pallor. Normocephalic, atraumatic. No pharyngeal erythema. No thyromegaly. CARDIOVASCULAR: S1 and S2 present. No murmurs, rubs, or gallops. PULMONARY: Diminished breath sounds bilaterally otherwise chest is clear to auscultation, no wheezing or crackles. ABDOMEN: Soft, nontender, nondistended, normoactive bowel sounds. No palpable organomegaly. Patient has left chest wall incision clean dry intact. MUSCULOSKELETAL: No joint swelling or deformity. EXTREMITIES: No cyanosis, clubbing, or pedal edema. NEUROLOGICAL: Gross neurological examination did not reveal any focal deficits. Diffusely weak SKIN: No rashes. Assessment: Coronary artery bypass grafting x 2 with left thoracotomy approach, off pump re- do Postoperative day #5 including right radial graft to the OM and SVG graft to the LAD. Acute blood loss anemia, expected outcome of surgery. Has received multiple blood products. Coronary artery disease, with previous history of CABG over 20 years ago followed by subsequent PCI/stenting. Ischemic cardiomyopathy, recent echocardiogram 04/25/2024 estimates a severely reduced left ventricular ejection fraction of 20 to 25%, moderate mitral and tricuspid regurgitation. History of hypertension. History of hyperlipidemia. Chronic hypoxemic respiratory failure, utilizes 3 L/min nasal cannula at home. History of COPD, oxygen dependent with no acute exacerbation Histor of obstructive sleep apnea. Chronic right-sided pleural effusion, S/P thoracentesis, with 2 L removed History of asbestos exposure. Obesity with a BMI of 34.2 Smoking history GI prophylaxis DVT prophylaxis Full Code Plan : Patient evaluated today in follow up on the cardiac stepdown unit Needs encouragement to get up out of bed. Patient reports he was up in the chair although needs reencouragement frequently to get up and walk more frequently. Would recommend PT/OT therapy daily Consult to case management for possible ECF on discharge Continue to encourage incentive spirometer 10 x an hour while awake. Patient is receiving IV Lasix daily per CT surgery services and reports some minimal improvement in overall swelling and breathing We will continue to follow with CT surgery during hospitalization. Thank you kindly for this consultation. The impression and plan of care has been dictated by Avis Prieto, Nurse Practitioner as directed. Dr. Hudson MD I have performed a history and physical examination and medical decision making of this patient, discussed the same with the dictator, and agree with the dictators assessment and plan as written, documented as a scribe. Based on total visit time, I have performed more than 50% of this visit. Objective - Vital Signs Vital signs: Vital Signs Temp 98 F 05/22/24 04:00 Pulse 88 05/22/24 08:38 Resp 18 05/22/24 04:00 BP 121/58 05/22/24 04:00 Pulse Ox 95 05/22/24 04:00 FiO2 30 05/16/24 18:30 Intake & Output 05/21/24 05/22/24 05/22/24 18:59 06:59 18:59 Intake Total 240 Output Total 1050 400 Balance -810 -400 Weight 102 kg Intake: Oral 240 Output: Urine 1050 200 Post Void Residual 200 Other: Voiding Method Urinal Urinal # Voids 1 # Bowel Movements 1 ABP, PAP, CO, CI - Last Documented Arterial Blood Pressure 113/45 - Labs CBC & Chem 7: 05/22/24 07:38 05/22/24 07:38 Labs: Abnormal Lab Results - Last 24 Hours (Table) 05/21/24 05/22/24 05/22/24 Range/Units 19:50 07:38 07:38 RBC 3.23 L (4.30-5.90) m/uL Hgb 8.9 L (13.0-17.5) gm/dL Hct 28.7 L (39.0-53.0) % RDW 18.2 H (11.5-15.5) % Sodium 134 L (137-145) mmol/L BUN 21 H (9-20) mg/dL Glucose 100 H (74-99) mg/dL POC Glucose (mg/dL) 113 H (70-110) mg/dL Microbiology - Last 24 Hours (Table) 05/17/24 09:45 Gram Stain - Final Pleural Fluid Body Fluid Culture - Final
--- NOTE | 2024-05-22 13:31 | P.PN ---
Subjective HISTORY OF PRESENT ILLNESS: Patient examined this morning. Patient is sitting on the side of the bed. Patient currently denies chest pain or pressure. He reports mild shortness of breath. He remains on IV Lasix. Vital signs are stable. 05/22/2024 Patient examined this morning. Patient is tired and sleepy at the time of examination. He currently denies chest pain or pressure. He reports mild shortness of breath. He continues to have lower extremity Colette. He remains on IV diuretics. PHYSICAL EXAM: VITAL SIGNS: Reviewed. GENERAL: Well-developed in no acute distress. NECK: Supple. No JVD or thyromegaly LUNGS: Respirations even and unlabored. Lungs diminished with bibasilar crackles HEART: Regular rate and rhythm. S1 and S2 heard. EXTREMITIES: Normal range of motion. No clubbing or cyanosis. Peripheral pulses intact. Trace bilateral lower extremity edema ASSESSMENT: Status post redo off-pump CABG, x 2 vessels, History of coronary artery disease with previous stenting and CABG Right-sided pleural effusion, status postthoracentesis Ischemic cardiomyopathy Acute on chronic heart failure with reduced EF Hypertension Hyperlipidemia Chronic kidney disease COPD with home oxygen use History of obstructive sleep apnea PLAN: Continue postoperative management per CT surgery Continue IV Lasix Daily weights, accurate intake and output, and monitoring of kidney function Consider addition of Jardiance When patient's blood pressure is able to tolerate, recommend adding Aldactone Increase activity as tolerated Encourage use of incentive spirometer Further recommendations pending patient course Patient to follow-up postdischarge with Dr. Wiggins Nurse practitioner note has been reviewed by physician. Signing provider agrees with the documented findings, assessment, and plan of care documented by GENERAL PRACTICE as a scribe. Objective - Vital Signs Vital signs: Vital Signs Temp 97.5 F L 05/22/24 08:00 Pulse 88 05/22/24 08:38 Resp 18 05/22/24 08:00 BP 96/57 05/22/24 08:00 Pulse Ox 92 L 05/22/24 08:00 FiO2 30 05/16/24 18:30 Intake & Output 05/21/24 05/22/24 05/22/24 18:59 06:59 18:59 Intake Total 240 Output Total 1050 400 400 Balance -810 -400 -400 Weight 102 kg Intake: Oral 240 Output: Urine 1050 200 400 Post Void Residual 200 Other: Voiding Method Urinal Urinal Urinal # Voids 1 # Bowel Movements 1 ABP, PAP, CO, CI - Last Documented Arterial Blood Pressure 113/45 - Labs CBC & Chem 7: 05/22/24 07:38 05/22/24 07:38 Labs: Abnormal Lab Results - Last 24 Hours (Table) 05/21/24 05/22/24 05/22/24 Range/Units 19:50 07:38 07:38 RBC 3.23 L (4.30-5.90) m/uL Hgb 8.9 L (13.0-17.5) gm/dL Hct 28.7 L (39.0-53.0) % RDW 18.2 H (11.5-15.5) % Sodium 134 L (137-145) mmol/L BUN 21 H (9-20) mg/dL Glucose 100 H (74-99) mg/dL POC Glucose (mg/dL) 113 H (70-110) mg/dL Microbiology - Last 24 Hours (Table) 05/17/24 09:45 Gram Stain - Final Pleural Fluid Body Fluid Culture - Final
[2024-05-22 16:49] LABS: Glucose,Whole Blood 85 mg/dL (70-110)
--- NOTE | 2024-05-22 17:41 | CA ---
Transthoracic Echo Report Name: Israel Simmons Age: 69 Gender: M : 1955 Exam Date: 05/22/2024 15:53 Exam Location: [facility] Ht (in): 68 Wt (lb): 224 Ordering Physician: Leticia Rascon Attending/Referring Phys: [id number], Abiodun Plaster Form Maker Emilie Stuart RDCS Procedure CPT: Indications: re-eval EF Cardiac Hx: Technical Quality: Technically difficult study Contrast 1: Definity Total Dose (mL): 2 Contrast 2: Total Dose (mL): MEASUREMENTS (Male / Female) Normal Values 2D ECHO LV Diastolic Diameter PLAX 6.2 cm 4.2 - 5.9 / 3.9 - 5.3 cm LV Systolic Diameter PLAX 5.6 cm IVS Diastolic Thickness 0.8 cm 0.6 - 1.0 / 0.6 - 0.9 cm LVPW Diastolic Thickness 1.2 cm 0.6 - 1.0 / 0.6 - 0.9 cm LV Relative Wall Thickness 0.3 LV Diastolic Volume MOD BP 197.7 cm??? 67 - 155 / 56 - 104 cm??? LV Systolic Volume MOD BP 152.0 cm??? 22 - 58 / 19 - 49 cm??? LV Ejection Fraction MOD BP 23.1 % >= 55 % LV Cardiac Index MOD BP 1650.5 cm???/min???m??? LV Diastolic Volume MOD 4C 183.9 cm??? LV Systolic Volume MOD 4C 121.3 cm??? LV Ejection Fraction MOD 4C 34.0 % LV Cardiac Index MOD 4C 2257.8 cm???/min???m??? LV Diastolic Length 4C 8.7 cm LV Systolic Length 4C 7.8 cm LV Diastolic Volume MOD 2C 210.9 cm??? LV Systolic Volume MOD 2C 169.6 cm??? LV Ejection Fraction MOD 2C 19.6 % LV Cardiac Index MOD 2C 1489.5 cm???/min???m??? LV Diastolic Length 2C 8.8 cm LV Systolic Length 2C 8.8 cm FINDINGS Left Ventricle Left ventricular ejection fraction is estimated at 20-25 %. Mildly increased left ventricular diastolic diameter. Moderately increased left ventricular diastolic volume. Severely increased left ventricular systolic volume. Severely decreased left ventricular ejection fraction with regional variability. Right Ventricle Right ventricle not well visualized. Right Atrium Right atrium not well visualized. Left Atrium Left atrium not well visualized. Mitral Valve Structurally normal mitral valve. Aortic Valve Aortic valve not well visualized. Tricuspid Valve Structurally normal tricuspid valve. Pulmonic Valve Pulmonic valve not well visualized. Pericardium No pericardial effusion. Aorta Aortic root and proximal ascending aorta not well visualized. CONCLUSIONS Severe LV systolic dysfunction with an ejection fraction of 20-25% Severely hypokinetic anterior wall anteroseptal and anterolateral wall Previewed by: Dr. Joao Flood MD (Electronically Signed) Final Date: 22 May 2024 17:40
[2024-05-22 20:14] LABS: Glucose,Whole Blood 135 mg/dL (70-110)
[2024-05-23 06:02] LABS: Glucose,Whole Blood 117 mg/dL (70-110)
[2024-05-23 07:01] LABS: Anisocytosis Slight; HCT 30.4 % (39.0-53.0); HGB 9.2 gm/dL (13.0-17.5); Hypochromasia Marked; MCH 27.3 pg (25.0-35.0); MCHC 30.4 g/dL (31.0-37.0); MCV 89.9 fL (80.0-100.0); Mean Platelet Volume 9.5; Platelet Count 249 k/uL (150-450); RBC 3.38 m/uL (4.30-5.90); RDW 18.2 % (11.5-15.5); WBC 5.6 k/uL (3.8-10.6)
[2024-05-23 07:34] LABS: African American GFR (CKD) 89 (>60 ml/min/1.73 sqM); Anion Gap 10 mmol/L; Blood Urea Nitrogen 20 mg/dL (9-20); Calcium 8.7 mg/dL (8.4-10.2); Carbon Dioxide 24 mmol/L (22-30); Chloride 100 mmol/L (98-107); Glucose 99 mg/dL (74-99); Magnesium 1.9 mg/dL (1.6-2.3); Non-African American GFR(CKD) 77 (>60 ml/min/1.73 sqM); Potassium 3.8 mmol/L (3.5-5.1); Sodium 134 mmol/L (137-145)
--- NOTE | 2024-05-23 07:45 | XR ---
EXAMINATION TYPE: XR chest 2V DATE OF EXAM: 05/23/2024 COMPARISON: 05/22/2024 HISTORY: Shortness of breath TECHNIQUE: Frontal and lateral views of the chest are obtained. FINDINGS: Scattered senescent parenchymal changes noted. Hyperinflation compatible with COPD. Postoperative sussy nges of median sternotomy and CABG. Stable cardiomegaly with pulmonary venous congestion and small right-sided effusion. Mediastinal stru ctures are stable and grossly unremarkable. No evidence for hilar prominence. Degenerative changes dorsal spine. IMPRESSION: 1. Stable chest.
--- NOTE | 2024-05-23 08:34 | US ---
EXAMINATION TYPE: US chest DATE OF EXAM: 05/23/2024 COMPARISON: CLINICAL INDICATION: Male, 69 years old with history of trina for thoracentesis; TECHNIQUE: Targeted ultrasound of the posterior lower right hemithorax EXAM MEASUREMENTS: Right Pleural Effusion pocket size: 11.5 cm Right skin surface to fluid distance: 3.0 cm Right side marked for possible thoracentesis outside the dept. Pulmonologists are able to review the images in the patient?s EMR. IMPRESSIONS: As above
--- NOTE | 2024-05-23 09:15 | P.PN ---
Subjective Progress Note Date: 05/23/24 Principal diagnosis: Triple-vessel coronary artery disease, unstable Angina. History of coronary artery disease with previous myocardial infarction and multiple stents as well as thrombectomy on Eliquis for anticoagulation, most recent PCI was to the SVG in 10/2022, as well as coronary artery bypass graft surgery approximately 20 years ago, ischemic cardiomyopathy, chronic systolic heart failure with reduced ejection fraction, hypertension, hyperlipidemia, left internal carotid artery stenosis, chronic kidney disease, chronic anemia, chronic ongoing tobacco use, severe COPD on home oxygen 2 L/min, obstructive sleep apnea, chronic back pain with history of back surgery, and family history of heart disease. POD #8 redo off pump coronary artery bypass grafting x 2 - left thoracotomy approach, endoscopic right radial and right greater saphenous vein harvest, graft flow measurements using the Medi-Stim flow meter system, cryo-ablation of intercostal nerves 6-9, trans-esophageal echo Intra and postoperative acute blood loss anemia and thrombocytopenia, expected given hemodilution as well as preoperative use of Plavix and Eliquis Hypotension requiring IV pressor use, expected given blood loss, resolved The patient was seen and examined this morning sitting up in bed on the cardiac stepdown unit in no acute distress. Currently on room air with oxygen saturatio ns in the mid 90s, does drop into the low 90s at night when sleeping. Remains in sinus rhythm, hemodynamically stable, SBP soft but MAPs have been stable. Chest x-ray, labs reviewed. Ultrasound of the right chest was ordered, demonstrates 11.5 cm fluid pocket. Recommend rehab at discharge, patient does not qualify for IPR due to to his insurance, he does not want to go to subacute rehab so likely will have to go home with home care. He is very very high risk for readmission. He has showered daily. States he did walk in the hallway again yesterday with walker, getting farther every day. No other new concerns. Does continue to complain of chronic pain, denies shortness of breath. Limited echo repeated yesterday, EF 20 to 25%. Objective - Vital Signs Vital signs: Vital Signs Temp 98.2 F 05/23/24 08:15 Pulse 88 05/23/24 08:41 Resp 18 05/23/24 08:15 BP 114/71 05/23/24 08:15 Pulse Ox 98 05/23/24 08:15 FiO2 30 05/16/24 18:30 Intake & Output 05/22/24 05/23/24 05/23/24 18:59 06:59 18:59 Intake Total 0 480 Output Total 400 1350 Balance -400 -870 Weight 101 kg Intake: Oral 0 480 Output: Urine 400 1350 Other: Voiding Method Urinal Urinal # Bowel Movements 0 ABP, PAP, CO, CI - Last Documented Arterial Blood Pressure 113/45 - Exam CONSTITUTIONAL: Appears comfortable, cooperative this morning, no acute distress RESPIRATORY: Lungs sounds diminished in the bases bilaterally, right greater than left. Respirations even, nonlabored. Currently on room air with oxygen saturation 98%. Able to achieve 1500 mL on his incentive spirometry. CARDIOVASCULAR: S1, S2 present. Regular rate and rhythm, sinus rhythm on tel emetry. Sternum stable. Palpable peripheral pulses bilaterally. Bilateral lower extremity edema present. No calf pain or tenderness noted. Heart hugger in place with patient occasionally demonstrating appropriate use. Antiembolism stockings, SCDs present. GASTROINTESTINAL: Abdomen soft, nontender, nondistended. Active bowel sounds present 4 quadrants. Tolerating minimal diet. Positive bowel movement 05/22 GENITOURINARY: Continues to void clear yellow urine, measured output 1750 mL in the last 24 hours INTEGUMENTARY: Skin is warm and dry. Anterior chest incision well approximated. Right radial artery as well as right lower extremity EVH site well approximated without redness or drainage. Few small tape calvillo present to left back, healing NEUROLOGIC: Cranial nerves II through XII intact MUSKULOSKELETAL: Able to move all extremities, strength equal bilaterally, generalized weakness present, ambulating with walker PSYCHIATRIC: Alert and oriented to person place and time - Allied health notes Allied health notes reviewed: nursing - Labs CBC & Chem 7: 05/23/24 06:14 05/23/24 06:14 Labs: Abnormal Lab Results - Last 24 Hours (Table) 05/22/24 05/23/24 05/23/24 Range/Units 20:11 06:00 06:14 RBC 3.38 L (4.30-5.90) m/uL Hgb 9.2 L (13.0-17.5) gm/dL Hct 30.4 L (39.0-53.0) % MCHC 30.4 L (31.0-37.0) g/dL RDW 18.2 H (11.5-15.5) % Sodium (137-145) mmol/L POC Glucose (mg/dL) 135 H 117 H (70-110) mg/dL 05/23/24 Range/Units 06:14 RBC (4.30-5.90) m/uL Hgb (13.0-17.5) gm/dL Hct (39.0-53.0) % MCHC (31.0-37.0) g/dL RDW (11.5-15.5) % Sodium 134 L (137-145) mmol/L POC Glucose (mg/dL) (70-110) mg/dL - Imaging and Cardiology Chest x-ray: report reviewed, image reviewed Assessment and Plan Assessment: Triple-vessel coronary artery disease, unstable angina with history of coronary artery disease/previous myocardial infarction/multiple stents/thrombectomy on Eliquis for anticoagulation/CABG 20 years ago, status post two-vessel redo off- pump CABG Right sided chronic effusion, status post thoracentesis by Dr. Nugent with removal of 2L straw colored fluid Ischemic cardiomyopathy/chronic systolic heart failure with reduced ejection fraction, EF 25-30%, repeat limited echo done yesterday demonstrates EF 20-25% History of hypertension, currently off pressors Hyperlipidemia, treated with Zetia, patient has muscle pain with statins, cholesterol 121, LDL 52, triglycerides 180 Left internal carotid artery stenosis, 50-79% Chronic kidney disease, stage IIIb, baseline creatinine 1.6-1.7 Chronic anemia Chronic ongoing tobacco use Severe COPD on home oxygen 2 L/min, preoperative FEV1 43% of predicted Obstructive sleep apnea Chronic back pain with history of back surgery Family history of heart disease. Intra and postoperative acute blood loss anemia and thrombocytopenia, expected given hemodilution as well as preoperative use of Plavix and Eliquis Medical debility Noncompliance Plan: Continue to maximize medical therapy with low-dose aspirin, Plavix, statin, Zetia. Continue low dose beta-dorinda with hold parameters and uptitrate as able. Low dose EDER added due to low EF, hold parameters placed, patient hasn't received last 3 days due to SBP<100 Would like to add Aldactone, Entresto and discontinue EDER, however blood pressure likely will not tolerate Will reinitiate Eliquis at discharge Increase activity, ambulate as tolerated. PT/OT/cardiac rehab consulted Encourage incentive spirometry use 10 times every hour while awake, bronchodilat ors per pulmonology. Will leave the decision to pulmonology regarding repeat thoracentesis to right chest Will monitor daily labs and x-rays, electrolyte replacement per protocol. No further blood transfusion at this point. Continue IV Lasix GI/DVT prophylaxis Insulin management per internal medicine. Patient is not diabetic, preoperative hemoglobin A1c 5.5% Pain control per current medication regimen Continue to monitor and record strict accurate intake and output Daily weights Continue home medications of sodium bicarb, Neurontin, iron, vitamin D, Flexeril Patient will would benefit from rehab at discharge to improve strength and mobility, however patient does not want to go to rehab making him high risk for readmission More recommendations to follow as patient progresses
--- NOTE | 2024-05-23 11:33 | XR ---
EXAMINATION TYPE: XR chest 1V portable DATE OF EXAM: 05/23/2024 HISTORY: Status post thoracentesis COMPARISON: Study from earlier in the day TECHNIQUE: Single view of the chest is submitted. FINDINGS: Demonstrated are scattered senescent parenchymal change. No evidence for pneumothorax. Slight diminution in right-sided pleural effusion. Continued cardiomega ly with pulmonary venous congestion. Hilar and mediastinal structures are within normal limits. Degenerative changes are seen of the dorsal spine. IMPRESSION: 1. No evidence for pneumothorax. Slight diminution in right-sided pleural effusion. Continued cardio megaly with pulmonary venous congestion.
[2024-05-23 11:34] LABS: Glucose,Whole Blood 116 mg/dL (70-110)
--- NOTE | 2024-05-23 11:41 | PCN ---
PROCEDURE NOTE PROCEDURE: Right-sided thoracentesis. PREOPERATIVE DIAGNOSIS: Right pleural effusion. POSTOPERATIVE DIAGNOSIS: Right pleural effusion. There was informed consent. There was universal timeout. The patient's procedure took place in room 366. FIRST ACIDIZER: Dr. Asha Johnson. We were also assisted by Dr. Barragan and Dr. Vailente. Indication Pleural effusion. A time-out was completed verifying correct patient, procedure, site, positioning , and implant (s) or special equipment if applicable. Ultrasound guidance was/was not used and appropriate fluid pocket was identified and marked. Patient was positioned, prepped and draped in usual sterile fashion. Lidocaine was used to anesthetize the area. A Thoracentesis catheter was introduced into the pleural space and fluid was removed. Blood loss was none. 1.7 L of yellow fluid was removed from the right pleural space. The patient tolerated the procedure well. There was no immediate complication. A chest x-ray was ordered to rule out pneumothorax. The fluid was not sent for analysis. MMODL / IJN: [id number] /
--- NOTE | 2024-05-23 12:44 | P.PN ---
Subjective HISTORY OF PRESENT ILLNESS: Patient examined this morning. Patient is sitting on the side of the bed. Patient currently denies chest pain or pressure. He reports mild shortness of breath. He remains on IV Lasix. Vital signs are stable. 05/22/2024 Patient examined this morning. Patient is tired and sleepy at the time of examination. He currently denies chest pain or pressure. He reports mild shortness of breath. He continues to have lower extremity Colette. He remains on IV diuretics. 05/23/2024 Patient examined this morning. He is sitting on the side of the bed. Patient currently denies chest pain or pressure. He denies shortness of breath. He is on room air with oxygen saturations greater than 92%. He underwent thoracentesis today with removal of 1.7 L. PHYSICAL EXAM: VITAL SIGNS: Reviewed. GENERAL: Well-developed in no acute distress. NECK: Supple. No JVD or thyromegaly LUNGS: Respirations even and unlabored. Lungs diminished HEART: Regular rate and rhythm. S1 and S2 heard. EXTREMITIES: Normal range of motion. No clubbing or cyanosis. Peripheral pulses intact. Trace bilateral lower extremity edema ASSESSMENT: Status post redo off-pump CABG, x 2 vessels, History of coronary artery disease with previous stenting and CABG Right-sided pleural effusion, status postthoracentesis Ischemic cardiomyopathy Acute on chronic heart failure with reduced EF Hypertension Hyperlipidemia Chronic kidney disease COPD with home oxygen use History of obstructive sleep apnea PLAN: Continue postoperative management per CT surgery Continue IV Lasix Daily weights, accurate intake and output, and monitoring of kidney function Add Jardiance and low-dose Aldactone Increase activity as tolerated Encourage use of incentive spirometer Further recommendations pending patient course Patient to follow-up postdischarge with Dr. Wiggins Nurse practitioner note has been reviewed by physician. Signing provider agrees with the documented findings, assessment, and plan of care documented by BRADDISHER as a scribe. Objective - Vital Signs Vital signs: Vital Signs Temp 98.2 F 05/23/24 08:15 Pulse 88 05/23/24 11:26 Resp 18 05/23/24 08:15 BP 114/71 05/23/24 08:15 Pulse Ox 98 05/23/24 08:15 FiO2 30 05/16/24 18:30 Intake & Output 07/24/24 07/25/24 07/25/24 18:59 06:59 18:59 Intake Total 0 480 356 Output Total 400 1350 Balance -400 -870 356 Weight 101 kg Intake: Oral 0 480 356 Output: Urine 400 1350 Other: Voiding Method Urinal Urinal # Bowel Movements 0 ABP, PAP, CO, CI - Last Documented Arterial Blood Pressure 113/45 - Labs CBC & Chem 7: 05/23/24 06:14 05/23/24 06:14 Labs: Abnormal Lab Results - Last 24 Hours (Table) 05/22/24 05/23/24 05/23/24 Range/Units 20:11 06:00 06:14 RBC 3.38 L (4.30-5.90) m/uL Hgb 9.2 L (13.0-17.5) gm/dL Hct 30.4 L (39.0-53.0) % MCHC 30.4 L (31.0-37.0) g/dL RDW 18.2 H (11.5-15.5) % Sodium (137-145) mmol/L POC Glucose (mg/dL) 135 H 117 H (70-110) mg/dL 05/23/24 05/23/24 Range/Units 06:14 11:33 RBC (4.30-5.90) m/uL Hgb (13.0-17.5) gm/dL Hct (39.0-53.0) % MCHC (31.0-37.0) g/dL RDW (11.5-15.5) % Sodium 134 L (137-145) mmol/L POC Glucose (mg/dL) 116 H (70-110) mg/dL
--- NOTE | 2024-05-23 13:22 | P.PN ---
Subjective Progress Note Date: 05/23/24 Principal diagnosis: Coronary artery disease. Patient is a 69-year-old white male brought in yesterday for an elective CABG x 2 redo. Past medical history significant for coronary artery disease status post CABG over 20 years ago in [place] followed by subsequent PCI/stenting, ischemic cardiomyopathy, hyperlipidemia, hypertension, chronic kidney disease, chronic ongoing tobacco dependence, COPD, obstructive sleep apnea, among other things. We were asked to see this patient for preoperative pulmonary clearance back in December,. A bedside FEV1 was performed which was 43% of predicted or 1.41 L indicating a severe degree of obstruction. At that time, we felt the patient to be at high risk for pulmonary complications perioperatively. Yesterday, patient underwent a redo off-pump coronary artery bypass grafting x 2 with a left thoracotomy approach. There was a right radial graft to the OM and a SVG graft to the LAD. Intraoperatively, the patient reportedly did have significant EBL of almost 4 L. He received multiple blood products so far including 3 units PRBCs, 2 FFP, 1 pack platelets, and 1 pooled cryoprecipitate. Also, has recieved 1.75 L of 5% albumin. 3 L crystalloid fluid. Patient was then transported to the intensive care unit in critical condition. He remains intubated to the mechanical ventilator. Current ventilator settings of assist-control, respiratory rate 12, tidal volume 550, FiO2 40%, and PEEP of 10. He is breathing above set rate. Peak pressures 26. No significant airway secretions. Propofol is infusing at 10 mcg/kg/min. ABGs done on the settings but an FiO2 of 100%, show a PaO2 of 281, pCO2 of 37, pH of 7.41. Postoperative chest x-ray shows postoperative changes, a chronic right pleural effusion with pulmonary vascular congestion. 2 left-sided chest tubes in place, no sizable pneumothoraces appreciated. Hemodynamics are marginal. He is on milrinone, which is currently infusing at 0.25 mcg/kg/min. Also, requiring norepinephrine for blood pressure support currently infusing at 0.1 mcg/kg/min. Normal saline infusing at 50 MLS per hour. There is no pulmonary artery catheter. CVP reading 12. He has 2 left-sided chest tubes divided anteriorly and posteriorly. Anterior chest tube has a total of 140 mL of serosanguineous output and the left posterior chest tube has a total of 430 mL of serosanguineous output. No significant air leaks. Most recent postoperative CBC: WBC count 8.3, hemoglobin 9.7, hematocrit 30.5, platelets 118. CMP: Sodium 137, potassium 4, chloride 108, serum bicarb 19, BUN 15, creatinine 0.72, glucose 108. He does have an indewelling urinary catheter. Received a dose of Lasix 20 mg earlier. He initially diuressed copiously. Urine output is currently in the order of 50-100 ml/hr. Earlier, patient's PEEP was dropped to 8, follow-up ABG, was satisfactory with a PaO2 of 94, pCO2 of 38, pH of 7.45. Reportedly, weaning trial was attempted earlier, per the rapid exudation protocol. Patient was unable to tolerate pressure support, he was reportedly anxious, tachypneic, and had high minute ventilation. He was transitioned to Precedex, but this did not help. On my follow-up evaluation, patient has had increasing vasopressor requirements. Vasopressin was added by CT surgery, which is infusing at physiological dose. In light of patient's hemodynamic instability and increasing vasopressor requirements. Will hold off on any further weaning attempts at this point. The patient is seen today 05/17/2024 in follow-up in the intensive care unit. He is currently sitting up in a chair awake and alert in no acute distress.O2 saturations in the 90s on room air. Chest x-ray does reveal increasing bilateral pleural effusions right greater than left. Follow-up ultrasound revealed a 6.6 cm pocket. He did undergo a right-sided thoracentesis with 2 L of cloudy yellow fluid removed. He tolerated the procedure well. Follow-up chest x-ray did not reveal evidence of pneumothorax. White count 10.5. Hemoglobin 9.2. Platelets 88,000. Sodium 133. Potassium 4.2. Bicarb 21. BUN 17. Creatinine 0.83. Glucose 118. he remains on bronchodilators. Continued with the incentive sagrario horne. Heparin for DVT prophylaxis. Progress note dated May 18, 2024. 69-year-old male seen today room to 265. The patient is on room air. He is getting saline at 30 cc an hour. The patient is postop day #3. It was a three- vessel bypass grafting. Clinically, the patient looks like he is doing relatively well. He has no specific complaints today. He denies any shortness of breath, cough, wheezing, chest tightness, or phlegm production. Current labs include a white count 9.2, hemoglobin 8.7, hematocrit 26.5, and a platelet count of 90,000. Sodium 129, potassium 4.3, chlorides 102, CO2 23, BUN 21, and creatinine 0.82. The patient had a thoracentesis done on the right side. It ap pears to be 8 transudate. The total protein is less than 3 g. The LDH is less than 200. Chest x-ray shows diffuse bilateral infiltrates, and mild pulmonary vascular congestion. Progress note dated May 19, 2024. 69-year-old male seen in room 265. The patient is doing relatively well. He is on room air. He is not getting any fluids. He is postop day #4. He likely will be discharged before and in the next day or 2. He had an uneventful night according to the nurse. Labs include a white count 7.4, hemoglobin 8.8, hematocrit 27.7, and a platelet count of 115,000. Sodium 131, potassium 3.6, chlorides 102, CO2 22, BUN 26, creatinine 0.82. Glucose is 109. Calcium 8.4, magnesium 2.1. Chest x-ray shows some mild fluid overload. Progress note dated May 20, 2024. 69-year-old male seen today in room 366. The patient is doing relatively well. He is on room air. No IV fluids. He has no specific complaints today. Labs include a white count 6.1, hemoglobin 9, hematocrit 28.6, platelet count normal. Sodium 133, potassium 3.2, chlorides 100, CO2 25, BUN 23, and creatinine 0.9. Glucose 98. Calcium 8.5. Magnesium 2.0. Chest x-ray is consistent with mild fluid overload, but is improved. Progress note dated May 21, 2024. 69-year-old male seen today in room 366. Currently, he is on room air. No IV fluids. The Patient Is Being Evaluated for Possible Inpatient Rehabilitation. Current labs include a white count 5, hemoglobin 8.6, hematocrit 27.8, and a normal platelet count. Sodium 133, potassium 3.7, chlorides 100, CO2 26, BUN 23, creatinine 0.97. Glucose is 93. Calcium is 8.3. Magnesium is 2.0. Chest x-ray shows some very mild pulmonary venous congestion, as well as cardiomegaly. Progress note dated May 22, 2024. The patient is seen today in room 366. He is on room air. He is not receiving any IV fluids. He has no specific complaints. Specifically, he denies any shortness of breath, cough, wheezing, chest tightness, or phlegm production. He also denies any chest pain or pressure. Current labs include white count 5.8, hemoglobin 8.9, hematocrit 28.7, and a normal platelet count. Sodium 134, potassium 3.7, chlorides 98, CO2 27, BUN 21, creatinine 1.02. Glucose is 88. Calcium 8.4, and magnesium is 2. Chest x-ray is essentially unchanged. Progress note dated May 23, 2024. 69-year-old male seen today in room 366. The patient is status post bypass grafting. He had a two-vessel redo bypass. The patient's most recent chest x-ray again shows a right-sided pleural effusion. It was quite large on ultrasound, measuring about 11.5 cm. We did a right-sided thoracentesis today. 1.7 L of dark yellow fluid was removed. The patient tolerated the procedure well. The postprocedure chest x-ray did not reveal pneumothorax. No fluid was not sent for analysis. Current laboratory data includes a white count 5.6, hemoglobin 9.2, hematocrit 30.4, platelet count 249,000. Sodium 134, potassium 3.8, chlorides 100, CO2 24, BUN 20, creatinine 1.01. Glucose is 116. Calcium 8.7, magnesium 1.9. Chest x-ray and ultrasound have been reviewed. Objective - Vital Signs Vital signs: Vital Signs Temp 98.2 F 05/23/24 08:15 Pulse 88 05/23/24 11:26 Resp 18 05/23/24 08:15 BP 114/71 05/23/24 08:15 Pulse Ox 98 05/23/24 08:15 FiO2 30 05/16/24 18:30 Intake & Output 05/22/24 05/23/24 05/23/24 18:59 06:59 18:59 Intake Total 0 480 356 Output Total 400 1350 Balance -400 -870 356 Weight 101 kg Intake: Oral 0 480 356 Output: Urine 400 1350 Other: Voiding Method Urinal Urinal # Bowel Movements 0 ABP, PAP, CO, CI - Last Documented Arterial Blood Pressure 113/45 - Exam No acute distress, oriented 3. Currently, the patient is on room air. Saturation is 98 %. HEENT examination is grossly unremarkable. Mucous membranes are moist. No oral lesions. Neck supple. Full range of motion. No adenopathy thyromegaly or neck vein distention. Cardiovascular examination reveals regular rhythm rate. S1-S2 normal. No S3 or S4. No discernible murmur noted. Heart rate is 88 bpm. Heart sounds are distant. Lungs reveal mild scattered rhonchi. No wheezes. No crackles. Breath sounds equal bilaterally. Saturations are 98 % on room air. Abdomen soft bowel sounds are heard. No masses or tenderness. Extremities are intact. No cyanosis clubbing or edema. Skin is without rash or lesion. Neurologic examination is brief but nonfocal. - Labs CBC & Chem 7: 05/23/24 06:14 05/23/24 06:14 Labs: Abnormal Lab Results - Last 24 Hours (Table) 05/22/24 05/23/24 05/23/24 Range/Units 20:11 06:00 06:14 RBC 3.38 L (4.30-5.90) m/uL Hgb 9.2 L (13.0-17.5) gm/dL Hct 30.4 L (39.0-53.0) % MCHC 30.4 L (31.0-37.0) g/dL RDW 18.2 H (11.5-15.5) % Sodium (137-145) mmol/L POC Glucose (mg/dL) 135 H 117 H (70-110) mg/dL 05/23/24 05/23/24 Range/Units 06:14 11:33 RBC (4.30-5.90) m/uL Hgb (13.0-17.5) gm/dL Hct (39.0-53.0) % MCHC (31.0-37.0) g/dL RDW (11.5-15.5) % Sodium 134 L (137-145) mmol/L POC Glucose (mg/dL) 116 H (70-110) mg/dL Assessment and Plan Assessment: Postoperative day #8 following an off-pump redo, coronary artery bypass grafting x 2 with left thoracotomy approach, including right radial graft to the OM and SVG graft to the LAD. Intraoperatively, patient had significant EBL of 4 L. Has received multiple blood product so far including 3 units PRBCs, 2 FFP, 1 pack platelets, 1 pooled cryoprecipitate, 1.75 L 5% albumin. Also received 3 L crystalloids. Routine postoperative ventilator management. Acute blood loss anemia, expected outcome of surgery, most recent hemoglobin 9.7 g/dL. Routine postoperative mechanical ventilator management, postoperative chest x- ray shows the endotracheal tube in satisfactory position approximately 4.2 cm above the flor, orogastric tube coursing below the diaphragm, right IJ central venous catheter with distal tip at the cavoatrial junction, left thoracotomy tu bes in place without evidence of pneumothoraces. There is a chronic right pleural effusion. Pulmonary vascular congestion. Coronary artery disease, with previous history of CABG over 20 years ago f oll[place] by subsequent PCI/stenting. Ischemic cardiomyopathy, recent echocardiogram 04/25/2024 estimates a severely reduced left ventricular ejection fraction of 20 to 25%, as well as, moderate mitral and tricuspid regurgitation. History of hypertension. History of hyperlipidemia. History of tobacco dependence. Chronic obstructive pulmonary disease, bedside FEV1 was performed which was 43% of predicted or 1.41 L indicating a severe degree of obstruction. History of obstructive sleep apnea. Chronic hypoxemic respiratory failure, utilizes 3 L/min nasal cannula at home. Chronic right-sided pleural effusion, S/P thoracentesis, with 2 L removed. Fluid appears to be a transudate. Repeat thoracentesis on the right side, May 23, 2024, with 1.7 L removed. History of asbestos exposure. Plan: Plan dated May 18 2024. The patient appears to be doing much better. The patient is currently on room air. He is getting saline at 30 cc an hour. Today is postoperative day #3. The patient had a three-vessel bypass surgery. Labs, x-rays, medications are reviewed. The patient had a thoracentesis performed, which revealed 2 L of transudative fluid. The LDH and protein were both in the transudative range. We will continue to follow make recommendations along the way. No additional recommendations at this time. We do encourage deep breathing, coughing, clearing of secretions, and hourly use of the incentive spirometer. Plan dated May 19, 2024. The patient appears to be doing relatively well. He is currently on room air. He is not receiving any IV fluids. He is postop day #4. The patient has no complaints. He denies any shortness of breath, cough, wheezing, chest tightness, or phlegm production. He also denies any chest pain or pressure. Labs, x-rays, medications are reviewed. We will continue to follow and make recommendations along the way. Plan dated May 20, 2024. The patient is seen today in room 366. He is on room air. No IV fluids. Labs, x-rays, medications are all reviewed. Clinically, the patient is doing better. We will continue to follow the patient. No additional recommendations at this time. We encourage deep breathing, coughing, clearing of secretions. We also recommend hourly use of the incentive spirometer. Plan dated May 21, 2024. The patient is seen today in room 366. He is on room air. He is not receiving any IV fluids. His respiratory status is stable. He denies any shortness of breath, cough, wheezing, chest tightness, or phlegm production. Labs, x-rays, medications are reviewed. We will continue to follow the patient. He is currently being evaluated for possible inpatient rehabilitation. Prognosis is guarded. Plan dated May 22, 2024. The patient is doing about the same. He has no specific complaints. He denies any shortness of breath, cough, wheezing, chest tightness, or phlegm production. He also denies any chest pain or pressure. He is on room air. Is not receiving any IV fluids. Labs, x-rays, and medications are all reviewed. Prognosis is guarded. Hopeful discharge soon. We recommend that he continue using the incentive spirometer, as frequently as possible. Plan dated May 23, 2024. The patient is seen in room 366. He is on room air. No IV fluids. The patient had reaccumulation of the effusion on the right side. He had a repeat thoracentesis today. It was done at the bedside. 1.7 L of fluid was removed. There was no immediate complication. The patient tolerated the procedure well without difficulty. The post procedure chest x-ray did not reveal pneumothorax. The fluid was not sent for analysis. Time with Patient: Less than 30
--- NOTE | 2024-05-23 16:09 | P.PN ---
Subjective Progress Note Date: 05/23/24 Patient is evaluated today on the medical floor evaluated today post operative day #5 re-do CABG x 2 vessel. Patient has no chest tubes noted. Patient continues to report significant incisional pain to the left chest surgical incision site. Chest xray today reveals acute left congestive failure although interval improvement noted. Patient received a dose of IV lasix yesterday and has been started on daily IV lasix today. Needs encouragement to be up out of bed for meals. Patients blood work today reveals white blood cell count 6.1, hgb 9.0, sodium 133, potassium 3.2, BUN 23, creatinine 0.90. Blood glucose remains controlled. 05/21/2024 Patient is eval today in the medical floor in follow-up. Patient is postoperative day #6 redo coronary artery bypass grafting with a 2 vessels. Patient has no chest tubes in place he is continued on Tylenol for pain management encouraged using the incentive spirometer 10 times an hour while awake. Patient needs encouragement to be up out of the bed. He is continued on IV Lasix twice a day. Blood work today reveals a sodium level of 133, potassium 3.7 by BUN of 23 creatinine of 0.97. He is 93% on room air today. 05/22/2024 Patient seen and evaluated in follow-up today and per nursing staff has not been getting up much although patient reports he was sitting up in the chair. Patient with poor inspiration and diminished breath sounds with faint crackles noted at the bases is being maintained on IV Lasix daily per CT surgery services. Patient to be evaluated by physical therapy and work with them daily and will likely need ECF on discharge. Patient reports to tolerating diet although reports not much of an appetite. Continue monitoring Accu-Cheks before meals and at bedtime and will titrate medications accordingly. 05/23/2024 Patient is seen in follow-up this morning currently sleeping although arousable with at the bedside. Patient per nursing staff continues to be extremely weak and will likely require ECF on discharge. Case management/social work is following and working with CT surgery regarding discharge planning. Chest x-ray today shows no evidence of pneumothorax with a slight diminution in the right- sided pleural effusion with continued cardiomegaly with pulmonary venous congestion. Patient is status post thoracentesis on the right with approximately 1.7 L today. Repeat echo with an EF of 20 to 25% with severely increased left ventricular systolic volume and severely decreased ejection fraction. No pericardial effusion noted. Patient being increased with Lasix 40 mg daily and will follow-up with repeat labs to replace electrolytes per protocol along with chest x-ray in the a.m. Encouraged incentive spirometer use and getting up out of the bed more often. Review of Systems Constitutional: Denied any fatigue denied any fever. 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 Chest x-ray see younger or older but still obese calm about that little girl criselda t he does use because you should not have taken this admission isolate while I go this that is here somewhat okay why he is like this is 5 days postopshould have gone to surgery because you tell them right now that you want you know gynecology to take over on like I said I wanted my consult but I do not is getting a CT he is getting a chest 4 over CAT scan of her abdomen all those orders for her reactive sed rate although do not think is shortness of breath cough Neurologic denied any new focal deficits, reports feeling weak All inpatient medications were reviewed and appropriate changes in these medications as dictated in the interval history and assessment and plan PHYSICAL EXAMINATION: GENERAL: The patient is alert and oriented x3, not in any acute distress. Well developed, well nourished. Elderly appearing, obese HEENT: Pupils are round and equally reacting to light. EOMI. No scleral icterus. No conjunctival pallor. Normocephalic, atraumatic. No pharyngeal erythema. No thyromegaly. CARDIOVASCULAR: S1 and S2 present. No murmurs, rubs, or gallops. PULMONARY: Diminished breath sounds bilaterally otherwise chest is clear to auscultation, no wheezing or crackles. ABDOMEN: Soft, nontender, nondistended, normoactive bowel sounds. No palpable organomegaly. Patient has left chest wall incision clean dry intact. MUSCULOSKELETAL: No joint swelling or deformity. EXTREMITIES: No cyanosis, clubbing, or pedal edema. NEUROLOGICAL: Gross neurological examination did not reveal any focal deficits. Diffusely weak SKIN: No rashes. Assessment: Coronary artery bypass grafting x 2 with left thoracotomy approach, off pump re- do Postoperative day #5 including right radial graft to the OM and SVG graft to the LAD. Acute blood loss anemia, expected outcome of surgery. Has received multiple blood products. Coronary artery disease, with previous history of CABG over 20 years ago followed by subsequent PCI/stenting. Ischemic cardiomyopathy, recent echocardiogram 04/25/2024 estimates a severely reduced left ventricular ejection fraction of 20 to 25%, moderate mitral and tri cuspid regurgitation. History of hypertension. History of hyperlipidemia. Chronic hypoxemic respiratory failure, utilizes 3 L/min nasal cannula at home. History of COPD, oxygen dependent with no acute exacerbation Histor of obstructive sleep apnea. Chronic right-sided pleural effusion, S/P thoracentesis, with 2 L removed History of asbestos exposure. Obesity with a BMI of 34.2 Smoking history GI prophylaxis DVT prophylaxis Full Code Plan : Patient evaluated today in follow up on the cardiac stepdown unit Needs encouragement to get up out of bed. Patient reports he was up in the chair although needs reencouragement frequently to get up and walk more frequently. Would recommend PT/OT therapy daily Consult to case management for possible ECF on discharge Continue to encourage incentive spirometer 10 x an hour while awake. Patient is receiving IV Lasix daily per CT surgery services and reports some minimal improvement in overall swelling and breathing. Patient showing effusion and is status post thoracentesis with approximately 1.7 L removed on the right with pulmonary today 05/23/2024 We will continue to follow with CT surgery during hospitalization. Thank you kindly for this consultation. The impression and plan of care has been dictated by Avis Prieto, Nurse Practitioner as directed. Dr. Suresh MD I have performed a history and physical examination and medical decision making of this patient, discussed the same with the dictator, and agree with the di ctators assessment and plan as written, documented as a scribe. Based on total visit time, I have performed more than 50% of this visit. Objective - Vital Signs Vital signs: Vital Signs Temp 98.2 F 05/23/24 08:15 Pulse 88 05/23/24 11:26 Resp 18 05/23/24 08:15 BP 114/71 05/23/24 08:15 Pulse Ox 98 05/23/24 08:15 FiO2 30 05/16/24 18:30 Intake & Output 05/22/24 05/23/24 05/23/24 18:59 06:59 18:59 Intake Total 0 480 356 Output Total 400 1350 Balance -400 -870 356 Weight 101 kg Intake: Oral 0 480 356 Output: Urine 400 1350 Other: Voiding Method Urinal Urinal # Bowel Movements 0 ABP, PAP, CO, CI - Last Documented Arterial Blood Pressure 113/45 - Labs CBC & Chem 7: 05/23/24 06:14 05/23/24 06:14 Labs: Abnormal Lab Results - Last 24 Hours (Table) 05/22/24 05/23/24 05/23/24 Range/Units 20:11 06:00 06:14 RBC 3.38 L (4.30-5.90) m/uL Hgb 9.2 L (13.0-17.5) gm/dL Hct 30.4 L (39.0-53.0) % MCHC 30.4 L (31.0-37.0) g/dL RDW 18.2 H (11.5-15.5) % Sodium (137-145) mmol/L POC Glucose (mg/dL) 135 H 117 H (70-110) mg/dL 05/23/24 05/23/24 Range/Units 06:14 11:33 RBC (4.30-5.90) m/uL Hgb (13.0-17.5) gm/dL Hct (39.0-53.0) % MCHC (31.0-37.0) g/dL RDW (11.5-15.5) % Sodium 134 L (137-145) mmol/L POC Glucose (mg/dL) 116 H (70-110) mg/dL Microbiology - Last 24 Hours (Table) 05/17/24 09:45 Acid Fast Bacilli Smear - Preliminary Pleural Fluid
[2024-05-23] MEDS: FUROSEMIDE 10 MG/ML 2 ML VIAL IV ONE (16:18)
[2024-05-23 16:51] LABS: Glucose,Whole Blood 102 mg/dL (70-110)
[2024-05-23 20:12] LABS: Glucose,Whole Blood 103 mg/dL (70-110)
[2024-05-24 05:44] LABS: Glucose,Whole Blood 110 mg/dL (70-110)
[2024-05-24 06:34] LABS: Anisocytosis Slight; HGB 9.4 gm/dL (13.0-17.5); Hypochromasia Marked; MCH 26.9 pg (25.0-35.0); MCHC 30.2 g/dL (31.0-37.0); Mean Platelet Volume 9.6; Platelet Count 265 k/uL (150-450); RBC 3.49 m/uL (4.30-5.90); RDW 18.5 % (11.5-15.5); WBC 5.7 k/uL (3.8-10.6)
[2024-05-24 06:50] LABS: African American GFR (CKD) >90 (>60 ml/min/1.73 sqM); Anion Gap 9 mmol/L; Blood Urea Nitrogen 18 mg/dL (9-20); Calcium 8.3 mg/dL (8.4-10.2); Carbon Dioxide 25 mmol/L (22-30); Chloride 98 mmol/L (98-107); Glucose 98 mg/dL (74-99); Magnesium 1.8 mg/dL (1.6-2.3); Non-African American GFR(CKD) 81 (>60 ml/min/1.73 sqM); Potassium 3.8 mmol/L (3.5-5.1); Sodium 132 mmol/L (137-145)
--- NOTE | 2024-05-24 07:53 | XR ---
EXAMINATION TYPE: XR chest 2V DATE OF EXAM: 05/24/2024 COMPARISON: 05/23/2024 HISTORY: Shortness of breath TECHNIQUE: Frontal and lateral views of the chest are obtained. FINDINGS: Scattered senescent parenchymal changes noted. Hyperinflation compatible with COPD. Worsening pulmonary venous congestion and interstitial edema with scattered areas of infiltrate noted and small effusions. Continued cardiomegaly. Changes of median sternotomy and CABG. Mediastinal structures are stable and grossly unremarkable. No evidence for hilar prominence. Degenerative changes dorsal spine. IMPRESSION: 1. Worsening pulmonary venous congestion and interstitial edema with scattered areas of infiltrate no vianey and small effusions.
[2024-05-24 08:36] VITALS: RESP 18
[2024-05-24] MEDS: DAPAGLIFLOZIN PROPANEDIOL 10 MG TABLET PO SCH (08:48)
[2024-05-24] MEDS: SPIRONOLACTONE 25 MG TAB PO SCH (08:48)
[2024-05-24] MEDS: FUROSEMIDE 10 MG/ML 4 ML VIAL IV SCH (08:48)
--- NOTE | 2024-05-24 10:47 | P.PN ---
Subjective Progress Note Date: 05/24/24 Principal diagnosis: Triple-vessel coronary artery disease, unstable Angina. History of coronary artery disease with previous myocardial infarction and multiple stents as well as thrombectomy on Eliquis for anticoagulation, most recent PCI was to the SVG in 10/2022, as well as coronary artery bypass graft surgery approximately 20 years ago, ischemic cardiomyopathy, chronic systolic heart failure with reduced ejection fraction, hypertension, hyperlipidemia, left internal carotid artery stenosis, chronic kidney disease, chronic anemia, chronic ongoing tobacco use, severe COPD on home oxygen 2 L/min, obstructive sleep apnea, chronic back pain with history of back surgery, and family history of heart disease. POD #9 redo off pump coronary artery bypass grafting x 2 - left thoracotomy approach, endoscopic right radial and right greater saphenous vein harvest, graft flow measurements using the [employer]-Stim flow meter system, cryo-ablation of intercostal nerves 6-9, trans-esophageal echo Intra and postoperative acute blood loss anemia and thrombocytopenia, expected given hemodilution as well as preoperative use of Plavix and Eliquis. Hypotension requiring IV pressor use, expected given blood loss, resolved. The patient was seen and examined in follow-up today May 24, 2024 at his bedside on the third floor cardiac stepdown unit. He is currently laying in bed, is awake, alert, oriented x 3 and is in no acute apparent distress. He reports he has been already up ambulating in the cardiac stepdown unit hallway with standby assistance from nursing staff and has been sitting up to the bedside chair. He denies any complaints of shortness of breath at this time, and is complaining of minimal pain to his left thoracotomy incision site. He reports his current pain medication regimen is controlling his pain well. The patient underwent a right thoracentesis performed by Dr. Nugent yesterday from pulmonary medicine with 1.7 L of pleural fluid drained. The patient has been approved for subacute rehab at [facility], but waiting the patient's final decision on going to [facility]. Oxygen saturations are 93% on room air and he is achieving 1000 mL on his incentive spirometry with encouragement. Remote telemetry is showing normal sinus rhythm heart rate 81 bpm. He remains hemodynamically stable and is currently on no inotropic or pressor support. Chest x-ray and laboratory results were reviewed. Objective - Vital Signs Vital signs: Vital Signs Temp 98.4 F 05/24/24 08:00 Pulse 84 05/24/24 08:49 Resp 18 05/24/24 08:00 BP 104/66 05/24/24 08:00 Pulse Ox 94 L 05/24/24 08:24 FiO2 30 05/16/24 18:30 Intake & Output 05/23/24 05/24/24 05/24/24 18:59 06:59 18:59 Intake Total 356 237 240 Output Total 150 500 Balance 206 -263 240 Weight 96 kg Intake: Oral 356 237 240 Output: Urine 150 500 Other: Voiding Method Urinal Urinal ABP, PAP, CO, CI - Last Documented Arterial Blood Pressure 113/45 - Exam CONSTITUTIONAL: Appears comfortable, cooperative, no apparent acute distress. HEENT: Neck is supple, no JVD, no lymphadenopathy. RESPIRATORY: Lungs sounds essentially clear throughout, diminished to his bilateral bases right greater than left. Respirations are symmetrical and nonlabored. Currently on room air with oxygen saturations 93%. Able to achieve 1000 mL on his incentive spirometry. Strong cough. CARDIOVASCULAR: Regular rhythm and rate. S1 and S2 present, negative for S3, gallop or murmur. Sternum is stable. Palpable peripheral pulses bilaterally. No calf pain or tenderness noted. Knee-high BEN hose and sequential compression devices in place to his bilateral lower extremities. GASTROINTESTINAL: Abdomen soft, nontender, nondistended. Active bowel sounds present 4 quadrants. Tolerating diet. Passing flatus. No guarding or rigidity. GENITOURINARY: Continues to void. INTEGUMENTARY: Skin is warm and dry with no evidence of clubbing or cyanosis. Midline sternal incision clean dry and well approximated, covered with dry intact dressing. Right lower extremity EVH sites well approximated without redness or drainage. Right arm radial artery harvest sites clean, dry and approximated. No drainage or redness is present. NEUROLOGIC: Cranial nerves II through XII intact. No focal deficits. MUSKULOSKELETAL: Able to move all extremities, strength equal bilaterally, generalized weakness. PSYCHIATRIC: Alert and oriented to person place and time, appropriate affect, intact judgment and insight. - Allied health notes Allied health notes reviewed: nursing - Labs CBC & Chem 7: 05/24/24 05:37 05/24/24 05:37 Labs: Abnormal Lab Results - Last 24 Hours (Table) 05/23/24 05/24/24 05/24/24 Range/Units 11:33 05:37 05:37 RBC 3.49 L (4.30-5.90) m/uL Hgb 9.4 L (13.0-17.5) gm/dL Hct 31.0 L (39.0-53.0) % MCHC 30.2 L (31.0-37.0) g/dL RDW 18.5 H (11.5-15.5) % Sodium 132 L (137-145) mmol/L POC Glucose (mg/dL) 116 H (70-110) mg/dL Calcium 8.3 L (8.4-10.2) mg/dL Microbiology - Last 24 Hours (Table) 05/17/24 09:45 Acid Fast Bacilli Smear - Preliminary Pleural Fluid - Imaging and Cardiology Chest x-ray: report reviewed, image reviewed Assessment and Plan Assessment: Triple-vessel coronary artery disease, unstable angina with history of coronary artery disease/previous myocardial infarction/multiple stents/thrombectomy on Eliquis for anticoagulation/CABG 20 years ago, status post two-vessel redo off- pump CABG Right sided chronic effusion, status post thoracentesis by Dr. Nugent with removal of 2L straw colored fluid on May 17, 2024 and 1.7 L of yellow fluid drained on May 23, 2024 Ischemic cardiomyopathy/chronic systolic heart failure with reduced ejection fraction, EF 25-30%, repeat limited echo done yesterday demonstrates EF 20-25% History of hypertension, currently off pressors Hyperlipidemia, treated with Zetia, patient has muscle pain with statins, cholesterol 121, LDL 52, triglycerides 180 Left internal carotid artery stenosis, 50-79% Chronic kidney disease, stage IIIb, baseline creatinine 1.6-1.7 Chronic anemia Chronic ongoing tobacco use Severe COPD on home oxygen 2 L/min, preoperative FEV1 43% of predicted Obstructive sleep apnea Chronic back pain with history of back surgery Family history of heart disease. Intra and postoperative acute blood loss anemia and thrombocytopenia, expected given hemodilution as well as preoperative use of Plavix and Eliquis Medical debility Noncompliance Plan: Continue to maximize medical therapy with low-dose aspirin, Plavix, statin, Zetia. Continue low dose beta-dorinda with hold parameters and increase dose as tolerated. Continue lisinopril 2.5 mg p.o. daily at noon with hold parameters, due to low EF. Continue Aldactone 12.5 mg p.o. daily. Will reinitiate Eliquis at discharge. Increase activity, ambulate as tolerated. PT/OT/cardiac rehab following. Encourage incentive spirometry use 10 times every hour while awake, bronchodilators per pulmonology. Will monitor daily labs and chest x-rays, electrolyte replacement per protocol. No further blood transfusion at this point. Continue IV Lasix 40 mg daily. GI/DVT prophylaxis Insulin management per internal medicine. Patient is not diabetic, preoperative hemoglobin A1c 5.5% Pain control per current medication regimen Continue to monitor and record strict accurate intake and output. Daily weights. Continue home medications of sodium bicarb, Neurontin, iron, vitamin D, Flexeril. Shower daily. Patient will would benefit from subacute rehab at discharge to improve strength and mobility, however patient does not want to go to rehab making him high risk for readmission. More recommendations to follow based on patient's clinical course. Time with Patient: Greater than 30
--- NOTE | 2024-05-24 11:10 | P.PN ---
Subjective HISTORY OF PRESENT ILLNESS: Patient examined this morning. Patient is sitting on the side of the bed. Patient currently denies chest pain or pressure. He reports mild shortness of breath. He remains on IV Lasix. Vital signs are stable. 05/22/2024 Patient examined this morning. Patient is tired and sleepy at the time of examination. He currently denies chest pain or pressure. He reports mild shortness of breath. He continues to have lower extremity Colette. He remains on IV diuretics. 05/23/2024 Patient examined this morning. He is sitting on the side of the bed. Patient currently denies chest pain or pressure. He denies shortness of breath. He is on room air with oxygen saturations greater than 92%. He underwent thoracentesis today with removal of 1.7 L. 05/24/2024 Patient examined this morning at the bedside. Patient currently denies chest pain or pressure. He denies shortness of breath. He is on room air with oxygen saturations greater than 92%. He remains on IV Lasix 40 mg daily. PHYSICAL EXAM: VITAL SIGNS: Reviewed. GENERAL: Well-developed in no acute distress. NECK: Supple. No JVD or thyromegaly LUNGS: Respirations even and unlabored. Lungs diminished with a few crackles noted. HEART: Regular rate and rhythm. S1 and S2 heard. EXTREMITIES: Normal range of motion. No clubbing or cyanosis. Peripheral p ulses intact. Trace bilateral lower extremity edema ASSESSMENT: Status post redo off-pump CABG, x 2 vessels, History of coronary artery disease with previous stenting and CABG Right-sided pleural effusion, status postthoracentesis Ischemic cardiomyopathy Acute on chronic heart failure with reduced EF Hypertension Hyperlipidemia Chronic kidney disease COPD with home oxygen use History of obstructive sleep apnea PLAN: Continue postoperative management per CT surgery Continue IV Lasix per CT surgery Daily weights, accurate intake and output, and monitoring of kidney function Increase activity as tolerated Encourage use of incentive spirometer Further recommendations pending patient course Patient to follow-up postdischarge with Dr. Wiggins Nurse practitioner note has been reviewed by physician. Signing provider agrees with the documented findings, assessment, and plan of care documented by TURN LASTER as a scribe. Objective - Vital Signs Vital signs: Vital Signs Temp 98.4 F 05/24/24 08:00 Pulse 84 05/24/24 08:49 Resp 18 05/24/24 08:00 BP 104/66 05/24/24 08:00 Pulse Ox 94 L 05/24/24 08:24 FiO2 30 05/16/24 18:30 Intake & Output 05/23/24 05/24/24 05/24/24 18:59 06:59 18:59 Intake Total 356 237 240 Output Total 150 500 Balance 206 -263 240 Weight 96 kg Intake: Oral 356 237 240 Output: Urine 150 500 Other: Voiding Method Urinal Urinal ABP, PAP, CO, CI - Last Documented Arterial Blood Pressure 113/45 - Labs CBC & Chem 7: 05/24/24 05:37 05/24/24 05:37 Labs: Abnormal Lab Results - Last 24 Hours (Table) 05/23/24 05/24/24 05/24/24 Range/Units 11:33 05:37 05:37 RBC 3.49 L (4.30-5.90) m/uL Hgb 9.4 L (13.0-17.5) gm/dL Hct 31.0 L (39.0-53.0) % MCHC 30.2 L (31.0-37.0) g/dL RDW 18.5 H (11.5-15.5) % Sodium 132 L (137-145) mmol/L POC Glucose (mg/dL) 116 H (70-110) mg/dL Calcium 8.3 L (8.4-10.2) mg/dL Microbiology - Last 24 Hours (Table) 05/17/24 09:45 Acid Fast Bacilli Smear - Preliminary Pleural Fluid
[2024-05-24 11:49] LABS: Glucose,Whole Blood 114 mg/dL (70-110)
--- NOTE | 2024-05-24 11:59 | P.PN ---
Subjective Progress Note Date: 05/24/24 Principal diagnosis: Coronary artery disease. Patient is a 69-year-old white male brought in yesterday for an elective CABG x 2 redo. Past medical history significant for coronary artery disease status post CABG over 20 years ago in [place] followed by subsequent PCI/stenting, ischemic cardiomyopathy, hyperlipidemia, hypertension, chronic kidney disease, chronic ongoing tobacco dependence, COPD, obstructive sleep apnea, among other things. We were asked to see this patient for preoperative pulmonary clearance back in December,. A bedside FEV1 was performed which was 43% of predicted or 1.41 L indicating a severe degree of obstruction. At that time, we felt the patient to be at high risk for pulmonary complications perioperatively. Yesterday, patient underwent a redo off-pump coronary artery bypass grafting x 2 with a left thoracotomy approach. There was a right radial graft to the OM and a SVG graft to the LAD. Intraoperatively, the patient reportedly did have significant EBL of almost 4 L. He received multiple blood products so far including 3 units PRBCs, 2 FFP, 1 pack platelets, and 1 pooled cryoprecipitate. Also, has recieved 1.75 L of 5% albumin. 3 L crystalloid fluid. Patient was then transported to the intensive care unit in critical condition. He remains intubated to the mechanical ventilator. Current ventilator settings of assist-control, respiratory rate 12, tidal volume 550, FiO2 40%, and PEEP of 10. He is breathing above set rate. Peak pressures 26. No significant airway secretions. Propofol is infusing at 10 mcg/kg/min. ABGs done on the settings but an FiO2 of 100%, show a PaO2 of 281, pCO2 of 37, pH of 7.41. Postoperative chest x-ray shows postoperative changes, a chronic right pleural effusion with pulmonary vascular congestion. 2 left-sided chest tubes in place, no sizable pneumothoraces appreciated. Hemodynamics are marginal. He is on milrinone, which is currently infusing at 0.25 mcg/kg/min. Also, requiring norepinephrine for blood pressure support currently infusing at 0.1 mcg/kg/min. Normal saline infusing at 50 MLS per hour. There is no pulmonary artery catheter. CVP reading 12. He has 2 left-sided chest tubes divided anteriorly and posteriorly. Anterior chest tube has a total of 140 mL of serosanguineous output and the left posterior chest tube has a total of 430 mL of serosanguineous output. No significant air leaks. Most recent postoperative CBC: WBC count 8.3, hemoglobin 9.7, hematocrit 30.5, platelets 118. CMP: Sodium 137, potassium 4, chloride 108, serum bicarb 19, BUN 15, creatinine 0.72, glucose 108. He does have an indewelling urinary catheter. Received a dose of Lasix 20 mg earlier. He initially diuressed copiously. Urine output is currently in the order of 50-100 ml/hr. Earlier, patient's PEEP was dropped to 8, follow-up ABG, was satisfactory with a PaO2 of 94, pCO2 of 38, pH of 7.45. Reportedly, weaning trial was attempted earlier, per the rapid exudation protocol. Patient was unable to tolerate pressure support, he was reportedly anxious, tachypneic, and had high minute ventilation. He was transitioned to Precedex, but this did not help. On my follow-up evaluation, patient has had increasing vasopressor requirements. Vasopressin was added by CT surgery, which is infusing at physiological dose. In light of patient's hemodynamic instability and increasing vasopressor requirements. Will hold off on any further weaning attempts at this point. The patient is seen today 05/17/2024 in follow-up in the intensive care unit. He is currently sitting up in a chair awake and alert in no acute distress.O2 saturations in the 90s on room air. Chest x-ray does reveal increasing bilateral pleural effusions right greater than left. Follow-up ultrasound revealed a 6.6 cm pocket. He did undergo a right-sided thoracentesis with 2 L of cloudy yellow fluid removed. He tolerated the procedure well. Follow-up chest x-ray did not reveal evidence of pneumothorax. White count 10.5. Hemoglobin 9.2. Platelets 88,000. Sodium 133. Potassium 4.2. Bicarb 21. BUN 17. Creatinine 0.83. Glucose 118. he remains on bronchodilators. Continued with the incentive sagrario horne. Heparin for DVT prophylaxis. Progress note dated May 18, 2024. 69-year-old male seen today room to 265. The patient is on room air. He is getting saline at 30 cc an hour. The patient is postop day #3. It was a three- vessel bypass grafting. Clinically, the patient looks like he is doing relatively well. He has no specific complaints today. He denies any shortness of breath, cough, wheezing, chest tightness, or phlegm production. Current labs include a white count 9.2, hemoglobin 8.7, hematocrit 26.5, and a platelet count of 90,000. Sodium 129, potassium 4.3, chlorides 102, CO2 23, BUN 21, and creatinine 0.82. The patient had a thoracentesis done on the right side. It ap pears to be 8 transudate. The total protein is less than 3 g. The LDH is less than 200. Chest x-ray shows diffuse bilateral infiltrates, and mild pulmonary vascular congestion. Progress note dated May 19, 2024. 69-year-old male seen in room 265. The patient is doing relatively well. He is on room air. He is not getting any fluids. He is postop day #4. He likely will be discharged before and in the next day or 2. He had an uneventful night according to the nurse. Labs include a white count 7.4, hemoglobin 8.8, hematocrit 27.7, and a platelet count of 115,000. Sodium 131, potassium 3.6, chlorides 102, CO2 22, BUN 26, creatinine 0.82. Glucose is 109. Calcium 8.4, magnesium 2.1. Chest x-ray shows some mild fluid overload. Progress note dated May 20, 2024. 69-year-old male seen today in room 366. The patient is doing relatively well. He is on room air. No IV fluids. He has no specific complaints today. Labs include a white count 6.1, hemoglobin 9, hematocrit 28.6, platelet count normal. Sodium 133, potassium 3.2, chlorides 100, CO2 25, BUN 23, and creatinine 0.9. Glucose 98. Calcium 8.5. Magnesium 2.0. Chest x-ray is consistent with mild fluid overload, but is improved. Progress note dated May 21, 2024. 69-year-old male seen today in room 366. Currently, he is on room air. No IV fluids. The Patient Is Being Evaluated for Possible Inpatient Rehabilitation. Current labs include a white count 5, hemoglobin 8.6, hematocrit 27.8, and a normal platelet count. Sodium 133, potassium 3.7, chlorides 100, CO2 26, BUN 23, creatinine 0.97. Glucose is 93. Calcium is 8.3. Magnesium is 2.0. Chest x-ray shows some very mild pulmonary venous congestion, as well as cardiomegaly. Progress note dated May 22, 2024. The patient is seen today in room 366. He is on room air. He is not receiving any IV fluids. He has no specific complaints. Specifically, he denies any shortness of breath, cough, wheezing, chest tightness, or phlegm production. He also denies any chest pain or pressure. Current labs include white count 5.8, hemoglobin 8.9, hematocrit 28.7, and a normal platelet count. Sodium 134, potassium 3.7, chlorides 98, CO2 27, BUN 21, creatinine 1.02. Glucose is 88. Calcium 8.4, and magnesium is 2. Chest x-ray is essentially unchanged. Progress note dated May 23, 2024. 69-year-old male seen today in room 366. The patient is status post bypass grafting. He had a two-vessel redo bypass. The patient's most recent chest x-ray again shows a right-sided pleural effusion. It was quite large on ultrasound, measuring about 11.5 cm. We did a right-sided thoracentesis today. 1.7 L of dark yellow fluid was removed. The patient tolerated the procedure well. The postprocedure chest x-ray did not reveal pneumothorax. No fluid was not sent for analysis. Current laboratory data includes a white count 5.6, hemoglobin 9.2, hematocrit 30.4, platelet count 249,000. Sodium 134, potassium 3.8, chlorides 100, CO2 24, BUN 20, creatinine 1.01. Glucose is 116. Calcium 8.7, magnesium 1.9. Chest x-ray and ultrasound have been reviewed. Progress note dated May 24, 2024. 69-year-old male again seen in room 366. The patient is on room air. No IV fluids. Yesterday, he had a second right-sided thoracentesis. 1.7 L of fluid was removed. Clinically, he is feeling better. White count 5.7, hemoglobin 9.4, hematocrit 31, platelet count 265,000. Sodium 132, potassium 3.8, chlorides 98, CO2 25, BUN 18, creatinine 0.97. Glucose is 114. Calcium 8.3. Chest x-ray shows pulmonary venous congestion and interstitial edema. Objective - Vital Signs Vital signs: Vital Signs Temp 98.4 F 05/24/24 08:00 Pulse 84 05/24/24 08:49 Resp 18 05/24/24 08:00 BP 104/66 05/24/24 08:00 Pulse Ox 94 L 05/24/24 08:24 FiO2 30 05/16/24 18:30 Intake & Output 05/23/24 05/24/24 05/24/24 18:59 06:59 18:59 Intake Total 356 237 240 Output Total 150 500 800 Balance 206 -263 -560 Weight 96 kg Intake: Oral 356 237 240 Output: Urine 150 500 800 Other: Voiding Method Urinal Urinal ABP, PAP, CO, CI - Last Documented Arterial Blood Pressure 113/45 - Exam No acute distress, oriented 3. Currently, the patient is on room air. Saturation is 97 %. HEENT examination is grossly unremarkable. Mucous membranes are moist. No oral lesions. Neck supple. Full range of motion. No adenopathy thyromegaly or neck vein distention. Cardiovascular examination reveals regular rhythm rate. S1-S2 normal. No S3 or S4. No discernible murmur noted. Heart rate is 79 bpm. Heart sounds are distant. Lungs reveal mild scattered rhonchi. No wheezes. No crackles. Breath sounds equal bilaterally. Saturations are 97 % on room air. Abdomen soft bowel sounds are heard. No masses or tenderness. Extremities are intact. No cyanosis clubbing or edema. Skin is without rash or lesion. Neurologic examination is brief but nonfocal. - Labs CBC & Chem 7: 05/24/24 05:37 05/24/24 05:37 Labs: Abnormal Lab Results - Last 24 Hours (Table) 05/24/24 05/24/24 05/24/24 Range/Units 05:37 05:37 11:48 RBC 3.49 L (4.30-5.90) m/uL Hgb 9.4 L (13.0-17.5) gm/dL Hct 31.0 L (39.0-53.0) % MCHC 30.2 L (31.0-37.0) g/dL RDW 18.5 H (11.5-15.5) % Sodium 132 L (137-145) mmol/L POC Glucose (mg/dL) 114 H (70-110) mg/dL Calcium 8.3 L (8.4-10.2) mg/dL Microbiology - Last 24 Hours (Table) 05/17/24 09:45 Acid Fast Bacilli Smear - Preliminary Pleural Fluid Assessment and Plan Assessment: Postoperative day #9 following an off-pump redo, coronary artery bypass grafting x 2 with left thoracotomy approach, including right radial graft to the OM and SVG graft to the LAD. Intraoperatively, patient had significant EBL of 4 L. Has received multiple blood product so far including 3 units PRBCs, 2 FFP, 1 pack platelets, 1 pooled cryoprecipitate, 1.75 L 5% albumin. Also received 3 L crystalloids. Routine postoperative ventilator management. Acute blood loss anemia, expected outcome of surgery, most recent hemoglobin 9.7 g/dL. Routine postoperative mechanical ventilator management, postoperative chest x- ray shows the endotracheal tube in satisfactory position approximately 4.2 cm above the flor, orogastric tube coursing below the diaphragm, right IJ central venous catheter with distal tip at the cavoatrial junction, left thoracotomy tubes in place without evidence of pneumothoraces. There is a chronic right pleural effusion. Pulmonary vascular congestion. Coronary artery disease, with previous history of CABG over 20 years ago followed by subsequent PCI/stenting. Ischemic cardiomyopathy, recent echocardiogram 04/25/2024 estimates a severely reduced left ventricular ejection fraction of 20 to 25%, as well as, moderate mitral and tricuspid regurgitation. History of hypertension. History of hyperlipidemia. History of tobacco dependence. Chronic obstructive pulmonary disease, bedside FEV1 was performed which was 43% of predicted or 1.41 L indicating a severe degree of obstruction. History of obstructive sleep apnea. Chronic hypoxemic respiratory failure, utilizes 3 L/min nasal cannula at home. Chronic right-sided pleural effusion, S/P thoracentesis, with 2 L removed. Fluid appears to be a transudate. Repeat thoracentesis on the right side, May 23, 2024, with 1.7 L removed. History of asbestos exposure. Plan: Plan dated May 18 2024. The patient appears to be doing much better. The patient is currently on room air. He is getting saline at 30 cc an hour. Today is postoperative day #3. The patient had a three-vessel bypass surgery. Labs, x-rays, medications are reviewed. The patient had a thoracentesis performed, which revealed 2 L of transudative fluid. The LDH and protein were both in the transudative range. We will continue to follow make recommendations along the way. No additional recommendations at this time. We do encourage deep breathing, coughing, cl earing of secretions, and hourly use of the incentive spirometer. Plan dated May 19, 2024. The patient appears to be doing relatively well. He is currently on room air. He is not receiving any IV fluids. He is postop day #4. The patient has no complaints. He denies any shortness of breath, cough, wheezing, chest tightness, or phlegm production. He also denies any chest pain or pressure. Labs, x-rays, medications are reviewed. We will continue to follow and make recommendations along the way. Plan dated May 20, 2024. The patient is seen today in room 366. He is on room air. No IV fluids. Labs, x-rays, medications are all reviewed. Clinically, the patient is doing better. We will continue to follow the patient. No additional recommendations at this time. We encourage deep breathing, coughing, clearing of secretions. We also recommend hourly use of the incentive spirometer. Plan dated May 21, 2024. The patient is seen today in room 366. He is on room air. He is not receiving any IV fluids. His respiratory status is stable. He denies any shortness of breath, cough, wheezing, chest tightness, or phlegm production. Labs, x-rays, medications are reviewed. We will continue to follow the patient. He is currently being evaluated for possible inpatient rehabilitation. Prognosis is guarded. Plan dated May 22, 2024. The patient is doing about the same. He has no specific complaints. He denies any shortness of breath, cough, wheezing, chest tightness, or phlegm production. He also denies any chest pain or pressure. He is on room air. Is not receiv ing any IV fluids. Labs, x-rays, and medications are all reviewed. Prognosis is guarded. Hopeful discharge soon. We recommend that he continue using the incentive spirometer, as frequently as possible. Plan dated May 23, 2024. The patient is seen in room 366. He is on room air. No IV fluids. The patient had reaccumulation of the effusion on the right side. He had a repeat thoracentesis today. It was done at the bedside. 1.7 L of fluid was removed. There was no immediate complication. The patient tolerated the procedure well without difficulty. The post procedure chest x-ray did not reveal pneumothorax. The fluid was not sent for analysis. Plan dated May 24, 2024. The patient is seen today in room 366. He had a second right-sided thoracentesis yesterday. The first time, 2 L was removed. The second time, 1.7 L was removed. He is currently on room air. Saturations are 97%. Labs, x- rays, and medications are reviewed. Prognosis is guarded. His postprocedure x-ray did not show any evidence of pneumothorax. Time with Patient: Less than 30
--- NOTE | 2024-05-24 15:53 | P.DS ---
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 Consult: post cardiac surgery Do you want consulting provider notified?: Yes Consult Physician Routine Consulting Provider: Alexx Gee Consult Reason/Comments: med mgmt Do you want consulting provider notified?: Yes 05/19/24 08:55 Consult Physician Routine Consulting Provider: Taco Gonzalez Consult Reason/Comments: IPR at discharge Do you want consulting provider notified?: Yes, Notify in am Primary care physician: Alexx Gee [facility] Course: FINAL DIAGNOSIS: Triple-vessel coronary artery disease, unstable angina with history of coronary artery disease/previous myocardial infarction/multiple stents/thrombectomy on Eliquis for anticoagulation/CABG 20 years ago, status post two-vessel redo off- pump CABG Right sided chronic effusion, status post thoracentesis by Dr. Nugent with removal of 2L straw colored fluid on May 17, 2024 and 1.7 L of yellow fluid drained on May 23, 2024 Ischemic cardiomyopathy/chronic systolic heart failure with reduced ejection fraction, EF 25-30%, repeat limited echo done yesterday demonstrates EF 20-25% History of hypertension Hyperlipidemia, treated with Zetia, patient has muscle pain with statins, cholesterol 121, LDL 52, triglycerides 180 Left internal carotid artery stenosis, 50-79% Chronic kidney disease, stage IIIb, baseline creatinine 1.6-1.7 Chronic anemia Chronic ongoing tobacco use Severe COPD on home oxygen 2 L/min, preoperative FEV1 43% of predicted Obstructive sleep apnea Chronic back pain with history of back surgery Family history of heart disease. Intra and postoperative acute blood loss anemia and thrombocytopenia, expected given hemodilution as well as preoperative use of Plavix and Eliquis Medical debility History of noncompliance PRINCIPAL PROCEDURE: 1. Redo off-pump coronary artery bypass grafting x 2, left thoracotomy approach, right radial artery to the obtuse marginal coronary artery, reverse saphenous vein graft to the left anterior descending coronary artery 2. Endoscopic right radial and right greater saphenous vein harvest 3. Graft flow measurements using the Medi-Stim flow meter system 4. Cryoablation of intercostal nerves through IX 5. Intraoperative transesophageal echocardiogram performed by anesthesia HISTORY OF PRESENT ILLNESS: This is a 68-year-old gentleman who follows on outpatient basis for his primary care with Dr. Gee and with Dr. Wiggins for his cardiology care. The patient has a significant history of coronary artery disease with multiple stents as well as a thrombectomy and is on Eliquis for anticoagulation with most recent PCI to his SVG in October 2022. He also has a history of coronary artery bypass grafting surgery approximately 20 years ago. The patient has had multiple hospitalizations with complaints of chest pain associated with shortness of breath and diaphoresis. He does have a history of leaving the hospital AGAINST MEDICAL ADVICE. A recent cardiac catheterization demonstrated a patent saphenous vein graft to the left anterior descending coronary artery with intermediate in-stent stenosis with multiple layers of stents, intermediate to severe disease involving the first obtuse marginal coronary artery and ramus intermedius and a chronically occluded right coronary artery. Due to the findings on the cardiac catheterization a consult was placed to cardiothoracic surgery for further recommendations including redo myocardial revascularization surgery. A transthoracic 2D echocardiogram from October 2023 demonstrated a left ventricular ejection fraction estimated at 30 to 35%, apical akinesis, septal hypokinesis, moderate aortic valve insufficiency, mild tricuspid valve regurgitation, and no pericardial effusion. In March 2024 the patient underwent a transesophageal echocardiogram which showed a tricuspid aortic valve with normal function, no aortic valve stenosis, mild aortic valve regurgitation, mild mitral valve regurgitation, mild to moderate tricuspid valve regurgitation, and a left ventricular ejection fraction estimated at 25 to 30%. Due to the patient's recent symptoms, and findings on his cardiac catheterization a consult was placed to cardiothoracic surgery for further evaluation and treatment recommendations including redo myocardial vascularization surgery. Dr. Pool met with the patient, discussed treatment options including myocardial revascularization surgery, risks and benefits of surgery including the STS risk or were discussed with the patient and knowing and understanding the risks the patient wished to proceed with a redo myocardial vascularization surgery. HOSPITAL COURSE: On May 15, 2024 the patient was admitted to the hospital, and after obtaining consent was taken to the operating room where Dr. Mega Pool performed a a redo off-pump coronary artery bypass grafting x 2 with left thoracotomy approach. Upon completion of the surgery the patient was taken to the cardiovascular intensive care unit where he was recovered and monitored hemodynamically. He was extubated, all lines, and supportive drips were discontinued when appropriate and he was transferred to the third floor cardiac stepdown unit for further monitoring and rehabilitation. His oxygen was titrated down, he continued to work with physical/occupational therapy, cardiac rehabilitation, he was tolerating an oral diet, his pain was well-controlled and he was ready to be discharged [place] for further rehabilitation on postoperative day #9. He has received written and verbal instructions regarding his medications, activity restrictions, signs and symptoms requiring physician notification and his follow-up appointments. Plan - Discharge Summary Discharge Rx Participant: No New Discharge Prescriptions: New Spironolactone [Aldactone] 12.5 mg PO DAILY tab Ipratropium-Albuterol Nebulize [Duoneb 0.5 mg-3 mg/3 ml Soln] 3 ml INHALATION RT-Q2H PRN each PRN Reason: Shortness Of Breath Or Wheezing Dapagliflozin Propanediol [Farxiga] 10 mg PO DAILY tab Atorvastatin [Lipitor] 40 mg PO DAILY tab Magnesium Hydroxide [Milk of Magnesia] 2,400 mg PO BID PRN ml PRN Reason: Constipation HYDROcodone/APAP 10-325MG [[place] 10-325] 1 each PO Q8HR PRN tab PRN Reason: Pain INSULIN ASPART (NovoLOG) [NovoLOG (formulary)] 0 unit SQ ACHS each Formoterol Fumarate [Perforomist] 20 mcg INHALATION RT-BID ml Budesonide [Pulmicort] 1 mg INHALATION RT-BID ml Sennosides-Docusate Sodium [Senokot-S] 2 each PO HS PRN tab PRN Reason: Constipation SILVER sulfADIAZINE CREAM [Silvadene Cream] 1 applic TOPICAL BID each Acetaminophen Tab [Tylenol] 1,000 mg PO Q6HR PRN tab PRN Reason: Fever And/ Or Pain ALPRAZolam [Xanax] 1 mg PO BID PRN tab PRN Reason: Anxiety lisinopriL [Zestril] 2.5 mg PO DAILY@1200 tab Furosemide [Lasix] 40 mg PO DAILY #30 tablet bisacodyL [Dulcolax] 10 mg RECTAL DAILY PRN suppositor PRN Reason: Constipation Ipratropium-Albuterol Nebulize [Duoneb 0.5 mg-3 mg/3 ml Soln] 3 ml INHALATION RT-QID each Metoprolol Tartrate [Lopressor] 12.5 mg PO BID tab Pantoprazole [Protonix] 40 mg PO AC-BRKFST tab ALPRAZolam [Xanax] 2 mg PO HS tab Potassium Chloride ER [K-Dur 10] 10 meq PO DAILY #30 tab Continue Cyclobenzaprine [Flexeril] 10 mg PO TID Clopidogrel [Plavix] 75 mg PO HS Sodium Bicarbonate Tab 650 mg PO TID #100 tab Ferrous Sulfate [Iron (65 MG Elemental)] 650 mg PO Q30D Gabapentin [Neurontin] 100 mg PO TID Ergocalciferol [Vitamin D2 (1250 Mcg = 33656 Iu)] 1,250 mcg PO Q30D Apixaban [Eliquis] 2.5 mg PO BID #60 tab Ezetimibe [Zetia] 10 mg PO DAILY #90 tab Fluticasone Nasal Killdeer [Flonase Nasal Killdeer] 1 spray EA NOSTRIL BID PRN PRN Reason: Allergy Symptoms Discontinued HYDROcodone/APAP 10-325MG [[place] 10-325] 1 tab PO TID ALPRAZolam [Xanax] 2 mg PO TID PRN PRN Reason: Anxiety Albuterol Inhaler [Ventolin Hfa Inhaler] 1 - 2 puff INHALATION RT-Q6H PRN PRN Reason: Shortness Of Breath Nitroglycerin Sl Tabs [Nitrostat] 0.4 mg SL Q5M PRN PRN Reason: Chest Pain Furosemide [Lasix] 40 mg PO DAILY #100 tab Metoprolol Succinate (ER) [Toprol XL] 50 mg PO DAILY #30 tab Omeprazole [PriLOSEC] 20 mg PO AC-BID lisinopriL [Zestril] 2.5 mg PO DAILY Dapagliflozin Propanediol [Farxiga] 5 mg PO DAILY #30 tab Discharge Medication List Apixaban [Eliquis] 2.5 mg PO BID #60 tab 11/18/22 [Rx] Ezetimibe [Zetia] 10 mg PO DAILY #90 tab 11/18/22 [Rx] Fluticasone Nasal Killdeer [Flonase Nasal Killdeer] 1 spray EA NOSTRIL BID PRN 01/27/23 [History] Clopidogrel [Plavix] 75 mg PO HS 08/21/23 [History] Cyclobenzaprine [Flexeril] 10 mg PO TID 08/21/23 [History] Sodium Bicarbonate Tab 650 mg PO TID #100 tab 01/25/24 [Rx] Ergocalciferol [Vitamin D2 (1250 Mcg = 30585 Iu)] 1,250 mcg PO Q30D 05/10/24 [History] Ferrous Sulfate [Iron (65 MG Elemental)] 650 mg PO Q30D 05/10/24 [History] Gabapentin [Neurontin] 100 mg PO TID 05/10/24 [History] ALPRAZolam [Xanax] 1 mg PO BID PRN tab 05/24/24 [Rx] ALPRAZolam [Xanax] 2 mg PO HS tab 05/24/24 [Rx] Acetaminophen Tab [Tylenol] 1,000 mg PO Q6HR PRN tab 05/24/24 [Rx] Atorvastatin [Lipitor] 40 mg PO DAILY tab 05/24/24 [Rx] Budesonide [Pulmicort] 1 mg INHALATION RT-BID ml 05/24/24 [Rx] Dapagliflozin Propanediol [Farxiga] 10 mg PO DAILY tab 05/24/24 [Rx] Formoterol Fumarate [Perforomist] 20 mcg INHALATION RT-BID ml 05/24/24 [Rx] Furosemide [Lasix] 40 mg PO DAILY #30 tablet 05/24/24 [Rx] HYDROcodone/APAP 10-325MG [[place] 10-325] 1 each PO Q8HR PRN tab 05/24/24 [Rx] INSULIN ASPART (NovoLOG) [NovoLOG (formulary)] 0 unit SQ ACHS each 05/24/24 [Rx] Ipratropium-Albuterol Nebulize [Duoneb 0.5 mg-3 mg/3 ml Soln] 3 ml INHALATION RT-Q2H PRN each 05/24/24 [Rx] Ipratropium-Albuterol Nebulize [Duoneb 0.5 mg-3 mg/3 ml Soln] 3 ml INHALATION RT-QID each 05/24/24 [Rx] Magnesium Hydroxide [Milk of Magnesia] 2,400 mg PO BID PRN ml 05/24/24 [Rx] Metoprolol Tartrate [Lopressor] 12.5 mg PO BID tab 05/24/24 [Rx] Pantoprazole [Protonix] 40 mg PO AC-BRKFST tab 05/24/24 [Rx] Potassium Chloride ER [K-Dur 10] 10 meq PO DAILY #30 tab 05/24/24 [Rx] SILVER sulfADIAZINE CREAM [Silvadene Cream] 1 applic TOPICAL BID each 05/24/24 [Rx] Sennosides-Docusate Sodium [Senokot-S] 2 each PO HS PRN tab 05/24/24 [Rx] Spironolactone [Aldactone] 12.5 mg PO DAILY tab 05/24/24 [Rx] bisacodyL [Dulcolax] 10 mg RECTAL DAILY PRN suppositor 05/24/24 [Rx] lisinopriL [Zestril] 2.5 mg PO DAILY@1200 tab 05/24/24 [Rx] Follow up Appointment(s)/Referral(s): Alexx Gee MD [Primary Care Provider] - 1 Week (Once [facility] from [facility] - 4 Weeks (You will receive a phone call in approximately 4-6 weeks for evaluation for cardiac rehab) Frank Wiggins MD [STAFF PHYSICIAN] - 05/29/24 3:15 pm [facility] [NON-STAFF] - 1 Week Chaim Nugent DO [Doctor of Osteopathic Medicine] - 06/19/24 10:30 am [facility] [NON-STAFF] - 1 Week ([facility] will call you to arrange a visit) Mega Pool MD [STAFF PHYSICIAN] - 3 Weeks (Once patient is discharged from [facility].) Ambulatory/Diagnostic Orders: Complete Blood Count w/diff [LAB.AMB] Time Frame: 05/27/24, Facility: [facility], Location: Laboratory [facility] Comprehensive Metabolic Panel [LAB.AMB] Time Frame: 05/27/24, Facility: [facility], Location: Laboratory [facility] Activity/Diet/Wound Care/Special Instructions: DISCHARGE INSTRUCTIONS: 1. No driving for 4 weeks, or until physician gives their ok. 2. The patient should sleep in their own bed, no medical bed needed. 3. Stairs are not an issue. If the bedroom is upstairs, it is advised that the patient go up at night and down in the morning for the first week. Go slowly, using handrail and take 1 step at a time. 4. BEN hose are to be worn for 30 days post surgery or until physician discontinues. 5. Heart hugger is to be worn 100% of the time until physician discontinues.(except when showering) 6. No lifting, pushing, or pulling more than 10 pounds for 12 weeks. The physician will advise of any restriction changes. 7. The patient is expected to continue the prescribed walking program. 8. Continue pain control per as needed orders. 9. Continue with incentive spirometry and splinting/heart hugger until otherwise directed by the physician. 10. Must shower daily using liquid antibacterial soap 11. Routine sternal incision care. No powders, lotions, ointments on incisions. No dressings are necessary on incisions unless they are draining. Dermabond tape is to remain on sternal incision until surgeon follow-up. 12. Please call surgeon/SR. MANAGER for temp greater than 101 F or purulent drainage from incisions. 13. You should weigh yourself daily, record and bring log with you to follow up appointments. 14. All prescriptions given by surgeon for 30 days. Refills need to be filled through employee relations assistant/primary care physician. 15. A Red armband has been placed on the patient. It should be worn for 30 days post discharge from surgery and will be removed by the cardiac surgeons. If an ER visit is necessary, please make sure the number on the Red armband is called before going to ER. 16. You have been referred to and are expected to begin Cardiac Rehab in approximately 4-6 weeks. 17. Quitting smoking is the most important step you can take to improve your health. For additional information and assistance to quit smoking, please call the [place] tobacco quit line (4-059-GDTO-NOW/ ) or online: https://www.[place].gov/[email or web address]/oixg-ve-sdculcx/[email or web address]/tobacco/how-to-qu it-tobacco HOME HEALTH SERVICES TO PROVIDE: RN SKILLED HOME CARE SERVICES FOR POST-OP SURGICAL PATIENTS WITH THE FOLLOWING: Coronary Artery Bypass Surgery (CABG), Mitral Valve Replacement/Repair ( MVR), Aortic Valve Replacement/Repair (AVR) RN TO CONTINUE EDUCATION FROM ``ROAD TO A HEALTH HEART PATIENT EDUCATION MANUAL (GIVEN TO PATIENT IN THE HOSPITAL) MEDICATION RECONCILIATION WITH EDUCATION NEEDED ON FIRST HOME VISIT EMPHASIZE IMPORTANCE OF WEARING BREAST SUPPORT/HEART HUGGER ENCOURAGE USE OF INCENTIVE SPIROMETER 10 X EVERY HOUR WHILE AWAKE ENCOURAGE UTILIZATION OF LOWER EXTREMITY COMPRESSION STOCKINGS/BEN HOSE and ELEVATE LEGS ABOVE LEVEL OF HEART WHILE AT REST. ENCOURAGE AMBULATION 3-5x/day INCREASING TOLERATES, WHILE AVOIDING EXTREMES IN TEMPERATURE FREQUENCY: RN TO OPEN THE PATIENT WITHIN 24 HOURS OF DISCHARGE FROM THE HOSPITAL WITH TELEHEALTH INSTALLED AT [facility] [place], RN TO VISIT 2-3 X A WEEK FOR 4 WEEKS ESTABLISHED BY PATIENT NEEDS. LABORATORY: CBC, CMP TO BE DRAWN ON THE THIRD DAY HOME, (RAN STAT) FAX RESULTS TO [phone]. TELEHEALTH PARAMETERS: WEIGHT: NOTIFY MD OF WEIGHT GAIN OF 2 LBS IN 24 HOURS OR 5 LBS IN ONE WEEK HR: NOTIFY MD OF HR <55 BPM OR HR>100 BPM BP: NOTIFY MD IF BP <90/55 OR BP>140/100 O2 SAT: NOTIFY MD IF PO2<93% ON ROOM AIR SEND TELEHEALTH REPORT TO BLAST FURNACE TENDER AND CARDIOVASCULAR SURGEON THE FIRST WEEK OF CARE AND THEN BI-WEEKLY. PLEASE ADDITIONALLY COMMUNICATE ANY ABNORMALS AND NEW FINDINGS TO THE SURGEONS OFFICE. Discharge Disposition: TRANSFER TO SNF/ECF
[2024-05-24 17:30] VITALS: BP 111/63; PULSE 88; TEMP 98.2
[2024-05-24] MEDS ORDERED: APIXABAN 2.5 MG TABLET PO SCH (21:00)
--- NOTE | 2024-05-25 07:51 | P.PN ---
Subjective Progress Note Date: 05/24/24 Patient is evaluated today on the medical floor evaluated today post operative day #5 re-do CABG x 2 vessel. Patient has no chest tubes noted. Patient continues to report significant incisional pain to the left chest surgical incision site. Chest xray today reveals acute left congestive failure although interval improvement noted. Patient received a dose of IV lasix yesterday and has been started on daily IV lasix today. Needs encouragement to be up out of bed for meals. Patients blood work today reveals white blood cell count 6.1, hgb 9.0, sodium 133, potassium 3.2, BUN 23, creatinine 0.90. Blood glucose remains controlled. 05/21/2024 Patient is eval today in the medical floor in follow-up. Patient is postoperative day #6 redo coronary artery bypass grafting with a 2 vessels. Patient has no chest tubes in place he is continued on Tylenol for pain management encouraged using the incentive spirometer 10 times an hour while awake. Patient needs encouragement to be up out of the bed. He is continued on IV Lasix twice a day. Blood work today reveals a sodium level of 133, potassium 3.7 by BUN of 23 creatinine of 0.97. He is 93% on room air today. 05/22/2024 Patient seen and evaluated in follow-up today and per nursing staff has not been getting up much although patient reports he was sitting up in the chair. Patient with poor inspiration and diminished breath sounds with faint crackles noted at the bases is being maintained on IV Lasix daily per CT surgery services. Patient to be evaluated by physical therapy and work with them daily and will likely need ECF on discharge. Patient reports to tolerating diet although reports not much of an appetite. Continue monitoring Accu-Cheks before meals and at bedtime and will titrate medications accordingly. 05/23/2024 Patient is seen in follow-up this morning currently sleeping although arousable with at the bedside. Patient per nursing staff continues to be extremely weak and will likely require ECF on discharge. Case management/social work is following and working with CT surgery regarding discharge planning. Chest x-ray today shows no evidence of pneumothorax with a slight diminution in the right- sided pleural effusion with continued cardiomegaly with pulmonary venous congestion. Patient is status post thoracentesis on the right with approximately 1.7 L today. Repeat echo with an EF of 20 to 25% with severely increased left ventricular systolic volume and severely decreased ejection fraction. No pericardial effusion noted. Patient being increased with Lasix 40 mg daily and will follow-up with repeat labs to replace electrolytes per protocol along with chest x-ray in the a.m. Encouraged incentive spirometer use and getting up out of the bed more often. 05/24/2024 Patient seen in follow-up this morning reports to doing relatively well and has been up and walking with a walker and standby assistance in all x 2 today. Patient is planning on going to [facility] today. Patient is medically stable once cleared by cardiothoracic surgery. Patient is afebrile with no reports of chest pain or shortness of breath. Patient has been tolerating diet with no reported nausea or vomiting. Review of Systems Constitutional: Denied any fatigue denied any fever. Cardio vascular: denied any chest pain, palpitations Gastrointestinal: denied any nausea, vomiting, diarrhea Pulmonary: Denied any worsening shortness of breath Neurologic denied any new focal deficits, reports feeling weak All inpatient medications were reviewed and appropriate changes in these medications as dictated in the interval history and assessment and plan PHYSICAL EXAMINATION: GENERAL: The patient is alert and oriented x3, not in any acute distress. Well developed, well nourished. Elderly appearing, obese HEENT: Pupils are round and equally reacting to light. EOMI. No scleral icterus. No conjunctival pallor. Normocephalic, atraumatic. No pharyngeal erythema. No thyromegaly. CARDIOVASCULAR: S1 and S2 present. No murmurs, rubs, or gallops. PULMONARY: Diminished breath sounds bilaterally otherwise chest is clear to auscultation, no wheezing or crackles. ABDOMEN: Soft, nontender, nondistended, normoactive bowel sounds. No palpable organomegaly. Patient has left chest wall incision clean dry intact. MUSCULOSKELETAL: No joint swelling or deformity. EXTREMITIES: No cyanosis, clubbing, or pedal edema. NEUROLOGICAL: Gross neurological examination did not reveal any focal deficits. Diffusely weak SKIN: No rashes. Assessment: Coronary artery bypass grafting x 2 with left thoracotomy approach, off pump re- do Postoperative day #5 including right radial graft to the OM and SVG graft to the LAD. Acute blood loss anemia, expected outcome of surgery. Has received multiple blood products. Coronary artery disease, with previous history of CABG over 20 years ago followed by subsequent PCI/stenting. Ischemic cardiomyopathy, recent echocardiogram 04/25/2024 estimates a severely reduced left ventricular ejection fraction of 20 to 25%, moderate mitral and tricuspid regurgitation. History of hypertension. History of hyperlipidemia. Chronic hypoxemic respiratory failure, utilizes 3 L/min nasal cannula at home. History of COPD, oxygen dependent with no acute exacerbation Histor of obstructive sleep apnea. Chronic right-sided pleural effusion, S/P thoracentesis, with 2 L removed History of asbestos exposure. Obesity with a BMI of 34.2 Smoking history GI prophylaxis DVT prophylaxis Full Code Plan : Patient evaluated today in follow up on the cardiac stepdown unit Per nursing staff patient has been up and walking the halls x 2 today and plans on going to ECF. Plan is for [facility] Patient and family are agreeable and will be transporting to ECF. Recommend outpatient follow-up with primary care provider and close outpatient follow-up with cardiothoracic surgery Continue to encourage incentive spirometer 10 x an hour while awake. We will continue to follow with CT surgery during hospitalization. Thank you kindly for this consultation. Plan is for discharge to [facility] today. Overall prognosis is guarded. High risk for readmissions. The impression and plan of care has been dictated by Avis Prieto, Nurse Practitioner as directed. Dr. Suresh MD I have performed a history and physical examination and medical decision making of this patient, discussed the same with the dictator, and agree with the dictators assessment and plan as written, documented as a scribe. Based on total visit time, I have performed more than 50% of this visit. Objective - Vital Signs Vital signs: Vital Signs Temp 98.2 F 05/24/24 15:50 Pulse 88 05/24/24 15:50 Resp 18 05/24/24 15:50 BP 111/63 05/24/24 15:50 Pulse Ox 95 05/24/24 15:50 FiO2 30 05/16/24 18:30 Intake & Output 05/24/24 05/25/24 05/25/24 18:59 06:59 18:59 Intake Total 240 Output Total 800 Balance -560 Intake: Oral 240 Output: Urine 800 Other: Voiding Method Toilet Urinal ABP, PAP, CO, CI - Last Documented Arterial Blood Pressure 113/45 - Labs CBC & Chem 7: 05/24/24 05:37 05/24/24 05:37 Labs: Abnormal Lab Results - Last 24 Hours (Table) 05/24/24 Range/Units 11:48 POC Glucose (mg/dL) 114 H (70-110) mg/dL
[2024-06-14] MEDS ORDERED: ERGOCALCIFEROL 1,250 MCG (50,000 IU) CAPSULE PO SCH (09:00)
== END 2024-05-24 17:22 | DRG 235 ==
LOC: 2ORMAIN 06:27 → 2SICU 16:16 → 3SCARD 05-19 18:20
PROVIDERS: ADMIT Thoracic Surgery (Cardiothoracic Vascular Surgery); ATTEND Thoracic Surgery (Cardiothoracic Vascular Surgery)
PROC: 05B Upper Veins, Excision (ICD-10-PCS; 2024-05-15)
PROC: 01580ZZ Destruction of Thoracic Nerve, Open Approach (ICD-10-PCS; 2024-05-15)
PROC: B24BZZ4 Ultrasonography of Heart with Aorta, Transesophageal (ICD-10-PCS; 2024-05-15)
PROC: 4A0305C Measurement of Arterial Flow, Coronary, Open Approach (ICD-10-PCS; 2024-05-15)
PROC: 30233K1 Transfusion of Nonautologous Frozen Plasma into Peripheral Vein, Percutaneous Approach (ICD-10-PCS; 2024-05-15)
PROC: 30233J1 Transfusion of Nonautologous Serum Albumin into Peripheral Vein, Percutaneous Approach (ICD-10-PCS; 2024-05-15)
PROC: 30233N1 Transfusion of Nonautologous Red Blood Cells into Peripheral Vein, Percutaneous Approach (ICD-10-PCS; 2024-05-15)
PROC: 30233R1 Transfusion of Nonautologous Platelets into Peripheral Vein, Percutaneous Approach (ICD-10-PCS; 2024-05-15)
PROC: 30233M1 Transfusion of Nonautologous Plasma Cryoprecipitate into Peripheral Vein, Percutaneous Approach (ICD-10-PCS; 2024-05-15)
PROC: 3E033XZ Introduction of Vasopressor into Peripheral Vein, Percutaneous Approach (ICD-10-PCS; 2024-05-15)
PROC: 02100AW Bypass Coronary Artery, One Artery from Aorta with Autologous Arterial Tissue, Open Approach (ICD-10-PCS; principal; 2024-05-15 09:00)
PROC: 021009W Bypass Coronary Artery, One Artery from Aorta with Autologous Venous Tissue, Open Approach (ICD-10-PCS; 2024-05-15 09:00)
PROC: 06BP4ZZ Excision of Right Saphenous Vein, Percutaneous Endoscopic Approach (ICD-10-PCS; 2024-05-15 09:00)
PROC: 6A550Z2 Pheresis of Platelets, Single (ICD-10-PCS; 2024-05-16)
DX: T82.855A Stenosis of coronary artery stent, initial encounter (principal); I21.4 Non-ST elevation (NSTEMI) myocardial infarction; I50.23 Acute on chronic systolic (congestive) heart failure; I13.0 Hypertensive heart and chronic kidney disease with heart failure and stage 1 through stage 4 chronic kidney disease, or unspecified chronic kidney disease; J96.11 Chronic respiratory failure with hypoxia; I25.700 Atherosclerosis of coronary artery bypass graft(s), unspecified, with unstable angina pectoris; J44.9 Chronic obstructive pulmonary disease, unspecified; F14.11 Cocaine abuse, in remission; N18.32 Chronic kidney disease, stage 3b; J91.8 Pleural effusion in other conditions classified elsewhere; D62 Acute posthemorrhagic anemia; D63.1 Anemia in chronic kidney disease; Z68.34 Body mass index [BMI] 34.0-34.9, adult; I95.89 Other hypotension; D69.59 Other secondary thrombocytopenia; Z99.81 Dependence on supplemental oxygen; I65.22 Occlusion and stenosis of left carotid artery; I08.3 Combined rheumatic disorders of mitral, aortic and tricuspid valves; E66.9 Obesity, unspecified; Z91.199 Patient's noncompliance with other medical treatment and regimen due to unspecified reason; G89.29 Other chronic pain; R53.81 Other malaise; G47.33 Obstructive sleep apnea (adult) (pediatric); E78.5 Hyperlipidemia, unspecified; F17.210 Nicotine dependence, cigarettes, uncomplicated; I25.5 Ischemic cardiomyopathy; Z77.090 Contact with and (suspected) exposure to asbestos; Y83.1 Surgical operation with implant of artificial internal device as the cause of abnormal reaction of the patient, or of later complication, without mention of misadventure at the time of the procedure; I25.2 Old myocardial infarction; Z98.1 Arthrodesis status; Z82.49 Family history of ischemic heart disease and other diseases of the circulatory system; Z79.01 Long term (current) use of anticoagulants; Z79.899 Other long term (current) drug therapy; Z79.84 Long term (current) use of oral hypoglycemic drugs; Z79.02 Long term (current) use of antithrombotics/antiplatelets; Z91.040 Latex allergy status; Z86.79 Personal history of other diseases of the circulatory system; Z88.8 Allergy status to other drugs, medicaments and biological substances
CPT/HCPCS: 36430; 71045; 71046; 76604; 80048; 80053; 82330; 82803; 82805; 82945; 83605; 83615; 83735; 84132; 84157; 85025; 85027; 85384; 85610; 85730; 86850; 86900; 86901; 86920; 87070; 87102; 87116; 87205; 87206; 88108; 88305; 89050; 93308; 94002; 94003; 94640; 94660; 94760

== ENCOUNTER 2024-06-13 16:38 | Emergency (ER) | payer MEDICARE, OTHER ==
[2024-06-13] MEDS ORDERED: NITROGLYCERIN SL TABS 0.4 MG TAB SUBLINGUAL ONE (17:53)
[2024-06-13] MEDS ORDERED: ONDANSETRON 4 MG/2 ML VIAL ONE (17:53)
[2024-06-13] MEDS ORDERED: ASPIRIN 81 MG ONE (17:53)
[2024-06-13] MEDS ORDERED: MORPHINE SULFATE 4 MG/ML SYRINGE ONE (17:54)
--- NOTE | 2024-07-31 15:23 | CT ---
EXAMINATION TYPE: CT angio thoracic/abd aorta DATE OF EXAM: 06/13/2024 INDICATION: Chest pain COMPARISON: No comparison available on downtime PACS. CT DLP: 1765 mGycm CONTRAST: 100 mL Isovue-370 TECHNIQUE: Axial images at 5 mm thick sections. Reconstructed images in the coronal plane. Delayed images through the kidneys. FINDINGS: There is a four-vessel arch a normal variant. The ascending thoracic aorta measures 4.0 cm which is borderline enlarged. The aortic arch tapers normally. The ascending thoracic aorta tapers no rmally. The celiac axis may have some narrowing at its origin. Calcified plaques are present. Superior mesent meng artery takeoff appears normal. There is calcification of the bilateral renal artery origins. Acc essory right renal superior artery may be present. Aortic bifurcation is normal. No dissection or ane urysm of the abdominal aorta is evident. Internal and external iliac vessels are patent. Common femor al arteries are patent. Profunda femoris and proximal superficial femoral arteries are patent. CT CHEST: Portion of the thyroid visualized is normal. Small right and minimal left pleural effusions are present. Compressive atelectasis at the right lung base is present. Scattered small lymph nodes are within the superior mediastinum.There is an enlarged 1.4 cm lymph nod e in the pretracheal space. The ascending aorta diameter at the level of the main pulmonary artery is 4.0 cm. The main pulmonary artery diameter at the bifurcation is 2.0 cm. Coronary artery calcification is present. CT ABDOMEN: Liver: Normal Spleen: Normal Pancreas: Normal Adrenal glands: The adrenal glands are normal. Gallbladder: Absent Kidneys: No masses are evident. No hydronephrosis is present. No cysts are present. No renal stone s are evident. Aorta: Vascular calcification is within the aorta. Inferior vena cava: Normal. CT PELVIS: Artifact from lumbar fixation is evident. Loops of bowel within the abdomen and pelvis are normal. Diverticulosis without acute diverticulitis is present This study is without oral contrast limiting bowel evaluation. Appendix: Normal as visualized. Urinary bladder: Normal. Genitourinary structures: Prostate is normal. Osseous structures: No suspicious lytic or sclerotic lesions. There is a 1.0 cm right inguinal lymph node IMPRESSION: 1. Small to moderate right and minimal left pleural effusions. Compressive atelectasis adjacent to th e right pleural effusion. 2. Diverticulosis without acute diverticulitis. 3. Borderline aneurysmal dilatation of the ascending thoracic aorta at 4.0 cm. No dissection or addit ional aneurysmal dilatation of the aorta is evident in the thoracic or abdominal aorta. 4. 1.0 cm prominent right inguinal lymph node. An enlarged 1.4 cm pretracheal lymph node is also pres ent.
== END 2024-06-13 21:13 | disposition left against medical advice (07) ==
LOC: EC 16:38
CPT/HCPCS: 71275; 74174; 93005; 96374; 96375; 99285

== ENCOUNTER 2024-06-27 17:41 | Inpatient (IN) | payer MEDICARE, OTHER ==
[2024-06-27 18:12] VITALS: TEMP 97.9
[2024-06-27] MEDS ORDERED: HEPARIN SODIUM 1,000 UN/ML (10ML VL) IV PRN (18:29)
[2024-06-27] MEDS ORDERED: HYDROmorphone 1 MG/ML 1 ML SYRINGE IVP PRN (19:03)
[2024-06-27] MEDS ORDERED: HYDROmorphone 1 MG/ML 1 ML SYRINGE IVP STA (19:03)
[2024-06-27] MEDS ORDERED: NALOXONE 0.4 MG/ML 1 ML VIAL IV PRN (19:22)
[2024-06-27] MEDS ORDERED: ONDANSETRON 4 MG/2 ML VIAL IVP PRN (19:22)
--- NOTE | 2024-06-27 19:25 | ED ---
Recheck HPI - General Chief Complaint: Shortness of Breath Stated Complaint: PE Time Seen by Provider: 06/27/24 17:43 Source: patient, EMS, RN notes reviewed, old records reviewed Mode of arrival: EMS Limitations: no limitations - History of Present Illness Initial Comments: This is a 69-year-old male to the ER for evaluation patient will present as a t ransfer patient from pulmonary embolism continue on anticoagulation and admit for further evaluation and management MD Complaint: other (Known diagnosis of PE) -: days(s) Returns Today for: persistent/worsening pain related to initial visit Symptoms Since Prior Visit: no new symptoms Context: planned re-check, called for abnormal lab result Associated Symptoms: none Treatments Prior to Arrival: other - Related Data Home Medications Medication Instructions Recorded Confirmed Fluticasone Nasal [place] [Flonase 1 spray EA NOSTRIL BID PRN 01/27/23 05/15/24 Nasal [place]] Clopidogrel [Plavix] 75 mg PO HS 08/21/23 05/15/24 Cyclobenzaprine [Flexeril] 10 mg PO TID 08/21/23 05/15/24 Ergocalciferol [Vitamin D2 (1250 1,250 mcg PO Q30D 05/10/24 05/15/24 Mcg = 46363 Iu)] Ferrous Sulfate [Iron (65 MG 650 mg PO Q30D 05/10/24 05/15/24 Elemental)] Gabapentin [Neurontin] 100 mg PO TID 05/10/24 05/15/24 Previous Rx's Medication Instructions Recorded Apixaban [Eliquis] 2.5 mg PO BID #60 tab 11/18/22 Ezetimibe [Zetia] 10 mg PO DAILY #90 tab 11/18/22 Sodium Bicarbonate Tab 650 mg PO TID #100 tab 01/25/24 ALPRAZolam [Xanax] 1 mg PO BID PRN tab 05/24/24 ALPRAZolam [Xanax] 2 mg PO HS tab 05/24/24 Acetaminophen Tab [Tylenol] 1,000 mg PO Q6HR PRN tab 05/24/24 Atorvastatin [Lipitor] 40 mg PO DAILY tab 05/24/24 Budesonide [Pulmicort] 1 mg INHALATION RT-BID ml 05/24/24 Dapagliflozin Propanediol [Farxiga] 10 mg PO DAILY tab 05/24/24 Formoterol Fumarate [Perforomist] 20 mcg INHALATION RT-BID ml 05/24/24 Furosemide [Lasix] 40 mg PO DAILY #30 tablet 05/24/24 HYDROcodone/APAP 10-325MG [[place] 1 each PO Q8HR PRN tab 05/24/24 10-325] INSULIN ASPART (NovoLOG) [NovoLOG 0 unit SQ ACHS each 05/24/24 (formulary)] Ipratropium-Albuterol Nebulize 3 ml INHALATION RT-Q2H PRN each 05/24/24 [Duoneb 0.5 mg-3 mg/3 ml Soln] Ipratropium-Albuterol Nebulize 3 ml INHALATION RT-QID each 05/24/24 [Duoneb 0.5 mg-3 mg/3 ml Soln] Magnesium Hydroxide [Milk of 2,400 mg PO BID PRN ml 05/24/24 Magnesia] Metoprolol Tartrate [Lopressor] 12.5 mg PO BID tab 05/24/24 Pantoprazole [Protonix] 40 mg PO AC-BRKFST tab 05/24/24 Potassium Chloride ER [K-Dur 10] 10 meq PO DAILY #30 tab 05/24/24 SILVER sulfADIAZINE CREAM 1 applic TOPICAL BID each 05/24/24 [Silvadene Cream] Sennosides-Docusate Sodium 2 each PO HS PRN tab 05/24/24 [Senokot-S] Spironolactone [Aldactone] 12.5 mg PO DAILY tab 05/24/24 bisacodyL [Dulcolax] 10 mg RECTAL DAILY PRN suppositor 05/24/24 lisinopriL [Zestril] 2.5 mg PO DAILY@1200 tab 05/24/24 Allergies Allergy/AdvReac Type Severity Reaction Status Date / Time latex Allergy Swelling Verified 06/27/24 18:12 atorvastatin [From Lipitor] AdvReac JOINT PAIN Verified 06/27/24 18:12 Review of Systems ROS Statement: Those systems with pertinent positive or pertinent negative responses have been documented in the HPI. ROS Other: All systems not noted in ROS Statement are negative. Past Medical History Past Medical History: Coronary Artery Disease (CAD), Chest Pain / Angina, Heart Failure, COPD, GERD/Reflux, Hyperlipidemia, Hypertension, Myocardial Infarction (SC), Osteoarthritis (OA), Sleep Apnea/CPAP/BIPAP Additional Past Medical History / Comment(s): Chronic back pain, left leg weakness. No device use for Sleep Apnea, states uses O2 at night only. Recent SOB, edema lower extremitries. States unsure about having had a heart attack. Last Myocardial Infarction Date:: 11/11/22 History of Any Multi-Drug Resistant Organisms: None Reported Past Surgical History: Back Surgery, Cholecystectomy, Coronary Bypass/CABG, Heart Catheterization With Stent, Orthopedic Surgery Additional Past Surgical History / Comment(s): Back surgery X2 with cage, left tennis elbow surgery, heart stents X7, colonoscopy, lasik eye surgery bilaterally,. emergency CABG [facility] [place], thrombectomy. Past Anesthesia/Blood Transfusion Reactions: No Reported Reaction Additional Past Anesthesia/Blood Transfusion Reaction / Comment(s): Pt received blood during CABG without reaction. Date of Last Stent Placement:: Oct 2022 Past Psychological History: Anxiety, Depression, PTSD Smoking Status: Current every day smoker Past Alcohol Use History: Abuse Past Drug Use History: Cocaine - Past Family History Father Family Medical History: Coronary Artery Disease (CAD), Deep Vein Thrombosis (DVT), GERD/Reflux, Hyperlipidemia, Myocardial Infarction (SC) Additional Family Medical History / Comment(s): Father of a SC in his 80's. Mother Family Medical History: Coronary Artery Disease (CAD), Myocardial Infarction (SC) Additional Family Medical History / Comment(s): Mother of a SC. Brother(s) Family Medical History: Myocardial Infarction (SC) Additional Family Medical History / Comment(s): . Sister(s) Family Medical History: Cancer, Diabetes Mellitus Additional Family Medical History / Comment(s): Lung cancer. Other sister had Diabetes. General Exam Limitations: no limitations General appearance: alert, in no apparent distress, anxious Head exam: Present: atraumatic, normocephalic, normal inspection Eye exam: Present: normal appearance, PERRL, EOMI. Absent: scleral icterus, conjunctival injection, periorbital swelling ENT exam: Present: normal exam, mucous membranes moist Neck exam: Present: normal inspection. Absent: tenderness, meningismus, lymphadenopathy Respiratory exam: Present: normal lung sounds bilaterally. Absent: respiratory distress, wheezes, rales, rhonchi, stridor Cardiovascular Exam: Present: regular rate, normal rhythm, normal heart sounds. Absent: systolic murmur, diastolic murmur, rubs, gallop, clicks GI/Abdominal exam: Present: soft, normal bowel sounds. Absent: distended, tenderness, guarding, rebound, rigid Extremities exam: Present: normal inspection, full ROM, normal capillary refill. Absent: tenderness, pedal edema, joint swelling, calf tenderness Back exam: Present: normal inspection Neurological exam: Present: alert, oriented X3, CN II-XII intact Psychiatric exam: Present: normal affect, normal mood Skin exam: Present: warm, dry, intact, normal color. Absent: rash Course Vital Signs 06/27/24 06/27/24 06/27/24 18:02 18:30 18:55 Temperature 97.9 F Pulse Rate 86 87 Respiratory 20 24 16 Rate Blood Pressure 126/81 130/88 O2 Sat by Pulse 100 98 Oximetry 06/27/24 20:53 Temperature Pulse Rate 92 Respiratory 18 Rate Blood Pressure 112/80 O2 Sat by Pulse Oximetry - Reevaluation(s) Reevaluation #1: 06/27/24 19:24 Medical records reviewed Reevaluation #2: 06/27/24 19:24 Patient's symptoms are unchanged Reevaluation #3: 06/27/24 19:24 Patient informed of results and questions answered Reevaluation #4: Was pt. sent in by a medical professional or institution (ROBERT Zelaya, CHANGE HOUSE ATTENDANT, urgent care, hospital, or long term...) When possible be specific @ -no Did you speak to anyone other than the patient for history (EMS, parent, family, police, friend...)? What history was obtained from this source @ -no Did you review nursing and triage notes (agree or disagree)? Why? @ -agree Are old charts reviewed (outside hosp., previous admission, EMS record, old EKG, old radiological studies, urgent care reports/EKG's, long term records)? Report findings @ -yes Differential Diagnosis (chest pain, altered mental status, abdominal pain women, abdominal pain men, vaginal bleeding, weakness, fever, dyspnea, syncope, headache, dizziness, GI bleed, back pain, seizure, CVA, palpatations, mental health, musculoskeletal)? @ -prior EKG interpreted by me (3pts min.). @ -yes X-rays interpreted by me (1pt min.). @ -no CT interpreted by me (1pt min.). @ -no U/S interpreted by me (1pt. min.). @ -no What testing was considered but not performed or refused? (CT, X-rays, U/S, labs)? Why? @ -none What meds were considered but not given or refused? Why? @ -none Did you discuss the management of the patient with other professionals (professionals i.e. DrShelby, PA, CHANGE HOUSE ATTENDANT, lab, RT, psych nurse, social and human services assistant, heating unit mechanic, teacher, customs and immigration officer, continuous pillowcase cutter)? Give summary @ -no Was smoking cessation discussed for >3mins.? @ -no Was critical care preformed (if so, how long)? @ -yes31 Were there social determinants of health that impacted care today? How? (Homelessness, low income, unemployed, alcoholism, drug addiction, transp ortation, low edu. Level, literacy, decrease access to med. care, longterm, rehab)? @ -none Was there de-escalation of care discussed even if they declined (Discuss DNR or withdrawal of care, Hospice)? DNR status @ -no What co-morbidities impacted this encounter? (DM, HTN, Smoking, COPD, CAD, Cancer, CVA, ARF, Chemo, Hep., AIDS, mental health diagnosis, sleep apnea, morbid obesity)? @ -none Was patient admitted / discharged? Hospital course, mention meds given and route, prescriptions, significant lab abnormalities, going to OR and other pertinent info. @ - 69 male to be admitted for shortness of breath with known PE. Admitted Undiagnosed new problem with uncertain prognosis? @ -no Drug Therapy requiring intensive monitoring for toxicity (Heparin, Nitro, Insulin, Cardizem)? @ -no Were any procedures done? @ -no Diagnosis/symptom? @ -Pulmonary embolism Acute, or Chronic, or Acute on Chronic? @ -Acute Uncomplicated (without systemic symptoms) or Complicated (systemic symptoms)? @ -Complicated Side effects of treatment? @ -no Exacerbation, Progression, or Severe Exacerbation? @ -exacerbation Poses a threat to life or bodily function? How? (Chest pain, USA, SC, pneumonia, PE, COPD, DKA, ARF, appy, cholecystitis, CVA, Diverticulitis, Homicidal, Suicidal, threat to staff... and all critical care pts) @ -yes with PE - Consultations Consultation #1: Spoke with admitting who agrees to admit this patient Medical Decision Making - Medical Decision Making 69 male to be admitted for shortness of breath with known PE. - Radiology Data Radiology results: report reviewed (CT angio positive PE) Critical Care Time Critical Care Time: Yes Total Critical Care Time: 31 Disposition Clinical Impression: Pulmonary embolism Disposition: LEFT AGAINST MEDICAL ADVICE Condition: Serious Is patient prescribed a controlled substance at d/c from ED?: No Time of Disposition: 19:30
[2024-06-27] MEDS ORDERED: SODIUM CHLORIDE 0.9% 1,000 ML IV SCH (19:30)
[2024-06-27] MEDS: HEPARIN SOD,PORK IN 0.45% NACL 25,000 UNIT in 0.45% NACL 1 250ML.BAG IV SCH (19:39)
[2024-06-27 20:36] LABS: INR 1.1 (<1.2); Prothrombin Time 11.6 sec (10.0-12.5)
[2024-06-27 20:55] VITALS: BP 112/80; PULSE 92; RESP 18
[2024-06-28] MEDS ORDERED: PANTOPRAZOLE 40 MG/10 ML VIAL IV SCH (09:00)
== END 2024-06-27 22:06 | disposition left against medical advice (07) | DRG 176 ==
LOC: EC 17:41 → 3SCARD 19:22
PROVIDERS: ADMIT Hospitalist; ATTEND Hospitalist
DX: I26.99 Other pulmonary embolism without acute cor pulmonale (principal); I25.2 Old myocardial infarction; I11.0 Hypertensive heart disease with heart failure; I50.9 Heart failure, unspecified; K21.9 Gastro-esophageal reflux disease without esophagitis; E78.5 Hyperlipidemia, unspecified; J44.9 Chronic obstructive pulmonary disease, unspecified; F43.10 Post-traumatic stress disorder, unspecified; I25.10 Atherosclerotic heart disease of native coronary artery without angina pectoris; F17.200 Nicotine dependence, unspecified, uncomplicated; Z95.5 Presence of coronary angioplasty implant and graft; Z95.1 Presence of aortocoronary bypass graft; Z99.81 Dependence on supplemental oxygen; Z79.02 Long term (current) use of antithrombotics/antiplatelets; Z79.899 Other long term (current) drug therapy; Z91.040 Latex allergy status; Z79.01 Long term (current) use of anticoagulants; Z79.84 Long term (current) use of oral hypoglycemic drugs
CPT/HCPCS: 85610; 96374; 99285

== ENCOUNTER 2024-07-27 01:43 | Observation (INO) | payer MEDICARE, OTHER ==
[2024-07-27] MEDS: SODIUM CHLORIDE 0.9% 1,000 ML IV STA (02:07)
[2024-07-27] MEDS: NITROGLYCERIN SL TABS 0.4 MG TAB SUBLINGUAL STA (02:09)
[2024-07-27] MEDS: ASPIRIN 81 MG PO STA (02:09)
[2024-07-27] MEDS: MORPHINE SULFATE 4 MG/ML SYRINGE IV STA ×3 (02:10→05:36)
[2024-07-27 02:43] LABS: Anisocytosis Slight; Basophils % (A) 0 %; Eosinophils # (A) 0.1 k/uL (0-0.7); Eosinophils % (A) 2 %; HCT 38.7 % (39.0-53.0); HGB 11.8 gm/dL (13.0-17.5); Hypochromasia Marked; Lymphocytes # (A) 1.4 k/uL (1.0-4.8); Lymphocytes % (A) 26 %; MCH 25.6 pg (25.0-35.0); MCHC 30.5 g/dL (31.0-37.0); Mean Platelet Volume 8.5; Monocytes # (A) 0.4 k/uL (0-1.0); Monocytes % (A) 8 %; Neutrophils # (A) 3.3 k/uL (1.3-7.7); Neutrophils % (A) 60 %; Platelet Count 175 k/uL (150-450); RBC 4.62 m/uL (4.30-5.90); RDW 16.8 % (11.5-15.5); WBC 5.5 k/uL (3.8-10.6)
[2024-07-27 02:58] LABS: Partial Thromboplastin Time 26.8 sec (22.0-30.0); Prothrombin Time 10.7 sec (10.0-12.5)
[2024-07-27 02:59] LABS: ALT 11 U/L (4-49); African American GFR (CKD) >90 (>60 ml/min/1.73 sqM); Albumin 4.2 g/dL (3.5-5.0); Amylase 50 U/L (30-110); Anion Gap 8 mmol/L; Blood Urea Nitrogen 13 mg/dL (9-20); Calcium 9.5 mg/dL (8.4-10.2); Carbon Dioxide 19 mmol/L (22-30); Chloride 111 mmol/L (98-107); Glucose 92 mg/dL (74-99); Lipase 158 U/L (23-300); Non-African American GFR(CKD) >90 (>60 ml/min/1.73 sqM); Sodium 138 mmol/L (137-145); Total Bilirubin 1.1 mg/dL (0.2-1.3); Total Protein 8.4 g/dL (6.3-8.2)
[2024-07-27 03:00] LABS: AST 35 U/L (17-59); Alkaline Phosphatase 131 U/L (38-126); Magnesium 1.7 mg/dL (1.6-2.3); Potassium 4.4 mmol/L (3.5-5.1)
[2024-07-27 03:02] LABS: MCV 83.8 fL (80.0-100.0)
--- NOTE | 2024-07-27 03:21 | XR ---
EXAM: XR Chest, 1 View CLINICAL HISTORY: ITS.REASON XR Reason: chest pain TECHNIQUE: Frontal view of the chest. COMPARISON: No relevant prior studies available. IMPRESSION: Right-sided pleural effusion. Increased interstitial opacities in the right lung
[2024-07-27] MEDS: AZITHROMYCIN 500 MG TAB PO STA (04:08)
--- NOTE | 2024-07-27 04:38 | ED ---
Chest Pain HPI - General Chief Complaint: Chest Pain Stated Complaint: Chest pain Time Seen by Provider: 07/27/24 02:00 Source: patient Mode of arrival: wheelchair Limitations: no limitations - History of Present Illness Initial Comments: This patient is a 69-year-old man who presents to have evaluation of chest pain and associated dyspnea. The patient does state that he had open heart surgery in April. MD Complaint: chest pain Onset/Timin -: hour(s) Onset: during rest Pain Location: left chest, right chest Pain Radiation: RUE, LUE Severity: moderate Quality: heaviness Consistency: constant Improves With: nothing Worsens With: nothing Anginal Symptoms: dyspnea Other Symptoms: cough Treatments Prior to Arrival: nitroglycerin - Related Data Home Medications Medication Instructions Recorded Confirmed Fluticasone Nasal [place] [Flonase 1 spray EA NOSTRIL BID PRN 01/27/23 07/27/24 Nasal [place]] Clopidogrel [Plavix] 75 mg PO DAILY 08/21/23 07/27/24 Cyclobenzaprine [Flexeril] 10 mg PO BID 08/21/23 07/27/24 Ergocalciferol [Vitamin D2 (1250 1,250 mcg PO Q30D 05/10/24 07/27/24 Mcg = 46813 Iu)] Ferrous Sulfate [Iron (65 MG 325 mg PO DAILY 05/10/24 07/27/24 Elemental)] Gabapentin [Neurontin] 100 mg PO TID 05/10/24 07/27/24 ALPRAZolam [Xanax] 2 mg PO HS 07/27/24 07/27/24 HYDROcodone/APAP 10-325MG [[place] 1 tab PO BID PRN 07/27/24 07/27/24 10-325] Previous Rx's Medication Instructions Recorded Apixaban [Eliquis] 2.5 mg PO BID #60 tab 11/18/22 Ezetimibe [Zetia] 10 mg PO DAILY #90 tab 11/18/22 Sodium Bicarbonate Tab 650 mg PO TID #100 tab 01/25/24 Atorvastatin [Lipitor] 40 mg PO DAILY tab 05/24/24 Budesonide [Pulmicort] 1 mg INHALATION RT-BID ml 05/24/24 Dapagliflozin Propanediol [Farxiga] 10 mg PO DAILY tab 05/24/24 Formoterol Fumarate [Perforomist] 20 mcg INHALATION RT-BID ml 05/24/24 Furosemide [Lasix] 40 mg PO DAILY #30 tablet 05/24/24 Ipratropium-Albuterol Nebulize 3 ml INHALATION RT-Q2H PRN each 05/24/24 [Duoneb 0.5 mg-3 mg/3 ml Soln] Metoprolol Tartrate [Lopressor] 12.5 mg PO BID tab 05/24/24 Pantoprazole [Protonix] 40 mg PO AC-BRKFST tab 05/24/24 Potassium Chloride ER [K-Dur 10] 10 meq PO DAILY #30 tab 05/24/24 Spironolactone [Aldactone] 12.5 mg PO DAILY tab 05/24/24 lisinopriL [Zestril] 2.5 mg PO DAILY@1200 tab 05/24/24 Allergies Allergy/AdvReac Type Severity Reaction Status Date / Time latex Allergy Swelling Verified 07/27/24 10:31 atorvastatin [From Lipitor] AdvReac JOINT PAIN Verified 07/27/24 10:31 Review of Systems ROS Statement: Those systems with pertinent positive or pertinent negative responses have been documented in the HPI. ROS Other: All systems not noted in ROS Statement are negative. Constitutional: Reports: fever. Denies: weakness Respiratory: Reports: cough, dyspnea. Denies: wheezes, hemoptysis Cardiovascular: Reports: chest pain. Denies: palpitations, orthopnea, edema, syncope Gastrointestinal: Denies: abdominal pain, nausea, vomiting, diarrhea Genitourinary: Denies: dysuria, hematuria Musculoskeletal: Denies: back pain Skin: Denies: rash Neurological: Denies: headache, weakness, numbness EKG Findings - EKG Results: EKG: interpreted by ERMD, sinus rhythm (Rate 91 bpm) - Blocks, [place], Hypertrophy, ST Abn: QRS axis and voltage: right axis deviation (+90 to +180) (Borderline) Repolarization changes or abnormalities: ST or T wave suggestive of ischemia - VA, Pacemaker, Normal: Myocardial infarction: anterior VA (old age or indeterminate) Past Medical History Past Medical History: Coronary Artery Disease (CAD), Chest Pain / Angina, Heart Failure, COPD, GERD/Reflux, Hyperlipidemia, Hypertension, Myocardial Infarction (VA), Osteoarthritis (OA), Sleep Apnea/CPAP/BIPAP Additional Past Medical History / Comment(s): Chronic back pain, left leg weakness. No device use for Sleep Apnea, states uses O2 at night only. Recent SOB, edema lower extremitries. States unsure about having had a heart attack. Last Myocardial Infarction Date:: 11/11/22 History of Any Multi-Drug Resistant Organisms: None Reported Past Surgical History: Back Surgery, Cholecystectomy, Coronary Bypass/CABG, Heart Catheterization With Stent, Orthopedic Surgery Additional Past Surgical History / Comment(s): Back surgery X2 with cage, left tennis elbow surgery, heart stents X7, colonoscopy, lasik eye surgery bilaterally,. emergency CABG [facility] [place], thrombectomy. Past Anesthesia/Blood Transfusion Reactions: No Reported Reaction Additional Past Anesthesia/Blood Transfusion Reaction / Comment(s): Pt received blood during CABG without reaction. Date of Last Stent Placement:: Oct 2022 Past Psychological History: Anxiety, Depression, PTSD Smoking Status: Current every day smoker Past Alcohol Use History: Abuse Past Drug Use History: Cocaine - Past Family History Father Family Medical History: Coronary Artery Disease (CAD), Deep Vein Thrombosis (DVT), GERD/Reflux, Hyperlipidemia, Myocardial Infarction (VA) Additional Family Medical History / Comment(s): Father of a VA in his 80's. Mother Family Medical History: Coronary Artery Disease (CAD), Myocardial Infarction (VA) Additional Family Medical History / Comment(s): Mother of a VA. Brother(s) Family Medical History: Myocardial Infarction (VA) Additional Family Medical History / Comment(s): . Sister(s) Family Medical History: Cancer, Diabetes Mellitus Additional Family Medical History / Comment(s): Lung cancer. Other sister had Diabetes. General Exam Limitations: no limitations General appearance: alert, in no apparent distress Head exam: Present: atraumatic, normocephalic Eye exam: Present: normal appearance. Absent: scleral icterus, conjunctival injection Neck exam: Present: normal inspection Respiratory exam: Present: normal lung sounds bilaterally, chest wall tenderness. Absent: respiratory distress, wheezes, rales, rhonchi, stridor, accessory muscle use Cardiovascular Exam: Present: regular rate, normal rhythm. Absent: systolic murmur, diastolic murmur, rubs, gallop GI/Abdominal exam: Present: soft. Absent: distended, tenderness, guarding, rebound, rigid, mass Extremities exam: Present: normal inspection, normal capillary refill. Absent: pedal edema, calf tenderness Back exam: Present: normal inspection. Absent: CVA tenderness (R), CVA tenderness (L) Neurological exam: Present: alert Skin exam: Present: warm, dry, intact, normal color. Absent: rash Course Vital Signs 07/27/24 07/27/24 07/27/24 01:45 02:45 03:38 Temperature 97.9 F Pulse Rate 110 H 80 81 Pulse Rate [ Pulse Oximetery ] Respiratory 20 16 16 Rate Blood Pressure 146/80 125/74 117/75 Blood Pressure [Left Arm] O2 Sat by Pulse 95 94 L 96 Oximetry 07/27/24 07/27/24 07/27/24 04:35 05:45 06:57 Temperature 97.9 F Pulse Rate 76 76 73 Pulse Rate [ Pulse Oximetery ] Respiratory 16 16 18 Rate Blood Pressure 118/75 118/68 108/69 Blood Pressure [Left Arm] O2 Sat by Pulse 96 94 L 95 Oximetry 07/27/24 07/27/24 07/27/24 07:49 08:00 10:09 Temperature 97.6 F 97.7 F 97.0 F L Pulse Rate 75 87 Pulse Rate [ 88 Pulse Oximetery ] Respiratory 16 14 20 Rate Blood Pressure 117/66 120/69 Blood Pressure 106/65 [Left Arm] O2 Sat by Pulse 98 98 98 Oximetry 07/27/24 07/27/24 07/27/24 10:18 10:34 11:00 Temperature Pulse Rate 93 90 91 Pulse Rate [ Pulse Oximetery ] Respiratory 20 18 16 Rate Blood Pressure 135/83 132/80 Blood Pressure [Left Arm] O2 Sat by Pulse 100 100 99 Oximetry 07/27/24 07/27/24 07/27/24 11:57 12:12 13:27 Temperature Pulse Rate 92 90 83 Pulse Rate [ Pulse Oximetery ] Respiratory 18 Rate Blood Pressure 103/61 Blood Pressure [Left Arm] O2 Sat by Pulse 100 Oximetry 07/27/24 07/27/24 07/27/24 15:50 16:04 18:02 Temperature Pulse Rate 84 88 81 Pulse Rate [ Pulse Oximetery ] Respiratory 17 Rate Blood Pressure 124/82 Blood Pressure [Left Arm] O2 Sat by Pulse 93 L Oximetry 07/27/24 07/27/24 07/27/24 20:00 20:11 20:20 Temperature 97.5 F L Pulse Rate 81 79 Pulse Rate [ 88 Pulse Oximetery ] Respiratory 20 20 Rate Blood Pressure 123/75 Blood Pressure [Left Arm] O2 Sat by Pulse 92 L Oximetry 07/27/24 07/27/24 20:26 20:27 Temperature Pulse Rate 84 84 Pulse Rate [ Pulse Oximetery ] Respiratory Rate Blood Pressure Blood Pressure [Left Arm] O2 Sat by Pulse Oximetry Chest Pain MDM - MDM Was pt. sent in by a medical professional or institution (, PA, NURSE GYNECOLOGY, urgent care, hospital, or detention...) When possible be specific @ -[No] Did you speak to anyone other than the patient for history (EMS, parent, family, police, friend...)? What history was obtained from this source @ -[No] Did you review nursing and triage notes (agree or disagree)? Why? @ -[I reviewed and agree with nursing and triage notes] Were old charts reviewed (outside hosp., previous admission, EMS record, old EKG, old radiological studies, urgent care reports/EKG's, detention records)? Report findings @ -[No old charts were reviewed] Differential Diagnosis (chest pain, altered mental status, abdominal pain women, abdominal pain men, vaginal bleeding, weakness, fever, dyspnea, syncope, headache, dizziness, GI bleed, back pain, seizure, CVA, palpatations, mental health, musculoskeletal)? @ -[Differential Chest Pain: Stable Angina, Unstable Angina, STEMI, NSTEMI Aortic Dissection, Pneumothorax, Musculoskeletal, Esophageal Spasm GERD, Cholecystitis, Pancreatitis, Zoster, this is not meant to be an all-inclusive list. EKG interpreted by me (3pts min.). @ -[I interpreted as above] X-rays interpreted by me (1pt min.). @ -[The patient had chest x-ray that I interpreted as showing presence of right-sided pleural effusion CT interpreted by me (1pt min.). @ -[The patient had CT scan of the chest that I interpreted as negative for ac [place] pulmonary embolism. There is pleural effusion U/S interpreted by me (1pt. min.). @ -[None done] What testing was considered but not performed or refused? (CT, X-rays, U/S, labs)? Why? @ -[None] What meds were considered but not given or refused? Why? @ -[None] Did you discuss the management of the patient with other professionals (professionals i.e. , PA, NURSE GYNECOLOGY, lab, RT, psych nurse, social worker delinquency prevention, social work nurse, teacher, space officer, adult protective caseworker)? Give summary @ -[Case discussed with admitting physician and treatment recommendations incorporated. Was smoking cessation discussed for >3mins.? @ -[No] Was critical care preformed (if so, how long)? @ -[No] Were there social determinants of health that impacted care today? How? (Homelessness, low income, unemployed, alcoholism, drug addiction, transportation, low edu. Level, literacy, decrease access to med. care, prison, rehab)? @ -[No] Was there de-escalation of care discussed even if they declined (Discuss DNR or withdrawal of care, Hospice)? DNR status @ -[No] What co-morbidities impacted this encounter? (DM, HTN, Smoking, COPD, CAD, Cancer, CVA, ARF, Chemo, Hep., AIDS, mental health diagnosis, sleep apnea, morbid obesity)? @ -[History of coronary artery disease. Recent coronary bypass Was patient admitted / discharged? Hospital course, mention meds given and route, prescriptions, significant lab abnormalities, going to OR and other pertinent info. @ -[Patient is a 69-year-old man presenting with chest pain and dyspnea and is found to have moderate-sized pleural effusion. Given this we will have admission with pulmonology consultation for possible thoracentesis. Undiagnosed new problem with uncertain prognosis? @ -[No] Drug Therapy requiring intensive monitoring for toxicity (Heparin, Nitro, Insulin, Cardizem)? @ -[No] Were any procedures done? @ -[No] Diagnosis/symptom? @ -[Acute chest pain Acute pleural effusion Acute, or Chronic, or Acute on Chronic? @ -[Acute Uncomplicated (without systemic symptoms) or Complicated (systemic symptoms)? @ -[Complicated by dyspnea Side effects of treatment? @ -[No] Exacerbation, Progression, or Severe Exacerbation? @ -[No] Poses a threat to life or bodily function? How? (Chest pain, [place], [place], pneumonia, PE, COPD, DKA, ARF, appy, cholecystitis, CVA, Diverticulitis, Homicidal, Suicidal, threat to staff... and all critical care pts) @ -[Yes Disposition Clinical Impression: Pleural effusion, Chest pain Disposition: ADMITTED IP TO THIS HOSP Condition: Fair Is patient prescribed a controlled substance at d/c from ED?: No
[2024-07-27] MEDS ORDERED: MORPHINE SULFATE 4 MG/ML SYRINGE IV PRN (06:13)
[2024-07-27] MEDS ORDERED: NITROGLYCERIN SL TABS 0.4 MG TAB SUBLINGUAL PRN (06:13)
--- NOTE | 2024-07-27 07:07 | CT ---
EXAMINATION TYPE: CT chest angio for PE DATE OF EXAM: 07/27/2024 COMPARISON: 11/24/2023 HISTORY: Patient comes in with complaints of chest pain. Started around midnight. Non-radiating. Open heart in April. elevated D-DIMER 2.65 CT DLP: 546.9 mGycm Automated exposure control for dose reduction was used. CONTRAST: CT Chest for pulmonary embolism performed with with IV Contrast, patient injected with 80 ml mL of Is ovue 370. FINDINGS: CTA chest. HISTORY: Shortness of breath and elevated d-dimer rule out pulmonary embolism. TECHNIQUE: Multiple axial images are obtained through the chest. Uneventful administration of nonioni c IV contrast. Exam was performed according to department protocol for CTA chests. 3-D postprocessing was performed. FINDINGS: There is a large right pleural effusion significantly larger than that seen on the prior study. There is been interval development of a small left pleural effusion. There are 2 stable mildly enlarged right hilar lymph nodes. There is a right lower lobe infiltrate or atelectasis secondary to the large effusion. The great vessels chest are normal and there is no filling defect within the pulmonary arterial circu lation to suggest pulmonary embolism. Limited scans the upper abdomen reveals a cirrhotic liver and cholecystectomy. IMPRESSION: 1. No evidence of pulmonary embolism. 2. Large right pleural effusion significantly larger than that seen on the prior study. Right lower l obe infiltrate consistent with pneumonia or atelectasis secondary to effusion. 3. Interval development of small left pleural effusion. 4. Cirrhotic liver. 5. 2 stable mildly enlarged right hilar lymph nodes [facility], , 07/27/2024 7:04 AM
[2024-07-27] MEDS ORDERED: HEPARIN SODIUM 1,000 UN/ML (10ML VL) IV PRN (07:18)
[2024-07-27 08:17] LABS: Anisocytosis Slight; Basophils % (A) 1 %; Eosinophils # (A) 0.1 k/uL (0-0.7); Eosinophils % (A) 3 %; HCT 35.9 % (39.0-53.0); HGB 10.8 gm/dL (13.0-17.5); Hypochromasia Marked; Lymphocytes # (A) 1.1 k/uL (1.0-4.8); Lymphocytes % (A) 28 %; MCH 25.8 pg (25.0-35.0); MCV 86.1 fL (80.0-100.0); Mean Platelet Volume 7.4; Monocytes # (A) 0.3 k/uL (0-1.0); Monocytes % (A) 8 %; Neutrophils # (A) 2.3 k/uL (1.3-7.7); Neutrophils % (A) 58 %; Platelet Count 153 k/uL (150-450); RBC 4.17 m/uL (4.30-5.90); RDW 16.5 % (11.5-15.5)
[2024-07-27 08:28] LABS: INR 1.1 (<1.2); Prothrombin Time 11.7 sec (10.0-12.5)
[2024-07-27] MEDS: HEPARIN SODIUM 1,000 UN/ML (10ML VL) IV ONE (08:58)
[2024-07-27] MEDS: HEPARIN SOD,PORK IN 0.45% NACL 25,000 UNIT in 0.45% NACL 1 250ML.BAG IV SCH (09:00)
[2024-07-27] MEDS ORDERED: IPRATROPIUM-ALBUTEROL 3 ML NEB INHALATION PRN (10:01)
[2024-07-27] MEDS ORDERED: MAGNESIUM HYDROXIDE 2,400 MG/30 ML CUP PO PRN (10:01)
[2024-07-27] MEDS ORDERED: SENNOSIDES-DOCUSATE SODIUM 1 EACH TAB PO PRN (10:01)
[2024-07-27] MEDS: MORPHINE SULFATE 4 MG/ML SYRINGE IVP PRN (10:30)
--- NOTE | 2024-07-27 10:46 | XR ---
EXAMINATION TYPE: XR chest 1V portable DATE OF EXAM: 07/27/2024 COMPARISON: 07/19/2024 HISTORY: Postthoracentesis TECHNIQUE: Single frontal view of the chest is obtained. FINDINGS: There is a mild reduction in the right pleural effusion although small right pleural effusion persist s. The is no pneumothorax. The heart is enlarged and the pulmonary vasculature appears mildly congested. The osseous structures are intact. IMPRESSION: Mild reduction in the right pleural effusion. There is no pneumothorax [facility], , 07/27/2024 10:43 AM
[2024-07-27] MEDS: EZETIMIBE 10 MG TAB PO SCH (11:29)
[2024-07-27] MEDS: DAPAGLIFLOZIN PROPANEDIOL 10 MG TABLET PO SCH (11:29)
[2024-07-27] MEDS: PANTOPRAZOLE 40 MG TABLET PO SCH (11:29)
[2024-07-27] MEDS: IPRATROPIUM-ALBUTEROL 3 ML NEB INHALATION SCH (11:57)
--- NOTE | 2024-07-27 13:04 | CT ---
EXAMINATION TYPE: CT brain wo con DATE OF EXAM: 07/27/2024 COMPARISON: None HISTORY: confused, fall CT DLP: 1207 mGycm Automated exposure control for dose reduction was used. Findings: The ventricles, basal cisterns and sulci over the convexities are mildly dilated consistent with mild age-appropriate atrophy. There is no mass effect or shift of midline structures. No abnormal density is seen throughout the brain parenchyma and there is no acute intra or extra-axia l hemorrhage. The posterior fossa including the brainstem, fourth ventricle and cerebellar pontine angles appear no rmal. Intraorbital contents appear normal and symmetric. Visualized paranasal sinuses and mastoid air cells are well aerated. The calvarium is intact. IMPRESSION: 1. No acute bleed or mass effect. 2. Mild age-appropriate atrophy. 3. Calvarium intact [facility], , 07/27/2024 1:02 PM
[2024-07-27] MEDS: HYDROcodone/APAP 10-325MG 1 EACH TAB PO PRN (13:29)
[2024-07-27] MEDS: CLOPIDOGREL 75 MG TAB PO SCH (13:30)
[2024-07-27] MEDS: ALPRAZolam 1 MG TAB PO PRN (13:30)
--- NOTE | 2024-07-27 14:13 | P.CRDCN ---
History of Present Illness Consult date: 07/27/24 Consult reason: chest pain History of present illness: HISTORY OF PRESENT ILLNESS: This is a 69-year-old male with past medical history significant for CAD status post CABG and subsequently redo CABG as well as severe cardiomyopathy with EF between 25 to 30%, valvular heart disease, hypertension, dyslipidemia, chronic kidney disease, and history of pleural effusions. He also states he has a history of paroxysmal A-fib. Patient follows in the office with Dr. Wiggins. We have been asked to see the patient in consultation for chest pain. Patient was examined at the bedside in the emergency room. Patient came to the hospital [facility] he has been having this chest pain since yesterday which he has rated an 8 out of 10. He states that he is also short of breath and the pain worsens with deep breathing. he denies leg swelling, dizziness, cough, fever. Patient states he is still currently smoking although he has cut back. DIAGNOSTICS: EKG showed rhythm, rate 91, possible right axis deviation, Chest x-ray shows right-sided pleural effusion Chest CTA showed no evidence of pulmonary embolism, stable mildly enlarged hilar lymph nodes. Head CT showed no no acute bleed Laboratory data: Hemoglobin discharge 10.8, D-dimer 2.65. Troponins x 3 normal. Current cardiac home medications: Eliquis 2.5 mg twice daily, Lipitor 40 mg daily, Plavix 75 mg daily, Zetia 10 mg, Lasix 40 mg, lisinopril 12.5 mg twice daily, K-Dur 10 daily, sodium bicarbonate 650 mg 3 times daily, Aldactone 12.5 mg daily REVIEW OF SYSTEMS: As stated above in HPI. All other systems negative. PHYSICAL EXAM: VITAL SIGNS: Reviewed. BP 117/66, heart rate 75, satting well on 2 L nasal cannula GENERAL: Well-developed in no acute distress. HEENT: Head is normocephalic. Pupils are equal, round. Sclerae anicteric. Mucous membranes of the mouth are moist. Neck supple. No JVD or thyromegaly LUNGS: Respirations even and unlabored. Diminished breath sounds bilaterally. Some rhonchi at the right base. HEART: Regular rate and rhythm. S1 and S2 heard. Soft systolic murmur ABDOMEN: Soft. Nontender to palpation. EXTREMITIES: Normal range of motion. No clubbing or cyanosis. Peripheral pulses intact. No notable lower extremity edema. NEUROLOGIC: Awake and alert. Oriented x 3. ASSESSMENT: Chest pain, non-cardiogenic in nature Right pleural effusion History of paroxysmal A-fib CAD status post CABG and redo CABG Severe ischemic cardiomyopathy with EF 25% Hypertension Dyslipidemia Chronic kidney disease PLAN: Discontinued heparin drip Started aspirin 81 mg and Plavix 75 mg Continued other home medications Holding Eliquis, consider discontinuation due to no recent episodes of A-fib Discussed importance of smoking cessation with patient Pulmonology following Monitor vital signs, daily weights, electrolytes and renal function Further recommendations to follow based upon clinical course Thank you kindly for this consultation. Past Medical History Past Medical History: Coronary Artery Disease (CAD), Chest Pain / Angina, Heart Failure, COPD, GERD/Reflux, Hyperlipidemia, Hypertension, Myocardial Infarction (ND), Osteoarthritis (OA), Sleep Apnea/CPAP/BIPAP Additional Past Medical History / Comment(s): Chronic back pain, left leg weakness. No device use for Sleep Apnea, states uses O2 at night only. Recent SO B, edema lower extremitries. States unsure about having had a heart attack. Last Myocardial Infarction Date:: 11/11/22 History of Any Multi-Drug Resistant Organisms: None Reported Past Surgical History: Back Surgery, Cholecystectomy, Coronary Bypass/CABG, Heart Catheterization With Stent, Orthopedic Surgery Additional Past Surgical History / Comment(s): Back surgery X2 with cage, left tennis elbow surgery, heart stents X7, colonoscopy, lasik eye surgery bilaterally,. emergency CABG [facility] [place], thrombectomy. Past Anesthesia/Blood Transfusion Reactions: No Reported Reaction Additional Past Anesthesia/Blood Transfusion Reaction / Comment(s): Pt received blood during CABG without reaction. Date of Last Stent Placement:: Oct 2022 Past Psychological History: Anxiety, Depression, PTSD Smoking Status: Current every day smoker Past Alcohol Use History: Abuse Past Drug Use History: Cocaine - Past Family History Father Family Medical History: Coronary Artery Disease (CAD), Deep Vein Thrombosis (DVT), GERD/Reflux, Hyperlipidemia, Myocardial Infarction (ND) Additional Family Medical History / Comment(s): Father of a ND in his 80's. Mother Family Medical History: Coronary Artery Disease (CAD), Myocardial Infarction (ND) Additional Family Medical History / Comment(s): Mother of a ND. Brother(s) Family Medical History: Myocardial Infarction (ND) Additional Family Medical History / Comment(s): . Sister(s) Family Medical History: Cancer, Diabetes Mellitus Additional Family Medical History / Comment(s): Lung cancer. Other sister had Diabetes. Medications and Allergies Home Medications Medication Instructions Recorded Confirmed Type Apixaban [Eliquis] 2.5 mg PO BID #60 tab 11/18/22 07/27/24 Rx Ezetimibe [Zetia] 10 mg PO DAILY #90 tab 11/18/22 07/27/24 Rx Fluticasone Nasal Igo [Flonase 1 spray EA NOSTRIL BID PRN 01/27/23 07/27/24 History Nasal Igo] Clopidogrel [Plavix] 75 mg PO DAILY 08/21/23 07/27/24 History Cyclobenzaprine [Flexeril] 10 mg PO BID 08/21/23 07/27/24 History Sodium Bicarbonate Tab 650 mg PO TID #100 tab 01/25/24 07/27/24 Rx Ergocalciferol [Vitamin D2 (1250 1,250 mcg PO Q30D 05/10/24 07/27/24 History Mcg = 23430 Iu)] Ferrous Sulfate [Iron (65 MG 325 mg PO DAILY 05/10/24 07/27/24 History Elemental)] Gabapentin [Neurontin] 100 mg PO TID 05/10/24 07/27/24 History Atorvastatin [Lipitor] 40 mg PO DAILY tab 05/24/24 07/27/24 Rx Budesonide [Pulmicort] 1 mg INHALATION RT-BID ml 05/24/24 07/27/24 Rx Dapagliflozin Propanediol [Farxiga] 10 mg PO DAILY tab 05/24/24 07/27/24 Rx Formoterol Fumarate [Perforomist] 20 mcg INHALATION RT-BID ml 05/24/24 07/27/24 Rx Furosemide [Lasix] 40 mg PO DAILY #30 tablet 05/24/24 07/27/24 Rx Ipratropium-Albuterol Nebulize 3 ml INHALATION RT-Q2H PRN each 05/24/24 07/27/24 Rx [Duoneb 0.5 mg-3 mg/3 ml Soln] Ipratropium-Albuterol Nebulize 3 ml INHALATION RT-QID each 05/24/24 07/27/24 Rx [Duoneb 0.5 mg-3 mg/3 ml Soln] Metoprolol Tartrate [Lopressor] 12.5 mg PO BID tab 05/24/24 07/27/24 Rx Pantoprazole [Protonix] 40 mg PO AC-BRKFST tab 05/24/24 07/27/24 Rx Potassium Chloride ER [K-Dur 10] 10 meq PO DAILY #30 tab 05/24/24 07/27/24 Rx Spironolactone [Aldactone] 12.5 mg PO DAILY tab 05/24/24 07/27/24 Rx lisinopriL [Zestril] 2.5 mg PO DAILY@1200 tab 05/24/24 07/27/24 Rx ALPRAZolam [Xanax] 2 mg PO HS 07/27/24 07/27/24 History HYDROcodone/APAP 10-325MG [[place] 1 tab PO BID PRN 07/27/24 07/27/24 History 10-325] Allergies Allergy/AdvReac Type Severity Reaction Status Date / Time latex Allergy Swelling Verified 07/27/24 10:31 atorvastatin [From Lipitor] AdvReac JOINT PAIN Verified 07/27/24 10:31 Physical Exam Vitals: Vital Signs Temp Pulse Resp BP Pulse Ox 07/27/24 10:09 97.0 F L 87 20 120/69 98 07/27/24 07:49 97.6 F 75 16 117/66 98 07/27/24 06:57 73 18 108/69 95 07/27/24 05:45 97.9 F 76 16 118/68 94 L 07/27/24 04:35 76 16 118/75 96 07/27/24 03:38 81 16 117/75 96 07/27/24 02:45 80 16 125/74 94 L 07/27/24 01:45 97.9 F 110 H 20 146/80 95 Intake and Output 07/26/24 07/27/24 07/27/24 22:59 06:59 14:59 Intake Total 0.218 Balance 0.218 Intake: Intake, IV Titration 0.218 Amount Heparin Sod,Pork in 0.45% 0.218 NaCl 25,000 unit In 0.45 % NaCl 1 250ml.bag @ 18 UNITS/KG/HR 13.064 mls/hr IV .Q19H9M [facility] Rx#: [id number] Other: Weight 72.575 kg Results 07/27/24 07:45 07/27/24 02:04 Cardiac Enzymes 07/27/24 07/27/24 07/27/24 Range/Units 02:04 02:04 05:01 AST 35 (17-59) U/L Troponin I 0.023 0.026 (0.000-0.034) ng/mL 07/27/24 Range/Units 07:45 AST (17-59) U/L Troponin I 0.021 (0.000-0.034) ng/mL Coagulation 07/27/24 07/27/24 Range/Units 02:04 07:45 PT 10.7 11.7 (10.0-12.5) sec APTT 26.8 (22.0-30.0) sec CBC 07/27/24 07/27/24 Range/Units 02:04 07:45 WBC 5.5 4.0 (3.8-10.6) k/uL RBC 4.62 4.17 L (4.30-5.90) m/uL Hgb 11.8 L 10.8 L (13.0-17.5) gm/dL Hct 38.7 L 35.9 L (39.0-53.0) % Plt Count 175 153 (150-450) k/uL Comprehensive Metabolic Panel 07/27/24 Range/Units 02:04 Sodium 138 (137-145) mmol/L Potassium 4.4 (3.5-5.1) mmol/L Chloride 111 H (98-107) mmol/L Carbon Dioxide 19 L (22-30) mmol/L BUN 13 (9-20) mg/dL Creatinine 0.75 (0.66-1.25) mg/dL Glucose 92 (74-99) mg/dL Calcium 9.5 (8.4-10.2) mg/dL AST 35 (17-59) U/L ALT 11 (4-49) U/L Alkaline Phosphatase 131 H (38-126) U/L Total Protein 8.4 H (6.3-8.2) g/dL Albumin 4.2 (3.5-5.0) g/dL Current Medications Generic Name Dose Route Start Last Admin Trade Name Freq PRN Reason Stop Dose Admin Hydrocodone Bitart/Acetaminophen 1 each 07/27/24 10:01 Hydrocodone/Apap 10-325mg 1 Each Tab PO Q8HR PRN Pain Albuterol/Ipratropium 3 ml 07/27/24 10:01 Ipratropium-Albuterol 3 Ml Neb INHALATION RT-Q2H PRN Shortness Of Breath Or Wheezing Albuterol/Ipratropium 3 ml 07/27/24 12:00 Ipratropium-Albuterol 3 Ml Neb INHALATION RT-QID [facility] Alprazolam 1 mg 07/27/24 10:01 Alprazolam 1 Mg Tab PO BID PRN Anxiety Alprazolam 2 mg 07/27/24 21:00 Alprazolam 1 Mg Tab PO HS ELIANA Aspirin 325 mg 07/28/24 09:00 Aspirin 325 Mg Tab PO DAILY [facility] Atorvastatin Calcium 40 mg 07/28/24 09:00 Atorvastatin 40 Mg Tab PO DAILY [facility] Budesonide 1 mg 07/27/24 20:00 Budesonide 1 Mg/2 Ml Nebu INHALATION RT-BID [facility] Cyclobenzaprine HCl 10 mg 07/27/24 16:00 Cyclobenzaprine 10 Mg Tab PO TID [facility] Dapagliflozin 10 mg 07/27/24 10:15 Dapagliflozin Propanediol 10 Mg Tablet PO DAILY [facility] Ezetimibe 10 mg 07/27/24 10:15 Ezetimibe 10 Mg Tab PO DAILY [facility] Formoterol Fumarate 20 mcg 07/27/24 20:00 Formoterol Fumarate 20 Mcg/2 Ml Nebu INHALATION RT-BID [facility] Furosemide 40 mg 07/28/24 09:00 Furosemide 40 Mg Tab PO DAILY [facility] Gabapentin 100 mg 07/27/24 16:00 Gabapentin 100 Mg Cap PO TID [facility] Heparin Sodium (Porcine) 0 unit 07/27/24 07:18 Heparin Sodium 1,000 Un/Ml (10ml Vl) IV PER PROTOCOL PRN Low PTT Protocol Sodium Chloride 1,000 mls @ 20 mls/hr 07/27/24 02:00 07/27/24 02:07 Saline 0.9% IV 07/28/24 01:59 20 mls/hr .Q24H STA Administration Heparin Sodium/Sodium Chloride 250 mls @ 13.064 mls/hr 07/27/24 07:30 07/27/24 09:01 25,000 unit/ Sodium Chloride IV 0 units/kg/hr .Q19H9M ELIANA 0 mls/hr Titration Protocol 18 UNITS/KG/HR Magnesium Hydroxide 2,400 mg 07/27/24 10:01 Magnesium Hydroxide 2,400 Mg/30 Ml Cup PO BID PRN Constipation Metoprolol Tartrate 12.5 mg 07/27/24 21:00 Metoprolol Tartrate 12.5 Mg Tab PO BID [facility] Morphine Sulfate 4 mg 07/27/24 08:19 Morphine Sulfate 4 Mg/Ml Syringe IVP Q3HR PRN Pain Nitroglycerin 0.4 mg 07/27/24 06:13 Nitroglycerin Sl Tabs 0.4 Mg Tab SUBLINGUAL Q5M PRN Chest Pain Pantoprazole Sodium 40 mg 07/27/24 10:15 Pantoprazole 40 Mg Tablet PO AC-BRKFST [facility] Potassium Chloride 10 meq 07/28/24 09:00 Potassium Chloride Er 10 Meq Tab.Er.Prt PO DAILY [facility] Senna/Docusate Sodium 2 each 07/27/24 10:01 Sennosides-Docusate Sodium 1 Each Tab PO HS PRN Constipation Sodium Bicarbonate 650 mg 07/27/24 16:00 Sodium Bicarbonate Tab 650 Mg Tab PO TID ELIANA Spironolactone 12.5 mg 07/28/24 09:00 Spironolactone 25 Mg Tab PO DAILY [facility] Intake and Output 07/26/24 07/27/24 07/27/24 22:59 06:59 14:59 Intake Total 0.218 Balance 0.218 Intake: Intake, IV Titration 0.218 Amount Heparin Sod,Pork in 0.45% 0.218 NaCl 25,000 unit In 0.45 % NaCl 1 250ml.bag @ 18 UNITS/KG/HR 13.064 mls/hr IV .Q19H9M [facility] Rx#: [id number] Other: Weight 72.575 kg 07/27/24 07:45 07/27/24 02:04
--- NOTE | 2024-07-27 14:43 | P.CNPUL ---
History of Present Illness Consult date: 07/27/24 Reason for consult: dyspnea History of present illness: This is a 69-year-old male patient was coming into the emergency department because of chest pain and shortness of breath. The patient is known to have coronary artery disease and the patient has undergone previous coronary intervention multiple stenting for previous myocardial infarction's and the patient has undergone previous coronary artery bypass surgery around 20 years ago and more recently, in April 2024, the patient underwent two-vessel redo off- pump bypass surgery. He is known to have ischemic cardiomyopathy with an ejection fraction of around 20 to 25%. He is also known to have hypertension hyperlipidemia and left carotid artery stenosis in the order of 50 to 79%. He suffers from chronic stage IIIb kidney disease. He is also known to have severe COPD with an FEV1 of 43% predicted and obstructive sleep apnea. During his last admission, the patient underwent a right-sided thoracentesis and a total of 1.7 L of pleural fluid was aspirated from the right lung and the fluid was transudative fluid cytology was negative for malignancy. During this current admission, the patient's troponins are negative. The patient has a procalcitonin level of 0.04. Electrolytes are showing a component of anion gap metabolic acidosis with a serum bicarb of 19 and a gap of 8 and a sodium level of 138. LFTs are essentially within normal limits. The white cell count is at 4 with a hemoglobin 7.8 and a platelet count of 153. The chest x-ray shows cardiomegaly and right-sided pleural effusion. Following that, the patient underwent a CTA of the chest that showed no evidence of any pulmonary embolism and a moderate-sized right-sided pleural effusion was again noted along with compressive atelectasis of the right lung base and possibly some cirrhotic nature of the liver. I performed a bedside thoracentesis on this patient and I removed approximately 1.8 L of pleural fluid from the right lung. Repeat chest x-ray that was done following the thoracentesis shows no evidence of any pneumothorax and there is marked improvement in aeration in the right lung base. Meanwhile, CAT scan of the brain was also done that showed no acute process. The patient is currently on 2 L of oxygen by nasal cannula with a pulse ox of 99 to 100%. Review of Systems Constitutional: Reports fatigue, Reports weight loss Eyes: denies as per HPI, denies blurred vision, denies bulging eye, denies decreased vision, denies diplopia, denies discharge, denies dry eye, denies irritation, denies itching, denies pain, denies photophobia, denies loss of peripheral vision, denies loss of vision, denies tunnel vision/blind spots Ears: deny: decreased hearing, ear discharge, earache, tinnitus Ears, nose, mouth and throat: Reports as per HPI Breasts: absent: as per HPI, gynecomastia Cardiovascular: Reports chest pain, Reports decreased exercise tolerance, Reports dyspnea on exertion Respiratory: Reports dyspnea, Reports sleep apnea Gastrointestinal: Reports as per HPI Genitourinary: Reports as per HPI Musculoskeletal: Reports as per HPI Musculoskeletal: absent: ankle pain, ankle stiffness, ankle swelling, as per HPI, elbow pain, elbow stiffness, elbow swelling, foot pain, foot stiffness, foot swelling, hand pain, hand stiffness, hand swelling, hip pain, hip stiffness, hip swelling, knee pain, knee stiffness, knee swelling, shoulder pain, shoulder stiffness, shoulder swelling, wrist pain, wrist stiffness, wrist swelling Neurological: Reports as per HPI Psychiatric: Reports as per HPI Hematologic/Lymphatic: Reports as per HPI Allergic/Immunologic: Reports as per HPI Past Medical History Past Medical History: Coronary Artery Disease (CAD), Chest Pain / Angina, Heart Failure, COPD, GERD/Reflux, Hyperlipidemia, Hypertension, Myocardial Infarction (AL), Osteoarthritis (OA), Sleep Apnea/CPAP/BIPAP Additional Past Medical History / Comment(s): Chronic back pain, left leg weakness. No device use for Sleep Apnea, states uses O2 at night only. Recent SOB, edema lower extremitries. States unsure about having had a heart attack. Last Myocardial Infarction Date:: 11/11/22 History of Any Multi-Drug Resistant Organisms: None Reported Past Surgical History: Back Surgery, Cholecystectomy, Coronary Bypass/CABG, Heart Catheterization With Stent, Orthopedic Surgery Additional Past Surgical History / Comment(s): Back surgery X2 with cage, left tennis elbow surgery, heart stents X7, colonoscopy, lasik eye surgery bilaterally,. emergency CABG [facility], thrombectomy. Past Anesthesia/Blood Transfusion Reactions: No Reported Reaction Additional Past Anesthesia/Blood Transfusion Reaction / Comment(s): Pt received blood during CABG without reaction. Date of Last Stent Placement:: Oct 2022 Past Psychological History: Anxiety, Depression, PTSD Smoking Status: Current every day smoker Past Alcohol Use History: Abuse Past Drug Use History: Cocaine - Past Family History Father Family Medical History: Coronary Artery Disease (CAD), Deep Vein Thrombosis (DVT), GERD/Reflux, Hyperlipidemia, Myocardial Infarction (AL) Additional Family Medical History / Comment(s): Father of a AL in his 80's. Mother Family Medical History: Coronary Artery Disease (CAD), Myocardial Infarction (AL) Additional Family Medical History / Comment(s): Mother of a AL. Brother(s) Family Medical History: Myocardial Infarction (AL) Additional Family Medical History / Comment(s): . Sister(s) Family Medical History: Cancer, Diabetes Mellitus Additional Family Medical History / Comment(s): Lung cancer. Other sister had Diabetes. Medications and Allergies Home Medications Medication Instructions Recorded Confirmed Type Apixaban [Eliquis] 2.5 mg PO BID #60 tab 11/18/22 07/27/24 Rx Ezetimibe [Zetia] 10 mg PO DAILY #90 tab 11/18/22 07/27/24 Rx Fluticasone Nasal [place] [Flonase 1 spray EA NOSTRIL BID PRN 01/27/23 07/27/24 History Nasal [place]] Clopidogrel [Plavix] 75 mg PO DAILY 08/21/23 07/27/24 History Cyclobenzaprine [Flexeril] 10 mg PO BID 08/21/23 07/27/24 History Sodium Bicarbonate Tab 650 mg PO TID #100 tab 01/25/24 07/27/24 Rx Ergocalciferol [Vitamin D2 (1250 1,250 mcg PO Q30D 05/10/24 07/27/24 History Mcg = 38704 Iu)] Ferrous Sulfate [Iron (65 MG 325 mg PO DAILY 05/10/24 07/27/24 History Elemental)] Gabapentin [Neurontin] 100 mg PO TID 05/10/24 07/27/24 History Atorvastatin [Lipitor] 40 mg PO DAILY tab 05/24/24 07/27/24 Rx Budesonide [Pulmicort] 1 mg INHALATION RT-BID ml 05/24/24 07/27/24 Rx Dapagliflozin Propanediol [Farxiga] 10 mg PO DAILY tab 05/24/24 07/27/24 Rx Formoterol Fumarate [Perforomist] 20 mcg INHALATION RT-BID ml 05/24/24 07/27/24 Rx Furosemide [Lasix] 40 mg PO DAILY #30 tablet 05/24/24 07/27/24 Rx Ipratropium-Albuterol Nebulize 3 ml INHALATION RT-Q2H PRN each 05/24/24 07/27/24 Rx [Duoneb 0.5 mg-3 mg/3 ml Soln] Ipratropium-Albuterol Nebulize 3 ml INHALATION RT-QID each 05/24/24 07/27/24 Rx [Duoneb 0.5 mg-3 mg/3 ml Soln] Metoprolol Tartrate [Lopressor] 12.5 mg PO BID tab 05/24/24 07/27/24 Rx Pantoprazole [Protonix] 40 mg PO AC-BRKFST tab 05/24/24 07/27/24 Rx Potassium Chloride ER [K-Dur 10] 10 meq PO DAILY #30 tab 05/24/24 07/27/24 Rx Spironolactone [Aldactone] 12.5 mg PO DAILY tab 05/24/24 07/27/24 Rx lisinopriL [Zestril] 2.5 mg PO DAILY@1200 tab 05/24/24 07/27/24 Rx ALPRAZolam [Xanax] 2 mg PO HS 07/27/24 07/27/24 History HYDROcodone/APAP 10-325MG [[place] 1 tab PO BID PRN 07/27/24 07/27/24 History 10-325] Allergies Allergy/AdvReac Type Severity Reaction Status Date / Time latex Allergy Swelling Verified 07/27/24 10:31 atorvastatin [From Lipitor] AdvReac JOINT PAIN Verified 07/27/24 10:31 Physical Exam Vitals: Vital Signs Temp Pulse Resp BP Pulse Ox 07/27/24 07:49 97.6 F 75 16 117/66 98 07/27/24 06:57 73 18 108/69 95 07/27/24 05:45 97.9 F 76 16 118/68 94 L 07/27/24 04:35 76 16 118/75 96 07/27/24 03:38 81 16 117/75 96 07/27/24 02:45 80 16 125/74 94 L 07/27/24 01:45 97.9 F 110 H 20 146/80 95 Intake and Output 07/26/24 07/27/24 07/27/24 22:59 06:59 14:59 Intake Total 0.218 Balance 0.218 Intake: Intake, IV Titration 0.218 Amount Heparin Sod,Pork in 0.45% 0.218 NaCl 25,000 unit In 0.45 % NaCl 1 250ml.bag @ 18 UNITS/KG/HR 13.064 mls/hr IV .[id number] [facility] Rx#: [id number] Other: Weight 72.575 kg General Appearance the patient is calm and comfortable, no acute distress. Currently on 2 L of oxygen by nasal cannula. Head exam was generally normal. There was no scleral icterus or corneal arcus. Mucous membranes were moist. Neck was supple and without jugular venous distension, thyromegaly, or carotid bruits. Carotids were easily palpable bilaterally. There was no adenopathy. Lung sounds are diminished and the patient has diminished breath sound right lung base along with dullness to percussion. Thoracotomy scar over the left lateral chest area is clean. The patient also has an anterior thoracotomy scar. Cardiac exam revealed the PMI to be normally situated and sized. The rhythm was regular and no extrasystoles were noted during several minutes of auscultation. The first and second heart sounds were normal and physiologic splitting of the second heart sound was noted. There were no murmurs, rubs, clicks, or gallops. Abdominal exam revealed normal bowel sounds. The abdomen was soft, non-tender, and without masses, organomegaly, or appreciable enlargement of the abdominal aorta. Examination of the extremities revealed easily palpable radial, femoral and pedal pulses. There was no cyanosis, clubbing or edema. Examination of the skin revealed no evidence of significant rashes, suspicious appearing nevi or other concerning lesions. Neurologically, the patient is awake and alert and the patient does not have any focal neurological deficit. Cranial nerves are essentially intact. Results - Laboratory Findings CBC and BMP: 07/27/24 07:45 07/27/24 02:04 PT/INR, D-dimer PT 11.7 sec (10.0-12.5) 07/27/24 07:45 INR 1.1 (<1.2) 07/27/24 07:45 D-Dimer 2.65 mg/L FEU (<0.60) H 07/27/24 02:04 Abnormal lab findings: Abnormal Labs 07/27/24 07/27/24 07/27/24 02:04 02:04 02:04 RBC Hgb 11.8 L Hct 38.7 L MCHC 30.5 L RDW 16.8 H D-Dimer 2.65 H Chloride 111 H Carbon Dioxide 19 L Alkaline Phosphatase 131 H Total Protein 8.4 H 07/27/24 07:45 RBC 4.17 L Hgb 10.8 L Hct 35.9 L MCHC 30.0 L RDW 16.5 H D-Dimer Chloride Carbon Dioxide Alkaline Phosphatase Total Protein - Diagnostic Findings Chest x-ray: image reviewed Assessment and Plan Plan: Acute chest pain, negative troponins and no EKG abnormal findings. Cardiology on the case. He is known to have extensive coronary artery disease and has undergone bypass surgery x 2. Currently free of any chest pain. Recurrent large right-sided pleural effusion. Rule out CHF related versus liver disease at the patient's pleural effusion on previous evaluation was a transudate. Noted the patient had undergone a previous thoracentesis on 05/17/2024 with evacuation of 1.7 L of pleural fluid there was a transudate. No complications. Triple-vessel coronary artery disease, unstable angina with history of coronary artery disease/previous myocardial infarction/multiple stents/thrombectomy on Eliquis for anticoagulation/CABG 20 years ago, status post two-vessel redo off- pump CABG Ischemic cardiomyopathy/chronic systolic heart failure with reduced ejection fraction, EF 25-30%, repeat limited echo done yesterday demonstrates EF 20-25% History of hypertension Hyperlipidemia, treated with Zetia, patient has muscle pain with statins, cholesterol 121, LDL 52, triglycerides 180 Left internal carotid artery stenosis, 50-79% Chronic kidney disease, stage IIIb, baseline creatinine 1.6-1.7 Chronic anemia Chronic ongoing tobacco use Severe COPD on home oxygen 2 L/min, preoperative FEV1 43% of predicted Obstructive sleep apnea Chronic back pain with history of back surgery Medical debility Plan: I performed another thoracentesis on this patient and a total of 1.8 L of fluid was aspirated without any major complications. Continue bronchodilators with DuoNeb updrafts Titrate oxygen flow to maintain saturation above 90% and the patient is currently on 2 L Continue aspirin and Plavix Incentive spirometer Cardiology consultation Will continue to follow
--- NOTE | 2024-07-27 14:44 | P.PCN ---
Date of Procedure: 07/27/24 Preoperative Diagnosis: Pleural effusion, right Postoperative Diagnosis: Pleural effusion, right Procedure(s) Performed: Thoracentesis, right Anesthesia: local Surgeon: Katarina Wilson Estimated Blood Loss (ml): 0 Pathology: none sent Condition: stable Disposition: floor Operative Findings: A time out was performed and the chest x-ray was reviewed, the appropriate side was confirmed and marked. My hands were washed immediately prior to the procedure. I wore a surgical cap, mask with protective eyewear, sterile gown and sterile gloves throughout the procedure. The patient was prepped and draped in a sterile manner using chlorhexidine scrub after the appropriate level was percussed and confirmed by ultrasound. 1% lidocaine was used to anesthesize the skin, subcutaneous tissue, superior aspect of the rib periosteum and parietal pleura. A finder needle was then introduced over the superior aspect of the rib to locate the pleural fluid; 2colored fluid was aspirated at a depth of approximately 2 cm. A 10-blade scalpel was used to nanette the skin at the insertion site. The [id number] needle was then introduced through the skin incision into the pleural space using negative aspiration pressure and the red colometric indicator to confirm appropriate positioning of the needle. The thoracentesis catheter was then threaded without difficulty. 1800 ml of turbid colored fluid was removed without difficulty. The catheter was then removed. No immediate complications were noted during the procedure. A post-procedure chest x-ray is pending at the time of this note. The fluid will not be sent for studies. Estimated blood loss is 0cc
--- NOTE | 2024-07-27 16:30 | P.HPIM ---
History of Present Illness H&P Date: 07/27/24 Chief Complaint: Chest pain/shortness of breath 69-year-old male patient, history of coronary artery disease with multiple stenting, CABG in April 2024, ischemic cardiomyopathy with EF of 20 to 25%, hypertension, hyperlipidemia, left carotid stenosis and stage III kidney disease along with severe COPD and obstructive sleep apnea, presenting to ED with complaint of chest pain and shortness of breath. During his last admission, the patient underwent a right-sided thoracentesis and a total of 1.7 L of pleural fluid was aspirated from the right lung and the fluid was transudative fluid cytology was negative for malignancy. Blood work completed in ED reveals patient's troponins are negative. The patient has a procalcitonin level of 0.04. Electrolytes are showing a component of anion gap metabolic acidosis with a serum bicarb of 19 and a gap of 8 and a sodium level of 138. LFTs are essentially within normal limits. The white cell count is at 4 with a hemoglobin 7.8 and a platelet count of 153. --The chest x-ray shows cardiomegaly and right-sided pleural effusion. Following that, the patient underwent a CTA of the chest that showed no evidence of any pulmonary embolism and a moderate-sized right-sided pleural effusion was again noted along with compressive atelectasis of the right lung base and possibly some cirrhotic nature of the liver. Patient has been evaluated by pulmonary service in ED and performed a bedside thoracentesis on this patient and I removed approximately 1.8 L of pleural fluid from the right lung. Repeat chest x-ray that was done following the thoracentesis shows no evidence of any pneumothorax and there is marked improvement in aeration in the right lung base. Review of Systems REVIEW OF SYSTEMS: CONSTITUTIONAL: No fever, no malaise, no fatigue. HEENT: No recent visual problems or hearing problems. Denied any sore throat. CARDIOVASCULAR: No chest pain, orthopnea, PND, no palpitations, no syncope. PULMONARY: No shortness of breath, no cough, no hemoptysis. GASTROINTESTINAL: No diarrhea, no nausea, no vomiting, no abdominal pain. NEUROLOGICAL: No headaches, no weakness, no numbness. HEMATOLOGICAL: Denies any bleeding or petechiae. GENITOURINARY: Denies any burning micturition, frequency, or urgency. MUSCULOSKELETAL/RHEUMATOLOGICAL: Denies any joint pain, swelling, or any muscle pain. ENDOCRINE: Denies any polyuria or polydipsia. The rest of the 14-point review of systems is negative. Past Medical History Past Medical History: Coronary Artery Disease (CAD), Chest Pain / Angina, Heart Failure, COPD, GERD/Reflux, Hyperlipidemia, Hypertension, Myocardial Infarction (GA), Osteoarthritis (OA), Sleep Apnea/CPAP/BIPAP Additional Past Medical History / Comment(s): Chronic back pain, left leg weakness. No device use for Sleep Apnea, states uses O2 at night only. Recent SOB, edema lower extremitries. States unsure about having had a heart attack. Last Myocardial Infarction Date:: 11/11/22 History of Any Multi-Drug Resistant Organisms: None Reported Past Surgical History: Back Surgery, Cholecystectomy, Coronary Bypass/CABG, H eart Catheterization With Stent, Orthopedic Surgery Additional Past Surgical History / Comment(s): Back surgery X2 with cage, left tennis elbow surgery, heart stents X7, colonoscopy, lasik eye surgery bilaterally,. emergency CABG [facility] [place], thrombectomy. Past Anesthesia/Blood Transfusion Reactions: No Reported Reaction Additional Past Anesthesia/Blood Transfusion Reaction / Comment(s): Pt received blood during CABG without reaction. Date of Last Stent Placement:: Oct 2022 Past Psychological History: Anxiety, Depression, PTSD Smoking Status: Current every day smoker Past Alcohol Use History: Abuse Past Drug Use History: Cocaine - Past Family History Father Family Medical History: Coronary Artery Disease (CAD), Deep Vein Thrombosis (DVT), GERD/Reflux, Hyperlipidemia, Myocardial Infarction (GA) Additional Family Medical History / Comment(s): Father of a GA in his 80's. Mother Family Medical History: Coronary Artery Disease (CAD), Myocardial Infarction (GA) Additional Family Medical History / Comment(s): Mother of a GA. Brother(s) Family Medical History: Myocardial Infarction (GA) Additional Family Medical History / Comment(s): . Sister(s) Family Medical History: Cancer, Diabetes Mellitus Additional Family Medical History / Comment(s): Lung cancer. Other sister had Diabetes. Medications and Allergies Home Medications Medication Instructions Recorded Confirmed Type Apixaban [Eliquis] 2.5 mg PO BID #60 tab 11/18/22 07/27/24 Rx Ezetimibe [Zetia] 10 mg PO DAILY #90 tab 11/18/22 07/27/24 Rx Fluticasone Nasal [place] [Flonase 1 spray EA NOSTRIL BID PRN 01/27/23 07/27/24 History Nasal [place]] Clopidogrel [Plavix] 75 mg PO DAILY 08/21/23 07/27/24 History Cyclobenzaprine [Flexeril] 10 mg PO BID 08/21/23 07/27/24 History Sodium Bicarbonate Tab 650 mg PO TID #100 tab 01/25/24 07/27/24 Rx Ergocalciferol [Vitamin D2 (1250 1,250 mcg PO Q30D 05/10/24 07/27/24 History Mcg = 39035 Iu)] Ferrous Sulfate [Iron (65 MG 325 mg PO DAILY 05/10/24 07/27/24 History Elemental)] Gabapentin [Neurontin] 100 mg PO TID 05/10/24 07/27/24 History Atorvastatin [Lipitor] 40 mg PO DAILY tab 05/24/24 07/27/24 Rx Budesonide [Pulmicort] 1 mg INHALATION RT-BID ml 05/24/24 07/27/24 Rx Dapagliflozin Propanediol [Farxiga] 10 mg PO DAILY tab 05/24/24 07/27/24 Rx Formoterol Fumarate [Perforomist] 20 mcg INHALATION RT-BID ml 05/24/24 07/27/24 Rx Furosemide [Lasix] 40 mg PO DAILY #30 tablet 05/24/24 07/27/24 Rx Ipratropium-Albuterol Nebulize 3 ml INHALATION RT-Q2H PRN each 05/24/24 07/27/24 Rx [Duoneb 0.5 mg-3 mg/3 ml Soln] Ipratropium-Albuterol Nebulize 3 ml INHALATION RT-QID each 05/24/24 07/27/24 Rx [Duoneb 0.5 mg-3 mg/3 ml Soln] Metoprolol Tartrate [Lopressor] 12.5 mg PO BID tab 05/24/24 07/27/24 Rx Pantoprazole [Protonix] 40 mg PO AC-BRKFST tab 05/24/24 07/27/24 Rx Potassium Chloride ER [K-Dur 10] 10 meq PO DAILY #30 tab 05/24/24 07/27/24 Rx Spironolactone [Aldactone] 12.5 mg PO DAILY tab 05/24/24 07/27/24 Rx lisinopriL [Zestril] 2.5 mg PO DAILY@1200 tab 05/24/24 07/27/24 Rx ALPRAZolam [Xanax] 2 mg PO HS 07/27/24 07/27/24 History HYDROcodone/APAP 10-325MG [[place] 1 tab PO BID PRN 07/27/24 07/27/24 History 10-325] Allergies Allergy/AdvReac Type Severity Reaction Status Date / Time latex Allergy Swelling Verified 07/27/24 10:31 atorvastatin [From Lipitor] AdvReac JOINT PAIN Verified 07/27/24 10:31 Physical Exam Vitals: Vital Signs Temp Pulse Resp BP Pulse Ox 07/27/24 07:49 97.6 F 75 16 117/66 98 07/27/24 06:57 73 18 108/69 95 07/27/24 05:45 97.9 F 76 16 118/68 94 L 07/27/24 04:35 76 16 118/75 96 07/27/24 03:38 81 16 117/75 96 07/27/24 02:45 80 16 125/74 94 L 07/27/24 01:45 97.9 F 110 H 20 146/80 95 Intake and Output 07/26/24 07/27/24 07/27/24 22:59 06:59 14:59 Intake Total 0.218 Balance 0.218 Intake: Intake, IV Titration 0.218 Amount Heparin Sod,Pork in 0.45% 0.218 NaCl 25,000 unit In 0.45 % NaCl 1 250ml.bag @ 18 UNITS/KG/HR 13.064 mls/hr IV .Q19H9M [facility] Rx#: [id number] Other: Weight 72.575 kg General Appearance the patient is calm and comfortable, no acute distress. Currently on 2 L of oxygen by nasal cannula. Head exam was generally normal. There was no scleral icterus or corneal arcus. Mucous membranes were moist. Neck was supple and without jugular venous distension, thyromegaly, or carotid bruits. Carotids were easily palpable bilaterally. There was no adenopathy. Lung sounds are diminished and the patient has diminished breath sound right lung base along with dullness to percussion. Thoracotomy scar over the left lateral chest area is clean. The patient also has an anterior thoracotomy scar. Cardiac exam revealed the PMI to be normally situated and sized. The rhythm was regular and no extrasystoles were noted during several minutes of auscultation. The first and second heart sounds were normal and physiologic splitting of the second heart sound was noted. There were no murmurs, rubs, clicks, or gallops. Abdominal exam revealed normal bowel sounds. The abdomen was soft, non-tender, and without masses, organomegaly, or appreciable enlargement of the abdominal aorta. Examination of the extremities revealed easily palpable radial, femoral and pedal pulses. There was no cyanosis, clubbing or edema. Examination of the skin revealed no evidence of significant rashes, suspicious a ppearing nevi or other concerning lesions. Neurologically, the patient is awake and alert and the patient does not have any focal neurological deficit. Cranial nerves are essentially intact. Results CBC & Chem 7: 07/27/24 07:45 07/27/24 02:04 Labs: Abnormal Lab Results - Last 24 Hours (Table) 07/27/24 07/27/24 07/27/24 Range/Units 02:04 02:04 02:04 RBC (4.30-5.90) m/uL Hgb 11.8 L (13.0-17.5) gm/dL Hct 38.7 L (39.0-53.0) % MCHC 30.5 L (31.0-37.0) g/dL RDW 16.8 H (11.5-15.5) % D-Dimer 2.65 H (<0.60) mg/L FEU Chloride 111 H (98-107) mmol/L Carbon Dioxide 19 L (22-30) mmol/L Alkaline Phosphatase 131 H (38-126) U/L Total Protein 8.4 H (6.3-8.2) g/dL 07/27/24 Range/Units 07:45 RBC 4.17 L (4.30-5.90) m/uL Hgb 10.8 L (13.0-17.5) gm/dL Hct 35.9 L (39.0-53.0) % MCHC 30.0 L (31.0-37.0) g/dL RDW 16.5 H (11.5-15.5) % D-Dimer (<0.60) mg/L FEU Chloride (98-107) mmol/L Carbon Dioxide (22-30) mmol/L Alkaline Phosphatase (38-126) U/L Total Protein (6.3-8.2) g/dL Assessment and Plan Assessment: 1. Acute chest pain; ACS rule out; patient has extensive history of coronary artery disease with history of CABG x 2 -- negative troponins and no EKG abnormal findings. -Cardiology on board; prescient recommendations 2. Recurrent large right-sided pleural effusion. Rule out CHF related versus liver disease at the patient's pleural effusion on previous evaluation was a transudate. -- the patient had undergone a previous thoracentesis on 05/17/2024 with evacuation of 1.7 L of pleural fluid there was a transudate. No complications. -Patient has been evaluated by pulmonary service and underwent bedside thoracentesis 3. Triple-vessel coronary artery disease, unstable angina with history of coronary artery disease/previous myocardial infarction/multiple stents/thrombectomy on Eliquis for anticoagulation/CABG 20 years ago, status post two-vessel redo off-pump CABG --Ischemic cardiomyopathy/chronic systolic heart failure with reduced ejection fraction, EF 25-30%, repeat limited echo done yesterday demonstrates EF 20-25% 4. History of hypertension 5. Hyperlipidemia, treated with Zetia, patient has muscle pain with statins, cholesterol 121, LDL 52, triglycerides 180 6. Left internal carotid artery stenosis, 50-79%; patient follows up with vascular surgery 7. Chronic kidney disease, stage IIIb, baseline creatinine 1.6-1.7; we will monitor strict HANS's, daily weights, renal function electrolytes; avoid nephrotoxins and hypotension 8. Chronic anemia; monitor CBC closely 9. Severe COPD on home oxygen 2 L/min, preoperative FEV1 43% of predicted; in exacerbation; continue with home inhaler therapy 10. Obstructive sleep apnea DVT prophylaxis; CDs/subcu heparin CODE STATUS; full code
[2024-07-27] MEDS: SODIUM BICARBONATE TAB 650 MG TAB PO SCH (16:53)
[2024-07-27] MEDS: GABAPENTIN 100 MG CAP PO SCH (16:53)
[2024-07-27] MEDS: CYCLOBENZAPRINE 10 MG TAB PO SCH (16:53)
[2024-07-27] MEDS: NICOTINE 21MG/24HR PATCH TRANSDERM STA (16:53)
[2024-07-27] MEDS: FORMOTEROL FUMARATE 20 MCG/2 ML NEBU INHALATION SCH (20:11)
[2024-07-27] MEDS: BUDESONIDE 1 MG/2 ML NEBU INHALATION SCH (20:11)
[2024-07-27] MEDS: METOPROLOL TARTRATE 12.5 MG TAB PO SCH (21:53)
[2024-07-27] MEDS: ALPRAZolam 1 MG TAB PO SCH (21:54)
[2024-07-28 07:37] LABS: Anisocytosis Slight; Basophils % (A) 1 %; Eosinophils # (A) 0.1 k/uL (0-0.7); Eosinophils % (A) 2 %; HCT 38.8 % (39.0-53.0); HGB 11.5 gm/dL (13.0-17.5); Hypochromasia Marked; Lymphocytes # (A) 1.2 k/uL (1.0-4.8); Lymphocytes % (A) 25 %; MCH 25.3 pg (25.0-35.0); MCHC 29.6 g/dL (31.0-37.0); MCV 85.5 fL (80.0-100.0); Monocytes # (A) 0.4 k/uL (0-1.0); Monocytes % (A) 9 %; Neutrophils % (A) 61 %; Platelet Count 203 k/uL (150-450); RBC 4.55 m/uL (4.30-5.90); RDW 16.6 % (11.5-15.5)
[2024-07-28 07:49] LABS: African American GFR (CKD) >90 (>60 ml/min/1.73 sqM); Anion Gap 9 mmol/L; Blood Urea Nitrogen 12 mg/dL (9-20); Calcium 9.3 mg/dL (8.4-10.2); Carbon Dioxide 25 mmol/L (22-30); Chloride 104 mmol/L (98-107); Glucose 93 mg/dL (74-99); Non-African American GFR(CKD) 85 (>60 ml/min/1.73 sqM); Potassium 4.5 mmol/L (3.5-5.1); Sodium 138 mmol/L (137-145)
[2024-07-28] MEDS: ATORVASTATIN 40 MG TAB PO SCH (08:34)
[2024-07-28] MEDS: POTASSIUM CHLORIDE ER 10 MEQ TAB.ER.PRT PO SCH (08:34)
[2024-07-28] MEDS: ASPIRIN 81 MG PO SCH (08:34)
[2024-07-28] MEDS: FUROSEMIDE 40 MG TAB PO SCH (08:35)
[2024-07-28] MEDS: SPIRONOLACTONE 25 MG TAB PO SCH (08:35)
[2024-07-28] MEDS ORDERED: ASPIRIN 325 MG TAB PO SCH (09:00)
--- NOTE | 2024-07-28 12:11 | P.PN ---
Subjective Progress Note Date: 07/28/24 This is a 69-year-old male with past medical history significant for CAD status post CABG and subsequently redo CABG as well as severe cardiomyopathy with EF between 25 to 30%, valvular heart disease, hypertension, dyslipidemia, chronic kidney disease, and history of pleural effusions. He also states he has a history of paroxysmal A-fib. Patient follows in the office with Dr. Wiggins. We have been asked to see the patient in consultation for chest pain. Patient was examined at the bedside in the emergency room. Patient came to the hospital because he has been having this chest pain since yesterday which he has rated an 8 out of 10. He states that he is also short of breath and the pain worsens with deep breathing. he denies leg swelling, dizziness, cough, fever. Patient states he is still currently smoking although he has cut back. 07/28/2024 The patient underwent thoracentesis yesterday by Dr. Green with removal of 1800 mL of turbid colored fluid removed. Overall he is feeling quite a bit better. His breathing has improved. He continues to have occasional chest discomfort that he describes as a lightening bolt through his chest, very brief and sharp but better. Vital signs are stable. Eliquis has been on hold. He is maintaining sinus mechanism. Objective - Vital Signs Vital signs: Vital Signs Temp 98.2 F 07/28/24 07:35 Pulse 78 07/28/24 08:20 Resp 16 07/28/24 07:35 BP 108/65 07/28/24 07:35 Pulse Ox 98 07/28/24 08:07 FiO2 Intake & Output 07/27/24 07/28/24 07/28/24 18:59 06:59 18:59 Intake Total 0.218 780 Output Total 1800 Balance -2419.782 780 Weight 86.8 kg Intake: Intake, IV Titration 0.218 Amount Heparin Sod,Pork in 0.45% 0.218 NaCl 25,000 unit In 0.45 % NaCl 1 250ml.bag @ 18 UNITS/KG/HR 13.064 mls/hr IV .Q19H9M [facility] Rx#: [id number] Oral 780 Output: Drainage 1800 Right Posterior Chest 1800 - Exam GENERAL: Well-developed in no acute distress. HEENT: Head is normocephalic. Pupils are equal, round. Sclerae anicteric. Mucous membranes of the mouth are moist. Neck supple. No JVD or thyromegaly LUNGS: Respirations even and unlabored. Diminished breath sounds bilaterally. Crackles noted to right lower lobe. HEART: Regular rate and rhythm. S1 and S2 heard. Soft systolic murmur ABDOMEN: Soft. Nontender to palpation. EXTREMITIES: Normal range of motion. No clubbing or cyanosis. Peripheral p ulses intact. No notable lower extremity edema. NEUROLOGIC: Awake and alert. Oriented x 3. - Labs CBC & Chem 7: 07/28/24 06:18 07/28/24 06:18 Labs: Abnormal Lab Results - Last 24 Hours (Table) 07/28/24 Range/Units 06:18 Hgb 11.5 L (13.0-17.5) gm/dL Hct 38.8 L (39.0-53.0) % MCHC 29.6 L (31.0-37.0) g/dL RDW 16.6 H (11.5-15.5) % Assessment and Plan Assessment: Chest pain, non-cardiogenic in nature Right pleural effusion, status post removal of 1800 mL History of paroxysmal A-fib CAD status post CABG and redo CABG Severe ischemic cardiomyopathy with EF 25% Hypertension Dyslipidemia Chronic kidney disease Plan: From cardiology's perspective no evidence of acute coronary syndrome. Medications were reviewed and we will continue the same. Continue aspirin and Plavix. No need to resume Eliquis at this time. We will continue to follow the patient and provide further recommendations accordingly. GROUNDS PERSON note has been reviewed, I agree with a documented findings and plan of care. Patient was seen and examined.
--- NOTE | 2024-07-28 13:03 | P.PN ---
Subjective Progress Note Date: 07/28/24 69-year-old male patient, history of coronary artery disease with multiple stenting, CABG in April 2024, ischemic cardiomyopathy with EF of 20 to 25%, hypertension, hyperlipidemia, left carotid stenosis and stage III kidney disease along with severe COPD and obstructive sleep apnea, presenting to ED with c omplaint of chest pain and shortness of breath. During his last admission, the patient underwent a right-sided thoracentesis and a total of 1.7 L of pleural fluid was aspirated from the right lung and the fluid was transudative fluid cytology was negative for malignancy. Blood work completed in ED reveals patient's troponins are negative. The patient has a procalcitonin level of 0.04. Electrolytes are showing a component of anion gap metabolic acidosis with a serum bicarb of 19 and a gap of 8 and a sodium level of 138. LFTs are essentially within normal limits. The white cell count is at 4 with a hemoglobin 7.8 and a platelet count of 153. --The chest x-ray shows cardiomegaly and right-sided pleural effusion. Following that, the patient underwent a CTA of the chest that showed no evidence of any pulmonary embolism and a moderate-sized right-sided pleural effusion was again noted along with compressive atelectasis of the right lung base and possibly some cirrhotic nature of the liver. Patient has been evaluated by pulmonary service in ED and performed a bedside thoracentesis on this patient and I removed approximately 1.8 L of pleural fluid from the right lung. Repeat chest x-ray that was done following the thoracentesis shows no evidence of any pneumothorax and there is marked improvement in aeration in the right lung base. --Patient has been evaluated by cardiology; no further cardiac workup is recommended; heparin has been discontinued; cardiology recommending to discontinue anticoagulation upon discharge -Remains on IV antibiotics for possible pneumonia; status post thoracentesis Objective - Vital Signs Vital signs: Vital Signs Temp 98.2 F 07/28/24 07:35 Pulse 80 07/28/24 08:07 Resp 16 07/28/24 07:35 BP 108/65 07/28/24 07:35 Pulse Ox 98 07/28/24 08:07 FiO2 Intake & Output 07/27/24 07/28/24 07/28/24 18:59 06:59 18:59 Intake Total 0.218 780 Output Total 1800 Balance -1799.782 780 Weight 86.8 kg Intake: Intake, IV Titration 0.218 Amount Heparin Sod,Pork in 0.45% 0.218 NaCl 25,000 unit In 0.45 % NaCl 1 250ml.bag @ 18 UNITS/KG/HR 13.064 mls/hr IV .Q19H9M [facility] Rx#: [id number] Oral 780 Output: Drainage 1800 Right Posterior Chest 1800 - Exam General Appearance the patient is calm and comfortable, no acute distress. Currently on 2 L of oxygen by nasal cannula. Head exam was generally normal. There was no scleral icterus or corneal arcus. Mucous membranes were moist. Neck was supple and without jugular venous distension, thyromegaly, or carotid bruits. Carotids were easily palpable bilaterally. There was no adenopathy. Lung sounds are diminished and the patient has diminished breath sound right lung base along with dullness to percussion. Thoracotomy scar over the left lateral chest area is clean. The patient also has an anterior thoracotomy scar. Cardiac exam revealed the PMI to be normally situated and sized. The rhythm was regular and no extrasystoles were noted during several minutes of auscultation. The first and second heart sounds were normal and physiologic splitting of the second heart sound was noted. There were no murmurs, rubs, clicks, or gallops. Abdominal exam revealed normal bowel sounds. The abdomen was soft, non-tender, and without masses, organomegaly, or appreciable enlargement of the abdominal aorta. Examination of the extremities revealed easily palpable radial, femoral and pedal pulses. There was no cyanosis, clubbing or edema. Examination of the skin revealed no evidence of significant rashes, suspicious appearing nevi or other concerning lesions. Neurologically, the patient is awake and alert and the patient does not have any focal neurological deficit. Cranial nerves are essentially intact. - Labs CBC & Chem 7: 07/28/24 06:18 07/28/24 06:18 Labs: Abnormal Lab Results - Last 24 Hours (Table) 07/28/24 Range/Units 06:18 Hgb 11.5 L (13.0-17.5) gm/dL Hct 38.8 L (39.0-53.0) % MCHC 29.6 L (31.0-37.0) g/dL RDW 16.6 H (11.5-15.5) % Assessment and Plan Assessment: 1. Acute chest pain; ACS rule out; patient has extensive history of coronary artery disease with history of CABG x 2 -- negative troponins and no EKG abnormal findings. -Cardiology on board; prescient recommendations 2. Recurrent large right-sided pleural effusion. Rule out CHF related versus liver disease at the patient's pleural effusion on previous evaluation was a transudate. -- the patient had undergone a previous thoracentesis on 05/17/2024 with evacuation of 1.7 L of pleural fluid there was a transudate. No complications. -Patient has been evaluated by pulmonary service and underwent bedside thoracentesis 3. Triple-vessel coronary artery disease, unstable angina with history of coronary artery disease/previous myocardial infarction/multiple stents/thrombectomy on Eliquis for anticoagulation/CABG 20 years ago, status post two-vessel redo off-pump CABG --Ischemic cardiomyopathy/chronic systolic heart failure with reduced ejection fraction, EF 25-30%, repeat limited echo done yesterday demonstrates EF 20-25% 4. History of hypertension 5. Hyperlipidemia, treated with Zetia, patient has muscle pain with statins, cholesterol 121, LDL 52, triglycerides 180 6. Left internal carotid artery stenosis, 50-79%; patient follows up with vascular surgery 7. Chronic kidney disease, stage IIIb, baseline creatinine 1.6-1.7; we will monitor strict HANS's, daily weights, renal function electrolytes; avoid nephrotoxins and hypotension 8. Chronic anemia; monitor CBC closely 9. Severe COPD on home oxygen 2 L/min, preoperative FEV1 43% of predicted; in exacerbation; continue with home inhaler therapy 10. Obstructive sleep apnea DVT prophylaxis; CDs/subcu heparin CODE STATUS; full code
--- NOTE | 2024-07-28 14:48 | P.PN ---
Subjective Progress Note Date: 07/28/24 This is a 69-year-old male patient was coming into the emergency department because of chest pain and shortness of breath. The patient is known to have coronary artery disease and the patient has undergone previous coronary intervention multiple stenting for previous myocardial infarction's and the ashley ent has undergone previous coronary artery bypass surgery around 20 years ago and more recently, in April 2024, the patient underwent two-vessel redo off-pump bypass surgery. He is known to have ischemic cardiomyopathy with an ejection fraction of around 20 to 25%. He is also known to have hypertension hyperlipidemia and left carotid artery stenosis in the order of 50 to 79%. He suffers from chronic stage IIIb kidney disease. He is also known to have severe COPD with an FEV1 of 43% predicted and obstructive sleep apnea. During his last admission, the patient underwent a right-sided thoracentesis and a total of 1.7 L of pleural fluid was aspirated from the right lung and the fluid was tra nsudative fluid cytology was negative for malignancy. During this current admission, the patient's troponins are negative. The patient has a procalcitonin level of 0.04. Electrolytes are showing a component of anion gap metabolic acidosis with a serum bicarb of 19 and a gap of 8 and a sodium level of 138. LFTs are essentially within normal limits. The white cell count is at 4 with a hemoglobin 7.8 and a platelet count of 153. The chest x-ray shows cardiomegaly and right-sided pleural effusion. Following that, the patient underwent a CTA of the chest that showed no evidence of any pulmonary embolism and a moderate-sized right-sided pleural effusion was again noted along with compressive atelectasis of the right lung base and possibly some cirrhotic nature of the liver. I performed a bedside thoracentesis on this patient and I removed approximately 1.8 L of pleural fluid from the right lung. Repeat chest x-ray that was done following the thoracentesis shows no evidence of any pn eumothorax and there is marked improvement in aeration in the right lung base. Meanwhile, CAT scan of the brain was also done that showed no acute process. The patient is currently on 2 L of oxygen by nasal cannula with a pulse ox of 99 to 100%. On 07/28/2024, the patient is calm and comfortable. Denies having any complaints. The patient underwent another thoracentesis of the right lung yesterday and since then his respiratory status is improved and the patient is currently on room air oxygen. Denies having any chest pain. The white cell count is at 5 hemoglobin 11 and a platelet count of 203 with a BUN of 12 and a creatinine of 0.9 and a sodium levels at 138. Troponins were all negative. Objective - Vital Signs Vital signs: Vital Signs Temp 98.2 F 07/28/24 07:35 Pulse 78 07/28/24 08:20 Resp 16 07/28/24 07:35 BP 108/65 07/28/24 07:35 Pulse Ox 98 07/28/24 08:07 FiO2 Intake & Output 07/27/24 07/28/24 07/28/24 18:59 06:59 18:59 Intake Total 0.218 780 240 Output Total 1800 Balance -1799.782 780 240 Weight 86.8 kg Intake: Intake, IV Titration 0.218 Amount Heparin Sod,Pork in 0.45% 0.218 NaCl 25,000 unit In 0.45 % NaCl 1 250ml.bag @ 18 UNITS/KG/HR 13.064 mls/hr IV .[id number] [facility] Rx#: [id number] Oral 780 240 Output: Drainage 1800 Right Posterior Chest 1800 - Exam General Appearance the patient is calm and comfortable, no acute distress. Currently on 2 L of oxygen by nasal cannula. Head exam was generally normal. There was no scleral icterus or corneal arcus. Mucous membranes were moist. Neck was supple and without jugular venous distension, thyromegaly, or carotid bruits. Carotids were easily palpable bilaterally. There was no adenopathy. Lung sounds are diminished and the patient has diminished breath sound right lung base along with dullness to percussion. Thoracotomy scar over the left lateral chest area is clean. The patient also has an anterior thoracotomy scar. Cardiac exam revealed the PMI to be normally situated and sized. The rhythm was regular and no extrasystoles were noted during several minutes of auscultation. The first and second heart sounds were normal and physiologic splitting of the second heart sound was noted. There were no murmurs, rubs, clicks, or gallops. Abdominal exam revealed normal bowel sounds. The abdomen was soft, non-tender, and without masses, organomegaly, or appreciable enlargement of the abdominal aorta. Examination of the extremities revealed easily palpable radial, femoral and pedal pulses. There was no cyanosis, clubbing or edema. Examination of the skin revealed no evidence of significant rashes, suspicious appearing nevi or other concerning lesions. Neurologically, the patient is awake and alert and the patient does not have any focal neurological deficit. Cranial nerves are essentially intact. - Labs CBC & Chem 7: 07/28/24 06:18 07/28/24 06:18 Labs: Abnormal Lab Results - Last 24 Hours (Table) 07/28/24 Range/Units 06:18 Hgb 11.5 L (13.0-17.5) gm/dL Hct 38.8 L (39.0-53.0) % MCHC 29.6 L (31.0-37.0) g/dL RDW 16.6 H (11.5-15.5) % Assessment and Plan Plan: Acute chest pain, negative troponins and no EKG abnormal findings. Cardiology on the case. He is known to have extensive coronary artery disease and has undergone bypass surgery x 2. Currently free of any chest pain. Recurrent large right-sided pleural effusion. Rule out CHF related versus liver disease at the patient's pleural effusion on previous evaluation was a transudate. Noted the patient had undergone a previous thoracentesis on 05/17/2024 with evacuation of 1.7 L of pleural fluid there was a transudate. No complications. Triple-vessel coronary artery disease, unstable angina with history of coronary artery disease/previous myocardial infarction/multiple stents/thrombectomy on [facility] for anticoagulation/CABG 20 years ago, status post two-vessel redo off- pump CABG Ischemic cardiomyopathy/chronic systolic heart failure with reduced ejection fraction, EF 25-30%, repeat limited echo done yesterday demonstrates EF 20-25% History of hypertension Hyperlipidemia, treated with Zetia, patient has muscle pain with statins, cholesterol 121, LDL 52, triglycerides 180 Left internal carotid artery stenosis, 50-79% Chronic kidney disease, stage IIIb, baseline creatinine 1.6-1.7 Chronic anemia Chronic ongoing tobacco use Severe COPD on home oxygen 2 L/min, preoperative FEV1 43% of predicted Obstructive sleep apnea Chronic back pain with history of back surgery Medical debility Plan: Clinically improved following his thoracentesis and the patient is currently on room air oxygen. I performed another thoracentesis on this patient and a total of 1.8 L of fluid was aspirated without any major complications. Continue bronchodilators with DuoNeb updrafts Continue aspirin and Plavix Incentive spirometer Cardiology consultation is appreciated Will continue to follow
[2024-07-28 15:52] LABS: Chol/HDL Ratio 4.68 Ratio; LDL Cholesterol,Calculated 87.7 mg/dL (0.0-131.0)
[2024-07-29 08:58] LABS: Basophils # (A) 0.04 X 10*3/uL (0.00-0.10); Basophils % (A) 0.6 %; Eosinophils # (A) 0.11 X 10*3/uL (0.04-0.35); Eosinophils % (A) 1.8 %; HCT 35.7 % (39.6-50.0); HGB 10.6 g/dL (13.0-17.0); Lymphocytes # (A) 1.03 X 10*3/uL (0.90-5.00); Lymphocytes % (A) 16.6 %; MCH 25.5 pg (27.0-32.0); MCHC 29.7 g/dL (32.0-37.0); Mean Platelet Volume 11.8 FL (9.5-12.2); Monocytes # (A) 0.46 X 10*3/uL (0.20-1.00); Monocytes % (A) 7.4 %; NRBC Per 100 WBC 0 X 10*3/uL (0.00-0.01); Neutrophils # (A) 4.53 X 10*3/uL (1.80-7.70); Neutrophils % (A) 73.1 %; Platelet Count 193 X 10*3/uL (140-440); RBC 4.15 X 10*6/uL (4.40-5.60); RDW 17.1 % (11.5-14.5)
[2024-07-29 09:06] LABS: Calcium 8.9 mg/dL (8.7-10.3); Carbon Dioxide 21.7 mmol/L (21.6-31.8); Chloride 98 mmol/L (96-109); Glucose 117 mg/dL (70-110); Potassium 4.1 mmol/L (3.5-5.5); Sodium 134 mmol/L (135-145)
--- NOTE | 2024-07-29 10:00 | P.PN ---
Subjective Progress Note Date: 07/29/24 This is a 69-year-old male with past medical history significant for CAD status post CABG and subsequently redo CABG as well as severe cardiomyopathy with EF between 25 to 30%, valvular heart disease, hypertension, dyslipidemia, chronic kidney disease, and history of pleural effusions. He also states he has a history of paroxysmal A-fib. Patient follows in the office with Dr. Wiggins. We have been asked to see the patient in consultation for chest pain. Patient was examined at the bedside in the emergency room. Patient came to the hospital because he has been having this chest pain since yesterday which he has rated an 8 out of 10. He states that he is also short of breath and the pain worsens with deep breathing. he denies leg swelling, dizziness, cough, fever. Patient states he is still currently smoking although he has cut back. 07/28/2024 The patient underwent thoracentesis yesterday by Dr. Green with removal of 1800 mL of turbid colored fluid removed. Overall he is feeling quite a bit better. His breathing has improved. He continues to have occasional chest discomfort that he describes as a lightening bolt through his chest, very brief and sharp but better. Vital signs are stable. Eliquis has been on hold. He is maintaining sinus mechanism. 07/28/2024 Patient's respiratory status has been improved since he underwent thoracentesis. He states he had a previous effusion in April as well and does not know the underlying cause for these. He denies having any chest pain no chest pain with deep breathing. No significant shortness of breath at this time. No fevers no chills. Blood pressure 104/66, heart rate in the 80s, pulse ox 92% on room air. Repeat blood work reveals WBC 6.2, hemoglobin 10.6. Potassium 4.1, creatinine 1. GENERAL: Well-developed in no acute distress. HEENT: Head is normocephalic. Pupils are equal, round. Sclerae anicteric. Mucous membranes of the mouth are moist. Neck supple. No JVD or thyromegaly LUNGS: Respirations even and unlabored. Diminished breath sounds. HEART: Regular rate and rhythm. S1 and S2 heard. Soft systolic murmur ABDOMEN: Soft. Nontender to palpation. EXTREMITIES: Normal range of motion. No clubbing or cyanosis. Peripheral pulses intact. No notable lower extremity edema. NEUROLOGIC: Awake and alert. Oriented x 3. Assessment: Chest pain, non-cardiogenic in nature Right pleural effusion, status post removal of 1800 mL History of paroxysmal A-fib CAD status post CABG and redo CABG Severe ischemic cardiomyopathy with EF 25% Hypertension Dyslipidemia Chronic kidney disease Plan: From cardiology's perspective no evidence of acute coronary syndrome. Continue patient on current cardiac medications: Aspirin 81 mg daily, atorvas tatin 40 mg daily, Plavix 75 mg daily, Farxiga 10 mg daily, Lasix 40 mg daily oral, Lopressor 12.5 mg twice daily, potassium chloride 10 mill equivalents daily No need to resume Eliquis at this time. We will continue to follow the patient and provide further recommendations accordingly. Nurse practitioner note has been reviewed, I agree with documented findings and plan of care. Patient was seen and examined. Objective - Vital Signs Vital signs: Vital Signs Temp 98.9 F 07/29/24 07:33 Pulse 89 07/29/24 08:17 Resp 19 07/29/24 07:33 BP 104/66 07/29/24 07:33 Pulse Ox 91 L 07/29/24 08:19 FiO2 Intake & Output 07/28/24 07/29/24 07/29/24 18:59 06:59 18:59 Intake Total 2720 710 Output Total 2 700 Balance 2718 10 Intake: Oral 2720 710 Output: Urine 700 Stool 2 Other: # Voids 5 - Labs CBC & Chem 7: 07/29/24 05:20 07/29/24 05:20 Labs: Abnormal Lab Results - Last 24 Hours (Table) 07/28/24 Range/Units 06:18 Triglycerides 167.00 H (0.00-149.00) mg/dL HDL Cholesterol 32.90 L (40.00-60.00) mg/dL
--- NOTE | 2024-07-29 11:24 | P.PN ---
Subjective Progress Note Date: 07/29/24 This is a 69-year-old male patient was coming into the emergency department because of chest pain and shortness of breath. The patient is known to have coronary artery disease and the patient has undergone previous coronary intervention multiple stenting for previous myocardial infarction's and the patient has undergone previous coronary artery bypass surgery around 20 years ago and more recently, in April 2024, the patient underwent two-vessel redo off- pump bypass surgery. He is known to have ischemic cardiomyopathy with an ejection fraction of around 20 to 25%. He is also known to have hypertension hyperlipidemia and left carotid artery stenosis in the order of 50 to 79%. He suffers from chronic stage IIIb kidney disease. He is also known to have severe COPD with an FEV1 of 43% predicted and obstructive sleep apnea. During his last admission, the patient underwent a right-sided thoracentesis and a total of 1.7 L of pleural fluid was aspirated from the right lung and the fluid was maxwell sudative fluid cytology was negative for malignancy. During this current admission, the patient's troponins are negative. The patient has a procalcitonin level of 0.04. Electrolytes are showing a component of anion gap metabolic acidosis with a serum bicarb of 19 and a gap of 8 and a sodium level of 138. LFTs are essentially within normal limits. The white cell count is at 4 with a hemoglobin 7.8 and a platelet count of 153. The chest x-ray shows cardiomegaly and right-sided pleural effusion. Following that, the patient underwent a CTA of the chest that showed no evidence of any pulmonary embolism and a moderate-sized right-sided pleural effusion was again noted along with compressive atelectasis of the right lung base and possibly some cirrhotic nature of the liver. I performed a bedside thoracentesis on this patient and I removed approximately 1.8 L of pleural fluid from the right lung. Repeat chest x-ray that was done following the thoracentesis shows no evidence of any pne umothorax and there is marked improvement in aeration in the right lung base. Meanwhile, CAT scan of the brain was also done that showed no acute process. The patient is currently on 2 L of oxygen by nasal cannula with a pulse ox of 99 to 100%. On 07/28/2024, the patient is calm and comfortable. Denies having any complaints. The patient underwent another thoracentesis of the right lung yesterday and since then his respiratory status is improved and the patient is currently on room air oxygen. Denies having any chest pain. The white cell count is at 5 hemoglobin 11 and a platelet count of 203 with a BUN of 12 and a creatinine of 0.9 and a sodium levels at 138. Troponins were all negative. The patient is seen today July 29, 2024 in follow-up on the regular medical floor. He is currently sitting up at the bedside. Awake and alert in no acute distress. Denies any worsening shortness of breath, cough or congestion. He is maintaining O2 saturations in the 90s on room air. He is breathing easier following his thoracentesis on July 27, 2024 with 1.8 L of fluid removed. White count 6.2. Hemoglobin 10.6. Platelets 193. Sodium 134. Potassium 4.1. Bicarb 22. BUN 12. Creatinine 1.0. Glucose 117. He is continued on DuoNeb and elations, Pulmicort and Perforomist inhalations, oral diuretics. Objective - Vital Signs Vital signs: Vital Signs Temp 98.9 F 07/29/24 07:33 Pulse 88 07/29/24 08:39 Resp 19 07/29/24 08:00 BP 104/66 07/29/24 07:33 Pulse Ox 91 L 07/29/24 08:19 FiO2 Intake & Output 07/28/24 07/29/24 07/29/24 18:59 06:59 18:59 Intake Total 2720 710 Output Total 2 700 2 Balance 2718 10 -2 Intake: Oral 2720 710 Output: Urine 700 Stool 2 2 Other: # Voids 5 - Exam GENERAL EXAM: Alert, active, comfortable in no apparent distress. HEAD: Normocephalic. EYES: Normal reaction of pupils, equal size. NOSE: Clear with pink turbinates. THROAT: No erythema or exudates. NECK: No masses, no JVD. CHEST: No chest wall deformity. Thoracotomy scar over the anterior chest. Thoracotomy scar over the left lateral chest. LUNGS: Equal air entry with diminished breath sounds in the right lung base. CVS: S1 and S2 normal with no audible murmur, regular rhythm. ABDOMEN: No hepatosplenomegaly, normal bowel sounds, no guarding or rigidity. SPINE: No scoliosis or deformity SKIN: No rashes CENTRAL NERVOUS SYSTEM: No focal deficits, tone is normal in all 4 extremities. EXTREMITIES: There is no peripheral edema. No clubbing, no cyanosis. Peripheral pulses are intact. - Labs CBC & Chem 7: 07/29/24 05:20 07/29/24 05:20 Labs: Abnormal Lab Results - Last 24 Hours (Table) 07/28/24 07/29/24 07/29/24 Range/Units 06:18 05:20 05:20 RBC 4.15 L (4.40-5.60) X 10*6/uL Hgb 10.6 L (13.0-17.0) g/dL Hct 35.7 L (39.6-50.0) % MCH 25.5 L (27.0-32.0) pg MCHC 29.7 L (32.0-37.0) g/dL RDW 17.1 H (11.5-14.5) % Sodium 134 L (135-145) mmol/L Anion Gap 14.30 H (4.00-12.00) mmol/L Glucose 117 H (70-110) mg/dL Triglycerides 167.00 H (0.00-149.00) mg/dL HDL Cholesterol 32.90 L (40.00-60.00) mg/dL Assessment and Plan Assessment: Acute chest pain, negative troponins and no EKG abnormal findings. Cardiology on the case. He is known to have extensive coronary artery disease and has undergone bypass surgery x 2. Currently free of any chest pain. Recurrent large right-sided pleural effusion. Status post thoracentesis with 1.8 L of fluid removed on 07/27/2024. Rule out CHF related versus liver disease at the patient's pleural effusion on previous evaluation was a transudate. Noted the patient had undergone a previous thoracentesis on 05/17/2024 with evacuation of 1.7 L of pleural fluid there was a transudate cytology negative for malignancy. Triple-vessel coronary artery disease, unstable angina with history of coronary artery disease/previous myocardial infarction/multiple stents/thrombectomy on Eliquis for anticoagulation/CABG 20 years ago, status post two-vessel redo off- pump CABG Ischemic cardiomyopathy/chronic systolic heart failure with reduced ejection fraction, EF 25-30%, repeat limited echo done yesterday demonstrates EF 20-25% History of hypertension Hyperlipidemia, treated with Zetia, patient has muscle pain with statins, cholesterol 121, LDL 52, triglycerides 180 Left internal carotid artery stenosis, 50-79% Chronic kidney disease, stage IIIb, baseline creatinine 1.6-1.7 Chronic anemia Chronic ongoing tobacco use Severe COPD on home oxygen 2 L/min, preoperative FEV1 43% of predicted Obstructive sleep apnea Chronic back pain with history of back surgery Medical debility Plan: The patient was seen and evaluated Labs and medications reviewed Stable and on room air Home once cleared by cardiology Follow-up in our office in 1 week I have personally seen and examined the patient, performed the documentation and the assessment and plan as written. Number of minutes spent on the visit: 10.
--- NOTE | 2024-07-29 12:09 | CDI ---
Documentation Clarification Form Date: 07/29/2024 From: Asha Rivas RN CCDS Phone: [phone] Admit Date: 07/27/2024 06:13:00 AM Patient Name: Israel Simmons Visit Number: [id number] Discharge Date: ATTENTION: The Clinical Documentation Specialists (CDI) and [facility] Coding Staff appreciate your assistance in clarifying documentation. Please respond to the clarification below the line at the bottom and electronically sign. The CDI & [facility] Coding staff will review the response and follow-up if needed. Please note: Queries are made part of the Legal Health Record. If you have any questions, please contact the author of this message via ITS. Dr. Katarina Wilson MD: Your patient has severe COPD on home oxygen documented in the Pulmonary consult 07/27 and in subsequent notes. Based on this information and the findings below, is there an additional diagnosis that is clinically appropriate for this patient? History/Risk Factors: 69-year-old male with a history of CHF, COPD on home oxygen, Pleural effusion who presents with chest pain and recurrent large right sided pleural effusion Tobacco use: Current every day smoker Home oxygen: 2liters nasal cannula Clinical Indicators: 07/27 Triage VS: 97.9, 110, 20, 146/80, 95% room air 07/27-07/29 Oxygen saturation range: 91(07/29 on room air)-100%(07/27 on 2l nasal cannula) Oxygen Flow rate range: 2-4 liters per nasal cannula 07/27 Pulmonology consult, Lung/Breathing assessment: "Lung sounds are diminished and the patient has diminished breath sound right lung base along with dullness to percussion. Thoracotomy scar over the left lateral chest area is clean. The patient also has an anterior thoracotomy scar." Assessment and Plan: "Severe COPD on home oxygen 2 L/min, preoperative FEV1 43% of predicted" 07/27 Chest X Ray, Impression: "Right sided pleural effusion. Increased interstitial opacities in the right lung." Treatment: Pulmonary consult Titrated nasal cannula oxygen Pulse oximetry every shift Duoneb 3ml nebulizer QID start 07/27 Duoneb 3ml nebulizer [id number] PRN-no doses given Pulmicort 1mg inhaler BID start 07/27 Perforomist 20mcg inhaler BID start 07/27 Is there an additional diagnosis that is clinically appropriate for this patient? [x] Acute on a Chronic Hypoxic Respiratory Failure [ ] No additional diagnosis/not clinically significant [ ] Other Diagnosis, please specify [ ] Unable to determine MTDD
[2024-07-29 20:48] VITALS: RESP 16
[2024-07-30] MEDS: APIXABAN 5 MG TAB PO SCH (09:29)
--- NOTE | 2024-07-30 11:06 | P.PN ---
Subjective Progress Note Date: 07/30/24 This is a 69-year-old male with past medical history significant for CAD status post CABG and subsequently redo CABG as well as severe cardiomyopathy with EF between 25 to 30%, valvular heart disease, hypertension, dyslipidemia, chronic kidney disease, and history of pleural effusions. He also states he has a history of paroxysmal A-fib. Patient follows in the office with Dr. Wiggins. We have been asked to see the patient in consultation for chest pain. Patient was examined at the bedside in the emergency room. Patient came to the hospital because he has been having this chest pain since yesterday which he has rated an 8 out of 10. He states that he is also short of breath and the pain worsens with deep breathing. he denies leg swelling, dizziness, cough, fever. Patient states he is still currently smoking although he has cut back. 07/28/2024 The patient underwent thoracentesis yesterday by Dr. Green with removal of 1800 mL of turbid colored fluid removed. Overall he is feeling quite a bit better. His breathing has improved. He continues to have occasional chest discomfort that he describes as a lightening bolt through his chest, very brief and sharp but better. Vital signs are stable. Eliquis has been on hold. He is maintaining sinus mechanism. 07/29/2024 Patient's respiratory status has been improved since he underwent thoracentesis. He states he had a previous effusion in April as well and does not know the underlying cause for these. He denies having any chest pain no chest pain with deep breathing. No significant shortness of breath at this time. No fevers no chills. Blood pressure 104/66, heart rate in the 80s, pulse ox 92% on room air. Repeat blood work reveals WBC 6.2, hemoglobin 10.6. Potassium 4.1, creatinine 1. 10/1 Patient is seen today and follow-up. He denies having any chest pain or shortness of breath. He is feeling well today and he feels he is ready to go home today. He is currently on oral cardiac medications. Discussed with the patient anticoagulation and he is agreeable to resume Eliquis. Blood pressure 1 21/71, heart rate 84, pulse ox 92% on room air. GENERAL: Well-developed in no acute distress. HEENT: Head is normocephalic. Pupils are equal, round. Sclerae anicteric. Mucous membranes of the mouth are moist. Neck supple. No JVD or thyromegaly LUNGS: Respirations even and unlabored. Diminished breath sounds. HEART: Regular rate and rhythm. S1 and S2 heard. Soft systolic murmur ABDOMEN: Soft. Nontender to palpation. EXTREMITIES: Normal range of motion. No clubbing or cyanosis. Peripheral pulses intact. No notable lower extremity edema. NEUROLOGIC: Awake and alert. Oriented x 3. Assessment: Chest pain, non-cardiogenic in nature Right pleural effusion, status post removal of 1800 mL History of paroxysmal A-fib CAD status post CABG and redo CABG Severe ischemic cardiomyopathy with EF 25% Hypertension Dyslipidemia Chronic kidney disease Plan: From cardiology's perspective no evidence of acute coronary syndrome. Continue patient on current cardiac medications: atorvastatin 40 mg daily, Plavix 75 mg daily, Farxiga 10 mg daily, Lasix 40 mg daily oral, Lopressor 12.5 mg twice daily, potassium chloride 10 mill equivalents daily Patient will be resumed on Eliquis at 5 mg twice daily, 5 mg doses is appropriate for his age, weight and renal function. Discontinue aspirin Patient is cleared for discharge and may follow-up in the office with Dr. Wiggins in 2 weeks. Nurse practitioner note has been reviewed, I agree with documented findings and plan of care. Patient was seen and examined. Objective - Vital Signs Vital signs: Vital Signs Temp 97.9 F 07/30/24 07:22 Pulse 84 07/30/24 07:22 Resp 16 07/30/24 07:22 BP 121/71 07/30/24 07:22 Pulse Ox 92 L 07/30/24 07:22 FiO2 Intake & Output 07/29/24 07/30/24 07/30/24 18:59 06:59 18:59 Intake Total 580 590 Output Total 2 300 Balance 578 290 Intake: Oral 580 590 Output: Urine 300 Stool 2 Other: # Voids 2 - Labs CBC & Chem 7: 07/29/24 05:20 07/29/24 05:20 Labs: Abnormal Lab Results - Last 24 Hours (Table) 07/29/24 07/29/24 Range/Units 05:20 05:20 RBC 4.15 L (4.40-5.60) X 10*6/uL Hgb 10.6 L (13.0-17.0) g/dL Hct 35.7 L (39.6-50.0) % MCH 25.5 L (27.0-32.0) pg MCHC 29.7 L (32.0-37.0) g/dL RDW 17.1 H (11.5-14.5) % Sodium 134 L (135-145) mmol/L Anion Gap 14.30 H (4.00-12.00) mmol/L Glucose 117 H (70-110) mg/dL
[2024-07-30 12:47] VITALS: BP 93/51; PULSE 77; TEMP 98.7
--- NOTE | 2024-07-30 13:34 | P.PN ---
Subjective Progress Note Date: 07/30/24 This is a 69-year-old male patient was coming into the emergency department because of chest pain and shortness of breath. The patient is known to have coronary artery disease and the patient has undergone previous coronary intervention multiple stenting for previous myocardial infarction's and the patient has undergone previous coronary artery bypass surgery around 20 years ago and more recently, in April 2024, the patient underwent two-vessel redo off- pump bypass surgery. He is known to have ischemic cardiomyopathy with an ejection fraction of around 20 to 25%. He is also known to have hypertension hyperlipidemia and left carotid artery stenosis in the order of 50 to 79%. He suffers from chronic stage IIIb kidney disease. He is also known to have severe COPD with an FEV1 of 43% predicted and obstructive sleep apnea. During his last admission, the patient underwent a right-sided thoracentesis and a total of 1.7 L of pleural fluid was aspirated from the right lung and the fluid was maxwell sudative fluid cytology was negative for malignancy. During this current admission, the patient's troponins are negative. The patient has a procalcitonin level of 0.04. Electrolytes are showing a component of anion gap metabolic acidosis with a serum bicarb of 19 and a gap of 8 and a sodium level of 138. LFTs are essentially within normal limits. The white cell count is at 4 with a hemoglobin 7.8 and a platelet count of 153. The chest x-ray shows cardiomegaly and right-sided pleural effusion. Following that, the patient underwent a CTA of the chest that showed no evidence of any pulmonary embolism and a moderate-sized right-sided pleural effusion was again noted along with compressive atelectasis of the right lung base and possibly some cirrhotic nature of the liver. I performed a bedside thoracentesis on this patient and I removed approximately 1.8 L of pleural fluid from the right lung. Repeat chest x-ray that was done following the thoracentesis shows no evidence of any pne umothorax and there is marked improvement in aeration in the right lung base. Meanwhile, CAT scan of the brain was also done that showed no acute process. The patient is currently on 2 L of oxygen by nasal cannula with a pulse ox of 99 to 100%. On 07/28/2024, the patient is calm and comfortable. Denies having any complaints. The patient underwent another thoracentesis of the right lung yesterday and since then his respiratory status is improved and the patient is currently on room air oxygen. Denies having any chest pain. The white cell count is at 5 hemoglobin 11 and a platelet count of 203 with a BUN of 12 and a creatinine of 0.9 and a sodium levels at 138. Troponins were all negative. The patient is seen today July 29, 2024 in follow-up on the regular medical floor. He is currently sitting up at the bedside. Awake and alert in no acute distress. Denies any worsening shortness of breath, cough or congestion. He is maintaining O2 saturations in the 90s on room air. He is breathing easier following his thoracentesis on July 27, 2024 with 1.8 L of fluid removed. White count 6.2. Hemoglobin 10.6. Platelets 193. Sodium 134. Potassium 4.1. Bicarb 22. BUN 12. Creatinine 1.0. Glucose 117. He is continued on DuoNeb and elations, Pulmicort and Perforomist inhalations, oral diuretics. The patient is seen today July 30, 2024 in follow-up on the regular medical floor. He is currently resting comfortably in bed. Awake and alert in no acute distress. Maintaining good O2 saturations in the 90s on room air. Denies any worsening shortness of breath, cough or congestion. He remains on DuoNeb and elations, Pulmicort and Perforomist inhalations. Remains on oral diuretics. Anticoagulated with Eliquis. Objective - Vital Signs Vital signs: Vital Signs Temp 98.7 F 07/30/24 12:06 Pulse 77 07/30/24 12:06 Resp 16 07/30/24 12:06 BP 93/51 07/30/24 12:06 Pulse Ox 92 L 07/30/24 12:06 FiO2 Intake & Output 07/29/24 07/30/24 07/30/24 18:59 06:59 18:59 Intake Total 580 590 Output Total 2 300 Balance 578 290 Intake: Oral 580 590 Output: Urine 300 Stool 2 Other: # Voids 2 - Exam GENERAL EXAM: Alert, active, pleasant 69-year-old male, resting in bed, comfortable in no apparent distress. HEAD: Normocephalic. EYES: Normal reaction of pupils, equal size. NOSE: Clear with pink turbinates. THROAT: No erythema or exudates. NECK: No masses, no JVD. CHEST: No chest wall deformity. Thoracotomy scar over the anterior chest. Thoracotomy scar over the left lateral chest. LUNGS: Equal air entry with diminished breath sounds in the right lung base. CVS: S1 and S2 normal with no audible murmur, regular rhythm. ABDOMEN: No hepatosplenomegaly, normal bowel sounds, no guarding or rigidity. SPINE: No scoliosis or deformity SKIN: No rashes CENTRAL NERVOUS SYSTEM: No focal deficits, tone is normal in all 4 extremities. EXTREMITIES: There is no peripheral edema. No clubbing, no cyanosis. Peripheral pulses are intact. - Labs CBC & Chem 7: 07/29/24 05:20 07/29/24 05:20 Assessment and Plan Assessment: Acute chest pain, negative troponins and no EKG abnormal findings. Cardiology on the case. He is known to have extensive coronary artery disease and has undergone bypass surgery x 2. Currently free of any chest pain. Recurrent large right-sided pleural effusion. Status post thoracentesis with 1.8 L of fluid removed on 07/27/2024. Rule out CHF related versus liver disease at the patient's pleural effusion on previous evaluation was a transudate. Noted the patient had undergone a previous thoracentesis on 05/17/2024 with evacuation of 1.7 L of pleural fluid and was a transudate, cytology negative for malignancy. Triple-vessel coronary artery disease, unstable angina with history of coronary artery disease/previous myocardial infarction/multiple stents/thrombectomy on Eliquis for anticoagulation/CABG 20 years ago, status post two-vessel redo off- pump CABG Ischemic cardiomyopathy/chronic systolic heart failure with reduced ejection fraction, EF 25-30%, repeat limited echo done yesterday demonstrates EF 20-25% History of hypertension Hyperlipidemia, treated with Zetia, patient has muscle pain with statins, cholesterol 121, LDL 52, triglycerides 180 Left internal carotid artery stenosis, 50-79% Chronic kidney disease, stage IIIb, baseline creatinine 1.6-1.7 Chronic anemia Chronic ongoing tobacco use Severe COPD on home oxygen 2 L/min, preoperative FEV1 43% of predicted Obstructive sleep apnea Chronic back pain with history of back surgery Medical debility Plan: The patient was seen and evaluated Labs and medications reviewed Stable and on room air Continue his home pulmonary medications Continue oral diuretics Follow-up in our office in 1 week This patient was seen independently by the pulmonary nurse practitioner addressing pulmonary issues I have personally seen and examined the patient, performed the documentation and the assessment and plan as written. Number of minutes spent on the visit: 24.
--- NOTE | 2024-08-01 20:52 | DS ---
DISCHARGE SUMMARY CHIEF COMPLAINT: Shortness of breath. HISTORY OF PRESENT ILLNESS AND PHYSICAL EXAMINATION: Details of this man's history and physical can be found in the initial workup. LABORATORY STUDIES: While he was in the hospital, he had laboratory studies, details of which can be found in the laboratory section of his chart. COURSE IN THE HOSPITAL: After admission, he was placed on bedrest, started on intravenous fluids and seen by Surgery. He was found to have a pleural effusion and this was tapped. After that, he did well. He had no complaints of chest pain, bleeding, cough, hemoptysis, etc. He is anxious to be discharged. He will go home on his usual activity, diet, medications and will follow up in several days. FINAL DIAGNOSES: 1. Acute on chronic congestive heart failure. 2. Pleural effusion. 3. Atherosclerotic cardiomyopathy. 4. Status post recent CABG. 5. Chronic obstructive pulmonary disease. 6. Nicotine abuse. OPERATION: Thoracentesis. CONSULTATION: Cardiology. He is improved. MMDEYANIRA / NATHALYN: [id number] /
--- NOTE | 2024-08-01 21:27 | PN ---
PROGRESS NOTE DATE OF SERVICE: 07/29/2024 CHIEF COMPLAINT: Congestive heart failure and pleural effusion. HISTORY OF PRESENT ILLNESS: This gentleman is doing fairly well. He is not having a great deal of shortness of breath. He has had no chest pain and he has had no fever or chills. PHYSICAL EXAMINATION: CHEST: Fairly clear. There are occasional rales. CARDIAC: Unremarkable. ABDOMEN: Soft, nontender. IMPRESSION: 1. Acute on chronic congestive heart failure. 2. Pleural effusion. 3. Chronic obstructive pulmonary disease. 4. Chronic low back pain. 5. Atherosclerotic cardiomyopathy. PLAN: Increase activity and home when cleared by Surgery. MMODL / IJN: [id number] /
[2024-08-02 15:06] LABS: Glucose,Whole Blood 98 mg/dL (70-110)
== END 2024-07-30 13:45 | disposition home or self-care (01) ==
LOC: EC 01:43 → INTOOBSV 06:13 → 3SCARD 06:13 → 5NMEDONC 18:32 → UNDODISOB 07-30 13:45
PROVIDERS: ADMIT Family Medicine; ATTEND Family Medicine
DX: J90 Pleural effusion, not elsewhere classified (principal); J96.21 Acute and chronic respiratory failure with hypoxia; R53.81 Other malaise; D64.9 Anemia, unspecified; E11.22 Type 2 diabetes mellitus with diabetic chronic kidney disease; I13.0 Hypertensive heart and chronic kidney disease with heart failure and stage 1 through stage 4 chronic kidney disease, or unspecified chronic kidney disease; N18.32 Chronic kidney disease, stage 3b; E78.5 Hyperlipidemia, unspecified; F17.200 Nicotine dependence, unspecified, uncomplicated; F32.A Depression, unspecified; F41.9 Anxiety disorder, unspecified; F43.10 Post-traumatic stress disorder, unspecified; G47.33 Obstructive sleep apnea (adult) (pediatric); G89.29 Other chronic pain; I25.110 Atherosclerotic heart disease of native coronary artery with unstable angina pectoris; I25.2 Old myocardial infarction; I25.5 Ischemic cardiomyopathy; I48.0 Paroxysmal atrial fibrillation; I65.22 Occlusion and stenosis of left carotid artery; J96.20 Acute and chronic respiratory failure, unspecified whether with hypoxia or hypercapnia; K21.9 Gastro-esophageal reflux disease without esophagitis; M19.90 Unspecified osteoarthritis, unspecified site; M54.50 Low back pain, unspecified; Z79.02 Long term (current) use of antithrombotics/antiplatelets; Z79.899 Other long term (current) drug therapy; Z88.8 Allergy status to other drugs, medicaments and biological substances; Z91.040 Latex allergy status; Z79.84 Long term (current) use of oral hypoglycemic drugs; Z79.01 Long term (current) use of anticoagulants; Z80.1 Family history of malignant neoplasm of trachea, bronchus and lung; Z82.49 Family history of ischemic heart disease and other diseases of the circulatory system; Z95.1 Presence of aortocoronary bypass graft; Z95.5 Presence of coronary angioplasty implant and graft; Z99.81 Dependence on supplemental oxygen
CPT/HCPCS: 96376 ×4; 96365; 96367; 96375; 99285; 36415; 32555; 94640 ×8; 94760 ×3; 93005; 85379; 80061; 80053; 80048 ×2; 82150; 83605; 83690; 83735; 84484; 85025 ×3; 85610; 85730; 84145; 71045; 70450; 71275; G0378 ×4; S4990; J2270 ×4; J0696; J1644 ×2; Q9967; 96366

== ENCOUNTER → 2024-08-05 | Outpatient (CLI) | payer MEDICARE, OTHER ==
[2024-08-05 13:44] VITALS: BP 146/73; PULSE 83; RESP 16
--- NOTE | 2024-08-05 15:08 | P.PAINPG ---
PQRS Measure Charge Sheet Comment: HISTORY OF PRESENT ILLNESS: A 69 yr old male w at side as a referral from Dr Gee presents today w severe and chronic LBP > 3 mo secondary to radiculopathy, spondylosis and facet arthropathy without myelopathy for evaluation. Pt states pain level is provoked at 8 /10 in intensity, constant, localized in the lumbar spine, predominantly axial, achy in character w occasional shooting pain towards the LLE. Pain is provoked by walking for periods > 30 min. Pain is alleviated by manual massage, heat, ice, medications ([place], Tyl), topical Icy-Hot, repositioning and rest . PMH: OA, CAD, Angina, CHF, COPD, GERD, Hyperlipidemia, HTN, CO (2022), HUSAM, BPH, Vitamin D Deficiency, MDD/ Anxiety/ PTSD PSH: L5-S1 Fusion x2 w CAGE, Cholecystectomy, Coronary Bypass/CABG, Heart Catheterization With Stent x7 (last Oct 2022), L Elbow Surgery, Thrombectomy, Colonoscopy, BL Lasik Eye Surgery SH: Daily tobacco use, ETOH abuse, Hx of Cocaine Abuse FH: Fa- CAD, DVT, CO, in his 80s. Mo- CO, . Bro- CO, . Sis- CA, DM. All: See list Meds: See list REVIEW OF ORGAN SYSTEMS: CONSTITUTIONAL: No fevers or chills. No recent weight loss. NEUROLOGICAL: + numbness and tingling along the distal extremities. No seizure disorders or headaches. MUSCULOSKELETAL: + pain PSYCHIATRIC: Denies current depression or suicidal thoughts. Physical Examinations : Constitutional : Cooperative , not in acute distress . Neurologic : Cranial nerve II to XII intact. No focal neurological deficits. Psychiatric : alert & oriented x 3. Matching mood & appropriate affect. Judgment & insight intact. Musculoskeletal : Cervical Spine Motor strength in the deltoid and biceps: Normal right side. Normal Left side Motor strength biceps and the wrist extensors: Normal right side . Normal left side Motor strength in the triceps muscle: Normal right side. Normal left side Deep tendon reflexes: Normal at the biceps. Normal at Brachioradialis. Normal at triceps Vertebral body tenderness to deep palpation over Cervical facet loading test: positive bilaterally Spurling test: positive bilaterally Neck distraction test: positive bilaterally Nilda sign: positive bilaterally Lumbar spine Motor strength lower extremities ,thigh and legs 5/5 Right side , 5/5 Left side Deep tendon reflexes : Normal Knee Jerk. Normal Ankle Jerk Vertebral body tenderness over Alexis Test positive Lumbar facet Loading Test: positive Right / positive Left Range of motion of the lumbar spine Flexion 30 degrees, extension 10 degrees Straight Leg Raise test: Left/ Right positive at degrees Michel test: positive right / positive left. Severe tenderness over the Sacroiliac joint on the Right / Left sides Gaenslen test: positive bilaterally Seated flexion test: positive bilaterally. Sacral spine : Severe tenderness over the Sacroiliac joint: right side / left side Range of motion: Flexion of the lumbar spine <60 degrees Range of motion: Extension of the lumbar spine <20 degrees Gaenslen's Test positive Michel test: positive right side / left side Thigh Thrust Test Sacral Thrust Test Imaging: Lumbar x- ray from Dr Gee's office from 08/01/24 reviewed MRI non contrast lumbar spine from 08/06/2019 reviewed Assessment/ Plan : L5-S1 posterior fusion Recommendation of PT x 6 wks M54.[address] scan lumbar spine . All questions answered. I have spent greater than 30 minutes on patient care today. Dr Ramirez was available by phone for the evaluation of this patient. The time was used to review the medical records including relevant urine studies and Prescription history (MAPs), review of the available imaging, evaluation and examination of the patient, coordination of care with the medical staff and if applicable referring physicians, as well as creation of the medical record PQRS Narrative: Smoking Status Current every day smoker Home Medications: Ambulatory Orders Apixaban [Eliquis] 2.5 mg PO BID #60 tab 11/18/22 Ezetimibe [Zetia] 10 mg PO DAILY #90 tab 11/18/22 Fluticasone Nasal [place] [Flonase Nasal [place]] 1 spray EA NOSTRIL BID PRN 01/27/23 Clopidogrel [Plavix] 75 mg PO DAILY 08/21/23 Cyclobenzaprine [Flexeril] 10 mg PO BID 08/21/23 Sodium Bicarbonate Tab 650 mg PO TID #100 tab 01/25/24 Ergocalciferol [Vitamin D2 (1250 Mcg = 86335 Iu)] 1,250 mcg PO Q30D 05/10/24 Ferrous Sulfate [Iron (65 MG Elemental)] 325 mg PO DAILY 05/10/24 Gabapentin [Neurontin] 100 mg PO TID 05/10/24 Atorvastatin [Lipitor] 40 mg PO DAILY tab 05/24/24 Budesonide [Pulmicort] 1 mg INHALATION RT-BID ml 05/24/24 Dapagliflozin Propanediol [Farxiga] 10 mg PO DAILY tab 05/24/24 Formoterol Fumarate [Perforomist] 20 mcg INHALATION RT-BID ml 05/24/24 Furosemide [Lasix] 40 mg PO DAILY #30 tablet 05/24/24 Ipratropium-Albuterol Nebulize [Duoneb 0.5 mg-3 mg/3 ml Soln] 3 ml INHALATION RT-Q2H PRN each 05/24/24 Metoprolol Tartrate [Lopressor] 12.5 mg PO BID tab 05/24/24 Pantoprazole [Protonix] 40 mg PO AC-BRKFST tab 05/24/24 Potassium Chloride ER [K-Dur 10] 10 meq PO DAILY #30 tab 05/24/24 Spironolactone [Aldactone] 12.5 mg PO DAILY tab 05/24/24 lisinopriL [Zestril] 2.5 mg PO DAILY@1200 tab 05/24/24 ALPRAZolam [Xanax] 2 mg PO HS 07/27/24 HYDROcodone/APAP 10-325MG [[place] 10-325] 1 tab PO BID PRN 07/27/24 Controlled Substance Measures - Controlled Substance Measures Is patient prescribed a controlled substance at discharge?: No
== END | disposition home or self-care (01) ==
LOC: PNWHC3 13:10
PROVIDERS: ATTEND Specialist
DX: M54.50 Low back pain, unspecified
CPT/HCPCS: 99211

== ENCOUNTER 2024-08-14 04:41 | Observation (INO) | payer MEDICARE, OTHER ==
[2024-08-14 04:44] VITALS: TEMP 98.1
--- NOTE | 2024-08-14 05:03 | ED ---
General Adult HPI - General Chief complaint: Chest Pain Stated complaint: Chest Pain Time Seen by Provider: 08/14/24 04:49 Source: patient, RN notes reviewed, old records reviewed Mode of arrival: ambulatory Limitations: no limitations - History of Present Illness Initial comments: 69-year-old male history of CAD, CHF and COPD presenting with chest pain and moderate dyspnea. Patient states that chest pain does radiate to both arms. He states has been present for the past 3 hours. Patient denies lower extremity pain or swelling. Denies fever. Denies cough. - Related Data Home Medications Medication Instructions Recorded Confirmed Fluticasone Nasal [place] [Flonase 1 spray EA NOSTRIL BID PRN 01/27/23 08/05/24 Nasal [place]] Clopidogrel [Plavix] 75 mg PO DAILY 08/21/23 08/05/24 Cyclobenzaprine [Flexeril] 10 mg PO BID 08/21/23 08/05/24 Ergocalciferol [Vitamin D2 (1250 1,250 mcg PO Q30D 05/10/24 08/05/24 Mcg = 27745 Iu)] Ferrous Sulfate [Iron (65 MG 325 mg PO DAILY 05/10/24 08/05/24 Elemental)] Gabapentin [Neurontin] 100 mg PO TID 05/10/24 08/05/24 ALPRAZolam [Xanax] 2 mg PO HS 07/27/24 08/05/24 HYDROcodone/APAP 10-325MG [[place] 1 tab PO BID PRN 07/27/24 08/05/24 10-325] Previous Rx's Medication Instructions Recorded Apixaban [Eliquis] 2.5 mg PO BID #60 tab 11/18/22 Ezetimibe [Zetia] 10 mg PO DAILY #90 tab 11/18/22 Sodium Bicarbonate Tab 650 mg PO TID #100 tab 01/25/24 Atorvastatin [Lipitor] 40 mg PO DAILY tab 05/24/24 Budesonide [Pulmicort] 1 mg INHALATION RT-BID ml 05/24/24 Dapagliflozin Propanediol [Farxiga] 10 mg PO DAILY tab 05/24/24 Formoterol Fumarate [Perforomist] 20 mcg INHALATION RT-BID ml 05/24/24 Furosemide [Lasix] 40 mg PO DAILY #30 tablet 05/24/24 Ipratropium-Albuterol Nebulize 3 ml INHALATION RT-Q2H PRN each 05/24/24 [Duoneb 0.5 mg-3 mg/3 ml Soln] Metoprolol Tartrate [Lopressor] 12.5 mg PO BID tab 05/24/24 Pantoprazole [Protonix] 40 mg PO AC-BRKFST tab 05/24/24 Potassium Chloride ER [K-Dur 10] 10 meq PO DAILY #30 tab 05/24/24 Spironolactone [Aldactone] 12.5 mg PO DAILY tab 05/24/24 lisinopriL [Zestril] 2.5 mg PO DAILY@1200 tab 05/24/24 Allergies Allergy/AdvReac Type Severity Reaction Status Date / Time latex Allergy Swelling Verified 08/14/24 04:44 atorvastatin [From Lipitor] AdvReac JOINT PAIN Verified 08/14/24 04:44 Review of Systems ROS Statement: Those systems with pertinent positive or pertinent negative responses have been documented in the HPI. ROS Other: All systems not noted in ROS Statement are negative. Past Medical History Past Medical History: Coronary Artery Disease (CAD), Chest Pain / Angina, Heart Failure, COPD, GERD/Reflux, Hyperlipidemia, Hypertension, Myocardial Infarction ([place]), Osteoarthritis (OA), Sleep Apnea/CPAP/BIPAP Additional Past Medical History / Comment(s): Chronic back pain, left leg weakness. No device use for Sleep Apnea, states uses O2 at night only. Recent SOB, edema lower extremitries. States unsure about having had a heart attack. Last Myocardial Infarction Date:: 11/11/22 History of Any Multi-Drug Resistant Organisms: None Reported Past Surgical History: Back Surgery, Cholecystectomy, Coronary Bypass/CABG, Heart Catheterization With Stent, Orthopedic Surgery Additional Past Surgical History / Comment(s): Back surgery X2 with cage, left tennis elbow surgery, heart stents X7, colonoscopy, lasik eye surgery bilaterally,. emergency CABG [facility] [place], thrombectomy. Past Anesthesia/Blood Transfusion Reactions: No Reported Reaction Additional Past Anesthesia/Blood Transfusion Reaction / Comment(s): Pt received blood during CABG without reaction. Date of Last Stent Placement:: Oct 2022 Past Psychological History: Anxiety, Depression, PTSD Smoking Status: Former smoker Past Alcohol Use History: None Reported Past Drug Use History: None Reported - Past Family History Father Family Medical History: Coronary Artery Disease (CAD), Deep Vein Thrombosis (DVT), GERD/Reflux, Hyperlipidemia, Myocardial Infarction ([place]) Additional Family Medical History / Comment(s): Father of a [place] in his 80's. Mother Family Medical History: Coronary Artery Disease (CAD), Myocardial Infarction ([place]) Additional Family Medical History / Comment(s): Mother of a [place]. Brother(s) Family Medical History: Myocardial Infarction ([place]) Additional Family Medical History / Comment(s): . Sister(s) Family Medical History: Cancer, Diabetes Mellitus Additional Family Medical History / Comment(s): Lung cancer. Other sister had Diabetes. General Exam Limitations: no limitations General appearance: alert, in no apparent distress Head exam: Present: atraumatic, normocephalic Eye exam: Present: normal appearance, PERRL ENT exam: Present: normal exam Neck exam: Present: normal inspection Respiratory exam: Present: decreased breath sounds. Absent: respiratory distress Cardiovascular Exam: Present: regular rate, normal rhythm GI/Abdominal exam: Present: soft. Absent: distended, guarding, rebound Extremities exam: Present: normal inspection, normal capillary refill. Absent: calf tenderness Course Vital Signs 08/14/24 04:42 Temperature 98.1 F Pulse Rate 81 Respiratory 18 Rate Blood Pressure 119/73 O2 Sat by Pulse 95 Oximetry Medical Decision Making - Medical Decision Making Was pt. sent in by a medical professional or institution (, ROBERT, [employer]INT [employer]ER, urgent care, hospital, or correction...) When possible be specific @ -No Did you speak to anyone other than the patient for history (EMS, parent, family, police, friend...)? What history was obtained from this source @ -No Did you review nursing and triage notes (agree or disagree)? Why? @ -I reviewed and agree with nursing and triage notes Were old charts reviewed (outside hosp., previous admission, EMS record, old EKG, old radiological studies, urgent care reports/EKG's, correction records)? Report findings @ -No old charts were reviewed Differential Chest Pain: Stable Angina, Unstable Angina, STEMI, NSTEMI Aortic Dissection, Pneumothorax, Musculoskeletal, Esophageal Spasm GERD, Cholecystitis, Pancreatitis, Zoster, this is not meant to be an all-inclusive list. EKG interpreted by me (3pts min.). @Sinus rhythm T wave inversion in the lateral precordial leads which is similar compared to previous, ventricular rate of 80, IL interval 139, QRS duration 101, QTc [address] segment elevation. X-rays interpreted by me (1pt min.). @ -Chest x-ray shows moderate right-sided pleural effusion, no pneumothorax. CT interpreted by me (1pt min.). @ -None done U/S interpreted by me (1pt. min.). @ -None done What testing was considered but not performed or refused? (CT, X-rays, U/S, labs)? Why? @ -None What meds were considered but not given or refused? Why? @ -None Did you discuss the management of the patient with other professionals (professionals i.e. DrShelby, PA, JOINT TERMINAL ATTACK CONTROLLER, lab, RT, psych nurse, social economist, criminal justice lawyer, teacher, peace officer, case reviewer)? Give summary @Dr. Gee Was smoking cessation discussed for >3mins.? @ -No Was critical care preformed (if so, how long)? @ -No Were there social determinants of health that impacted care today? How? ( Homelessness, low income, unemployed, alcoholism, drug addiction, transportation, low edu. Level, literacy, decrease access to med. care, longterm, rehab)? @ -No Was there de-escalation of care discussed even if they declined (Discuss DNR or withdrawal of care, Hospice)? DNR status @ -No What co-morbidities impacted this encounter? (DM, HTN, Smoking, COPD, CAD, Cancer, CVA, ARF, Chemo, Hep., AIDS, mental health diagnosis, sleep apnea, morbid obesity)? @ -Coronary artery disease status post CABG Was patient admitted / discharged? Hospital course, mention meds given and route, prescriptions, significant lab abnormalities, going to OR and other pertinent info. @ -69-year-old male with recurrent chest pain and dyspnea. EKG appears unchanged from baseline. Patient has chest x-ray showing moderate right-sided pleural effusion. Initial laboratory testing is unremarkable. Patient will be observed for symptom control, serial cardiac enzymes, and evaluation by both cardiology and pulmonology. Case discussed with Dr. Gee who will admit. Undiagnosed new problem with uncertain prognosis? @ -No Drug Therapy requiring intensive monitoring for toxicity (Heparin, Nitro, Insulin, Cardizem)? @ -No Were any procedures done? @ -No Diagnosis/symptom? @ -Chest pain, dyspnea, pleural effusion Acute, or Chronic, or Acute on Chronic? @ -Acute Uncomplicated (without systemic symptoms) or Complicated (systemic symptoms)? @ -Default Side effects of treatment? @ -No Exacerbation, Progression, or Severe Exacerbation? @ -No Poses a threat to life or bodily function? How? (Chest pain, [place], [place], pneumonia, PE, COPD, DKA, ARF, appy, cholecystitis, CVA, Diverticulitis, Homicidal, Suicidal, threat to staff... and all critical care pts) @ -yes, ACS, respiratory failure - Lab Data Result diagrams: 08/14/24 04:55 08/14/24 04:55 Lab Results 08/14/24 08/14/24 08/14/24 Range/Units 04:55 04:55 04:55 WBC 5.3 (3.8-10.6) k/uL RBC 4.54 (4.30-5.90) m/uL Hgb 11.4 L (13.0-17.5) gm/dL Hct 37.3 L (39.0-53.0) % MCV 82.2 (80.0-100.0) fL MCH 25.2 (25.0-35.0) pg MCHC 30.6 L (31.0-37.0) g/dL RDW 16.6 H (11.5-15.5) % Plt Count 182 (150-450) k/uL MPV 9.1 Neutrophils % 62 % Lymphocytes % 24 % Monocytes % 9 % Eosinophils % 2 % Basophils % 1 % Neutrophils # 3.3 (1.3-7.7) k/uL Lymphocytes # 1.3 (1.0-4.8) k/uL Monocytes # 0.5 (0-1.0) k/uL Eosinophils # 0.1 (0-0.7) k/uL Basophils # 0.1 (0-0.2) k/uL Hypochromasia Marked Anisocytosis Slight PT 10.8 (10.0-12.5) sec INR 1.0 (<1.2) APTT 24.8 (22.0-30.0) sec Sodium 140 (137-145) mmol/L Potassium 4.0 (3.5-5.1) mmol/L Chloride 109 H (98-107) mmol/L Carbon Dioxide 20 L (22-30) mmol/L Anion Gap 11 mmol/L BUN 16 (9-20) mg/dL Creatinine 0.80 (0.66-1.25) mg/dL Est GFR (CKD-EPI)AfAm >90 (>60 ml/min/1.73 sqM) Est GFR (CKD-EPI)NonAf >90 (>60 ml/min/1.73 sqM) Glucose 90 (74-99) mg/dL Calcium 9.6 (8.4-10.2) mg/dL Magnesium 1.7 (1.6-2.3) mg/dL Total Bilirubin 0.8 (0.2-1.3) mg/dL AST 34 (17-59) U/L ALT 15 (4-49) U/L Alkaline Phosphatase 144 H (38-126) U/L Troponin I (0.000-0.034) ng/mL Total Protein 7.9 (6.3-8.2) g/dL Albumin 4.1 (3.5-5.0) g/dL Lipase 125 (23-300) U/L 08/14/24 Range/Units 04:55 WBC (3.8-10.6) k/uL RBC (4.30-5.90) m/uL Hgb (13.0-17.5) gm/dL Hct (39.0-53.0) % MCV (80.0-100.0) fL MCH (25.0-35.0) pg MCHC (31.0-37.0) g/dL RDW (11.5-15.5) % Plt Count (150-450) k/uL MPV Neutrophils % % Lymphocytes % % Monocytes % % Eosinophils % % Basophils % % Neutrophils # (1.3-7.7) k/uL Lymphocytes # (1.0-4.8) k/uL Monocytes # (0-1.0) k/uL Eosinophils # (0-0.7) k/uL Basophils # (0-0.2) k/uL Hypochromasia Anisocytosis PT (10.0-12.5) sec INR (<1.2) APTT (22.0-30.0) sec Sodium (137-145) mmol/L Potassium (3.5-5.1) mmol/L Chloride (98-107) mmol/L Carbon Dioxide (22-30) mmol/L Anion Gap mmol/L BUN (9-20) mg/dL Creatinine (0.66-1.25) mg/dL Est GFR (CKD-EPI)AfAm (>60 ml/min/1.73 sqM) Est GFR (CKD-EPI)NonAf (>60 ml/min/1.73 sqM) Glucose (74-99) mg/dL Calcium (8.4-10.2) mg/dL Magnesium (1.6-2.3) mg/dL Total Bilirubin (0.2-1.3) mg/dL AST (17-59) U/L ALT (4-49) U/L Alkaline Phosphatase (38-126) U/L Troponin I 0.016 (0.000-0.034) ng/mL Total Protein (6.3-8.2) g/dL Albumin (3.5-5.0) g/dL Lipase (23-300) U/L Disposition Clinical Impression: Chest pain, CHF (congestive heart failure), Pleural effusion Disposition: ADMITTED IP TO THIS HOSP Condition: Stable Is patient prescribed a controlled substance at d/c from ED?: No Referrals: Alexx Gee MD [Primary Care Provider] - 1-2 days Time of Disposition: 06:27
[2024-08-14 05:33] LABS: Anisocytosis Slight; Basophils # (A) 0.1 k/uL (0-0.2); Basophils % (A) 1 %; Eosinophils # (A) 0.1 k/uL (0-0.7); Eosinophils % (A) 2 %; HCT 37.3 % (39.0-53.0); HGB 11.4 gm/dL (13.0-17.5); Hypochromasia Marked; Lymphocytes # (A) 1.3 k/uL (1.0-4.8); Lymphocytes % (A) 24 %; MCH 25.2 pg (25.0-35.0); MCHC 30.6 g/dL (31.0-37.0); MCV 82.2 fL (80.0-100.0); Mean Platelet Volume 9.1; Monocytes # (A) 0.5 k/uL (0-1.0); Monocytes % (A) 9 %; Neutrophils # (A) 3.3 k/uL (1.3-7.7); Neutrophils % (A) 62 %; Platelet Count 182 k/uL (150-450); RBC 4.54 m/uL (4.30-5.90); RDW 16.6 % (11.5-15.5); WBC 5.3 k/uL (3.8-10.6)
[2024-08-14] MEDS: MORPHINE SULFATE 4 MG/ML SYRINGE IVP STA (05:34)
[2024-08-14 05:35] LABS: Partial Thromboplastin Time 24.8 sec (22.0-30.0); Prothrombin Time 10.8 sec (10.0-12.5)
[2024-08-14 05:39] LABS: ALT 15 U/L (4-49); AST 34 U/L (17-59); African American GFR (CKD) >90 (>60 ml/min/1.73 sqM); Albumin 4.1 g/dL (3.5-5.0); Alkaline Phosphatase 144 U/L (38-126); Anion Gap 11 mmol/L; Blood Urea Nitrogen 16 mg/dL (9-20); Calcium 9.6 mg/dL (8.4-10.2); Carbon Dioxide 20 mmol/L (22-30); Chloride 109 mmol/L (98-107); Glucose 90 mg/dL (74-99); Lipase 125 U/L (23-300); Magnesium 1.7 mg/dL (1.6-2.3); Non-African American GFR(CKD) >90 (>60 ml/min/1.73 sqM); Sodium 140 mmol/L (137-145); Total Bilirubin 0.8 mg/dL (0.2-1.3); Total Protein 7.9 g/dL (6.3-8.2)
--- NOTE | 2024-08-14 06:21 | XR ---
EXAM: XR Chest, 2 Views CLINICAL HISTORY: ITS.REASON XR Reason: Chest Pain TECHNIQUE: Frontal and lateral views of the chest. COMPARISON: Single view of the chest July 27, 2024 IMPRESSION: 1. Redemonstrated large right pleural effusion with adjacent compressive atelectasis. 2. Cardiomegaly. 3. Sternotomy and CABG changes. 4. Otherwise, no acute cardiopulmonary abnormality.
[2024-08-14] MEDS ORDERED: ONDANSETRON 4 MG/2 ML VIAL IVP PRN (06:23)
[2024-08-14] MEDS ORDERED: NALOXONE 0.4 MG/ML 1 ML VIAL IV PRN (06:23)
[2024-08-14] MEDS ORDERED: ACETAMINOPHEN TAB 325 MG TAB PO PRN (06:23)
[2024-08-14] MEDS: MORPHINE SULFATE 4 MG/ML SYRINGE IV PRN (06:49)
[2024-08-14] MEDS: ATORVASTATIN 40 MG TAB PO SCH (08:20)
[2024-08-14] MEDS: POTASSIUM CHLORIDE ER 10 MEQ TAB.ER.PRT PO SCH (08:20)
[2024-08-14] MEDS: METOPROLOL TARTRATE 12.5 MG TAB PO SCH (08:20)
[2024-08-14] MEDS: FUROSEMIDE 40 MG TAB PO SCH (08:21)
[2024-08-14] MEDS: DAPAGLIFLOZIN PROPANEDIOL 10 MG TABLET PO SCH (08:21)
[2024-08-14] MEDS: APIXABAN 2.5 MG TABLET PO SCH (08:21)
[2024-08-14] MEDS: EZETIMIBE 10 MG TAB PO SCH (08:21)
[2024-08-14] MEDS: CLOPIDOGREL 75 MG TAB PO SCH (08:21)
[2024-08-14] MEDS: FUROSEMIDE 10 MG/ML 4 ML VIAL IV SCH (12:54)
[2024-08-14 13:01] VITALS: BP 125/65; PULSE 78; RESP 16
--- NOTE | 2024-08-14 14:07 | P.CRDCN ---
History of Present Illness Consult date: 08/14/24 Consult reason: chest pain History of present illness: This is a 69-year-old male patient of Dr. Wiggins with past medical history of CAD status post CABG and subsequently redo CABG as well as severe cardiomyopathy with EF between 25 to 30%, valvular heart disease, hypertension, dyslipidemia, chronic kidney disease, history of pleural effusions, and paroxysmal A-fib. Patient had a recent hospitalization and was seen by cardiology at that time for chest pain noncardiac, right pleural effusion status post removal of 1800 mL and he had a previous thoracentesis in April. Patient is complaining of chest pain and shortness of breath is worse last night. He also has pain in the bilateral arms that has been going on for a week. He states is a achy sensation like a toothache. He also has left lateral chest pain at site of previous CABG. He does have tenderness at that site and pain is worse with a cough. He states he really has not been feeling better since his second surgery. He states that chest pain is not worse with activity. He does have increased shortness of breath with activity and he has been using his inhalers which seem to help. He states he has been quite sedentary and usually just sitting in his recliner. Blood pressure 125/65, heart rate 78, pulse ox 96% on room air. EKG: Sinus rhythm Chest x-ray: Redemonstrated large right pleural effusion with adjacent compressive atelectasis. Cardiomegaly. Laboratory studies: WBC 5.3, hemoglobin 11.4. Sodium 140, potassium 4, creatinine 0.8. Troponin negative x 3. Home cardiac medications: Eliquis 2.5 mg twice daily, atorvastatin 40 mg at bedtime, Plavix 75 mg daily, Farxiga 10 mg daily, Zetia 10 mg daily, Lasix 40 mg daily, lisinopril 2.5 mg daily at noon, Lopressor 12.5 mg twice daily, potassium chloride 10 mEq daily, spironolactone 12.5 mg daily. Echocardiogram performed 05/18/2024 revealed EF of 20 to 25%, severely hypokinetic anterior wall anterior septal and anterior lateral wall. Cardiac catheterization 11/11/2022 revealed occluded SVG to LAD with subsequent PCI of the SVG to LAD. 05/15/2024 redo CABG x 2 with left thoracotomy approach Initial CABG done approximately 20 years ago Review Of Systems: At the time of my exam: CONSTITUTIONAL: Denies fever or chills. HEENT: Denies blurred vision, vision changes, or eye pain. Denies hemoptysis CARDIOVASCULAR: Denies chest pain. Denies orthopnea. Denies PND. Denies palpitations RESPIRATORY: Reports dyspnea on exertion, reports shortness of breath. GASTROINTESTINAL: Denies abdominal pain. Denies nausea or vomiting. HEMATOLOGIC: Denies bleeding disorders. GENITOURINARY: Denies any blood in urine. SKIN: Denies puritis. Denies rash. Physical examination: Gen: This is a 69-year-old male in no acute distress but appears to be uncomfortable VS: reviewed HEENT: Head is atraumatic, normocephalic. Pupils equal, round. Sclerae is anicteric. NECK: Supple. No JVD. LUNGS: Diminished on the right. No wheezes or rhonchi. No intercostal retractions. HEART: Regular rate and rhythm. Systolic murmur. + Left lateral chest wall tenderness. ABDOMEN: Soft No tenderness. EXTREMITIES: No pedal edema. No calf tenderness. NEUROLOGICAL: Patient is awake, alert and oriented x3. Assessment: Atypical chest pain reproducible most likely skeletal wall Acute on chronic systolic heart failure Large right pleural effusion Coronary artery disease with recent redo CABG in April Ischemic cardiomyopathy with EF of 25 to 30% Hypertension Dyslipidemia Chronic kidney disease Paroxysmal atrial fibrillation Plan: Resume patient's home cardiac medications Start patient on IV Lasix 40 mg every 12 hours Monitor HANS, daily weights, electrolytes and renal function Pulmonary consult for large right pleural effusion. Obtain 2-D echocardiogram and Doppler study to assess cardiac structure and function Further recommendations to follow based upon clinical course Thank you kindly for this consultation. Nurse practitioner note has been reviewed, I agree with documented findings and plan of care. Patient was seen and examined. Past Medical History Past Medical History: Coronary Artery Disease (CAD), Chest Pain / Angina, Heart Failure, COPD, GERD/Reflux, Hyperlipidemia, Hypertension, Myocardial Infarction ([place]), Osteoarthritis (OA), Sleep Apnea/CPAP/BIPAP Additional Past Medical History / Comment(s): Chronic back pain, left leg weakness. No device use for Sleep Apnea, states uses O2 at night only. Recent SOB, edema lower extremitries. States unsure about having had a heart attack. Last Myocardial Infarction Date:: 11/11/22 History of Any Multi-Drug Resistant Organisms: None Reported Past Surgical History: Back Surgery, Cholecystectomy, Coronary Bypass/CABG, Heart Catheterization With Stent, Orthopedic Surgery Additional Past Surgical History / Comment(s): Back surgery X2 with cage, left tennis elbow surgery, heart stents X7, colonoscopy, lasik eye surgery bilaterally,. emergency CABG [facility] [place], thrombectomy. Past Anesthesia/Blood Transfusion Reactions: No Reported Reaction Additional Past Anesthesia/Blood Transfusion Reaction / Comment(s): Pt received blood during CABG without reaction. Date of Last Stent Placement:: Oct 2022 Past Psychological History: Anxiety, Depression, PTSD Smoking Status: Former smoker Past Alcohol Use History: None Reported Past Drug Use History: None Reported - Past Family History Father Family Medical History: Coronary Artery Disease (CAD), Deep Vein Thrombosis (DVT), GERD/Reflux, Hyperlipidemia, Myocardial Infarction ([place]) Additional Family Medical History / Comment(s): Father of a [place] in his 80's. Mother Family Medical History: Coronary Artery Disease (CAD), Myocardial Infarction ([place]) Additional Family Medical History / Comment(s): Mother of a [place]. Brother(s) Family Medical History: Myocardial Infarction ([place]) Additional Family Medical History / Comment(s): . Sister(s) Family Medical History: Cancer, Diabetes Mellitus Additional Family Medical History / Comment(s): Lung cancer. Other sister had Diabetes. Medications and Allergies Home Medications Medication Instructions Recorded Confirmed Type Apixaban [Eliquis] 2.5 mg PO BID #60 tab 11/18/22 08/14/24 Rx Ezetimibe [Zetia] 10 mg PO DAILY #90 tab 11/18/22 08/14/24 Rx Fluticasone Nasal [place] [Flonase 1 spray EA NOSTRIL BID PRN 01/27/23 08/14/24 History Nasal [place]] Clopidogrel [Plavix] 75 mg PO DAILY 08/21/23 08/14/24 History Cyclobenzaprine [Flexeril] 10 mg PO BID 08/21/23 08/14/24 History Sodium Bicarbonate Tab 650 mg PO TID #100 tab 01/25/24 08/14/24 Rx Ergocalciferol [Vitamin D2 (1250 1,250 mcg PO QMONTHLY 05/10/24 08/14/24 History Mcg = 73448 Iu)] Ferrous Sulfate [Iron (65 MG 325 mg PO DAILY 05/10/24 08/14/24 History Elemental)] Gabapentin [Neurontin] 100 mg PO TID 05/10/24 08/14/24 History Atorvastatin [Lipitor] 40 mg PO DAILY tab 05/24/24 08/14/24 Rx Budesonide [Pulmicort] 1 mg INHALATION RT-BID ml 05/24/24 08/14/24 Rx Dapagliflozin Propanediol [Farxiga] 10 mg PO DAILY tab 05/24/24 08/14/24 Rx Formoterol Fumarate [Perforomist] 20 mcg INHALATION RT-BID ml 05/24/24 08/14/24 Rx Furosemide [Lasix] 40 mg PO DAILY #30 tablet 05/24/24 08/14/24 Rx Ipratropium-Albuterol Nebulize 3 ml INHALATION RT-Q2H PRN each 05/24/24 08/14/24 Rx [Duoneb 0.5 mg-3 mg/3 ml Soln] Metoprolol Tartrate [Lopressor] 12.5 mg PO BID tab 05/24/24 08/14/24 Rx Pantoprazole [Protonix] 40 mg PO AC-BRKFST tab 05/24/24 08/14/24 Rx Potassium Chloride ER [K-Dur 10] 10 meq PO DAILY #30 tab 05/24/24 08/14/24 Rx Spironolactone [Aldactone] 12.5 mg PO DAILY tab 05/24/24 08/14/24 Rx lisinopriL [Zestril] 2.5 mg PO DAILY@1200 tab 05/24/24 08/14/24 Rx ALPRAZolam [Xanax] 2 mg PO HS 07/27/24 08/14/24 History HYDROcodone/APAP 10-325MG [[place] 1 tab PO BID PRN 07/27/24 08/14/24 History 10-325] Allergies Allergy/AdvReac Type Severity Reaction Status Date / Time latex Allergy Swelling Verified 08/14/24 06:49 atorvastatin [From Lipitor] AdvReac JOINT PAIN Verified 08/14/24 06:49 Physical Exam Vitals: Vital Signs Temp Pulse Resp BP Pulse Ox 08/14/24 08:23 98.1 F 08/14/24 07:44 80 18 106/79 100 08/14/24 06:00 76 18 116/59 93 L 08/14/24 04:42 98.1 F 81 18 119/73 95 Intake and Output 08/13/24 08/14/24 08/14/24 22:59 06:59 14:59 Other: Weight 117.934 kg Results 08/14/24 04:55 08/14/24 04:55 Cardiac Enzymes 08/14/24 08/14/24 08/14/24 Range/Units 04:55 04:55 09:59 AST 34 (17-59) U/L Troponin I 0.016 0.015 (0.000-0.034) ng/mL Coagulation 08/14/24 Range/Units 04:55 PT 10.8 (10.0-12.5) sec APTT 24.8 (22.0-30.0) sec CBC 08/14/24 Range/Units 04:55 WBC 5.3 (3.8-10.6) k/uL RBC 4.54 (4.30-5.90) m/uL Hgb 11.4 L (13.0-17.5) gm/dL Hct 37.3 L (39.0-53.0) % Plt Count 182 (150-450) k/uL Comprehensive Metabolic Panel 08/14/24 Range/Units 04:55 Sodium 140 (137-145) mmol/L Potassium 4.0 (3.5-5.1) mmol/L Chloride 109 H (98-107) mmol/L Carbon Dioxide 20 L (22-30) mmol/L BUN 16 (9-20) mg/dL Creatinine 0.80 (0.66-1.25) mg/dL Glucose 90 (74-99) mg/dL Calcium 9.6 (8.4-10.2) mg/dL AST 34 (17-59) U/L ALT 15 (4-49) U/L Alkaline Phosphatase 144 H (38-126) U/L Total Protein 7.9 (6.3-8.2) g/dL Albumin 4.1 (3.5-5.0) g/dL Current Medications Generic Name Dose Route Start Last Admin Trade Name Freq PRN Reason Stop Dose Admin Acetaminophen 650 mg 08/14/24 06:23 Acetaminophen Tab 325 Mg Tab PO Q6HR PRN Mild Pain or Fever > 100.5 Apixaban 2.5 mg 08/14/24 09:00 08/14/24 08:21 Apixaban 2.5 Mg Tablet PO 2.5 mg BID ELINAA Administration Protocol Atorvastatin Calcium 40 mg 08/14/24 09:00 08/14/24 08:20 Atorvastatin 40 Mg Tab PO 40 mg DAILY ELIANA Administration Clopidogrel Bisulfate 75 mg 08/14/24 09:00 08/14/24 08:21 Clopidogrel 75 Mg Tab PO 75 mg DAILY ELIANA Administration Dapagliflozin 10 mg 08/14/24 09:00 08/14/24 08:21 Dapagliflozin Propanediol 10 Mg Tablet PO 10 mg DAILY ELIANA Administration Ezetimibe 10 mg 08/14/24 09:00 08/14/24 08:21 Ezetimibe 10 Mg Tab PO 10 mg DAILY ELIANA Administration Furosemide 40 mg 08/14/24 09:00 08/14/24 08:21 Furosemide 40 Mg Tab PO 40 mg DAILY ELIANA Administration Lisinopril 2.5 mg 08/14/24 12:00 Lisinopril 2.5 Mg Tab PO DAILY@1200 [facility] Metoprolol Tartrate 12.5 mg 08/14/24 09:00 08/14/24 08:20 Metoprolol Tartrate 12.5 Mg Tab PO 12.5 mg BID ELIANA Administration Morphine Sulfate 4 mg 08/14/24 06:23 08/14/24 06:49 Morphine Sulfate 4 Mg/Ml Syringe IV 4 mg Q4HR PRN Administration Severe Pain (Scale 7 to 10) Naloxone HCl 0.2 mg 08/14/24 06:23 Naloxone 0.4 Mg/Ml 1 Ml Vial IV Q2M PRN Opioid Reversal Ondansetron HCl 4 mg 08/14/24 06:23 Ondansetron 4 Mg/2 Ml Vial IVP Q8HR PRN Nausea And Vomiting Potassium Chloride 10 meq 08/14/24 09:00 08/14/24 08:20 Potassium Chloride Er 10 Meq Tab.Er.Prt PO 10 meq DAILY ELIANA Administration Intake and Output 08/13/24 08/14/24 08/14/24 22:59 06:59 14:59 Other: Weight 117.934 kg 08/14/24 04:55 08/14/24 04:55
--- NOTE | 2024-08-15 04:19 | HP ---
HISTORY AND PHYSICAL CHIEF COMPLAINT: Chest pain and shortness of breath. HISTORY OF PRESENT ILLNESS: Another admission for this 69-year-old white male with end-stage coronary artery disease and CHF. Recently underwent a 2nd coronary artery bypass graft, but since then has had problems with congestive heart failure, chest pain, and recurrent right pleural effusion. He came to the emergency room complaining of chest pain and shortness of breath. He was admitted. Consults to be obtained with Cardiology and Pulmonology. REVIEW OF SYSTEMS: Unremarkable. Past medical history, family history, personal and social histories were all unchanged. PHYSICAL EXAMINATION: VITAL SIGNS: Atrial fibrillation with a blood pressure of 101/55. GENERAL: He was pale. HEAD, EARS, EYES, NOSE, MOUTH AND THROAT: Otherwise normal. CHEST: Rales anteriorly and posteriorly. CARDIAC: S4 with atrial fibrillation. ABDOMEN: Soft and nontender. EXTREMITIES: Normal. NEUROLOGICAL: Intact. DIAGNOSES: He is admitted to the hospital with diagnoses of, 1. Acute on chronic congestive heart failure. 2. Atherosclerotic cardiomyopathy. 3. Atrial fibrillation. 4. Chronic obstructive pulmonary disease. 5. Right pleural effusion. PLAN: 1. Bed rest. 2. IV fluids. 3. Consult Pulmonology for thoracentesis and Cardiology. MMODL / IJN: [id number] /
--- NOTE | 2024-08-16 04:11 | DS ---
DISCHARGE SUMMARY CHIEF COMPLAINT: Chest pain and shortness of breath. HISTORY OF PRESENT ILLNESS AND PHYSICAL EXAMINATION: Details of this man's history and physical can be found in the initial workup. LABORATORY STUDIES: While he was in the hospital, he had laboratory studies, details of which can be found in the laboratory section of his chart. COURSE IN THE HOSPITAL: After admission, he was placed on bedrest and started on IV fluids. He was to be seen by Pulmonology and Cardiology. He was to undergo another thoracentesis from the right side of the chest. Before he was seen, he signed out AMA. FINAL DIAGNOSES: 1. Acute on chronic congestive heart failure. 2. Atherosclerotic cardiomyopathy. 3. Right pleural effusion. 4. Chronic obstructive pulmonary disease. OPERATIONS: None. CONSULTATION: None. He signed out AMA. REYNALDO / CALLI: [id number] /
== END 2024-08-14 13:50 | disposition left against medical advice (07) ==
LOC: EC 04:41 → 6NMEDSUR 06:23
PROVIDERS: ADMIT Family Medicine; ATTEND Family Medicine
DX: I50.23 Acute on chronic systolic (congestive) heart failure (principal); J44.9 Chronic obstructive pulmonary disease, unspecified; Z53.29 Procedure and treatment not carried out because of patient's decision for other reasons; I25.5 Ischemic cardiomyopathy; I25.10 Atherosclerotic heart disease of native coronary artery without angina pectoris; M79.601 Pain in right arm; M79.602 Pain in left arm; I13.0 Hypertensive heart and chronic kidney disease with heart failure and stage 1 through stage 4 chronic kidney disease, or unspecified chronic kidney disease; N18.9 Chronic kidney disease, unspecified; I48.0 Paroxysmal atrial fibrillation; E78.5 Hyperlipidemia, unspecified; I25.2 Old myocardial infarction; G47.30 Sleep apnea, unspecified; K21.9 Gastro-esophageal reflux disease without esophagitis; M19.90 Unspecified osteoarthritis, unspecified site; F43.10 Post-traumatic stress disorder, unspecified; F32.A Depression, unspecified; F41.9 Anxiety disorder, unspecified; Z87.891 Personal history of nicotine dependence; Z79.01 Long term (current) use of anticoagulants; Z79.02 Long term (current) use of antithrombotics/antiplatelets; Z79.899 Other long term (current) drug therapy; Z79.84 Long term (current) use of oral hypoglycemic drugs; Z91.040 Latex allergy status; Z83.3 Family history of diabetes mellitus
CPT/HCPCS: 96376; 96374; 96375; 99285; 36415; 93005; 80053; 83690; 83735; 84484; 85025; 85610; 85730; 71046; G0378; J2270; J1940

== ENCOUNTER 2024-08-16 21:21 | Observation (INO) | payer MEDICARE, OTHER ==
--- NOTE | 2024-08-16 21:43 | ED ---
Chest Pain HPI - General Chief Complaint: Chest Pain Stated Complaint: MICKIE HOLDER Time Seen by Provider: 08/16/24 21:30 Source: EMS Mode of arrival: EMS Limitations: no limitations - History of Present Illness Initial Comments: Patient is a 69-year-old man with history of previous CAD and also pulmonary fusion, who presents with complaint that about an hour ago he was sitting at his daughter's house when he became very short of breath. He thought that it may be related to the pleural effusion in the right lung. He states that shortly after that he also had chest pain in the right upper chest radiating toward the left side as well. He states he has had the symptoms before when he is shortness of breath. When they did not resolve, ambulance was called and he was transported here. Patient states that he does feel better with the oxygen that was applied MD Complaint: chest pain, other (Dyspnea) Onset/Timin -: hour(s) Onset: during rest Pain Location: right chest Pain Radiation: other Severity: moderate Quality: aching Consistency: now resolved Improves With: other (oxygen) Worsens With: nothing Context: other Anginal Symptoms: dyspnea Treatments Prior to Arrival: oxygen - Related Data Home Medications Medication Instructions Recorded Confirmed Fluticasone Nasal [place] [Flonase 1 spray EA NOSTRIL BID PRN 01/27/23 08/17/24 Nasal [place]] Clopidogrel [Plavix] 75 mg PO DAILY 08/21/23 08/17/24 Cyclobenzaprine [Flexeril] 10 mg PO BID 08/21/23 08/17/24 Ergocalciferol [Vitamin D2 (1250 1,250 mcg PO QMONTHLY 05/10/24 08/17/24 Mcg = 00440 Iu)] Ferrous Sulfate [Iron (65 MG 325 mg PO DAILY 05/10/24 08/17/24 Elemental)] Gabapentin [Neurontin] 100 mg PO TID 05/10/24 08/17/24 ALPRAZolam [Xanax] 2 mg PO HS 07/27/24 08/17/24 Nitroglycerin Sl Tabs [Nitrostat] 0.4 mg SUBLINGUAL Q5M PRN 08/17/24 08/17/24 Previous Rx's Medication Instructions Recorded Apixaban [Eliquis] 2.5 mg PO BID #60 tab 11/18/22 Ezetimibe [Zetia] 10 mg PO DAILY #90 tab 11/18/22 Sodium Bicarbonate Tab 650 mg PO TID #100 tab 01/25/24 Atorvastatin [Lipitor] 40 mg PO DAILY tab 05/24/24 Budesonide [Pulmicort] 1 mg INHALATION RT-BID ml 05/24/24 Dapagliflozin Propanediol [Farxiga] 10 mg PO DAILY tab 05/24/24 Formoterol Fumarate [Perforomist] 20 mcg INHALATION RT-BID ml 05/24/24 Ipratropium-Albuterol Nebulize 3 ml INHALATION RT-Q2H PRN each 05/24/24 [Duoneb 0.5 mg-3 mg/3 ml Soln] Metoprolol Tartrate [Lopressor] 12.5 mg PO BID tab 05/24/24 Pantoprazole [Protonix] 40 mg PO AC-BRKFST tab 05/24/24 Potassium Chloride ER [K-Dur 10] 10 meq PO DAILY #30 tab 05/24/24 Spironolactone [Aldactone] 12.5 mg PO DAILY tab 05/24/24 lisinopriL [Zestril] 2.5 mg PO DAILY@1200 tab 05/24/24 Furosemide [Lasix] 40 mg PO DAILY #30 tablet 08/18/24 HYDROcodone/APAP 10-325MG [[place] 1 tab PO Q6H PRN #9 tab 08/18/24 10-325] Allergies Allergy/AdvReac Type Severity Reaction Status Date / Time latex Allergy Swelling Verified 08/17/24 18:21 atorvastatin [From Lipitor] AdvReac JOINT PAIN Verified 08/17/24 18:21 Review of Systems ROS Statement: Those systems with pertinent positive or pertinent negative responses have been documented in the HPI. ROS Other: All systems not noted in ROS Statement are negative. Constitutional: Denies: fever, chills, weakness Respiratory: Reports: as per HPI, dyspnea. Denies: cough, wheezes Cardiovascular: Reports: as per HPI, chest pain. Denies: palpitations, orthopnea, edema, syncope Gastrointestinal: Denies: abdominal pain, nausea, vomiting, diarrhea Genitourinary: Denies: dysuria, hematuria Musculoskeletal: Denies: back pain Skin: Denies: rash Neurological: Denies: headache, weakness EKG Findings - EKG Comments: EKG Findings:: Probable old inferior VA. Old anterolateral infarct. - EKG Results: EKG: interpreted by ERMD, normal axis EKG shows: atrial fibrillation (With PVC, rate approximately 87 bpm) Past Medical History Past Medical History: Coronary Artery Disease (CAD), Chest Pain / Angina, Heart Failure, COPD, GERD/Reflux, Hyperlipidemia, Hypertension, Myocardial Infarction ([place]), Osteoarthritis (OA), Sleep Apnea/CPAP/BIPAP Additional Past Medical History / Comment(s): Chronic back pain, left leg weakness. No device use for Sleep Apnea, states uses O2 at night only. Recent SOB, edema lower extremitries. States unsure about having had a heart attack. Last Myocardial Infarction Date:: 11/11/22 History of Any Multi-Drug Resistant Organisms: None Reported Past Surgical History: Back Surgery, Cholecystectomy, Coronary Bypass/CABG, Heart Catheterization With Stent, Orthopedic Surgery Additional Past Surgical History / Comment(s): Back surgery X2 with cage, left tennis elbow surgery, heart stents X7, colonoscopy, lasik eye surgery [place],. emergency CABG [facility], thrombectomy. Past Anesthesia/Blood Transfusion Reactions: No Reported Reaction Additional Past Anesthesia/Blood Transfusion Reaction / Comment(s): Pt received blood during CABG without reaction. Date of Last Stent Placement:: Oct 2022 Past Psychological History: Anxiety, Depression, PTSD Smoking Status: Former smoker Past Alcohol Use History: None Reported Past Drug Use History: None Reported - Past Family History Father Family Medical History: Coronary Artery Disease (CAD), Deep Vein Thrombosis (DVT), GERD/Reflux, Hyperlipidemia, Myocardial Infarction (VA) Additional Family Medical History / Comment(s): Father of a VA in his 80's. Mother Family Medical History: Coronary Artery Disease (CAD), Myocardial Infarction ([place]) Additional Family Medical History / Comment(s): Mother of a VA. Brother(s) Family Medical History: Myocardial Infarction ([place]) Additional Family Medical History / Comment(s): . Sister(s) Family Medical History: Cancer, Diabetes Mellitus Additional Family Medical History / Comment(s): Lung cancer. Other sister had Diabetes. General Exam Limitations: no limitations General appearance: alert, in no apparent distress Head exam: Present: atraumatic, normocephalic Eye exam: Present: normal appearance. Absent: scleral icterus, conjunctival injection Neck exam: Present: normal inspection, full ROM Respiratory exam: Present: normal lung sounds bilaterally, chest wall tenderness. Absent: respiratory distress, wheezes, rales, rhonchi, stridor, accessory muscle use Cardiovascular Exam: Present: normal rhythm, irregular rhythm, normal heart sounds. Absent: systolic murmur, diastolic murmur, rubs, gallop GI/Abdominal exam: Present: soft. Absent: distended, tenderness, guarding, rebound, rigid, mass Extremities exam: Present: normal inspection, normal capillary refill. Absent: pedal edema, calf tenderness Back exam: Present: normal inspection. Absent: CVA tenderness (R), CVA tenderness (L) Neurological exam: Present: alert Skin exam: Present: warm, dry, intact, normal color. Absent: rash Course Vital Signs 08/16/24 08/16/24 08/17/24 21:22 22:30 02:00 Temperature 98.7 F Pulse Rate 88 81 86 Pulse Rate [ Left] Respiratory 20 18 18 Rate Blood Pressure 126/68 101/55 117/58 Blood Pressure [Right Arm] O2 Sat by Pulse 98 99 98 Oximetry 08/17/24 08/17/24 08/17/24 04:00 06:00 07:56 Temperature Pulse Rate 87 89 89 Pulse Rate [ Left] Respiratory 18 18 Rate Blood Pressure 105/63 124/82 Blood Pressure [Right Arm] O2 Sat by Pulse 96 95 Oximetry 08/17/24 08/17/24 08/17/24 08:00 08:05 09:20 Temperature Pulse Rate 88 89 Pulse Rate [ Left] Respiratory 18 Rate Blood Pressure 100/76 Blood Pressure [Right Arm] O2 Sat by Pulse 98 96 Oximetry 08/17/24 08/17/24 08/17/24 15:00 16:00 17:13 Temperature 97.6 F 97.9 F Pulse Rate 89 89 89 Pulse Rate [ Left] Respiratory 17 18 18 Rate Blood Pressure 109/61 105/63 115/68 Blood Pressure [Right Arm] O2 Sat by Pulse 94 L 95 94 L Oximetry 08/17/24 20:00 Temperature 98.4 F Pulse Rate Pulse Rate [ 83 Left] Respiratory 18 Rate Blood Pressure Blood Pressure 112/71 [Right Arm] O2 Sat by Pulse 94 L Oximetry Chest Pain MDM - MDM Had chest x-ray that I interpreted to show presence of moderate pleural effusion. Was pt. sent in by a medical professional or institution (ROBERT Zelaya, [employer], urgent care, hospital, or assisted...) When possible be specific @ -[No] Did you speak to anyone other than the patient for history (EMS, parent, family, police, friend...)? What history was obtained from this source @ -[No] Did you review nursing and triage notes (agree or disagree)? Why? @ -[I reviewed and agree with nursing and triage notes] Were old charts reviewed (outside hosp., previous admission, EMS record, old EKG, old radiological studies, urgent care reports/EKG's, assisted records)? Report findings @ -[No old charts were reviewed] Differential Diagnosis (chest pain, altered mental status, abdominal pain women, abdominal pain men, vaginal bleeding, weakness, fever, dyspnea, syncope, headache, dizziness, GI bleed, back pain, seizure, CVA, palpatations, mental health, musculoskeletal)? @ -[Differential Dyspnea: Coronary syndrome, arrhythmia, tamponade, asthma, COPD, pulmonary embolism, pneumonia, pneumothorax, pulmonary effusion, anaphylaxis, diabetic ketoacidosis, flailed chest, pulmonary contusion, diaphragmatic rupture, anemia, neuromuscular, this is not meant to be an all-inclusive list. EKG interpreted by me (3pts min.). @ -[I interpreted as above] X-rays interpreted by me (1pt min.). @ -[I interpreted as above CT interpreted by me (1pt min.). @ -[None done] U/S interpreted by me (1pt. min.). @ -[None done] What testing was considered but not performed or refused? (CT, X-rays, U/S, labs)? Why? @ -[None] What meds were considered but not given or refused? Why? @ -[None] Did you discuss the management of the patient with other professionals (professionals i.e. ROBERT Zelaya, [employer], lab, RT, psych nurse, social work associate, grab hooker, teacher, police booking officer, major case detective)? Give summary @ -[Case discussed with admitting physician and treatment recommendations are incorporated Was smoking cessation discussed for >3mins.? @ -[No] Was critical care preformed (if so, how long)? @ -[No] Were there social determinants of health that impacted care today? How? (Homelessness, low income, unemployed, alcoholism, drug addiction, transportation, low edu. Level, literacy, decrease access to med. care, halfway, rehab)? @ -[No] Was there de-escalation of care discussed even if they declined (Discuss DNR or withdrawal of care, Hospice)? DNR status @ -[No] What co-morbidities impacted this encounter? (DM, HTN, Smoking, COPD, CAD, Cancer, CVA, ARF, Chemo, Hep., AIDS, mental health diagnosis, sleep apnea, morbid obesity)? @ -[None] Was patient admitted / discharged? Hospital course, mention meds given and route, prescriptions, significant lab abnormalities, going to OR and other pertinent info. @ -Patient is a 69-year-old man who presents to evaluation of dyspnea and found to have moderate pleural effusion. The patient will be admitted to have pulmonology consultation. Stable at time of admission Undiagnosed new problem with uncertain prognosis? @ -[No] Drug Therapy requiring intensive monitoring for toxicity (Heparin, Nitro, Insulin, Cardizem)? @ -[No] Were any procedures done? @ -[No] Diagnosis/symptom? @ -[Acute dyspnea Recurrent pleural effusion Acute, or Chronic, or Acute on Chronic? @ -[Acute Uncomplicated (without systemic symptoms) or Complicated (systemic symptoms)? @ -[Pleural effusion complicated by dyspnea Side effects of treatment? @ -[No] Exacerbation, Progression, or Severe Exacerbation? @ -[No] Poses a threat to life or bodily function? How? (Chest pain, [place], VA, pneumonia, PE, COPD, DKA, ARF, appy, cholecystitis, CVA, Diverticulitis, Homicidal, Suicidal, threat to staff... and all critical care pts) @ -Yes there is risk of progression to respiratory failure Disposition Clinical Impression: Chest pain, Pleural effusion Disposition: ADMITTED IP TO THIS HOSP Condition: Fair Is patient prescribed a controlled substance at d/c from ED?: No
[2024-08-16 22:00] LABS: Anisocytosis Slight; Basophils % (A) 1 %; Eosinophils # (A) 0.1 k/uL (0-0.7); Eosinophils % (A) 2 %; HCT 38.1 % (39.0-53.0); Hypochromasia Moderate; Lymphocytes # (A) 1.4 k/uL (1.0-4.8); Lymphocytes % (A) 27 %; MCH 25.3 pg (25.0-35.0); MCHC 31.4 g/dL (31.0-37.0); MCV 80.7 fL (80.0-100.0); Monocytes # (A) 0.4 k/uL (0-1.0); Monocytes % (A) 7 %; Neutrophils # (A) 3.3 k/uL (1.3-7.7); Neutrophils % (A) 61 %; Platelet Count 175 k/uL (150-450); RBC 4.73 m/uL (4.30-5.90); RDW 16.4 % (11.5-15.5); WBC 5.4 k/uL (3.8-10.6)
--- NOTE | 2024-08-16 22:02 | XR ---
EXAMINATION TYPE: XR chest 2V DATE OF EXAM: 08/16/2024 COMPARISON: 08/14/2024, CTA 07/27/2024 INDICATION: Chest pain TECHNIQUE: Frontal and lateral views of the chest are obtained. FINDINGS: The heart size is normal. The pulmonary vasculature is normal. Right lower lobe infiltrate is present. There appears to be an air-fluid level on the lateral project ion. Cavitary lesion should be considered. Consider additional evaluation with CT thorax. IMPRESSION: 1. Right pleural fluid. Air-fluid level appears to remain present. Consider cavitary lesion and addit ional workup with CT chest recommended. [facility], Workstation: [facility], 08/16/2024 9:59 PM
[2024-08-16 22:45] LABS: ALT 14 U/L (4-49); AST 31 U/L (17-59); African American GFR (CKD) >90 (>60 ml/min/1.73 sqM); Albumin 4.5 g/dL (3.5-5.0); Alkaline Phosphatase 151 U/L (38-126); Anion Gap 8 mmol/L; Blood Urea Nitrogen 19 mg/dL (9-20); Calcium 9.3 mg/dL (8.4-10.2); Carbon Dioxide 24 mmol/L (22-30); Chloride 108 mmol/L (98-107); Glucose 130 mg/dL (74-99); Magnesium 1.8 mg/dL (1.6-2.3); Non-African American GFR(CKD) 88 (>60 ml/min/1.73 sqM); Potassium 3.9 mmol/L (3.5-5.1); Sodium 140 mmol/L (137-145); Total Bilirubin 1.1 mg/dL (0.2-1.3); Total Protein 8.3 g/dL (6.3-8.2)
[2024-08-16 22:47] LABS: Partial Thromboplastin Time 20.6 sec (22.0-30.0)
[2024-08-16] MEDS: ONDANSETRON 4 MG/2 ML VIAL IVP STA (22:56)
[2024-08-17] MEDS ORDERED: SODIUM ZIRCONIUM CYCLOSILICATE 10 GM PACKET PO ONE (00:43)
[2024-08-17] MEDS: MORPHINE SULFATE 4 MG/ML SYRINGE IV STA (00:52)
[2024-08-17] MEDS ORDERED: NITROGLYCERIN SL TABS 0.4 MG TAB SUBLINGUAL PRN (02:34)
[2024-08-17] MEDS ORDERED: FLUTICASONE NASAL 50MCG/SPRAY 16GM BTL EA NOSTRIL PRN (02:40)
[2024-08-17] MEDS: HYDROcodone/APAP 10-325MG 1 EACH TAB PO PRN (03:12)
[2024-08-17] MEDS: FORMOTEROL FUMARATE 20 MCG/2 ML NEBU INHALATION SCH (07:56)
[2024-08-17] MEDS: GABAPENTIN 100 MG CAP PO SCH (09:21)
[2024-08-17] MEDS: METOPROLOL TARTRATE 12.5 MG TAB PO SCH (09:22)
[2024-08-17] MEDS: SODIUM BICARBONATE TAB 650 MG TAB PO SCH (09:22)
[2024-08-17] MEDS: ATORVASTATIN 40 MG TAB PO SCH (09:22)
[2024-08-17] MEDS: POTASSIUM CHLORIDE ER 10 MEQ TAB.ER.PRT PO SCH (09:23)
[2024-08-17] MEDS: PANTOPRAZOLE 40 MG TABLET PO SCH (09:23)
[2024-08-17] MEDS: APIXABAN 2.5 MG TABLET PO SCH (09:23)
[2024-08-17] MEDS: EZETIMIBE 10 MG TAB PO SCH (09:23)
[2024-08-17] MEDS: FUROSEMIDE 40 MG TAB PO SCH (09:24)
[2024-08-17] MEDS: CLOPIDOGREL 75 MG TAB PO SCH (09:24)
[2024-08-17] MEDS: DAPAGLIFLOZIN PROPANEDIOL 10 MG TABLET PO SCH (09:27)
[2024-08-17] MEDS: SPIRONOLACTONE 25 MG TAB PO SCH (09:28)
--- NOTE | 2024-08-17 14:33 | P.HPIM ---
History of Present Illness History of present illness; 69-year-old male with a past medical history of CAD (status post CABG and subsequently redo CABG), cardiomyopathy (EF between 25 to 30%), valvular heart disease, chronic kidney disease, proximal A-fib (on Eliquis) COPD, GERD, hyperlipidemia, hypertension, and history of pleural effusions presents with shortness of breath. Patient reports yesterday he was sitting at his daughter's house when he became very short of breath all of a sudden. Patient reports he thought it may be related to a pleural effusion in his right lung which he has had drained via thoracentesis on multiple occasions in the past. Patient reports shortly after the shortness of breath started he also had started having some chest pain that radiated towards the left side as well. Patient reports he has had similar chest pains before when he is short of breath. When the symptoms did not resolve the patient became worried and decided to call the ambulance to come to the hospital for further evaluation. Initial lab work from the ER was significant for WBC 5.4, hemoglobin 12, MCV 80.7, sodium 140, potassium 3.9, chloride 108, glucose 130, alkaline phosphatase 151, troponin 0.02--> 0.033--> 0.031, and BNP 2970. EKG done in the ER showed heart rate of 85 bpm, no ST segment elevation or depression seen, no T-wave inversions seen. Sinus rhythm with possible left atrial enlargement, probable inferior and anterior lateral UT infarction of indeterminate age ER CXR: Right pleural fluid. Air-fluid level appears to remain present. Consider cavitary lesion. Patient admitted to internal medicine service REVIEW OF SYSTEMS: CONSTITUTIONAL: No fever, no malaise, no fatigue. HEENT: No recent visual problems or hearing problems. Denied any sore throat. CARDIOVASCULAR: Admits to chest pain, orthopnea, PND, no palpitations, no syncope. PULMONARY: Admits to shortness of breath, no cough, no hemoptysis. GASTROINTESTINAL: No diarrhea, no nausea, no vomiting, no abdominal pain. NEUROLOGICAL: No headaches, no weakness, no numbness. HEMATOLOGICAL: Denies any bleeding or petechiae. GENITOURINARY: Denies any burning micturition, frequency, or urgency. MUSCULOSKELETAL/RHEUMATOLOGICAL: Denies any joint pain, swelling, or any muscle pain. ENDOCRINE: Denies any polyuria or polydipsia. The rest of the 14-point review of systems is negative. PHYSICAL EXAMINATION: GENERAL: The patient is alert and oriented x3, not in any acute distress. Well developed, well nourished. HEENT: Pupils are round and equally reacting to light. EOMI. No scleral icterus. No conjunctival pallor. Normocephalic, atraumatic. No pharyngeal erythema. No thyromegaly. CARDIOVASCULAR: S1 and S2 present. No murmurs, rubs, or gallops. PULMONARY: Chest is clear to auscultation b/l, no wheezing or crackles. ABDOMEN: Soft, nontender, nondistended, normoactive bowel sounds. No palpable organomegaly. MUSCULOSKELETAL: No joint swelling or deformity. EXTREMITIES: No cyanosis, clubbing, or pedal edema. NEUROLOGICAL: Gross neurological examination did not reveal any focal deficits. SKIN: No rashes. Assessment & Plan: Acute: #Right-sided pleural effusion: Likely secondary to systolic CHF Patient has a history of multiple thoracentesis in the past for right-sided pleural effusion Pulmonology on consult, appreciate further recommendations Patient is scheduled for thoracentesis Continue to monitor #Acute on chronic HFrEF: Continued patient's home Lasix 40 mg p.o. daily Based on continued need for constant thoracentesis, will consider discharging patient on increased dosage of Lasix Continue to monitor Chronic: #COPD: Continue home medication #GERD: Continue home medication #Hyperlipidemia: Continue home medication #Hypertension: Continue home medication #CAD (status post CABG and subsequently redo CABG) #History of CKD: Creatinine within normal limits at admission Continue to monitor F: None E: None A: Normally ambulates unassisted DVT ppx: Eliquis 2.5 mg p.o. twice daily GI ppx: Protonix 40 mg p.o. daily Dispo: Pending clinical course Justin Fabian MD PGY-1 FM Dictation was produced using [employer] dictation software. please excuse any grammatical, word or spelling errors. Past Medical History Past Medical History: Coronary Artery Disease (CAD), Chest Pain / Angina, Heart Failure, COPD, GERD/Reflux, Hyperlipidemia, Hypertension, Myocardial Infarction ([place]), Osteoarthritis (OA), Sleep Apnea/CPAP/BIPAP Additional Past Medical History / Comment(s): Chronic back pain, left leg weakness. No device use for Sleep Apnea, states uses O2 at night only. Recent SOB, edema lower extremitries. States unsure about having had a heart attack. Last Myocardial Infarction Date:: 11/11/22 History of Any Multi-Drug Resistant Organisms: None Reported Past Surgical History: Back Surgery, Cholecystectomy, Coronary Bypass/CABG, Heart Catheterization With Stent, Orthopedic Surgery Additional Past Surgical History / Comment(s): Back surgery X2 with cage, left tennis elbow surgery, heart stents X7, colonoscopy, lasik eye surgery bilaterally,. emergency CABG [facility] [place], thrombectomy. Past Anesthesia/Blood Transfusion Reactions: No Reported Reaction Additional Past Anesthesia/Blood Transfusion Reaction / Comment(s): Pt received blood during CABG without reaction. Date of Last Stent Placement:: Oct 2022 Past Psychological History: Anxiety, Depression, PTSD Smoking Status: Former smoker Past Alcohol Use History: None Reported Past Drug Use History: None Reported - Past Family History Father Family Medical History: Coronary Artery Disease (CAD), Deep Vein Thrombosis (DVT), GERD/Reflux, Hyperlipidemia, Myocardial Infarction ([place]) Additional Family Medical History / Comment(s): Father of a [place] in his 80's. Mother Family Medical History: Coronary Artery Disease (CAD), Myocardial Infarction ([place]) Additional Family Medical History / Comment(s): Mother of a [place]. Brother(s) Family Medical History: Myocardial Infarction ([place]) Additional Family Medical History / Comment(s): . Sister(s) Family Medical History: Cancer, Diabetes Mellitus Additional Family Medical History / Comment(s): Lung cancer. Other sister had Diabetes. Medications and Allergies Home Medications Medication Instructions Recorded Confirmed Type Apixaban [Eliquis] 2.5 mg PO BID #60 tab 11/18/22 08/17/24 Rx Ezetimibe [Zetia] 10 mg PO DAILY #90 tab 11/18/22 08/17/24 Rx Fluticasone Nasal [place] [Flonase 1 spray EA NOSTRIL BID PRN 01/27/23 08/17/24 History Nasal [place]] Clopidogrel [Plavix] 75 mg PO DAILY 08/21/23 08/17/24 History Cyclobenzaprine [Flexeril] 10 mg PO BID 08/21/23 08/17/24 History Sodium Bicarbonate Tab 650 mg PO TID #100 tab 01/25/24 08/17/24 Rx Ergocalciferol [Vitamin D2 (1250 1,250 mcg PO QMONTHLY 05/10/24 08/17/24 History Mcg = 35825 Iu)] Ferrous Sulfate [Iron (65 MG 325 mg PO DAILY 05/10/24 08/17/24 History Elemental)] Gabapentin [Neurontin] 100 mg PO TID 05/10/24 08/17/24 History Atorvastatin [Lipitor] 40 mg PO DAILY tab 05/24/24 08/17/24 Rx Budesonide [Pulmicort] 1 mg INHALATION RT-BID ml 05/24/24 08/17/24 Rx Dapagliflozin Propanediol [Farxiga] 10 mg PO DAILY tab 05/24/24 08/17/24 Rx Formoterol Fumarate [Perforomist] 20 mcg INHALATION RT-BID ml 05/24/24 08/17/24 Rx Furosemide [Lasix] 40 mg PO DAILY #30 tablet 05/24/24 08/17/24 Rx Ipratropium-Albuterol Nebulize 3 ml INHALATION RT-Q2H PRN each 05/24/24 08/17/24 Rx [Duoneb 0.5 mg-3 mg/3 ml Soln] Metoprolol Tartrate [Lopressor] 12.5 mg PO BID tab 05/24/24 08/17/24 Rx Pantoprazole [Protonix] 40 mg PO AC-BRKFST tab 05/24/24 08/17/24 Rx Potassium Chloride ER [K-Dur 10] 10 meq PO DAILY #30 tab 05/24/24 08/17/24 Rx Spironolactone [Aldactone] 12.5 mg PO DAILY tab 05/24/24 08/17/24 Rx lisinopriL [Zestril] 2.5 mg PO DAILY@1200 tab 05/24/24 08/17/24 Rx ALPRAZolam [Xanax] 2 mg PO HS 07/27/24 08/17/24 History HYDROcodone/APAP 10-325MG [[place] 1 tab PO BID PRN 07/27/24 08/17/24 History 10-325] Nitroglycerin Sl Tabs [Nitrostat] 0.4 mg SUBLINGUAL Q5M PRN 08/17/24 08/17/24 History Allergies Allergy/AdvReac Type Severity Reaction Status Date / Time latex Allergy Swelling Verified 08/16/24 21:24 atorvastatin [From Lipitor] AdvReac JOINT PAIN Verified 08/16/24 21:24 Physical Exam Vitals: Vital Signs Temp Pulse Resp BP Pulse Ox 08/17/24 06:00 89 18 124/82 95 08/17/24 04:00 87 18 105/63 96 08/17/24 02:00 86 18 117/58 98 08/16/24 22:30 98.7 F 81 18 101/55 99 08/16/24 21:22 88 20 126/68 98 Intake and Output 08/16/24 08/17/24 08/17/24 22:59 06:59 14:59 Other: Weight 117.934 kg Results CBC & Chem 7: 08/16/24 21:21 08/16/24 21:21 Labs: Abnormal Lab Results - Last 24 Hours (Table) 08/16/24 08/16/24 08/16/24 Range/Units 21:21 21:21 21:21 Hgb 12.0 L (13.0-17.5) gm/dL Hct 38.1 L (39.0-53.0) % RDW 16.4 H (11.5-15.5) % APTT 20.6 L (22.0-30.0) sec Chloride 108 H (98-107) mmol/L Glucose 130 H (74-99) mg/dL Alkaline Phosphatase 151 H (38-126) U/L Total Protein 8.3 H (6.3-8.2) g/dL
[2024-08-17] MEDS: HYDROcodone/APAP 10-325MG 1 EACH TAB PO ONE (21:44)
[2024-08-17] MEDS: ALPRAZolam 1 MG TAB PO SCH (22:50)
[2024-08-18 07:04] VITALS: BP 104/65; PULSE 77; RESP 16; TEMP 98
[2024-08-18 09:59] LABS: Chol/HDL Ratio 3.16 Ratio; LDL Cholesterol,Calculated 42.6 mg/dL (0.0-131.0)
[2024-08-18] MEDS: HYDROcodone/APAP 10-325MG 1 EACH TAB PO ONE (11:43)
[2024-08-18] MEDS: ASPIRIN 325 MG TAB PO SCH (12:01)
--- NOTE | 2024-08-18 12:18 | XR ---
EXAMINATION TYPE: XR chest 1V DATE OF EXAM: 08/18/2024 COMPARISON: 07/27/2024 HISTORY: Post drainage TECHNIQUE: Single frontal view of the chest is obtained. FINDINGS: There is a persistent small right pleural effusion which is possibly loculated. The left lung is clear. There is moderate cardiomegaly and mild pulmonary vascular congestion. There is median sternotomy wires there is no pneumothorax IMPRESSION: No significant interval change in the small right pleural effusion which is possibly loc ulated. [facility], , 08/18/2024 12:16 PM
--- NOTE | 2024-08-18 14:04 | P.PN ---
Subjective Progress Note Date: 08/18/24 this is a 69-year-old male patient is coming in for worsening shortness of breath and recurrent right-sided pleural effusion. The patient is known to me from previous hospital admissions. The patient is known to have coronary artery disease and the patient has undergone previous coronary intervention multiple stenting for previous myocardial infarction's and the patient has undergone previous coronary artery bypass surgery around 20 years ago and more recently, in April 2024, the patient underwent two-vessel redo off-pump bypass surgery. He is known to have ischemic cardiomyopathy with an ejection fraction of around 20 to 25%. He is also known to have hypertension hyperlipidemia and left carotid artery stenosis in the order of 50 to 79%. Previous thoracentesis done on this patient on the right side showed a transudative pleural fluid with negative cytology. The patient's white cell count is at 5.4, hemoglobin is at 12 and a platelet count is 175. He was given a dose of Eliquis this morning. BUN is 19 with a creatinine of 0.9 and sodium levels at 140. Troponins are negative and a proBNP level is 2970. His most recent echocardiogram done on 11/24/2023 showed an 11 degree ejection fraction of 30 to 35%, moderate aortic insufficiency and CT of the chest that was done on 07/27/2024 confirmed the presence of right-sided pleural effusion, recurrent with some right basilar atelectasis and some changes indicating chronic liver cirrhosis and a mildly enlarged right hilar lymph node. 08/18/2024, the patient is off anticoagulation. I performed a bedside thoracentesis on this patient and a total of 1.8 L of pleural fluid was aspirated. At the end of the procedure, the patient encountered some coughing and some pleuritic chest pain and this ultimately subsided. Repeat chest x-ray showed some residual right-sided pleural effusion. No evidence of any pneumothorax. The patient is otherwise doing well. He remains on room air oxygen. No complaints. Objective - Vital Signs Vital signs: Vital Signs Temp 98.0 F 08/18/24 07:00 Pulse 77 08/18/24 07:00 Resp 16 08/18/24 07:00 BP 104/65 08/18/24 07:00 Pulse Ox 94 L 08/18/24 07:00 FiO2 Intake & Output 10/19/24 10/20/24 10/20/24 18:59 06:59 18:59 Intake Total 0 Balance 0 Weight 117.934 kg Intake: Oral 0 Other: Voiding Method Toilet Toilet # Voids 2 - Exam General Appearance the patient is calm and comfortable, no acute distress. Currently on room air oxygen Head exam was generally normal. There was no scleral icterus or corneal arcus. Mucous membranes were moist. Neck was supple and without jugular venous distension, thyromegaly, or carotid bruits. Carotids were easily palpable bilaterally. There was no adenopathy. Lung sounds are diminished and the patient has diminished breath sound right lung base along with dullness to percussion. Thoracotomy scar over the left lateral chest area is clean. The patient also has an anterior thoracotomy scar. Cardiac exam revealed the PMI to be normally situated and sized. The rhythm was regular and no extrasystoles were noted during several minutes of auscultation. The first and second heart sounds were normal and physiologic splitting of the second heart sound was noted. There were no murmurs, rubs, clicks, or gallops. Abdominal exam revealed normal bowel sounds. The abdomen was soft, non-tender, and without masses, organomegaly, or appreciable enlargement of the abdominal aorta. Examination of the extremities revealed easily palpable radial, femoral and pedal pulses. There was no cyanosis, clubbing or edema. Examination of the skin revealed no evidence of significant rashes, suspicious appearing nevi or other concerning lesions. Neurologically, the patient is awake and alert and the patient does not have any focal neurological deficit. Cranial nerves are essentially intact. - Labs CBC & Chem 7: 08/16/24 21:21 08/16/24 21:21 Labs: Abnormal Lab Results - Last 24 Hours (Table) 08/18/24 Range/Units 04:02 Triglycerides 194.00 H (0.00-149.00) mg/dL HDL Cholesterol 37.60 L (40.00-60.00) mg/dL Assessment and Plan Plan: Recurrent large right-sided pleural effusion. Status post thoracentesis with 1.8 L of fluid removed on 07/27/2024 and on 05/17/2024 with evacuation of 1.7 L of pleural fluid and was a transudate, cytology negative for malignancy. Rule out CHF. Rule out liver cirrhosis contributing to his recurrent right-sided pleural effusion. Acute on top of chronic shortness of breath secondary to above. No significant hypoxemia. Triple-vessel coronary artery disease, unstable angina with history of coronary artery disease/previous myocardial infarction/multiple stents/thrombectomy on Eliquis for anticoagulation/CABG 20 years ago, status post two-vessel redo off- pump CABG Ischemic cardiomyopathy/chronic systolic heart failure with reduced ejection fraction, EF 25-30%, repeat limited echo done yesterday demonstrates EF 20-25%, History of hypertension Hyperlipidemia, treated with Zetia, patient has muscle pain with statins, cholesterol 121, LDL 52, triglycerides 180 Left internal carotid artery stenosis, 50-79% Chronic anemia Chronic ongoing tobacco use Severe COPD , FEV1 43% of predicted Obstructive sleep apnea Chronic back pain with history of back surgery Plan H right-sided thoracentesis was done without any complications. The coagulation would be resumed. The patient can be discharged home on his home medication to be followed up on outpatient basis.
--- NOTE | 2024-08-18 14:05 | P.PCN ---
Date of Procedure: 08/18/24 Preoperative Diagnosis: Right pleural effusion Postoperative Diagnosis: Right pleural effusion Procedure(s) Performed: Right thoracentesis Anesthesia: local Surgeon: Katarina Wilson Estimated Blood Loss (ml): 0 Pathology: none sent Condition: stable Disposition: floor Operative Findings: A time out was performed and the chest x-ray was reviewed, the appropriate side was confirmed and marked. My hands were washed immediately prior to the procedure. I wore a surgical cap, mask with protective eyewear, sterile gown and sterile gloves throughout the procedure. The patient was prepped and draped in a sterile manner using chlorhexidine scrub after the appropriate level was perc ussed and confirmed by ultrasound. 1% lidocaine was used to anesthesize the skin, subcutaneous tissue, superior aspect of the rib periosteum and parietal pleura. A finder needle was then introduced over the superior aspect of the rib to locate the pleural fluid; 2colored fluid was aspirated at a depth of approximately 2 cm. A 10-blade scalpel was used to nanette the skin at the insertion site. The [id number]-[id number] needle was then introduced through the skin incision into the pleural space using negative aspiration pressure and the red colometric indicator to confirm appropriate positioning of the needle. The thoracentesis catheter was then threaded without difficulty. 1800 ml of turbid colored fluid was removed without difficulty. The catheter was then removed. No immediate complications were noted during the procedure. A post-procedure chest x-ray is pending at the time of this note. The fluid will not be sent for studies. Estimated blood loss is 0cc
--- NOTE | 2024-08-23 11:03 | P.DS ---
Providers Date of admission: 08/17/24 02:34 Expected date of discharge: 08/18/24 Attending physician: Dominic Prince Consults: 08/17/24 02:34 Consult Physician Routine Consulting Provider: Katarina Wilson Consult Reason/Comments: pleural effusion Do you want consulting provider notified?: Yes Primary care physician: Alexx Gee Hospital Course: Final diagnosis #Right-sided pleural effusion: Likely secondary to systolic CHF, continue on diuretics and follow-up with pulmonary outpatient Patient has a history of multiple thoracentesis in the past for right-sided pl eural effusion #Acute on chronic HFrEF: #COPD: Not in exacerbation #GERD: #Hyperlipidemia: #Hypertension: #CAD (status post CABG and subsequently redo CABG) #History of CKD: DVT ppx GI ppx Full code Obesity with a BMI of 38.4 Discharge disposition Patient is being discharged in a stable condition with guarded prognosis to home. Patient will follow-up with Dr. Gee in the outpatient setting upon discharge. Patient is to continue with diuretics and outpatient follow-up with pulmonary as scheduled. Total time taken is greater than 35 minutes. Hospital course This is a 69-year-old male who was recently admitted with increased shortness of breath with recent history of thoracentesis being monitored for acute CHF exacerbation. Patient evaluated by pulmonary with no plans of repeat tho racentesis at this time recommending outpatient follow-up and continue on diuretic therapy. Patient reports to feeling improved and would like to go home. Patient has been cleared and will follow-up outpatient with pulmonary in the next 1 to 2 weeks. Please refer to other consultation notes for further HPI. Currently no reports of chest pain, shortness of breath, or palpitations. Patient is afebrile. No reports of nausea or vomiting and patient is tolerating diet. Patient will be discharged home today. Physical exam: Gen: This is a 69-year-old male who is awake, alert and oriented x 3, well- developed, well-nourished, elderly appearing, obese HEENT: Head is atraumatic, normocephalic. Pupils equal, round. Sclerae is anicteric. NECK: Supple. No JVD. No lymphadenopathy. No thyromegaly. LUNGS: Diminished breath sounds bilaterally otherwise clear to auscultation. More diminished on the right. No wheezes or rhonchi. No intercostal retractions. HEART: S1, S2 are muffled ABDOMEN: Soft. Obese. Bowel sounds are present. No masses. No tenderness. EXTREMITIES: No pedal edema. No calf tenderness. NEUROLOGICAL: Patient is awake, alert and oriented x3. Cranial nerves 2 through 12 are grossly intact. Please refer to medication reconciliation sheet for a list of medications. The impression and plan of care has been dictated by Avis Prieto, Nurse Practitioner as directed. Dr. Hudson MD I have performed a history and examination and MDM of this patient, discussed the same with the dictator, and agree with the dictator's assessment and plan as written ,documented as a scribe. Based on total visit time, I have performed more than 50% of the visit. Patient Condition at Discharge: Fair Plan - Discharge Summary Discharge Rx Participant: No New Discharge Prescriptions: Continue Cyclobenzaprine [Flexeril] 10 mg PO BID Clopidogrel [Plavix] 75 mg PO DAILY Sodium Bicarbonate Tab 650 mg PO TID #100 tab Ferrous Sulfate [Iron (65 MG Elemental)] 325 mg PO DAILY Gabapentin [Neurontin] 100 mg PO TID Ergocalciferol [Vitamin D2 (1250 Mcg = 60451 Iu)] 1,250 mcg PO QMONTHLY Spironolactone [Aldactone] 12.5 mg PO DAILY tab Ipratropium-Albuterol Nebulize [Duoneb 0.5 mg-3 mg/3 ml Soln] 3 ml INHALATION RT-Q2H PRN each PRN Reason: Shortness Of Breath Or Wheezing Dapagliflozin Propanediol [Farxiga] 10 mg PO DAILY tab Atorvastatin [Lipitor] 40 mg PO DAILY tab Formoterol Fumarate [Perforomist] 20 mcg INHALATION RT-BID ml Budesonide [Pulmicort] 1 mg INHALATION RT-BID ml lisinopriL [Zestril] 2.5 mg PO DAILY@1200 tab Apixaban [Eliquis] 2.5 mg PO BID #60 tab Ezetimibe [Zetia] 10 mg PO DAILY #90 tab Fluticasone Nasal [place] [Flonase Nasal [place]] 1 spray EA NOSTRIL BID PRN PRN Reason: Allergy Symptoms Metoprolol Tartrate [Lopressor] 12.5 mg PO BID tab Pantoprazole [Protonix] 40 mg PO AC-BRKFST tab Potassium Chloride ER [K-Dur 10] 10 meq PO DAILY #30 tab ALPRAZolam [Xanax] 2 mg PO HS Nitroglycerin Sl Tabs [Nitrostat] 0.4 mg SUBLINGUAL Q5M PRN PRN Reason: Chest Pain Furosemide [Lasix] 40 mg PO DAILY #30 tablet Changed HYDROcodone/APAP 10-325MG [[place] 10-325] 1 tab PO Q6H PRN #9 tab PRN Reason: Pain Discharge Medication List Apixaban [Eliquis] 2.5 mg PO BID #60 tab 11/18/22 [Rx] Ezetimibe [Zetia] 10 mg PO DAILY #90 tab 11/18/22 [Rx] Fluticasone Nasal [place] [Flonase Nasal [place]] 1 spray EA NOSTRIL BID PRN 01/27/23 [History] Clopidogrel [Plavix] 75 mg PO DAILY 08/21/23 [History] Cyclobenzaprine [Flexeril] 10 mg PO BID 08/21/23 [History] Sodium Bicarbonate Tab 650 mg PO TID #100 tab 01/25/24 [Rx] Ergocalciferol [Vitamin D2 (1250 Mcg = 74418 Iu)] 1,250 mcg PO QMONTHLY 05/10/24 [History] Ferrous Sulfate [Iron (65 MG Elemental)] 325 mg PO DAILY 05/10/24 [History] Gabapentin [Neurontin] 100 mg PO TID 05/10/24 [History] Atorvastatin [Lipitor] 40 mg PO DAILY tab 05/24/24 [Rx] Budesonide [Pulmicort] 1 mg INHALATION RT-BID ml 05/24/24 [Rx] Dapagliflozin Propanediol [Farxiga] 10 mg PO DAILY tab 05/24/24 [Rx] Formoterol Fumarate [Perforomist] 20 mcg INHALATION RT-BID ml 05/24/24 [Rx] Ipratropium-Albuterol Nebulize [Duoneb 0.5 mg-3 mg/3 ml Soln] 3 ml INHALATION RT-Q2H PRN each 05/24/24 [Rx] Metoprolol Tartrate [Lopressor] 12.5 mg PO BID tab 05/24/24 [Rx] Pantoprazole [Protonix] 40 mg PO AC-BRKFST tab 05/24/24 [Rx] Potassium Chloride ER [K-Dur 10] 10 meq PO DAILY #30 tab 05/24/24 [Rx] Spironolactone [Aldactone] 12.5 mg PO DAILY tab 05/24/24 [Rx] lisinopriL [Zestril] 2.5 mg PO DAILY@1200 tab 05/24/24 [Rx] ALPRAZolam [Xanax] 2 mg PO HS 07/27/24 [History] Nitroglycerin Sl Tabs [Nitrostat] 0.4 mg SUBLINGUAL Q5M PRN 08/17/24 [History] Furosemide [Lasix] 40 mg PO DAILY #30 tablet 08/18/24 [Rx] HYDROcodone/APAP 10-325MG [[place] 10-325] 1 tab PO Q6H PRN #9 tab 08/18/24 [Rx] Follow up Appointment(s)/Referral(s): Alexx Gee MD [Primary Care Provider] - 1-2 days Katarina Wilson MD [STAFF PHYSICIAN] - 1 Week Activity/Diet/Wound Care/Special Instructions: Activity limited until follow-up Follow-up with primary care provider on discharge Follow-up with pulmonary outpatient Continue taking medications as prescribed Discharge Disposition: HOME SELF-CARE
== END 2024-08-18 14:06 | disposition home or self-care (01) ==
LOC: EC 21:21 → 6NMEDSUR 08-17 02:34
PROVIDERS: ADMIT Hospitalist; ATTEND Hospitalist
DX: J90 Pleural effusion, not elsewhere classified (principal); J44.9 Chronic obstructive pulmonary disease, unspecified; I13.0 Hypertensive heart and chronic kidney disease with heart failure and stage 1 through stage 4 chronic kidney disease, or unspecified chronic kidney disease; I50.23 Acute on chronic systolic (congestive) heart failure; I48.0 Paroxysmal atrial fibrillation; N18.9 Chronic kidney disease, unspecified; I25.119 Atherosclerotic heart disease of native coronary artery with unspecified angina pectoris; K74.60 Unspecified cirrhosis of liver; D63.0 Anemia in neoplastic disease; E78.5 Hyperlipidemia, unspecified; K21.9 Gastro-esophageal reflux disease without esophagitis; I25.2 Old myocardial infarction; I25.5 Ischemic cardiomyopathy; F32.A Depression, unspecified; F41.9 Anxiety disorder, unspecified; I35.1 Nonrheumatic aortic (valve) insufficiency; I65.22 Occlusion and stenosis of left carotid artery; G89.29 Other chronic pain; M54.9 Dorsalgia, unspecified; G47.33 Obstructive sleep apnea (adult) (pediatric); J98.11 Atelectasis; F43.10 Post-traumatic stress disorder, unspecified; M19.90 Unspecified osteoarthritis, unspecified site; Z79.01 Long term (current) use of anticoagulants; Z79.02 Long term (current) use of antithrombotics/antiplatelets; Z79.84 Long term (current) use of oral hypoglycemic drugs; Z79.899 Other long term (current) drug therapy; Z87.891 Personal history of nicotine dependence; Z88.8 Allergy status to other drugs, medicaments and biological substances; Z91.040 Latex allergy status; Z95.1 Presence of aortocoronary bypass graft; Z95.5 Presence of coronary angioplasty implant and graft
CPT/HCPCS: 32555; 96374; 96375; 99285; 36415; 94640 ×3; 94760; 93005; 83880; 80061; 80053; 83735; 84484 ×2; 85025; 85610; 85730; 84145; 71045; 71046; G0378 ×2; J2270; J2405

== ENCOUNTER 2024-09-04 23:58 | Observation (INO) | payer MEDICARE, OTHER ==
--- NOTE | 2024-09-05 00:33 | ED ---
General Adult HPI - General Chief complaint: Shortness of Breath Stated complaint: SOB Time Seen by Provider: 09/05/24 00:06 Source: patient Mode of arrival: ambulatory Limitations: no limitations - History of Present Illness Initial comments: Patient is a 69-year-old gentleman past medical history CAD, CHF, COPD presenting today for chest pain and shortness of breath. Started earlier this evening when patient laid down. Shortness breath worsens with lying flat and ambulation. Also endorses associated sharp chest pain across the front of his chest radiates to the back and down the left arm. Additionally abdominal pain across the upper abdomen radiographs that radiates across his abdomen. Endorses nausea for episodes of nonbloody nonbilious emesis today, 1 loose stool. Endorses intermittent dizziness over the last 3 to 4 days. No fevers or chills. Endorses cough nonproductive of sputum or hemoptysis. Took 3 aspirin prior to arrival. Does have a history of prior open heart and Evi. Endorses chronic left lower extremity numbness and there is tingling radiating from chest down to his left arm otherwise denies new numbness, weakness no changes in vision or slurred speech. - Related Data Home Medications Medication Instructions Recorded Confirmed Fluticasone Nasal Cedar [Flonase 1 spray EA NOSTRIL BID PRN 01/27/23 09/06/24 Nasal Cedar] Cyclobenzaprine [Flexeril] 10 mg PO BID 08/21/23 09/06/24 Ergocalciferol [Vitamin D2 (1250 1,250 mcg PO Q14D 05/10/24 09/06/24 Mcg = 75510 Iu)] Ferrous Sulfate [Iron (65 MG 325 mg PO DAILY 05/10/24 09/06/24 Elemental)] Gabapentin [Neurontin] 100 mg PO TID 05/10/24 09/06/24 ALPRAZolam [Xanax] 2 mg PO HS 07/27/24 09/06/24 Albuterol Inhaler [Ventolin Hfa 1 - 2 puff INHALATION RT-Q6H PRN 09/05/24 09/06/24 Inhaler] Aspirin EC [Ecotrin Low Dose] 81 mg PO DAILY 09/05/24 09/06/24 Folic Acid 1 mg PO DAILY 09/05/24 09/06/24 Omeprazole [PriLOSEC] 20 mg PO DAILY 09/05/24 09/06/24 Tamsulosin [Flomax] 0.4 mg PO DAILY 09/05/24 09/06/24 allopurinoL [Zyloprim] 100 mg PO DAILY 09/05/24 09/06/24 rOPINIRole HCL [Requip] 0.25 mg PO HS 09/05/24 09/06/24 Previous Rx's Medication Instructions Recorded Ezetimibe [Zetia] 10 mg PO DAILY #90 tab 11/18/22 Sodium Bicarbonate Tab 650 mg PO TID #100 tab 01/25/24 Dapagliflozin Propanediol [Farxiga] 10 mg PO DAILY tab 05/24/24 Ipratropium-Albuterol Nebulize 3 ml INHALATION RT-Q2H PRN each 05/24/24 [Duoneb 0.5 mg-3 mg/3 ml Soln] Apixaban [Eliquis] 5 mg PO BID #60 tab 09/09/24 Sacubitril/Valsartan [Entresto 24 1 each PO BID #60 tab 09/09/24 mg-26 mg Tablet] oxyCODONE-APAP 10-325MG [Percocet 1 each PO Q4HR PRN #18 tab 09/09/24 10-325 mg] Metoprolol Succinate (ER) [Toprol 25 mg PO DAILY 30 Days #30 tab 09/11/24 XL] Spironolactone [Aldactone] 12.5 mg PO DAILY 30 Days #15 tab 09/11/24 Allergies Allergy/AdvReac Type Severity Reaction Status Date / Time latex Allergy Swelling Verified 09/06/24 12:33 atorvastatin [From Lipitor] AdvReac JOINT PAIN Verified 09/06/24 12:33 Review of Systems ROS Statement: Those systems with pertinent positive or pertinent negative responses have been documented in the HPI. ROS Other: All systems not noted in ROS Statement are negative. Past Medical History Past Medical History: Coronary Artery Disease (CAD), Chest Pain / Angina, Heart Failure, COPD, GERD/Reflux, Hyperlipidemia, Hypertension, Myocardial Infarction (PA), Osteoarthritis (OA), Sleep Apnea/CPAP/BIPAP Additional Past Medical History / Comment(s): Chronic back pain, left leg weakness. No device use for Sleep Apnea, states uses O2 at night only. Recent SOB, edema lower extremitries. States unsure about having had a heart attack. Last Myocardial Infarction Date:: 11/11/22 History of Any Multi-Drug Resistant Organisms: None Reported Past Surgical History: Back Surgery, Cholecystectomy, Coronary Bypass/CABG, Heart Catheterization With Stent, Orthopedic Surgery Additional Past Surgical History / Comment(s): Back surgery X2 with cage, left tennis elbow surgery, heart stents X7, colonoscopy, lasik eye surgery bilaterally,. emergency CABG [facility], thrombectomy. Past Anesthesia/Blood Transfusion Reactions: No Reported Reaction Additional Past Anesthesia/Blood Transfusion Reaction / Comment(s): Pt received blood during CABG without reaction. Date of Last Stent Placement:: Oct 2022 Past Psychological History: Anxiety, Depression, PTSD Smoking Status: Former smoker Past Alcohol Use History: None Reported Past Drug Use History: None Reported - Past Family History Father Family Medical History: Coronary Artery Disease (CAD), Deep Vein Thrombosis (DVT), GERD/Reflux, Hyperlipidemia, Myocardial Infarction (PA) Additional Family Medical History / Comment(s): Father of a PA in his 80's. Mother Family Medical History: Coronary Artery Disease (CAD), Myocardial Infarction (PA) Additional Family Medical History / Comment(s): Mother of a PA. Brother(s) Family Medical History: Myocardial Infarction (PA) Additional Family Medical History / Comment(s): . Sister(s) Family Medical History: Cancer, Diabetes Mellitus Additional Family Medical History / Comment(s): Lung cancer. Other sister had Diabetes. General Exam - General Exam Comments Initial Comments: PE: CONSTITUTIONAL: Mild distress, ill-appearing, pale SKIN: Generalized pallor, warm, dry, no jaundice, hives or petechiae EYES: Pupils are equally round, extraocular movements intact without nystagmus, clear conjunctiva, non-icteric sclera HENT: Normocephalic, atraumatic, moist mucus membranes, oropharynx clear without exudates NECK: , Full range of motion, normal appearance PULMONARY: Decreased breath sounds in the right lung base, otherwise clear to au scultation without wheezes, rhonchi, or rales, normal excursion, no accessory muscle use and no stridor CARDIOVASCULAR: Regular rate, rhythm, normal S1 and S2. No appreciated murmurs, rubs or gallops. Strong 2+ radial and 2+ dorsalis pedis pulses with intact distal perfusion. No lower extremity edema GASTROINTESTINAL: Soft, active bowel sounds throughout, non-tender, non- distended, no palpable masses, no rebound or guarding. No hepatosplenomegaly MUSCULOSKELETAL: Extremities have no gross deformity, no edema, redness, or swelling. No calf swelling NEUROLOGIC:_a/o x 3, GCS 15, normal mentation and speech. Moves all extremities x 4 without motor or sensory deficit PSYCHIATRIC:_normal mood and affect, thought process is clear and linear Limitations: no limitations Course Vital Signs 09/05/24 09/05/24 09/05/24 00:00 00:54 01:04 Temperature 97.4 F L Pulse Rate 87 79 Pulse Rate [ Bilateral] Respiratory 20 18 18 Rate Blood Pressure 131/67 124/61 Blood Pressure [Supine] O2 Sat by Pulse 93 L 96 Oximetry 09/05/24 09/05/24 09/05/24 05:32 06:36 08:12 Temperature 97.9 F Pulse Rate 72 77 Pulse Rate [ 75 Bilateral] Respiratory 20 18 18 Rate Blood Pressure 112/66 120/95 Blood Pressure 95/66 [Supine] O2 Sat by Pulse 96 96 97 Oximetry 09/05/24 11:51 Temperature 98.1 F Pulse Rate Pulse Rate [ 77 Bilateral] Respiratory 18 Rate Blood Pressure Blood Pressure 120/69 [Supine] O2 Sat by Pulse 99 Oximetry EKG Findings - EKG Comments: EKG Findings:: EKG performed at 12:09 AM, shows sinus rhythm, rate 81 bpm, NE interval 142 ms, QRS duration 111 ms, QT/QTc 420/457 ms, normal axis, no significant ST elevations or depressions artifact throughout. EKG performed on 08/18/2024 no significant changes from prior. EKG repeated at 12:16 AM due to artifact on first EKG, sinus rhythm, rate 82 bpm, NE interval 141 ms, QRS duration 110 ms, QT/QTc 444/442 ms, no obvious new ST elevations or depressions compared to prior though comparison limited by artifact on initial EKG Medical Decision Making - Medical Decision Making Was pt. sent in by a medical professional or institution (, PA, STUMPER FELLER, urgent care, hospital, or long-term...) When possible be specific @ -No Did you speak to anyone other than the patient for history (EMS, parent, family, police, friend...)? What history was obtained from this source @ -No Did you review nursing and triage notes (agree or disagree)? Why? @ -I reviewed and agree with nursing and triage notes Were old charts reviewed (outside hosp., previous admission, EMS record, old EKG, old radiological studies, urgent care reports/EKG's, long-term records)? Report findings @Medical records reviewed, I did review patient's chest CTA from 07/27/2024 which appears to show pleural effusion similar to today's noted on CT Differential Diagnosis (chest pain, altered mental status, abdominal pain women, abdominal pain men, vaginal bleeding, weakness, fever, dyspnea, syncope, headache, dizziness, GI bleed, back pain, seizure, CVA, palpatations, mental health, musculoskeletal)? @ -Differential Chest Pain: Stable Angina, Unstable Angina, STEMI, NSTEMI Aortic Dissection, pericarditis, pleurisy, chostochondirits, Pneumothorax, Musculoskeletal, Esophageal Spasm GERD, Cholecystitis, Pancreatitis, Zoster, this is not meant to be an all-inclusive list. EKG interpreted by me (3pts min.). @ -As above X-rays interpreted by me (1pt min.). @ -None done CT interpreted by me (1pt min.). @ -No evidence of dissection, large pleural effusion in the right lung field U/S interpreted by me (1pt. min.). @ -None done What testing was considered but not performed or refused? (CT, X-rays, U/S, labs)? Why? @ -None What meds were considered but not given or refused? Why? @ -None Did you discuss the management of the patient with other professionals (pr ofessionals i.e. , PA, STUMPER FELLER, lab, RT, psych nurse, social research assistant, school traffic guard, teacher, aoc plans intelligence officer, egg caser)? Give summary @ -No Was smoking cessation discussed for >3mins.? @ -No Was critical care preformed (if so, how long)? @Yes, 35 minutes Were there social determinants of health that impacted care today? How? (Homelessness, low income, unemployed, alcoholism, drug addiction, transportati on, low edu. Level, literacy, decrease access to med. care, half-way, rehab)? @ -No Was there de-escalation of care discussed even if they declined (Discuss DNR or withdrawal of care, Hospice)? @ -No What co-morbidities impacted this encounter? (DM, HTN, Smoking, COPD, CAD, Cancer, CVA, ARF, Chemo, Hep., AIDS, mental health diagnosis, sleep apnea, morbid obesity)? @ -COPD, CAD, HTN, HLD Was patient admitted / discharged? Hospital course, mention meds given and route, prescriptions, significant lab abnormalities, going to OR and other pertinent info. @Admission- 69-year-old gentleman past medical history of CAD, COPD, CHF, hyperlipidemia, hypertension presenting for 1 day of chest pain and shortness of breath. Onset assessment patient is in mild distress, tachypneic, pale, and ill appearing. LCTAB, no LE edema, 2+ pulses in all 4 extremities, no murmurs rubs or gallops on cardiac exam. Due to chest pain radiating to back and associated shortness of breath dissection study was ordered, additionally ordered morphine for pain control. On reassessment patient remained painful, ordered Dilaudid. CT showed no evidence of aortic dissection or aneurysm, prior CABG similar appearance to prior, moderate right and small left pleural effusion similar to prior with associated atelectasis, nodular cirrhotic liver, stable and stable mildly enlarged pretracheal lymph nodes 1.2 cm with multiple small and mildly enlarged mediastinal and hilar nodes. Of note CT scan did show colonic wall thickening at the mid transverse colon and the anterior wall up to 8 mm, nonspecific and may relate to partial distention similar appearance on prior correlate with priors available and consider colonoscopy as malignancy is not excluded. I discussed this finding with the patient and we discussed the imp ortance of following up with his primary care provider to monitor the area of concern and he may potentially require colonoscopy to evaluate this further. Patient verbalized understanding. I reviewed patient's labs, significant for troponin 0.027, BNP 4490, previously on 08/17/2024 was 2970. With pleural effusion chest pain, MICKIE, ordered 20 mg IV lasix. Updated pt to plan for admission, he is agreeable with POC. Pain improved with diluadid administration. Now endorses dizziness, states has been intermittent x 2 days. No associated neuro deficits. Ordered meclizine. Discussed case with Dr. Gee, kindly accepts for admission. Pt admitted in stable condition Undiagnosed new problem with uncertain prognosis? @ -No Drug Therapy requiring intensive monitoring for toxicity (Heparin, Nitro, Insulin, Cardizem)? @ -No Were any procedures done? @ -No Diagnosis/symptom? @Unstable angina, pleural effusion Acute, or Chronic, or Acute on Chronic? @ Acute Uncomplicated (without systemic symptoms) or Complicated (systemic symptoms)? @Complicated Side effects of treatment? @ -No Exacerbation, Progression, or Severe Exacerbation? @ -No Poses a threat to life or bodily function? How? (Chest pain, USA, PA, pneumonia, PE, COPD, DKA, ARF, appy, cholecystitis, CVA, Diverticulitis, Homicidal, Suicidal, threat to staff... and all critical care pts) @Yes - Lab Data Result diagrams: 09/05/24 00:11 09/05/24 00:11 Lab Results 09/05/24 09/05/24 09/05/24 Range/Units 00:11 00:11 00:11 WBC 5.1 (3.8-10.6) k/uL RBC 4.66 (4.30-5.90) m/uL Hgb 11.6 L (13.0-17.5) gm/dL Hct 37.9 L (39.0-53.0) % MCV 81.4 (80.0-100.0) fL MCH 24.8 L (25.0-35.0) pg MCHC 30.5 L (31.0-37.0) g/dL RDW 16.4 H (11.5-15.5) % Plt Count 161 (150-450) k/uL MPV 9.5 Neutrophils % 55 % Lymphocytes % 30 % Monocytes % 9 % Eosinophils % 2 % Basophils % 1 % Neutrophils # 2.8 (1.3-7.7) k/uL Lymphocytes # 1.5 (1.0-4.8) k/uL Monocytes # 0.5 (0-1.0) k/uL Eosinophils # 0.1 (0-0.7) k/uL Basophils # 0.0 (0-0.2) k/uL Hypochromasia Marked Anisocytosis Slight PT 10.9 (10.0-12.5) sec INR 1.0 (<1.2) APTT 26.1 (22.0-30.0) sec Sodium 140 (137-145) mmol/L Potassium 4.1 (3.5-5.1) mmol/L Chloride 108 H (98-107) mmol/L Carbon Dioxide 24 (22-30) mmol/L Anion Gap 8 mmol/L BUN 15 (9-20) mg/dL Creatinine 0.91 (0.66-1.25) mg/dL Est GFR (CKD-EPI)AfAm >90 (>60 ml/min/1.73 sqM) Est GFR (CKD-EPI)NonAf 87 (>60 ml/min/1.73 sqM) Glucose 94 (74-99) mg/dL Calcium 9.4 (8.4-10.2) mg/dL Magnesium 1.8 (1.6-2.3) mg/dL Total Bilirubin 0.7 (0.2-1.3) mg/dL AST 22 (17-59) U/L ALT 10 (4-49) U/L Alkaline Phosphatase 144 H (38-126) U/L Troponin I (0.000-0.034) ng/mL NT-Pro-B Natriuret Pep 4490 pg/mL Total Protein 8.1 (6.3-8.2) g/dL Albumin 4.2 (3.5-5.0) g/dL Amylase 47 (30-110) U/L Lipase 98 (23-300) U/L Acetaminophen <10.0 ug/mL 09/05/24 09/05/24 Range/Units 00:11 03:32 WBC (3.8-10.6) k/uL RBC (4.30-5.90) m/uL Hgb (13.0-17.5) gm/dL Hct (39.0-53.0) % MCV (80.0-100.0) fL MCH (25.0-35.0) pg MCHC (31.0-37.0) g/dL RDW (11.5-15.5) % Plt Count (150-450) k/uL MPV Neutrophils % % Lymphocytes % % Monocytes % % Eosinophils % % Basophils % % Neutrophils # (1.3-7.7) k/uL Lymphocytes # (1.0-4.8) k/uL Monocytes # (0-1.0) k/uL Eosinophils # (0-0.7) k/uL Basophils # (0-0.2) k/uL Hypochromasia Anisocytosis PT (10.0-12.5) sec INR (<1.2) APTT (22.0-30.0) sec Sodium (137-145) mmol/L Potassium (3.5-5.1) mmol/L Chloride (98-107) mmol/L Carbon Dioxide (22-30) mmol/L Anion Gap mmol/L BUN (9-20) mg/dL Creatinine (0.66-1.25) mg/dL Est GFR (CKD-EPI)AfAm (>60 ml/min/1.73 sqM) Est GFR (CKD-EPI)NonAf (>60 ml/min/1.73 sqM) Glucose (74-99) mg/dL Calcium (8.4-10.2) mg/dL Magnesium (1.6-2.3) mg/dL Total Bilirubin (0.2-1.3) mg/dL AST (17-59) U/L ALT (4-49) U/L Alkaline Phosphatase (38-126) U/L Troponin I 0.027 0.024 (0.000-0.034) ng/mL NT-Pro-B Natriuret Pep pg/mL Total Protein (6.3-8.2) g/dL Albumin (3.5-5.0) g/dL Amylase (30-110) U/L Lipase (23-300) U/L Acetaminophen ug/mL Disposition Clinical Impression: Pleural effusion, Unstable angina Disposition: ADMITTED IP TO THIS [facility] Condition: Stable
[2024-09-05 00:42] LABS: Anisocytosis Slight; Basophils % (A) 1 %; Eosinophils # (A) 0.1 k/uL (0-0.7); Eosinophils % (A) 2 %; HCT 37.9 % (39.0-53.0); HGB 11.6 gm/dL (13.0-17.5); Hypochromasia Marked; Lymphocytes # (A) 1.5 k/uL (1.0-4.8); Lymphocytes % (A) 30 %; MCH 24.8 pg (25.0-35.0); MCHC 30.5 g/dL (31.0-37.0); MCV 81.4 fL (80.0-100.0); Mean Platelet Volume 9.5; Monocytes # (A) 0.5 k/uL (0-1.0); Monocytes % (A) 9 %; Neutrophils # (A) 2.8 k/uL (1.3-7.7); Neutrophils % (A) 55 %; Platelet Count 161 k/uL (150-450); RBC 4.66 m/uL (4.30-5.90); RDW 16.4 % (11.5-15.5); WBC 5.1 k/uL (3.8-10.6)
[2024-09-05 00:50] LABS: Partial Thromboplastin Time 26.1 sec (22.0-30.0); Prothrombin Time 10.9 sec (10.0-12.5)
[2024-09-05 00:52] LABS: ALT 10 U/L (4-49); AST 22 U/L (17-59); Acetaminophen <10.0 ug/mL; African American GFR (CKD) >90 (>60 ml/min/1.73 sqM); Albumin 4.2 g/dL (3.5-5.0); Alkaline Phosphatase 144 U/L (38-126); Amylase 47 U/L (30-110); Anion Gap 8 mmol/L; Blood Urea Nitrogen 15 mg/dL (9-20); Calcium 9.4 mg/dL (8.4-10.2); Carbon Dioxide 24 mmol/L (22-30); Chloride 108 mmol/L (98-107); Glucose 94 mg/dL (74-99); Lipase 98 U/L (23-300); Magnesium 1.8 mg/dL (1.6-2.3); Non-African American GFR(CKD) 87 (>60 ml/min/1.73 sqM); Potassium 4.1 mmol/L (3.5-5.1); Sodium 140 mmol/L (137-145); Total Bilirubin 0.7 mg/dL (0.2-1.3); Total Protein 8.1 g/dL (6.3-8.2)
[2024-09-05] MEDS: SODIUM CHLORIDE 0.9% 500 ML 500 ML IV STA (00:58)
[2024-09-05] MEDS: MAGNESIUM SULFATE-D5W PMX 1 GM in DEXTROSE/WATER 1 100ML.BAG IVPB SCH (00:58)
[2024-09-05] MEDS: ONDANSETRON 4 MG/2 ML VIAL IVP STA (00:59)
[2024-09-05] MEDS: ASPIRIN 81 MG PO STA (00:59)
[2024-09-05 01:00] LABS: NT-Pro-B-Type Natriuretic Pept 4490 pg/mL
[2024-09-05] MEDS: MORPHINE SULFATE 4 MG/ML SYRINGE IV STA (01:00)
[2024-09-05] MEDS: ACETAMINOPHEN TAB 500 MG TAB PO STA (01:01)
[2024-09-05] MEDS: NITROGLYCERIN SL TABS 0.4 MG TAB SUBLINGUAL STA (01:02)
[2024-09-05] MEDS: HYDROmorphone 1 MG/ML 1 ML SYRINGE IVP STA (03:12)
--- NOTE | 2024-09-05 03:18 | CT ---
EXAM: CT Angiography Chest, Abdomen and Pelvis Without and With Intravenous Contrast CLINICAL HISTORY: ITS.REASON CT Reason: CP radiating to back dissection? TECHNIQUE: Axial computed tomographic angiography images of the chest, abdomen and pelvis without and with intravenous contrast. CTDI is 59.05 mGy and DLP is 1189.15 mGy-cm. This CT exam was performed using one or more of the following dose reduction techniques: automated exposure control, adjustment of the mA and/or kV according to patient size, and/or use of iterative reconstruction technique. MIP reconstructed images were created and reviewed. COMPARISON: CTA Chest Abdomen Pelvis dated 06/13/24, CTA chest dated 07/27/24 FINDINGS: VASCULATURE: Aorta: Atherosclerotic calcifications of the thoracic aorta and origins of the great vessels. Left vertebral artery arises from the aorta, variant anatomy. No evidence of aortic dissection. No evidence of aneurysm. Pulmonary arteries: Unremarkable as visualized. Limited evaluation. No pulmonary embolism is identified. Great vessels of aortic arch: No acute findings. No dissection. No arterial occlusion or significant stenosis. Celiac trunk and mesenteric arteries: Moderate narrowing of the celiac artery origin, stable. Superior node for mesenteric arteries appear patent. Renal arteries: 2 right renal arteries. Atherosclerotic calcifications at the renal artery origins with at least moderate stenoses. Iliac arteries: Moderate atherosclerotic calcifications of the aortoiliac arteries. No occlusion or significant stenosis. CHEST: Lungs: See below. Pleural space: Moderate right and small left pleural effusions. Similar to the prior. Associated atelectasis. No pneumothorax. Heart: Median sternotomy wires. CABG. Artifact associated with the graft/stent, limited evaluation. Similar appearance to the prior. Mild cardiomegaly. Marked coronary calcifications. No significant pericardial effusion. ABDOMEN: Liver: Nodular cirrhotic liver. Gallbladder and bile ducts: Cholecystectomy. No ductal dilation. Pancreas: Unremarkable. No ductal dilation. No mass. Spleen: Borderline splenomegaly. Adrenals: Unremarkable. No mass. Kidneys and ureters: Unremarkable. No obstructing stones. No hydronephrosis. No solid mass. Stomach and bowel: Query focal colonic wall thickening of the mid transverse colon of the anterior wall up to 8 mm. Series 601 image 199. Nonspecific. No obstruction. PELVIS: Appendix: Normal appendix. Bladder: Mild bladder wall thickening versus partial distention. No stones. Reproductive: Unremarkable as visualized. CHEST, ABDOMEN and PELVIS: Intraperitoneal space: Unremarkable. No significant fluid collection. No free air. Bones/joints: Degenerative changes of the spine. L5-S1 fusion. No acute fracture. No dislocation. Soft tissues: Unremarkable. Lymph nodes: Stable mildly enlarged pretracheal nodes, 1.2 cm. Multiple other small and mildly enlarged mediastinal and hilar nodes. IMPRESSION: 1. No evidence of aortic dissection or aneurysm. 2. Median sternotomy wires. CABG. Artifact associated with the graft/stent, limited evaluation. Similar appearance to the prior. Correlate and consider further evaluation as indicated to assess for patency. 3. Moderate right and small left pleural effusions. Similar to the prior. Associated atelectasis. 4. Nodular cirrhotic liver. 5. Query focal colonic wall thickening of the mid transverse colon of the anterior wall up to 8 mm. Series 601 image 199. Nonspecific and may relate to partial distention. Similar appearance on the prior. Correlate with other priors if available and consider colonoscopy. Malignancy not excluded. 6. Stable mildly enlarged pretracheal nodes, 1.2 cm. Multiple other small and mildly enlarged mediastinal and hilar nodes.
[2024-09-05] MEDS: FUROSEMIDE 10 MG/ML 2 ML VIAL IV ONE (05:27)
[2024-09-05] MEDS: MECLIZINE 25 MG TAB PO STA (05:36)
[2024-09-05] MEDS: HYDROmorphone 0.5 MG/0.5 ML SYRINGE IVP STA (05:39)
[2024-09-05 06:39] VITALS: RESP 18
[2024-09-05] MEDS: HYDROcodone/APAP 10-325MG 1 EACH TAB PO STA (09:04)
[2024-09-05] MEDS ORDERED: NITROGLYCERIN SL TABS 0.4 MG TAB SUBLINGUAL PRN (11:14)
[2024-09-05] MEDS ORDERED: IPRATROPIUM-ALBUTEROL 3 ML NEB INHALATION PRN (11:14)
[2024-09-05 11:52] VITALS: BP 120/69; PULSE 77; TEMP 98.1
--- NOTE | 2024-09-05 12:58 | P.CRDCN ---
History of Present Illness History of present illness: HISTORY OF PRESENT ILLNESS: This is a 69-year-old male with a past medical history significant for coronary artery disease status post CABG and subsequent redo CABG, severe cardiomyopathy, valvular heart disease, hypertension, hyperlipidemia, chronic kidney disease, pleural effusions, and atrial fibrillation. Patient follows in the office with Dr. Wiggins. We have been asked to see the patient in consultation for congestive heart failure. Patient examined at the bedside in the emergency room. Patient presented to the hospital with a chief complaint of shortness of breath. Patient states that he began to have shortness of breath yesterday. He denies having any chest pain or pressure. Patient states he has been compliant with all of his medications. He also reports feeling like the room is spinning. DIAGNOSTICS: - EKG reveals sinus mechanism with nonspecific ST-T wave changes - Thoracic CT: No evidence for aortic dissection or aneurysm. Moderate right and small left pleural effusion. - Laboratory data: WBC 5.1. Hemoglobin 11.6. Platelet count 161. Sodium 140. Potassium 4.1. BUN 15. Creatinine 0.91. Troponin 0.027. 0.024. proBNP 4490. - Current home cardiac medications include Eliquis 2.5 mg twice a day, Lasix 40 mg daily, aspirin 81 mg daily, isosorbide 30 mg daily, Plavix 75 mg daily, Farxiga 10 mg daily, Zetia 10 mg daily, metoprolol succinate 50 mg daily, lisinopril 2.5 mg daily -Limited echo obtained in April 2024 revealed ejection fraction 20 to 25% REVIEW OF SYSTEMS: At the time of my exam: CONSTITUTIONAL: Denies fever or chills. HEENT: Denies blurred vision, vision changes, or eye pain. Denies hemoptysis CARDIOVASCULAR: Denies chest pain. Denies orthopnea. Denies PND. Denies palpitations RESPIRATORY: Denies shortness of breath. GASTROINTESTINAL: Denies abdominal pain. Denies nausea or vomiting. HEMATOLOGIC: Denies bleeding disorders. GENITOURINARY: Denies any blood in urine. SKIN: Denies pruitis. Denies rash. PHYSICAL EXAM: VITAL SIGNS: Reviewed. GENERAL: Well-developed in no acute distress. HEENT: Head is normocephalic. Pupils are equal, round. Sclerae anicteric. Mucous membranes of the mouth are moist. Neck supple. No JVD or thyromegaly LUNGS: Respirations even and unlabored. Lungs diminished bilaterally. HEART: Regular rate and rhythm. S1 and S2 heard. Systolic murmur noted ABDOMEN: Soft. Nondistended. Nontender. EXTREMITIES: Normal range of motion. No clubbing or cyanosis. Peripheral pulses intact. No lower extremity edema NEUROLOGIC: Awake and alert. Oriented x 3. ASSESSMENT: Shortness of breath Acute on chronic heart failure with reduced EF Coronary artery disease with previous CABG 20 years ago and redo CABG x 2, 04/2024 Ischemic cardiomyopathy, 20 to 25% Moderate right pleural effusion Small left pleural effusion History of pleural effusions with previous thoracentesis Chronic kidney disease Paroxysmal atrial fibrillation Hypertension Hyperlipidemia PLAN: Continue home cardiac medications Begin IV Lasix 40 mg every 12 hours Daily weights, accurate intake and output, monitoring of kidney function Consult pulmonary for possible thoracentesis Further recommendations pending patient course Nurse practitioner note has been reviewed by physician. Signing provider agrees with the documented findings, assessment, and plan of care documented by [employer] as a scribe. Past Medical History Past Medical History: Coronary Artery Disease (CAD), Chest Pain / Angina, Heart Failure, COPD, GERD/Reflux, Hyperlipidemia, Hypertension, Myocardial Infarction (SD), Osteoarthritis (OA), Sleep Apnea/CPAP/BIPAP Additional Past Medical History / Comment(s): Chronic back pain, left leg weakness. No device use for Sleep Apnea, states uses O2 at night only. Recent SOB, edema lower extremitries. States unsure about having had a heart attack. Last Myocardial Infarction Date:: 11/11/22 History of Any Multi-Drug Resistant Organisms: None Reported Past Surgical History: Back Surgery, Cholecystectomy, Coronary Bypass/CABG, Heart Catheterization With Stent, Orthopedic Surgery Additional Past Surgical History / Comment(s): Back surgery X2 with cage, left tennis elbow surgery, heart stents X7, colonoscopy, lasik eye surgery bilaterally,. emergency CABG [facility], thrombectomy. Past Anesthesia/Blood Transfusion Reactions: No Reported Reaction Additional Past Anesthesia/Blood Transfusion Reaction / Comment(s): Pt received blood during CABG without reaction. Date of Last Stent Placement:: Oct 2022 Past Psychological History: Anxiety, Depression, PTSD Additional Psychological History / Comment(s): He ambulates with a cane. He drives. Smoking Status: Former smoker Past Alcohol Use History: None Reported Additional Past Alcohol Use History / Comment(s): Started smoking in 1967. No alcohol in 30+ yrs. Past Drug Use History: None Reported Additional Drug Use History / Comment(s): States no cocaine use for 30+ yrs. - Past Family History Father Family Medical History: Coronary Artery Disease (CAD), Deep Vein Thrombosis (DVT), GERD/Reflux, Hyperlipidemia, Myocardial Infarction (SD) Additional Family Medical History / Comment(s): Father of a SD in his 80's. Mother Family Medical History: Coronary Artery Disease (CAD), Myocardial Infarction (SD) Additional Family Medical History / Comment(s): Mother of a SD. Brother(s) Family Medical History: Myocardial Infarction (SD) Additional Family Medical History / Comment(s): . Sister(s) Family Medical History: Cancer, Diabetes Mellitus Additional Family Medical History / Comment(s): Lung cancer. Other sister had Diabetes. Medications and Allergies Home Medications Medication Instructions Recorded Confirmed Type Apixaban [Eliquis] 2.5 mg PO BID #60 tab 11/18/22 09/05/24 Rx Ezetimibe [Zetia] 10 mg PO DAILY #90 tab 11/18/22 09/05/24 Rx Fluticasone Nasal [place] [Flonase 1 spray EA NOSTRIL BID PRN 01/27/23 09/05/24 History Nasal [place]] Clopidogrel [Plavix] 75 mg PO DAILY 08/21/23 09/05/24 History Cyclobenzaprine [Flexeril] 10 mg PO BID 08/21/23 09/05/24 History Sodium Bicarbonate Tab 650 mg PO TID #100 tab 01/25/24 09/05/24 Rx Ergocalciferol [Vitamin D2 (1250 1,250 mcg PO Q14D 05/10/24 09/05/24 History Mcg = 36789 Iu)] Ferrous Sulfate [Iron (65 MG 325 mg PO DAILY 05/10/24 09/05/24 History Elemental)] Gabapentin [Neurontin] 100 mg PO TID 05/10/24 09/05/24 History Dapagliflozin Propanediol [Farxiga] 10 mg PO DAILY tab 05/24/24 09/05/24 Rx Ipratropium-Albuterol Nebulize 3 ml INHALATION RT-Q2H PRN each 05/24/24 09/05/24 Rx [Duoneb 0.5 mg-3 mg/3 ml Soln] Potassium Chloride ER [K-Dur 10] 10 meq PO DAILY #30 tab 05/24/24 09/05/24 Rx lisinopriL [Zestril] 2.5 mg PO DAILY@1200 tab 05/24/24 09/05/24 Rx ALPRAZolam [Xanax] 2 mg PO HS 07/27/24 09/05/24 History Nitroglycerin Sl Tabs [Nitrostat] 0.4 mg SUBLINGUAL Q5M PRN 08/17/24 09/05/24 History Furosemide [Lasix] 40 mg PO DAILY #30 tablet 08/18/24 09/05/24 Rx Albuterol Inhaler [Ventolin Hfa 1 - 2 puff INHALATION RT-Q6H PRN 09/05/24 09/05/24 History Inhaler] Aspirin EC [Ecotrin Low Dose] 81 mg PO DAILY 09/05/24 09/05/24 History Folic Acid 1 mg PO DAILY 09/05/24 09/05/24 History Isosorbide Dinitrate 30 mg PO DAILY 09/05/24 09/05/24 History Metoprolol Succinate (ER) [Toprol 50 mg PO DAILY 09/05/24 09/05/24 History Xl] Omeprazole [PriLOSEC] 20 mg PO DAILY 09/05/24 09/05/24 History Tamsulosin [Flomax] 0.4 mg PO DAILY 09/05/24 09/05/24 History allopurinoL [Zyloprim] 100 mg PO DAILY 09/05/24 09/05/24 History rOPINIRole HCL [Requip] 0.25 mg PO HS 09/05/24 09/05/24 History Allergies Allergy/AdvReac Type Severity Reaction Status Date / Time latex Allergy Swelling Verified 09/05/24 09:45 atorvastatin [From Lipitor] AdvReac JOINT PAIN Verified 09/05/24 09:45 Physical Exam Vitals: Vital Signs Temp Pulse Pulse Resp BP BP Pulse Ox 09/05/24 11:51 98.1 F 77 18 120/69 99 09/05/24 08:12 97.9 F 75 18 95/66 97 09/05/24 06:36 77 18 120/95 96 09/05/24 05:32 72 20 112/66 96 09/05/24 01:04 18 09/05/24 00:54 79 18 124/61 96 09/05/24 00:00 97.4 F L 87 20 131/67 93 L Intake and Output 09/04/24 09/05/24 09/05/24 22:59 06:59 14:59 Other: Weight 106.594 kg 106.594 kg Results 09/05/24 00:11 09/05/24 00:11 Cardiac Enzymes 09/05/24 09/05/24 09/05/24 Range/Units 00:11 00:11 03:32 AST 22 (17-59) U/L Troponin I 0.027 0.024 (0.000-0.034) ng/mL Coagulation 09/05/24 Range/Units 00:11 PT 10.9 (10.0-12.5) sec APTT 26.1 (22.0-30.0) sec CBC 09/05/24 Range/Units 00:11 WBC 5.1 (3.8-10.6) k/uL RBC 4.66 (4.30-5.90) m/uL Hgb 11.6 L (13.0-17.5) gm/dL Hct 37.9 L (39.0-53.0) % Plt Count 161 (150-450) k/uL Comprehensive Metabolic Panel 09/05/24 Range/Units 00:11 Sodium 140 (137-145) mmol/L Potassium 4.1 (3.5-5.1) mmol/L Chloride 108 H (98-107) mmol/L Carbon Dioxide 24 (22-30) mmol/L BUN 15 (9-20) mg/dL Creatinine 0.91 (0.66-1.25) mg/dL Glucose 94 (74-99) mg/dL Calcium 9.4 (8.4-10.2) mg/dL AST 22 (17-59) U/L ALT 10 (4-49) U/L Alkaline Phosphatase 144 H (38-126) U/L Total Protein 8.1 (6.3-8.2) g/dL Albumin 4.2 (3.5-5.0) g/dL Current Medications Generic Name Dose Route Start Last Admin Trade Name Freq PRN Reason Stop Dose Admin Albuterol/Ipratropium 3 ml 09/05/24 11:14 Ipratropium-Albuterol 3 Ml Neb INHALATION RT-Q2H PRN Shortness Of Breath Or Wheezing Alprazolam 2 mg 09/05/24 21:00 Alprazolam 1 Mg Tab PO HS [facility] Aspirin 81 mg 09/06/24 09:00 Aspirin 81 Mg PO DAILY [facility] Clopidogrel Bisulfate 75 mg 09/06/24 09:00 Clopidogrel 75 Mg Tab PO DAILY [facility] Dapagliflozin 10 mg 09/06/24 09:00 Dapagliflozin Propanediol 10 Mg Tablet PO DAILY [facility] Ezetimibe 10 mg 09/06/24 09:00 Ezetimibe 10 Mg Tab PO DAILY [facility] Ferrous Sulfate 325 mg 09/06/24 09:00 Ferrous Sulfate 325 Mg Tab PO DAILY [facility] Furosemide 40 mg 09/05/24 21:00 Furosemide 10 Mg/Ml 4 Ml Vial IV Q12HR [facility] Gabapentin 100 mg 09/05/24 16:00 Gabapentin 100 Mg Cap PO TID [facility] Isosorbide Dinitrate 30 mg 09/06/24 09:00 Isosorbide Dinitrate 10 Mg Tab PO DAILY [facility] Lisinopril 2.5 mg 09/05/24 12:00 09/05/24 11:26 Lisinopril 2.5 Mg Tab PO Not Given DAILY@1200 [facility] Metoprolol Succinate 50 mg 09/06/24 09:00 Metoprolol Succinate (Er) 50 Mg Tab.Er.24h PO DAILY [facility] Nitroglycerin 0.4 mg 09/05/24 11:14 Nitroglycerin Sl Tabs 0.4 Mg Tab SUBLINGUAL Q5M PRN Chest Pain Pantoprazole Sodium 40 mg 09/06/24 07:30 Pantoprazole 40 Mg Tablet PO AC-BRKFST [facility] Potassium Chloride 10 meq 09/06/24 09:00 Potassium Chloride Er 10 Meq Tab.Er.Prt PO DAILY [facility] Ropinirole HCl 0.25 mg 09/05/24 21:00 Ropinirole Hcl 0.25 Mg Tab PO HS [facility] Sodium Bicarbonate 650 mg 09/05/24 16:00 Sodium Bicarbonate Tab 650 Mg Tab PO TID [facility] Tamsulosin HCl 0.4 mg 09/06/24 09:00 Tamsulosin 0.4 Mg Cap.Er.24h PO DAILY [facility] Intake and Output 09/04/24 09/05/24 09/05/24 22:59 06:59 14:59 Other: Weight 106.594 kg 106.594 kg Patient Weight 09/06/24 06:59 Weight 106.594 kg 09/05/24 00:11 09/05/24 00:11
[2024-09-05] MEDS ORDERED: GABAPENTIN 100 MG CAP PO SCH (16:00)
[2024-09-05] MEDS ORDERED: SODIUM BICARBONATE TAB 650 MG TAB PO SCH (16:00)
[2024-09-05] MEDS ORDERED: APIXABAN 2.5 MG TABLET PO SCH (21:00)
[2024-09-05] MEDS ORDERED: ALPRAZolam 1 MG TAB PO SCH (21:00)
[2024-09-05] MEDS ORDERED: FUROSEMIDE 10 MG/ML 4 ML VIAL IV SCH (21:00)
[2024-09-06] MEDS ORDERED: PANTOPRAZOLE 40 MG TABLET PO SCH (07:30)
[2024-09-06] MEDS ORDERED: ASPIRIN 81 MG PO SCH (09:00)
[2024-09-06] MEDS ORDERED: METOPROLOL SUCCINATE (ER) 50 MG TAB.ER.24H PO SCH (09:00)
[2024-09-06] MEDS ORDERED: ISOSORBIDE DINITRATE 10 MG TAB PO SCH (09:00)
[2024-09-06] MEDS ORDERED: EZETIMIBE 10 MG TAB PO SCH (09:00)
[2024-09-06] MEDS ORDERED: FERROUS SULFATE 325 MG TAB PO SCH (09:00)
[2024-09-06] MEDS ORDERED: FUROSEMIDE 40 MG TAB PO SCH (09:00)
[2024-09-06] MEDS ORDERED: TAMSULOSIN 0.4 MG CAP.ER.24H PO SCH (09:00)
[2024-09-06] MEDS ORDERED: CLOPIDOGREL 75 MG TAB PO SCH (09:00)
[2024-09-06] MEDS ORDERED: DAPAGLIFLOZIN PROPANEDIOL 10 MG TABLET PO SCH (09:00)
[2024-09-06] MEDS ORDERED: POTASSIUM CHLORIDE ER 10 MEQ TAB.ER.PRT PO SCH (09:00)
--- NOTE | 2024-09-08 04:45 | HP ---
HISTORY AND PHYSICAL CHIEF COMPLAINT: Chest pain and shortness of breath. HISTORY OF PRESENT ILLNESS: This is another admission for this 69-year-old white male with severe and advanced triple-vessel coronary artery disease, status post 2 CABGs. He also continues to smoke. He presents again to the emergency room with shortness of breath and chest pain. He has a right pleural effusion which has been there for some time. REVIEW OF SYSTEMS: He denies fever and chills, cough, hemoptysis, etc. Past medical history, family history and personal and social histories are all otherwise unremarkable or noncontributory or unchanged from his recent admitting and discharge summaries. PHYSICAL EXAMINATION: VITAL SIGNS: Normal. HEAD, EARS, EYES, NOSE, MOUTH, AND THROAT: Normal. CHEST: Clear. CARDIAC: Normal. ABDOMEN: Soft, and slightly protuberant. EXTREMITIES: Normal. IMPRESSION: 1. Unstable angina pectoris. 2. Coronary artery disease. 3. Chronic obstructive pulmonary disease. 4. Right pleural effusion. PLAN: 1. Bed rest. 2. IV fluids. 3. Serial EKGs and enzymes. 4. Consult with Cardiology and Pulmonology. MMODL / IJN: [id number] /
--- NOTE | 2024-09-08 07:53 | DS ---
DISCHARGE SUMMARY CHIEF COMPLAINT: Chest pain and shortness of breath. HISTORY OF PRESENT ILLNESS AND PHYSICAL EXAMINATION: Details of this man's history and physical can be found in the initial workup. LABORATORY STUDIES: While he is in the hospital, he had laboratory studies, details of which can be found in the laboratory section of his chart. COURSE IN THE HOSPITAL: After admission, he was placed on bedrest and seen in the emergency room. He was to be admitted and evaluated by Pulmonology and Cardiology, but he signed out AMA. FINAL DIAGNOSES: 1. Unstable angina pectoris. 2. Coronary artery disease. 3. Chronic obstructive pulmonary disease. 4. Right pleural effusion. 5. Chronic congestive heart failure. OPERATIONS: None. CONSULTATIONS: None. He left AMA. REYNALDO / NATHALYN: [id number] /
--- NOTE | 2024-09-11 11:36 | CDI ---
Documentation Clarification Form Date: 09/11/2024 11:25:41 AM From: Maria E Hanley Admit Date: 09/05/2024 04:53:00 AM Patient Name: Israel Simmons Visit Number: [id number] Discharge Date: 09/05/2024 12:53:00 PM ATTENTION: The Clinical Documentation Specialists (CDI) and [facility] Coding Staff appreciate your assistance in clarifying documentation. Please respond to the clarification below the line at the bottom and electronically sign. The CDI & [facility] Coding staff will review the response and follow-up if needed. Please note: Queries are made part of the Legal Health Record. If you have any questions, please contact the author of this message via ITS. Doctor/Provider: Alexx Gee Conflicting documentation has been found in the medical record. As attending physician, please provide clarification. Per Cardiology consult and PN's "Acute on Chronic heart failure with reduced ER." Per DCS "Chronic Congestive heart failure" History/Risk Factors: CAD with angina, SOB, ischemic cardiomyopathy Clinical Indicators: BNP 4490 Patient has bilateral pleural effusion Treatment: Lasix 40 mg IV Please clarify which diagnosis is most appropriate: [ ] Acute on Chronic CHF with reduced EF [ ] Chronic CHF [ ] Other (please specify) [ ] Unable to determine MTDD
--- NOTE | 2024-09-13 08:29 | MISC ---
MISCELLANOUS REPORT Acute on chronic congestive heart failure, reduced EF. MMODL / IJN: [id number] /
== END 2024-09-05 12:53 | disposition left against medical advice (07) ==
LOC: EC 23:58 → INTOOBSV 09-05 04:53 → 5NMEDONC 09-05 04:53
PROVIDERS: ADMIT Family Medicine; ATTEND Family Medicine
DX: I25.110 Atherosclerotic heart disease of native coronary artery with unstable angina pectoris (principal); J90 Pleural effusion, not elsewhere classified; I13.0 Hypertensive heart and chronic kidney disease with heart failure and stage 1 through stage 4 chronic kidney disease, or unspecified chronic kidney disease; I50.23 Acute on chronic systolic (congestive) heart failure; N18.9 Chronic kidney disease, unspecified; J44.9 Chronic obstructive pulmonary disease, unspecified; I48.0 Paroxysmal atrial fibrillation; K21.9 Gastro-esophageal reflux disease without esophagitis; E78.5 Hyperlipidemia, unspecified; G47.30 Sleep apnea, unspecified; F41.9 Anxiety disorder, unspecified; F32.A Depression, unspecified; I25.5 Ischemic cardiomyopathy; I25.2 Old myocardial infarction; Z87.891 Personal history of nicotine dependence; Z95.5 Presence of coronary angioplasty implant and graft; Z79.01 Long term (current) use of anticoagulants; Z79.51 Long term (current) use of inhaled steroids; Z79.82 Long term (current) use of aspirin; Z79.84 Long term (current) use of oral hypoglycemic drugs; Z79.899 Other long term (current) drug therapy; Z91.040 Latex allergy status; Z82.49 Family history of ischemic heart disease and other diseases of the circulatory system; Z53.29 Procedure and treatment not carried out because of patient's decision for other reasons
CPT/HCPCS: 96376; 96365; 96366; 96375; 99285; 36415; 93005; 83880; 80053; 82150; 83690; 83735; 84484; 85025; 85610; 85730; 80143; 87636; 71275; 74174; G0378; J2270; J1940; J2405; J1171 ×2; J3475; Q9967; 96361

== ENCOUNTER 2024-09-06 08:46 | Inpatient (IN) | payer MEDICARE, OTHER ==
--- NOTE | 2024-09-06 09:16 | ED ---
General Adult HPI - General Chief complaint: Shortness of Breath Stated complaint: MICKIE Time Seen by Provider: 09/06/24 08:50 Source: patient, RN notes reviewed, old records reviewed Mode of arrival: wheelchair Limitations: no limitations - History of Present Illness Initial comments: This is a 69-year-old male who presents to the emergency department with a past medical history significant for pleural effusion and congestive heart failure. Patient had bypass surgery x 2. Patient states he was here yesterday and was admitted but then left AMA. Patient states he got home and his breathing got worse so he decided come back in. Patient denies any chest pain or palpitations. Patient has any abdominal pain patient has nausea vomiting diarrhea. Patient [place] any fever chills or cough. - Related Data Home Medications Medication Instructions Recorded Confirmed Fluticasone Nasal [place] [Flonase 1 spray EA NOSTRIL BID PRN 01/27/23 09/05/24 Nasal [place]] Clopidogrel [Plavix] 75 mg PO DAILY 08/21/23 09/05/24 Cyclobenzaprine [Flexeril] 10 mg PO BID 08/21/23 09/05/24 Ergocalciferol [Vitamin D2 (1250 1,250 mcg PO Q14D 05/10/24 09/05/24 Mcg = 89489 Iu)] Ferrous Sulfate [Iron (65 MG 325 mg PO DAILY 05/10/24 09/05/24 Elemental)] Gabapentin [Neurontin] 100 mg PO TID 05/10/24 09/05/24 ALPRAZolam [Xanax] 2 mg PO HS 07/27/24 09/05/24 Nitroglycerin Sl Tabs [Nitrostat] 0.4 mg SUBLINGUAL Q5M PRN 08/17/24 09/05/24 Albuterol Inhaler [Ventolin Hfa 1 - 2 puff INHALATION RT-Q6H PRN 09/05/2405/22 Inhaler] Aspirin EC [Ecotrin Low Dose] 81 mg PO DAILY 09/05/24 09/05/24 Folic Acid 1 mg PO DAILY 09/05/24 09/05/24 Isosorbide Dinitrate 30 mg PO DAILY 09/05/24 09/05/24 Metoprolol Succinate (ER) [Toprol 50 mg PO DAILY 09/05/24 09/05/24 Xl] Omeprazole [PriLOSEC] 20 mg PO DAILY 09/05/24 09/05/24 Tamsulosin [Flomax] 0.4 mg PO DAILY 09/05/24 09/05/24 allopurinoL [Zyloprim] 100 mg PO DAILY 09/05/24 09/05/24 rOPINIRole HCL [Requip] 0.25 mg PO HS 09/05/24 09/05/24 Previous Rx's Medication Instructions Recorded Apixaban [Eliquis] 2.5 mg PO BID #60 tab 11/18/22 Ezetimibe [Zetia] 10 mg PO DAILY #90 tab 11/18/22 Sodium Bicarbonate Tab 650 mg PO TID #100 tab 01/25/24 Dapagliflozin Propanediol [Farxiga] 10 mg PO DAILY tab 05/24/24 Ipratropium-Albuterol Nebulize 3 ml INHALATION RT-Q2H PRN each 05/24/24 [Duoneb 0.5 mg-3 mg/3 ml Soln] Potassium Chloride ER [K-Dur 10] 10 meq PO DAILY #30 tab 05/24/24 lisinopriL [Zestril] 2.5 mg PO DAILY@1200 tab 05/24/24 Furosemide [Lasix] 40 mg PO DAILY #30 tablet 08/18/24 Allergies Allergy/AdvReac Type Severity Reaction Status Date / Time latex Allergy Swelling Verified 09/06/24 08:49 atorvastatin [From Lipitor] AdvReac JOINT PAIN Verified 09/06/24 08:49 Review of Systems ROS Statement: Those systems with pertinent positive or pertinent negative responses have been documented in the HPI. ROS Other: All systems not noted in ROS Statement are negative. Past Medical History Past Medical History: Coronary Artery Disease (CAD), Chest Pain / Angina, Heart Failure, COPD, GERD/Reflux, Hyperlipidemia, Hypertension, Myocardial Infarction ([place]), Osteoarthritis (OA), Sleep Apnea/CPAP/BIPAP Additional Past Medical History / Comment(s): Chronic back pain, left leg weakness. No device use for Sleep Apnea, states uses O2 at night only. Recent SOB, edema lower extremitries. States unsure about having had a heart attack. Last Myocardial Infarction Date:: 11/11/22 History of Any Multi-Drug Resistant Organisms: None Reported Past Surgical History: Back Surgery, Cholecystectomy, Coronary Bypass/CABG, Heart Catheterization With Stent, Orthopedic Surgery Additional Past Surgical History / Comment(s): Back surgery X2 with cage, left tennis elbow surgery, heart stents X7, colonoscopy, lasik eye surgery bilater ally,. emergency CABG [facility] [place], thrombectomy. Past Anesthesia/Blood Transfusion Reactions: No Reported Reaction Additional Past Anesthesia/Blood Transfusion Reaction / Comment(s): Pt received blood during CABG without reaction. Date of Last Stent Placement:: Oct 2022 Past Psychological History: Anxiety, Depression, PTSD Smoking Status: Former smoker Past Alcohol Use History: None Reported Past Drug Use History: None Reported - Past Family History Father Family Medical History: Coronary Artery Disease (CAD), Deep Vein Thrombosis (DVT), GERD/Reflux, Hyperlipidemia, Myocardial Infarction ([place]) Additional Family Medical History / Comment(s): Father of a [place] in his 80's. Mother Family Medical History: Coronary Artery Disease (CAD), Myocardial Infarction ([place]) Additional Family Medical History / Comment(s): Mother of a [place]. Brother(s) Family Medical History: Myocardial Infarction ([place]) Additional Family Medical History / Comment(s): . Sister(s) Family Medical History: Cancer, Diabetes Mellitus Additional Family Medical History / Comment(s): Lung cancer. Other sister had Diabetes. General Exam - General Exam Comments Initial Comments: GENERAL: Patient is well-developed and well-nourished. Patient is nontoxic and well- hydrated and is in mild distress. ENT: Neck is soft and supple. No significant lymphadenopathy is noted. Oropharynx is clear. Moist mucous membranes. Neck has full range of motion without eliciting any pain. EYES: The sclera were anicteric and conjunctiva were pink and moist. Extraocular movements were intact and pupils were equal round and reactive to light. Eyelids were unremarkable. PULMONARY: Patient has crackles in the bases CARDIOVASCULAR: There is a regular rate and rhythm without any murmurs gallops or rubs. ABDOMEN: Soft and nontender with normal bowel sounds. SKIN: Skin is clear with no lesions or rashes and otherwise unremarkable. NEUROLOGIC: Patient is alert and oriented x3. Cranial nerves II through XII are grossly intact. Motor and sensory are also intact. Normal speech, volume and content. Symmetrical smile. MUSCULOSKELETAL: Normal extremities with adequate strength and full range of motion. No lower e xtremity swelling or edema. No calf tenderness. LYMPHATICS: No significant lymphadenopathy is noted PSYCHIATRIC: Normal psychiatric evaluation. Limitations: no limitations Course Vital Signs 09/06/24 09/06/24 09/06/24 08:47 09:44 10:00 Temperature 98.3 F Pulse Rate 86 77 86 Respiratory 16 20 22 Rate Blood Pressure 114/70 99/69 100/60 O2 Sat by Pulse 91 L 98 98 Oximetry 09/06/24 09/06/24 11:00 11:39 Temperature Pulse Rate 80 79 Respiratory 20 20 Rate Blood Pressure 129/59 129/50 O2 Sat by Pulse 90 L 90 L Oximetry Medical Decision Making - Medical Decision Making EKG shows sinus rhythm at 79 bpm. MA interval is 147 QRS 104 QT interval is 438 QTc is 473. Patient's EKG shows T wave inversions in precordial leads V4 through V6 Was pt. sent in by a medical professional or institution ([facility], [employer], urgent care, hospital, or intermediate...) When possible be specific @ -No Did you speak to anyone other than the patient for history (EMS, parent, family, police, friend...)? What history was obtained from this source @ -No Did you review nursing and triage notes (agree or disagree)? Why? @ -I reviewed and agree with nursing and triage notes Were old charts reviewed (outside hosp., previous admission, EMS record, old EKG, old radiological studies, urgent care reports/EKG's, intermediate records)? Report findings @ -No old charts were reviewed Differential Diagnosis? @ -Differential Dyspnea: Coronary syndrome, arrhythmia, tamponade, asthma, COPD, pulmonary embolism, pneumonia, pneumothorax, pulmonary effusion, anaphylaxis, diabetic ketoacidosis, flailed chest, pulmonary contusion, diaphragmatic rupture, anemia, neuromuscular, this is not meant to be an all-inclusive list. EKG interpreted by me (3pts min.). @ -As above X-rays interpreted by me (1pt min.). @ -Chest x-ray shows pulmonary edema with a right-sided pleural effusion that appears larger than yesterday CT interpreted by me (1pt min.). @ -None done U/S interpreted by me (1pt. min.). @ -None done What testing was considered but not performed or refused? (CT, X-rays, U/S, labs)? Why? @ -None What meds were considered but not given or refused? Why? @ -None Did you discuss the management of the patient with other professionals (p rofessionals i.e. , PA, [employer], lab, RT, psych nurse, social insurance specialist, roving carrier, teacher, community reinvestment act officer, correctional counselor/case manager)? Give summary @ -I spoke with sound physicians he agreed admit the patient I admitted the patient and renew her Was smoking cessation discussed for >3mins.? @ -No Was critical care preformed (if so, how long)? @ -No Were there social determinants of health that impacted care today? How? (Homelessness, low income, unemployed, alcoholism, drug addiction, transportation, low edu. Level, literacy, decrease access to med. care, penitentiary, rehab)? @ -No Was there de-escalation of care discussed even if they declined (Discuss DNR or withdrawal of care, Hospice)? DNR status @ -No What co-morbidities impacted this encounter? (DM, HTN, Smoking, COPD, CAD, Cancer, CVA, ARF, Chemo, Hep., AIDS, mental health diagnosis, sleep apnea, morbid obesity)? @ -None Was patient admitted / discharged? Hospital course, mention meds given and route, prescriptions, significant lab abnormalities, going to OR and other pertinent info. @ -Patient had pulmonary edema with a pleural effusion on the right side. Patient was given Lasix and I went back into reevaluate and he was doing much better. I asked him who his primary medical care doctor was he stated he used to be recent but he does not want to go to Dr. Gee so I spoke with sound physicians he admitted the patient I wrote admitting orders Undiagnosed new problem with uncertain prognosis? @ -No Drug Therapy requiring intensive monitoring for toxicity (Heparin, Nitro, Insulin, Cardizem)? @ -No Were any procedures done? @ -No Diagnosis/symptom? @ -Acute pulmonary edema Acute, or Chronic, or Acute on Chronic? @ -Acute Uncomplicated (without systemic symptoms) or Complicated (systemic symptoms)? @ -Complicated Side effects of treatment? @ -No Exacerbation, Progression, or Severe Exacerbation? @ -No Poses a threat to life or bodily function? How? (Chest pain, [place], [place], pneumonia, PE, COPD, DKA, ARF, appy, cholecystitis, CVA, Diverticulitis, Homicidal, Suicidal, threat to staff... and all critical care pts) @ -Yes this can lead to hypoxia and endorgan dysfunction Diagnosis/symptom? @ -Pleural effusion Acute, or Chronic, or Acute on Chronic? @ -Acute Uncomplicated (without systemic symptoms) or Complicated (systemic symptoms)? @ -Complicated Side effects of treatment? @ -None Exacerbation, Progression, or Severe Exacerbation] @ -No Poses a threat to life or bodily function? @ -No - Lab Data Result diagrams: 09/06/24 09:05 09/06/24 09:05 Lab Results 09/06/24 09/06/24 09/06/24 Range/Units 09:05 09:05 09:05 WBC 3.8 (3.8-10.6) k/uL RBC 4.41 (4.30-5.90) m/uL Hgb 10.8 L (13.0-17.5) gm/dL Hct 36.1 L (39.0-53.0) % MCV 81.8 (80.0-100.0) fL MCH 24.5 L (25.0-35.0) pg MCHC 29.9 L (31.0-37.0) g/dL RDW 16.4 H (11.5-15.5) % Plt Count 123 L (150-450) k/uL MPV 8.1 Neutrophils % 63 % Lymphocytes % 25 % Monocytes % 7 % Eosinophils % 2 % Basophils % 1 % Neutrophils # 2.4 (1.3-7.7) k/uL Lymphocytes # 0.9 L (1.0-4.8) k/uL Monocytes # 0.3 (0-1.0) k/uL Eosinophils # 0.1 (0-0.7) k/uL Basophils # 0.0 (0-0.2) k/uL Hypochromasia Marked Anisocytosis Slight PT 10.7 (10.0-12.5) sec INR 1.0 (<1.2) APTT 20.5 L (22.0-30.0) sec Sodium 140 (137-145) mmol/L Potassium 4.8 (3.5-5.1) mmol/L Chloride 104 (98-107) mmol/L Carbon Dioxide 28 (22-30) mmol/L Anion Gap 8 mmol/L BUN 16 (9-20) mg/dL Creatinine 0.92 (0.66-1.25) mg/dL Est GFR (CKD-EPI)AfAm >90 (>60 ml/min/1.73 sqM) Est GFR (CKD-EPI)NonAf 86 (>60 ml/min/1.73 sqM) Glucose 129 H (74-99) mg/dL Lactic Ac Sepsis Rflx Plasma Lactic Acid Tomy (0.7-2.0) mmol/L Calcium 9.2 (8.4-10.2) mg/dL Magnesium 1.9 (1.6-2.3) mg/dL Total Bilirubin 0.8 (0.2-1.3) mg/dL AST 25 (17-59) U/L ALT 12 (4-49) U/L Alkaline Phosphatase 127 H (38-126) U/L Troponin I (0.000-0.034) ng/mL NT-Pro-B Natriuret Pep 4910 pg/mL Total Protein 7.6 (6.3-8.2) g/dL Albumin 4.0 (3.5-5.0) g/dL 09/06/24 09/06/24 09/06/24 Range/Units 09:05 09:05 09:50 WBC (3.8-10.6) k/uL RBC (4.30-5.90) m/uL Hgb (13.0-17.5) gm/dL Hct (39.0-53.0) % MCV (80.0-100.0) fL MCH (25.0-35.0) pg MCHC (31.0-37.0) g/dL RDW (11.5-15.5) % Plt Count (150-450) k/uL MPV Neutrophils % % Lymphocytes % % Monocytes % % Eosinophils % % Basophils % % Neutrophils # (1.3-7.7) k/uL Lymphocytes # (1.0-4.8) k/uL Monocytes # (0-1.0) k/uL Eosinophils # (0-0.7) k/uL Basophils # (0-0.2) k/uL Hypochromasia Anisocytosis PT (10.0-12.5) sec INR (<1.2) APTT (22.0-30.0) sec Sodium (137-145) mmol/L Potassium (3.5-5.1) mmol/L Chloride (98-107) mmol/L Carbon Dioxide (22-30) mmol/L Anion Gap mmol/L BUN (9-20) mg/dL Creatinine (0.66-1.25) mg/dL Est GFR (CKD-EPI)AfAm (>60 ml/min/1.73 sqM) Est GFR (CKD-EPI)NonAf (>60 ml/min/1.73 sqM) Glucose (74-99) mg/dL Lactic Ac Sepsis Rflx Y Plasma Lactic Acid Tomy 2.7 H* (0.7-2.0) mmol/L Calcium (8.4-10.2) mg/dL Magnesium (1.6-2.3) mg/dL Total Bilirubin (0.2-1.3) mg/dL AST (17-59) U/L ALT (4-49) U/L Alkaline Phosphatase (38-126) U/L Troponin I 0.077 H* (0.000-0.034) ng/mL NT-Pro-B Natriuret Pep pg/mL Total Protein (6.3-8.2) g/dL Albumin (3.5-5.0) g/dL Disposition Clinical Impression: Pleural effusion, Acute pulmonary edema Disposition: ADMITTED IP TO THIS HOSP Referrals: Alexx Gee MD [STAFF PHYSICIAN] - 1-2 days Time of Disposition: 12:20
[2024-09-06 09:36] LABS: Anisocytosis Slight; Basophils % (A) 1 %; Eosinophils # (A) 0.1 k/uL (0-0.7); Eosinophils % (A) 2 %; HCT 36.1 % (39.0-53.0); HGB 10.8 gm/dL (13.0-17.5); Hypochromasia Marked; Lymphocytes # (A) 0.9 k/uL (1.0-4.8); Lymphocytes % (A) 25 %; MCH 24.5 pg (25.0-35.0); MCHC 29.9 g/dL (31.0-37.0); MCV 81.8 fL (80.0-100.0); Mean Platelet Volume 8.1; Monocytes # (A) 0.3 k/uL (0-1.0); Monocytes % (A) 7 %; Neutrophils # (A) 2.4 k/uL (1.3-7.7); Neutrophils % (A) 63 %; Platelet Count 123 k/uL (150-450); RBC 4.41 m/uL (4.30-5.90); RDW 16.4 % (11.5-15.5); WBC 3.8 k/uL (3.8-10.6)
[2024-09-06] MEDS: HYDROmorphone 0.5 MG/0.5 ML SYRINGE IM STA (09:42)
[2024-09-06 09:46] LABS: ALT 12 U/L (4-49); AST 25 U/L (17-59); African American GFR (CKD) >90 (>60 ml/min/1.73 sqM); Alkaline Phosphatase 127 U/L (38-126); Anion Gap 8 mmol/L; Blood Urea Nitrogen 16 mg/dL (9-20); Calcium 9.2 mg/dL (8.4-10.2); Carbon Dioxide 28 mmol/L (22-30); Chloride 104 mmol/L (98-107); Glucose 129 mg/dL (74-99); Magnesium 1.9 mg/dL (1.6-2.3); Non-African American GFR(CKD) 86 (>60 ml/min/1.73 sqM); Potassium 4.8 mmol/L (3.5-5.1); Sodium 140 mmol/L (137-145); Total Bilirubin 0.8 mg/dL (0.2-1.3); Total Protein 7.6 g/dL (6.3-8.2)
--- NOTE | 2024-09-06 09:49 | XR ---
EXAMINATION TYPE: XR chest 2V DATE OF EXAM: 09/06/2024 9:40 AM COMPARISON: 08/18/2024 CLINICAL INDICATION: Male, 69 years old with history of difficulty breathing, TECHNIQUE: XR chest 2V view(s) obtained. FINDINGS: The heart size is normal. The pulmonary vasculature is normal. Patchy infiltrates in the right peripheral mid and lower lung field. Small to moderate right pleural effusion is likely present.. IMPRESSION: 1. Right peripheral lower lung field infiltrate with small to moderate right pleural effusion. Follow -up recommended. [facility], , 09/06/2024 9:46 AM
[2024-09-06 09:51] LABS: Prothrombin Time 10.7 sec (10.0-12.5)
[2024-09-06 09:54] LABS: NT-Pro-B-Type Natriuretic Pept 4910 pg/mL
[2024-09-06 09:57] LABS: Partial Thromboplastin Time 20.5 sec (22.0-30.0)
[2024-09-06] MEDS: FUROSEMIDE 10 MG/ML 4 ML VIAL IV STA (11:37)
[2024-09-06] MEDS: FUROSEMIDE 40 MG TAB PO SCH (16:21)
--- NOTE | 2024-09-06 17:47 | P.HPIM ---
History of Present Illness H&P Date: 09/06/24 69 year old M with PMH of CAD with CABG, CHF EF between 25 to 30%, COPD, HTN, HLD, sleep apnea, AFib presents to the ED for chest pain. Chest pain ongoing since CABG in April. Left sided, radiating to the back, sharp and stabbing in nature, 10/10 severity. Pain worsened with deep inspiration. Over the past few days he also reports worsening SOB with exertion. He denies any headache, LE edema, N/V, fever or chills, palpitations, changes in urination or bowel habits. In the ED he underwent extensive evaluation. BP 114/70, HR 86, T 98.3, RR 16, 91% on RA. CBC, Coag panel, CMP significant for Hg 10.8, Hct 36.1, Plt 123, APTT 20.5, glu 129, alk phos 127. Lactic acid 2.7. Trop 0.077. BNP 4910. EKG sinus rhythm with Q waves II/aVF, I/aVL, V3-6. CT thorax done yesterday showed no aortic dissection, bilateral pleural effusions, cirrhotic liver, colonic wall thickening similar to prior, enlarged pretracheal lymph nodes. Patient is admitted for further workup and management. General: non toxic, no distress, appears at stated age, obese Derm: no unusual rashes/lesions, warm Head: atraumatic, normocephalic, symmetric Eyes: EOMI, no lid lag, anicteric sclera ENT: Nose and ears atraumatic Neck: No cervical lymphadenopathy, trachea midline, supple Mouth: no lip lesion, mucus membranes moist Cardiovascular: S1S2 reg, no murmur, sternal scar Lungs: Decreased BS bilateral, no rhonchi, no rales, no accessory muscle use Abdominal: soft, nontender to palpation, no guarding Ext: no gross muscle atrophy, no contractures, Neuro: no gross focal neuro deficits Psych: Alert, oriented, appropriate affect Based on my assessment of this patient, this patient meets a high complexity level of care. Acute systolic CHF exacerbation: Lasix 40 mg IV BID. Strict intake and outtake. Daily weights. K > 4 and Mg > 2. Obtain Echo. Telemetry monitoring. Cardiology consult. Troponin elevation: Chest pain atypical. Pleuritic. Trend Trop/EKG to rule out ACS. Obtain Echo as above. ASA 81 mg PO QD. Plavix 75 mg PO QD. Bilateral pleural effusions: Chest US ordered. Pulmonary consult. Lasix as above. Hold Eliquis for possible thoracentesis. COPD: Not in acute exacerbation. DuoNeb Q2H PRN SOB/wheezing. HTN: Borderline hypotensive now. Hold Imdur, Lisinopril, Metoprolol. HLD: Lipitor as above. Zetia 10 mg PO QD. Lactic acidosis: Resolved. CODE STATUS: FULL CODE. DVT Prophylaxis: Heparin SQ GI Prophylaxis: Protonix PO Designated medical POA if patient is not able to make medical decisions for themselves: I have reviewed the following b2b sales consultant notes: ER note. I have reviewed the results of the following tests: As above. I have ordered the following tests: CBC and BMP in AM. Monitor renal function while on lasix. Echo. Chest US. I have discussed the care of this patient with the following independent historian: I have independently interpreted the following test below: EKG I have discussed the management of this patient with the following physician: Past Medical History Past Medical History: Coronary Artery Disease (CAD), Chest Pain / Angina, Heart Failure, COPD, GERD/Reflux, Hyperlipidemia, Hypertension, Myocardial Infarction ([place]), Osteoarthritis (OA), Sleep Apnea/CPAP/BIPAP Additional Past Medical History / Comment(s): Chronic back pain, left leg weakness. No device use for Sleep Apnea, states uses O2 at night only. Recent SOB, edema lower extremitries. States unsure about having had a heart attack. Last Myocardial Infarction Date:: 11/11/22 History of Any Multi-Drug Resistant Organisms: None Reported Past Surgical History: Back Surgery, Cholecystectomy, Coronary Bypass/CABG, Heart Catheterization With Stent, Orthopedic Surgery Additional Past Surgical History / Comment(s): Back surgery X2 with cage, left tennis elbow surgery, heart stents X7, colonoscopy, lasik eye surgery bilaterally,. emergency CABG [facility], thrombectomy. Past Anesthesia/Blood Transfusion Reactions: No Reported Reaction Additional Past Anesthesia/Blood Transfusion Reaction / Comment(s): Pt received blood during CABG without reaction. Date of Last Stent Placement:: Oct 2022 Past Psychological History: Anxiety, Depression, PTSD Smoking Status: Former smoker Past Alcohol Use History: None Reported Past Drug Use History: None Reported - Past Family History Father Family Medical History: Coronary Artery Disease (CAD), Deep Vein Thrombosis (DVT), GERD/Reflux, Hyperlipidemia, Myocardial Infarction ([place]) Additional Family Medical History / Comment(s): Father of a [place] in his 80's. Mother Family Medical History: Coronary Artery Disease (CAD), Myocardial Infarction ([place]) Additional Family Medical History / Comment(s): Mother of a [place]. Brother(s) Family Medical History: Myocardial Infarction ([place]) Additional Family Medical History / Comment(s): . Sister(s) Family Medical History: Cancer, Diabetes Mellitus Additional Family Medical History / Comment(s): Lung cancer. Other sister had Diabetes. Medications and Allergies Home Medications Medication Instructions Recorded Confirmed Type Apixaban [Eliquis] 2.5 mg PO BID #60 tab 11/18/22 09/06/24 Rx Ezetimibe [Zetia] 10 mg PO DAILY #90 tab 11/18/22 09/06/24 Rx Fluticasone Nasal [place] [Flonase 1 spray EA NOSTRIL BID PRN 01/27/23 09/06/24 History Nasal [place]] Clopidogrel [Plavix] 75 mg PO DAILY 08/21/23 09/06/24 History Cyclobenzaprine [Flexeril] 10 mg PO BID 08/21/23 09/06/24 History Sodium Bicarbonate Tab 650 mg PO TID #100 tab 01/25/24 09/06/24 Rx Ergocalciferol [Vitamin D2 (1250 1,250 mcg PO Q14D 05/10/24 09/06/24 History Mcg = 51462 Iu)] Ferrous Sulfate [Iron (65 MG 325 mg PO DAILY 05/10/24 09/06/24 History Elemental)] Gabapentin [Neurontin] 100 mg PO TID 05/10/24 09/06/24 History Dapagliflozin Propanediol [Farxiga] 10 mg PO DAILY tab 05/24/24 09/06/24 Rx Ipratropium-Albuterol Nebulize 3 ml INHALATION RT-Q2H PRN each 05/24/24 09/06/24 Rx [Duoneb 0.5 mg-3 mg/3 ml Soln] lisinopriL [Zestril] 2.5 mg PO DAILY@1200 tab 05/24/24 09/06/24 Rx ALPRAZolam [Xanax] 2 mg PO HS 07/27/24 09/06/24 History Nitroglycerin Sl Tabs [Nitrostat] 0.4 mg SUBLINGUAL Q5M PRN 08/17/24 09/06/24 History Albuterol Inhaler [Ventolin Hfa 1 - 2 puff INHALATION RT-Q6H PRN 09/05/24 09/06/24 History Inhaler] Aspirin EC [Ecotrin Low Dose] 81 mg PO DAILY 09/05/24 09/06/24 History Folic Acid 1 mg PO DAILY 09/05/24 09/06/24 History Isosorbide Dinitrate 30 mg PO DAILY 09/05/24 09/06/24 History Metoprolol Succinate (ER) [Toprol 50 mg PO DAILY 09/05/24 09/06/24 History Xl] Omeprazole [PriLOSEC] 20 mg PO DAILY 09/05/24 09/06/24 History Tamsulosin [Flomax] 0.4 mg PO DAILY 09/05/24 09/06/24 History allopurinoL [Zyloprim] 100 mg PO DAILY 09/05/24 09/06/24 History rOPINIRole HCL [Requip] 0.25 mg PO HS 09/05/24 09/06/24 History Furosemide [Lasix] 40 mg PO DAILY PRN 09/06/24 09/06/24 History Potassium Chloride ER [K-Dur 10] 10 meq PO DAILY PRN 09/06/24 09/06/24 History Allergies Allergy/AdvReac Type Severity Reaction Status Date / Time latex Allergy Swelling Verified 09/06/24 12:33 atorvastatin [From Lipitor] AdvReac JOINT PAIN Verified 09/06/24 12:33 Physical Exam Vitals: Vital Signs Temp Pulse Resp BP Pulse Ox 09/06/24 17:00 78 20 110/60 96 09/06/24 16:23 79 20 114/61 96 09/06/24 14:00 75 20 101/69 98 09/06/24 11:39 79 20 129/50 90 L 09/06/24 11:00 80 20 129/59 90 L 09/06/24 10:00 86 22 100/60 98 09/06/24 09:44 77 20 99/69 98 09/06/24 08:47 98.3 F 86 16 114/70 91 L Intake and Output 09/06/24 09/06/24 09/06/24 06:59 14:59 22:59 Output Total 1500 1500 Balance -1500 -1500 Output: Urine 1500 1500 Other: Weight 117.934 kg Results CBC & Chem 7: 09/06/24 09:05 09/06/24 09:05 Labs: Abnormal Lab Results - Last 24 Hours (Table) 09/06/24 09/06/24 09/06/24 Range/Units 09:05 09:05 09:05 Hgb 10.8 L (13.0-17.5) gm/dL Hct 36.1 L (39.0-53.0) % MCH 24.5 L (25.0-35.0) pg MCHC 29.9 L (31.0-37.0) g/dL RDW 16.4 H (11.5-15.5) % Plt Count 123 L (150-450) k/uL Lymphocytes # 0.9 L (1.0-4.8) k/uL APTT 20.5 L (22.0-30.0) sec Glucose 129 H (74-99) mg/dL Plasma Lactic Acid Tomy (0.7-2.0) mmol/L Alkaline Phosphatase 127 H (38-126) U/L Troponin I (0.000-0.034) ng/mL 09/06/24 09/06/24 Range/Units 09:05 09:05 Hgb (13.0-17.5) gm/dL Hct (39.0-53.0) % MCH (25.0-35.0) pg MCHC (31.0-37.0) g/dL RDW (11.5-15.5) % Plt Count (150-450) k/uL Lymphocytes # (1.0-4.8) k/uL APTT (22.0-30.0) sec Glucose (74-99) mg/dL Plasma Lactic Acid Tomy 2.7 H* (0.7-2.0) mmol/L Alkaline Phosphatase (38-126) U/L Troponin I 0.077 H* (0.000-0.034) ng/mL
[2024-09-06] MEDS: HYDROmorphone 1 MG/ML 1 ML SYRINGE IVP STA (18:01)
[2024-09-06] MEDS: IPRATROPIUM-ALBUTEROL 3 ML NEB INHALATION PRN (18:24)
--- NOTE | 2024-09-06 20:16 | US ---
EXAMINATION TYPE: US chest DATE OF EXAM: 09/06/2024 COMPARISON: NONE CLINICAL INDICATION: Male, 69 years old with history of pleural effusion; right pleural effusion TECHNIQUE: Grayscale imaging of the chest. Targeted ultrasound of the posterior lower bilateral pelon thoraces FINDINGS: EXAM MEASUREMENTS: Right Pleural Effusion pocket size: 13.0 cm Right skin surface to fluid distance: 4.9 cm Left Pleural Effusion pocket size: no significant fluid pocket seen at this time Right side marked for possible thoracentesis outside the dept. Left side NOT marked for possible thoracentesis outside the dept. Pulmonologists are able to review the images in the patient?s EMR. IMPRESSIONS: Moderate right pleural effusion. [facility], , 09/06/2024 8:13 PM
[2024-09-06] MEDS: ALPRAZolam 1 MG TAB PO SCH (21:03)
[2024-09-06] MEDS: FUROSEMIDE 10 MG/ML 4 ML VIAL IV SCH (21:03)
[2024-09-06] MEDS: HEPARIN SODIUM,PORCINE 5,000 UNIT/ML 1 ML VIAL SQ SCH (21:03)
[2024-09-06] MEDS: HYDROmorphone 0.5 MG/0.5 ML SYRINGE IVP PRN (21:11)
[2024-09-06] MEDS: GABAPENTIN 100 MG CAP PO SCH (22:34)
[2024-09-07 06:46] LABS: Anisocytosis Slight; HCT 34.9 % (39.0-53.0); HGB 10.6 gm/dL (13.0-17.5); Hypochromasia Marked; MCH 24.6 pg (25.0-35.0); MCHC 30.4 g/dL (31.0-37.0); MCV 80.8 fL (80.0-100.0); Mean Platelet Volume 9.1; Platelet Count 165 k/uL (150-450); RBC 4.32 m/uL (4.30-5.90); RDW 16.2 % (11.5-15.5); WBC 4.6 k/uL (3.8-10.6)
[2024-09-07 06:58] LABS: African American GFR (CKD) 85 (>60 ml/min/1.73 sqM); Anion Gap 6 mmol/L; Blood Urea Nitrogen 17 mg/dL (9-20); Calcium 8.6 mg/dL (8.4-10.2); Carbon Dioxide 31 mmol/L (22-30); Chloride 100 mmol/L (98-107); Glucose 101 mg/dL (74-99); Magnesium 1.7 mg/dL (1.6-2.3); Non-African American GFR(CKD) 74 (>60 ml/min/1.73 sqM); Potassium 3.4 mmol/L (3.5-5.1); Sodium 137 mmol/L (137-145)
[2024-09-07] MEDS: DAPAGLIFLOZIN PROPANEDIOL 10 MG TABLET PO SCH (08:04)
[2024-09-07] MEDS: allopurinoL 100 MG TAB PO SCH (08:04)
[2024-09-07] MEDS: CLOPIDOGREL 75 MG TAB PO SCH (08:04)
[2024-09-07] MEDS: TAMSULOSIN 0.4 MG CAP.ER.24H PO SCH (08:04)
[2024-09-07] MEDS: PANTOPRAZOLE 40 MG TABLET PO SCH (08:04)
[2024-09-07] MEDS: ASPIRIN 81 MG PO SCH (08:04)
[2024-09-07] MEDS: EZETIMIBE 10 MG TAB PO SCH (08:04)
[2024-09-07] MEDS: FERROUS SULFATE 325 MG TAB PO SCH (08:04)
--- NOTE | 2024-09-07 08:47 | P.PN ---
Subjective Progress Note Date: 09/07/24 69 year old M with PMH of CAD with CABG, CHF EF between 25 to 30%, COPD, HTN, HLD, sleep apnea, AFib presents to the ED for chest pain. Chest pain ongoing since CABG in April. Left sided, radiating to the back, sharp and stabbing in nature, 10/10 severity. Pain worsened with deep inspiration. Over the past few days he also reports worsening SOB with exertion. He denies any headache, LE edema, N/V, fever or chills, palpitations, changes in urination or bowel habits. In the ED he underwent extensive evaluation. BP 114/70, HR 86, T 98.3, RR 16, 91% on RA. CBC, Coag panel, CMP significant for Hg 10.8, Hct 36.1, Plt 123, APTT 20.5, glu 129, alk phos 127. Lactic acid 2.7. Trop 0.077. BNP 4910. EKG sinus rhythm with Q waves II/aVF, I/aVL, V3-6. CT thorax done yesterday showed no aortic dissection, bilateral pleural effusions, cirrhotic liver, colonic wall thickening similar to prior, enlarged pretracheal lymph nodes. Patient is admitted for further workup and management. 09/07 Patient was seen and examined. Continues to report pleuritic and positional chest pain. He has had this pain since his CABG. Continued SOB. 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 No lightheadedness or syncope. No head trauma. Troponin 0.097, 0.084. Lactic acid 1.8. CBC and BMP significant for Hg 10.6, Hct 34.9, K 3.4, bicarb 31, glu 101. Mag 1.7. Chest US marked for possible thoracentesis. General: non toxic, no distress, appears at stated age, obese Derm: no unusual rashes/lesions, warm Head: atraumatic, normocephalic, symmetric Eyes: EOMI, no lid lag, anicteric sclera ENT: Nose and ears atraumatic Neck: No cervical lymphadenopathy, trachea midline, supple Mouth: no lip lesion, mucus membranes moist Cardiovascular: S1S2 reg, no murmur, sternal scar Lungs: Decreased BS bilateral, no rhonchi, no rales, no accessory muscle use Ext: no gross muscle atrophy, no contractures, Neuro: no gross focal neuro deficits Psych: Alert, oriented, appropriate affect Based on my assessment of this patient, this patient meets a high complexity level of care. Acute systolic CHF exacerbation: Lasix 40 mg IV BID. Strict intake and outtake. Daily weights. K > 4 and Mg > 2. Obtain Echo. Telemetry monitoring. Cardiology consult. Troponin elevation: Chest pain atypical. Pleuritic. Trop flat. Obtain Echo as above. ASA 81 mg PO QD. Plavix 75 mg PO QD. Bilateral pleural effusions: Chest US completed. Pulmonary consult. Lasix as above. Hold Eliquis for possible thoracentesis. HypoK: KCl 40 meq PO x 1. Mag sulfate 2g IV x 1. Fall: Fall precautions. PT and OT consult. COPD: Not in acute exacerbation. DuoNeb Q2H PRN SOB/wheezing. HTN: Borderline hypotensive now. Hold Imdur, Lisinopril, Metoprolol. HLD: Lipitor as above. Zetia 10 mg PO QD. Lactic acidosis: Resolved. CODE STATUS: FULL CODE. DVT Prophylaxis: Heparin SQ GI Prophylaxis: Protonix PO Designated medical POA if patient is not able to make medical decisions for themselves: I have reviewed the following transportation sales consultant notes: I have reviewed the results of the following tests: CBC, BMP, Mag, Chest US, Lactic acid, Trop x 2. I have ordered the following tests: Echo pending. I have discussed the care of this patient with the following independent historian: ALEX. I have independently interpreted the following test below: I have discussed the management of this patient with the following physician: Objective - Vital Signs Vital signs: Vital Signs Temp 97.2 F L 09/07/24 06:00 Pulse 78 09/07/24 08:38 Resp 18 09/07/24 08:38 BP 116/92 09/07/24 08:25 Pulse Ox 98 09/07/24 08:00 FiO2 Intake & Output 09/06/24 09/07/24 09/07/24 18:59 06:59 18:59 Intake Total 750 Output Total 3000 1000 Balance -3000 -250 Weight 117.934 kg Intake: Oral 750 Output: Urine 3000 1000 - Labs CBC & Chem 7: 09/07/24 06:10 09/07/24 06:07 Labs: Abnormal Lab Results - Last 24 Hours (Table) 09/06/24 09/06/24 09/06/24 Range/Units 09:05 09:05 09:05 Hgb 10.8 L (13.0-17.5) gm/dL Hct 36.1 L (39.0-53.0) % MCH 24.5 L (25.0-35.0) pg MCHC 29.9 L (31.0-37.0) g/dL RDW 16.4 H (11.5-15.5) % Plt Count 123 L (150-450) k/uL Lymphocytes # 0.9 L (1.0-4.8) k/uL APTT 20.5 L (22.0-30.0) sec Potassium (3.5-5.1) mmol/L Carbon Dioxide (22-30) mmol/L Glucose 129 H (74-99) mg/dL Plasma Lactic Acid Tomy (0.7-2.0) mmol/L Alkaline Phosphatase 127 H (38-126) U/L Troponin I (0.000-0.034) ng/mL 09/06/24 09/06/24 09/06/24 Range/Units 09:05 09:05 16:36 Hgb (13.0-17.5) gm/dL Hct (39.0-53.0) % MCH (25.0-35.0) pg MCHC (31.0-37.0) g/dL RDW (11.5-15.5) % Plt Count (150-450) k/uL Lymphocytes # (1.0-4.8) k/uL APTT (22.0-30.0) sec Potassium (3.5-5.1) mmol/L Carbon Dioxide (22-30) mmol/L Glucose (74-99) mg/dL Plasma Lactic Acid Tomy 2.7 H* (0.7-2.0) mmol/L Alkaline Phosphatase (38-126) U/L Troponin I 0.077 H* 0.097 H* (0.000-0.034) ng/mL 09/06/24 09/07/24 09/07/24 Range/Units 20:06 06:07 06:10 Hgb 10.6 L (13.0-17.5) gm/dL Hct 34.9 L (39.0-53.0) % MCH 24.6 L (25.0-35.0) pg MCHC 30.4 L (31.0-37.0) g/dL RDW 16.2 H (11.5-15.5) % Plt Count (150-450) k/uL Lymphocytes # (1.0-4.8) k/uL APTT (22.0-30.0) sec Potassium 3.4 L (3.5-5.1) mmol/L Carbon Dioxide 31 H (22-30) mmol/L Glucose 101 H (74-99) mg/dL Plasma Lactic Acid Tomy (0.7-2.0) mmol/L Alkaline Phosphatase (38-126) U/L Troponin I 0.084 H* (0.000-0.034) ng/mL
[2024-09-07] MEDS: POTASSIUM CHLORIDE ER 20 MEQ TAB.ER PO STA (10:34)
[2024-09-07] MEDS: MAGNESIUM SULFATE-D5W PMX 1 GM in DEXTROSE/WATER 1 100ML.BAG IVPB SCH (10:34)
--- NOTE | 2024-09-07 11:43 | XR ---
EXAMINATION TYPE: XR chest 1V portable DATE OF EXAM: 09/07/2024 COMPARISON: 09/06/2024 HISTORY: Postthoracentesis right side. Shortness of breath TECHNIQUE: Single frontal view of the chest is obtained. FINDINGS: There is a mild decrease in the right pleural effusion following thoracentesis however [id number] ate pleural effusion persists. Left lung is clear. There is cardiomegaly and there is mild pulmonary vascular congestion. There is no pneumothorax. The osseous structures are intact IMPRESSION: 1. Mild reduction in the right pleural effusion following thoracentesis. There is no pneumothorax. 2. Cardiomegaly with mild pulmonary vascular congestion. [facility], , 09/07/2024 11:40 AM
--- NOTE | 2024-09-07 13:17 | P.CRDCN ---
History of Present Illness Consult date: 09/07/24 History of present illness: HISTORY OF PRESENTING ILLNESS 69-year-old with past medical history of CAD status post CABG, subsequent redo CABG, severe ischemic cardiomyopathy, valvular heart disease, hypertension hyperlipidemia CKD. Pleural effusion, Known to Dr. Ni. Came to the hospital because of worsening increased shortness of breath. During this hospitalization he was noticed to have right- sided pleural effusion which was large in size. For this he got therapeutic thoracentesis done. He had another therapeutic thoracentesis done few months ago. Admission ECG shows sinus rhythm with T wave inversions in lateral leads and Q waves inferior which is unchanged from prior exam. REVIEW OF SYSTEMS 14 point review of system is negative except what is mentioned above in HPI. PHYSICAL EXAMINATION Vital signs reviewed. Head: Normocephalic. Eyes: Sclerae nonicteric. Neck: Brisk carotid upstroke, has elevated JVD Lungs: Diminished breath sounds in right lower lung base, mild crackles audible Heart: Irregularly irregular pulse, mild systolic murmur audible Abdomen: Soft nontender, positive bowel sounds. Extremities: No edema, intact distal pulses. Neuro: Alert, oritented, no focal deficits. Detailed neuro exam was not performed. ASSESSMENT Recurrent right-sided pleural effusion Acute hypoxic respiratory failure on chronic hypoxic respiratory failure Severe ischemic cardiomyopathy with a EF of 20 to 25% Valvular heart disease CAD status post CABG, redo CABG Last echo from April 2024 showed an EF of 20 to 25% PLAN There are some documentation previously that patient is atrial fibrillation. Currently is not on any anticoagulation. Instead he is on aspirin and Plavix. On this admission I was not able to find any evidence of atrial fibrillation. 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 continue aspirin and plavix Continue IV Lasix 40 mg twice daily. Transition him to Bumex 1 mg p.o. daily when he goes home. Start Aldactone 25 mg daily. Continue Farxiga 10 mg daily Continue metoprolol succinate 50 mg daily, Zetia 10 mg daily, Stop lisinopril. Start Entresto 24/26 mg twice daily. He should be considered for a right pleurodesis procedure. Monitor blood pressure and heart rate. Jose J Pérez MD, FACC, RPVI Thank you for allowing [facility] to participate in this patient's care. Feel free to reach out in case of any followup questions Past Medical History Past Medical History: Coronary Artery Disease (CAD), Chest Pain / Angina, Heart Failure, COPD, GERD/Reflux, Hyperlipidemia, Hypertension, Myocardial Infarction (NE), Osteoarthritis (OA), Sleep Apnea/CPAP/BIPAP Additional Past Medical History / Comment(s): Chronic back pain, left leg weakness. No device use for Sleep Apnea, states uses O2 at night only. Recent SOB, edema lower extremitries. States unsure about having had a heart attack. Last Myocardial Infarction Date:: 11/11/22 History of Any Multi-Drug Resistant Organisms: None Reported Past Surgical History: Back Surgery, Cholecystectomy, Coronary Bypass/CABG, Heart Catheterization With Stent, Orthopedic Surgery Additional Past Surgical History / Comment(s): Back surgery X2 with cage, left tennis elbow surgery, heart stents X7, colonoscopy, lasik eye surgery bilaterally,. emergency CABG [facility] [place], thrombectomy. Past Anesthesia/Blood Transfusion Reactions: No Reported Reaction Additional Past Anesthesia/Blood Transfusion Reaction / Comment(s): Pt received blood during CABG without reaction. Date of Last Stent Placement:: Oct 2022 Past Psychological History: Anxiety, Depression, PTSD Smoking Status: Former smoker Past Alcohol Use History: None Reported Past Drug Use History: None Reported - Past Family History Father Family Medical History: Coronary Artery Disease (CAD), Deep Vein Thrombosis (DVT), GERD/Reflux, Hyperlipidemia, Myocardial Infarction (NE) Additional Family Medical History / Comment(s): Father of a NE in his 80's. Mother Family Medical History: Coronary Artery Disease (CAD), Myocardial Infarction (NE) Additional Family Medical History / Comment(s): Mother of a NE. Brother(s) Family Medical History: Myocardial Infarction (NE) Additional Family Medical History / Comment(s): . Sister(s) Family Medical History: Cancer, Diabetes Mellitus Additional Family Medical History / Comment(s): Lung cancer. Other sister had Diabetes. Medications and Allergies Home Medications Medication Instructions Recorded Confirmed Type Apixaban [Eliquis] 2.5 mg PO BID #60 tab 11/18/22 09/06/24 Rx Ezetimibe [Zetia] 10 mg PO DAILY #90 tab 11/18/22 09/06/24 Rx Fluticasone Nasal [place] [Flonase 1 spray EA NOSTRIL BID PRN 01/27/23 09/06/24 History Nasal [place]] Clopidogrel [Plavix] 75 mg PO DAILY 08/21/23 09/06/24 History Cyclobenzaprine [Flexeril] 10 mg PO BID 08/21/23 09/06/24 History Sodium Bicarbonate Tab 650 mg PO TID #100 tab 01/25/24 09/06/24 Rx Ergocalciferol [Vitamin D2 (1250 1,250 mcg PO Q14D 05/10/24 09/06/24 History Mcg = 39915 Iu)] Ferrous Sulfate [Iron (65 MG 325 mg PO DAILY 05/10/24 09/06/24 History Elemental)] Gabapentin [Neurontin] 100 mg PO TID 05/10/24 09/06/24 History Dapagliflozin Propanediol [Farxiga] 10 mg PO DAILY tab 05/24/24 09/06/24 Rx Ipratropium-Albuterol Nebulize 3 ml INHALATION RT-Q2H PRN each 05/24/24 09/06/24 Rx [Duoneb 0.5 mg-3 mg/3 ml Soln] lisinopriL [Zestril] 2.5 mg PO DAILY@1200 tab 05/24/24 09/06/24 Rx ALPRAZolam [Xanax] 2 mg PO HS 07/27/24 09/06/24 History Nitroglycerin Sl Tabs [Nitrostat] 0.4 mg SUBLINGUAL Q5M PRN 08/17/24 09/06/24 History Albuterol Inhaler [Ventolin Hfa 1 - 2 puff INHALATION RT-Q6H PRN 09/05/24 09/06/24 History Inhaler] Aspirin EC [Ecotrin Low Dose] 81 mg PO DAILY 09/05/24 09/06/24 History Folic Acid 1 mg PO DAILY 09/05/24 09/06/24 History Isosorbide Dinitrate 30 mg PO DAILY 09/05/24 09/06/24 History Metoprolol Succinate (ER) [Toprol 50 mg PO DAILY 09/05/24 09/06/24 History Xl] Omeprazole [PriLOSEC] 20 mg PO DAILY 09/05/24 09/06/24 History Tamsulosin [Flomax] 0.4 mg PO DAILY 09/05/24 09/06/24 History allopurinoL [Zyloprim] 100 mg PO DAILY 09/05/24 09/06/24 History rOPINIRole HCL [Requip] 0.25 mg PO HS 09/05/24 09/06/24 History Furosemide [Lasix] 40 mg PO DAILY PRN 09/06/24 09/06/24 History Potassium Chloride ER [K-Dur 10] 10 meq PO DAILY PRN 09/06/24 09/06/24 History Allergies Allergy/AdvReac Type Severity Reaction Status Date / Time latex Allergy Swelling Verified 09/06/24 12:33 atorvastatin [From Lipitor] AdvReac JOINT PAIN Verified 09/06/24 12:33 Physical Exam Vitals: Vital Signs Temp Pulse Resp BP Pulse Ox 09/07/24 10:33 76 20 87/50 94 L 09/07/24 10:00 74 18 91/69 94 L 09/07/24 08:38 78 18 09/07/24 08:31 79 18 09/07/24 08:25 116/92 09/07/24 08:00 69 22 102/56 98 09/07/24 06:00 97.2 F L 67 15 98/50 97 09/07/24 05:16 73 18 90/51 96 09/07/24 01:35 69 18 117/56 94 L 09/06/24 22:08 76 18 108/66 96 09/06/24 18:36 80 09/06/24 18:25 79 97 09/06/24 18:00 78 20 106/64 95 09/06/24 17:00 78 20 110/60 96 09/06/24 16:23 79 20 114/61 96 09/06/24 14:00 75 20 101/69 98 Intake and Output 09/06/24 09/07/24 09/07/24 22:59 06:59 14:59 Intake Total 750 Output Total 1500 1000 5100 Balance -1500 -250 -5100 Intake: Oral 750 Output: Chest Tube Drainage 1600 Pleural Catheter 1600 Urine 1500 1000 3500 Results 09/07/24 06:10 09/07/24 06:07 Cardiac Enzymes 09/06/24 09/06/24 Range/Units 16:36 20:06 Troponin I 0.097 H* 0.084 H* (0.000-0.034) ng/mL CBC 09/07/24 Range/Units 06:10 WBC 4.6 (3.8-10.6) k/uL RBC 4.32 (4.30-5.90) m/uL Hgb 10.6 L (13.0-17.5) gm/dL Hct 34.9 L (39.0-53.0) % Plt Count 165 (150-450) k/uL Comprehensive Metabolic Panel 09/07/24 Range/Units 06:07 Sodium 137 (137-145) mmol/L Potassium 3.4 L (3.5-5.1) mmol/L Chloride 100 (98-107) mmol/L Carbon Dioxide 31 H (22-30) mmol/L BUN 17 (9-20) mg/dL Creatinine 1.05 (0.66-1.25) mg/dL Glucose 101 H (74-99) mg/dL Calcium 8.6 (8.4-10.2) mg/dL Current Medications Generic Name Dose Route Start Last Admin Trade Name Freq PRN Reason Stop Dose Admin Albuterol/Ipratropium 3 ml 09/06/24 16:19 09/07/24 08:31 Ipratropium-Albuterol 3 Ml Neb INHALATION 3 ml RT-Q2H PRN Administration Shortness Of Breath Or Wheezing Allopurinol 100 mg 09/07/24 09:00 09/07/24 08:04 Allopurinol 100 Mg Tab PO 100 mg DAILY ELIANA Administration Alprazolam 2 mg 09/06/24 21:00 09/06/24 21:03 Alprazolam 1 Mg Tab PO 2 mg HS ELIANA Administration Aspirin 81 mg 09/07/24 09:00 09/07/24 08:04 Aspirin 81 Mg PO 81 mg DAILY ELIANA Administration Clopidogrel Bisulfate 75 mg 09/07/24 09:00 09/07/24 08:04 Clopidogrel 75 Mg Tab PO 75 mg DAILY ELIANA Administration Cyclobenzaprine HCl 10 mg 09/06/24 16:19 Cyclobenzaprine 10 Mg Tab PO BID PRN Spasms Dapagliflozin 10 mg 09/07/24 09:00 09/07/24 08:04 Dapagliflozin Propanediol 10 Mg Tablet PO 10 mg DAILY ELIANA Administration Ezetimibe 10 mg 09/07/24 09:00 09/07/24 08:04 Ezetimibe 10 Mg Tab PO 10 mg DAILY ELIANA Administration Ferrous Sulfate 325 mg 09/07/24 09:00 09/07/24 08:04 Ferrous Sulfate 325 Mg Tab PO 325 mg DAILY ELIANA Administration Furosemide 40 mg 09/06/24 21:00 09/07/24 08:06 Furosemide 10 Mg/Ml 4 Ml Vial IV 40 mg Q12HR ELIANA Administration Gabapentin 100 mg 09/06/24 22:00 09/07/24 08:04 Gabapentin 100 Mg Cap PO 100 mg TID ELIANA Administration Heparin Sodium (Porcine) 5,000 unit 09/06/24 21:00 09/07/24 08:06 Heparin Sodium,Porcine 5,000 Unit/Ml 1 Ml Vial SQ 5,000 unit Q12HR ELIANA Administration Hydromorphone HCl 0.5 mg 09/06/24 17:40 09/07/24 11:44 Hydromorphone 0.5 Mg/0.5 Ml Syringe IVP 0.5 mg Q3HR PRN Administration Pain Oxycodone/Acetaminophen 1 each 09/07/24 08:44 Oxycodone-Apap 10-325mg 1 Each Tab PO Q4HR PRN Pain Pantoprazole Sodium 40 mg 09/07/24 09:00 09/07/24 08:04 Pantoprazole 40 Mg Tablet PO 40 mg DAILY ELIANA Administration Ropinirole HCl 0.25 mg 09/06/24 21:00 09/06/24 21:02 Ropinirole Hcl 0.25 Mg Tab PO 0.25 mg HS ELIANA Administration Spironolactone 25 mg 09/07/24 12:45 Spironolactone 25 Mg Tab PO DAILY ELIANA Tamsulosin HCl 0.4 mg 09/07/24 09:00 09/07/24 08:04 Tamsulosin 0.4 Mg Cap.Er.24h PO 0.4 mg DAILY ELIANA Administration Intake and Output 09/06/24 09/07/24 09/07/24 22:59 06:59 14:59 Intake Total 750 Output Total 1500 1000 5100 Balance -1500 -250 -5100 Intake: Oral 750 Output: Chest Tube Drainage 1600 Pleural Catheter 1600 Urine 1500 1000 3500 09/07/24 06:10 09/07/24 06:07
--- NOTE | 2024-09-07 14:56 | P.PN ---
Subjective Progress Note Date: 09/07/24 09/07/2024, the patient is being seen for a follow-up. Underwent a thoracentesis of the right lung today and a total of 1.7 L of fluid was aspirated. No complications. No pneumothorax. Follow-up chest x-ray shows improvement in volume status in the right lung. There is some residual right-sided pleural effusion. Remains on Lasix 40 mg IV every 12 hours. Remains on Aldactone. Rest of medications remain unchanged. The patient is currently on oxygen at 4 L/min nasal cannula. The white cell count is at 4.6 with a hemoglobin 10.6 and a platelet count of 165. BUN 17 with a creatinine of 1.05 and a sodium levels at 137. On a separate note, the patient was taken off the lisinopril and started on Entresto by cardiology. Started Aldactone. Lasix to be switched to Bumex also. Remains on Plavix. Remains on aspirin. Objective - Vital Signs Vital signs: Vital Signs Temp 97.2 F L 09/07/24 06:00 Pulse 76 09/07/24 10:33 Resp 20 09/07/24 10:33 BP 87/50 09/07/24 10:33 Pulse Ox 94 L 09/07/24 10:33 FiO2 Intake & Output 09/06/24 09/07/24 09/07/24 18:59 06:59 18:59 Intake Total 750 Output Total 3000 1000 5100 Balance -3000 -250 -5100 Weight 117.934 kg Intake: Oral 750 Output: Chest Tube Drainage 1600 Pleural Catheter 1600 Urine 3000 1000 3500 - Exam General Appearance the patient is calm and comfortable, no acute distress. Currently on 4 L of oxygen by nasal cannula. Head exam was generally normal. There was no scleral icterus or corneal arcus. Mucous membranes were moist. Neck was supple and without jugular venous distension, thyromegaly, or carotid bruits. Carotids were easily palpable bilaterally. There was no adenopathy. Lung sounds are diminished and the patient has diminished breath sound right lung base along with dullness to percussion. Thoracotomy scar over the left lateral chest area is clean. The patient also has an anterior thoracotomy scar. Cardiac exam revealed the PMI to be normally situated and sized. The rhythm was regular and no extrasystoles were noted during several minutes of auscultation. The first and second heart sounds were normal and physiologic splitting of the second heart sound was noted. There were no murmurs, rubs, clicks, or gallops. Abdominal exam revealed normal bowel sounds. The abdomen was soft, non-tender, and without masses, organomegaly, or appreciable enlargement of the abdominal aorta. Examination of the extremities revealed easily palpable radial, femoral and pedal pulses. There was no cyanosis, clubbing or edema. Examination of the skin revealed no evidence of significant rashes, suspicious appearing nevi or other concerning lesions. Neurologically, the patient is awake and alert and the patient does not have any focal neurological deficit. Cranial nerves are essentially intact. - Labs CBC & Chem 7: 09/07/24 06:10 09/07/24 06:07 Labs: Abnormal Lab Results - Last 24 Hours (Table) 09/06/24 09/06/24 09/07/24 Range/Units 16:36 20:06 06:07 Hgb (13.0-17.5) gm/dL Hct (39.0-53.0) % MCH (25.0-35.0) pg MCHC (31.0-37.0) g/dL RDW (11.5-15.5) % Potassium 3.4 L (3.5-5.1) mmol/L Carbon Dioxide 31 H (22-30) mmol/L Glucose 101 H (74-99) mg/dL Troponin I 0.097 H* 0.084 H* (0.000-0.034) ng/mL 09/07/24 Range/Units 06:10 Hgb 10.6 L (13.0-17.5) gm/dL Hct 34.9 L (39.0-53.0) % MCH 24.6 L (25.0-35.0) pg MCHC 30.4 L (31.0-37.0) g/dL RDW 16.2 H (11.5-15.5) % Potassium (3.5-5.1) mmol/L Carbon Dioxide (22-30) mmol/L Glucose (74-99) mg/dL Troponin I (0.000-0.034) ng/mL Assessment and Plan Plan: Recurrent large right-sided pleural effusion. Status post thoracentesis with 1.8 L of fluid removed on 07/27/2024 and on 05/17/2024 with evacuation of 1.7 L of pleural fluid and was a transudate, cytology negative for malignancy. Acute on top of chronic shortness of breath secondary to above. No significant hypoxemia. Triple-vessel coronary artery disease, unstable angina with history of coronary artery disease/previous myocardial infarction/multiple stents/thrombectomy on Eliquis for anticoagulation/CABG 20 years ago, status post two-vessel redo off- pump CABG Ischemic cardiomyopathy/chronic systolic heart failure with reduced ejection fraction, EF 25-30%, repeat limited echo done yesterday demonstrates EF 20-25%, History of hypertension Hyperlipidemia, treated with Zetia, patient has muscle pain with statins, cholesterol 121, LDL 52, triglycerides 180 Left internal carotid artery stenosis, 50-79% Chronic anemia Chronic ongoing tobacco use Severe COPD , FEV1 43% of predicted Obstructive sleep apnea Chronic back pain with history of back surgery Plan Thoracentesis was done today and 1.7 L of pleural fluid was aspirated, no complications Continue IV Lasix to be switched to Bumex Continue Aldactone Consider switching this patient to Entresto Anticoagulation can be resumed Will follow
--- NOTE | 2024-09-07 14:57 | P.PCN ---
Date of Procedure: 09/07/24 Operative Findings: Preoperative Diagnosis: Right pleural effusion Postoperative Diagnosis: Right pleural effusion Procedure(s) Performed: Right thoracentesis Anesthesia: local Surgeon: Katarina Wilson Estimated Blood Loss (ml): 0 Pathology: none sent Condition: stable Disposition: floor Operative Findings: A time out was performed and the chest x-ray was reviewed, the appropriate side was confirmed and marked. My hands were washed immediately prior to the procedure. I wore a surgical cap, mask with protective eyewear, sterile gown and sterile gloves throughout the procedure. The patient was prepped and draped in a sterile manner using chlorhexidine scrub after the appropriate level was percussed and confirmed by ultrasound. 1% lidocaine was used to anesthesize the skin, subcutaneous tissue, superior aspect of the rib periosteum and parietal pleura. A finder needle was then introduced over the superior aspect of the rib to locate the pleural fluid; 2colored fluid was aspirated at a depth of approximately 2 cm. A 10-blade scalpel was used to nanette the skin at the insertion site. The [id number] needle was then introduced through the skin incision into the pleural space using negative aspiration pressure and the red colometric indicator to confirm appropriate positioning of the needle. The thoracentesis catheter was then threaded without difficulty. 1700ml of turbid colored fluid was removed without difficulty. The catheter was then removed. No immediate complications were noted during the procedure. A post-procedure chest x-ray is pending at the time of this note. The fluid will not be sent for studies. Estimated blood loss is 0cc
--- NOTE | 2024-09-07 15:04 | P.CNPUL ---
History of Present Illness Consult date: 09/06/24 Reason for consult: dyspnea, pleural effusion History of present illness: this is a 69-year-old male patient is coming in for worsening shortness of breath and recurrent right-sided pleural effusion. The patient is known to me from previous hospital admissions. The patient is known to have coronary artery disease and the patient has undergone previous coronary intervention multiple stenting for previous myocardial infarction's and the patient has undergone previous coronary artery bypass surgery around 20 years ago and more recently, in April 2024, the patient underwent two-vessel redo off-pump bypass surgery. He is known to have ischemic cardiomyopathy with an ejection fraction of around 20 to 25%. He is also known to have hypertension hyperlipidemia and left carotid artery stenosis in the order of 50 to 79%. Previous thoracentesis done on this patient on the right side showed a transudative pleural fluid with negative cytology. His most recent echocardiogram done on 11/24/2023 showed an 11 degree ejection fraction of 30 to 35%, moderate aortic insufficiency and CT of the chest that was done on 07/27/2024 confirmed the presence of right-sided pleural effusion, recurrent with some right basilar atelectasis and some changes indicating chronic liver cirrhosis and a mildly enlarged right hilar lymph node. Noted the patient has undergone thoracentesis on 08/18/2024 with evacuation of 1.8 L of pleural fluid and another thoracentesis was done on 05/17/2024 and 07/27/2024 with removal of 1.8 L of pleural fluid. He is currently on anticoagulation with Eliquis. White cell count is at 4.6, hemoglobin is 10.6 and a platelet count of 165. BUN 17 with a creatinine of 1.05. Sodium levels at 137. Troponins at 0.09 and 0.08 respectively x 2. Lactic acid level is at 1.8. Chest x-ray shows a moderate-sized right-sided pleural effusion. Patient was seen by cardiology. Medication adjustments will be done and the patient is started on Aldactone, Farxiga to be continued, metoprolol to be continued and the patient is being considered to be switched from lisinopril to Entresto. His current cardiac rhythm is sinus. CT scan of the thoracic aorta done showed no evidence of any dissection. Post bypass changes, moderate-sized right-sided pleural effusion, small left-sided pleural effusion, nodular liver contour, sta ble pretracheal lymph node measuring 1.2 cm in size in addition to multiple other smaller mediastinal and hilar lymph nodes. Review of Systems Constitutional: Reports as per HPI Eyes: denies as per HPI, denies blurred vision, denies bulging eye, denies decreased vision, denies diplopia, denies discharge, denies dry eye, denies irritation, denies itching, denies pain, denies photophobia, denies loss of pe ripheral vision, denies loss of vision, denies tunnel vision/blind spots Ears: deny: decreased hearing, ear discharge, earache, tinnitus Breasts: absent: as per HPI, gynecomastia Cardiovascular: Reports decreased exercise tolerance, Reports dyspnea on exertion Respiratory: Reports dyspnea Gastrointestinal: Reports as per HPI Genitourinary: Reports as per HPI Musculoskeletal: Reports as per HPI Musculoskeletal: absent: ankle pain, ankle stiffness, ankle swelling, as per HPI, elbow pain, elbow stiffness, elbow swelling, foot pain, foot stiffness, foot swelling, hand pain, hand stiffness, hand swelling, hip pain, hip stiffness, hip swelling, knee pain, knee stiffness, knee swelling, shoulder pa in, shoulder stiffness, shoulder swelling, wrist pain, wrist stiffness, wrist swelling Integumentary: Reports as per HPI Neurological: Reports as per HPI Psychiatric: Reports as per HPI Endocrine: Reports as per HPI Hematologic/Lymphatic: Reports as per HPI Allergic/Immunologic: Reports as per HPI Past Medical History Past Medical History: Coronary Artery Disease (CAD), Chest Pain / Angina, Heart Failure, COPD, GERD/Reflux, Hyperlipidemia, Hypertension, Myocardial Infarction (PR), Osteoarthritis (OA), Sleep Apnea/CPAP/BIPAP Additional Past Medical History / Comment(s): Chronic back pain, left leg weakness. No device use for Sleep Apnea, states uses O2 at night only. Recent SOB, edema lower extremitries. States unsure about having had a heart attack. Last Myocardial Infarction Date:: 11/11/22 History of Any Multi-Drug Resistant Organisms: None Reported Past Surgical History: Back Surgery, Cholecystectomy, Coronary Bypass/CABG, Heart Catheterization With Stent, Orthopedic Surgery Additional Past Surgical History / Comment(s): Back surgery X2 with cage, left tennis elbow surgery, heart stents X7, colonoscopy, lasik eye surgery bilaterally,. emergency CABG [facility] [place], thrombectomy. Past Anesthesia/Blood Transfusion Reactions: No Reported Reaction Additional Past Anesthesia/Blood Transfusion Reaction / Comment(s): Pt received blood during CABG without reaction. Date of Last Stent Placement:: Oct 2022 Past Psychological History: Anxiety, Depression, PTSD Smoking Status: Former smoker Past Alcohol Use History: None Reported Past Drug Use History: None Reported - Past Family History Father Family Medical History: Coronary Artery Disease (CAD), Deep Vein Thrombosis (DVT), GERD/Reflux, Hyperlipidemia, Myocardial Infarction (PR) Additional Family Medical History / Comment(s): Father of a PR in his 80's. Mother Family Medical History: Coronary Artery Disease (CAD), Myocardial Infarction (PR) Additional Family Medical History / Comment(s): Mother of a PR. Brother(s) Family Medical History: Myocardial Infarction (PR) Additional Family Medical History / Comment(s): . Sister(s) Family Medical History: Cancer, Diabetes Mellitus Additional Family Medical History / Comment(s): Lung cancer. Other sister had Diabetes. Medications and Allergies Home Medications Medication Instructions Recorded Confirmed Type Apixaban [Eliquis] 2.5 mg PO BID #60 tab 11/18/22 09/06/24 Rx Ezetimibe [Zetia] 10 mg PO DAILY #90 tab 11/18/22 09/06/24 Rx Fluticasone Nasal [place] [Flonase 1 spray EA NOSTRIL BID PRN 01/27/23 09/06/24 History Nasal [place]] Clopidogrel [Plavix] 75 mg PO DAILY 08/21/23 09/06/24 History Cyclobenzaprine [Flexeril] 10 mg PO BID 08/21/23 09/06/24 History Sodium Bicarbonate Tab 650 mg PO TID #100 tab 01/25/24 09/06/24 Rx Ergocalciferol [Vitamin D2 (1250 1,250 mcg PO Q14D 05/10/24 09/06/24 History Mcg = 13588 Iu)] Ferrous Sulfate [Iron (65 MG 325 mg PO DAILY 05/10/24 09/06/24 History Elemental)] Gabapentin [Neurontin] 100 mg PO TID 05/10/24 09/06/24 History Dapagliflozin Propanediol [Farxiga] 10 mg PO DAILY tab 05/24/24 09/06/24 Rx Ipratropium-Albuterol Nebulize 3 ml INHALATION RT-Q2H PRN each 05/24/24 09/06/24 Rx [Duoneb 0.5 mg-3 mg/3 ml Soln] lisinopriL [Zestril] 2.5 mg PO DAILY@1200 tab 05/24/24 09/06/24 Rx ALPRAZolam [Xanax] 2 mg PO HS 07/27/24 09/06/24 History Nitroglycerin Sl Tabs [Nitrostat] 0.4 mg SUBLINGUAL Q5M PRN 08/17/24 09/06/24 History Albuterol Inhaler [Ventolin Hfa 1 - 2 puff INHALATION RT-Q6H PRN 09/05/24 09/06/24 History Inhaler] Aspirin EC [Ecotrin Low Dose] 81 mg PO DAILY 09/05/24 09/06/24 History Folic Acid 1 mg PO DAILY 09/05/24 09/06/24 History Isosorbide Dinitrate 30 mg PO DAILY 09/05/24 09/06/24 History Metoprolol Succinate (ER) [Toprol 50 mg PO DAILY 09/05/24 09/06/24 History Xl] Omeprazole [PriLOSEC] 20 mg PO DAILY 09/05/24 09/06/24 History Tamsulosin [Flomax] 0.4 mg PO DAILY 09/05/24 09/06/24 History allopurinoL [Zyloprim] 100 mg PO DAILY 09/05/24 09/06/24 History rOPINIRole HCL [Requip] 0.25 mg PO HS 09/05/24 09/06/24 History Furosemide [Lasix] 40 mg PO DAILY PRN 09/06/24 09/06/24 History Potassium Chloride ER [K-Dur 10] 10 meq PO DAILY PRN 09/06/24 09/06/24 History Allergies Allergy/AdvReac Type Severity Reaction Status Date / Time latex Allergy Swelling Verified 09/06/24 12:33 atorvastatin [From Lipitor] AdvReac JOINT PAIN Verified 09/06/24 12:33 Physical Exam Vitals: Vital Signs Temp Pulse Resp BP Pulse Ox 09/07/24 10:33 76 20 87/50 94 L 09/07/24 10:00 74 18 91/69 94 L 09/07/24 08:38 78 18 11/09/24 08:31 79 18 09/07/24 08:25 116/92 09/07/24 08:00 69 22 102/56 98 09/07/24 06:00 97.2 F L 67 15 98/50 97 09/07/24 05:16 73 18 90/51 96 09/07/24 01:35 69 18 117/56 94 L 09/06/24 22:08 76 18 108/66 96 09/06/24 18:36 80 09/06/24 18:25 79 97 09/06/24 18:00 78 20 106/64 95 09/06/24 17:00 78 20 110/60 96 09/06/24 16:23 79 20 114/61 96 Intake and Output 09/06/24 09/07/24 09/07/24 22:59 06:59 14:59 Intake Total 750 Output Total 1500 1000 5100 Balance -1500 -250 -5100 Intake: Oral 750 Output: Chest Tube Drainage 1600 Pleural Catheter 1600 Urine 1500 1000 3500 General Appearance the patient is calm and comfortable, no acute distress. Currently on room air oxygen Head exam was generally normal. There was no scleral icterus or corneal arcus. Mucous membranes were moist. Neck was supple and without jugular venous distension, thyromegaly, or carotid bruits. Carotids were easily palpable bilaterally. There was no adenopathy. Lung sounds are diminished and the patient has diminished breath sound right lung base along with dullness to percussion. Thoracotomy scar over the left lateral chest area is clean. The patient also has an anterior thoracotomy scar. Cardiac exam revealed the PMI to be normally situated and sized. The rhythm was regular and no extrasystoles were noted during several minutes of auscultation. The first and second heart sounds were normal and physiologic splitting of the second heart sound was noted. There were no murmurs, rubs, clicks, or gallops. Abdominal exam revealed normal bowel sounds. The abdomen was soft, non-tender, and without masses, organomegaly, or appreciable enlargement of the abdominal aorta. Examination of the extremities revealed easily palpable radial, femoral and pedal pulses. There was no cyanosis, clubbing or edema. Examination of the skin revealed no evidence of significant rashes, suspicious appearing nevi or other concerning lesions. Neurologically, the patient is awake and alert and the patient does not have any focal neurological deficit. Cranial nerves are essentially intact. Results - Laboratory Findings CBC and BMP: 09/07/24 06:10 09/07/24 06:07 PT/INR, D-dimer PT 10.7 sec (10.0-12.5) 09/06/24 09:05 INR 1.0 (<1.2) 09/06/24 09:05 Abnormal lab findings: Abnormal Labs 09/06/24 09/06/24 09/06/24 09:05 09:05 09:05 Hgb 10.8 L Hct 36.1 L MCH 24.5 L MCHC 29.9 L RDW 16.4 H Plt Count 123 L Lymphocytes # 0.9 L APTT 20.5 L Potassium Carbon Dioxide Glucose 129 H Plasma Lactic Acid Tomy Alkaline Phosphatase 127 H Troponin I 09/06/24 09/06/24 09/06/24 09:05 09:05 16:36 Hgb Hct MCH MCHC RDW Plt Count Lymphocytes # APTT Potassium Carbon Dioxide Glucose Plasma Lactic Acid Tomy 2.7 H* Alkaline Phosphatase Troponin I 0.077 H* 0.097 H* 09/06/24 09/07/24 09/07/24 20:06 06:07 06:10 Hgb 10.6 L Hct 34.9 L MCH 24.6 L MCHC 30.4 L RDW 16.2 H Plt Count Lymphocytes # APTT Potassium 3.4 L Carbon Dioxide 31 H Glucose 101 H Plasma Lactic Acid Tomy Alkaline Phosphatase Troponin I 0.084 H* - Diagnostic Findings Chest x-ray: image reviewed Assessment and Plan Plan: Recurrent large right-sided pleural effusion. Status post thoracentesis with 1.8 L of fluid removed on 07/27/2024 and on 05/17/2024 with evacuation of 1.7 L of pleural fluid and another thoracentesis on 08/18/2024 with removal of 1.8 L of pleural fluid. Acute on top of chronic shortness of breath secondary to above. Acute hypoxic respiratory failure, currently on 4 L of oxygen by nasal cannula Triple-vessel coronary artery disease, unstable angina with history of coronary artery disease/previous myocardial infarction/multiple stents/thrombectomy on Eliquis for anticoagulation/CABG 20 years ago, status post two-vessel redo off- pump CABG Ischemic cardiomyopathy/chronic systolic heart failure with reduced ejection fraction, EF 25-30%, repeat limited echo done yesterday demonstrates EF 20-25%, History of hypertension Hyperlipidemia, treated with Zetia, patient has muscle pain with statins, cholesterol 121, LDL 52, triglycerides 180 Left internal carotid artery stenosis, 50-79% Chronic anemia Chronic ongoing tobacco use Severe COPD , FEV1 43% of predicted Obstructive sleep apnea Chronic back pain with history of back surgery Plan Thoracentesis to be done again. Will consider Pleurx catheter insertion if pleural effusion remains recurrent Continue IV Lasix to be switched to Bumex Continue Aldactone Consider switching this patient to Entresto Anticoagulation is held pending thoracentesis Will follow
[2024-09-07] MEDS: SPIRONOLACTONE 25 MG TAB PO SCH (17:33)
--- NOTE | 2024-09-07 20:07 | CA ---
Transthoracic Echo Report Name: Israel Simmons Age: 69 Gender: M : 1955 Exam Date: 09/07/2024 07:24 Exam Location: [place] [facility] Ht (in): 69 Wt (lb): 260 Ordering Physician: Ines Vargas MD Attending/Referring Phys: Autotransfusionist Emilie Stuart RDCS Procedure CPT: Indications: chf Cardiac Hx: Limited evaluation of LVEF and valvular disease. Technical Quality: Technically difficult study Contrast 1: Definity Total Dose (mL): 2 Contrast 2: Total Dose (mL): MEASUREMENTS (Male / Female) Normal Values 2D ECHO LV Diastolic Diameter PLAX 5.9 cm 4.2 - 5.9 / 3.9 - 5.3 cm LV Systolic Diameter PLAX 4.6 cm IVS Diastolic Thickness 0.9 cm 0.6 - 1.0 / 0.6 - 0.9 cm LVPW Diastolic Thickness 1.0 cm 0.6 - 1.0 / 0.6 - 0.9 cm LV Relative Wall Thickness 0.3 LVOT Diameter 2.3 cm Ascending Aorta Diameter 3.5 cm DOPPLER AV Peak Velocity 104.7 cm/s AV Peak Gradient 4.4 mmHg AV Mean Velocity 78.3 cm/s AV Mean Gradient 2.7 mmHg AV Velocity Time Integral 23.6 cm LVOT Peak Velocity 87.3 cm/s LVOT Peak Gradient 3.0 mmHg LVOT Velocity Time Integral 17.3 cm LVOT Stroke Volume 70.6 cm??? LVOT Stroke Volume Index 30.6 ml/m??? LVOT Cardiac Index 1991.5 cm???/min???m??? AV Area Cont Eq vti 3.0 cm??? AV Area Cont Eq pk 3.4 cm??? Right Atrial Pressure 5.0 mmHg PV Peak Velocity 65.0 cm/s PV Peak Gradient 1.7 mmHg FINDINGS Left Ventricle Left ventricular ejection fraction is estimated at 20-25 %. Mildly increased left ventricular diastolic diameter. Moderately increased left ventricular diastolic volume.Severely increased left ventricular systolic volume. Severely decreased left ventricular ejection fraction with regional variability. Right Ventricle Right ventricular dilatation with mildly reduced function. Unable to estimate the right ventricular systolic pressure. Right Atrium Right atrial dilatation. Left Atrium Left atrial dilatation. Mitral Valve Mitral valve thickened. No evidence for mitral valve prolapse. Moderate to severe mitral regurgitation. Aortic Valve Trileaflet aortic valve. Aortic valve sclerosis. No aortic stenosis. Mild aortic regurgitation. Tricuspid Valve Structurally normal tricuspid valve. No tricuspid stenosis. Trace tricuspid regurgitation. Pulmonic Valve Structurally normal pulmonic valve. No pulmonic stenosis. No pulmonic regurgitation. Pericardium No pericardial effusion. Aorta Normal size aortic root and proximal ascending aorta. CONCLUSIONS LVEF 20 to 25% Apical and anteroapical, distal anteroseptal hypokinesia. No evidence of LV thrombus on contrast imaging RV is dilated with reduced systolic function Moderate to severe mitral regurgitation Mild biatrial dilatation Previewed by: Dr Jose J Pérez (Electronically Signed) Final Date: 07 September 2024 20:06
--- NOTE | 2024-09-08 02:34 | P.PN ---
Progress Note - Text Progress Note Date: 09/08/24 Spoke with the patient who confirmed what the nurse had told me that he would like to be a no code. Discussed what this meant with the patient and he assured me he understood what being no code meant.
[2024-09-08] MEDS: oxyCODONE-APAP 10-325MG 1 EACH TAB PO PRN (08:35)
[2024-09-08 11:15] LABS: Anisocytosis Slight; HCT 41.9 % (39.0-53.0); HGB 12.4 gm/dL (13.0-17.5); Hypochromasia Marked; MCH 23.7 pg (25.0-35.0); MCHC 29.5 g/dL (31.0-37.0); MCV 80.4 fL (80.0-100.0); Mean Platelet Volume 8.5; Platelet Count 211 k/uL (150-450); RBC 5.21 m/uL (4.30-5.90); RDW 16.1 % (11.5-15.5); WBC 6.2 k/uL (3.8-10.6)
[2024-09-08 11:23] LABS: African American GFR (CKD) 84 (>60 ml/min/1.73 sqM); Anion Gap 9 mmol/L; Blood Urea Nitrogen 14 mg/dL (9-20); Calcium 9.3 mg/dL (8.4-10.2); Carbon Dioxide 33 mmol/L (22-30); Chloride 95 mmol/L (98-107); Glucose 127 mg/dL (74-99); Non-African American GFR(CKD) 73 (>60 ml/min/1.73 sqM); Sodium 137 mmol/L (137-145)
--- NOTE | 2024-09-08 12:10 | P.PN ---
Subjective Progress Note Date: 09/08/24 69 year old M with PMH of CAD with CABG, CHF EF between 25 to 30%, COPD, HTN, HLD, sleep apnea, AFib presents to the ED for chest pain. Chest pain ongoing since CABG in April. Left sided, radiating to the back, sharp and stabbing in nature, 10/10 severity. Pain worsened with deep inspiration. Over the past few days he also reports worsening SOB with exertion. He denies any headache, LE edema, N/V, fever or chills, palpitations, changes in urination or bowel habits. In the ED he underwent extensive evaluation. BP 114/70, HR 86, T 98.3, RR 16, 91% on RA. CBC, Coag panel, CMP significant for Hg 10.8, Hct 36.1, Plt 123, APTT 20.5, glu 129, alk phos 127. Lactic acid 2.7. Trop 0.077. BNP 4910. EKG sinus rhythm with Q waves II/aVF, I/aVL, V3-6. CT thorax done yesterday showed no aortic dissection, bilateral pleural effusions, cirrhotic liver, colonic wall thickening similar to prior, enlarged pretracheal lymph nodes. Patient is admitted for further workup and management. 09/07 Patient was seen and examined. Continues to report pleuritic and positional chest pain. He has had this pain since his CABG. Continued SOB. 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 No lightheadedness or syncope. No head trauma. Troponin 0.097, 0.084. Lactic acid 1.8. CBC and BMP significant for Hg 10.6, Hct 34.9, K 3.4, bicarb 31, glu 101. Mag 1.7. Chest US marked for possible thoracentesis. 09/08 Patient was seen and examined. Breathing better. Still with pleuritic chest pain but better. Underwent thoracentesis yesterday with Dr. Wilson, 1.7L removed. Cardiology recommending continued Lasix. Echo shows EF 20-25% mild-mod MR. CBC and BMP significant Hg 12.4, Cl 95, bicarb 33, glu 127. Mag 2. General: non toxic, no distress, appears at stated age, obese Derm: no unusual rashes/lesions, warm Head: atraumatic, normocephalic, symmetric Eyes: EOMI, no lid lag, anicteric sclera ENT: Nose and ears atraumatic Neck: No cervical lymphadenopathy, trachea midline, supple Mouth: no lip lesion, mucus membranes moist Cardiovascular: S1S2 reg, no murmur, sternal scar Lungs: Decreased BS bilateral, no rhonchi, no rales, no accessory muscle use Ext: no gross muscle atrophy, no contractures, Neuro: no gross focal neuro deficits Psych: Alert, oriented, appropriate affect Based on my assessment of this patient, this patient meets a high complexity level of care. Acute systolic CHF exacerbation: Continue Lasix 40 mg IV BID. Strict intake and outtake. Daily weights. K > 4 and Mg > 2. Echo as above. Telemetry monitoring. Cardiology consult. Troponin elevation: Chest pain atypical. Pleuritic. Trop flat. Echo as above. ASA 81 mg PO QD. Plavix 75 mg PO QD. Bilateral pleural effusions: Chest US completed. Pulmonary consult. Status post thoracentesis with Dr. Wilson on 09/07, 1.7L removed. Lasix as above. Restart Eliquis 2.5 mg PO BID tonight. Fall: Fall precautions. PT and OT consult. COPD: Not in acute exacerbation. DuoNeb Q2H PRN SOB/wheezing. HTN: Borderline hypotensive now. Hold Imdur, Lisinopril, Metoprolol. HLD: Lipitor as above. Zetia 10 mg PO QD. Resolved: HypoK, Lactic acidosis CODE STATUS: NO CODE. DVT Prophylaxis: Heparin SQ GI Prophylaxis: Protonix PO Designated medical POA if patient is not able to make medical decisions for themselves: I have reviewed the following customer care voice consultant notes: Pulm, Cardio. I have reviewed the results of the following tests: Echo. CBC, BMP, Mag. I have ordered the following tests: BMP, Mag in the AM. I have discussed the care of this patient with the following independent historian: I have independently interpreted the following test below: I have discussed the management of this patient with the following physician: Objective - Vital Signs Vital signs: Vital Signs Temp 98.2 F 09/07/24 23:36 Pulse 81 09/08/24 08:00 Resp 18 09/08/24 08:00 BP 105/59 09/08/24 08:00 Pulse Ox 91 L 09/08/24 08:00 FiO2 Intake & Output 09/07/24 09/08/24 09/08/24 18:59 06:59 18:59 Intake Total 240 Output Total 5100 600 Balance -5100 -600 240 Weight 88 kg Intake: Oral 240 Output: Chest Tube Drainage 1600 Pleural Catheter 1600 Urine 3500 600 Other: Voiding Method Toilet - Labs CBC & Chem 7: 09/08/24 10:45 09/08/24 10:45
--- NOTE | 2024-09-08 12:23 | P.PN ---
Subjective Progress Note Date: 09/08/24 09/07/2024, the patient is being seen for a follow-up. Underwent a thoracentesis of the right lung today and a total of 1.7 L of fluid was aspirated. No complications. No pneumothorax. Follow-up chest x-ray shows improvement in volume status in the right lung. There is some residual right-sided pleural effusion. Remains on Lasix 40 mg IV every 12 hours. Remains on Aldactone. Rest of medications remain unchanged. The patient is currently on oxygen at 4 L/min nasal cannula. The white cell count is at 4.6 with a hemoglobin 10.6 and a platelet count of 165. BUN 17 with a creatinine of 1.05 and a sodium levels at 137. On a separate note, the patient was taken off the lisinopril and started on Entresto by cardiology. Started Aldactone. Lasix to be switched to Bumex also. Remains on Plavix. Remains on aspirin. On 09/08/2024, the patient is being seen for a follow-up. Patient is doing well. No specific complaints. Thoracentesis was done yesterday and a total of 1.8 L of fluid was aspirated from the right lung. He is currently on room air oxygen. Anticoagulation has been resumed. The white cell count is 6.2, it was 4.4, BUN is 14 with a creatinine of 1.06. The patient is currently on Lasix 40 mg IV every 12 hours and the patient is also on Aldactone 25 mg p.o. daily. Rem ains on aspirin. Remains on Plavix. Remains on Farxiga. Fluid balance has been -5.7 L over the past 24 hours. Objective - Vital Signs Vital signs: Vital Signs Temp 98.2 F 09/07/24 23:36 Pulse 80 09/08/24 09:50 Resp 18 09/08/24 08:00 BP 105/59 09/08/24 08:00 Pulse Ox 91 L 09/08/24 09:38 FiO2 Intake & Output 09/07/24 09/08/24 09/08/24 18:59 06:59 18:59 Intake Total 240 Output Total 5100 600 Balance -5100 -600 240 Weight 88 kg Intake: Oral 240 Output: Chest Tube Drainage 1600 Pleural Catheter 1600 Urine 3500 600 Other: Voiding Method Toilet Toilet - Exam General Appearance the patient is calm and comfortable, no acute distress. Currently on room air oxygen Head exam was generally normal. There was no scleral icterus or corneal arcus. Mucous membranes were moist. Neck was supple and without jugular venous distension, thyromegaly, or carotid bruits. Carotids were easily palpable bilaterally. There was no adenopathy. Lung sounds are diminished and the patient has diminished breath sound right lung base along with dullness to percussion. Thoracotomy scar over the left lateral chest area is clean. The patient also has an anterior thoracotomy scar. Cardiac exam revealed the PMI to be normally situated and sized. The rhythm was regular and no extrasystoles were noted during several minutes of auscultation. The first and second heart sounds were normal and physiologic splitting of the second heart sound was noted. There were no murmurs, rubs, clicks, or gallops. Abdominal exam revealed normal bowel sounds. The abdomen was soft, non-tender, and without masses, organomegaly, or appreciable enlargement of the abdominal aorta. Examination of the extremities revealed easily palpable radial, femoral and pedal pulses. There was no cyanosis, clubbing or edema. Examination of the skin revealed no evidence of significant rashes, suspicious appearing nevi or other concerning lesions. Neurologically, the patient is awake and alert and the patient does not have any focal neurological deficit. Cranial nerves are essentially intact. - Labs CBC & Chem 7: 09/08/24 10:45 09/08/24 10:45 Assessment and Plan Plan: Recurrent large right-sided pleural effusion. Status post thoracentesis with 1.8 L of fluid removed on 07/27/2024 and on 05/17/2024 with evacuation of 1.7 L of pleural fluid and another thoracentesis on 08/18/2024 with removal of 1.8 L of pleural fluid. Acute hypoxic respiratory failure, recovered and the patient is currently on room air oxygen Acute on top of chronic shortness of breath secondary to above, improved Triple-vessel coronary artery disease, unstable angina with history of coronary artery disease/previous myocardial infarction/multiple stents/thrombectomy on Eliquis for anticoagulation/CABG 20 years ago, status post two-vessel redo off- pump CABG Ischemic cardiomyopathy/chronic systolic heart failure with reduced ejection fraction, EF 25-30%, repeat limited echo done yesterday demonstrates EF 20-25%, History of hypertension Hyperlipidemia, treated with Zetia, patient has muscle pain with statins, cholesterol 121, LDL 52, triglycerides 180 Left internal carotid artery stenosis, 50-79% Chronic anemia Chronic ongoing tobacco use Severe COPD , FEV1 43% of predicted Obstructive sleep apnea Chronic back pain with history of back surgery Plan Thoracentesis to be done again. Will consider Pleurx catheter insertion if pleural effusion remains recurrent Continue IV Lasix to be switched to Bumex at the time of discharge in combination with Aldactone Continue Aldactone Consider switching this patient to Entresto, awaiting final recommendations from cardiology Resume anticoagulation with Eliquis Will follow, cleared for discharge from pulmonary standpoint.
--- NOTE | 2024-09-08 12:35 | P.PN ---
Subjective Progress Note Date: 09/08/24 HISTORY OF PRESENTING ILLNESS 69-year-old with past medical history of CAD status post CABG, subsequent redo CABG, severe ischemic cardiomyopathy, valvular heart disease, hypertension hyperlipidemia CKD. Pleural effusion, Known to Dr. Ni. Came to the hospital because of worsening increased shortness of breath. During this hospitalization he was noticed to have right- sided pleural effusion which was large in size. For this he got therapeutic thoracentesis done. He had another therapeutic thoracentesis done few months ago. Admission ECG shows sinus rhythm with T wave inversions in lateral leads and Q waves inferior which is unchanged from prior exam. Progress note September 08, 2024 Patient denies any new cardiovascular symptoms. Shortness of breath is improved. Renal function is stayed stable and he is tolerating the addition of guideline directed medical therapy. PHYSICAL EXAMINATION Vital signs reviewed. Head: Normocephalic. Eyes: Sclerae nonicteric. Neck: Brisk carotid upstroke, has elevated JVD Lungs: Diminished breath sounds in right lower lung base, mild crackles audible Heart: Irregularly irregular pulse, mild systolic murmur audible Abdomen: Soft nontender, positive bowel sounds. Extremities: No edema, intact distal pulses. Neuro: Alert, oritented, no focal deficits. Detailed neuro exam was not performed. ASSESSMENT Recurrent right-sided pleural effusion Acute hypoxic respiratory failure on chronic hypoxic respiratory failure Severe ischemic cardiomyopathy with a EF of 20 to 25% Valvular heart disease CAD status post CABG, redo CABG Last echo from April 2024 showed an EF of 20 to 25% PLAN There are some documentation previously that patient is atrial fibrillation. Currently is not on any anticoagulation. Instead he is on aspirin and Plavix. On this admission I was not able to find any evidence of atrial fibrillation. Would recommend getting outpatient clinic notes on Monday to see if there is any documentation of atrial fibrillation outpatient notes. So obtain and document his last ischemic evaluation. continue aspirin and plavix Continue IV Lasix 40 mg twice daily. Transition him to Bumex 1 mg p.o. daily when he goes home. Continue Aldactone 25 mg daily. Continue Farxiga 10 mg daily Continue metoprolol succinate 50 mg daily, Zetia 10 mg daily, Stop lisinopril. Continue Entresto 24/26 mg twice daily. Uptitrate these medications as tolerated by blood pressure and heart rate. He should be considered for a right pleurodesis procedure. Monitor blood pressure and heart rate. Objective - Vital Signs Vital signs: Vital Signs Temp 98.2 F 09/07/24 23:36 Pulse 78 09/08/24 12:29 Resp 18 09/08/24 08:00 BP 105/59 09/08/24 08:00 Pulse Ox 91 L 09/08/24 09:38 FiO2 Intake & Output 09/07/24 09/08/24 09/08/24 18:59 06:59 18:59 Intake Total 240 Output Total 5100 600 1000 Balance -5100 -600 -760 Weight 88 kg Intake: Oral 240 Output: Chest Tube Drainage 1600 Pleural Catheter 1600 Urine 3500 600 1000 Other: Voiding Method Toilet Toilet - Labs CBC & Chem 7: 09/08/24 10:45 09/08/24 10:45 Labs: Abnormal Lab Results - Last 24 Hours (Table) 09/08/24 09/08/24 Range/Units 10:45 10:45 Hgb 12.4 L (13.0-17.5) gm/dL MCH 23.7 L (25.0-35.0) pg MCHC 29.5 L (31.0-37.0) g/dL RDW 16.1 H (11.5-15.5) % Chloride 95 L (98-107) mmol/L Carbon Dioxide 33 H (22-30) mmol/L Glucose 127 H (74-99) mg/dL
[2024-09-09 06:45] LABS: Anisocytosis Slight; HCT 36.3 % (39.0-53.0); HGB 11.1 gm/dL (13.0-17.5); Hypochromasia Marked; MCH 24.5 pg (25.0-35.0); MCHC 30.7 g/dL (31.0-37.0); Mean Platelet Volume 9.7; Platelet Count 168 k/uL (150-450); RBC 4.54 m/uL (4.30-5.90); RDW 16.3 % (11.5-15.5); WBC 5.2 k/uL (3.8-10.6)
[2024-09-09 06:56] LABS: African American GFR (CKD) 71 (>60 ml/min/1.73 sqM); Anion Gap 6 mmol/L; Blood Urea Nitrogen 17 mg/dL (9-20); Carbon Dioxide 34 mmol/L (22-30); Chloride 98 mmol/L (98-107); Glucose 115 mg/dL (74-99); Magnesium 1.9 mg/dL (1.6-2.3); Non-African American GFR(CKD) 61 (>60 ml/min/1.73 sqM); Potassium 3.7 mmol/L (3.5-5.1); Sodium 138 mmol/L (137-145)
[2024-09-09 11:13] VITALS: BMI 29.2
[2024-09-09] MEDS: CYCLOBENZAPRINE 10 MG TAB PO PRN (11:33)
--- NOTE | 2024-09-09 12:59 | P.DS ---
Providers Date of admission: 09/06/24 12:27 Expected date of discharge: 09/09/24 Attending physician: Kumar Linares Consults: 09/06/24 12:26 Consult Physician Routine Consulting Provider: [facility] Consult Reason/Comments: Heart Failure Do you want consulting provider notified?: Yes 09/06/24 16:19 Consult Physician Routine Consulting Provider: Katarina Wilson Consult Reason/Comments: pleural effusion Do you want consulting provider notified?: Yes Primary care physician: Stated None Hospital Course: 69 year old M with PMH of CAD with CABG, CHF EF between 25 to 30%, COPD, HTN, HLD, sleep apnea, AFib presents to the ED for chest pain. Chest pain ongoing since CABG in April. Left sided, radiating to the back, sharp and stabbing in nature, 08/08 severity. Pain worsened with deep inspiration. Over the past few days he also reports worsening SOB with exertion. He denies any headache, LE edema, N/V, fever or chills, palpitations, changes in urination or bowel habits. In the ED he underwent extensive evaluation. BP 114/70, HR 86, T 98.3, RR 16, 91% on RA. CBC, Coag panel, CMP significant for Hg 10.8, Hct 36.1, Plt 123, APTT 20.5, glu 129, alk phos 127. Lactic acid 2.7. Trop 0.077. BNP 4910. EKG sinus rhythm with Q waves II/aVF, I/aVL, V3-6. CT thorax done yesterday showed no aortic dissection, bilateral pleural effusions, cirrhotic liver, colonic wall thickening similar to prior, enlarged pretracheal lymph nodes. Patient is admitted for further workup and management. 09/07 Patient was seen and examined. Continues to report pleuritic and positional chest pain. He has had this pain since his CABG. Continued SOB. 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 No lightheadedness or syncope. No head trauma. Troponin 0.097, 0.084. Lactic acid 1.8. CBC and BMP significant for Hg 10.6, Hct 34.9, K 3.4, bicarb 31, glu 101. Mag 1.7. Chest US marked for possible thoracentesis. 09/08 Patient was seen and examined. Breathing better. Still with pleuritic chest pain but better. Underwent thoracentesis yesterday with Dr. Wilson, 1.7L removed. Cardiology recommending continued Lasix. Echo shows EF 20-25% mild-mod MR. CBC and BMP significant Hg 12.4, Cl 95, bicarb 33, glu 127. Mag 2. 09/09 Patient was seen and examined. Feeling well. Wanting to go home. Lisinopril discontinued and started on Entresto yesterday by Cardiology. He did pass him home O2 eval. CBC and BMP significant Hg 11.1, Hct 36.3, bicarb 34, glu 115. Discharge Plans: Prescription for Bumex, Aldactone, Eliquis 5 mg, Entresto and Percocet PRN sent to pharmacy. Continue Plavix, Farxiga, Metoprolol and Zetia. Stop Lasix, Imdur, Lisinopril and Eliquis 2.5 mg. Diet: Low salt, 1.5L fluid restriction. Follow up with PCP within 1-2 days and Cardiology within 1 week of discharge. General: non toxic, no distress, appears at stated age, obese Derm: no unusual rashes/lesions, warm Head: atraumatic, normocephalic, symmetric Eyes: EOMI, no lid lag, anicteric sclera ENT: Nose and ears atraumatic Neck: No cervical lymphadenopathy, trachea midline, supple Mouth: no lip lesion, mucus membranes moist Cardiovascular: S1S2 reg, no murmur, sternal scar Lungs: Decreased BS bilateral, no rhonchi, no rales, no accessory muscle use Ext: no gross muscle atrophy, no contractures, Neuro: no gross focal neuro deficits Psych: Alert, oriented, appropriate affect Discharge Diagnosis: Acute systolic CHF exacerbation Troponin elevation Bilateral pleural effusions Fall COPD HTN HLD Resolved: HypoK, Lactic acidosis This complex discharge took 35 minutes to complete. Patient Condition at Discharge: Stable Plan - Discharge Summary New Discharge Prescriptions: New Bumetanide [BUMEX] 1 mg PO DAILY #30 tab Spironolactone [Aldactone] 25 mg PO DAILY #30 tab Apixaban [Eliquis] 5 mg PO BID #60 tab Sacubitril/Valsartan [Entresto 24 mg-26 mg Tablet] 1 each PO BID #60 tab oxyCODONE-APAP 10-325MG [Percocet 10-325 mg] 1 each PO Q4HR PRN #18 tab PRN Reason: Pain Continue Cyclobenzaprine [Flexeril] 10 mg PO BID Clopidogrel [Plavix] 75 mg PO DAILY Sodium Bicarbonate Tab 650 mg PO TID #100 tab Ferrous Sulfate [Iron (65 MG Elemental)] 325 mg PO DAILY Gabapentin [Neurontin] 100 mg PO TID Ergocalciferol [Vitamin D2 (1250 Mcg = 09525 Iu)] 1,250 mcg PO Q14D Ipratropium-Albuterol Nebulize [Duoneb 0.5 mg-3 mg/3 ml Soln] 3 ml INHALATION RT-Q2H PRN each PRN Reason: Shortness Of Breath Or Wheezing Dapagliflozin Propanediol [Farxiga] 10 mg PO DAILY tab Metoprolol Succinate (ER) [Toprol XL] 50 mg PO DAILY rOPINIRole HCL [Requip] 0.25 mg PO HS allopurinoL [Zyloprim] 100 mg PO DAILY Ezetimibe [Zetia] 10 mg PO DAILY #90 tab Fluticasone Nasal [place] [Flonase Nasal [place]] 1 spray EA NOSTRIL BID PRN PRN Reason: Allergy Symptoms ALPRAZolam [Xanax] 2 mg PO HS Tamsulosin [Flomax] 0.4 mg PO DAILY Omeprazole [PriLOSEC] 20 mg PO DAILY Folic Acid 1 mg PO DAILY Aspirin EC [Ecotrin Low Dose] 81 mg PO DAILY Albuterol Inhaler [Ventolin Hfa Inhaler] 1 - 2 puff INHALATION RT-Q6H PRN PRN Reason: Shortness Of Breath Potassium Chloride ER [K-Dur 10] 10 meq PO DAILY PRN PRN Reason: taking lasix Discontinued lisinopriL [Zestril] 2.5 mg PO DAILY@1200 tab Isosorbide Dinitrate 30 mg PO DAILY Apixaban [Eliquis] 2.5 mg PO BID #60 tab Nitroglycerin Sl Tabs [Nitrostat] 0.4 mg SUBLINGUAL Q5M PRN PRN Reason: Chest Pain Furosemide [Lasix] 40 mg PO DAILY PRN PRN Reason: Edema Discharge Medication List Ezetimibe [Zetia] 10 mg PO DAILY #90 tab 11/18/22 [Rx] Fluticasone Nasal [place] [Flonase Nasal [place]] 1 spray EA NOSTRIL BID PRN 01/27/23 [History] Clopidogrel [Plavix] 75 mg PO DAILY 08/21/23 [History] Cyclobenzaprine [Flexeril] 10 mg PO BID 08/21/23 [History] Sodium Bicarbonate Tab 650 mg PO TID #100 tab 01/25/24 [Rx] Ergocalciferol [Vitamin D2 (1250 Mcg = 72868 Iu)] 1,250 mcg PO Q14D 05/10/24 [History] Ferrous Sulfate [Iron (65 MG Elemental)] 325 mg PO DAILY 05/10/24 [History] Gabapentin [Neurontin] 100 mg PO TID 05/10/24 [History] Dapagliflozin Propanediol [Farxiga] 10 mg PO DAILY tab 05/24/24 [Rx] Ipratropium-Albuterol Nebulize [Duoneb 0.5 mg-3 mg/3 ml Soln] 3 ml INHALATION RT-Q2H PRN each 05/24/24 [Rx] ALPRAZolam [Xanax] 2 mg PO HS 07/27/24 [History] Albuterol Inhaler [Ventolin Hfa Inhaler] 1 - 2 puff INHALATION RT-Q6H PRN 09/05/24 [History] Aspirin EC [Ecotrin Low Dose] 81 mg PO DAILY 09/05/24 [History] Folic Acid 1 mg PO DAILY 09/05/24 [History] Metoprolol Succinate (ER) [Toprol XL] 50 mg PO DAILY 09/05/24 [History] Omeprazole [PriLOSEC] 20 mg PO DAILY 09/05/24 [History] Tamsulosin [Flomax] 0.4 mg PO DAILY 09/05/24 [History] allopurinoL [Zyloprim] 100 mg PO DAILY 09/05/24 [History] rOPINIRole HCL [Requip] 0.25 mg PO HS 09/05/24 [History] Potassium Chloride ER [K-Dur 10] 10 meq PO DAILY PRN 09/06/24 [History] Apixaban [Eliquis] 5 mg PO BID #60 tab 09/09/24 [Rx] Bumetanide [BUMEX] 1 mg PO DAILY #30 tab 09/09/24 [Rx] Sacubitril/Valsartan [Entresto 24 mg-26 mg Tablet] 1 each PO BID #60 tab 09/09/24 [Rx] Spironolactone [Aldactone] 25 mg PO DAILY #30 tab 09/09/24 [Rx] oxyCODONE-APAP 10-325MG [Percocet 10-325 mg] 1 each PO Q4HR PRN #18 tab 09/09/24 [Rx] Follow up Appointment(s)/Referral(s): Jose J Pérez MD [Medical Doctor] - 1 Week Godfrey Horne MD [REFERRING] - 1-2 Days Activity/Diet/Wound Care/Special Instructions: Diet: 1.5L fluid restriction, Low salt Follow up with PCP within 1-2 days of discharge. Follow up with Cardiology within 1 week of discharge. Discharge/Stand Alone Forms: Bernard BLAKE Pamphlet, Who Do I Call?, Area PCPs
[2024-09-09] MEDS: APIXABAN 5 MG TAB PO SCH (13:13)
[2024-09-09] MEDS: BUMETANIDE 1 MG TAB PO SCH (13:13)
[2024-09-09] MEDS: SACUBITRIL/VALSARTAN 24 MG-26 MG TABLET PO SCH (13:13)
--- NOTE | 2024-09-09 13:53 | P.PN ---
Subjective HISTORY OF PRESENT ILLNESS: This is a 69-year-old male with a past medical history significant for coronary artery disease status post CABG and subsequent redo CABG, severe cardiomyopathy, valvular heart disease, hypertension, hyperlipidemia, chronic kidney disease, pleural effusions, and atrial fibrillation. Patient follows in the office with Dr. Wiggins. Patient examined this morning at the bedside. Patient currently denies chest pain or pressure. He denies shortness of breath. Vital signs are stable. He remains on IV Lasix. BUN 17. Creatinine 1.22. PHYSICAL EXAM: VITAL SIGNS: Reviewed. GENERAL: Well-developed in no acute distress. NECK: Supple. No JVD or thyromegaly LUNGS: Respirations even and unlabored. Lungs essentially clear to auscultation bilaterally. HEART: Regular rate and rhythm. S1 and S2 heard. EXTREMITIES: Normal range of motion. No clubbing or cyanosis. Peripheral pulses intact. No lower extremity edema ASSESSMENT: Shortness of breath Acute on chronic heart failure with reduced EF Elevated troponins, flat, type II RI secondary to oxygen supply/demand mismatch Coronary artery disease with previous CABG 20 years ago and redo CABG x 04/2024 Ischemic cardiomyopathy, 20 to 25% Moderate right pleural effusion status postthoracentesis 09/07/2024 Small left pleural effusion History of pleural effusions with previous thoracentesis Chronic kidney disease Paroxysmal atrial fibrillation Hypertension Hyperlipidemia PLAN: Discontinue IV Lasix. Begin Bumex 1 mg daily Resume Eliquis. Increase dosage to 5 mg twice a day for appropriate thromboembolic protection. Continue aspirin 81 mg daily. Discontinue Plavix 75 mg daily Begin Entresto 24-26 mg twice a day Continue to monitor labs. Repeat BMP in a.m. Case discussed with patient and his family member at the bedside. Patient is not cleared from a cardiology standpoint for discharge today. Patient and his family member verbalized understanding. Anticipate discharge home tomorrow if patient remains stable. Further recommendations pending patient course Nurse practitioner note has been reviewed by physician. Signing provider agrees with the documented findings, assessment, and plan of care documented by [facility] as a scribe. Objective - Vital Signs Vital signs: Vital Signs Temp 98.1 F 09/09/24 11:25 Pulse 89 09/09/24 11:25 Resp 18 09/09/24 11:25 BP 116/67 09/09/24 11:25 Pulse Ox 95 09/09/24 11:25 FiO2 Intake & Output 09/08/24 09/09/24 09/09/24 18:59 06:59 18:59 Intake Total 480 240 180 Output Total 1950 300 Balance -1470 -60 180 Weight 89.9 kg 89.9 kg Intake: Oral 480 240 180 Output: Urine 1950 300 Other: Voiding Method Toilet Toilet Toilet - Labs CBC & Chem 7: 09/09/24 06:24 09/09/24 06:24 Labs: Abnormal Lab Results - Last 24 Hours (Table) 09/09/24 09/09/24 Range/Units 06:24 06:24 Hgb 11.1 L (13.0-17.5) gm/dL Hct 36.3 L (39.0-53.0) % MCH 24.5 L (25.0-35.0) pg MCHC 30.7 L (31.0-37.0) g/dL RDW 16.3 H (11.5-15.5) % Carbon Dioxide 34 H (22-30) mmol/L Glucose 115 H (74-99) mg/dL
--- NOTE | 2024-09-09 14:17 | P.PN ---
Subjective Progress Note Date: 09/09/24 09/07/2024, the patient is being seen for a follow-up. Underwent a thoracentesis of the right lung today and a total of 1.7 L of fluid was aspirated. No complications. No pneumothorax. Follow-up chest x-ray shows improvement in volume status in the right lung. There is some residual right-sided pleural effusion. Remains on Lasix 40 mg IV every 12 hours. Remains on Aldactone. Rest of medications remain unchanged. The patient is currently on oxygen at 4 L/min nasal cannula. The white cell count is at 4.6 with a hemoglobin 10.6 and a platelet count of 165. BUN 17 with a creatinine of 1.05 and a sodium levels at 137. On a separate note, the patient was taken off the lisinopril and started on Entresto by cardiology. Started Aldactone. Lasix to be switched to Bumex also. Remains on Plavix. Remains on aspirin. On 09/08/2024, the patient is being seen for a follow-up. Patient is doing well. No specific complaints. Thoracentesis was done yesterday and a total of 1.8 L of fluid was aspirated from the right lung. He is currently on room air oxygen. Anticoagulation has been resumed. The white cell count is 6.2, it was 4.4, BUN is 14 with a creatinine of 1.06. The patient is currently on Lasix 40 mg IV every 12 hours and the patient is also on Aldactone 25 mg p.o. daily. Rem ains on aspirin. Remains on Plavix. Remains on Farxiga. Fluid balance has been -5.7 L over the past 24 hours. The patient is seen today September 09, 2024 in follow-up on the selective care unit. He is sitting up at the bedside. Awake and alert in no acute distress. Denies any worsening shortness of breath, cough or congestion. Continue good O2 saturation in the 90s on room air. Has been afebrile. Hemodynamically stable. White count 5.2. Hemoglobin 11.1. Platelets 168. Sodium 138. Potassium 3.7. Bicarb 34. BUN 17. Creatinine 1.22. Glucose 115. He is continued on bronchodilators as needed. Anticoagulated with Eliquis. Currently in a -1.5 L balance. Remains on Bumex and Aldactone. Objective - Vital Signs Vital signs: Vital Signs Temp 98.1 F 09/09/24 11:25 Pulse 89 09/09/24 11:25 Resp 18 09/09/24 11:25 BP 116/67 09/09/24 11:25 Pulse Ox 95 09/09/24 11:25 FiO2 Intake & Output 09/08/24 09/09/24 09/09/24 18:59 06:59 18:59 Intake Total 480 240 180 Output Total 1950 300 Balance -1470 -60 180 Weight 89.9 kg 89.9 kg Intake: Oral 480 240 180 Output: Urine 1950 300 Other: Voiding Method Toilet Toilet Toilet - Exam GENERAL EXAM: Alert, active, comfortable in no apparent distress. HEAD: Normocephalic. EYES: Normal reaction of pupils, equal size. NOSE: Clear with pink turbinates. THROAT: No erythema or exudates. NECK: No masses, no JVD. CHEST: No chest wall deformity. Previous thoracotomy scar noted. LUNGS: Equal air entry with no crackles, wheeze, rhonchi or dullness. CVS: S1 and S2 normal with no audible murmur, regular rhythm. ABDOMEN: No hepatosplenomegaly, normal bowel sounds, no guarding or rigidity. SPINE: No scoliosis or deformity SKIN: No rashes CENTRAL NERVOUS SYSTEM: No focal deficits, tone is normal in all 4 extremities. EXTREMITIES: There is no peripheral edema. No clubbing, no cyanosis. Peripheral pulses are intact. - Labs CBC & Chem 7: 09/09/24 06:24 09/09/24 06:24 Labs: Abnormal Lab Results - Last 24 Hours (Table) 09/09/24 09/09/24 Range/Units 06:24 06:24 Hgb 11.1 L (13.0-17.5) gm/dL Hct 36.3 L (39.0-53.0) % MCH 24.5 L (25.0-35.0) pg MCHC 30.7 L (31.0-37.0) g/dL RDW 16.3 H (11.5-15.5) % Carbon Dioxide 34 H (22-30) mmol/L Glucose 115 H (74-99) mg/dL Assessment and Plan Assessment: Recurrent large right-sided pleural effusion. Status post thoracentesis with 1.8 L of fluid removed on 07/27/2024 and on 05/17/2024 with evacuation of 1.7 L of pleural fluid and on 08/18/2024 with removal of 1.8 L of pleural fluid. Most recent thoracentesis was done on this admission 09/07/2024 with 1.7 L removed Acute hypoxic respiratory failure, recovered and the patient is currently on room air oxygen Acute on top of chronic shortness of breath secondary to above, improved Triple-vessel coronary artery disease, unstable angina with history of coronary artery disease/previous myocardial infarction/multiple stents/thrombectomy on Eliquis for anticoagulation/CABG 20 years ago, status post two-vessel redo off- pump CABG Ischemic cardiomyopathy/chronic systolic heart failure with reduced ejection fra ction, EF 25-30%, repeat limited echo done yesterday demonstrates EF 20-25%, History of hypertension Hyperlipidemia, treated with Zetia, patient has muscle pain with statins, cholesterol 121, LDL 52, triglycerides 180 Left internal carotid artery stenosis, 50-79% Chronic anemia Chronic ongoing tobacco use Severe COPD , FEV1 43% of predicted Obstructive sleep apnea Chronic back pain with history of back surgery Plan: The patient was seen and evaluated Labs and medications reviewed Currently stable and on room air Continued on diuretics Clered for discharge from the pulmonary standpoint Follow-up in our office in 1 week May need to be considered for Pleurx catheter placement I have personally seen and examined the patient, performed the documentation and the assessment and plan as written. Number of minutes spent on the visit: 10 Dictation was produced using [employer] dictation software. Please excuse any grammatical, word or spelling errors.
[2024-09-10 03:09] VITALS: RESP 16
[2024-09-10 08:07] LABS: African American GFR (CKD) 53 (>60 ml/min/1.73 sqM); Anion Gap 7 mmol/L; Blood Urea Nitrogen 21 mg/dL (9-20); Calcium 8.9 mg/dL (8.4-10.2); Carbon Dioxide 33 mmol/L (22-30); Chloride 95 mmol/L (98-107); Glucose 105 mg/dL (74-99); Non-African American GFR(CKD) 46 (>60 ml/min/1.73 sqM); Potassium 3.9 mmol/L (3.5-5.1); Sodium 135 mmol/L (137-145)
--- NOTE | 2024-09-10 11:04 | P.PN ---
Subjective Progress Note Date: 09/10/24 09/07/2024, the patient is being seen for a follow-up. Underwent a thoracentesis of the right lung today and a total of 1.7 L of fluid was aspirated. No complications. No pneumothorax. Follow-up chest x-ray shows improvement in volume status in the right lung. There is some residual right-sided pleural effusion. Remains on Lasix 40 mg IV every 12 hours. Remains on Aldactone. Rest of medications remain unchanged. The patient is currently on oxygen at 4 L/min nasal cannula. The white cell count is at 4.6 with a hemoglobin 10.6 and a platelet count of 165. BUN 17 with a creatinine of 1.05 and a sodium levels at 137. On a separate note, the patient was taken off the lisinopril and started on Entresto by cardiology. Started Aldactone. Lasix to be switched to Bumex also. Remains on Plavix. Remains on aspirin. On 09/08/2024, the patient is being seen for a follow-up. Patient is doing well. No specific complaints. Thoracentesis was done yesterday and a total of 1.8 L of fluid was aspirated from the right lung. He is currently on room air oxygen. Anticoagulation has been resumed. The white cell count is 6.2, it was 4.4, BUN is 14 with a creatinine of 1.06. The patient is currently on Lasix 40 mg IV every 12 hours and the patient is also on Aldactone 25 mg p.o. daily. Rem ains on aspirin. Remains on Plavix. Remains on Farxiga. Fluid balance has been -5.7 L over the past 24 hours. The patient is seen today September 09, 2024 in follow-up on the selective care unit. He is sitting up at the bedside. Awake and alert in no acute distress. Denies any worsening shortness of breath, cough or congestion. Continue good O2 saturation in the 90s on room air. Has been afebrile. Hemodynamically stable. White count 5.2. Hemoglobin 11.1. Platelets 168. Sodium 138. Potassium 3.7. Bicarb 34. BUN 17. Creatinine 1.22. Glucose 115. He is continued on bronchodilators as needed. Anticoagulated with Eliquis. Currently in a -1.5 L balance. Remains on Bumex and Aldactone. The patient is seen today September 10, 2024 in follow-up on the selective care unit. He is awake and alert in no acute distress. Resting comfortably in bed. Denies any worsening shortness of breath, cough or congestion. Maintaining good O2 saturations in the 90s on room air. He has been afebrile. Hemodynamically stable. Sodium 135. Potassium 3.9. Bicarb 33. BUN 21. Creatinine 1.54. Glucose 105. He remains anticoagulated with Eliquis. Currently on oral diuretics. Objective - Vital Signs Vital signs: Vital Signs Temp 97.9 F 09/10/24 03:08 Pulse 86 09/10/24 10:48 Resp 16 09/10/24 08:40 BP 91/52 09/10/24 10:48 Pulse Ox 100 09/10/24 08:40 FiO2 Intake & Output 09/09/24 09/10/24 09/10/24 18:59 06:59 18:59 Intake Total 330 180 Balance 330 180 Weight 89.9 kg 90 kg Intake: Oral 330 180 Other: Voiding Method Toilet Toilet Toilet - Exam GENERAL EXAM: Alert, pleasant 69-year-old gentleman, resting in bed, on room air, comfortable in no apparent distress. HEAD: Normocephalic. EYES: Normal reaction of pupils, equal size. NOSE: Clear with pink turbinates. THROAT: No erythema or exudates. NECK: No masses, no JVD. CHEST: No chest wall deformity. Previous thoracotomy scar noted. LUNGS: Equal air entry with no crackles, wheeze, rhonchi or dullness. CVS: S1 and S2 normal with no audible murmur, regular rhythm. ABDOMEN: No hepatosplenomegaly, normal bowel sounds, no guarding or rigidity. SPINE: No scoliosis or deformity SKIN: No rashes CENTRAL NERVOUS SYSTEM: No focal deficits, tone is normal in all 4 extremities. EXTREMITIES: There is no peripheral edema. No clubbing, no cyanosis. Peripheral pulses are intact. - Labs CBC & Chem 7: 09/09/24 06:24 09/10/24 06:59 Labs: Abnormal Lab Results - Last 24 Hours (Table) 09/10/24 Range/Units 06:59 Sodium 135 L (137-145) mmol/L Chloride 95 L (98-107) mmol/L Carbon Dioxide 33 H (22-30) mmol/L BUN 21 H (9-20) mg/dL Creatinine 1.54 H (0.66-1.25) mg/dL Glucose 105 H (74-99) mg/dL Assessment and Plan Assessment: Recurrent large right-sided pleural effusion. Status post thoracentesis with 1.8 L of fluid removed on 07/27/2024 and on 05/17/2024 with evacuation of 1.7 L of pleural fluid and on 08/18/2024 with removal of 1.8 L of pleural fluid. Most recent thoracentesis was done on this admission 09/07/2024 with 1.7 L removed Acute hypoxic respiratory failure, recovered and the patient is currently on room air oxygen Acute on top of chronic shortness of breath secondary to above, improved Triple-vessel coronary artery disease, unstable angina with history of coronary artery disease/previous myocardial infarction/multiple stents/thrombectomy on Eliquis for anticoagulation/CABG 20 years ago, status post two-vessel redo off- pump CABG Ischemic cardiomyopathy/chronic systolic heart failure with reduced ejection fraction, EF 25-30%, repeat limited echo done yesterday demonstrates EF 20-25%, History of hypertension Hyperlipidemia, treated with Zetia, patient has muscle pain with statins, c holesterol 121, LDL 52, triglycerides 180 Left internal carotid artery stenosis, 50-79% Chronic anemia Chronic ongoing tobacco use Severe COPD , FEV1 43% of predicted Obstructive sleep apnea Chronic back pain with history of back surgery Plan: The patient was seen and evaluated Labs and medications reviewed Stable and on room air Continued on diuretics Cleared for discharge Follow-up in our office in 1 week May be considered for Pleurx catheter placement This patient was seen independently by the pulmonary nurse practitioner addressing pulmonary issues I have personally seen and examined the patient, performed the documentation and the assessment and plan as written. Number of minutes spent on the visit: 23 Dictation was produced using [employer] dictation software. Please excuse any grammatical, word or spelling errors.
--- NOTE | 2024-09-10 12:07 | P.PN ---
Subjective HISTORY OF PRESENT ILLNESS: This is a 69-year-old male with a past medical history significant for coronary artery disease status post CABG and subsequent redo CABG, severe cardiomyopathy, valvular heart disease, hypertension, hyperlipidemia, chronic kidney disease, pleural effusions, and atrial fibrillation. Patient follows in the office with Dr. Wiggins. Patient examined this morning at the bedside. Patient currently denies chest pain or pressure. He denies shortness of breath. Vital signs are stable. He remains on IV Lasix. BUN 17. Creatinine 1.22. 09/10/2024 Patient examined this morning at the bedside. Patient currently denies chest pain or pressure. He denies shortness of breath. Patient does report having dizziness this morning. Patient's blood pressures are low today with a systolic between 8090. Patient was started on Entresto yesterday and also transition to oral diuretics. Creatinine today worsened at 1.54. PHYSICAL EXAM: VITAL SIGNS: Reviewed. GENERAL: Well-developed in no acute distress. NECK: Supple. No JVD or thyromegaly LUNGS: Respirations even and unlabored. Lungs essentially clear to auscultation bilaterally. HEART: Regular rate and rhythm. S1 and S2 heard. EXTREMITIES: Normal range of motion. No clubbing or cyanosis. Peripheral pulses intact. No lower extremity edema ASSESSMENT: Shortness of breath Acute on chronic heart failure with reduced EF Elevated troponins, flat, type II AK secondary to oxygen supply/demand mismatch Coronary artery disease with previous CABG 20 years ago and redo CABG x 204/2024 Ischemic cardiomyopathy, 20 to 25% Moderate right pleural effusion status postthoracentesis 09/07/2024 Small left pleural effusion History of pleural effusions with previous thoracentesis Acute kidney injury Paroxysmal atrial fibrillation Hypertension Hyperlipidemia PLAN: Continue Eliquis and aspirin. Plavix discontinued. Hold Bumex for today Patient received 2 doses of Entresto yesterday. Hold Entresto today Add metoprolol succinate 25 mg daily Decrease Aldactone to 12.5 mg daily Continue to monitor labs. Repeat BMP in a.m. Continue to monitor blood pressure. Patient is not cleared for discharge from a cardiac standpoint Further recommendations pending patient course Nurse practitioner note has been reviewed by physician. Signing provider agrees with the documented findings, assessment, and plan of care documented by TRAIN SYSTEM OPERATOR as a scribe. Objective - Vital Signs Vital signs: Vital Signs Temp 97.9 F 09/10/24 03:08 Pulse 80 09/10/24 11:47 Resp 16 09/10/24 08:40 BP 91/52 09/10/24 10:48 Pulse Ox 100 09/10/24 08:40 FiO2 Intake & Output 09/09/24 09/10/24 09/10/24 18:59 06:59 18:59 Intake Total 330 180 Balance 330 180 Weight 89.9 kg 90 kg Intake: Oral 330 180 Other: Voiding Method Toilet Toilet Toilet - Labs CBC & Chem 7: 09/09/24 06:24 09/10/24 06:59 Labs: Abnormal Lab Results - Last 24 Hours (Table) 09/10/24 Range/Units 06:59 Sodium 135 L (137-145) mmol/L Chloride 95 L (98-107) mmol/L Carbon Dioxide 33 H (22-30) mmol/L BUN 21 H (9-20) mg/dL Creatinine 1.54 H (0.66-1.25) mg/dL Glucose 105 H (74-99) mg/dL
[2024-09-10] MEDS: METOPROLOL SUCCINATE (ER) 25 MG TAB.ER.24H PO SCH (12:09)
--- NOTE | 2024-09-10 12:45 | P.PN ---
Subjective Progress Note Date: 09/10/24 Hospital course 69 year old M with PMH of CAD with CABG, CHF EF between 25 to 30%, COPD, HTN, HLD, sleep apnea, AFib presents to the ED for chest pain. Chest pain ongoing since CABG in April. Left sided, radiating to the back, sharp and stabbing in nature, 10/10 severity. Pain worsened with deep inspiration. Over the past few days he also reports worsening SOB with exertion. He denies any headache, LE edema, N/V, fever or chills, palpitations, changes in urination or bowel habits. In the ED he underwent extensive evaluation. BP 114/70, HR 86, T 98.3, RR 16, 91% on RA. CBC, Coag panel, CMP significant for Hg 10.8, Hct 36.1, Plt 123, APTT 20.5, glu 129, alk phos 127. Lactic acid 2.7. Trop 0.077. BNP 4910. EKG sinus rhythm with Q waves II/aVF, I/aVL, V3-6. CT thorax done yesterday showed no aortic dissection, bilateral pleural effusions, cirrhotic liver, colonic wall thickening similar to prior, enlarged pretracheal lymph nodes. Patient is admitted for further workup and management. Patient seen this morning. He denies any acute complaints. No other acute issues overnight. Physical exam General examination - Alert and Oriented 3 in NAD Heart - + S1S2 no murmurs Lungs - Clear to auscultation Abdomen soft NT ND +ve BS Extremities - No edema DRY CLEANER HAND - Moving all 4 extremities spontaneously Psych - Calm and cooperative Assessment and plan Acute on chronic systolic heart failure Patient had a slight bump in his creatinine to 1.54. This is likely due to Entresto. Cardiology wants to hold patient's Bumex as patient's blood pressure is on the soft side and monitor for another day. Continue with Entresto 1 tab p.o. twice daily and spironolactone 12.5 mg p.o. daily. Patient also started on Farxiga 10 mg p.o. daily Patient currently appears euvolemic On 09 07 patient had thoracentesis by Dr. Jacinto and 1.7 L removed. Trend BMP Troponin elevation: Chest pain is atypical and troponins are flat. COPD Not in exacerbation Continue DuoNeb as needed Hypertension Patient's blood pressure is on the low side Bumex was discontinued Continue with metoprolol 25 mg p.o. daily and Entresto and spironolactone Hyperlipidemia Continue Lipitor and Zetia Atrial fibrillation Continue with Eliquis 5 mg p.o. 3 times daily and metoprolol BPH Continue tamsulosin 0.4 mg p.o. daily DVT prophylaxis: Eliquis Objective - Vital Signs Vital signs: Vital Signs Temp 97.9 F 09/10/24 03:08 Pulse 80 09/10/24 11:47 Resp 16 09/10/24 08:40 BP 91/52 09/10/24 10:48 Pulse Ox 100 09/10/24 08:40 FiO2 Intake & Output 09/09/24 09/10/24 09/10/24 18:59 06:59 18:59 Intake Total 330 180 Balance 330 180 Weight 89.9 kg 90 kg Intake: Oral 330 180 Other: Voiding Method Toilet Toilet Toilet # Voids 2 - Labs CBC & Chem 7: 09/09/24 06:24 09/10/24 06:59 Labs: Abnormal Lab Results - Last 24 Hours (Table) 09/10/24 Range/Units 06:59 Sodium 135 L (137-145) mmol/L Chloride 95 L (98-107) mmol/L Carbon Dioxide 33 H (22-30) mmol/L BUN 21 H (9-20) mg/dL Creatinine 1.54 H (0.66-1.25) mg/dL Glucose 105 H (74-99) mg/dL
[2024-09-11 08:38] LABS: African American GFR (CKD) 59 (>60 ml/min/1.73 sqM); Anion Gap 11 mmol/L; Blood Urea Nitrogen 28 mg/dL (9-20); Calcium 8.7 mg/dL (8.4-10.2); Carbon Dioxide 31 mmol/L (22-30); Chloride 93 mmol/L (98-107); Glucose 96 mg/dL (74-99); Non-African American GFR(CKD) 51 (>60 ml/min/1.73 sqM); Potassium 3.7 mmol/L (3.5-5.1); Sodium 135 mmol/L (137-145)
[2024-09-11] MEDS: SPIRONOLACTONE 25 MG TAB PO SCH (08:46)
[2024-09-11] MEDS: SACUBITRIL/VALSARTAN 24 MG-26 MG TABLET PO SCH (08:46)
[2024-09-11 08:52] VITALS: TEMP 97.8
[2024-09-11] MEDS ORDERED: BUMETANIDE 1 MG TAB PO SCH (09:00)
[2024-09-11] MEDS ORDERED: METOPROLOL SUCCINATE (ER) 25 MG TAB.ER.24H PO SCH (10:45)
[2024-09-11 11:16] VITALS: BP 91/63
[2024-09-11 11:42] VITALS: PULSE 72
--- NOTE | 2024-09-11 12:06 | P.DS ---
Providers Date of admission: 09/06/24 12:27 Attending physician: Kumar Linares Consults: 09/06/24 12:26 Consult Physician Routine Consulting Provider: [facility] Consult Reason/Comments: Heart Failure Do you want consulting provider notified?: Yes 09/06/24 16:19 Consult Physician Routine Consulting Provider: Katarina Wilson Consult Reason/Comments: pleural effusion Do you want consulting provider notified?: Yes Primary care physician: Stated None Hospital Course: Discharge Diagnosis: Acute on chronic systolic heart failure Troponin elevation likely due to heart failure COPD Hypertension Hyperlipidemia Atrial fibrillation BPH Hospital Course: 69 year old M with PMH of CAD with CABG, CHF EF between 25 to 30%, COPD, HTN, HL D, sleep apnea, AFib presents to the ED for chest pain. Chest pain ongoing since CABG in April. Left sided, radiating to the back, sharp and stabbing in nature, 10/10 severity. Pain worsened with deep inspiration. Over the past few days he also reports worsening SOB with exertion. He denies any headache, LE edema, N/V, fever or chills, palpitations, changes in urination or bowel habits. In the ED h e underwent extensive evaluation. BP 114/70, HR 86, T 98.3, RR 16, 91% on RA. CBC, Coag panel, CMP significant for Hg 10.8, Hct 36.1, Plt 123, APTT 20.5, glu 129, alk phos 127. Lactic acid 2.7. Trop 0.077. BNP 4910. EKG sinus rhythm with Q waves II/aVF, I/aVL, V3-6. CT thorax done yesterday showed no aortic dissection, bilateral pleural effusions, cirrhotic liver, colonic wall thickening similar to prior, enlarged pretracheal lymph nodes. Patient is admitted for further workup and management. Patient was started on IV diuretics. Patient was also seen by pulmonology and on 09/07/2024 patient had a thoracentesis with 1.7 L removal. Patient was also being followed by cardiology. When patient was euvolemic he was transition to oral diuretics. Patient's blood pressure was on the low side so multiple changes were made to his cardiac medications. Patient's isosorbide and lisinopril were discontinued. Patient metoprolol was decreased to 25 mg p.o. daily. Patient was started on spironolactone 12.5 mg p.o. daily and Entresto 1 tab p.o. twice daily. At the time of discharge patient had received his cardiac medication and he was seen walking the hallways without any dizziness. Patient was cleared for discharge by cardiology. He was instructed to follow-up with cardiology. Patient seen and examined at bedside.[] Vital signs reviewed and stable. General: [non toxic], [no distress], [appears at stated age] Derm: [warm], [dry] Head: [atraumatic], [normocephalic], [symmetric] Eyes: [EOMI], [no lid lag], [anicteric sclera] Mouth: [no lip lesion], [mucus membranes moist] Cardiovascular: [S1S2 reg], [no murmur], [positive posterior tibial pulse bilateral], Lungs: [CTA bilateral], [no rhonchi, no rales] , [no accessory muscle use] Abdominal: [soft], [ nontender to palpation], [no guarding], [no appreciable organomegaly] Ext: [no gross muscle atrophy], [no edema], [no contractures] Neuro: [ CN II-XI grossly intact], [no focal neuro deficits] Psych: [Alert], [oriented], [appropriate affect] A total of [33] minutes of time were spent preparing this complex discharge summary . Patient discharged on [09/11/2024] Patient Condition at Discharge: Stable Plan - Discharge Summary New Discharge Prescriptions: New Spironolactone [Aldactone] 12.5 mg PO DAILY 30 Days #15 tab Metoprolol Succinate (ER) [Toprol XL] 25 mg PO DAILY 30 Days #30 tab Apixaban [Eliquis] 5 mg PO BID #60 tab Sacubitril/Valsartan [Entresto 24 mg-26 mg Tablet] 1 each PO BID #60 tab oxyCODONE-APAP 10-325MG [Percocet 10-325 mg] 1 each PO Q4HR PRN #18 tab PRN Reason: Pain Continue Cyclobenzaprine [Flexeril] 10 mg PO BID Sodium Bicarbonate Tab 650 mg PO TID #100 tab Ferrous Sulfate [Iron (65 MG Elemental)] 325 mg PO DAILY Gabapentin [Neurontin] 100 mg PO TID Ergocalciferol [Vitamin D2 (1250 Mcg = 32042 Iu)] 1,250 mcg PO Q14D Ipratropium-Albuterol Nebulize [Duoneb 0.5 mg-3 mg/3 ml Soln] 3 ml INHALATION RT-Q2H PRN each PRN Reason: Shortness Of Breath Or Wheezing Dapagliflozin Propanediol [Farxiga] 10 mg PO DAILY tab rOPINIRole HCL [Requip] 0.25 mg PO HS allopurinoL [Zyloprim] 100 mg PO DAILY Ezetimibe [Zetia] 10 mg PO DAILY #90 tab Fluticasone Nasal [place] [Flonase Nasal [place]] 1 spray EA NOSTRIL BID PRN PRN Reason: Allergy Symptoms ALPRAZolam [Xanax] 2 mg PO HS Tamsulosin [Flomax] 0.4 mg PO DAILY Omeprazole [PriLOSEC] 20 mg PO DAILY Folic Acid 1 mg PO DAILY Aspirin EC [Ecotrin Low Dose] 81 mg PO DAILY Albuterol Inhaler [Ventolin Hfa Inhaler] 1 - 2 puff INHALATION RT-Q6H PRN PRN Reason: Shortness Of Breath Discontinued Clopidogrel [Plavix] 75 mg PO DAILY lisinopriL [Zestril] 2.5 mg PO DAILY@1200 tab Metoprolol Succinate (ER) [Toprol XL] 50 mg PO DAILY Isosorbide Dinitrate 30 mg PO DAILY Apixaban [Eliquis] 2.5 mg PO BID #60 tab Nitroglycerin Sl Tabs [Nitrostat] 0.4 mg SUBLINGUAL Q5M PRN PRN Reason: Chest Pain Potassium Chloride ER [K-Dur 10] 10 meq PO DAILY PRN PRN Reason: taking lasix Furosemide [Lasix] 40 mg PO DAILY PRN PRN Reason: Edema Discharge Medication List Ezetimibe [Zetia] 10 mg PO DAILY #90 tab 11/18/22 [Rx] Fluticasone Nasal [place] [Flonase Nasal [place]] 1 spray EA NOSTRIL BID PRN 01/27/23 [History] Cyclobenzaprine [Flexeril] 10 mg PO BID 08/21/23 [History] Sodium Bicarbonate Tab 650 mg PO TID #100 tab 01/25/24 [Rx] Ergocalciferol [Vitamin D2 (1250 Mcg = 66061 Iu)] 1,250 mcg PO Q14D 05/10/24 [History] Ferrous Sulfate [Iron (65 MG Elemental)] 325 mg PO DAILY 05/10/24 [History] Gabapentin [Neurontin] 100 mg PO TID 05/10/24 [History] Dapagliflozin Propanediol [Farxiga] 10 mg PO DAILY tab 05/24/24 [Rx] Ipratropium-Albuterol Nebulize [Duoneb 0.5 mg-3 mg/3 ml Soln] 3 ml INHALATION RT-Q2H PRN each 05/24/24 [Rx] ALPRAZolam [Xanax] 2 mg PO HS 07/27/24 [History] Albuterol Inhaler [Ventolin Hfa Inhaler] 1 - 2 puff INHALATION RT-Q6H PRN 09/05/24 [History] Aspirin EC [Ecotrin Low Dose] 81 mg PO DAILY 09/05/24 [History] Folic Acid 1 mg PO DAILY 09/05/24 [History] Omeprazole [PriLOSEC] 20 mg PO DAILY 09/05/24 [History] Tamsulosin [Flomax] 0.4 mg PO DAILY 09/05/24 [History] allopurinoL [Zyloprim] 100 mg PO DAILY 09/05/24 [History] rOPINIRole HCL [Requip] 0.25 mg PO HS 09/05/24 [History] Apixaban [Eliquis] 5 mg PO BID #60 tab 09/09/24 [Rx] Sacubitril/Valsartan [Entresto 24 mg-26 mg Tablet] 1 each PO BID #60 tab 09/09/24 [Rx] oxyCODONE-APAP 10-325MG [Percocet 10-325 mg] 1 each PO Q4HR PRN #18 tab 09/09/24 [Rx] Metoprolol Succinate (ER) [Toprol XL] 25 mg PO DAILY 30 Days #30 tab 09/11/24 [Rx] Spironolactone [Aldactone] 12.5 mg PO DAILY 30 Days #15 tab 09/11/24 [Rx] Follow up Appointment(s)/Referral(s): Jose J Pérez MD [Medical Doctor] - 1 Week Godfrey Horne MD [REFERRING] - 09/19/24 10:30 am Chaim Nugent DO [Doctor of Osteopathic Medicine] - 1 Week Patient Instructions/Handouts: Heart Failure (DC), Pulmonary Edema (DC), Pleural Effusion (DC) Activity/Diet/Wound Care/Special Instructions: Diet: 1.5L fluid restriction, Low salt Follow up with PCP within 1-2 days of discharge. Follow up with Cardiology within 1 week of discharge. Discharge/Stand Alone Forms: [facility] Pamphlet, Who Do I Call?, Area PCPs Discharge Disposition: HOME SELF-CARE
--- NOTE | 2024-09-11 12:47 | P.PN ---
Subjective HISTORY OF PRESENT ILLNESS: This is a 69-year-old male with a past medical history significant for coronary artery disease status post CABG and subsequent redo CABG, severe cardiomyopathy, valvular heart disease, hypertension, hyperlipidemia, chronic kidney disease, pleural effusions, and atrial fibrillation. Patient follows in the office with Dr. Wiggins. Patient examined this morning at the bedside. Patient currently denies chest pain or pressure. He denies shortness of breath. Vital signs are stable. He remains on IV Lasix. BUN 17. Creatinine 1.22. 09/10/2024 Patient examined this morning at the bedside. Patient currently denies chest pain or pressure. He denies shortness of breath. Patient does report having dizziness this morning. Patient's blood pressures are low today with a systolic between 8090. Patient was started on Entresto yesterday and also transition to oral diuretics. Creatinine today worsened at 1.54. 09/11/2024 Patient examined this morning at the bedside. Patient currently denies chest pain or pressure. He denies shortness of breath. Patient has been up ambulating with his family in the hallway. He denies any dizziness or lightheadedness. Patient's blood pressure remained stable with a systolic in the 90s. Creatinine slightly better today at 1.43. PHYSICAL EXAM: VITAL SIGNS: Reviewed. GENERAL: Well-developed in no acute distress. NECK: Supple. No JVD or thyromegaly LUNGS: Respirations even and unlabored. Lungs essentially clear to auscultation bilaterally. HEART: Regular rate and rhythm. S1 and S2 heard. EXTREMITIES: Normal range of motion. No clubbing or cyanosis. Peripheral pulses intact. No lower extremity edema ASSESSMENT: Shortness of breath Acute on chronic heart failure with reduced EF Elevated troponins, flat, type II VA secondary to oxygen supply/demand mismatch Coronary artery disease with previous CABG 20 years ago and redo CABG x 2, 04/2024 Ischemic cardiomyopathy, 20 to 25% Moderate right pleural effusion status postthoracentesis 09/07/2024 Small left pleural effusion History of pleural effusions with previous thoracentesis Acute kidney injury Paroxysmal atrial fibrillation Hypertension Hyperlipidemia PLAN: Continue Eliquis and aspirin. Plavix discontinued. Continue to hold Bumex upon discharge Continue additional cardiac medications Patient to repeat BMP outpatient in 3 days. Lab rx sent to . Patient may be discharged home today from a cardiac standpoint and follow-up postdischarge with Dr. Wiggins in 1 week Nurse practitioner note has been reviewed by physician. Signing provider agrees with the documented findings, assessment, and plan of care documented by SKI PATROL as a scribe. Objective - Vital Signs Vital signs: Vital Signs Temp 97.8 F 09/11/24 08:00 Pulse 72 09/11/24 11:41 Resp 16 09/11/24 11:15 BP 91/63 09/11/24 11:15 Pulse Ox 94 L 09/11/24 11:15 FiO2 Intake & Output 09/10/24 09/11/24 09/11/24 18:59 06:59 18:59 Intake Total 770 480 Balance 770 480 Weight 89.6 kg Intake: Oral 770 480 Other: Voiding Method Toilet Toilet Toilet # Voids 1 - Labs CBC & Chem 7: 09/09/24 06:24 09/11/24 07:09 Labs: Abnormal Lab Results - Last 24 Hours (Table) 09/11/24 Range/Units 07:09 Sodium 135 L (137-145) mmol/L Chloride 93 L (98-107) mmol/L Carbon Dioxide 31 H (22-30) mmol/L BUN 28 H (9-20) mg/dL Creatinine 1.43 H (0.66-1.25) mg/dL
--- NOTE | 2024-09-11 13:01 | P.PN ---
Subjective Progress Note Date: 09/11/24 Principal diagnosis: Acute congestive heart failure and right-sided pleural effusion 09/07/2024, the patient is being seen for a follow-up. Underwent a thoracentesis of the right lung today and a total of 1.7 L of fluid was aspirated. No complications. No pneumothorax. Follow-up chest x-ray shows improvement in volume status in the right lung. There is some residual right-sided pleural effusion. Remains on Lasix 40 mg IV every 12 hours. Remains on Aldactone. Rest of medications remain unchanged. The patient is currently on oxygen at 4 L/min nasal cannula. The white cell count is at 4.6 with a hemoglobin 10.6 and a platelet count of 165. BUN 17 with a creatinine of 1.05 and a sodium levels at 137. On a separate note, the patient was taken off the lisinopril and started on Entresto by cardiology. Started Aldactone. Lasix to be switched to Bumex also. Remains on Plavix. Remains on aspirin. On 09/08/2024, the patient is being seen for a follow-up. Patient is doing well. No specific complaints. Thoracentesis was done yesterday and a total of 1.8 L of fluid was aspirated from the right lung. He is currently on room air oxygen. Anticoagulation has been resumed. The white cell count is 6.2, it was 4.4, BUN is 14 with a creatinine of 1.06. The patient is currently on Lasix 40 mg IV every 12 hours and the patient is also on Aldactone 25 mg p.o. daily. Remains on aspirin. Remains on Plavix. Remains on Farxiga. Fluid balance has been -5.7 L over the past 24 hours. The patient is seen today September 09, 2024 in follow-up on the selective care unit. He is sitting up at the bedside. Awake and alert in no acute distress. Denies any worsening shortness of breath, cough or congestion. Continue good O2 saturation in the 90s on room air. Has been afebrile. Hemodynamically stable. White count 5.2. Hemoglobin 11.1. Platelets 168. Sodium 138. Potassium 3.7. Bicarb 34. BUN 17. Creatinine 1.22. Glucose 115. He is continued on bronchodilators as needed. Anticoagulated with Eliquis. Currently in a -1.5 L balance. Remains on Bumex and Aldactone. The patient is seen today September 10, 2024 in follow-up on the selective care unit. He is awake and alert in no acute distress. Resting comfortably in bed. Denies any worsening shortness of breath, cough or congestion. Maintaining good O2 saturations in the 90s on room air. He has been afebrile. Hemodynamically stable. Sodium 135. Potassium 3.9. Bicarb 33. BUN 21. Creatinine 1.54. Glucose 105. He remains anticoagulated with Eliquis. Currently on oral diuret ics. Seen today on 09/11/2024, patient is doing well relatively asymptomatic, being considered for discharge home today. I believe he was cleared by cardiology. His diuretics have been adjusted by cardiology and the plan is to send the patient home today and follow-up on outpatient basis. Objective - Vital Signs Vital signs: Vital Signs Temp 97.8 F 09/11/24 08:00 Pulse 72 09/11/24 11:41 Resp 16 09/11/24 11:15 BP 91/63 09/11/24 11:15 Pulse Ox 94 L 09/11/24 11:15 FiO2 Intake & Output 09/10/24 09/11/24 09/11/24 18:59 06:59 18:59 Intake Total 770 480 Balance 770 480 Weight 89.6 kg Intake: Oral 770 480 Other: Voiding Method Toilet Toilet Toilet # Voids 1 - Exam GENERAL EXAM: Alert, pleasant 69-year-old gentleman, resting in bed, on room air, comfortable in no apparent distress. HEAD: Normocephalic. EYES: Normal reaction of pupils, equal size. NOSE: Clear with pink turbinates. THROAT: No erythema or exudates. NECK: No masses, no JVD. CHEST: No chest wall deformity. Previous thoracotomy scar noted. LUNGS: Equal air entry with no crackles, wheeze, rhonchi or dullness. CVS: S1 and S2 normal with no audible murmur, regular rhythm. ABDOMEN: No hepatosplenomegaly, normal bowel sounds, no guarding or rigidity. SPINE: No scoliosis or deformity SKIN: No rashes CENTRAL NERVOUS SYSTEM: No focal deficits, tone is normal in all 4 extremities. EXTREMITIES: There is no peripheral edema. No clubbing, no cyanosis. Pe ripheral pulses are intact. - Labs CBC & Chem 7: 09/09/24 06:24 09/11/24 07:09 Labs: Abnormal Lab Results - Last 24 Hours (Table) 09/11/24 Range/Units 07:09 Sodium 135 L (137-145) mmol/L Chloride 93 L (98-107) mmol/L Carbon Dioxide 31 H (22-30) mmol/L BUN 28 H (9-20) mg/dL Creatinine 1.43 H (0.66-1.25) mg/dL Assessment and Plan Assessment: Impression: Recurrent large right-sided pleural effusion. Status post thoracentesis with 1.8 L of fluid removed on 07/27/2024 and on 05/17/2024 with evacuation of 1.7 L of pleural fluid and on 08/18/2024 with removal of 1.8 L of pleural fluid. Most recent thoracentesis was done on this admission 09/07/2024 with 1.7 L removed Acute hypoxic respiratory failure, recovered and the patient is currently on room air oxygen Acute on top of chronic shortness of breath secondary to above, improved Triple-vessel coronary artery disease, unstable angina with history of coronary artery disease/previous myocardial infarction/multiple stents/thrombectomy on Eliquis for anticoagulation/CABG 20 years ago, status post two-vessel redo off- pump CABG Ischemic cardiomyopathy/chronic systolic heart failure with reduced ejection fraction, EF 25-30%, repeat limited echo done yesterday demonstrates EF 20-25%, History of hypertension Hyperlipidemia, treated with Zetia, patient has muscle pain with statins, cholesterol 121, LDL 52, triglycerides 180 Left internal carotid artery stenosis, 50-79% Chronic anemia Chronic ongoing tobacco use Severe COPD , FEV1 43% of predicted Obstructive sleep apnea Chronic back pain with history of back surgery Recommendation: Pulmonary thorpe patient is doing well, will clear the patient for discharge Patient to follow-up in the office with Dr. Tejeda in 1 week postdischarge. Patient has been cleared already by Dr. Dela Cruz for discharge Time with Patient: Less than 30
== END 2024-09-11 13:01 | disposition home or self-care (01) | DRG 291 ==
LOC: EC 08:46 → 3SCARD 12:27 → OBSVTOIN 12:27 → 3SCARD 15:13
PROVIDERS: ADMIT Student in an Organized Health Care Education/Training Program; ATTEND Student in an Organized Health Care Education/Training Program
PROC: 0W993ZZ Drainage of Right Pleural Cavity, Percutaneous Approach (ICD-10-PCS; principal; 2024-09-07)
DX: I13.0 Hypertensive heart and chronic kidney disease with heart failure and stage 1 through stage 4 chronic kidney disease, or unspecified chronic kidney disease (principal); I50.23 Acute on chronic systolic (congestive) heart failure; J96.21 Acute and chronic respiratory failure with hypoxia; E87.20 Acidosis, unspecified; J91.8 Pleural effusion in other conditions classified elsewhere; N17.9 Acute kidney failure, unspecified; D63.1 Anemia in chronic kidney disease; K74.60 Unspecified cirrhosis of liver; Z79.01 Long term (current) use of anticoagulants; I25.110 Atherosclerotic heart disease of native coronary artery with unstable angina pectoris; I65.22 Occlusion and stenosis of left carotid artery; J44.9 Chronic obstructive pulmonary disease, unspecified; N18.9 Chronic kidney disease, unspecified; E87.6 Hypokalemia; E78.5 Hyperlipidemia, unspecified; F41.9 Anxiety disorder, unspecified; G47.33 Obstructive sleep apnea (adult) (pediatric); G89.29 Other chronic pain; I25.5 Ischemic cardiomyopathy; I08.0 Rheumatic disorders of both mitral and aortic valves; I48.0 Paroxysmal atrial fibrillation; K21.9 Gastro-esophageal reflux disease without esophagitis; N40.0 Benign prostatic hyperplasia without lower urinary tract symptoms; I25.2 Old myocardial infarction; Z72.0 Tobacco use; Z79.02 Long term (current) use of antithrombotics/antiplatelets; Z79.82 Long term (current) use of aspirin; Z79.84 Long term (current) use of oral hypoglycemic drugs; Z79.899 Other long term (current) drug therapy; Z95.1 Presence of aortocoronary bypass graft; Z95.5 Presence of coronary angioplasty implant and graft; Z82.49 Family history of ischemic heart disease and other diseases of the circulatory system; Z80.1 Family history of malignant neoplasm of trachea, bronchus and lung
CPT/HCPCS: 36415; 71045; 71046; 76604; 80048; 80053; 83605; 83735; 83880; 84484; 85025; 85027; 85610; 85730; 93005; 93308; 94640; 94760; 96365; 96366; 96372; 96375; 96376; 99285

== ENCOUNTER 2024-09-25 20:06 | Observation (INO) | payer MEDICARE, OTHER ==
--- NOTE | 2024-09-25 20:22 | ED ---
SOB HPI - General Chief Complaint: Shortness of Breath Stated Complaint: MICKIE Time Seen by Provider: 09/25/24 20:12 Source: patient, family, RN notes reviewed, old records reviewed Mode of arrival: wheelchair Limitations: no limitations - History of Present Illness Initial Comments: This is a 69-year-old male for severe shortness of breath cannot take a breath cannot catch his breath severe anxiety secondary to difficulty breathing patient is currently a poor historian secondary to respiratory status MD Complaint: shortness of breath -: days(s) Severity: severe Severity scale (1-10): 9 Consistency: intermittent Improves With: nothing Worsens With: nothing Known History Of: congestive heart failure Context: recent URI, anxiety, recent illness Associated Symptoms: denies other symptoms - Related Data Home Medications Medication Instructions Recorded Confirmed Fluticasone Nasal [place] [Flonase 1 spray EA NOSTRIL BID PRN 01/27/23 09/25/24 Nasal [place]] Cyclobenzaprine [Flexeril] 10 mg PO BID 08/21/23 09/25/24 Ergocalciferol [Vitamin D2 (1250 1,250 mcg PO Q14D 05/10/24 09/25/24 Mcg = 42750 Iu)] Ferrous Sulfate [Iron (65 MG 325 mg PO DAILY 05/10/24 09/25/24 Elemental)] Gabapentin [Neurontin] 100 mg PO TID 05/10/24 09/25/24 ALPRAZolam [Xanax] 2 mg PO HS 07/27/24 09/25/24 Albuterol Inhaler [Ventolin Hfa 2 puff INHALATION RT-Q6H PRN 09/05/24 09/25/24 Inhaler] Aspirin EC [Ecotrin Low Dose] 81 mg PO DAILY 09/05/24 09/25/24 Folic Acid 1 mg PO DAILY 09/05/24 09/25/24 Omeprazole [PriLOSEC] 20 mg PO DAILY 09/05/24 09/25/24 Tamsulosin [Flomax] 0.4 mg PO DAILY 09/05/24 09/25/24 allopurinoL [Zyloprim] 100 mg PO DAILY 09/05/24 09/25/24 rOPINIRole HCL [Requip] 0.25 mg PO HS 09/05/24 09/25/24 Sacubitril/Valsartan [Entresto 24 1 tab PO BID 09/25/24 09/25/24 mg-26 mg Tablet] oxyCODONE-APAP 10-325MG [Percocet 1 tab PO Q4HR PRN 09/25/24 09/25/24 10-325 mg] Previous Rx's Medication Instructions Recorded Ezetimibe [Zetia] 10 mg PO DAILY #90 tab 11/18/22 Sodium Bicarbonate Tab 650 mg PO TID #100 tab 01/25/24 Dapagliflozin Propanediol [Farxiga] 10 mg PO DAILY tab 05/24/24 Ipratropium-Albuterol Nebulize 3 ml INHALATION RT-Q2H PRN each 05/24/24 [Duoneb 0.5 mg-3 mg/3 ml Soln] Apixaban [Eliquis] 5 mg PO BID #60 tab 09/09/24 Metoprolol Succinate (ER) [Toprol 25 mg PO DAILY 30 Days #30 tab 09/11/24 XL] Spironolactone [Aldactone] 12.5 mg PO DAILY 30 Days #15 tab 09/11/24 Allergies Allergy/AdvReac Type Severity Reaction Status Date / Time latex Allergy Swelling Verified 09/25/24 21:13 atorvastatin [From Lipitor] AdvReac JOINT PAIN Verified 09/25/24 21:13 Review of Systems ROS Statement: Those systems with pertinent positive or pertinent negative responses have been documented in the HPI. ROS Other: All systems not noted in ROS Statement are negative. Past Medical History Past Medical History: Coronary Artery Disease (CAD), Chest Pain / Angina, Heart Failure, COPD, GERD/Reflux, Hyperlipidemia, Hypertension, Myocardial Infarction (DC), Osteoarthritis (OA), Sleep Apnea/CPAP/BIPAP Additional Past Medical History / Comment(s): Chronic back pain, left leg weakness. 4LNC. States unsure about having had a heart attack. Last Myocardial Infarction Date:: 11/11/22 History of Any Multi-Drug Resistant Organisms: None Reported Past Surgical History: Back Surgery, Cholecystectomy, Coronary Bypass/CABG, Heart Catheterization With Stent Additional Past Surgical History / Comment(s): Back surgery X2 with cage, left tennis elbow surgery, heart stents X7, colonoscopy. emergency CABG [facility] [place], thrombectomy. April Past Anesthesia/Blood Transfusion Reactions: No Reported Reaction Additional Past Anesthesia/Blood Transfusion Reaction / Comment(s): Pt received blood during CABG without reaction. Date of Last Stent Placement:: Oct 2022 Past Psychological History: Anxiety, Depression, PTSD Smoking Status: Former smoker, Vaper Past Alcohol Use History: None Reported Past Drug Use History: None Reported - Past Family History Father Family Medical History: Coronary Artery Disease (CAD), Deep Vein Thrombosis (DVT), GERD/Reflux, Hyperlipidemia, Myocardial Infarction (DC) Additional Family Medical History / Comment(s): Father of a DC in his 80's. Mother Family Medical History: Coronary Artery Disease (CAD), Myocardial Infarction (DC) Additional Family Medical History / Comment(s): Mother of a DC. Brother(s) Family Medical History: Myocardial Infarction (DC) Additional Family Medical History / Comment(s): . Sister(s) Family Medical History: Cancer, Diabetes Mellitus Additional Family Medical History / Comment(s): Lung cancer. Other sister had Diabetes. General Exam Limitations: no limitations General appearance: alert, anxious, in distress Head exam: Present: atraumatic, normocephalic, normal inspection Eye exam: Present: normal appearance, PERRL, EOMI. Absent: scleral icterus, conjunctival injection, periorbital swelling ENT exam: Present: normal exam, mucous membranes moist Neck exam: Present: normal inspection. Absent: tenderness, meningismus, lymphadenopathy Respiratory exam: Present: respiratory distress, wheezes, decreased breath sounds, prolonged expiratory. Absent: rales, rhonchi, stridor Cardiovascular Exam: Present: regular rate, normal rhythm, normal heart sounds. Absent: systolic murmur, diastolic murmur, rubs, gallop, clicks GI/Abdominal exam: Present: soft, normal bowel sounds. Absent: distended, tenderness, guarding, rebound, rigid Extremities exam: Present: normal inspection, full ROM, normal capillary refill. Absent: tenderness, pedal edema, joint swelling, calf tenderness Back exam: Present: normal inspection Neurological exam: Present: alert, oriented X3, CN II-XII intact Psychiatric exam: Present: normal affect, normal mood Skin exam: Present: warm, dry, intact, normal color. Absent: rash Course Vital Signs 09/25/24 09/25/24 09/25/24 20:08 20:50 20:56 Temperature 97.7 F Pulse Rate 98 76 78 Respiratory 22 Rate Blood Pressure 124/70 O2 Sat by Pulse 96 Oximetry 09/25/24 09/25/24 09/26/24 22:41 23:00 02:00 Temperature Pulse Rate 78 79 75 Respiratory 18 18 18 Rate Blood Pressure 119/71 112/48 98/46 O2 Sat by Pulse 96 93 L Oximetry 09/26/24 09/26/24 09/26/24 06:00 07:55 08:48 Temperature Pulse Rate 71 80 78 Respiratory 18 14 14 Rate Blood Pressure 104/72 111/71 101/63 O2 Sat by Pulse 93 L 94 L 94 L Oximetry 09/26/24 09/26/24 09/26/24 10:25 11:32 12:42 Temperature Pulse Rate 75 83 82 Respiratory 16 16 16 Rate Blood Pressure 99/42 115/67 103/50 O2 Sat by Pulse 94 L 95 96 Oximetry 09/26/24 09/26/24 09/26/24 14:30 15:41 18:28 Temperature Pulse Rate 78 77 70 Respiratory 14 14 16 Rate Blood Pressure 110/64 114/69 100/68 O2 Sat by Pulse 96 96 Oximetry - Reevaluation(s) Reevaluation #1: 09/25/24 20:21 Medical records reviewed Reevaluation #2: 09/25/24 21:55 Symptoms mildly improved Reevaluation #3: 09/25/24 21:55 Informed of results and questions answered Reevaluation #4: Was pt. sent in by a medical professional or institution (, PA, [employer]ESSIONAL, urgent care, hospital, or fci...) When possible be specific @ -no Did you speak to anyone other than the patient for history (EMS, parent, family, police, friend...)? What history was obtained from this source @ -no Did you review nursing and triage notes (agree or disagree)? Why? @ -agree Are old charts reviewed (outside hosp., previous admission, EMS record, old EKG, old radiological studies, urgent care reports/EKG's, fci records)? Report findings @ -yes Differential Diagnosis (chest pain, altered mental status, abdominal pain women, abdominal pain men, vaginal bleeding, weakness, fever, dyspnea, syncope, headache, dizziness, GI bleed, back pain, seizure, CVA, palpatations, mental health, musculoskeletal)? @ -prior EKG interpreted by me (3pts min.). @ -yes X-rays interpreted by me (1pt min.). @ -yes positive for pulmonary edema and effusion CT interpreted by me (1pt min.). @ -Yes positive for pleural effusions U/S interpreted by me (1pt. min.). @ -no What testing was considered but not performed or refused? (CT, X-rays, U/S, labs)? Why? @ -none What meds were considered but not given or refused? Why? @ -none Did you discuss the management of the patient with other professionals (professionals i.e. , PA, [employer], lab, RT, psych nurse, social science analyst, blood tester, teacher, financial aid officer, hospice case manager)? Give summary @ -no Was smoking cessation discussed for >3mins.? @ -no Was critical care preformed (if so, how long)? @ -yes31 Were there social determinants of health that impacted care today? How? (Homelessness, low income, unemployed, alcoholism, drug addiction, transportat ion, low edu. Level, literacy, decrease access to med. care, custodial, rehab)? @ -none Was there de-escalation of care discussed even if they declined (Discuss DNR or withdrawal of care, Hospice)? DNR status @ -no What co-morbidities impacted this encounter? (DM, HTN, Smoking, COPD, CAD, Cancer, CVA, ARF, Chemo, Hep., AIDS, mental health diagnosis, sleep apnea, morbid obesity)? @ -none Was patient admitted / discharged? Hospital course, mention meds given and route, prescriptions, significant lab abnormalities, going to OR and other pertinent info. @ - 69 male will be admitted for severe CHF exacerbation with shortness of breath, patient will admit patient is having significant shortness of breath especially with exertion. No chest pain Admitted Undiagnosed new problem with uncertain prognosis? @ -no Drug Therapy requiring intensive monitoring for toxicity (Heparin, Nitro, Insulin, Cardizem)? @ -no Were any procedures done? @ -no Diagnosis/symptom? @ -Bilateral pleural effusions CHF and COPD respiratory disease and respiratory failure Acute, or Chronic, or Acute on Chronic? @ -Acute Uncomplicated (without systemic symptoms) or Complicated (systemic symptoms)? @ -Complicated Side effects of treatment? @ -no Exacerbation, Progression, or Severe Exacerbation? @ -exacerbation Poses a threat to life or bodily function? How? (Chest pain, USA, DC, pneumonia, PE, COPD, DKA, ARF, appy, cholecystitis, CVA, Diverticulitis, Homicidal, Suicidal, threat to staff... and all critical care pts) @ -yes extremes of age and dyspnea Reevaluation #5: Differential Dyspnea: Coronary syndrome, arrhythmia, tamponade, asthma, COPD, pulmonary embolism, pneumonia, pneumothorax, pulmonary effusion, anaphylaxis, diabetic ketoacidosis, flailed chest, pulmonary contusion, diaphragmatic rupture, anemia, neuromuscular, this is not meant to be an all-inclusive list. - Consultations Consultation #1: PMH who agrees to admit this patient Medical Decision Making - Medical Decision Making 69 male will be admitted for severe CHF exacerbation with shortness of breath, patient will admit patient is having significant shortness of breath especially with exertion. No chest pain - Lab Data Result diagrams: 09/27/24 17:06 09/28/24 06:53 Lab Results 09/25/24 09/25/24 09/25/24 Range/Units 20:28 20:28 20:28 WBC 5.8 (3.8-10.6) k/uL RBC 4.79 (4.30-5.90) m/uL Hgb 12.0 L (13.0-17.5) gm/dL Hct 39.8 (39.0-53.0) % MCV 83.1 (80.0-100.0) fL MCH 25.1 (25.0-35.0) pg MCHC 30.2 L (31.0-37.0) g/dL RDW 19.4 H (11.5-15.5) % Plt Count 154 (150-450) k/uL MPV 8.7 Neutrophils % 73 % Lymphocytes % 18 % Monocytes % 6 % Eosinophils % 1 % Basophils % 0 % Neutrophils # 4.2 (1.3-7.7) k/uL Lymphocytes # 1.0 (1.0-4.8) k/uL Monocytes # 0.4 (0-1.0) k/uL Eosinophils # 0.1 (0-0.7) k/uL Basophils # 0.0 (0-0.2) k/uL Hypochromasia Marked Anisocytosis Slight PT 10.8 (10.0-12.5) sec INR 1.0 (<1.2) APTT 25.8 (22.0-30.0) sec D-Dimer (<0.60) mg/L FEU Sodium 138 (137-145) mmol/L Potassium 4.1 (3.5-5.1) mmol/L Chloride 111 H (98-107) mmol/L Carbon Dioxide 20 L (22-30) mmol/L Anion Gap 7 mmol/L BUN 12 (9-20) mg/dL Creatinine 0.84 (0.66-1.25) mg/dL Est GFR (CKD-EPI)AfAm >90 (>60 ml/min/1.73 sqM) Est GFR (CKD-EPI)NonAf >90 (>60 ml/min/1.73 sqM) Glucose 87 (74-99) mg/dL Plasma Lactic Acid Tomy (0.7-2.0) mmol/L Calcium 9.1 (8.4-10.2) mg/dL Magnesium 1.9 (1.6-2.3) mg/dL Total Bilirubin 1.0 (0.2-1.3) mg/dL AST 24 (17-59) U/L ALT 14 (4-49) U/L Alkaline Phosphatase 130 H (38-126) U/L Troponin I (0.000-0.034) ng/mL NT-Pro-B Natriuret Pep 5370 pg/mL Total Protein 7.8 (6.3-8.2) g/dL Albumin 4.2 (3.5-5.0) g/dL 09/25/24 09/25/24 09/25/24 Range/Units 20:28 20:28 20:28 WBC (3.8-10.6) k/uL RBC (4.30-5.90) m/uL Hgb (13.0-17.5) gm/dL Hct (39.0-53.0) % MCV (80.0-100.0) fL MCH (25.0-35.0) pg MCHC (31.0-37.0) g/dL RDW (11.5-15.5) % Plt Count (150-450) k/uL MPV Neutrophils % % Lymphocytes % % Monocytes % % Eosinophils % % Basophils % % Neutrophils # (1.3-7.7) k/uL Lymphocytes # (1.0-4.8) k/uL Monocytes # (0-1.0) k/uL Eosinophils # (0-0.7) k/uL Basophils # (0-0.2) k/uL Hypochromasia Anisocytosis PT (10.0-12.5) sec INR (<1.2) APTT (22.0-30.0) sec D-Dimer 1.51 H (<0.60) mg/L FEU Sodium (137-145) mmol/L Potassium (3.5-5.1) mmol/L Chloride (98-107) mmol/L Carbon Dioxide (22-30) mmol/L Anion Gap mmol/L BUN (9-20) mg/dL Creatinine (0.66-1.25) mg/dL Est GFR (CKD-EPI)AfAm (>60 ml/min/1.73 sqM) Est GFR (CKD-EPI)NonAf (>60 ml/min/1.73 sqM) Glucose (74-99) mg/dL Plasma Lactic Acid Tomy 1.5 (0.7-2.0) mmol/L Calcium (8.4-10.2) mg/dL Magnesium (1.6-2.3) mg/dL Total Bilirubin (0.2-1.3) mg/dL AST (17-59) U/L ALT (4-49) U/L Alkaline Phosphatase (38-126) U/L Troponin I 0.029 (0.000-0.034) ng/mL NT-Pro-B Natriuret Pep pg/mL Total Protein (6.3-8.2) g/dL Albumin (3.5-5.0) g/dL - EKG Data -: EKG Interpreted by Me (EKG is sinus 81 MI 138 QRS 115 QTc 468) - Radiology Data Radiology results: report reviewed (Chest x-ray is positive for CHF), image reviewed Critical Care Time Critical Care Time: Yes Total Critical Care Time: 31 Disposition Clinical Impression: Systolic congestive heart failure, CHF exacerbation, Chest pain, CHF (congestive heart failure), Acute pulmonary edema, Pleural effusion, bilateral Disposition: ADMITTED IP TO THIS [facility] Condition: Serious Is patient prescribed a controlled substance at d/c from ED?: No Time of Disposition: 22:00
[2024-09-25 20:38] LABS: Anisocytosis Slight; Basophils % (A) 0 %; Eosinophils # (A) 0.1 k/uL (0-0.7); Eosinophils % (A) 1 %; HCT 39.8 % (39.0-53.0); Hypochromasia Marked; Lymphocytes % (A) 18 %; MCH 25.1 pg (25.0-35.0); MCHC 30.2 g/dL (31.0-37.0); MCV 83.1 fL (80.0-100.0); Mean Platelet Volume 8.7; Monocytes # (A) 0.4 k/uL (0-1.0); Monocytes % (A) 6 %; Neutrophils # (A) 4.2 k/uL (1.3-7.7); Neutrophils % (A) 73 %; Platelet Count 154 k/uL (150-450); RBC 4.79 m/uL (4.30-5.90); RDW 19.4 % (11.5-15.5); WBC 5.8 k/uL (3.8-10.6)
[2024-09-25 20:48] LABS: Partial Thromboplastin Time 25.8 sec (22.0-30.0); Prothrombin Time 10.8 sec (10.0-12.5)
[2024-09-25] MEDS: IPRATROPIUM-ALBUTEROL 3 ML NEB INHALATION STA (20:48)
[2024-09-25 20:56] LABS: ALT 14 U/L (4-49); AST 24 U/L (17-59); African American GFR (CKD) >90 (>60 ml/min/1.73 sqM); Albumin 4.2 g/dL (3.5-5.0); Alkaline Phosphatase 130 U/L (38-126); Anion Gap 7 mmol/L; Blood Urea Nitrogen 12 mg/dL (9-20); Calcium 9.1 mg/dL (8.4-10.2); Carbon Dioxide 20 mmol/L (22-30); Chloride 111 mmol/L (98-107); Glucose 87 mg/dL (74-99); Magnesium 1.9 mg/dL (1.6-2.3); Non-African American GFR(CKD) >90 (>60 ml/min/1.73 sqM); Potassium 4.1 mmol/L (3.5-5.1); Sodium 138 mmol/L (137-145); Total Protein 7.8 g/dL (6.3-8.2)
[2024-09-25 21:03] LABS: NT-Pro-B-Type Natriuretic Pept 5370 pg/mL
--- NOTE | 2024-09-25 21:31 | XR ---
EXAMINATION TYPE: XR chest 1V portable DATE OF EXAM: 09/25/2024 9:25 PM COMPARISON: Chest radiographs from CLINICAL INDICATION: Male, 69 years old with history of sob; [facility] TECHNIQUE: XR chest 1V portable Frontal view of the chest. FINDINGS: Lungs/Pleura: Moderate right pleural effusion with associated atelectasis. There is no evidence of le ft pleural effusion, focal consolidation, or pneumothorax. Pulmonary vascularity: Pulmonary vascular congestion. Heart/mediastinum: Cardiomediastinal silhouette is enlarged. Musculoskeletal: Degenerative changes of the shoulder joints. Midline sternotomy wires are noted. IMPRESSION: Moderate right pleural effusion with cardiomegaly correlate for congestive heart failure [facility] Harvinder Oconnell, , 09/25/2024 9:29 PM
[2024-09-25] MEDS: FUROSEMIDE 10 MG/ML 4 ML VIAL IV STA (21:43)
[2024-09-25] MEDS: HYDROmorphone 1 MG/ML 1 ML SYRINGE IVP STA (22:37)
[2024-09-25] MEDS: FUROSEMIDE 10 MG/ML 4 ML VIAL IV SCH (22:41)
[2024-09-25] MEDS: NITROGLYCERIN OINT 1 INCH/GM PACKET TOPICAL SCH (23:48)
--- NOTE | 2024-09-26 00:08 | CT ---
EXAM: CT Angiography Chest With Intravenous Contrast CLINICAL HISTORY: ITS.REASON CT Reason: PE TECHNIQUE: Axial computed tomographic angiography images of the chest with intravenous contrast. This CT exam was performed using one or more of the following dose reduction techniques: automated exposure control, adjustment of the mA and/or kV according to patient size, and/or use of iterative reconstruction technique. MIP reconstructed images were created and reviewed. COMPARISON: No relevant prior studies available. FINDINGS: Pulmonary arteries: Unremarkable. No pulmonary embolism. Aorta: Atherosclerotic changes of the aorta. No thoracic aortic aneurysm. Lungs: Airspace consolidation at the lung bases, RIGHT greater than LEFT, correlate for aspiration pneumonia. Pleural space: Moderate RIGHT and small LEFT pleural effusions. No pneumothorax. Heart: Cardiomegaly. No significant pericardial effusion. No evidence of RV dysfunction. Bones/joints: Degenerative changes of the spine. No acute fracture. No dislocation. Soft tissues: Unremarkable. Lymph nodes: Unremarkable. No enlarged lymph nodes. Liver: Mild to early hepatic cirrhotic morphology. Gallbladder and bile ducts: Cholecystectomy. IMPRESSION: 1. No pulmonary embolism. 2. Airspace consolidation at the lung bases, RIGHT greater than LEFT, correlate for aspiration pneumonia. 3. Moderate RIGHT and small LEFT pleural effusions.
[2024-09-26] MEDS: HYDROmorphone 1 MG/ML 1 ML SYRINGE IVP PRN (02:12)
[2024-09-26] MEDS ORDERED: ERGOCALCIFEROL 1,250 MCG (50,000 IU) CAPSULE PO SCH (10:45)
--- NOTE | 2024-09-26 11:21 | P.CRDCN ---
History of Present Illness History of present illness: HISTORY OF PRESENT ILLNESS: This is a 69-year-old male with a past medical history significant for coronary artery disease, congestive heart failure, ischemic cardiomyopathy, paroxysmal a trial fibrillation, hypertension, and hyperlipidemia. Patient follows in the office with Dr. Wiggins. We have been asked to see the patient in consultation for congestive heart failure. Patient examined at the bedside in the emergency room. Patient was hospitalized earlier this month for acute exacerbation of CHF. Patient states he has been feeling short of breath for the past few days. He denied having any chest pain or pressure. He does report having some discomfort in both of his shoulders but thinks it is secondary to arthritis. He denies having any lower extremity edema. He states he has been compliant with all of his medications. Patient states he has not smoked cigarettes in about a month. DIAGNOSTICS: - EKG reveals sinus mechanism with diffuse T wave inversions - Chest xray moderate right pleural effusion with cardiomegaly. Correlate for CHF - Chest CTA: Negative for pulmonary embolism. Airspace consolidation at the lung bases right greater than left, correlate for aspiration pneumonia. Moderate right and small left pleural effusions - Laboratory data: WBC 5.8. Hemoglobin 12.0. Platelet count 154. D-dimer 1.51. Sodium 138. Potassium 4.1. BUN 12. Creatinine 0.84. Lactic acid 1.5. Troponin negative x 3. proBNP 5370. - Current home cardiac medications include Eliquis 5 mg twice a day, aspirin 81 mg daily, Farxiga 10 mg daily, Zetia 10 mg daily, metoprolol succinate 25 mg daily, Entresto 24-26 mg twice a day, Aldactone 12.5 mg daily - Most recent echocardiogram obtained in 09/06/2024 reveals EF 20 to 25%, apical and anterior apical distal anterior septal hypokinesis, moderate to severe MR, mild AR REVIEW OF SYSTEMS: At the time of my exam: CONSTITUTIONAL: Denies fever or chills. HEENT: Denies blurred vision, vision changes, or eye pain. Denies hemoptysis CARDIOVASCULAR: Denies chest pain. Denies orthopnea. Denies PND. Denies palpitations RESPIRATORY: Denies shortness of breath. GASTROINTESTINAL: Denies abdominal pain. Denies nausea or vomiting. HEMATOLOGIC: Denies bleeding disorders. GENITOURINARY: Denies any blood in urine. SKIN: Denies pruitis. Denies rash. PHYSICAL EXAM: VITAL SIGNS: Reviewed. GENERAL: Well-developed in no acute distress. HEENT: Head is normocephalic. Pupils are equal, round. Sclerae anicteric. Mucous membranes of the mouth are moist. Neck supple. No JVD or thyromegaly LUNGS: Respirations even and unlabored. Lungs with wheezing of left lower lobe. HEART: Regular rate and rhythm. S1 and S2 heard. Systolic murmur noted. ABDOMEN: Soft. Nondistended. Nontender. EXTREMITIES: Normal range of motion. No clubbing or cyanosis. Peripheral pulses intact. No lower extremity edema NEUROLOGIC: Awake and alert. Oriented x 3. ASSESSMENT: Shortness of breath Acute on chronic heart failure with reduced EF Coronary artery disease with previous CABG 20 years ago and redo CABG x 2, April 2024 Ischemic cardiomyopathy 2024% Bilateral pleural effusions, right greater than left History of multiple thoracentesis, most recent on 09/07/2024 right side Paroxysmal atrial fibrillation Hypertension Hyperlipidemia PLAN: No need to repeat echocardiogram this was performed earlier this month Resume home cardiac medications Continue IV Lasix. Decrease dosage to 40 mg every 12 hours Daily weights, accurate intake and output, and monitoring of kidney function Further recommendations pending patient course Nurse practitioner note has been reviewed by physician. Signing provider agrees with the documented findings, assessment, and plan of care documented by MANAGER ARCHITECTURE as a scribe. Past Medical History Past Medical History: Coronary Artery Disease (CAD), Chest Pain / Angina, Heart Failure, COPD, GERD/Reflux, Hyperlipidemia, Hypertension, Myocardial Infarction (AK), Osteoarthritis (OA), Sleep Apnea/CPAP/BIPAP Additional Past Medical History / Comment(s): Chronic back pain, left leg weakness. 4LNC. States unsure about having had a heart attack. Last Myocardial Infarction Date:: 11/11/22 History of Any Multi-Drug Resistant Organisms: None Reported Past Surgical History: Back Surgery, Cholecystectomy, Coronary Bypass/CABG, Heart Catheterization With Stent Additional Past Surgical History / Comment(s): Back surgery X2 with cage, left tennis elbow surgery, heart stents X7, colonoscopy. emergency CABG [facility] [place], thrombectomy. April Past Anesthesia/Blood Transfusion Reactions: No Reported Reaction Additional Past Anesthesia/Blood Transfusion Reaction / Comment(s): Pt received blood during CABG without reaction. Date of Last Stent Placement:: Oct 2022 Past Psychological History: Anxiety, Depression, PTSD Smoking Status: Former smoker, Vaper Past Alcohol Use History: None Reported Past Drug Use History: None Reported - Past Family History Father Family Medical History: Coronary Artery Disease (CAD), Deep Vein Thrombosis (DVT), GERD/Reflux, Hyperlipidemia, Myocardial Infarction (AK) Additional Family Medical History / Comment(s): Father of a AK in his 80's. Mother Family Medical History: Coronary Artery Disease (CAD), Myocardial Infarction (AK) Additional Family Medical History / Comment(s): Mother of a AK. Brother(s) Family Medical History: Myocardial Infarction (AK) Additional Family Medical History / Comment(s): . Sister(s) Family Medical History: Cancer, Diabetes Mellitus Additional Family Medical History / Comment(s): Lung cancer. Other sister had Diabetes. Medications and Allergies Home Medications Medication Instructions Recorded Confirmed Type Ezetimibe [Zetia] 10 mg PO DAILY #90 tab 11/18/22 09/25/24 Rx Fluticasone Nasal [place] [Flonase 1 spray EA NOSTRIL BID PRN 01/27/23 09/25/24 History Nasal [place]] Cyclobenzaprine [Flexeril] 10 mg PO BID 08/21/23 09/25/24 History Sodium Bicarbonate Tab 650 mg PO TID #100 tab 01/25/24 09/25/24 Rx Ergocalciferol [Vitamin D2 (1250 1,250 mcg PO Q14D 05/10/24 09/25/24 History Mcg = 28440 Iu)] Ferrous Sulfate [Iron (65 MG 325 mg PO DAILY 05/10/24 09/25/24 History Elemental)] Gabapentin [Neurontin] 100 mg PO TID 05/10/24 09/25/24 History Dapagliflozin Propanediol [Farxiga] 10 mg PO DAILY tab 05/24/24 09/25/24 Rx Ipratropium-Albuterol Nebulize 3 ml INHALATION RT-Q2H PRN each 05/24/24 09/25/24 Rx [Duoneb 0.5 mg-3 mg/3 ml Soln] ALPRAZolam [Xanax] 2 mg PO HS 07/27/24 09/25/24 History Albuterol Inhaler [Ventolin Hfa 2 puff INHALATION RT-Q6H PRN 09/05/24 09/25/24 History Inhaler] Aspirin EC [Ecotrin Low Dose] 81 mg PO DAILY 09/05/24 09/25/24 History Folic Acid 1 mg PO DAILY 09/05/24 09/25/24 History Omeprazole [PriLOSEC] 20 mg PO DAILY 09/05/24 09/25/24 History Tamsulosin [Flomax] 0.4 mg PO DAILY 09/05/24 09/25/24 History allopurinoL [Zyloprim] 100 mg PO DAILY 09/05/24 09/25/24 History rOPINIRole HCL [Requip] 0.25 mg PO HS 09/05/24 09/25/24 History Apixaban [Eliquis] 5 mg PO BID #60 tab 09/09/24 09/25/24 Rx Metoprolol Succinate (ER) [Toprol 25 mg PO DAILY 30 Days #30 tab 09/11/24 09/25/24 Rx XL] Spironolactone [Aldactone] 12.5 mg PO DAILY 30 Days #15 tab 09/11/24 09/25/24 Rx Sacubitril/Valsartan [Entresto 24 1 tab PO BID 09/25/24 09/25/24 History mg-26 mg Tablet] oxyCODONE-APAP 10-325MG [Percocet 1 tab PO Q4HR PRN 09/25/24 09/25/24 History 10-325 mg] Allergies Allergy/AdvReac Type Severity Reaction Status Date / Time latex Allergy Swelling Verified 09/25/24 21:13 atorvastatin [From Lipitor] AdvReac JOINT PAIN Verified 09/25/24 21:13 Physical Exam Vitals: Vital Signs Temp Pulse Resp BP Pulse Ox 09/26/24 10:25 75 16 99/42 94 L 09/26/24 08:48 78 14 101/63 94 L 09/26/24 07:55 80 14 111/71 94 L 09/26/24 06:00 71 18 104/72 93 L 09/26/24 02:00 75 18 98/46 93 L 09/25/24 23:00 79 18 112/48 96 09/25/24 22:41 78 18 119/71 09/25/24 20:56 78 09/25/24 20:50 76 09/25/24 20:08 97.7 F 98 22 124/70 96 Intake and Output 09/25/24 09/26/24 09/26/24 22:59 06:59 14:59 Output Total 1600 Balance -1600 Output: Urine 1600 Other: # Voids 5 # Bowel Movements 1 Weight 115.666 kg Results 09/25/24 20:28 09/25/24 20:28 Cardiac Enzymes 09/25/24 09/25/24 09/25/24 Range/Units 20:28 20:28 23:18 AST 24 (17-59) U/L Troponin I 0.029 0.029 (0.000-0.034) ng/mL 09/26/24 Range/Units 02:43 AST (17-59) U/L Troponin I 0.033 (0.000-0.034) ng/mL Coagulation 09/25/24 Range/Units 20:28 PT 10.8 (10.0-12.5) sec APTT 25.8 (22.0-30.0) sec CBC 09/25/24 Range/Units 20:28 WBC 5.8 (3.8-10.6) k/uL RBC 4.79 (4.30-5.90) m/uL Hgb 12.0 L (13.0-17.5) gm/dL Hct 39.8 (39.0-53.0) % Plt Count 154 (150-450) k/uL Comprehensive Metabolic Panel 09/25/24 Range/Units 20:28 Sodium 138 (137-145) mmol/L Potassium 4.1 (3.5-5.1) mmol/L Chloride 111 H (98-107) mmol/L Carbon Dioxide 20 L (22-30) mmol/L BUN 12 (9-20) mg/dL Creatinine 0.84 (0.66-1.25) mg/dL Glucose 87 (74-99) mg/dL Calcium 9.1 (8.4-10.2) mg/dL AST 24 (17-59) U/L ALT 14 (4-49) U/L Alkaline Phosphatase 130 H (38-126) U/L Total Protein 7.8 (6.3-8.2) g/dL Albumin 4.2 (3.5-5.0) g/dL Current Medications Generic Name Dose Route Start Last Admin Trade Name Freq PRN Reason Stop Dose Admin Apixaban 5 mg 09/26/24 10:45 Apixaban 5 Mg Tab PO BID [facility] Protocol Aspirin 81 mg 09/26/24 10:45 Aspirin 81 Mg PO DAILY [facility] Dapagliflozin 10 mg 09/26/24 10:45 Dapagliflozin Propanediol 10 Mg Tablet PO DAILY [facility] Ezetimibe 10 mg 09/26/24 10:45 Ezetimibe 10 Mg Tab PO DAILY [facility] Furosemide 40 mg 09/26/24 18:00 Furosemide 10 Mg/Ml 4 Ml Vial IV Q12H ELIANA Hydromorphone HCl 1 mg 09/25/24 22:10 09/26/24 06:21 Hydromorphone 1 Mg/Ml 1 Ml Syringe IVP 1 mg Q4HR PRN Administration Pain Metoprolol Succinate 25 mg 09/26/24 10:45 Metoprolol Succinate (Er) 25 Mg Tab.Er.24h PO DAILY [facility] Sacubitril/Valsartan 1 each 09/26/24 10:45 Sacubitril/Valsartan 24 Mg-26 Mg Tablet PO BID [facility] Spironolactone 12.5 mg 09/26/24 10:45 Spironolactone 25 Mg Tab PO DAILY [facility] Intake and Output 09/25/24 09/26/24 09/26/24 22:59 06:59 14:59 Output Total 1600 Balance -1600 Output: Urine 1600 Other: # Voids 5 # Bowel Movements 1 Weight 115.666 kg 09/25/24 20:28 09/25/24 20:28
[2024-09-26] MEDS: ASPIRIN 81 MG PO SCH (11:27)
[2024-09-26] MEDS: METOPROLOL SUCCINATE (ER) 25 MG TAB.ER.24H PO SCH (11:28)
[2024-09-26] MEDS: SPIRONOLACTONE 25 MG TAB PO SCH (11:28)
[2024-09-26] MEDS: SACUBITRIL/VALSARTAN 24 MG-26 MG TABLET PO SCH (11:28)
[2024-09-26] MEDS: DAPAGLIFLOZIN PROPANEDIOL 10 MG TABLET PO SCH (11:28)
[2024-09-26] MEDS: APIXABAN 5 MG TAB PO SCH (11:28)
[2024-09-26] MEDS: EZETIMIBE 10 MG TAB PO SCH (11:28)
[2024-09-26] MEDS: HYDROcodone/APAP 5-325MG 1 EACH TAB PO STA (15:55)
[2024-09-26] MEDS: ONDANSETRON 4 MG/2 ML VIAL IVP STA (15:57)
[2024-09-26] MEDS: FUROSEMIDE 10 MG/ML 4 ML VIAL IV SCH (18:29)
--- NOTE | 2024-09-26 19:20 | PN ---
PROGRESS NOTE DATE OF SERVICE: 09/26/2024 CHIEF COMPLAINT: Chest pain, coronary artery disease, and CHF. HISTORY OF PRESENT ILLNESS: This gentleman is still having chest pain. He has been seen by Cardiology. He denies significant shortness of breath or fever or chills. PHYSICAL EXAMINATION: CHEST: Demonstrates decreased breath sounds with scattered rales. Breath sounds are decreased at the right base posteriorly. CARDIAC: Remains sinus. ABDOMEN: Soft and nontender. IMPRESSION: 1. Unstable angina pectoris. 2. Congestive heart failure. 3. Cardiomyopathy. 4. Right pleural effusion. 5. Chronic obstructive pulmonary disease. PLAN: Await consult from Cardiology and Pulmonology. MMODL / IJN: [id number] /
--- NOTE | 2024-09-26 19:23 | HP ---
HISTORY AND PHYSICAL CHIEF COMPLAINT: Chest pain. HISTORY OF PRESENT ILLNESS: Another admission for this 69-year-old white male with severe and advanced coronary artery disease and congestive heart failure. He underwent his 2nd CABG several months ago. Since then, he has been having episodes of congestive heart failure with right pleural effusion. He continues to smoke. He came to the emergency room with typical anginal chest pain and was admitted. REVIEW OF SYSTEMS: He denies syncope, neurologic problems, cough, hemoptysis, abdominal pain, vomiting, diarrhea, etc. Past medical history, family history, and personal and social histories are otherwise unchanged from his recent admitting and discharge summaries. PHYSICAL EXAMINATION: VITAL SIGNS: Blood pressure is 105/64 with a pulse of 62 and respirations of 34. GENERAL: Appeared to be slightly pale. HEAD, EARS, EYES, NOSE, MOUTH, AND THROAT: Normal. NECK: Veins were distended. CHEST: Poor breath sounds particularly at the right base with scattered rales. CARDIAC: S4. ABDOMEN: Soft. EXTREMITIES: Normal. ASSESSMENT: He is admitted to the hospital with diagnoses of, 1. Unstable angina pectoris. 2. Advanced coronary artery disease, status post 2 bypasses. 3. Chronic obstructive pulmonary disease. 4. Right pleural effusion. 5. Congestive heart failure. PLAN: 1. Bed rest. 2. IV fluids. 3. Serial EKGs and enzymes. 4. Consult with Pulmonology. MMDEYANIRA / NATHALYN: [id number] /
[2024-09-26] MEDS: HYDROcodone/APAP 5-325MG 1 EACH TAB PO PRN (20:14)
[2024-09-26] MEDS: ALPRAZolam 0.25 MG TAB PO SCH (21:48)
[2024-09-26] MEDS: DIPHENOX-ATROP 2.5-0.025 MG 1 EACH TAB PO PRN (21:48)
[2024-09-27 06:40] LABS: African American GFR (CKD) 70 (>60 ml/min/1.73 sqM); Anion Gap 8 mmol/L; Blood Urea Nitrogen 16 mg/dL (9-20); Calcium 8.8 mg/dL (8.4-10.2); Carbon Dioxide 23 mmol/L (22-30); Chloride 104 mmol/L (98-107); Glucose 101 mg/dL (74-99); Non-African American GFR(CKD) 60 (>60 ml/min/1.73 sqM); Potassium 3.9 mmol/L (3.5-5.1); Sodium 135 mmol/L (137-145)
--- NOTE | 2024-09-27 13:30 | P.PN ---
Subjective HISTORY OF PRESENT ILLNESS: This is a 69-year-old male with a past medical history significant for coronary artery disease, congestive heart failure, ischemic cardiomyopathy, paroxysmal atrial fibrillation, hypertension, and hyperlipidemia. Patient follows in the office with Dr. Wiggins. We have been asked to see the patient in consultation for congestive heart failure. Patient examined at the bedside in the emergency room. Patient was hospitalized earlier this month for acute exacerbation of CHF. Patient states he has been feeling short of breath for the past few days. He denied having any chest pain or pressure. He does report having some discomfort in both of his shoulders but thinks it is secondary to arthritis. He denies having any lower extremity edema. He states he has been compliant with all of his medications. Patient states he has not smoked cigarettes in about a month. DIAGNOSTICS: - EKG reveals sinus mechanism with diffuse T wave inversions - Chest xray moderate right pleural effusion with cardiomegaly. Correlate for CHF - Chest CTA: Negative for pulmonary embolism. Airspace consolidation at the lung bases right greater than left, correlate for aspiration pneumonia. Moderate right and small left pleural effusions - Laboratory data: WBC 5.8. Hemoglobin 12.0. Platelet count 154. D-dimer 1.51. Sodium 138. Potassium 4.1. BUN 12. Creatinine 0.84. Lactic acid 1.5. Troponin negative x 3. proBNP 5370. - Current home cardiac medications include Eliquis 5 mg twice a day, aspirin 81 mg daily, Farxiga 10 mg daily, Zetia 10 mg daily, metoprolol succinate 25 mg daily, Entresto 24-26 mg twice a day, Aldactone 12.5 mg daily - Most recent echocardiogram obtained in 09/06/2024 reveals EF 20 to 25%, apical and anterior apical distal anterior septal hypokinesis, moderate to severe MR, mild AR 09/27/2024 Patient examined this morning at the bedside. Patient is laying flat in bed. Patient currently denies chest pain or pressure. He denies shortness of breath. Vital signs are stable. He has been up ambulating to the bathroom without shortness of breath or dizziness. Creatinine today 1.24. PHYSICAL EXAM: VITAL SIGNS: Reviewed. GENERAL: Well-developed in no acute distress. HEENT: Head is normocephalic. Pupils are equal, round. Sclerae anicteric. Mucous membranes of the mouth are moist. Neck supple. No JVD or thyromegaly LUNGS: Respirations even and unlabored. Lungs clear to auscultation HEART: Regular rate and rhythm. S1 and S2 heard. Systolic murmur noted. ABDOMEN: Soft. Nondistended. Nontender. EXTREMITIES: Normal range of motion. No clubbing or cyanosis. Peripheral pulses intact. No lower extremity edema NEUROLOGIC: Awake and alert. Oriented x 3. ASSESSMENT: Shortness of breath Acute on chronic heart failure with reduced EF Coronary artery disease with previous CABG 20 years ago and redo CABG x 2, April 2024 Ischemic cardiomyopathy 2024% Bilateral pleural effusions, right greater than left History of multiple thoracentesis, most recent on 09/07/2024 right side Paroxysmal atrial fibrillation Hypertension Hyperlipidemia PLAN: No need to repeat echocardiogram this was performed earlier this month Continue IV Lasix. Begin oral Lasix 40 mg daily Continue additional cardiac medications Patient is stable for discharge home today from a cardiac standpoint Patient to follow-up postdischarge with Dr. Wiggins Nurse practitioner note has been reviewed by physician. Signing provider agrees with the documented findings, assessment, and plan of care documented by MATCHER OPERATOR as a scribe. Objective - Vital Signs Vital signs: Vital Signs Temp 98.0 F 09/27/24 08:54 Pulse 72 09/27/24 12:12 Resp 18 09/27/24 12:12 BP 89/54 09/27/24 12:12 Pulse Ox 94 L 09/27/24 12:12 FiO2 Intake & Output 09/26/24 09/27/24 09/27/24 18:59 06:59 18:59 Intake Total 250 Output Total 1600 Balance -1600 250 Weight 91.2 kg Intake: IV 10 Invasive Line 1 10 Oral 240 Output: Urine 1600 Other: Voiding Method Toilet Toilet # Voids 5 1 # Bowel Movements 1 2 - Labs CBC & Chem 7: 09/25/24 20:28 09/27/24 06:03 Labs: Abnormal Lab Results - Last 24 Hours (Table) 09/27/24 Range/Units 06:03 Sodium 135 L (137-145) mmol/L Glucose 101 H (74-99) mg/dL
[2024-09-27 13:55] VITALS: BMI 29.7
[2024-09-27] MEDS: ONDANSETRON 4 MG/2 ML VIAL IVP PRN (15:57)
[2024-09-27 18:03] LABS: Anisocytosis Slight; Basophils % (A) 0 %; Eosinophils # (A) 0.1 k/uL (0-0.7); Eosinophils % (A) 1 %; HCT 44.3 % (39.0-53.0); HGB 13.4 gm/dL (13.0-17.5); Hypochromasia Marked; Lymphocytes # (A) 0.8 k/uL (1.0-4.8); Lymphocytes % (A) 11 %; MCH 24.7 pg (25.0-35.0); MCHC 30.2 g/dL (31.0-37.0); MCV 81.7 fL (80.0-100.0); Mean Platelet Volume 9.3; Microcytosis Slight; Monocytes # (A) 0.6 k/uL (0-1.0); Monocytes % (A) 8 %; Neutrophils # (A) 5.8 k/uL (1.3-7.7); Neutrophils % (A) 78 %; Platelet Count 208 k/uL (150-450); RBC 5.42 m/uL (4.30-5.90); WBC 7.4 k/uL (3.8-10.6)
[2024-09-27 18:07] LABS: African American GFR (CKD) 59 (>60 ml/min/1.73 sqM); Amylase 53 U/L (30-110); Anion Gap 12 mmol/L; Blood Urea Nitrogen 19 mg/dL (9-20); Carbon Dioxide 20 mmol/L (22-30); Chloride 104 mmol/L (98-107); Glucose 85 mg/dL (74-99); Lipase 39 U/L (23-300); Non-African American GFR(CKD) 51 (>60 ml/min/1.73 sqM); Potassium 4.1 mmol/L (3.5-5.1); Sodium 136 mmol/L (137-145)
--- NOTE | 2024-09-27 18:41 | XR ---
EXAMINATION TYPE: XR abdomen 2V DATE OF EXAM: 09/27/2024 6:08 PM COMPARISON: 05/14/2015 CLINICAL INDICATION: Male, 69 years old with history of nausea, abdominal pain; [facility]CH[facility]: Two views of the abdomen were obtained. FINDINGS: Right upper quadrant cholecystectomy clips. Gaseous dilation of bowel. Moderate amount stoo l throughout the colon. The bowel gas pattern is nonspecific without dilated loops of small or large bowel. There is no evidence for organomegaly or pneumoperitoneum. The osseous structures are intact. No abnormal calcifications are present. Fecal material and gas are demonstrated throughout the colo n and rectum. Surgical changes in the lower spine appear intact. IMPRESSION: Gaseous dilation of bowel, Nonspecific bowel gas pattern without radiographic evidence for acute proc ess. [facility], , 09/27/2024 6:38 PM
--- NOTE | 2024-09-27 22:47 | PN ---
PROGRESS NOTE DATE OF SERVICE: 09/27/2024 CHIEF COMPLAINT: Chest pain, shortness of breath. HISTORY OF PRESENT ILLNESS: This gentleman is doing well. He was to be discharged and then he developed crampy abdominal pain with nausea, vomiting, diarrhea. He had no hematemesis, melena, or hematochezia. PHYSICAL EXAMINATION: HEAD, EARS, EYES, NOSE, MOUTH, AND THROAT: Normal. ABDOMEN: Soft, nontender. EXTREMITIES: Normal. IMPRESSION: 1. Chest pain. 2. Coronary artery disease. 3. Congestive heart failure. 4. Chronic obstructive pulmonary disease. 5. Probable viral gastroenteritis. PLAN: Cancel discharge and continue with IV fluids, antiemetics, and antidiarrheals. MMODL / IJN: [id number] /
[2024-09-27 23:40] LABS: Appearance,Urine Clear (Clear); Bilirubin,Urine Negative (Negative); Blood,Urine Trace (Negative); Budding Yeast,Urine Rare /hpf; Color,Urine Yellow; Glucose,Urine (UA) 4+ (Negative); Hyaline Casts,Urine 18 /lpf (0-2); Ketones,Urine Negative (Negative); Leukocyte Esterase,Urine Negative (Negative); Mucus,Urine Rare /hpf; Nitrite,Urine Negative (Negative); Protein,Urine Trace (Negative); RBC,Urine 3 /hpf (0-5); Specific Gravity,Urine 1.024 (1.001-1.035); Squamous Epithelial Cell,Urine <1 /hpf (0-4); Urobilinogen,Urine <2.0 mg/dL (<2.0); WBC,Urine 1 /hpf (0-5)
[2024-09-28 07:25] LABS: African American GFR (CKD) 64 (>60 ml/min/1.73 sqM); Anion Gap 9 mmol/L; Blood Urea Nitrogen 22 mg/dL (9-20); Calcium 8.7 mg/dL (8.4-10.2); Carbon Dioxide 20 mmol/L (22-30); Chloride 104 mmol/L (98-107); Glucose 84 mg/dL (74-99); Non-African American GFR(CKD) 56 (>60 ml/min/1.73 sqM); Potassium 3.8 mmol/L (3.5-5.1); Sodium 133 mmol/L (137-145)
[2024-09-28 08:42] VITALS: TEMP 98.2
[2024-09-28] MEDS: FUROSEMIDE 40 MG TAB PO SCH (08:44)
--- NOTE | 2024-09-28 12:18 | P.PN ---
Subjective HISTORY OF PRESENT ILLNESS: This is a 69-year-old male with a past medical history significant for coronary artery disease, congestive heart failure, ischemic cardiomyopathy, paroxysmal atrial fibrillation, hypertension, and hyperlipidemia. Patient follows in the office with Dr. Wiggins. We have been asked to see the patient in consultation for congestive heart failure. Patient examined at the bedside in the emergency room. Patient was hospitalized earlier this month for acute exacerbation of CHF. Patient states he has been feeling short of breath for the past few days. He denied having any chest pain or pressure. He does report having some discomfort in both of his shoulders but thinks it is secondary to arthritis. He denies having any lower extremity edema. He states he has been compliant with all of his medications. Patient states he has not smoked cigarettes in about a month. DIAGNOSTICS: - EKG reveals sinus mechanism with diffuse T wave inversions - Chest xray moderate right pleural effusion with cardiomegaly. Correlate for CHF - Chest CTA: Negative for pulmonary embolism. Airspace consolidation at the lung bases right greater than left, correlate for aspiration pneumonia. Moderate right and small left pleural effusions - Laboratory data: WBC 5.8. Hemoglobin 12.0. Platelet count 154. D-dimer 1.51. Sodium 138. Potassium 4.1. BUN 12. Creatinine 0.84. Lactic acid 1.5. Troponin negative x 3. proBNP 5370. - Current home cardiac medications include Eliquis 5 mg twice a day, aspirin 81 mg daily, Farxiga 10 mg daily, Zetia 10 mg daily, metoprolol succinate 25 mg daily, Entresto 24-26 mg twice a day, Aldactone 12.5 mg daily - Most recent echocardiogram obtained in 09/06/2024 reveals EF 20 to 25%, apical and anterior apical distal anterior septal hypokinesis, moderate to severe MR, mild AR 09/27/2024 Patient examined this morning at the bedside. Patient is laying flat in bed. Patient currently denies chest pain or pressure. He denies shortness of breath. Vital signs are stable. He has been up ambulating to the bathroom without shortness of breath or dizziness. Creatinine today 1.24. 09/28/2024 Patient examined this morning the bedside. Patient currently denies chest pain or pressure. He denies shortness of breath. Vital signs are stable. Patient was noted to be eating [employer]s for breakfast this morning. PHYSICAL EXAM: VITAL SIGNS: Reviewed. GENERAL: Well-developed in no acute distress. HEENT: Head is normocephalic. Pupils are equal, round. Sclerae anicteric. Mucous membranes of the mouth are moist. Neck supple. No JVD or thyromegaly LUNGS: Respirations even and unlabored. Lungs clear to auscultation HEART: Regular rate and rhythm. S1 and S2 heard. Systolic murmur noted. ABDOMEN: Soft. Nondistended. Nontender. EXTREMITIES: Normal range of motion. No clubbing or cyanosis. Peripheral pulses intact. No lower extremity edema NEUROLOGIC: Awake and alert. Oriented x 3. ASSESSMENT: Shortness of breath Acute on chronic heart failure with reduced EF Coronary artery disease with previous CABG 20 years ago and redo CABG x 2, April 2024 Ischemic cardiomyopathy 2024% Bilateral pleural effusions, right greater than left History of multiple thoracentesis, most recent on 09/07/2024 right side Paroxysmal atrial fibrillation Hypertension Hyperlipidemia PLAN: No need to repeat echocardiogram this was performed earlier this month Continue current cardiac medications Patient eating [employer]s this morning for breakfast. Reinforced importance of following low-sodium diet. Patient is stable for discharge home today from a cardiac standpoint Patient to follow-up postdischarge with Dr. Wiggins We will sign off. Please reconsult if needed. Nurse practitioner note has been reviewed by physician. Signing provider agrees with the documented findings, assessment, and plan of care documented by INTERVIEWING CLERK as a scribe. Objective - Vital Signs Vital signs: Vital Signs Temp 98.2 F 09/28/24 08:40 Pulse 77 09/28/24 08:40 Resp 16 09/28/24 08:40 BP 97/56 09/28/24 08:40 Pulse Ox 93 L 09/28/24 08:40 FiO2 Intake & Output 09/27/24 09/28/24 09/28/24 18:59 06:59 18:59 Intake Total 120 Balance 120 Weight 91.2 kg 89.9 kg Intake: Oral 120 Other: Voiding Method Toilet Toilet Toilet - Labs CBC & Chem 7: 09/27/24 17:06 09/28/24 06:53 Labs: Abnormal Lab Results - Last 24 Hours (Table) 09/27/24 09/27/24 09/27/24 Range/Units 17:06 17:06 23:24 MCH 24.7 L (25.0-35.0) pg MCHC 30.2 L (31.0-37.0) g/dL RDW 19.0 H (11.5-15.5) % Lymphocytes # 0.8 L (1.0-4.8) k/uL Sodium 136 L (137-145) mmol/L Carbon Dioxide 20 L (22-30) mmol/L BUN (9-20) mg/dL Creatinine 1.42 H (0.66-1.25) mg/dL Urine Protein Trace H (Negative) Urine Glucose (UA) 4+ H (Negative) Urine Blood Trace H (Negative) Hyaline Casts 18 H (0-2) /lpf Urine Mucus Rare H (None) /hpf Urine Yeast (Budding) Rare H (None) /hpf 09/28/24 Range/Units 06:53 MCH (25.0-35.0) pg MCHC (31.0-37.0) g/dL RDW (11.5-15.5) % Lymphocytes # (1.0-4.8) k/uL Sodium 133 L (137-145) mmol/L Carbon Dioxide 20 L (22-30) mmol/L BUN 22 H (9-20) mg/dL Creatinine 1.32 H (0.66-1.25) mg/dL Urine Protein (Negative) Urine Glucose (UA) (Negative) Urine Blood (Negative) Hyaline Casts (0-2) /lpf Urine Mucus (None) /hpf Urine Yeast (Budding) (None) /hpf
[2024-09-28 16:11] VITALS: BP 95/51; PULSE 60; RESP 16
--- NOTE | 2024-09-30 08:34 | DS ---
DISCHARGE SUMMARY CHIEF COMPLAINT: Chest pain and shortness of breath. HISTORY OF PRESENT ILLNESS AND PHYSICAL EXAMINATION: Details of this gentleman's history and physical can be found in the initial workup. LABORATORY STUDIES: While he is in the hospital, he had laboratory studies, details of which can be found in the laboratory section of his chart. COURSE IN THE HOSPITAL: After admission, he was placed on bedrest, started on intravenous fluids, and had serial EKGs and enzymes. Seen by Cardiology. They felt that no further workup was necessary and that he could be discharged. His pleural effusion was not increased. He will go home on his usual medications, diet and activity and followed up in several days. FINAL DIAGNOSES: 1. Unstable angina pectoris. 2. Acute coronary syndrome. 3. Coronary artery disease. 4. Status post coronary artery bypass graft x2. 5. Chronic obstructive pulmonary disease. 6. Hyperlipidemia. OPERATIONS: None. CONSULTATION: Cardiology. He is improved. MMCECILL / IJN: [id number] /
== END 2024-09-28 16:59 | disposition home or self-care (01) ==
LOC: EC 20:06 → 3SCARD 21:54
PROVIDERS: ADMIT Family Medicine; ATTEND Family Medicine
DX: I11.0 Hypertensive heart disease with heart failure (principal); I50.23 Acute on chronic systolic (congestive) heart failure; I24.9 Acute ischemic heart disease, unspecified; I25.110 Atherosclerotic heart disease of native coronary artery with unstable angina pectoris; I25.5 Ischemic cardiomyopathy; I08.0 Rheumatic disorders of both mitral and aortic valves; I48.0 Paroxysmal atrial fibrillation; E78.5 Hyperlipidemia, unspecified; F17.210 Nicotine dependence, cigarettes, uncomplicated; J44.9 Chronic obstructive pulmonary disease, unspecified; R10.9 Unspecified abdominal pain; R11.2 Nausea with vomiting, unspecified; R19.7 Diarrhea, unspecified; M19.012 Primary osteoarthritis, left shoulder; M19.011 Primary osteoarthritis, right shoulder; Z79.82 Long term (current) use of aspirin; Z79.84 Long term (current) use of oral hypoglycemic drugs; Z79.01 Long term (current) use of anticoagulants; Z79.899 Other long term (current) drug therapy; Z91.040 Latex allergy status; Z88.8 Allergy status to other drugs, medicaments and biological substances; Z95.1 Presence of aortocoronary bypass graft
CPT/HCPCS: 96376 ×3; 96374; 96375 ×2; 99291; 36415; 94640; 93005; 85379; 83880; 80053; 80048 ×2; 82150; 83605; 83690; 83735; 84484 ×2; 85025 ×2; 85610; 85730; 81001; 87040; 87324; 71045; 74019; 71275; G0378 ×4; J1940 ×3; J2405 ×2; J1171 ×2; Q9967

== ENCOUNTER 2024-10-17 13:23 | Inpatient (IN) | payer MEDICARE, OTHER ==
--- NOTE | 2024-10-17 14:01 | ED ---
Chest Pain HPI - General Chief Complaint: Chest Pain Stated Complaint: Chest Pain Time Seen by Provider: 10/17/24 13:25 Source: patient Mode of arrival: ambulatory Limitations: no limitations - History of Present Illness Initial Comments: 69-year-old male with past medical history of coronary artery disease, congestive heart failure, COPD who presents emergency department reporting chest pain. States that the pain has been going on since last night. He also has extreme shortness of breath. States he cannot take a deep breath in. He does have COPD and took a breathing treatment this morning. He has been coughing with productive frothy white sputum. He has congestive heart failure. Patient had valvular repair in April. He does report to a history of PE. He has been taking his Eliquis without any missed doses. He denies any fevers. He did take some nitro today without alleviation in his pain. No other alleviating, precipitating or modifying factors - Related Data Home Medications Medication Instructions Recorded Confirmed Fluticasone Nasal [place] [Flonase 1 spray EA NOSTRIL BID PRN 01/27/23 10/17/24 Nasal [place]] Cyclobenzaprine [Flexeril] 10 mg PO BID 08/21/23 10/17/24 Ergocalciferol [Vitamin D2 (1250 1,250 mcg PO Q14D 05/10/24 10/17/24 Mcg = 60157 Iu)] Ferrous Sulfate [Iron (65 MG 325 mg PO DAILY 05/10/24 10/17/24 Elemental)] Gabapentin [Neurontin] 100 mg PO TID 05/10/24 10/17/24 ALPRAZolam [Xanax] 2 mg PO HS 07/27/24 10/17/24 Albuterol Inhaler [Ventolin Hfa 2 puff INHALATION RT-Q6H PRN 09/05/24 10/17/24 Inhaler] Aspirin EC [Ecotrin Low Dose] 81 mg PO DAILY 09/05/24 10/17/24 Folic Acid 1 mg PO DAILY 09/05/24 10/17/24 Omeprazole [PriLOSEC] 20 mg PO DAILY 09/05/24 10/17/24 Tamsulosin [Flomax] 0.4 mg PO DAILY 09/05/24 10/17/24 allopurinoL [Zyloprim] 100 mg PO DAILY 09/05/24 10/17/24 rOPINIRole HCL [Requip] 0.25 mg PO HS 09/05/24 10/17/24 Sacubitril/Valsartan [Entresto 24 1 tab PO BID 09/25/24 10/17/24 mg-26 mg Tablet] oxyCODONE-APAP 10-325MG [Percocet 1 tab PO Q4HR PRN 09/25/24 10/17/24 10-325 mg] Spironolactone [Aldactone] 12.5 mg PO DAILY 10/17/24 10/17/24 Previous Rx's Medication Instructions Recorded Ezetimibe [Zetia] 10 mg PO DAILY #90 tab 11/18/22 Sodium Bicarbonate Tab 650 mg PO TID #100 tab 01/25/24 Dapagliflozin Propanediol [Farxiga] 10 mg PO DAILY tab 05/24/24 Ipratropium-Albuterol Nebulize 3 ml INHALATION RT-Q2H PRN each 05/24/24 [Duoneb 0.5 mg-3 mg/3 ml Soln] Apixaban [Eliquis] 5 mg PO BID #60 tab 09/09/24 Metoprolol Succinate (ER) [Toprol 25 mg PO DAILY 30 Days #30 tab 09/11/24 XL] Allergies Allergy/AdvReac Type Severity Reaction Status Date / Time latex Allergy Swelling Verified 10/17/24 16:43 atorvastatin [From Lipitor] AdvReac JOINT PAIN Verified 10/17/24 16:43 Review of Systems ROS Statement: Those systems with pertinent positive or pertinent negative responses have been documented in the HPI. ROS Other: All systems not noted in ROS Statement are negative. Past Medical History Past Medical History: Coronary Artery Disease (CAD), Chest Pain / Angina, Heart Failure, COPD, GERD/Reflux, Hyperlipidemia, Hypertension, Myocardial Infarction (CT), Osteoarthritis (OA), Sleep Apnea/CPAP/BIPAP Additional Past Medical History / Comment(s): Chronic back pain, left leg weakness. 4LNC. States unsure about having had a heart attack. Last Myocardial Infarction Date:: 11/11/22 History of Any Multi-Drug Resistant Organisms: None Reported Past Surgical History: Back Surgery, Cholecystectomy, Coronary Bypass/CABG, Heart Catheterization With Stent Additional Past Surgical History / Comment(s): Back surgery X2 with cage, left tennis elbow surgery, heart stents X7, colonoscopy. emergency CABG [facility], thrombectomy. April Past Anesthesia/Blood Transfusion Reactions: No Reported Reaction Additional Past Anesthesia/Blood Transfusion Reaction / Comment(s): Pt received blood during CABG without reaction. Date of Last Stent Placement:: Oct 2022 Past Psychological History: Anxiety, Depression, PTSD Smoking Status: Former smoker, Vaper Past Alcohol Use History: None Reported Past Drug Use History: None Reported - Past Family History Father Family Medical History: Coronary Artery Disease (CAD), Deep Vein Thrombosis (DVT), GERD/Reflux, Hyperlipidemia, Myocardial Infarction (CT) Additional Family Medical History / Comment(s): Father of a CT in his 80's. Mother Family Medical History: Coronary Artery Disease (CAD), Myocardial Infarction (CT) Additional Family Medical History / Comment(s): Mother of a CT. Brother(s) Family Medical History: Myocardial Infarction (CT) Additional Family Medical History / Comment(s): . Sister(s) Family Medical History: Cancer, Diabetes Mellitus Additional Family Medical History / Comment(s): Lung cancer. Other sister had Diabetes. General Exam Limitations: no limitations General appearance: alert, in no apparent distress Head exam: Present: atraumatic, normocephalic, normal inspection Eye exam: Present: normal appearance, PERRL, EOMI. Absent: scleral icterus, conjunctival injection, periorbital swelling ENT exam: Present: normal exam, mucous membranes moist Neck exam: Present: normal inspection. Absent: tenderness, meningismus, lymphadenopathy Respiratory exam: Present: rales, accessory muscle use, decreased breath sounds. Absent: respiratory distress, wheezes, rhonchi, stridor Cardiovascular Exam: Present: regular rate, normal rhythm, normal heart sounds. Absent: systolic murmur, diastolic murmur, rubs, gallop, clicks GI/Abdominal exam: Present: soft, normal bowel sounds. Absent: distended, tenderness, guarding, rebound, rigid Extremities exam: Present: normal inspection, full ROM, normal capillary refill. Absent: tenderness, pedal edema, joint swelling, calf tenderness Back exam: Present: normal inspection Neurological exam: Present: alert, oriented X3, CN II-XII intact Psychiatric exam: Present: normal affect, normal mood Skin exam: Present: warm, dry, intact, normal color. Absent: rash Course Vital Signs 10/17/24 10/17/24 10/17/24 13:24 15:08 16:53 Temperature 97.9 F 98.4 F Pulse Rate 74 77 76 Pulse Rate [ Right Sitting Pulse Oximetery ] Respiratory 18 18 Rate Blood Pressure 138/77 114/69 Blood Pressure [Right Arm Sitting] O2 Sat by Pulse 96 98 Oximetry 10/17/24 10/17/24 10/17/24 17:01 18:39 19:14 Temperature Pulse Rate 82 80 Pulse Rate [ Right Sitting Pulse Oximetery ] Respiratory 18 20 Rate Blood Pressure 118/60 Blood Pressure [Right Arm Sitting] O2 Sat by Pulse 100 Oximetry 10/17/24 10/17/24 10/17/24 19:38 19:47 21:45 Temperature 98.3 F 98.2 F Pulse Rate 85 Pulse Rate [ 88 Right Sitting Pulse Oximetery ] Respiratory 20 20 16 Rate Blood Pressure 120/76 Blood Pressure 123/73 [Right Arm Sitting] O2 Sat by Pulse 99 97 Oximetry Chest Pain MDM - MDM Was pt. sent in by a medical professional or institution (, PA, GREEN JOBS TRAINER, urgent care, hospital, or skilled nursing...) When possible be specific @ -No Did you speak to anyone other than the patient for history (EMS, parent, family, police, friend...)? What history was obtained from this source @ -No Did you review nursing and triage notes (agree or disagree)? Why? @ -I reviewed and agree with nursing and triage notes Were old charts reviewed (outside hosp., previous admission, EMS record, old EKG, old radiological studies, urgent care reports/EKG's, skilled nursing records)? Report findings @ -No old charts were reviewed Differential Diagnosis (chest pain, altered mental status, abdominal pain women, abdominal pain men, vaginal bleeding, weakness, fever, dyspnea, syncope, headache, dizziness, GI bleed, back pain, seizure, CVA, palpatations, mental health, musculoskeletal)? @ -Differential Dyspnea: Coronary syndrome, arrhythmia, tamponade, asthma, COPD, pulmonary embolism, pneumonia, pneumothorax, pulmonary effusion, anaphylaxis, diabetic ketoacidosis, flailed chest, pulmonary contusion, diaphragmatic rupture, anemia, neuromuscular, this is not meant to be an all-inclusive list. EKG interpreted by me (3pts min.). @ -Yes and demonstrates sinus rhythm with a rate of 80. QRS 108. QTc of 452. Q wave lead III and aVF. No acute ST segment elevation X-rays interpreted by me (1pt min.). @ -Yes and demonstrates heart failure CT interpreted by me (1pt min.). @ -None done U/S interpreted by me (1pt. min.). @ -None done What testing was considered but not performed or refused? (CT, X-rays, U/S, labs)? Why? @ -None What meds were considered but not given or refused? Why? @ -None Did you discuss the management of the patient with other professionals (professionals i.e. Dr., PA, GREEN JOBS TRAINER, lab, RT, psych nurse, social work associate, machine puller and laster, teacher, radio electronics officer, spring encaser)? Give summary @ -Spoke with Dr. Gee for the admission Was smoking cessation discussed for >3mins.? @ -No Was critical care preformed (if so, how long)? @ -No Were there social determinants of health that impacted care today? How? (Homelessness, low income, unemployed, alcoholism, drug addiction, transportation, low edu. Level, literacy, decrease access to med. care, penitentiary, rehab)? @ -No Was there de-escalation of care discussed even if they declined (Discuss DNR or withdrawal of care, Hospice)? DNR status @ -No What co-morbidities impacted this encounter? (DM, HTN, Smoking, COPD, CAD, Cancer, CVA, ARF, Chemo, Hep., AIDS, mental health diagnosis, sleep apnea, morbid obesity)? @ -Congestive heart failure Was patient admitted / discharged? Hospital course, mention meds given and route, prescriptions, significant lab abnormalities, going to OR and other pertinent info. @ -Upon arrival patient seen and evaluated in room 22. Thorough history and physical exam was performed. Patient placed on continuous pulse ox and cardiac monitoring. Twelve-lead EKG is obtained. Chest x-ray was performed which demonstrates congestive heart failure. Patient was given a dose of Lasix. He was also given a breathing treatment. Patient continues to have increased work of breathing and therefore did recommend admission. I spoke with Dr. Gee for the admission Undiagnosed new problem with uncertain prognosis? @ -No Drug Therapy requiring intensive monitoring for toxicity (Heparin, Nitro, Insulin, Cardizem)? @ -No Were any procedures done? @ -No Diagnosis/symptom? @ -Acute dyspnea, acute exacerbation of CHF Acute, or Chronic, or Acute on Chronic? @ -Acute Uncomplicated (without systemic symptoms) or Complicated (systemic symptoms)? @ -Complicated Side effects of treatment? @ -No Exacerbation, Progression, or Severe Exacerbation? @ -No Poses a threat to life or bodily function? How? (Chest pain, [place], CT, pneumonia, PE, COPD, DKA, ARF, appy, cholecystitis, CVA, Diverticulitis, Homicidal, Suicidal, threat to staff... and all critical care pts) @ -No Disposition Clinical Impression: CHF exacerbation, Chest pain Disposition: ADMITTED IP TO THIS [facility] Condition: Stable Is patient prescribed a controlled substance at d/c from ED?: No Time of Disposition: 17:46 Decision to Admit Reason: Admit from EC Decision Date: 10/17/24 Decision Time: 17:46
--- NOTE | 2024-10-17 14:15 | XR ---
EXAMINATION TYPE: XR chest 2V DATE OF EXAM: 10/17/2024 2:09 PM COMPARISON: 09/25/2024 CLINICAL INDICATION: Male, 69 years old with history of Chest Pain, TECHNIQUE: Frontal and lateral views of the chest are obtained. FINDINGS: Persistent cardiomegaly with pulmonary venous congestion. Right basilar effusion. Underlyin g infiltrate and/or atelectasis not excluded. Changes of median sternotomy. IMPRESSION: Correlate for congestive failure. Underlying infiltrate of other etiology not excluded. [facility], , 10/17/2024 2:13 PM
[2024-10-17 14:20] LABS: Anisocytosis Slight; Basophils % (A) 0 %; Eosinophils # (A) 0.1 k/uL (0-0.7); Eosinophils % (A) 1 %; HCT 38.9 % (39.0-53.0); HGB 12.1 gm/dL (13.0-17.5); Hypochromasia Moderate; Lymphocytes # (A) 0.9 k/uL (1.0-4.8); Lymphocytes % (A) 13 %; MCH 25.5 pg (25.0-35.0); MCHC 31.1 g/dL (31.0-37.0); MCV 81.9 fL (80.0-100.0); Mean Platelet Volume 10.1; Microcytosis Slight; Monocytes # (A) 0.5 k/uL (0-1.0); Monocytes % (A) 7 %; Neutrophils # (A) 5.5 k/uL (1.3-7.7); Neutrophils % (A) 77 %; Platelet Count 148 k/uL (150-450); RBC 4.74 m/uL (4.30-5.90); RDW 19.1 % (11.5-15.5); WBC 7.2 k/uL (3.8-10.6)
[2024-10-17 14:32] LABS: ALT 12 U/L (4-49); AST 20 U/L (17-59); African American GFR (CKD) >90 (>60 ml/min/1.73 sqM); Albumin 4.6 g/dL (3.5-5.0); Alkaline Phosphatase 148 U/L (38-126); Anion Gap 14 mmol/L; Blood Urea Nitrogen 14 mg/dL (9-20); Calcium 9.7 mg/dL (8.4-10.2); Carbon Dioxide 19 mmol/L (22-30); Chloride 106 mmol/L (98-107); Glucose 106 mg/dL (74-99); Magnesium 1.8 mg/dL (1.6-2.3); Non-African American GFR(CKD) 89 (>60 ml/min/1.73 sqM); Sodium 139 mmol/L (137-145); Total Bilirubin 1.1 mg/dL (0.2-1.3); Total Protein 8.2 g/dL (6.3-8.2)
[2024-10-17 14:39] LABS: NT-Pro-B-Type Natriuretic Pept 3070 pg/mL
[2024-10-17 14:40] LABS: Partial Thromboplastin Time 25.9 sec (22.0-30.0); Prothrombin Time 11.1 sec (10.0-12.5)
[2024-10-17] MEDS: HYDROmorphone 1 MG/ML 1 ML SYRINGE IVP STA (15:33)
[2024-10-17] MEDS: FUROSEMIDE 10 MG/ML 4 ML VIAL IV STA (15:36)
[2024-10-17] MEDS: IPRATROPIUM-ALBUTEROL 3 ML NEB INHALATION STA (16:50)
[2024-10-17] MEDS ORDERED: NALOXONE 0.4 MG/ML 1 ML VIAL IV PRN (17:46)
[2024-10-17] MEDS: MORPHINE SULFATE 4 MG/ML SYRINGE IVP STA (18:34)
[2024-10-17] MEDS: MORPHINE SULFATE 4 MG/ML SYRINGE IV PRN (22:39)
[2024-10-18] MEDS: ALPRAZolam 0.25 MG TAB PO PRN (01:52)
[2024-10-18] MEDS ORDERED: IPRATROPIUM-ALBUTEROL 3 ML NEB INHALATION PRN ×2 (02:59→15:31)
--- NOTE | 2024-10-18 03:42 | P.CNPUL ---
History of Present Illness Consult date: 10/18/24 Requesting physician: Ava Field Reason for consult: pleural effusion Chief complaint: Shortness of breath History of present illness: Patient is a 69-year-old male with past medical history significant for coronary artery disease status post PCI/stenting and CABG. Patient's original CABG was over 20 years ago, more recently had a two-vessel redo off-pump CABG April,. Also, he has severe ischemic cardiomyopathy with ejection fraction of 20 to 25%, recurrent right-sided pleural effusion requiring frequent thoracentesis, hypertension, hyperlipidemia, A-fib, left carotid artery stenosis, chronic oxygen dependence on 4 L/min nasal cannula while at home, COPD, former tobacco dependence. He is known to have recurrent right-sided pleural effusion, requiring multiple previous thoracentesis. Most recently drained September 07, 2024. Was total of 1.7 L of fluid was removed. Previously sent for fluid analysis, this has been a transudative effusion in the past. Fluid cytology previously negative for malignant cells. He is not familiar with his home medications. States he is not on any Lasix or Bumex at this time. Aldactone is listed in his home medications. Patient's most recent echocardiogram done August, showing a severely reduced left ventricular ejection fraction of 20 to 25%, as well as, moderate to severe mitral regurgitation. He is on a combination of Entresto, Farxiga, metoprolol, among other things. He is chronically anticoagulated on Eliquis. Patient presented to emergency department yesterday afternoon complaining mostly of extreme shortness of breath. Over the last 2 to 3 days he has had a productive cough with copious amounts of yellow to green sputum. Does report history of COPD. No longer smokes. Denies any fevers, chills, chest pain, hemoptysis. Unrelated, he is complaining of some lumbar level back pain, which he states is chronic. No weakness in the lower extremities or saddle anesthesia or loss of bowel or bladder control. Chest x-ray done on admission showing cardiomegaly, pulmonary vascular congestion, and a large right-sided pleural effusion. CBC: WBC count 7.2, hemoglobin 12.1, hematocrit 38.9, platelets 148. CMP is unremarkable. Electrolytes WDL. Glucose 106. LFTs unremarkable. Troponins 0.013, 0.017, and 0.019. NT proBNP elevated at 3070. EKG: Normal sinus rhythm, rate 80 bpm, chronic T wave inversions in 1, aVL, V5 V6; 2, aVF. Negative for influenza, RSV, COVID. Patient is currently being evaluated on the cardiac observation unit. He is tachypneic. Speaking in short phrases. He is on 3 L/min nasal cannula. He did receive 1 dose of Lasix earlier. Review of Systems Constitutional: Reports fatigue, Denies chills, Denies fever, Denies poor appetite, Denies weight gain, Denies weight loss Ears, nose, mouth and throat: Denies headache, Denies nasal congestion, Denies nasal discharge, Denies post-nasal drip, Denies sinus pain, Denies sinus pressure, Denies sore throat Cardiovascular: Reports dyspnea on exertion, Reports orthopnea, Reports shortness of breath, Denies chest pain, Denies leg edema, Denies lightheadedness, Denies palpitations, Denies paroxysmal nocturnal dyspnea, Denies syncope Respiratory: Reports congestion, Reports cough with sputum, Reports dyspnea, Rep orts excessive sputum, Reports home oxygen, Reports wheezing Gastrointestinal: Denies abdominal pain, Denies diarrhea, Denies nausea, Denies vomiting Genitourinary: Denies dysuria Musculoskeletal: Reports low back pain, Denies frequent falls, Denies limitation of motion, Denies shooting leg pain Integumentary: Denies rash Neurological: Denies seizures, Denies syncope Psychiatric: Denies anxiety, Denies depression Past Medical History Past Medical History: Coronary Artery Disease (CAD), Chest Pain / Angina, Heart Failure, COPD, GERD/Reflux, Hyperlipidemia, Hypertension, Myocardial Infarction (AK), Osteoarthritis (OA), Sleep Apnea/CPAP/BIPAP Additional Past Medical History / Comment(s): Chronic back pain, left leg weakness. 4LNC. States unsure about having had a heart attack. RLS. Last Myocardial Infarction Date:: 11/11/22 History of Any Multi-Drug Resistant Organisms: None Reported Past Surgical History: Back Surgery, Cholecystectomy, Coronary Bypass/CABG, Heart Catheterization With Stent Additional Past Surgical History / Comment(s): Back surgery X2 with cage, left tennis elbow surgery, heart stents X7, colonoscopy. emergency CABG [facility] [place], thrombectomy. April Past Anesthesia/Blood Transfusion Reactions: No Reported Reaction Additional Past Anesthesia/Blood Transfusion Reaction / Comment(s): Pt received blood during CABG without reaction. Date of Last Stent Placement:: Oct 2022 Past Psychological History: Anxiety, Depression, PTSD Additional Psychological History / Comment(s): He ambulates with a cane. He drives. Smoking Status: Former smoker Past Alcohol Use History: None Reported Additional Past Alcohol Use History / Comment(s): Started smoking in 1967. No alcohol in 30+ yrs. Past Drug Use History: None Reported Additional Drug Use History / Comment(s): States no cocaine use for 30+ yrs. - Past Family History Father Family Medical History: Coronary Artery Disease (CAD), Deep Vein Thrombosis (DVT), GERD/Reflux, Hyperlipidemia, Myocardial Infarction (AK) Additional Family Medical History / Comment(s): Father of a AK in his 80's. Mother Family Medical History: Coronary Artery Disease (CAD), Myocardial Infarction (AK) Additional Family Medical History / Comment(s): Mother of a AK. Brother(s) Family Medical History: Myocardial Infarction (AK) Additional Family Medical History / Comment(s): . Sister(s) Family Medical History: Cancer, Diabetes Mellitus Additional Family Medical History / Comment(s): Lung cancer. Other sister had Diabetes. Medications and Allergies Home Medications Medication Instructions Recorded Confirmed Type Ezetimibe [Zetia] 10 mg PO DAILY #90 tab 11/18/22 10/17/24 Rx Fluticasone Nasal [place] [Flonase 1 spray EA NOSTRIL BID PRN 01/27/23 10/17/24 History Nasal [place]] Cyclobenzaprine [Flexeril] 10 mg PO BID 08/21/23 10/17/24 History Sodium Bicarbonate Tab 650 mg PO TID #100 tab 01/25/24 10/17/24 Rx Ergocalciferol [Vitamin D2 (1250 1,250 mcg PO Q14D 05/10/24 10/17/24 History Mcg = 05607 Iu)] Ferrous Sulfate [Iron (65 MG 325 mg PO DAILY 05/10/24 10/17/24 History Elemental)] Gabapentin [Neurontin] 100 mg PO TID 05/10/24 10/17/24 History Dapagliflozin Propanediol [Farxiga] 10 mg PO DAILY tab 05/24/24 10/17/24 Rx Ipratropium-Albuterol Nebulize 3 ml INHALATION RT-Q2H PRN each 05/24/24 10/17/24 Rx [Duoneb 0.5 mg-3 mg/3 ml Soln] ALPRAZolam [Xanax] 2 mg PO HS 07/27/24 10/17/24 History Albuterol Inhaler [Ventolin Hfa 2 puff INHALATION RT-Q6H PRN 09/05/24 10/17/24 History Inhaler] Aspirin EC [Ecotrin Low Dose] 81 mg PO DAILY 09/05/24 10/17/24 History Folic Acid 1 mg PO DAILY 09/05/24 10/17/24 History Omeprazole [PriLOSEC] 20 mg PO DAILY 09/05/24 10/17/24 History Tamsulosin [Flomax] 0.4 mg PO DAILY 09/05/24 10/17/24 History allopurinoL [Zyloprim] 100 mg PO DAILY 09/05/24 10/17/24 History rOPINIRole HCL [Requip] 0.25 mg PO HS 09/05/24 10/17/24 History Apixaban [Eliquis] 5 mg PO BID #60 tab 09/09/24 10/17/24 Rx Metoprolol Succinate (ER) [Toprol 25 mg PO DAILY 30 Days #30 tab 09/11/24 10/17/24 Rx XL] Sacubitril/Valsartan [Entresto 24 1 tab PO BID 09/25/24 10/17/24 History mg-26 mg Tablet] oxyCODONE-APAP 10-325MG [Percocet 1 tab PO Q4HR PRN 09/25/24 10/17/24 History 10-325 mg] Spironolactone [Aldactone] 12.5 mg PO DAILY 10/17/24 10/17/24 History Allergies Allergy/AdvReac Type Severity Reaction Status Date / Time latex Allergy Swelling Verified 10/17/24 16:43 atorvastatin [From Lipitor] AdvReac JOINT PAIN Verified 10/17/24 16:43 Physical Exam Vitals: Vital Signs Temp Pulse Pulse Resp BP BP Pulse Ox 10/17/24 21:57 85 19 105/66 94 L 10/17/24 21:45 98.2 F 85 16 120/76 97 10/17/24 19:47 98.3 F 88 20 123/73 99 10/17/24 19:38 20 10/17/24 19:14 20 10/17/24 18:39 80 18 118/60 100 10/17/24 17:01 82 10/17/24 16:53 76 10/17/24 15:08 98.4 F 77 18 114/69 98 10/17/24 13:24 97.9 F 74 18 138/77 96 Intake and Output 10/17/24 10/17/24 10/18/24 14:59 22:59 06:59 Output Total 1999 Balance -1999 Output: Urine 1999 Other: Voiding Method Toilet Urinal # Bowel Movements 0 Weight 72.575 kg 72.575 kg GENERAL EXAM: Alert, 69-year-old male, attempting to sit up in bed, tachypneic HEAD: Normocephalic and atraumatic EYES: Normal reaction of pupils, equal size. NOSE: Clear with pink turbinates. THROAT: No erythema or exudates. NECK: No masses, no JVD. CHEST: No chest wall deformity. Remote appearing sternotomy incision approximated and pink LUNGS: Equal air entry with diminished right lower lung sounds. Scattered wheezing and rhonchi. On 3 L/min nasal cannula. Tachypneic. Speaks in short phrases and appears dyspneic CVS: S1 and S2 normal with systolic murmur, regular rhythm. No other extra heart sounds ABDOMEN: No hepatosplenomegaly, active bowel sounds, no guarding or rigidity. SPINE: No scoliosis or deformity SKIN: No rashes CENTRAL NERVOUS SYSTEM: No focal deficits, tone is normal in all 4 extremities. EXTREMITIES: There is no peripheral edema, clubbing, or cyanosis. Peripheral pulses are intact. Results - Laboratory Findings CBC and BMP: 10/18/24 04:38 10/18/24 04:38 PT/INR, D-dimer PT 11.1 sec (10.0-12.5) 10/17/24 13:55 INR 1.0 (<1.2) 10/17/24 13:55 Abnormal lab findings: Abnormal Labs 10/17/24 10/17/24 13:55 13:55 Hgb 12.1 L Hct 38.9 L RDW 19.1 H Plt Count 148 L Lymphocytes # 0.9 L Carbon Dioxide 19 L Glucose 106 H Alkaline Phosphatase 148 H - Diagnostic Findings Chest x-ray: image reviewed Assessment and Plan Assessment: Acute dyspnea, secondary to a combination of acute systolic congestive heart failure, recurrent right pleural effusion, and acute COPD exacerbation, Chest x- ray done on admission showing cardiomegaly, pulmonary vascular congestion, and a large right-sided pleural effusion. NT proBNP 3070 Recurrent large right-sided pleural effusion. Most recently drained September 07, 2024; a total of 1.7 L was removed. Previously sent for fluid analysis, and historically has been a transudative effusion. Fluid cytology previously negative for malignant cells. Coronary artery disease, with previous PCI/stenting and CABG over 20 years ago, subsequent two-vessel redo off-pump CABG April, Ischemic cardiomyopathy, most recent available echocardiogram from August, estimating a severely reduced left ventricular ejection fraction of 20 to 25%, as well as, monitor severe mitral regurgitation History of paroxysmal atrial fibrillation, currently sinus mechanism, anticoagulated on Eliquis History of hypertension History of hyperlipidemia History of left internal carotid artery stenosis, 50-79% Chronic anemia Former tobacco dependence Severe COPD , FEV1 43% of predicted Chronic hypoxemic respiratory failure, normally maintained on 4 L/min nasal cannula Obstructive sleep apnea Chronic back pain with history of back surgery Plan: Patient's medications, labs, imaging reviewed Patient currently on 3 L/min nasal cannula, appears distressed Add Lasix 40 mg twice daily Continue cardiac medications including Entresto, Farxiga, metoprolol Hold Eliquis, until decision is made whether we are going to proceed with a repeat right-sided thoracentesis Patient's COPD also appears active Start combination of bronchodilators, Symbicort inhaler, and IV Solu-Medrol Add azithromycin Obtain sputum sample Negative for influenza, RSV, COVID Will continue to follow, and further recommendations to follow I have personally seen and examined the patient, performed the documentation and the assessment and plan as written. Number of minutes spent on the visit:30 Sugar on the okay what is wrong joint evaluation that was done along with the nurse practitioner. This evaluation was done more than 30 minutes. This 69-year-old male patient presented to us with worsening shortness of breath. He has recurrent right-sided pleural effusion and he has undergone previous thoracentesis last 1 being on 09/07/2024 where a total of 1.7 L of fluid was removed. He is coming again with increased shortness of breath. He has CHF. EF is low under order of 20 to 25%. He has paroxysmal atrial fibrillation. He is currently off anticoagulants. He is also known to have severe COPD with an FEV1 of 43% of predicted. His chest x-ray shows a recurrent right-sided pleural effusion. The patient wants the pleural fluid to be drained as he is experienci ng shortness of breath. He is currently on 3 L of oxygen by nasal cannula. Will proceed with a bedside thoracentesis. Time with Patient: Greater than 30
[2024-10-18] MEDS: AZITHROMYCIN 500 MG TAB PO SCH (03:50)
[2024-10-18] MEDS: methylPREDNISolone SOD SUCCI 40 MG/ML 1 ML VIAL IV SCH (08:13)
[2024-10-18] MEDS: GABAPENTIN 100 MG CAP PO SCH (08:13)
[2024-10-18] MEDS: SPIRONOLACTONE 25 MG TAB PO SCH (08:13)
[2024-10-18] MEDS: DAPAGLIFLOZIN PROPANEDIOL 10 MG TABLET PO SCH (08:13)
[2024-10-18] MEDS: EZETIMIBE 10 MG TAB PO SCH (08:13)
[2024-10-18] MEDS: FUROSEMIDE 10 MG/ML 4 ML VIAL IV SCH (08:13)
[2024-10-18] MEDS: METOPROLOL SUCCINATE (ER) 25 MG TAB.ER.24H PO SCH (08:14)
[2024-10-18] MEDS: FERROUS SULFATE 325 MG TAB PO SCH (08:14)
[2024-10-18] MEDS: allopurinoL 100 MG TAB PO SCH (08:14)
[2024-10-18] MEDS: TAMSULOSIN 0.4 MG CAP.ER.24H PO SCH (08:14)
[2024-10-18] MEDS: SACUBITRIL/VALSARTAN 24 MG-26 MG TABLET PO SCH (08:14)
[2024-10-18] MEDS: IPRATROPIUM-ALBUTEROL 3 ML NEB INHALATION SCH (08:32)
[2024-10-18] MEDS: SYMBICORT 160-4.5 MCG INHALER INHALATION SCH (08:32)
[2024-10-18 08:49] LABS: Basophils # (A) 0.03 X 10*3/uL (0.00-0.10); Basophils % (A) 0.3 %; Eosinophils # (A) 0.15 X 10*3/uL (0.04-0.35); Eosinophils % (A) 1.6 %; HCT 38.7 % (39.6-50.0); HGB 11.7 g/dL (13.0-17.0); Lymphocytes # (A) 0.56 X 10*3/uL (0.90-5.00); Lymphocytes % (A) 6.1 %; MCH 24.5 pg (27.0-32.0); MCHC 30.2 g/dL (32.0-37.0); MCV 81.1 FL (80.0-97.0); Mean Platelet Volume 11.9 FL (9.5-12.2); Monocytes # (A) 0.88 X 10*3/uL (0.20-1.00); Monocytes % (A) 9.6 %; NRBC Per 100 WBC 0 X 10*3/uL (0.00-0.01); Neutrophils # (A) 7.52 X 10*3/uL (1.80-7.70); Neutrophils % (A) 82.1 %; Platelet Count 138 X 10*3/uL (140-440); RBC 4.77 X 10*6/uL (4.40-5.60); RDW 20.7 % (11.5-14.5); WBC 9.17 X 10*3/uL (4.50-10.00)
[2024-10-18 09:14] LABS: Blood Urea Nitrogen 13.9 mg/dL (9.0-27.0); Carbon Dioxide 23.8 mmol/L (21.6-31.8); Chloride 100 mmol/L (96-109); Glucose 90 mg/dL (70-110); Potassium 3.9 mmol/L (3.5-5.5); Sodium 136 mmol/L (135-145)
--- NOTE | 2024-10-18 10:13 | P.CRDCN ---
History of Present Illness History of present illness: HISTORY OF PRESENT ILLNESS: This is a 69-year-old male with a past medical history significant for coronary artery disease, congestive heart failure, ischemic cardiomyopathy, paroxysmal a trial fibrillation, hypertension, and hyperlipidemia. Patient follows in the office with Dr. Wiggins. We have been asked to see the patient in consultation for congestive heart failure. Patient examined at the bedside by Dr. Flood. Patient presented to the hospital due to shortness of breath. Patient currently denies chest pain or pressure. Patient was started on IV Lasix. DIAGNOSTICS: - EKG reveals sinus mechanism with no signs of acute ischemia - Chest xray correlate for congestive heart failure. Underlying infiltrate of other etiology not excluded. - Laboratory data: WBC 9.17. Hemoglobin 11.7. Platelet count 138. Sodium 136. Potassium 3.9. Troponin negative x 3. proBNP 3070. - Current home cardiac medications include Eliquis 5 mg twice a day, aspirin 81 mg daily, Farxiga 10 mg daily, Zetia 10 mg daily, metoprolol succinate 25 mg daily, Entresto 24-26 mg twice a day, Aldactone 12.5 mg daily - Most recent echocardiogram obtained in 09/06/2024 reveals EF 20 to 25%, apical and anterior apical distal anterior septal hypokinesis, moderate to severe MR, mild ARPatient examined at the bedside. [] REVIEW OF SYSTEMS: At the time of my exam: CONSTITUTIONAL: Denies fever or chills. HEENT: Denies blurred vision, vision changes, or eye pain. Denies hemoptysis CARDIOVASCULAR: Denies chest pain. Denies orthopnea. Denies PND. Denies palpitations RESPIRATORY: Denies shortness of breath. GASTROINTESTINAL: Denies abdominal pain. Denies nausea or vomiting. HEMATOLOGIC: Denies bleeding disorders. GENITOURINARY: Denies any blood in urine. SKIN: Denies pruitis. Denies rash. PHYSICAL EXAM: VITAL SIGNS: Reviewed. GENERAL: Well-developed in no acute distress. HEENT: Head is normocephalic. Pupils are equal, round. Sclerae anicteric. Mucous membranes of the mouth are moist. Neck supple. No JVD or thyromegaly LUNGS: Respirations even and unlabored. Lungs with expiratory wheezing noted. HEART: Regular rate and rhythm. S1 and S2 heard. ABDOMEN: Soft. Nondistended. Nontender. EXTREMITIES: Normal range of motion. No clubbing or cyanosis. Peripheral pulses intact. No lower extremity edema NEUROLOGIC: Awake and alert. Oriented x 3. ASSESSMENT: Shortness of breath Acute on chronic heart failure with reduced EF Coronary artery disease with previous CABG 20 years ago and redo CABG x 2, April 2024 Ischemic cardiomyopathy 20-25% History of bilateral pleural effusions History of multiple thoracentesis, most recent on 09/07/2024 right side Paroxysmal atrial fibrillation Hypertension Hyperlipidemia PLAN: No need to repeat echocardiogram as this was performed in August 2024 Resume home cardiac medications Continue IV Lasix Daily weights, accurate intake and output, and monitoring of kidney function Further recommendations pending patient course Nurse practitioner note has been reviewed by physician. Signing provider agrees with the documented findings, assessment, and plan of care documented by ENGAGEMENT MANAGER as a scribe. Past Medical History Past Medical History: Coronary Artery Disease (CAD), Chest Pain / Angina, Heart Failure, COPD, GERD/Reflux, Hyperlipidemia, Hypertension, Myocardial Infarction (PR), Osteoarthritis (OA), Sleep Apnea/CPAP/BIPAP Additional Past Medical History / Comment(s): Chronic back pain, left leg weakness. 4LNC. States unsure about having had a heart attack. RLS. Last Myocardial Infarction Date:: 11/11/22 History of Any Multi-Drug Resistant Organisms: None Reported Past Surgical History: Back Surgery, Cholecystectomy, Coronary Bypass/CABG, Heart Catheterization With Stent Additional Past Surgical History / Comment(s): Back surgery X2 with cage, left tennis elbow surgery, heart stents X7, colonoscopy. emergency CABG [facility] [place], thrombectomy. April Past Anesthesia/Blood Transfusion Reactions: No Reported Reaction Additional Past Anesthesia/Blood Transfusion Reaction / Comment(s): Pt received blood during CABG without reaction. Date of Last Stent Placement:: Oct 2022 Past Psychological History: Anxiety, Depression, PTSD Additional Psychological History / Comment(s): He ambulates with a cane. He drives. Smoking Status: Former smoker Past Alcohol Use History: None Reported Additional Past Alcohol Use History / Comment(s): Started smoking in 1967. No al cohol in 30+ yrs. Past Drug Use History: None Reported Additional Drug Use History / Comment(s): States no cocaine use for 30+ yrs. - Past Family History Father Family Medical History: Coronary Artery Disease (CAD), Deep Vein Thrombosis (DVT), GERD/Reflux, Hyperlipidemia, Myocardial Infarction (PR) Additional Family Medical History / Comment(s): Father of a PR in his 80's. Mother Family Medical History: Coronary Artery Disease (CAD), Myocardial Infarction (PR) Additional Family Medical History / Comment(s): Mother of a PR. Brother(s) Family Medical History: Myocardial Infarction (PR) Additional Family Medical History / Comment(s): . Sister(s) Family Medical History: Cancer, Diabetes Mellitus Additional Family Medical History / Comment(s): Lung cancer. Other sister had Diabetes. Medications and Allergies Home Medications Medication Instructions Recorded Confirmed Type Ezetimibe [Zetia] 10 mg PO DAILY #90 tab 11/18/22 10/17/24 Rx Fluticasone Nasal [place] [Flonase 1 spray EA NOSTRIL BID PRN 01/27/23 10/17/24 History Nasal [place]] Cyclobenzaprine [Flexeril] 10 mg PO BID 08/21/23 10/17/24 History Sodium Bicarbonate Tab 650 mg PO TID #100 tab 01/25/24 10/17/24 Rx Ergocalciferol [Vitamin D2 (1250 1,250 mcg PO Q14D 05/10/24 10/17/24 History Mcg = 06676 Iu)] Ferrous Sulfate [Iron (65 MG 325 mg PO DAILY 05/10/24 10/17/24 History Elemental)] Gabapentin [Neurontin] 100 mg PO TID 05/10/24 10/17/24 History Dapagliflozin Propanediol [Farxiga] 10 mg PO DAILY tab 05/24/24 10/17/24 Rx Ipratropium-Albuterol Nebulize 3 ml INHALATION RT-Q2H PRN each 05/24/24 10/17/24 Rx [Duoneb 0.5 mg-3 mg/3 ml Soln] ALPRAZolam [Xanax] 2 mg PO HS 07/27/24 10/17/24 History Albuterol Inhaler [Ventolin Hfa 2 puff INHALATION RT-Q6H PRN 09/05/24 10/17/24 History Inhaler] Aspirin EC [Ecotrin Low Dose] 81 mg PO DAILY 09/05/24 10/17/24 History Folic Acid 1 mg PO DAILY 09/05/24 10/17/24 History Omeprazole [PriLOSEC] 20 mg PO DAILY 09/05/24 10/17/24 History Tamsulosin [Flomax] 0.4 mg PO DAILY 09/05/24 10/17/24 History allopurinoL [Zyloprim] 100 mg PO DAILY 09/05/24 10/17/24 History rOPINIRole HCL [Requip] 0.25 mg PO HS 09/05/24 10/17/24 History Apixaban [Eliquis] 5 mg PO BID #60 tab 09/09/24 10/17/24 Rx Metoprolol Succinate (ER) [Toprol 25 mg PO DAILY 30 Days #30 tab 09/11/24 Rx XL] Sacubitril/Valsartan [Entresto 24 1 tab PO BID 09/25/24 10/17/24 History mg-26 mg Tablet] oxyCODONE-APAP 10-325MG [Percocet 1 tab PO Q4HR PRN 09/25/24 10/17/24 History 10-325 mg] Spironolactone [Aldactone] 12.5 mg PO DAILY 10/17/24 10/17/24 History Allergies Allergy/AdvReac Type Severity Reaction Status Date / Time latex Allergy Swelling Verified 10/17/24 16:43 atorvastatin [From Lipitor] AdvReac JOINT PAIN Verified 10/17/24 16:43 Physical Exam Vitals: Vital Signs Temp Pulse Pulse Resp BP BP Pulse Ox 10/18/24 08:45 80 10/18/24 08:34 84 10/18/24 07:00 98.8 F 66 16 116/68 99 10/18/24 02:00 95 19 110/71 97 10/17/24 21:57 85 19 105/66 94 L 10/17/24 21:45 98.2 F 85 16 120/76 97 10/17/24 19:47 98.3 F 88 20 123/73 99 10/17/24 19:38 20 10/17/24 19:14 20 10/17/24 18:39 80 18 118/60 100 10/17/24 17:01 82 10/17/24 16:53 76 10/17/24 15:08 98.4 F 77 18 114/69 98 10/17/24 13:24 97.9 F 74 18 138/77 96 Intake and Output 10/17/24 10/18/24 10/18/24 22:59 06:59 14:59 Intake Total 118 Output Total 1999 -1999 118 Intake: Oral 118 Output: Urine 1999 Other: Voiding Method Toilet Toilet Urinal Urinal # Voids 2 # Bowel Movements 0 Weight 72.575 kg 91.5 kg Results 10/18/24 04:38 10/18/24 04:38 Cardiac Enzymes 10/17/24 10/17/24 10/17/24 Range/Units 13:55 13:55 18:26 AST 20 (17-59) U/L Troponin I 0.013 0.017 (0.000-0.034) ng/mL 10/17/24 Range/Units 21:04 AST (17-59) U/L Troponin I 0.019 (0.000-0.034) ng/mL Coagulation 10/17/24 Range/Units 13:55 PT 11.1 (10.0-12.5) sec APTT 25.9 (22.0-30.0) sec CBC 10/17/24 10/18/24 Range/Units 13:55 04:38 WBC 7.2 9.17 (3.8-10.6) k/uL RBC 4.74 4.77 (4.30-5.90) m/uL Hgb 12.1 L 11.7 L (13.0-17.5) gm/dL Hct 38.9 L 38.7 L (39.0-53.0) % Plt Count 148 L 138 L (150-450) k/uL Comprehensive Metabolic Panel 10/17/24 10/18/24 Range/Units 13:55 04:38 Sodium 139 136 (137-145) mmol/L Potassium 4.0 3.9 (3.5-5.1) mmol/L Chloride 106 100 (98-107) mmol/L Carbon Dioxide 19 L 23.8 (22-30) mmol/L BUN 14 13.9 (9-20) mg/dL Creatinine 0.88 1.0 (0.66-1.25) mg/dL Glucose 106 H 90 (74-99) mg/dL Calcium 9.7 9.0 (8.4-10.2) mg/dL AST 20 (17-59) U/L ALT 12 (4-49) U/L Alkaline Phosphatase 148 H (38-126) U/L Total Protein 8.2 (6.3-8.2) g/dL Albumin 4.6 (3.5-5.0) g/dL Current Medications Generic Name Dose Route Start Last Admin Trade Name Freq PRN Reason Stop Dose Admin Albuterol/Ipratropium 3 ml 10/18/24 08:00 10/18/24 08:32 Ipratropium-Albuterol 3 Ml Neb INHALATION 3 ml RT-QID ELIANA Administration Albuterol/Ipratropium 3 ml 10/18/24 02:59 Ipratropium-Albuterol 3 Ml Neb INHALATION RT-Q4H PRN Shortness Of Breath Or Wheezing Allopurinol 100 mg 10/18/24 09:00 10/18/24 08:14 Allopurinol 100 Mg Tab PO 100 mg DAILY ELIANA Administration Alprazolam 0.25 mg 10/18/24 01:43 10/18/24 01:52 Alprazolam 0.25 Mg Tab PO 0.25 mg TID PRN Administration Anxiety Alprazolam 2 mg 10/18/24 21:00 Alprazolam 1 Mg Tab PO HS ELIANA Azithromycin 500 mg 10/18/24 03:24 10/18/24 08:13 Azithromycin 500 Mg Tab PO 10/19/24 09:01 500 mg DAILY ELIANA Administration Protocol Budesonide/Formoterol Fumarate 2 puff 10/18/24 08:00 10/18/24 08:32 Symbicort 160-4.5 Mcg Inhaler INHALATION 2 puff RT-BID ELIANA Administration Dapagliflozin 10 mg 10/18/24 09:00 10/18/24 08:13 Dapagliflozin Propanediol 10 Mg Tablet PO 10 mg DAILY ELIANA Administration Ezetimibe 10 mg 10/18/24 09:00 10/18/24 08:13 Ezetimibe 10 Mg Tab PO 10 mg DAILY ELIANA Administration Ferrous Sulfate 325 mg 10/18/24 09:00 10/18/24 08:14 Ferrous Sulfate 325 Mg Tab PO 325 mg DAILY ELIANA Administration Furosemide 40 mg 10/18/24 09:00 10/18/24 08:13 Furosemide 10 Mg/Ml 4 Ml Vial IV 40 mg Q12HR ELIANA Administration Gabapentin 100 mg 10/18/24 09:00 10/18/24 08:13 Gabapentin 100 Mg Cap PO 100 mg TID ELIANA Administration Methylprednisolone Sodium Succinate 40 mg 10/18/24 08:00 10/18/24 08:13 Methylprednisolone Sod Succi 40 Mg/Ml 1 Ml Vial IV 40 mg Q8HR ELIANA Administration Metoprolol Succinate 25 mg 10/18/24 09:00 10/18/24 08:14 Metoprolol Succinate (Er) 25 Mg Tab.Er.24h PO 25 mg DAILY ELIANA Administration Morphine Sulfate 4 mg 10/17/24 17:46 10/18/24 08:14 Morphine Sulfate 4 Mg/Ml Syringe IV 4 mg Q4HR PRN Administration Severe Pain (Scale 7 to 10) Naloxone HCl 0.2 mg 10/17/24 17:46 Naloxone 0.4 Mg/Ml 1 Ml Vial IV Q2M PRN Opioid Reversal Ropinirole HCl 0.25 mg 10/18/24 21:00 Ropinirole Hcl 0.25 Mg Tab PO HS [facility] Sacubitril/Valsartan 1 each 10/18/24 09:00 10/18/24 08:14 Sacubitril/Valsartan 24 Mg-26 Mg Tablet PO 1 each BID ELIANA Administration Spironolactone 12.5 mg 10/18/24 09:00 10/18/24 08:13 Spironolactone 25 Mg Tab PO 12.5 mg DAILY ELIANA Administration Tamsulosin HCl 0.4 mg 10/18/24 09:00 10/18/24 08:14 Tamsulosin 0.4 Mg Cap.Er.24h PO 0.4 mg DAILY ELIANA Administration Intake and Output 10/17/24 10/18/24 10/18/24 22:59 06:59 14:59 Intake Total 118 Output Total 1999 118 Intake: Oral 118 Output: Urine 1999 Other: Voiding Method Toilet Toilet Urinal Urinal # Voids 2 # Bowel Movements 0 Weight 72.575 kg 91.5 kg 10/18/24 04:38 10/18/24 04:38
--- NOTE | 2024-10-18 13:26 | P.PCN ---
Date of Procedure: 10/18/24 Preoperative Diagnosis: Effusion, right-sided Postoperative Diagnosis: Pleural effusion, right-sided Procedure(s) Performed: Thoracentesis, right-sided Anesthesia: local Surgeon: Katarina Wilson Estimated Blood Loss (ml): 0 Pathology: other Condition: stable Disposition: floor Operative Findings: A time out was performed and the chest x-ray was reviewed, the appropriate side was confirmed and marked. My hands were washed immediately prior to the procedure. I wore a surgical cap, mask with protective eyewear, sterile gown and sterile gloves throughout the procedure. The patient was prepped and draped in a sterile manner using chlorhexidine scrub after the appropriate level was percussed and confirmed by ultrasound. 1% lidocaine was used to anesthesize the skin, subcutaneous tissue, superior aspect of the rib periosteum and parietal pleura. A finder needle was then introduced over the superior aspect of the rib to locate the pleural fluid; 2colored fluid was aspirated at a depth of approximately 2 cm. A 10-blade scalpel was used to nanette the skin at the insertion site. The [id number] needle was then introduced through the skin incision into the pleural space using negative aspiration pressure and the red colometric indicator to confirm appropriate positioning of the needle. The thoracentesis catheter was then threaded without difficulty. 1500 mL ml of turbid colored fluid was removed without difficulty. The catheter was then removed. No immediate complications were noted during the procedure. A post- procedure chest x-ray is pending at the time of this note. The fluid will be sent for studies. Estimated blood loss is 0cc
--- NOTE | 2024-10-18 14:05 | XR ---
EXAMINATION TYPE: XR chest 1V DATE OF EXAM: 10/18/2024 1:41 PM COMPARISON: 10/17/2024 CLINICAL INDICATION: Male, 69 years old with history of post thoracentesis, TECHNIQUE: Single frontal view of the chest is obtained. FINDINGS: No evidence for right-sided pneumothorax. Pleural parenchymal opacity right lung base is im proved. There is cardiomegaly. Left lung is clear. IMPRESSION: No evidence for right-sided pneumothorax. [facility], , 10/18/2024 2:03 PM
[2024-10-18] MEDS ORDERED: oxyCODONE-APAP 10-325MG 1 EACH TAB PO PRN (15:31)
[2024-10-18] MEDS ORDERED: ALBUTEROL HFA INHALER INHALATION PRN (15:31)
[2024-10-18] MEDS: SODIUM BICARBONATE TAB 650 MG TAB PO SCH (17:20)
[2024-10-18 19:21] LABS: Glucose, BF Source Pleural Fluid; Glucose, Body Fluid 104 mg/dL; LDH, Body Fluid Source Pleural Fluid; T. Protein, Body Fluid Source Pleural Fluid; Total Protein, Body Fluid >3600 mg/dL
[2024-10-18] MEDS: ALPRAZolam 1 MG TAB PO SCH (20:35)
[2024-10-18] MEDS: APIXABAN 5 MG TAB PO SCH (20:35)
[2024-10-18] MEDS: CYCLOBENZAPRINE 10 MG TAB PO SCH (20:36)
[2024-10-18 21:42] LABS: Appearance,BF Clear (Clear)
--- NOTE | 2024-10-19 02:31 | HP ---
HISTORY AND PHYSICAL CHIEF COMPLAINT: Shortness of breath. HISTORY OF PRESENT ILLNESS: This is another of many admissions for this 69-year-old male with advanced coronary artery disease. He had had previous CABG and more recently had a second open-heart procedure, and now he is dealing with chronic congestive heart failure. He has been in and out of the emergency room lately with heart failure, chest pain, and a right pleural effusion. He came in at this time because he was acutely dyspneic. His picture was compatible with heart failure, cardiomegaly and cardiomyopathy, and right pleural effusion. REVIEW OF SYSTEMS: He has had no other complaints other than his shortness of breath. Past medical history, family history and personal and social histories reveal he is allergic to codeine, latex, and statins. MEDICATIONS: He takes his sodium bicarb, folic acid, Xanax, Farxiga, gabapentin, Isordil, Flomax, Flexeril, iron, allopurinol, ezetimibe, Ventolin, lisinopril, aspirin, Eliquis, metoprolol, and Nitrostat. Remainder of his history is unchanged from his recent admitting and discharge summaries. He still continues to smoke. He has always been a fairly noncompliant patient. PHYSICAL EXAMINATION: VITAL SIGNS: Normal. HEAD, EARS, EYES, NOSE, MOUTH AND THROAT: Normal. CHEST: Demonstrates poor breath sounds at the right base. There are scattered rales throughout the rest of the chest. CARDIAC: Exam is normal, except for an irregularly irregular pulse. ABDOMEN: Soft, nontender. EXTREMITIES: Normal. NEUROLOGIC: Intact. ASSESSMENT: He is admitted to the hospital with the diagnoses of: 1. Acute increase in heart rate. 2. Chronic congestive heart failure. 3. Advanced coronary artery disease status post 2 coronary artery bypass grafts. 4. Chronic obstructive pulmonary disease. 5. Right pleural effusion. PLAN: 1. Bedrest. 2. Serial EKGs and enzymes. 3. Diuresis. 4. Consult pulmonology. 5. Consult with interventional radiology. 6. Consult with Cardiology. MMODL / IJN: [id number] /
--- NOTE | 2024-10-19 03:43 | PN ---
PROGRESS NOTE CHIEF COMPLAINT: Acute on chronic congestive heart failure. HISTORY OF PRESENT ILLNESS: This gentleman is doing a bit better. Breathing is improved. He did undergo thoracentesis on the right. PHYSICAL EXAMINATION: LUNGS: Breath sounds are heard bilaterally. CARDIAC: Exam is normal. ABDOMEN: Soft, nontender. IMPRESSION: 1. Acute congestive heart failure. 2. Chronic congestive heart failure. 3. Atherosclerotic cardiomyopathy. 4. Right pleural effusion. 5. Chronic obstructive pulmonary disease. PLAN: Progress activity and follow overnight. He may be able to go home tomorrow. MMODL / IJN: [id number] /
[2024-10-19] MEDS: ASPIRIN 81 MG PO SCH (09:46)
[2024-10-19] MEDS: PANTOPRAZOLE 40 MG TABLET PO SCH (09:47)
[2024-10-19] MEDS: FOLIC ACID 1 MG TAB PO SCH (09:47)
[2024-10-19 11:00] LABS: BUN/Creat Ratio 15.04 Ratio (12.00-20.00); Blood Urea Nitrogen 34.6 mg/dL (9.0-27.0); Calcium 9.3 mg/dL (8.7-10.3); Carbon Dioxide 22.7 mmol/L (21.6-31.8); Chloride 98 mmol/L (96-109); Glucose 146 mg/dL (70-110); Potassium 4.8 mmol/L (3.5-5.5); Sodium 135 mmol/L (135-145)
--- NOTE | 2024-10-19 11:09 | P.PN ---
Subjective Progress Note Date: 10/19/24 HISTORY OF PRESENT ILLNESS: This is a 69-year-old male with a past medical history significant for coronary artery disease, congestive heart failure, ischemic cardiomyopathy, paroxysmal atrial fibrillation, hypertension, and hyperlipidemia. Patient follows in the office with Dr. Wiggins. We have been asked to see the patient in consultation for congestive heart failure. Patient examined at the bedside by Dr. Flood. Patient presented to the hospital due to shortness of breath. Patient currently denies chest pain or pressure. Patient was started on IV Lasix. DIAGNOSTICS: - EKG reveals sinus mechanism with no signs of acute ischemia - Chest xray correlate for congestive heart failure. Underlying infiltrate of other etiology not excluded. - Laboratory data: WBC 9.17. Hemoglobin 11.7. Platelet count 138. Sodium 136. Potassium 3.9. Troponin negative x 3. proBNP 3070. - Current home cardiac medications include Eliquis 5 mg twice a day, aspirin 81 mg daily, Farxiga 10 mg daily, Zetia 10 mg daily, metoprolol succinate 25 mg daily, Entresto 24-26 mg twice a day, Aldactone 12.5 mg daily - Most recent echocardiogram obtained in 09/06/2024 reveals EF 20 to 25%, apical and anterior apical distal anterior septal hypokinesis, moderate to severe MR, mild ARPatient examined at the bedside. Progress note 10/19/2024 Patient still has elevated JVP, mild crackles in the lung, Blood pressure is low normal, SBP around 88, patient is reporting that he is very weak, if feeling lightheaded and is feeling very cold. REVIEW OF SYSTEMS: At the time of my exam: CONSTITUTIONAL: Denies fever or chills. HEENT: Denies blurred vision, vision changes, or eye pain. Denies hemoptysis CARDIOVASCULAR: Denies chest pain. Denies orthopnea. Denies PND. Denies palpitations RESPIRATORY: Denies shortness of breath. GASTROINTESTINAL: Denies abdominal pain. Denies nausea or vomiting. HEMATOLOGIC: Denies bleeding disorders. GENITOURINARY: Denies any blood in urine. SKIN: Denies pruitis. Denies rash. PHYSICAL EXAM: VITAL SIGNS: Reviewed. GENERAL: Well-developed in no acute distress. HEENT: Head is normocephalic. Pupils are equal, round. Sclerae anicteric. Mucous membranes of the mouth are moist. Neck supple. No JVD or thyromegaly LUNGS: Respirations even and unlabored. Lungs with expiratory wheezing noted. HEART: Regular rate and rhythm. S1 and S2 heard. ABDOMEN: Soft. Nondistended. Nontender. EXTREMITIES: Normal range of motion. No clubbing or cyanosis. Peripheral pulses intact. No lower extremity edema NEUROLOGIC: Awake and alert. Oriented x 3. ASSESSMENT: Shortness of breath Acute on chronic heart failure with reduced EF Coronary artery disease with previous CABG 20 years ago and redo CABG x 2, April 2024 Ischemic cardiomyopathy 20-25% History of bilateral pleural effusions History of multiple thoracentesis, most recent on 09/07/2024 right side Paroxysmal atrial fibrillation Hypertension Hyperlipidemia PLAN: Continue Lasix 40 mg IV twice daily, Aldactone 12.5 mg daily, Entresto 24/26 mg twice daily Continue metoprolol succinate 25 mg daily. Heart rate is at goal I anticipate that patient might have some adrenal insufficiency going on and he should get evaluated for that. Would request primary team provider to help me out with this. Objective - Vital Signs Vital signs: Vital Signs Temp 98.1 F 10/19/24 07:00 Pulse 63 10/19/24 08:58 Resp 17 10/19/24 08:00 BP 84/43 10/19/24 10:14 Pulse Ox 94 L 10/19/24 07:00 FiO2 Intake & Output 10/18/24 10/19/24 10/19/24 18:59 06:59 18:59 Intake Total 118 Output Total 200 Balance -82 Weight 90.5 kg Intake: Oral 118 Output: Urine 200 Other: Voiding Method Toilet Toilet Urinal Urinal - Labs CBC & Chem 7: 10/18/24 04:38 10/19/24 05:42 Labs: Abnormal Lab Results - Last 24 Hours (Table) 10/19/24 Range/Units 05:42 Anion Gap 14.30 H (4.00-12.00) mmol/L BUN 34.6 H (9.0-27.0) mg/dL Creatinine 2.3 H (0.6-1.5) mg/dL Est GFR (CKD-EPI) 30 L (>=60) Glucose 146 H (70-110) mg/dL Microbiology - Last 24 Hours (Table) 10/18/24 08:45 Gram Stain - Preliminary Sputum
--- NOTE | 2024-10-19 15:07 | P.PN ---
Subjective Progress Note Date: 10/19/24 Patient is a 69-year-old male with past medical history significant for coronary artery disease status post PCI/stenting and CABG. Patient's original CABG was over 20 years ago, more recently had a two-vessel redo off-pump CABG April,. Also, he has severe ischemic cardiomyopathy with ejection fraction of 20 to 25%, recurrent right-sided pleural effusion requiring frequent thoracentesis, hypertension, hyperlipidemia, A-fib, left carotid artery stenosis, chronic oxygen dependence on 4 L/min nasal cannula while at home, COPD, former tobacco dependence. He is known to have recurrent right-sided pleural effusion, requiring multiple previous thoracentesis. Most recently drained September 07, 2024. Was total of 1.7 L of fluid was removed. Previously sent for fluid analysis, this has been a transudative effusion in the past. Fluid cytology previously negative for malignant cells. He is not familiar with his home medications. States he is not on any Lasix or Bumex at this time. Aldactone is listed in his home medications. Patient's most recent echocardiogram done August, showing a severely reduced left ventricular ejection fraction of 20 to 25%, as well as, moderate to severe mitral regurgitation. He is on a combination of Entresto, Farxiga, metoprolol, among other things. He is chronically anticoagulated on Eliquis. Patient presented to emergency department yesterday afternoon complaining mostly of extreme shortness of breath. Over the last 2 to 3 days he has had a productive cough with copious amounts of yellow to green sputum. Does report history of COPD. No longer smokes. Denies any fevers, chills, chest pain, hemoptysis. Unrelated, he is complaining of some lumbar level back pain, which he states is chronic. No weakness in the lower extremities or saddle anesthesia or loss of bowel or bladder control. Chest x-ray done on admission showing cardiomegaly, pulmonary vascular congestion, and a large right-sided pleural effusion. CBC: WBC count 7.2, hemoglobin 12.1, hematocrit 38.9, platelets 148. CMP is unremarkable. Electrolytes WDL. Glucose 106. LFTs unremarkable. Troponins 0.013, 0.017, and 0.019. NT proBNP elevated at 3070. EKG: Normal sinus rhythm, rate 80 bpm, chronic T wave inversions in 1, aVL, V5 V6; 2, aVF. Negative for influenza, RSV, COVID. Patient is currently being evaluated on the cardiac observation unit. He is tachypneic. Speaking in short phrases. He is on 3 L/min nasal cannula. He did receive 1 dose of Lasix earlier. On 10/19/2024, the patient continues to have shortness of breath. Limited improvement postthoracentesis. A total of 1.5 L of pleural fluid was aspirated and the pleural fluid was a exudate based on protein criteria. He is currently on room air oxygen. He remains on Lasix 40 mg every 12 hours. Fluid balance is negative. Labs from today shows a BUN of 34 with a creatinine of 2.3. Sodium levels at 135. He remains on anticoagulation and anticoagulation was resumed 5 mg p.o. twice a day. He remains on bronchodilators. Remains on steroids. He remains on Entresto and Aldactone. Remains on Farxiga. Objective - Vital Signs Vital signs: Vital Signs Temp 98.1 F 10/19/24 07:00 Pulse 63 10/19/24 08:58 Resp 17 10/19/24 08:00 BP 84/43 10/19/24 10:14 Pulse Ox 94 L 10/19/24 07:00 FiO2 Intake & Output 10/18/24 10/19/24 10/19/24 18:59 06:59 18:59 Intake Total 118 Output Total 200 Balance -82 Weight 90.5 kg Intake: Oral 118 Output: Urine 200 Other: Voiding Method Toilet Toilet Urinal Urinal - Exam GENERAL EXAM: Alert, 69-year-old male, attempting to sit up in bed, HEAD: Normocephalic and atraumatic EYES: Normal reaction of pupils, equal size. NOSE: Clear with pink turbinates. THROAT: No erythema or exudates. NECK: No masses, no JVD. CHEST: No chest wall deformity. Remote appearing sternotomy incision approximated and pink LUNGS: Equal air entry with diminished right lower lung sounds. Scattered wheezing and rhonchi. On 3 L/min nasal cannula. Tachypneic. Speaks in short phrases and appears dyspneic CVS: S1 and S2 normal with systolic murmur, regular rhythm. No other extra heart sounds ABDOMEN: No hepatosplenomegaly, active bowel sounds, no guarding or rigidity. SPINE: No scoliosis or deformity SKIN: No rashes CENTRAL NERVOUS SYSTEM: No focal deficits, tone is normal in all 4 extremities. EXTREMITIES: There is no peripheral edema, clubbing, or cyanosis. Peripheral pulses are intact. - Labs CBC & Chem 7: 10/18/24 04:38 10/19/24 05:42 Labs: Abnormal Lab Results - Last 24 Hours (Table) 10/19/24 Range/Units 05:42 Anion Gap 14.30 H (4.00-12.00) mmol/L BUN 34.6 H (9.0-27.0) mg/dL Creatinine 2.3 H (0.6-1.5) mg/dL Est GFR (CKD-EPI) 30 L (>=60) Glucose 146 H (70-110) mg/dL Microbiology - Last 24 Hours (Table) 10/18/24 08:45 Gram Stain - Preliminary Sputum Assessment and Plan Assessment: Acute dyspnea, secondary to a combination of acute systolic congestive heart failure, recurrent right pleural effusion, and acute COPD exacerbation, Chest x- ray done on admission showing cardiomegaly, pulmonary vascular congestion, and a large right-sided pleural effusion. NT proBNP 3070 Recurrent large right-sided pleural effusion. Most recently drained September 07, 2024; a total of 1.7 L was removed. Previously sent for fluid analysis, and historically has been a transudative effusion. Fluid cytology previously negative for malignant cells. Coronary artery disease, with previous PCI/stenting and CABG over 20 years ago, subsequent two-vessel redo off-pump CABG April, Ischemic cardiomyopathy, most recent available echocardiogram from August, estimating a severely reduced left ventricular ejection fraction of 20 to 25%, as well as, monitor severe mitral regurgitation Acute kidney injury, likely secondary to diuretics and cardiorenal factors. History of paroxysmal atrial fibrillation, currently sinus mechanism, anticoagulated on Eliquis History of hypertension History of hyperlipidemia History of left internal carotid artery stenosis, 50-79% Chronic anemia Former tobacco dependence Severe COPD , FEV1 43% of predicted Chronic hypoxemic respiratory failure, normally maintained on 4 L/min nasal cannula Obstructive sleep apnea Chronic back pain with history of back surgery Plan: Thoracentesis of the right lung was done with a total of 1.7 L of pleural fluid today illuminated Continues to be short of breath May benefit from Pleurx catheter insertion as the patient likely has a trapped lung in the right and he will continue to have recurrent right-sided pleural effusions Stop Lasix as the patient has developed an acute kidney injury Family Medicine Physician Assistant on the case Continue anticoagulation with Eliquis Continue optimizing his COPD Continue combination of bronchodilators, Symbicort inhaler, and IV Solu-Medrol Zithromax Obtain sputum sample Negative for influenza, RSV, COVID Will continue to follow, and further recommendations to follow
[2024-10-19] MEDS: LIDOCAINE 4% PATCH TOPICAL SCH (16:15)
--- NOTE | 2024-10-20 01:25 | PN ---
PROGRESS NOTE DATE OF SERVICE: 10/19/2024 CHIEF COMPLAINT: Acute congestive heart failure. HISTORY OF PRESENT ILLNESS: This gentleman remains quite short of breath even though 1.7 L was removed from the right hemithorax. PHYSICAL EXAMINATION: LUNGS: Breath sounds are diminished. CARDIAC: Unchanged with atrial fibrillation. He is hypotensive. ABDOMEN: Soft, nontender. IMPRESSION: 1. [id number] congestive heart failure. 2. Atherosclerotic cardiomyopathy. 3. Chronic obstructive pulmonary disease. 4. Right pleural effusion. 5. Atrial fibrillation. 6. Rising BUN and creatinine consistent with cardiorenal syndrome. PLAN: Nephrology consult and continue to follow with regard to his heart failure and effusion. MMODL / IJN: [id number] /
[2024-10-20 04:18] LABS: African American GFR (CKD) 18 (>60 ml/min/1.73 sqM); Anion Gap 9 mmol/L; Blood Urea Nitrogen 60 mg/dL (9-20); Calcium 8.7 mg/dL (8.4-10.2); Carbon Dioxide 23 mmol/L (22-30); Chloride 100 mmol/L (98-107); Glucose 148 mg/dL (74-99); Non-African American GFR(CKD) 15 (>60 ml/min/1.73 sqM); Potassium 4.7 mmol/L (3.5-5.1); Sodium 132 mmol/L (137-145)
--- NOTE | 2024-10-20 10:17 | P.NPCON ---
History of Present Illness - Reason for Consult acute renal failure - History of Present Illness Reason for consultation: Acute kidney injury History of present illness: Patient is a 69-year-old male seen in renal consultation for acute kidney injury. Patient came in the hospital due to chest pain tightness going on for about 2 days. Patient describes the pain as sharp pain across the chest. He has been seen by cardiology this admission. Patient has extensive cardiac history including CABG 20 years ago and redo CABG in April 2024. Echocardiogram showed ejection fraction of 20 to 25% with moderate to severe mitral vegetation. He also underwent right-sided thoracentesis this admission with 1.5 L drained. He has been receiving IV Lasix, SGLT2 inhibitor as well as Entresto and Aldactone. Creatinine was 1 admission and is up to 3.8 today. He has been voiding. Denies gross hematuria or dysuria. Denies fever or chills. He is now on room air. Denies any active chest pain or shortness of breath. Denies use of nonsteroidals. Denies history of diabetes. Vital signs are stable. General: The p no acute distress. HEENT: Head exam is unremarkable. On room air. LUNGS: No audible rhonchi or wheezes. HEART: Rate and Rhythm are regular. ABDOMEN: Nontender. EXTREMITITES: No edema. Past Medical History Past Medical History: Coronary Artery Disease (CAD), Chest Pain / Angina, Heart Failure, COPD, GERD/Reflux, Hyperlipidemia, Hypertension, Myocardial Infarction ([place]), Osteoarthritis (OA), Sleep Apnea/CPAP/BIPAP Additional Past Medical History / Comment(s): Chronic back pain, left leg weakness. 4LNC. States unsure about having had a heart attack. RLS. Last Myocardial Infarction Date:: 11/11/22 History of Any Multi-Drug Resistant Organisms: None Reported Past Surgical History: Back Surgery, Cholecystectomy, Coronary Bypass/CABG, Heart Catheterization With Stent Additional Past Surgical History / Comment(s): Back surgery X2 with cage, left tennis elbow surgery, heart stents X7, colonoscopy. emergency CABG [facility], thrombectomy. April Bypass Past Anesthesia/Blood Transfusion Reactions: No Reported Reaction Additional Past Anesthesia/Blood Transfusion Reaction / Comment(s): Pt received blood during CABG without reaction. Date of Last Stent Placement:: Oct 2022 Past Psychological History: Anxiety, Depression, PTSD Additional Psychological History / Comment(s): He ambulates with a cane. He drives. Smoking Status: Former smoker Past Alcohol Use History: None Reported Additional Past Alcohol Use History / Comment(s): Started smoking in 1967. No alcohol in 30+ yrs. Past Drug Use History: None Reported Additional Drug Use History / Comment(s): States no cocaine use for 30+ yrs. - Past Family History Father Family Medical History: Coronary Artery Disease (CAD), Deep Vein Thrombosis (DVT), GERD/Reflux, Hyperlipidemia, Myocardial Infarction ([place]) Additional Family Medical History / Comment(s): Father of a [place] in his 80's. Mother Family Medical History: Coronary Artery Disease (CAD), Myocardial Infarction ([place]) Additional Family Medical History / Comment(s): Mother of a [place]. Brother(s) Family Medical History: Myocardial Infarction ([place]) Additional Family Medical History / Comment(s): . Sister(s) Family Medical History: Cancer, Diabetes Mellitus Additional Family Medical History / Comment(s): Lung cancer. Other sister had Diabetes. Medications and Allergies Home Medications Medication Instructions Recorded Confirmed Type Ezetimibe [Zetia] 10 mg PO DAILY #90 tab 11/18/22 10/17/24 Rx Fluticasone Nasal [place] [Flonase 1 spray EA NOSTRIL BID PRN 01/27/23 10/17/24 History Nasal [place]] Cyclobenzaprine [Flexeril] 10 mg PO BID 08/21/23 10/17/24 History Sodium Bicarbonate Tab 650 mg PO TID #100 tab 01/25/24 10/17/24 Rx Ergocalciferol [Vitamin D2 (1250 1,250 mcg PO Q14D 05/10/24 10/17/24 History Mcg = 02100 Iu)] Ferrous Sulfate [Iron (65 MG 325 mg PO DAILY 05/10/24 10/17/24 History Elemental)] Gabapentin [Neurontin] 100 mg PO TID 05/10/24 10/17/24 History Dapagliflozin Propanediol [Farxiga] 10 mg PO DAILY tab 05/24/24 10/17/24 Rx Ipratropium-Albuterol Nebulize 3 ml INHALATION RT-Q2H PRN each 05/24/24 10/17/24 Rx [Duoneb 0.5 mg-3 mg/3 ml Soln] ALPRAZolam [Xanax] 2 mg PO HS 07/27/24 10/17/24 History Albuterol Inhaler [Ventolin Hfa 2 puff INHALATION RT-Q6H PRN 09/05/24 10/17/24 History Inhaler] Aspirin EC [Ecotrin Low Dose] 81 mg PO DAILY 09/05/24 10/17/24 History Folic Acid 1 mg PO DAILY 09/05/24 10/17/24 History Omeprazole [PriLOSEC] 20 mg PO DAILY 09/05/24 10/17/24 History Tamsulosin [Flomax] 0.4 mg PO DAILY 09/05/24 10/17/24 History allopurinoL [Zyloprim] 100 mg PO DAILY 09/05/24 10/17/24 History rOPINIRole HCL [Requip] 0.25 mg PO HS 09/05/24 10/17/24 History Apixaban [Eliquis] 5 mg PO BID #60 tab 09/09/24 10/17/24 Rx Metoprolol Succinate (ER) [Toprol 25 mg PO DAILY 30 Days #30 tab 09/11/24 10/17/24 Rx XL] Sacubitril/Valsartan [Entresto 24 1 tab PO BID 09/25/24 10/17/24 History mg-26 mg Tablet] oxyCODONE-APAP 10-325MG [Percocet 1 tab PO Q4HR PRN 09/25/24 10/17/24 History 10-325 mg] Spironolactone [Aldactone] 12.5 mg PO DAILY 10/17/24 10/17/24 History Allergies Allergy/AdvReac Type Severity Reaction Status Date / Time latex Allergy Swelling Verified 10/17/24 16:43 atorvastatin [From Lipitor] AdvReac JOINT PAIN Verified 10/17/24 16:43 Physical Exam Vitals: Vital Signs Temp Pulse Pulse Resp BP Pulse Ox 10/20/24 08:41 75 10/20/24 08:30 74 10/20/24 07:00 97.6 F 83 17 93/50 97 10/20/24 02:00 97.6 F 87 17 83/43 94 L 10/19/24 20:57 72 10/19/24 20:45 75 10/19/24 19:43 98.7 F 97 17 106/68 96 10/19/24 17:06 91/52 10/19/24 16:53 68 10/19/24 16:44 65 10/19/24 14:57 97.7 F 66 16 93/51 96 10/19/24 12:40 67 10/19/24 12:28 65 10/19/24 12:21 104/58 10/19/24 10:14 84/43 Intake and Output 10/19/24 10/20/24 10/20/24 22:59 06:59 14:59 Intake Total 540 Balance 540 Intake: Oral 540 Other: Voiding Method Toilet Toilet Urinal Urinal Weight 92.5 kg Results - Lab Results Most recent lab results Calcium 8.7 mg/dL (8.4-10.2) 10/20/24 03:46 Magnesium 2.0 mg/dL (1.6-2.3) 10/20/24 03:46 10/18/24 04:38 10/20/24 03:46 Assessment and Plan Plan: Assessment: 1. Acute kidney injury secondary to ATN. Baseline creatinine near 103.8 today. 2. Acute on chronic systolic CHF ejection fraction of 20 to 25% with moderate to severe mitral regurgitation. 3. Coronary disease status post CABG several years ago and redo CABG in April 2024. 4. Fluid overload. Improved. Status post right-sided thoracentesis with 1.5 L drained October 18, 2024. 5. Metabolic acidosis secondary to acute kidney injury maintained on oral bicarb. Better. Plan: Lasix stopped yesterday. Hold SGLT2 inhibitor and Aldactone. Both were given this morning. Add normal saline at 50 cc an hour. Check chest x-ray. Check UA. Check bladder scan to rule out urinary retention. Check renal ultrasound. Continue to monitor renal function and urine output. Thank you for the consultation. I will continue to follow the patient with you during his hospital stay.
[2024-10-20] MEDS: SODIUM CHLORIDE 0.9% 1,000 ML IV SCH (11:09)
--- NOTE | 2024-10-20 12:08 | US ---
EXAMINATION TYPE: US kidneys/renal and bladder DATE OF EXAM: 10/20/2024 COMPARISON: NONE CLINICAL INDICATION: Male, 69 years old with history of parish; PAR[place] exam limitations due to bowel gas. TECHNIQUE: Grayscale imaging of the bilateral kidneys and urinary bladder: FINDINGS: EXAM MEASUREMENTS: Right Kidney: 9.5 x 4.2 x 4.1 cm Left Kidney: 10.2 x 5.5 x 4.2 cm Right Kidney: No hydronephrosis or masses seen Left Kidney: No hydronephrosis or masses seen Bladder: Anechoic Bilateral Jets seen: no There is no evidence for hydronephrosis at this point in time. No nephrolithiasis is seen. No jackson s are identified. The urinary bladder is anechoic. Pleural effusion is visualized on the right. IMPRESSION: No evidence for obstructive uropathy. No renal calculi. [facility], , 10/20/2024 12:06 PM
--- NOTE | 2024-10-20 12:35 | XR ---
EXAMINATION TYPE: XR chest 1V DATE OF EXAM: 10/20/2024 11:53 AM COMPARISON: Chest radiographs from 10/18/2024. CLINICAL INDICATION: Male, 69 years old with history of sob; TECHNIQUE: XR chest 1V Frontal view of the chest. FINDINGS: Lungs/Pleura: Small moderate right pleural effusion There is no evidence of left pleural effusion, fo neda consolidation, or pneumothorax. Pulmonary vascularity: Unremarkable. Heart/mediastinum: Cardiomediastinal silhouette is enlarged. Musculoskeletal: No acute osseous pathology. Midline sternotomy wires are noted. IMPRESSION: Cardiomegaly with small to moderate right pleural effusion. Correlate serum BNP [facility], , 10/20/2024 12:33 PM
--- NOTE | 2024-10-20 13:13 | P.PN ---
Subjective Progress Note Date: 10/20/24 Patient is a 69-year-old male with past medical history significant for coronary artery disease status post PCI/stenting and CABG. Patient's original CABG was over 20 years ago, more recently had a two-vessel redo off-pump CABG April,. Also, he has severe ischemic cardiomyopathy with ejection fraction of 20 to 25%, recurrent right-sided pleural effusion requiring frequent thoracentesis, hypertension, hyperlipidemia, A-fib, left carotid artery stenosis, chronic oxygen dependence on 4 L/min nasal cannula while at home, COPD, former tobacco dependence. He is known to have recurrent right-sided pleural effusion, requiring multiple previous thoracentesis. Most recently drained September 07, 2024. Was total of 1.7 L of fluid was removed. Previously sent for fluid analysis, this has been a transudative effusion in the past. Fluid cytology previously negative for malignant cells. He is not familiar with his home medications. States he is not on any Lasix or Bumex at this time. Aldactone is listed in his home medications. Patient's most recent echocardiogram done August, showing a severely reduced left ventricular ejection fraction of 20 to 25%, as well as, moderate to severe mitral regurgitation. He is on a combination of Entresto, Farxiga, metoprolol, among other things. He is chronically anticoagulated on Eliquis. Patient presented to emergency department yesterday afternoon complaining mostly of extreme shortness of breath. Over the last 2 to 3 days he has had a productive cough with copious amounts of yellow to green sputum. Does report history of COPD. No longer smokes. Denies any fevers, chills, chest pain, hemoptysis. Unrelated, he is complaining of some lumbar level back pain, which he states is chronic. No weakness in the lower extremities or saddle anesthesia or loss of bowel or bladder control. Chest x-ray done on admission showing cardiomegaly, pulmonary vascular congestion, and a large right-sided pleural effusion. CBC: WBC count 7.2, hemoglobin 12.1, hematocrit 38.9, platelets 148. CMP is unremarkable. Electrolytes WDL. Glucose 106. LFTs unremarkable. Troponins 0.013, 0.017, and 0.019. NT proBNP elevated at 3070. EKG: Normal sinus rhythm, rate 80 bpm, chronic T wave inversions in 1, aVL, V5 V6; 2, aVF. Negative for influenza, RSV, COVID. Patient is currently being evaluated on the cardiac observation unit. He is tachypneic. Speaking in short phrases. He is on 3 L/min nasal cannula. He did receive 1 dose of Lasix earlier. On 10/19/2024, the patient continues to have shortness of breath. Limited improvement postthoracentesis. A total of 1.5 L of pleural fluid was aspirated and the pleural fluid was a exudate based on protein criteria. He is currently on room air oxygen. He remains on Lasix 40 mg every 12 hours. Fluid balance is negative. Labs from today shows a BUN of 34 with a creatinine of 2.3. Sodium levels at 135. He remains on anticoagulation and anticoagulation was resumed 5 mg p.o. twice a day. He remains on bronchodilators. Remains on steroids. He remains on Entresto and Aldactone. Remains on Farxiga. On 10/20/2024, the patient is experiencing an acute kidney injury and nephrology has been consulted on the case. Is resting comfortably in bed and is currently on 2 L with a pulse ox of 97%. He is still producing urine output and the patient is nonoliguric. The patient was seen by nephrology. Diuretics have been discontinued. He is Aldactone has been discontinued. Farxiga has been discontinued. He is receiving normal saline at rate of 50 cc an hour. Blood work from today shows a BUN of 60 with a creatinine of 3.8 and sodium levels at 132. No other issues otherwise for now. No chest pain. Continues to have some mild shortness of breath. Objective - Vital Signs Vital signs: Vital Signs Temp 97.6 F 10/20/24 07:00 Pulse 75 10/20/24 08:41 Resp 17 10/20/24 07:00 BP 93/50 10/20/24 07:00 Pulse Ox 97 10/20/24 07:00 FiO2 Intake & Output 10/19/24 10/20/24 10/20/24 18:59 06:59 18:59 Intake Total 658 Balance 658 Weight 92.5 kg Intake: Oral 658 Other: Voiding Method Toilet Urinal - Exam GENERAL EXAM: Alert, 69-year-old male, attempting to sit up in bed, HEAD: Normocephalic and atraumatic EYES: Normal reaction of pupils, equal size. NOSE: Clear with pink turbinates. THROAT: No erythema or exudates. NECK: No masses, no JVD. CHEST: No chest wall deformity. Remote appearing sternotomy incision approximated and pink LUNGS: Equal air entry with diminished right lower lung sounds. Scattered wheezing and rhonchi. On 3 L/min nasal cannula. Tachypneic. Speaks in short phrases and appears dyspneic CVS: S1 and S2 normal with systolic murmur, regular rhythm. No other extra heart sounds ABDOMEN: No hepatosplenomegaly, active bowel sounds, no guarding or rigidity. SPINE: No scoliosis or deformity SKIN: No rashes CENTRAL NERVOUS SYSTEM: No focal deficits, tone is normal in all 4 extremities. EXTREMITIES: There is no peripheral edema, clubbing, or cyanosis. Peripheral pulses are intact. - Labs CBC & Chem 7: 10/18/24 04:38 10/20/24 03:46 Labs: Abnormal Lab Results - Last 24 Hours (Table) 10/19/24 10/20/24 Range/Units 05:42 03:46 Sodium 132 L (137-145) mmol/L Anion Gap 14.30 H (4.00-12.00) mmol/L BUN 34.6 H 60 H (9.0-27.0) mg/dL Creatinine 2.3 H 3.81 H (0.6-1.5) mg/dL Est GFR (CKD-EPI) 30 L (>=60) Glucose 146 H 148 H (70-110) mg/dL Microbiology - Last 24 Hours (Table) 10/18/24 08:45 Gram Stain - Preliminary Sputum Sputum Culture - Preliminary Assessment and Plan Assessment: Acute dyspnea, secondary to a combination of acute systolic congestive heart failure, recurrent right pleural effusion, and acute COPD exacerbation, Chest x- ray done on admission showing cardiomegaly, pulmonary vascular congestion, and a large right-sided pleural effusion. NT proBNP 3070 Recurrent large right-sided pleural effusion. Most recently drained September 07, 2024; a total of 1.7 L was removed. Previously sent for fluid analysis, and historically has been a transudative effusion. Fluid cytology previously negative for malignant cells. Coronary artery disease, with previous PCI/stenting and CABG over 20 years ago, subsequent two-vessel redo off-pump CABG April, Ischemic cardiomyopathy, most recent available echocardiogram from August, estimating a severely reduced left ventricular ejection fraction of 20 to 25%, as well as, monitor severe mitral regurgitation Acute kidney injury, likely secondary to diuretics and cardiorenal factors. History of paroxysmal atrial fibrillation, currently sinus mechanism, anticoagulated on Eliquis History of hypertension History of hyperlipidemia History of left internal carotid artery stenosis, 50-79% Chronic anemia Former tobacco dependence Severe COPD , FEV1 43% of predicted Chronic hypoxemic respiratory failure, normally maintained on 4 L/min nasal cannula Obstructive sleep apnea Chronic back pain with history of back surgery Plan: Patient is nonoliguric Monitor renal function Lasix Aldactone and Farxiga has been discontinued Thoracentesis of the right lung was done with a total of 1.7 L of pleural fluid today illuminated Continues to be short of breath May benefit from Pleurx catheter insertion as the patient likely has a trapped lung in the right and he will continue to have recurrent right-sided pleural effusions Home Paraprofessional on the case Continue anticoagulation with Eliquis, dose may need to be modified Continue optimizing his COPD Continue combination of bronchodilators, Symbicort inhaler, and IV Solu-Medrol Zithromax Obtain sputum sample Negative for influenza, RSV, COVID Will continue to follow, and further recommendations to follow
[2024-10-20] MEDS: ONDANSETRON 4 MG/2 ML VIAL IVP STA (16:13)
[2024-10-20] MEDS: MIDODRINE 5 MG TAB PO SCH (20:51)
--- NOTE | 2024-10-20 22:21 | P.PN ---
Subjective Progress Note Date: 10/20/24 HISTORY OF PRESENT ILLNESS: This is a 69-year-old male with a past medical history significant for coronary artery disease, congestive heart failure, ischemic cardiomyopathy, paroxysmal atrial fibrillation, hypertension, and hyperlipidemia. Patient follows in the office with Dr. Wiggins. We have been asked to see the patient in consultation for congestive heart failure. Patient examined at the bedside by Dr. Flood. Patient presented to the hospital due to shortness of breath. Patient currently denies chest pain or pressure. Patient was started on IV Lasix. DIAGNOSTICS: - EKG reveals sinus mechanism with no signs of acute ischemia - Chest xray correlate for congestive heart failure. Underlying infiltrate of other etiology not excluded. - Laboratory data: WBC 9.17. Hemoglobin 11.7. Platelet count 138. Sodium 136. Potassium 3.9. Troponin negative x 3. proBNP 3070. - Current home cardiac medications include Eliquis 5 mg twice a day, aspirin 81 mg daily, Farxiga 10 mg daily, Zetia 10 mg daily, metoprolol succinate 25 mg daily, Entresto 24-26 mg twice a day, Aldactone 12.5 mg daily - Most recent echocardiogram obtained in 09/06/2024 reveals EF 20 to 25%, apical and anterior apical distal anterior septal hypokinesis, moderate to severe MR, mild ARPatient examined at the bedside. Progress note 10/19/2024 Patient still has elevated JVP, mild crackles in the lung, Blood pressure is low normal, SBP around 88, patient is reporting that he is very weak, if feeling lightheaded and is feeling very cold. 10/20/2024 Patient's creatinine worsened and is 3.8 today. REVIEW OF SYSTEMS: At the time of my exam: CONSTITUTIONAL: Denies fever or chills. HEENT: Denies blurred vision, vision changes, or eye pain. Denies hemoptysis CARDIOVASCULAR: Denies chest pain. Denies orthopnea. Denies PND. Denies palpitations RESPIRATORY: Denies shortness of breath. GASTROINTESTINAL: Denies abdominal pain. Denies nausea or vomiting. HEMATOLOGIC: Denies bleeding disorders. GENITOURINARY: Denies any blood in urine. SKIN: Denies pruitis. Denies rash. PHYSICAL EXAM: VITAL SIGNS: Reviewed. GENERAL: Well-developed in no acute distress. HEENT: Head is normocephalic. Pupils are equal, round. Sclerae anicteric. Mucous membranes of the mouth are moist. Neck supple. No JVD or thyromegaly LUNGS: Respirations even and unlabored. Lungs with expiratory wheezing noted. HEART: Regular rate and rhythm. S1 and S2 heard. ABDOMEN: Soft. Nondistended. Nontender. EXTREMITIES: Normal range of motion. No clubbing or cyanosis. Peripheral pulses intact. No lower extremity edema NEUROLOGIC: Awake and alert. Oriented x 3. ASSESSMENT: Shortness of breath Acute on chronic heart failure with reduced EF Coronary artery disease with previous CABG 20 years ago and redo CABG x 2, April 2024 Ischemic cardiomyopathy 20-25% History of bilateral pleural effusions History of multiple thoracentesis, most recent on 09/07/2024 right side Paroxysmal atrial fibrillation Hypertension Hyperlipidemia PLAN: Due to worsening of creatinine, Hold Lasix, Aldactone 25 mg daily, Entresto 24/26 mg twice daily. Appreciate nephrology recommendations Monitor renal function, urine output and electrolytes Continue metoprolol succinate 25 mg daily. Heart rate is at goal May consider checking for renal insufficiency especially as patient is reporting significant generalized weakness. Objective - Vital Signs Vital signs: Vital Signs Temp 96.1 F L 10/20/24 19:59 Pulse 100 10/20/24 20:51 Resp 17 10/20/24 19:59 BP 123/75 10/20/24 19:59 Pulse Ox 99 10/20/24 19:59 FiO2 Intake & Output 10/20/24 10/20/24 10/21/24 06:59 18:59 06:59 Intake Total 780 Balance 780 Weight 92.5 kg Intake: Oral 780 Other: Voiding Method Toilet Urinal - Labs CBC & Chem 7: 10/18/24 04:38 10/20/24 03:46 Labs: Abnormal Lab Results - Last 24 Hours (Table) 10/20/24 Range/Units 03:46 Sodium 132 L (137-145) mmol/L BUN 60 H (9-20) mg/dL Creatinine 3.81 H (0.66-1.25) mg/dL Glucose 148 H (74-99) mg/dL Microbiology - Last 24 Hours (Table) 10/18/24 08:45 Gram Stain - Final Sputum Sputum Culture - Final
[2024-10-20] MEDS ORDERED: ONDANSETRON 4 MG/2 ML VIAL IVP PRN (22:56)
[2024-10-21 08:43] LABS: Magnesium 2.2 mg/dL (1.5-2.4)
[2024-10-21 08:48] LABS: BUN/Creat Ratio 25.58 Ratio (12.00-20.00); Blood Urea Nitrogen 61.4 mg/dL (9.0-27.0); Calcium 8.4 mg/dL (8.7-10.3); Carbon Dioxide 22.9 mmol/L (21.6-31.8); Chloride 99 mmol/L (96-109); Glucose 118 mg/dL (70-110); Sodium 134 mmol/L (135-145)
--- NOTE | 2024-10-21 10:44 | P.PN ---
Subjective Principal diagnosis: Patient is seen in follow-up for acute kidney injury on chronic kidney disease. Renal function better today. On IV fluids. Denies chest pain or shortness of breath. Has been voiding. Vital signs are stable. General: No acute distress. HEENT: Head exam is unremarkable. LUNGS: No audible rhonchi or wheezes. HEART: Rate and Rhythm are regular. ABDOMEN: Abdomina nontender. EXTREMITITES: No edema. Objective - Vital Signs Vital signs: Vital Signs Temp 98.2 F 10/21/24 07:00 Pulse 99 10/21/24 08:40 Resp 16 10/21/24 07:00 BP 108/65 10/21/24 06:41 Pulse Ox 96 10/21/24 07:00 FiO2 Intake & Output 10/20/24 10/21/24 10/21/24 18:59 06:59 18:59 Intake Total 780 236 Balance 780 236 Weight 95.5 kg Intake: Oral 780 236 - Labs CBC & Chem 7: 10/18/24 04:38 10/21/24 04:21 Labs: Abnormal Lab Results - Last 24 Hours (Table) 10/21/24 Range/Units 04:21 Sodium 134 L (135-145) mmol/L Anion Gap 12.10 H (4.00-12.00) mmol/L BUN 61.4 H (9.0-27.0) mg/dL Creatinine 2.4 H (0.6-1.5) mg/dL Est GFR (CKD-EPI) 29 L (>=60) BUN/Creatinine Ratio 25.58 H (12.00-20.00) Ratio Glucose 118 H (70-110) mg/dL Calcium 8.4 L (8.7-10.3) mg/dL Microbiology - Last 24 Hours (Table) 10/18/24 08:45 Gram Stain - Final Sputum Sputum Culture - Final Assessment and Plan Plan: Assessment: 1. Acute kidney injury secondary to ATN. Baseline creatinine near 1 and up to 3.8 this admission. Improved to 2.4 today. No hydronephrosis noted on kidney ultrasound. 2. Acute on chronic systolic CHF ejection fraction of 20 to 25% with moderate to severe mitral regurgitation. 3. Coronary disease status post CABG several years ago and redo CABG in April 2024. 4. Fluid overload. Improved. Status post right-sided thoracentesis with 1.5 L drained October 18, 2024. 5. Metabolic acidosis secondary to acute kidney injury maintained on oral bicarb. Stable. Plan: Continue to hold diuretics and Entresto for now. Hep-Lock IV fluids. Follow-up UA. Continue to monitor renal function and urine output.
--- NOTE | 2024-10-21 12:14 | P.PN ---
Subjective Progress Note Date: 10/21/24 Patient is a 69-year-old male with past medical history significant for coronary artery disease status post PCI/stenting and CABG. Patient's original CABG was over 20 years ago, more recently had a two-vessel redo off-pump CABG April,. Also, he has severe ischemic cardiomyopathy with ejection fraction of 20 to 25%, recurrent right-sided pleural effusion requiring frequent thoracentesis, hypertension, hyperlipidemia, A-fib, left carotid artery stenosis, chronic oxygen dependence on 4 L/min nasal cannula while at home, COPD, former tobacco dependence. He is known to have recurrent right-sided pleural effusion, requiring multiple previous thoracentesis. Most recently drained September 07, 2024. Was total of 1.7 L of fluid was removed. Previously sent for fluid analysis, this has been a transudative effusion in the past. Fluid cytology previously negative for malignant cells. He is not familiar with his home medications. States he is not on any Lasix or Bumex at this time. Aldactone is listed in his home medications. Patient's most recent echocardiogram done August, showing a severely reduced left ventricular ejection fraction of 20 to 25%, as well as, moderate to severe mitral regurgitation. He is on a combination of Entresto, Farxiga, metoprolol, among other things. He is chronically anticoagulated on Eliquis. Patient presented to emergency department yesterday afternoon complaining mostly of extreme shortness of breath. Over the last 2 to 3 days he has had a productive cough with copious amounts of yellow to green sputum. Does report history of COPD. No longer smokes. Denies any fevers, chills, chest pain, hemoptysis. Unrelated, he is complaining of some lumbar level back pain, which he states is chronic. No weakness in the lower extremities or saddle anesthesia or loss of bowel or bladder control. Chest x-ray done on admission showing cardiomegaly, pulmonary vascular congestion, and a large right-sided pleural effusion. CBC: WBC count 7.2, hemoglobin 12.1, hematocrit 38.9, platelets 148. CMP is unremarkable. Electrolytes WDL. Glucose 106. LFTs unremarkable. Troponins 0.013, 0.017, and 0.019. NT proBNP elevated at 3070. EKG: Normal sinus rhythm, rate 80 bpm, chronic T wave inversions in 1, aVL, V5 V6; 2, aVF. Negative for influenza, RSV, COVID. Patient is currently being evaluated on the cardiac observation unit. He is tachypneic. Speaking in short phrases. He is on 3 L/min nasal cannula. He did receive 1 dose of Lasix earlier. On 10/19/2024, the patient continues to have shortness of breath. Limited improvement postthoracentesis. A total of 1.5 L of pleural fluid was aspirated and the pleural fluid was a exudate based on protein criteria. He is currently on room air oxygen. He remains on Lasix 40 mg every 12 hours. Fluid balance is negative. Labs from today shows a BUN of 34 with a creatinine of 2.3. Sodium levels at 135. He remains on anticoagulation and anticoagulation was resumed 5 mg p.o. twice a day. He remains on bronchodilators. Remains on steroids. He remains on Entresto and Aldactone. Remains on Farxiga. On 10/20/2024, the patient is experiencing an acute kidney injury and nephrology has been consulted on the case. Is resting comfortably in bed and is currently on 2 L with a pulse ox of 97%. He is still producing urine output and the patient is nonoliguric. The patient was seen by nephrology. Diuretics have been discontinued. He is Aldactone has been discontinued. Farxiga has been discontinued. He is receiving normal saline at rate of 50 cc an hour. Blood work from today shows a BUN of 60 with a creatinine of 3.8 and sodium levels at 132. No other issues otherwise for now. No chest pain. Continues to have some mild shortness of breath. The patient is seen today October 21, 2024 in follow-up on the regular medical floor. He is currently sitting up at the bedside. Awake and alert in no acute distress. He is maintaining good O2 saturations in the 90s on 2 L/min per nasal cannula. He has normal saline at 50 mL/h. He is status post right sided thoracentesis. Sodium 134. Potassium 5.0. Bicarb 23. BUN 61. Creatinine 2.4. Glucose 118. Sputum culture revealed no growth. He is continued on DuoNeb and elations, Symbicort, prednisone taper. Anticoagulated with Eliquis. Objective - Vital Signs Vital signs: Vital Signs Temp 98.2 F 10/21/24 07:00 Pulse 99 10/21/24 08:40 Resp 16 10/21/24 07:00 BP 108/65 10/21/24 06:41 Pulse Ox 96 10/21/24 07:00 FiO2 Intake & Output 10/20/24 10/21/24 10/21/24 18:59 06:59 18:59 Intake Total 780 236 Balance 780 236 Weight 95.5 kg Intake: Oral 780 236 - Exam GENERAL EXAM: Alert, pleasant 69-year-old male, on 2 L nasal cannula, comfortable in no apparent distress. HEAD: Normocephalic. EYES: Normal reaction of pupils, equal size. NOSE: Clear with pink turbinates. THROAT: No erythema or exudates. NECK: No masses, no JVD. CHEST: No chest wall deformity. LUNGS: Equal air entry with faint crackles in the posterior bases. CVS: S1 and S2 normal with no audible murmur, regular rhythm. ABDOMEN: No hepatosplenomegaly, normal bowel sounds, no guarding or rigidity. SPINE: No scoliosis or deformity SKIN: No rashes CENTRAL NERVOUS SYSTEM: No focal deficits, tone is normal in all 4 extremities. EXTREMITIES: There is no peripheral edema. No clubbing, no cyanosis. Peripheral pulses are intact. - Labs CBC & Chem 7: 10/18/24 04:38 10/21/24 04:21 Labs: Abnormal Lab Results - Last 24 Hours (Table) 10/21/24 Range/Units 04:21 Sodium 134 L (135-145) mmol/L Anion Gap 12.10 H (4.00-12.00) mmol/L BUN 61.4 H (9.0-27.0) mg/dL Creatinine 2.4 H (0.6-1.5) mg/dL Est GFR (CKD-EPI) 29 L (>=60) BUN/Creatinine Ratio 25.58 H (12.00-20.00) Ratio Glucose 118 H (70-110) mg/dL Calcium 8.4 L (8.7-10.3) mg/dL Microbiology - Last 24 Hours (Table) 10/18/24 08:45 Gram Stain - Final Sputum Sputum Culture - Final Assessment and Plan Assessment: Acute hypoxic respiratory failure secondary to a combination of acute systolic congestive heart failure, recurrent right pleural effusion, and acute COPD exacerbation, Chest x-ray done on admission showing cardiomegaly, pulmonary vascular congestion, and a large right-sided pleural effusion. NT proBNP 3070 Recurrent large right-sided pleural effusion. Most recently drained this admission 10/18/2024 with 1.5 L removed. Fluid cytology pending Coronary artery disease, with previous PCI/stenting and CABG over 20 years ago, subsequent two-vessel redo off-pump CABG April, Ischemic cardiomyopathy, most recent available echocardiogram from August, estimating a severely reduced left ventricular ejection fraction of 20 to 25%, as well as, monitor severe mitral regurgitation Acute kidney injury, likely secondary to diuretics and cardiorenal factors. History of paroxysmal atrial fibrillation, currently sinus mechanism, anticoagulated on Eliquis History of hypertension History of hyperlipidemia History of left internal carotid artery stenosis, 50-79% Chronic anemia Former tobacco dependence Severe COPD , FEV1 43% of predicted Chronic hypoxemic respiratory failure, normally maintained on 4 L/min nasal cannula Obstructive sleep apnea Chronic back pain with history of back surgery Plan: The patient was seen and evaluated Labs and medications reviewed Continue bronchodilators, steroids Diuretics and Entresto remain on hold Nephrology following We will continue to follow I have personally seen and examined the patient, performed the documentation and the assessment and plan as written. Number of minutes spent on the visit: 10 Dictation was produced using [employer] dictation software. Please excuse any grammatical, word or spelling errors.
--- NOTE | 2024-10-21 15:14 | P.PN ---
Subjective Patient sitting up comfortably in bed. He says he feels well Denies any chest discomfort. Does not appear to be short of breathOn examin ation his pulse rate is in the 90s Blood pressure 108/65 mmHgLabs when he came in his creatinine was 0.88 and 1.0 and then on the it jumped up to 2.3 then went up to 3.8 and now is down to 2.4 He is mildly hyponatremic also NT proBNP was greater than 3000 He underwent thoracentesis On examination breath sounds are reduced bilaterally Heart sounds sinus to a soft Impression Acute hypoxic respiratory failure due to acute systolic congestive heart failure recurrent right pleural effusion Large right-sided pleural effusion that was drained on the CAD status post PCI and CABG 20 years back Redo CABG in April 2024 Ischemic cardiomyopathy ejection fraction 20-25% Acute kidney injury, acute renal failure Midodrine is a vasoconstrictor, both venous and arterial Midodrine induced venoconstriction increases preload and may exacerbate heart failure by raising EDP in ventricles Midodrine induced arteriolar constriction while increasing blood pressure will reduce stroke-volume/left ventricular ejection per beat and paradoxically reduced forward perfusion Blood pressure is a inadequate surrogate of forward perfusion in HFrEF The main determinant of perfusion is stroke-volume and cardiac output. By reducing stroke-volume, midodrine reduces organ perfusion. Hence midodrine is contraindicated in cardiomyopathy and heart failure as well as renal failure (both acute and chronic) In clinical trials, VASODILATOR therapy (with hydralazine and nitrates combination, EDER inhibitors, angiotensin receptor blockers, carvedilol & Entresto) has shown to improve hospitalization, heart failure status and mortality Retrospective data from [facility] shows that while the strategy of using midodrine to allow the use of higher doses of carvedilol and Entresto and spironolactone may seem attractive, it is associated with a very high morbidity and mortality (26%) when compared to the cohort of heart failure patients in which midodrine is not used and much lower doses of heart failure medications were employed (3-5%). Therefore the most prudent strategy to avoid severe drops in blood pressure in heart failure patients is to use the lowest doses of quadruple therapy for heart failure pts without the use of vasoconstrictors. Once his renal function improves midodrine should be discontinued and his heart failure medication should be restarted. Hold off on Entresto for a few days but ultimately without heart failure vasodilator therapy his heart failure prognosis is very poor Suggest Follow pulmonary and renal advice and recommendations Continue apixaban and aspirin and Zetia Continue metoprolol succinate On account of his renal function Entresto was stopped along with spironolactone He is on midodrine ordered by nephrology Will sign off at this time Objective - Vital Signs Vital signs: Vital Signs Temp 98.2 F 10/21/24 07:00 Pulse 98 10/21/24 12:29 Resp 16 10/21/24 07:00 BP 108/65 10/21/24 06:41 Pulse Ox 96 10/21/24 07:00 FiO2 Intake & Output 10/20/24 10/21/24 10/21/24 18:59 06:59 18:59 Intake Total 780 236 Balance 780 236 Weight 95.5 kg Intake: Oral 780 236 - Labs CBC & Chem 7: 10/18/24 04:38 10/21/24 04:21 Labs: Abnormal Lab Results - Last 24 Hours (Table) 10/21/24 Range/Units 04:21 Sodium 134 L (135-145) mmol/L Anion Gap 12.10 H (4.00-12.00) mmol/L BUN 61.4 H (9.0-27.0) mg/dL Creatinine 2.4 H (0.6-1.5) mg/dL Est GFR (CKD-EPI) 29 L (>=60) BUN/Creatinine Ratio 25.58 H (12.00-20.00) Ratio Glucose 118 H (70-110) mg/dL Calcium 8.4 L (8.7-10.3) mg/dL Microbiology - Last 24 Hours (Table) 10/18/24 08:45 Gram Stain - Final Sputum Sputum Culture - Final
[2024-10-21 23:18] LABS: Appearance,Urine Clear (Clear); Bilirubin,Urine Negative (Negative); Blood,Urine Trace (Negative); Color,Urine Colorless; Glucose,Urine (UA) 4+ (Negative); Ketones,Urine Negative (Negative); Leukocyte Esterase,Urine Negative (Negative); Nitrite,Urine Negative (Negative); Protein,Urine Negative (Negative); RBC,Urine 1 /hpf (0-5); Squamous Epithelial Cell,Urine <1 /hpf (0-4); Urobilinogen,Urine <2.0 mg/dL (<2.0); WBC,Urine <1 /hpf (0-5)
--- NOTE | 2024-10-22 08:38 | XR ---
EXAMINATION TYPE: XR chest 1V portable DATE OF EXAM: 10/22/2024 8:32 AM COMPARISON: 10/20/2024 CLINICAL INDICATION: Male, 69 years old with history of CHF, , FINDINGS: Median sternotomy wires with post-CABG. Heart is mild to moderately enlarged. Diffuse interstitial op acities. Ongoing small to moderate right pleural effusion with right basilar opacity. IMPRESSION: Similar CHF with pulmonary vascular congestion as well as a small to moderate right pleural effusion with adjacent atelectasis and/or consolidation. [facility], , 10/22/2024 8:35 AM
[2024-10-22 08:57] LABS: Magnesium 2.4 mg/dL (1.5-2.4)
[2024-10-22] MEDS: predniSONE 10 MG TAB PO SCH (09:13)
[2024-10-22 10:02] LABS: BUN/Creat Ratio 38.27 Ratio (12.00-20.00); Blood Urea Nitrogen 42.1 mg/dL (9.0-27.0); Calcium 8.6 mg/dL (8.7-10.3); Carbon Dioxide 25.8 mmol/L (21.6-31.8); Chloride 103 mmol/L (96-109); Glucose 115 mg/dL (70-110); Potassium 5.3 mmol/L (3.5-5.5); Sodium 136 mmol/L (135-145)
--- NOTE | 2024-10-22 11:03 | P.PN ---
Subjective Principal diagnosis: Patient is seen in follow-up for acute kidney injury on chronic kidney disease. Renal function much improved. Feels short of breath today. Admits to good urine output. Vital signs are stable. General: No acute distress. HEENT: Head exam is unremarkable. On nasal cannula. LUNGS: No audible rhonchi or wheezes. HEART: Rate and Rhythm are regular. ABDOMEN: Abdomina nontender. EXTREMITITES: Trace edema. Objective - Vital Signs Vital signs: Vital Signs Temp 98.2 F 10/22/24 07:00 Pulse 96 10/22/24 09:33 Resp 17 10/22/24 07:00 BP 108/65 10/22/24 09:42 Pulse Ox 97 10/22/24 07:00 FiO2 Intake & Output 10/21/24 10/22/24 10/22/24 18:59 06:59 18:59 Intake Total 236 Balance 236 Weight 99.5 kg Intake: Oral 236 Other: Voiding Method Toilet Toilet - Labs CBC & Chem 7: 10/18/24 04:38 10/22/24 04:17 Labs: Abnormal Lab Results - Last 24 Hours (Table) 10/21/24 10/22/24 Range/Units 22:44 04:17 BUN 42.1 H (9.0-27.0) mg/dL BUN/Creatinine Ratio 38.27 H (12.00-20.00) Ratio Glucose 115 H (70-110) mg/dL Calcium 8.6 L (8.7-10.3) mg/dL Urine Glucose (UA) 4+ H (Negative) Urine Blood Trace H (Negative) Assessment and Plan Plan: Assessment: 1. Acute kidney injury secondary to ATN. Baseline creatinine near 1 and up to 3.8 this admission. Improved to 1.1 today. No hydronephrosis noted on kidney ultrasound. UA benign. 2. Acute on chronic systolic CHF ejection fraction of 20 to 25% with moderate to severe mitral regurgitation. 3. Coronary disease status post CABG several years ago and redo CABG in April 2024. 4. Fluid overload. Improved. Status post right-sided thoracentesis with 1.5 L drained October 18, 2024. 5. Metabolic acidosis secondary to acute kidney injury maintained on oral bicarb. Stable. Plan: Lasix 40 mg IV once today. Add oral Lasix 40 mg once daily. Add Farxiga. Cardiac diet. 1500 cc fluid restriction. Continue to monitor renal function and urine output.
--- NOTE | 2024-10-22 11:04 | P.PN ---
Subjective Progress Note Date: 10/22/24 Patient is a 69-year-old male with past medical history significant for coronary artery disease status post PCI/stenting and CABG. Patient's original CABG was over 20 years ago, more recently had a two-vessel redo off-pump CABG April,. Also, he has severe ischemic cardiomyopathy with ejection fraction of 20 to 25%, recurrent right-sided pleural effusion requiring frequent thoracentesis, hypertension, hyperlipidemia, A-fib, left carotid artery stenosis, chronic oxygen dependence on 4 L/min nasal cannula while at home, COPD, former tobacco dependence. He is known to have recurrent right-sided pleural effusion, requiring multiple previous thoracentesis. Most recently drained September 07, 2024. Was total of 1.7 L of fluid was removed. Previously sent for fluid analysis, this has been a transudative effusion in the past. Fluid cytology previously negative for malignant cells. He is not familiar with his home medications. States he is not on any Lasix or Bumex at this time. Aldactone is listed in his home medications. Patient's most recent echocardiogram done August, showing a severely reduced left ventricular ejection fraction of 20 to 25%, as well as, moderate to severe mitral regurgitation. He is on a combination of Entresto, Farxiga, metoprolol, among other things. He is chronically anticoagulated on Eliquis. Patient presented to emergency department yesterday afternoon complaining mostly of extreme shortness of breath. Over the last 2 to 3 days he has had a productive cough with copious amounts of yellow to green sputum. Does report history of COPD. No longer smokes. Denies any fevers, chills, chest pain, hemoptysis. Unrelated, he is complaining of some lumbar level back pain, which he states is chronic. No weakness in the lower extremities or saddle anesthesia or loss of bowel or bladder control. Chest x-ray done on admission showing cardiomegaly, pulmonary vascular congestion, and a large right-sided pleural effusion. CBC: WBC count 7.2, hemoglobin 12.1, hematocrit 38.9, platelets 148. CMP is unremarkable. Electrolytes WDL. Glucose 106. LFTs unremarkable. Troponins 0.013, 0.017, and 0.019. NT proBNP elevated at 3070. EKG: Normal sinus rhythm, rate 80 bpm, chronic T wave inversions in 1, aVL, V5 V6; 2, aVF. Negative for influenza, RSV, COVID. Patient is currently being evaluated on the cardiac observation unit. He is tachypneic. Speaking in short phrases. He is on 3 L/min nasal cannula. He did receive 1 dose of Lasix earlier. On 10/19/2024, the patient continues to have shortness of breath. Limited improvement postthoracentesis. A total of 1.5 L of pleural fluid was aspirated and the pleural fluid was a exudate based on protein criteria. He is currently on room air oxygen. He remains on Lasix 40 mg every 12 hours. Fluid balance is negative. Labs from today shows a BUN of 34 with a creatinine of 2.3. Sodium levels at 135. He remains on anticoagulation and anticoagulation was resumed 5 mg p.o. twice a day. He remains on bronchodilators. Remains on steroids. He remains on Entresto and Aldactone. Remains on Farxiga. On 10/20/2024, the patient is experiencing an acute kidney injury and nephrology has been consulted on the case. Is resting comfortably in bed and is currently on 2 L with a pulse ox of 97%. He is still producing urine output and the patient is nonoliguric. The patient was seen by nephrology. Diuretics have been discontinued. He is Aldactone has been discontinued. Farxiga has been discontinued. He is receiving normal saline at rate of 50 cc an hour. Blood work from today shows a BUN of 60 with a creatinine of 3.8 and sodium levels at 132. No other issues otherwise for now. No chest pain. Continues to have some mild shortness of breath. The patient is seen today October 21, 2024 in follow-up on the regular medical floor. He is currently sitting up at the bedside. Awake and alert in no acute distress. He is maintaining good O2 saturations in the 90s on 2 L/min per nasal cannula. He has normal saline at 50 mL/h. He is status post right sided thoracentesis. Sodium 134. Potassium 5.0. Bicarb 23. BUN 61. Creatinine 2.4. Glucose 118. Sputum culture revealed no growth. He is continued on DuoNeb and elations, Symbicort, prednisone taper. Anticoagulated with Eliquis. The patient is seen today October 22, 2024 in follow-up on the regular medical floor. He is currently resting in bed. Awake and alert in no acute distress. Stating not feeling as good today as compared to yesterday. He is maintaining O2 saturations in the 90s on 2 L/min per nasal cannula. His sputum revealed no growth. Echocardiogram revealed impaired left ventricular systolic function with ejection fraction 20 to 25% with moderate to severe mitral regurgitation. He still has some cough and congestion. Follow-up chest x-ray today reveals similar findings with right pleural effusion. Sodium 136. Potassium 5.3. Bicarb 26. BUN 42. Creatinine 1.1. Glucose 115. He remains on DuoNeb inhalations, Symbicort, prednisone taper. Anticoagulated with Eliquis. Objective - Vital Signs Vital signs: Vital Signs Temp 98.2 F 10/22/24 07:00 Pulse 96 10/22/24 09:33 Resp 17 10/22/24 07:00 BP 108/65 10/22/24 09:42 Pulse Ox 97 10/22/24 07:00 FiO2 Intake & Output 10/21/24 10/22/24 10/22/24 18:59 06:59 18:59 Intake Total 236 Balance 236 Weight 99.5 kg Intake: Oral 236 Other: Voiding Method Toilet Toilet - Exam GENERAL EXAM: Alert, 69-year-old male, resting in bed, on 2 L nasal cannula, in no apparent distress. HEAD: Normocephalic. EYES: Normal reaction of pupils, equal size. NOSE: Clear with pink turbinates. THROAT: No erythema or exudates. NECK: No masses, no JVD. CHEST: No chest wall deformity. LUNGS: Equal air entry with faint crackles in the posterior bases, right greater than left. CVS: S1 and S2 normal with an audible murmur, regular rhythm. ABDOMEN: No hepatosplenomegaly, normal bowel sounds, no guarding or rigidity. SPINE: No scoliosis or deformity SKIN: No rashes CENTRAL NERVOUS SYSTEM: No focal deficits, tone is normal in all 4 extremities. EXTREMITIES: There is no peripheral edema. No clubbing, no cyanosis. Peripheral pulses are intact. - Labs CBC & Chem 7: 10/18/24 04:38 10/22/24 04:17 Labs: Abnormal Lab Results - Last 24 Hours (Table) 10/21/24 10/22/24 Range/Units 22:44 04:17 BUN 42.1 H (9.0-27.0) mg/dL BUN/Creatinine Ratio 38.27 H (12.00-20.00) Ratio Glucose 115 H (70-110) mg/dL Calcium 8.6 L (8.7-10.3) mg/dL Urine Glucose (UA) 4+ H (Negative) Urine Blood Trace H (Negative) Assessment and Plan Assessment: Acute hypoxic respiratory failure secondary to a combination of acute systolic congestive heart failure, recurrent right pleural effusion, and acute COPD exacerbation, Chest x-ray done on admission showing cardiomegaly, pulmonary vascular congestion, and a large right-sided pleural effusion. Follow-up chest x-ray shows improvement in the right effusion, stable. NT proBNP 3070 Recurrent large right-sided pleural effusion. Drained this admission 10/18/2024 with 1.5 L removed. Fluid cytology negative for malignancy Coronary artery disease, with previous PCI/stenting and CABG over 20 years ago, subsequent two-vessel redo off-pump CABG April, Ischemic cardiomyopathy, most recent available echocardiogram from August, estimating a severely reduced left ventricular ejection fraction of 20 to 25%, as well as, monitor severe mitral regurgitation Acute kidney injury, likely secondary to diuretics and cardiorenal factors. History of paroxysmal atrial fibrillation, currently sinus mechanism, anticoagulated on Eliquis History of hypertension History of hyperlipidemia History of left internal carotid artery stenosis, 50-79% Chronic anemia Former tobacco dependence Severe COPD , FEV1 43% of predicted Chronic hypoxemic respiratory failure, normally maintained on 4 L/min nasal cannula Obstructive sleep apnea Chronic back pain with history of back surgery Plan: The patient was seen and evaluated Chest x-ray, labs and medications reviewed Give Lasix 40 mg IVP x 1 Continue bronchodilators, steroids Titrate down the FiO2 as tolerated Increase his activity as tolerated We will continue to follow I have personally seen and examined the patient, performed the documentation and the assessment and plan as written. Number of minutes spent on the visit: 10 Dictation was produced using [employer] software. Please excuse any grammatical, word or spelling errors.
[2024-10-22] MEDS: FUROSEMIDE 10 MG/ML 4 ML VIAL IV STA (12:50)
[2024-10-22] MEDS: DAPAGLIFLOZIN PROPANEDIOL 5 MG TABLET PO SCH (12:51)
[2024-10-22 14:05] VITALS: BP 116/67; RESP 16; TEMP 98.6
[2024-10-22 17:04] VITALS: PULSE 92
--- NOTE | 2024-10-22 21:25 | PN ---
PROGRESS NOTE CHIEF COMPLAINT: Shortness of breath. HISTORY OF PRESENT ILLNESS: This gentleman is not doing well. He is having more shortness of breath. He denies chest pain. PHYSICAL EXAM: LUNGS: Breath sounds are still decreased at the right base. CARDIAC: Unchanged. ABDOMEN: Soft, nontender. IMPRESSION: 1. Acute on chronic congestive heart failure. 2. Atherosclerotic cardiomyopathy. 3. Right pleural effusion. 4. Chronic obstructive pulmonary disease. PLAN: Follow chest x-ray report, clinical findings, and laboratory studies. MMODL / IJN: [id number] /
[2024-10-23] MEDS ORDERED: FUROSEMIDE 40 MG TAB PO SCH (09:00)
--- NOTE | 2024-10-23 13:16 | DS ---
DISCHARGE SUMMARY CHIEF COMPLAINT: Shortness of breath. HISTORY OF PRESENT ILLNESS AND PHYSICAL EXAMINATION: Details of this man's history and physical can be found in the initial workup. LABORATORY STUDIES: While he was in the hospital, he had laboratory studies, details of which can be found in the laboratory section of his chart. COURSE IN THE HOSPITAL: After admission, he was placed on bedrest with nasal O2 and he was seen by Interventional Radiology who did a thoracentesis on the right. His breathing improved somewhat, but he remained very dyspneic throughout the rest of his hospitalization due to his congestive heart failure. He was not doing particularly well and it was not planned that he would be discharged, but he signed out AMA on the . FINAL DIAGNOSES: 1. Acute congestive heart failure. 2. Chronic congestive heart failure. 3. Atherosclerotic cardiomyopathy. 4. Coronary artery disease. 5. Chronic obstructive pulmonary disease. 6. Right pleural effusion. 7. Noncompliant patient. OPERATION: Thoracentesis. CONSULTATIONS: Cardiology and Interventional Radiology. MMDEYANIRA / NATHALYN: [id number] /
== END 2024-10-22 19:20 | disposition left against medical advice (07) | DRG 291 ==
LOC: EC 13:23 → 6NMEDSUR 17:48 → OBSVTOIN 17:49 → 6NMEDSUR 20:33
PROVIDERS: ADMIT Family Medicine; ATTEND Family Medicine
PROC: 0W993ZZ Drainage of Right Pleural Cavity, Percutaneous Approach (ICD-10-PCS; principal; 2024-10-18)
DX: I13.0 Hypertensive heart and chronic kidney disease with heart failure and stage 1 through stage 4 chronic kidney disease, or unspecified chronic kidney disease (principal); I50.23 Acute on chronic systolic (congestive) heart failure; J96.21 Acute and chronic respiratory failure with hypoxia; N17.0 Acute kidney failure with tubular necrosis; J44.1 Chronic obstructive pulmonary disease with (acute) exacerbation; E87.1 Hypo-osmolality and hyponatremia; E87.20 Acidosis, unspecified; I25.5 Ischemic cardiomyopathy; E78.5 Hyperlipidemia, unspecified; K21.9 Gastro-esophageal reflux disease without esophagitis; M19.90 Unspecified osteoarthritis, unspecified site; I48.0 Paroxysmal atrial fibrillation; G47.33 Obstructive sleep apnea (adult) (pediatric); G47.30 Sleep apnea, unspecified; F17.200 Nicotine dependence, unspecified, uncomplicated; G89.29 Other chronic pain; M54.9 Dorsalgia, unspecified; I34.0 Nonrheumatic mitral (valve) insufficiency; T50.2X5A Adverse effect of carbonic-anhydrase inhibitors, benzothiadiazides and other diuretics, initial encounter; I25.10 Atherosclerotic heart disease of native coronary artery without angina pectoris; N18.9 Chronic kidney disease, unspecified; D63.1 Anemia in chronic kidney disease; F43.10 Post-traumatic stress disorder, unspecified; Z91.199 Patient's noncompliance with other medical treatment and regimen due to unspecified reason; Z79.899 Other long term (current) drug therapy; Z79.82 Long term (current) use of aspirin; Z91.040 Latex allergy status; I25.2 Old myocardial infarction; Z95.1 Presence of aortocoronary bypass graft; Z79.01 Long term (current) use of anticoagulants; Z86.711 Personal history of pulmonary embolism; Z95.5 Presence of coronary angioplasty implant and graft; Z99.81 Dependence on supplemental oxygen
CPT/HCPCS: 36415; 71045; 71046; 76770; 80048; 80053; 81001; 82533; 82945; 83615; 83735; 83880; 84157; 84484; 85025; 85610; 85730; 87070; 87205; 87636; 88108; 88305; 89050; 93005; 94640; 96374; 96375; 99285

== ENCOUNTER 2024-10-24 16:47 | Observation (INO) | payer MEDICARE, OTHER ==
[2024-10-24 18:00] LABS: Anisocytosis Slight; Basophils % (A) 0 %; Eosinophils # (A) 0.2 k/uL (0-0.7); Eosinophils % (A) 3 %; HCT 42.6 % (39.0-53.0); Hypochromasia Marked; Lymphocytes # (A) 1.3 k/uL (1.0-4.8); Lymphocytes % (A) 17 %; MCH 25.3 pg (25.0-35.0); MCHC 30.6 g/dL (31.0-37.0); MCV 82.6 fL (80.0-100.0); Mean Platelet Volume 8.8; Microcytosis Slight; Monocytes # (A) 0.8 k/uL (0-1.0); Monocytes % (A) 10 %; Neutrophils # (A) 5.2 k/uL (1.3-7.7); Neutrophils % (A) 69 %; Platelet Count 168 k/uL (150-450); RBC 5.16 m/uL (4.30-5.90); RDW 18.6 % (11.5-15.5); WBC 7.6 k/uL (3.8-10.6)
--- NOTE | 2024-10-24 18:03 | ED ---
General Adult HPI - General Chief complaint: Shortness of Breath Stated complaint: chest pain, MICKIE Time Seen by Provider: 10/24/24 17:24 Source: patient, RN notes reviewed Mode of arrival: wheelchair Limitations: no limitations - History of Present Illness Initial comments: 69-year-old male presents to the emergency department for evaluation of back alondra n radiating to his chest and abdomen. He states that this started yesterday and has been on and off. He notes that the pain has been lasting for 5 to 10 minutes in his discharge shooting pain. He states that it is worse with exertion. Reports history of extensive coronary artery disease. He reports that he was recently admitted but left against medical advice due to a family issue. He states that at that time he was diagnosed with pneumonia. He denies any recent fever, chills. Admits to cough. - Related Data Home Medications Medication Instructions Recorded Confirmed Fluticasone Nasal [place] [Flonase 1 spray EA NOSTRIL BID PRN 01/27/23 10/24/24 Nasal [place]] Cyclobenzaprine [Flexeril] 10 mg PO BID 08/21/23 10/24/24 Ergocalciferol [Vitamin D2 (1250 1,250 mcg PO Q14D 05/10/24 10/24/24 Mcg = 45552 Iu)] Ferrous Sulfate [Iron (65 MG 325 mg PO DAILY 05/10/24 10/24/24 Elemental)] Gabapentin [Neurontin] 100 mg PO TID 05/10/24 10/24/24 ALPRAZolam [Xanax] 2 mg PO HS 07/27/24 10/24/24 Albuterol Inhaler [Ventolin Hfa 2 puff INHALATION RT-Q6H PRN 09/05/24 10/24/24 Inhaler] Aspirin EC [Ecotrin Low Dose] 81 mg PO DAILY 09/05/24 10/24/24 Folic Acid 1 mg PO DAILY 09/05/24 10/24/24 Omeprazole [PriLOSEC] 20 mg PO DAILY 09/05/24 10/24/24 Tamsulosin [Flomax] 0.4 mg PO DAILY 09/05/24 10/24/24 allopurinoL [Zyloprim] 100 mg PO DAILY 09/05/24 10/24/24 rOPINIRole HCL [Requip] 0.25 mg PO HS 09/05/24 10/24/24 Sacubitril/Valsartan [Entresto 24 1 tab PO BID 09/25/24 10/24/24 mg-26 mg Tablet] oxyCODONE-APAP 10-325MG [Percocet 1 tab PO Q4HR PRN 09/25/24 10/24/24 10-325 mg] Spironolactone [Aldactone] 12.5 mg PO DAILY 10/17/24 10/24/24 Previous Rx's Medication Instructions Recorded Ezetimibe [Zetia] 10 mg PO DAILY #90 tab 11/18/22 Sodium Bicarbonate Tab 650 mg PO TID #100 tab 01/25/24 Dapagliflozin Propanediol [Farxiga] 10 mg PO DAILY tab 05/24/24 Ipratropium-Albuterol Nebulize 3 ml INHALATION RT-Q2H PRN each 05/24/24 [Duoneb 0.5 mg-3 mg/3 ml Soln] Apixaban [Eliquis] 5 mg PO BID #60 tab 09/09/24 Metoprolol Succinate (ER) [Toprol 25 mg PO DAILY 30 Days #30 tab 09/11/24 XL] Allergies Allergy/AdvReac Type Severity Reaction Status Date / Time latex Allergy Swelling Verified 10/24/24 19:22 atorvastatin [From Lipitor] AdvReac JOINT PAIN Verified 10/24/24 19:22 Review of Systems ROS Statement: Those systems with pertinent positive or pertinent negative responses have been documented in the HPI. ROS Other: All systems not noted in ROS Statement are negative. Past Medical History Past Medical History: Coronary Artery Disease (CAD), Chest Pain / Angina, Heart Failure, COPD, GERD/Reflux, Hyperlipidemia, Hypertension, Myocardial Infarction (CO), Osteoarthritis (OA), Sleep Apnea/CPAP/BIPAP Additional Past Medical History / Comment(s): Chronic back pain, left leg weakness. 4LNC. States unsure about having had a heart attack. Last Myocardial Infarction Date:: 11/11/22 History of Any Multi-Drug Resistant Organisms: None Reported Past Surgical History: Back Surgery, Cholecystectomy, Coronary Bypass/CABG, Heart Catheterization With Stent Additional Past Surgical History / Comment(s): Back surgery X2 with cage, left tennis elbow surgery, heart stents X7, colonoscopy. emergency CABG [facility], thrombectomy. April Past Anesthesia/Blood Transfusion Reactions: No Reported Reaction Additional Past Anesthesia/Blood Transfusion Reaction / Comment(s): Pt received blood during CABG without reaction. Date of Last Stent Placement:: Oct 2022 Past Psychological History: Anxiety, Depression, PTSD Smoking Status: Former smoker, Vaper Past Alcohol Use History: None Reported Past Drug Use History: None Reported - Past Family History Father Family Medical History: Coronary Artery Disease (CAD), Deep Vein Thrombosis (DVT), GERD/Reflux, Hyperlipidemia, Myocardial Infarction (CO) Additional Family Medical History / Comment(s): Father of a CO in his 80's. Mother Family Medical History: Coronary Artery Disease (CAD), Myocardial Infarction (CO) Additional Family Medical History / Comment(s): Mother of a CO. Brother(s) Family Medical History: Myocardial Infarction (CO) Additional Family Medical History / Comment(s): . Sister(s) Family Medical History: Cancer, Diabetes Mellitus Additional Family Medical History / Comment(s): Lung cancer. Other sister had Diabetes. General Exam Limitations: no limitations General appearance: alert, in no apparent distress Head exam: Present: atraumatic, normocephalic, normal inspection Eye exam: Present: normal appearance, PERRL, EOMI. Absent: scleral icterus, conjunctival injection, periorbital swelling ENT exam: Present: normal exam, mucous membranes moist Neck exam: Present: normal inspection. Absent: tenderness, meningismus, lymphadenopathy Respiratory exam: Absent: respiratory distress, wheezes, rales, rhonchi, stridor Cardiovascular Exam: Present: regular rate, normal rhythm. Absent: systolic murmur, diastolic murmur, rubs, gallop, clicks Extremities exam: Present: normal inspection, full ROM, normal capillary refill. Absent: tenderness, pedal edema, joint swelling, calf tenderness Back exam: Present: normal inspection Neurological exam: Present: alert, oriented X3 Psychiatric exam: Present: normal affect, normal mood Skin exam: Present: warm, dry, intact, normal color. Absent: rash Course Vital Signs 10/24/24 10/24/24 10/24/24 17:01 18:13 22:05 Temperature 97.6 F Pulse Rate 83 85 93 Respiratory 22 18 18 Rate Blood Pressure 122/72 98/70 108/60 O2 Sat by Pulse 99 96 95 Oximetry Medical Decision Making - Medical Decision Making Was pt. sent in by a medical professional or institution (ROBERT Zelaya, PLUG SAW OPERATOR, urgent care, hospital, or [facility]...) When possible be specific @ -No Did you speak to anyone other than the patient for history (EMS, parent, family, police, friend...)? What history was obtained from this source @ -No Did you review nursing and triage notes (agree or disagree)? Why? @ -I reviewed and agree with nursing and triage notes Were old charts reviewed (outside hosp., previous admission, EMS record, old EKG, old radiological studies, urgent care reports/EKG's, [facility] records)? Report findings @ -No old charts were reviewed Differential Diagnosis (chest pain, altered mental status, abdominal pain women, abdominal pain men, vaginal bleeding, weakness, fever, dyspnea, syncope, headache, dizziness, GI bleed, back pain, seizure, CVA, palpatations, mental health, musculoskeletal)? @ -Differential Chest Pain: Stable Angina, Unstable Angina, STEMI, NSTEMI Aortic Dissection, Pneumothorax, Musculoskeletal, Esophageal Spasm GERD, Cholecystitis, Pancreatitis, Zoster, this is not meant to be an all-inclusive list. EKG interpreted by me (3pts min.). @ -EKG at 2144 shows sinus rhythm rate 92, NH 133, QRS 112, QT/QTc 374/424 X-rays interpreted by me (1pt min.). @ -Chest x-ray shows Right lower lobe airspace opacities CT interpreted by me (1pt min.). @ -CT thorax evaluationNo evidence of aortic dissection or aneurysm, post CABG changes, small right pleural effusion U/S interpreted by me (1pt. min.). @ -None done What testing was considered but not performed or refused? (CT, X-rays, U/S, labs)? Why? @ -None What meds were considered but not given or refused? Why? @ -None Did you discuss the management of the patient with other professionals ( professionals i.e. ROBERT Zelaya, PLUG SAW OPERATOR, lab, RT, psych nurse, social human services assistants, event crew technician, teacher, control systems drafting officer, immigration case manager)? Give summary @ -Management was discussed with cardiology by my attending, Dr. Mendes who recommended that the patient be started on a heparin drip, nitro-paste, patient to be admitted to medicine Case discussed with Dr. Gee accepting of the admission Was smoking cessation discussed for >3mins.? @ -No Was critical care preformed (if so, how long)? @ -No Were there social determinants of health that impacted care today? How? (Homelessness, low income, unemployed, alcoholism, drug addiction, transportation, low edu. Level, literacy, decrease access to med. care, [facility], rehab)? @ -No Was there de-escalation of care discussed even if they declined (Discuss DNR or withdrawal of care, Hospice)? DNR status @ -No What co-morbidities impacted this encounter? (DM, HTN, Smoking, COPD, CAD, Cancer, CVA, ARF, Chemo, Hep., AIDS, mental health diagnosis, sleep apnea, morbid obesity)? @ -CAD Was patient admitted / discharged? Hospital course, mention meds given and route, prescriptions, significant lab abnormalities, going to OR and other pertinent info. @ -Admitted. Patient presented to the emergency department for evaluation back/chest pain radiating to his left arm. He reports emergency room yesterday and are intermittent. He reports that it has since become more constant. Laboratory studies were obtainedRevealing no significant leukocytosis, normal coagulation studies troponin slightly elevated at 0.036, BNP of 2860. Chest x- ray obtained shows right-sided airspace opacity. A CT of the thorax to evaluate the aorta was performed which shows no evidence of aortic dissection. Repeat EKG was obtained along with repeat troponin which was 0.038. The case was discussed with cardiology by my attending Dr. Mendes a heparin drip was recommended. Patient will be admitted. Results were discussed with the patient who is understanding agreeable plan. Case was discussed with Dr. Gee who is accepting of the admission. Undiagnosed new problem with uncertain prognosis? @ -No Drug Therapy requiring intensive monitoring for toxicity (Heparin, Nitro, Ins ulin, Cardizem)? @ -Heparin drip Were any procedures done? @ -No Diagnosis/symptom? @ -Chest pain, back pain, NSTEMI Acute, or Chronic, or Acute on Chronic? @ -Acute Uncomplicated (without systemic symptoms) or Complicated (systemic symptoms)? @ -Complicated Side effects of treatment? @ -No Exacerbation, Progression, or Severe Exacerbation? @ -No Poses a threat to life or bodily function? How? (Chest pain, USA, CO, pneumonia, PE, COPD, DKA, ARF, appy, cholecystitis, CVA, Diverticulitis, Homicidal, Suicidal, threat to staff... and all critical care pts) @ -No - Lab Data Result diagrams: 10/24/24 17:52 10/24/24 17:52 Lab Results 10/24/24 10/24/24 10/24/24 Range/Units 17:52 17:52 17:52 WBC 7.6 (3.8-10.6) k/uL RBC 5.16 (4.30-5.90) m/uL Hgb 13.0 (13.0-17.5) gm/dL Hct 42.6 (39.0-53.0) % MCV 82.6 (80.0-100.0) fL MCH 25.3 (25.0-35.0) pg MCHC 30.6 L (31.0-37.0) g/dL RDW 18.6 H (11.5-15.5) % Plt Count 168 (150-450) k/uL MPV 8.8 Neutrophils % 69 % Lymphocytes % 17 % Monocytes % 10 % Eosinophils % 3 % Basophils % 0 % Neutrophils # 5.2 (1.3-7.7) k/uL Lymphocytes # 1.3 (1.0-4.8) k/uL Monocytes # 0.8 (0-1.0) k/uL Eosinophils # 0.2 (0-0.7) k/uL Basophils # 0.0 (0-0.2) k/uL Hypochromasia Marked Anisocytosis Slight Microcytosis Slight PT 11.0 (10.0-12.5) sec INR 1.0 (<1.2) APTT 22.5 (22.0-30.0) sec Sodium 136 L (137-145) mmol/L Potassium 4.3 (3.5-5.1) mmol/L Chloride 102 (98-107) mmol/L Carbon Dioxide 30 (22-30) mmol/L Anion Gap 4 mmol/L BUN 23 H (9-20) mg/dL Creatinine 0.88 (0.66-1.25) mg/dL Est GFR (CKD-EPI)AfAm >90 (>60 ml/min/1.73 sqM) Est GFR (CKD-EPI)NonAf 89 (>60 ml/min/1.73 sqM) Glucose 79 (74-99) mg/dL Plasma Lactic Acid Tomy (0.7-2.0) mmol/L Calcium 8.5 (8.4-10.2) mg/dL Magnesium 2.1 (1.6-2.3) mg/dL Total Bilirubin 0.6 (0.2-1.3) mg/dL AST 35 (17-59) U/L ALT 29 (4-49) U/L Alkaline Phosphatase 107 (38-126) U/L Troponin I (0.000-0.034) ng/mL NT-Pro-B Natriuret Pep 2860 pg/mL Total Protein 6.5 (6.3-8.2) g/dL Albumin 3.6 (3.5-5.0) g/dL 10/24/24 10/24/24 10/24/24 Range/Units 17:52 17:52 20:53 WBC (3.8-10.6) k/uL RBC (4.30-5.90) m/uL Hgb (13.0-17.5) gm/dL Hct (39.0-53.0) % MCV (80.0-100.0) fL MCH (25.0-35.0) pg MCHC (31.0-37.0) g/dL RDW (11.5-15.5) % Plt Count (150-450) k/uL MPV Neutrophils % % Lymphocytes % % Monocytes % % Eosinophils % % Basophils % % Neutrophils # (1.3-7.7) k/uL Lymphocytes # (1.0-4.8) k/uL Monocytes # (0-1.0) k/uL Eosinophils # (0-0.7) k/uL Basophils # (0-0.2) k/uL Hypochromasia Anisocytosis Microcytosis PT (10.0-12.5) sec INR (<1.2) APTT (22.0-30.0) sec Sodium (137-145) mmol/L Potassium (3.5-5.1) mmol/L Chloride (98-107) mmol/L Carbon Dioxide (22-30) mmol/L Anion Gap mmol/L BUN (9-20) mg/dL Creatinine (0.66-1.25) mg/dL Est GFR (CKD-EPI)AfAm (>60 ml/min/1.73 sqM) Est GFR (CKD-EPI)NonAf (>60 ml/min/1.73 sqM) Glucose (74-99) mg/dL Plasma Lactic Acid Tomy 1.4 (0.7-2.0) mmol/L Calcium (8.4-10.2) mg/dL Magnesium (1.6-2.3) mg/dL Total Bilirubin (0.2-1.3) mg/dL AST (17-59) U/L ALT (4-49) U/L Alkaline Phosphatase (38-126) U/L Troponin I 0.036 H* 0.038 H* (0.000-0.034) ng/mL NT-Pro-B Natriuret Pep pg/mL Total Protein (6.3-8.2) g/dL Albumin (3.5-5.0) g/dL Disposition Clinical Impression: NSTEMI (non-ST elevated myocardial infarction) Disposition: ADMITTED IP TO THIS HOSP Condition: Stable Is patient prescribed a controlled substance at d/c from ED?: No
[2024-10-24 18:09] LABS: Partial Thromboplastin Time 22.5 sec (22.0-30.0)
[2024-10-24] MEDS: MORPHINE SULFATE 4 MG/ML SYRINGE IVP STA ×2 (18:09→20:25)
--- NOTE | 2024-10-24 18:11 | XR ---
EXAMINATION TYPE: XR chest 2V DATE OF EXAM: 10/24/2024 6:04 PM COMPARISON: Chest radiographs from 10/22/2024 CLINICAL INDICATION: Male, 69 years old with history of difficulty breathing; [facility] TECHNIQUE: XR chest 2V Frontal and lateral views of the chest. FINDINGS: Lungs/Pleura: Persistent right lower lobe airspace opacities and small right pleural effusion. Blunti ng of the right costophrenic angle. The left lung demonstrates no evidence of pleural effusion, focal consolidation, or pneumothorax. Pulmonary vascularity: Unremarkable. Heart/mediastinum: Cardiomediastinal silhouette is unremarkable. Musculoskeletal: No acute osseous pathology. Midline sternotomy wires are noted. IMPRESSION: Right lower lobe airspace opacities correlate for pneumonia.. Short-term follow-up until resolution r ecommended to exclude other etiologies such as malignancy. Small right pleural effusion also felt to be present. [facility], , 10/24/2024 6:08 PM
[2024-10-24 18:19] LABS: ALT 29 U/L (4-49); AST 35 U/L (17-59); African American GFR (CKD) >90 (>60 ml/min/1.73 sqM); Albumin 3.6 g/dL (3.5-5.0); Alkaline Phosphatase 107 U/L (38-126); Anion Gap 4 mmol/L; Blood Urea Nitrogen 23 mg/dL (9-20); Calcium 8.5 mg/dL (8.4-10.2); Carbon Dioxide 30 mmol/L (22-30); Chloride 102 mmol/L (98-107); Glucose 79 mg/dL (74-99); Magnesium 2.1 mg/dL (1.6-2.3); Non-African American GFR(CKD) 89 (>60 ml/min/1.73 sqM); Potassium 4.3 mmol/L (3.5-5.1); Sodium 136 mmol/L (137-145); Total Bilirubin 0.6 mg/dL (0.2-1.3); Total Protein 6.5 g/dL (6.3-8.2)
[2024-10-24 18:27] LABS: NT-Pro-B-Type Natriuretic Pept 2860 pg/mL
[2024-10-24] MEDS ORDERED: NITROGLYCERIN SL TABS 0.4 MG TAB SUBLINGUAL PRN (20:16)
--- NOTE | 2024-10-24 21:16 | CT ---
EXAMINATION TYPE: CT angio thor/abd pel aorta CT DLP: 1752.6 mGycm, Automated exposure control for dose reduction was used. DATE OF EXAM: 10/24/2024 8:57 PM COMPARISON: CT angiogram chest 09/25/2024. CLINICAL INDICATION:Male, 69 years old with history of back pain; PHH, posterior chest pain TECHNIQUE: Dissection protocol: Multiple axial CT images of the chest, abdomen, and pelvis were obtai lorena prior and to the administration of IV contrast. 3-D reformats and maximum intensity projection fo rmat were performed on a separate workstation. Contrast used:100 mL of Isovue 370 without and with IV Contrast, Oral contrast used: FINDINGS: ARTERIAL VASCULATURE: The thoracic aorta is normal in course and caliber. There is no evidence of aor tic dissection, aneurysm or acute aortic injury. Great arch vessels patent and normal in course and c aliber. Prior CABG changes are again identified. No evidence of abdominal aortic aneurysm. Moderate a therosclerotic disease of the aorta. PULMONARY ARTERIAL VASCULATURE: Normal caliber. No evidence of filling defect to suggest pulmonary em bolus. VENOUS SYSTEM: Unremarkable. Lungs/pleura: Small right pleural effusion is identified. Heart: Within normal limits. Mediastinum: No gross evidence of adenopathy. Lower Neck: No significant findings. Abdomen: Liver: Nodular contour of the liver. Gallbladder and Bile ducts: Gallbladder surgically absent. No evidence of biliary duct dilation. Pancreas: Unremarkable. Spleen: Unremarkable. Adrenal glands: Unremarkable. Kidneys and Ureters: Unremarkable. No hydronephrosis. Bladder: Unremarkable. Reproductive: Unremarkable. Stomach and Bowel: No evidence of bowel obstruction. Peritoneum: No evidence of pneumoperitoneum, free fluid, or adenopathy. Musculoskeletal: No acute osseous process. Posterior fusion changes at L5-S1. Lymph nodes: No evidence of lymphadenopathy. Abdominal wall/soft tissues: Unremarkable. IMPRESSION: 1. No evidence for aortic dissection or aneurysm. 2. Post-CABG changes. 3. Cirrhotic changes of the liver. 4. Small right pleural effusion. [facility], , 10/24/2024 9:14 PM
[2024-10-24] MEDS: ONDANSETRON 4 MG/2 ML VIAL IVP STA (22:13)
[2024-10-24] MEDS: HYDROmorphone 0.5 MG/0.5 ML SYRINGE IVP STA (22:13)
[2024-10-24] MEDS: NITROGLYCERIN OINT 1 INCH/GM PACKET TOPICAL STA (22:41)
[2024-10-24] MEDS: SODIUM CHLORIDE 0.9% 500 ML 500 ML IV ONE (22:43)
[2024-10-24] MEDS: HEPARIN SOD,PORK IN 0.45% NACL 25,000 UNIT in 0.45% NACL 1 250ML.BAG IV SCH (22:49)
[2024-10-24] MEDS: HEPARIN SODIUM 1,000 UN/ML (10ML VL) IV ONE (22:49)
[2024-10-25] MEDS ORDERED: NALOXONE 0.4 MG/ML 1 ML VIAL IV PRN
[2024-10-25 05:22] LABS: Anisocytosis Slight; Basophils % (A) 0 %; Eosinophils # (A) 0.3 k/uL (0-0.7); Eosinophils % (A) 4 %; HCT 40.1 % (39.0-53.0); HGB 12.5 gm/dL (13.0-17.5); Hypochromasia Marked; Lymphocytes # (A) 1.6 k/uL (1.0-4.8); Lymphocytes % (A) 21 %; MCH 25.9 pg (25.0-35.0); MCHC 31.3 g/dL (31.0-37.0); Mean Platelet Volume 9.4; Microcytosis Slight; Monocytes # (A) 0.7 k/uL (0-1.0); Monocytes % (A) 9 %; Neutrophils % (A) 64 %; Platelet Count 153 k/uL (150-450); RBC 4.83 m/uL (4.30-5.90); RDW 18.4 % (11.5-15.5); WBC 7.8 k/uL (3.8-10.6)
[2024-10-25 05:35] LABS: Partial Thromboplastin Time 35.3 sec (22.0-30.0)
[2024-10-25] MEDS: MORPHINE SULFATE 4 MG/ML SYRINGE IV PRN (06:43)
[2024-10-25] MEDS: HEPARIN SODIUM 1,000 UN/ML (10ML VL) IV PRN (06:53)
[2024-10-25 08:43] LABS: Chol/HDL Ratio 2.86 Ratio; LDL Cholesterol,Calculated 60.5 mg/dL (0.0-131.0)
[2024-10-25] MEDS: ASPIRIN 325 MG TAB PO SCH (08:48)
[2024-10-25] MEDS: TORSEMIDE 20 MG TAB PO SCH (13:10)
[2024-10-25] MEDS: METOPROLOL SUCCINATE (ER) 25 MG TAB.ER.24H PO SCH (13:10)
[2024-10-25] MEDS: SACUBITRIL/VALSARTAN 24 MG-26 MG TABLET PO SCH (13:10)
[2024-10-25] MEDS: APIXABAN 5 MG TAB PO SCH (13:10)
[2024-10-25] MEDS: DAPAGLIFLOZIN PROPANEDIOL 10 MG TABLET PO SCH (13:11)
[2024-10-25] MEDS: SPIRONOLACTONE 25 MG TAB PO SCH (13:11)
[2024-10-25] MEDS: LIDOCAINE 4% PATCH TOPICAL SCH (13:12)
[2024-10-25] MEDS: EZETIMIBE 10 MG TAB PO SCH (13:12)
--- NOTE | 2024-10-25 14:10 | P.CRDCN ---
History of Present Illness History of present illness: HISTORY OF PRESENT ILLNESS: This is a 69-year-old male with a past medical history significant for coronary artery disease, congestive heart failure, ischemic cardiomyopathy, paroxysmal a trial fibrillation, hypertension, and hyperlipidemia. Patient follows in the office with Dr. Wiggins. We have been asked to see the patient in consultation for congestive heart failure Patient examined at the bedside in the emergency room. Patient states he presented to the hospital with a chief complaint of back pain. Patient states this pain has been ongoing and is not a new pain. He also reports feeling slightly short of breath and congested. It is noted that the patient was recently hospitalized for congestive heart failure and acute kidney injury. He left AGAINST MEDICAL ADVICE on 10/22/2024. DIAGNOSTICS: - EKG reveals mechanism with nonspecific ST-T wave changes. LVH. - Chest xray right lower lobe airspace opacities correlate for pneumonia. Small right pleural effusion also felt to be present. - Laboratory data: WBC 7.8. Hemoglobin 12.5. Platelet count 153. Sodium 136. Potassium 4.3. BUN 23. Creatinine 0.88. Troponin 0.036. 0.03. 0.041. proBNP 2860. - Current home cardiac medications include Eliquis 5 mg twice a day, aspirin 81 mg daily, Farxiga 10 mg daily, Zetia 10 mg daily, metoprolol succinate 25 mg daily, Entresto 24-26 mg twice a day, Aldactone 12.5 mg daily - Most recent echocardiogram obtained in 09/06/2024 reveals EF 20 to 25%, apical and anterior apical distal anterior septal hypokinesis, moderate to severe MR, mild AR REVIEW OF SYSTEMS: At the time of my exam: CONSTITUTIONAL: Denies fever or chills. HEENT: Denies blurred vision, vision changes, or eye pain. Denies hemoptysis CARDIOVASCULAR: Denies chest pain. Denies orthopnea. Denies PND. Denies palpitations RESPIRATORY: Denies shortness of breath. GASTROINTESTINAL: Denies abdominal pain. Denies nausea or vomiting. HEMATOLOGIC: Denies bleeding disorders. GENITOURINARY: Denies any blood in urine. SKIN: Denies pruitis. Denies rash. PHYSICAL EXAM: VITAL SIGNS: Reviewed. GENERAL: Well-developed in no acute distress. HEENT: Head is normocephalic. Pupils are equal, round. Sclerae anicteric. Mucous membranes of the mouth are moist. Neck supple. No JVD or thyromegaly LUNGS: Respirations even and unlabored. Lungs with expiratory wheezing noted. HEART: Regular rate and rhythm. S1 and S2 heard. ABDOMEN: Soft. Nondistended. Nontender. EXTREMITIES: Normal range of motion. No clubbing or cyanosis. Peripheral pulses intact. No lower extremity edema NEUROLOGIC: Awake and alert. Oriented x 3. ASSESSMENT: Back pain, musculoskeletal Shortness of breath Acute on chronic heart failure with reduced EF Elevated troponins, flat, type II AK secondary to oxygen supply/demand mismatch Coronary artery disease with previous CABG 20 years ago and redo CABG x 2, April 2024 Ischemic cardiomyopathy 20-25% History of bilateral pleural effusions History of multiple thoracentesis, most recent on 09/07/2024 right side Paroxysmal atrial fibrillation Hypertension Hyperlipidemia PLAN: No need to obtain echocardiogram as this was performed in August 2024 Discontinue IV heparin. Resume Eliquis. Resume home cardiac medications Add Demadex 10 mg daily Add lidocaine patch daily for musculoskeletal back pain Daily weights, accurate intake and output, and monitoring of kidney function Further recommendations pending patient course Nurse practitioner note has been reviewed by physician. Signing provider agrees with the documented findings, assessment, and plan of care documented by SUPERVISOR SHRIMP POND as a scribe. Past Medical History Past Medical History: Coronary Artery Disease (CAD), Chest Pain / Angina, Heart Failure, COPD, GERD/Reflux, Hyperlipidemia, Hypertension, Myocardial Infarction (AK), Osteoarthritis (OA), Sleep Apnea/CPAP/BIPAP Additional Past Medical History / Comment(s): Chronic back pain, left leg weakness. 4LNC. States unsure about having had a heart attack. Last Myocardial Infarction Date:: 11/11/22 History of Any Multi-Drug Resistant Organisms: None Reported Past Surgical History: Back Surgery, Cholecystectomy, Coronary Bypass/CABG, Heart Catheterization With Stent Additional Past Surgical History / Comment(s): Back surgery X2 with cage, left tennis elbow surgery, heart stents X7, colonoscopy. emergency CABG [facility] [place], thrombectomy. April Past Anesthesia/Blood Transfusion Reactions: No Reported Reaction Additional Past Anesthesia/Blood Transfusion Reaction / Comment(s): Pt received blood during CABG without reaction. Date of Last Stent Placement:: Oct 2022 Past Psychological History: Anxiety, Depression, PTSD Smoking Status: Former smoker, Vaper Past Alcohol Use History: None Reported Past Drug Use History: None Reported - Past Family History Father Family Medical History: Coronary Artery Disease (CAD), Deep Vein Thrombosis (DVT), GERD/Reflux, Hyperlipidemia, Myocardial Infarction (AK) Additional Family Medical History / Comment(s): Father of a AK in his 80's. Mother Family Medical History: Coronary Artery Disease (CAD), Myocardial Infarction (AK) Additional Family Medical History / Comment(s): Mother of a AK. Brother(s) Family Medical History: Myocardial Infarction (AK) Additional Family Medical History / Comment(s): . Sister(s) Family Medical History: Cancer, Diabetes Mellitus Additional Family Medical History / Comment(s): Lung cancer. Other sister had Diabetes. Medications and Allergies Home Medications Medication Instructions Recorded Confirmed Type Ezetimibe [Zetia] 10 mg PO DAILY #90 tab 11/18/22 10/24/24 Rx Fluticasone Nasal [place] [Flonase 1 spray EA NOSTRIL BID PRN 01/27/23 10/24/24 History Nasal [place]] Cyclobenzaprine [Flexeril] 10 mg PO BID 08/21/23 10/24/24 History Sodium Bicarbonate Tab 650 mg PO TID #100 tab 01/25/24 10/24/24 Rx Ergocalciferol [Vitamin D2 (1250 1,250 mcg PO Q14D 05/10/24 10/24/24 History Mcg = 25686 Iu)] Ferrous Sulfate [Iron (65 MG 325 mg PO DAILY 05/10/24 10/24/24 History Elemental)] Gabapentin [Neurontin] 100 mg PO TID 05/10/24 10/24/24 History Dapagliflozin Propanediol [Farxiga] 10 mg PO DAILY tab 05/24/24 10/24/24 Rx Ipratropium-Albuterol Nebulize 3 ml INHALATION RT-Q2H PRN each 05/24/24 1 12/25/23 Rx [Duoneb 0.5 mg-3 mg/3 ml Soln] ALPRAZolam [Xanax] 2 mg PO HS 07/27/24 10/24/24 History Albuterol Inhaler [Ventolin Hfa 2 puff INHALATION RT-Q6H PRN 09/05/24 10/24/24 History Inhaler] Aspirin EC [Ecotrin Low Dose] 81 mg PO DAILY 09/05/24 10/24/24 History Folic Acid 1 mg PO DAILY 09/05/24 10/24/24 History Omeprazole [PriLOSEC] 20 mg PO DAILY 09/05/24 10/24/24 History Tamsulosin [Flomax] 0.4 mg PO DAILY 09/05/24 10/24/24 History allopurinoL [Zyloprim] 100 mg PO DAILY 09/05/24 10/24/24 History rOPINIRole HCL [Requip] 0.25 mg PO HS 09/05/24 10/24/24 History Apixaban [Eliquis] 5 mg PO BID #60 tab 09/09/24 10/24/24 Rx Metoprolol Succinate (ER) [Toprol 25 mg PO DAILY 30 Days #30 tab 09/11/24 10/24/24 Rx XL] Sacubitril/Valsartan [Entresto 24 1 tab PO BID 09/25/24 10/24/24 History mg-26 mg Tablet] oxyCODONE-APAP 10-325MG [Percocet 1 tab PO Q4HR PRN 09/25/24 10/24/24 History 10-325 mg] Spironolactone [Aldactone] 12.5 mg PO DAILY 10/17/24 10/24/24 History Allergies Allergy/AdvReac Type Severity Reaction Status Date / Time latex Allergy Swelling Verified 10/24/24 19:22 atorvastatin [From Lipitor] AdvReac JOINT PAIN Verified 10/24/24 19:22 Physical Exam Vitals: Vital Signs Temp Pulse Resp BP Pulse Ox 10/25/24 06:41 80 18 108/66 94 L 10/25/24 01:46 86 18 121/65 96 10/24/24 22:05 93 18 108/60 95 10/24/24 18:13 85 18 98/70 96 10/24/24 17:01 97.6 F 83 22 122/72 99 Intake and Output 10/24/24 10/25/24 10/25/24 22:59 06:59 14:59 Intake Total 76.835 Balance 76.835 Intake: Intake, IV Titration 76.835 Amount Heparin Sod,Pork in 0.45% 76.835 NaCl 25,000 unit In 0.45 % NaCl 1 250ml.bag @ 12 UNITS/KG/HR 9.525 mls/hr IV .Q24H [facility] Rx#: [id number] Other: Weight 79.379 kg Results 10/25/24 05:06 10/24/24 17:52 Cardiac Enzymes 10/24/24 10/24/24 10/24/24 Range/Units 17:52 17:52 20:53 AST 35 (17-59) U/L Troponin I 0.036 H* 0.038 H* (0.000-0.034) ng/mL 10/24/24 Range/Units 23:48 AST (17-59) U/L Troponin I 0.041 H* (0.000-0.034) ng/mL Coagulation 10/24/24 10/25/24 Range/Units 17:52 05:06 PT 11.0 11.0 (10.0-12.5) sec APTT 22.5 35.3 H (22.0-30.0) sec CBC 10/24/24 10/25/24 Range/Units 17:52 05:06 WBC 7.6 7.8 (3.8-10.6) k/uL RBC 5.16 4.83 (4.30-5.90) m/uL Hgb 13.0 12.5 L (13.0-17.5) gm/dL Hct 42.6 40.1 (39.0-53.0) % Plt Count 168 153 (150-450) k/uL Comprehensive Metabolic Panel 10/24/24 Range/Units 17:52 Sodium 136 L (137-145) mmol/L Potassium 4.3 (3.5-5.1) mmol/L Chloride 102 (98-107) mmol/L Carbon Dioxide 30 (22-30) mmol/L BUN 23 H (9-20) mg/dL Creatinine 0.88 (0.66-1.25) mg/dL Glucose 79 (74-99) mg/dL Calcium 8.5 (8.4-10.2) mg/dL AST 35 (17-59) U/L ALT 29 (4-49) U/L Alkaline Phosphatase 107 (38-126) U/L Total Protein 6.5 (6.3-8.2) g/dL Albumin 3.6 (3.5-5.0) g/dL Current Medications Generic Name Dose Route Start Last Admin Trade Name Freq PRN Reason Stop Dose Admin Aspirin 325 mg 10/25/24 09:00 Aspirin 325 Mg Tab PO DAILY [facility] Heparin Sodium (Porcine) 0 unit 10/24/24 22:19 10/25/24 06:53 Heparin Sodium 1,000 Un/Ml (10ml Vl) IV 1,984.47 unit PER PROTOCOL PRN Administration Low PTT Protocol Heparin Sodium/Sodium Chloride 250 mls @ 9.525 mls/hr 10/24/24 22:30 10/25/24 06:53 25,000 unit/ Sodium Chloride IV 14 units/kg/hr .Q24H [facility] 11.113 mls/hr Titration Protocol 12 UNITS/KG/HR Morphine Sulfate 4 mg 10/25/24 00:00 10/25/24 06:43 Morphine Sulfate 4 Mg/Ml Syringe IV 4 mg Q4HR PRN Administration Severe Pain (Scale 7 to 10) Morphine Sulfate 2 mg 10/25/24 00:02 Morphine Sulfate 2 Mg/Ml Syringe IVP Q4HR PRN Breakthrough Pain Naloxone HCl 0.2 mg 10/25/24 00:00 Naloxone 0.4 Mg/Ml 1 Ml Vial IV Q2M PRN Opioid Reversal Nitroglycerin 0.4 mg 10/24/24 20:16 Nitroglycerin Sl Tabs 0.4 Mg Tab SUBLINGUAL Q5M PRN Chest Pain Intake and Output 10/24/24 10/25/24 10/25/24 22:59 06:59 14:59 Intake Total 76.835 Balance 76.835 Intake: Intake, IV Titration 76.835 Amount Heparin Sod,Pork in 0.45% 76.835 NaCl 25,000 unit In 0.45 % NaCl 1 250ml.bag @ 12 UNITS/KG/HR 9.525 mls/hr IV .Q24H [facility] Rx#: [id number] Other: Weight 79.379 kg 10/25/24 05:06 10/24/24 17:52
[2024-10-25] MEDS: SODIUM BICARBONATE TAB 650 MG TAB PO SCH (16:24)
[2024-10-25] MEDS: GABAPENTIN 100 MG CAP PO SCH (16:24)
[2024-10-25] MEDS: IPRATROPIUM-ALBUTEROL 3 ML NEB INHALATION PRN (18:24)
[2024-10-25 19:47] VITALS: RESP 18
[2024-10-25] MEDS: oxyCODONE-APAP 10-325MG 1 EACH TAB PO PRN (20:05)
[2024-10-25] MEDS: ALPRAZolam 1 MG TAB PO SCH (21:01)
[2024-10-25] MEDS: MORPHINE SULFATE 2 MG/ML SYRINGE IVP PRN (23:46)
[2024-10-26] MEDS: PANTOPRAZOLE 40 MG TABLET PO SCH (06:28)
[2024-10-26] MEDS: TAMSULOSIN 0.4 MG CAP.ER.24H PO SCH (08:56)
[2024-10-26] MEDS: ASPIRIN 81 MG PO SCH (08:57)
[2024-10-26] MEDS ORDERED: ASPIRIN 81 MG PO SCH (09:00)
[2024-10-26 11:01] LABS: African American GFR (CKD) >90 (>60 ml/min/1.73 sqM); Anion Gap 9 mmol/L; Blood Urea Nitrogen 18 mg/dL (9-20); Calcium 8.6 mg/dL (8.4-10.2); Carbon Dioxide 25 mmol/L (22-30); Chloride 100 mmol/L (98-107); Glucose 122 mg/dL (74-99); Non-African American GFR(CKD) 78 (>60 ml/min/1.73 sqM); Potassium 4.2 mmol/L (3.5-5.1); Sodium 134 mmol/L (137-145)
--- NOTE | 2024-10-26 12:58 | P.PN ---
Subjective HISTORY OF PRESENT ILLNESS: This is a 69-year-old male with a past medical history significant for coronary artery disease, congestive heart failure, ischemic cardiomyopathy, paroxysmal atrial fibrillation, hypertension, and hyperlipidemia. Patient follows in the office with Dr. Wiggins. We have been asked to see the patient in consultation for congestive heart failure Patient examined at the bedside in the emergency room. Patient states he presented to the hospital with a chief complaint of back pain. Patient states this pain has been ongoing and is not a new pain. He also reports feeling slightly short of breath and congested. It is noted that the patient was recently hospitalized for congestive heart failure and acute kidney injury. He left AGAINST MEDICAL ADVICE on 10/22/2024. DIAGNOSTICS: - EKG reveals mechanism with nonspecific ST-T wave changes. LVH. - Chest xray right lower lobe airspace opacities correlate for pneumonia. Small right pleural effusion also felt to be present. - Laboratory data: WBC 7.8. Hemoglobin 12.5. Platelet count 153. Sodium 136. Potassium 4.3. BUN 23. Creatinine 0.88. Troponin 0.036. 0.03. 0.041. proBNP 2860. - Current home cardiac medications include Eliquis 5 mg twice a day, aspirin 81 mg daily, Farxiga 10 mg daily, Zetia 10 mg daily, metoprolol succinate 25 mg daily, Entresto 24-26 mg twice a day, Aldactone 12.5 mg daily - Most recent echocardiogram obtained in 09/06/2024 reveals EF 20 to 25%, apical and anterior apical distal anterior septal hypokinesis, moderate to severe MR, mild AR 10/26/2024 Patient examined this morning at the bedside. Patient currently denies chest pain or pressure. She denies shortness of breath. Vital signs are stable. Patient is hoping to be discharged home today. PHYSICAL EXAM: VITAL SIGNS: Reviewed. GENERAL: Well-developed in no acute distress. HEENT: Head is normocephalic. Pupils are equal, round. Sclerae anicteric. Mucous membranes of the mouth are moist. Neck supple. No JVD or thyromegaly LUNGS: Respirations even and unlabored. Lungs with mild expiratory wheezing noted. HEART: Regular rate and rhythm. S1 and S2 heard. ABDOMEN: Soft. Nondistended. Nontender. EXTREMITIES: Normal range of motion. No clubbing or cyanosis. Peripheral pulses intact. No lower extremity edema NEUROLOGIC: Awake and alert. Oriented x 3. ASSESSMENT: Back pain, musculoskeletal Shortness of breath Acute on chronic heart failure with reduced EF Elevated troponins, flat, type II ND secondary to oxygen supply/demand mismatch Coronary artery disease with previous CABG 20 years ago and redo CABG x 2, April 2024 Ischemic cardiomyopathy 20-25% History of bilateral pleural effusions History of multiple thoracentesis, most recent on 09/07/2024 right side Paroxysmal atrial fibrillation Hypertension Hyperlipidemia PLAN: No need to obtain echocardiogram as this was performed in August 2024 Continue current cardiac medications Patient is stable for discharge home today from a cardiac standpoint Further recommendations pending patient course Nurse practitioner note has been reviewed by physician. Signing provider agrees with the documented findings, assessment, and plan of care documented by CRIMPER OPERATOR as a scribe. Objective - Vital Signs Vital signs: Vital Signs Temp 97.9 F 10/26/24 11:22 Pulse 76 10/26/24 11:22 Resp 18 10/26/24 11:22 BP 92/55 10/26/24 11:22 Pulse Ox 97 10/26/24 11:22 FiO2 Intake & Output 10/25/24 10/26/24 10/26/24 18:59 06:59 18:59 Intake Total 700 250 Output Total 1900 Balance -1200 250 Weight 90 kg Intake: IV 10 Invasive Line 1 10 Oral 700 240 Output: Urine 1900 Other: Voiding Method Urinal Urinal - Labs CBC & Chem 7: 10/25/24 05:06 10/26/24 09:06 Labs: Abnormal Lab Results - Last 24 Hours (Table) 10/25/24 10/26/24 Range/Units 13:05 09:06 APTT 41.2 H (22.0-30.0) sec Sodium 134 L (137-145) mmol/L Glucose 122 H (74-99) mg/dL
[2024-10-26 15:43] VITALS: BP 90/44; PULSE 63; TEMP 98
--- NOTE | 2024-10-28 09:10 | DS ---
DISCHARGE SUMMARY CHIEF COMPLAINT: Back pain, chest pain, and shortness of breath. HISTORY OF PRESENT ILLNESS AND PHYSICAL EXAMINATION: Details of this man's history and physical can be found in the initial workup. LABORATORY STUDIES: While he is in the hospital, he had laboratory studies, details of which can be found in the laboratory section of his chart. COURSE IN THE HOSPITAL: After admission, he was placed on bedrest and was started on intravenous fluids and analgesics for his back. He was seen by Cardiology. His heart failure was addressed. He was doing well and wanted to be discharged on the morning of the and he will go home on his usual activity, medications, and follow up in the office in several days. FINAL DIAGNOSES: 1. Acute congestive heart failure. 2. Chronic congestive heart failure. 3. Acute coronary syndrome. 4. Chronic obstructive pulmonary disease. 5. Right pleural effusion. OPERATIONS: None. CONSULTATIONS: Cardiology. He is improved. MMCECILL / IJDale: [id number] /
--- NOTE | 2024-10-28 09:11 | HP ---
HISTORY AND PHYSICAL CHIEF COMPLAINT: Shortness of breath, chest pain, back pain. HISTORY OF PRESENT ILLNESS: This is another admission for this 69-year-old white male who has been going in and out of the hospital lately almost on an every other day basis. He has a history of extensive and advanced coronary artery disease, having gone through 2 coronary artery bypass grafts and numerous stenting. He is in chronic heart failure now. He continued to smoke. He does have a problem with low back pain and arthritis. He came to the emergency room with complaints of shortness of breath and chest pain, as well as low back pain and he was admitted. PHYSICAL EXAM: VITAL SIGNS: Unremarkable. CHEST: Demonstrated poor breath sounds at the right base. CARDIAC: Demonstrated S3, S4. ABDOMEN: Soft and nontender without any masses. EXTREMITIES: Normal. NEUROLOGICAL: Intact. He is admitted to the hospital with diagnoses: 1. Unstable angina pectoris. 2. Coronary artery disease. 3. Atherosclerotic cardiomyopathy. 4. Congestive heart failure. 5. Low back pain. PLAN: 1. Bed rest. 2. IV fluids. 3. Serial EKGs and enzymes. 4. BMP. 5. Cardiology consult. MMODL / IJN: [id number] /
--- NOTE | 2024-10-28 12:17 | PN ---
PROGRESS NOTE DATE OF SERVICE: 10/25/2024 CHIEF COMPLAINT: Chest pain, back pain, and CHF. HISTORY OF PRESENT ILLNESS: This is another reason of admission for this gentleman, who is complaining a lot of back pain. His BNP is elevated as well as troponin. He has had no fever, chills, cough, hemoptysis, etc. He remains short of breath. PHYSICAL EXAMINATION: HEAD, EARS, EYES, NOSE, MOUTH, AND THROAT: Normal. CHEST: Demonstrates poor breath sounds, particularly at the right base. CARDIAC: Demonstrates an S3 and S4. ABDOMEN: Soft, nontender. EXTREMITIES: Normal and neurologically intact. ASSESSMENT: He is admitted to the hospital with diagnoses of; 1. Acute on chronic congestive heart failure. 2. Unstable angina pectoris. 3. Advanced coronary artery disease. 4. Low back pain. 5. Chronic obstructive pulmonary disease. PLAN: 1. Repeat cardiac enzymes and EKG. 2. Cardiology consult. MMODL / NATHALYN: [id number] /
== END 2024-10-26 18:26 | disposition home or self-care (01) ==
LOC: EC 16:47 → 3SCARD 22:20
PROVIDERS: ADMIT Family Medicine; ATTEND Family Medicine
DX: I50.23 Acute on chronic systolic (congestive) heart failure (principal); I21.4 Non-ST elevation (NSTEMI) myocardial infarction; I25.10 Atherosclerotic heart disease of native coronary artery without angina pectoris; J44.9 Chronic obstructive pulmonary disease, unspecified; I11.0 Hypertensive heart disease with heart failure; I48.0 Paroxysmal atrial fibrillation; K74.60 Unspecified cirrhosis of liver; I25.5 Ischemic cardiomyopathy; E78.5 Hyperlipidemia, unspecified; R07.9 Chest pain, unspecified; M54.50 Low back pain, unspecified; F43.10 Post-traumatic stress disorder, unspecified; F32.A Depression, unspecified; F41.9 Anxiety disorder, unspecified; Z79.82 Long term (current) use of aspirin; Z79.84 Long term (current) use of oral hypoglycemic drugs; Z79.01 Long term (current) use of anticoagulants; Z79.899 Other long term (current) drug therapy; Z91.040 Latex allergy status; Z87.891 Personal history of nicotine dependence; Z88.8 Allergy status to other drugs, medicaments and biological substances; Z95.1 Presence of aortocoronary bypass graft; Z95.5 Presence of coronary angioplasty implant and graft; Z82.49 Family history of ischemic heart disease and other diseases of the circulatory system
CPT/HCPCS: 96376 ×2; 96365; 96366; 96372; 96375; 99285; 36415; 94640 ×2; 93005; 83880; 80061; 80053; 80048; 83605; 83735; 84484; 85025 ×2; 85610 ×2; 85730 ×2; 87636; 71046; 71275; 74174; G0378 ×2; J2270 ×3; J1644 ×3; Q9967

== ENCOUNTER 2024-11-01 03:15 | Emergency (ER) | payer MEDICARE, OTHER ==
[2024-11-01] MEDS: ORPHENADRINE 30 MG/ML 2 ML VIAL IM STA (03:52)
[2024-11-01] MEDS: HYDROcodone/APAP 5-325MG 1 EACH TAB PO STA ×2 (03:54→09:41)
--- NOTE | 2024-11-01 03:57 | ED ---
General Adult HPI <Apollo Corral - Last Filed: 11/01/24 08:42> - General Source: patient Mode of arrival: wheelchair Limitations: no limitations <RickiAlisson - Last Filed: 11/01/24 18:37> - General Chief complaint: Back Pain/Injury Stated complaint: Back pain Time Seen by Provider: 11/01/24 03:24 - History of Present Illness Initial comments: Patient is a 69-year-old with a past medical history of CAD, heart failure, COPD, GERD, hypertension hyperlipidemia, chronic back pain presenting today for back pain. Patient states he woke up tonight with sharp and aching back pain in the middle of his lower back and difficulty urinating. Patient states that he feels like he is having trouble urinating secondary to the pain. Typically takes Hulbert at home for chronic pain though did not take any prior to arrival today. Denies any recent falls or injuries. Denies saddle anesthesia or stool incontinence. Denies recent injections to spine or history of cancer. No recent spinal surgeries. No fevers, endorses chills. Denies abdominal pain, vomiting, black or bloody stools or diarrhea. The back pain does not radiate to his chest and he denies shortness of breath. No history of kidney stones. Denies hematuria. (Alisson Mendes) - Related Data Home Medications Medication Instructions Recorded Confirmed Fluticasone Nasal [place] [Flonase 1 spray EA NOSTRIL BID PRN 01/27/23 10/24/24 Nasal [place]] Cyclobenzaprine [Flexeril] 10 mg PO BID 08/21/23 10/24/24 Ergocalciferol [Vitamin D2 (1250 1,250 mcg PO Q14D 05/10/24 10/24/24 Mcg = 61637 Iu)] Ferrous Sulfate [Iron (65 MG 325 mg PO DAILY 05/10/24 10/24/24 Elemental)] Gabapentin [Neurontin] 100 mg PO TID 05/10/24 10/24/24 ALPRAZolam [Xanax] 2 mg PO HS 07/27/24 10/24/24 Albuterol Inhaler [Ventolin Hfa 2 puff INHALATION RT-Q6H PRN 09/05/24 10/24/24 Inhaler] Aspirin EC [Ecotrin Low Dose] 81 mg PO DAILY 09/05/24 10/24/24 Folic Acid 1 mg PO DAILY 09/05/24 10/24/24 Omeprazole [PriLOSEC] 20 mg PO DAILY 09/05/24 10/24/24 Tamsulosin [Flomax] 0.4 mg PO DAILY 09/05/24 10/24/24 allopurinoL [Zyloprim] 100 mg PO DAILY 09/05/24 10/24/24 rOPINIRole HCL [Requip] 0.25 mg PO HS 09/05/24 10/24/24 Sacubitril/Valsartan [Entresto 24 1 tab PO BID 09/25/24 10/24/24 mg-26 mg Tablet] oxyCODONE-APAP 10-325MG [Percocet 1 tab PO Q4HR PRN 09/25/24 10/24/24 10-325 mg] Spironolactone [Aldactone] 12.5 mg PO DAILY 10/17/24 10/24/24 Previous Rx's Medication Instructions Recorded Ezetimibe [Zetia] 10 mg PO DAILY #90 tab 11/18/22 Sodium Bicarbonate Tab 650 mg PO TID #100 tab 01/25/24 Dapagliflozin Propanediol [Farxiga] 10 mg PO DAILY tab 05/24/24 Ipratropium-Albuterol Nebulize 3 ml INHALATION RT-Q2H PRN each 05/24/24 [Duoneb 0.5 mg-3 mg/3 ml Soln] Apixaban [Eliquis] 5 mg PO BID #60 tab 09/09/24 Metoprolol Succinate (ER) [Toprol 25 mg PO DAILY 30 Days #30 tab 09/11/24 XL] Torsemide [Demadex] 10 mg PO DAILY #30 tab 10/26/24 predniSONE [Deltasone] 20 mg PO BID #10 tab 11/01/24 Allergies Allergy/AdvReac Type Severity Reaction Status Date / Time latex Allergy Swelling Verified 11/01/24 03:22 atorvastatin [From Lipitor] AdvReac JOINT PAIN Verified 11/01/24 03:22 Review of Systems ROS Other: All systems not noted in ROS Statement are negative. <Apollo Corral - Last Filed: 11/01/24 08:42> ROS Other: All systems not noted in ROS Statement are negative. Constitutional: Reports: chills. Denies: fever Respiratory: Denies: dyspnea Cardiovascular: Reports: chest pain (states chest always feels tight but no new pain, does not radiate from back) Gastrointestinal: Reports: nausea. Denies: abdominal pain, vomiting, diarrhea, melena, hematochezia Genitourinary: Denies: hematuria Musculoskeletal: Reports: back pain Neurological: Denies: numbness <Alisson Mendes - Last Filed: 11/01/24 18:37> ROS Statement: Those systems with pertinent positive or pertinent negative responses have been documented in the HPI. Past Medical History Past Medical History: Coronary Artery Disease (CAD), Chest Pain / Angina, Heart Failure, COPD, GERD/Reflux, Hyperlipidemia, Hypertension, Myocardial Infarction ([place]), Osteoarthritis (OA), Sleep Apnea/CPAP/BIPAP Additional Past Medical History / Comment(s): Chronic back pain, left leg weakness. 4LNC. States unsure about having had a heart attack. Last Myocardial Infarction Date:: 11/11/22 History of Any Multi-Drug Resistant Organisms: None Reported Past Surgical History: Back Surgery, Cholecystectomy, Coronary Bypass/CABG, Heart Catheterization With Stent Additional Past Surgical History / Comment(s): Back surgery X2 with cage, left tennis elbow surgery, heart stents X7, colonoscopy. emergency CABG [facility], thrombectomy. April Past Anesthesia/Blood Transfusion Reactions: No Reported Reaction Additional Past Anesthesia/Blood Transfusion Reaction / Comment(s): Pt received blood during CABG without reaction. Date of Last Stent Placement:: Oct 2022 Past Psychological History: Anxiety, Depression, PTSD Smoking Status: Former smoker, Vaper Past Alcohol Use History: None Reported Past Drug Use History: None Reported - Past Family History Father Family Medical History: Coronary Artery Disease (CAD), Deep Vein Thrombosis (DVT), GERD/Reflux, Hyperlipidemia, Myocardial Infarction ([place]) Additional Family Medical History / Comment(s): Father of a [place] in his 80's. Mother Family Medical History: Coronary Artery Disease (CAD), Myocardial Infarction ([place]) Additional Family Medical History / Comment(s): Mother of a [place]. Brother(s) Family Medical History: Myocardial Infarction ([place]) Additional Family Medical History / Comment(s): . Sister(s) Family Medical History: Cancer, Diabetes Mellitus Additional Family Medical History / Comment(s): Lung cancer. Other sister had Diabetes. <Alisson Mendes - Last Filed: 11/01/24 18:37> General Exam Limitations: no limitations <Alisson Mendes - Last Filed: 11/01/24 18:37> - General Exam Comments Initial Comments: PE: CONSTITUTIONAL: Mild distress, uncomfortable appearing secondary to pain, nontoxic-appearing, not ill-appearing SKIN: Warm, dry, no jaundice, hives or petechiae. Post surgical scar along lumbar spine EYES: Pupils are equally round, extraocular movements intact without nystagmus, clear conjunctiva, non-icteric sclera HENT: Normocephalic, atraumatic, moist mucus membranes, oropharynx clear without exudates NECK: , Full range of motion, normal appearance no midline neck spinal tenderness to palpation PULMONARY: Clear to auscultation without wheezes, rhonchi, or rales, normal excursion, no accessory muscle use and no stridor CARDIOVASCULAR: Regular rate, rhythm, normal S1 and S2. No appreciated murmurs, rubs or gallops. Strong dorsalis pedis pulses with intact distal perfusion. No lower extremity edema GASTROINTESTINAL: Soft, active bowel sounds throughout, non-tender, non- distended, no palpable masses, no rebound or guarding. No hepatosplenomegaly. Rectal exam was performed with ELLIE Malave at bedside, patient has excellent rectal tone, sensation intact, light brown stool on glove on digital rectal exam. No CVA TTP MUSCULOSKELETAL: Extremities have no gross deformity, no edema, redness, or swelling. Positive straight leg raise, tenderness to palpation of the mid lumbar spine over patient's post surgical scar with palpable muscle spasms along paraspinal muscles, no palpable masses or step offs NEUROLOGIC:_a/o x 3, GCS 15, normal mentation and speech. Hip flexion limited 2/2 pain in back with hip flexion, moves upper extremities without motor or sensory deficit, 4/5 strength in RLE, 5/5 strength in LLE, sensation intact in bilateral LE, 2+ , normal patellar reflexes, no clonus, negative babinksi sign PSYCHIATRIC:_normal mood and affect, thought process is clear and linear (Alisson Mendes) Course Vital Signs 11/01/24 11/01/24 03:20 09:18 Temperature 97.4 F L 98.1 F Pulse Rate 85 72 Respiratory 18 16 Rate Blood Pressure 124/73 110/65 O2 Sat by Pulse 98 98 Oximetry Medical Decision Making - Lab Data Result diagrams: 11/01/24 05:30 11/01/24 05:30 <CorralApollo - Last Filed: 11/01/24 08:42> - Lab Data Result diagrams: 11/01/24 05:30 11/01/24 05:30 <Alisson Mendes - Last Filed: 11/01/24 18:37> - Medical Decision Making CT scan abdomen pelvis without acute abnormality interpreted by myself. Case endorsed to me for probable discharge pending CT report. Patient reevaluated and resting comfortably in bed. Patient states he still has back discomfort. Patient updated on results and plan. Patient to be discharged following further medication administration. Patient also request medication for home and will be prescribed steroids. Diagnosis: Lower back pain Acute on chronic (Apollo Corral) Was pt. sent in by a medical professional or institution (, PA, COMPENSATION/BENEFITS SPECIALIST, urgent care, hospital, or jail...) When possible be specific @ -No Did you speak to anyone other than the patient for history (EMS, parent, family, police, friend...)? What history was obtained from this source @ -No Did you review nursing and triage notes (agree or disagree)? Why? @ -I reviewed and agree with nursing and triage notes Were old charts reviewed (outside hosp., previous admission, EMS record, old EKG, old radiological studies, urgent care reports/EKG's, jail records)? Report findings @Medical records reviewed, patient has had multiple visits in the last year for chest pain Differential Diagnosis (chest pain, altered mental status, abdominal pain women, abdominal pain men, vaginal bleeding, weakness, fever, dyspnea, syncope, headache, dizziness, GI bleed, back pain, seizure, CVA, palpatations, mental health, musculoskeletal)? Differential Back Pain: Strain, zoster, cauda equina syndrome, epidural abscess, vertebral osteomyelitis, discitis, fracture, subluxation, disc herniation, DJD, spinal stenosis, dissection, AAA, pyelonephritis, kidney stone, this is not meant to be an all-inclusive list. EKG interpreted by me (3pts min.). @ -As above X-rays interpreted by me (1pt min.). @ -None done CT interpreted by me (1pt min.). @ I see no evidence of hydronephrosis or hydroureter, no renal artery dilation or aneurysm, no evidence of bowel obstruction U/S interpreted by me (1pt. min.). @ -None done What testing was considered but not performed or refused? (CT, X-rays, U/S, labs)? Why? @ -None What meds were considered but not given or refused? Why? @ -None Did you discuss the management of the patient with other professionals (professionals i.e. , PA, COMPENSATION/BENEFITS SPECIALIST, lab, RT, psych nurse, social work professor, paint mixer hand, teacher, unemployment insurance hearing officer, case managers)? Give summary @ -No Was smoking cessation discussed for >3mins.? @ -No Was critical care preformed (if so, how long)? @ -No Were there social determinants of health that impacted care today? How? (Homele ssness, low income, unemployed, alcoholism, drug addiction, transportation, low edu. Level, literacy, decrease access to med. care, assisted, rehab)? @ -No Was there de-escalation of care discussed even if they declined (Discuss DNR or withdrawal of care, Hospice)? @ -No What co-morbidities impacted this encounter? (DM, HTN, Smoking, COPD, CAD, Cancer, CVA, ARF, Chemo, Hep., AIDS, mental health diagnosis, sleep apnea, morbid obesity)? Chronic back pain Was patient admitted / discharged? Hospital course, mention meds given and route, prescriptions, significant lab abnormalities, going to OR and other pertinent info. @Signed out to oncoming physician pending radiologist review of CT, anticipated discharge- Patient is a 69-year-old gentleman presenting today for acute on chronic back pain. Uncomfortable appearing on my assessment, bladder scan shows 127 mL of urine in bladder. No overlying skin changes on back aside form old surgcial scar. Abdomen soft and nontender without bruits. Excellent rectal tone, patellar reflexes wnl. Slight weakness in RLE compared to left though limited as pt endorses back pain with hip flexion. VS within acceptable limits, pt is not hypertensive, tachycardic or febrile. Plan for IM Norflex, home Hulbert. Patient agreeable w/ plan of care. At this time pt's exam, vitals do not appear to be consistent with cauda equina syndrome or infectious process therefor I do not feel MRI indicated at this time. On reassessment pt appears to be resting comfortably with eyes closed when I walk to his room however states that his pain is not improved. Discussed with him attempting tizanidine and lidocaine patch. Patient feels like his pain is radiating around the right flank towards right side of abdomen. No CVA TTP, however at this point due to patient's persistent pain will obtain basic labs and a CT abdomen pelvis with contrast to evaluate for aneurysm, ureterolithiasis, etc, though I have a low suspicion for these based on exam and vitals. Patient was able to urinate and provide a urine sample, currently pending. Pt agreeable with POC. Labs reviewed. Grossly within normal limits. Abnormal values not concerning for acute pathology related to presenting complaint. Urinalysis shows trace blood and few bacteria noted though negative nitrates and leukocyte esterase. Will send for culture. I reviewed patient's CT scan, I see no evidence of aneurysm, obstruction, free air or free fluid in the abdomen. I do note a right lower lobe pleural effusion, however compared to CT scan performed on CT 10/24/24 appears unchanged from prior. Patient signed out to oncoming physician pending CT scan read by radiologist. Undiagnosed new problem with uncertain prognosis? @ -No Drug Therapy requiring intensive monitoring for toxicity (Heparin, Nitro, Insulin, Cardizem)? @ -No Were any procedures done? @ -No Diagnosis/symptom? low back pain Acute, or Chronic, or Acute on Chronic? @acute on chronic Uncomplicated (without systemic symptoms) or Complicated (systemic symptoms)? @ uncomplicated Side effects of treatment? @ -No Exacerbation, Progression, or Severe Exacerbation? @ -No Poses a threat to life or bodily function? How? (Chest pain, [place], [place], pneumonia, PE, COPD, DKA, ARF, appy, cholecystitis, CVA, Diverticulitis, Homicidal, Suicidal, threat to staff... and all critical care pts) @ -No (Alisson Mendes) - Lab Data Lab Results 11/01/24 11/01/24 11/01/24 Range/Units 04:43 05:30 05:30 WBC 5.8 (3.8-10.6) k/uL RBC 4.90 (4.30-5.90) m/uL Hgb 12.6 L (13.0-17.5) gm/dL Hct 40.4 (39.0-53.0) % MCV 82.4 (80.0-100.0) fL MCH 25.7 (25.0-35.0) pg MCHC 31.2 (31.0-37.0) g/dL RDW 19.0 H (11.5-15.5) % Plt Count 114 L (150-450) k/uL MPV 8.9 Neutrophils % 68 % Lymphocytes % 20 % Monocytes % 9 % Eosinophils % 2 % Basophils % 0 % Neutrophils # 3.9 (1.3-7.7) k/uL Lymphocytes # 1.1 (1.0-4.8) k/uL Monocytes # 0.5 (0-1.0) k/uL Eosinophils # 0.1 (0-0.7) k/uL Basophils # 0.0 (0-0.2) k/uL Hypochromasia Moderate Anisocytosis Slight Microcytosis Slight Sodium 133 L (137-145) mmol/L Potassium 4.1 (3.5-5.1) mmol/L Chloride 101 (98-107) mmol/L Carbon Dioxide 24 (22-30) mmol/L Anion Gap 8 mmol/L BUN 16 (9-20) mg/dL Creatinine 0.82 (0.66-1.25) mg/dL Est GFR (CKD-EPI)AfAm >90 (>60 ml/min/1.73 sqM) Est GFR (CKD-EPI)NonAf >90 (>60 ml/min/1.73 sqM) Glucose 89 (74-99) mg/dL Calcium 8.9 (8.4-10.2) mg/dL Total Bilirubin 0.7 (0.2-1.3) mg/dL AST 26 (17-59) U/L ALT 17 (4-49) U/L Alkaline Phosphatase 137 H (38-126) U/L Total Protein 6.8 (6.3-8.2) g/dL Albumin 3.7 (3.5-5.0) g/dL Urine Color Yellow Urine Appearance Clear (Clear) Urine pH 6.0 (5.0-8.0) Ur Specific [place] 1.023 (1.001-1.035) Urine Protein Trace H (Negative) Urine Glucose (UA) Negative (Negative) Urine Ketones Negative (Negative) Urine Blood Trace H (Negative) Urine Nitrite Negative (Negative) Urine Bilirubin Negative (Negative) Urine Urobilinogen 3.0 (<2.0) mg/dL Ur Leukocyte Esterase Negative (Negative) Urine RBC 4 (0-5) /hpf Urine WBC 2 (0-5) /hpf Ur Squamous Epith Cells <1 (0-4) /hpf Urine Bacteria Rare H (None) /hpf Hyaline Casts 1 (0-2) /lpf Urine Mucus Rare H (None) /hpf Disposition Is patient prescribed a controlled substance at d/c from ED?: No Time of Disposition: 08:44 <Apollo Corral - Last Filed: 11/01/24 08:42> <Alisson Mendes - Last Filed: 11/01/24 18:37> Clinical Impression: Back pain, Microscopic hematuria Disposition: HOME SELF-CARE Condition: Stable Instructions (If sedation given, give patient instructions): Acute Low Back Pain (ED) Additional Instructions: Prescription sent to pharmacy. Please do follow-up with your primary care physician in the next day or 2 for recheck. Return for increased pain, weakness, loss of control of bowel or bladder, fever, worsening or changing symptoms or any other concerns. Prescriptions: predniSONE [Deltasone] 20 mg PO BID #10 tab Referrals: Alexx Gee MD [Primary Care Provider] - 1-2 days
[2024-11-01] MEDS: ACETAMINOPHEN TAB 325 MG TAB PO STA (05:07)
[2024-11-01] MEDS: tiZANidine 4 MG TAB PO STA (05:07)
[2024-11-01] MEDS: LIDOCAINE 4% PATCH TOPICAL ONE (05:08)
[2024-11-01 05:16] LABS: Appearance,Urine Clear (Clear); Bacteria,Urine Rare /hpf; Bilirubin,Urine Negative (Negative); Blood,Urine Trace (Negative); Color,Urine Yellow; Glucose,Urine (UA) Negative (Negative); Hyaline Casts,Urine 1 /lpf (0-2); Ketones,Urine Negative (Negative); Leukocyte Esterase,Urine Negative (Negative); Mucus,Urine Rare /hpf; Nitrite,Urine Negative (Negative); Protein,Urine Trace (Negative); RBC,Urine 4 /hpf (0-5); Specific Gravity,Urine 1.023 (1.001-1.035); Squamous Epithelial Cell,Urine <1 /hpf (0-4); WBC,Urine 2 /hpf (0-5)
[2024-11-01 05:44] LABS: Anisocytosis Slight; Basophils % (A) 0 %; Eosinophils # (A) 0.1 k/uL (0-0.7); Eosinophils % (A) 2 %; HCT 40.4 % (39.0-53.0); HGB 12.6 gm/dL (13.0-17.5); Hypochromasia Moderate; Lymphocytes # (A) 1.1 k/uL (1.0-4.8); Lymphocytes % (A) 20 %; MCH 25.7 pg (25.0-35.0); MCHC 31.2 g/dL (31.0-37.0); MCV 82.4 fL (80.0-100.0); Mean Platelet Volume 8.9; Microcytosis Slight; Monocytes # (A) 0.5 k/uL (0-1.0); Monocytes % (A) 9 %; Neutrophils # (A) 3.9 k/uL (1.3-7.7); Neutrophils % (A) 68 %; Platelet Count 114 k/uL (150-450); WBC 5.8 k/uL (3.8-10.6)
[2024-11-01 05:59] LABS: ALT 17 U/L (4-49); AST 26 U/L (17-59); African American GFR (CKD) >90 (>60 ml/min/1.73 sqM); Albumin 3.7 g/dL (3.5-5.0); Alkaline Phosphatase 137 U/L (38-126); Anion Gap 8 mmol/L; Blood Urea Nitrogen 16 mg/dL (9-20); Calcium 8.9 mg/dL (8.4-10.2); Carbon Dioxide 24 mmol/L (22-30); Chloride 101 mmol/L (98-107); Glucose 89 mg/dL (74-99); Non-African American GFR(CKD) >90 (>60 ml/min/1.73 sqM); Potassium 4.1 mmol/L (3.5-5.1); Sodium 133 mmol/L (137-145); Total Bilirubin 0.7 mg/dL (0.2-1.3); Total Protein 6.8 g/dL (6.3-8.2)
--- NOTE | 2024-11-01 08:08 | CT ---
EXAMINATION TYPE: CT abdomen pelvis w con DATE OF EXAM: 11/01/2024 5:53 AM COMPARISON: 1226 4 CLINICAL INDICATION: Male, 69 years old with history of back pain R>L, Patient states lower back pain that started this morning. Unable to urinate TECHNIQUE: Axial images were obtained from above the diaphragm to the pubic rami in the axial plane a t 5 mm thick sections. Reconstructed images are reviewed on the computer in the coronal plane. CONTRAST: mL of Isovue 300. Study performed without Oral Contrast DLP: 1455.3 mGycm, Automated exposure control for dose reduction was used. FINDINGS: Limited CT sections are obtained the lung bases. There is a small right pleural effusion. Adjacent a telectasis is present. Very minimal fluid is at the left lung base. CT ABDOMEN: Liver: Normal Spleen: Normal Pancreas: Normal Adrenal glands: The adrenal glands are normal. Gallbladder: Surgically absent Kidneys: No masses are evident. No hydronephrosis is present. No cysts are present. No obvious bonita l stones are evident Delayed images were obtained through the kidneys, which remain unremarkable. Aorta: Vascular calcification is within the aorta. Inferior vena cava: Normal. CT PELVIS: Loops of bowel within the abdomen and pelvis are normal. This study is without oral contrast limi ting evaluation Appendix: Normal as visualized. Urinary bladder: Normal. Genitourinary structures: Prostate appears normal Osseous structures: No suspicious lytic or sclerotic lesions. Surgical changes are within the lumbar spine. No spinal canal stenosis is facet hypertrophy is present at L4-5. IMPRESSION: 1. [facility], , 11/01/2024 8:05 AM
[2024-11-01 09:20] VITALS: BP 110/65; PULSE 72; RESP 16; TEMP 98.1
[2024-11-01] MEDS: KETOROLAC 15 MG/ML 1 ML VIAL IVP STA (09:41)
== END 2024-11-01 09:46 | disposition home or self-care (01) ==
LOC: EC 03:15
DX: M54.50 Low back pain, unspecified (principal); R31.29 Other microscopic hematuria; G89.29 Other chronic pain; F17.290 Nicotine dependence, other tobacco product, uncomplicated; Z88.8 Allergy status to other drugs, medicaments and biological substances; Z91.040 Latex allergy status
CPT/HCPCS: 51798; 36415; 80053; 85025; 81001; 87086; 74177; 99284; 96374; 96372; J2360; J1885; Q9967

== ENCOUNTER 2024-11-14 19:15 | Emergency (ER) | payer OTHER ==
[2024-11-14 20:09] VITALS: TEMP 98.6
[2024-11-14] MEDS: MORPHINE SULFATE 4 MG/ML SYRINGE IM STA (20:40)
[2024-11-14] MEDS: LIDOCAINE 4% PATCH TOPICAL STA (20:41)
[2024-11-14 21:10] LABS: Glucose,Whole Blood 64 mg/dL (70-110)
[2024-11-14 21:34] LABS: Anisocytosis Slight; Basophils % (A) 1 %; Eosinophils # (A) 0.1 k/uL (0-0.7); Eosinophils % (A) 2 %; HCT 44.3 % (39.0-53.0); HGB 13.7 gm/dL (13.0-17.5); Hypochromasia Slight; Lymphocytes # (A) 1.3 k/uL (1.0-4.8); Lymphocytes % (A) 24 %; MCH 25.7 pg (25.0-35.0); MCV 82.8 fL (80.0-100.0); Mean Platelet Volume 9.3; Microcytosis Slight; Monocytes # (A) 0.6 k/uL (0-1.0); Monocytes % (A) 11 %; Neutrophils % (A) 58 %; RBC 5.35 m/uL (4.30-5.90); RDW 18.2 % (11.5-15.5); WBC 5.1 k/uL (3.8-10.6)
[2024-11-14 21:42] LABS: Prothrombin Time 11.1 sec (10.0-12.5)
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
[2024-11-14 21:46] LABS: ALT 22 U/L (4-49); AST 34 U/L (17-59); African American GFR (CKD) >90 (>60 ml/min/1.73 sqM); Albumin 4.4 g/dL (3.5-5.0); Alkaline Phosphatase 155 U/L (38-126); Anion Gap 10 mmol/L; Blood Urea Nitrogen 15 mg/dL (9-20); Calcium 9.9 mg/dL (8.4-10.2); Carbon Dioxide 27 mmol/L (22-30); Chloride 105 mmol/L (98-107); Glucose 50 mg/dL (74-99); Non-African American GFR(CKD) 89 (>60 ml/min/1.73 sqM); Potassium 4.1 mmol/L (3.5-5.1); Sodium 142 mmol/L (137-145); Total Bilirubin 0.5 mg/dL (0.2-1.3)
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
[2024-11-14 22:04] LABS: Platelet Count 177 k/uL (150-450)
[2024-11-14 22:07] LABS: Glucose,Whole Blood 59 mg/dL (70-110)
[2024-11-14] MEDS: SODIUM CHLORIDE 0.9% 1,000 ML IV ONE (22:17)
[2024-11-14] MEDS: MORPHINE SULFATE 4 MG/ML SYRINGE IVP STA (22:17)
[2024-11-14 22:52] LABS: Glucose,Whole Blood 163 mg/dL (70-110)
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
[2024-11-14] MEDS: ACET/COD 300 MG/30 MG STARTER PACK 6 TAB BTL PO STA (23:26)
[2024-11-14 23:33] VITALS: BP 136/72; PULSE 84; RESP 15
== END 2024-11-14 23:33 | disposition home or self-care (01) ==
LOC: EC 19:15
DX: S39.012A Strain of muscle, fascia and tendon of lower back, initial encounter (principal); G89.29 Other chronic pain; F94.0 Selective mutism; I25.10 Atherosclerotic heart disease of native coronary artery without angina pectoris; F17.290 Nicotine dependence, other tobacco product, uncomplicated; Z91.040 Latex allergy status; Z88.8 Allergy status to other drugs, medicaments and biological substances; V49.50XA Passenger injured in collision with unspecified motor vehicles in traffic accident, initial encounter
CPT/HCPCS: 36415; 93005; 80053; 82140; 84484; 85025; 85610; 85730; 72170; 73562; 71045; 72131; 70450; 99285; 96374; 96372; 96361; J2270

== ENCOUNTER 2024-12-06 23:24 | Observation (INO) | payer MEDICARE, OTHER ==
[2024-12-07] MEDS: ASPIRIN 81 MG PO STA (00:28)
[2024-12-07] MEDS: MORPHINE SULFATE 4 MG/ML SYRINGE IV STA (00:28)
[2024-12-07 00:48] LABS: Anisocytosis Slight; Basophils % (A) 1 %; Eosinophils # (A) 0.1 k/uL (0-0.7); Eosinophils % (A) 2 %; HCT 38.8 % (39.0-53.0); HGB 12.1 gm/dL (13.0-17.5); Hypochromasia Moderate; Lymphocytes % (A) 18 %; MCH 26.1 pg (25.0-35.0); MCHC 31.2 g/dL (31.0-37.0); MCV 83.6 fL (80.0-100.0); Mean Platelet Volume 9.6; Monocytes # (A) 0.5 k/uL (0-1.0); Monocytes % (A) 9 %; Neutrophils # (A) 3.9 k/uL (1.3-7.7); Neutrophils % (A) 68 %; Platelet Count 146 k/uL (150-450); RBC 4.65 m/uL (4.30-5.90); WBC 5.7 k/uL (3.8-10.6)
[2024-12-07 00:59] LABS: ALT 14 U/L (4-49); AST 24 U/L (17-59); African American GFR (CKD) >90 (>60 ml/min/1.73 sqM); Albumin 3.8 g/dL (3.5-5.0); Alkaline Phosphatase 140 U/L (38-126); Amylase 54 U/L (30-110); Anion Gap 7 mmol/L; Blood Urea Nitrogen 18 mg/dL (9-20); Calcium 9.2 mg/dL (8.4-10.2); Carbon Dioxide 25 mmol/L (22-30); Chloride 105 mmol/L (98-107); Glucose 105 mg/dL (74-99); Lipase 77 U/L (23-300); Magnesium 1.8 mg/dL (1.6-2.3); Non-African American GFR(CKD) 90 (>60 ml/min/1.73 sqM); Potassium 3.9 mmol/L (3.5-5.1); Sodium 137 mmol/L (137-145); Total Bilirubin 0.6 mg/dL (0.2-1.3); Total Protein 6.8 g/dL (6.3-8.2)
--- NOTE | 2024-12-07 00:59 | XR ---
EXAM: XR Chest, 2 Views CLINICAL HISTORY: ITS.REASON XR Reason: Chest Pain TECHNIQUE: Frontal and lateral views of the chest. COMPARISON: 11/14/2024. FINDINGS: Lungs: See below. Pleural space: Located at the right lung base laterally, there is an abnormal density of uncertain etiology which remains unresolved since 11/14/2024. This finding is of uncertain etiology. Differential etiologies include pleural effusion atelectasis. Other etiologies cannot be excluded however. No pneumothorax. Heart: There is cardiomegaly. Mediastinum: Unremarkable. Normal mediastinal contour. Bones/joints: Sternotomy wires are noted in place. No acute fracture. IMPRESSION: Indeterminate and equivocal density at the right lung base as discussed above which remains unresolved since the previous study. CT imaging of the chest is advised for further assessment.
[2024-12-07 01:00] LABS: Partial Thromboplastin Time 24.5 sec (22.0-30.0); Prothrombin Time 11.1 sec (10.0-12.5)
--- NOTE | 2024-12-07 01:59 | ED ---
General Adult HPI - General Chief complaint: Shortness of Breath Stated complaint: shortness of breath Time Seen by Provider: 12/07/24 00:08 Source: patient Mode of arrival: wheelchair Limitations: no limitations - History of Present Illness Initial comments: This patient is a 69-year-old man who presents with constellation of symptoms bringing him to the emergency department. The patient states he is having worsening of underlying shortness of breath. He states that if he does any walking he becomes very short of breath. He has not noticed fever or chills. Occasional cough, mainly nonproductive. The patient is also having a flareup of underlying neck and back pain. He describes pain in the lower neck that radiates to the bilateral arms. Denies dagmar chest pain but does have some lower back pain as well. Patient denies loss of control of bladder or bowels. No weakness or numbness of the legs. -: days(s) Location: neck, back Radiation: extremity Quality: burning, stabbing Consistency: constant Improves with: none Worsens with: none Associated Symptoms: cough, shortness of breath Treatments Prior to Arrival: none - Related Data Home Medications Medication Instructions Recorded Confirmed Fluticasone Nasal [place] [Flonase 1 spray EA NOSTRIL BID PRN 01/27/23 10/24/24 Nasal [place]] Cyclobenzaprine [Flexeril] 10 mg PO BID 08/21/23 10/24/24 Ergocalciferol [Vitamin D2 (1250 1,250 mcg PO Q14D 05/10/24 10/24/24 Mcg = 24980 Iu)] Ferrous Sulfate [Iron (65 MG 325 mg PO DAILY 05/10/24 10/24/24 Elemental)] Gabapentin [Neurontin] 100 mg PO TID 05/10/24 10/24/24 ALPRAZolam [Xanax] 2 mg PO HS 07/27/24 10/24/24 Albuterol Inhaler [Ventolin Hfa 2 puff INHALATION RT-Q6H PRN 09/05/24 10/24/24 Inhaler] Aspirin EC [Ecotrin Low Dose] 81 mg PO DAILY 09/05/24 10/24/24 Folic Acid 1 mg PO DAILY 09/05/24 10/24/24 Omeprazole [PriLOSEC] 20 mg PO DAILY 09/05/24 10/24/24 Tamsulosin [Flomax] 0.4 mg PO DAILY 09/05/24 10/24/24 allopurinoL [Zyloprim] 100 mg PO DAILY 09/05/24 10/24/24 rOPINIRole HCL [Requip] 0.25 mg PO HS 09/05/24 10/24/24 Sacubitril/Valsartan [Entresto 24 1 tab PO BID 09/25/24 10/24/24 mg-26 mg Tablet] oxyCODONE-APAP 10-325MG [Percocet 1 tab PO Q4HR PRN 09/25/24 10/24/24 10-325 mg] Spironolactone [Aldactone] 12.5 mg PO DAILY 10/17/24 10/24/24 Previous Rx's Medication Instructions Recorded Ezetimibe [Zetia] 10 mg PO DAILY #90 tab 11/18/22 Sodium Bicarbonate Tab 650 mg PO TID #100 tab 01/25/24 Dapagliflozin Propanediol [Farxiga] 10 mg PO DAILY tab 05/24/24 Ipratropium-Albuterol Nebulize 3 ml INHALATION RT-Q2H PRN each 05/24/24 [Duoneb 0.5 mg-3 mg/3 ml Soln] Apixaban [Eliquis] 5 mg PO BID #60 tab 09/09/24 Metoprolol Succinate (ER) [Toprol 25 mg PO DAILY 30 Days #30 tab 09/11/24 XL] Torsemide [Demadex] 10 mg PO DAILY #30 tab 10/26/24 predniSONE [Deltasone] 20 mg PO BID #10 tab 11/01/24 Cyclobenzaprine [Flexeril] 5 mg PO TID PRN 7 Days #21 tablet 11/14/24 Lidocaine 5% Patch [Lidoderm 5% 1 patch TOPICAL DAILY PRN 14 Days 11/14/24 Patch] #14 patch Allergies Allergy/AdvReac Type Severity Reaction Status Date / Time latex Allergy Swelling Verified 12/06/24 23:50 atorvastatin [From Lipitor] AdvReac JOINT PAIN Verified 12/06/24 23:50 Review of Systems ROS Statement: Those systems with pertinent positive or pertinent negative responses have been documented in the HPI. ROS Other: All systems not noted in ROS Statement are negative. Constitutional: Denies: fever, chills Respiratory: Reports: cough, dyspnea. Denies: wheezes, hemoptysis Cardiovascular: Denies: chest pain, palpitations, edema Gastrointestinal: Denies: abdominal pain, vomiting, diarrhea, constipation Genitourinary: Denies: dysuria, hematuria Musculoskeletal: Reports: back pain Skin: Denies: rash Neurological: Denies: headache, weakness, numbness Past Medical History Past Medical History: Coronary Artery Disease (CAD), Chest Pain / Angina, Heart Failure, COPD, GERD/Reflux, Hyperlipidemia, Hypertension, Myocardial Infarction ([place]), Osteoarthritis (OA), Sleep Apnea/CPAP/BIPAP Additional Past Medical History / Comment(s): Chronic back pain, left leg weakness. 4LNC. States unsure about having had a heart attack. Last Myocardial Infarction Date:: 11/11/22 History of Any Multi-Drug Resistant Organisms: None Reported Past Surgical History: Back Surgery, Cholecystectomy, Coronary Bypass/CABG, Heart Catheterization With Stent Additional Past Surgical History / Comment(s): Back surgery X2 with cage, left tennis elbow surgery, heart stents X7, colonoscopy. emergency CABG [facility], thrombectomy. April Past Anesthesia/Blood Transfusion Reactions: No Reported Reaction Additional Past Anesthesia/Blood Transfusion Reaction / Comment(s): Pt received blood during CABG without reaction. Date of Last Stent Placement:: Oct 2022 Past Psychological History: Anxiety, Depression, PTSD Smoking Status: Former smoker, Vaper Past Alcohol Use History: None Reported Past Drug Use History: None Reported - Past Family History Father Family Medical History: Coronary Artery Disease (CAD), Deep Vein Thrombosis (DVT), GERD/Reflux, Hyperlipidemia, Myocardial Infarction ([place]) Additional Family Medical History / Comment(s): Father of a [place] in his 80's. Mother Family Medical History: Coronary Artery Disease (CAD), Myocardial Infarction ([place]) Additional Family Medical History / Comment(s): Mother of a [place]. Brother(s) Family Medical History: Myocardial Infarction ([place]) Additional Family Medical History / Comment(s): . Sister(s) Family Medical History: Cancer, Diabetes Mellitus Additional Family Medical History / Comment(s): Lung cancer. Other sister had Diabetes. General Exam Limitations: no limitations General appearance: alert, in no apparent distress Head exam: Present: atraumatic, normocephalic Eye exam: Present: normal appearance. Absent: scleral icterus, conjunctival injection ENT exam: Present: normal oropharynx Neck exam: Present: normal inspection, full ROM. Absent: tenderness, meningismus Respiratory exam: Present: wheezes, decreased breath sounds (Right base). Absent: respiratory distress, rales, rhonchi, stridor, accessory muscle use Cardiovascular Exam: Present: regular rate, normal rhythm, normal heart sounds. Absent: systolic murmur, diastolic murmur, rubs, gallop GI/Abdominal exam: Present: soft. Absent: distended, tenderness, guarding, rebound, rigid, mass Extremities exam: Present: normal inspection, normal capillary refill. Absent: pedal edema, calf tenderness Back exam: Present: normal inspection. Absent: CVA tenderness (R), CVA tenderness (L), vertebral tenderness Neurological exam: Present: alert. Absent: motor sensory deficit Skin exam: Present: warm, dry, intact, normal color. Absent: rash Course Vital Signs 12/06/24 12/07/24 12/07/24 23:50 01:48 03:38 Temperature 98.3 F Pulse Rate 82 76 79 Respiratory 18 18 16 Rate Blood Pressure 128/77 138/60 110/70 O2 Sat by Pulse 96 92 L Oximetry 12/07/24 04:24 Temperature Pulse Rate 88 Respiratory 18 Rate Blood Pressure 112/70 O2 Sat by Pulse 93 L Oximetry Medical Decision Making - Medical Decision Making The patient had x-ray of the chest that I interpreted as showing density at the right lung base. The patient had CT scan of the chest that I interpreted as negative for pulmonary embolism. Right pleural effusion present - Lab Data Result diagrams: 12/07/24 00:20 12/07/24 00:20 Lab Results 12/07/24 12/07/24 12/07/24 Range/Units 00:20 00:20 00:20 WBC 5.7 (3.8-10.6) k/uL RBC 4.65 (4.30-5.90) m/uL Hgb 12.1 L (13.0-17.5) gm/dL Hct 38.8 L (39.0-53.0) % MCV 83.6 (80.0-100.0) fL MCH 26.1 (25.0-35.0) pg MCHC 31.2 (31.0-37.0) g/dL RDW 17.0 H (11.5-15.5) % Plt Count 146 L (150-450) k/uL MPV 9.6 Neutrophils % 68 % Lymphocytes % 18 % Monocytes % 9 % Eosinophils % 2 % Basophils % 1 % Neutrophils # 3.9 (1.3-7.7) k/uL Lymphocytes # 1.0 (1.0-4.8) k/uL Monocytes # 0.5 (0-1.0) k/uL Eosinophils # 0.1 (0-0.7) k/uL Basophils # 0.0 (0-0.2) k/uL Hypochromasia Moderate Anisocytosis Slight PT 11.1 (10.0-12.5) sec INR 1.0 (<1.2) APTT 24.5 (22.0-30.0) sec D-Dimer 3.14 H (<0.60) mg/L FEU Sodium 137 (137-145) mmol/L Potassium 3.9 (3.5-5.1) mmol/L Chloride 105 (98-107) mmol/L Carbon Dioxide 25 (22-30) mmol/L Anion Gap 7 mmol/L BUN 18 (9-20) mg/dL Creatinine 0.86 (0.66-1.25) mg/dL Est GFR (CKD-EPI)AfAm >90 (>60 ml/min/1.73 sqM) Est GFR (CKD-EPI)NonAf 90 (>60 ml/min/1.73 sqM) Glucose 105 H (74-99) mg/dL Calcium 9.2 (8.4-10.2) mg/dL Magnesium 1.8 (1.6-2.3) mg/dL Total Bilirubin 0.6 (0.2-1.3) mg/dL AST 24 (17-59) U/L ALT 14 (4-49) U/L Alkaline Phosphatase 140 H (38-126) U/L Troponin I (0.000-0.034) ng/mL Total Protein 6.8 (6.3-8.2) g/dL Albumin 3.8 (3.5-5.0) g/dL Amylase 54 (30-110) U/L Lipase 77 (23-300) U/L 12/07/24 Range/Units 00:20 WBC (3.8-10.6) k/uL RBC (4.30-5.90) m/uL Hgb (13.0-17.5) gm/dL Hct (39.0-53.0) % MCV (80.0-100.0) fL MCH (25.0-35.0) pg MCHC (31.0-37.0) g/dL RDW (11.5-15.5) % Plt Count (150-450) k/uL MPV Neutrophils % % Lymphocytes % % Monocytes % % Eosinophils % % Basophils % % Neutrophils # (1.3-7.7) k/uL Lymphocytes # (1.0-4.8) k/uL Monocytes # (0-1.0) k/uL Eosinophils # (0-0.7) k/uL Basophils # (0-0.2) k/uL Hypochromasia Anisocytosis PT (10.0-12.5) sec INR (<1.2) APTT (22.0-30.0) sec D-Dimer (<0.60) mg/L FEU Sodium (137-145) mmol/L Potassium (3.5-5.1) mmol/L Chloride (98-107) mmol/L Carbon Dioxide (22-30) mmol/L Anion Gap mmol/L BUN (9-20) mg/dL Creatinine (0.66-1.25) mg/dL Est GFR (CKD-EPI)AfAm (>60 ml/min/1.73 sqM) Est GFR (CKD-EPI)NonAf (>60 ml/min/1.73 sqM) Glucose (74-99) mg/dL Calcium (8.4-10.2) mg/dL Magnesium (1.6-2.3) mg/dL Total Bilirubin (0.2-1.3) mg/dL AST (17-59) U/L ALT (4-49) U/L Alkaline Phosphatase (38-126) U/L Troponin I 0.023 (0.000-0.034) ng/mL Total Protein (6.3-8.2) g/dL Albumin (3.5-5.0) g/dL Amylase (30-110) U/L Lipase (23-300) U/L Disposition Referrals: Alexx Gee MD [Primary Care Provider] - 1-2 days
--- NOTE | 2024-12-07 02:33 | CT ---
EXAM: CT Angiography Chest With Intravenous Contrast CLINICAL HISTORY: ITS.REASON CT Reason: dyspnea, possible PE TECHNIQUE: Axial computed tomographic angiography images of the chest with intravenous contrast. CTDI is 11.9 mGy and DLP is 424.7 mGy-cm. This CT exam was performed using one or more of the following dose reduction techniques: automated exposure control, adjustment of the mA and/or kV according to patient size, and/or use of iterative reconstruction technique. MIP reconstructed images were created and reviewed. COMPARISON: Chest x-ray of 12/07/2024. 09/25/2024. FINDINGS: Pulmonary arteries: Central pulmonary arteries are unremarkable. Limited evaluation of the peripheral branches the pulmonary arteries which are grossly unremarkable but significantly limited in assessment. Aorta: Atherosclerotic disease of the thoracic aorta. No thoracic aortic aneurysm. Lungs: There is consolidation at the right lower lobe possibly on the basis of pneumonia. There is bronchiectasis. Scarring and subsegmental atelectasis noted at the left lower lobe. Pleural space: Moderate to large right pleural effusion is noted. No pneumothorax. Heart: Unremarkable. No cardiomegaly. No significant pericardial effusion. No evidence of RV dysfunction. Thyroid: The visualized thyroid gland is unremarkable. Bones/joints: Sternotomy wires are noted in place. No acute fracture. No dislocation. Soft tissues: Unremarkable. Lymph nodes: Unremarkable. No enlarged lymph nodes. Other findings: Moderate to severe degenerative disease of the thoracic spine. IMPRESSION: 1. There is extensive consolidative change at the right lower lobe most suggestive of right lower lobe pneumonia. Other etiologies cannot be entirely excluded and follow-up in 4-6 weeks following treatment is advised to document resolution. 2. Moderate to large right pleural effusion presumably parapneumonic effusion. 3. No pathologic lymphadenopathy. 4. No central pulmonary emboli. 5. Limited evaluation of the peripheral branches the pulmonary arteries which are grossly unremarkable.
[2024-12-07] MEDS: AZITHROMYCIN 500 MG TAB PO STA (04:15)
[2024-12-07] MEDS: oxyCODONE-APAP 10-325MG 1 EACH TAB PO PRN ×2 (04:15→14:31)
[2024-12-07] MEDS ORDERED: ONDANSETRON 4 MG/2 ML VIAL IVP PRN (05:20)
[2024-12-07] MEDS ORDERED: NALOXONE 0.4 MG/ML 1 ML VIAL IV PRN (05:20)
[2024-12-07] MEDS ORDERED: ACETAMINOPHEN TAB 325 MG TAB PO PRN (05:20)
[2024-12-07] MEDS ORDERED: FLUTICASONE NASAL 50MCG/SPRAY 16GM BTL EA NOSTRIL PRN (05:24)
[2024-12-07] MEDS ORDERED: LIDOCAINE 4% PATCH TOPICAL PRN (05:24)
[2024-12-07] MEDS ORDERED: IPRATROPIUM-ALBUTEROL 3 ML NEB INHALATION PRN (05:24)
[2024-12-07] MEDS: SODIUM CHLORIDE 0.9% 1,000 ML IV SCH (06:05)
[2024-12-07] MEDS: diphenhydrAMINE 50 MG/ML 1 ML VIAL IVP STA (06:15)
[2024-12-07] MEDS: SODIUM BICARBONATE TAB 650 MG TAB PO SCH (08:25)
[2024-12-07] MEDS: EZETIMIBE 10 MG TAB PO SCH (08:25)
[2024-12-07] MEDS: SPIRONOLACTONE 25 MG TAB PO SCH (08:25)
[2024-12-07] MEDS: FAMOTIDINE 20 MG TAB PO SCH (08:25)
[2024-12-07] MEDS: FOLIC ACID 1 MG TAB PO SCH (08:26)
[2024-12-07] MEDS: FERROUS SULFATE 325 MG TAB PO SCH (08:26)
[2024-12-07] MEDS: SACUBITRIL/VALSARTAN 24 MG-26 MG TABLET PO SCH (08:26)
[2024-12-07] MEDS: TORSEMIDE 20 MG TAB PO SCH (08:26)
[2024-12-07] MEDS: CYCLOBENZAPRINE 10 MG TAB PO SCH (08:26)
[2024-12-07] MEDS: PANTOPRAZOLE 40 MG TABLET PO SCH (08:26)
[2024-12-07] MEDS: DAPAGLIFLOZIN PROPANEDIOL 10 MG TABLET PO SCH (08:26)
[2024-12-07] MEDS: TAMSULOSIN 0.4 MG CAP.ER.24H PO SCH (08:26)
[2024-12-07] MEDS: METOPROLOL SUCCINATE (ER) 25 MG TAB.ER.24H PO SCH (08:26)
[2024-12-07] MEDS: ASPIRIN 81 MG PO SCH (08:27)
[2024-12-07] MEDS ORDERED: APIXABAN 5 MG TAB PO SCH (09:00)
[2024-12-07] MEDS: ERGOCALCIFEROL 1,250 MCG (50,000 IU) CAPSULE PO SCH (09:45)
--- NOTE | 2024-12-07 10:56 | US ---
EXAMINATION TYPE: US chest DATE OF EXAM: 12/07/2024 COMPARISON: CTA Chest and CXR 12/07/24 CLINICAL INDICATION: Male, 69 years old with history of Pleural effusion, right; TECHNIQUE: Grayscale imaging of the chest. Targeted ultrasound of the posterior lower right hemithor ax FINDINGS: EXAM MEASUREMENTS: Right Pleural Effusion pocket size: 17.6 cm Right skin surface to fluid distance: 3.9 cm Right side marked for possible thoracentesis outside the dept. Pulmonologists are able to review the images in the patient?s EMR. IMPRESSIONS: Large right pleural effusion marked for possible thoracentesis. [facility], , 12/07/2024 10:54 AM
--- NOTE | 2024-12-07 12:27 | P.CNPUL ---
History of Present Illness Consult date: 12/07/24 Requesting physician: Alexx Gee Reason for consult: dyspnea, abnormal CXR/CT Chief complaint: Shortness of breath History of present illness: This is a pleasant 69-year-old male with past medical history significant for coronary artery disease status post PCI/stenting and CABG. His original CABG was over 20 years ago, more recently had a two-vessel redo off-pump CABG April,, severe ischemic cardiomyopathy with ejection fraction of 20 to 25%, hypertension, hyperlipidemia, atrial fibrillation anticoagulated with Eliquis, left carotid artery stenosis, chronic oxygen dependence on 4 L/min nasal cannula while at home, COPD, former tobacco dependence. He is known to have recurrent right-sided pleural effusions requiring multiple previous thoracentesis. Most recently drained October 18 2024. Fluid analysis has been a transudative effusion in the past. Fluid cytology previously negative for malignant cells. He presents here to the emergency room again early this morning with a 3 to 4- day history of increasing shortness of breath. Chest x-ray reveals density of the right lung base. CT angiogram revealed no evidence of pulmonary embolism. There is extensive consolidative changes in the right lower lobe most suggestive of right lower lobe pneumonia. Moderate to large right pleural effusion. White count 5.7. Hemoglobin 12.1. Platelets 146. INR 1.0. D-dimer 3.14. Sodium 137. Potassium 3.9. Bicarb 25. BUN 18. Creatinine 0.86. Glucose 105. AST 24. ALT 14. Troponin negative x 1. He is seen today in consultation on the regular medical floor. He is currently sitting up in bed. Awake and alert in no acute distress. Maintaining O2 saturations in the 90s on room air. He is is dyspneic with conversation. Dyspneic with minimal exertion. He denies any fever or chills. No phlegm production. Procalcitonin pending. Review of Systems REVIEW OF SYSTEMS: CONSTITUTIONAL: Denies any recent significant weight loss or weight gain. EYES: Denies change in vision. EARS, NOSE, MOUTH, THROAT: Denies headaches, denies sore throat. CARDIOVASCULAR: Denies chest pain, palpitations or syncopal episodes. RESPIRATORY: Positive for shortness of breath, no cough, congestion or hemoptysis. GASTROINTESTINAL: Denies change in appetite, denies abdominal pain GENITOURINARY: Denies hematuria, denies infections. MUSKULOSKELETAL: Denies pain, denies swelling. INTEGUMENTARY: Denies rash, denies eczema. NEUROLOGICAL: Denies recent memory loss, no recent seizure activity. PSYCHIATRIC: Denies anxiety, denies depression. HEMATOLOGIC/LYMPHATIC: Denies anemia, denies enlarged lymph nodes. Past Medical History Past Medical History: Coronary Artery Disease (CAD), Chest Pain / Angina, Heart Failure, COPD, GERD/Reflux, Hyperlipidemia, Hypertension, Myocardial Infarction ([place]), Osteoarthritis (OA), Sleep Apnea/CPAP/BIPAP Additional Past Medical History / Comment(s): Chronic back pain, left leg weakness. 4LNC. States unsure about having had a heart attack. Last Myocardial Infarction Date:: 11/11/22 History of Any Multi-Drug Resistant Organisms: None Reported Past Surgical History: Back Surgery, Cholecystectomy, Coronary Bypass/CABG, Heart Catheterization With Stent Additional Past Surgical History / Comment(s): Back surgery X2 with cage, left tennis elbow surgery, heart stents X7, colonoscopy. emergency CABG [facility], thromb[facility]. April Past Anesthesia/Blood Transfusion Reactions: No Reported Reaction Additional Past Anesthesia/Blood Transfusion Reaction / Comment(s): Pt received blood during CABG without reaction. Date of Last Stent Placement:: Oct 2022 Past Psychological History: Anxiety, Depression, PTSD Smoking Status: Former smoker, Vaper Past Alcohol Use History: None Reported Past Drug Use History: None Reported - Past Family History Father Family Medical History: Coronary Artery Disease (CAD), Deep Vein Thrombosis (DVT), GERD/Reflux, Hyperlipidemia, Myocardial Infarction ([place]) Additional Family Medical History / Comment(s): Father of a [place] in his 80's. Mother Family Medical History: Coronary Artery Disease (CAD), Myocardial Infarction ([place]) Additional Family Medical History / Comment(s): Mother of a [place]. Brother(s) Family Medical History: Myocardial Infarction ([place]) Additional Family Medical History / Comment(s): . Sister(s) Family Medical History: Cancer, Diabetes Mellitus Additional Family Medical History / Comment(s): Lung cancer. Other sister had Diabetes. Medications and Allergies Home Medications Medication Instructions Recorded Confirmed Type Ezetimibe [Zetia] 10 mg PO DAILY #90 tab 11/18/22 12/07/24 Rx Fluticasone Nasal [place] [Flonase 1 spray EA NOSTRIL BID PRN 01/27/23 12/07/24 History Nasal [place]] Sodium Bicarbonate Tab 650 mg PO TID #100 tab 01/25/24 12/07/24 Rx Ergocalciferol [Vitamin D2 (1250 1,250 mcg PO Q14D 05/10/24 12/07/24 History Mcg = 96987 Iu)] Ferrous Sulfate [Iron (65 MG 325 mg PO DAILY 05/10/24 12/07/24 History Elemental)] Gabapentin [Neurontin] 100 mg PO TID 05/10/24 12/07/24 History Dapagliflozin Propanediol [Farxiga] 10 mg PO DAILY tab 05/24/24 12/07/24 Rx Ipratropium-Albuterol Nebulize 3 ml INHALATION RT-Q2H PRN each 05/24/24 12/07/24 Rx [Duoneb 0.5 mg-3 mg/3 ml Soln] ALPRAZolam [Xanax] 2 mg PO TID 07/27/24 12/07/24 History Albuterol Inhaler [Ventolin Hfa 2 puff INHALATION RT-Q6H PRN 09/05/24 12/07/24 History Inhaler] Aspirin EC [Ecotrin Low Dose] 81 mg PO DAILY 09/05/24 12/07/24 History Folic Acid 1 mg PO DAILY 09/05/24 12/07/24 History Omeprazole [PriLOSEC] 20 mg PO DAILY 09/05/24 12/07/24 History Tamsulosin [Flomax] 0.4 mg PO DAILY 09/05/24 12/07/24 History allopurinoL [Zyloprim] 100 mg PO DAILY 09/05/24 12/07/24 History rOPINIRole HCL [Requip] 0.25 mg PO HS 09/05/24 12/07/24 History oxyCODONE-APAP 10-325MG [Percocet 1 tab PO Q4HR PRN 09/25/24 12/07/24 History 10-325 mg] Cyclobenzaprine [Flexeril] 5 mg PO TID PRN 7 Days #21 tablet 11/14/24 12/07/24 Rx Lidocaine 5% Patch [Lidoderm 5% 1 patch TOPICAL DAILY PRN 14 Days 11/14/24 12/07/24 Rx Patch] #14 patch Apixaban [Eliquis] 2.5 mg PO BID 12/07/24 12/07/24 History Furosemide [Lasix] 40 mg PO DAILY 12/07/24 12/07/24 History Morphine Sulfate Ir [MSIR] 15 mg PO Q6H PRN 12/07/24 12/07/24 History carvediloL [Coreg] 3.125 mg PO BID 12/07/24 12/07/24 History haloperidoL [Haldol] 0.5 mg PO BID 12/07/24 12/07/24 History Allergies Allergy/AdvReac Type Severity Reaction Status Date / Time latex Allergy Swelling Verified 12/07/24 10:04 atorvastatin [From Lipitor] AdvReac JOINT PAIN Verified 12/07/24 10:04 Physical Exam Vitals: Vital Signs Temp Pulse Pulse Resp BP BP Pulse Ox 12/07/24 07:45 98.0 F 79 18 127/80 97 12/07/24 06:00 81 18 106/65 93 L 12/07/24 04:24 88 18 112/70 93 L 12/07/24 03:38 79 16 110/70 92 L 12/07/24 01:48 76 18 138/60 12/06/24 23:50 98.3 F 82 18 128/77 96 Intake and Output 12/06/24 12/07/24 12/07/24 22:59 06:59 14:59 Other: Weight 99.79 kg GENERAL EXAM: Alert, pleasant 69-year-old male, on room air, fairly comfortable in no apparent distress. HEAD: Normocephalic. EYES: Normal reaction of pupils, equal size. NOSE: Clear with pink turbinates. THROAT: No erythema or exudates. NECK: No masses, no JVD. CHEST: No chest wall deformity. LUNGS: Equal air entry with crackles, diminished in the right lung base. CVS: S1 and S2 normal with no audible murmur, regular rhythm. ABDOMEN: No hepatosplenomegaly, normal bowel sounds, no guarding or rigidity. SPINE: No scoliosis or deformity SKIN: No rashes CENTRAL NERVOUS SYSTEM: No focal deficits, tone is normal in all 4 extremities. EXTREMITIES: There is no peripheral edema. No clubbing, no cyanosis. Peripheral pulses are intact. Results - Laboratory Findings CBC and BMP: 12/07/24 00:20 12/07/24 00:20 PT/INR, D-dimer PT 11.1 sec (10.0-12.5) 12/07/24 00:20 INR 1.0 (<1.2) 12/07/24 00:20 D-Dimer 3.14 mg/L FEU (<0.60) H 12/07/24 00:20 Abnormal lab findings: Abnormal Labs 12/07/24 12/07/24 12/07/24 00:20 00:20 00:20 Hgb 12.1 L Hct 38.8 L RDW 17.0 H Plt Count 146 L D-Dimer 3.14 H Glucose 105 H Alkaline Phosphatase 140 H - Diagnostic Findings Chest x-ray: image reviewed CT scan - chest: image reviewed Assessment and Plan Assessment: Dyspnea secondary to recurrent right sided pleural effusion. Previous fluid analysis was transudate. Previous cytology is negative for malignancy Recurrent large right-sided pleural effusions. Drained last on 10/18/2024 with 1.5 L removed. Fluid cytology negative for malignancy Coronary artery disease, with previous PCI/stenting and CABG over 20 years ago, subsequent two-vessel redo off-pump CABG April, Ischemic cardiomyopathy, echocardiogram from August, revealed a severely reduced left ventricular ejection fraction of 20 to 25%, as well as, moderate to severe mitral regurgitation Paroxysmal atrial fibrillation, currently sinus mechanism, anticoagulated on Eliquis Hypertension Hyperlipidemia Left internal carotid artery stenosis, 50-79% Chronic anemia Former tobacco dependence Severe COPD , FEV1 43% of predicted Chronic hypoxemic respiratory failure, normally maintained on 4 L/min nasal cannula Obstructive sleep apnea Chronic back pain with history of back surgery Plan: The patient was seen and evaluated Chest x-ray, labs and medications reviewed Will obtain an ultrasound of the right chest Place Eliquis on hold Currently stable and on room air Resume his other home medications Check a proBNP Check a procalcitonin We will continue to follow and make further recommendations based on his clinical status I have personally seen and examined the patient, performed the documentation and the assessment and plan as written. Number of minutes spent on the visit: 20 Dictation was produced using Outright dictation software. Please excuse any grammatical, word or spelling errors.
[2024-12-07] MEDS ORDERED: MORPHINE SULFATE IR 15 MG TABLET PO PRN (14:10)
[2024-12-07] MEDS: GABAPENTIN 100 MG CAP PO SCH (15:56)
[2024-12-07] MEDS: ALPRAZolam 1 MG TAB PO SCH (15:56)
[2024-12-07] MEDS: carvediloL 3.125 MG TAB PO SCH (17:48)
[2024-12-07] MEDS: APIXABAN 2.5 MG TABLET PO SCH (20:22)
[2024-12-07] MEDS: haloperidoL 0.5 MG TAB PO SCH (20:22)
--- NOTE | 2024-12-08 04:22 | HP ---
HISTORY AND PHYSICAL CHIEF COMPLAINT: Shortness of breath. HISTORY OF PRESENT ILLNESS: This is another admission for this 69-year-old gentleman with end-stage and severe coronary artery disease, and COPD. He presented to the emergency room with increasing shortness of breath and was found to have an increasing right pleural effusion. This has been tapped before. He denies any chest pain, fever, chills, etc. REVIEW OF SYSTEMS: Otherwise, unremarkable. PHYSICAL EXAMINATION: VITAL SIGNS: Normal. HEAD, EARS, EYES, NOSE, MOUTH, AND THROAT: Normal. CHEST: Clear. Breath sounds are poor on the right. CARDIAC: Unremarkable except for an S4. ABDOMEN: Soft and nontender. EXTREMITIES: Normal. ASSESSMENT: He is admitted to the hospital with diagnoses of: 1. Shortness of breath. 2. Acute on chronic congestive heart failure. 3. Atherosclerotic cardiomyopathy. 4. Coronary artery disease. 5. Right pleural effusion. PLAN: 1. Bedrest. 2. IV fluids. 3. Consult with Pulmonology. MMDEYANIRA / NATHALYN: [id number] /
[2024-12-08] MEDS: FUROSEMIDE 40 MG TAB PO SCH (08:26)
[2024-12-08] MEDS: allopurinoL 100 MG TAB PO SCH (08:27)
--- NOTE | 2024-12-08 11:06 | XR ---
EXAMINATION TYPE: XR chest 1V portable DATE OF EXAM: 12/08/2024 COMPARISON: 12/07/2024 CLINICAL INDICATION: Male, 69 years old with history of Post right thoracentesis; TECHNIQUE: Single frontal view of the chest is obtained. FINDINGS: There is possibly a mild reduction in the right pleural effusion following thoracentesis. T here is no pneumothorax. The left lung is clear. The heart and pulmonary vasculature are normal for technique. The osseous structures are intact. IMPRESSION: Mild reduction in the right pleural effusion following thoracentesis. Small to moderate right pleural effusion persists. There is no pneumothorax. [facility], , 12/08/2024 11:04 AM
[2024-12-08 11:56] LABS: Total Protein 7.1 g/dL (6.3-8.2)
--- NOTE | 2024-12-08 13:11 | P.PN ---
Subjective Progress Note Date: 12/08/24 This is a pleasant 69-year-old male with past medical history significant for coronary artery disease status post PCI/stenting and CABG. His original CABG was over 20 years ago, more recently had a two-vessel redo off-pump CABG April,, severe ischemic cardiomyopathy with ejection fraction of 20 to 25%, hypertension, hyperlipidemia, atrial fibrillation anticoagulated with Eliquis, left carotid artery stenosis, chronic oxygen dependence on 4 L/min nasal cannula while at home, COPD, former tobacco dependence. He is known to have recurrent right-sided pleural effusions requiring multiple previous thoracentesis. Most recently drained October 18 2024. Fluid analysis has been a transudative effus ion in the past. Fluid cytology previously negative for malignant cells. He presents here to the emergency room again early this morning with a 3 to 4-day history of increasing shortness of breath. Chest x-ray reveals density of the right lung base. CT angiogram revealed no evidence of pulmonary embolism. There is extensive consolidative changes in the right lower lobe most suggestive of right lower lobe pneumonia. Moderate to large right pleural effusion. White count 5.7. Hemoglobin 12.1. Platelets 146. INR 1.0. D-dimer 3.14. Sodium 137. Potassium 3.9. Bicarb 25. BUN 18. Creatinine 0.86. Glucose 105. AST 24. ALT 14. Troponin negative x 1. He is seen today in consultation on the regular medical floor. He is currently sitting up in bed. Awake and alert in no acute distress. Maintaining O2 saturations in the 90s on room air. He is is dyspneic with conversation. Dyspneic with minimal exertion. He denies any fever or chills. No phlegm production. Procalcitonin pending. The patient is seen today December 08, 2024 in follow-up on the regular medical floor. He is currently sitting up at the bedside. Awake and alert in no acute distress. Maintaining good O2 saturations in the 90s on room air. His procalcitonin was negative at 0.09. Blood cultures revealed no growth. proBNP 2790. His Eliquis was placed on hold yesterday. Dr. Merritt did perform a right sided thoracentesis this morning with 1.5 L of pale yellow fluid returned. Fluid analysis and cytology pending. Follow-up chest x-ray revealed no evidence of pneumothorax. He remains on oral diuretics. Objective - Vital Signs Vital signs: Vital Signs Temp 97.9 F 12/08/24 07:55 Pulse 71 12/08/24 07:55 Resp 16 12/08/24 07:55 BP 98/54 12/08/24 07:55 Pulse Ox 92 L 12/08/24 07:55 FiO2 Intake & Output 12/07/24 12/08/24 12/08/24 18:59 06:59 18:59 Intake Total 360 Balance 360 Weight 71 kg Intake: Oral 360 Other: Voiding Method Toilet # Voids 1 3 - Exam GENERAL EXAM: Alert, pleasant 69-year-old male, on room air, sitting up in bed, in no apparent distress. HEAD: Normocephalic. EYES: Normal reaction of pupils, equal size. NOSE: Clear with pink turbinates. THROAT: No erythema or exudates. NECK: No masses, no JVD. CHEST: No chest wall deformity. LUNGS: Equal air entry with crackles, diminished in the right lung base. CVS: S1 and S2 normal with no audible murmur, regular rhythm. ABDOMEN: No hepatosplenomegaly, normal bowel sounds, no guarding or rigidity. SPINE: No scoliosis or deformity SKIN: No rashes CENTRAL NERVOUS SYSTEM: No focal deficits, tone is normal in all 4 extremities. EXTREMITIES: There is no peripheral edema. No clubbing, no cyanosis. Peripheral pulses are intact. - Labs CBC & Chem 7: 12/07/24 00:20 12/07/24 00:20 Labs: Microbiology - Last 24 Hours (Table) 12/07/24 04:20 Blood Culture - Preliminary Blood Assessment and Plan Assessment: Dyspnea secondary to recurrent right sided pleural effusion. Status post right sided thoracentesis today December 08, 2024 with 1.5 L of cloudy yellow fluid removed. Fluid analysis and cytology pending. Recurrent large right-sided pleural effusions. Drained last on 10/18/2024 with 1.5 L removed. Fluid cytology negative for malignancy Coronary artery disease, with previous PCI/stenting and CABG over 20 years ago, subsequent two-vessel redo off-pump CABG April, Ischemic cardiomyopathy, echocardiogram from August, revealed a severely reduced left ventricular ejection fraction of 20 to 25%, as well as, moderate to severe mitral regurgitation Paroxysmal atrial fibrillation, currently sinus mechanism, anticoagulated on Eliquis Hypertension Hyperlipidemia Left internal carotid artery stenosis, 50-79% Chronic anemia Former tobacco dependence Severe COPD , FEV1 43% of predicted Chronic hypoxemic respiratory failure, normally maintained on 4 L/min nasal cannula Obstructive sleep apnea Chronic back pain with history of back surgery Plan: The patient was seen and evaluated Chest x-ray, labs and medications reviewed Right sided thoracentesis performed today Follow-up chest x-ray revealed no pneumothorax He remains stable and on room air Cleared for discharge from the pulmonary standpoint Could continue on his Eliquis Follow-up in our office in 1 week I have personally seen and examined the patient, performed the documentation and the assessment and plan as written. Number of minutes spent on the visit: 10 Dictation was produced using [employer] dictation software. Please excuse any grammatical, word or spelling errors.
[2024-12-08] MEDS: CYCLOBENZAPRINE 5 MG TAB PO PRN (18:52)
--- NOTE | 2024-12-08 20:22 | OP ---
OPERATIVE REPORT DATE OF SERVICE : PROCEDURE: Right-sided thoracentesis. PREOPERATIVE DIAGNOSIS: Pleural effusion. POSTOPERATIVE DIAGNOSIS: Pleural effusion. ANESTHESIA USED: 2 mL of 1% lidocaine. PROCEDURE IN DETAIL: The patient was placed in a sitting upright position, the area below the right scapula was prepared in a sterile fashion. Drapes were applied. The area was locally anesthetized at the level of the 8th intercostal space and tip of the scapula, and a 26- gauge needle inserted into the pleural space until fluid was localized. Then a small tiny incision was made, and a standard thoracentesis catheter and needle were used, advanced at the same site into the pleural space and as soon as the fluid was obtained, the catheter was advanced over the needle and the needle was pulled out of the pleural space. Freely flowing fluid was removed, was able to remove 1500 mL of ron colored fluid, fluid again was free-flowing, sent for different diagnostic studies. Procedure was well tolerated, no complications. The chest x-ray showed no evidence of pneumothorax post procedure. MMODL / IJN: [id number] /
[2024-12-09 07:54] LABS: LDH, Body Fluid Source Pleural Fluid; T. Protein, Body Fluid Source Pleural Fluid; Total Protein, Body Fluid 3400 mg/dL
[2024-12-09 10:37] LABS: Appearance,BF Clear (Clear)
--- NOTE | 2024-12-09 14:31 | P.PN ---
Subjective Progress Note Date: 12/09/24 This is a pleasant 69-year-old male with past medical history significant for coronary artery disease status post PCI/stenting and CABG. His original CABG was over 20 years ago, more recently had a two-vessel redo off-pump CABG April,, severe ischemic cardiomyopathy with ejection fraction of 20 to 25%, hypertension, hyperlipidemia, atrial fibrillation anticoagulated with Eliquis, left carotid artery stenosis, chronic oxygen dependence on 4 L/min nasal cannula while at home, COPD, former tobacco dependence. He is known to have recurrent right-sided pleural effusions requiring multiple previous thoracentesis. Most recently drained October 18 2024. Fluid analysis has been a transudative effus ion in the past. Fluid cytology previously negative for malignant cells. He presents here to the emergency room again early this morning with a 3 to 4-day history of increasing shortness of breath. Chest x-ray reveals density of the right lung base. CT angiogram revealed no evidence of pulmonary embolism. There is extensive consolidative changes in the right lower lobe most suggestive of right lower lobe pneumonia. Moderate to large right pleural effusion. White count 5.7. Hemoglobin 12.1. Platelets 146. INR 1.0. D-dimer 3.14. Sodium 137. Potassium 3.9. Bicarb 25. BUN 18. Creatinine 0.86. Glucose 105. AST 24. ALT 14. Troponin negative x 1. He is seen today in consultation on the regular medical floor. He is currently sitting up in bed. Awake and alert in no acute distress. Maintaining O2 saturations in the 90s on room air. He is is dyspneic with conversation. Dyspneic with minimal exertion. He denies any fever or chills. No phlegm production. Procalcitonin pending. The patient is seen today December 08, 2024 in follow-up on the regular medical floor. He is currently sitting up at the bedside. Awake and alert in no acute distress. Maintaining good O2 saturations in the 90s on room air. His procalcitonin was negative at 0.09. Blood cultures revealed no growth. proBNP 2790. His Eliquis was placed on hold yesterday. Dr. Merritt did perform a right sided thoracentesis this morning with 1.5 L of pale yellow fluid returned. Fluid analysis and cytology pending. Follow-up chest x-ray revealed no evidence of pneumothorax. He remains on oral diuretics. The patient is seen today December 09, 2024 in follow-up on the regular medical floor. He is awake and alert in no acute distress. Maintaining good O2 saturations in the 90s on room air. He has been afebrile. Hemodynamically stable. Breathing easier today compared to yesterday. Post right sided thoracentesis. Total protein 3.4. LDH 110. Cytology pending. He has been resumed on Eliquis. He is continued on bronchodilators. Remains on oral diuretics. Pain is well-managed. Objective - Vital Signs Vital signs: Vital Signs Temp 97.8 F 12/09/24 08:00 Pulse 69 12/09/24 08:00 Resp 18 12/09/24 08:00 BP 99/63 12/09/24 08:00 Pulse Ox 95 12/09/24 08:00 FiO2 Intake & Output 12/08/24 12/09/24 12/09/24 18:59 06:59 18:59 Intake Total 720 Balance 720 Weight 68.5 kg Intake: Oral 720 Other: Voiding Method Toilet Toilet Toilet # Voids 1 4 - Exam GENERAL EXAM: Alert, pleasant 69-year-old male, on room air, resting in bed, in no apparent distress. HEAD: Normocephalic. EYES: Normal reaction of pupils, equal size. NOSE: Clear with pink turbinates. THROAT: No erythema or exudates. NECK: No masses, no JVD. CHEST: No chest wall deformity. LUNGS: Equal air entry with crackles, diminished in the right lung base. CVS: S1 and S2 normal with no audible murmur, regular rhythm. ABDOMEN: No hepatosplenomegaly, normal bowel sounds, no guarding or rigidity. SPINE: No scoliosis or deformity SKIN: No rashes CENTRAL NERVOUS SYSTEM: No focal deficits, tone is normal in all 4 extremities. EXTREMITIES: There is no peripheral edema. No clubbing, no cyanosis. Peripheral pulses are intact. - Labs CBC & Chem 7: 12/07/24 00:20 12/07/24 00:20 Labs: Microbiology - Last 24 Hours (Table) 12/08/24 10:30 Gram Stain - Preliminary Pleural Fluid 12/07/24 04:20 Blood Culture - Preliminary Blood Assessment and Plan Assessment: Dyspnea secondary to recurrent right sided pleural effusion. Status post right sided thoracentesis December 08, 2024 with 1.5 L of cloudy yellow fluid removed. Fluid analysis and cytology pending Recurrent large right-sided pleural effusions. Drained last on 10/18/2024 with 1.5 L removed. Fluid cytology negative for malignancy Coronary artery disease, with previous PCI/stenting and CABG over 20 years ago, subsequent two-vessel redo off-pump CABG April, Ischemic cardiomyopathy, echocardiogram from August, revealed a severely reduced left ventricular ejection fraction of 20 to 25%, as well as, moderate to severe mitral regurgitation Paroxysmal atrial fibrillation, currently sinus mechanism, anticoagulated on Eliquis Hypertension Hyperlipidemia Left internal carotid artery stenosis, 50-79% Chronic anemia Former tobacco dependence Severe COPD , FEV1 43% of predicted Chronic hypoxemic respiratory failure, normally maintained on 4 L/min nasal cannula Obstructive sleep apnea Chronic back pain with history of back surgery Plan: The patient was seen and evaluated Labs and medications reviewed Eliquis resumed He remains stable and on room air Cleared for discharge from the pulmonary standpoint Follow-up in our office in 1 week I have personally seen and examined the patient, performed the documentation and the assessment and plan as written. Number of minutes spent on the visit: 20 Dictation was produced using [employer] dictation software. Please excuse any grammatical, word or spelling errors.
[2024-12-09] MEDS: ALBUTEROL NEBULIZED 2.5 MG/3 ML INHALATION PRN (14:56)
[2024-12-09 16:18] VITALS: BMI 22.3
--- NOTE | 2024-12-09 17:11 | PN ---
PROGRESS NOTE DATE OF SERVICE: 12/08/2024 CHIEF COMPLAINT: Acute congestive heart failure with right pleural effusion. HISTORY OF PRESENT ILLNESS: This gentleman had the right effusion tapped today. He is having some discomfort, but he believes he is breathing a little bit better. PHYSICAL EXAMINATION: VITAL SIGNS: Normal. GENERAL: Color is normal. CHEST: Demonstrates better breath sounds on the left than on the right. ABDOMEN: Soft, nontender. IMPRESSION: 1. Right pleural effusion, status post thoracentesis. 2. Chronic obstructive pulmonary disease. 3. Acute on chronic congestive heart failure. PLAN: No change in his program, and we will see how he does tomorrow and whether or not he can be discharged. MMODL / IJN: [id number] /
--- NOTE | 2024-12-10 03:16 | PN ---
PROGRESS NOTE DATE OF SERVICE: 12/09/2024 CHIEF COMPLAINT: Acute on chronic congestive heart failure. HISTORY OF PRESENT ILLNESS: This gentleman is still quite dyspneic. He is still having some discomfort in the right chest area. PHYSICAL EXAMINATION: VITAL SIGNS: Normal. CHEST: Demonstrates decreased breath sounds on the right, but they are present. CARDIAC: Reveals an S4. ABDOMEN: Soft, nontender. IMPRESSION: 1. Acute congestive heart failure. 2. Chronic congestive heart failure. 3. Atherosclerotic cardiomyopathy. 4. Coronary artery disease. 5. Right pleural effusion. PLAN: Try to increase activity and see if he is able to be discharged. He is being followed by Pulmonology . MMODL / IJN: [id number] /
[2024-12-10 11:29] LABS: Anisocytosis Slight; Basophils % (A) 1 %; Eosinophils # (A) 0.1 k/uL (0-0.7); Eosinophils % (A) 2 %; HGB 12.9 gm/dL (13.0-17.5); Hypochromasia Slight; Lymphocytes # (A) 1.1 k/uL (1.0-4.8); Lymphocytes % (A) 22 %; MCH 26.3 pg (25.0-35.0); MCHC 31.5 g/dL (31.0-37.0); MCV 83.7 fL (80.0-100.0); Mean Platelet Volume 10.1; Monocytes # (A) 0.6 k/uL (0-1.0); Monocytes % (A) 11 %; Neutrophils # (A) 3.2 k/uL (1.3-7.7); Neutrophils % (A) 62 %; Platelet Count 141 k/uL (150-450); RDW 16.9 % (11.5-15.5); WBC 5.1 k/uL (3.8-10.6)
[2024-12-10 11:34] LABS: ALT 13 U/L (4-49); AST 23 U/L (17-59); African American GFR (CKD) 81 (>60 ml/min/1.73 sqM); Albumin 3.8 g/dL (3.5-5.0); Albumin/Globulin Ratio 1.2; Alkaline Phosphatase 161 U/L (38-126); Anion Gap 8 mmol/L; Blood Urea Nitrogen 19 mg/dL (9-20); Calcium 9.3 mg/dL (8.4-10.2); Carbon Dioxide 33 mmol/L (22-30); Chloride 95 mmol/L (98-107); Globulin 3.1 g/dL; Glucose 89 mg/dL (74-99); Non-African American GFR(CKD) 70 (>60 ml/min/1.73 sqM); Potassium 3.8 mmol/L (3.5-5.1); Sodium 136 mmol/L (137-145); Total Bilirubin 0.5 mg/dL (0.2-1.3); Total Protein 6.9 g/dL (6.3-8.2)
--- NOTE | 2024-12-10 14:07 | P.PN ---
Subjective Progress Note Date: 12/10/24 This is a pleasant 69-year-old male with past medical history significant for coronary artery disease status post PCI/stenting and CABG. His original CABG was over 20 years ago, more recently had a two-vessel redo off-pump CABG April,, severe ischemic cardiomyopathy with ejection fraction of 20 to 25%, hypertension, hyperlipidemia, atrial fibrillation anticoagulated with Eliquis, left carotid artery stenosis, chronic oxygen dependence on 4 L/min nasal cannula while at home, COPD, former tobacco dependence. He is known to have recurrent right-sided pleural effusions requiring multiple previous thoracentesis. Most recently drained October 18 2024. Fluid analysis has been a transudative effus ion in the past. Fluid cytology previously negative for malignant cells. He presents here to the emergency room again early this morning with a 3 to 4-day history of increasing shortness of breath. Chest x-ray reveals density of the right lung base. CT angiogram revealed no evidence of pulmonary embolism. There is extensive consolidative changes in the right lower lobe most suggestive of right lower lobe pneumonia. Moderate to large right pleural effusion. White count 5.7. Hemoglobin 12.1. Platelets 146. INR 1.0. D-dimer 3.14. Sodium 137. Potassium 3.9. Bicarb 25. BUN 18. Creatinine 0.86. Glucose 105. AST 24. ALT 14. Troponin negative x 1. He is seen today in consultation on the regular medical floor. He is currently sitting up in bed. Awake and alert in no acute distress. Maintaining O2 saturations in the 90s on room air. He is is dyspneic with conversation. Dyspneic with minimal exertion. He denies any fever or chills. No phlegm production. Procalcitonin pending. The patient is seen today December 08, 2024 in follow-up on the regular medical floor. He is currently sitting up at the bedside. Awake and alert in no acute distress. Maintaining good O2 saturations in the 90s on room air. His procalcitonin was negative at 0.09. Blood cultures revealed no growth. proBNP 2790. His Eliquis was placed on hold yesterday. Dr. Merritt did perform a right sided thoracentesis this morning with 1.5 L of pale yellow fluid returned. Fluid analysis and cytology pending. Follow-up chest x-ray revealed no evidence of pneumothorax. He remains on oral diuretics. The patient is seen today December 09, 2024 in follow-up on the regular medical floor. He is awake and alert in no acute distress. Maintaining good O2 saturations in the 90s on room air. He has been afebrile. Hemodynamically stable. Breathing easier today compared to yesterday. Post right sided thoracentesis. Total protein 3.4. LDH 110. Cytology pending. He has been resumed on Eliquis. He is continued on bronchodilators. Remains on oral diuretics. Pain is well-managed. The patient is seen today December 10, 2024 in follow-up on the regular medical floor. He is resting comfortably in bed. Awake and alert in no acute distress. Denies any shortness of breath, cough or congestion. He has been up ambulating in his room. He is afebrile. Hemodynamically stable. He is maintaining good O2 saturation in the 90s on room air. No IV fluids. He is continued on bronchodilators. Continued on Eliquis. Remains on oral diuretics. White count 5.1. Hemoglobin 12.9. Platelets 141. Sodium 136. Potassium 3.8. Bicarb 33. BUN 19. Creatinine 1.09. Glucose 161. Pleural fluid cytology report pending. Objective - Vital Signs Vital signs: Vital Signs Temp 98.3 F 12/10/24 06:42 Pulse 80 12/10/24 06:42 Resp 18 12/10/24 06:42 BP 97/60 12/10/24 06:42 Pulse Ox 94 L 12/10/24 06:42 FiO2 Intake & Output 12/09/24 12/10/24 12/10/24 18:59 06:59 18:59 Weight 68.5 kg 77.4 kg Other: Voiding Method Toilet Toilet # Voids 2 2 # Bowel Movements 1 - Exam GENERAL EXAM: Alert, calm, cooperative 69-year-old male, on room air, resting in bed, in no apparent distress. HEAD: Normocephalic. EYES: Normal reaction of pupils, equal size. NOSE: Clear with pink turbinates. THROAT: No erythema or exudates. NECK: No masses, no JVD. CHEST: No chest wall deformity. LUNGS: Equal air entry with crackles, diminished in the right lung base. CVS: S1 and S2 normal with no audible murmur, regular rhythm. ABDOMEN: No hepatosplenomegaly, normal bowel sounds, no guarding or rigidity. SPINE: No scoliosis or deformity SKIN: No rashes CENTRAL NERVOUS SYSTEM: No focal deficits, tone is normal in all 4 extremities. EXTREMITIES: There is no peripheral edema. No clubbing, no cyanosis. Peripheral pulses are intact. - Labs CBC & Chem 7: 12/10/24 10:53 12/10/24 10:53 Labs: Abnormal Lab Results - Last 24 Hours (Table) 12/10/24 12/10/24 Range/Units 10:53 10:53 Hgb 12.9 L (13.0-17.5) gm/dL RDW 16.9 H (11.5-15.5) % Plt Count 141 L (150-450) k/uL Sodium 136 L (137-145) mmol/L Chloride 95 L (98-107) mmol/L Carbon Dioxide 33 H (22-30) mmol/L Alkaline Phosphatase 161 H (38-126) U/L Microbiology - Last 24 Hours (Table) 12/07/24 04:20 Blood Culture - Preliminary Blood 12/08/24 10:30 Acid Fast Bacilli Smear - Preliminary Pleural Fluid 12/08/24 10:30 Gram Stain - Preliminary Pleural Fluid Body Fluid Culture - Preliminary Assessment and Plan Assessment: Dyspnea secondary to recurrent right sided pleural effusion. Status post right sided thoracentesis December 08, 2024 with 1.5 L of cloudy yellow fluid removed. Fluid cytology pending Recurrent large right-sided pleural effusions. Drained last on 10/18/2024 with 1.5 L removed. Fluid cytology negative for malignancy Coronary artery disease, with previous PCI/stenting and CABG over 20 years ago, subsequent two-vessel redo off-pump CABG April, Ischemic cardiomyopathy, echocardiogram from August, revealed a severely reduced left ventricular ejection fraction of 20 to 25%, as well as, moderate to severe mitral regurgitation Paroxysmal atrial fibrillation, currently sinus mechanism, anticoagulated on Eliquis Hypertension Hyperlipidemia Left internal carotid artery stenosis, 50-79% Chronic anemia Former tobacco dependence Severe COPD , FEV1 43% of predicted Chronic hypoxemic respiratory failure, normally maintained on 4 L/min nasal cannula Obstructive sleep apnea Chronic back pain with history of back surgery Plan: The patient was seen and evaluated Labs and medications reviewed He remains stable and on room air Cleared for discharge from the pulmonary standpoint Follow-up in our office in 1 week I have personally seen and examined the patient, performed the documentation and the assessment and plan as written. Number of minutes spent on the visit: 20 Dictation was produced using [employer] dictation software. Please excuse any grammatical, word or spelling errors.
--- NOTE | 2024-12-10 16:25 | XR ---
EXAMINATION TYPE: XR chest 2V DATE OF EXAM: 12/10/2024 2:12 PM COMPARISON: 12/08/2024 CLINICAL INDICATION: Male, 69 years old with history of SOB. Effusion, , TECHNIQUE: AP and lateral views FINDINGS: Median sternotomy wires are present with post-CABG changes. Heart mild to moderately enlarged. Diffus e interstitial densities persist. Worsening now moderate right pleural effusion extending up to the m id lung level. IMPRESSION: Worsening now moderate right pleural effusion with adjacent atelectasis and/or consolidation now exte nding to the mid lung level. Correlate for ongoing pulmonary vascular congestion. [facility], , 12/10/2024 4:23 PM
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
[2024-12-11 01:38] VITALS: PULSE 76; RESP 16
--- NOTE | 2024-12-11 03:01 | PN ---
PROGRESS NOTE DATE OF SERVICE: 12/10/2024 CHIEF COMPLAINT: Acute on chronic congestive heart failure. HISTORY OF PRESENT ILLNESS: This gentleman is still complaining of being very short of breath. He is hardly getting out of bed at all. He told me he was not having chest pain, but told the nurse he was. PHYSICAL EXAMINATION: CHEST: Breath sounds are diminished particularly on the right. CARDIAC: Normal. ABDOMEN: Soft, nontender. IMPRESSION: 1. Right pleural effusion. 2. Acute on chronic congestive heart failure. 3. Atherosclerotic cardiomyopathy. 4. Coronary artery disease. 5. Chronic obstructive pulmonary disease. 6. Depression. PLAN: Try to increase activity and start to look into a suitable discharge plan. MMODL / IJN: [id number] /
[2024-12-11 07:58] VITALS: BP 117/70; TEMP 97.9
--- NOTE | 2024-12-11 14:46 | P.PN ---
Subjective Progress Note Date: 12/11/24 This is a pleasant 69-year-old male with past medical history significant for coronary artery disease status post PCI/stenting and CABG. His original CABG was over 20 years ago, more recently had a two-vessel redo off-pump CABG April,, severe ischemic cardiomyopathy with ejection fraction of 20 to 25%, hypertension, hyperlipidemia, atrial fibrillation anticoagulated with Eliquis, left carotid artery stenosis, chronic oxygen dependence on 4 L/min nasal cannula while at home, COPD, former tobacco dependence. He is known to have recurrent right-sided pleural effusions requiring multiple previous thoracentesis. Most recently drained October 18 2024. Fluid analysis has been a transudative effus ion in the past. Fluid cytology previously negative for malignant cells. He presents here to the emergency room again early this morning with a 3 to 4-day history of increasing shortness of breath. Chest x-ray reveals density of the right lung base. CT angiogram revealed no evidence of pulmonary embolism. There is extensive consolidative changes in the right lower lobe most suggestive of right lower lobe pneumonia. Moderate to large right pleural effusion. White count 5.7. Hemoglobin 12.1. Platelets 146. INR 1.0. D-dimer 3.14. Sodium 137. Potassium 3.9. Bicarb 25. BUN 18. Creatinine 0.86. Glucose 105. AST 24. ALT 14. Troponin negative x 1. He is seen today in consultation on the regular medical floor. He is currently sitting up in bed. Awake and alert in no acute distress. Maintaining O2 saturations in the 90s on room air. He is is dyspneic with conversation. Dyspneic with minimal exertion. He denies any fever or chills. No phlegm production. Procalcitonin pending. The patient is seen today December 08, 2024 in follow-up on the regular medical floor. He is currently sitting up at the bedside. Awake and alert in no acute distress. Maintaining good O2 saturations in the 90s on room air. His procalcitonin was negative at 0.09. Blood cultures revealed no growth. proBNP 2790. His Eliquis was placed on hold yesterday. Dr. Merritt did perform a right sided thoracentesis this morning with 1.5 L of pale yellow fluid returned. Fluid analysis and cytology pending. Follow-up chest x-ray revealed no evidence of pneumothorax. He remains on oral diuretics. The patient is seen today December 09, 2024 in follow-up on the regular medical floor. He is awake and alert in no acute distress. Maintaining good O2 saturations in the 90s on room air. He has been afebrile. Hemodynamically stable. Breathing easier today compared to yesterday. Post right sided thoracentesis. Total protein 3.4. LDH 110. Cytology pending. He has been resumed on Eliquis. He is continued on bronchodilators. Remains on oral diuretics. Pain is well-managed. The patient is seen today December 10, 2024 in follow-up on the regular medical floor. He is resting comfortably in bed. Awake and alert in no acute distress. Denies any shortness of breath, cough or congestion. He has been up ambulating in his room. He is afebrile. Hemodynamically stable. He is maintaining good O2 saturation in the 90s on room air. No IV fluids. He is continued on bronchodilators. Continued on Eliquis. Remains on oral diuretics. White count 5.1. Hemoglobin 12.9. Platelets 141. Sodium 136. Potassium 3.8. Bicarb 33. BUN 19. Creatinine 1.09. Glucose 161. Pleural fluid cytology report pending. The patient is seen today December 11, 2024 in follow-up on the regular medical floor. He is currently sitting up in a chair at the bedside. Awake and alert in no acute distress. Denies any worsening shortness of breath, cough or congestion. Continues to maintain good O2 saturations in the mid 90s on room air. He is been afebrile. Hemodynamically stable. Chest x-ray does continue to show a right sided pleural effusion. Recent thoracentesis was performed. Pleural fluid cytology is negative for malignancy. Pleural fluid cultures were negative. Blood cultures were negative. Objective - Vital Signs Vital signs: Vital Signs Temp 97.9 F 12/11/24 07:04 Pulse 76 12/11/24 07:04 Resp 16 12/11/24 07:04 BP 117/70 12/11/24 07:04 Pulse Ox 95 12/11/24 07:04 FiO2 Intake & Output 12/10/24 12/11/24 12/11/24 18:59 06:59 18:59 Weight 75 kg Other: Voiding Method Toilet Toilet # Voids 3 3 # Bowel Movements 1 - Exam GENERAL EXAM: Alert, very pleasant 69-year-old male, on room air, resting in bed, in no apparent distress. HEAD: Normocephalic. EYES: Normal reaction of pupils, equal size. NOSE: Clear with pink turbinates. THROAT: No erythema or exudates. NECK: No masses, no JVD. CHEST: No chest wall deformity. LUNGS: Equal air entry with crackles, diminished in the right lung base. CVS: S1 and S2 normal with no audible murmur, regular rhythm. ABDOMEN: No hepatosplenomegaly, normal bowel sounds, no guarding or rigidity. SPINE: No scoliosis or deformity SKIN: No rashes CENTRAL NERVOUS SYSTEM: No focal deficits, tone is normal in all 4 extremities. EXTREMITIES: There is no peripheral edema. No clubbing, no cyanosis. Peripheral pulses are intact. - Labs CBC & Chem 7: 12/10/24 10:53 12/10/24 10:53 Labs: Microbiology - Last 24 Hours (Table) 12/08/24 10:30 Gram Stain - Preliminary Pleural Fluid Body Fluid Culture - Preliminary 12/07/24 04:20 Blood Culture - Preliminary Blood Assessment and Plan Assessment: Dyspnea secondary to recurrent right sided pleural effusion. Status post right sided thoracentesis December 08, 2024 with 1.5 L of cloudy yellow fluid removed. Fluid cytology for malignancy Recurrent large right-sided pleural effusions. Drained last on 10/18/2024 with 1.5 L removed. Fluid cytology negative for malignancy Coronary artery disease, with previous PCI/stenting and CABG over 20 years ago, subsequent two-vessel redo off-pump CABG April, Ischemic cardiomyopathy, echocardiogram from August, revealed a severely reduced left ventricular ejection fraction of 20 to 25%, as well as, moderate to severe mitral regurgitation Paroxysmal atrial fibrillation, currently sinus mechanism, anticoagulated on Eliquis Hypertension Hyperlipidemia Left internal carotid artery stenosis, 50-79% Chronic anemia Former tobacco dependence Severe COPD , FEV1 43% of predicted Chronic hypoxemic respiratory failure, normally maintained on 4 L/min nasal cannula Obstructive sleep apnea Chronic back pain with history of back surgery Plan: The patient was seen and evaluated X-ray and medications reviewed He remains stable and on room air Cleared for discharge May need a Pleurx catheter at some point Follow-up in our office in 1 week I have personally seen and examined the patient, performed the documentation and the assessment and plan as written. Number of minutes spent on the visit: 20 Dictation was produced using Clear[employer] dictation software. Please excuse any grammatical, word or spelling errors.
--- NOTE | 2024-12-12 13:11 | CDI ---
Documentation Clarification Form Date: 12/12/2024 01:01:46 PM From: Ewa Black Phone: Admit Date: 12/07/2024 05:20:00 AM Patient Name: Israel Simmons Visit Number: [id number] Discharge Date: 12/11/2024 12:49:00 PM ATTENTION: The Clinical Documentation Specialists (CDI) and [facility] Coding Staff appreciate your assistance in clarifying documentation. Please respond to the clarification below the line at the bottom and electronically sign. The CDI & [facility] Coding staff will review the response and follow-up if needed. Please note: Queries are made part of the Legal Health Record. If you have any questions, please contact the author of this message via ITS. Doctor/Provider: Alexx Gee Pleural effusion is documented per OP Note and Progress Notes and patient is noted to have Acute on chronic congestive heart failure. Please clarify if there is a relationship between the diagnoses. History/Risk Factors: 69yo M, ACHF, CAD, ICM, rightpleural effusion, HTN, COPD w CHRF on O2, MR, former smoker Clinical Indicators: CTA Chest- here is extensive consolidative change at the RLL suggestive ofRLL PNA. Other etiologies cannot be entirely excluded andfollow-upin 4-6 weeks following treatment is advised to document resolution. Moderate to large rightpleural effusionpresumably parapneumonic effusion. Treatment: Thoracentesis- Freely flowing fluid wasremoved, was able [id number] mL of ron colored fluid, fluid again was free-flowing, sent for different diagnosticstudies. Please clarify the relationship, if any, which is clinically appropriate for this patient: [ ] Pleural effusion is due to Acute on chronic congestive heart failure [ ] Pleural effusion is not due to Acute on chronic congestive heart failure [ ] Pleural effusion is due to (please specify): [ ] Other explanation of clinical findings (please specify) [ ] Unable to determine (no explanation for clinical findings) (Template Last Revised: December 2020) MTDD
--- NOTE | 2024-12-12 20:47 | DS ---
DISCHARGE SUMMARY CHIEF COMPLAINT: Shortness of breath. HISTORY OF PRESENT ILLNESS AND PHYSICAL EXAMINATION: Details of this man's history and physical can be found in the initial workup. LABORATORY STUDIES: While he was in the hospital, he had laboratory studies, details of which can be found in the laboratory section of his chart. COURSE IN THE HOSPITAL: After admission, he was placed on bedrest, started on intravenous fluids, updrafts, and he was seen by Pulmonology and Cardiology. He was taken for a right thoracentesis. This did not seem to help his shortness of breath very much as it has in the past. He was slowly improving even though he is still very weak and short of breath with decreased breath sounds on the right. He was anxious to be discharged and he was sent home on the . FINAL DIAGNOSES: 1. Shortness of breath. 2. Right pleural effusion. 3. Acute on chronic congestive heart failure. 4. Atherosclerotic cardiomyopathy. 5. Chronic obstructive pulmonary disease. 6. Depression. OPERATIONS: Thoracentesis. CONSULTATION: Pulmonology. REYNALDO / CALLI: [id number] /
--- NOTE | 2024-12-20 19:22 | MISC ---
MISCELLANOUS REPORT Pleural effusion is due to acute on chronic congestive heart failure. MMODL / IJN: [id number] /
== END 2024-12-11 12:49 | disposition home or self-care (01) ==
LOC: EC 23:24 → 4SSUR 12-07 05:20 → INTOOBSV 12-07 05:20 → 4SSUR 12-07 06:23
PROVIDERS: ADMIT Family Medicine; ATTEND Family Medicine
DX: J90 Pleural effusion, not elsewhere classified (principal); J96.11 Chronic respiratory failure with hypoxia; I11.0 Hypertensive heart disease with heart failure; I50.9 Heart failure, unspecified; I25.5 Ischemic cardiomyopathy; I25.10 Atherosclerotic heart disease of native coronary artery without angina pectoris; I48.0 Paroxysmal atrial fibrillation; J44.9 Chronic obstructive pulmonary disease, unspecified; K21.9 Gastro-esophageal reflux disease without esophagitis; E78.5 Hyperlipidemia, unspecified; F41.9 Anxiety disorder, unspecified; F32.A Depression, unspecified; I65.22 Occlusion and stenosis of left carotid artery; D64.9 Anemia, unspecified; G47.33 Obstructive sleep apnea (adult) (pediatric); G89.29 Other chronic pain; M54.9 Dorsalgia, unspecified; I25.2 Old myocardial infarction; F17.290 Nicotine dependence, other tobacco product, uncomplicated; Z95.5 Presence of coronary angioplasty implant and graft; Z99.81 Dependence on supplemental oxygen; Z79.01 Long term (current) use of anticoagulants; Z79.51 Long term (current) use of inhaled steroids; Z79.82 Long term (current) use of aspirin; Z79.899 Other long term (current) drug therapy; Z91.040 Latex allergy status
CPT/HCPCS: 96365; 96366; 96375; 99285; 36415; 94640; 93005; 97161; 97166; 87798 ×3; 87496; 87498; 87529; 85379; 88108; 88305; 83880; 80053 ×2; 89050; 82150; 83615 ×2; 83690; 83735; 84155; 84484; 85025 ×2; 85610; 85730; 87040; 87502; 87634; 87070; 87205; 87116; 87102; 87206; 84157; 84145; 87635; 72050; 71045; 71046 ×2; 76604; 71275; 32554; G0378 ×5; J2270; J1200; J0696; Q9967; 82945

== ENCOUNTER 2024-12-17 01:20 | Inpatient (IN) | payer MEDICARE, OTHER ==
--- NOTE | 2024-12-17 01:34 | ED ---
Chest Pain HPI - General Chief Complaint: Chest Pain Stated Complaint: chest pain,MICKIE Time Seen by Provider: 12/17/24 01:34 Source: patient, RN notes reviewed, old records reviewed Mode of arrival: wheelchair Limitations: no limitations - History of Present Illness Initial Comments: This is a 69-year-old male to ER for evaluation history of CABG multiple history of chest pain and coming in with 2 hours of chest pain history tonight also complaining of headache severe chest pain currently weakness shortness of breath MD Complaint: chest pain -: hour(s) Onset: during rest, during exertion Pain Location: substernal, left chest Pain Radiation: none Severity: moderate Quality: tightness, aching, heaviness Consistency: constant Improves With: nothing Worsens With: nothing Anginal Symptoms: dyspnea, sense of impending doom Other Symptoms: palpitations Treatments Prior to Arrival: none - Related Data Home Medications Medication Instructions Recorded Confirmed Fluticasone Nasal [place] [Flonase 1 spray EA NOSTRIL BID PRN 01/27/23 12/07/24 Nasal [place]] Ergocalciferol [Vitamin D2 (1250 1,250 mcg PO Q14D 05/10/24 12/07/24 Mcg = 30441 Iu)] Ferrous Sulfate [Iron (65 MG 325 mg PO DAILY 05/10/24 12/07/24 Elemental)] Gabapentin [Neurontin] 100 mg PO TID 05/10/24 12/07/24 ALPRAZolam [Xanax] 2 mg PO TID 07/27/24 12/07/24 Albuterol Inhaler [Ventolin Hfa 2 puff INHALATION RT-Q6H PRN 09/05/24 12/07/24 Inhaler] Aspirin EC [Ecotrin Low Dose] 81 mg PO DAILY 09/05/24 12/07/24 Folic Acid 1 mg PO DAILY 09/05/24 12/07/24 Omeprazole [PriLOSEC] 20 mg PO DAILY 09/05/24 12/07/24 Tamsulosin [Flomax] 0.4 mg PO DAILY 09/05/24 12/07/24 allopurinoL [Zyloprim] 100 mg PO DAILY 09/05/24 12/07/24 rOPINIRole HCL [Requip] 0.25 mg PO HS 09/05/24 12/07/24 oxyCODONE-APAP 10-325MG [Percocet 1 tab PO Q4HR PRN 09/25/24 12/07/24 10-325 mg] Apixaban [Eliquis] 2.5 mg PO BID 12/07/24 12/07/24 Furosemide [Lasix] 40 mg PO DAILY 12/07/24 12/07/24 Morphine Sulfate Ir [MSIR] 15 mg PO Q6H PRN 12/07/24 12/07/24 carvediloL [Coreg] 3.125 mg PO BID 12/07/24 12/07/24 haloperidoL [Haldol] 0.5 mg PO BID 12/07/24 12/07/24 Previous Rx's Medication Instructions Recorded Ezetimibe [Zetia] 10 mg PO DAILY #90 tab 11/18/22 Sodium Bicarbonate Tab 650 mg PO TID #100 tab 01/25/24 Dapagliflozin Propanediol [Farxiga] 10 mg PO DAILY tab 05/24/24 Ipratropium-Albuterol Nebulize 3 ml INHALATION RT-Q2H PRN each 05/24/24 [Duoneb 0.5 mg-3 mg/3 ml Soln] Cyclobenzaprine [Flexeril] 5 mg PO TID PRN 7 Days #21 tablet 11/14/24 Lidocaine 5% Patch [Lidoderm 5% 1 patch TOPICAL DAILY PRN 14 Days 11/14/24 Patch] #14 patch Allergies Allergy/AdvReac Type Severity Reaction Status Date / Time latex Allergy Swelling Verified 12/17/24 01:25 atorvastatin [From Lipitor] AdvReac JOINT PAIN Verified 12/17/24 01:25 Review of Systems ROS Statement: Those systems with pertinent positive or pertinent negative responses have been documented in the HPI. ROS Other: All systems not noted in ROS Statement are negative. EKG Findings - EKG Comments: EKG Findings:: EKG is sinus 76 NM 131 QRS 117 QTc 479 - EKG Results: EKG: interpreted by RYANNE Past Medical History Past Medical History: Coronary Artery Disease (CAD), Chest Pain / Angina, Heart Failure, COPD, GERD/Reflux, Hyperlipidemia, Hypertension, Myocardial Infarction (IA), Osteoarthritis (OA), Sleep Apnea/CPAP/BIPAP Additional Past Medical History / Comment(s): Chronic back pain, left leg weakness. 4LNC. States unsure about having had a heart attack. Last Myocardial Infarction Date:: 11/11/22 History of Any Multi-Drug Resistant Organisms: None Reported Past Surgical History: Back Surgery, Cholecystectomy, Coronary Bypass/CABG, Heart Catheterization With Stent Additional Past Surgical History / Comment(s): Back surgery X2 with cage, left tennis elbow surgery, heart stents X7, colonoscopy. emergency CABG [facility], thrombectomy. April Past Anesthesia/Blood Transfusion Reactions: No Reported Reaction Additional Past Anesthesia/Blood Transfusion Reaction / Comment(s): Pt received blood during CABG without reaction. Date of Last Stent Placement:: Oct 2022 Past Psychological History: Anxiety, Depression, PTSD Smoking Status: Former smoker, Vaper Past Alcohol Use History: None Reported Past Drug Use History: None Reported - Past Family History Father Family Medical History: Coronary Artery Disease (CAD), Deep Vein Thrombosis (DVT), GERD/Reflux, Hyperlipidemia, Myocardial Infarction (IA) Additional Family Medical History / Comment(s): Father of a IA in his 80's. Mother Family Medical History: Coronary Artery Disease (CAD), Myocardial Infarction (IA) Additional Family Medical History / Comment(s): Mother of a IA. Brother(s) Family Medical History: Myocardial Infarction (IA) Additional Family Medical History / Comment(s): . Sister(s) Family Medical History: Cancer, Diabetes Mellitus Additional Family Medical History / Comment(s): Lung cancer. Other sister had Diabetes. General Exam Limitations: no limitations General appearance: alert, in no apparent distress Head exam: Present: atraumatic, normocephalic, normal inspection Eye exam: Present: normal appearance, PERRL, EOMI. Absent: scleral icterus, conjunctival injection, periorbital swelling ENT exam: Present: normal exam, mucous membranes moist Neck exam: Present: normal inspection. Absent: tenderness, meningismus, lymphadenopathy Respiratory exam: Present: normal lung sounds bilaterally. Absent: respiratory distress, wheezes, rales, rhonchi, stridor Cardiovascular Exam: Present: regular rate, normal rhythm, normal heart sounds. Absent: systolic murmur, diastolic murmur, rubs, gallop, clicks GI/Abdominal exam: Present: soft, normal bowel sounds. Absent: distended, tenderness, guarding, rebound, rigid Extremities exam: Present: normal inspection, full ROM, normal capillary refill. Absent: tenderness, pedal edema, joint swelling, calf tenderness Back exam: Present: normal inspection Neurological exam: Present: alert, oriented X3, CN II-XII intact Psychiatric exam: Present: normal affect, normal mood Skin exam: Present: warm, dry, intact, normal color. Absent: rash Course Vital Signs 12/17/24 12/17/24 12/17/24 01:23 01:35 02:26 Temperature 98.7 F Pulse Rate 101 H 75 74 Respiratory 18 20 26 H Rate Blood Pressure 173/75 130/74 114/70 O2 Sat by Pulse 97 95 95 Oximetry - Reevaluation(s) Reevaluation #1: 12/17/24 02:55 Medical records reviewed Reevaluation #2: 12/17/24 02:55 Patient symptoms unchanged Reevaluation #3: 12/17/24 02:55 Patient informed of results questions answered Reevaluation #4: Was pt. sent in by a medical professional or institution (, PA, DIRECTOR OF SOFTWARE ENGINEERING, urgent care, hospital, or correction...) When possible be specific @ -no Did you speak to anyone other than the patient for history (EMS, parent, family, police, friend...)? What history was obtained from this source @ -no Did you review nursing and triage notes (agree or disagree)? Why? @ -agree Are old charts reviewed (outside hosp., previous admission, EMS record, old EKG, old radiological studies, urgent care reports/EKG's, correction records)? Report findings @ -yes Differential Diagnosis (chest pain, altered mental status, abdominal pain women, abdominal pain men, vaginal bleeding, weakness, fever, dyspnea, syncope, headache, dizziness, GI bleed, back pain, seizure, CVA, palpatations, mental health, musculoskeletal)? @ -prior EKG interpreted by me (3pts min.). @ -yes X-rays interpreted by me (1pt min.). @ -yes negative for acute disease CT interpreted by me (1pt min.). @ -no U/S interpreted by me (1pt. min.). @ -no What testing was considered but not performed or refused? (CT, X-rays, U/S, labs)? Why? @ -none What meds were considered but not given or refused? Why? @ -none Did you discuss the management of the patient with other professionals (professionals i.e. , PA, DIRECTOR OF SOFTWARE ENGINEERING, lab, RT, psych nurse, social media editor, slag skimmer, teacher, sustainability officer, window caser)? Give summary @ -no Was smoking cessation discussed for >3mins.? @ -no Was critical care preformed (if so, how long)? @ -no Were there social determinants of health that impacted care today? How? (Homelessness, low income, unemployed, alcoholism, drug addiction, transportation, low edu. Level, literacy, decrease access to med. care, fci, rehab)? @ -none Was there de-escalation of care discussed even if they declined (Discuss DNR or withdrawal of care, Hospice)? DNR status @ -no What co-morbidities impacted this encounter? (DM, HTN, Smoking, COPD, CAD, Cancer, CVA, ARF, Chemo, Hep., AIDS, mental health diagnosis, sleep apnea, morbid obesity)? @ -none Was patient admitted / discharged? Hospital course, mention meds given and route, prescriptions, significant lab abnormalities, going to OR and other pertinent info. @ - Undiagnosed new problem with uncertain prognosis? @ -no Drug Therapy requiring intensive monitoring for toxicity (Heparin, Nitro, Insulin, Cardizem)? @ -no Were any procedures done? @ -no Diagnosis/symptom? @ - Acute, or Chronic, or Acute on Chronic? @ -Acute Uncomplicated (without systemic symptoms) or Complicated (systemic symptoms)? @ -Complicated Side effects of treatment? @ -no Exacerbation, Progression, or Severe Exacerbation? @ -exacerbation Poses a threat to life or bodily function? How? (Chest pain, USA, IA, pneumonia, PE, COPD, DKA, ARF, appy, cholecystitis, CVA, Diverticulitis, Homicidal, Suicidal, threat to staff... and all critical care pts) @ -yes Reevaluation #5: Differential Chest Pain: Stable Angina, Unstable Angina, STEMI, NSTEMI Aortic Dissection, Pneumothorax, Musculoskeletal, Esophageal Spasm GERD, Cholecystitis, Pancreatitis, Zoster, this is not meant to be an all-inclusive list. - Consultations Consultation #1: Spoke with Dr. Gee who agrees to admit this patient Chest Pain MDM - MDM 69 male with acute ACS, history of multiple CABG coming in with chest pain will admit for unstable angina Critical Care Time Critical Care Time: Yes Total Critical Care Time: 31 Disposition Clinical Impression: Unstable angina pectoris, Elevated troponin, Acute non-ST elevation myocardial infarction (NSTEMI), Chest pain, CAD (coronary artery disease) of bypass graft, Acute coronary syndrome Disposition: ADMITTED IP TO THIS HOSP Condition: Serious Is patient prescribed a controlled substance at d/c from ED?: No Referrals: Alexx Gee MD [Primary Care Provider] - 1-2 days Time of Disposition: 03:00
[2024-12-17] MEDS: MORPHINE SULFATE 4 MG/ML SYRINGE IV STA (02:07)
[2024-12-17 02:08] LABS: ALT 20 U/L (4-49); AST 27 U/L (17-59); African American GFR (CKD) >90 (>60 ml/min/1.73 sqM); Albumin 3.8 g/dL (3.5-5.0); Alkaline Phosphatase 138 U/L (38-126); Anion Gap 10 mmol/L; Blood Urea Nitrogen 13 mg/dL (9-20); Calcium 9.2 mg/dL (8.4-10.2); Carbon Dioxide 20 mmol/L (22-30); Chloride 108 mmol/L (98-107); Glucose 96 mg/dL (74-99); Lipase 124 U/L (23-300); Magnesium 1.8 mg/dL (1.6-2.3); Non-African American GFR(CKD) 78 (>60 ml/min/1.73 sqM); Potassium 3.9 mmol/L (3.5-5.1); Sodium 138 mmol/L (137-145); Total Bilirubin 0.6 mg/dL (0.2-1.3); Total Protein 6.8 g/dL (6.3-8.2)
[2024-12-17] MEDS: NITROGLYCERIN SL TABS 0.4 MG TAB SUBLINGUAL STA (02:09)
[2024-12-17] MEDS: SODIUM CHLORIDE 0.9% 1,000 ML IV STA (02:10)
[2024-12-17 02:17] LABS: Anisocytosis Slight; Basophils % (A) 1 %; Eosinophils # (A) 0.1 k/uL (0-0.7); Eosinophils % (A) 1 %; HGB 12.6 gm/dL (13.0-17.5); Hypochromasia Moderate; Lymphocytes # (A) 1.5 k/uL (1.0-4.8); Lymphocytes % (A) 21 %; MCH 25.8 pg (25.0-35.0); MCHC 30.6 g/dL (31.0-37.0); MCV 84.3 fL (80.0-100.0); Mean Platelet Volume 9.4; Monocytes # (A) 0.6 k/uL (0-1.0); Monocytes % (A) 9 %; Neutrophils # (A) 4.7 k/uL (1.3-7.7); Neutrophils % (A) 66 %; Platelet Count 166 k/uL (150-450); RBC 4.87 m/uL (4.30-5.90); RDW 16.7 % (11.5-15.5); WBC 7.1 k/uL (3.8-10.6)
[2024-12-17 02:18] LABS: NT-Pro-B-Type Natriuretic Pept 2230 pg/mL
[2024-12-17 02:22] LABS: Partial Thromboplastin Time 24.4 sec (22.0-30.0); Prothrombin Time 10.9 sec (10.0-12.5)
--- NOTE | 2024-12-17 02:42 | CT ---
EXAM: CT Head Without Intravenous Contrast CLINICAL HISTORY: ITS.REASON CT Reason: poole TECHNIQUE: Axial computed tomography images of the head/brain without intravenous contrast. CTDI is 45.2 mGy and DLP is 1099 mGy-cm. This CT exam was performed using one or more of the following dose reduction techniques: automated exposure control, adjustment of the mA and/or kV according to patient size, and/or use of iterative reconstruction technique. COMPARISON: No relevant prior studies available. FINDINGS: Brain: Age-related cerebral volume loss. Periventricular and subcortical white matter hypoattenuation, consistent with chronic microangiopathy. No acute intracranial hemorrhage. No midline shift or mass effect. Ventricles: Unremarkable. No ventriculomegaly. Bones/joints: Unremarkable. No acute fracture. Soft tissues: Unremarkable. Sinuses: Unremarkable as visualized. No acute sinusitis. Mastoid air cells: Unremarkable as visualized. No mastoid effusion. IMPRESSION: No acute intracranial hemorrhage. No midline shift or mass effect. EXAM: CT Cervical Spine Without Intravenous Contrast CLINICAL HISTORY: ITS.REASON CT Reason: poole TECHNIQUE: Axial computed tomography images of the cervical spine without intravenous contrast. CTDI is 13.6 mGy and DLP is 395.8 mGy-cm. This CT exam was performed using one or more of the following dose reduction techniques: automated exposure control, adjustment of the mA and/or kV according to patient size, and/or use of iterative reconstruction technique. COMPARISON: No relevant prior studies available. FINDINGS: The vertebral body heights are maintained. The craniocervical junction is intact. The atlanto-dens interval is maintained. The dens is intact. There is no spondylolisthesis. Multilevel cervical spondylosis and degenerative disc disease. Straightening of the cervical lordosis. The unenhanced neck soft tissues are grossly unremarkable. The visualized lung apices are grossly clear. RIGHT pleural effusion. IMPRESSION: No acute fracture or subluxation of the cervical spine.
[2024-12-17] MEDS: METOPROLOL TARTRATE 5 MG/5 ML VIAL IVP STA (03:16)
[2024-12-17] MEDS: ASPIRIN 81 MG PO STA (03:29)
[2024-12-17] MEDS: ATORVASTATIN 80 MG TAB PO STA (03:29)
[2024-12-17] MEDS: HEPARIN SOD,PORK IN 0.45% NACL 25,000 UNIT in 0.45% NACL 1 250ML.BAG IV SCH (03:30)
--- NOTE | 2024-12-17 03:30 | XR ---
EXAM: XR Chest, 2 Views CLINICAL HISTORY: nausea, vomiting. Chest Pain TECHNIQUE: Frontal and lateral views of the chest. COMPARISON: 07/27/24 FINDINGS: Lungs: Moderate consolidation over right costophrenic angle region, suggests pleural effusion and compressive atelectasis. Heart: Mild cardiomegaly suspected. Mediastinum: Unremarkable. Normal mediastinal contour. Bones/joints: Sternal wires. IMPRESSION: Moderate consolidation over right costophrenic angle region suggests pleural effusion and compressive atelectasis.
[2024-12-17] MEDS: HEPARIN SODIUM 1,000 UN/ML (10ML VL) IV ONE (03:32)
[2024-12-17] MEDS: NITROGLYCERIN OINT 1 INCH/GM PACKET TOPICAL SCH (05:05)
[2024-12-17] MEDS: MORPHINE SULFATE 4 MG/ML SYRINGE IV PRN (07:01)
[2024-12-17 07:57] LABS: Mean Platelet Volume 9.3; Platelet Count 146 k/uL (150-450)
[2024-12-17] MEDS: HEPARIN SODIUM 1,000 UN/ML (10ML VL) IV PRN (11:32)
[2024-12-17] MEDS ORDERED: ALPRAZolam 1 MG TAB PO PRN (13:17)
[2024-12-17] MEDS: FUROSEMIDE 10 MG/ML 4 ML VIAL IV SCH (14:13)
[2024-12-17] MEDS: oxyCODONE-APAP 10-325MG 1 EACH TAB PO PRN (14:13)
[2024-12-17] MEDS: APIXABAN 2.5 MG TABLET PO SCH (14:13)
[2024-12-17] MEDS: SACUBITRIL/VALSARTAN 24 MG-26 MG TABLET PO SCH (14:14)
[2024-12-17] MEDS: GABAPENTIN 100 MG CAP PO SCH (15:38)
--- NOTE | 2024-12-17 15:48 | P.CRDCN ---
History of Present Illness History of present illness: HISTORY OF PRESENT ILLNESS: This is a 69-year-old male with a past medical history significant for coronary artery disease, congestive heart failure, ischemic cardiomyopathy, paroxysmal a trial fibrillation, hypertension, and hyperlipidemia. Patient follows in the office with Dr. Wiggins. We have been asked to see the patient in consultation for congestive heart failure. Patient examined at the bedside. Patient presented to the hospital with a chief complaint of shortness of breath. Patient states he has been feeling short of breath for the past 2 days. He also reports having chest discomfort that is worse with deep inspiration. He reports dizziness when sitting up at the side of the bed. He is complaining of throbbing in both of his arms. It is noted that the patient was previously on maximized medical treatment for cardiomyopathy however many of these medications are not listed on his home medication list. Upon interview with the patient, he reports he has not been taking his medications consistently and some of them he is not taking at all. DIAGNOSTICS: - EKG reveals sinus mechanism with T wave inversions in anterior lateral leads with biphasic T wave in V2. - Chest xray moderate consolidation over right costophrenic angle region suggest pleural effusion and compressive atelectasis - Laboratory data: WBC 7.1. Hemoglobin 12.6. Platelet count 166. Sodium 138. Potassium 3.9. BUN 13. Creatinine 0.99. Troponin negative x 3. proBNP 2230. - Current home cardiac medications include Eliquis 2.5 mg twice a day, aspirin 81 mg daily, Lasix 40 mg daily, carvedilol 3.125 mg twice a day - Most recent echocardiogram obtained in 09/06/2024 reveals EF 20 to 25%, apical and anterior apical distal anterior septal hypokinesis, moderate to severe MR, mild AR REVIEW OF SYSTEMS: At the time of my exam: CONSTITUTIONAL: Denies fever or chills. HEENT: Denies blurred vision, vision changes, or eye pain. Denies hemoptysis CARDIOVASCULAR: Denies chest pain. Denies orthopnea. Denies PND. Denies palpitations RESPIRATORY: Denies shortness of breath. GASTROINTESTINAL: Denies abdominal pain. Denies nausea or vomiting. HEMATOLOGIC: Denies bleeding disorders. GENITOURINARY: Denies any blood in urine. SKIN: Denies pruitis. Denies rash. PHYSICAL EXAM: VITAL SIGNS: Reviewed. GENERAL: Well-developed in no acute distress. HEENT: Head is normocephalic. Pupils are equal, round. Sclerae anicteric. Mucous membranes of the mouth are moist. Neck supple. No JVD or thyromegaly LUNGS: Respirations even and unlabored. Lungs diminished bilaterally, right greater than left HEART: Regular rate and rhythm. S1 and S2 heard. ABDOMEN: Soft. Nondistended. Nontender. EXTREMITIES: Normal range of motion. No clubbing or cyanosis. Peripheral pulses intact. No lower extremity edema NEUROLOGIC: Awake and alert. Oriented x 3. ASSESSMENT: Chest pain, Troponin negative x 3 Shortness of breath Acute on chronic heart failure with reduced EF Coronary artery disease with previous CABG 20 years ago and redo CABG x , April 2024 Ischemic cardiomyopathy 20-25% History of bilateral pleural effusions History of multiple thoracentesis, most recent on 12/08/2024 Paroxysmal atrial fibrillation Hypertension Hyperlipidemia PLAN: An acute coronary event has been ruled out Limited echo ordered per ER physician. Await results. Discontinue carvedilol. Begin metoprolol succinate 25 mg daily Begin Entresto 24-26 mg twice a day Add Farxiga and Aldactone Diurese patient for 24 hours with Lasix 40 mg every 12 hours Daily weights, accurate intake and output, and monitoring of kidney function Consult pulmonary for evaluation Repeat chest x-ray tomorrow Recheck BMP and BNP in a.m. Further recommendations pending patient course Nurse practitioner note has been reviewed by physician. Signing provider agrees with the documented findings, assessment, and plan of care documented by [employer] MATE as a scribe. Past Medical History Past Medical History: Coronary Artery Disease (CAD), Chest Pain / Angina, Heart Failure, COPD, GERD/Reflux, Hyperlipidemia, Hypertension, Myocardial Infarction ([place]), Osteoarthritis (OA), Sleep Apnea/CPAP/BIPAP Additional Past Medical History / Comment(s): Chronic back pain, left leg weakness. 4LNC. States unsure about having had a heart attack. Last Myocardial Infarction Date:: 11/11/22 History of Any Multi-Drug Resistant Organisms: None Reported Past Surgical History: Back Surgery, Cholecystectomy, Coronary Bypass/CABG, Heart Catheterization With Stent Additional Past Surgical History / Comment(s): Back surgery X2 with cage, left tennis elbow surgery, heart stents X7, colonoscopy. emergency CABG [facility], thrombectomy. April Past Anesthesia/Blood Transfusion Reactions: No Reported Reaction Additional Past Anesthesia/Blood Transfusion Reaction / Comment(s): Pt received blood during CABG without reaction. Date of Last Stent Placement:: Oct 2022 Past Psychological History: Anxiety, Depression, PTSD Additional Psychological History / Comment(s): He drives. Smoking Status: Former smoker, Vaper Past Alcohol Use History: None Reported Additional Past Alcohol Use History / Comment(s): Started smoking in 1967. No alcohol in 30+ yrs. Past Drug Use History: None Reported Additional Drug Use History / Comment(s): States no cocaine use for 30+ yrs. - Past Family History Father Family Medical History: Coronary Artery Disease (CAD), Deep Vein Thrombosis (DVT), GERD/Reflux, Hyperlipidemia, Myocardial Infarction ([place]) Additional Family Medical History / Comment(s): Father of a [place] in his 80's. Mother Family Medical History: Coronary Artery Disease (CAD), Myocardial Infarction ([place]) Additional Family Medical History / Comment(s): Mother of a [place]. Brother(s) Family Medical History: Myocardial Infarction ([place]) Additional Family Medical History / Comment(s): . Sister(s) Family Medical History: Cancer, Diabetes Mellitus Additional Family Medical History / Comment(s): Lung cancer. Other sister had Diabetes. Medications and Allergies Home Medications Medication Instructions Recorded Confirmed Type ALPRAZolam [Xanax] 2 mg PO TID PRN 07/27/24 12/17/24 History Aspirin EC [Ecotrin Low Dose] 81 mg PO DAILY 09/05/24 12/17/24 History Apixaban [Eliquis] 2.5 mg PO BID 12/07/24 12/17/24 History carvediloL [Coreg] 3.125 mg PO BID 12/07/24 12/17/24 History haloperidoL [Haldol] 0.5 mg PO BID 12/07/24 12/17/24 History Albuterol Sulfate [Albuterol 2 puff INHALATION RT-QID PRN 12/17/24 12/17/24 History Sulfate Hfa] Furosemide [Lasix] 40 mg PO DAILY 12/17/24 12/17/24 History Gabapentin [Neurontin] 100 mg PO TID 12/17/24 12/17/24 History Allergies Allergy/AdvReac Type Severity Reaction Status Date / Time latex Allergy Swelling Verified 12/17/24 10:32 atorvastatin [From Lipitor] AdvReac JOINT PAIN Verified 12/17/24 10:32 Physical Exam Vitals: Vital Signs Temp Pulse Pulse Resp BP BP BP 12/17/24 14:00 73 16 12/17/24 12:00 73 16 127/66 12/17/24 08:52 73 16 12/17/24 08:27 97.5 F L 73 16 125/63 115/59 12/17/24 07:57 77 18 111/68 12/17/24 06:58 74 20 114/67 12/17/24 04:59 98.1 F 76 16 126/74 12/17/24 02:26 74 26 H 114/70 12/17/24 01:35 75 20 130/74 12/17/24 01:23 98.7 F 101 H 18 173/75 Pulse Ox 12/17/24 14:00 12/17/24 12:00 12/17/24 08:52 12/17/24 08:27 99 12/17/24 07:57 97 12/17/24 06:58 99 12/17/24 04:59 98 12/17/24 02:26 95 12/17/24 01:35 95 12/17/24 01:23 97 Intake and Output 12/17/24 12/17/24 12/17/24 06:59 14:59 22:59 Intake Total 480.333 Output Total 450 650 Balance 30.333 -650 Intake: Intake, IV Titration 80.333 Amount Heparin Sod,Pork in 0.45% 80.333 NaCl 25,000 unit In 0.45 % NaCl 1 250ml.bag @ 10. 021 UNITS/KG/HR 10 mls/hr IV .Q24H [facility] Rx#: [id number] Oral 400 Output: Urine 450 650 Other: Voiding Method Urinal Weight 99.79 kg 99.79 kg Results 12/17/24 07:43 12/17/24 01:49 Cardiac Enzymes 12/17/24 12/17/24 12/17/24 Range/Units 01:49 01:49 03:51 AST 27 (17-59) U/L Troponin I 0.024 0.029 (0.000-0.034) ng/mL 12/17/24 Range/Units 07:43 AST (17-59) U/L Troponin I 0.023 (0.000-0.034) ng/mL Coagulation 12/17/24 12/17/24 12/17/24 Range/Units 01:49 03:51 09:46 PT 10.9 (10.0-12.5) sec APTT 24.4 61.1 H 30.9 H (22.0-30.0) sec CBC 12/17/24 12/17/24 Range/Units 01:49 07:43 WBC 7.1 (3.8-10.6) k/uL RBC 4.87 (4.30-5.90) m/uL Hgb 12.6 L (13.0-17.5) gm/dL Hct 41.0 (39.0-53.0) % Plt Count 166 146 L (150-450) k/uL Comprehensive Metabolic Panel 12/17/24 Range/Units 01:49 Sodium 138 (137-145) mmol/L Potassium 3.9 (3.5-5.1) mmol/L Chloride 108 H (98-107) mmol/L Carbon Dioxide 20 L (22-30) mmol/L BUN 13 (9-20) mg/dL Creatinine 0.99 (0.66-1.25) mg/dL Glucose 96 (74-99) mg/dL Calcium 9.2 (8.4-10.2) mg/dL AST 27 (17-59) U/L ALT 20 (4-49) U/L Alkaline Phosphatase 138 H (38-126) U/L Total Protein 6.8 (6.3-8.2) g/dL Albumin 3.8 (3.5-5.0) g/dL Current Medications Generic Name Dose Route Start Last Admin Trade Name Freq PRN Reason Stop Dose Admin Alprazolam 2 mg 12/17/24 13:17 Alprazolam 1 Mg Tab PO TID PRN Anxiety Apixaban 2.5 mg 12/17/24 13:45 12/17/24 14:13 Apixaban 2.5 Mg Tablet PO 2.5 mg BID [facility] Administration Protocol Aspirin 81 mg 12/18/24 09:00 Aspirin 81 Mg PO DAILY [facility] Atorvastatin Calcium 40 mg 12/17/24 21:00 Atorvastatin 40 Mg Tab PO HS [facility] Dapagliflozin 10 mg 12/18/24 09:00 Dapagliflozin Propanediol 10 Mg Tablet PO DAILY [facility] Furosemide 40 mg 12/17/24 13:45 12/17/24 14:13 Furosemide 10 Mg/Ml 4 Ml Vial IV 40 mg Q12HR ELIANA Administration Gabapentin 100 mg 12/17/24 16:00 12/17/24 15:38 Gabapentin 100 Mg Cap PO 100 mg TID ELIANA Administration Haloperidol 0.5 mg 12/17/24 21:00 Haloperidol 0.5 Mg Tab PO BID [facility] Heparin Sodium (Porcine) 0 unit 12/17/24 11:15 12/17/24 11:32 Heparin Sodium 1,000 Un/Ml (10ml Vl) IV 4,989 unit PER PROTOCOL PRN Administration Low PTT Protocol Metoprolol Succinate 25 mg 12/18/24 09:00 Metoprolol Succinate (Er) 25 Mg Tab.Er.24h PO DAILY [facility] [place] Morphine Sulfate 4 mg 12/17/24 02:50 12/17/24 11:27 Morphine Sulfate 4 Mg/Ml Syringe IV 4 mg Q4HR PRN Administration Chest Pain Oxycodone/Acetaminophen 1 each 12/17/24 13:19 12/17/24 14:13 Oxycodone-Apap 10-325mg 1 Each Tab PO 1 each Q6HR PRN Administration Pain Sacubitril/Valsartan 1 each 12/17/24 13:45 12/17/24 14:14 Sacubitril/Valsartan 24 Mg-26 Mg Tablet PO 1 each BID ELIANA Administration Spironolactone 12.5 mg 12/18/24 09:00 Spironolactone 25 Mg Tab PO DAILY [facility] [place] Intake and Output 12/17/24 12/17/24 12/17/24 06:59 14:59 22:59 Intake Total 480.333 Output Total 450 650 Balance 30.333 -650 Intake: Intake, IV Titration 80.333 Amount Heparin Sod,Pork in 0.45% 80.333 NaCl 25,000 unit In 0.45 % NaCl 1 250ml.bag @ 10. 021 UNITS/KG/HR 10 mls/hr IV .Q24H [facility] [place] Rx#: [id number] Oral 400 Output: Urine 450 650 Other: Voiding Method Urinal Weight 99.79 kg 99.79 kg Patient Weight 12/18/24 06:59 Weight 99.79 kg 12/17/24 07:43 12/17/24 01:49
[2024-12-17] MEDS: ATORVASTATIN 40 MG TAB PO SCH (20:39)
[2024-12-17] MEDS: haloperidoL 0.5 MG TAB PO SCH (20:40)
[2024-12-17] MEDS ORDERED: APIXABAN 2.5 MG TABLET PO SCH (21:00)
[2024-12-17] MEDS ORDERED: carvediloL 3.125 MG TAB PO SCH (21:00)
--- NOTE | 2024-12-18 00:20 | HP ---
HISTORY AND PHYSICAL CHIEF COMPLAINT: Chest pain and shortness of breath. HISTORY OF PRESENT ILLNESS: This is another admission for this 69-year-old white male, who has been in and out of the hospital frequently lately due to advanced coronary artery disease and COPD. He has chronic congestive heart failure due to a cardiomyopathy. He was recently in the hospital with shortness of breath, and a right pleural effusion was tapped and he has been doing a little better since in terms of breathing. He came back in because of uncontrollable angina. REVIEW OF SYSTEMS: Otherwise unchanged and unremarkable. He has not been diaphoretic or more short of breath. He does continue to smoke. Past medical history, family history, personal and social histories are all otherwise unchanged from his recent admitting and discharge summaries about a week ago. PHYSICAL EXAMINATION: VITAL SIGNS: Blood pressure is 120/70 with a pulse of 85, respirations of 42, and he is afebrile. GENERAL: He appeared to be short of breath. SKIN: Color is normal. Skin is warm and dry. LYMPHATICS: Lymph nodes are not enlarged. HEAD, EARS, EYES, NOSE, MOUTH, AND THROAT: Normal. CHEST: Clear. There are decreased breath sounds on the right and there were scattered rales. CARDIAC: Demonstrated atrial fibrillation with an S4. ABDOMEN: Soft, nontender. EXTREMITIES: Normal. NEUROLOGICAL: He is intact. ASSESSMENT: He is admitted to the hospital with diagnoses of, 1. Unstable angina pectoris. 2. Acute coronary syndrome. 3. Atherosclerotic cardiomyopathy. 4. Chronic congestive heart failure. 5. Right pleural effusion. 6. Chronic obstructive pulmonary disease. PLAN: 1. Bed rest. 2. IV fluids. 3. Serial EKGs and enzymes. 4. Cardiology consult. MMODL / IJN: [id number] /
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
--- NOTE | 2024-12-18 07:47 | CA ---
Transthoracic Echo Report Name: Israel Simmons Age: 69 Gender: M : 1955 Exam Date: 12/17/2024 14:21 Exam Location: [facility] Ht (in): 69 Wt (lb): 220 Ordering Physician: Kristian Thompson DO Attending/Referring Phys: [id number], Donna Cook Taco Raissa Patel, RDGURDEEP Procedure CPT: Indications: CP Cardiac Hx: CABG, IN Technical Quality: Fair Contrast 1: Definity Total Dose (mL): 2 Contrast 2: Total Dose (mL): MEASUREMENTS (Male / Female) Normal Values 2D ECHO LV Diastolic Diameter PLAX 5.9 cm 4.2 - 5.9 / 3.9 - 5.3 cm LV Systolic Diameter PLAX 5.1 cm IVS Diastolic Thickness 0.7 cm 0.6 - 1.0 / 0.6 - 0.9 cm LVPW Diastolic Thickness 0.8 cm 0.6 - 1.0 / 0.6 - 0.9 cm LV Relative Wall Thickness 0.3 RV Internal Dim ED PLAX 1.6 cm LA Systolic Diameter LX 5.4 cm 3.0 - 4.0 / 2.7 - 3.8 cm M-MODE Aortic Root Diameter MM 3.7 cm LA Systolic Diameter MM 4.2 cm LA Ao Ratio MM 1.1 AV Cusp Separation MM 2.1 cm DOPPLER AV Peak Velocity 93.0 cm/s AV Peak Gradient 3.5 mmHg AV Mean Velocity 72.9 cm/s AV Mean Gradient 2.3 mmHg AV Velocity Time Integral 17.8 cm AI Peak Velocity 326.4 cm/s AI Peak Gradient 42.6 mmHg AI Pressure Half Time 617.2 ms LVOT Peak Velocity 84.2 cm/s LVOT Peak Gradient 2.8 mmHg LVOT Velocity Time Integral 18.3 cm MV E' Velocity 3.1 cm/s FINDINGS Left Ventricle Left ventricular ejection fraction is estimated at 20-25 %. Mild left ventricular dilatation. Severely reduced global left ventricular systolic function. Thinned/scarred septum. Right Ventricle Right Atrium Left Atrium Severely increased left atrial diameter. Mitral Valve Structurally normal mitral valve. Sixipmax-su-zhclft mitral regurgitation. Aortic Valve Trileaflet aortic valve. Mild to moderate aortic regurgitation. No aortic stenosis. Tricuspid Valve Pulmonic Valve Pericardium No pericardial or pleural effusion. Aorta Aorta at upper limits of normal. CONCLUSIONS Technically difficult study for interpretation Severely impaired LV function with EF between 20 to 25% Moderate to severe MR Mild to moderate AI Previewed by: Dr. Frank Wiggins MD (Electronically Signed) Final Date: 18 December 2024 07:46
--- NOTE | 2024-12-18 08:07 | XR ---
EXAMINATION TYPE: XR chest 2V DATE OF EXAM: 12/18/2024 6:32 AM COMPARISON: Chest radiographs from 12/10/2024 TECHNIQUE: XR chest 2V Frontal and lateral views of the chest. CLINICAL INDICATION:Male, 69 years old with history of SOB; FINDINGS: Lungs/Pleura: No pneumothorax. Similar moderate-sized right pleural effusion with associated atelecta sis. No new focal consolidation. Pulmonary vascularity: Unremarkable. Heart/mediastinum: Cardiomediastinal silhouette is prominent in size. Musculoskeletal: No acute osseous pathology. Midline sternotomy wires are noted and stable. IMPRESSION: Similar moderate-sized right pleural effusion with associated atelectasis. [facility], , 12/18/2024 8:05 AM
[2024-12-18] MEDS: ASPIRIN 81 MG PO SCH (08:41)
[2024-12-18] MEDS: METOPROLOL SUCCINATE (ER) 25 MG TAB.ER.24H PO SCH (08:41)
[2024-12-18] MEDS: DAPAGLIFLOZIN PROPANEDIOL 10 MG TABLET PO SCH (08:41)
[2024-12-18] MEDS: SPIRONOLACTONE 25 MG TAB PO SCH (08:41)
[2024-12-18] MEDS ORDERED: FUROSEMIDE 40 MG TAB PO SCH (09:00)
[2024-12-18] MEDS ORDERED: ASPIRIN 325 MG TAB PO SCH (09:00)
[2024-12-18 09:21] LABS: Mean Platelet Volume 9.6; Platelet Count 197 k/uL (150-450)
[2024-12-18] MEDS: ONDANSETRON 4 MG/2 ML VIAL IVP PRN (11:41)
[2024-12-18 12:23] LABS: African American GFR (CKD) 83 (>60 ml/min/1.73 sqM); Anion Gap 11 mmol/L; Blood Urea Nitrogen 16 mg/dL (9-20); Calcium 9.2 mg/dL (8.4-10.2); Carbon Dioxide 27 mmol/L (22-30); Chloride 99 mmol/L (98-107); Glucose 113 mg/dL (74-99); Non-African American GFR(CKD) 72 (>60 ml/min/1.73 sqM); Potassium 3.6 mmol/L (3.5-5.1); Sodium 137 mmol/L (137-145)
[2024-12-18 12:32] LABS: NT-Pro-B-Type Natriuretic Pept 1250 pg/mL
--- NOTE | 2024-12-18 13:43 | P.PN ---
Subjective HISTORY OF PRESENT ILLNESS: This is a 69-year-old male with a past medical history significant for coronary artery disease, congestive heart failure, ischemic cardiomyopathy, paroxysmal atrial fibrillation, hypertension, and hyperlipidemia. Patient follows in the office with Dr. Wiggins. We have been asked to see the patient in consultation for congestive heart failure. Patient examined at the bedside. Patient presented to the hospital with a chief complaint of shortness of breath. Patient states he has been feeling short of breath for the past 2 days. He also reports having chest discomfort that is worse with deep inspiration. He reports dizziness when sitting up at the side of the bed. He is complaining of throbbing in both of his arms. It is noted that the patient was previously on maximized medical treatment for cardiomyopathy however many of these medications are not listed on his home medication list. Upon interview with the patient, he reports he has not been taking his medications consistently and some of them he is not taking at all. DIAGNOSTICS: - EKG reveals sinus mechanism with T wave inversions in anterior lateral leads with biphasic T wave in V2. - Chest xray moderate consolidation over right costophrenic angle region suggest pleural effusion and compressive atelectasis - Laboratory data: WBC 7.1. Hemoglobin 12.6. Platelet count 166. Sodium 138. Potassium 3.9. BUN 13. Creatinine 0.99. Troponin negative x 3. proBNP 2230. - Current home cardiac medications include Eliquis 2.5 mg twice a day, aspirin 81 mg daily, Lasix 40 mg daily, carvedilol 3.125 mg twice a day - Most recent echocardiogram obtained in 09/06/2024 reveals EF 20 to 25%, apical and anterior apical distal anterior septal hypokinesis, moderate to severe MR, mild AR 12/18/2024 Patient examined this morning at the bedside. Patient reports improvement in his shortness of breath. He remains on IV diuretics with Lasix 40 every 12 hours. He reports chest pain that is worse with deep inspiration. Limited echocardiogram performed revealing EF 20 to 25%, moderate to severe MR, mild to moderate AI. Repeat chest x-ray completed today reveals similar moderate-sized right pleural effusion with associated atelectasis. PHYSICAL EXAM: VITAL SIGNS: Reviewed. GENERAL: Well-developed in no acute distress. HEENT: Head is normocephalic. Pupils are equal, round. Sclerae anicteric. Mucous membranes of the mouth are moist. Neck supple. No JVD or thyromegaly LUNGS: Respirations even and unlabored. Lungs diminished bilaterally, right greater than left HEART: Regular rate and rhythm. S1 and S2 heard. ABDOMEN: Soft. Nondistended. Nontender. EXTREMITIES: Normal range of motion. No clubbing or cyanosis. Peripheral pulses intact. No lower extremity edema NEUROLOGIC: Awake and alert. Oriented x 3. ASSESSMENT: Chest pain, Troponin negative x 3 Shortness of breath Acute on chronic heart failure with reduced EF Coronary artery disease with previous CABG 20 years ago and redo CABG x , April 2024 Ischemic cardiomyopathy 20-25% History of bilateral pleural effusions History of multiple thoracentesis, most recent on 12/08/2024 Paroxysmal atrial fibrillation Hypertension Hyperlipidemia PLAN: Continue current cardiac medications Continue IV diuretics with Lasix 40 mg every 12 hours Daily weights, accurate intake and output, monitoring of kidney function Pulmonary following for recurrent right-sided pleural effusion Reinforced importance of medication compliance Consult CHF navigator for further education Further recommendations pending patient course Nurse practitioner note has been reviewed by physician. Signing provider agrees with the documented findings, assessment, and plan of care documented by HELP DESK ENGINEER as a scribe. Objective - Vital Signs Vital signs: Vital Signs Temp 97.9 F 12/18/24 08:00 Pulse 73 12/18/24 08:00 Resp 18 12/18/24 08:00 BP 127/61 12/18/24 08:00 Pulse Ox 96 12/18/24 08:00 FiO2 Intake & Output 12/17/24 12/18/24 12/18/24 18:59 06:59 18:59 Intake Total 480.333 240 110 Output Total 1400 900 Balance -919.667 -660 110 Weight 99.79 kg 90.4 kg Intake: Intake, IV Titration 80.333 Amount Heparin Sod,Pork in 0.45% 80.333 NaCl 25,000 unit In 0.45 % NaCl 1 250ml.bag @ 10. 021 UNITS/KG/HR 10 mls/hr IV .Q24H [facility] Rx#: [id number] Oral 400 240 110 Output: Urine 1400 900 Other: Voiding Method Urinal Urinal Urinal - Labs CBC & Chem 7: 12/18/24 08:41 12/18/24 11:52
[2024-12-18 13:54] VITALS: BMI 29.4
[2024-12-18 15:22] LABS: Chol/HDL Ratio 3.68 Ratio; LDL Cholesterol,Calculated 74.3 mg/dL (0.0-131.0)
--- NOTE | 2024-12-18 21:25 | PN ---
PROGRESS NOTE CHIEF COMPLAINT: Chest pain. HISTORY OF PRESENT ILLNESS: This gentleman is doing a little bit better. He is still having some chest pain. He is not particularly short of breath. PHYSICAL EXAMINATION: VITAL SIGNS: Blood pressure is 92/54. LUNGS: Breath sounds are diminished at the right base. CARDIAC: Reveals atrial fibrillation. ABDOMEN: Soft and nontender. IMPRESSION: 1. Chest pain. 2. Advanced coronary artery disease status post coronary artery bypass grafts and stenting. 3. Atherosclerotic cardiomyopathy. 4. Chronic congestive heart failure. 5. Chronic obstructive pulmonary disease. PLAN: Await recommendations from Cardiology. His troponins are negative. MMODL / IJN: [id number] /
[2024-12-19 07:33] LABS: Mean Platelet Volume 9.3; Platelet Count 232 k/uL (150-450)
[2024-12-19 07:36] LABS: African American GFR (CKD) 55 (>60 ml/min/1.73 sqM); Anion Gap 12 mmol/L; Blood Urea Nitrogen 21 mg/dL (9-20); Calcium 9.3 mg/dL (8.4-10.2); Carbon Dioxide 29 mmol/L (22-30); Chloride 96 mmol/L (98-107); Glucose 98 mg/dL (74-99); Non-African American GFR(CKD) 47 (>60 ml/min/1.73 sqM); Sodium 137 mmol/L (137-145)
[2024-12-19 08:10] VITALS: BP 111/62; PULSE 70; RESP 14; TEMP 98.5
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
--- NOTE | 2024-12-19 23:49 | DS ---
DISCHARGE SUMMARY CHIEF COMPLAINT: Chest pain and shortness of breath. HISTORY OF PRESENT ILLNESS AND PHYSICAL EXAMINATION: Details of this man's history and physical can be found in the initial workup. LABORATORY STUDIES: While he was in the hospital, he had laboratory studies, details of which can be found in the laboratory section of his chart. COURSE IN THE HOSPITAL: After admission, he was placed on bedrest, started on intravenous fluids and he had serial EKGs and enzymes and they were normal and unchanged. He was seen by Cardiology. Given that he is maxed out on every possible management that can be offered to him with his end-stage CABG, it was felt that he could be discharged home on the . There were some medication changes and he will be followed up in several days in the office. FINAL DIAGNOSES: 1. Acute coronary syndrome. 2. Advanced coronary artery disease. 3. Status post 2 coronary artery bypass grafts. 4. Acute on chronic congestive heart failure. 5. Right pleural effusion. 6. Chronic obstructive pulmonary disease. 7. Depression. 8. Stage IIIA chronic kidney disease. OPERATIONS: None. CONSULTATIONS: Cardiology. He is improved. MMODL / IJN: [id number] /
--- NOTE | 2024-12-20 17:47 | CDI ---
Documentation Clarification Form Date: 12/20/2024 05:27:54 PM From: Ewa Black Phone: Admit Date: 12/17/2024 02:53:00 AM Patient Name: Israel Simmons Visit Number: [id number] Discharge Date: 12/19/2024 11:46:00 AM ATTENTION: The Clinical Documentation Specialists (CDI) and [facility] Coding Staff appreciate your assistance in clarifying documentation. Please respond to the clarification below the line at the bottom and electronically sign. The CDI & [facility] Coding staff will review the response and follow-up if needed. Please note: Queries are made part of the Legal Health Record. If you have any questions, please contact the author of this message via ITS. Doctor/Provider: Alexx Gee Your patient is receiving the following: chronic oxygen dependenceon 4 L/min nasal cannula while at home. Please clarify what condition/diagnosis is being treated. History/Risk Factors: 69yo M, CAD sp CABGx2 & stents, severeICM, MR, HTN, LCA stenosis, COPD,former tobacco Clinical indicators: 12/17 Respiratory 18 20 26 O2 Sat by Pulse 97 95 95 Oximetry 12/18 SpO2 was recorded at 97% on room air 12/19 heart rate 68 bpm, [id number]/54 mmHg, nontachypneic, SpO2 was recorded at 97% on RA Treatment: Currently on room airoxygenContinue Lasix 40 mg twice daily What diagnosis are you treating with chronic oxygen? [ ] Chronic Respiratory Failure [ ] Hypoxic [ ] Hypercapnia [ ] COPD [ ] No additional diagnosis [ ] Other, please specify [ ] Unable to determine (Template Last Reviewed: November 2020) MTDD
--- NOTE | 2024-12-22 20:11 | MISC ---
MISCELLANOUS REPORT COPD and congestive heart failure. MMODL / IJN: [id number] /
== END 2024-12-19 11:46 | disposition home or self-care (01) | DRG 311 ==
LOC: EC 01:20 → 3SCARD 02:53
PROVIDERS: ADMIT Family Medicine; ATTEND Family Medicine
DX: I24.9 Acute ischemic heart disease, unspecified (principal); I50.23 Acute on chronic systolic (congestive) heart failure; I13.0 Hypertensive heart and chronic kidney disease with heart failure and stage 1 through stage 4 chronic kidney disease, or unspecified chronic kidney disease; J44.9 Chronic obstructive pulmonary disease, unspecified; N18.31 Chronic kidney disease, stage 3a; D64.9 Anemia, unspecified; F32.A Depression, unspecified; I34.0 Nonrheumatic mitral (valve) insufficiency; I65.22 Occlusion and stenosis of left carotid artery; I25.110 Atherosclerotic heart disease of native coronary artery with unstable angina pectoris; I48.0 Paroxysmal atrial fibrillation; I25.5 Ischemic cardiomyopathy; E78.5 Hyperlipidemia, unspecified; T50.906A Underdosing of unspecified drugs, medicaments and biological substances, initial encounter; G47.33 Obstructive sleep apnea (adult) (pediatric); Z99.81 Dependence on supplemental oxygen; Z91.148 Patient's other noncompliance with medication regimen for other reason; Z79.01 Long term (current) use of anticoagulants; Z95.1 Presence of aortocoronary bypass graft; Z79.82 Long term (current) use of aspirin; Z79.84 Long term (current) use of oral hypoglycemic drugs; I25.2 Old myocardial infarction; Z95.5 Presence of coronary angioplasty implant and graft; Z87.891 Personal history of nicotine dependence; Z79.899 Other long term (current) drug therapy; Z98.1 Arthrodesis status; Z82.49 Family history of ischemic heart disease and other diseases of the circulatory system
CPT/HCPCS: 36415; 70450; 71046; 72125; 80048; 80053; 80061; 83690; 83735; 83880; 84484; 85025; 85049; 85610; 85730; 93005; 93308; 96361; 96365; 96366; 96375; 96376; 99291

== ENCOUNTER 2024-12-29 04:52 | Observation (INO) | payer MEDICARE, OTHER ==
[2024-12-29 04:55] VITALS: TEMP 97.9
--- NOTE | 2024-12-29 05:11 | ED ---
General Adult HPI - General Chief complaint: Chest Pain Stated complaint: MICKIE Time Seen by Provider: 12/29/24 05:03 Source: patient Mode of arrival: ambulatory Limitations: no limitations - History of Present Illness Initial comments: Patient is a 69-year-old gentleman past medical history of CAD, CHF today for chest pain shortness of breath. Woke up this morning feeling sweaty and felt like he could not breathe. Endorses shortness of breath with associated chest tightness sensation and pressure. Endorses nausea but no emesis. Took 1 sublingual nitro at home prior to arrival without improvement in pain. History is limited by patient's discomfort - Related Data Home Medications Medication Instructions Recorded Confirmed ALPRAZolam [Xanax] 2 mg PO TID PRN 07/27/24 12/29/24 Aspirin EC [Ecotrin Low Dose] 81 mg PO DAILY 09/05/24 12/29/24 Apixaban [Eliquis] 2.5 mg PO BID 12/07/24 12/29/24 carvediloL [Coreg] 3.125 mg PO BID 12/07/24 12/29/24 haloperidoL [Haldol] 0.5 mg PO BID 12/07/24 12/29/24 Albuterol Sulfate [Albuterol 2 puff INHALATION RT-QID PRN 12/17/24 12/29/24 Sulfate Hfa] Furosemide [Lasix] 40 mg PO DAILY 12/17/24 12/29/24 Gabapentin [Neurontin] 100 mg PO TID 12/17/24 12/29/24 Sacubitril/Valsartan [Entresto 24 1 tab PO BID 12/29/24 12/29/24 mg-26 mg Tablet] Previous Rx's Medication Instructions Recorded Atorvastatin [Lipitor] 80 mg PO HS #30 tab 12/19/24 Dapagliflozin Propanediol [Farxiga] 10 mg PO DAILY #30 tab 12/19/24 Spironolactone [Aldactone] 12.5 mg PO DAILY #30 tab 12/19/24 Allergies Allergy/AdvReac Type Severity Reaction Status Date / Time latex Allergy Swelling Verified 12/29/24 11:25 atorvastatin [From Lipitor] AdvReac JOINT PAIN Verified 12/29/24 11:25 Review of Systems ROS Statement: Those systems with pertinent positive or pertinent negative responses have been documented in the HPI. ROS Other: All systems not noted in ROS Statement are negative. Limitations: ROS unobtainable due to patients medical condition Past Medical History Past Medical History: Coronary Artery Disease (CAD), Chest Pain / Angina, Heart Failure, COPD, GERD/Reflux, Hyperlipidemia, Hypertension, Myocardial Infarction (OR), Osteoarthritis (OA), Sleep Apnea/CPAP/BIPAP Additional Past Medical History / Comment(s): Chronic back pain, left leg weakness. 4LNC. States unsure about having had a heart attack. Last Myocardial Infarction Date:: 11/11/22 History of Any Multi-Drug Resistant Organisms: None Reported Past Surgical History: Back Surgery, Cholecystectomy, Coronary Bypass/CABG, Heart Catheterization With Stent Additional Past Surgical History / Comment(s): Back surgery X2 with cage, left tennis elbow surgery, heart stents X7, colonoscopy. emergency CABG [facility] [place], thrombectomy. April Past Anesthesia/Blood Transfusion Reactions: No Reported Reaction Additional Past Anesthesia/Blood Transfusion Reaction / Comment(s): Pt received blood during CABG without reaction. Date of Last Stent Placement:: Oct 2022 Past Psychological History: Anxiety, Depression, PTSD Smoking Status: Former smoker, Vaper Past Alcohol Use History: None Reported Past Drug Use History: None Reported - Past Family History Father Family Medical History: Coronary Artery Disease (CAD), Deep Vein Thrombosis (DVT), GERD/Reflux, Hyperlipidemia, Myocardial Infarction (OR) Additional Family Medical History / Comment(s): Father of a OR in his 80's. Mother Family Medical History: Coronary Artery Disease (CAD), Myocardial Infarction (OR) Additional Family Medical History / Comment(s): Mother of a OR. Brother(s) Family Medical History: Myocardial Infarction (OR) Additional Family Medical History / Comment(s): . Sister(s) Family Medical History: Cancer, Diabetes Mellitus Additional Family Medical History / Comment(s): Lung cancer. Other sister had Diabetes. General Exam - General Exam Comments Initial Comments: PE: CONSTITUTIONAL: In mild distress, overall well-appearing, nontoxic SKIN: Warm, dry, no jaundice, hives or petechiae EYES: Pupils are equally round, extraocular movements intact without nystagmus, clear conjunctiva, non-icteric sclera HENT: Normocephalic, atraumatic, moist mucus membranes, oropharynx clear without exudates NECK: , Full range of motion, normal appearance PULMONARY: Clear to auscultation without wheezes, rhonchi, or rales, normal excursion, no accessory muscle use and no stridor CARDIOVASCULAR: Regular rate, rhythm, normal S1 and S2. No appreciated murmurs, rubs or gallops. Strong radial pulses with intact distal perfusion. No lower extremity edema GASTROINTESTINAL: Soft, active bowel sounds throughout, mild epigastric tenderness to palpation, non-distended, no palpable masses, no rebound or guarding. No hepatosplenomegaly GENITOURINARY: MUSCULOSKELETAL: Extremities have no gross deformity, no edema, redness, or swelling. No calf swelling NEUROLOGIC:_a/o x 3, GCS 15, normal mentation and speech. Moves all extremities x 4 without motor or sensory deficit PSYCHIATRIC:_normal mood and affect, thought process is clear and linear Limitations: no limitations Course Vital Signs 12/29/24 12/29/24 12/29/24 04:53 05:01 05:06 Temperature 97.9 F Pulse Rate 88 81 84 Respiratory 20 20 20 Rate Blood Pressure 140/71 135/76 131/72 O2 Sat by Pulse 95 99 99 Oximetry 12/29/24 12/29/24 12/29/24 05:12 05:21 06:06 Temperature Pulse Rate 80 77 68 Respiratory 18 18 18 Rate Blood Pressure 145/68 129/72 132/81 O2 Sat by Pulse 100 100 99 Oximetry 12/29/24 12/29/24 12/29/24 07:48 08:24 09:44 Temperature Pulse Rate 79 75 74 Respiratory 18 18 18 Rate Blood Pressure 111/63 106/70 106/77 O2 Sat by Pulse 97 97 97 Oximetry - Reevaluation(s) Reevaluation #1: I was brought to bedside out of concern for acute OR in a patient with prior ACS and presenting for chest pain and shortness of breath. Appears reviewed EKG and compared to prior, patient has not had multiple prior EKGs and does have exte nsive ACS, today's initial EKG has new upright T waves in lead V2 though no new significant ST elevations or depressions from prior, second EKG will be obtained, ACS labs, nitro, morphine and Zofran were ordered. 12/29/24 05:09 EKG Findings - EKG Comments: EKG Findings:: EKG #1, performed at 5:01 AM, sinus rhythm, rate 82 bpm, NV i nterval 130 ms QT/QTc 415/453 ms, normal axis, Q-wave presently to 3 and aVF, compared to EKG performed in 12/17/2023, actually appears improved from prior, there does not appear to be any new ST elevations or depressions, indeterminate EKG, no STEMI. Repeat EKG performed at 5:13 AM, due to persistent chest pain, new T wave inversion lead V6, otherwise no new ST elevations or depressions, atrial fibrillation, no STEMI Medical Decision Making - Medical Decision Making Was pt. sent in by a medical professional or institution (, PA, ACID CONDENSER, urgent care, hospital, or halfway...) When possible be specific @ -No Did you speak to anyone other than the patient for history (EMS, parent, family, police, friend...)? What history was obtained from this source @ -No Did you review nursing and triage notes (agree or disagree)? Why? @ -I reviewed nursing and triage notes Were old charts reviewed (outside hosp., previous admission, EMS record, old EKG, old radiological studies, urgent care reports/EKG's, halfway records)? Report findings @ -Medical records reviewed-patient has been here multiple times for similar complaints, has extensive history ACS, today's EKG was compared to prior multiple EKGs, as compared to EKG on 12/17/2023 continues EKG actually appears improved from prior -Reviewed chest CTA performed less than 1 month ago on 12/07/2024, showed consolidative changes in the right lower lobe suggested a right lower lobe pneumonia, moderate to large right pleural effusion, parapneumonic, no central PE Differential Diagnosis (chest pain, altered mental status, abdominal pain women, abdominal pain men, vaginal bleeding, weakness, fever, dyspnea, syncope, headache, dizziness, GI bleed, back pain, seizure, CVA, palpatations, mental health, musculoskeletal)? Differential Chest Pain: Stable Angina, Unstable Angina, STEMI, NSTEMI Aortic Dissection, pericarditis, pleurisy, chostochondirits, Pneumothorax, Musculoskeletal, Esophageal Spasm GERD, Cholecystitis, Pancreatitis, Zoster, this is not meant to be an all-inc lusive list. EKG interpreted by me (3pts min.). @ -As above X-rays interpreted by me (1pt min.). @Personally reviewed chest x-ray, cardiomegaly noted, no widened mediastinum, no pneumothorax, pleural effusion noted in right lower lobe of lung compared to x- ray performed on 12/18/2024, cardiomegaly appears slightly worsened from prior, left lower lobe consolidation/pleural effusion appears overall stable from prior, though cardiomegaly appears slightly worsened to myself, otherwise agree with radiologist interpretation CT interpreted by me (1pt min.). @ -None done U/S interpreted by me (1pt. min.). @ -None done What testing was considered but not performed or refused? (CT, X-rays, U/S, labs)? Why? @ -None What meds were considered but not given or refused? Why? @ -None Did you discuss the management of the patient with other professionals (professionals i.e. , PA, ACID CONDENSER, lab, RT, psych nurse, mental health social worker, melter supervisor open hearth furnace, teacher, special service officer, director of casework)? Give summary @ -No Was smoking cessation discussed for >3mins.? @ -No Was critical care preformed (if so, how long)? @ -Yes 35 minutes Were there social determinants of health that impacted care today? How? (Homelessness, low income, unemployed, alcoholism, drug addiction, transportation, low edu. Level, literacy, decrease access to med. care, penitentiary, rehab)? @ -No Was there de-escalation of care discussed even if they declined (Discuss DNR or withdrawal of care, Hospice)? @ -No What co-morbidities impacted this encounter? (DM, HTN, Smoking, COPD, CAD, Cancer, CVA, ARF, Chemo, Hep., AIDS, mental health diagnosis, sleep apnea, morbid obesity)? @ DM, HTN, CAD, COPD, HLD Was patient admitted / discharged? Hospital course, mention meds given and route, prescriptions, significant lab abnormalities, going to OR and other perti nent info. @ Admission- This is a pleasant 69 y/o gentleman presenting today for chest pain, extensive cardiac hx, recurrent admissions for similar complaint. Not improved w/ SL nitro. Pt seen and assessed on arrival out of concern for STEMI however EKG appears overall stable from prior without acute ischemic changes. Will continue w/ cardiac w/u and pain control. Pt agreeable with POC. Pt endorse d minimal improvement of pain on reassessment. Ordered additional pain control, cardiac enzmes wnl. Plan for admission to unstable angina. Pt agreeable w/ POC. Case discussed w/ Dr. Gee, kindly accepts pt for admission. Undiagnosed new problem with uncertain prognosis? @ -No Drug Therapy requiring intensive monitoring for toxicity (Heparin, Nitro, Insulin, Cardizem)? @ -No Were any procedures done? @ -No Diagnosis/symptom? @ -unstable angina Acute, or Chronic, or Acute on Chronic? acute Uncomplicated (without systemic symptoms) or Complicated (systemic symptoms)? complicated Side effects of treatment? @ -No Exacerbation, Progression, or Severe Exacerbation? @ -No Poses a threat to life or bodily function? How? (Chest pain, USA, OR, pneumonia, PE, COPD, DKA, ARF, appy, cholecystitis, CVA, Diverticulitis, Homicidal, Suicidal, threat to staff... and all critical care pts) @ Yes - Lab Data Result diagrams: 12/29/24 05:11 12/29/24 05:11 Lab Results 12/29/24 12/29/24 12/29/24 Range/Units 05:11 05:11 05:11 WBC 5.5 (3.8-10.6) k/uL RBC 5.48 (4.30-5.90) m/uL Hgb 14.2 (13.0-17.5) gm/dL Hct 46.3 (39.0-53.0) % MCV 84.5 (80.0-100.0) fL MCH 25.9 (25.0-35.0) pg MCHC 30.7 L (31.0-37.0) g/dL RDW 16.4 H (11.5-15.5) % Plt Count 143 L (150-450) k/uL MPV 10.2 Neutrophils % 54 % Lymphocytes % 30 % Monocytes % 11 % Eosinophils % 2 % Basophils % 1 % Neutrophils # 3.0 (1.3-7.7) k/uL Lymphocytes # 1.6 (1.0-4.8) k/uL Monocytes # 0.6 (0-1.0) k/uL Eosinophils # 0.1 (0-0.7) k/uL Basophils # 0.0 (0-0.2) k/uL Hypochromasia Moderate Anisocytosis Slight PT 11.1 (10.0-12.5) sec INR 1.0 (<1.2) APTT 24.4 (22.0-30.0) sec Sodium 137 (137-145) mmol/L Potassium 3.9 (3.5-5.1) mmol/L Chloride 103 (98-107) mmol/L Carbon Dioxide 23 (22-30) mmol/L Anion Gap 11 mmol/L BUN 18 (9-20) mg/dL Creatinine 0.89 (0.66-1.25) mg/dL Est GFR (CKD-EPI)AfAm >90 (>60 ml/min/1.73 sqM) Est GFR (CKD-EPI)NonAf 89 (>60 ml/min/1.73 sqM) Glucose 92 (74-99) mg/dL Calcium 9.3 (8.4-10.2) mg/dL Magnesium 1.9 (1.6-2.3) mg/dL Total Bilirubin 0.9 (0.2-1.3) mg/dL AST 30 (17-59) U/L ALT 21 (4-49) U/L Alkaline Phosphatase 149 H (38-126) U/L Troponin I (0.000-0.034) ng/mL NT-Pro-B Natriuret Pep 911 pg/mL Total Protein 7.2 (6.3-8.2) g/dL Albumin 4.0 (3.5-5.0) g/dL 12/29/24 Range/Units 05:11 WBC (3.8-10.6) k/uL RBC (4.30-5.90) m/uL Hgb (13.0-17.5) gm/dL Hct (39.0-53.0) % MCV (80.0-100.0) fL MCH (25.0-35.0) pg MCHC (31.0-37.0) g/dL RDW (11.5-15.5) % Plt Count (150-450) k/uL MPV Neutrophils % % Lymphocytes % % Monocytes % % Eosinophils % % Basophils % % Neutrophils # (1.3-7.7) k/uL Lymphocytes # (1.0-4.8) k/uL Monocytes # (0-1.0) k/uL Eosinophils # (0-0.7) k/uL Basophils # (0-0.2) k/uL Hypochromasia Anisocytosis PT (10.0-12.5) sec INR (<1.2) APTT (22.0-30.0) sec Sodium (137-145) mmol/L Potassium (3.5-5.1) mmol/L Chloride (98-107) mmol/L Carbon Dioxide (22-30) mmol/L Anion Gap mmol/L BUN (9-20) mg/dL Creatinine (0.66-1.25) mg/dL Est GFR (CKD-EPI)AfAm (>60 ml/min/1.73 sqM) Est GFR (CKD-EPI)NonAf (>60 ml/min/1.73 sqM) Glucose (74-99) mg/dL Calcium (8.4-10.2) mg/dL Magnesium (1.6-2.3) mg/dL Total Bilirubin (0.2-1.3) mg/dL AST (17-59) U/L ALT (4-49) U/L Alkaline Phosphatase (38-126) U/L Troponin I 0.015 (0.000-0.034) ng/mL NT-Pro-B Natriuret Pep pg/mL Total Protein (6.3-8.2) g/dL Albumin (3.5-5.0) g/dL Disposition Clinical Impression: Chest pain, Unstable angina Disposition: ADMITTED IP TO THIS [facility] Condition: Stable
[2024-12-29 05:12] VITALS: RESP 18
[2024-12-29] MEDS: ONDANSETRON 4 MG/2 ML VIAL IVP STA ×2 (05:14→07:49)
[2024-12-29] MEDS: MORPHINE SULFATE 4 MG/ML SYRINGE IV STA (05:16)
[2024-12-29] MEDS: NITROGLYCERIN SL TABS 0.4 MG TAB SUBLINGUAL STA (05:17)
[2024-12-29] MEDS: ASPIRIN 81 MG PO STA (05:17)
[2024-12-29] MEDS: SODIUM CHLORIDE 0.9% 500 ML 500 ML IV STA (05:18)
[2024-12-29 05:34] LABS: Anisocytosis Slight; Basophils % (A) 1 %; Eosinophils # (A) 0.1 k/uL (0-0.7); Eosinophils % (A) 2 %; HCT 46.3 % (39.0-53.0); HGB 14.2 gm/dL (13.0-17.5); Hypochromasia Moderate; Lymphocytes # (A) 1.6 k/uL (1.0-4.8); Lymphocytes % (A) 30 %; MCH 25.9 pg (25.0-35.0); MCHC 30.7 g/dL (31.0-37.0); MCV 84.5 fL (80.0-100.0); Mean Platelet Volume 10.2; Monocytes # (A) 0.6 k/uL (0-1.0); Monocytes % (A) 11 %; Neutrophils % (A) 54 %; Platelet Count 143 k/uL (150-450); RBC 5.48 m/uL (4.30-5.90); RDW 16.4 % (11.5-15.5); WBC 5.5 k/uL (3.8-10.6)
[2024-12-29 05:43] LABS: ALT 21 U/L (4-49); AST 30 U/L (17-59); African American GFR (CKD) >90 (>60 ml/min/1.73 sqM); Alkaline Phosphatase 149 U/L (38-126); Anion Gap 11 mmol/L; Blood Urea Nitrogen 18 mg/dL (9-20); Calcium 9.3 mg/dL (8.4-10.2); Carbon Dioxide 23 mmol/L (22-30); Chloride 103 mmol/L (98-107); Glucose 92 mg/dL (74-99); Magnesium 1.9 mg/dL (1.6-2.3); Non-African American GFR(CKD) 89 (>60 ml/min/1.73 sqM); Potassium 3.9 mmol/L (3.5-5.1); Sodium 137 mmol/L (137-145); Total Bilirubin 0.9 mg/dL (0.2-1.3); Total Protein 7.2 g/dL (6.3-8.2)
[2024-12-29 05:52] LABS: NT-Pro-B-Type Natriuretic Pept 911 pg/mL
[2024-12-29 06:20] LABS: Partial Thromboplastin Time 24.4 sec (22.0-30.0); Prothrombin Time 11.1 sec (10.0-12.5)
--- NOTE | 2024-12-29 06:50 | XR ---
EXAM: XR Chest, 1 View CLINICAL HISTORY: ITS.REASON XR Reason: chest pain TECHNIQUE: Frontal view of the chest. COMPARISON: 12/17/2024 FINDINGS: Lungs: Right base atelectasis. No consolidation. Pleural space: Unremarkable. No pneumothorax. Heart: Stable cardiomegaly. Median sternotomy wires in place. Mediastinum: Unremarkable. Normal mediastinal contour. Bones/joints: Unremarkable. No acute fracture. IMPRESSION: Unchanged moderate right pleural effusion with right base atelectasis.
[2024-12-29] MEDS ORDERED: MORPHINE SULFATE 4 MG/ML SYRINGE IV PRN (06:57)
[2024-12-29] MEDS ORDERED: CALCIUM CARBONATE 500 MG CHEWABLE PO PRN (06:57)
[2024-12-29] MEDS ORDERED: MAG HYDROX/AL HYDROX/SIMETH 30 ML CUP PO PRN (06:57)
[2024-12-29] MEDS ORDERED: traMADol 50 MG TAB PO PRN (06:57)
[2024-12-29] MEDS ORDERED: ACETAMINOPHEN TAB 325 MG TAB PO PRN (06:57)
[2024-12-29] MEDS ORDERED: ONDANSETRON 4 MG/2 ML VIAL IVP PRN (06:57)
[2024-12-29] MEDS ORDERED: NALOXONE 0.4 MG/ML 1 ML VIAL IV PRN (06:57)
[2024-12-29] MEDS ORDERED: ALBUTEROL NEBULIZED 2.5 MG/3 ML INHALATION PRN (06:59)
[2024-12-29] MEDS ORDERED: ALPRAZolam 1 MG TAB PO PRN (06:59)
[2024-12-29] MEDS: MORPHINE SULFATE 4 MG/ML SYRINGE IVP STA (07:51)
[2024-12-29] MEDS: FAMOTIDINE 20 MG/2 ML VIAL IV STA (07:52)
[2024-12-29] MEDS: SACUBITRIL/VALSARTAN 24 MG-26 MG TABLET PO SCH (08:27)
[2024-12-29] MEDS: APIXABAN 2.5 MG TABLET PO SCH (08:27)
[2024-12-29] MEDS: SPIRONOLACTONE 25 MG TAB PO SCH (08:27)
[2024-12-29] MEDS: DAPAGLIFLOZIN PROPANEDIOL 10 MG TABLET PO SCH (08:27)
[2024-12-29] MEDS: carvediloL 3.125 MG TAB PO SCH (08:27)
[2024-12-29] MEDS: GABAPENTIN 100 MG CAP PO SCH (08:27)
[2024-12-29] MEDS: FUROSEMIDE 40 MG TAB PO SCH (08:28)
[2024-12-29] MEDS: haloperidoL 0.5 MG TAB PO SCH (08:28)
[2024-12-29 09:45] VITALS: BP 106/77; PULSE 74
[2024-12-29] MEDS ORDERED: FAMOTIDINE 20 MG TAB PO SCH (21:00)
[2024-12-29] MEDS ORDERED: SACUBITRIL/VALSARTAN 24 MG-26 MG TABLET PO SCH (21:00)
[2024-12-29] MEDS ORDERED: ATORVASTATIN 80 MG TAB PO SCH (21:00)
--- NOTE | 2024-12-30 08:18 | HP ---
HISTORY AND PHYSICAL CHIEF COMPLAINT: Chest pain. HISTORY OF PRESENT ILLNESS: This is another admission for this 69-year-old white male with advanced and end-stage coronary artery disease. He has been in and out of the hospital recently for unstable angina, congestive episodes of acute and chronic congestive heart failure and right pleural effusion. He came back into the emergency room at this time with chest pain. Studies were unremarkable. His review of systems is unchanged without any other concurrent symptoms such as diaphoresis, nausea, vomiting, etc. PHYSICAL EXAMINATION: VITAL SIGNS: Unremarkable. HEAD, EARS, EYES, NOSE, MOUTH, AND THROAT: Normal. CHEST: Demonstrates poor breath sounds at the bases, particularly on the right. CARDIAC: Unremarkable with sinus rhythm. ABDOMEN: Soft and nontender. EXTREMITIES: Normal. IMPRESSION: 1. Acute coronary syndrome. 2. Unstable coronary artery disease. 3. Advanced and end-stage chronic obstructive pulmonary disease. 4. Acute on chronic congestive heart failure. 5. Chronic obstructive pulmonary disease. PLAN: 1. Bed rest. 2. IV fluids. 3. Analgesics. 4. Serial EKGs and enzymes. MMODL / IJN: [id number] /
[2024-12-30] MEDS ORDERED: ASPIRIN 81 MG PO SCH (09:00)
== END 2024-12-29 14:05 | disposition left against medical advice (07) ==
LOC: EC 04:52 → 6NMEDSUR 06:57
PROVIDERS: ADMIT Family Medicine; ATTEND Family Medicine
DX: I25.110 Atherosclerotic heart disease of native coronary artery with unstable angina pectoris (principal); I11.0 Hypertensive heart disease with heart failure; I50.9 Heart failure, unspecified; J44.9 Chronic obstructive pulmonary disease, unspecified; E11.9 Type 2 diabetes mellitus without complications; E78.5 Hyperlipidemia, unspecified; Z79.01 Long term (current) use of anticoagulants; Z79.82 Long term (current) use of aspirin; Z79.84 Long term (current) use of oral hypoglycemic drugs; Z79.899 Other long term (current) drug therapy; Z88.8 Allergy status to other drugs, medicaments and biological substances; Z91.040 Latex allergy status; Z87.891 Personal history of nicotine dependence
CPT/HCPCS: 96376; 96374; 96375; 99291; 36415; 93005; 83880; 80053; 83735; 84484; 85025; 85610; 85730; 71045; G0378; J2270; J2405; J3490; 99285

== ENCOUNTER 2025-02-05 13:06 | Observation (INO) | payer MEDICARE, OTHER ==
--- NOTE | 2025-02-05 14:01 | ED ---
General Adult HPI - General Chief complaint: Recheck/Abnormal Lab/Rx Stated complaint: MICKIE Time Seen by Provider: 02/05/25 13:34 Source: patient Mode of arrival: ambulatory Limitations: no limitations - History of Present Illness Initial comments: Dictation was produced using [employer] dictation software. please excuse any grammatical, word or spelling errors. Chief Complaint: 69-year-old male presents to the emergency department for thoracentesis History of Present Illness: Patient 69-year-old male presents to the emergency department for thoracentesis. Patient states that he has been short of breath. He called animal care provider who told patient to come to the ER for thoracentesis. Patient has history of cardiomyopathy and pleural effusion secondary to cardiac causes in the past. Denies any fever chills or night sweats. No cough. The ROS documented in this emergency department record has been reviewed and confirmed by me. Those systems with pertinent positive or negative responses have been documented in the HPI. All other systems are other negative and/or noncontributory. - Related Data Home Medications Medication Instructions Recorded Confirmed ALPRAZolam [Xanax] 2 mg PO TID PRN 07/27/24 12/29/24 Aspirin EC [Ecotrin Low Dose] 81 mg PO DAILY 09/05/24 12/29/24 Apixaban [Eliquis] 2.5 mg PO BID 12/07/24 12/29/24 carvediloL [Coreg] 3.125 mg PO BID 12/07/24 12/29/24 haloperidoL [Haldol] 0.5 mg PO BID 12/07/24 12/29/24 Albuterol Sulfate [Albuterol 2 puff INHALATION RT-QID PRN 12/17/24 12/29/24 Sulfate Hfa] Furosemide [Lasix] 40 mg PO DAILY 12/17/24 12/29/24 Gabapentin [Neurontin] 100 mg PO TID 12/17/24 12/29/24 Sacubitril/Valsartan [Entresto 24 1 tab PO BID 12/29/24 12/29/24 mg-26 mg Tablet] Previous Rx's Medication Instructions Recorded Atorvastatin [Lipitor] 80 mg PO HS #30 tab 12/19/24 Dapagliflozin Propanediol [Farxiga] 10 mg PO DAILY #30 tab 12/19/24 Spironolactone [Aldactone] 12.5 mg PO DAILY #30 tab 12/19/24 oxyCODONE HCL/ACETAMINOPHEN 1 tab PO Q6HR PRN 3 Days #12 tab 02/05/25 [Percocet 5-325 mg] Allergies Allergy/AdvReac Type Severity Reaction Status Date / Time latex Allergy Swelling Verified 02/05/25 13:30 atorvastatin [From Lipitor] AdvReac JOINT PAIN Verified 02/05/25 13:30 Review of Systems ROS Statement: Those systems with pertinent positive or pertinent negative responses have been documented in the HPI. ROS Other: All systems not noted in ROS Statement are negative. Past Medical History Past Medical History: Coronary Artery Disease (CAD), Chest Pain / Angina, Heart Failure, COPD, GERD/Reflux, Hyperlipidemia, Hypertension, Myocardial Infarction (PA), Osteoarthritis (OA), Sleep Apnea/CPAP/BIPAP Additional Past Medical History / Comment(s): Chronic back pain, left leg weakness. 4LNC. States unsure about having had a heart attack. Last Myocardial Infarction Date:: 11/11/22 History of Any Multi-Drug Resistant Organisms: None Reported Past Surgical History: Back Surgery, Cholecystectomy, Coronary Bypass/CABG, Heart Catheterization With Stent Additional Past Surgical History / Comment(s): Back surgery X2 with cage, left tennis elbow surgery, heart stents X7, colonoscopy. emergency CABG [facility], thrombectomy. April Past Anesthesia/Blood Transfusion Reactions: No Reported Reaction Additional Past Anesthesia/Blood Transfusion Reaction / Comment(s): Pt received blood during CABG without reaction. Date of Last Stent Placement:: Oct 2022 Past Psychological History: Anxiety, Depression, PTSD Smoking Status: Former smoker, Vaper Past Alcohol Use History: None Reported Past Drug Use History: None Reported - Past Family History Father Family Medical History: Coronary Artery Disease (CAD), Deep Vein Thrombosis (DVT), GERD/Reflux, Hyperlipidemia, Myocardial Infarction (PA) Additional Family Medical History / Comment(s): Father of a PA in his 80's. Mother Family Medical History: Coronary Artery Disease (CAD), Myocardial Infarction (PA) Additional Family Medical History / Comment(s): Mother of a PA. Brother(s) Family Medical History: Myocardial Infarction (PA) Additional Family Medical History / Comment(s): . Sister(s) Family Medical History: Cancer, Diabetes Mellitus Additional Family Medical History / Comment(s): Lung cancer. Other sister had Diabetes. General Exam - General Exam Comments Initial Comments: PHYSICAL EXAM: General Impression: Alert and oriented x3, not in acute distress HEENT: Normocephalic atraumatic, extra-ocular movements intact, pupils equal and reactive to light bilaterally, mucous membranes moist. Cardiovascular: Heart regular rate and rhythm Chest: Able to complete full sentences, no retractions, no tachypnea Abdomen: abdomen soft, non-tender, non-distended, no organomegaly Musculoskeletal: Pulses present and equal in all extremities, no peripheral edema Motor: no focal deficits noted Neurological: CN II-XII grossly intact, no focal motor or sensory deficits noted Skin: Intact with no visualized rashes Psych: Normal affect and mood Limitations: no limitations Course Vital Signs 02/05/25 02/05/25 13:27 14:30 Temperature 97.8 F Pulse Rate 70 70 Respiratory 20 20 Rate Blood Pressure 133/67 99/50 O2 Sat by Pulse 97 94 L Oximetry EKG Findings - EKG Comments: EKG Findings:: My EKG interpretation: Ventricular rate 5, sinus rhythm,. 135, QRS 108, QTc 439. No IL prolongation, no QTC prolongation, no ST or T-wave changes noted. No axis previous EKGs on EMR. Overall this EKG is nonspecific. Medical Decision Making - Medical Decision Making Was pt. sent in by a medical professional or institution (ROBERT Zelaya, CRYPTOZOOLOGIST, urgent care, hospital, or retirement...) When possible be specific @ -No Did you speak to anyone other than the patient for history (EMS, parent, family, police, friend...)? What history was obtained from this source @ -No Did you review nursing and triage notes (agree or disagree)? Why? @ -I reviewed and agree with nursing and triage notes Were old charts reviewed (outside hosp., previous admission, EMS record, old EKG, old radiological studies, urgent care reports/EKG's, retirement records)? Report findings @ -No old charts were reviewed Differential Diagnosis (chest pain, altered mental status, abdominal pain women, abdominal pain men, vaginal bleeding, musculoskeletal, weakness, fever, dyspnea, syncope, headache, dizziness, GI bleed, back pain, seizure, CVA, palpatations, mental health)? @ -Differential Dyspnea: Coronary syndrome, arrhythmia, tamponade, asthma, COPD, pulmonary embolism, pneumonia, pneumothorax, pulmonary effusion, anaphylaxis, diabetic ketoacidosis, flailed chest, pulmonary contusion, diaphragmatic rupture, anemia, neuromuscular, this is not meant to be an all-inclusive list. EKG interpreted by me (3pts min.). @ -See above X-rays interpreted by me (1pt min.). @ -X-ray shows pleural effusion at the right base CT interpreted by me (1pt min.). @ -None done U/S interpreted by me (1pt. min.). @ -None done What testing was considered but not performed or refused? (CT, X-rays, U/S, labs)? Why? @ -None What meds were considered but not given or refused? Why? @ -None Was smoking cessation discussed for >3mins.? @ -No Were there social determinants of health that impacted care today? How? (Homelessness, low income, unemployed, alcoholism, drug addiction, transportation, low edu. Level, literacy, decrease access to med. care, fdc, rehab)? @ -No Was there de-escalation of care discussed even if they declined (Discuss DNR or withdrawal of care, Hospice)? DNR status @ -No What co-morbidities impacted this encounter? (DM, HTN, Smoking, COPD, CAD, Cancer, CVA, ARF, Chemo, Hep., AIDS, mental health diagnosis, sleep apnea, morbi d obesity)? @ -None Was patient admitted / discharged? Hospital course, mention meds given and rout e, prescriptions, significant lab abnormalities, going to OR and other pertinent info. @ -69-year-old male presents to the emergency department for thoracentesis. Patient has history of pleural effusion. Vital signs stable. Patient no significant distress at the bedside. X-ray shows pleural effusion. Labs within acceptable limits. Will be admitted observation consultation pulmonology for ev aluation of thoracentesis Did you discuss the management of the patient with other professionals (pr ofessionals i.e. , PA, CRYPTOZOOLOGIST, lab, RT, psych nurse, director social, sorting grapple operator, teacher, multisensor intelligence officer, machine adjuster leader case trim)? Give summary @ -Case discussed with hospitalist for admission Was critical care preformed (if so, how long)? @ -No Undiagnosed new problem with uncertain prognosis? @ -No Drug Therapy requiring intensive monitoring for toxicity (Heparin, Nitro, Insulin, Cardizem)? @ -No Were any procedures done? @ -No Diagnosis/symptom? Acute, or Chronic, or Acute on Chronic? Uncomplicated (w ithout systemic symptoms) or Complicated (systemic symptoms)? @ -Pleural effusion Side effects of treatment? @ -No Exacerbation, Progression, or Severe Exacerbation? @ -No Poses a threat to life or bodily function? How? (Chest pain, USA, PA, pneumonia, PE, COPD, DKA, ARF, appy, cholecystitis, CVA, Diverticulitis, Homicidal, Suicidal, threat to staff... and all critical care pts) @ -yes - Lab Data Result diagrams: 02/05/25 14:02 02/05/25 14:02 Lab Results 02/05/25 02/05/25 02/05/25 Range/Units 14:02 14:02 14:02 WBC 4.59 (4.50-10.00) 10*3/uL RBC 5.12 (4.40-5.60) 10*6/uL Hgb 13.9 (13.0-17.0) g/dL Hct 42.8 (39.6-50.0) % MCV 83.6 (80.0-97.0) fL MCH 27.1 (27.0-32.0) pg MCHC 32.5 (32.0-37.0) g/dL Plt Count 115 L (140-440) 10*3/uL MPV 12.1 (9.5-12.2) fL Immature Gran % (Auto) 0.2 % Neutrophils % 67.9 % Lymphocytes % 19.2 % Monocytes % 10.9 % Eosinophils % 0.9 % Basophils % 0.9 % Immature Gran # 0.01 (0.00-0.04) 10*3/uL Neutrophils # 3.12 (1.80-7.70) 10*3/uL Lymphocytes # 0.88 L (0.90-5.00) 10*3/uL Monocytes # 0.50 (0.20-1.00) 10*3/uL Eosinophils # 0.04 (0.04-0.35) 10*3/uL Basophils # 0.04 (0.00-0.10) 10*3/uL Sodium 139 (137-145) mmol/L Potassium 4.4 (3.5-5.1) mmol/L Chloride 104 (98-107) mmol/L Carbon Dioxide 27 (22-30) mmol/L Anion Gap 8 mmol/L BUN 18 (9-20) mg/dL Creatinine 1.00 (0.66-1.25) mg/dL Est GFR (CKD-EPI)AfAm 90 (>60 ml/min/1.73 sqM) Est GFR (CKD-EPI)NonAf 78 (>60 ml/min/1.73 sqM) Glucose 92 (74-99) mg/dL Calcium 9.5 (8.4-10.2) mg/dL Total Bilirubin 0.8 (0.2-1.3) mg/dL AST 25 (17-59) U/L ALT 16 (4-49) U/L Alkaline Phosphatase 130 H (38-126) U/L Troponin I 0.014 (0.000-0.034) ng/mL NT-Pro-B Natriuret Pep 1670 pg/mL Total Protein 7.3 (6.3-8.2) g/dL Albumin 4.0 (3.5-5.0) g/dL Disposition Clinical Impression: Pleural effusion Disposition: ADMITTED IP TO THIS HOSP Condition: Fair Referrals: Alexx Gee MD [Primary Care Provider] - 1-2 days Decision Time: 14:44
[2025-02-05 14:10] LABS: Basophils # (A) 0.04 10*3/uL (0.00-0.10); Basophils % (A) 0.9 %; Eosinophils # (A) 0.04 10*3/uL (0.04-0.35); Eosinophils % (A) 0.9 %; HCT 42.8 % (39.6-50.0); HGB 13.9 g/dL (13.0-17.0); Lymphocytes # (A) 0.88 10*3/uL (0.90-5.00); Lymphocytes % (A) 19.2 %; MCH 27.1 pg (27.0-32.0); MCHC 32.5 g/dL (32.0-37.0); MCV 83.6 fL (80.0-97.0); Mean Platelet Volume 12.1 fL (9.5-12.2); Monocytes % (A) 10.9 %; Neutrophils # (A) 3.12 10*3/uL (1.80-7.70); Neutrophils % (A) 67.9 %; Platelet Count 115 10*3/uL (140-440); RBC 5.12 10*6/uL (4.40-5.60); WBC 4.59 10*3/uL (4.50-10.00)
--- NOTE | 2025-02-05 14:21 | XR ---
EXAMINATION TYPE: XR chest 2V DATE OF EXAM: 02/05/2025 CLINICAL INDICATION: Male, 69 years old with history of dyspnea, TECHNIQUE: Frontal and lateral views of the chest are obtained. COMPARISON: Chest x-ray December 29, 2024 FINDINGS: There is moderate-sized right-sided pleural effusion redemonstrated. Associated right bas ilar opacity again seen. Left lung remains clear. The cardiac silhouette size is mildly enlarged. Ov erlying sternal wires and mediastinal clips are redemonstrated. The osseous structures are intact. IMPRESSION: Persistent moderate size right pleural effusion and associated right basilar opacity favo ring compressive atelectasis. [facility], , 02/05/2025 2:19 PM
[2025-02-05 14:23] LABS: ALT 16 U/L (4-49); AST 25 U/L (17-59); African American GFR (CKD) 90 (>60 ml/min/1.73 sqM); Alkaline Phosphatase 130 U/L (38-126); Anion Gap 8 mmol/L; Blood Urea Nitrogen 18 mg/dL (9-20); Calcium 9.5 mg/dL (8.4-10.2); Carbon Dioxide 27 mmol/L (22-30); Chloride 104 mmol/L (98-107); Glucose 92 mg/dL (74-99); Non-African American GFR(CKD) 78 (>60 ml/min/1.73 sqM); Potassium 4.4 mmol/L (3.5-5.1); Sodium 139 mmol/L (137-145); Total Bilirubin 0.8 mg/dL (0.2-1.3); Total Protein 7.3 g/dL (6.3-8.2)
[2025-02-05 14:31] LABS: NT-Pro-B-Type Natriuretic Pept 1670 pg/mL
[2025-02-05] MEDS ORDERED: NALOXONE 0.4 MG/ML 1 ML VIAL IV PRN (14:41)
[2025-02-05 14:42] LABS: Partial Thromboplastin Time 24.4 sec (22.0-30.0); Prothrombin Time 10.7 sec (10.0-12.5)
[2025-02-05 14:44] LABS: Influenza A Not Detected (Not Detectd); Influenza B Not Detected (Not Detectd); RSV Not Detected (Not Detectd)
[2025-02-05] MEDS: FUROSEMIDE 10 MG/ML 4 ML VIAL IV STA (15:33)
[2025-02-05] MEDS: SODIUM CHLORIDE 0.9% 1,000 ML IV SCH (15:34)
--- NOTE | 2025-02-05 17:25 | P.CNPUL ---
History of Present Illness Consult date: 02/05/25 Requesting physician: Alexx Gee Reason for consult: dyspnea, chest pain, pleural effusion, abnormal CXR/CT Chief complaint: Shortness of breath, right sided chest pain History of present illness: This is a 69-year-old male with a past medical history significant for coronary artery disease status post PCI/stenting and CABG. His original CABG was over 20 years ago, more recently had a two-vessel redo off-pump CABG April,, severe ischemic cardiomyopathy with ejection fraction of 20 to 25%, hypertension, hyperlipidemia, atrial fibrillation anticoagulated with Eliquis, left carotid artery stenosis, chronic oxygen dependence on 4 L/min nasal cannula while at home, COPD, former tobacco dependence. He is known to have recurrent right- sided pleural effusions requiring multiple previous thoracentesis. Most recent thoracentesis was performed on December 08, 2024 with 1.5 L of fluid removed. Cytology negative for malignancy. Send here to the emergency room today with complaints of increasing shortness of breath and right sided chest discomfort. X-ray reveals persistent moderate size right pleural effusion with associated right basilar opacity favoring compressive atelectasis. White count 4.5. Hemoglobin 13.9. Platelets 115. INR 1.0. Sodium 139. Potassium 4.4. Bicarb 27. BUN 18. Creatinine 1.0. Troponin negative x 1. proBNP 1670. Viral screen negative. He is seen in the emergency department in consultation. Awake and alert in no acute distress. Currently resting on a stretcher. Dyspneic with conversation. Dyspneic with minimal exertion. Complaining of right sided chest discomfort. Currently maintaining O2 saturations in the mid 90s on room a ir. He is afebrile. Hemodynamically stable. Review of Systems REVIEW OF SYSTEMS: CONSTITUTIONAL: Denies any recent significant weight loss or weight gain. EYES: Denies change in vision. EARS, NOSE, MOUTH, THROAT: Denies headaches, denies sore throat. CARDIOVASCULAR: Positive for right sided chest pain, no palpitations or syncopal episodes. RESPIRATORY: Positive for shortness of breath, cough, congestion no hemoptysis. GASTROINTESTINAL: Denies change in appetite, denies abdominal pain GENITOURINARY: Denies hematuria, denies infections. MUSKULOSKELETAL: Denies pain, denies swelling. INTEGUMENTARY: Denies rash, denies eczema. NEUROLOGICAL: Denies recent memory loss, no recent seizure activity. PSYCHIATRIC: Denies anxiety, denies depression. HEMATOLOGIC/LYMPHATIC: Denies anemia, denies enlarged lymph nodes. Past Medical History Past Medical History: Coronary Artery Disease (CAD), Chest Pain / Angina, Heart Failure, COPD, GERD/Reflux, Hyperlipidemia, Hypertension, Myocardial Infarction (NC), Osteoarthritis (OA), Sleep Apnea/CPAP/BIPAP Additional Past Medical History / Comment(s): Chronic back pain, left leg weakness. 4LNC. States unsure about having had a heart attack. Last Myocardial Infarction Date:: 11/11/22 History of Any Multi-Drug Resistant Organisms: None Reported Past Surgical History: Back Surgery, Cholecystectomy, Coronary Bypass/CABG, Heart Catheterization With Stent Additional Past Surgical History / Comment(s): Back surgery X2 with cage, left tennis elbow surgery, heart stents X7, colonoscopy. emergency CABG [facility], thrombectomy. April Past Anesthesia/Blood Transfusion Reactions: No Reported Reaction Additional Past Anesthesia/Blood Transfusion Reaction / Comment(s): Pt received blood during CABG without reaction. Date of Last Stent Placement:: Oct 2022 Past Psychological History: Anxiety, Depression, PTSD Smoking Status: Former smoker, Vaper Past Alcohol Use History: None Reported Past Drug Use History: None Reported - Past Family History Father Family Medical History: Coronary Artery Disease (CAD), Deep Vein Thrombosis (DVT), GERD/Reflux, Hyperlipidemia, Myocardial Infarction (NC) Additional Family Medical History / Comment(s): Father of a NC in his 80's. Mother Family Medical History: Coronary Artery Disease (CAD), Myocardial Infarction (NC) Additional Family Medical History / Comment(s): Mother of a NC. Brother(s) Family Medical History: Myocardial Infarction (NC) Additional Family Medical History / Comment(s): . Sister(s) Family Medical History: Cancer, Diabetes Mellitus Additional Family Medical History / Comment(s): Lung cancer. Other sister had Diabetes. Medications and Allergies Home Medications Medication Instructions Recorded Confirmed Type ALPRAZolam [Xanax] 2 mg PO TID PRN 07/27/24 02/05/25 History Aspirin EC [Ecotrin Low Dose] 81 mg PO DAILY 09/05/24 02/05/25 History Apixaban [Eliquis] 2.5 mg PO BID 12/07/24 02/05/25 History carvediloL [Coreg] 3.125 mg PO DAILY 12/07/24 02/05/25 History Albuterol Sulfate [Albuterol 2 puff INHALATION RT-QID PRN 12/17/24 02/05/25 History Sulfate Hfa] Gabapentin [Neurontin] 100 mg PO BID 12/17/24 02/05/25 History Spironolactone [Aldactone] 12.5 mg PO DAILY #30 tab 12/19/24 02/05/25 Rx Sacubitril/Valsartan [Entresto 24 1 tab PO BID 12/29/24 02/05/25 History mg-26 mg Tablet] Atorvastatin [Lipitor] 40 mg PO HS 02/05/25 02/05/25 History Folic Acid 1 mg PO DAILY 02/05/25 02/05/25 History Sodium Bicarbonate Tab 650 mg PO TID 02/05/25 02/05/25 History oxyCODONE HCL/ACETAMINOPHEN 1 tab PO Q6HR PRN 3 Days #12 tab 02/05/25 02/05/25 Rx [Percocet 5-325 mg] Allergies Allergy/AdvReac Type Severity Reaction Status Date / Time latex Allergy Swelling Verified 02/05/25 16:00 atorvastatin [From Lipitor] AdvReac JOINT PAIN Verified 02/05/25 16:00 Physical Exam Vitals: Vital Signs Temp Pulse Resp BP Pulse Ox 02/05/25 15:56 73 19 103/63 95 02/05/25 15:32 72 20 122/62 95 02/05/25 14:30 70 20 99/50 94 L 02/05/25 13:27 97.8 F 70 20 133/67 97 Intake and Output 02/05/25 02/05/25 02/05/25 06:59 14:59 22:59 Output Total 200 Balance -200 Output: Urine 200 Other: Weight 99.79 kg GENERAL EXAM: Alert, pleasant 69-year-old male, on room air oxygen, fairly comfortable in no apparent distress. HEAD: Normocephalic. EYES: Normal reaction of pupils, equal size. NOSE: Clear with pink turbinates. THROAT: No erythema or exudates. NECK: No masses, no JVD. CHEST: No chest wall deformity. LUNGS: Equal air entry with crackles in the right lung base, dullness. CVS: S1 and S2 normal with no audible murmur, regular rhythm. ABDOMEN: No hepatosplenomegaly, normal bowel sounds, no guarding or rigidity. SPINE: No scoliosis or deformity SKIN: No rashes CENTRAL NERVOUS SYSTEM: No focal deficits, tone is normal in all 4 extremities. EXTREMITIES: There is no peripheral edema. No clubbing, no cyanosis. Peripheral pulses are intact. Results - Laboratory Findings CBC and BMP: 02/05/25 14:02 02/05/25 14:02 PT/INR, D-dimer PT 10.7 sec (10.0-12.5) 02/05/25 14:02 INR 1.0 (<1.2) 02/05/25 14:02 Abnormal lab findings: Abnormal Labs 02/05/25 02/05/25 14:02 14:02 Plt Count 115 L Lymphocytes # 0.88 L Alkaline Phosphatase 130 H - Diagnostic Findings Chest x-ray: image reviewed Assessment and Plan Assessment: Dyspnea secondary to recurrent right sided pleural effusion. Previous fluid analysis on December 08, 2024 was transudate Recurrent moderate right-sided pleural effusions. Drained last on December 08, 2024 with 1.5 L removed. Fluid cytology negative for malignancy Coronary artery disease, with previous PCI/stenting and CABG over 20 years ago, subsequent two-vessel redo off-pump CABG April, Ischemic cardiomyopathy, echocardiogram from August, revealed a severely reduced left ventricular ejection fraction of 20 to 25%, as well as, moderate to severe mitral regurgitation Paroxysmal atrial fibrillation, currently sinus mechanism, anticoagulated on Eliquis Hypertension Hyperlipidemia Left internal carotid artery stenosis, 50-79% Chronic anemia Former tobacco dependence Severe COPD , FEV1 43% of predicted Chronic hypoxemic respiratory failure, normally maintained on 4 L/min nasal cannula Obstructive sleep apnea Chronic back pain with history of back surgery Plan: The patient was seen and evaluated Chest x-ray, labs and medications reviewed Received Lasix 40 mg IVP x 1 Will obtain an ultrasound of the right chest If enough free-flowing fluid will plan on thoracentesis Eliquis will need to be placed on hold Currently stable and on room air Resume his home medications We will continue to follow and make further recommendations based on his clinical status I have personally seen and examined the patient, performed the documentation and the assessment and plan as written. Number of minutes spent on the visit: 20 Dictation was produced using [employer] dictation software. Please excuse any grammatical, word or spelling errors. Time with Patient: Greater than 30
--- NOTE | 2025-02-05 17:38 | US ---
EXAMINATION TYPE: US chest DATE OF EXAM: 02/05/2025 COMPARISON: XR 02/05/25 CLINICAL INDICATION: Male, 69 years old with history of Right pleural effusion; right pleural effusio n TECHNIQUE: Grayscale imaging of the chest. Targeted ultrasound of the posterior lower right hemithor ax FINDINGS: EXAM MEASUREMENTS: patient scanned in lld position due to pt unable to sit up and lean forward Right Pleural Effusion pocket size: 8.5 cm Right skin surface to fluid distance: 4.0 cm fluid to lung tissue: 5.4cm Right side marked for possible thoracentesis outside the dept. Pulmonologists are able to review the images in the patient?s EMR. IMPRESSIONS: Moderate pleural effusion. [facility], , 02/05/2025 5:35 PM
[2025-02-05] MEDS: oxyCODONE-APAP 5-325MG 1 EACH TAB PO PRN (17:51)
[2025-02-05] MEDS: SACUBITRIL/VALSARTAN 24 MG-26 MG TABLET PO SCH (20:58)
[2025-02-05] MEDS: GABAPENTIN 100 MG CAP PO SCH (20:58)
[2025-02-05] MEDS: SODIUM BICARBONATE TAB 650 MG TAB PO SCH (20:58)
[2025-02-05] MEDS: ATORVASTATIN 40 MG TAB PO SCH (20:58)
[2025-02-05] MEDS ORDERED: APIXABAN 2.5 MG TABLET PO SCH (21:00)
[2025-02-05] MEDS: ALPRAZolam 1 MG TAB PO PRN (21:02)
[2025-02-06 01:34] VITALS: RESP 16
--- NOTE | 2025-02-06 08:35 | XR ---
EXAMINATION TYPE: XR chest 1V portable DATE OF EXAM: 02/06/2025 CLINICAL INDICATION: Male, 69 years old with history of Post right thoracentesis, progress study. TECHNIQUE: Single AP portable upright view of the chest is obtained. COMPARISON: Chest x-ray from one day earlier and older studies. FINDINGS: Persistent small to moderate-sized right-sided pleural effusion after thoracentesis. Persi stent right basilar opacity favoring associated compressive atelectasis. No pneumothorax is seen. Lef t lung remains clear. Overlying sternal wires are redemonstrated. Persistent mild cardiomegaly and mi ld central vascular congestion. IMPRESSION: No pneumothorax after right-sided thoracentesis. [facility], , 02/06/2025 8:33 AM
--- NOTE | 2025-02-06 08:39 | HP ---
HISTORY AND PHYSICAL CHIEF COMPLAINT: Shortness of breath and back pain. HISTORY OF PRESENT ILLNESS: This is another of many admissions for this 69-year-old gentleman who has a longstanding history of severe, end-stage CAD. He has had 2 CABGs as well as several stents. He has been struggling lately with progressive heart failure and recurrent right pleural effusions. He came on the day of admission with increasing shortness of breath and right chest pain, and the effusion was larger. Past medical history, family history, and personal and social histories are unchanged. PHYSICAL EXAMINATION: VITAL SIGNS: Blood pressure is 108/75 with a pulse of 76 and irregular, respirations were 38. GENERAL: He appeared to be chronically ill. He was pale. He was short of breath. HEAD, EARS, EYES, NOSE, MOUTH, AND THROAT: Normal. NECK: Veins were distended. CHEST: Demonstrated poor breath sounds on the right, and there were rales on the left. CARDIAC: Normal. ABDOMEN: Soft, nontender. EXTREMITIES: Normal. IMPRESSION: 1. Acute on chronic congestive heart failure. 2. Increased right pleural effusion. 3. Coronary artery disease. 4. Atherosclerotic cardiomyopathy. 5. Lumbosacral spine arthritis. 6. Chronic obstructive pulmonary disease. PLAN: 1. Bedrest. 2. IV fluids. 3. Consult with Interventional Radiology. MMODL / IJN: [id number] /
[2025-02-06] MEDS: carvediloL 3.125 MG TAB PO SCH (08:55)
[2025-02-06] MEDS: ASPIRIN 81 MG PO SCH (08:55)
[2025-02-06] MEDS: SPIRONOLACTONE 25 MG TAB PO SCH (08:56)
[2025-02-06] MEDS: FOLIC ACID 1 MG TAB PO SCH (08:56)
[2025-02-06 10:44] VITALS: TEMP 98.7
[2025-02-06 11:24] VITALS: BP 97/61; PULSE 64
--- NOTE | 2025-02-06 12:39 | P.PN ---
Subjective Progress Note Date: 02/06/25 This is a 69-year-old male with a past medical history significant for coronary artery disease status post PCI/stenting and CABG. His original CABG was over 20 years ago, more recently had a two-vessel redo off-pump CABG April,, severe ischemic cardiomyopathy with ejection fraction of 20 to 25%, hypertension, hyperlipidemia, atrial fibrillation anticoagulated with Eliquis, left carotid artery stenosis, chronic oxygen dependence on 4 L/min nasal cannula while at home, COPD, former tobacco dependence. He is known to have recurrent right- sided pleural effusions requiring multiple previous thoracentesis. Most recent thoracentesis was performed on December 08, 2024 with 1.5 L of fluid removed. C ytology negative for malignancy. Send here to the emergency room today with complaints of increasing shortness of breath and right sided chest discomfort. X-ray reveals persistent moderate size right pleural effusion with associated right basilar opacity favoring compressive atelectasis. White count 4.5. Hemoglobin 13.9. Platelets 115. INR 1.0. Sodium 139. Potassium 4.4. Bicarb 27. BUN 18. Creatinine 1.0. Troponin negative x 1. proBNP 1670. Viral screen negative. He is seen in the emergency department in consultation. Awake and alert in no acute distress. Currently resting on a stretcher. Dyspneic with conversation. Dyspneic with minimal exertion. Complaining of right sided chest discomfort. Currently maintaining O2 saturations in the mid 90s on room air. He is afebrile. Hemodynamically stable. The patient is seen today February 06, 2025 in follow-up on the regular medical floor. He is currently sitting up in bed. Awake and alert in no acute distress. Maintaining O2 saturations in the 90s on room air. He is still having some dyspnea on exertion. He is still having some slight right sided chest discomfort. He did undergo a right sided thoracentesis today with Dr. Merritt. 250 mL of turbulent yellow fluid was removed. Fluid analysis, cultures and cytology pending. Follow-up chest x-ray reveals no evidence of pneumothorax post thoracentesis. Persistent small to moderate right sided pleural effusion remains. No new labs today. His Eliquis can be resumed. Normal saline at 20 mL/h. Objective - Vital Signs Vital signs: Vital Signs Temp 98.7 F 02/06/25 11:21 Pulse 64 02/06/25 11:21 Resp 16 02/06/25 11:21 BP 97/61 02/06/25 11:21 Pulse Ox 98 02/06/25 11:21 FiO2 Intake & Output 02/05/25 02/06/25 02/06/25 18:59 06:59 18:59 Intake Total 780 Output Total 200 Balance -200 780 Weight 99.79 kg Intake: Oral 780 Output: Urine 200 Other: Voiding Method Toilet Toilet # Voids 3 3 # Bowel Movements 0 1 - Exam GENERAL EXAM: Alert, very pleasant 69-year-old male, on room air oxygen, in no apparent distress. HEAD: Normocephalic. EYES: Normal reaction of pupils, equal size. NOSE: Clear with pink turbinates. THROAT: No erythema or exudates. NECK: No masses, no JVD. CHEST: No chest wall deformity. LUNGS: Equal air entry with crackles in the right lung base, dullness. CVS: S1 and S2 normal with no audible murmur, regular rhythm. ABDOMEN: No hepatosplenomegaly, normal bowel sounds, no guarding or rigidity. SPINE: No scoliosis or deformity SKIN: No rashes CENTRAL NERVOUS SYSTEM: No focal deficits, tone is normal in all 4 extremities. EXTREMITIES: There is no peripheral edema. No clubbing, no cyanosis. Peripheral pulses are intact. - Labs CBC & Chem 7: 02/05/25 14:02 02/05/25 14:02 Labs: Abnormal Lab Results - Last 24 Hours (Table) 02/05/25 02/05/25 Range/Units 14:02 14:02 Plt Count 115 L (140-440) 10*3/uL Lymphocytes # 0.88 L (0.90-5.00) 10*3/uL Alkaline Phosphatase 130 H (38-126) U/L Assessment and Plan Assessment: Dyspnea secondary to recurrent right sided pleural effusion. Recurrent moderate right-sided pleural effusions. Right sided thoracentesis performed today 02/06/2025 with 250 mL of turbulent yellow fluid returned. Drained last on December 08, 2024 with 1.5 L removed. Fluid cytology negative for malignancy Coronary artery disease, with previous PCI/stenting and CABG over 20 years ago, subsequent two-vessel redo off-pump CABG April, Ischemic cardiomyopathy, echocardiogram from August, revealed a severely reduced left ventricular ejection fraction of 20 to 25%, as well as, moderate to severe mitral regurgitation Paroxysmal atrial fibrillation, currently sinus mechanism, anticoagulated on Eliquis Hypertension Hyperlipidemia Left internal carotid artery stenosis, 50-79% Chronic anemia Former tobacco dependence Severe COPD , FEV1 43% of predicted Chronic hypoxemic respiratory failure, normally maintained on 4 L/min nasal cannula Obstructive sleep apnea Chronic back pain with history of back surgery Plan: The patient was seen and evaluated Chest x-ray, labs and medications reviewed Ultrasound of the chest reviewed Right sided thoracentesis performed today 250 mL of turbulent yellow fluid removed Fluid analysis, cultures and cytology pending Eliquis can be resumed Currently stable and on room air Cleared for discharge Follow-up in our office in 1 week I have personally seen and examined the patient, performed the documentation and the assessment and plan as written. Number of minutes spent on the visit: 10 Dictation was produced using [employer] dictation software. Please excuse any grammatical, word or spelling errors.
--- NOTE | 2025-02-06 13:47 | OP ---
OPERATIVE REPORT DATE OF SERVICE : PROCEDURE PERFORMED: Right-sided thoracentesis. PREOPERATIVE DIAGNOSIS: Right pleural effusion. POSTOPERATIVE DIAGNOSIS: Right pleural effusion. ANESTHESIA USED: 3 mL of 1% lidocaine. DESCRIPTION OF PROCEDURE: The patient was placed in the sitting upright position, the area below the scapula was prepared in a sterile fashion and drapes were applied, the marking was placed earlier by fire protection equipment technician at the level of the posterior axillary line and 7th or 8th intercostal space. Again, after preparing the area in a sterile fashion, drapes were applied, the area was locally anesthetized with lidocaine, and a small tiny incision was made. Tried to localize fluid with a small needle, apparently the needle was too short to reach the area of the fluid, then, a small tiny incision was made and a thoracentesis catheter and needle were used, advanced at the same site into the pleural space, and as soon as the fluid was obtained, the catheter was advanced over the needle into the pleural space. Fluid was obtained; however, the fluid was noted to be thick, slightly serosanguineous, obtained 250 mL total of fluid and normal fluid could be obtained beyond that. Fluid was sent for different diagnostic studies, chest x-ray showed no complications. Based on the results of the fluids, further recommendations to follow. Again, procedure was well tolerated, no complications. MMODL / IJN: [id number] /
--- NOTE | 2025-02-06 14:15 | DS ---
DISCHARGE SUMMARY CHIEF COMPLAINT: Shortness of breath, congestive heart failure and right pleural effusion. HISTORY OF PRESENT ILLNESS AND PHYSICAL EXAMINATION: Details of this man's history and physical can be found in the initial workup. LABORATORY STUDIES: While he was in the hospital, he had laboratory studies, details of which can be found in the laboratory section of his chart. COURSE IN THE HOSPITAL: After admission, he was placed on bedrest, started on intravenous fluids, and was seen by Interventional Radiology. The morning after admission, he had a thoracentesis to drain the right pleural effusion and he was up and about, feeling well. It was felt that he could go home. He will go home on his usual activity, diet, medication and will follow up in the office in a few days. FINAL DIAGNOSES: 1. Shortness of breath. 2. Acute on chronic congestive heart failure with reduced ejection fraction. 3. Right pleural effusion. 4. Chronic obstructive pulmonary disease. OPERATIONS: Thoracentesis. CONSULTATION: Interventional Radiology. REYNALDO / CALLI: [id number] /
[2025-02-06 16:39] LABS: Appearance,BF Hazy (Clear)
[2025-02-06 18:38] LABS: Glucose, BF Source Pleural Fluid; Glucose, Body Fluid 89 mg/dL; LDH, Body Fluid Source Pleural Fluid; T. Protein, Body Fluid Source Pleural Fluid; Total Protein, Body Fluid >3600 mg/dL
== END 2025-02-06 11:58 | disposition home or self-care (01) ==
LOC: EC 13:06 → 5NMEDONC 14:42
PROVIDERS: ADMIT Family Medicine; ATTEND Family Medicine
DX: I11.0 Hypertensive heart disease with heart failure (principal); I50.23 Acute on chronic systolic (congestive) heart failure; J44.9 Chronic obstructive pulmonary disease, unspecified; J96.11 Chronic respiratory failure with hypoxia; D64.9 Anemia, unspecified; E78.5 Hyperlipidemia, unspecified; G47.33 Obstructive sleep apnea (adult) (pediatric); G89.29 Other chronic pain; I25.10 Atherosclerotic heart disease of native coronary artery without angina pectoris; I25.2 Old myocardial infarction; I25.5 Ischemic cardiomyopathy; I34.0 Nonrheumatic mitral (valve) insufficiency; I48.0 Paroxysmal atrial fibrillation; I65.22 Occlusion and stenosis of left carotid artery; F41.9 Anxiety disorder, unspecified; M47.817 Spondylosis without myelopathy or radiculopathy, lumbosacral region; Z79.01 Long term (current) use of anticoagulants; Z79.82 Long term (current) use of aspirin; Z79.84 Long term (current) use of oral hypoglycemic drugs; Z79.899 Other long term (current) drug therapy; Z87.891 Personal history of nicotine dependence; Z95.1 Presence of aortocoronary bypass graft; Z95.5 Presence of coronary angioplasty implant and graft; Z99.81 Dependence on supplemental oxygen; Z80.1 Family history of malignant neoplasm of trachea, bronchus and lung; Z88.8 Allergy status to other drugs, medicaments and biological substances; Z91.040 Latex allergy status
CPT/HCPCS: 96374; 99285; 36415; 93005; 88108; 88305; 83880; 80053; 89050; 84484; 85025; 85610; 85730; 87070; 87205; 87116; 87102; 87206; 82945; 83615; 84157; 87636; 71045; 71046; 76604; 32555; G0378 ×2; J1940

== ENCOUNTER → 2025-02-05 | Outpatient (CLI) | payer MEDICARE, OTHER ==
[2025-02-05 11:29] VITALS: BP 120/72; PULSE 78; RESP 16
--- NOTE | 2025-02-05 15:10 | P.PAINPG ---
Objective - Vital Signs Vital signs: Vital Signs Temp Pulse 78 02/05/25 11:27 Resp 16 02/05/25 11:27 BP 120/72 02/05/25 11:27 Pulse Ox 97 02/05/25 11:27 FiO2 PQRS Measure Charge Sheet Comment: HISTORY OF PRESENT ILLNESS: A 69 yr old male w at side presents today w severe and chronic LBP > 3 mo secondary to L5-S1 Fusion x2 w CAGE for evaluation. Pt states pain level is provoked at 8 /10 in intensity, constant, localized in the lumbar spine, predominantly axial, achy in character w occasional shooting pain towards the LLE. Pain is provoked by walking for periods > 30 min. Pain is alleviated by manual massage, heat, ice, medications (Bosler, Tyl), topical Icy-Hot, repositioning and rest . Interventional procedures include L5-S1 Fusion x2 w CAGE Medications include Neurontin, ETOH abuse, Hx of Cocaine Abuse REVIEW OF ORGAN SYSTEMS: CONSTITUTIONAL: No fevers or chills. No recent weight loss. NEUROLOGICAL: + numbness and tingling along the distal extremities. No seizure disorders or headaches. MUSCULOSKELETAL: + pain PSYCHIATRIC: Denies current depression or suicidal thoughts. Physical Examinations : Constitutional : Cooperative , not in acute distress . Neurologic : Cranial nerve II to XII intact. No focal neurological deficits. Psychiatric : alert & oriented x 3. Matching mood & appropriate affect. Judgment & insight intact. Musculoskeletal : Cervical Spine Motor strength in the deltoid and biceps: Normal right side. Normal Left side Motor strength biceps and the wrist extensors: Normal right side . Normal left side Motor strength in the triceps muscle: Normal right side. Normal left side Deep tendon reflexes: Normal at the biceps. Normal at Brachioradialis. Normal at triceps Vertebral body tenderness to deep palpation over Cervical facet loading test: positive bilaterally Spurling test: positive bilaterally Neck distraction test: positive bilaterally Nilda sign: positive bilaterally Lumbar spine Motor strength lower extremities ,thigh and legs 5/5 Right side , 5/5 Left side Deep tendon reflexes : Normal Knee Jerk. Normal Ankle Jerk Vertebral body tenderness over L5 Alexis Test positive L5-S1 BL Lumbar facet Loading Test: positive Right / positive Left Range of motion of the lumbar spine Flexion 30 degrees, extension 10 degrees Straight Leg Raise test: Left/ Right positive at degrees Michel test: positive right / positive left. Severe tenderness over the Sacroiliac joint on the Right / Left sides Gaenslen test: positive bilaterally Seated flexion test: positive bilaterally. Sacral spine : Severe tenderness over the Sacroiliac joint: right side / left side Range of motion: Flexion of the lumbar spine <60 degrees Range of motion: Extension of the lumbar spine <20 degrees Gaenslen's Test positive Michel test: positive right side / left side Thigh Thrust Test Sacral Thrust Test Imaging: Lumbar x- ray from Dr Gee's office from 08/01/24 reviewed MRI non contrast lumbar spine from 08/06/2019 reviewed Assessment/ Plan : L5-S1 posterior fusion Recommendation of L TFESI L4-L5/ L5-S1 #1. Risks, benefits of procedure discussed and patient verbalized understanding. Protocol for discontinuation/continuation of medication surrounding procedure discussed. All questions answered. I have spent greater than 30 minutes on patient care today. Dr Ramirez was available by phone for the evaluation of this patient. The time was used to review the medical records including relevant urine studies and Prescription history (MAPs), review of the available imaging, evaluation and examination of the patient, coordination of care with the medical staff and if applicable ref erring physicians, as well as creation of the medical record - Pain Location Bilateral Lower Back Non-Pharmacological Interventions: Heat, Inactivity, Physical Therapy, Position/Reposition, Sitting Pharmacological Interventions: PRN Medication, Topical Medication PQRS Narrative: Smoking Status Current every day smoker Blood Pressure 120/72 Pain Intensity [Bilateral 9 Lower Back] Scale Used Numeric (1 - 10) Hx Alcohol Use (MH) No Home Medications: Ambulatory Orders ALPRAZolam [Xanax] 2 mg PO TID PRN 07/27/24 Aspirin EC [Ecotrin Low Dose] 81 mg PO DAILY 09/05/24 Apixaban [Eliquis] 2.5 mg PO BID 12/07/24 carvediloL [Coreg] 3.125 mg PO BID 12/07/24 haloperidoL [Haldol] 0.5 mg PO BID 12/07/24 Albuterol Sulfate [Albuterol Sulfate Hfa] 2 puff INHALATION RT-QID PRN 12/17/24 Furosemide [Lasix] 40 mg PO DAILY 12/17/24 Gabapentin [Neurontin] 100 mg PO TID 12/17/24 Atorvastatin [Lipitor] 80 mg PO HS #30 tab 02/20/25 Dapagliflozin Propanediol [Farxiga] 10 mg PO DAILY #30 tab 12/19/24 Spironolactone [Aldactone] 12.5 mg PO DAILY #30 tab 12/19/24 Sacubitril/Valsartan [Entresto 24 mg-26 mg Tablet] 1 tab PO BID 12/29/24 Controlled Substance Measures - Controlled Substance Measures Is patient prescribed a controlled substance at discharge?: Yes When asked, does pt state using other controlled substances?: Yes If prescribed controlled substance>3 days was MAPS reviewed?: Prescribed <3 Days
== END ==
LOC: PNWHC3 11:13
PROVIDERS: ATTEND Specialist
DX: M43.27 Fusion of spine, lumbosacral region (principal); F17.200 Nicotine dependence, unspecified, uncomplicated; Z91.040 Latex allergy status; Z91.048 Other nonmedicinal substance allergy status
CPT/HCPCS: 99211

== ENCOUNTER 2025-02-16 21:59 | Observation (INO) | payer MEDICARE, OTHER ==
--- NOTE | 2025-02-16 23:16 | XR ---
EXAMINATION TYPE: XR chest 2V DATE OF EXAM: 02/16/2025 11:08 PM COMPARISON: Multiple radiographs, with the most recent on 02/06/2025. TECHNIQUE: XR chest 2V Frontal and lateral views of the chest. CLINICAL INDICATION:Male, 69 years old with history of Chest Pain; FINDINGS: Lungs/Pleura: No pneumothorax. The left lung is clear. Similar moderate size right pleural effusion w ith adjacent airspace opacities. Pulmonary vascularity: Mild pulmonary vascular congestion. Heart/mediastinum: Cardiomediastinal silhouette is enlarged and stable. Musculoskeletal: No acute osseous pathology. Midline sternotomy wires are noted and stable. IMPRESSION: Similar moderate size right pleural effusion with adjacent airspace opacity represent atelectasis. Ca rdiomegaly mild pulmonary vascular congestion redemonstrated. Correlate for possible CHF exacerbation . [facility], , 02/16/2025 11:14 PM
[2025-02-16 23:42] LABS: Basophils # (A) 0.04 10*3/uL (0.00-0.10); Basophils % (A) 0.8 %; Eosinophils # (A) 0.12 10*3/uL (0.04-0.35); Eosinophils % (A) 2.4 %; HCT 42.7 % (39.6-50.0); HGB 13.5 g/dL (13.0-17.0); Lymphocytes # (A) 0.92 10*3/uL (0.90-5.00); Lymphocytes % (A) 18.1 %; MCH 26.7 pg (27.0-32.0); MCHC 31.6 g/dL (32.0-37.0); MCV 84.6 fL (80.0-97.0); Mean Platelet Volume 12.7 fL (9.5-12.2); Monocytes # (A) 0.61 10*3/uL (0.20-1.00); Neutrophils # (A) 3.39 10*3/uL (1.80-7.70); Neutrophils % (A) 66.5 %; Platelet Count 141 10*3/uL (140-440); RBC 5.05 10*6/uL (4.40-5.60); RDW 16.7 % (11.5-14.5); WBC 5.09 10*3/uL (4.50-10.00)
[2025-02-16 23:55] LABS: ALT 18 U/L (4-49); AST 33 U/L (17-59); African American GFR (CKD) >90 (>60 ml/min/1.73 sqM); Alkaline Phosphatase 141 U/L (38-126); Anion Gap 7 mmol/L; Blood Urea Nitrogen 16 mg/dL (9-20); Carbon Dioxide 24 mmol/L (22-30); Chloride 104 mmol/L (98-107); Glucose 93 mg/dL (74-99); Lipase 83 U/L (23-300); Magnesium 1.8 mg/dL (1.6-2.3); Non-African American GFR(CKD) 90 (>60 ml/min/1.73 sqM); Potassium 4.5 mmol/L (3.5-5.1); Sodium 135 mmol/L (137-145); Total Protein 7.2 g/dL (6.3-8.2)
[2025-02-17 00:04] LABS: NT-Pro-B-Type Natriuretic Pept 2390 pg/mL
[2025-02-17 00:06] LABS: Prothrombin Time 10.7 sec (10.0-12.5)
[2025-02-17] MEDS: ALBUTEROL NEBULIZED 2.5 MG/3 ML INHALATION SCH (00:12)
[2025-02-17] MEDS: IPRATROPIUM 0.5 MG/2.5 ML NEBU INHALATION STA ×2 (00:12→00:50)
[2025-02-17] MEDS: SODIUM CHLORIDE 0.9% 1,000 ML IV ONE (00:46)
[2025-02-17] MEDS: ONDANSETRON 4 MG/2 ML VIAL IVP STA ×2 (00:48→06:36)
[2025-02-17] MEDS: MORPHINE SULFATE 4 MG/ML SYRINGE IVP STA ×2 (00:50→06:35)
[2025-02-17] MEDS: methylPREDNISolone SOD SUCCI 125 MG/2 ML VIAL IV STA (00:52)
--- NOTE | 2025-02-17 01:51 | CT ---
EXAM: CT Angiography Chest With Intravenous Contrast CLINICAL HISTORY: ITS.REASON CT Reason: Shortness of breath TECHNIQUE: Axial computed tomographic angiography images of the chest with intravenous contrast. CTDI is 14.5 mGy and DLP is 592.1 mGy-cm. This CT exam was performed using one or more of the following dose reduction techniques: automated exposure control, adjustment of the mA and/or kV according to patient size, and/or use of iterative reconstruction technique. MIP reconstructed images were created and reviewed. COMPARISON: No relevant prior studies available. FINDINGS: Pulmonary arteries: Unremarkable. No pulmonary embolism. Aorta: No acute findings. No thoracic aortic aneurysm. Lungs: See below. Pleural space: Small RIGHT pleural effusion. Airspace consolidation of the RIGHT lung base, consistent with pneumonia. Superimposed aspiration not excluded. Heart: Cardiomegaly. No significant pericardial effusion. No evidence of RV dysfunction. Bones/joints: Sternotomy wires. No acute fracture. No dislocation. Soft tissues: Unremarkable. Lymph nodes: Unremarkable. No enlarged lymph nodes. Liver: Mild hepatic cirrhosis. Splenomegaly. Gallbladder and bile ducts: Cholecystectomy. IMPRESSION: 1. No pulmonary embolism. 2. Small RIGHT pleural effusion. Airspace consolidation of the RIGHT lung base, consistent with pneumonia. Superimposed aspiration not excluded. 3. Mild hepatic cirrhosis. Splenomegaly.
[2025-02-17] MEDS: AZITHROMYCIN 500 MG in SODIUM CHLORIDE 0.9% 250 ML IVPB STA (03:11)
[2025-02-17] MEDS ORDERED: IPRATROPIUM-ALBUTEROL 3 ML NEB INHALATION PRN (04:53)
[2025-02-17] MEDS ORDERED: ACETAMINOPHEN TAB 325 MG TAB PO PRN (04:53)
[2025-02-17] MEDS ORDERED: PNEUMONIA PROTOCOL UTILIZED 1 EACH MISC PO PRN (04:53)
--- NOTE | 2025-02-17 05:04 | ED ---
General Adult HPI - General Chief complaint: Shortness of Breath Stated complaint: SOB, dizziness Time Seen by Provider: 02/16/25 22:26 Source: patient Mode of arrival: wheelchair Limitations: no limitations - History of Present Illness Initial comments: Patient is a 69-year-old male with complex past medical historyCAD, COPD, CAD, hypertension hyperlipidemia, CHF presenting today for shortness of breath. States ongoing for about 3 days. Endorses a cough productive of thick sputum. Wears oxygen as needed but has been using 3 L oxygen more consistently over the last day. Denies any chest pain but does note that he feels like his arms are sore. Denies any hemoptysis. Denies lower extremity swelling. Denies fevers or chills. Patient is prescribed multiple medications including Eliquis which he states he has not been taking for some time now because he does not feel like they are doing anything. He states he intermittently takes his Eliquis when he feels like he needs it. - Related Data Home Medications Medication Instructions Recorded Confirmed ALPRAZolam [Xanax] 2 mg PO TID PRN 07/27/24 02/17/25 Aspirin EC [Ecotrin Low Dose] 81 mg PO DAILY 09/05/24 02/17/25 Apixaban [Eliquis] 2.5 mg PO BID 12/07/24 02/17/25 carvediloL [Coreg] 3.125 mg PO DAILY 12/07/24 02/17/25 Albuterol Sulfate [Albuterol 2 puff INHALATION RT-QID PRN 12/17/24 02/17/25 Sulfate Hfa] Gabapentin [Neurontin] 100 mg PO BID 12/17/24 02/17/25 Sacubitril/Valsartan [Entresto 24 1 tab PO BID 12/29/24 02/17/25 mg-26 mg Tablet] Atorvastatin [Lipitor] 40 mg PO HS 02/05/25 02/17/25 Folic Acid 1 mg PO DAILY 02/05/25 02/17/25 Sodium Bicarbonate Tab 650 mg PO TID 02/05/25 02/17/25 Previous Rx's Medication Instructions Recorded Spironolactone [Aldactone] 12.5 mg PO DAILY #30 tab 12/19/24 oxyCODONE HCL/ACETAMINOPHEN 1 tab PO Q6HR PRN 3 Days #12 tab 02/05/25 [Percocet 5-325 mg] Atorvastatin [Lipitor] 40 mg PO HS tab 02/06/25 Allergies Allergy/AdvReac Type Severity Reaction Status Date / Time latex Allergy Swelling Verified 02/17/25 06:42 atorvastatin [From Lipitor] AdvReac JOINT PAIN Verified 02/17/25 06:42 Review of Systems ROS Statement: Those systems with pertinent positive or pertinent negative responses have been documented in the HPI. ROS Other: All systems not noted in ROS Statement are negative. Past Medical History Past Medical History: Coronary Artery Disease (CAD), Chest Pain / Angina, Heart Failure, COPD, GERD/Reflux, Hyperlipidemia, Hypertension, Myocardial Infarction (CO), Osteoarthritis (OA), Sleep Apnea/CPAP/BIPAP Additional Past Medical History / Comment(s): Chronic back pain, left leg weakness. 4LNC. States unsure about having had a heart attack. Last Myocardial Infarction Date:: 11/11/22 History of Any Multi-Drug Resistant Organisms: None Reported Past Surgical History: Back Surgery, Cholecystectomy, Coronary Bypass/CABG, Heart Catheterization With Stent Additional Past Surgical History / Comment(s): Back surgery X2 with cage, left tennis elbow surgery, heart stents X7, colonoscopy. emergency CABG [facility] [place], thrombectomy. April Past Anesthesia/Blood Transfusion Reactions: No Reported Reaction Additional Past Anesthesia/Blood Transfusion Reaction / Comment(s): Pt received blood during CABG without reaction. Date of Last Stent Placement:: Oct 2022 Past Psychological History: Anxiety, Depression, PTSD Smoking Status: Former smoker, Vaper Past Alcohol Use History: None Reported Past Drug Use History: None Reported - Past Family History Father Family Medical History: Coronary Artery Disease (CAD), Deep Vein Thrombosis (DVT), GERD/Reflux, Hyperlipidemia, Myocardial Infarction (CO) Additional Family Medical History / Comment(s): Father of a CO in his 80's. Mother Family Medical History: Coronary Artery Disease (CAD), Myocardial Infarction (CO) Additional Family Medical History / Comment(s): Mother of a CO. Brother(s) Family Medical History: Myocardial Infarction (CO) Additional Family Medical History / Comment(s): . Sister(s) Family Medical History: Cancer, Diabetes Mellitus Additional Family Medical History / Comment(s): Lung cancer. Other sister had Diabetes. General Exam - General Exam Comments Initial Comments: PE: CONSTITUTIONAL: No apparent distress, ill-appearing nontoxic SKIN: Warm, dry, no jaundice, hives or petechiae EYES: Pupils are equally round, extraocular movements intact without nystagmus, clear conjunctiva, non-icteric sclera HENT: Normocephalic, atraumatic, moist mucus membranes, oropharynx clear without exudates NECK: , Full range of motion, normal appearance PULMONARY: Expiratory wheezes throughout all lung garsia, though good air movement, rales in right mid to lower lung field, normal excursion, mild tachypnea, no accessory muscle use and no stridor CARDIOVASCULAR: Regular rate, rhythm, normal S1 and S2. No appreciated murmurs, rubs or gallops. Strong radial pulses with intact distal perfusion. No lower extremity edema GASTROINTESTINAL: Soft, active bowel sounds throughout, non-tender, non- distended, no palpable masses, no rebound or guarding. No hepatosplenomegaly GENITOURINARY: MUSCULOSKELETAL: Extremities have no gross deformity, no edema, redness, or swelling. NEUROLOGIC:_a/o x 3, GCS 15, normal mentation and speech. Moves all extremities x 4 without motor or sensory deficit PSYCHIATRIC:_normal mood and affect, thought process is clear and linear Limitations: no limitations Course Vital Signs 02/16/25 02/16/25 02/17/25 22:02 22:36 00:14 Temperature 98.4 F 98.8 F Pulse Rate 90 86 81 Respiratory 18 18 Rate Blood Pressure 138/76 133/69 O2 Sat by Pulse 95 94 L Oximetry 02/17/25 02/17/25 02/17/25 00:24 00:52 01:02 Temperature Pulse Rate 84 84 84 Respiratory Rate Blood Pressure O2 Sat by Pulse Oximetry 02/17/25 02/17/25 02/17/25 01:40 03:10 05:10 Temperature 98.7 F Pulse Rate 80 78 77 Respiratory 18 Rate Blood Pressure 118/70 106/66 O2 Sat by Pulse Oximetry 02/17/25 02/17/25 05:16 06:38 Temperature Pulse Rate 78 86 Respiratory 17 Rate Blood Pressure 109/69 O2 Sat by Pulse 95 Oximetry EKG Findings - EKG Comments: EKG Findings:: Sinus rhythm rate 84 bpm intervals within acceptable limits, Q- wave lead V3, V4, compared to EKG performed onCompared to EKG performed on, overall unchanged from prior no new significant elevations or depressions compared to prior Medical Decision Making - Medical Decision Making Was pt. sent in by a medical professional or institution ([facility] Zelaya, STRA[employer] CUTTER, urgent care, hospital, or long-term...) When possible be specific @ -[No] Did you speak to anyone other than the patient for history (EMS, parent, family, police, friend...)? What history was obtained from this source @ -[No] Did you review nursing and triage notes (agree or disagree)? Why? @ -[I reviewed nursing and triage notes] Were old charts reviewed (outside hosp., previous admission, EMS record, old EKG, old radiological studies, urgent care reports/EKG's, long-term records)? Report findings @ -[Medical records reviewed]- Patient has had multiple ED visits and hospitalizations in the last year, due to complex past medical history, most recently was admitted on and discharged on 02/06/2025 for shortness of breath, CHF and pleural effusion, on review of that note it appears patient did have a thoracentesis Differential Diagnosis (chest pain, altered mental status, abdominal pain women, abdominal pain men, vaginal bleeding, weakness, fever, dyspnea, syncope, headache, dizziness, GI bleed, back pain, seizure, CVA, palpatations, mental health, musculoskeletal)? @Differential Dyspnea: Coronary syndrome, arrhythmia, tamponade, asthma, COPD, pulmonary embolism, pneumonia, pneumothorax, pulmonary effusion, anaphylaxis, diabetic ketoacidosis, flailed chest, pulmonary contusion, diaphragmatic rupture, anemia, neuromuscular, this is not meant to be an all-inclusive list. EKG interpreted by me (3pts min.). @ -[As above] X-rays interpreted by me (1pt min.). @ -[Personally reviewed chest x-ray, shows persistent right lower lobe pleural effusion does appear to show potentially new right middle lobe consolidation when compared to chest x-ray performed on 02/06/25. CT interpreted by me (1pt min.). CT PE study was reviewed and showed no evidence of PE, radiologist did note right pleural effusion with an airspace consolidation in the right lung base consistent with pneumonia, "superimposed aspiration not excluded" U/S interpreted by me (1pt. min.). @ -[None done] What testing was considered but not performed or refused? (CT, X-rays, U/S, labs)? Why? @ -[None] What meds were considered but not given or refused? Why? @ -[None] Did you discuss the management of the patient with other professionals (pro fessionals i.e. , PA, STRAIGHT CUTTER, lab, RT, psych nurse, social welfare clerk, silo tender, teacher, border patrol officer, case assembler)? Give summary @ -[No] Was smoking cessation discussed for >3mins.? @ -[No] Was critical care preformed (if so, how long)? @ -[No] Were there social determinants of health that impacted care today? How? (Homelessness, low income, unemployed, alcoholism, drug addiction, transportation, low edu. Level, literacy, decrease access to med. care, senior care, rehab)? @ -[No] Was there de-escalation of care discussed even if they declined (Discuss DNR or withdrawal of care, Hospice)? @ -[No] What co-morbidities impacted this encounter? (DM, HTN, Smoking, COPD, CAD, Cancer, CVA, ARF, Chemo, Hep., AIDS, mental health diagnosis, sleep apnea, morbid obesity)? @ -CAD, COPD, CHF Was patient admitted / discharged? Hospital course, mention meds given and route, prescriptions, significant lab abnormalities, going to OR and other pertinent info. @ -Admission -This is a pleasant 69-year-old gentleman complex medical history presenting for 3 days shortness of breath with sputum. Wheezes bilaterally on exam with rales in the right mid to lower lung field. On home oxygen 3 L. Mild tachypnea. No increased work of breathing. Plan for [id number] adviser treatments, steroids, Rocephin azithromycin, broad laboratory workup and chest x-ray. Patient has not been taking his Eliquis as prescribed so D-dimer will be obtained as well. D-dimer was elevated, CT PE study showed no evidence of PE though does show recurrent right-sided pleural effusion. Chest x-ray concerning for pneumonia though of note this is in the area patient is known pleural effusion. Radiologist did note concern for potential aspiration pneumonia so Flagyl was added to antibiotics. On reassessment patient is resting comfortably, respirations unlabored. Patient was updated to findings and discussed plan for admission, and was agreeable plan of care. Discussed with Dr. Gee, kindly accepts patient for admission. Undiagnosed new problem with uncertain prognosis? @ -[No] Drug Therapy requiring intensive monitoring for toxicity (Heparin, Nitro, Insulin, Cardizem)? @ -[No] Were any procedures done? @ -[No] Diagnosis/symptom? @Pneumonia, COPD exacerbation Acute, or Chronic, or Acute on Chronic? @Acute Uncomplicated (without systemic symptoms) or Complicated (systemic symptoms)? @Complicated Side effects of treatment? @ -[No] Exacerbation, Progression, or Severe Exacerbation? @Exacerbation of COPD Poses a threat to life or bodily function? How? (Chest pain, [place], CO, pneumonia, PE, COPD, DKA, ARF, appy, cholecystitis, CVA, Diverticulitis, Homicidal, Suicidal, threat to staff... and all critical care pts) @ Yes, if left untreated could progress to fulminant respiratory failure - Lab Data Result diagrams: 02/16/25 23:20 02/18/25 08:41 Lab Results 02/16/25 02/16/25 02/16/25 Range/Units 23:20 23:20 23:20 WBC 5.09 (4.50-10.00) 10*3/uL RBC 5.05 (4.40-5.60) 10*6/uL Hgb 13.5 (13.0-17.0) g/dL Hct 42.7 (39.6-50.0) % MCV 84.6 (80.0-97.0) fL MCH 26.7 L (27.0-32.0) pg MCHC 31.6 L (32.0-37.0) g/dL Plt Count 141 (140-440) 10*3/uL MPV 12.7 H (9.5-12.2) fL Immature Gran % (Auto) 0.2 % Neutrophils % 66.5 % Lymphocytes % 18.1 % Monocytes % 12.0 % Eosinophils % 2.4 % Basophils % 0.8 % Immature Gran # 0.01 (0.00-0.04) 10*3/uL Neutrophils # 3.39 (1.80-7.70) 10*3/uL Lymphocytes # 0.92 (0.90-5.00) 10*3/uL Monocytes # 0.61 (0.20-1.00) 10*3/uL Eosinophils # 0.12 (0.04-0.35) 10*3/uL Basophils # 0.04 (0.00-0.10) 10*3/uL PT 10.7 (10.0-12.5) sec INR 1.0 (<1.2) APTT 25.0 (22.0-30.0) sec D-Dimer 2.86 H (<0.60) mg/L FEU Sodium 135 L (137-145) mmol/L Potassium 4.5 (3.5-5.1) mmol/L Chloride 104 (98-107) mmol/L Carbon Dioxide 24 (22-30) mmol/L Anion Gap 7 mmol/L BUN 16 (9-20) mg/dL Creatinine 0.86 (0.66-1.25) mg/dL Est GFR (CKD-EPI)AfAm >90 (>60 ml/min/1.73 sqM) Est GFR (CKD-EPI)NonAf 90 (>60 ml/min/1.73 sqM) Glucose 93 (74-99) mg/dL Calcium 9.0 (8.4-10.2) mg/dL Magnesium 1.8 (1.6-2.3) mg/dL Total Bilirubin 1.0 (0.2-1.3) mg/dL AST 33 (17-59) U/L ALT 18 (4-49) U/L Alkaline Phosphatase 141 H (38-126) U/L Troponin I (0.000-0.034) ng/mL C-Reactive Protein (<1.0) mg/dL NT-Pro-B Natriuret Pep 2390 pg/mL Total Protein 7.2 (6.3-8.2) g/dL Albumin 4.0 (3.5-5.0) g/dL Lipase 83 (23-300) U/L Procalcitonin (0.02-0.50) ng/mL 02/16/25 02/17/25 02/17/25 Range/Units 23:20 00:00 00:00 WBC (4.50-10.00) 10*3/uL RBC (4.40-5.60) 10*6/uL Hgb (13.0-17.0) g/dL Hct (39.6-50.0) % MCV (80.0-97.0) fL MCH (27.0-32.0) pg MCHC (32.0-37.0) g/dL Plt Count (140-440) 10*3/uL MPV (9.5-12.2) fL Immature Gran % (Auto) % Neutrophils % % Lymphocytes % % Monocytes % % Eosinophils % % Basophils % % Immature Gran # (0.00-0.04) 10*3/uL Neutrophils # (1.80-7.70) 10*3/uL Lymphocytes # (0.90-5.00) 10*3/uL Monocytes # (0.20-1.00) 10*3/uL Eosinophils # (0.04-0.35) 10*3/uL Basophils # (0.00-0.10) 10*3/uL PT (10.0-12.5) sec INR (<1.2) APTT (22.0-30.0) sec D-Dimer (<0.60) mg/L FEU Sodium (137-145) mmol/L Potassium (3.5-5.1) mmol/L Chloride (98-107) mmol/L Carbon Dioxide (22-30) mmol/L Anion Gap mmol/L BUN (9-20) mg/dL Creatinine (0.66-1.25) mg/dL Est GFR (CKD-EPI)AfAm (>60 ml/min/1.73 sqM) Est GFR (CKD-EPI)NonAf (>60 ml/min/1.73 sqM) Glucose (74-99) mg/dL Calcium (8.4-10.2) mg/dL Magnesium (1.6-2.3) mg/dL Total Bilirubin (0.2-1.3) mg/dL AST (17-59) U/L ALT (4-49) U/L Alkaline Phosphatase (38-126) U/L Troponin I 0.018 (0.000-0.034) ng/mL C-Reactive Protein 1.7 H (<1.0) mg/dL NT-Pro-B Natriuret Pep pg/mL Total Protein (6.3-8.2) g/dL Albumin (3.5-5.0) g/dL Lipase (23-300) U/L Procalcitonin 0.08 (0.02-0.50) ng/mL Disposition Clinical Impression: Community acquired bacterial pneumonia Disposition: ADMITTED IP TO THIS HOSP Condition: Stable
[2025-02-17] MEDS: IPRATROPIUM-ALBUTEROL 3 ML NEB INHALATION STA (05:08)
[2025-02-17 06:21] LABS: Influenza A Not Detected (Not Detectd); Influenza B Not Detected (Not Detectd); RSV Not Detected (Not Detectd)
--- NOTE | 2025-02-17 07:00 | P.CNPUL ---
History of Present Illness Consult date: 02/17/25 Requesting physician: Alisson Mendes Reason for consult: pneumonia Chief complaint: Shortness of breath History of present illness: A pulmonary consult was placed for suspected pneumonia. Patient is a 69-year-old male with past medical history significant for coronary artery disease with previous PCI/stenting and CABG, ischemic cardiopathy with ejection fraction of 20 to 25%, hyperlipidemia, hypertension, atrial fibrillation anticoagulated with Eliquis, left carotid artery stenosis, COPD, former tobacco dependence. Presented to the emergency department late last night with a chief complaint of shortness of breath. Workup including a chest CTA which did not show any evidence of filling defects consistent with pulmonary emboli. Continues to show small right-sided pleural effusion with airspace consolidation, reportedly concerning for pneumonia versus compressive atelectasis. Of note, patient does have a recurrent right-sided pleural effusion, with multiple previous thoracentesis. Actually, did undergo right-sided thoracentesis on 02/06/2025, only 250 mL of fluid was removed from the pleural space at that time. Pleural fluid was technically an exudate based protein fluid analysis. Microbiology unremarkable. Fluid cytology also unremarkable for any malignant cells. Josiane ent was discharged on 02/06/25 with directions to follow-up on an outpatient basis with Dr. Nugent in the pulmonary office. CBC: WBC count 5, hemoglobin 13.5, platelets 141. CMP: Sodium 135, potassium 4.5, chloride 104, serum bicarb 24, BUN 16, creatinine 0.86, glucose 93. LFTs not elevated. Troponin 0.018. NT proBNP 2390. Patient currently being evaluated in the emergency department. He is on room air. Resting comfortably, without any acute distress. Endorses progressively worsening shortness of breath over the last several days. Associated cough with minimal yellow sputum production. Denies any fevers or chills. Nonlocalized and constant chest pain reported since last Monday. Denies orthopnea, PND, or lower extremity edema. Normally, maintained on a combination of Coreg, Entresto, Aldactone on an outpatient basis. Vital signs: Afebrile, heart rate 80 bpm, blood pressure 118/70 mmHg, nontachypneic, SpO2 recorded at 94% on room air. Review of Systems Constitutional: Reports fatigue, Denies chills, Denies fever, Denies weight gain, Denies weight loss Ears, nose, mouth and throat: Denies headache, Denies nasal congestion, Denies nasal discharge, Denies post-nasal drip, Denies sinus pain, Denies sinus pressure, Denies sore throat Cardiovascular: Reports as per HPI Respiratory: Reports as per HPI Gastrointestinal: Denies abdominal pain, Denies change in bowel habits, Denies diarrhea, Denies nausea, Denies vomiting Genitourinary: Denies dysuria Musculoskeletal: Denies limitation of motion Integumentary: Denies rash Neurological: Denies head injury, Denies headaches, Denies seizures, Denies syncope Psychiatric: Denies anxiety, Denies depression Past Medical History Past Medical History: Coronary Artery Disease (CAD), Chest Pain / Angina, Heart Failure, COPD, GERD/Reflux, Hyperlipidemia, Hypertension, Myocardial Infarction ([place]), Osteoarthritis (OA), Sleep Apnea/CPAP/BIPAP Additional Past Medical History / Comment(s): Chronic back pain, left leg weakness. 4LNC. States unsure about having had a heart attack. Last Myocardial Infarction Date:: 11/11/22 History of Any Multi-Drug Resistant Organisms: None Reported Past Surgical History: Back Surgery, Cholecystectomy, Coronary Bypass/CABG, Heart Catheterization With Stent Additional Past Surgical History / Comment(s): Back surgery X2 with cage, left tennis elbow surgery, heart stents X7, colonoscopy. emergency CABG [facility], thrombectomy. April Past Anesthesia/Blood Transfusion Reactions: No Reported Reaction Additional Past Anesthesia/Blood Transfusion Reaction / Comment(s): Pt received blood during CABG without reaction. Date of Last Stent Placement:: Oct 2022 Past Psychological History: Anxiety, Depression, PTSD Smoking Status: Former smoker, Vaper Past Alcohol Use History: None Reported Past Drug Use History: None Reported - Past Family History Father Family Medical History: Coronary Artery Disease (CAD), Deep Vein Thrombosis (DVT), GERD/Reflux, Hyperlipidemia, Myocardial Infarction ([place]) Additional Family Medical History / Comment(s): Father of a [place] in his 80's. Mother Family Medical History: Coronary Artery Disease (CAD), Myocardial Infarction (IN) Additional Family Medical History / Comment(s): Mother of a IN. Brother(s) Family Medical History: Myocardial Infarction (IN) Additional Family Medical History / Comment(s): . Sister(s) Family Medical History: Cancer, Diabetes Mellitus Additional Family Medical History / Comment(s): Lung cancer. Other sister had Diabetes. Medications and Allergies Home Medications Medication Instructions Recorded Confirmed Type ALPRAZolam [Xanax] 2 mg PO TID PRN 07/27/24 02/17/25 History Aspirin EC [Ecotrin Low Dose] 81 mg PO DAILY 09/05/24 02/17/25 History Apixaban [Eliquis] 2.5 mg PO BID 12/07/24 02/17/25 History carvediloL [Coreg] 3.125 mg PO DAILY 12/07/24 02/17/25 History Albuterol Sulfate [Albuterol 2 puff INHALATION RT-QID PRN 12/17/24 02/17/25 History Sulfate Hfa] Gabapentin [Neurontin] 100 mg PO BID 12/17/24 02/17/25 History Spironolactone [Aldactone] 12.5 mg PO DAILY #30 tab 12/19/24 02/17/25 Rx Sacubitril/Valsartan [Entresto 24 1 tab PO BID 12/29/24 02/17/25 History mg-26 mg Tablet] Atorvastatin [Lipitor] 40 mg PO HS 02/05/25 02/17/25 History Folic Acid 1 mg PO DAILY 02/05/25 02/17/25 History Sodium Bicarbonate Tab 650 mg PO TID 02/05/25 02/17/25 History oxyCODONE HCL/ACETAMINOPHEN 1 tab PO Q6HR PRN 3 Days #12 tab 02/05/25 02/17/25 Rx [Percocet 5-325 mg] Atorvastatin [Lipitor] 40 mg PO HS tab 02/06/25 02/17/25 Rx Allergies Allergy/AdvReac Type Severity Reaction Status Date / Time latex Allergy Swelling Verified 02/17/25 06:42 atorvastatin [From Lipitor] AdvReac JOINT PAIN Verified 02/17/25 06:42 Physical Exam Vitals: Vital Signs Temp Pulse Resp BP Pulse Ox 02/17/25 05:16 78 02/17/25 05:10 77 02/17/25 03:10 78 106/66 02/17/25 01:40 98.7 F 80 18 118/70 02/17/25 01:02 84 02/17/25 00:52 84 02/17/25 00:24 84 02/17/25 00:14 81 02/16/25 22:36 98.8 F 86 18 133/69 94 L 02/16/25 22:02 98.4 F 90 18 138/76 95 Intake and Output 02/16/25 02/16/25 02/17/25 14:59 22:59 06:59 Other: Weight 99.79 kg ENERAL EXAM: Alert, pleasant 69-year-old male, on room air, fairly comfortable in no apparent distress. HEAD: Normocephalic. EYES: Normal reaction of pupils, equal size. NOSE: Clear with pink turbinates. THROAT: No erythema or exudates. NECK: No masses, no JVD. CHEST: No chest wall deformity. Remote appearing midsternal thoracotomy incision with healed left lateral thoracotomy incision. LUNGS: Equal air entry with, diminished in the right lung base. Inspiratory/expiratory squeaking/grating heard best in supine position CVS: S1 and S2 normal with no audible murmur, regular rhythm. ABDOMEN: No hepatosplenomegaly, normal bowel sounds, no guarding or rigidity. SPINE: No scoliosis or deformity SKIN: No rashes CENTRAL NERVOUS SYSTEM: No focal deficits, tone is normal in all 4 extremities. EXTREMITIES: There is no peripheral edema. No clubbing, no cyanosis. Peripheral pulses are intact. Results - Laboratory Findings CBC and BMP: 02/16/25 23:20 02/16/25 23:20 PT/INR, D-dimer PT 10.7 sec (10.0-12.5) 02/16/25 23:20 INR 1.0 (<1.2) 02/16/25 23:20 D-Dimer 2.86 mg/L FEU (<0.60) H 02/16/25 23:20 Abnormal lab findings: Abnormal Labs 02/16/25 02/16/25 02/16/25 23:20 23:20 23:20 MCH 26.7 L MCHC 31.6 L MPV 12.7 H D-Dimer 2.86 H Sodium 135 L Alkaline Phosphatase 141 H - Diagnostic Findings Chest x-ray: image reviewed CT scan - chest: image reviewed Assessment and Plan Assessment: Recurrent right-sided pleural effusion, small in size, with multiple previous thoracentesis, most recently done on 02/06/2025, approximately 250 mL of fluid was removed from the pleural space at that time. Pleural fluid was technically an exudate based protein fluid analysis. Microbiology unremarkable. Fluid cytology also unremarkable for any malignant cells. Acute on chronic systolic congestive heart failure Acute on chronic dyspnea, secondary to above Coronary artery disease, with previous PCI/stenting and CABG over 20 years ago, subsequent two-vessel redo off-pump CABG April, Ischemic cardiomyopathy, echocardiogram from August, revealed a severely reduced left ventricular ejection fraction of 20 to 25%, as well as, moderate to severe mitral regurgitation Paroxysmal atrial fibrillation, currently sinus mechanism, anticoagulated on Eliquis Hypertension Hyperlipidemia Left internal carotid artery stenosis, 50-79% Former tobacco dependence Severe COPD , FEV1 43% of predicted Obstructive sleep apnea Chronic back pain with history of back surgery Plan: Patient's medications, labs, imaging reviewed Currently on room air Recurrent right-sided pleural effusion with likely associated compressive atelectasis. Not likely large enough for repeat thoracentesis at this time. Case to be reviewed with Dr. Wilson. Started on empiric antibiotics in the emergency department Check procalcitonin, manage accordingly Continue DuoNebs [id number] Start IV Lasix 40 mg daily Continues on Eliquis Continues on combination of Coreg, Entresto, Aldactone Further recommendations to follow I have personally seen and examined the patient, performed the documentation and the assessment and plan as written. Number of minutes spent on the visit:20 She being on this is a joint evaluation was done along with the nurse practitioner. The patient is being hospitalized for worsening shortness of breath. The patient is post bypass surgery and the patient has developed recurrent right-sided pleural effusion and the patient has undergone previous thoracentesis x 2 and the fluid seems to be transudative in nature. The patient also has ischemic cardiomyopathy with an ejection fraction of 20 to 25% along with moderate to severe mitral regurgitation and paroxysmal atrial fibrillation maintained on anticoagulation. He is known to have hypertension hyperlipidemia and left carotid artery stenosis in order of 50 to 79% and COPD with an FEV1 of 43% predicted and obstructive sleep apnea. Noted the patient had quit taking all of his medications including the Eliquis. He came into the hospital because of worsening shortness of breath. CAT scan of the chest was done and the patient was found to have a moderate-sized right-sided pleural effusion, recurrent along with mild hepatic steatosis. Discussed the findings with the patient. He stated that he felt much better after previous thoracentesis and the same is to be done after holding the Eliquis for 24 hours that the patient was given a dose of Eliquis today. The patient is on Coreg, Entresto and Aldactone. Antibiotic coverage is empiric. The patient is currently on Lasix 40 mg p.o. daily. The plan is to do a thoracentesis in AM. Eliquis will be placed on hold. Patient is agreeable. Time with Patient: Greater than 30
[2025-02-17] MEDS: IPRATROPIUM-ALBUTEROL 3 ML NEB INHALATION SCH (07:37)
[2025-02-17] MEDS: guaiFENesin 600 MG TABLET.ER PO STA (08:47)
[2025-02-17] MEDS: metroNIDAZOLE-NS PMX 500 MG in SALINE 1 100ML.BAG IVPB SCH (08:55)
[2025-02-17] MEDS ORDERED: FUROSEMIDE 10 MG/ML 4 ML VIAL IV SCH (09:00)
[2025-02-17] MEDS ORDERED: carvediloL 3.125 MG TAB PO SCH (09:00)
[2025-02-17] MEDS: ASPIRIN 81 MG PO SCH (09:11)
[2025-02-17] MEDS: FUROSEMIDE 40 MG TAB PO SCH (09:11)
[2025-02-17] MEDS: DAPAGLIFLOZIN PROPANEDIOL 10 MG TABLET PO SCH (09:11)
[2025-02-17] MEDS: METOPROLOL SUCCINATE (ER) 25 MG TAB.ER.24H PO SCH (09:11)
[2025-02-17] MEDS: APIXABAN 2.5 MG TABLET PO SCH (09:11)
[2025-02-17] MEDS: FOLIC ACID 1 MG TAB PO SCH (09:12)
[2025-02-17] MEDS: GABAPENTIN 100 MG CAP PO SCH (09:12)
[2025-02-17] MEDS: oxyCODONE-APAP 5-325MG 1 EACH TAB PO PRN (09:13)
--- NOTE | 2025-02-17 11:41 | P.CRDCN ---
History of Present Illness History of present illness: HISTORY OF PRESENT ILLNESS: This is Deon is a 69-year-old male with a past medical history significant for coronary artery disease, congestive heart failure, ischemic cardiomyopathy, par oxysmal atrial fibrillation, hypertension, and hyperlipidemia. Patient follows in the office with Dr. Wiggins. We have been asked to see the patient in consultation for congestive heart failure. Patient examined at the bedside. Patient presented to the hospital with a chief complaint of shortness of breath. Patient states he has been feeling short of breath for the past 3 to 4 days. He reports wheezing at home. He does report having a cough with yellow sputum production. He denies any chest pain or pressure. Patient does report he quit smoking about 6 months ago. Patient reports that he does not always take his medications at home and has been skipping doses. Patient was recently hospit alized and November 2024 for CHF. At that time patient was started on Aldactone and Farxiga. He is no longer taking the Farxiga for unknown reasons. DIAGNOSTICS: - EKG reveals sinus mechanism with T wave inversions in V3V6 - Chest xray similar moderate size right pleural effusion with adjacent airspace opacity represents atelectasis. Cardiomegaly and mild pulmonary vascular congestion redemonstrated. Correlate for possible CHF exacerbation. -Chest CTA: Negative for pulmonary embolism. Small right pleural effusion. Airspace consolidation of the right lung base consistent with pneumonia superimposed aspiration not excluded. Mild hepatic cirrhosis. Splenomegaly. - Laboratory data: WBC 5.09. Hemoglobin 13.5. Platelet count 141. D-dimer 2.86. Sodium 135. Potassium 4.5. BUN 16. Creatinine 0.86. proBNP 2390. Procalcitonin 0.08. - Current home cardiac medications include Eliquis 2.5 mg twice a day, aspirin 81 mg daily, Lipitor 40 mg at night, Entresto 24-26 mg twice a day, Aldactone 12.5 mg daily, carvedilol 3.125 mg daily. - Most recent echocardiogram obtained in 09/06/2024 reveals EF 20 to 25%, apical and anterior apical distal anterior septal hypokinesis, moderate to severe MR, mild AR REVIEW OF SYSTEMS: At the time of my exam: CONSTITUTIONAL: Denies fever or chills. HEENT: Denies blurred vision, vision changes, or eye pain. Denies hemoptysis CARDIOVASCULAR: Denies chest pain. Denies orthopnea. Denies PND. Denies palpitations RESPIRATORY: Denies shortness of breath. GASTROINTESTINAL: Denies abdominal pain. Denies nausea or vomiting. HEMATOLOGIC: Denies bleeding disorders. GENITOURINARY: Denies any blood in urine. SKIN: Denies pruitis. Denies rash. PHYSICAL EXAM: VITAL SIGNS: Reviewed. GENERAL: Well-developed in no acute distress. HEENT: Head is normocephalic. Pupils are equal, round. Sclerae anicteric. Mucous membranes of the mouth are moist. Neck supple. No JVD or thyromegaly LUNGS: Respirations even and unlabored. Lungs diminished bilaterally HEART: Regular rate and rhythm. S1 and S2 heard. Systolic murmur noted. ABDOMEN: Soft. Nondistended. Nontender. EXTREMITIES: Normal range of motion. No clubbing or cyanosis. Peripheral pulses intact. No lower extremity edema NEUROLOGIC: Awake and alert. Oriented x 3. ASSESSMENT: Pneumonia per chest CTA Chronic heart failure with reduced EF, appears euvolemic on examination Coronary artery disease with previous CABG 20 years ago and redo CABG x 2, April 2024 Ischemic cardiomyopathy 20-25% History of bilateral pleural effusions History of multiple thoracentesis, most recent on 02/06/2025 Paroxysmal atrial fibrillation Hypertension Hyperlipidemia Medication noncompliance Former nicotine dependence, patient quit smoking 6 months ago PLAN: No need to repeat echocardiogram as this was performed in August 2024 Discontinue IV Lasix. Begin oral Lasix 40 mg daily Add Farxiga 10 mg daily Discontinue carvedilol. Begin metoprolol succinate 25 mg daily Continue additional home cardiac medications as listed above Reinforced importance of medication compliance Further recommendations pending patient course Nurse practitioner note has been reviewed by physician. Signing provider agrees with the documented findings, assessment, and plan of care documented by ASSOCIATE PROFESSOR OF PATHOLOGY as a scribe. Past Medical History Past Medical History: Coronary Artery Disease (CAD), Chest Pain / Angina, Heart Failure, COPD, GERD/Reflux, Hyperlipidemia, Hypertension, Myocardial Infarction ([place]), Osteoarthritis (OA), Sleep Apnea/CPAP/BIPAP Additional Past Medical History / Comment(s): Chronic back pain, left leg weakness. 3LNC PRN. Last Myocardial Infarction Date:: 11/11/22 History of Any Multi-Drug Resistant Organisms: None Reported Past Surgical History: Back Surgery, Cholecystectomy, Coronary Bypass/CABG, Heart Catheterization With Stent Additional Past Surgical History / Comment(s): Back surgery X2 with cage, left tennis elbow surgery, heart stents X7, colonoscopy. emergency CABG [facility], thrombectomy. April Past Anesthesia/Blood Transfusion Reactions: No Reported Reaction Additional Past Anesthesia/Blood Transfusion Reaction / Comment(s): Pt received blood during CABG without reaction. Date of Last Stent Placement:: Oct 2022 Past Psychological History: Anxiety, Depression, PTSD Smoking Status: Current some day smoker, Vaper Past Alcohol Use History: None Reported Additional Past Alcohol Use History / Comment(s): Started smoking in 1967. No alcohol in 30+ yrs. Past Drug Use History: None Reported Additional Drug Use History / Comment(s): States no cocaine use for 30+ yrs. - Past Family History Father Family Medical History: Coronary Artery Disease (CAD), Deep Vein Thrombosis (DVT), GERD/Reflux, Hyperlipidemia, Myocardial Infarction ([place]) Additional Family Medical History / Comment(s): Father of a [place] in his 80's. Mother Family Medical History: Coronary Artery Disease (CAD), Myocardial Infarction (MT) Additional Family Medical History / Comment(s): Mother of a MT. Brother(s) Family Medical History: Myocardial Infarction ([place]) Additional Family Medical History / Comment(s): . Sister(s) Family Medical History: Cancer, Diabetes Mellitus Additional Family Medical History / Comment(s): Lung cancer. Other sister had Diabetes. Medications and Allergies Home Medications Medication Instructions Recorded Confirmed Type ALPRAZolam [Xanax] 2 mg PO TID PRN 07/27/24 02/17/25 History Aspirin EC [Ecotrin Low Dose] 81 mg PO DAILY 09/05/24 02/17/25 History Apixaban [Eliquis] 2.5 mg PO BID 12/07/24 02/17/25 History carvediloL [Coreg] 3.125 mg PO DAILY 12/07/24 02/17/25 History Albuterol Sulfate [Albuterol 2 puff INHALATION RT-QID PRN 12/17/24 02/17/25 History Sulfate Hfa] Gabapentin [Neurontin] 100 mg PO BID 12/17/24 02/17/25 History Spironolactone [Aldactone] 12.5 mg PO DAILY #30 tab 12/19/24 02/17/25 Rx Sacubitril/Valsartan [Entresto 24 1 tab PO BID 12/29/24 02/17/25 History mg-26 mg Tablet] Atorvastatin [Lipitor] 40 mg PO HS 02/05/25 02/17/25 History Folic Acid 1 mg PO DAILY 02/05/25 02/17/25 History Sodium Bicarbonate Tab 650 mg PO TID 02/05/25 02/17/25 History oxyCODONE HCL/ACETAMINOPHEN 1 tab PO Q6HR PRN 3 Days #12 tab 02/05/25 02/17/25 Rx [Percocet 5-325 mg] Atorvastatin [Lipitor] 40 mg PO HS tab 02/06/25 02/17/25 Rx Allergies Allergy/AdvReac Type Severity Reaction Status Date / Time latex Allergy Swelling Verified 02/17/25 06:42 atorvastatin [From Lipitor] AdvReac JOINT PAIN Verified 02/17/25 06:42 Physical Exam Vitals: Vital Signs Temp Pulse Pulse Resp BP BP Pulse Ox 02/17/25 11:16 86 02/17/25 10:26 86 99/52 92 L 02/17/25 07:47 82 02/17/25 07:38 86 02/17/25 07:05 98 F 78 18 110/68 92 L 02/17/25 06:38 86 17 109/69 95 02/17/25 05:16 78 02/17/25 05:10 77 02/17/25 03:10 78 106/66 02/17/25 01:40 98.7 F 80 18 118/70 02/17/25 01:02 84 02/17/25 00:52 84 02/17/25 00:24 84 02/17/25 00:14 81 02/16/25 22:36 98.8 F 86 18 133/69 94 L 02/16/25 22:02 98.4 F 90 18 138/76 95 Intake and Output 02/16/25 02/17/25 02/17/25 22:59 06:59 14:59 Other: Voiding Method Urinal Weight 99.79 kg 99.79 kg Results 02/16/25 23:20 02/16/25 23:20 Cardiac Enzymes 02/16/25 02/16/25 Range/Units 23:20 23:20 AST 33 (17-59) U/L Troponin I 0.018 (0.000-0.034) ng/mL Coagulation 02/16/25 Range/Units 23:20 PT 10.7 (10.0-12.5) sec APTT 25.0 (22.0-30.0) sec CBC 02/16/25 Range/Units 23:20 WBC 5.09 (4.50-10.00) 10*3/uL RBC 5.05 (4.40-5.60) 10*6/uL Hgb 13.5 (13.0-17.0) g/dL Hct 42.7 (39.6-50.0) % Plt Count 141 (140-440) 10*3/uL Comprehensive Metabolic Panel 02/16/25 Range/Units 23:20 Sodium 135 L (137-145) mmol/L Potassium 4.5 (3.5-5.1) mmol/L Chloride 104 (98-107) mmol/L Carbon Dioxide 24 (22-30) mmol/L BUN 16 (9-20) mg/dL Creatinine 0.86 (0.66-1.25) mg/dL Glucose 93 (74-99) mg/dL Calcium 9.0 (8.4-10.2) mg/dL AST 33 (17-59) U/L ALT 18 (4-49) U/L Alkaline Phosphatase 141 H (38-126) U/L Total Protein 7.2 (6.3-8.2) g/dL Albumin 4.0 (3.5-5.0) g/dL Current Medications Generic Name Dose Route Start Last Admin Trade Name Freq PRN Reason Stop Dose Admin Acetaminophen 650 mg 02/17/25 04:53 Acetaminophen Tab 325 Mg Tab PO Q6HR PRN Fever and/ or Pain Albuterol Sulfate 2.5 mg 02/17/25 05:02 Albuterol Nebulized 2.5 Mg/3 Ml INHALATION RT-QID PRN Shortness Of Breath Albuterol/Ipratropium 3 ml 02/17/25 08:00 02/17/25 11:16 Ipratropium-Albuterol 3 Ml Neb INHALATION 3 ml RT-QID ELIANA Administration Albuterol/Ipratropium 3 ml 02/17/25 04:53 Ipratropium-Albuterol 3 Ml Neb INHALATION RT-Q4H PRN shortness of breath Alprazolam 2 mg 02/17/25 05:02 Alprazolam 1 Mg Tab PO TID PRN Anxiety Apixaban 2.5 mg 02/17/25 09:00 02/17/25 09:11 Apixaban 2.5 Mg Tablet PO 2.5 mg BID ELIANA Administration Protocol Aspirin 81 mg 02/17/25 09:00 02/17/25 09:11 Aspirin 81 Mg PO 81 mg DAILY ELIANA Administration Azithromycin 500 mg 02/18/25 09:00 Azithromycin 500 Mg Tab PO 02/19/25 09:01 DAILY ELIANA Protocol Dapagliflozin 10 mg 02/17/25 09:00 02/17/25 09:11 Dapagliflozin Propanediol 10 Mg Tablet PO 10 mg DAILY ELIANA Administration Folic Acid 1 mg 02/17/25 09:00 02/17/25 09:12 Folic Acid 1 Mg Tab PO 1 mg DAILY ELIANA Administration Furosemide 40 mg 02/17/25 09:00 02/17/25 09:11 Furosemide 40 Mg Tab PO 40 mg DAILY ELIANA Administration Gabapentin 100 mg 02/17/25 09:00 02/17/25 09:12 Gabapentin 100 Mg Cap PO 100 mg BID ELIANA Administration Ceftriaxone Sodium 2 gm/ 50 mls @ 100 mls/hr 02/18/25 09:00 Sodium Chloride IVPB 02/21/25 09:29 Q24HR ELIANA Protocol Metronidazole 500 mg/ IV 100 mls @ 100 mls/hr 02/17/25 08:00 02/17/25 08:55 Solution IVPB 100 mls/hr Q8HR ELIANA Administration Protocol Metoprolol Succinate 25 mg 02/17/25 09:00 02/17/25 09:11 Metoprolol Succinate (Er) 25 Mg Tab.Er.24h PO 25 mg DAILY ELIANA Administration Miscellaneous Information 1 each 02/17/25 04:53 Pneumonia Protocol Utilized 1 Each Misc PO ONCE PRN Per Protocol Oxycodone/Acetaminophen 1 each 02/17/25 05:03 02/17/25 09:13 Oxycodone-Apap 5-325mg 1 Each Tab PO 1 each Q6HR PRN Administration Pain Sacubitril/Valsartan 1 each 02/17/25 09:00 Sacubitril/Valsartan 24 Mg-26 Mg Tablet PO BID ELIANA Sodium Bicarbonate 650 mg 02/17/25 16:00 Sodium Bicarbonate Tab 650 Mg Tab PO TID ELIANA Spironolactone 12.5 mg 02/17/25 09:00 Spironolactone 25 Mg Tab PO DAILY ELIANA Intake and Output 02/16/25 02/17/25 02/17/25 22:59 06:59 14:59 Other: Voiding Method Urinal Weight 99.79 kg 99.79 kg 02/16/25 23:20 02/16/25 23:20
[2025-02-17] MEDS: MORPHINE SULFATE 4 MG/ML SYRINGE IVP PRN (13:23)
[2025-02-17] MEDS: SACUBITRIL/VALSARTAN 24 MG-26 MG TABLET PO SCH (13:36)
[2025-02-17] MEDS: SPIRONOLACTONE 25 MG TAB PO SCH (15:39)
[2025-02-17] MEDS ORDERED: SODIUM BICARBONATE TAB 650 MG TAB PO SCH (16:00)
--- NOTE | 2025-02-17 21:19 | HP ---
HISTORY AND PHYSICAL CHIEF COMPLAINT: Chest pain and shortness of breath with a history of acute on chronic congestive heart failure, COPD, and atrial fibrillation. HISTORY OF PRESENT ILLNESS: He presented to the emergency room with shortness of breath and chest pain. X-ray revealed a recurrent right pleural effusion and possible pneumonitis. Interestingly, he stated that he had stopped taking all of his medications. REVIEW OF SYSTEMS: Other than the shortness of breath, no acute symptoms. Past medical history, family history, personal and social histories are all otherwise unchanged from his recent and numerous hospital admissions. He has had 2 coronary artery bypass grafts with multiple stentings. He has continued to smoke. PHYSICAL EXAMINATION: VITAL SIGNS: Normal. HEAD, EARS, EYES, NOSE, MOUTH, AND THROAT: Normal. CHEST: Demonstrated scattered rales and decreased breath sounds on the right. CARDIAC: Revealed tachycardia . ABDOMEN: Soft and nontender. EXTREMITIES: Normal. IMPRESSION: 1. Right lower lobe pneumonitis. 2. Chronic right pleural effusion. 3. Chronic congestive heart failure with reduced ejection fraction. 4. Atherosclerotic cardiomyopathy. 5. Coronary artery disease. 6. Chronic obstructive pulmonary disease. PLAN: 1. Bedrest. 2. IV fluids. 3. IV antibiotics. 4. Consult with Pulmonology, Infectious Disease, and Cardiology. MMODL / IJN: [id number] /
[2025-02-17] MEDS: ALPRAZolam 1 MG TAB PO PRN (21:40)
--- NOTE | 2025-02-17 21:44 | P.CONS ---
History of Present Illness - Reason for Consult Consult date: 02/17/25 Pneumonia Requesting physician: Alisson Mendes - Chief Complaint Shortness of breath and cough x 3 days - History of Present Illness Patient is a 69-year-old male with a past medical history significant for Coronary Artery Disease (CAD), Chest Pain / Angina, Heart Failure, COPD, GERD/Reflux, Hyperlipidemia, Hypertension, Myocardial Infarction (NH), Osteoarthritis (OA), Sleep Apnea/CPAP/BIPAP, presenting to the hospital for evaluation of increasing shortness of breath and cough that has been getting worse for the last 3 days before presentation to hospital patient complaining of cough which has been moderate intensity is bringing some thick sputum denies any hemoptysis did have right-sided pleuritic chest pain mild to moderate intense without radiation denies high-grade fever with the symptoms the patient has been evaluated on presentation to the hospital patient was afebrile no fever have been called subsequently patient was mildly tachycardic but not hypotensive or hypoxic no need for supplemental oxygen white count was 5.09 creatinine 0.86 electrolytes has been normal liver enzymes normal influenza RSV COVID testing has been negative patient did have a chest x-ray moderate size right effusion with adjacent airspace opacity representing atelectasis patient did have a CT angiogram of the chest that was negative for PE small right effusion ACPs consolidation of the right lung base consistent with pneumonia patient is being treated with Rocephin and Zithromax infectious disease was consulted for further management of antibiotic therapy Review of Systems Positive point and negatives has been mentioned in the HPI, complete review of systems was performed and all other systems are negative Past Medical History Past Medical History: Coronary Artery Disease (CAD), Chest Pain / Angina, Heart Failure, COPD, GERD/Reflux, Hyperlipidemia, Hypertension, Myocardial Infarction (NH), Osteoarthritis (OA), Sleep Apnea/CPAP/BIPAP Additional Past Medical History / Comment(s): Chronic back pain, left leg weakness. 3LNC PRN. Last Myocardial Infarction Date:: 11/11/22 History of Any Multi-Drug Resistant Organisms: None Reported Past Surgical History: Back Surgery, Cholecystectomy, Coronary Bypass/CABG, Heart Catheterization With Stent Additional Past Surgical History / Comment(s): Back surgery X2 with cage, left tennis elbow surgery, heart stents X7, colonoscopy. emergency CABG [facility], thrombectomy. Evi Bipass Past Anesthesia/Blood Transfusion Reactions: No Reported Reaction Additional Past Anesthesia/Blood Transfusion Reaction / Comm: Pt received blood during CABG without reaction. Date of Last Stent Placement:: Oct 2022 Past Psychological History: Anxiety, Depression, PTSD Smoking Status: Current some day smoker, Vaper Past Alcohol Use History: None Reported Additional Past Alcohol Use History / Comment(s): Started smoking in 1967. No alcohol in 30+ yrs. Past Drug Use History: None Reported Additional Drug Use History / Comment(s): States no cocaine use for 30+ yrs. - Past Family History Father Family Medical History: Coronary Artery Disease (CAD), Deep Vein Thrombosis (DVT), GERD/Reflux, Hyperlipidemia, Myocardial Infarction (NH) Additional Family Medical History / Comment(s): Father of a NH in his 80's. Mother Family Medical History: Coronary Artery Disease (CAD), Myocardial Infarction (NH) Additional Family Medical History / Comment(s): Mother of a NH. Brother(s) Family Medical History: Myocardial Infarction (NH) Additional Family Medical History / Comment(s): . Sister(s) Family Medical History: Cancer, Diabetes Mellitus Additional Family Medical History / Comment(s): Lung cancer. Other sister had Diabetes. Medications and Allergies Home Medications Medication Instructions Recorded Confirmed Type ALPRAZolam [Xanax] 2 mg PO TID PRN 07/27/24 02/17/25 History Aspirin EC [Ecotrin Low Dose] 81 mg PO DAILY 09/05/24 02/17/25 History Apixaban [Eliquis] 2.5 mg PO BID 12/07/24 02/17/25 History carvediloL [Coreg] 3.125 mg PO DAILY 12/07/24 02/17/25 History Albuterol Sulfate [Albuterol 2 puff INHALATION RT-QID PRN 12/17/24 02/17/25 History Sulfate Hfa] Gabapentin [Neurontin] 100 mg PO BID 12/17/24 02/17/25 History Spironolactone [Aldactone] 12.5 mg PO DAILY #30 tab 12/19/24 02/17/25 Rx Sacubitril/Valsartan [Entresto 24 1 tab PO BID 12/29/24 02/17/25 History mg-26 mg Tablet] Atorvastatin [Lipitor] 40 mg PO HS 02/05/25 02/17/25 History Folic Acid 1 mg PO DAILY 02/05/25 02/17/25 History Sodium Bicarbonate Tab 650 mg PO TID 02/05/25 02/17/25 History oxyCODONE HCL/ACETAMINOPHEN 1 tab PO Q6HR PRN 3 Days #12 tab 02/05/25 02/17/25 Rx [Percocet 5-325 mg] Atorvastatin [Lipitor] 40 mg PO HS tab 02/06/25 02/17/25 Rx Azithromycin [Zithromax] 500 mg PO DAILY #7 tab 02/18/25 Rx Dapagliflozin Propanediol [Farxiga] 10 mg PO DAILY #10 tab 02/18/25 Rx Furosemide [Lasix] 40 mg PO DAILY #10 tab 02/18/25 Rx metroNIDAZOLE [Flagyl] 500 mg PO Q8HR #14 tab 02/18/25 Rx Allergies Allergy/AdvReac Type Severity Reaction Status Date / Time latex Allergy Swelling Verified 02/17/25 06:42 atorvastatin [From Lipitor] AdvReac JOINT PAIN Verified 02/17/25 06:42 Physical Exam Vitals: Vital Signs Temp Pulse Pulse Resp BP BP Pulse Ox 02/17/25 11:30 78 02/17/25 11:16 86 02/17/25 10:26 86 99/52 92 L 02/17/25 07:47 82 02/17/25 07:38 86 02/17/25 07:05 98 F 78 18 110/68 92 L 02/17/25 06:38 86 17 109/69 95 02/17/25 05:16 78 02/17/25 05:10 77 02/17/25 03:10 78 106/66 02/17/25 01:40 98.7 F 80 18 118/70 02/17/25 01:02 84 02/17/25 00:52 84 02/17/25 00:24 84 02/17/25 00:14 81 02/16/25 22:36 98.8 F 86 18 133/69 94 L 02/16/25 22:02 98.4 F 90 18 138/76 95 Intake and Output 02/16/25 02/17/25 02/17/25 22:59 06:59 14:59 Other: Voiding Method Urinal Weight 99.79 kg 99.79 kg GENERAL DESCRIPTION: Elderly male lying in bed, no distress. No tachypnea or accessory muscle of respiration use. HEENT: Shows Pallor , no scleral icterus. Oral mucous membrane is dry. No pharyngeal erythema or thrush NECK: Trachea central, no thyromegaly. LUNGS: Unlabored breathing. Decreased breath sound at the base HEART: S1, S2, regular rate and rhythm. No loud murmur ABDOMEN: Soft, no tenderness , guarding or rigidity, no organomegaly EXTREMITIES: No edema of feet. SKIN: No rash, no masses palpable. NEUROLOGICAL: The patient is awake, alert, oriented x3, mood and affect normal. Results CBC & Chem 7: 02/16/25 23:02/18/25 08:41 Labs: Abnormal Lab Results - Last 24 Hours (Table) 02/16/25 02/16/25 02/16/25 Range/Units 23:20 23:20 23:20 MCH 26.7 L (27.0-32.0) pg MCHC 31.6 L (32.0-37.0) g/dL MPV 12.7 H (9.5-12.2) fL D-Dimer 2.86 H (<0.60) mg/L FEU Sodium 135 L (137-145) mmol/L Alkaline Phosphatase 141 H (38-126) U/L C-Reactive Protein (<1.0) mg/dL 02/17/25 Range/Units 00:00 MCH (27.0-32.0) pg MCHC (32.0-37.0) g/dL MPV (9.5-12.2) fL D-Dimer (<0.60) mg/L FEU Sodium (137-145) mmol/L Alkaline Phosphatase (38-126) U/L C-Reactive Protein 1.7 H (<1.0) mg/dL Assessment and Plan (1) Pneumonia Current Visit: Yes Status: Acute Code(s): J18.9 - PNEUMONIA, UNSPECIFIED ORGANISM SNOMED Code(s): 792885281 Plan: 1patient presented to hospital with increasing shortness of breath he also have a cough bringing up thick sputum with evidence of constipation on the CT as well as effusion concerning for pneumonia likely community-acquired less likely aspiration etiology 2-try to obtain sputum for Gram stain and culture check inflammatory markers 3-will treat with Rocephin and Zithromax while waiting for the workup to be completed We will follow on clinical condition and cultures to further adjust medication if needed Thank you for this consultation we will follow the patient along with you Dictation was produced using [employer] dictation software. please excuse any grammatical, word or spelling errors. Time with Patient: Greater than 30
[2025-02-17] MEDS: ALBUTEROL NEBULIZED 2.5 MG/3 ML INHALATION PRN (23:58)
[2025-02-18 05:11] LABS: African American GFR (CKD) 86 (>60 ml/min/1.73 sqM); Anion Gap 10 mmol/L; Blood Urea Nitrogen 31 mg/dL (9-20); Carbon Dioxide 20 mmol/L (22-30); Chloride 103 mmol/L (98-107); Glucose 107 mg/dL (74-99); Non-African American GFR(CKD) 74 (>60 ml/min/1.73 sqM); Sodium 133 mmol/L (137-145)
[2025-02-18 07:26] VITALS: RESP 18; TEMP 97.7
[2025-02-18] MEDS: AZITHROMYCIN 500 MG TAB PO SCH (08:43)
[2025-02-18] MEDS: cefTRIAXone 2 GM in DEXTROSE 5% IN WATER 50 ML IVPB SCH (09:50)
--- NOTE | 2025-02-18 12:08 | P.PN ---
Subjective HISTORY OF PRESENT ILLNESS: This is a 69-year-old male with a past medical history significant for coronary artery disease, congestive heart failure, ischemic cardiomyopathy, paroxysmal atrial fibrillation, hypertension, and hyperlipidemia. Patient follows in the office with Dr. Wiggins. We have been asked to see the patient in consultation for congestive heart failure. Patient examined at the bedside. Patient presented to the hospital with a chief complaint of shortness of breath. Patient states he has been feeling short of breath for the past 3 to 4 days. He reports wheezing at home. He does report having a cough with yellow sputum production. He denies any chest pain or pressure. Patient does report he quit smoking about 6 months ago. Patient reports that he does not always take his medications at home and has been skipping doses. Patient was recently hospitalized and November 2024 for CHF. At that time patient was started on Aldactone and Farxiga. He is no longer taking the Farxiga for unknown reasons. DIAGNOSTICS: - EKG reveals sinus mechanism with T wave inversions in V3V6 - Chest xray similar moderate size right pleural effusion with adjacent airspace opacity represents atelectasis. Cardiomegaly and mild pulmonary vascular congestion redemonstrated. Correlate for possible CHF exacerbation. -Chest CTA: Negative for pulmonary embolism. Small right pleural effusion. Airspace consolidation of the right lung base consistent with pneumonia superimposed aspiration not excluded. Mild hepatic cirrhosis. Splenomegaly. - Laboratory data: WBC 5.09. Hemoglobin 13.5. Platelet count 141. D-dimer 2.86. Sodium 135. Potassium 4.5. BUN 16. Creatinine 0.86. proBNP 2390. Procalcitonin 0.08. - Current home cardiac medications include Eliquis 2.5 mg twice a day, aspirin 81 mg daily, Lipitor 40 mg at night, Entresto 24-26 mg twice a day, Aldactone 12.5 mg daily, carvedilol 3.125 mg daily. - Most recent echocardiogram obtained in 09/06/2024 reveals EF 20 to 25%, apical and anterior apical distal anterior septal hypokinesis, moderate to severe MR, mild AR 02/18/2025 Patient examined this morning at the bedside. Patient currently denies chest pain or pressure. She denies shortness of breath. Vital signs are stable. Patient's Eliquis has been placed on hold. Patient reports he is to undergo right-sided thoracentesis today. Potassium this morning 6.0. Hemolyzed specimen. Repeat 4.6. PHYSICAL EXAM: VITAL SIGNS: Reviewed. GENERAL: Well-developed in no acute distress. HEENT: Head is normocephalic. Pupils are equal, round. Sclerae anicteric. Mucous membranes of the mouth are moist. Neck supple. No JVD or thyromegaly LUNGS: Respirations even and unlabored. Lungs diminished bilaterally HEART: Regular rate and rhythm. S1 and S2 heard. Systolic murmur noted. ABDOMEN: Soft. Nondistended. Nontender. EXTREMITIES: Normal range of motion. No clubbing or cyanosis. Peripheral pulses intact. No lower extremity edema NEUROLOGIC: Awake and alert. Oriented x 3. ASSESSMENT: Pneumonia per chest CTA Chronic heart failure with reduced EF, appears euvolemic on examination Coronary artery disease with previous CABG 20 years ago and redo CABG x 2, April 2024 Ischemic cardiomyopathy 20-25% History of bilateral pleural effusions History of multiple thoracentesis, most recent on 02/06/2025 Paroxysmal atrial fibrillation Hypertension Hyperlipidemia Medication noncompliance Former nicotine dependence, patient quit smoking 6 months ago PLAN: No need to repeat echocardiogram as this was performed in August 2024 Continue current cardiac medications including aspirin, Farxiga, Lasix, Entres to, metoprolol, and Aldactone Eliquis has been placed on hold for possible thoracentesis. Resume po stprocedure. Reinforced importance of medication compliance Further recommendations pending patient course Nurse practitioner note has been reviewed by physician. Signing provider agrees with the documented findings, assessment, and plan of care documented by P[employer] SANDER as a scribe. Objective - Vital Signs Vital signs: Vital Signs Temp 97.7 F 02/18/25 07:03 Pulse 72 02/18/25 11:19 Resp 18 02/18/25 07:03 BP 99/61 02/18/25 07:03 Pulse Ox 93 L 02/18/25 07:03 FiO2 Intake & Output 02/17/25 02/18/25 02/18/25 18:59 06:59 18:59 Intake Total 540 Output Total 400 Balance 140 Intake: Oral 540 Output: Urine 400 Other: Voiding Method Urinal Urinal Toilet # Voids 1 - Labs CBC & Chem 7: 02/16/25 23:20 02/18/25 08:41 Labs: Abnormal Lab Results - Last 24 Hours (Table) 02/18/25 Range/Units 04:15 Sodium 133 L (137-145) mmol/L Potassium 6.0 H (3.5-5.1) mmol/L Carbon Dioxide 20 L (22-30) mmol/L BUN 31 H (9-20) mg/dL Glucose 107 H (74-99) mg/dL
[2025-02-18 12:58] VITALS: BP 97/54; PULSE 70
--- NOTE | 2025-02-18 14:04 | XR ---
EXAMINATION TYPE: XR chest 1V portable DATE OF EXAM: 02/18/2025 1:49 PM COMPARISON: 02/16/2025 CLINICAL INDICATION: Male, 69 years old with history of Post-thoracentesis; [facility] TECHNIQUE: XR chest 1V portable Frontal view of the chest. FINDINGS: Lungs/Pleura: Interval reduction in the Blunting of the right costophrenic angle. There is no eviden ce of left pleural effusion, focal consolidation, or pneumothorax Pulmonary vascularity: Unremarkable. Heart/mediastinum: Cardiomediastinal silhouette is unremarkable. Musculoskeletal: No acute osseous pathology. Midline sternotomy wires are noted. IMPRESSION: Reduction in right pleural effusion without evidence for pneumothorax. [facility], , 02/18/2025 2:01 PM
--- NOTE | 2025-02-18 14:54 | P.PN ---
Subjective Progress Note Date: 02/18/25 Principal diagnosis: Reason for follow-up is pneumonia Patient is a 69-year-old male with a past medical history significant for Coronary Artery Disease (CAD), Chest Pain / Angina, Heart Failure, COPD, GERD/Reflux, Hyperlipidemia, Hypertension, Myocardial Infarction ([place]), Osteoarthritis (OA), Sleep Apnea/CPAP/BIPAP, presenting to the hospital for evaluation of increasing shortness of breath and cough did have a CT angiogram concerning for right lower lobe pneumonia. On today's evaluation that is 02/18/2025, Patient is afebrile this morning patient still complaining of right-sided chest pain but no worsening continue to have a cough but no worsening sputum production abdominal pain or diarrhea. Patient did have a creatinine 1.04 sputum cultures currently pending Objective - Vital Signs Vital signs: Vital Signs Temp 97.7 F 02/18/25 12:39 Pulse 70 02/18/25 12:39 Resp 18 02/18/25 12:39 BP 97/54 02/18/25 12:39 Pulse Ox 94 L 02/18/25 12:39 FiO2 Intake & Output 02/17/25 02/18/25 02/18/25 18:59 06:59 18:59 Intake Total 540 Output Total 400 1650 Balance 140 -1650 Intake: Oral 540 Output: Urine 400 200 Other 1450 Other: Voiding Method Urinal Urinal Toilet # Voids 1 - Exam GENERAL DESCRIPTION: An elderly male up in the chair in no distress RESPIRATORY SYSTEM: Unlabored breathing , decreased breath sounds at bases HEART: S1 S2 regular rate and rhythm , ABDOMEN: Soft , no tenderness EXTREMITIES: No edema feet - Labs CBC & Chem 7: 02/16/25 23:20 02/18/25 08:41 Labs: Abnormal Lab Results - Last 24 Hours (Table) 02/18/25 Range/Units 04:15 Sodium 133 L (137-145) mmol/L Potassium 6.0 H (3.5-5.1) mmol/L Carbon Dioxide 20 L (22-30) mmol/L BUN 31 H (9-20) mg/dL Glucose 107 H (74-99) mg/dL Assessment and Plan (1) Pneumonia Current Visit: Yes Status: Acute Code(s): J18.9 - PNEUMONIA, UNSPECIFIED ORGANISM SNOMED Code(s): 408395505 Plan: 1patient presented to hospital with increasing shortness of breath he also have a cough bringing up thick sputum with evidence of constipation on the CT as well as effusion concerning for pneumonia likely community-acquired less likely aspiration etiology 2 sputum cultures obtained which are currently pending 3-patient be treated with Rocephin and Zithromax while waiting for the workup to be completed Dictation was produced using [employer] dictation software. please excuse any grammatical, word or spelling errors. Time with Patient: Less than 30
[2025-02-18] MEDS ORDERED: metroNIDAZOLE 500 MG TAB PO SCH (16:00)
--- NOTE | 2025-02-18 16:32 | P.PN ---
Subjective Progress Note Date: 02/18/25 A pulmonary consult was placed for suspected pneumonia. Patient is a 69-year-old male with past medical history significant for coronary artery disease with previous PCI/stenting and CABG, ischemic cardiopathy with ejection fraction of 20 to 25%, hyperlipidemia, hypertension, atrial fibrillation anticoagulated with Eliquis, left carotid artery stenosis, COPD, former tobacco dependence. Presented to the emergency department late last night with a chief complaint of shortness of breath. Workup including a chest CTA which did not show any evidence of filling defects consistent with pulmonary emboli. Continues to show small right-sided pleural effusion with airspace consolidation, reportedly conc erning for pneumonia versus compressive atelectasis. Of note, patient does have a recurrent right-sided pleural effusion, with multiple previous thoracentesis. Actually, did undergo right-sided thoracentesis on 02/06/2025, only 250 mL of fluid was removed from the pleural space at that time. Pleural fluid was technically an exudate based protein fluid analysis. Microbiology unremarkable. Fluid cytology also unremarkable for any malignant cells. Patient was discharged on 02/06/25 with directions to follow-up on an outpatient basis with Dr. Nugent in the pulmonary office. CBC: WBC count 5, hemoglobin 13.5, platelets 141. CMP: Sodium 135, potassium 4.5, chloride 104, serum bicarb 24, BUN 16, creatinine 0.86, glucose 93. LFTs not elevated. Troponin 0.018. NT proBNP 2390. Patient currently being evaluated in the emergency department. He is on room air. Resting comfortably, without any acute distress. Endorses progressively worsening shortness of breath over the last several days. Associated cough with minimal yellow sputum production. Denies any fevers or chills. Nonlocalized and constant chest pain reported since last Monday. Denies orthopnea, PND, or lower extremity edema. Normally, maintained on a combination of Coreg, Entresto, Aldactone on an outpatient basis. Vital signs: Afebrile, heart rate 80 bpm, blood pressure 118/70 mmHg, nontachypneic, SpO2 recorded at 94% on room air. 02/18/2025, the patient is being seen for a follow-up. The patient is doing wel l. No specific complaints. I performed a thoracentesis on the right lung and a total of 1.4 L of pleural fluid was aspirated without any complications. Subsequent chest x-ray shows diminution of the right-sided pleural effusion and there is no evidence of any pneumothorax. Sodium levels at 133, potassium level is down to 4.6. BUN 31 with a creatinine of 1.04. Viral screen has been negative. The patient has no specific complaints. He is on room air oxygen with a pulse ox of 94%. Tolerated the procedure without any significant complications. Objective - Vital Signs Vital signs: Vital Signs Temp 97.7 F 02/18/25 12:39 Pulse 70 02/18/25 12:39 Resp 18 02/18/25 12:39 BP 97/54 02/18/25 12:39 Pulse Ox 94 L 02/18/25 12:39 FiO2 Intake & Output 02/17/25 02/18/25 02/18/25 18:59 06:59 18:59 Intake Total 540 Output Total 400 200 Balance 140 -200 Intake: Oral 540 Output: Urine 400 200 Other: Voiding Method Urinal Urinal Toilet # Voids 1 - Exam ENERAL EXAM: Alert, pleasant 69-year-old male, on room air, fairly comfortable in no apparent distress. HEAD: Normocephalic. EYES: Normal reaction of pupils, equal size. NOSE: Clear with pink turbinates. THROAT: No erythema or exudates. NECK: No masses, no JVD. CHEST: No chest wall deformity. Remote appearing midsternal thoracotomy incision with healed left lateral thoracotomy incision. LUNGS: Equal air entry with, diminished in the right lung base. Inspi ratory/expiratory squeaking/grating heard best in supine position CVS: S1 and S2 normal with no audible murmur, regular rhythm. ABDOMEN: No hepatosplenomegaly, normal bowel sounds, no guarding or rigidity. SPINE: No scoliosis or deformity SKIN: No rashes CENTRAL NERVOUS SYSTEM: No focal deficits, tone is normal in all 4 extremities. EXTREMITIES: There is no peripheral edema. No clubbing, no cyanosis. Peripheral pulses are intact. - Labs CBC & Chem 7: 02/16/25 23:20 02/18/25 08:41 Labs: Abnormal Lab Results - Last 24 Hours (Table) 02/18/25 Range/Units 04:15 Sodium 133 L (137-145) mmol/L Potassium 6.0 H (3.5-5.1) mmol/L Carbon Dioxide 20 L (22-30) mmol/L BUN 31 H (9-20) mg/dL Glucose 107 H (74-99) mg/dL Assessment and Plan Assessment: Recurrent right-sided pleural effusion, small in size, with multiple previous thoracentesis, most recently done on 02/06/2025, approximately 250 mL of fluid was removed from the pleural space at that time. Pleural fluid was technically an exudate based protein fluid analysis. Microbiology unremarkable. Fluid cytology also unremarkable for any malignant cells. Another thoracentesis was performed today with a total of 1.4 L of pleural fluid was aspirated without any complications. Acute on chronic systolic congestive heart failure Acute on chronic dyspnea, secondary to above Coronary artery disease, with previous PCI/stenting and CABG over 20 years ago, subsequent two-vessel redo off-pump CABG April, Ischemic cardiomyopathy, echocardiogram from August, revealed a severely reduced left ventricular ejection fraction of 20 to 25%, as well as, moderate to severe mitral regurgitation Paroxysmal atrial fibrillation, currently sinus mechanism, anticoagulated on Eliquis Hypertension Hyperlipidemia Left internal carotid artery stenosis, 50-79% Former tobacco dependence Severe COPD , FEV1 43% of predicted Obstructive sleep apnea Chronic back pain with history of back surgery Plan: Remains on room air oxygen Recurrent right-sided pleural effusion with likely associated compressive atelectasis. Thoracentesis was done a total of 1.4 L of pleural fluid was aspirated No complications Shortness of breath improving Continues on Eliquis Continues on combination of Coreg, Entresto, Aldactone Further recommendations to follow Time with Patient: Greater than 30
--- NOTE | 2025-02-18 16:33 | P.PCN ---
Date of Procedure: 02/18/25 Preoperative Diagnosis: Pleural effusion right Postoperative Diagnosis: Pleural effusion right Procedure(s) Performed: Thoracentesis, right Anesthesia: local Surgeon: Katarina Wilson Estimated Blood Loss (ml): 0 Pathology: other Condition: stable Disposition: floor Operative Findings: A time out was performed and the chest x-ray was reviewed, the appropriate side was confirmed and marked. My hands were washed immediately prior to the procedure. I wore a surgical cap, mask with protective eyewear, sterile gown and sterile gloves throughout the procedure. The patient was prepped and draped in a sterile manner using chlorhexidine scrub after the appropriate level was percuss ed and confirmed by ultrasound. 1% lidocaine was used to anesthesize the skin, subcutaneous tissue, superior aspect of the rib periosteum and parietal pleura. A finder needle was then introduced over the superior aspect of the rib to locate the pleural fluid; 2colored fluid was aspirated at a depth of approximately 2 cm. A 10-blade scalpel was used to nanette the skin at the insertion site. The [id number] needle was then introduced through the skin incision into the pleural space using negative aspiration pressure and the red colometric indicator to confirm appropriate positioning of the needle. The thoracentesis catheter was then threaded without difficulty. 1400 ml of turbid colored fluid was removed without difficulty. The catheter was then removed. No immediate complications were noted during the procedure. A post-procedure chest x-ray is pending at the time of this note. The fluid will not be sent for studies. Estimated blood loss is 0cc
--- NOTE | 2025-02-18 21:13 | DS ---
DISCHARGE SUMMARY CHIEF COMPLAINT: Shortness of breath. HISTORY OF PRESENT ILLNESS AND PHYSICAL EXAMINATION: Details of this man's history and physical can be found in the initial workup. LABORATORY STUDIES: While he was in the hospital, he had laboratory studies, details of which can be found in the laboratory section of his chart. COURSE IN THE HOSPITAL: After admission, he was placed on bedrest and placed on telemetry. He was seen by Cardiology. He was also seen by Pulmonology. He was taken for a thoracentesis. It was not felt that he had an underlying pneumonitis. He is feeling well, breathing well and he was anxious to be discharged without any fever, chills, cough, etc., on the . He will go home on his usual activity, diet, medication even though he states that he was not taking it when he came in because he, "did not need it." He will follow up in several days. FINAL DIAGNOSES: 1. Shortness of breath. 2. Right pleural effusion. 3. Acute on chronic congestive heart failure with reduced ejection fraction. 4. Atherosclerotic cardiomyopathy. 5. Advanced coronary artery disease. 6. Chronic obstructive pulmonary disease. OPERATIONS: Thoracentesis. CONSULTATIONS: Cardiology and Pulmonology. MMODL / IJN: [id number] /
== END 2025-02-18 14:56 | disposition home or self-care (01) ==
LOC: EC 21:59 → 5NMEDONC 02-17 05:02
PROVIDERS: ADMIT Family Medicine; ATTEND Family Medicine
DX: J15.9 Unspecified bacterial pneumonia (principal); I11.0 Hypertensive heart disease with heart failure; I50.23 Acute on chronic systolic (congestive) heart failure; J91.8 Pleural effusion in other conditions classified elsewhere; J44.0 Chronic obstructive pulmonary disease with (acute) lower respiratory infection; J18.9 Pneumonia, unspecified organism; I25.10 Atherosclerotic heart disease of native coronary artery without angina pectoris; I25.5 Ischemic cardiomyopathy; I48.0 Paroxysmal atrial fibrillation; E78.5 Hyperlipidemia, unspecified; F32.A Depression, unspecified; F41.9 Anxiety disorder, unspecified; K21.9 Gastro-esophageal reflux disease without esophagitis; G47.33 Obstructive sleep apnea (adult) (pediatric); G89.29 Other chronic pain; I25.2 Old myocardial infarction; I34.0 Nonrheumatic mitral (valve) insufficiency; I65.22 Occlusion and stenosis of left carotid artery; Z87.891 Personal history of nicotine dependence; Z91.128 Patient's intentional underdosing of medication regimen for other reason; Z80.1 Family history of malignant neoplasm of trachea, bronchus and lung; Z91.148 Patient's other noncompliance with medication regimen for other reason; Z79.01 Long term (current) use of anticoagulants; Z79.82 Long term (current) use of aspirin; Z79.84 Long term (current) use of oral hypoglycemic drugs; Z79.899 Other long term (current) drug therapy; Z95.1 Presence of aortocoronary bypass graft; Z95.5 Presence of coronary angioplasty implant and graft; Z88.8 Allergy status to other drugs, medicaments and biological substances; Z91.040 Latex allergy status
CPT/HCPCS: 96376 ×3; 96366 ×3; 96367 ×2; 96365; 96375; 99285; 36415; 94640 ×4; 93005; 85379; 83880; 80053; 80048; 83690; 83735; 84132; 84484; 85025; 85610; 85730; 86140; 87070; 87205; 84145; 87636; 71045; 71046; 71275; 32555; G0378 ×2; J2270 ×2; J2405; J0456; J0696 ×2; Q9967; J1836 ×2; J2919

== ENCOUNTER 2025-02-25 11:56 | Day surgery (SDC) | payer MEDICARE, OTHER ==
[2025-02-24 14:22] VITALS: BMI 32.5
[2025-02-25] MEDS ORDERED: LACTATED RINGERS 1,000 ML IV SCH (12:15)
[2025-02-25 12:33] VITALS: TEMP 98.6
[2025-02-25] MEDS ORDERED: ROPIVACAINE 5 MG/ML 30 ML VIAL ONE (13:34)
[2025-02-25] MEDS ORDERED: IOPAMIDOL M200 10 ML VIAL ONE (13:34)
[2025-02-25] MEDS ORDERED: DEXAMETHASONE SOD PHOSPHATE 10 MG/ML 1 ML VIAL ONE (13:34)
--- NOTE | 2025-02-25 14:06 | P.PCN ---
Description of Procedure: PREOPERATIVE DIAGNOSIS: 1-Lumbar radiculopathy . 2-lumbar degenerative disc disease. 3-lumbar spondylosis with lumbar facet arthropathy without myelopathy POSTOPERATIVE DIAGNOSIS: 1-lumbar radiculopathy. 2-lumbar degenerative disc disease. 3-lumbar spondylosis with facet arthropathy without myelopathy PROCEDURE 1. Transforaminal epidural steroid injection under fluoroscopic guidance at LEFT L4-5, L5-S1 level. (Fluoroscopy images stored on file in the radiology Department ) 2. Lumbar epidurogram . ANESTHESIA: Local with 1% lidocaine 5 ml. subcutaneously. Continuous pulse ox, EKG, blood pressure and verbal communication was maintained with the patient. EBL: Minimal PROCEDURE INDICATION: The patient with low back pain and radiculopathy symptoms unresponsive to conservative treatment. The patient was seen and identified in the preoperative area. Risks, benefits, complications, and alternatives were discussed with the patient. The patient agreed to proceed with the procedure and signed the consent. IV was started, and vital signs were stable. PROCEDURE DESCRIPTION / TECHNIQUE: After getting consent, patient was taken to the OR and time out was completed. The patient was placed in the prone position on procedure table and a pillow was placed under the abdomen to reduce lumbar lordosis. The lumbosacral area was prepped and draped in the usual sterile fashion. Critical pause was taken. After injecting 5 mL of plain 1% lidocaine subcutaneously, under oblique view of the fluoroscope, a 22-gauge spinal needle was introduced under the tunnel view of the fluoroscope on the L4-5 LEFT side and the needle was advanced so that the tip of the needle was at the posterior inferior quadrant of the intervertebral foramen at the lateral view of the fluoroscope and in the lateral third of the facet column in the AP view of the fluoroscope. Negative CSF, negative blood, negative paresthesia. After needle position confirmation by AP and cross table lateral view, 3 mL of Isovue-M 200 contrast was injected under continuous fluoroscope. No contrast was noted in the intrathecal or intravascular space. The epidurogram was noted. Again after repeated negative aspiration 2.5 mL solution was injected which consists 1 mL of normal saline mixed with 1.5 mL of 15 mg dexamethasone. Needle was removed . Same procedure was repeated at the L5- S1 LEFT side at same level , using contrast under continuous fluoroscopy and using same amount of dexamethasone. At the end of the procedure, skin was cleansed, and bandages were applied. DISPOSITION / PLANS: No complication. The patient tolerated the procedure well. The patient was placed in a supine position and transferred to the recovery area in a stable condition for observation. There was no evidence of lower extremity motor or sensory deficit after the procedure. Patient was discharged from the recovery room after meeting discharge criteria. Home discharge instructions were given to the patient by the staff. The patient was reexamined prior to discharge.
[2025-02-25 14:16] VITALS: BP 136/77; PULSE 78; RESP 18
--- NOTE | 2025-02-25 14:17 | FL ---
EXAMINATION TYPE: FL guided pain mgmt statistic DATE OF EXAM: 02/25/2025 FLUOROSCOPY PAIN SERVICES LEFT TRANSFORAMINAL FL TIME 60.8 SECS DAP [id number] 3 images are submitted. [facility], , 02/25/2025 2:14 PM
== END 2025-02-25 14:25 | disposition home or self-care (01) ==
LOC: ORPAIN 11:56
PROVIDERS: ATTEND Pain Medicine Interventional Pain Medicine
DX: M47.26 Other spondylosis with radiculopathy, lumbar region (principal); M51.16 Intervertebral disc disorders with radiculopathy, lumbar region; Z91.040 Latex allergy status
CPT/HCPCS: 64483; 64484; J1100; J2795; Q9966

== ENCOUNTER 2025-02-27 03:10 | Emergency (ER) | payer MEDICARE, OTHER ==
[2025-02-27 04:14] LABS: Basophils # (A) 0.03 10*3/uL (0.00-0.10); Basophils % (A) 0.2 %; HCT 45.6 % (39.6-50.0); Lymphocytes % (A) 4.6 %; MCHC 32.9 g/dL (32.0-37.0); Mean Platelet Volume 11.2 fL (9.5-12.2); Monocytes % (A) 6.2 %; Neutrophils # (A) 17.27 10*3/uL (1.80-7.70); Neutrophils % (A) 88.4 %; Platelet Count 199 10*3/uL (140-440); RBC 5.56 10*6/uL (4.40-5.60); RDW 17.1 % (11.5-14.5); WBC 19.51 10*3/uL (4.50-10.00)
[2025-02-27 04:18] LABS: ALT 24 U/L (4-49); AST 32 U/L (17-59); African American GFR (CKD) >90 (>60 ml/min/1.73 sqM); Albumin 4.6 g/dL (3.5-5.0); Alkaline Phosphatase 155 U/L (38-126); Anion Gap 12 mmol/L; Blood Urea Nitrogen 22 mg/dL (9-20); Carbon Dioxide 20 mmol/L (22-30); Chloride 105 mmol/L (98-107); Glucose 111 mg/dL (74-99); Non-African American GFR(CKD) >90 (>60 ml/min/1.73 sqM); Potassium 4.8 mmol/L (3.5-5.1); Sodium 137 mmol/L (137-145); Total Bilirubin 0.9 mg/dL (0.2-1.3); Total Protein 8.2 g/dL (6.3-8.2)
[2025-02-27 04:27] LABS: NT-Pro-B-Type Natriuretic Pept 2510 pg/mL
[2025-02-27 04:31] LABS: INR 0.9 (<1.2); Partial Thromboplastin Time 23.7 sec (22.0-30.0); Prothrombin Time 10.5 sec (10.0-12.5)
--- NOTE | 2025-02-27 04:54 | ED ---
SOB HPI - General Chief Complaint: Shortness of Breath Stated Complaint: SOB, poss allergic reaction Time Seen by Provider: 02/27/25 03:41 Source: patient Mode of arrival: wheelchair Limitations: no limitations - History of Present Illness Initial Comments: This patient is a 69-year-old man who presents with complaint that he is feeling short of breath. He also has not been sleeping well. He states that he had received steroid injections in his back 3 days ago and since that time has not felt right. He is concerned he is having allergic reaction to the injections. The patient denies fever or chills. There is mild chest tightness. Does have C OPD but no change in cough. MD Complaint: shortness of breath, chest pain Onset/Timin -: days(s) Severity: mild Quality: aching Consistency: intermittent Worsens With: nothing Known History Of: COPD Associated Symptoms: chest pain Treatments Prior to Arrival: other (Steroid injections) - Related Data Home Medications Medication Instructions Recorded Confirmed Apixaban [Eliquis] 2.5 mg PO BID 12/07/24 03/05/25 Atorvastatin [Lipitor] 40 mg PO DAILY 03/02/25 03/05/25 Budesonide/Formoterol Fumarate 2 puff INHALATION RT-BID 03/02/25 03/05/25 [Symbicort 160-4.5 Mcg Inhaler] Dapagliflozin Propanediol [Farxiga] 10 mg PO DAILY 03/02/25 03/05/25 Folic Acid 1 mg PO DAILY 03/02/25 03/05/25 Furosemide [Lasix] 40 mg PO DAILY 03/02/25 03/05/25 Sacubitril/Valsartan [Entresto 24 1 tab PO BID 03/02/25 03/05/25 mg-26 mg Tablet] Sodium Bicarbonate Tab 650 mg PO TID 03/02/25 03/05/25 Spironolactone [Aldactone] 25 mg PO DAILY 03/02/25 03/05/25 carvediloL [Coreg] 3.125 mg PO BID 03/02/25 03/05/25 hydrOXYzine HCL [Atarax] 50 mg PO HS PRN 03/02/25 03/05/25 oxyCODONE-APAP 5-325MG [Percocet 1 tab PO Q6H PRN 03/02/25 03/05/25 5-325 mg] Previous Rx's Medication Instructions Recorded QUEtiapine [SEROquel] 100 mg PO BID 30 Days tab 03/07/25 Allergies Allergy/AdvReac Type Severity Reaction Status Date / Time latex Allergy Swelling Verified 03/15/25 00:40 atorvastatin [From Lipitor] AdvReac JOINT PAIN Verified 03/15/25 00:40 Review of Systems ROS Statement: Those systems with pertinent positive or pertinent negative responses have been documented in the HPI. ROS Other: All systems not noted in ROS Statement are negative. Constitutional: Denies: fever, chills, weakness Respiratory: Reports: as per HPI, cough, dyspnea Cardiovascular: Denies: chest pain, palpitations, edema Gastrointestinal: Denies: abdominal pain, vomiting, diarrhea Genitourinary: Denies: dysuria, hematuria Musculoskeletal: Reports: back pain (Chronic) Skin: Denies: rash Neurological: Denies: headache Past Medical History Past Medical History: Coronary Artery Disease (CAD), Chest Pain / Angina, Heart Failure, COPD, GERD/Reflux, Hyperlipidemia, Hypertension, Myocardial Infarction ([place]), Osteoarthritis (OA), Sleep Apnea/CPAP/BIPAP Additional Past Medical History / Comment(s): Chronic back pain, left leg weakness. O2 as needed, 3LNC. States unsure about having had a heart attack. Uses CPAP Last Myocardial Infarction Date:: 11/11/22 History of Any Multi-Drug Resistant Organisms: None Reported Past Surgical History: Back Surgery, Cholecystectomy, Coronary Bypass/CABG, Heart Catheterization With Stent Additional Past Surgical History / Comment(s): Back surgery X2 with cage, left tennis elbow surgery, heart stents X7, colonoscopy. [facility] Past Anesthesia/Blood Transfusion Reactions: No Reported Reaction Additional Past Anesthesia/Blood Transfusion Reaction / Comment(s): Pt received blood during CABG without reaction. Pt states,"I can't have anymore surgeries becuase I stop breathing." "That's what they told my fiance'" Date of Last Stent Placement:: Oct 2022 Past Psychological History: Anxiety, Depression, PTSD Smoking Status: Current every day smoker, Vaper Past Alcohol Use History: None Reported Past Drug Use History: None Reported - Past Family History Father Family Medical History: Coronary Artery Disease (CAD), Deep Vein Thrombosis (DVT), GERD/Reflux, Hyperlipidemia, Myocardial Infarction ([place]) Additional Family Medical History / Comment(s): Father of a [place] in his 80's. Mother Family Medical History: Coronary Artery Disease (CAD), Myocardial Infarction ([place]) Additional Family Medical History / Comment(s): Mother of a [place]. Brother(s) Family Medical History: Myocardial Infarction ([place]) Additional Family Medical History / Comment(s): . Sister(s) Family Medical History: Cancer, Diabetes Mellitus Additional Family Medical History / Comment(s): Lung cancer. Other sister had Diabetes. General Exam Limitations: no limitations General appearance: alert, in no apparent distress Head exam: Present: atraumatic, normocephalic Eye exam: Present: normal appearance. Absent: scleral icterus, conjunctival injection ENT exam: Present: normal oropharynx Neck exam: Present: normal inspection Respiratory exam: Present: wheezes. Absent: respiratory distress, rales, rhonchi, stridor, accessory muscle use Cardiovascular Exam: Present: regular rate, normal rhythm, normal heart sounds. Absent: systolic murmur, diastolic murmur, rubs, gallop GI/Abdominal exam: Present: soft. Absent: distended, tenderness, guarding, rebound Extremities exam: Present: normal inspection, normal capillary refill. Absent: pedal edema, calf tenderness Back exam: Present: normal inspection. Absent: CVA tenderness (R), CVA tenderness (L) Neurological exam: Present: alert Skin exam: Present: warm, dry, intact, normal color. Absent: rash Course Vital Signs 02/27/25 02/27/25 02/27/25 03:25 04:00 04:28 Temperature 98.0 F Pulse Rate 86 75 Respiratory 18 16 18 Rate Blood Pressure 143/85 109/60 O2 Sat by Pulse 96 97 Oximetry 02/27/25 02/27/25 02/27/25 06:00 07:31 08:01 Temperature 98.0 F 97.8 F Pulse Rate 90 103 H Respiratory 18 16 Rate Blood Pressure 136/83 143/88 O2 Sat by Pulse 95 95 Oximetry Medical Decision Making - Medical Decision Making The patient had chest x-ray that I interpreted as negative for acute infiltrate, pneumothorax, congestive heart failure Was pt. sent in by a medical professional or institution (, PA, [employer], urgent care, hospital, or retirement...) When possible be specific @ -[No] Did you speak to anyone other than the patient for history (EMS, parent, family, police, friend...)? What history was obtained from this source @ -[No] Did you review nursing and triage notes (agree or disagree)? Why? @ -[I reviewed and agree with nursing and triage notes] Were old charts reviewed (outside hosp., previous admission, EMS record, old EKG, old radiological studies, urgent care reports/EKG's, retirement records)? Report findings @ -[No old charts were reviewed] Differential Diagnosis (chest pain, altered mental status, abdominal pain women, abdominal pain men, vaginal bleeding, weakness, fever, dyspnea, syncope, headache, dizziness, GI bleed, back pain, seizure, CVA, palpatations, mental health, musculoskeletal)? @ -[Differential Dyspnea: Coronary syndrome, arrhythmia, tamponade, asthma, COPD, pulmonary embolism, pneumonia, pneumothorax, pulmonary effusion, anaphylaxis, diabetic ketoacidosis, flailed chest, pulmonary contusion, diaphragmatic rupture, anemia, neuromuscular, this is not meant to be an all-inclusive list. EKG interpreted by me (3pts min.). @ -[I interpreted as above] X-rays interpreted by me (1pt min.). @ -[None done] CT interpreted by me (1pt min.). @ -[None done] U/S interpreted by me (1pt. min.). @ -[None done] What testing was considered but not performed or refused? (CT, X-rays, U/S, labs)? Why? @ -[None] What meds were considered but not given or refused? Why? @ -[None] Did you discuss the management of the patient with other professionals (professionals i.e. , PA, [employer], lab, RT, psych nurse, psychiatric social worker, attorney lawyer, teacher, civil preparedness officer, child welfare caseworker)? Give summary @ -[No] Was smoking cessation discussed for >3mins.? @ -[No] Was critical care preformed (if so, how long)? @ -[No] Were there social determinants of health that impacted care today? How? (Homelessness, low income, unemployed, alcoholism, drug addiction, transportation, low edu. Level, literacy, decrease access to med. care, group home, rehab)? @ -[No] Was there de-escalation of care discussed even if they declined (Discuss DNR or withdrawal of care, Hospice)? DNR status @ -[No] What co-morbidities impacted this encounter? (DM, HTN, Smoking, COPD, CAD, Cancer, CVA, ARF, Chemo, Hep., AIDS, mental health diagnosis, sleep apnea, morbid obesity)? @ -[None] Was patient admitted / discharged? Hospital course, mention meds given and route, prescriptions, significant lab abnormalities, going to OR and other pert inent info. @ -[Patient is a 69-year-old man here with dyspnea, concerns about allergic reaction to his steroid injections. The history and physical more consistent with side effect including insomnia and mild manic symptoms. The workup does show leukocytosis but this related to the steroid rather than evidence of infection. The patient feeling better and stable to continue at home. Discussed appropriate further care and follow-up as well as return parameters. Undiagnosed new problem with uncertain prognosis? @ -[No] Drug Therapy requiring intensive monitoring for toxicity (Heparin, Nitro, Insulin, Cardizem)? @ -[No] Were any procedures done? @ -[No] Diagnosis/symptom? @ -[default] Acute, or Chronic, or Acute on Chronic? @ -[default] Uncomplicated (without systemic symptoms) or Complicated (systemic symptoms)? @ -[default] Side effects of treatment? @ -[No] Exacerbation, Progression, or Severe Exacerbation? @ -[No] Poses a threat to life or bodily function? How? (Chest pain, [place], [place], pneumonia, PE, COPD, DKA, ARF, appy, cholecystitis, CVA, Diverticulitis, Homicidal, Suic idal, threat to staff... and all critical care pts) @ -[No] All treatments are based on ideal body weight as in ED triage - Lab Data Result diagrams: 02/27/25 03:47 02/27/25 03:47 Lab Results 02/27/25 02/27/25 02/27/25 Range/Units 03:47 03:47 03:47 WBC 19.51 H (4.50-10.00) 10*3/uL RBC 5.56 (4.40-5.60) 10*6/uL Hgb 15.0 (13.0-17.0) g/dL Hct 45.6 (39.6-50.0) % MCV 82.0 (80.0-97.0) fL MCH 27.0 (27.0-32.0) pg MCHC 32.9 (32.0-37.0) g/dL Plt Count 199 (140-440) 10*3/uL MPV 11.2 (9.5-12.2) fL Immature Gran % (Auto) 0.6 % Neutrophils % 88.4 % Lymphocytes % 4.6 % Monocytes % 6.2 % Eosinophils % 0.0 % Basophils % 0.2 % Immature Gran # 0.11 H (0.00-0.04) 10*3/uL Neutrophils # 17.27 H (1.80-7.70) 10*3/uL Lymphocytes # 0.90 (0.90-5.00) 10*3/uL Monocytes # 1.20 H (0.20-1.00) 10*3/uL Eosinophils # 0.00 L (0.04-0.35) 10*3/uL Basophils # 0.03 (0.00-0.10) 10*3/uL PT 10.5 (10.0-12.5) sec INR 0.9 (<1.2) APTT 23.7 (22.0-30.0) sec Sodium 137 (137-145) mmol/L Potassium 4.8 (3.5-5.1) mmol/L Chloride 105 (98-107) mmol/L Carbon Dioxide 20 L (22-30) mmol/L Anion Gap 12 mmol/L BUN 22 H (9-20) mg/dL Creatinine 0.75 (0.66-1.25) mg/dL Est GFR (CKD-EPI)AfAm >90 (>60 ml/min/1.73 sqM) Est GFR (CKD-EPI)NonAf >90 (>60 ml/min/1.73 sqM) Glucose 111 H (74-99) mg/dL Plasma Lactic Acid Tomy (0.7-2.0) mmol/L Calcium 10.0 (8.4-10.2) mg/dL Total Bilirubin 0.9 (0.2-1.3) mg/dL AST 32 (17-59) U/L ALT 24 (4-49) U/L Alkaline Phosphatase 155 H (38-126) U/L Troponin I (0.000-0.034) ng/mL NT-Pro-B Natriuret Pep 2510 pg/mL Total Protein 8.2 (6.3-8.2) g/dL Albumin 4.6 (3.5-5.0) g/dL 02/27/25 02/27/25 Range/Units 03:47 03:47 WBC (4.50-10.00) 10*3/uL RBC (4.40-5.60) 10*6/uL Hgb (13.0-17.0) g/dL Hct (39.6-50.0) % MCV (80.0-97.0) fL MCH (27.0-32.0) pg MCHC (32.0-37.0) g/dL Plt Count (140-440) 10*3/uL MPV (9.5-12.2) fL Immature Gran % (Auto) % Neutrophils % % Lymphocytes % % Monocytes % % Eosinophils % % Basophils % % Immature Gran # (0.00-0.04) 10*3/uL Neutrophils # (1.80-7.70) 10*3/uL Lymphocytes # (0.90-5.00) 10*3/uL Monocytes # (0.20-1.00) 10*3/uL Eosinophils # (0.04-0.35) 10*3/uL Basophils # (0.00-0.10) 10*3/uL PT (10.0-12.5) sec INR (<1.2) APTT (22.0-30.0) sec Sodium (137-145) mmol/L Potassium (3.5-5.1) mmol/L Chloride (98-107) mmol/L Carbon Dioxide (22-30) mmol/L Anion Gap mmol/L BUN (9-20) mg/dL Creatinine (0.66-1.25) mg/dL Est GFR (CKD-EPI)AfAm (>60 ml/min/1.73 sqM) Est GFR (CKD-EPI)NonAf (>60 ml/min/1.73 sqM) Glucose (74-99) mg/dL Plasma Lactic Acid Tomy 1.5 (0.7-2.0) mmol/L Calcium (8.4-10.2) mg/dL Total Bilirubin (0.2-1.3) mg/dL AST (17-59) U/L ALT (4-49) U/L Alkaline Phosphatase (38-126) U/L Troponin I 0.022 (0.000-0.034) ng/mL NT-Pro-B Natriuret Pep pg/mL Total Protein (6.3-8.2) g/dL Albumin (3.5-5.0) g/dL - EKG Data -: EKG Interpreted by Or EKG shows normal: sinus rhythm, axis (Left axis deviation), intervals (MS interval 135 ms, normal QTc 446 ms, normal. QRS duration 117 ms, borderline prolonged), QRS complexes (Low voltage QRS complexes probable anterolateral. [place] based on Q waves) Rate: normal (Rate 82 bpm) Disposition Clinical Impression: Chest pain, Steroid side effects Disposition: HOME SELF-CARE Condition: Fair Instructions (If sedation given, give patient instructions): Chest Pain (ED), Insomnia (ED) Is patient prescribed a controlled substance at d/c from ED?: No Referrals: Alexx Gee MD [Primary Care Provider] - 1-2 days
[2025-02-27] MEDS: HYDROcodone/APAP 5-325MG 1 EACH TAB PO STA (05:11)
--- NOTE | 2025-02-27 05:45 | XR ---
EXAM: XR Chest, 2 Views CLINICAL HISTORY: difficulty breathing TECHNIQUE: Frontal and lateral views of the chest. COMPARISON: CTA chest from 02-17-25 FINDINGS: Lungs: small amount of bibasilar atelectasis. Pleural space: Small right pleural effusion. Mediastinum: Unremarkable. Normal mediastinal contour. Bones/joints: Sternal wires. IMPRESSION: Persistent small right pleural effusion.
[2025-02-27 07:33] VITALS: BP 143/88; PULSE 103; RESP 16
[2025-02-27] MEDS: KETOROLAC 15 MG/ML 1 ML VIAL IVP STA (07:33)
[2025-02-27] MEDS: HYDROmorphone 0.5 MG/0.5 ML SYRINGE IVP STA (07:38)
[2025-02-27] MEDS: MORPHINE SULFATE 4 MG/ML SYRINGE IV STA (07:40)
[2025-02-27 08:02] VITALS: TEMP 97.8
== END 2025-02-27 08:02 | disposition home or self-care (01) ==
LOC: EC 03:10
DX: R07.9 Chest pain, unspecified (principal); Z92.241 Personal history of systemic steroid therapy; F17.290 Nicotine dependence, other tobacco product, uncomplicated; Z91.040 Latex allergy status; Z88.8 Allergy status to other drugs, medicaments and biological substances
CPT/HCPCS: 36415; 93005; 83880; 80053; 83605; 84484; 85025; 85610; 85730; 71046; 99285; 96374; 96375; J2270; J1885

== ENCOUNTER 2025-03-01 18:09 | Observation (INO) | payer MEDICARE, OTHER ==
[2025-03-01] MEDS: ONDANSETRON 4 MG/2 ML VIAL IVP STA (18:24)
[2025-03-01] MEDS: MORPHINE SULFATE 4 MG/ML SYRINGE IVP STA (18:25)
[2025-03-01 18:26] LABS: Glucose,Whole Blood 137 mg/dL (70-110)
[2025-03-01] MEDS: ASPIRIN 81 MG PO STA (18:27)
--- NOTE | 2025-03-01 18:28 | ED ---
General Adult HPI - General Chief complaint: Syncope Stated complaint: AMS Time Seen by Provider: 03/01/25 18:15 Source: EMS Mode of arrival: EMS Limitations: no limitations - History of Present Illness Initial comments: 69-year-old male with past medical history of coronary artery disease, congestive heart failure, COPD who presents to the emergency department with chest pain. He called EMS for chest pain and shortness of breath. When they got on scene the patient ended up having a syncopal episode. Patient was confused when he came to. Twelve-lead EKG was performed which demonstrated no acute abnormality. Patient states he did not take anything at home as he could not find his nitro. He admits to nausea. No numbness, tingling or weakness in the extremities. No ripping or tearing sensation to his back. He denies any headache or visual changes. No lateralizing weakness. No other alleviating, precipitating or modifying factors - Related Data Home Medications Medication Instructions Recorded Confirmed ALPRAZolam [Xanax] 2 mg PO BID 07/27/24 02/24/25 Aspirin EC [Ecotrin Low Dose] 81 mg PO QAM 09/05/24 02/24/25 Apixaban [Eliquis] 2.5 mg PO BID 12/07/24 02/24/25 Albuterol Sulfate [Albuterol 2 puff INHALATION RT-QID PRN 12/17/24 02/24/25 Sulfate Hfa] Gabapentin [Neurontin] 100 mg PO BID 12/17/24 02/24/25 Previous Rx's Medication Instructions Recorded hydrOXYzine HCL [Atarax] 50 mg PO DIRECTED PRN #7 tablet 02/27/25 Allergies Allergy/AdvReac Type Severity Reaction Status Date / Time latex Allergy Swelling Verified 03/01/25 18:17 atorvastatin [From Lipitor] AdvReac JOINT PAIN Verified 03/01/25 18:17 Review of Systems ROS Statement: Those systems with pertinent positive or pertinent negative responses have been documented in the HPI. ROS Other: All systems not noted in ROS Statement are negative. Past Medical History Past Medical History: Coronary Artery Disease (CAD), Chest Pain / Angina, Heart Failure, COPD, GERD/Reflux, Hyperlipidemia, Hypertension, Myocardial Infarction ([place]), Osteoarthritis (OA), Sleep Apnea/CPAP/BIPAP Additional Past Medical History / Comment(s): Chronic back pain, left leg weakness. O2 as needed, 3LNC. States unsure about having had a heart attack. Uses CPAP Last Myocardial Infarction Date:: 11/11/22 History of Any Multi-Drug Resistant Organisms: None Reported Past Surgical History: Back Surgery, Cholecystectomy, Coronary Bypass/CABG, Heart Catheterization With Stent Additional Past Surgical History / Comment(s): Back surgery X2 with cage, left tennis elbow surgery, heart stents X7, colonoscopy. Open heart surgeryx2. emergency CABG [facility], thrombectomy. April Past Anesthesia/Blood Transfusion Reactions: No Reported Reaction Additional Past Anesthesia/Blood Transfusion Reaction / Comment(s): Pt received blood during CABG without reaction. Pt states,"I can't have anymore surgeries becuase I stop breathing." "That's what they told my fiance'" Date of Last Stent Placement:: Oct 2022 Past Psychological History: Anxiety, Depression, PTSD Smoking Status: Current every day smoker, Vaper Past Alcohol Use History: None Reported Past Drug Use History: None Reported - Past Family History Father Family Medical History: Coronary Artery Disease (CAD), Deep Vein Thrombosis (DVT), GERD/Reflux, Hyperlipidemia, Myocardial Infarction ([place]) Additional Family Medical History / Comment(s): Father of a [place] in his 80's. Mother Family Medical History: Coronary Artery Disease (CAD), Myocardial Infarction ([place]) Additional Family Medical History / Comment(s): Mother of a [place]. Brother(s) Family Medical History: Myocardial Infarction ([place]) Additional Family Medical History / Comment(s): . Sister(s) Family Medical History: Cancer, Diabetes Mellitus Additional Family Medical History / Comment(s): Lung cancer. Other sister had Diabetes. General Exam Limitations: no limitations Course Vital Signs 03/01/25 18:10 Pulse Rate 90 Respiratory 20 Rate Blood Pressure 166/88 O2 Sat by Pulse 98 Oximetry Medical Decision Making - Medical Decision Making Was pt. sent in by a medical professional or institution (, ROBERT, HEAD BATCHER, urgent care, hospital, or senior care...) When possible be specific @ -[No] Did you speak to anyone other than the patient for history (EMS, parent, family, police, friend...)? What history was obtained from this source @ -[No] Did you review nursing and triage notes (agree or disagree)? Why? @ -[I reviewed and agree with nursing and triage notes] Were old charts reviewed (outside hosp., previous admission, EMS record, old EKG, old radiological studies, urgent care reports/EKG's, senior care records)? Report findings @ -[No old charts were reviewed] Differential Diagnosis (chest pain, altered mental status, abdominal pain women, abdominal pain men, vaginal bleeding, weakness, fever, dyspnea, syncope, headache, dizziness, GI bleed, back pain, seizure, CVA, palpatations, mental health, musculoskeletal)? @ -[not applicable] EKG interpreted by me (3pts min.). @ -EKG completed at 1811 demonstrates significant baseline artifact which is difficult to interpret. Rate of 87. QRS of 105. QTc of 442. Repeat EKG done at 1814 demonstrates sinus rhythm with a biphasic T wave in lead V2. Rate of 86. [place] interval 125. QRS 110. QTc of 434. J-point elevation in 1 and aVL however this is preceded by a Q wave X-rays interpreted by me (1pt min.). @ -[None done] CT interpreted by me (1pt min.). @ -[None done] U/S interpreted by me (1pt. min.). @ -[None done] What testing was considered but not performed or refused? (CT, X-rays, U/S, labs)? Why? @ -[None] What meds were considered but not given or refused? Why? @ -[None] Did you discuss the management of the patient with other professionals (professionals i.e. , PA, HEAD BATCHER, lab, RT, psych nurse, social services specialist, guidance secretary, teacher, mechanical engineering officer, pillowcase folder)? Give summary @ -[No] Was smoking cessation discussed for >3mins.? @ -[No] Was critical care preformed (if so, how long)? @ -[No] Were there social determinants of health that impacted care today? How? (Homelessness, low income, unemployed, alcoholism, drug addiction, transportation, low edu. Level, literacy, decrease access to med. care, nursing home, rehab)? @ -[No] Was there de-escalation of care discussed even if they declined (Discuss DNR or withdrawal of care, Hospice)? DNR status @ -[No] What co-morbidities impacted this encounter? (DM, HTN, Smoking, COPD, CAD, Cancer, CVA, ARF, Chemo, Hep., AIDS, mental health diagnosis, sleep apnea, morbid obesity)? @ -[None] Was patient admitted / discharged? Hospital course, mention meds given and route, prescriptions, significant lab abnormalities, going to OR and other pertinent info. @ -[hospital course] Undiagnosed new problem with uncertain prognosis? @ -[No] Drug Therapy requiring intensive monitoring for toxicity (Heparin, Nitro, Insulin, Cardizem)? @ -[No] Were any procedures done? @ -[No] Diagnosis/symptom? @ -[default] Acute, or Chronic, or Acute on Chronic? @ -[default] Uncomplicated (without systemic symptoms) or Complicated (systemic symptoms)? @ -[default] Side effects of treatment? @ -[No] Exacerbation, Progression, or Severe Exacerbation? @ -[No] Poses a threat to life or bodily function? How? (Chest pain, [place], [place], pneumonia, PE, COPD, DKA, ARF, appy, cholecystitis, CVA, Diverticulitis, Homicidal, Suicidal, threat to staff... and all critical care pts) @ -[No] - Lab Data Result diagrams: 03/01/25 18:23 03/01/25 18:23 Lab Results 03/01/25 03/01/25 03/01/25 Range/Units 18:19 18:23 18:23 WBC 8.86 (4.50-10.00) 10*3/uL RBC 5.90 H (4.40-5.60) 10*6/uL Hgb 16.1 (13.0-17.0) g/dL Hct 47.9 (39.6-50.0) % MCV 81.2 (80.0-97.0) fL MCH 27.3 (27.0-32.0) pg MCHC 33.6 (32.0-37.0) g/dL Plt Count 181 (140-440) 10*3/uL MPV 11.2 (9.5-12.2) fL Immature Gran % (Auto) 0.3 % Neutrophils % 73.4 % Lymphocytes % 17.7 % Monocytes % 7.4 % Eosinophils % 0.7 % Basophils % 0.5 % Immature Gran # 0.03 (0.00-0.04) 10*3/uL Neutrophils # 6.50 (1.80-7.70) 10*3/uL Lymphocytes # 1.57 (0.90-5.00) 10*3/uL Monocytes # 0.66 (0.20-1.00) 10*3/uL Eosinophils # 0.06 (0.04-0.35) 10*3/uL Basophils # 0.04 (0.00-0.10) 10*3/uL PT 10.9 (10.0-12.5) sec INR 1.0 (<1.2) APTT 24.6 (22.0-30.0) sec Sodium (137-145) mmol/L Potassium (3.5-5.1) mmol/L Chloride (98-107) mmol/L Carbon Dioxide (22-30) mmol/L Anion Gap mmol/L BUN (9-20) mg/dL Creatinine (0.66-1.25) mg/dL Est GFR (CKD-EPI)AfAm (>60 ml/min/1.73 sqM) Est GFR (CKD-EPI)NonAf (>60 ml/min/1.73 sqM) Glucose (74-99) mg/dL POC Glucose (mg/dL) 137 H (70-110) mg/dL POC Glu Global Account Manager ID January Calcium (8.4-10.2) mg/dL Magnesium (1.6-2.3) mg/dL Total Bilirubin (0.2-1.3) mg/dL AST (17-59) U/L ALT (4-49) U/L Alkaline Phosphatase (38-126) U/L Troponin I (0.000-0.034) ng/mL NT-Pro-B Natriuret Pep pg/mL Total Protein (6.3-8.2) g/dL Albumin (3.5-5.0) g/dL Lipase (23-300) U/L 03/01/25 03/01/25 Range/Units 18:23 18:23 WBC (4.50-10.00) 10*3/uL RBC (4.40-5.60) 10*6/uL Hgb (13.0-17.0) g/dL Hct (39.6-50.0) % MCV (80.0-97.0) fL MCH (27.0-32.0) pg MCHC (32.0-37.0) g/dL Plt Count (140-440) 10*3/uL MPV (9.5-12.2) fL Immature Gran % (Auto) % Neutrophils % % Lymphocytes % % Monocytes % % Eosinophils % % Basophils % % Immature Gran # (0.00-0.04) 10*3/uL Neutrophils # (1.80-7.70) 10*3/uL Lymphocytes # (0.90-5.00) 10*3/uL Monocytes # (0.20-1.00) 10*3/uL Eosinophils # (0.04-0.35) 10*3/uL Basophils # (0.00-0.10) 10*3/uL PT (10.0-12.5) sec INR (<1.2) APTT (22.0-30.0) sec Sodium 138 (137-145) mmol/L Potassium 4.0 (3.5-5.1) mmol/L Chloride 104 (98-107) mmol/L Carbon Dioxide 18 L (22-30) mmol/L Anion Gap 16 mmol/L BUN 19 (9-20) mg/dL Creatinine 0.85 (0.66-1.25) mg/dL Est GFR (CKD-EPI)AfAm >90 (>60 ml/min/1.73 sqM) Est GFR (CKD-EPI)NonAf >90 (>60 ml/min/1.73 sqM) Glucose 147 H (74-99) mg/dL POC Glucose (mg/dL) (70-110) mg/dL POC Glu Global Account Manager ID Calcium 9.9 (8.4-10.2) mg/dL Magnesium 2.0 (1.6-2.3) mg/dL Total Bilirubin 1.1 (0.2-1.3) mg/dL AST 38 (17-59) U/L ALT 31 (4-49) U/L Alkaline Phosphatase 142 H (38-126) U/L Troponin I 0.023 (0.000-0.034) ng/mL NT-Pro-B Natriuret Pep 1850 pg/mL Total Protein 7.9 (6.3-8.2) g/dL Albumin 4.5 (3.5-5.0) g/dL Lipase 126 (23-300) U/L Disposition Clinical Impression: Systolic congestive heart failure, Chest pain, Syncope, Pleural effusion Disposition: ADMITTED IP TO THIS [facility] Condition: Stable Is patient prescribed a controlled substance at d/c from ED?: No Time of Disposition: 21:06 Decision to Admit Reason: Admit from EC Decision Date: 03/01/25 Decision Time: 21:06
[2025-03-01 18:32] LABS: Basophils # (A) 0.04 10*3/uL (0.00-0.10); Basophils % (A) 0.5 %; Eosinophils # (A) 0.06 10*3/uL (0.04-0.35); Eosinophils % (A) 0.7 %; HCT 47.9 % (39.6-50.0); HGB 16.1 g/dL (13.0-17.0); Lymphocytes # (A) 1.57 10*3/uL (0.90-5.00); Lymphocytes % (A) 17.7 %; MCH 27.3 pg (27.0-32.0); MCHC 33.6 g/dL (32.0-37.0); MCV 81.2 fL (80.0-97.0); Mean Platelet Volume 11.2 fL (9.5-12.2); Monocytes # (A) 0.66 10*3/uL (0.20-1.00); Monocytes % (A) 7.4 %; Neutrophils % (A) 73.4 %; Platelet Count 181 10*3/uL (140-440); RDW 17.2 % (11.5-14.5); WBC 8.86 10*3/uL (4.50-10.00)
[2025-03-01 18:43] LABS: Partial Thromboplastin Time 24.6 sec (22.0-30.0); Prothrombin Time 10.9 sec (10.0-12.5)
[2025-03-01 18:52] LABS: ALT 31 U/L (4-49); AST 38 U/L (17-59); African American GFR (CKD) >90 (>60 ml/min/1.73 sqM); Albumin 4.5 g/dL (3.5-5.0); Alkaline Phosphatase 142 U/L (38-126); Anion Gap 16 mmol/L; Blood Urea Nitrogen 19 mg/dL (9-20); Calcium 9.9 mg/dL (8.4-10.2); Carbon Dioxide 18 mmol/L (22-30); Chloride 104 mmol/L (98-107); Glucose 147 mg/dL (74-99); Lipase 126 U/L (23-300); Non-African American GFR(CKD) >90 (>60 ml/min/1.73 sqM); Sodium 138 mmol/L (137-145); Total Bilirubin 1.1 mg/dL (0.2-1.3); Total Protein 7.9 g/dL (6.3-8.2)
[2025-03-01 19:01] LABS: NT-Pro-B-Type Natriuretic Pept 1850 pg/mL
--- NOTE | 2025-03-01 19:27 | XR ---
EXAMINATION TYPE: XR chest 2V DATE OF EXAM: 03/01/2025 7:01 PM COMPARISON: Chest radiographs from 02/27/2025 CLINICAL INDICATION: Male, 69 years old with history of Chest Pain; TECHNIQUE: XR chest 2V Frontal and lateral views of the chest. FINDINGS: Lungs/Pleura: Blunting of the right costophrenic angle. There is no evidence of left pleural effusio n, focal consolidation, or pneumothorax Pulmonary vascularity: Unremarkable. Heart/mediastinum: Cardiomediastinal silhouette is prominent in size. Musculoskeletal: No acute osseous pathology. IMPRESSION: Moderate right pleural effusion. [facility], , 03/01/2025 7:25 PM
[2025-03-01] MEDS ORDERED: NALOXONE 0.4 MG/ML 1 ML VIAL IV PRN (21:06)
[2025-03-01] MEDS: APIXABAN 2.5 MG TABLET PO SCH (22:06)
[2025-03-01] MEDS: NITROGLYCERIN OINT 1 INCH/GM PACKET TOPICAL STA (22:07)
[2025-03-01] MEDS: MORPHINE SULFATE 4 MG/ML SYRINGE IVP PRN (22:07)
[2025-03-02 07:43] LABS: Glucose,Whole Blood 107 mg/dL (70-110)
[2025-03-02 08:09] LABS: Basophils # (A) 0.04 10*3/uL (0.00-0.10); Basophils % (A) 0.6 %; Eosinophils # (A) 0.07 10*3/uL (0.04-0.35); Eosinophils % (A) 1.1 %; HGB 15.2 g/dL (13.0-17.0); Lymphocytes # (A) 1.33 10*3/uL (0.90-5.00); Lymphocytes % (A) 20.4 %; MCHC 32.3 g/dL (32.0-37.0); MCV 83.3 fL (80.0-97.0); Mean Platelet Volume 11.6 fL (9.5-12.2); Monocytes # (A) 0.74 10*3/uL (0.20-1.00); Monocytes % (A) 11.3 %; Platelet Count 186 10*3/uL (140-440); RBC 5.64 10*6/uL (4.40-5.60); RDW 17.2 % (11.5-14.5); WBC 6.52 10*3/uL (4.50-10.00)
[2025-03-02] MEDS: IPRATROPIUM-ALBUTEROL 3 ML NEB INHALATION STA (08:13)
[2025-03-02 08:45] LABS: African American GFR (CKD) >90 (>60 ml/min/1.73 sqM); Anion Gap 11 mmol/L; Blood Urea Nitrogen 23 mg/dL (9-20); Calcium 9.7 mg/dL (8.4-10.2); Carbon Dioxide 24 mmol/L (22-30); Chloride 103 mmol/L (98-107); Glucose 110 mg/dL (74-99); Non-African American GFR(CKD) 78 (>60 ml/min/1.73 sqM); Potassium 4.3 mmol/L (3.5-5.1); Sodium 138 mmol/L (137-145)
--- NOTE | 2025-03-02 11:32 | P.CRDCN ---
History of Present Illness Consult date: 03/02/25 History of present illness: This is a 69-year-old male patient of Dr. Wiggins with past medical history of coronary artery disease status post CABG with redo CABG April 2024, ischemic cardiomyopathy with known EF of 25%, hypertension, dyslipidemia, paroxysmal atrial fibrillation, chronic kidney disease, valvular heart disease, chronic hypoxic respiratory failure on home O2 at 3 L, pleural effusion status post multiple thoracentesis with most recent . We have been asked to evaluate the patient for acute chest pain and history of CAD. Patient gives history that he has something "come over him like the plague" that is of sudden onset, last for about 1 hour and then leaves. Following that he feels back to normal. He experiences difficulty in breathing and dizziness. He was recently hospitalized on 02/17 at which time he was seen by cardiology for heart failure which was chronic in nature. Patient is concerned that he is having dreams about a wall fun about which we will defer to Dr. Gee to address. Patient also complains of left leg cramps. -EKG: Sinus rhythm with nonspecific changes. -Chest x-ray: Moderate right pleural effusion. -Laboratory studies: WBC 6.5, hemoglobin 15.2, BUN 23 creatinine 0.99. Troponin negative x 3. proBNP 1850. -Home cardiac medications: Eliquis 2.5 mg twice daily, atorvastatin 40 mg daily, Coreg 3.125 mg twice daily, Farxiga 10 mg daily, Lasix 40 mg daily, Entresto 24- 26 mg 1 tablet twice daily, spironolactone 25 mg daily. -Limited echocardiogram performed at [facility] on 12/18 revealed technically difficult study, EF 20 to 25%, moderate to severe MR, mild to moderate AI -Redo CABG April 2024 with previous CABG done 20 years prior. Review Of Systems: At the time of my exam: CONSTITUTIONAL: Denies fever or chills. HEENT: Denies blurred vision, vision changes, or eye pain. Denies hemoptysis CARDIOVASCULAR: Denies chest pain. Denies orthopnea. Denies PND. Denies palpitations RESPIRATORY: Denies shortness of breath. GASTROINTESTINAL: Denies abdominal pain. Denies nausea or vomiting. HEMATOLOGIC: Denies bleeding disorders. GENITOURINARY: Denies any blood in urine. SKIN: Denies puritis. Denies rash. Physical examination: Gen: This is 69-year-old male in no acute distress VS: reviewed HEENT: Head is atraumatic, normocephalic. Pupils equal, round. Sclerae is anicteric. NECK: Supple. No JVD. LUNGS: Clear to auscultation. No wheezes or rhonchi. No intercostal retractions. HEART: Regular rate and rhythm. Systolic murmur. ABDOMEN: Soft No tenderness. EXTREMITIES: No pedal edema. No calf tenderness. NEUROLOGICAL: Patient is awake, alert and oriented x3. Assessment: Dizziness and shortness of breath, resolved No chest pain, normal troponins Chronic heart failure with reduced EF, appears euvolemic on examination Coronary artery disease with previous CABG 20 years ago and redo CABG x 2, April 2024 Ischemic cardiomyopathy 20-25% History of bilateral pleural effusions History of multiple thoracentesis, most recent on 02/18/2025 Paroxysmal atrial fibrillation, currently in sinus rhythm Hypertension Hyperlipidemia Medication noncompliance Former nicotine dependence, patient quit smoking 7 months ago Plan: Resume patient's home cardiac medications Schedule patient for Lexiscan Cardiolite stress test in the morning N.p.o. after midnight No need to repeat echocardiogram as he had a limited study in November At the time of discharge, patient will follow-up with Dr. Wiggins in 1 to 2 weeks. Further recommendations to follow based upon clinical course Thank you kindly for this consultation. Nurse practitioner note has been reviewed, I agree with documented findings and plan of care. Patient was seen and examined. Past Medical History Past Medical History: Coronary Artery Disease (CAD), Chest Pain / Angina, Heart Failure, COPD, GERD/Reflux, Hyperlipidemia, Hypertension, Myocardial Infarction ([place]), Osteoarthritis (OA), Sleep Apnea/CPAP/BIPAP Additional Past Medical History / Comment(s): Chronic back pain, left leg weakness. O2 as needed, 3LNC. States unsure about having had a heart attack. Uses CPAP Last Myocardial Infarction Date:: 11/11/22 History of Any Multi-Drug Resistant Organisms: None Reported Past Surgical History: Back Surgery, Cholecystectomy, Coronary Bypass/CABG, Heart Catheterization With Stent Additional Past Surgical History / Comment(s): Back surgery X2 with cage, left tennis elbow surgery, heart stents X7, colonoscopy. Open heart surgeryx2. emergency CABG [facility], thrombectomy. April Past Anesthesia/Blood Transfusion Reactions: No Reported Reaction Additional Past Anesthesia/Blood Transfusion Reaction / Comment(s): Pt received blood during CABG without reaction. Pt states,"I can't have anymore surgeries becuase I stop breathing." "That's what they told my fiance'" Date of Last Stent Placement:: Oct 2022 Past Psychological History: Anxiety, Depression, PTSD Additional Psychological History / Comment(s): He drives. Smoking Status: Current every day smoker, Vaper Past Alcohol Use History: None Reported Additional Past Alcohol Use History / Comment(s): Started smoking in 1967, smokes <1ppd. No alcohol in 30+ yrs. Past Drug Use History: None Reported Additional Drug Use History / Comment(s): States no cocaine use for 30+ yrs. - Past Family History Father Family Medical History: Coronary Artery Disease (CAD), Deep Vein Thrombosis (DVT), GERD/Reflux, Hyperlipidemia, Myocardial Infarction ([place]) Additional Family Medical History / Comment(s): Father of a [place] in his 80's. Mother Family Medical History: Coronary Artery Disease (CAD), Myocardial Infarction ([place]) Additional Family Medical History / Comment(s): Mother of a [place]. Brother(s) Family Medical History: Myocardial Infarction ([place]) Additional Family Medical History / Comment(s): . Sister(s) Family Medical History: Cancer, Diabetes Mellitus Additional Family Medical History / Comment(s): Lung cancer. Other sister had Diabetes. Medications and Allergies Home Medications Medication Instructions Recorded Confirmed Type ALPRAZolam [Xanax] 2 mg PO BID 07/27/24 02/24/25 History Aspirin EC [Ecotrin Low Dose] 81 mg PO QAM 09/05/24 02/24/25 History Apixaban [Eliquis] 2.5 mg PO BID 12/07/24 02/24/25 History Albuterol Sulfate [Albuterol 2 puff INHALATION RT-QID PRN 12/17/24 02/24/25 History Sulfate Hfa] Gabapentin [Neurontin] 100 mg PO BID 12/17/24 02/24/25 History hydrOXYzine HCL [Atarax] 50 mg PO DIRECTED PRN #7 tablet 02/27/25 Rx Allergies Allergy/AdvReac Type Severity Reaction Status Date / Time latex Allergy Swelling Verified 03/02/25 11:11 atorvastatin [From Lipitor] AdvReac JOINT PAIN Verified 03/02/25 11:11 Physical Exam Vitals: Vital Signs Temp Pulse Pulse Resp BP BP Pulse Ox 03/02/25 08:11 97.9 F 79 16 148/73 100 03/02/25 06:35 112 H 03/02/25 06:29 112 H 03/02/25 06:12 88 18 159/93 100 03/02/25 05:45 88 18 153/80 100 03/02/25 04:51 18 96 03/02/25 04:04 79 18 126/66 96 03/02/25 01:58 98 F 86 14 126/82 96 03/01/25 20:30 80 18 136/89 98 03/01/25 18:10 90 20 166/88 98 Intake and Output 03/01/25 03/02/25 03/02/25 22:59 06:59 14:59 Intake Total 118 Balance 118 Intake: Oral 118 Other: Weight 81.647 kg 81.647 kg Results 03/02/25 07:44 03/02/25 07:44 Cardiac Enzymes 03/01/25 03/01/25 03/02/25 Range/Units 18:23 18:23 00:33 AST 38 (17-59) U/L Troponin I 0.023 0.025 (0.000-0.034) ng/mL 03/02/25 Range/Units 07:44 AST (17-59) U/L Troponin I 0.019 (0.000-0.034) ng/mL Coagulation 03/01/25 Range/Units 18:23 PT 10.9 (10.0-12.5) sec APTT 24.6 (22.0-30.0) sec CBC 03/01/25 03/02/25 Range/Units 18:23 07:44 WBC 8.86 6.52 (4.50-10.00) 10*3/uL RBC 5.90 H 5.64 H (4.40-5.60) 10*6/uL Hgb 16.1 15.2 (13.0-17.0) g/dL Hct 47.9 47.0 (39.6-50.0) % Plt Count 181 186 (140-440) 10*3/uL Comprehensive Metabolic Panel 05/03/25 05/04/25 Range/Units 18:23 07:44 Sodium 138 138 (137-145) mmol/L Potassium 4.0 4.3 (3.5-5.1) mmol/L Chloride 104 103 (98-107) mmol/L Carbon Dioxide 18 L 24 (22-30) mmol/L BUN 19 23 H (9-20) mg/dL Creatinine 0.85 0.99 (0.66-1.25) mg/dL Glucose 147 H 110 H (74-99) mg/dL Calcium 9.9 9.7 (8.4-10.2) mg/dL AST 38 (17-59) U/L ALT 31 (4-49) U/L Alkaline Phosphatase 142 H (38-126) U/L Total Protein 7.9 (6.3-8.2) g/dL Albumin 4.5 (3.5-5.0) g/dL Current Medications Generic Name Dose Route Start Last Admin Trade Name Freq PRN Reason Stop Dose Admin Apixaban 2.5 mg 03/01/25 21:15 03/02/25 08:48 Apixaban 2.5 Mg Tablet PO 2.5 mg BID ELIANA Administration Protocol Morphine Sulfate 4 mg 03/01/25 20:44 03/02/25 09:10 Morphine Sulfate 4 Mg/Ml Syringe IVP 4 mg Q4HR PRN Administration Pain Naloxone HCl 0.2 mg 03/01/25 21:06 Naloxone 0.4 Mg/Ml 1 Ml Vial IV Q2M PRN Opioid Reversal Intake and Output 03/01/25 03/02/25 03/02/25 22:59 06:59 14:59 Intake Total 118 Balance 118 Intake: Oral 118 Other: Weight 81.647 kg 81.647 kg 03/02/25 07:44 03/02/25 07:44
[2025-03-02] MEDS: carvediloL 3.125 MG TAB PO SCH (12:42)
[2025-03-02] MEDS: SACUBITRIL/VALSARTAN 24 MG-26 MG TABLET PO SCH (12:42)
[2025-03-02] MEDS: DAPAGLIFLOZIN PROPANEDIOL 10 MG TABLET PO SCH (12:42)
[2025-03-02] MEDS: SPIRONOLACTONE 25 MG TAB PO SCH (12:43)
[2025-03-02] MEDS: oxyCODONE-APAP 5-325MG 1 EACH TAB PO PRN (16:14)
[2025-03-02] MEDS: SODIUM BICARBONATE TAB 650 MG TAB PO SCH (16:14)
[2025-03-02 17:20] LABS: Glucose,Whole Blood 121 mg/dL (70-110)
[2025-03-02 17:35] VITALS: BP 144/78; PULSE 91; RESP 17
[2025-03-02 17:53] VITALS: TEMP 99.2
[2025-03-03] MEDS ORDERED: AMINOPHYLLINE 500 MG/20 ML VIAL IV PRN (06:00)
[2025-03-03] MEDS ORDERED: REGADENOSON 0.4 MG/5 ML SYRINGE IV PRN (06:00)
[2025-03-03] MEDS ORDERED: CAFFEINE CITRATE 60 MG/3 ML VIAL IV PRN (06:00)
[2025-03-03] MEDS ORDERED: ATORVASTATIN 40 MG TAB PO SCH (09:00)
[2025-03-03] MEDS ORDERED: FUROSEMIDE 40 MG TAB PO SCH (09:00)
--- NOTE | 2025-03-05 16:36 | HP ---
HISTORY AND PHYSICAL CHIEF COMPLAINT: Chest pain, shortness of breath. HISTORY OF PRESENT ILLNESS: This is another admission for this 69-year-old white male who has been in and out of the hospital frequently lately for chest pain and shortness of breath. He has advanced coronary artery disease and he has had 2 coronary artery bypass procedures as well as multiple stenting. He continues to smoke. He has also been having problems with recurrent right pleural effusion due to his heart failure. He came back into the emergency room once again with chest pain. Past medical history, family history, and personal and social histories are unchanged. REVIEW OF SYSTEMS: Unremarkable otherwise. PHYSICAL EXAMINATION: VITAL SIGNS: Normal. HEAD, EARS, EYES, NOSE, MOUTH, AND THROAT: Normal. CHEST: Clear. CARDIAC: Normal with sinus rhythm. ABDOMEN: Soft and protuberant. EXTREMITIES: Normal. NEUROLOGICAL: Intact. ASSESSMENT: He is admitted to the hospital with diagnoses of, 1. Unstable angina pectoris. 2. Coronary artery disease. 3. Atherosclerotic cardiomyopathy. 4. Congestive heart failure. 5. Recurrent pleural effusion. 6. Chronic obstructive pulmonary disease. PLAN: 1. Bed rest. 2. IV fluids. 3. Nasal O2. 4. Cardiology consult. MMODL / IJN: [id number] /
--- NOTE | 2025-03-05 16:36 | PN ---
PROGRESS NOTE DATE OF SERVICE: 03/02/2025 CHIEF COMPLAINT: Chest pain. HISTORY OF PRESENT ILLNESS: This gentleman is still having some anterior chest pain. He has had no fever or chills. He is not having a lot of difficulty with shortness of breath. PHYSICAL EXAMINATION: CHEST: Clear and there are diminished breath sounds on the right. CARDIAC: Sinus. ABDOMEN: Soft, nontender. IMPRESSION: 1. Acute coronary syndrome. 2. Coronary artery disease. 3. Chronic obstructive pulmonary disease. 4. Chronic congestive heart failure with reduced ejection fraction. 5. Chronic right pleural effusion. PLAN: Continue to follow, and Cardiology is planning another stress test tomorrow. MMODL / IJN: [id number] /
== END 2025-03-02 19:15 | disposition left against medical advice (07) ==
LOC: EC 18:09 → 6NMEDSUR 21:09
PROVIDERS: ADMIT Family Medicine; ATTEND Family Medicine
DX: I24.9 Acute ischemic heart disease, unspecified (principal); I25.110 Atherosclerotic heart disease of native coronary artery with unstable angina pectoris; R55 Syncope and collapse; I13.0 Hypertensive heart and chronic kidney disease with heart failure and stage 1 through stage 4 chronic kidney disease, or unspecified chronic kidney disease; I50.22 Chronic systolic (congestive) heart failure; N18.9 Chronic kidney disease, unspecified; J44.9 Chronic obstructive pulmonary disease, unspecified; E78.5 Hyperlipidemia, unspecified; K21.9 Gastro-esophageal reflux disease without esophagitis; G47.30 Sleep apnea, unspecified; I25.2 Old myocardial infarction; I25.5 Ischemic cardiomyopathy; I48.0 Paroxysmal atrial fibrillation; J96.11 Chronic respiratory failure with hypoxia; F32.A Depression, unspecified; F41.9 Anxiety disorder, unspecified; F17.290 Nicotine dependence, other tobacco product, uncomplicated; Z91.148 Patient's other noncompliance with medication regimen for other reason; Z95.5 Presence of coronary angioplasty implant and graft; Z99.81 Dependence on supplemental oxygen; Z79.01 Long term (current) use of anticoagulants; Z79.82 Long term (current) use of aspirin; Z79.84 Long term (current) use of oral hypoglycemic drugs; Z79.899 Other long term (current) drug therapy; Z91.040 Latex allergy status; Z82.49 Family history of ischemic heart disease and other diseases of the circulatory system; Z53.29 Procedure and treatment not carried out because of patient's decision for other reasons
CPT/HCPCS: 96376 ×3; 96374 ×2; 96375; 99285; 36415; 93005; 83880; 80053; 80048; 83690; 83735; 84484 ×2; 85025 ×2; 85610; 85730; 71046; G0378 ×2; J2270 ×2; J2405

== ENCOUNTER 2025-03-03 04:02 | Observation (INO) | payer MEDICARE, OTHER ==
[2025-03-03] MEDS ORDERED: ONDANSETRON 4 MG/2 ML VIAL IVP PRN (04:30)
[2025-03-03] MEDS ORDERED: NALOXONE 0.4 MG/ML 1 ML VIAL IV PRN (04:30)
--- NOTE | 2025-03-03 04:35 | ED ---
Recheck HPI - General Chief Complaint: Shortness of Breath Stated Complaint: chest pain Time Seen by Provider: 03/03/25 04:17 Source: patient, RN notes reviewed, old records reviewed, Caregiver Mode of arrival: wheelchair Limitations: no limitations - History of Present Illness Initial Comments: This is a 69-year-old male for reevaluation reevaluation of chest pain and syncopal event yesterday, states he is scheduled for stress test and got concerned and scared and signed out AGAINST MEDICAL ADVICE to evaluate chest pain and shortness of breath also admits to significant confusion and patient does believe he needs psychiatric evaluation -: days(s) Associated Symptoms: none Treatments Prior to Arrival: other - Related Data Home Medications Medication Instructions Recorded Confirmed Apixaban [Eliquis] 2.5 mg PO BID 12/07/24 03/05/25 Atorvastatin [Lipitor] 40 mg PO DAILY 03/02/25 03/05/25 Budesonide/Formoterol Fumarate 2 puff INHALATION RT-BID 03/02/25 03/05/25 [Symbicort 160-4.5 Mcg Inhaler] Dapagliflozin Propanediol [Farxiga] 10 mg PO DAILY 03/02/25 03/05/25 Folic Acid 1 mg PO DAILY 03/02/25 03/05/25 Furosemide [Lasix] 40 mg PO DAILY 03/02/25 03/05/25 Sacubitril/Valsartan [Entresto 24 1 tab PO BID 03/02/25 03/05/25 mg-26 mg Tablet] Sodium Bicarbonate Tab 650 mg PO TID 03/02/25 03/05/25 Spironolactone [Aldactone] 25 mg PO DAILY 03/02/25 03/05/25 carvediloL [Coreg] 3.125 mg PO BID 03/02/25 03/05/25 hydrOXYzine HCL [Atarax] 50 mg PO HS PRN 03/02/25 03/05/25 oxyCODONE-APAP 5-325MG [Percocet 1 tab PO Q6H PRN 03/02/25 03/05/25 5-325 mg] Previous Rx's Medication Instructions Recorded QUEtiapine [SEROquel] 100 mg PO BID 30 Days tab 03/07/25 Allergies Allergy/AdvReac Type Severity Reaction Status Date / Time latex Allergy Swelling Verified 03/03/25 08:55 atorvastatin [From Lipitor] AdvReac JOINT PAIN Verified 03/03/25 08:55 Review of Systems ROS Statement: Those systems with pertinent positive or pertinent negative responses have been documented in the HPI. ROS Other: All systems not noted in ROS Statement are negative. Past Medical History Past Medical History: Coronary Artery Disease (CAD), Chest Pain / Angina, Heart Failure, COPD, GERD/Reflux, Hyperlipidemia, Hypertension, Myocardial Infarction (MN), Osteoarthritis (OA), Sleep Apnea/CPAP/BIPAP Additional Past Medical History / Comment(s): Chronic back pain, left leg weakness. O2 as needed, 3LNC. States unsure about having had a heart attack. Uses CPAP Last Myocardial Infarction Date:: 11/11/22 History of Any Multi-Drug Resistant Organisms: None Reported Past Surgical History: Back Surgery, Cholecystectomy, Coronary Bypass/CABG, Heart Catheterization With Stent Additional Past Surgical History / Comment(s): Back surgery X2 with cage, left tennis elbow surgery, heart stents X7, colonoscopy. [facility] heart [facility] Past Anesthesia/Blood Transfusion Reactions: No Reported Reaction Additional Past Anesthesia/Blood Transfusion Reaction / Comment(s): Pt received blood during CABG without reaction. Pt states,"I can't have anymore surgeries becuase I stop breathing." "That's what they told my fiance'" Date of Last Stent Placement:: Oct 2022 Past Psychological History: Anxiety, Depression, PTSD Smoking Status: Current every day smoker, Vaper Past Alcohol Use History: None Reported Past Drug Use History: None Reported - Past Family History Father Family Medical History: Coronary Artery Disease (CAD), Deep Vein Thrombosis (DVT), GERD/Reflux, Hyperlipidemia, Myocardial Infarction (MN) Additional Family Medical History / Comment(s): Father of a MN in his 80's. Mother Family Medical History: Coronary Artery Disease (CAD), Myocardial Infarction (MN) Additional Family Medical History / Comment(s): Mother of a MN. Brother(s) Family Medical History: Myocardial Infarction (MN) Additional Family Medical History / Comment(s): . Sister(s) Family Medical History: Cancer, Diabetes Mellitus Additional Family Medical History / Comment(s): Lung cancer. Other sister had Diabetes. General Exam Limitations: altered mental status General appearance: anxious Head exam: Present: atraumatic, normocephalic, normal inspection Eye exam: Present: normal appearance, PERRL, EOMI. Absent: scleral icterus, conjunctival injection, periorbital swelling ENT exam: Present: normal exam, mucous membranes moist Neck exam: Present: normal inspection. Absent: tenderness, meningismus, lymphadenopathy Respiratory exam: Present: normal lung sounds bilaterally. Absent: respiratory distress, wheezes, rales, rhonchi, stridor Cardiovascular Exam: Present: regular rate, normal rhythm, normal heart sounds. Absent: systolic murmur, diastolic murmur, rubs, gallop, clicks GI/Abdominal exam: Present: soft, normal bowel sounds. Absent: distended, tenderness, guarding, rebound, rigid Extremities exam: Present: normal inspection, full ROM, normal capillary refill. Absent: tenderness, pedal edema, joint swelling, calf tenderness Back exam: Present: normal inspection Neurological exam: Present: alert, oriented X3, CN II-XII intact Psychiatric exam: Present: normal affect, normal mood Skin exam: Present: warm, dry, intact, normal color. Absent: rash Course Vital Signs 03/03/25 03/03/25 03/03/25 04:04 04:42 05:39 Temperature 97.9 F Pulse Rate 88 89 Respiratory 18 18 18 Rate Blood Pressure 151/87 139/75 O2 Sat by Pulse 97 96 Oximetry 03/03/25 03/03/25 07:07 08:59 Temperature 98.1 F Pulse Rate 78 95 Respiratory 18 18 Rate Blood Pressure 137/93 154/80 O2 Sat by Pulse 96 97 Oximetry - Reevaluation(s) Reevaluation #1: 03/03/25 04:34 Medical records reviewed Reevaluation #2: 03/03/25 04:34 Patient symptoms unchanged Reevaluation #3: 03/03/25 04:34 Patient informed of results questions answered Reevaluation #4: Was pt. sent in by a medical professional or institution (, PA, ROLL ICER MACHINE, urgent care, hospital, or detention...) When possible be specific @ -no Did you speak to anyone other than the patient for history (EMS, parent, family, police, friend...)? What history was obtained from this source @ -no Did you review nursing and triage notes (agree or disagree)? Why? @ -agree Are old charts reviewed (outside hosp., previous admission, EMS record, old EKG, old radiological studies, urgent care reports/EKG's, detention records)? Report findings @ -yes Differential Diagnosis (chest pain, altered mental status, abdominal pain women, abdominal pain men, vaginal bleeding, weakness, fever, dyspnea, syncope, headach e, dizziness, GI bleed, back pain, seizure, CVA, palpatations, mental health, musculoskeletal)? @ -prior EKG interpreted by me (3pts min.). @ -no X-rays interpreted by me (1pt min.. @ -no CT interpreted by me (1pt min.). @ -no U/S interpreted by me (1pt. min.). @ -no What testing was considered but not performed or refused? (CT, X-rays, U/S, labs)? Why? @ -none What meds were considered but not given or refused? Why? @ -none Did you discuss the management of the patient with other professionals (professionals i.e. , PA, ROLL ICER MACHINE, lab, RT, psych nurse, social insurance administrator, wash operator, teacher, transit authority police officer, skilled nursing case manager)? Give summary @ -no Was smoking cessation discussed for >3mins.? @ -no Was critical care preformed (if so, how long)? @ -no Were there social determinants of health that impacted care today? How? (Homelessness, low income, unemployed, alcoholism, drug addiction, transport ation, low edu. Level, literacy, decrease access to med. care, longterm, rehab)? @ -none Was there de-escalation of care discussed even if they declined (Discuss DNR or withdrawal of care, Hospice)? DNR status @ -no What co-morbidities impacted this encounter? (DM, HTN, Smoking, COPD, CAD, Cancer, CVA, ARF, Chemo, Hep., AIDS, mental health diagnosis, sleep apnea, morbid obesity)? @ -none Was patient admitted / discharged? Hospital course, mention meds given and route, prescriptions, significant lab abnormalities, going to OR and other pertinent info. @ - 69 male to the ER for evaluation of altered mental status. Patient presents today for confusion recent observation with need for stress test he got concerned that the stress test was going to be abnormal and signed out AGAINST MEDICAL ADVICE felt better overall and comes back to the ER tonight Admitted Undiagnosed new problem with uncertain prognosis? @ -no Drug Therapy requiring intensive monitoring for toxicity (Heparin, Nitro, Ins ulin, Cardizem)? @ -no Were any procedures done? @ -no Diagnosis/symptom? @ -Chest pain with altered mental status with acute chest pain Acute, or Chronic, or Acute on Chronic? @ -Acute Uncomplicated (without systemic symptoms) or Complicated (systemic symptoms)? @ -Complicated Side effects of treatment? @ -no Exacerbation, Progression, or Severe Exacerbation? @ -exacerbation Poses a threat to life or bodily function? How? (Chest pain, USA, MN, pneumonia, PE, COPD, DKA, ARF, appy, cholecystitis, CVA, Diverticulitis, Homicidal, Suicidal, threat to staff... and all critical care pts) @ -yes chest pain Reevaluation #5: Differential Chest Pain: Stable Angina, Unstable Angina, STEMI, NSTEMI Aortic Dissection, Pneumothorax, Musculoskeletal, Esophageal Spasm GERD, Cholecystitis, Pancreatitis, Zoster, this is not meant to be an all-inclusive list. Differential Syncope: Valvular disease, hypertrophic cardiomyopathy, pulmonary embolism, tamponade, tachycardia, bradycardia, MN, hypovolemia, hemorrhage, dissection, anemia, intracranial hemorrhage, seizure, hypoglycemia, carbon monoxide poisoning, this is not meant to be an all-inclusive list. - Consultations Consultation #1: Spoke with Dr. Gee who agrees to admit this patient Medical Decision Making - Medical Decision Making 69 male to the ER for evaluation of altered mental status. Patient presents tod ay for confusion recent observation with need for stress test he got concerned that the stress test was going to be abnormal and signed out AGAINST MEDICAL ADVICE felt better overall and [facility] - Lab Data Result diagrams: 03/05/25 04:12 03/05/25 04:12 Disposition Clinical Impression: Unstable angina pectoris, Altered mental status Disposition: ADMITTED IP TO THIS HOSP Condition: Fair Is patient prescribed a controlled substance at d/c from ED?: No Time of Disposition: 04:30
[2025-03-03 05:27] LABS: Basophils # (A) 0.03 10*3/uL (0.00-0.10); Basophils % (A) 0.4 %; Eosinophils # (A) 0.12 10*3/uL (0.04-0.35); Eosinophils % (A) 1.5 %; HCT 46.8 % (39.6-50.0); HGB 15.1 g/dL (13.0-17.0); Lymphocytes # (A) 1.31 10*3/uL (0.90-5.00); Lymphocytes % (A) 16.4 %; MCH 26.4 pg (27.0-32.0); MCHC 32.3 g/dL (32.0-37.0); Mean Platelet Volume 11.6 fL (9.5-12.2); Monocytes # (A) 0.78 10*3/uL (0.20-1.00); Monocytes % (A) 9.7 %; Neutrophils # (A) 5.75 10*3/uL (1.80-7.70); Neutrophils % (A) 71.8 %; Platelet Count 205 10*3/uL (140-440); RBC 5.71 10*6/uL (4.40-5.60); RDW 16.7 % (11.5-14.5); WBC 8.01 10*3/uL (4.50-10.00)
[2025-03-03] MEDS: SODIUM CHLORIDE 0.9% 1,000 ML IV SCH (05:33)
[2025-03-03] MEDS: KETOROLAC 15 MG/ML 1 ML VIAL IVP PRN (05:34)
[2025-03-03 05:47] LABS: ALT 28 U/L (4-49); AST 33 U/L (17-59); African American GFR (CKD) >90 (>60 ml/min/1.73 sqM); Albumin 4.3 g/dL (3.5-5.0); Alkaline Phosphatase 141 U/L (38-126); Anion Gap 10 mmol/L; Blood Urea Nitrogen 18 mg/dL (9-20); Calcium 9.4 mg/dL (8.4-10.2); Carbon Dioxide 22 mmol/L (22-30); Chloride 104 mmol/L (98-107); Glucose 128 mg/dL (74-99); Lipase 58 U/L (23-300); Magnesium 1.9 mg/dL (1.6-2.3); Non-African American GFR(CKD) >90 (>60 ml/min/1.73 sqM); Phosphorus 3.7 mg/dL (2.5-4.5); Potassium 4.1 mmol/L (3.5-5.1); Sodium 136 mmol/L (137-145); Total Bilirubin 1.4 mg/dL (0.2-1.3); Total Protein 7.6 g/dL (6.3-8.2)
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
[2025-03-03] MEDS: QUEtiapine 100 MG TAB PO SCH (12:40)
[2025-03-03] MEDS: SODIUM BICARBONATE TAB 650 MG TAB PO SCH (16:01)
[2025-03-03] MEDS: carvediloL 3.125 MG TAB PO SCH (17:22)
[2025-03-03] MEDS: NICOTINE 14MG/24HR PATCH TRANSDERM SCH (20:19)
[2025-03-03] MEDS: oxyCODONE-APAP 5-325MG 1 EACH TAB PO PRN (20:19)
[2025-03-03] MEDS: SACUBITRIL/VALSARTAN 24 MG-26 MG TABLET PO SCH (20:19)
[2025-03-03] MEDS: APIXABAN 2.5 MG TABLET PO SCH (20:20)
[2025-03-03] MEDS: hydrOXYzine HCL 25 MG TAB PO PRN (21:55)
[2025-03-03] MEDS: HALOPERIDOL LACTATE 5 MG/ML 1 ML VIAL IM STA (23:38)
--- NOTE | 2025-03-04 08:21 | P.CN ---
Psychiatric Consult - . Consult date: 03/04/25 Consult:: 03/04/25 08:13 Interval History: Patient was seen in his room comfortable in his bed with his sitter next to him. Patient was calm and cooperative during the interview and presented less agitated than yesterday. It is noted that he got some sleep last night. He was able to identify the month and year. He was able to identify the place and person. He was able to spell world forwards but struggled spelling it backwards. He was able to do serial twos. He notes that his mind is racing and his energy is still high. He notes that he continues to have mood swings. He denies any ongoing depression or anxiety. He denies any auditory visualizations. He does note that he is feeling paranoid and feeling that people are after him. He denies any suicidal or homicidal ideations. He does note in the past he has been on Xanax 2 mg 3 times daily and last time taken 3 to 4 days ago. Patient was able to have forward thought thinking. Mental Status Exam: General Appearance: Patient appears to be stated age is alert, directable, and cooperative. Behavior: Patient is calmly seated without any agitated behavior. Speech: Patient's speech is fluent and nonpressured. Mood/Affect: Mood is improving mildly, affect is congruent and constricted. Suicidality/Homicidality: Patient denies having any suicidal or homicidal ideation intent or plan. Perceptions: Patient denies any visual hallucinations and denies any auditory hallucinations Though content/process: Patient did have some mild paranoid thoughts but nothing severe or thoughts of going out to hurt other people. Memory and concentration: AOX3, grossly intact for the purposes of this session Judgment and insight: Improving mildly Diagnosis: Schizoaffective disorder bipolar type R/O Hyperactive Delirium Assessment: 69-year-old male presenting with past history of schizophrenia currently having problems with breathing. Patient has been off his Xanax 2 mg 3 times daily for over 3 to 4 days which could cause benzodiazepine withdrawal it is uncertain whether some of the altered mental status is related to this. Additionally it appears that the patient is responding to the Seroquel. It is felt that his current state after the interview he that he is able to return home after medically cleared. PLAN: -At this time patient DOES not meet criteria for inpatient psychiatric admission. After medically cleared. -Delirium precautions recommended with patient including - avoiding use of narcotics and TAVERN CAR ATTENDANT sedatives, limit anticholinergic medications when possible, frequent re-orientation, minimize use of restraints, open window shades during the day and close them at night -Would recommend the following medication changes/additions: Seroquel 100 mg twice daily to help with the patient's sleep (please provide the patient with a month supply prescription prior to discharge) -Can leave AMA at this time. Patient will need a petition and certification if attempting to leave AMA. -sorting livestock worker to provide patient with outpatient mental health/psychiatry resources for appropriate follow up upon discharge (ensure that the patient has a follow-up appointment with [facility] upon discharge) -When medically stable, patient is eligible for transfer to a psych bed when available. -Communicated plan to patient's nurse -Will continue to follow along -Please contact with any questions.
[2025-03-04] MEDS: SPIRONOLACTONE 25 MG TAB PO SCH (08:50)
[2025-03-04] MEDS: FUROSEMIDE 40 MG TAB PO SCH (08:50)
[2025-03-04] MEDS: DAPAGLIFLOZIN PROPANEDIOL 10 MG TABLET PO SCH (08:50)
[2025-03-04] MEDS: FOLIC ACID 1 MG TAB PO SCH (08:51)
[2025-03-04] MEDS: ATORVASTATIN 40 MG TAB PO SCH (08:51)
[2025-03-04 14:37] VITALS: BMI 31.0
--- NOTE | 2025-03-04 15:33 | XR ---
EXAMINATION TYPE: XR chest 1V portable DATE OF EXAM: 03/04/2025 3:29 PM COMPARISON: Chest radiographs from 03/01/2025. TECHNIQUE: XR chest 1V portable Portable AP radiograph of the chest. CLINICAL INDICATION:Male, 69 years old with history of chest pain; FINDINGS: Lungs/Pleura: No pneumothorax. The left lung is clear. Similar small right pleural effusion with noah cent airspace opacities. Pulmonary vascularity: Unremarkable. Heart/mediastinum: Cardiomediastinal silhouette is unremarkable. Musculoskeletal: No acute osseous pathology. Midline sternotomy wires are noted and stable. IMPRESSION: Similar small right pleural effusion with adjacent airspace opacities which may represent infiltrates versus atelectasis. [facility], , 03/04/2025 3:31 PM
--- NOTE | 2025-03-04 19:58 | P.HPIM ---
History of Present Illness H&P Date: 03/04/25 Chief Complaint: Altered mental status Patient is a 69-year-old male with a known history of coronary artery disease status post CABG, history of stent placement, ischemic cardiomyopathy ejection fraction 25%, hypertension, hyperlipidemia, paroxysmal atrial fibrillation, chr onic hypoxic respiratory failure on home oxygen 3 L via nasal cannula, CKD, pleural effusion status post multiple thoracentesis with most recent on 02/18/2025. Patient was recently discharged from the hospital on 02/18/2025. Also admitted on 03/01/2025 due to chest pain and recommended Lexiscan stress test by cardiology. Patient was brought to the hospital due to complaints of chest pain syncopal epi sode yesterday. He was scheduled for stress test while in the hospital but got scared and signed out AMA. He has been confused and hyperactive. He is feeling paranoid and feeling that people are after him. Denied any suicidal or homicidal ideation. Currently patient told RN that he is going to borrow his car and get the gun. Laboratory data showed WBC 8.0 hemoglobin 15.1 platelets 205 sodium 136 potassium 4.1 chloride 104 bicarb is 22 BUN 18 and creatinine 0.83 and blood sugar 128 total bili 1.4 magnesium 1.9 alk phos 141 troponin x 2 negative. Lipase 58. Review of Systems Constitutional: Patient denies any fever or chills . No generalized weakness or weight loss. Abdomen: Patient denied nausea vomiting and diarrhea and abdominal pain. Cardiovascular: Patient denies any chest pain or short of breath no palpitations. Respiratory: patient denied any cough or sputum production. No shortness of breath Neurologic: Patient denied any numbness or tingling. no headache. Musculoskeletal: Patient denies any complaints of joint swelling or deformity. Skin: Negative Psychiatric: Delirious and paranoid ideation Endocrine: No heat or cold intolerance. No recent weight gain. Genitourinary: No dysuria or hematuria. All other 14 point ROS negative except the above Past Medical History Past Medical History: Coronary Artery Disease (CAD), Chest Pain / Angina, Heart Failure, COPD, GERD/Reflux, Hyperlipidemia, Hypertension, Myocardial Infarction (DE), Osteoarthritis (OA), Sleep Apnea/CPAP/BIPAP Additional Past Medical History / Comment(s): Chronic back pain, left leg weakness. O2 as needed, 3LNC. States unsure about having had a heart attack. Uses CPAP Last Myocardial Infarction Date:: 11/11/22 History of Any Multi-Drug Resistant Organisms: None Reported Past Surgical History: Back Surgery, Cholecystectomy, Coronary Bypass/CABG, Heart Catheterization With Stent Additional Past Surgical History / Comment(s): Back surgery X2 with cage, left tennis elbow surgery, heart stents X7, colonoscopy. Open heart surgeryx2. emergency CABG [facility], thrombectomy. April Past Anesthesia/Blood Transfusion Reactions: No Reported Reaction Additional Past Anesthesia/Blood Transfusion Reaction / Comment(s): Pt received blood during CABG without reaction. Pt states,"I can't have anymore surgeries becuase I stop breathing." "That's what they told my fiance'" Date of Last Stent Placement:: Oct 2022 Past Psychological History: Anxiety, Depression, PTSD Additional Psychological History / Comment(s): He drives. Smoking Status: Current every day smoker, Vaper Past Alcohol Use History: None Reported Additional Past Alcohol Use History / Comment(s): Started smoking in 1967, smokes <1ppd. No alcohol in 30+ yrs. Past Drug Use History: None Reported Additional Drug Use History / Comment(s): States no cocaine use for 30+ yrs. - Past Family History Father Family Medical History: Coronary Artery Disease (CAD), Deep Vein Thrombosis (DVT), GERD/Reflux, Hyperlipidemia, Myocardial Infarction (DE) Additional Family Medical History / Comment(s): Father of a DE in his 80's. Mother Family Medical History: Coronary Artery Disease (CAD), Myocardial Infarction (DE) Additional Family Medical History / Comment(s): Mother of a DE. Brother(s) Family Medical History: Myocardial Infarction (DE) Additional Family Medical History / Comment(s): . Sister(s) Family Medical History: Cancer, Diabetes Mellitus Additional Family Medical History / Comment(s): Lung cancer. Other sister had Diabetes. Medications and Allergies Home Medications Medication Instructions Recorded Confirmed Type Apixaban [Eliquis] 2.5 mg PO BID 12/07/24 03/03/25 History Atorvastatin [Lipitor] 40 mg PO DAILY 03/02/25 03/03/25 History Budesonide/Formoterol Fumarate 2 puff INHALATION RT-BID 03/02/25 03/03/25 History [Symbicort 160-4.5 Mcg Inhaler] Dapagliflozin Propanediol [Farxiga] 10 mg PO DAILY 03/02/25 03/03/25 History Folic Acid 1 mg PO DAILY 03/02/25 03/03/25 History Furosemide [Lasix] 40 mg PO DAILY 03/02/25 03/03/25 History Sacubitril/Valsartan [Entresto 24 1 tab PO BID 03/02/25 03/03/25 History mg-26 mg Tablet] Sodium Bicarbonate Tab 650 mg PO TID 03/02/25 03/03/25 History Spironolactone [Aldactone] 25 mg PO DAILY 03/02/25 03/03/25 History carvediloL [Coreg] 3.125 mg PO BID 03/02/25 03/03/25 History hydrOXYzine HCL [Atarax] 50 mg PO HS PRN 03/02/25 03/03/25 History oxyCODONE-APAP 5-325MG [Percocet 1 tab PO Q6H PRN 03/02/25 03/03/25 History 5-325 mg] ALPRAZolam [Xanax] 2 mg PO TID PRN 03/04/25 03/04/25 History Allergies Allergy/AdvReac Type Severity Reaction Status Date / Time latex Allergy Swelling Verified 03/03/25 08:55 atorvastatin [From Lipitor] AdvReac JOINT PAIN Verified 03/03/25 08:55 Physical Exam Vitals: Vital Signs Temp Pulse Pulse Resp BP BP Pulse Ox 03/04/25 07:16 98.6 F 88 18 113/66 97 03/04/25 05:43 98.7 F 89 16 121/75 95 03/04/25 00:00 98.3 F 89 16 104/60 95 03/03/25 20:29 98.0 F 78 16 124/70 96 03/03/25 14:07 78 16 118/68 97 Intake and Output 03/03/25 03/04/25 03/04/25 22:59 06:59 14:59 Intake Total 50 450 Balance 50 450 Intake: Intake, IV Titration 450 Amount Sodium Chloride 0.9% 1, 450 000 ml @ 75 mls/hr IV . [id number] [facility] Rx#:[id number] Oral 50 Other: Voiding Method Toilet Toilet PHYSICAL EXAMINATION: Patient is lying in the bed comfortably, no acute distress, awake alert and oriented but delirious.. HEENT: Normocephalic. Neck is supple. Pupils reactive. Nostrils clear. Oral cavity is moist. Neck reveals no JVD, carotid bruits, or thyromegaly. CHEST EXAMINATION: Trachea is central. Symmetrical expansion. Lung garsia clear to auscultation and percussion. CARDIAC: Normal S1, S2 with no gallops. No murmurs ABDOMEN: Soft. Bowel sounds normal. No organomegaly. No abdominal bruits. Extremities: reveal no edema. No clubbing or cyanosis Neurologically awake, alert, oriented x 2-3 with well-coordinated movements. No gross focal deficits noted Skin: No rash or skin lesions. Psychiatric: Noncooperative. Could not be assessed completely Musculoskeletal: No joint swelling or deformity. Normal range of motion. Results CBC & Chem 7: 03/03/25 05:13 03/03/25 05:13 Thrombosis Risk Factor Assmnt - DVT/VTE Prophylaxis DVT/VTE Prophylaxis: Pharmacologic Prophylaxis ordered Assessment and Plan Assessment: Acute delirium versus schizoaffective disorder Recent admission on 03/01/2025 with chest pain, recommended Lexiscan stress test but patient left AMA Chronic CHF with reduced ejection fraction Ischemic cardiomyopathy is well-controlled on her present Coronary disease history of CABG 20 years ago and redo CABG x 2 in April 2024 History of bilateral pleural effusions and multiple thoracentesis Paroxysmal atrial fibrillation on anticoagulation Hypertension Hyperlipidemia Prior history of smoking DVT prophylaxis patient is already on anticoagulation Plan: Patient will be continued on telemonitoring. Continue with gentle IV hydration. Patient was seen by psychiatry and recommended Seroquel 100 mg twice daily to help with sleep. Started back on cardiac medications including apixaban, Coreg, Farxiga, Lasix and Entresto. Patient is also on sodium bicarb 650 mg twice daily. Continue to follow closely. Discussed with family at bedside. Time with Patient: Greater than 30
--- NOTE | 2025-03-05 07:58 | P.CN ---
Psychiatric Consult - . Consult date: 03/05/25 Consult:: Interval History: Nursing staff had reported that the patient had said "I just want to leave go downstairs and get in the car with my fianc and kids with my gun." Upon approaching the patient today about this he denied making those comments and then later on said that the nurse "coaxed him to say it". Then he stated "take it as you want". Patient became irritable at this point the interview was concluded. Mental Status Exam: General Appearance: Patient appears to be stated age is alert, was not directable, and guarded. Behavior: The patient was sitting in a chair. Speech: Patient's speech is fluent and nonpressured. Mood/Affect: Mood is improving mildly, affect is congruent and constricted. Suicidality/Homicidality: Patient denies having any suicidal or homicidal ideation intent or plan. Perceptions: Patient denies any visual hallucinations and denies any auditory hallucinations Though content/process: There is no evidence of any delusional thought content and thought process is linear and goal-directed. Memory and concentration: AOX3, grossly intact for the purposes of this session Judgment and insight: Poor/Poor Diagnosis: Schizoaffective disorder bipolar type R/O Hyperactive Delirium Assessment: At this time patient continues to shift stories it is unknown whether he actually remember saying this or not regardless this changes discharge planning at this point and for safety reasons further observations needed on the inpatient psychiatric unit. An attempt was made to contact the patient's fianc however there was no answer. PLAN: -At this time patient DOES meet criteria for inpatient psychiatric admission. After medically cleared. -Delirium precautions recommended with patient including - avoiding use of narcotics and [employer] sedatives, limit anticholinergic medications when possible, frequent re-orientation, minimize use of restraints, open window shades during the day and close them at night -Would recommend the following medication changes/additions: Seroquel 100 mg twice daily to help with the patient's sleep (please provide the patient with a month supply prescription prior to discharge) -Continue 1:1 sitter for safety. -Can't leave AMA at this time. Patient will need a petition and certification if attempting to leave AMA. -key worker to provide patient with outpatient mental health/psychiatry resources for appropriate follow up upon discharge (ensure that the patient has a follow-up appointment with [facility] upon discharge) -When medically stable, patient is eligible for transfer to a psych bed when available. -Communicated plan to patient's nurse -Will continue to follow along -Please contact with any questions.
[2025-03-05 08:27] LABS: BUN/Creat Ratio 24.15 Ratio (12.00-20.00); Blood Urea Nitrogen 31.4 mg/dL (9.0-27.0); Calcium 8.6 mg/dL (8.7-10.3); Carbon Dioxide 21.5 mmol/L (21.6-31.8); Chloride 105 mmol/L (96-109); Glucose 102 mg/dL (70-110); Potassium 4.4 mmol/L (3.5-5.5); Sodium 140 mmol/L (135-145)
[2025-03-05 08:36] LABS: Basophils # (A) 0.04 X 10*3/uL (0.00-0.10); Basophils % (A) 0.8 %; Eosinophils # (A) 0.14 X 10*3/uL (0.04-0.35); Eosinophils % (A) 2.9 %; HCT 43.4 % (39.6-50.0); HGB 13.6 g/dL (13.0-17.0); Lymphocytes # (A) 1.16 X 10*3/uL (0.90-5.00); MCH 26.6 pg (27.0-32.0); MCHC 31.3 g/dL (32.0-37.0); MCV 84.8 FL (80.0-97.0); Mean Platelet Volume 11.9 FL (9.5-12.2); Monocytes # (A) 0.76 X 10*3/uL (0.20-1.00); Monocytes % (A) 15.7 %; NRBC Per 100 WBC 0 X 10*3/uL (0.00-0.01); Neutrophils # (A) 2.72 X 10*3/uL (1.80-7.70); Neutrophils % (A) 56.2 %; Platelet Count 132 X 10*3/uL (140-440); RBC 5.12 X 10*6/uL (4.40-5.60); RDW 16.8 % (11.5-14.5); WBC 4.84 X 10*3/uL (4.50-10.00)
[2025-03-05 09:15] LABS: Appearance,Urine Clear (Clear); Bilirubin,Urine Negative (Negative); Blood,Urine Small (Negative); Color,Urine Yellow; Glucose,Urine (UA) 4+ (Negative); Hyaline Casts,Urine 3 /lpf (0-2); Ketones,Urine Negative (Negative); Leukocyte Esterase,Urine Negative (Negative); Mucus,Urine Many /hpf; Nitrite,Urine Negative (Negative); Protein,Urine Trace (Negative); RBC,Urine 5 /hpf (0-5); Squamous Epithelial Cell,Urine 1 /hpf (0-4); WBC,Urine 2 /hpf (0-5)
[2025-03-05 10:44] LABS: Urine Alcohol Negative (Negative); Urine Barbiturate Negative (Negative); Urine Cocaine Negative (Negative); Urine Methadone Negative (Negative); Urine Opiates Positive (Negative); Urine Phencyclidine Negative (Negative)
[2025-03-05 12:58] VITALS: BP 111/66; PULSE 81; RESP 17; TEMP 97.8
--- NOTE | 2025-03-05 16:36 | HP ---
HISTORY AND PHYSICAL Re-admission. CHIEF COMPLAINT: Chest pain, shortness of breath, syncope, and depression. HISTORY OF PRESENT ILLNESS: This gentleman signed out against medical advice yesterday, then he came back complaining again of chest pain, shortness of breath and depression. He is readmitted for further treatment and evaluation and he will be seen by Psychiatry. REVIEW OF SYSTEMS: Unchanged. Past medical history, family history, personal and social history are all unchanged. PHYSICAL EXAMINATION: VITAL SIGNS: Normal. HEAD, EARS, EYES, NOSE, MOUTH AND THROAT: Unchanged. CHEST: Clear except for poor breath sounds at the right base posteriorly. CARDIAC: Sounds normal. There are S3 and S4. ABDOMEN: Soft and protuberant. EXTREMITIES: Normal. NEUROLOGIC: Intact. DIAGNOSES: He is admitted to the hospital with diagnoses; 1. Acute coronary syndrome. 2. Advanced coronary artery disease. 3. Atherosclerotic cardiomyopathy. 4. Congestive heart failure. 5. Right pleural effusion. 6. Chronic obstructive pulmonary disease. 7. Depression. PLAN: 1. Bedrest. 2. IV fluids. 3. Consult with Psychiatry. MMODL / IJN: [id number] /
--- NOTE | 2025-03-05 16:37 | DS ---
DISCHARGE SUMMARY CHIEF COMPLAINT: Syncope, major depression, acute mental status changes, and delirium. HISTORY OF PRESENT ILLNESS AND PHYSICAL EXAMINATION: Details of this man's history and physical can be found in the initial workup. LABORATORY STUDIES: While he is in the hospital he had laboratory studies, details of which can be found in the laboratory section of his chart. COURSE IN THE HOSPITAL: After admission, he was placed on bedrest, started on intravenous fluids, and placed on suicide precautions. He was seen by Psychiatry. It was determined that he was extremely depressed. He also carries a diagnosis of schizoaffective disorder, and bipolar depression. He indicated that he really felt that he needed help and he was also found to be confused at times and delirious. He was stabilized and Psychiatry felt that he should be admitted to the psych floor, even though he did not want to be. He was petitioned. FINAL DIAGNOSES: 1. Syncopal episode. 2. Major depression. 3. Schizoaffective disorder. 4. Bipolar depression. 5. Severe coronary artery disease. 6. Unstable angina. 7. Chronic obstructive pulmonary disease. 8. Right pleural effusion. OPERATIONS: None. CONSULTATIONS: Psychiatry. MMODL / IJN: [id number] /
== END 2025-03-05 15:42 ==
LOC: EC 04:02 → 1SOBS 04:32 → 5NMEDONC 23:42
PROVIDERS: ADMIT Family Medicine; ATTEND Family Medicine
DX: R55 Syncope and collapse (principal); R41.82 Altered mental status, unspecified; F25.0 Schizoaffective disorder, bipolar type; I25.110 Atherosclerotic heart disease of native coronary artery with unstable angina pectoris; I13.0 Hypertensive heart and chronic kidney disease with heart failure and stage 1 through stage 4 chronic kidney disease, or unspecified chronic kidney disease; I50.22 Chronic systolic (congestive) heart failure; N18.9 Chronic kidney disease, unspecified; I48.0 Paroxysmal atrial fibrillation; I25.5 Ischemic cardiomyopathy; J96.11 Chronic respiratory failure with hypoxia; J44.9 Chronic obstructive pulmonary disease, unspecified; K21.9 Gastro-esophageal reflux disease without esophagitis; E78.5 Hyperlipidemia, unspecified; G47.30 Sleep apnea, unspecified; F41.9 Anxiety disorder, unspecified; F17.290 Nicotine dependence, other tobacco product, uncomplicated; I25.2 Old myocardial infarction; Z95.5 Presence of coronary angioplasty implant and graft; Z99.81 Dependence on supplemental oxygen; Z79.01 Long term (current) use of anticoagulants; Z79.899 Other long term (current) drug therapy; Z79.51 Long term (current) use of inhaled steroids; Z79.84 Long term (current) use of oral hypoglycemic drugs; Z91.040 Latex allergy status
CPT/HCPCS: 96376 ×2; 96372; 96374; 99285; 80053; 80048; 83690; 83735; 84100; 84484 ×2; 85025 ×2; 81001; 80306; 87635; 71045; G0378 ×3; S4990 ×3; J1630; J1885 ×2

== ENCOUNTER 2025-03-05 14:52 | Inpatient (IN) | payer MEDICARE, MEDICAID ==
[2025-03-05] MEDS ORDERED: OLANZapine ODT 5 MG TAB PO PRN (15:02)
[2025-03-05] MEDS ORDERED: OLANZapine 10 MG VIAL IM PRN (15:02)
[2025-03-05] MEDS ORDERED: LORazepam 2 MG/ML INJ IM PRN (15:02)
[2025-03-05] MEDS ORDERED: MAGNESIUM HYDROXIDE 2,400 MG/30 ML CUP PO PRN (15:02)
[2025-03-05] MEDS ORDERED: MAG HYDROX/AL HYDROX/SIMETH 355 ML BOTTLE PO PRN (15:02)
[2025-03-05] MEDS: IBUPROFEN 600 MG TAB PO PRN (16:14)
[2025-03-05] MEDS: SODIUM BICARBONATE TAB 650 MG TAB PO SCH (16:37)
[2025-03-05] MEDS: carvediloL 3.125 MG TAB PO SCH (17:30)
[2025-03-05 19:02] LABS: Glucose,Whole Blood 147 mg/dL (70-110)
[2025-03-05] MEDS: SYMBICORT 160-4.5 MCG INHALER (MHU) INHALATION SCH (20:39)
[2025-03-05] MEDS: LORazepam 1 MG TAB PO PRN (20:40)
[2025-03-05] MEDS: SACUBITRIL/VALSARTAN 24 MG-26 MG TABLET PO SCH (20:40)
[2025-03-05] MEDS: QUEtiapine 100 MG TAB PO SCH (20:40)
[2025-03-05] MEDS: APIXABAN 2.5 MG TABLET PO SCH (20:40)
[2025-03-05] MEDS: oxyCODONE-APAP 5-325MG 1 EACH TAB PO PRN (22:41)
[2025-03-05] MEDS: hydrOXYzine HCL 25 MG TAB PO PRN (23:20)
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
[2025-03-06] MEDS: FOLIC ACID 1 MG TAB PO SCH (08:31)
[2025-03-06] MEDS: ATORVASTATIN 40 MG TAB PO SCH (08:31)
[2025-03-06] MEDS: NICOTINE 14MG/24HR PATCH TRANSDERM SCH (08:31)
[2025-03-06] MEDS: FUROSEMIDE 40 MG TAB PO SCH (08:32)
[2025-03-06] MEDS: SPIRONOLACTONE 25 MG TAB PO SCH (08:32)
[2025-03-06] MEDS: DAPAGLIFLOZIN PROPANEDIOL 10 MG TABLET PO SCH (08:32)
[2025-03-06 10:49] VITALS: RESP 16
[2025-03-06] MEDS: ACETAMINOPHEN TAB 325 MG TAB PO PRN (11:42)
[2025-03-06 15:18] LABS: Chol/HDL Ratio 3.24 Ratio; LDL Cholesterol,Calculated 52.3 mg/dL (0.0-131.0)
--- NOTE | 2025-03-07 00:39 | HP ---
HISTORY AND PHYSICAL CHIEF COMPLAINT: Major depression. HISTORY OF PRESENT ILLNESS: This gentleman came in the medical floor after syncopal episode. He has a long- standing history of coronary artery disease, COPD, low back pain. When he was in the hospital this time he stated that he is extremely depressed and was seen by Psychiatry and arrangements were made for him to be admitted to the psychiatric unit. He was diagnosed per psychiatrist he is having bipolar depression and schizoaffective disorder. REVIEW OF SYSTEMS: At the present time, he denies any chest pain, shortness of breath, etc. Past medical history, family history, personal and social histories are all extensive and detail. He has had this longstanding history of severe coronary artery disease including many infarctions, 2 coronary artery bypass graft procedures, multiple stents and atherosclerotic cardiomyopathy and congestive heart failure. He also continues to smoke. Remainder of his history is unremarkable. PHYSICAL EXAMINATION: VITAL SIGNS: Normal. HEAD, EARS, EYES, NOSE, MOUTH AND THROAT: Normal. CHEST: Demonstrates poor breath sounds at the right base where he has had a chronic right pleural effusion. CARDIAC: It sounds like sinus rhythm. He has a history of atrial fibrillation. ABDOMEN: Soft and slightly protuberant. EXTREMITIES: Normal. IMPRESSION: 1. Major depression. 2. Bipolar disorder. 3. Schizoaffective disorder. 4. Coronary artery disease. 5. Atherosclerotic cardiomyopathy. 6. Congestive heart failure with reduced ejection fraction. 7. Atrial fibrillation. 8. Chronic obstructive pulmonary disease. 9. Right pleural effusion. RECOMMENDATION: None. MMODL / IJN: [id number] /
[2025-03-07 09:32] VITALS: BP 120/71; PULSE 92; TEMP 97.6
--- NOTE | 2025-03-07 11:57 | P.DS ---
Providers Date of admission: 03/05/25 15:58 Admission HPI: Admission note was completed by Dr. Wang "The patient presented to the ER on 03/03/2025 due to shortness of breath and altered mental status. While in the ER patient's presentation was somewhat bizarre and psychiatry was consulted. A psychiatric consultation revealed that the patient might be manic at the time and started Seroquel 100 mg at bedtime due to the lack of sleep. Additionally, he has a history of schizophrenia. He was admitted to the floors where he was placed on fluid and observed. At this time he had told a nurse he was going down to his car with his fiance, kid and gun. He would not further elaborate on what he was discussing at that point. It was felt that at this time due to the patient's mental health condition that he should be admitted to the psychiatric unit for further evaluation. Meeting with the patient continues to deny ever saying this and he had indicated he wanted "a recording of it". He notes that he "Lights came on" after being started on the Seroquel. He denies any going depression or anxiety. He notes that he slept well last night and his energy is good. He notes that his appetite and concentration are good. He denies any feelings of helplessness, hopelessness or worthlessness. He denies any crying or guilt or shame. He denies suicidal or homicidal ideations. Currently he denies any racing thoughts, mood swings, pressured speech or grandiose thoughts. He denies any auditory or visual hallucinations. He denies any paranoia. Review of systems was negative for OCD, PTSD and anxiety." Hospital course: Upon admission to the unit patient was directable and agreeable to commence treatment and signed adult voluntary form. Upon entering the unit the patient was extremely cooperative and engaged. The patient's previous manic presentation dissipated. Patient got along well with other patients on the unit and followed unit protocol. Patient was compliant with the medications and denied any side effects throughout hospital course. Patient was started on Seroquel. Patient spoke of his stressors and engaged in therapy both group and individual. Patient was also seen by medical team for history and physical exam. Patient was able to ambulate without his walker. Throughout the course of the hospitalization patient gradually improved with regards to mood, anxiety, sleep and returned back to their baseline level of functioning became more future oriented with improved insight and judgment. On the day of discharge patient denied any suicidal or homicidal ideations intent or plan denied any auditory or visual hallucinations. Patient endorsed wanting to live for their health and family. The patient denied any access to guns or weapons. Patient denied any paranoia and did not endorse any delusions. Patient does not have a significant history of substance abuse. Patient elected to do outpatient substance use treatment program through their outpatient provider. Patient was also counseled on the medications and need for regular compliance and was encouraged to follow-up with their outpatient appointment for mental health and also for primary care. Prior to discharge a family meeting will be arranged by social media manager to answer any questions and ensure safety upon discharge incuding making sure that guns/weapons are either removed from the home or locked away. Patient has not voiced suicidal or homicidal thoughts throughout his hospitalization. He continued to deny any access to firearms. He did not present with racing thoughts or mood swings and notes that he has no depression or anxiety. He expressed a safety plan including calling 911 and [phone]. Mental status exam: General Appearance: Patient appears to be his stated age is alert, pleasant, and cooperative. Patient is in no acute distress and has improved hygiene and grooming Behavior: Patient is calmly seated without any agitated behavior. Speech: Patient's speech is fluent and nonpressured. Mood/Affect: Patient reports their mood is "better good", affect is congruent and euthymic. Suicidality/Homicidality: Patient denies having any suicidal or homicidal ideation intent or plan. Perceptions: Patient denies any auditory or visual hallucinations. Though content/process: There is no evidence of any delusional thought content and thought process is linear and goal-directed. More future oriented Memory and concentration: AOX3, grossly intact for the purposes of this session. Can spell "WORLD" backwards correctly. Judgment and insight: Chronically poor, however has improved with guarded prognosis Diagnosis: Schizoaffective disorder bipolar type Plan: -Continue with discharge today as patient has improved and stabilized psychiatrically and is not currently an imminent threat to themself and/or others. Patient will remain at chronically elevated risk for harm to self and/or others due to their impulsivity and substance abuse. -Continue medications: Seroquel 100 mg take 1 tablet by mouth twice daily for schizoaffective disorder -Patient was counseled on the need for medication compliance and appropriate follow-up at mental health and also primary care for medical issues. Patient verbalized understanding and agreed. -Social work to help coordinate patients discharge today arrange for and conduct family meeting to ensure safety upon discharge and answer any questions/concerns. also to ensure safe home environment that guns/weapons are either removed from the home or locked away. Social work also to arrange for patients follow up appointments with [facility] for psychiatric care along with follow up with primary care provider. -Patient counseled on abstaining from recreational drugs and marijuana and alcohol. Was informed/educated on the adverse effects on their physical and mental health. Patient verbally agreed and understood. -Patient was instructed to return to the hospital or seek immediate medical care if their psychiatric or medical symptoms do worsen or reoccur. Expected date of discharge: 03/07/25 Attending physician: Tenzin Lentz MD Consults: 03/05/25 15:02 Consult Physician Routine Consulting Provider: Alexx Gee Consult Reason/Comments: History and Physical, New Admission Do you want consulting provider notified?: Yes Primary care physician: Alexx Gee - Discharge Diagnosis(es) (1) Schizophrenia Current Visit: Yes Status: Chronic Priority: Low (2) Altered mental status Current Visit: No Status: Resolved Patient Condition at Discharge: Fair Plan - Discharge Summary New Discharge Prescriptions: No Action carvediloL [Coreg] 3.125 mg PO BID Furosemide [Lasix] 40 mg PO DAILY Dapagliflozin Propanediol [Farxiga] 10 mg PO DAILY Budesonide/Formoterol Fumarate [Symbicort 160-4.5 Mcg Inhaler] 2 puff INHALATION RT-BID Atorvastatin [Lipitor] 40 mg PO DAILY oxyCODONE-APAP 5-325MG [Percocet 5-325 mg] 1 tab PO Q6H PRN PRN Reason: Pain Sodium Bicarbonate Tab 650 mg PO TID Apixaban [Eliquis] 2.5 mg PO BID hydrOXYzine HCL [Atarax] 50 mg PO HS PRN PRN Reason: Insomnia Spironolactone [Aldactone] 25 mg PO DAILY Sacubitril/Valsartan [Entresto 24 mg-26 mg Tablet] 1 tab PO BID Folic Acid 1 mg PO DAILY ALPRAZolam [Xanax] 2 mg PO TID PRN PRN Reason: Anxiety QUEtiapine [SEROquel] 100 mg PO BID tab Discharge Medication List Apixaban [Eliquis] 2.5 mg PO BID 12/07/24 [History] Atorvastatin [Lipitor] 40 mg PO DAILY 03/02/25 [History] Budesonide/Formoterol Fumarate [Symbicort 160-4.5 Mcg Inhaler] 2 puff INHALATION RT-BID 03/02/25 [History] Dapagliflozin Propanediol [Farxiga] 10 mg PO DAILY 03/02/25 [History] Folic Acid 1 mg PO DAILY 03/02/25 [History] Furosemide [Lasix] 40 mg PO DAILY 03/02/25 [History] Sacubitril/Valsartan [Entresto 24 mg-26 mg Tablet] 1 tab PO BID 03/02/25 [History] Sodium Bicarbonate Tab 650 mg PO TID 03/02/25 [History] Spironolactone [Aldactone] 25 mg PO DAILY 03/02/25 [History] carvediloL [Coreg] 3.125 mg PO BID 03/02/25 [History] hydrOXYzine HCL [Atarax] 50 mg PO HS PRN 03/02/25 [History] oxyCODONE-APAP 5-325MG [Percocet 5-325 mg] 1 tab PO Q6H PRN 03/02/25 [History] ALPRAZolam [Xanax] 2 mg PO TID PRN 03/04/25 [History] QUEtiapine [SEROquel] 100 mg PO BID tab 03/05/25 [Rx] Activity/Diet/Wound Care/Special Instructions: Avoid the use of street drugs and alcohol. Take all medications as prescribed. When you are in need of refills on your medications, please contact your medical provider and/or outpatient psychiatrist/provider to have this done. Please go to your scheduled outpatient appointment for aftercare treatment. If symptoms return or become worse, call the crisis line at and/or go to the nearest emergency room for evaluation. National Suicide Hotline [address] [facility] confidentiality statement: "The information contained in this communication, including attachments, is confidential, may be privileged, and is intended only for the use of the named recipient(s). Unauthorized use, disclosure, forwarding or copying is strictly prohibited and may be unlawful. If you have received this communication in error, please notify me IMMEDIATELY at the phone number or pager listed above.
== END 2025-03-07 15:08 | disposition home or self-care (01) | DRG 885 ==
LOC: 3MHU 15:58
PROVIDERS: ADMIT Psychiatry & Neurology Psychiatry; ATTEND Psychiatry & Neurology Psychiatry
DX: F25.0 Schizoaffective disorder, bipolar type (principal); I42.9 Cardiomyopathy, unspecified; I50.20 Unspecified systolic (congestive) heart failure; J90 Pleural effusion, not elsewhere classified; J44.9 Chronic obstructive pulmonary disease, unspecified; R45.851 Suicidal ideations; I48.91 Unspecified atrial fibrillation; I25.2 Old myocardial infarction; F41.9 Anxiety disorder, unspecified; I25.10 Atherosclerotic heart disease of native coronary artery without angina pectoris; Z79.899 Other long term (current) drug therapy; Z88.8 Allergy status to other drugs, medicaments and biological substances; Z91.040 Latex allergy status; F17.210 Nicotine dependence, cigarettes, uncomplicated; Z71.6 Tobacco abuse counseling
CPT/HCPCS: 80061; 83036

== ENCOUNTER 2025-03-10 18:46 | Emergency (ER) | payer MEDICARE, OTHER ==
[2025-03-10 18:51] VITALS: PULSE 82; RESP 18; TEMP 97.9
--- NOTE | 2025-03-10 18:54 | ED ---
Fall HPI - General Chief Complaint: Fall Stated Complaint: Fall/ head injury Time Seen by Provider: 03/10/25 18:52 Source: patient, RN notes reviewed, old records reviewed Mode of arrival: wheelchair Limitations: no limitations - History of Present Illness Initial Comments: This is a 69 male to the ER for evaluation of pain severe pain after a fall fall with hitting head, patient is on Eliquis blood thinner A-fib, patient presents for fall with head injury back pain right wrist pain, fall was mechanical in nature no headache chest pain or shortness of breath prior to fall MD Complaint: fall -: hour(s) When Fall Occurred: 1 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 Fall Witnessed: yes, by family Place Fall Occurred: home Loss of Consciousness: none Prolonged Down Time?: no Symptoms Prior to Fall: none Location: head, back Location - Extremities: Right: Hand Quality: sharp, stabbing Context: tripped/slipped Associated Symptoms: headache - Related Data Home Medications Medication Instructions Recorded Confirmed Apixaban [Eliquis] 2.5 mg PO BID 12/07/24 03/05/25 Atorvastatin [Lipitor] 40 mg PO DAILY 03/02/25 03/05/25 Budesonide/Formoterol Fumarate 2 puff INHALATION RT-BID 03/02/25 03/05/25 [Symbicort 160-4.5 Mcg Inhaler] Dapagliflozin Propanediol [Farxiga] 10 mg PO DAILY 03/02/25 03/05/25 Folic Acid 1 mg PO DAILY 03/02/25 03/05/25 Furosemide [Lasix] 40 mg PO DAILY 03/02/25 03/05/25 Sacubitril/Valsartan [Entresto 24 1 tab PO BID 03/02/25 03/05/25 mg-26 mg Tablet] Sodium Bicarbonate Tab 650 mg PO TID 03/02/25 03/05/25 Spironolactone [Aldactone] 25 mg PO DAILY 03/02/25 03/05/25 carvediloL [Coreg] 3.125 mg PO BID 03/02/25 03/05/25 hydrOXYzine HCL [Atarax] 50 mg PO HS PRN 03/02/25 03/05/25 oxyCODONE-APAP 5-325MG [Percocet 1 tab PO Q6H PRN 03/02/25 03/05/25 5-325 mg] Previous Rx's Medication Instructions Recorded QUEtiapine [SEROquel] 100 mg PO BID 30 Days tab 03/07/25 Allergies Allergy/AdvReac Type Severity Reaction Status Date / Time latex Allergy Swelling Verified 03/10/25 18:51 atorvastatin [From Lipitor] AdvReac JOINT PAIN Verified 03/10/25 18:51 Review of Systems ROS Statement: Those systems with pertinent positive or pertinent negative responses have been documented in the HPI. ROS Other: All systems not noted in ROS Statement are negative. Past Medical History Past Medical History: Coronary Artery Disease (CAD), Chest Pain / Angina, Heart Failure, COPD, GERD/Reflux, Hyperlipidemia, Hypertension, Myocardial Infarction (NE), Osteoarthritis (OA), Sleep Apnea/CPAP/BIPAP Additional Past Medical History / Comment(s): Chronic back pain, left leg weakness. O2 as needed, 3LNC. States unsure about having had a heart attack. Uses CPAP Last Myocardial Infarction Date:: 11/11/22 History of Any Multi-Drug Resistant Organisms: None Reported Past Surgical History: Back Surgery, Cholecystectomy, Coronary Bypass/CABG, Heart Catheterization With Stent Additional Past Surgical History / Comment(s): Back surgery X2 with cage, left tennis elbow surgery, heart stents X7, colonoscopy. Open heart surgeryx2. emergency CABG [facility], thrombectomy. April Past Anesthesia/Blood Transfusion Reactions: No Reported Reaction Additional Past Anesthesia/Blood Transfusion Reaction / Comment(s): Pt received blood during CABG without reaction. Pt states,"I can't have anymore surgeries becuase I stop breathing." "That's what they told my fiance'" Date of Last Stent Placement:: Oct 2022 Past Psychological History: Anxiety, Depression, PTSD Smoking Status: Current every day smoker, Vaper Past Alcohol Use History: None Reported Past Drug Use History: None Reported - Past Family History Father Family Medical History: Coronary Artery Disease (CAD), Deep Vein Thrombosis (DVT), GERD/Reflux, Hyperlipidemia, Myocardial Infarction (NE) Additional Family Medical History / Comment(s): Father of a NE in his 80's. Mother Family Medical History: Coronary Artery Disease (CAD), Myocardial Infarction (NE) Additional Family Medical History / Comment(s): Mother of a NE. Brother(s) Family Medical History: Myocardial Infarction (NE) Additional Family Medical History / Comment(s): . Sister(s) Family Medical History: Cancer, Diabetes Mellitus Additional Family Medical History / Comment(s): Lung cancer. Other sister had Diabetes. General Exam Limitations: no limitations General appearance: alert, in no apparent distress Head exam: Present: atraumatic, normocephalic, normal inspection Eye exam: Present: normal appearance, PERRL, EOMI. Absent: scleral icterus, conjunctival injection, periorbital swelling ENT exam: Present: normal exam, mucous membranes moist Neck exam: Present: normal inspection. Absent: tenderness, meningismus, lymphadenopathy Respiratory exam: Present: normal lung sounds bilaterally. Absent: respiratory distress, wheezes, rales, rhonchi, stridor Cardiovascular Exam: Present: regular rate, normal rhythm, normal heart sounds. Absent: systolic murmur, diastolic murmur, rubs, gallop, clicks GI/Abdominal exam: Present: soft, normal bowel sounds. Absent: distended, tenderness, guarding, rebound, rigid Extremities exam: Present: normal inspection, full ROM, normal capillary refill. Absent: tenderness, pedal edema, joint swelling, calf tenderness Back exam: Present: normal inspection Neurological exam: Present: alert, oriented X3, CN II-XII intact Psychiatric exam: Present: normal affect, normal mood Skin exam: Present: warm, dry, intact, normal color. Absent: rash Course Vital Signs 03/10/25 18:47 Temperature 97.9 F Pulse Rate 82 Respiratory 18 Rate Blood Pressure 143/70 O2 Sat by Pulse 99 Oximetry - Reevaluation(s) Reevaluation #1: 03/10/25 19:59 Medical records reviewed Reevaluation #2: 03/10/25 19:59 Patient pain is improved Reevaluation #4: Was pt. sent in by a medical professional or institution (, PA, GOVERNMENT CLERK, urgent care, hospital, or residential...) When possible be specific @ -no Did you speak to anyone other than the patient for history (EMS, parent, family, police, friend...)? What history was obtained from this source @ -no Did you review nursing and triage notes (agree or disagree)? Why? @ -agree Are old charts reviewed (outside hosp., previous admission, EMS record, old EKG, old radiological studies, urgent care reports/EKG's, residential records)? Report findings @ -yes Differential Diagnosis (chest pain, altered mental status, abdominal pain women, abdominal pain men, vaginal bleeding, weakness, fever, dyspnea, syncope, headache, dizziness, GI bleed, back pain, seizure, CVA, palpatations, mental health, musculoskeletal)? @ -prior EKG interpreted by me (3pts min.). @ -yes X-rays interpreted by me (1pt min.). @ -yes negative for acute disease CT interpreted by me (1pt min.). @ -no U/S interpreted by me (1pt. min.). @ -no What testing was considered but not performed or refused? (CT, X-rays, U/S, labs)? Why? @ -none What meds were considered but not given or refused? Why? @ -none Did you discuss the management of the patient with other professionals (professionals i.e. , PA, GOVERNMENT CLERK, lab, RT, psych nurse, social studies department chair, pipeman, teacher, electronic warfare officer, social work case manager)? Give summary @ -no Was smoking cessation discussed for >3mins.? @ -no Was critical care preformed (if so, how long)? @ -no Were there social determinants of health that impacted care today? How? (Homelessness, low income, unemployed, alcoholism, drug addiction, transportation, low edu. Level, literacy, decrease access to med. care, residential, rehab)? @ -none Was there de-escalation of care discussed even if they declined (Discuss DNR or withdrawal of care, Hospice)? DNR status @ -no What co-morbidities impacted this encounter? (DM, HTN, Smoking, COPD, CAD, Cancer, CVA, ARF, Chemo, Hep., AIDS, mental health diagnosis, sleep apnea, morbid obesity)? @ -none Was patient admitted / discharged? Hospital course, mention meds given and route, prescriptions, significant lab abnormalities, going to OR and other pertinent info. @ - Undiagnosed new problem with uncertain prognosis? @ -no Drug Therapy requiring intensive monitoring for toxicity (Heparin, Nitro, Insulin, Cardizem)? @ -no Were any procedures done? @ -no Diagnosis/symptom? @ - Acute, or Chronic, or Acute on Chronic? @ -Acute Uncomplicated (without systemic symptoms) or Complicated (systemic symptoms)? @ -Complicated Side effects of treatment? @ -no Exacerbation, Progression, or Severe Exacerbation? @ -exacerbation Poses a threat to life or bodily function? How? (Chest pain, USA, NE, pneumonia, PE, COPD, DKA, ARF, appy, cholecystitis, CVA, Diverticulitis, Homicidal, Suicidal, threat to staff... and all critical care pts) @ -yes Disposition Clinical Impression: Fall, Back pain, Head injury, Right wrist pain Disposition: HOME SELF-CARE Condition: Good Instructions (If sedation given, give patient instructions): Fall Prevention for Older Adults (ED), Contusion in Adults (ED), Head Injury (ED) Is patient prescribed a controlled substance at d/c from ED?: No Referrals: Alexx Gee MD [Primary Care Provider] - 1-2 days Time of Disposition: 21:00
--- NOTE | 2025-03-10 19:25 | CT ---
EXAMINATION TYPE: CT brain cspine wo con DATE OF EXAM: 03/10/2025 7:09 PM COMPARISON: 12/17/2024 CLINICAL INDICATION: Male, 69 years old with history of fall; fall on thinners unresponsive, pain TECHNIQUE: Brain: Multiple axial CT images of the brain were obtained without IV contrast. Cspine: Axial CT images from the skull base to the inferior aspect of T2 we obtained without intraven ous contrast. Coronal and sagittal reformatted images were also reviewed. . CT DLP: 1534 mGycm, Automated exposure control for dose reduction was used. FINDINGS: Brain: Extra-axial spaces: No abnormal extra-axial fluid collections. Ventricular system: Within normal limits Cerebral parenchyma: No acute intraparenchymal hemorrhage or mass effect. The callaway-white junction is well differentiated. Cerebellum: Unremarkable. Mass effect: No evidence of midline shift. Intracranial vasculature: unremarkable Soft tissues: Normal. Calvarium/osseous structures: No depressed skull fracture. Paranasal sinuses and mastoid air cells: Clear. Visualized orbits: Orbital contents are intact. Cervical spine: Fracture: None. Osseous structures: Multilevel degenerative disc disease changes with endplate spurring and disc oste ophyte complex's. Vertebral alignment: Within normal limits. Spinal canal/Neural Foramina: No evidence of significant spinal canal narrowing. No evidence for sign ificant neural foraminal stenosis. Neck soft tissues: Prevertebral soft tissues are within normal limits. Other: The airway is patent. The lung apices are clear. Atherosclerotic plaque at the carotid bifurca tions. IMPRESSION: 1. No acute intracranial process. 2. No evidence of cervical spine fracture. 3. Mild multilevel degenerative disc disease. [facility], , 03/10/2025 7:23 PM
[2025-03-10] MEDS: HYDROmorphone 1 MG/ML 1 ML SYRINGE IM STA (19:47)
--- NOTE | 2025-03-10 20:27 | XR ---
EXAMINATION TYPE: XR chest 1V DATE OF EXAM: 03/10/2025 8:13 PM COMPARISON: Chest radiographs from 03/04/2025 CLINICAL INDICATION: Male, 69 years old with history of fall; pain TECHNIQUE: XR chest 1V Frontal view of the chest. FINDINGS: Lungs/Pleura: Blunting of the right costophrenic angle. There is no evidence of left pleural effusio n, focal consolidation, or pneumothorax Pulmonary vascularity: Pulmonary vascular congestion. Heart/mediastinum: Cardiomediastinal silhouette is enlarged. Musculoskeletal: No acute osseous pathology. Midline sternotomy wires are noted. IMPRESSION: Small right pleural effusion with pulmonary vascular congestion. [facility], , 03/10/2025 8:25 PM
--- NOTE | 2025-03-10 20:44 | XR ---
EXAMINATION TYPE: XR wrist complete RT DATE OF EXAM: 03/10/2025 8:14 PM COMPARISON: None CLINICAL INDICATION: Male, 69 years old with history of fall; PHH, pain TECHNIQUE: XR wrist complete RT; examined in the Frontal, navicular, lateral, and oblique. FINDINGS: No acute osseous pathology, joint dislocation, or joint effusion. No evidence of any soft tissue swelling is seen. Surgical clips present. IMPRESSION: No acute osseous pathology. [facility], , 03/10/2025 8:42 PM
--- NOTE | 2025-03-10 20:58 | XR ---
EXAMINATION TYPE: XR lumbar spine 2 or 3V DATE OF EXAM: 03/10/2025 8:14 PM COMPARISON: 09/12/2012. CLINICAL INDICATION: Male, 69 years old with history of fall; PHH, pain TECHNIQUE: XR lumbar spine 2 or 3V - Frontal, lateral and coned in L5-S1 lateral views of the spine. FINDINGS: No evidence of any acute osseous pathology. No evidence of loss of vertebral body height i s seen. There is normal alignment of the lumbar vertebral bodies. Scattered disc space narrowing. Mul tilevel marginal osteophyte formation throughout the visualized spine. There is facet joint arthropat hy throughout the spine. Scattered at least mild neural foraminal stenosis. L5-S1 fixation hardware a ppears intact. Atherosclerosis of the arterial vasculature. Right upper quadrant course thickening cl ips. IMPRESSION: 1. No acute fracture. 2. Moderate multilevel disc degeneration. [facility], , 03/10/2025 8:55 PM
[2025-03-10] MEDS: traMADol 50 MG STARTER PACK 3 TAB BTL PO STA (21:17)
[2025-03-10] MEDS: IBUPROFEN 800 MG TAB PO STA (21:17)
[2025-03-10] MEDS: diphenhydrAMINE 50 MG CAP PO STA (21:17)
[2025-03-10] MEDS: traMADol 50 MG TAB PO STA (21:17)
[2025-03-10 21:31] VITALS: BP 121/71
== END 2025-03-10 21:31 | disposition home or self-care (01) ==
LOC: EC 18:46
DX: S09.90XA Unspecified injury of head, initial encounter (principal); M25.531 Pain in right wrist; M54.9 Dorsalgia, unspecified; F17.290 Nicotine dependence, other tobacco product, uncomplicated; Z91.040 Latex allergy status; Z88.8 Allergy status to other drugs, medicaments and biological substances; Z79.01 Long term (current) use of anticoagulants; W01.0XXA Fall on same level from slipping, tripping and stumbling without subsequent striking against object, initial encounter; Y92.009 Unspecified place in unspecified non-institutional (private) residence as the place of occurrence of the external cause
CPT/HCPCS: 72100; 73110; 71045; 72125; 70450; 99284; 96372; J1171

== ENCOUNTER 2025-03-15 00:38 | Emergency (ER) | payer MEDICARE, OTHER ==
[2025-03-15 00:42] VITALS: TEMP 98.1
[2025-03-15 01:50] LABS: Basophils # (A) 0.05 10*3/uL (0.00-0.10); Basophils % (A) 0.7 %; Eosinophils # (A) 0.14 10*3/uL (0.04-0.35); Eosinophils % (A) 1.9 %; HGB 14.2 g/dL (13.0-17.0); Lymphocytes # (A) 1.78 10*3/uL (0.90-5.00); Lymphocytes % (A) 24.6 %; MCH 27.7 pg (27.0-32.0); MCV 83.8 fL (80.0-97.0); Mean Platelet Volume 12.2 fL (9.5-12.2); Monocytes # (A) 0.98 10*3/uL (0.20-1.00); Monocytes % (A) 13.5 %; Neutrophils # (A) 4.28 10*3/uL (1.80-7.70); Neutrophils % (A) 59.2 %; Platelet Count 157 10*3/uL (140-440); RBC 5.13 10*6/uL (4.40-5.60); RDW 17.2 % (11.5-14.5); WBC 7.24 10*3/uL (4.50-10.00)
[2025-03-15 02:14] LABS: ALT 34 U/L (4-49); AST 44 U/L (17-59); African American GFR (CKD) >90 (>60 ml/min/1.73 sqM); Albumin 3.9 g/dL (3.5-5.0); Alkaline Phosphatase 138 U/L (38-126); Anion Gap 11 mmol/L; Blood Urea Nitrogen 21 mg/dL (9-20); Calcium 9.1 mg/dL (8.4-10.2); Carbon Dioxide 21 mmol/L (22-30); Chloride 103 mmol/L (98-107); Glucose 106 mg/dL (74-99); Magnesium 1.9 mg/dL (1.6-2.3); Non-African American GFR(CKD) 83 (>60 ml/min/1.73 sqM); Sodium 135 mmol/L (137-145); Total Bilirubin 0.8 mg/dL (0.2-1.3); Total Protein 7.1 g/dL (6.3-8.2)
[2025-03-15 02:15] LABS: INR 0.9 (<1.2); Prothrombin Time 10.5 sec (10.0-12.5)
[2025-03-15 02:16] LABS: Partial Thromboplastin Time 24.6 sec (22.0-30.0)
[2025-03-15] MEDS: ACETAMINOPHEN TAB 500 MG TAB PO STA (03:12)
[2025-03-15] MEDS: MORPHINE SULFATE 4 MG/ML SYRINGE IVP STA (03:13)
--- NOTE | 2025-03-15 03:39 | ED ---
SOB HPI - General Chief Complaint: Shortness of Breath Stated Complaint: MICKIE Time Seen by Provider: 03/15/25 03:37 Source: patient, RN notes reviewed Mode of arrival: wheelchair Limitations: no limitations - History of Present Illness Initial Comments: 69-year-old male with history of COPD, CHF, hypertension, hyperlipidemia, CAD presenting for shortness of breath x 3 hours. States at midnight tonight he suddenly began to feel like he could not breathe and became very anxious with associated chest pain. He is requesting to be "put to sleep" as he states he cannot breathe, is in full body pain, and is very anxious. States this feels like previous anxiety attacks. He is also complaining of cough, nasal congestion, and chills. Denies leg swelling. - Related Data Home Medications Medication Instructions Recorded Confirmed Apixaban [Eliquis] 2.5 mg PO BID 12/07/24 03/05/25 Atorvastatin [Lipitor] 40 mg PO DAILY 03/02/25 03/05/25 Budesonide/Formoterol Fumarate 2 puff INHALATION RT-BID 03/02/25 03/05/25 [Symbicort 160-4.5 Mcg Inhaler] Dapagliflozin Propanediol [Farxiga] 10 mg PO DAILY 03/02/25 03/05/25 Folic Acid 1 mg PO DAILY 03/02/25 03/05/25 Furosemide [Lasix] 40 mg PO DAILY 03/02/25 03/05/25 Sacubitril/Valsartan [Entresto 24 1 tab PO BID 03/02/25 03/05/25 mg-26 mg Tablet] Sodium Bicarbonate Tab 650 mg PO TID 03/02/25 03/05/25 Spironolactone [Aldactone] 25 mg PO DAILY 03/02/25 03/05/25 carvediloL [Coreg] 3.125 mg PO BID 03/02/25 03/05/25 hydrOXYzine HCL [Atarax] 50 mg PO HS PRN 03/02/25 03/05/25 oxyCODONE-APAP 5-325MG [Percocet 1 tab PO Q6H PRN 03/02/25 03/05/25 5-325 mg] Previous Rx's Medication Instructions Recorded QUEtiapine [SEROquel] 100 mg PO BID 30 Days tab 03/07/25 Allergies Allergy/AdvReac Type Severity Reaction Status Date / Time latex Allergy Swelling Verified 03/15/25 00:40 atorvastatin [From Lipitor] AdvReac JOINT PAIN Verified 03/15/25 00:40 Review of Systems ROS Statement: Those systems with pertinent positive or pertinent negative responses have been documented in the HPI. ROS Other: All systems not noted in ROS Statement are negative. Past Medical History Past Medical History: Coronary Artery Disease (CAD), Chest Pain / Angina, Heart Failure, COPD, GERD/Reflux, Hyperlipidemia, Hypertension, Myocardial Infarction (LA), Osteoarthritis (OA), Sleep Apnea/CPAP/BIPAP Additional Past Medical History / Comment(s): Chronic back pain, left leg weakness. O2 as needed, 3LNC. States unsure about having had a heart attack. Uses CPAP Last Myocardial Infarction Date:: 11/11/22 History of Any Multi-Drug Resistant Organisms: None Reported Past Surgical History: Back Surgery, Cholecystectomy, Coronary Bypass/CABG, Heart Catheterization With Stent Additional Past Surgical History / Comment(s): Back surgery X2 with cage, left tennis elbow surgery, heart stents X7, colonoscopy. Open heart surgeryx2. emergency CABG [facility], thrombectomy. April Past Anesthesia/Blood Transfusion Reactions: No Reported Reaction Additional Past Anesthesia/Blood Transfusion Reaction / Comment(s): Pt received blood during CABG without reaction. Pt states,"I can't have anymore surgeries becuase I stop breathing." "That's what they told my fiance'" Date of Last Stent Placement:: Oct 2022 Past Psychological History: Anxiety, Depression, PTSD Smoking Status: Current every day smoker, Vaper Past Alcohol Use History: None Reported Past Drug Use History: None Reported - Past Family History Father Family Medical History: Coronary Artery Disease (CAD), Deep Vein Thrombosis (DVT), GERD/Reflux, Hyperlipidemia, Myocardial Infarction (LA) Additional Family Medical History / Comment(s): Father of a LA in his 80's. Mother Family Medical History: Coronary Artery Disease (CAD), Myocardial Infarction (LA) Additional Family Medical History / Comment(s): Mother of a LA. Brother(s) Family Medical History: Myocardial Infarction (LA) Additional Family Medical History / Comment(s): . Sister(s) Family Medical History: Cancer, Diabetes Mellitus Additional Family Medical History / Comment(s): Lung cancer. Other sister had Diabetes. General Exam Limitations: no limitations General appearance: alert, in no apparent distress Head exam: Present: atraumatic, normocephalic, normal inspection Eye exam: Present: normal appearance, PERRL, EOMI. Absent: scleral icterus, conjunctival injection, periorbital swelling ENT exam: Present: normal exam, mucous membranes moist Neck exam: Present: normal inspection. Absent: tenderness, meningismus, lymphadenopathy Respiratory exam: Present: normal lung sounds bilaterally. Absent: respiratory distress, wheezes, rales, rhonchi, stridor Cardiovascular Exam: Present: regular rate, normal rhythm, normal heart sounds. Absent: systolic murmur, diastolic murmur, rubs, gallop, clicks GI/Abdominal exam: Present: soft, normal bowel sounds. Absent: distended, tenderness, guarding, rebound, rigid Extremities exam: Present: normal inspection, full ROM, normal capillary refill. Absent: tenderness, pedal edema, joint swelling, calf tenderness Neurological exam: Present: alert, oriented X3 Psychiatric exam: Present: normal affect, normal mood Skin exam: Present: warm, dry, intact, normal color. Absent: rash Course Vital Signs 03/15/25 03/15/25 03/15/25 00:40 03:13 04:23 Temperature 98.1 F Pulse Rate 87 71 89 Respiratory 16 18 16 Rate Blood Pressure 128/75 113/59 105/69 O2 Sat by Pulse 97 95 96 Oximetry Medical Decision Making - Medical Decision Making Was pt. sent in by a medical professional or institution (, PA, DISCHARGING MACHINE OPERATOR, urgent care, hospital, or usp...) When possible be specific @ -No Did you speak to anyone other than the patient for history (EMS, parent, family, police, friend...)? What history was obtained from this source @ -No Did you review nursing and triage notes (agree or disagree)? Why? @ -I reviewed and agree with nursing and triage notes Were old charts reviewed (outside hosp., previous admission, EMS record, old EKG, old radiological studies, urgent care reports/EKG's, usp records)? Report findings @ -Previous chest x-ray reviewed which revealed right-sided small pleural effusion Differential Diagnosis (chest pain, altered mental status, abdominal pain women, abdominal pain men, vaginal bleeding, weakness, fever, dyspnea, syncope, h eadache, dizziness, GI bleed, back pain, seizure, CVA, palpatations, mental health, musculoskeletal)? @ -Differential Dyspnea: Coronary syndrome, arrhythmia, tamponade, asthma, COPD, pulmonary embolism, pneumonia, pneumothorax, pulmonary effusion, anaphylaxis, diabetic ketoacidosis, flailed chest, pulmonary contusion, diaphragmatic rupture, anemia, neuromuscular, this is not meant to be an all-inclusive list. EKG interpreted by me (3pts min.). @ -As above X-rays interpreted by me (1pt min.). @ -Chest x-ray moderate right pleural effusion similar to previous chest x-ray CT interpreted by me (1pt min.). @ -None done U/S interpreted by me (1pt. min.). @ -None done What testing was considered but not performed or refused? (CT, X-rays, U/S, labs)? Why? @ -None What meds were considered but not given or refused? Why? @ -None Did you discuss the management of the patient with other professionals (professionals i.e. , PA, DISCHARGING MACHINE OPERATOR, lab, RT, psych nurse, social science instructor, carding doubler, teacher, commercial account officer, classification case manager)? Give summary @ -No Was smoking cessation discussed for >3mins.? @ -No Was critical care preformed (if so, how long)? @ -No Were there social determinants of health that impacted care today? How? (Homelessness, low income, unemployed, alcoholism, drug addiction, transportation, low edu. Level, literacy, decrease access to med. care, residential, rehab)? @ -No Was there de-escalation of care discussed even if they declined (Discuss DNR or withdrawal of care, Hospice)? DNR status @ -No What co-morbidities impacted this encounter? (DM, HTN, Smoking, COPD, CAD, Cancer, CVA, ARF, Chemo, Hep., AIDS, mental health diagnosis, sleep apnea, morbid obesity)? @ -None Was patient admitted / discharged? Hospital course, mention meds given and route, prescriptions, significant lab abnormalities, going to OR and other pertinent info. @ -Discharge. 69-year-old male presenting for shortness of breath/chest pain since midnight today. He believes he is having a panic attack and is also re questing pain control as he states he is having full body pain. Lab work largely unremarkable. Troponin and BNP within acceptable limits. Chest x-ray reveals no change from previous chest x-ray. Discussed negative results with patient. I do not identify emergent etiology causing symptoms today. States symptoms have improved. Appropriate return precautions and follow-up care discussed. Case was discussed with my ED attending Dr. Mendes Undiagnosed new problem with uncertain prognosis? @ -No Drug Therapy requiring intensive monitoring for toxicity (Heparin, Nitro, Insulin, Cardizem)? @ -No Were any procedures done? @ -No Diagnosis/symptom? @ -Anxiety Acute, or Chronic, or Acute on Chronic? @ -Acute Uncomplicated (without systemic symptoms) or Complicated (systemic symptoms)? @ -Complicated Side effects of treatment? @ -No Exacerbation, Progression, or Severe Exacerbation? @ -No Poses a threat to life or bodily function? How? (Chest pain, USA, LA, pneumonia, PE, COPD, DKA, ARF, appy, cholecystitis, CVA, Diverticulitis, Homicidal, Suicidal, threat to staff... and all critical care pts) @ -No - Lab Data Result diagrams: 03/15/25 01:20 03/15/25 01:20 Lab Results 03/15/25 03/15/25 03/15/25 Range/Units 01:20 01:20 01:20 WBC 7.24 (4.50-10.00) 10*3/uL RBC 5.13 (4.40-5.60) 10*6/uL Hgb 14.2 (13.0-17.0) g/dL Hct 43.0 (39.6-50.0) % MCV 83.8 (80.0-97.0) fL MCH 27.7 (27.0-32.0) pg MCHC 33.0 (32.0-37.0) g/dL Plt Count 157 (140-440) 10*3/uL MPV 12.2 (9.5-12.2) fL Immature Gran % (Auto) 0.1 % Neutrophils % 59.2 % Lymphocytes % 24.6 % Monocytes % 13.5 % Eosinophils % 1.9 % Basophils % 0.7 % Immature Gran # 0.01 (0.00-0.04) 10*3/uL Neutrophils # 4.28 (1.80-7.70) 10*3/uL Lymphocytes # 1.78 (0.90-5.00) 10*3/uL Monocytes # 0.98 (0.20-1.00) 10*3/uL Eosinophils # 0.14 (0.04-0.35) 10*3/uL Basophils # 0.05 (0.00-0.10) 10*3/uL PT 10.5 (10.0-12.5) sec INR 0.9 (<1.2) APTT 24.6 (22.0-30.0) sec Sodium 135 L (137-145) mmol/L Potassium 4.0 (3.5-5.1) mmol/L Chloride 103 (98-107) mmol/L Carbon Dioxide 21 L (22-30) mmol/L Anion Gap 11 mmol/L BUN 21 H (9-20) mg/dL Creatinine 0.95 (0.66-1.25) mg/dL Est GFR (CKD-EPI)AfAm >90 (>60 ml/min/1.73 sqM) Est GFR (CKD-EPI)NonAf 83 (>60 ml/min/1.73 sqM) Glucose 106 H (74-99) mg/dL Plasma Lactic Acid Tomy (0.7-2.0) mmol/L Calcium 9.1 (8.4-10.2) mg/dL Magnesium 1.9 (1.6-2.3) mg/dL Total Bilirubin 0.8 (0.2-1.3) mg/dL AST 44 (17-59) U/L ALT 34 (4-49) U/L Alkaline Phosphatase 138 H (38-126) U/L Troponin I (0.000-0.034) ng/mL NT-Pro-B Natriuret Pep pg/mL Total Protein 7.1 (6.3-8.2) g/dL Albumin 3.9 (3.5-5.0) g/dL Influenza Type A (PCR) (Not Detectd) Influenza Type B (PCR) (Not Detectd) RSV (PCR) (Not Detectd) SARS-CoV-2 (PCR) (Not Detectd) 03/15/25 03/15/25 03/15/25 Range/Units 01:20 01:20 01:20 WBC (4.50-10.00) 10*3/uL RBC (4.40-5.60) 10*6/uL Hgb (13.0-17.0) g/dL Hct (39.6-50.0) % MCV (80.0-97.0) fL MCH (27.0-32.0) pg MCHC (32.0-37.0) g/dL Plt Count (140-440) 10*3/uL MPV (9.5-12.2) fL Immature Gran % (Auto) % Neutrophils % % Lymphocytes % % Monocytes % % Eosinophils % % Basophils % % Immature Gran # (0.00-0.04) 10*3/uL Neutrophils # (1.80-7.70) 10*3/uL Lymphocytes # (0.90-5.00) 10*3/uL Monocytes # (0.20-1.00) 10*3/uL Eosinophils # (0.04-0.35) 10*3/uL Basophils # (0.00-0.10) 10*3/uL PT (10.0-12.5) sec INR (<1.2) APTT (22.0-30.0) sec Sodium (137-145) mmol/L Potassium (3.5-5.1) mmol/L Chloride (98-107) mmol/L Carbon Dioxide (22-30) mmol/L Anion Gap mmol/L BUN (9-20) mg/dL Creatinine (0.66-1.25) mg/dL Est GFR (CKD-EPI)AfAm (>60 ml/min/1.73 sqM) Est GFR (CKD-EPI)NonAf (>60 ml/min/1.73 sqM) Glucose (74-99) mg/dL Plasma Lactic Acid Tomy 1.0 (0.7-2.0) mmol/L Calcium (8.4-10.2) mg/dL Magnesium (1.6-2.3) mg/dL Total Bilirubin (0.2-1.3) mg/dL AST (17-59) U/L ALT (4-49) U/L Alkaline Phosphatase (38-126) U/L Troponin I 0.019 (0.000-0.034) ng/mL NT-Pro-B Natriuret Pep 760 pg/mL Total Protein (6.3-8.2) g/dL Albumin (3.5-5.0) g/dL Influenza Type A (PCR) (Not Detectd) Influenza Type B (PCR) (Not Detectd) RSV (PCR) (Not Detectd) SARS-CoV-2 (PCR) (Not Detectd) 03/15/25 Range/Units 03:12 WBC (4.50-10.00) 10*3/uL RBC (4.40-5.60) 10*6/uL Hgb (13.0-17.0) g/dL Hct (39.6-50.0) % MCV (80.0-97.0) fL MCH (27.0-32.0) pg MCHC (32.0-37.0) g/dL Plt Count (140-440) 10*3/uL MPV (9.5-12.2) fL Immature Gran % (Auto) % Neutrophils % % Lymphocytes % % Monocytes % % Eosinophils % % Basophils % % Immature Gran # (0.00-0.04) 10*3/uL Neutrophils # (1.80-7.70) 10*3/uL Lymphocytes # (0.90-5.00) 10*3/uL Monocytes # (0.20-1.00) 10*3/uL Eosinophils # (0.04-0.35) 10*3/uL Basophils # (0.00-0.10) 10*3/uL PT (10.0-12.5) sec INR (<1.2) APTT (22.0-30.0) sec Sodium (137-145) mmol/L Potassium (3.5-5.1) mmol/L Chloride (98-107) mmol/L Carbon Dioxide (22-30) mmol/L Anion Gap mmol/L BUN (9-20) mg/dL Creatinine (0.66-1.25) mg/dL Est GFR (CKD-EPI)AfAm (>60 ml/min/1.73 sqM) Est GFR (CKD-EPI)NonAf (>60 ml/min/1.73 sqM) Glucose (74-99) mg/dL Plasma Lactic Acid Tomy (0.7-2.0) mmol/L Calcium (8.4-10.2) mg/dL Magnesium (1.6-2.3) mg/dL Total Bilirubin (0.2-1.3) mg/dL AST (17-59) U/L ALT (4-49) U/L Alkaline Phosphatase (38-126) U/L Troponin I (0.000-0.034) ng/mL NT-Pro-B Natriuret Pep pg/mL Total Protein (6.3-8.2) g/dL Albumin (3.5-5.0) g/dL Influenza Type A (PCR) Not Detected (Not Detectd) Influenza Type B (PCR) Not Detected (Not Detectd) RSV (PCR) Not Detected (Not Detectd) SARS-CoV-2 (PCR) Not Detected (Not Detectd) - EKG Data -: EKG Interpreted by Me EKG Comments: EKG reveals normal sinus rhythm with no acute ST changes. Ventricular rate 76 bpm, parable 127, QRS duration 111, QT/QTc 459/489 Disposition Clinical Impression: Anxiety Disposition: HOME SELF-CARE Condition: Stable Instructions (If sedation given, give patient instructions): Anxiety (ED) Additional Instructions: Please return to the Emergency Department if symptoms worsen or any other concerns. Is patient prescribed a controlled substance at d/c from ED?: No Referrals: Alexx Gee MD [Primary Care Provider] - 1-2 days Time of Disposition: 16:14
[2025-03-15 04:23] VITALS: BP 105/69; PULSE 89; RESP 16
[2025-03-15 04:55] LABS: Influenza A Not Detected (Not Detectd); Influenza B Not Detected (Not Detectd); RSV Not Detected (Not Detectd)
--- NOTE | 2025-03-15 05:13 | XR ---
EXAM: XR Chest, 2 Views CLINICAL HISTORY: difficulty breathing TECHNIQUE: Frontal and lateral views of the chest. COMPARISON: 02/27/25 FINDINGS: Lungs: Mild diffuse airspace opacities in both lungs more on the right. Lungs are slightly underinflated Pleural space: Moderate right pleural effusion, possibly loculated, similar. Mediastinum: Unchanged. Bones/joints: Sternal wires. IMPRESSION: 1. Lung findings can be due to underinflation versus mild pulmonary edema, worse on the right. 2.Moderate right pleural effusion, possibly loculated, similar
== END 2025-03-15 05:00 | disposition home or self-care (01) ==
LOC: EC 00:38
DX: F41.9 Anxiety disorder, unspecified (principal); J90 Pleural effusion, not elsewhere classified; F17.290 Nicotine dependence, other tobacco product, uncomplicated; Z91.040 Latex allergy status; Z88.8 Allergy status to other drugs, medicaments and biological substances
CPT/HCPCS: 36415; 93005; 83880; 80053; 83605; 83735; 84484; 85025; 85610; 85730; 87636; 71046; 99285; 96374; J2270

== ENCOUNTER 2025-04-25 01:03 | Observation (INO) | payer MEDICARE, OTHER ==
[2025-04-25 01:18] VITALS: TEMP 97.4
[2025-04-25] MEDS: ASPIRIN 81 MG PO STA (02:04)
[2025-04-25] MEDS: SODIUM CHLORIDE 0.9% 500 ML 500 ML IV STA (02:06)
[2025-04-25 02:22] LABS: Partial Thromboplastin Time 23.9 sec (22.0-30.0); Prothrombin Time 10.6 sec (10.0-12.5)
[2025-04-25 02:23] LABS: ALT 21 U/L (4-49); AST 30 U/L (17-59); African American GFR (CKD) >90 (>60 ml/min/1.73 sqM); Albumin 3.9 g/dL (3.5-5.0); Alkaline Phosphatase 118 U/L (38-126); Anion Gap 9 mmol/L; Blood Urea Nitrogen 21 mg/dL (9-20); Calcium 9.3 mg/dL (8.4-10.2); Carbon Dioxide 24 mmol/L (22-30); Chloride 102 mmol/L (98-107); Glucose 105 mg/dL (74-99); Magnesium 1.9 mg/dL (1.6-2.3); Non-African American GFR(CKD) >90 (>60 ml/min/1.73 sqM); Potassium 3.8 mmol/L (3.5-5.1); Sodium 135 mmol/L (137-145); Total Bilirubin 0.6 mg/dL (0.2-1.3); Total Protein 6.8 g/dL (6.3-8.2)
[2025-04-25] MEDS: NITROGLYCERIN SL TABS 0.4 MG TAB SUBLINGUAL STA (02:26)
[2025-04-25 02:27] LABS: Basophils # (A) 0.03 10*3/uL (0.00-0.10); Basophils % (A) 0.5 %; Eosinophils # (A) 0.08 10*3/uL (0.04-0.35); Eosinophils % (A) 1.4 %; HCT 40.4 % (39.6-50.0); HGB 13.5 g/dL (13.0-17.0); Lymphocytes # (A) 1.25 10*3/uL (0.90-5.00); Lymphocytes % (A) 22.4 %; MCH 28.5 pg (27.0-32.0); MCHC 33.4 g/dL (32.0-37.0); MCV 85.4 fL (80.0-97.0); Mean Platelet Volume 12.1 fL (9.5-12.2); Monocytes # (A) 0.69 10*3/uL (0.20-1.00); Monocytes % (A) 12.4 %; Neutrophils # (A) 3.51 10*3/uL (1.80-7.70); Neutrophils % (A) 62.9 %; Platelet Count 113 10*3/uL (140-440); RBC 4.73 10*6/uL (4.40-5.60); RDW 16.7 % (11.5-14.5); WBC 5.58 10*3/uL (4.50-10.00)
[2025-04-25 02:31] LABS: NT-Pro-B-Type Natriuretic Pept 1430 pg/mL
[2025-04-25] MEDS ORDERED: ONDANSETRON 4 MG/2 ML VIAL IVP PRN (03:36)
[2025-04-25] MEDS ORDERED: NALOXONE 0.4 MG/ML 1 ML VIAL IV PRN (03:36)
--- NOTE | 2025-04-25 03:38 | ED ---
General Adult HPI - General Chief complaint: Chest Pain Stated complaint: left arm pain headache Time Seen by Provider: 04/25/25 01:45 Source: patient, RN notes reviewed, old records reviewed Mode of arrival: ambulatory Limitations: no limitations - History of Present Illness Initial comments: Patient is a 70-year-old male who presents emergency department planing of chest pain. Is well-known to our emergency department. Does have a history of multiple cardiac stents as well as chronic pain. States he is having left-sided chest pain with radiation down the left arm. Also states that the left arm pain may be secondary to chronic neck pain. States symptoms started earlier this afternoon and has been ongoing. No obvious provocative or palliative factors. Presents for further evaluation. Denies shortness of breath. Denies abdominal pain, nausea, vomiting. He gets shooting tingling sensation down the left arm. Currently not present. - Related Data Home Medications Medication Instructions Recorded Confirmed Apixaban [Eliquis] 2.5 mg PO BID 12/07/24 03/31/25 Atorvastatin [Lipitor] 40 mg PO DAILY 03/02/25 03/31/25 Budesonide/Formoterol Fumarate 2 puff INHALATION RT-BID 03/02/25 03/31/25 [Symbicort 160-4.5 Mcg Inhaler] Dapagliflozin Propanediol [Farxiga] 10 mg PO DAILY 03/02/25 03/31/25 Folic Acid 1 mg PO DAILY 03/02/25 03/31/25 Furosemide [Lasix] 40 mg PO DAILY 03/02/25 03/31/25 Sacubitril/Valsartan [Entresto 24 1 tab PO BID 03/02/25 03/31/25 mg-26 mg Tablet] Sodium Bicarbonate Tab 650 mg PO TID 03/02/25 03/31/25 Spironolactone [Aldactone] 25 mg PO DAILY 03/02/25 03/31/25 carvediloL [Coreg] 3.125 mg PO DAILY 03/02/25 03/31/25 hydrOXYzine HCL [Atarax] 50 mg PO HS PRN 03/02/25 03/31/25 Clopidogrel [Plavix] 75 mg PO DAILY 03/29/25 03/31/25 Ezetimibe [Zetia] 10 mg PO DAILY 03/29/25 03/31/25 QUEtiapine [SEROquel] 100 mg PO HS 03/29/25 03/31/25 Previous Rx's Medication Instructions Recorded Isosorbide Mononitrate ER [Imdur] 15 mg PO DAILY #10 tab 04/01/25 Ranolazine [Ranexa] 500 mg PO Q12HR #20 tab 04/01/25 Allergies Allergy/AdvReac Type Severity Reaction Status Date / Time latex Allergy Swelling Verified 04/25/25 01:18 atorvastatin [From Lipitor] AdvReac JOINT PAIN Verified 04/25/25 01:18 Review of Systems ROS Statement: Those systems with pertinent positive or pertinent negative responses have been documented in the HPI. Review of Systems: CONST: Denies fever EYES: Denies blurry vision ENT: Denies nasal congestion C/V: Endorses chest pain, left arm pain RESP: Denies shortness of breath GI: Denies abdominal pain : Denies dysuria SKIN: Denies rash. MSK: Denies joint pain. NEURO: Denies headache ROS Other: All systems not noted in ROS Statement are negative. Past Medical History Past Medical History: Coronary Artery Disease (CAD), Chest Pain / Angina, Heart Failure, COPD, GERD/Reflux, Hyperlipidemia, Hypertension, Myocardial Infarction ([place]), Osteoarthritis (OA), Sleep Apnea/CPAP/BIPAP Additional Past Medical History / Comment(s): Chronic back pain, left leg weakness. [place] x3. no Cpap at home. Last Myocardial Infarction Date:: 11/11/22 History of Any Multi-Drug Resistant Organisms: None Reported Past Surgical History: Back Surgery, Cholecystectomy, Coronary Bypass/CABG, Heart Catheterization With Stent Additional Past Surgical History / Comment(s): Back surgery X2 with cage, left tennis elbow surgery, heart stents X7, colonoscopy. Open heart surgeryx2. emergency CABG 1969's. thrombectomy. 2023 Bypass Past Anesthesia/Blood Transfusion Reactions: No Reported Reaction Additional Past Anesthesia/Blood Transfusion Reaction / Comment(s): Pt received blood during CABG without reaction. Pt states,"I can't have anymore surgeries becuase I stop breathing." "That's what they told my fiance'" Date of Last Stent Placement:: Oct 2022 Past Psychological History: Anxiety, Depression, PTSD Smoking Status: Current every day smoker - Past Family History Father Family Medical History: Coronary Artery Disease (CAD), Deep Vein Thrombosis (DVT), GERD/Reflux, Hyperlipidemia, Myocardial Infarction ([place]) Additional Family Medical History / Comment(s): Father of a [place] in his 80's. Mother Family Medical History: Coronary Artery Disease (CAD), Myocardial Infarction ([place]) Additional Family Medical History / Comment(s): Mother of a [place]. Brother(s) Family Medical History: Myocardial Infarction ([place]) Additional Family Medical History / Comment(s): . Sister(s) Family Medical History: Cancer, Diabetes Mellitus Additional Family Medical History / Comment(s): Lung cancer. Other sister had Diabetes. General Exam - General Exam Comments Initial Comments: General: Appears in no acute distress. HEAD: Normal with no signs of head trauma. EYES: PERRLA, EOMI, conjunctiva normal, no discharge. ENT: Hearing grossly intact, normal oropharynx. RESPIRATORY: Clear breath sounds bilaterally. No wheezes, rales, or rhonchi. C/V: Regular rate and rhythm. S1 and S2 auscultated, no edema, peripheral pulses 2+ and intact throughout ABD: Abd is soft, nontender, nondistended EXT: Normal range of motion, no obvious deformity tenderness palpation of the left shoulder as well as cervical spine with no obvious deformity or injury. R ecent CT cervical spine shows chronic degenerative changes. No recent injury. SKIN: No rashes or lesions observed on exposed skin. NEURO: Alert and oriented x 4. NIH is 0. GCS 15. No focal neurological deficits including no focal sensory loss. Limitations: no limitations Course Vital Signs 04/25/25 04/25/25 04/25/25 01:14 02:07 04:25 Temperature 97.4 F L Pulse Rate 83 82 64 Respiratory 18 18 18 Rate Blood Pressure 142/73 131/74 102/69 O2 Sat by Pulse 98 97 97 Oximetry Medical Decision Making - Medical Decision Making Was pt. sent in by a medical professional or institution (, PA, RENTAL AGENT, urgent care, hospital, or longterm...) When possible be specific @ -No Did you speak to anyone other than the patient for history (EMS, parent, family, police, friend...)? What history was obtained from this source @ -No Did you review nursing and triage notes (agree or disagree)? Why? @ -I reviewed and agree with nursing and triage notes Were old charts reviewed (outside hosp., previous admission, EMS record, old EKG, old radiological studies, urgent care reports/EKG's, longterm records)? Report findings @ -No old charts were reviewed Differential Diagnosis (chest pain, altered mental status, abdominal pain women, abdominal pain men, vaginal bleeding, weakness, fever, dyspnea, syncope, headache, dizziness, GI bleed, back pain, seizure, CVA, palpatations, mental health, musculoskeletal)? @ -Differential Chest Pain: Stable Angina, Unstable Angina, STEMI, NSTEMI Aortic Dissection, Pneumothorax, Musculoskeletal, Esophageal Spasm GERD, Cholecystitis, Pancreatitis, Zoster, this is not meant to be an all-inclusive list. EKG interpreted by me (3pts min.). @ -As above X-rays interpreted by me (1pt min.). @ -Chest x-ray reveals suspected atelectasis of the lung bases with a similar right-sided pleural effusion to previous chest x-ray. CT interpreted by me (1pt min.). @ -None done U/S interpreted by me (1pt. min.). @ -None done What testing was considered but not performed or refused? (CT, X-rays, U/S, labs)? Why? @ -None What meds were considered but not given or refused? Why? @ -None Did you discuss the management of the patient with other professionals (professionals i.e. , PA, RENTAL AGENT, lab, RT, psych nurse, rn social services, code inspector, teacher, aoc director combat plans officer, case fitter)? Give summary @ -Admitting provider Dr. Gee who accepted the admission. Was smoking cessation discussed for >3mins.? @ -No Was critical care preformed (if so, how long)? @ -No Were there social determinants of health that impacted care today? How? (Homelessness, low income, unemployed, alcoholism, drug addiction, transportation, low edu. Level, literacy, decrease access to med. care, senior care, rehab)? @ -No Was there de-escalation of care discussed even if they declined (Discuss DNR or withdrawal of care, Hospice)? DNR status @ -No What co-morbidities impacted this encounter? (DM, HTN, Smoking, COPD, CAD, Cancer, CVA, ARF, Chemo, Hep., AIDS, mental health diagnosis, sleep apnea, morbid obesity)? @ -None Was patient admitted / discharged? Hospital course, mention meds given and route, prescriptions, significant lab abnormalities, going to OR and other pertinent info. @ -Patient presents with chest pain and left arm pain. Could be cardiogenic in nature but also cannot rule out possibility of musculoskeletal. Had recent CT imaging which does show degenerative changes in the cervical spine. Discussed with the patient this could be radiculopathy but cannot rule out cardiac as he does have a history of multiple cardiac stents. Therefore we will obtain cardiac workup. He was in agreement this plan. Vital signs within acceptable limits. EKG unremarkable. Chest x-ray shows atelectasis with a right subpleural effusion. Labs otherwise unremarkable including a indeterminant troponin of 0.021. This is his typical range. On reevaluation, nitro did not affect patient's chest pain but morphine did. Patient will be admitted for cardiac observation. He was in agreement this plan. Cardiology consulted. I spoke with the admitting provider, Dr. Gee who accepted the admission. Undiagnosed new problem with uncertain prognosis? @ -No Drug Therapy requiring intensive monitoring for toxicity (Heparin, Nitro, Insulin, Cardizem)? @ -No Were any procedures done? @ -No Diagnosis/symptom? @ -Chest pain Acute, or Chronic, or Acute on Chronic? @ -Acute Uncomplicated (without systemic symptoms) or Complicated (systemic symptoms)? @ -Complicated Side effects of treatment? @ -No Exacerbation, Progression, or Severe Exacerbation? @ -No Poses a threat to life or bodily function? How? (Chest pain, [place], [place], pneumonia, PE, COPD, DKA, ARF, appy, cholecystitis, CVA, Diverticulitis, Homicidal, Suicidal, threat to staff... and all critical care pts) @ -Potentially, yes - Lab Data Result diagrams: 04/25/25 02:06 04/25/25 02:06 Lab Results 04/25/25 04/25/25 04/25/25 Range/Units 02:06 02:06 02:06 WBC 5.58 (4.50-10.00) 10*3/uL RBC 4.73 (4.40-5.60) 10*6/uL Hgb 13.5 (13.0-17.0) g/dL Hct 40.4 (39.6-50.0) % MCV 85.4 (80.0-97.0) fL MCH 28.5 (27.0-32.0) pg MCHC 33.4 (32.0-37.0) g/dL Plt Count 113 L (140-440) 10*3/uL MPV 12.1 (9.5-12.2) fL Immature Gran % (Auto) 0.4 % Neutrophils % 62.9 % Lymphocytes % 22.4 % Monocytes % 12.4 % Eosinophils % 1.4 % Basophils % 0.5 % Immature Gran # 0.02 (0.00-0.04) 10*3/uL Neutrophils # 3.51 (1.80-7.70) 10*3/uL Lymphocytes # 1.25 (0.90-5.00) 10*3/uL Monocytes # 0.69 (0.20-1.00) 10*3/uL Eosinophils # 0.08 (0.04-0.35) 10*3/uL Basophils # 0.03 (0.00-0.10) 10*3/uL PT 10.6 (10.0-12.5) sec INR 1.0 (<1.2) APTT 23.9 (22.0-30.0) sec Sodium 135 L (137-145) mmol/L Potassium 3.8 (3.5-5.1) mmol/L Chloride 102 (98-107) mmol/L Carbon Dioxide 24 (22-30) mmol/L Anion Gap 9 mmol/L BUN 21 H (9-20) mg/dL Creatinine 0.83 (0.66-1.25) mg/dL Est GFR (CKD-EPI)AfAm >90 (>60 ml/min/1.73 sqM) Est GFR (CKD-EPI)NonAf >90 (>60 ml/min/1.73 sqM) Glucose 105 H (74-99) mg/dL Calcium 9.3 (8.4-10.2) mg/dL Magnesium 1.9 (1.6-2.3) mg/dL Total Bilirubin 0.6 (0.2-1.3) mg/dL AST 30 (17-59) U/L ALT 21 (4-49) U/L Alkaline Phosphatase 118 (38-126) U/L Troponin I (0.000-0.034) ng/mL NT-Pro-B Natriuret Pep 1430 pg/mL Total Protein 6.8 (6.3-8.2) g/dL Albumin 3.9 (3.5-5.0) g/dL 04/25/25 Range/Units 02:06 WBC (4.50-10.00) 10*3/uL RBC (4.40-5.60) 10*6/uL Hgb (13.0-17.0) g/dL Hct (39.6-50.0) % MCV (80.0-97.0) fL MCH (27.0-32.0) pg MCHC (32.0-37.0) g/dL Plt Count (140-440) 10*3/uL MPV (9.5-12.2) fL Immature Gran % (Auto) % Neutrophils % % Lymphocytes % % Monocytes % % Eosinophils % % Basophils % % Immature Gran # (0.00-0.04) 10*3/uL Neutrophils # (1.80-7.70) 10*3/uL Lymphocytes # (0.90-5.00) 10*3/uL Monocytes # (0.20-1.00) 10*3/uL Eosinophils # (0.04-0.35) 10*3/uL Basophils # (0.00-0.10) 10*3/uL PT (10.0-12.5) sec INR (<1.2) APTT (22.0-30.0) sec Sodium (137-145) mmol/L Potassium (3.5-5.1) mmol/L Chloride (98-107) mmol/L Carbon Dioxide (22-30) mmol/L Anion Gap mmol/L BUN (9-20) mg/dL Creatinine (0.66-1.25) mg/dL Est GFR (CKD-EPI)AfAm (>60 ml/min/1.73 sqM) Est GFR (CKD-EPI)NonAf (>60 ml/min/1.73 sqM) Glucose (74-99) mg/dL Calcium (8.4-10.2) mg/dL Magnesium (1.6-2.3) mg/dL Total Bilirubin (0.2-1.3) mg/dL AST (17-59) U/L ALT (4-49) U/L Alkaline Phosphatase (38-126) U/L Troponin I 0.021 (0.000-0.034) ng/mL NT-Pro-B Natriuret Pep pg/mL Total Protein (6.3-8.2) g/dL Albumin (3.5-5.0) g/dL - EKG Data -: EKG Interpreted by Me EKG Comments: 12-lead Electrocardiogram Interpretation Note EKG was reviewed and interpreted by myself. 12-lead ECG performed at 0129 is interpreted by me as revealing normal sinus rhythm at a rate of 68 beats per minute. [place] is normal. MO interval is 137 ms, QRS duration is 115 ms, QTc is of 493 ms.. T wave inversions in lead V2 and V3 which appear chronic as well as in aVL. Some deep Q waves in inferior leads II, 3, aVF. Similar to prior EKGs.. R wave progression across the precordium was delayed. By my interpretation this EKG is non-diagnostic for acute ischemia. Disposition Clinical Impression: Chest pain Disposition: ADMITTED IP TO THIS HOSP Condition: Stable Time of Disposition: 03:30
[2025-04-25] MEDS: MORPHINE SULFATE 4 MG/ML SYRINGE IVP STA (04:23)
--- NOTE | 2025-04-25 04:38 | XR ---
EXAM: XR Chest, 2 Views CLINICAL HISTORY: left arm numbness. Pt states that this started yesterday. Pt states that he is getting left eye blindness. Pt states that he is having MICKIE. Pt states that he has CP as well that started earlier in the day. Pt states that he has been getting dizzy off and on for the past few weeks. TECHNIQUE: Frontal and lateral views of the chest. COMPARISON: 03/15/2025 FINDINGS: Lungs: Small amount of airspace opacities in both lungs, more on the right with lower lung zone predominance, slightly decreased. Pleural space: Small to moderate right pleural effusion, similar. Mediastinum: Unremarkable. Normal mediastinal contour. Bones/joints: Unchanged. Sternal wires are again noted. IMPRESSION: 1. Small amount of airspace opacities in both lungs, more on the right with lower lung zone predominance, slightly decreased. 2. Small to moderate right pleural effusion, similar.
[2025-04-25] MEDS: MORPHINE SULFATE 4 MG/ML SYRINGE IV PRN (09:34)
[2025-04-25] MEDS: HEPARIN SODIUM,PORCINE 5,000 UNIT/ML 1 ML VIAL SQ SCH (09:36)
[2025-04-25] MEDS: FUROSEMIDE 20 MG TAB PO SCH (13:10)
[2025-04-25] MEDS: carvediloL 6.25 MG TAB PO SCH (13:10)
[2025-04-25] MEDS: ISOSORBIDE MONONITRATE ER 30 MG TAB.ER.24H PO SCH (13:10)
[2025-04-25] MEDS: SODIUM BICARBONATE TAB 650 MG TAB PO SCH (13:14)
[2025-04-25] MEDS: APIXABAN 2.5 MG TABLET PO SCH (13:16)
--- NOTE | 2025-04-25 17:53 | DS ---
DISCHARGE SUMMARY CHIEF COMPLAINT: Chest pain. HISTORY OF PRESENT ILLNESS AND PHYSICAL EXAM: Details of this man's history and physical can be found in the initial workup. LABORATORY STUDIES: While he is in the hospital he had laboratory studies, details of which can be found in the laboratory section of his chart. COURSE IN THE HOSPITAL: After admission, he was placed on bedrest and he had serial EKGs and enzymes. They were normal. He was seen by Cardiology. He is felt to be stable without any further indications for inpatient treatment and he will go home on his usual diet, activity and medications and follow up in the office. FINAL DIAGNOSES: 1. Unstable angina pectoris. 2. Coronary artery disease. 3. Atherosclerotic cardiomyopathy. 4. Chronic obstructive pulmonary disease. 5. Osteoarthritis. OPERATIONS: None. CONSULTATIONS: Cardiology. REYNALDO / CALLI: [id number] /
[2025-04-25 18:21] VITALS: BP 102/76; PULSE 62; RESP 18
[2025-04-25] MEDS ORDERED: QUEtiapine 200 MG TAB PO SCH (21:00)
[2025-04-25] MEDS ORDERED: APIXABAN 5 MG TAB PO SCH (21:00)
[2025-04-25] MEDS ORDERED: RANOLAZINE 500 MG TAB.ER.12H PO SCH (21:00)
[2025-04-25] MEDS ORDERED: SACUBITRIL/VALSARTAN 24 MG-26 MG TABLET PO SCH (21:00)
--- NOTE | 2025-04-26 02:27 | HP ---
HISTORY AND PHYSICAL CHIEF COMPLAINT: Chest pain. HISTORY OF PRESENT ILLNESS: Another admission for this 70-year-old gentleman with advanced coronary artery disease and atherosclerotic cardiomyopathy and congestive heart failure. He came back again with chest pain. Cardiac enzymes were normal. REVIEW OF SYSTEMS: He has had no hemoptysis, fever, chills, etc. PAST MEDICAL HISTORY, FAMILY HISTORY, AND PERSONAL AND SOCIAL HISTORIES: All unchanged. He does continue to smoke. MEDICATION: It is never clear as to whether or not he is taking all of the medicines that are prescribed. PHYSICAL EXAMINATION: HEAD, EARS, EYES, NOSE, MOUTH, AND THROAT: Normal. CHEST: Demonstrates occasional rales with a fairly good breath sounds. CARDIAC: Demonstrates sinus rhythm. ABDOMEN: Soft, nontender. EXTREMITIES: Normal. IMPRESSION: 1. Unstable angina pectoris. 2. Coronary artery disease. 3. Atherosclerotic cardiomyopathy. 4. Chronic obstructive pulmonary disease. 5. History of right pleural effusion. 6. Osteoarthritis, lumbosacral spine. PLAN: 1. Bed rest. 2. IV fluids. 3. Serial EKGs and enzymes. 4. Consult Cardiology. MMODL / IJN: [id number] /
[2025-04-26] MEDS ORDERED: ISOSORBIDE MONONITRATE ER 15 MG TAB PO SCH (09:00)
[2025-04-26] MEDS ORDERED: carvediloL 3.125 MG TAB PO SCH (09:00)
[2025-04-26] MEDS ORDERED: FUROSEMIDE 40 MG TAB PO SCH (09:00)
[2025-04-26] MEDS ORDERED: CLOPIDOGREL 75 MG TAB PO SCH (09:00)
[2025-04-26] MEDS ORDERED: EZETIMIBE 10 MG TAB PO SCH (09:00)
[2025-04-26] MEDS ORDERED: FOLIC ACID 1 MG TAB PO SCH (09:00)
[2025-04-26] MEDS ORDERED: ATORVASTATIN 40 MG TAB PO SCH (09:00)
[2025-04-26] MEDS ORDERED: DAPAGLIFLOZIN PROPANEDIOL 10 MG TABLET PO SCH (09:00)
[2025-04-26] MEDS ORDERED: PANTOPRAZOLE 40 MG TABLET PO SCH (09:00)
[2025-04-26] MEDS ORDERED: SPIRONOLACTONE 25 MG TAB PO SCH (09:00)
== END 2025-04-25 18:20 | disposition home or self-care (01) ==
LOC: EC 01:03 → 6NMEDSUR 03:36
PROVIDERS: ADMIT Family Medicine; ATTEND Family Medicine
DX: I25.110 Atherosclerotic heart disease of native coronary artery with unstable angina pectoris (principal); I42.9 Cardiomyopathy, unspecified; I50.9 Heart failure, unspecified; I11.0 Hypertensive heart disease with heart failure; J44.9 Chronic obstructive pulmonary disease, unspecified; I25.2 Old myocardial infarction; H54.62 Unqualified visual loss, left eye, normal vision right eye; M79.602 Pain in left arm; M47.9 Spondylosis, unspecified; M54.2 Cervicalgia; G89.29 Other chronic pain; R51.9 Headache, unspecified; F17.200 Nicotine dependence, unspecified, uncomplicated; F43.10 Post-traumatic stress disorder, unspecified; F32.A Depression, unspecified; F41.9 Anxiety disorder, unspecified; Z79.01 Long term (current) use of anticoagulants; Z79.51 Long term (current) use of inhaled steroids; Z79.84 Long term (current) use of oral hypoglycemic drugs; Z79.02 Long term (current) use of antithrombotics/antiplatelets; Z79.899 Other long term (current) drug therapy; Z91.040 Latex allergy status; Z95.5 Presence of coronary angioplasty implant and graft; Z95.1 Presence of aortocoronary bypass graft
CPT/HCPCS: 96361 ×2; 96374; 96376; 99285; 36415; 93005; 83880; 80053; 83735; 84484; 85025; 85610; 85730; 71046; G0378; J2270

== ENCOUNTER 2025-04-27 23:10 | Observation (INO) | payer MEDICARE ==
--- NOTE | 2025-04-28 00:04 | ED ---
Chest Pain HPI - General Chief Complaint: Chest Pain Stated Complaint: MICKIE Time Seen by Provider: 04/27/25 23:17 Source: patient, RN notes reviewed, old records reviewed Mode of arrival: ambulatory Limitations: no limitations - History of Present Illness Initial Comments: This is a 70-year-old male presenting with chest pain few days of weakness a few days with weakness and shortness of breath and chest pain today. Persistent chest pain throughout the day burning chest pain pain in his back heaviness in his chest symptoms have come and gone patient has felt increasingly weak. Today patient has for 2 to 3 hours of severe heaviness on his chest MD Complaint: chest pain -: hour(s) Onset: during rest Pain Location: substernal, left chest Pain Radiation: none Severity: moderate Severity scale (1-10): 6 Quality: heaviness Consistency: constant Improves With: nothing Worsens With: nothing Anginal Symptoms: sense of impending doom Other Symptoms: palpitations Treatments Prior to Arrival: none - Related Data Home Medications Medication Instructions Recorded Confirmed Apixaban [Eliquis] 2.5 mg PO BID 12/07/24 04/28/25 Atorvastatin [Lipitor] 40 mg PO DAILY 03/02/25 04/28/25 Budesonide/Formoterol Fumarate 2 puff INHALATION RT-BID 03/02/25 04/28/25 [Symbicort 160-4.5 Mcg Inhaler] Dapagliflozin Propanediol [Farxiga] 10 mg PO DAILY 03/02/25 04/28/25 Folic Acid 1 mg PO DAILY 03/02/25 04/28/25 Furosemide [Lasix] 40 mg PO DAILY 03/02/25 04/28/25 Sacubitril/Valsartan [Entresto 24 1 tab PO BID 03/02/25 04/28/25 mg-26 mg Tablet] Sodium Bicarbonate Tab 650 mg PO TID 03/02/25 04/28/25 Spironolactone [Aldactone] 25 mg PO DAILY 03/02/25 04/28/25 carvediloL [Coreg] 3.125 mg PO DAILY 03/02/25 04/28/25 hydrOXYzine HCL [Atarax] 50 mg PO HS PRN 03/02/25 04/28/25 Clopidogrel [Plavix] 75 mg PO DAILY 03/29/25 04/28/25 Ezetimibe [Zetia] 10 mg PO DAILY 03/29/25 04/28/25 Isosorbide Mononitrate ER [Imdur] 15 mg PO DAILY 04/25/25 04/28/25 Omeprazole 20 mg PO DAILY 04/25/25 04/28/25 QUEtiapine FUMARATE [SEROquel] 200 mg PO HS 04/25/25 04/28/25 Previous Rx's Medication Instructions Recorded Ranolazine [Ranexa] 500 mg PO Q12HR #20 tab 04/01/25 Allergies Allergy/AdvReac Type Severity Reaction Status Date / Time latex Allergy Swelling Verified 04/28/25 21:55 atorvastatin [From Lipitor] AdvReac JOINT PAIN Verified 04/28/25 21:55 Review of Systems ROS Statement: Those systems with pertinent positive or pertinent negative responses have been documented in the HPI. ROS Other: All systems not noted in ROS Statement are negative. EKG Findings - EKG Comments: EKG Findings:: EKG is sinus 72 NE 120 QRS 114 QTc 486 - EKG Results: EKG: interpreted by RYANNE Past Medical History Past Medical History: Coronary Artery Disease (CAD), Chest Pain / Angina, Heart Failure, COPD, GERD/Reflux, Hyperlipidemia, Hypertension, Myocardial Infarction (MA), Osteoarthritis (OA), Sleep Apnea/CPAP/BIPAP Additional Past Medical History / Comment(s): Chronic back pain, left leg weakness. MA x3. no Cpap at home. Last Myocardial Infarction Date:: 11/11/22 History of Any Multi-Drug Resistant Organisms: None Reported Past Surgical History: Back Surgery, Cholecystectomy, Coronary Bypass/CABG, Heart Catheterization With Stent Additional Past Surgical History / Comment(s): Back surgery X2 with cage, left tennis elbow surgery, heart stents X7, colonoscopy. Open heart surgeryx2. emergency CABG 1969's. thrombectomy. 2023 Bypass Past Anesthesia/Blood Transfusion Reactions: No Reported Reaction Additional Past Anesthesia/Blood Transfusion Reaction / Comment(s): Pt received blood during CABG without reaction. Pt states,"I can't have anymore surgeries becuase I stop breathing." "That's what they told my fiance'" Date of Last Stent Placement:: Oct 2022 Past Psychological History: Anxiety, Depression, PTSD Smoking Status: Current every day smoker - Past Family History Father Family Medical History: Coronary Artery Disease (CAD), Deep Vein Thrombosis (DV T), GERD/Reflux, Hyperlipidemia, Myocardial Infarction (MA) Additional Family Medical History / Comment(s): Father of a MA in his 80's. Mother Family Medical History: Coronary Artery Disease (CAD), Myocardial Infarction (MA) Additional Family Medical History / Comment(s): Mother of a MA. Brother(s) Family Medical History: Myocardial Infarction (MA) Additional Family Medical History / Comment(s): . Sister(s) Family Medical History: Cancer, Diabetes Mellitus Additional Family Medical History / Comment(s): Lung cancer. Other sister had Diabetes. General Exam Limitations: no limitations General appearance: alert, in no apparent distress Head exam: Present: atraumatic, normocephalic, normal inspection Eye exam: Present: normal appearance, PERRL, EOMI. Absent: scleral icterus, conjunctival injection, periorbital swelling ENT exam: Present: normal exam, mucous membranes moist Neck exam: Present: normal inspection. Absent: tenderness, meningismus, lymphadenopathy Respiratory exam: Present: normal lung sounds bilaterally. Absent: respiratory distress, wheezes, rales, rhonchi, stridor Cardiovascular Exam: Present: regular rate, normal rhythm, normal heart sounds. Absent: systolic murmur, diastolic murmur, rubs, gallop, clicks GI/Abdominal exam: Present: soft, normal bowel sounds. Absent: distended, tenderness, guarding, rebound, rigid Extremities exam: Present: normal inspection, full ROM, normal capillary refill. Absent: tenderness, pedal edema, joint swelling, calf tenderness Back exam: Present: normal inspection Neurological exam: Present: alert, oriented X3, CN II-XII intact Psychiatric exam: Present: normal affect, normal mood Skin exam: Present: warm, dry, intact, normal color. Absent: rash Course Vital Signs 04/27/25 04/27/25 04/27/25 23:12 23:30 23:35 Temperature 97.9 F 97.8 F Pulse Rate 77 74 Pulse Rate [ 72 Right Supine Pulse Oximetery ] Respiratory 18 20 Rate Blood Pressure 149/77 132/81 O2 Sat by Pulse 98 99 Oximetry 04/28/25 04/28/25 04/28/25 01:55 06:18 07:12 Temperature 98.2 F Pulse Rate 72 73 84 Pulse Rate [ Right Supine Pulse Oximetery ] Respiratory 19 18 16 Rate Blood Pressure 137/83 110/65 136/79 O2 Sat by Pulse 99 98 100 Oximetry 04/28/25 04/28/25 09:36 11:04 Temperature Pulse Rate 87 79 Pulse Rate [ Right Supine Pulse Oximetery ] Respiratory 19 16 Rate Blood Pressure 145/81 140/78 O2 Sat by Pulse 98 96 Oximetry - Reevaluation(s) Reevaluation #1: 04/28/25 00:35 Medical records reviewed Reevaluation #2: 04/28/25 00:35 Patient symptoms unchanged Reevaluation #3: 04/28/25 00:35 Patient informed of results questions answered Reevaluation #4: Was pt. sent in by a medical professional or institution ([facility] Zelaya, [facility], urgent care, hospital, or longterm...) When possible be specific @ -no Did you speak to anyone other than the patient for history (EMS, parent, family, police, friend...)? What history was obtained from this source @ -no Did you review nursing and triage notes (agree or disagree)? Why? @ -agree Are old charts reviewed (outside hosp., previous admission, EMS record, old EKG, old radiological studies, urgent care reports/EKG's, longterm records)? Report findings @ -yes Differential Diagnosis (chest pain, altered mental status, abdominal pain women, abdominal pain men, vaginal bleeding, weakness, fever, dyspnea, syncope, headache, dizziness, GI bleed, back pain, seizure, CVA, palpatations, mental health, musculoskeletal)? @ -prior EKG interpreted by me (3pts min.). @ -yes X-rays interpreted by me (1pt min.). @ -yes negative for acute disease CT interpreted by me (1pt min.). @ -no U/S interpreted by me (1pt. min.). @ -no What testing was considered but not performed or refused? (CT, X-rays, U/S, labs)? Why? @ -none What meds were considered but not given or refused? Why? @ -none Did you discuss the management of the patient with other professionals (professionals i.e. ROBERT Zelaya, [facility], lab, RT, psych nurse, social worker palliative care, strap maker, teacher, police or patrol park officer, pillowcase sewer)? Give summary @ -no Was smoking cessation discussed for >3mins.? @ -no Was critical care preformed (if so, how long)? @ -no Were there social determinants of health that impacted care today? How? (Homelessness, low income, unemployed, alcoholism, drug addiction, transportation, low edu. Level, literacy, decrease access to med. care, nursing home, rehab)? @ -none Was there de-escalation of care discussed even if they declined (Discuss DNR or withdrawal of care, Hospice)? DNR status @ -no What co-morbidities impacted this encounter? (DM, HTN, Smoking, COPD, CAD, Cancer, CVA, ARF, Chemo, Hep., AIDS, mental health diagnosis, sleep apnea, morbid obesity)? @ -none Was patient admitted / discharged? Hospital course, mention meds given and route, prescriptions, significant lab abnormalities, going to OR and other pertinent info. @ - 70 male to the ER history of unstable angina and chest pain. Patient will be admitted for weakness fatigue chest pain and shortness of breath Admitted Undiagnosed new problem with uncertain prognosis? @ -no Drug Therapy requiring intensive monitoring for toxicity (Heparin, Nitro, Insulin, Cardizem)? @ -no Were any procedures done? @ -no Diagnosis/symptom? @ -Chest pain weakness fatigue Acute, or Chronic, or Acute on Chronic? @ -Acute Uncomplicated (without systemic symptoms) or Complicated (systemic symptoms)? @ -Complicated Side effects of treatment? @ -no Exacerbation, Progression, or Severe Exacerbation? @ -exacerbation Poses a threat to life or bodily function? How? (Chest pain, USA, MA, pneumonia, PE, COPD, DKA, ARF, appy, cholecystitis, CVA, Diverticulitis, Homicidal, Suicidal, threat to staff... and all critical care pts) @ -yes chest pain Reevaluation #5: Differential Chest Pain: Stable Angina, Unstable Angina, STEMI, NSTEMI Aortic Dissection, Pneumothorax, Musculoskeletal, Esophageal Spasm GERD, Cholecystitis, Pancreatitis, Zoster, this is not meant to be an all-inclusive list. Chest Pain MDM - MDM 70 male to the ER history of unstable angina and chest pain. Patient will be admitted for weakness fatigue chest pain and shortness of breath Disposition Clinical Impression: Unstable angina pectoris, CAD (coronary artery disease) of bypass graft, Chest pain, Dyspnea Disposition: ADMITTED IP TO THIS HOSP Condition: Fair Time of Disposition: 00:45
--- NOTE | 2025-04-28 00:18 | XR ---
EXAMINATION TYPE: XR chest 1V portable DATE OF EXAM: 04/28/2025 12:11 AM COMPARISON: Chest radiographs from 04/25/2025 TECHNIQUE: XR chest 1V portable Portable AP radiograph of the chest. CLINICAL INDICATION:Male, 70 years old with history of chest pain; FINDINGS: Lungs/Pleura: No pneumothorax. The left lung is clear. Similar small right pleural effusion with righ t basilar patchy airspace opacities. Pulmonary vascularity: Unremarkable. Heart/mediastinum: Cardiomediastinal silhouette is enlarged and stable. Postsurgical changes of prev ious CABG. Musculoskeletal: No acute osseous pathology. Midline sternotomy wires are noted and stable. IMPRESSION: Overall similar cardiomegaly and small right pleural effusion with adjacent right lower lobe airspace opacities which may represent atelectasis versus pneumonia. [facility], , 04/28/2025 12:15 AM
[2025-04-28] MEDS: NITROGLYCERIN OINT 1 INCH/GM PACKET TOPICAL STA (00:21)
[2025-04-28] MEDS: diphenhydrAMINE 50 MG/ML 1 ML VIAL IVP STA (00:23)
[2025-04-28] MEDS: SODIUM CHLORIDE 0.9% 1,000 ML IV STA (00:24)
[2025-04-28] MEDS: HYDROmorphone 1 MG/ML 1 ML SYRINGE IVP STA (00:27)
[2025-04-28] MEDS ORDERED: NALOXONE 0.4 MG/ML 1 ML VIAL IV PRN (00:33)
[2025-04-28 00:35] LABS: Basophils # (A) 0.03 10*3/uL (0.00-0.10); Basophils % (A) 0.4 %; Eosinophils # (A) 0.08 10*3/uL (0.04-0.35); Eosinophils % (A) 1.2 %; HCT 44.7 % (39.6-50.0); HGB 14.9 g/dL (13.0-17.0); Lymphocytes # (A) 1.41 10*3/uL (0.90-5.00); Lymphocytes % (A) 20.6 %; MCH 28.2 pg (27.0-32.0); MCHC 33.3 g/dL (32.0-37.0); MCV 84.5 fL (80.0-97.0); Mean Platelet Volume 12.8 fL (9.5-12.2); Monocytes # (A) 0.84 10*3/uL (0.20-1.00); Monocytes % (A) 12.3 %; Neutrophils # (A) 4.46 10*3/uL (1.80-7.70); Neutrophils % (A) 65.2 %; Platelet Count 154 10*3/uL (140-440); RBC 5.29 10*6/uL (4.40-5.60); RDW 16.7 % (11.5-14.5); WBC 6.84 10*3/uL (4.50-10.00)
[2025-04-28 00:49] LABS: Partial Thromboplastin Time 24.9 sec (22.0-30.0); Prothrombin Time 10.8 sec (10.0-12.5)
[2025-04-28 01:00] LABS: ALT 32 U/L (4-49); AST 38 U/L (17-59); African American GFR (CKD) 84 (>60 ml/min/1.73 sqM); Albumin 4.1 g/dL (3.5-5.0); Alkaline Phosphatase 151 U/L (38-126); Anion Gap 10 mmol/L; Blood Urea Nitrogen 15 mg/dL (9-20); Calcium 9.5 mg/dL (8.4-10.2); Carbon Dioxide 22 mmol/L (22-30); Chloride 103 mmol/L (98-107); Glucose 96 mg/dL (74-99); Lipase 93 U/L (23-300); Non-African American GFR(CKD) 73 (>60 ml/min/1.73 sqM); Potassium 3.9 mmol/L (3.5-5.1); Sodium 135 mmol/L (137-145); Total Protein 7.3 g/dL (6.3-8.2)
[2025-04-28 01:08] LABS: NT-Pro-B-Type Natriuretic Pept 1340 pg/mL
[2025-04-28] MEDS: SODIUM CHLORIDE 0.9% 1,000 ML IV SCH (01:59)
[2025-04-28] MEDS: HYDROmorphone 1 MG/ML 1 ML SYRINGE IVP PRN (04:02)
[2025-04-28 11:04] VITALS: RESP 16
[2025-04-28] MEDS: ONDANSETRON 4 MG/2 ML VIAL IVP PRN (11:14)
[2025-04-28 13:50] VITALS: BP 134/84; PULSE 86; TEMP 99.1
[2025-04-28] MEDS: SODIUM BICARBONATE TAB 650 MG TAB PO SCH (15:50)
--- NOTE | 2025-04-28 20:17 | CONS ---
CONSULTATION HISTORY OF PRESENT ILLNESS: Israel is a 70-year-old gentleman with history of coronary artery disease, ischemic cardiomyopathy, congestive heart failure, atrial fibrillation, hypertension, dyslipidemia, who presented to hospital with pain primarily involving the left neck and arm and also had some sharp atypical chest pain for which Cardiology had been consulted. At the time of my evaluation, this morning, his predominant symptom is left arm pain. EKG shows sinus rhythm, PACs with evidence of prior inferior wall myocardial infarction and nonspecific ST-T wave changes. Labs show a hemoglobin of 14.9 and potassium is 3.9. Troponins are negative. The patient's left arm pain seems musculoskeletal, has atypical chest pain that does not require any other evaluation at this time. PAST MEDICAL HISTORY: Significant for cardiomyopathy and chronic systolic heart failure and atrial fibrillation. The patient has history of coronary artery disease, status post prior angioplasty. MEDICATIONS: Include; 1. Coreg. 2. Aldactone. 3. Entresto. 4. Ranexa. 5. Omeprazole. 6. Imdur. 7. Lasix. 8. Zetia. 9. Folic acid. 10.Farxiga. 11.Plavix. 12.Symbicort. 13.Lipitor. 14.Eliquis. ALLERGIES: The patient is allergic to latex and Lipitor. FAMILY HISTORY: Negative for premature coronary artery disease. SOCIAL HISTORY: Negative for smoking, EtOH abuse, or drug abuse. REVIEW OF SYSTEMS: A 14 out of 14 review of systems has been performed. Pertinents are in the form of left arm pain. PHYSICAL EXAMINATION: GENERAL: On exam, comfortable at rest. VITAL SIGNS: Stable. There is jugular venous distention. Carotid upstroke is normal. There is no bruit. CHEST: Reveals good air entry bilaterally. HEART: Reveals first and second heart sounds. Systolic murmur at the apex. ABDOMEN: Soft. EXTREMITIES: Examination of the extremities did not reveal any edema. Peripheral pulses are felt. LABORATORY DATA: Show hemoglobin of 14.9 and platelet count is 154. Potassium is 3.9, creatinine is 1, and three sets of troponins are negative. ASSESSMENT: 1. Atypical chest pain, myocardial infarction ruled out. 2. Paroxysmal atrial fibrillation. 3. Ischemic cardiomyopathy with severe LV systolic dysfunction. 4. Chronic systolic heart failure. PLAN: No other cardiac workup at this time. Continue current medications. MMODL / IJN: [id number] /
[2025-04-28] MEDS ORDERED: APIXABAN 2.5 MG TABLET PO SCH (21:00)
[2025-04-28] MEDS ORDERED: SACUBITRIL/VALSARTAN 24 MG-26 MG TABLET PO SCH (21:00)
[2025-04-28] MEDS ORDERED: QUEtiapine 200 MG TAB PO SCH (21:00)
[2025-04-28] MEDS ORDERED: RANOLAZINE 500 MG TAB.ER.12H PO SCH (21:00)
--- NOTE | 2025-04-29 00:32 | HP ---
HISTORY AND PHYSICAL CHIEF COMPLAINT: Chest pain. HISTORY OF PRESENT ILLNESS: This is another of many admissions for this 70-year-old male. He has advanced coronary artery disease. He has already had 2 coronary artery bypass grafts and numerous stenting. He has chronic congestive heart failure, cardiomyopathy, history of right pleural effusion, COPD and low back pain. He presented to the emergency room once again with chest pain and was admitted. He has been seen on numerous different occasions by Cardiology, who feel that there is nothing more that they can offer him. REVIEW OF SYSTEMS: He has had no significant diaphoresis, shortness of breath, cough, nausea, vomiting, palpitations, syncope, etc. Past medical history, family history, personal and social histories are all otherwise unremarkable and noncontributory and unchanged. PHYSICAL EXAMINATION: VITAL SIGNS: Normal. HEAD, EARS, EYES, NOSE, MOUTH AND THROAT: Normal. CHEST: Demonstrates decreased breast breath sounds of the right base. CARDIAC EXAM: Demonstrates what sounds like sinus rhythm. There is an S4. ABDOMEN: Soft, nontender. EXTREMITIES: Normal. NEUROLOGIC: Neurologically, he is intact. DIAGNOSES: 1. Unstable angina pectoris. 2. Advanced coronary artery disease. 3. Atherosclerotic cardiomyopathy. 4. Chronic congestive heart failure. 5. Right pleural effusion. 6. Chronic obstructive pulmonary disease. 7. Osteoarthritis of spine. 8. Depression. PLAN: 1. Bed rest. 2. IV fluids. 3. Cardiology Consult. MMODL / IJN: [id number] /
[2025-04-29] MEDS ORDERED: carvediloL 3.125 MG TAB PO SCH (07:30)
[2025-04-29] MEDS ORDERED: FOLIC ACID 1 MG TAB PO SCH (09:00)
[2025-04-29] MEDS ORDERED: CLOPIDOGREL 75 MG TAB PO SCH (09:00)
[2025-04-29] MEDS ORDERED: FUROSEMIDE 40 MG TAB PO SCH (09:00)
[2025-04-29] MEDS ORDERED: SPIRONOLACTONE 25 MG TAB PO SCH (09:00)
[2025-04-29] MEDS ORDERED: DAPAGLIFLOZIN PROPANEDIOL 10 MG TABLET PO SCH (09:00)
[2025-04-29] MEDS ORDERED: PANTOPRAZOLE 40 MG TABLET PO SCH (09:00)
[2025-04-29] MEDS ORDERED: ATORVASTATIN 40 MG TAB PO SCH (09:00)
[2025-04-29] MEDS ORDERED: EZETIMIBE 10 MG TAB PO SCH (09:00)
[2025-04-29] MEDS ORDERED: ISOSORBIDE MONONITRATE ER 15 MG TAB PO SCH (09:00)
--- NOTE | 2025-04-29 19:24 | DS ---
DISCHARGE SUMMARY CHIEF COMPLAINT: Chest pain. HISTORY OF PRESENT ILLNESS AND PHYSICAL EXAMINATION: Details of this man's history and physical can be found in the initial workup. LABORATORY STUDIES: While he was in the hospital, he had laboratory studies, which can be found in the laboratory section of his chart. COURSE IN THE HOSPITAL: After admission, he was placed on bedrest, started intravenous fluids and nasal O2. He had serial EKGs and troponins, which revealed elevated troponin. He was to be seen by Cardiology. He then left the hospital against medical advice, which he has done many times before. FINAL DIAGNOSES: 1. Unstable angina pectoris. 2. Coronary artery disease. 3. Chronic obstructive pulmonary disease. 4. Depression. 5. LS spine arthritis. OPERATIONS: None. CONSULTATIONS: Cardiology. REYNALDO / CALLI: [id number] /
== END 2025-04-28 17:13 | disposition left against medical advice (07) ==
LOC: EC 23:10 → 6NMEDSUR 04-28 00:33 → 1SOBS 04-28 11:05
PROVIDERS: ADMIT Family Medicine; ATTEND Family Medicine
DX: I25.700 Atherosclerosis of coronary artery bypass graft(s), unspecified, with unstable angina pectoris (principal); I11.0 Hypertensive heart disease with heart failure; I50.22 Chronic systolic (congestive) heart failure; I25.5 Ischemic cardiomyopathy; I48.0 Paroxysmal atrial fibrillation; E78.5 Hyperlipidemia, unspecified; J44.9 Chronic obstructive pulmonary disease, unspecified; M47.816 Spondylosis without myelopathy or radiculopathy, lumbar region; F32.A Depression, unspecified; R79.89 Other specified abnormal findings of blood chemistry; F17.200 Nicotine dependence, unspecified, uncomplicated; Z79.01 Long term (current) use of anticoagulants; Z79.51 Long term (current) use of inhaled steroids; Z79.84 Long term (current) use of oral hypoglycemic drugs; Z79.02 Long term (current) use of antithrombotics/antiplatelets; Z79.899 Other long term (current) drug therapy; Z88.8 Allergy status to other drugs, medicaments and biological substances; Z91.040 Latex allergy status; Z95.5 Presence of coronary angioplasty implant and graft; Z95.1 Presence of aortocoronary bypass graft; Z53.29 Procedure and treatment not carried out because of patient's decision for other reasons
CPT/HCPCS: 96376 ×2; 96361; 96374; 96375; 99285; 36415; 93005; 85379; 83880; 80053; 83690; 83735; 84484; 85025; 85610; 85730; 71045; G0378 ×2; J1200; J2405; J1171

== ENCOUNTER 2025-04-28 21:48 | Emergency (ER) | payer MEDICARE ==
--- NOTE | 2025-04-28 21:58 | ED ---
Chest Pain HPI - General Source: patient, family, EMS, RN notes reviewed, old records reviewed Mode of arrival: EMS Limitations: no limitations <Maryana Parish - Last Filed: 04/28/25 21:57> <Ava Field - Last Filed: 04/29/25 07:26> - General Chief Complaint: Chest Pain Stated Complaint: Chest pain Time Seen by Provider: 04/28/25 21:57 - History of Present Illness Initial Comments: Quick note: 70-year-old male presented the ER for evaluation of chest pain, shortness of breath and dizziness. Patient has a known cardiac history. Patient was seen here earlier today and left AMA. (Maryana Parish) 70-year-old male presents emergency department reporting chest pain. Patient is well-known to the emergency department for this complaint. He was admitted to the hospital earlier today and left AGAINST MEDICAL ADVICE. Patient presents again with the same symptoms. He did have cardiac evaluation this morning and it was determined that the patient's symptoms were noncardiac in nature. Patient reports that this evening he was short of breath and his sister called EMS. Patient does have history of heart failure with pleural effusions. He has had thoracenteses before. He denies any fevers, chills or cough. No numbness, tingling or weakness in extremities. No ripping or tearing sensation to his back. No other alleviating, precipitating or modifying factors (Ava Field) - Related Data Home Medications Medication Instructions Recorded Confirmed Apixaban [Eliquis] 2.5 mg PO BID 12/07/24 04/28/25 Atorvastatin [Lipitor] 40 mg PO DAILY 03/02/25 04/28/25 Budesonide/Formoterol Fumarate 2 puff INHALATION RT-BID 03/02/25 04/28/25 [Symbicort 160-4.5 Mcg Inhaler] Dapagliflozin Propanediol [Farxiga] 10 mg PO DAILY 03/02/25 04/28/25 Folic Acid 1 mg PO DAILY 03/02/25 04/28/25 Furosemide [Lasix] 40 mg PO DAILY 03/02/25 04/28/25 Sacubitril/Valsartan [Entresto 24 1 tab PO BID 03/02/25 04/28/25 mg-26 mg Tablet] Sodium Bicarbonate Tab 650 mg PO TID 03/02/25 04/28/25 Spironolactone [Aldactone] 25 mg PO DAILY 03/02/25 04/28/25 carvediloL [Coreg] 3.125 mg PO DAILY 03/02/25 04/28/25 hydrOXYzine HCL [Atarax] 50 mg PO HS PRN 03/02/25 04/28/25 Clopidogrel [Plavix] 75 mg PO DAILY 03/29/25 04/28/25 Ezetimibe [Zetia] 10 mg PO DAILY 03/29/25 04/28/25 Isosorbide Mononitrate ER [Imdur] 15 mg PO DAILY 04/25/25 04/28/25 Omeprazole 20 mg PO DAILY 04/25/25 04/28/25 QUEtiapine FUMARATE [SEROquel] 200 mg PO HS 04/25/25 04/28/25 Previous Rx's Medication Instructions Recorded Ranolazine [Ranexa] 500 mg PO Q12HR #20 tab 04/01/25 Allergies Allergy/AdvReac Type Severity Reaction Status Date / Time latex Allergy Swelling Verified 04/28/25 21:55 atorvastatin [From Lipitor] AdvReac JOINT PAIN Verified 04/28/25 21:55 Review of Systems ROS Other: All systems not noted in ROS Statement are negative. <Maryana Parish - Last Filed: 04/28/25 21:57> ROS Other: All systems not noted in ROS Statement are negative. <Ava Field - Last Filed: 04/29/25 07:26> ROS Statement: Those systems with pertinent positive or pertinent negative responses have been documented in the HPI. Past Medical History Past Medical History: Coronary Artery Disease (CAD), Chest Pain / Angina, Heart Failure, COPD, GERD/Reflux, Hyperlipidemia, Hypertension, Myocardial Infarction (SD), Osteoarthritis (OA), Sleep Apnea/CPAP/BIPAP Additional Past Medical History / Comment(s): Chronic back pain, left leg weakness. SD x3. no Cpap at home. Last Myocardial Infarction Date:: 11/11/22 History of Any Multi-Drug Resistant Organisms: None Reported Past Surgical History: Back Surgery, Cholecystectomy, Coronary Bypass/CABG, Heart Catheterization With Stent Additional Past Surgical History / Comment(s): Back surgery X2 with cage, left tennis elbow surgery, heart stents X7, colonoscopy. Open heart surgeryx2. emergency CABG 1969's. thrombectomy. 2023 Bypass Past Anesthesia/Blood Transfusion Reactions: No Reported Reaction Additional Past Anesthesia/Blood Transfusion Reaction / Comment(s): Pt received blood during CABG without reaction. Pt states,"I can't have anymore surgeries becuase I stop breathing." "That's what they told my fiance'" Date of Last Stent Placement:: Oct 2022 Past Psychological History: Anxiety, Depression, PTSD Smoking Status: Current every day smoker - Past Family History Father Family Medical History: Coronary Artery Disease (CAD), Deep Vein Thrombosis (DVT), GERD/Reflux, Hyperlipidemia, Myocardial Infarction (SD) Additional Family Medical History / Comment(s): Father of a SD in his 80's. Mother Family Medical History: Coronary Artery Disease (CAD), Myocardial Infarction (SD) Additional Family Medical History / Comment(s): Mother of a SD. Brother(s) Family Medical History: Myocardial Infarction (SD) Additional Family Medical History / Comment(s): . Sister(s) Family Medical History: Cancer, Diabetes Mellitus Additional Family Medical History / Comment(s): Lung cancer. Other sister had Diabetes. <Maryana Parish - Last Filed: 04/28/25 21:57> General Exam <Maryana Parish - Last Filed: 04/28/25 21:57> General appearance: alert, in no apparent distress Head exam: Present: atraumatic, normocephalic, normal inspection Eye exam: Present: normal appearance, PERRL, EOMI. Absent: scleral icterus, conjunctival injection, periorbital swelling ENT exam: Present: normal exam, mucous membranes moist Neck exam: Present: normal inspection. Absent: tenderness, meningismus, lymphadenopathy Respiratory exam: Present: normal lung sounds bilaterally. Absent: respiratory distress, wheezes, rales, rhonchi, stridor Cardiovascular Exam: Present: regular rate, normal rhythm, normal heart sounds. Absent: systolic murmur, diastolic murmur, rubs, gallop, clicks GI/Abdominal exam: Present: soft, normal bowel sounds. Absent: distended, tenderness, guarding, rebound, rigid Extremities exam: Present: normal inspection, full ROM, normal capillary refill. Absent: tenderness, pedal edema, joint swelling, calf tenderness Back exam: Present: normal inspection Neurological exam: Present: alert, oriented X3, CN II-XII intact Psychiatric exam: Present: normal affect, normal mood Skin exam: Present: warm, dry, intact, normal color. Absent: rash <Ava Field - Last Filed: 04/29/25 07:26> - General Exam Comments Initial Comments: Visual Physical Exam Vital signs reviewed General: Well-appearing, nontoxic, no acute distress. Head: Normocephalic, atraumatic Eyes: PERRLA, EOMI ENT: Airway patent Chest: Nonlabored breathing Skin: No visual rash, normal skin tone Neuro: Alert and oriented 3 Musculoskeletal: No gross abnormalities (Maryana Parish) Course Vital Signs 04/28/25 04/28/25 21:52 23:42 Temperature 97.7 F 98.0 F Pulse Rate 79 72 Respiratory 18 16 Rate Blood Pressure 152/81 143/86 O2 Sat by Pulse 95 Oximetry Chest Pain MDM <Maryana Parish - Last Filed: 04/28/25 21:57> <Ava Field - Last Filed: 04/29/25 07:26> - MDM I performed the quick note portion of this chart. Electronically signed by Maryana Parish PA-C (Maryana Parish) Was pt. sent in by a medical professional or institution ([facility] Zelaya, [employer], urgent care, hospital, or usp...) When possible be specific @ -No Did you speak to anyone other than the patient for history (EMS, parent, family, police, friend...)? What history was obtained from this source @ -No Did you review nursing and triage notes (agree or disagree)? Why? @ -I reviewed and agree with nursing and triage notes Were old charts reviewed (outside hosp., previous admission, EMS record, old EKG, old radiological studies, urgent care reports/EKG's, usp records)? Report findings @ I reviewed cardiology evaluation from this morning where they determined that the patient's symptoms were not cardiac in nature Differential Diagnosis (chest pain, altered mental status, abdominal pain women, abdominal pain men, vaginal bleeding, weakness, fever, dyspnea, syncope, headache, dizziness, GI bleed, back pain, seizure, CVA, palpatations, mental health, musculoskeletal)? @ -Differential Chest Pain: Stable Angina, Unstable Angina, STEMI, NSTEMI Aortic Dissection, Pneumothorax, Musculoskeletal, Esophageal Spasm GERD, Cholecystitis, Pancreatitis, Zoster, this is not meant to be an all-inclusive list. EKG interpreted by me (3pts min.). @ -Yes which demonstrates sinus rhythm with rate of 82. WA interval 136. QRS 112. QTc of 459. Biphasic T wave in V2. Morphology is the exact same as patient's previous EKG X-rays interpreted by me (1pt min.). @ -yes which demonstrates mild pleural effusion CT interpreted by me (1pt min.). @ -None done U/S interpreted by me (1pt. min.). @ -None done What testing was considered but not performed or refused? (CT, X-rays, U/S, labs)? Why? @ -None What meds were considered but not given or refused? Why? @ -None Did you discuss the management of the patient with other professionals (pr ofessionals i.e. , PA, [employer]ER, lab, RT, psych nurse, social work professor, compliance engineer products, teacher, career services officer, nurse case manager)? Give summary @ -No Was smoking cessation discussed for >3mins.? @ -No Was critical care preformed (if so, how long)? @ -No Were there social determinants of health that impacted care today? How? (Homelessness, low income, unemployed, alcoholism, drug addiction, transportation, low edu. Level, literacy, decrease access to med. care, halfway, rehab)? @ -No Was there de-escalation of care discussed even if they declined (Discuss DNR or withdrawal of care, Hospice)? DNR status @ -No What co-morbidities impacted this encounter? (DM, HTN, Smoking, COPD, CAD, Cancer, CVA, ARF, Chemo, Hep., AIDS, mental health diagnosis, sleep apnea, morbid obesity)? @ -Chest pain Was patient admitted / discharged? Hospital course, mention meds given and route, prescriptions, significant lab abnormalities, going to OR and other pertinent info. @ -Upon arrival patient seen and evaluated in [facility]. I reviewed the note from this morning. Laboratory studies are conducted. EKG was performed. Chest x- ray was performed. Results are discussed with the patient. He denies any symptoms to me at this time. Patient will be discharged. Instructed to follow- up with his circuit walker for his symptoms and return for any new or worsening symptoms. Patient was agreeable and he was discharged in stable condition Undiagnosed new problem with uncertain prognosis? @ -No Drug Therapy requiring intensive monitoring for toxicity (Heparin, Nitro, Insulin, Cardizem)? @ -No Were any procedures done? @ -No Diagnosis/symptom? @ -Acute on chronic chest pain Acute, or Chronic, or Acute on Chronic? @ -Acute on chronic Uncomplicated (without systemic symptoms) or Complicated (systemic symptoms)? @ -Complicated Side effects of treatment? @ -No Exacerbation, Progression, or Severe Exacerbation? @ -Yes Poses a threat to life or bodily function? How? (Chest pain, USA, SD, pneumonia, PE, COPD, DKA, ARF, appy, cholecystitis, CVA, Diverticulitis, Homicidal, Suicidal, threat to staff... and all critical care pts) @ -No (Ava Field) Disposition <Maryana Parish - Last Filed: 04/28/25 21:57> Is patient prescribed a controlled substance at d/c from ED?: No Time of Disposition: 23:04 <Ava Field - Last Filed: 04/29/25 07:26> Clinical Impression: Chest pain Disposition: HOME SELF-CARE Condition: Stable Instructions (If sedation given, give patient instructions): Chest Pain (ED) Additional Instructions: You need to follow up with your doctor for your symptoms. Return for any new or worsening symptoms. Referrals: Alexx Gee MD [Primary Care Provider] - 1-2 days
[2025-04-28 22:16] LABS: Basophils # (A) 0.04 10*3/uL (0.00-0.10); Basophils % (A) 0.6 %; Eosinophils # (A) 0.06 10*3/uL (0.04-0.35); Eosinophils % (A) 0.8 %; HCT 44.8 % (39.6-50.0); HGB 14.9 g/dL (13.0-17.0); Lymphocytes # (A) 1.23 10*3/uL (0.90-5.00); Lymphocytes % (A) 17.1 %; MCH 28.4 pg (27.0-32.0); MCHC 33.3 g/dL (32.0-37.0); MCV 85.3 fL (80.0-97.0); Mean Platelet Volume 11.8 fL (9.5-12.2); Monocytes # (A) 0.75 10*3/uL (0.20-1.00); Monocytes % (A) 10.4 %; Neutrophils # (A) 5.11 10*3/uL (1.80-7.70); Platelet Count 142 10*3/uL (140-440); RBC 5.25 10*6/uL (4.40-5.60); RDW 16.2 % (11.5-14.5)
[2025-04-28 22:26] LABS: Partial Thromboplastin Time 25.6 sec (22.0-30.0)
[2025-04-28 22:33] LABS: ALT 28 U/L (4-49); AST 33 U/L (17-59); African American GFR (CKD) >90 (>60 ml/min/1.73 sqM); Albumin 4.2 g/dL (3.5-5.0); Alkaline Phosphatase 140 U/L (38-126); Anion Gap 10 mmol/L; Blood Urea Nitrogen 14 mg/dL (9-20); Calcium 9.6 mg/dL (8.4-10.2); Carbon Dioxide 22 mmol/L (22-30); Chloride 103 mmol/L (98-107); Glucose 106 mg/dL (74-99); Magnesium 1.8 mg/dL (1.6-2.3); Non-African American GFR(CKD) 89 (>60 ml/min/1.73 sqM); Potassium 4.2 mmol/L (3.5-5.1); Sodium 135 mmol/L (137-145); Total Bilirubin 1.1 mg/dL (0.2-1.3); Total Protein 7.3 g/dL (6.3-8.2)
--- NOTE | 2025-04-28 22:59 | XR ---
EXAMINATION TYPE: XR chest 2V DATE OF EXAM: 04/28/2025 10:11 PM COMPARISON: Multiple radiographs, with the most recent on 04/28/2025, CTA chest 03/26/2025 TECHNIQUE: XR chest 2V Frontal and lateral views of the chest. CLINICAL INDICATION:Male, 70 years old with history of Chest Pain; FINDINGS: Lungs/Pleura: No pneumothorax. The left lung is clear. Similar small right pleural effusion with righ t basilar patchy airspace opacities. Pulmonary vascularity: Unremarkable. Heart/mediastinum: Cardiomediastinal silhouette is enlarged and stable. Postsurgical changes of prev ious CABG. Musculoskeletal: No acute osseous pathology. Midline sternotomy wires are noted and stable. Other: Cholecystectomy clips in right upper quadrant. IMPRESSION: Overall similar cardiomegaly and small right pleural effusion with adjacent right lower lobe airspace opacities. Probably representing atelectasis and/or pneumonia. [facility], , 04/28/2025 10:57 PM
[2025-04-28 23:46] VITALS: BP 143/86; PULSE 72; RESP 16; TEMP 98
== END 2025-04-28 23:46 | disposition home or self-care (01) ==
LOC: EC 21:48
DX: R07.9 Chest pain, unspecified (principal); F17.200 Nicotine dependence, unspecified, uncomplicated; Z91.040 Latex allergy status; Z88.8 Allergy status to other drugs, medicaments and biological substances
CPT/HCPCS: 36415; 71046; 80053; 83735; 84484; 85025; 85610; 85730; 93005; 99285